=== PATIENT | male | born 1955 | race Caucasian/White ===

== ENCOUNTER 2021-07-11 05:43 | Emergency (ER) | payer MEDICARE, SELFPAY ==
--- NOTE | ~2021-07-11 | CT_ITS ---
EXAMINATION: CT ABDOMEN AND PELVIS WITHOUT CONTRAST CLINICAL INFORMATION: Pain with new onset renal failure. COMPARISON: CT abdomen/pelvis dated from 07/14/2007. TECHNIQUE: Multidetector volumetric imaging was performed from the superior aspect of the liver through the pubic symphysis. Sagittal and coronal reformatted images were obtained on the technologist's workstation. This CT examination was performed using dose optimization techniques as appropriate, variously including the following: *Automated exposure control *Adjustment of mA and/or kV according to patient size (this includes techniques or standardized protocols for targeted exams where dose is matched to indication/reason for exam; i.e. extremities or head) *Use of iterative reconstruction technique DLP: 440 mGy-cm FINDINGS: LUNG BASES: There is a sub solid pulmonary nodule in the left lung base with a solid component measuring 4 mm (90:4). This is new since 2006. There are 2 tiny partially calcified 2 mm nodules in the right base (130:4). LIVER, GALLBLADDER, AND BILIARY TREE: The unenhanced liver is normal in size, shape, and attenuation. There is an indeterminate exophytic nodularity off the inferior surface of the right hepatic lobe measuring 8 mm (112:6) which is new since 2006. There is no biliary ductal dilatation is present. There is hyperdense material in the lumen of the gallbladder, likely representing sludge. No evidence of stones, gallbladder wall thickening, pericholecystic fat stranding or fluid. PANCREAS: Interdigitating intraparenchymal fat without focal lesions. The main pancreatic duct is nondilated. There is no surrounding free fluid and fat stranding. SPLEEN: Unremarkable. ADRENAL GLANDS: Asymmetric enlargement of the left adrenal gland without change. Normal appearance of the right adrenal gland. KIDNEYS AND URETERS: There is bilateral cortical thinning without evidence of hydronephrosis or calculi. In the anterior surface of the upper pole of the left kidney (33:3) there is unchanged prominent/outpouching of the cortex since 2006. In the lateral surface of the upper pole of the right kidney (27, 3) there is a too small to characterize hypodensity which is statistically likely to represent a cyst and requires no further workup. There is mild bilateral perinephric fat stranding. BLADDER: There is borderline diffuse urinary bladder wall thickening without focal abnormalities. There is no significant perivesical fat stranding. GASTROINTESTINAL TRACT: The stomach and the small bowel are nondilated. The appendix is unremarkable. There is no colonic wall thickening or inflammatory bowel changes. There is no bowel obstruction. ABDOMINAL WALL: There are a few soft tissue nodules in the anterior abdominal wall (48:3), possibly representing injection sites. There is no significant abdominal hernia. LYMPH NODES: A few prominent mesenteric lymph nodes measuring up to 4 mm in maximum short axis (33:3) are not significantly changed since 2006. There is no abdominal or pelvic lymphadenopathy by size criteria. A few prominent bilateral inguinal lymph nodes measuring up to 6 mm short axis (left side 79:3) are indeterminate and likely reactive. VASCULAR: There is scattered atherosclerotic disease throughout the abdominal aorta and its branches. There is no aneurysm. PELVIC VISCERA: The prostate gland is enlarged measuring 5.2 x 6.1 cm (AP and TV dimensions). OSSEOUS STRUCTURES: No acute or aggressive osseous abnormalities. Multilevel thoracolumbar spondylosis. CT/CT abdomen pelvis wo con IMPRESSION: 1. No evidence of nephrolithiasis nor hydroureteronephrosis. 2. There is diffuse wall thickening of the urinary bladder which could be related with chronic outlet obstruction in the presence of an enlarged prostate. Correlate clinically for superimposed infectious cystitis. 3. Indeterminate soft tissue nodules in the fat of the lower abdominal wall likely represent injection sites. Correlate with physical examination. 4. Indeterminate nodularity adjacent to the posterior inferior surface of the right hepatic lobe of uncertain significance. If indicated, consider further evaluation with a targeted ultrasound. 5. Incidental noted sub solid left lower lobe pulmonary nodule with a solid component measuring up to 4 mm. Recommend follow-up examination in 3-6 months with a diagnostic chest CT.
[2021-07-11 06:07] VITALS: BP 130/81; BP 170/94; PULSE 106; PULSE 95; RESP 24; TEMP 36; O2SAT 100; O2SAT 99; BMI 31.4
--- NOTE | 2021-07-11 06:46 | ED_ITS ---
HPI - Abdominal Pain General Chief Complaint: Abdominal Pain Time Seen by Provider: 07/11/21 06:36 Source: patient and EMS Mode of arrival: EMS Limitations: no limitations History of Present Illness MD elicited complaint: other (rolling sensation across body) Pertinent past history: other (neurologic undx condition) Onset (ago): year(s) (3) Pain Consistency: constant Location: LUQ and RUQ Severity: moderate Quality: aching Radiation: other (arms) Exacerbating factors: nothing Relieving factors: nothing Context: history of similar episodes (chronic x 3 years, ativan stopped working) Associated symptoms: denies other symptoms Related Data Home Medications Medication Instructions Recorded Confirmed amlodipine 2.5 mg tablet 1 tab PO DAILY 07/11/21 07/11/21 atenolol 100 mg tablet 1 tab PO DAILY 07/11/21 07/11/21 blood sugar diagnostic (FreeStyle 07/11/21 07/11/21 Lite Strips) dextroamphetamine-amphetamine 10 1 tab PO DAILY 07/11/21 07/11/21 mg tablet dextroamphetamine-amphetamine 20 1 tab PO TID 07/11/21 07/11/21 mg tablet duloxetine 60 mg capsule,delayed 1 cap PO QAM 07/11/21 07/11/21 release insulin glargine 100 unit/mL (3 70 unit SUBCUT DAILY 07/11/21 07/11/21 mL) subcutaneous pen (Lantus Solostar U-100 Insulin) levothyroxine 137 mcg tablet 1 tab PO DAILY 07/11/21 07/11/21 lisinopril 20 mg tablet 1 tab PO DAILY 07/11/21 07/11/21 lorazepam 1 mg tablet 1 tab PO TID PRN 07/11/21 07/11/21 pen needle, diabetic 31 gauge x 07/11/21 07/11/21 5/16 (BD Ultra-Fine Short Pen Needle) quetiapine 25 mg tablet 1 tab PO BEDTIME 07/11/21 07/11/21 Allergies Allergy/AdvReac Type Severity Reaction Status Date / Time Penicillins [PENICILLINS] Allergy Unknown RASH Verified 07/11/21 06:26 tramadol [From ULTRAM] Allergy Unknown RASH Verified 07/11/21 06:26 trazodone [TRAZODONE] Allergy Unknown PRIAPISM Verified 07/11/21 06:26 risperidone [RISPERIDONE] AdvReac Severe dizzy, EPS Verified 07/11/21 06:26 Review of Systems Review of Systems Constitutional : No Weight loss, No Fever, No Chills ENT/Mouth : No sore throat, No Rhinorrhea Eyes: No Swelling, No Redness Cardiovascular : No Chest Pain, No SOB, NoEdema Respiratory : No Cough, No Sputum, No Wheezing Gastrointestinal : no Nausea, no Vomiting, no Diarrhea, positive abdominal Pain, No Hematochezia, No Melena Genitourinary : No Dysuria, No Urinary Frequency, No Hematuria, No Urgency Musculoskeletal : No joint pain, No Myalgias, No Joint Swelling Skin : No Skin Lesions, No rash Neuro : No Weakness, No Numbness, No Dizziness, No Headache, pos rolling sensation Psych : No Anxiety/Panic, No Depression Heme/Lymph: No Bruising, No Lymphadenopathy Endocrine : No Polyuria, No Polydipsia All other systems reviewed and are negative. Physical Exam Vital Signs: Vital Signs: Last Vital Signs Temp 96.9 F 07/11/21 10:52 Pulse 100 07/11/21 10:52 Resp 19 07/11/21 10:52 BP 163/88 H 07/11/21 10:52 Pulse Ox 99 07/11/21 10:52 Body Mass Index 31.4 Appearance: Alert. Oriented X3. No acute distress. Anxious Eyes: Pupils equal, round and reactive to light. ENT: Pharynx normal. Neck: Normal inspection. Neck supple. CVS: Normal heart rate and rhythm. Pulses normal. Respiratory: No respiratory distress. Breath sounds normal. Abdomen: Soft and nontender. Skin: Skin warm and dry. Normal skin color. Normal skin turgor. Extremities: No lower extremity edema. No calf ttp Neuro: Oriented X 3. No motor deficit. No sensory deficit. Course Course Course Narrative: I initially thought that the patient was here looking for help and trying new medications for his neurological issue - he is now screaming at the staff because he was ordered benadryl and zyprexa instead of ativan. I spoke very firmly with the patient and told him we will try the bendaryl and zyprexa and that he stated ativan doesn't help him the patient is now intermittently crying, then seems okay, he is rapidly fluct uating in his emotions - consult to CARE team ordered. labs returned - increase in CKD - call to she is unsure of baseline CKD - notes labs done at [facility] will call for records, given labs I have added on fluids, additional labs, CT scan for obstruction Cr 2.9 on 07/11/21 at [facility] will admit for DONIS on CKD possible cystitis - t this time possible infection suspected 1150am - IV rocephin ordered patient aware of DONIS on CKD and possible UTI, he is going to be admitted and agrees patient had to wait a little bit for ativan for another episode he became very upset and demanded to leave he is alert and oriented x 3, walked out with a steady gait, would not wait for instructions MDM - Abdominal Pain MDM Narrative Medical decision making narrative: 66 yo male with DM, anxiety, here with neur ologic condition being worked up at [facility] x 3 years - relates something about 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 At this time he has no new symptoms or changes just looking for anxiolytic medications to help him sleep. Will try benadryl and zyprexa - obtain basic labs. Lab Data Result diagrams: 07/11/21 08:10 07/11/21 08:10 Labs: Lab Results 07/11/21 07/11/21 07/11/21 Range/Units 08:10 08:10 09:19 WBC 15.8 H (4.8-10.8) X10*3/uL RBC 4.87 (4.60-5.80) X10*6/uL Hgb 14.1 (14.0-18.0) g/dl Hct 41.2 L (42-52) % MCV 84.6 (80-98) fL MCH 29.0 (27.0-33.0) pg MCHC 34.2 (31.0-36.0) g/dl RDW 14.6 (11.0-16.0) % Plt Count 418 H (160-400) X10*3/uL MPV 10.0 (9.4-12.4) fL Immature Gran % (Auto) 0.4 (0.0-0.4) % Neut % (Auto) 75.9 H (45-73) % Lymph % (Auto) 15.1 L (20-40) % [place] % (Auto) 6.6 (2-11) % Eos % (Auto) 1.2 (0-4) % Baso % (Auto) 0.8 (0-2) % Lymph # (Auto) 2.4 (1.2-4.9) X10*3/uL [place] # (Auto) 1.1 (0.1-1.2) X10*3/uL Eos # (Auto) 0.2 (0.0-0.4) X10*3/uL Baso # (Auto) 0.1 (0.0-0.2) X10*3/uL Abs Immat Gran (auto) 0.07 H (0.00-0.03) X10*3/uL Absolute Neuts (auto) 12.0 H (2.0-8.3) X10*3/uL Absolute Nucleated RBC 0.000 (0.0-0.012) X10*3/uL Nucleated RBC % (auto) 0.0 (0.0-0.2) /100WBC VBG pH (7.32-7.43) VBG pCO2 mmHg VBG pO2 mmHg VBG HCO3 (22-26) mmol/L VBG O2 Saturation % VBG Base Excess mmol/L Sodium 138 (135-145) mmol/L Potassium 6.4 H* (3.3-5.1) mmol/L Chloride 107 (96-108) mmol/L Carbon Dioxide 15 L (22-29) mmol/L Anion Gap 22 H (12-20) BUN 39 H (9-16) mg/dL Creatinine 3.79 H (0.5-1.4) mg/dL Estim Creat Clear Calc 20.3 Estimated GFR 16 Random Glucose 118 H (60-115) mg/dL Lactic Acid (0.5-2.0) mmol/L Calcium 9.5 (8.4-10.2) mg/dL Magnesium 2.1 (1.6-2.6) mg/dL Total Bilirubin 0.7 (0.0-1.0) mg/dL Direct Bilirubin 0.2 (0.0-0.5) mg/dL AST 13 (5-37) U/L ALT 6 (0-40) U/L Alkaline Phosphatase 113 (39-117) U/L Total Creatine Kinase 42 (38-174) U/L Total Protein 7.4 (6.5-8.0) g/dL Albumin 4.5 (3.5-5.0) g/dL Lipase 31 (8-78) U/L Urine Color Urine Appearance Urine pH (5.0-8.0) Ur Specific [place] (1.005-1.025) Urine Protein (NEG-TRACE) MG/DL Urine Glucose (UA) (NEG) MG/DL Urine Ketones (NEG) MG/DL Urine Blood (NEG) Urine Nitrite (NEG) Ur Leukocyte Esterase (NEG) Urine RBC (0) /HPF Urine WBC (0-4) /HPF Ur Squamous Epith Cells /LPF Urine Bacteria /LPF Granular Casts /LPF Salicylates < 5.0 L (15-30) mg/dL Ethyl Alcohol mg/dL Acetone, Qual (Negative) COVID-19 (SUNITHA) (Negative) COVID-19 Clin Com 07/11/21 07/11/21 07/11/21 Range/Units 09:19 09:19 09:19 WBC (4.8-10.8) X10*3/uL RBC (4.60-5.80) X10*6/uL Hgb (14.0-18.0) g/dl Hct (42-52) % MCV (80-98) fL MCH (27.0-33.0) pg MCHC (31.0-36.0) g/dl RDW (11.0-16.0) % Plt Count (160-400) X10*3/uL MPV (9.4-12.4) fL Immature Gran % (Auto) (0.0-0.4) % Neut % (Auto) (45-73) % Lymph % (Auto) (20-40) % [place] % (Auto) (2-11) % Eos % (Auto) (0-4) % Baso % (Auto) (0-2) % Lymph # (Auto) (1.2-4.9) X10*3/uL [place] # (Auto) (0.1-1.2) X10*3/uL Eos # (Auto) (0.0-0.4) X10*3/uL Baso # (Auto) (0.0-0.2) X10*3/uL Abs Immat Gran (auto) (0.00-0.03) X10*3/uL Absolute Neuts (auto) (2.0-8.3) X10*3/uL Absolute Nucleated RBC (0.0-0.012) X10*3/uL Nucleated RBC % (auto) (0.0-0.2) /100WBC VBG pH (7.32-7.43) VBG pCO2 mmHg VBG pO2 mmHg VBG HCO3 (22-26) mmol/L VBG O2 Saturation % VBG Base Excess mmol/L Sodium (135-145) mmol/L Potassium (3.3-5.1) mmol/L Chloride (96-108) mmol/L Carbon Dioxide (22-29) mmol/L Anion Gap (12-20) BUN (9-16) mg/dL Creatinine (0.5-1.4) mg/dL Estim Creat Clear Calc Estimated GFR Random Glucose (60-115) mg/dL Lactic Acid 2.0 (0.5-2.0) mmol/L Calcium (8.4-10.2) mg/dL Magnesium (1.6-2.6) mg/dL Total Bilirubin (0.0-1.0) mg/dL Direct Bilirubin (0.0-0.5) mg/dL AST (5-37) U/L ALT (0-40) U/L Alkaline Phosphatase (39-117) U/L Total Creatine Kinase (38-174) U/L Total Protein (6.5-8.0) g/dL Albumin (3.5-5.0) g/dL Lipase (8-78) U/L Urine Color Urine Appearance Urine pH (5.0-8.0) Ur Specific [place] (1.005-1.025) Urine Protein (NEG-TRACE) MG/DL Urine Glucose (UA) (NEG) MG/DL Urine Ketones (NEG) MG/DL Urine Blood (NEG) Urine Nitrite (NEG) Ur Leukocyte Esterase (NEG) Urine RBC (0) /HPF Urine WBC (0-4) /HPF Ur Squamous Epith Cells /LPF Urine Bacteria /LPF Granular Casts /LPF Salicylates (15-30) mg/dL Ethyl Alcohol < 10 mg/dL Acetone, Qual Negative (Negative) COVID-19 (SUNITHA) (Negative) COVID-19 Clin Com 09/23/21 09/23/21 09/23/21 Range/Units 09:30 09:57 11:05 WBC (4.8-10.8) X10*3/uL RBC (4.60-5.80) X10*6/uL Hgb (14.0-18.0) g/dl Hct (42-52) % MCV (80-98) fL MCH (27.0-33.0) pg MCHC (31.0-36.0) g/dl RDW (11.0-16.0) % Plt Count (160-400) X10*3/uL MPV (9.4-12.4) fL Immature Gran % (Auto) (0.0-0.4) % Neut % (Auto) (45-73) % Lymph % (Auto) (20-40) % [place] % (Auto) (2-11) % Eos % (Auto) (0-4) % Baso % (Auto) (0-2) % Lymph # (Auto) (1.2-4.9) X10*3/uL [place] # (Auto) (0.1-1.2) X10*3/uL Eos # (Auto) (0.0-0.4) X10*3/uL Baso # (Auto) (0.0-0.2) X10*3/uL Abs Immat Gran (auto) (0.00-0.03) X10*3/uL Absolute Neuts (auto) (2.0-8.3) X10*3/uL Absolute Nucleated RBC (0.0-0.012) X10*3/uL Nucleated RBC % (auto) (0.0-0.2) /100WBC VBG pH 7.35 (7.32-7.43) VBG pCO2 27 mmHg VBG pO2 46 mmHg VBG HCO3 15 L (22-26) mmol/L VBG O2 Saturation 74.0 % VBG Base Excess -8.6 mmol/L Sodium (135-145) mmol/L Potassium (3.3-5.1) mmol/L Chloride (96-108) mmol/L Carbon Dioxide (22-29) mmol/L Anion Gap (12-20) BUN (9-16) mg/dL Creatinine (0.5-1.4) mg/dL Estim Creat Clear Calc Estimated GFR Random Glucose (60-115) mg/dL Lactic Acid (0.5-2.0) mmol/L Calcium (8.4-10.2) mg/dL Magnesium (1.6-2.6) mg/dL Total Bilirubin (0.0-1.0) mg/dL Direct Bilirubin (0.0-0.5) mg/dL AST (5-37) U/L ALT (0-40) U/L Alkaline Phosphatase (39-117) U/L Total Creatine Kinase (38-174) U/L Total Protein (6.5-8.0) g/dL Albumin (3.5-5.0) g/dL Lipase (8-78) U/L Urine Color YELLOW Urine Appearance CLEAR Urine pH 6.0 (5.0-8.0) Ur Specific [place] 1.025 (1.005-1.025) Urine Protein 3+ H (NEG-TRACE) MG/DL Urine Glucose (UA) NEG (NEG) MG/DL Urine Ketones 15 (NEG) MG/DL Urine Blood TRACE (NEG) Urine Nitrite NEG (NEG) Ur Leukocyte Esterase NEG (NEG) Urine RBC 0-2 (0) /HPF Urine WBC 1-4 (0-4) /HPF Ur Squamous Epith Cells 1+ /LPF Urine Bacteria NONE /LPF Granular Casts 0-2 /LPF Salicylates (15-30) mg/dL Ethyl Alcohol mg/dL Acetone, Qual (Negative) COVID-19 (SUNITHA) Negative (Negative) COVID-19 Clin Com See Note ECG Data Attestation: I personally reviewed and interpreted this ECG as follows: ECG interpretation date: 07/11/21 ECG interpretation time: 09:35 Interpretation: Rate: 94 Rhythm: NSR Reyno: left Normal P waves. Normal FILEMON. Normal QRS complex. ST T wave : normal no LUANN qTC: normal prior studies: no acute ischemia The study has been interpreted contemporaneously by me. . Discharge Plan Discharge Clinical Impression: Hallucinations of tactile sensation, Acute kidney injury superimposed on chronic kidney disease, Acute hyperkalemia, Cystitis Patient Disposition: Left Against Medical Advice Instructions: Nonpsychiatric Hallucinations (ED) Additional Instructions: return to ED for any worsening symptoms or concerns follow up with your provider tomorrow Prescriptions: No Action quetiapine 25 mg tablet 1 tab PO BEDTIME RF: 0 levothyroxine 137 mcg tablet 1 tab PO DAILY RF: 0 atenolol 100 mg tablet 1 tab PO DAILY RF: 0 lisinopril 20 mg tablet 1 tab PO DAILY RF: 0 dextroamphetamine-amphetamine 10 mg tablet 1 tab PO DAILY RF: 0 amlodipine 2.5 mg tablet 1 tab PO DAILY RF: 0 (DME) FreeStyle Lite Strips Strip MISCELLANEOUS TID RF: 0 dextroamphetamine-amphetamine 20 mg tablet 1 tab PO TID RF: 0 lorazepam 1 mg tablet 1 tab PO TID PRN (Reason: Anxiety) RF: 0 (DME) pen needle, diabetic [BD Ultra-Fine Short Pen Needle] 31 gauge x 5/16 needle subcut DAILY RF: 0 duloxetine 60 mg capsule,delayed release(DR/EC) 1 cap PO QAM RF: 0 Lantus Solostar U-100 Insulin 100 unit/mL (3 mL) insulin pen 70 unit subcut DAILY RF: 0 Stand Alone Forms: Against Medical Advice [facility] Past Medical History Attestation statement: The following information was validated with the patient. Medical History Diabetes HTN (hypertension) Kidney failure Social History Social History Alcohol intake: never Patient Tobacco Use Status: Never used Tobacco Use of substances other than those prescribed or required for medical reasons: Yes Advance Directives: No Advance Directives Information Provided: No
[2021-07-11] MEDS: diphenhydrAMINE HCL 25 MG TABLET PO (07:24)
[2021-07-11] MEDS: OLANZapine 5 MG TABLET PO (07:24)
[2021-07-11 08:30] LABS: MANUAL DIFF FLAG NO
[2021-07-11 08:33] LABS: Basophils Absolute Auto 0.1 X10*3/uL (0.0-0.2); Basophils Percent Auto 0.8 % (0-2); Eosinophils Absolute Auto 0.2 X10*3/uL (0.0-0.4); Eosinophils Percent Auto 1.2 % (0-4); Hematocrit 41.2 % (42-52); Hemoglobin 14.1 g/dl (14.0-18.0); Imm Gran Abs Auto 0.07 X10*3/uL (0.00-0.03); Imm Gran Pct Auto 0.4 % (0.0-0.4); Lymphocytes Absolute Auto 2.4 X10*3/uL (1.2-4.9); Lymphocytes Percent Auto 15.1 % (20-40); Mean Corpuscular HGB Conc 34.2 g/dl (31.0-36.0); Mean Corpuscular Volume 84.6 fL (80-98); Monocytes Absolute Auto 1.1 X10*3/uL (0.1-1.2); Monocytes Percent Auto 6.6 % (2-11); Neutrophils Percent Auto 75.9 % (45-73); Platelet Count 418 X10*3/uL (160-400); Red Blood Count 4.87 X10*6/uL (4.60-5.80); Red Cell Distribution Width 14.6 % (11.0-16.0); White Blood Count 15.8 X10*3/uL (4.8-10.8)
[2021-07-11 09:02] LABS: Alanine Aminotransferase 6 U/L (0-40); Albumin Level 4.5 g/dL (3.5-5.0); Alkaline Phosphatase 113 U/L (39-117); Anion Gap 22 (12-20); Aspartate Amino Transferase 13 U/L (5-37); Bilirubin Direct 0.2 mg/dL (0.0-0.5); Bilirubin Total 0.7 mg/dL (0.0-1.0); Blood Urea Nitrogen 39 mg/dL (9-16); Calcium 9.5 mg/dL (8.4-10.2); Carbon Dioxide 15 mmol/L (22-29); Chloride 107 mmol/L (96-108); Creatinine Clr Calc Pharmacy 20.3; Estimated Glomerular Filt Rate 16; Glucose Random 118 mg/dL (60-115); Lipase 31 U/L (8-78); Magnesium 2.1 mg/dL (1.6-2.6); Potassium 6.4 mmol/L (3.3-5.1); Sodium 138 mmol/L (135-145); Total Protein 7.4 g/dL (6.5-8.0)
--- NOTE | 2021-07-11 09:10 | ECG_ITS ---
Test Reason : GENERAL MEDICINE Blood Pressure : / mmHG Vent. Rate : 094 BPM Atrial Rate : 094 BPM P-R Int : 140 ms QRS Dur : 078 ms QT Int : 364 ms P-R-T Axes : 027 -08 021 degrees QTc Int : 455 ms Normal sinus rhythm Normal ECG When compared with ECG of 06-JUN-2015 17:56, No significant change was found Referred By: Theresa Solorio Electronically Signed By:MAO KATHLEEN
[2021-07-11 09:34] LABS: VBG Base Excess -8.6 mmol/L; VBG HCO3 15 mmol/L (22-26); VBG pCO2 27 mmHg; VBG pH 7.35 (7.32-7.43); VBG pO2 46 mmHg
[2021-07-11 09:36] LABS: Venous Blood Gas Refer to POC result
[2021-07-11 09:41] LABS: Acetone, serum QL Negative (Negative)
[2021-07-11 09:45] LABS: Ethanol < 10 mg/dL
[2021-07-11 09:53] LABS: Salicylate < 5.0 mg/dL (15-30)
[2021-07-11 10:26] LABS: COVID-19 Test Negative (Negative)
[2021-07-11] MEDS: Calcium Gluconate/NaCl,Iso-Osm 2 GM/100 ML PLAST..BAG IV (10:35)
[2021-07-11] MEDS: 0.9 % Sodium Chloride 1,000 ML 999 ML IV ×2 (10:35→10:36)
[2021-07-11 10:52] VITALS: BP 163/88; PULSE 100; RESP 19; TEMP 36.1; O2SAT 99
[2021-07-11 11:15] LABS: Appearance Urine CLEAR; Color Urine YELLOW; Glucose Urine UA NEG (NEG); Leukocyte Esterase Urine NEG (NEG); Nitrite Urine NEG (NEG); Specific Gravity - Urine 1.025 (1.005-1.025); UACC Culture Trigger NO; Urine Blood TRACE (NEG); Urine Ketones 15 MG/DL (NEG); Urine Protein 3+ MG/DL (NEG-TRACE)
[2021-07-11 12:16] LABS: RBC Urine 0-2 /HPF (0); Squamous Epithelial Cell Urine 1+ /LPF
[2021-07-11 12:17] LABS: Granular Casts Urine 0-2 /LPF
[2021-07-11] MEDS: Sodium Zirconium Cyclosilicate 5 GM POWD.PACK PO (12:23)
== END 2021-07-11 12:56 | disposition left against medical advice (07) ==
PROVIDERS: Emergency Provider Emergency Medicine; PCP Family Medicine
DX: R44.2 Other hallucinations (principal); N18.9 Chronic kidney disease, unspecified; E87.5 Hyperkalemia; R10.12 Left upper quadrant pain; R10.11 Right upper quadrant pain; Z20.822 Contact with and (suspected) exposure to COVID-19; Z79.899 Other long term (current) drug therapy
CPT/HCPCS: 36415; 74176; 80048; 80076; 80179; 81001; 82009; 82077; 82550; 82803; 83605; 83690; 83735; 85025; 87040; 87635; 93005; 96361; 96365; 96366; 99284; J0610; Q0163

== ENCOUNTER 2023-09-03 02:17 | Inpatient (IN) | payer MEDICARE, SELFPAY ==
[2023-09-03] VITALS (15 sets, daily range): BP systolic 133–185; BP diastolic 62–106; PULSE 68–97; RESP 14–32; TEMP 36.3–37.5; O2SAT 95–100; BMI 31.1; BMI 31.9
--- NOTE | ~2023-09-03 | XR_ITS ---
EXAMINATION: XR CHEST CLINICAL INFORMATION: Shortness of breath. COMPARISON: None available. TECHNIQUE: Frontal view of the chest was obtained. FINDINGS: The cardiomediastinal silhouette is normal. There is mild perihilar increased markings. There is a questionable opacity overlying the right upper lung field and anterior right first rib. The lungs are otherwise clear. The bony structures and soft tissues are unremarkable. XR/XR chest 1V IMPRESSION: Mild perihilar increased markings may be chronic versus related to bronchitis. Questionable right upper lobe opacity along the anterior right rib. Recommend a dedicated PA and lateral chest with apical lordotic views.
--- NOTE | ~2023-09-03 | XR_ITS ---
EXAMINATION: XR CHEST CLINICAL INFORMATION: Questionable upper lobe opacity COMPARISON: CXR from 09/03/2023 TECHNIQUE: 2 views of the chest were obtained. FINDINGS: Lungs are clear. No pulmonary mass or pleural effusion. The right diaphragm is mildly elevated. Cardiac silhouette has normal size and contour. Pulmonary vascular pattern is normal. There is symmetric appearance of mild osseous hypertrophy at anterior first ribs. No suspicious osseous lesions. XR/XR chest 2V IMPRESSION: No evidence of a right upper lobe pulmonary abnormality.
--- NOTE | 2023-09-03 02:26 | ECG_ITS ---
Test Reason : SHORTNESS OF BREATH Blood Pressure : / mmHG Vent. Rate : 091 BPM Atrial Rate : 091 BPM P-R Int : 152 ms QRS Dur : 090 ms QT Int : 378 ms P-R-T Axes : 034 -34 045 degrees QTc Int : 464 ms Normal sinus rhythm Left anterior fascicular block Intra-ventricular conduction delay Nonspecific ST abnormality Abnormal ECG When compared with ECG of 11-JUL-2021 09:29, Left anterior fascicular block is new Nonspecific ST abnormality is new Referred By: Karime Greenfield Electronically Signed By:SANTOS JETT MD
--- NOTE | 2023-09-03 02:47 | PC.NURSE ---
Assumed care of pt. Pt endorsing dyspnea x 5 days, worse this pm. Titrated EMS O2 down from 4L to 2L with good efffect. Labs, IV, CXR all without complication at this time.
[2023-09-03 02:54] LABS: MANUAL DIFF FLAG NO
[2023-09-03 02:56] LABS: Basophils Absolute Auto 0.1 X10*3/uL (0.0-0.2); Basophils Percent Auto 0.4 % (0-2); Eosinophils Percent Auto 0.3 % (0-4); Hematocrit 30.9 % (42.0-52.0); Hemoglobin 10.6 g/dl (14.0-18.0); Imm Gran Abs Auto 0.06 X10*3/uL (0.00-0.03); Imm Gran Pct Auto 0.4 % (0.0-0.4); Lymphocytes Absolute Auto 0.7 X10*3/uL (1.2-4.9); Lymphocytes Percent Auto 4.8 % (20-40); Mean Corpuscular HGB Conc 34.3 g/dl (31.0-36.0); Mean Corpuscular Volume 93.4 fL (80.0-98.0); Mean Platelet Volume 10.1 fL (9.4-12.4); Monocytes Percent Auto 7.3 % (2-11); Neutrophils Absolute Auto 12.2 x10*3/uL (2.0-8.3); Neutrophils Percent Auto 86.8 % (45-73); Platelet Count 169 X10*3/uL (160-400); Red Blood Count 3.31 X10*6/uL (4.60-5.80); Red Cell Distribution Width 13.5 % (11.0-16.0)
--- NOTE | 2023-09-03 03:00 | ED.SOB ---
HPI - SOB/Dyspnea General Chief Complaint: Dyspnea Stated Complaint: sob Time Seen by Provider: 09/03/23 02:26 Source: patient Mode of arrival: EMS History of Present Illness HPI Narrative: 68-year-old male who is brought in by EMS for worsening shortness of breath since Thursday. Patient is end-stage renal disease and currently is supposed to be receiving dialysis Thursday/Thursday / Thursday but states he is missed the last 3 appointments due to chronic pain. He denies any nausea, vomiting, fever or chills. Related Data Home Medications Medication Instructions Recorded Confirmed amlodipine 2.5 mg tablet 1 tab PO DAILY 07/11/21 07/11/21 atenolol 100 mg tablet 1 tab PO DAILY 07/11/21 07/11/21 blood sugar diagnostic (FreeStyle 07/11/21 07/11/21 Lite Strips) dextroamphetamine-amphetamine 10 1 tab PO DAILY 07/11/21 07/11/21 mg tablet dextroamphetamine-amphetamine 20 1 tab PO TID 07/11/21 07/11/21 mg tablet duloxetine 60 mg capsule,delayed 1 cap PO QAM 07/11/21 07/11/21 release insulin glargine 100 unit/mL (3 70 unit subcut DAILY 07/11/21 07/11/21 mL) subcutaneous pen (Lantus Solostar U-100 Insulin) levothyroxine 137 mcg tablet 1 tab PO DAILY 07/11/21 07/11/21 lisinopril 20 mg tablet 1 tab PO DAILY 07/11/21 07/11/21 lorazepam 1 mg tablet 1 tab PO TID PRN Anxiety 07/11/21 07/11/21 pen needle, diabetic 31 gauge x 07/11/21 07/11/21 5/16 (BD Ultra-Fine Short Pen Needle) quetiapine 25 mg tablet 1 tab PO BEDTIME 07/11/21 07/11/21 Allergies Allergy/AdvReac Type Severity Reaction Status Date / Time Penicillins [PENICILLINS] Allergy Unknown RASH Verified 07/11/21 06:26 tramadol [From ULTRAM] Allergy Unknown RASH Verified 07/11/21 06:26 trazodone [TRAZODONE] Allergy Unknown PRIAPISM Verified 07/11/21 06:26 risperidone [RISPERIDONE] AdvReac Severe dizzy, EPS Verified 07/11/21 06:26 Review of Systems Review of Systems: Pertinent positives and negatives as stated in HPI [facility] Past Medical History Source: nursing notes reviewed Medical History Diabetes Kidney failure HTN (hypertension) Social History Social History Alcohol intake: never Patient Tobacco Use Status: Never used Tobacco Smoked in Last 30 Days: No Use of substances other than those prescribed or required for medical reasons: No Advance Directives: No Advance Directives Information Provided: Yes Physical Exam Vital Signs: Vital Signs: Last Vital Signs Temp 99.5 F 09/03/23 02:31 Pulse 94 09/03/23 02:31 Resp 18 09/03/23 02:31 Pulse Ox 99 09/03/23 02:31 O2 Del Method Nasal Cannula 09/03/23 02:31 Oxygen Flow Rate 2 09/03/23 02:31 BMI result Body Mass Index 31.1 VITAL SIGNS: Reviewed. GENERAL: Well developed, well nourished, in no acute distress. HEAD: Normocephalic/atraumatic EYES: PERRLA, EOMI EARS: Ext canals without abnormality NOSE: Nares patent bilateral OROPHARYNX: no oral lesions noted, posterior pharynx clear NECK: Supple, no adenopathy LUNGS: Normal breath sounds. No adventitious sounds or accessory muscle use. SpO2<99> CARDIOVASCULAR: Regular rate and rhythm without noted murmurs, no JVD or lower extremity edema. ABDOMEN: Soft, non-tender, non-distended with bowel sounds. MUSCULOSKELETAL: No tenderness, deformities, or effusions noted on gross inspection. EXTREMITIES: No cyanosis, clubbing or edema. SKIN: Inspection of the skin reveals no rashes NEUROLOGIC: Alert and oriented x 4. Strength and sensation to light touch were grossly intact x 4. Medications Administered Discontinued Medications Generic Name Dose Route Start Last Admin Trade Name Freq PRN Reason Stop Dose Admin Calcium Gluconate 2 gm in 100 mls @ 400 mls/hr 09/03/23 03:51 09/03/23 04:03 Calcium Gluconate IV 09/03/23 04:05 400 mls/hr ONCE ONE Administration Medical Decision Making Medical Decision Making MDM Narrative: 68-year-old male with history and clinical presentation, DDX: pulmonary edema secondary to poor compliance with dialysis schedule, pneumonia, but doubt ACS I reviewed all investigations and hematologic indices are consistent with a baseline leukocytosis, patient is afebrile and I do not appreciate any acute findings on chest x-ray to suggest pneumonia. Patient does have a normocytic anemia that is attributable to anemia of chronic disease (ESRD ) as there is no history and no clinical findings to otherwise suggest a current bleeding source. coagulation studies demonstrated PT-13.5 but in INR within normal limits. Chemistry and sees consistent with evidence to suggest mild dehydration, patient's potassium is significantly elevated at 7 with a creatinine of 16.73 and a BUN of 118 clearly demonstrating the degree of derangement secondary to missing 3 sessions of dialysis. high sensitivity troponin although detectable in elevated at 58.4, patient does not describe chest pain and I do not find any acute changes on the EKG and suspect that this is a reflection of patient's worsening kidney function. There is no sepsis, there is no infection. Do not appreciate an infiltrate on chest x-ray and patient is afebrile. 0352: Contacting Nephrology, patient's nursing consultant is Dr. Ulloa, for urgent dialysis, in the meantime will provide calcium gluconate. 0400: I discussed with comprehensive ophthalmologist who accepts admission. Differential Diagnosis Differential Diagnoses: The differential diagnosis associated with the presentation includes please see the discussion above Admission/Observation Consideration of admission/observation: Escalation of care including admission/observation considered please see the discussion above Consult Healthcare Provider Management of the patient was discussed with: Psychiatric Technician Assistant Please see the discussion above Lab Data MDM Lab Attestation statement: I reviewed the patient's lab results. please see the discussion above 09/03/23 02:46 09/03/23 02:45 Labs: Lab Results 09/03/23 09/03/23 09/03/23 Range/Units 02:45 02:46 02:47 WBC 14.0 H (4.8-10.8) X10*3/uL RBC 3.31 L (4.60-5.80) X10*6/uL Hgb 10.6 L (14.0-18.0) g/dl Hct 30.9 L (42.0-52.0) % MCV 93.4 (80.0-98.0) fL MCH 32.0 (27.0-33.0) pg MCHC 34.3 (31.0-36.0) g/dl RDW 13.5 (11.0-16.0) % Plt Count 169 (160-400) X10*3/uL MPV 10.1 (9.4-12.4) fL Immature Gran % (Auto) 0.4 (0.0-0.4) % Neut % (Auto) 86.8 H (45-73) % Lymph % (Auto) 4.8 L (20-40) % [place] % (Auto) 7.3 (2-11) % Eos % (Auto) 0.3 (0-4) % Baso % (Auto) 0.4 (0-2) % Lymph # (Auto) 0.7 L (1.2-4.9) X10*3/uL [place] # (Auto) 1.0 (0.1-1.2) X10*3/uL Eos # (Auto) 0.0 (0.0-0.4) X10*3/uL Baso # (Auto) 0.1 (0.0-0.2) X10*3/uL Abs Immat Gran (auto) 0.06 H (0.00-0.03) X10*3/uL Absolute Neuts (auto) 12.2 H (2.0-8.3) x10*3/uL Absolute Nucleated RBC 0.000 (0.0-0.012) X10*3/uL Nucleated RBC % (auto) 0.0 (0.0-0.2) /100WBC PT 13.5 H (11.1-13.3) SEC INR 1.1 (0.9-1.1) Sodium 134 L (135-145) mmol/L Potassium 7.0 H* (3.3-5.1) mmol/L Chloride 95 L (96-108) mmol/L Carbon Dioxide 17 L (22-29) mmol/L Anion Gap 29 H (12-20) BUN 118 H (9-16) mg/dL Creatinine 16.73 H* (0.5-1.4) mg/dL Estim Creat Clear Calc 4.4 Estimated GFR 3 Random Glucose 106 (60-115) mg/dL Lactic Acid 1.3 (0.5-2.0) mmol/L Calcium 9.1 (8.4-10.2) mg/dL Total Bilirubin 1.1 H (0.0-1.0) mg/dL AST 18 (5-37) U/L ALT 8 (0-40) U/L Alkaline Phosphatase 61 (39-117) U/L Troponin I High Sens 58.4 H (<3.5-35.0) ng/L Total Protein 7.7 (6.5-8.0) g/dL Albumin 4.3 (3.5-5.0) g/dL Influenza Type A (PCR) (Negative) Influenza Type B (PCR) (Negative) RSV RNA Qual (PCR) (Negative) SARS-CoV-2 RNA (RT-PCR) (Negative) 09/03/23 Range/Units 02:49 WBC (4.8-10.8) X10*3/uL RBC (4.60-5.80) X10*6/uL Hgb (14.0-18.0) g/dl Hct (42.0-52.0) % MCV (80.0-98.0) fL MCH (27.0-33.0) pg MCHC (31.0-36.0) g/dl RDW (11.0-16.0) % Plt Count (160-400) X10*3/uL MPV (9.4-12.4) fL Immature Gran % (Auto) (0.0-0.4) % Neut % (Auto) (45-73) % Lymph % (Auto) (20-40) % [place] % (Auto) (2-11) % Eos % (Auto) (0-4) % Baso % (Auto) (0-2) % Lymph # (Auto) (1.2-4.9) X10*3/uL [place] # (Auto) (0.1-1.2) X10*3/uL Eos # (Auto) (0.0-0.4) X10*3/uL Baso # (Auto) (0.0-0.2) X10*3/uL Abs Immat Gran (auto) (0.00-0.03) X10*3/uL Absolute Neuts (auto) (2.0-8.3) x10*3/uL Absolute Nucleated RBC (0.0-0.012) X10*3/uL Nucleated RBC % (auto) (0.0-0.2) /100WBC PT (11.1-13.3) SEC INR (0.9-1.1) Sodium (135-145) mmol/L Potassium (3.3-5.1) mmol/L Chloride (96-108) mmol/L Carbon Dioxide (22-29) mmol/L Anion Gap (12-20) BUN (9-16) mg/dL Creatinine (0.5-1.4) mg/dL Estim Creat Clear Calc Estimated GFR Random Glucose (60-115) mg/dL Lactic Acid (0.5-2.0) mmol/L Calcium (8.4-10.2) mg/dL Total Bilirubin (0.0-1.0) mg/dL AST (5-37) U/L ALT (0-40) U/L Alkaline Phosphatase (39-117) U/L Troponin I High Sens (<3.5-35.0) ng/L Total Protein (6.5-8.0) g/dL Albumin (3.5-5.0) g/dL Influenza Type A (PCR) NEGATIVE (Negative) Influenza Type B (PCR) NEGATIVE (Negative) RSV RNA Qual (PCR) NEGATIVE (Negative) SARS-CoV-2 RNA (RT-PCR) NEGATIVE (Negative) Independent Interpretation I performed an independent interpretation of an: EKG Interpretation: normal sinus rhythm, HR - 91, no STEMI, RI/QRS /QTC is within normal limits. Radiology Impression Discussion of test interpretation with radiology: I have reviewed the radiologist's reading. Radiologist Impression: please see the discussion above External Record Review External record reviewed: Outpatient record, Prior outpatient labs and Prior outpatient radiology Chronic Conditions Patient?s care impacted by: Diabetes, Hypertension and Other ESRD on dialysis Critical Care Time Critical Care Time Critical Care Time: Yes Total Critical Care Time: 60 Attestation: I personally attest to this time spent taking care of the patient. Discharge Plan Discharge Clinical Impression: DONIS (acute kidney injury), Hyperkalemia, Dyspnea, ESRD needing dialysis Patient Disposition: Admitted As Inpatient
[2023-09-03 03:01] LABS: INTERNATIONAL NORM RATIO 1.1 (0.9-1.1); Prothrombin Time 13.5 SEC (11.1-13.3)
[2023-09-03 03:10] LABS: Lactic Acid 1.3 mmol/L (0.5-2.0)
[2023-09-03 03:17] LABS: Troponin-I High Sensitivity 58.4 ng/L (<3.5-35.0)
[2023-09-03 03:24] LABS: Alanine Aminotransferase 8 U/L (0-40); Albumin Level 4.3 g/dL (3.5-5.0); Alkaline Phosphatase 61 U/L (39-117); Anion Gap 29 (12-20); Aspartate Amino Transferase 18 U/L (5-37); Bilirubin Total 1.1 mg/dL (0.0-1.0); Blood Urea Nitrogen 118 mg/dL (9-16); Calcium 9.1 mg/dL (8.4-10.2); Carbon Dioxide 17 mmol/L (22-29); Chloride 95 mmol/L (96-108); Creatinine Clr Calc Pharmacy 4.4; Estimated Glomerular Filt Rate 3; Glucose Random 106 mg/dL (60-115); Sodium 134 mmol/L (135-145); Total Protein 7.7 g/dL (6.5-8.0)
[2023-09-03 03:36] LABS: Influenza A PCR NEGATIVE (Negative); Influenza B PCR NEGATIVE (Negative); Resp Syncy Virus RNA Qual PCR NEGATIVE (Negative); SARS COV2 PCR INHOUSE NEGATIVE (Negative)
[2023-09-03] MEDS: Calcium Gluconate/NaCl,Iso-Osm 2 GM/100 ML PLAST..BAG IV (04:03)
--- NOTE | 2023-09-03 04:13 | PC.NURSE ---
Pt sts dry weight to be 184lbs.
--- NOTE | 2023-09-03 04:32 | PM.CCHP ---
History of Present Illness Date of Service: 09/03/23 Attending physician on admission: Alessandro Boss Chief Complaint: Dyspnea The patient is a 68-year-old male with a past medical history of end-stage renal disease on dialysis Thursday/Thursday/Thursday, diabetes mellitus,? hypertension, and? anxiety who presented to the emergency room with dyspnea.? Patient reports missing 3 dialysis? due to chronic pain abdominal and back pain.? He reports he misses couple dialysis sessions but never missed 3 in a row.? ? Vital signs stable at emergency room.? Laboratory data was significant for? WBC 14,? potassium 7, chloride 95, serum bicarb 17, anion gap 29, BUN 118, creatinine 16.73, troponin 58.4 I MAGING:? CHEST X-RAY:? consistent with pulmonary congestion EKG? normal sinus rhythm with peaked T-waves ? ED course:? ?The patient received 2 g of calcium gluconate Review of Systems Constitutional: Constitutional: Denies chills, Denies fatigue, Denies fever(s) and Denies weakness Eyes: Eyes: Denies change in vision Cardiovascular: Cardiovascular: Denies chest pain and Reports dyspnea on exertion Respiratory: Respiratory: Reports cough, Denies hemoptysis, Reports dyspnea on exertion and Denies wheezing Gastrointestinal: Gastrointestinal: Denies diarrhea, Denies nausea and Denies vomiting Musculoskeletal: Musculoskeletal: Denies muscle cramps Neurologic: Denies confusion and Denies weakness Psychiatric: Psychiatric: Denies confusion Endocrine: Endocrine: Denies fatigue Allergic/Immunologic: Allergic/Immunologic: Denies wheezing PMF Past Medical History Medical History End stage renal disease on dialysis Diabetes Kidney failure HTN (hypertension) Social History Social History Household Members: Spouse Housing: House Alcohol intake: never Patient Tobacco Use Status: Never used Tobacco Smoked in Last 30 Days: No Use of substances other than those prescribed or required for medical reasons: No Currently Displaying Signs/Symptoms of Drug Intoxication Withdrawal: No Have you been hit, kicked, punched, or otherwise hurt by someone within the past year? If so, by whom?: No Do you feel safe in your current relationship?: No Is there a partner from a previous relationship who is making you feel unsafe now?: No Are you made to feel afraid or neglected: No Spiritual Healthcare Practices: NONE [place] Healthcare Practices: NONE Cultural Healthcare Practices: NONE Advance Directives: No Advance Directives Information Provided: Yes Do you have thoughts of harming others: None Do you have a plan to hurt others: No Plan Recently lost weight without trying: No Eating poorly because of decreased appetite: No Nutrition Risks: No Nutritional Risk Poor oral hygiene: No Meds Allergies Allergy/AdvReac Type Severity Reaction Status Date / Time Penicillins [PENICILLINS] Allergy Unknown RASH Verified 07/11/21 06:26 tramadol [From ULTRAM] Allergy Unknown RASH Verified 07/11/21 06:26 trazodone [TRAZODONE] Allergy Unknown PRIAPISM Verified 07/11/21 06:26 risperidone [RISPERIDONE] AdvReac Severe dizzy, EPS Verified 07/11/21 06:26 Active Medications: Current Medications Heparin Sodium (Porcine) (Heparin Sodium,Porcine 5,000 Unit/Ml Vial) 5,000 unit SUBCUT TID FOR[facility], [facility]–1983 Home Medications Medication Instructions Recorded Confirmed Last Taken Type atenolol 100 mg tablet 1 tab PO DAILY 07/11/21 09/03/23 Unknown History blood sugar diagnostic (FreeStyle 07/11/21 07/11/21 Unknown History Lite Strips) dextroamphetamine-amphetamine 20 1 tab PO TID 07/11/21 09/03/23 Unknown History mg tablet insulin glargine 100 unit/mL (3 12 unit subcut DAILY 07/11/21 09/03/23 Unknown History mL) subcutaneous pen (Lantus Solostar U-100 Insulin) levothyroxine 137 mcg tablet 1 tab PO DAILY@0600 07/11/21 09/03/23 Unknown History pen needle, diabetic 31 gauge x 07/11/21 07/11/21 Unknown History 03/03 (BD Ultra-Fine Short Pen Needle) amlodipine 5 mg tablet 10 mg PO DAILY 09/03/23 09/03/23 Unknown History clonazepam 0.5 mg tablet 0.5 mg PO TID PRN Anxiety 09/03/23 09/03/23 Unknown History Physical Exam Vital Signs: Vital Signs: Last Vital Signs Temp 99.5 F 09/03/23 02:31 Pulse 81 09/03/23 04:14 Resp 21 H 09/03/23 04:14 BP 133/75 09/03/23 04:14 Pulse Ox 95 09/03/23 04:14 O2 Del Method Nasal Cannula 09/03/23 04:14 Oxygen Flow Rate 2 09/03/23 02:31 BMI result Body Mass Index 31.1 ?General:? Alert oriented x3 no acute distress.? Speaking full sentences.? Following all commands. ?HEENT:? Head is normocephalic, atraumatic, pupils equal round reactive to light accommodation bilaterally.? Extraocular movements appear intact.? Buccal mucosa is dry, Neck is supple ?Cardiac:? Clear S1-S2, no murmurs rubs or gallops. +JVD. ?Pulmonary:? Clear to auscultation, no wheezes, rales or rhonchi. ?Abdomen:? ?Abdomen soft, non-tender, mild distention Normal bowel sounds. No pulsatile mass. No hepatosplenomegaly. ?Musculoskeletal:? Moving all 4 extremities upon request a major joints, there is no crepitus or tenderness.? The strength is 5/5 bilaterally and throughout all 4 extremities.? Gait not assessed at this point. ?Neurologic:? cranial nerves 2-12 are grossly intact.? No focal deficits noted. Motor strength as above.?? ?Skin:? Intact, no lesions, edema, erythema, clubbing or cyanosis.? No ulcers. Vascular:? 2+ pulses upper and lower extremities distally.? Const: General: No confusion Orientation/consciousness: No confusion Neuro: General: No confusion Results Labs 09/03/23 02:46 09/03/23 02:45 Labs: Laboratory Results - last 24 hr 09/03/23 09/03/23 09/03/23 02:45 02:46 02:47 MCV 93.4 MCH 32.0 MCHC 34.3 RDW 13.5 Plt Count 169 MPV 10.1 Immature Gran % (Auto) 0.4 Neut % (Auto) 86.8 H Lymph % (Auto) 4.8 L [place] % (Auto) 7.3 Eos % (Auto) 0.3 Baso % (Auto) 0.4 Lymph # (Auto) 0.7 L [place] # (Auto) 1.0 Eos # (Auto) 0.0 Baso # (Auto) 0.1 Abs Immat Gran (auto) 0.06 H Absolute Neuts (auto) 12.2 H Absolute Nucleated RBC 0.000 Nucleated RBC % (auto) 0.0 PT 13.5 H INR 1.1 Anion Gap 29 H Estim Creat Clear Calc 4.4 Estimated GFR 3 Random Glucose 106 Lactic Acid 1.3 Calcium 9.1 Total Bilirubin 1.1 H AST 18 ALT 8 Alkaline Phosphatase 61 Total Protein 7.7 Albumin 4.3 Influenza Type A (PCR) Influenza Type B (PCR) RSV RNA Qual (PCR) SARS-CoV-2 RNA (RT-PCR) 09/03/23 02:49 MCV MCH MCHC RDW Plt Count MPV Immature Gran % (Auto) Neut % (Auto) Lymph % (Auto) [place] % (Auto) Eos % (Auto) Baso % (Auto) Lymph # (Auto) [place] # (Auto) Eos # (Auto) Baso # (Auto) Abs Immat Gran (auto) Absolute Neuts (auto) Absolute Nucleated RBC Nucleated RBC % (auto) PT INR Anion Gap Estim Creat Clear Calc Estimated GFR Random Glucose Lactic Acid Calcium Total Bilirubin AST ALT Alkaline Phosphatase Total Protein Albumin Influenza Type A (PCR) NEGATIVE Influenza Type B (PCR) NEGATIVE RSV RNA Qual (PCR) NEGATIVE SARS-CoV-2 RNA (RT-PCR) NEGATIVE Assessment and Plan (1) End stage renal disease on dialysis: Status: Acute (2) DONIS (acute kidney injury): Status: Acute (3) Pulmonary edema: Status: Acute Plan 68-year-old male with a past medical history of end-stage renal disease on dialysis Thursday/Thursday/Thursday, diabetes mellitus,? hypertension, and? anxiety and history of noncompliance who presents in acute renal failure requiring emergent dialysis Neuro:? no acute issues?? Cardiac:? ?Pulmonary edema:? patient with significant elevation in blood pressure due to pulmonary edema.? Pulmonary edema likely caused by acute renal failure due to missing dialysis. pulmonary edema should? improve after dialysis.?? Pulmonary:?? ?No acute issues Renal:? ESRD? on HD-? ? patient missed? x3 days of dialysis,? his potassium potassium elevated to 7, creatinine 16.73,? Peaked T waves in EKG, and elevated blood pressure. ? Receive calcium gluconate in the emergency room.? Nephrology consult,? agree to have dialysis tonight.? Appreciate? renal? services.? Will repeat chemistries after dialysis Endo:?? ?History of diabetes:? continue check frequent POCs ID: ? leukocytosis-? no evidence of severe infection/? sepsis, no elevation in lactic,? elevated blood pressures due to pulmonary edema /renal failure.? Will continue to trend leukocytosis GI:? No acute issues.?? Heme/Onc:? No acute issues. Psych:? No acute issues. Miscellaneous:? No acute issues. Prophylaxis: ? subcu Heparin,? no GI prophylaxis required at this time CODE: FULL Critical care time x 60 min of critical care time? case discussed with attending Dr Boss
[2023-09-03 05:11] LABS: Glucose, Whole Blood 106 mg/dL (60-115)
[2023-09-03] MEDS: Sodium Zirconium Cyclosilicate 10 GM POWD.PACK PO (05:27)
--- NOTE | 2023-09-03 06:20 | PC.NURSE ---
PT TO ICU AT 0440 ALERT AND ORIENTED X4. PT STOOD AND PIVOTED FROM STRETCHER TO BED WITHOUT DIFFICULTY. SLIGHT SOB WITH EXERTION. O2 ON AT 2L VIA NC. BP ELEVATED 177/77, 185/73. TO HAVE DIALYSIS LEAH. DIALYSIS NURSE IS ON HER WAY. PT MISSED 3 DIALYSIS SESSIONS HE STATES BECAUSE HE DIDN'T FEEL WELL. HE HAS HAD A COUGH FOR 1 WEEK AND SORE THROAT. RESP SCREEN NEGATIVE FOR FLU, COVID OR RSV. LUNGS CLEAR BUT DIM IN BASES. PT STATES HE HAS PAIN EVERYWHERE ESPECIALLY IN HIS SIDES/RIB AREA BILAT FROM COUGHING. RECEIVED CALCIUM GLUCONATE IN ER AND LOKELMA IN ICU. MONITOR SHOWS NSR, 70'S-80'S, NO ECTOPY. PEAKED T WAVES NOTED. PT STATES HE VOIDS VERY LITTLE, < 100 ML/DAY.
[2023-09-03 07:33] LABS: Glucose, Whole Blood 99 mg/dL (60-115)
--- NOTE | 2023-09-03 09:15 | P.CONNP_ITS ---
History of Present Illness Reason for Consult Consult date: 09/03/23 Chief Complaint Chief complaint: Acute Renal Failure History of Present Illness Narrative: 68-year-old male ESRD ( PVD MWF) presents with severe HyperK ( 7.0) with EKG changes--missed last 2 HD Rx c/o RLQ pain and feeling unwell PMH: end-stage renal disease on dialysis Thursday/Thursday/Thursday, diabetes mellitus,? hypertension, and? anxiety and history of noncompliance Review of Systems Review of Systems Pertinent positives and negatives as stated in HPI Constitutional: Denies chills, Denies fatigue, Denies fever(s) and Denies weakness Eyes: Denies change in vision Cardiovascular: Denies chest pain and Reports dyspnea on exertion Respiratory: Reports cough, Denies hemoptysis, Reports dyspnea on exertion and Denies wheezing Gastrointestinal: Denies diarrhea, Denies nausea and Denies vomiting Musculoskeletal: Denies muscle cramps Denies confusion and Denies weakness Psychiatric: Denies confusion Endocrine: Denies fatigue Allergic/Immunologic: Denies wheezing PMFSH Past Medical History Medical History End stage renal disease on dialysis Diabetes Kidney failure HTN (hypertension) Social History Social History Household Members: Spouse Housing: House Alcohol intake: never Patient Tobacco Use Status: Never used Tobacco Smoked in Last 30 Days: No Use of substances other than those prescribed or required for medical reasons: No Have you been hit, kicked, punched, or otherwise hurt by someone within the past year? If so, by whom?: No Do you feel safe in your current relationship?: No Is there a partner from a previous relationship who is making you feel unsafe now?: No Are you made to feel afraid or neglected: No Spiritual Healthcare Practices: NONE Roman Catholic Healthcare Practices: NONE Cultural Healthcare Practices: NONE Advance Directives: No Advance Directives Information Provided: Yes Do you have thoughts of harming others: None Do you have a plan to hurt others: No Plan Recently lost weight without trying: No Eating poorly because of decreased appetite: No Nutrition Risks: No Nutritional Risk Poor oral hygiene: No Meds Allergies Allergy/AdvReac Type Severity Reaction Status Date / Time Penicillins [PENICILLINS] Allergy Unknown RASH Verified 07/11/21 06:26 tramadol [From ULTRAM] Allergy Unknown RASH Verified 07/11/21 06:26 trazodone [TRAZODONE] Allergy Unknown PRIAPISM Verified 07/11/21 06:26 risperidone [RISPERIDONE] AdvReac Severe dizzy, EPS Verified 07/11/21 06:26 Active Medications: Current Medications Heparin Sodium (Porcine) (Heparin Sodium,Porcine 5,000 Unit/Ml Vial) 5,000 unit SUBCUT TID [facility] Home Medications Medication Instructions Recorded Confirmed Last Taken Type atenolol 100 mg tablet 1 tab PO DAILY 07/11/21 07/11/21 Unknown History blood sugar diagnostic (FreeStyle 07/11/21 07/11/21 Unknown History Lite Strips) dextroamphetamine-amphetamine 20 1 tab PO TID 07/11/21 07/11/21 Unknown History mg tablet insulin glargine 100 unit/mL (3 70 unit subcut DAILY 07/11/21 07/11/21 Unknown History mL) subcutaneous pen (Lantus Solostar U-100 Insulin) levothyroxine 137 mcg tablet 1 tab PO DAILY 07/11/21 07/11/21 Unknown History pen needle, diabetic 31 gauge x 07/11/21 07/11/21 Unknown History 03/03 (BD Ultra-Fine Short Pen Needle) amlodipine 5 mg tablet 20 mg PO DAILY 09/03/23 Unknown History clonazepam 0.5 mg tablet 0.5 mg PO TID PRN Anxiety 09/03/23 09/03/23 Unknown History Physical Exam Vital Signs: Last Vital Signs Temp 97.6 F 09/03/23 08:00 Pulse 82 09/03/23 08:00 Resp 22 H 09/03/23 08:00 BP 177/79 H 09/03/23 08:00 Pulse Ox 96 09/03/23 08:00 O2 Del Method Nasal Cannula 09/03/23 08:00 O2 Flow Rate 2 09/03/23 08:00 Oxygen Flow Rate 2 09/03/23 02:31 BMI result Body Mass Index 31.9 Const General: No confusion Orientation/consciousness: No confusion Neuro General: No confusion Results Lab Results 09/03/23 02:46 09/03/23 02:45 Lab results: Chemistry 09/03/23 02:45 Sodium 134 L Potassium 7.0 H* Carbon Dioxide 17 L BUN 118 H Creatinine 16.73 H* Calcium 9.1 Hematology 09/03/23 02:46 WBC 14.0 H Hgb 10.6 L Plt Count 169 Assessment and Plan (1) End stage renal disease on dialysis: Status: Acute (2) DONIS (acute kidney injury): Status: Acute (3) Pulmonary edema: Status: Acute Plan 1. Hypwerk: d/t missed HD Rx 2. ESRD 3. DM 4. RLQ and testicle pain: may need furhter eval PLAN emergent HD on 1 k bath today and again HD tomorrow to keep on mwf schedule Procedures Date of Service Date of Service: 09/03/23
--- NOTE | 2023-09-03 09:22 | PHA.MEDREC ---
Pharmacy Consult ? Medication Reconciliation Pharmacy has completed the medication reconciliation.SPOKE WITH PATIENT WHILE HE WAS HAVING DIALYSIS AND CONFIRMED HIS MEDICATIONS. HE RECENTLY HAD BUPROPION FILLED BUT STATES HE IS NOT TAKING IT. ALSO OF NOTE, CLAIM HISTORY SHOWS 4 PER DAY OF AMLODIPINE 5 MG BUT HE STATES HE ONLY TAKES 2 PER DAY FOR TOTAL DOSE 10 MG DAILY. CONFIRMED LANTUS DOSE IS 12 UNITS DAILY IN MORNING.
[2023-09-03 11:52] LABS: Glucose, Whole Blood 89 mg/dL (60-115)
[2023-09-03] MEDS: amLODIPine Besylate 10 MG TABLET PO (12:21)
[2023-09-03] MEDS: Heparin Sodium,Porcine 5,000 UNIT/ML VIAL 5000 UNIT SUBCUT ×2 (12:21→21:46)
--- NOTE | 2023-09-03 13:10 | P.CDIM_ITS ---
PROVIDER RESPONSE TEXT: To clarify, the appropriate diagnosis supported by the clinical indicators: Hyperkalemia QUERY TEXT: PHYSICIAN'S DOCUMENTATION REQUEST Date of Query: 09/03/2023 01:04 PM EST Patient Name: PRIYA BO Admit Date: 09/03/2023 Dear Alessandro Boss, A review of the medical record indicates additional documentation may be needed. Please review below and update the documentation accordingly. Clinical Indicators: LAB FINDINGS: potassium 7.0 H Based on the above, is there a diagnosis that correlates with these lab findings: Hyperkalemia Other Other (explain) Clinically unable to determine (explain) Thank you, Tesha Velasquez, CCS, CDIS Use of terms such as suspected, likely, concern for, or probable (associated with a specific diagnosi s that is being evaluated, monitored, or treated as if it exists) are acceptable and can be coded in the inpatient se tting, when documented at the time of discharge. Please use your independent medical judgment in providing your response. THIS QUERY IS PART OF THE PERMANENT MEDICAL RECORD
[2023-09-03 13:33] LABS: Anion Gap 24 (12-20); Blood Urea Nitrogen 46 mg/dL (9-16); Carbon Dioxide 20 mmol/L (22-29); Chloride 98 mmol/L (96-108); Creatinine Clr Calc Pharmacy 9.2; Estimated Glomerular Filt Rate 7; Glucose Random 84 mg/dL (60-115); Potassium 4.6 mmol/L (3.3-5.1); Sodium 137 mmol/L (135-145)
--- NOTE | 2023-09-03 14:13 | MHC.CM.PN ---
IMM DELIVERED. PT CURRENTLY IN ICU CARE, AT BEDSIDE. FROM HOME WITH , RACHEL. CLAIM TECHNICIAN, NO SERVICES. DIALYSIS M/W/F CHAIR TIME 10:30 @ [facility] [phone]. DIABETIC SUPPLIES FROM [facility]. NO OTHER EQUIPMENT IN THE HOME. CM ASSISTED PT TO COMPLETE HCP, PT NAMED [employer], PHONE # [phone] PCP: RACHELLE ALLEN DP: GOAL IS HOME WITH FAMILY SUPPORT, RESUME OUTPT DIALYSIS, FAMILY TO TRANSPORT.
[2023-09-03 16:16] LABS: Glucose, Whole Blood 119 mg/dL (60-115)
[2023-09-03 20:26] LABS: Glucose, Whole Blood 81 mg/dL (60-115)
[2023-09-03 21:07] LABS: Glucose, Whole Blood 115 mg/dL (60-115)
[2023-09-03] MEDS: clonazePAM 0.5 MG TABLET PO (21:46)
[2023-09-03] MEDS: Acetaminophen 325 MG TABLET 650 MG PO (23:38)
[2023-09-03] MEDS: Amphetamine Mixed Salts 20 MG TABLET PO (23:40)
--- NOTE | 2023-09-03 23:41 | PC.NURSE ---
pt had previously declined adderal but requested evening dose now so it was given as an unscheduled adminstration now
[2023-09-04] VITALS (7 sets, daily range): BP systolic 112–159; BP diastolic 61–89; PULSE 68–98; RESP 16–20; TEMP 36.1–37.1; O2SAT 95–99; BMI 30.2
[2023-09-04] MEDS: Heparin Sodium,Porcine 5,000 UNIT/ML VIAL 5000 UNIT SUBCUT ×3 (04:15→20:47)
[2023-09-04] MEDS: clonazePAM 0.5 MG TABLET PO ×3 (06:38→20:50)
[2023-09-04] MEDS: Levothyroxine Sodium 112 MCG, Levothyroxine Sodium 25 MCG 137 MCG PO (06:38)
[2023-09-04] MEDS: Acetaminophen 325 MG TABLET 650 MG PO ×3 (06:38→20:46)
[2023-09-04] MEDS: Amphetamine Mixed Salts 20 MG TABLET PO ×3 (06:38→20:46)
[2023-09-04 06:47] LABS: MANUAL DIFF FLAG NO
[2023-09-04 06:50] LABS: Basophils Absolute Auto 0.1 X10*3/uL (0.0-0.2); Basophils Percent Auto 0.8 % (0-2); Eosinophils Absolute Auto 0.5 X10*3/uL (0.0-0.4); Eosinophils Percent Auto 5.9 % (0-4); Hematocrit 30.4 % (42.0-52.0); Hemoglobin 10.8 g/dl (14.0-18.0); Imm Gran Abs Auto 0.05 X10*3/uL (0.00-0.03); Imm Gran Pct Auto 0.6 % (0.0-0.4); Lymphocytes Absolute Auto 1.3 X10*3/uL (1.2-4.9); Lymphocytes Percent Auto 14.6 % (20-40); Mean Corpuscular HGB Conc 35.5 g/dl (31.0-36.0); Mean Corpuscular Hemoglobin 32.5 pg (27.0-33.0); Mean Corpuscular Volume 91.6 fL (80.0-98.0); Mean Platelet Volume 10.2 fL (9.4-12.4); Monocytes Absolute Auto 0.8 X10*3/uL (0.1-1.2); Monocytes Percent Auto 9.3 % (2-11); Neutrophils Absolute Auto 5.9 x10*3/uL (2.0-8.3); Neutrophils Percent Auto 68.8 % (45-73); Platelet Count 202 X10*3/uL (160-400); Red Blood Count 3.32 X10*6/uL (4.60-5.80); Red Cell Distribution Width 13.4 % (11.0-16.0); White Blood Count 8.6 X10*3/uL (4.8-10.8)
[2023-09-04 06:54] LABS: Venous Blood Gas Refer to POC result
[2023-09-04 07:05] LABS: VBG HCO3 23 mmol/L (22-26); VBG pCO2 35 mmHg; VBG pH 7.43 (7.32-7.43); VBG pO2 73 mmHg
[2023-09-04 07:25] LABS: Albumin Level 4.1 g/dL (3.5-5.0); Anion Gap 22 (12-20); Blood Urea Nitrogen 63 mg/dL (9-16); Calcium 9.4 mg/dL (8.4-10.2); Carbon Dioxide 23 mmol/L (22-29); Chloride 96 mmol/L (96-108); Creatinine Clr Calc Pharmacy 6.6; Estimated Glomerular Filt Rate 5; Glucose Random 88 mg/dL (60-115); Magnesium 2.4 mg/dL (1.6-2.6); Phosphorus 9.1 mg/dL (2.7-4.5); Potassium 5.3 mmol/L (3.3-5.1); Sodium 136 mmol/L (135-145)
[2023-09-04 07:47] LABS: Glucose, Whole Blood 90 mg/dL (60-115)
[2023-09-04 11:38] LABS: Glucose, Whole Blood 126 mg/dL (60-115)
[2023-09-04] MEDS: amLODIPine Besylate 10 MG TABLET PO (12:32)
[2023-09-04] MEDS: atenoloL 100 MG TABLET PO (12:32)
[2023-09-04] MEDS: Insulin Glargine,Hum.rec.anlog 100 UNIT/ML 10 ML VIAL 12 UNIT SUBCUT (12:33)
[2023-09-04] MEDS: oxyCODONE HCl Immed Release 5 MG TABLET 10 MG PO (15:33)
--- NOTE | 2023-09-04 16:14 | P.PNIM_ITS ---
Subjective Subjective Date of Service: 09/04/23 Interval History: dyspnea , ESRD Review of Systems Shortness of breath seems to be improving Denies any chest pain or nausea vomiting Physical Exam 2 Vital Signs: Vital Signs: Last Vital Signs Temp 98.1 F 09/04/23 15:14 Pulse 73 09/04/23 15:14 Resp 18 09/04/23 15:14 BP 137/75 09/04/23 15:14 Pulse Ox 98 09/04/23 15:14 O2 Del Method Room Air 09/04/23 15:14 O2 Flow Rate 4 09/04/23 00:00 Oxygen Flow Rate 2 09/03/23 02:31 BMI result Body Mass Index 30.2 Appearance: Alert.? Oriented X3.? not in distress.? Eyes: Pupils equal, round and reactive to light.? Sclera nonicteric.? ENT: Pharynx normal.? Moist mucous membranes. cvs: rrr, [id number] . res: Air entry fair, slightly diminished at bases. No rales or wheezing. abd: no rebound or guarding ,nt, bs present. ext pulses present , no cyanosis . neuro: axo3 , nonfocal. Objective Data Active Medications Acetaminophen (Acetaminophen 325 Mg Tablet) 650 mg PO Q4H PRN PRN Reason: Pain, Mild (Pain Scale 1-3) Last Admin: 09/04/23 12:36 Dose: 650 mg Documented By: MARCE Amlodipine Besylate (Amlodipine Besylate 10 Mg Tablet) 10 mg PO DAILY [facility]; Protocol Last Admin: 09/04/23 12:32 Dose: 10 mg Documented By: MARCE Amphetamine/Dextroamphetamine (Amphetamine Mixed Salts 20 Mg Tablet) 20 mg PO TID@0700,1300,1900 [facility] Last Admin: 09/04/23 12:32 Dose: 20 mg Documented By: MARCE Atenolol (Atenolol 100 Mg Tablet) 100 mg PO DAILY [facility]; Protocol Last Admin: 09/04/23 12:32 Dose: 100 mg Documented By: MARCE Clonazepam (Clonazepam 0.5 Mg Tablet) 0.5 mg PO TID PRN PRN Reason: Anxiety Last Admin: 09/04/23 12:37 Dose: 0.5 mg Documented By: MARCE Heparin Sodium (Porcine) (Heparin Sodium,Porcine 5,000 Unit/Ml Vial) 5,000 unit SUBCUT Q8H [facility] Last Admin: 09/04/23 12:33 Dose: 5,000 unit Documented By: MARCE Insulin Glargine (Insulin Glargine,Hum.Rec.Anlog 100 Unit/Ml 10 Ml Vial) 12 unit SUBCUT DAILY [facility] Last Admin: 09/04/23 12:33 Dose: 12 unit Documented By: MARCE Insulin Human Lispro (Insulin Lispro 100 Unit/Ml 3 Ml Vial) 0 unit SUBCUT QIDACHS [facility]; Protocol Last Admin: 09/04/23 12:18 Dose: Not Given Documented By: MARCE Non-Admin Reason: No Insulin Coverage Levothyroxine Sodium 112 mcg/ (Levothyroxine Sodium 25 mcg) 137 mcg PO DAILY@0600 [facility] Last Admin: 09/04/23 06:38 Dose: 137 mcg Documented By: JEAN CLAUDE Labs 09/04/23 06:38 09/04/23 06:38 Labs: Laboratory Results - last 24 hr 09/03/23 09/03/23 09/03/23 16:02 20:19 21:04 MCV MCH MCHC RDW Plt Count MPV Immature Gran % (Auto) Neut % (Auto) Lymph % (Auto) [place] % (Auto) Eos % (Auto) Baso % (Auto) Lymph # (Auto) [place] # (Auto) Eos # (Auto) Baso # (Auto) Abs Immat Gran (auto) Absolute Neuts (auto) Absolute Nucleated RBC Nucleated RBC % (auto) VBG pH VBG pCO2 VBG pO2 VBG HCO3 VBG O2 Saturation VBG Base Excess Anion Gap Estim Creat Clear Calc Estimated GFR POC Glucose 119 H 81 115 Random Glucose Calcium Phosphorus Magnesium Albumin 09/04/23 09/04/23 09/04/23 06:38 06:46 07:34 MCV 91.6 MCH 32.5 MCHC 35.5 RDW 13.4 Plt Count 202 MPV 10.2 Immature Gran % (Auto) 0.6 H Neut % (Auto) 68.8 Lymph % (Auto) 14.6 L [place] % (Auto) 9.3 Eos % (Auto) 5.9 H Baso % (Auto) 0.8 Lymph # (Auto) 1.3 [place] # (Auto) 0.8 Eos # (Auto) 0.5 H Baso # (Auto) 0.1 Abs Immat Gran (auto) 0.05 H Absolute Neuts (auto) 5.9 Absolute Nucleated RBC 0.000 Nucleated RBC % (auto) 0.0 VBG pH 7.43 VBG pCO2 35 VBG pO2 73 VBG HCO3 23 VBG O2 Saturation 95.0 VBG Base Excess 0.0 Anion Gap 22 H Estim Creat Clear Calc 6.6 Estimated GFR 5 POC Glucose 90 Random Glucose 88 Calcium 9.4 Phosphorus 9.1 H Magnesium 2.4 Albumin 4.1 09/04/23 11:35 MCV MCH MCHC RDW Plt Count MPV Immature Gran % (Auto) Neut % (Auto) Lymph % (Auto) [place] % (Auto) Eos % (Auto) Baso % (Auto) Lymph # (Auto) [place] # (Auto) Eos # (Auto) Baso # (Auto) Abs Immat Gran (auto) Absolute Neuts (auto) Absolute Nucleated RBC Nucleated RBC % (auto) VBG pH VBG pCO2 VBG pO2 VBG HCO3 VBG O2 Saturation VBG Base Excess Anion Gap Estim Creat Clear Calc Estimated GFR POC Glucose 126 H Random Glucose Calcium Phosphorus Magnesium Albumin Microbiology Microbiology Results: Microbiology 09/03/23 03:20 Blood Culture - Preliminary Blood - Venous No growth after 24 hours. 09/03/23 02:47 Blood Culture - Preliminary Blood - Venous No growth after 24 hours. Assessment and Plan (1) End stage renal disease on dialysis: Status: Acute (2) Pulmonary edema: Status: Acute Plan 68-year-old male with a past medical history of end-stage renal disease on dialysis Thursday/Thursday/Thursday, diabetes mellitus,? hypertension, and? anxiety-patient was admitted to ICU for fluid overload/pulmonary edema due to missed hemodialysis. He missed dialysis for 3 days. Patient was given dialysis in the ICU and shortness of breath seems to be improving-sent to floor on 09/03/23. 1. Fluid overload secondary to missed hemodialysis: Advance ESRD Continue hemodialysis Creatinine is still still 11 range, mild hyperkalemia 5.3 Shortness of breath improving, patient will be getting dialysis today,given low dose lokelma . Nephrology following. 2 diabetes: Borderline fingersticks fluctuating from 80-120. Diabetic diet Fingersticks with coverage, avoid coverage below 200. 3. Hypertension: Blood pressure stable, Continue atenolol and amlodipine. 4. Anxiety: Continue home medications DVT prophylaxis: SubQ heparin Ongoing need for stay: Patient has fluid overload, hyperkalemia in the setting of missing hemodialysis at least 3 sessions- patient need hemodialysis at monitor for respiratory status as well as hyperkalemia-need close electrolyte monitoring. Patient we will need 24-48 hours stay Quality Stroke Does the patient have a stroke diagnosis?: No VTE Prior VTE?: No VTE Risk Level:: Medical - moderate - high VTE Device Contraindication: N/A - Device Ordered VTE Drug Contraindication: N/A - Med Ordered
[2023-09-04 16:24] LABS: Glucose, Whole Blood 92 mg/dL (60-115)
[2023-09-04] MEDS: Sodium Zirconium Cyclosilicate 5 GM POWD.PACK PO (17:12)
[2023-09-04 20:18] LABS: Glucose, Whole Blood 137 mg/dL (60-115)
[2023-09-04] MEDS: ondansetron HCL 4 MG/2 ML VIAL IVPUSH (23:44)
[2023-09-04] MEDS: Magnesium Hydrox/Alum Hydrox 30 ML ORAL.SUSP PO (23:44)
[2023-09-04] MEDS: Albumin Human 25 % 100 ML IV (23:46)
[2023-09-05] VITALS: BP 133/59; PULSE 67; RESP 18; TEMP 36.2
[2023-09-05 04:00] VITALS: BP 166/78; PULSE 84; RESP 18; TEMP 36.6; O2SAT 98
[2023-09-05 06:00] VITALS: BMI 29.9
[2023-09-05] MEDS: Levothyroxine Sodium 112 MCG, Levothyroxine Sodium 25 MCG 137 MCG PO (06:16)
[2023-09-05] MEDS: Amphetamine Mixed Salts 20 MG TABLET PO ×2 (06:16→12:16)
[2023-09-05] MEDS: Heparin Sodium,Porcine 5,000 UNIT/ML VIAL 5000 UNIT SUBCUT ×2 (06:17→12:16)
[2023-09-05] MEDS: clonazePAM 0.5 MG TABLET PO (06:34)
[2023-09-05 07:14] LABS: Anion Gap 21 (12-20); Blood Urea Nitrogen 57 mg/dL (9-16); Calcium 8.7 mg/dL (8.4-10.2); Carbon Dioxide 21 mmol/L (22-29); Chloride 95 mmol/L (96-108); Creatinine Clr Calc Pharmacy 8.2; Estimated Glomerular Filt Rate 6; Glucose Random 98 mg/dL (60-115); Potassium 5.1 mmol/L (3.3-5.1); Sodium 132 mmol/L (135-145)
[2023-09-05 07:23] LABS: Estimated Average Glucose 105 mg/dL; Hemoglobin A1c % 5.3 % (<6.0)
[2023-09-05 07:44] VITALS: BP 159/79; PULSE 73; RESP 20; TEMP 36.4; O2SAT 100
[2023-09-05 08:01] LABS: Glucose, Whole Blood 102 mg/dL (60-115)
[2023-09-05] MEDS: Acetaminophen 325 MG TABLET 650 MG PO (09:07)
[2023-09-05] MEDS: amLODIPine Besylate 10 MG TABLET PO (09:07)
[2023-09-05] MEDS: atenoloL 100 MG TABLET PO (09:08)
[2023-09-05 11:04] VITALS: BP 148/72; PULSE 67; RESP 20; TEMP 36.7; O2SAT 97
[2023-09-05 11:42] LABS: Glucose, Whole Blood 140 mg/dL (60-115)
[2023-09-05 12:28] VITALS: TEMP 37.1
--- NOTE | 2023-09-05 12:30 | P.PNIM_ITS ---
Subjective Subjective Date of Service: 09/07/23 Interval History: dyspnea ,ESRD Review of Systems sob seems improved no new overnight events Physical Exam 2 Vital Signs: Vital Signs: Last Vital Signs Temp 98.7 F 09/05/23 12:28 Pulse 67 09/05/23 11:04 Resp 20 09/05/23 11:04 BP 148/72 H 09/05/23 11:04 Pulse Ox 97 09/05/23 11:04 O2 Del Method Room Air 09/05/23 11:04 O2 Flow Rate 4 09/04/23 00:00 Oxygen Flow Rate 2 09/03/23 02:31 BMI result Body Mass Index 29.9 Appearance: Alert.? Oriented X3.? not in distress.? cvs: rrr, [id number] . res: Air entry fair, No rales or wheezing. abd: no rebound or guarding ,nt, bs present. ext pulses present , no cyanosis . neuro: axo3 , nonfocal. Objective Data Active Medications Acetaminophen (Acetaminophen 325 Mg Tablet) 650 mg PO Q4H PRN PRN Reason: Pain, Mild (Pain Scale 1-3) Last Admin: 09/05/23 09:07 Dose: 650 mg Documented By: CHEVY Al Hydroxide/Mg Hydroxide (Magnesium Hydrox/Alum Hydrox 30 Ml Oral.Susp) 30 ml PO Q6H PRN PRN Reason: Heartburn Last Admin: 09/04/23 23:44 Dose: 30 ml Documented By: HUNTER Amlodipine Besylate (Amlodipine Besylate 10 Mg Tablet) 10 mg PO DAILY [facility]; Protocol Last Admin: 09/05/23 09:07 Dose: 10 mg Documented By: CHEVY Amphetamine/Dextroamphetamine (Amphetamine Mixed Salts 20 Mg Tablet) 20 mg PO TID@0700,1300,1900 [facility] Last Admin: 09/05/23 12:16 Dose: 20 mg Documented By: COTEMA Atenolol (Atenolol 100 Mg Tablet) 100 mg PO DAILY [facility]; Protocol Last Admin: 09/05/23 09:08 Dose: 100 mg Documented By: CHEVY Clonazepam (Clonazepam 0.5 Mg Tablet) 0.5 mg PO TID PRN PRN Reason: Anxiety Last Admin: 09/05/23 06:34 Dose: 0.5 mg Documented By: HUNTER Heparin Sodium (Porcine) (Heparin Sodium,Porcine 5,000 Unit/Ml Vial) 5,000 unit SUBCUT Q8H [facility] Last Admin: 09/05/23 12:16 Dose: 5,000 unit Documented By: CHEVY Insulin Human Lispro (Insulin Lispro 100 Unit/Ml 3 Ml Vial) 0 unit SUBCUT QIDACHS [facility]; Protocol Last Admin: 09/05/23 11:39 Dose: Not Given Documented By: CHEVY Non-Admin Reason: No Insulin Coverage Comments: poc 140 Levothyroxine Sodium 112 mcg/ (Levothyroxine Sodium 25 mcg) 137 mcg PO DAILY@0600 [facility] Last Admin: 09/05/23 06:16 Dose: 137 mcg Documented By: HUNTER Ondansetron HCl (Ondansetron Hcl 4 Mg/2 Ml Vial) 4 mg IVPUSH Q6H PRN PRN Reason: Nausea and Vomiting Last Admin: 09/04/23 23:44 Dose: 4 mg Documented By: HUNTER Labs 09/04/23 06:38 09/05/23 06:18 Labs: Laboratory Results - last 24 hr 09/04/23 09/04/23 09/05/23 16:13 20:12 06:18 Anion Gap 21 H Estim Creat Clear Calc 8.2 Estimated GFR 6 POC Glucose 92 137 H Random Glucose 98 Estimat Average Glucose 105 Hemoglobin A1c % 5.3 Calcium 8.7 D 09/05/23 09/05/23 07:49 11:05 Anion Gap Estim Creat Clear Calc Estimated GFR POC Glucose 102 140 H Random Glucose Estimat Average Glucose Hemoglobin A1c % Calcium Microbiology Microbiology Results: Microbiology 09/03/23 03:20 Blood Culture - Preliminary Blood - Venous Prelim: GPR Gram Stain only 09/03/23 02:47 Blood Culture - Preliminary Blood - Venous No growth after 48 hours. Assessment and Plan (1) End stage renal disease on dialysis: Status: Acute (2) Pulmonary edema: Status: Acute Plan 68-year-old male with a past medical history of end-stage renal disease on dialysis Thursday/Thursday/Thursday, diabetes mellitus,? hypertension, and? anxiety-patient was admitted to ICU for fluid overload/pulmonary edema due to missed hemodialysis. He missed dialysis for 3 days. Patient was given dialysis in the ICU and shortness of breath seems to be improving-sent to floor on 09/03/23. 1. Fluid overload secondary to missed hemodialysis: Advance ESRD Continue hemodialysis Creatinine is still still 8.93 ,bicarb 21 ,ag 21 ( possible still agma due to esrd) Shortness of breath improving, patient will be getting dialysis today,given low dose lokelma . Nephrology following. 2 diabetes: Borderline fingersticks fluctuating from 80-120. Diabetic diet Fingersticks with coverage, avoid coverage below 200. 3. Hypertension: Blood pressure stable, Continue atenolol and amlodipine. 4. Anxiety: Continue home medications DVT prophylaxis: SubQ heparin Ongoing need for stay: Patient has fluid overload, hyperkalemia in the setting of missing hemodialysis at least 3 sessions- patient need hemodialysis at monitor for respiratory status as well as hyperkalemia-need close electrolyte monitoring. Quality Stroke Does the patient have a stroke diagnosis?: No VTE Prior VTE?: No VTE Risk Level:: Medical - moderate - high VTE Device Contraindication: N/A - Device Ordered VTE Drug Contraindication: N/A - Med Ordered
--- NOTE | 2023-09-05 13:49 | MHC.CM.PN ---
IMM 09/03/23 discharged today to home. HD will resume Thursday. Confirmed with HD center. HD [id number] this week r/t Thanksgiving. Patients will transport to home as well as to HD as usual.
--- NOTE | 2023-09-05 13:54 | P.DS_ITS ---
DS: Providers Provider Date of Service: 09/05/23 Date of admission: 09/03/23 04:10 Date of discharge: 09/05/23 Primary care physician: Matias Tan MD Consults: 09/03/23 09:44 Consult to Nephrology Routine Consulting Provider: [facility] Reason for consultation: hemodialysis Has provider been notified: Yes Attending physician on discharge: Chandler Garcia Discharging clinician: Chandler Garcia DS: Diagnosis Discharge Diagnosis (1) End stage renal disease on dialysis: Status: Acute (2) Pulmonary edema: Status: Acute DS: Summary Hospital Course Hospital Course: 68-year-old male with a past medical history of end-stage renal disease on dialysis Thursday/Thursday/Thursday, diabetes mellitus,? hypertension, and? anxiety who presented to the emergency room with dyspnea.? Patient reports missing 3 dialysis? due to chronic pain abdominal and back pain.? He reports he misses couple dialysis sessions but never missed 3 in a row.? ? Vital signs stable at emergency room.? Laboratory data was significant for? WBC 14,? potassium 7, chloride 95, serum bicarb 17, anion gap 29, BUN 118, creatinine 16.73, troponin 58.4 CHEST X-RAY:? consistent with pulmonary congestion EKG? normal sinus rhythm with peaked T-waves ? ED course:? ?The patient received 2 g of calcium gluconate Hospital course: 68-year-old male with a past medical history of end-stage renal disease on dialysis Thursday/Thursday/Thursday, diabetes mellitus,? hypertension, and? anxiety-patient was admitted to ICU for fluid overload/pulmonary edema due to missed hemodialysis. He missed dialysis for 3 days.Patient was given dialysis in the ICU and shortness of breath seems to be improving-sent to floor on 09/03/23. Patient came to the hospital because of fluid overload and hyperkalemia secondary to advanced ESRD and missing hemodialysis: Subsequently patient was admitted to ICU for dyspnea: Patient received hemodialysis and seems to be improved significantly, hyperkalemia resolved. Seen by Nephrology: Recommended to follow-up out patiently with hemodialysis , patient is already scheduled for outpatient dialysis on Thursday.Monitor BMP outpatient in 1 week with Nephrology. Diabetes: Hemoglobin A1c is 5.3, patient on diabetic diet, patient fingersticks are running from 90 to 130s. Will stop Lantus since hemoglobin A1c is 5.3. Monitor fingersticks at home with sliding scale and avoid coverage before below 200 mg/dl. Diabetic education given. Follow-up with PCP and Nephrology outpatient plan: Patient was strongly advise for compliance with dialysis Monitor BMP outpatient with Nephrology Diabetes with hemoglobin A1c of 5.3 and borderline blood sugars we will hold Lantus, and given home sliding scale coverage supply-avoid coverage before below 200 mg/dl. Diabetic education given. Above plan discussed with the patient and his in detail length-both unde rstand and in agreement with above plan, time spent 50 minute. Time Attestation Discharge coordination time: Greater than 30 minutes Quality: Safe Use of Opioids Does Pt have an Active Cancer Diagnosis on the Problem List?: No Quality: Stroke Does the patient have a stroke diagnosis?: No Physical Exam Vital Signs: Vital Signs: Last Vital Signs Temp 98.7 F 09/05/23 12:28 Pulse 67 09/05/23 11:04 Resp 20 09/05/23 11:04 BP 148/72 H 09/05/23 11:04 Pulse Ox 99 09/05/23 11:04 O2 Del Method Room Air 09/05/23 11:04 O2 Flow Rate 09/04/23 00:00 Oxygen Flow Rate 2 09/03/23 02:31 BMI result Body Mass Index 29.9 Appearance: Alert.? Oriented X3.? not in distress.? cvs: rrr, [id number] . res: Air entry fair, No rales or wheezing. abd: no rebound or guarding ,nt, bs present. ext pulses present , no cyanosis . neuro: axo3 , nonfocal. DS: Data Data Completed and Pending Labs on day of discharge: Laboratory Results - last 24 hr 09/04/23 09/04/23 09/05/23 16:13 20:12 06:18 Sodium 132 L Potassium 5.1 Chloride 95 L Carbon Dioxide 21 L Anion Gap 21 H BUN 57 H Creatinine 8.93 H* Estim Creat Clear Calc 8.2 Estimated GFR 6 POC Glucose 92 137 H Random Glucose 98 Estimat Average Glucose 105 Hemoglobin A1c % 5.3 Calcium 8.7 D 09/05/23 09/05/23 07:49 11:05 Sodium Potassium Chloride Carbon Dioxide Anion Gap BUN Creatinine Estim Creat Clear Calc Estimated GFR POC Glucose 102 140 H Random Glucose Estimat Average Glucose Hemoglobin A1c % Calcium Preliminary micro results at discharge 09/03/23 03:20 Blood Culture - Preliminary Blood - Venous Prelim: GPR Gram Stain only 09/03/23 02:47 Blood Culture - Preliminary Blood - Venous No growth after 48 hours. Imaging Chest x-ray: Radiologist's impression: ITS Impressions Chest X-Ray 09/03/23 02:51 IMPRESSION: Mild perihilar increased markings may be chronic versus related to bronchitis. Questionable right upper lobe opacity along the anterior right rib. Recommend a dedicated PA and lateral chest with apical lordotic views. Chest X-Ray 09/04/23 16:10 IMPRESSION: No evidence of a right upper lobe pulmonary abnormality. Discharge Plan Discharge Anticipated Discharge Date/Time: 09/05/23 16:19 Patient Disposition: Home, Self-Care Discharge Diagnosis: Fluid overload/pulmonary edema and hyperkalemia secondary toESRD Referrals: Matias Tan MD [Primary Care Provider] - 1 Week Discharge Medications: New insulin lispro [Humalog KwikPen Insulin] 100 unit/mL insulin pen 1 sliding scale dose subcut USEASDIRECTD Qty: 15 0RF Continued levothyroxine 137 mcg tablet 1 tab PO DAILY@0600 atenolol 100 mg tablet 1 tab PO DAILY (DME) FreeStyle Lite Strips Strip MISCELLANEOUS TID dextroamphetamine-amphetamine 20 mg tablet 1 tab PO TID (DME) pen needle, diabetic [BD Ultra-Fine Short Pen Needle] 31 gauge x 5/16 needle subcut DAILY clonazepam 0.5 mg tablet 0.5 mg PO TID PRN (Reason: Anxiety) amlodipine 5 mg tablet 10 mg PO DAILY Discontinued insulin glargine [Lantus Solostar U-100 Insulin] 100 unit/mL (3 mL) insulin pen 12 unit subcut DAILY Discharge Orders: Discharge Order (Routine); Ordered 09/05/23 Ordered By: Chandler Garcia Diet: Advance to usual diet Activity on Discharge: As tolerated Stand Alone Forms: Patient Portal Discharge page Care Plan Goals: Patient came to the hospital because of fluid overload and hyperkalemia secondary to advanced ESRD and missing hemodialysis: Subsequently patient was admitted to ICU for dyspnea: Patient received hemodialysis and seems to be improved significantly, hyperkalemia resolved. Seen by Nephrology: Recommended to follow-up out patiently with hemodialysis , patient is already scheduled for outpatient dialysis on Thursday.Monitor BMP outpatient in 1 week with Nephrology. Diabetes: Hemoglobin A1c is 5.3, patient on diabetic diet, patient fingersticks are running from 90 to 130s. Will stop Lantus since hemoglobin A1c is 5.3. Monitor fingersticks at home with sliding scale and avoid coverage before below 200 mg/dl. Diabetic education given. Follow-up with PCP and Nephrology outpatient Health Concerns: As above. Plan of Treatment: As above. Assessment: as above.
[2023-09-05 15:46] VITALS: BP 159/79; PULSE 72; RESP 16; TEMP 36.9; O2SAT 99
[2023-09-05] MEDS: Magnesium Hydrox/Alum Hydrox 30 ML ORAL.SUSP PO (15:51)
[2023-09-05 16:30] LABS: Glucose, Whole Blood 111 mg/dL (60-115)
== END 2023-09-05 17:00 | disposition home or self-care (01) | DRG 640 ==
LOC: HO.ED 04:04 → HO.EDOVER 04:17 → HO.ICU 04:35 → HO.IMC 14:13
PROVIDERS: Internal Medicine Pulmonary Disease; Admitting Provider Registered Nurse Community Health; Emergency Provider Student in an Organized Health Care Education/Training Program; PCP Family Medicine; Visit Provider Internal Medicine
DX: E87.70 Fluid overload, unspecified (principal); N18.6 End stage renal disease; I12.0 Hypertensive chronic kidney disease with stage 5 chronic kidney disease or end stage renal disease; N17.9 Acute kidney failure, unspecified; Z99.2 Dependence on renal dialysis; E87.5 Hyperkalemia; F41.9 Anxiety disorder, unspecified; E11.22 Type 2 diabetes mellitus with diabetic chronic kidney disease; E03.9 Hypothyroidism, unspecified; Z20.822 Contact with and (suspected) exposure to COVID-19; Z91.158 Patient's noncompliance with renal dialysis for other reason; Z79.4 Long term (current) use of insulin; Z79.890 Hormone replacement therapy; Z79.899 Other long term (current) drug therapy
CPT/HCPCS: 0241U; 36415; 71045; 71046; 80048; 80053; 82040; 82803; 82947; 83036; 83605; 83735; 84100; 84484; 85025; 85610; 87040; 87205; 90999; 93005; 99285; J0613; J1644; J2405; P9047

== ENCOUNTER → 2023-09-03 04:10 | Outpatient (BNV) | payer MEDICARE, SELFPAY | PROVIDERS: Admitting Provider Registered Nurse Community Health; Emergency Provider Student in an Organized Health Care Education/Training Program; PCP Family Medicine; Visit Provider Internal Medicine | DX: N18.6 End stage renal disease (principal); Z99.2 Dependence on renal dialysis; J81.1 Chronic pulmonary edema | CPT/HCPCS: 99232; 99239 ==

== ENCOUNTER → 2023-09-03 04:10 | Outpatient (BNV) | payer MEDICARE, SELFPAY | PROVIDERS: Admitting Provider Registered Nurse Community Health; Emergency Provider Student in an Organized Health Care Education/Training Program; PCP Family Medicine; Visit Provider Registered Nurse Community Health | DX: N18.6 End stage renal disease (principal); N17.9 Acute kidney failure, unspecified; Z99.2 Dependence on renal dialysis; J81.1 Chronic pulmonary edema | CPT/HCPCS: 99291 ==

== ENCOUNTER 2023-10-29 09:09 | Inpatient (IN) | payer MEDICARE, SELFPAY ==
[2023-10-29] VITALS (19 sets, daily range): BP systolic 130–204; BP diastolic 67–108; PULSE 76–97; RESP 12–37; TEMP 36.8–37.3; O2SAT 85–100; BMI 26.4; BMI 30.1
--- NOTE | ~2023-10-29 | XR_ITS ---
EXAMINATION: XR CHEST CLINICAL INFORMATION: Shortness of breath COMPARISON: Chest radiograph from 09/04/2023 TECHNIQUE: Frontal view of the chest was obtained. FINDINGS: Bilateral low lung volumes. Prominence of pulmonary vasculature. Interstitial prominence. Bibasilar atelectasis. No pneumothorax. Trachea is midline. Cardiac mediastinal silhouette is enlarged. No large pleural effusion. Osseous structures are intact. Soft tissues are unremarkable. XR/XR chest 1V IMPRESSION: 1. Bilateral low lung volumes. 2. Prominence of pulmonary vasculature. 3. Interstitial prominence. 4. Bibasilar atelectasis.
--- NOTE | ~2023-10-29 | CT_ITS ---
EXAMINATION: CT HEAD WITHOUT CONTRAST (STROKE PROTOCOL) CLINICAL INFORMATION: Stroke protocol. Acute confusion after hypertensive crisis. Rule out hemorrhage. COMPARISON: 06/13/2015 TECHNIQUE: Contiguous axial imaging was performed from the skull base to vertex without intravenous administration of contrast. This CT examination was performed using dose optimization techniques as appropriate, variously including the following: *Automated exposure control *Adjustment of mA and/or kV according to patient size (this includes techniques or standardized protocols for targeted exams where dose is matched to indication/reason for exam; i.e. extremities or head) *Use of iterative reconstruction technique DLP: 834 mGy-cm FINDINGS: There is no evidence of acute intracranial hemorrhage or territorial infarction. No abnormal mass-effect or midline shift is seen. Finch to white matter differentiation is well preserved. No extra axial fluid collections. There is commensurate enlargement of the ventricles and extraaxial CSF spaces consistent with moderate volume loss. Calcific atherosclerosis is present within the cavernous segments of the internal carotid arteries. A few foci of hypoattenuation in the subcortical and periventricular white matter are most consistent with chronic microangiopathic changes. The soft tissues and osseous structures are normal. The sinuses and mastoid air cells are clear. CT/CT head for stroke IMPRESSION: No acute intracranial pathology. This critical result was discussed with Stoney TRONCOSO on 10/30/2023 at 2:30 AM. It was ascertained that the content and urgency of the report was understood at the time of direct communication.
[2023-10-29] MEDS: Albuterol Sulfate 2.5 MG, Albuterol/Iprat 2.5/0.5MG 3 ML 3 ML INHALE (09:27)
--- NOTE | 2023-10-29 09:31 | ECG_ITS ---
Test Reason : SOB Blood Pressure : / mmHG Vent. Rate : 090 BPM Atrial Rate : 090 BPM P-R Int : 148 ms QRS Dur : 090 ms QT Int : 414 ms P-R-T Axes : 063 012 028 degrees QTc Int : 506 ms Normal sinus rhythm Prolonged QT Abnormal ECG When compared with ECG of 03-SEP-2023 02:37, No significant change was found Referred By: Rekha Rutledge Electronically Signed By:LEVI EVANS MD
--- NOTE | 2023-10-29 09:33 | ED.GENADULT ---
HPI - General Adult General Chief complaint: Dyspnea Stated complaint: SOB, 88% RA PER EMS Time Seen by Provider: 10/29/23 09:18 Source: patient and EMS Mode of arrival: EMS Limitations: no limitations History of Present Illness HPI narrative: A 68-year-old male brought in by EMS for worsening of shortness of breath since yesterday, patient is ESRD on HD -- last dialysis was yesterday patient had 4 hours session on the machine came in for worsening of shortness of breath and becoming hypoxic at 85% on room air, patient in the process of getting prescribed supplemental oxygen by PCP. Patient also stated that he had a fever last night of 100.6. having coughing, generalized body ache. Related Data Home Medications Medication Instructions Recorded Confirmed atenolol 100 mg tablet 1 tab PO DAILY 07/11/21 09/03/23 blood sugar diagnostic (FreeStyle 07/11/21 07/11/21 Lite Strips) dextroamphetamine-amphetamine 20 1 tab PO TID 07/11/21 09/03/23 mg tablet levothyroxine 137 mcg tablet 1 tab PO DAILY@0600 07/11/21 09/03/23 pen needle, diabetic 31 gauge x 07/11/21 07/11/2103/03 (BD Ultra-Fine Short Pen Needle) amlodipine 5 mg tablet 10 mg PO DAILY 09/03/23 09/03/23 clonazepam 0.5 mg tablet 0.5 mg PO TID PRN Anxiety 09/03/23 09/03/23 Previous Rx's Medication Instructions Recorded insulin lispro 100 unit/mL 1 sliding scale dose subcut 09/05/23 subcutaneous pen (Humalog KwikPen USEASDIRECTD #15 mL (U-100) Insulin) insulin lispro 100 unit/mL See Rx Instructions .Route 09/05/23 subcutaneous pen (Humalog KwikPen .COMPLEX #15 mL (U-100) Insulin) Allergies Allergy/AdvReac Type Severity Reaction Status Date / Time Penicillins [PENICILLINS] Allergy Unknown RASH Verified 07/11/21 06:26 tramadol [From ULTRAM] Allergy Unknown RASH Verified 07/11/21 06:26 trazodone [TRAZODONE] Allergy Unknown PRIAPISM Verified 07/11/21 06:26 risperidone [RISPERIDONE] AdvReac Severe dizzy, EPS Verified 07/11/21 06:26 Review of Systems Review of Systems: All other systems are reviewed and are negative Constitutional: Reports as per HPI and Reports no additional constitutional complaints Eyes: Reports as per HPI and Reports no additional eye complaints Reports system reviewed and no additional complaints, except as documented Cardiovascular: Reports as per HPI and Reports no additional cardiovascular complaints Respiratory: Reports as per HPI and Reports no additional respiratory complaints Gastrointestinal: Reports as per HPI and Reports no additional gastrointestinal complaints Genitourinary: Reports no additional female genitourinary complaints Musculoskeletal: Reports no additional musculoskeletal complaints Skin/Breast: Reports system reviewed and no additional complaints, except as docu Psychiatric: Reports no additional psychiatric complaints Endocrine: Reports no additional endocrine complaints Hematologic/Lymphatic: Reports no additional hematologic/lymphatic complaints Allergic/Immunologic: Reports no additional allergic/immunologic complaints Reports system reviewed and no additional complaints, except as documented and Reports Abnormal speech present PMFSH Past Medical History Onset Date is defined in the Problem List Problems that require an onset date and time if occurred within 24 hrs of arrival to the ED Aortic Dissection and Rupture; Neurologic impairment; Cardiopulmonary Arrest; Endotracheal Intubation; Insertion or Replacement of Mechanical Circulatory Assist Device Medical History ESRD needing dialysis DONIS (acute kidney injury) End stage renal disease on dialysis Diabetes Kidney failure HTN (hypertension) Social History Social History Household Members: Spouse Housing: House Alcohol intake: never Patient Tobacco Use Status: Never used Tobacco Advance Directives: Yes Advance Directives on File: Yes Advance Directives Date on File: 09/07/23 service: No Physical Exam ED Vital Signs: Vital Signs - 24 hr 10/29/23 09:19 10/29/23 10:40 10/29/23 11:09 Temperature 99.1 F 98.8 F Pulse Rate 93 86 84 Respiratory Rate 18 16 14 Blood Pressure 180/75 H 155/82 H 163/78 H Pulse Oximetry 86 L 95 94 Oxygen Delivery Method Room Air Nasal Cannula Nasal Cannula Oxygen Flow Rate 5 5 10/29/23 12:07 10/29/23 14:13 Temperature Pulse Rate 81 85 Respiratory Rate 20 16 Blood Pressure 168/87 H 160/83 H Pulse Oximetry 92 100 Oxygen Delivery Method Oxymask Oxymask Oxygen Flow Rate 6 10 BMI result Body Mass Index 30.1 Vital signs have been reviewed and appear to be correct. Blood pressure elevated. Heart rate normal. Respiratory rate normal. Temperature normal. Oxygen saturation normal. Appearance: Alert. Oriented X3. No acute distress. Head: Normal external exam. Normocephalic. Atraumatic. No Castellano signs noted. No raccoon eyes noted Eyes: PERRLA. EOMI. Conjunctiva and sclera normal. Eyelids normal. ENT: TM's Normal. Pharynx normal. Uvula midline. Moist mucous membranes. No trismus noted. No drooling noted. No muffled voice noted. Neck: Normal inspection. Neck supple. FROM. No adenopathy. Thyroid Normal. No meningeal signs. No neck mass noted. CVS: Normal heart rate and rhythm. Heart sound normal. No murmurs noted. Pulses normal throughout. Respiratory: No respiratory distress. Painless inspiration. Breath sounds normal. Bilateral rales up to 1/3 of both lung rider, mild diffuse expiratory wheezing with prolonged expiration.Chest nontender. No accessory muscle usage noted or decreased air movement noted. Abdomen: Soft and nontender. Bowel sounds normal in all 4 quadrants. No distention noted. No organomegaly noted. No visible injury noted. Back: No CVA tenderness. Full range of motion noted. Skin: Skin warm and dry. Normal skin color. Normal skin turgor. No rashes/lesions/lacerations noted. Extremities: No lower extremity edema. Extremities exhibit normal range of motion. Extremities nontender. Neuro: Oriented X 3. Cranial nerve exam: II-XII are grossly intact No motor deficit. No sensory deficit. Reflexes normal. Course Reevaluation(s) Reevaluation #1: ESRD came in with pulmonary congestion and O2 sat of 85% on room air, improved with supplemental oxygen, x-ray and physical exam is consistent with fluid overload and pulmonary congestion case discussed with Dr. Allen from renal patient will get dialyzed today. Time: 14:43 Medications Administered Discontinued Medications Generic Name Dose Route Start Last Admin Trade Name Freq PRN Reason Stop Dose Admin Albuterol Sulfate 2.5 mg/ 0 mg 10/29/23 09:23 10/29/23 09:27 Albuterol/Ipratropium 3 ml INHALE 10/29/23 09:24 5 dose ONCE ONE Administration Furosemide 20 mg 10/29/23 09:31 10/29/23 09:44 Furosemide 20 Mg/2 Ml Vial IVPUSH 10/29/23 09:32 20 mg ONCE ONE Administration Protocol Nitroglycerin 1 inch 10/29/23 09:31 10/29/23 09:44 Nitroglycerin 2 % Oint 1 Gm Packet TRANSDERMA 10/29/23 09:32 1 inch ONCE ONE Administration Ondansetron HCl 4 mg 10/29/23 09:38 10/29/23 09:44 Ondansetron Hcl 4 Mg/2 Ml Vial IVPUSH 10/29/23 09:39 4 mg ONCE ONE Administration Medical Decision Making Differential Diagnosis Differential Diagnoses: The differential diagnosis associated with the presentation includes ( CHF, pulmonary congestion, electrolyte abnormality, severe anemia, pneumonia, pneumothorax, viral upper respiratory infection.) Admission/Observation Consideration of admission/observation: Escalation of care including admission/observation considered Consult Healthcare Provider Management of the patient was discussed with: Hospitalist ( Dr. Correa) and Staff Cytotechnologist ( Dr. Allen from Nephrology.) Lab Data MDM Lab Attestation statement: I reviewed the patient's lab results. 10/29/23 09:36 10/29/23 10:26 Labs: Lab Results 10/29/23 10/29/23 Range/Units 09:36 10:26 WBC 11.9 H (4.8-10.8) X10*3/uL RBC 3.44 L (4.60-5.80) X10*6/uL Hgb 10.6 L (14.0-18.0) g/dl Hct 31.4 L (42.0-52.0) % MCV 91.3 (80.0-98.0) fL MCH 30.8 (27.0-33.0) pg MCHC 33.8 (31.0-36.0) g/dl RDW 13.8 (11.0-16.0) % Plt Count 319 D (160-400) X10*3/uL MPV 10.3 (9.4-12.4) fL Immature Gran % (Auto) 0.3 (0.0-0.4) % Neut % (Auto) 71.4 (45-73) % Lymph % (Auto) 12.0 L (20-40) % [place] % (Auto) 10.3 (2-11) % Eos % (Auto) 5.2 H (0-4) % Baso % (Auto) 0.8 (0-2) % Lymph # (Auto) 1.4 (1.2-4.9) X10*3/uL [place] # (Auto) 1.2 (0.1-1.2) X10*3/uL Eos # (Auto) 0.6 H (0.0-0.4) X10*3/uL Baso # (Auto) 0.1 (0.0-0.2) X10*3/uL Abs Immat Gran (auto) 0.04 H (0.00-0.03) X10*3/uL Absolute Neuts (auto) 8.5 H (2.0-8.3) x10*3/uL Absolute Nucleated RBC 0.000 (0.0-0.012) X10*3/uL Nucleated RBC % (auto) 0.0 (0.0-0.2) /100WBC Sodium 142 (135-145) mmol/L Potassium 4.1 (3.3-5.1) mmol/L Chloride 100 (96-108) mmol/L Carbon Dioxide 27 (22-29) mmol/L Anion Gap 19 (12-20) BUN 31 H (9-16) mg/dL Creatinine 6.55 H* (0.5-1.4) mg/dL Estim Creat Clear Calc 11.2 Estimated GFR 8 Random Glucose 160 H (60-115) mg/dL Lactic Acid 1.7 (0.5-2.0) mmol/L Calcium 9.4 D (8.4-10.2) mg/dL Total Bilirubin 0.5 (0.0-1.0) mg/dL Direct Bilirubin 0.2 (0.0-0.5) mg/dL AST 16 (5-37) U/L ALT 8 (0-40) U/L Alkaline Phosphatase 51 (39-117) U/L Troponin I High Sens 7.2 D (<3.5-35.0) ng/L B-Natriuretic Peptide 2289 H (<100) pg/mL Total Protein 7.2 (6.5-8.0) g/dL Albumin 4.0 (3.5-5.0) g/dL Lipase 25 (8-78) U/L Influenza Type A (PCR) NEGATIVE (Negative) Influenza Type B (PCR) NEGATIVE (Negative) RSV RNA Qual (PCR) NEGATIVE (Negative) SARS-CoV-2 RNA (RT-PCR) NEGATIVE (Negative) Independent Interpretation I performed an independent interpretation of an: EKG ( Normal sinus rhythm at 90 beats per minutes, normal axis deviation, prolonged QT interval, no ST-T changes, no change from previous EKG.) and Plain X-Ray ( Chest:1. Bilateral low lung volumes. 2. Prominence of pulmonary vasculature. 3. Interstitial prominence. 4. Bibasilar atelectasis. ) Radiology Impression Discussion of test interpretation with radiology: I have reviewed the radiologist's reading. Chronic Conditions Patient?s care impacted by: Other ( Chronic renal insufficiency and hemodialysis.) Discharge Plan Discharge Clinical Impression: End stage renal disease on dialysis, Pulmonary congestion, Hypoxia Patient Disposition: Admitted As Inpatient
[2023-10-29 09:41] LABS: MANUAL DIFF FLAG NO
[2023-10-29] MEDS: Furosemide 20 MG/2 ML VIAL IVPUSH (09:44)
[2023-10-29] MEDS: Nitroglycerin 2 % Oint 1 GM Packet 1 INCH TRANSDERMA (09:44)
[2023-10-29] MEDS: ondansetron HCL 4 MG/2 ML VIAL IVPUSH ×2 (09:44→17:49)
[2023-10-29 09:45] LABS: Basophils Absolute Auto 0.1 X10*3/uL (0.0-0.2); Basophils Percent Auto 0.8 % (0-2); Eosinophils Absolute Auto 0.6 X10*3/uL (0.0-0.4); Eosinophils Percent Auto 5.2 % (0-4); Hematocrit 31.4 % (42.0-52.0); Hemoglobin 10.6 g/dl (14.0-18.0); Imm Gran Abs Auto 0.04 X10*3/uL (0.00-0.03); Imm Gran Pct Auto 0.3 % (0.0-0.4); Lymphocytes Absolute Auto 1.4 X10*3/uL (1.2-4.9); Mean Corpuscular HGB Conc 33.8 g/dl (31.0-36.0); Mean Corpuscular Hemoglobin 30.8 pg (27.0-33.0); Mean Corpuscular Volume 91.3 fL (80.0-98.0); Mean Platelet Volume 10.3 fL (9.4-12.4); Monocytes Absolute Auto 1.2 X10*3/uL (0.1-1.2); Monocytes Percent Auto 10.3 % (2-11); Neutrophils Absolute Auto 8.5 x10*3/uL (2.0-8.3); Neutrophils Percent Auto 71.4 % (45-73); Platelet Count 319 X10*3/uL (160-400); Red Blood Count 3.44 X10*6/uL (4.60-5.80); Red Cell Distribution Width 13.8 % (11.0-16.0); White Blood Count 11.9 X10*3/uL (4.8-10.8)
[2023-10-29 10:06] LABS: B Type Natriuretic Peptide 2289 pg/mL (<100)
[2023-10-29 10:42] LABS: Influenza A PCR NEGATIVE (Negative); Influenza B PCR NEGATIVE (Negative); Resp Syncy Virus RNA Qual PCR NEGATIVE (Negative); SARS COV2 PCR INHOUSE NEGATIVE (Negative)
[2023-10-29 10:54] LABS: Lactic Acid 1.7 mmol/L (0.5-2.0)
[2023-10-29 11:05] LABS: Alanine Aminotransferase 8 U/L (0-40); Alkaline Phosphatase 51 U/L (39-117); Anion Gap 19 (12-20); Aspartate Amino Transferase 16 U/L (5-37); Bilirubin Direct 0.2 mg/dL (0.0-0.5); Bilirubin Total 0.5 mg/dL (0.0-1.0); Blood Urea Nitrogen 31 mg/dL (9-16); Calcium 9.4 mg/dL (8.4-10.2); Carbon Dioxide 27 mmol/L (22-29); Chloride 100 mmol/L (96-108); Creatinine Clr Calc Pharmacy 11.2; Estimated Glomerular Filt Rate 8; Glucose Random 160 mg/dL (60-115); Lipase 25 U/L (8-78); Potassium 4.1 mmol/L (3.3-5.1); Sodium 142 mmol/L (135-145); Total Protein 7.2 g/dL (6.5-8.0)
[2023-10-29 11:06] LABS: Troponin-I High Sensitivity 7.2 ng/L (<3.5-35.0)
--- NOTE | 2023-10-29 12:18 | PC.NURSE ---
coming from home for increased difficulty breathing. patient receives dialysis mon, wed, thu. reports completing dialysis yesterday and upon arrival home began to experience diff breathing. 80's on room air upon arrival. IV established, labs drawn and sent. respiratory at bedside upon arrival. patient now reporting improvement in breathing. placed on oxymask d/t oxygen dropping into 80's while sleeping.
--- NOTE | 2023-10-29 15:42 | PM.IMHP ---
History of Present Illness Date of Service: 10/29/23 Chief Complaint: Shortness of breath 68 years old male with PMH of DMII, ESRD on HD, HTN, anxiety among others who presents to the hospital complaining of difficuties breathing started last night. The patient reports doing well earlier. He had dialysis session yesterday and ended up in dry weight. by the end of the day he started feeling weak and having difficulties breathing with associated generalized pain. cough, fever and chills. No chest pain, palpitations, nausea, vomiting, diarrhea or urinary symptoms. In ED he required up to 10L to keep his sats in 90s%. CXR showed increase vasculature and basilar atelactasis. Admitted for urgent dialysis and further management. Review of Systems Review of Systems: reporting fever, chills and generalized weakness No chest pain, palpitation having shortness of breath or coughing No abdominal pain, nausea or vomiting No urinary symptoms No any rash or wounds PMFSH Medical History ESRD needing dialysis DONIS (acute kidney injury) End stage renal disease on dialysis Diabetes Kidney failure HTN (hypertension) Social History Household Members: Spouse Housing: House Alcohol intake: never Patient Tobacco Use Status: Never used Tobacco Advance Directives: Yes Advance Directives on File: Yes Advance Directives Date on File: 09/07/23 service: No Meds Allergies Allergy/AdvReac Type Severity Reaction Status Date / Time Penicillins [PENICILLINS] Allergy Unknown RASH Verified 07/11/21 06:26 tramadol [From ULTRAM] Allergy Unknown RASH Verified 07/11/21 06:26 trazodone [TRAZODONE] Allergy Unknown PRIAPISM Verified 07/11/21 06:26 risperidone [RISPERIDONE] AdvReac Severe dizzy, EPS Verified 07/11/21 06:26 Active Medications: Current Medications Acetaminophen (Acetaminophen 325 Mg Tablet) 650 mg PO Q6H PRN PRN Reason: Pain, Mild (Pain Scale 1-3) Albuterol/Ipratropium (Albuterol/Iprat 2.5/0.5mg 3 Ml Ampul.Neb) 3 ml INHALE ONCE ONE Stop: 10/29/23 15:40 Guaifenesin (Guaifenesin La 600 Mg Tab.Er.12h) 600 mg PO BID FRANCINE Heparin Sodium (Porcine) (Heparin Sodium,Porcine 5,000 Unit/Ml Vial) 5,000 unit SUBCUT Q12H FRANCINE Insulin Human Lispro (Insulin Lispro 100 Unit/Ml 3 Ml Vial) 0 unit SUBCUT QIDACHS [facility]; Protocol Methylprednisolone Sodium Succinate (Methylprednisolone Sod Succ 125 Mg/2 Ml Vial) 125 mg IVPUSH ONCE ONE Stop: 10/29/23 15:40 Ondansetron HCl (Ondansetron Hcl 4 Mg/2 Ml Vial) 4 mg IVPUSH Q8H PRN PRN Reason: Nausea and Vomiting Home Medications Medication Instructions Recorded Confirmed Last Taken Type atenolol 100 mg tablet 1 tab PO DAILY 07/11/21 09/03/23 Unknown History blood sugar diagnostic (FreeStyle 07/11/21 07/11/21 Unknown History Lite Strips) dextroamphetamine-amphetamine 20 1 tab PO TID 07/11/21 09/03/23 Unknown History mg tablet levothyroxine 137 mcg tablet 1 tab PO DAILY@0600 07/11/21 09/03/23 Unknown History pen needle, diabetic 31 gauge x 07/11/21 07/11/21 Unknown History 03/03 (BD Ultra-Fine Short Pen Needle) amlodipine 5 mg tablet 10 mg PO DAILY 09/03/23 09/03/23 Unknown History clonazepam 0.5 mg tablet 0.5 mg PO TID PRN Anxiety 09/03/23 09/03/23 Unknown History albuterol sulfate 90 mcg/actuation 2 puff inhalation Q4-6H PRN 10/29/23 Unknown History aerosol inhaler (Ventolin HFA) Shortness Of Breath losartan 25 mg tablet 25 mg PO DAILY 10/29/23 Unknown History oxycodone 5 mg tablet 10 mg PO BID PRN severe pain 10/29/23 Unknown History prochlorperazine maleate 10 mg 10 mg PO DAILY PRN nausea 10/29/23 Unknown History tablet Physical Exam Vital Signs and Narrative: Vital Signs: Last Vital Signs Temp 98.8 F 10/29/23 11:09 Pulse 85 10/29/23 14:13 Resp 16 10/29/23 14:13 BP 160/83 H 10/29/23 14:13 Pulse Ox 100 10/29/23 14:13 O2 Del Method Oxymask 10/29/23 14:13 O2 Flow Rate 10 10/29/23 14:13 BMI result Body Mass Index 30.1 Const: Other: Constitutional : Awake, interactive, not in distress Neck : Normal inspection, Supple Cardiovascular : RRR, no JVP, no lower extremity edema Respiratory : decreased bilateral air entry, bilateral basal crackles, expiratory ronchi Gastrointestinal: soft, lax, Normal bowel sounds, Non tender Skin : Warm, Dry Neurological : Alert & oriented x3, No focal deficit Results Labs 10/29/23 09:36 10/29/23 10:26 Labs: Laboratory Results - last 24 hr 10/29/23 10/29/23 09:36 10:26 MCV 91.3 MCH 30.8 MCHC 33.8 RDW 13.8 Plt Count 319 D MPV 10.3 Immature Gran % (Auto) 0.3 Neut % (Auto) 71.4 Lymph % (Auto) 12.0 L [place] % (Auto) 10.3 Eos % (Auto) 5.2 H Baso % (Auto) 0.8 Lymph # (Auto) 1.4 [place] # (Auto) 1.2 Eos # (Auto) 0.6 H Baso # (Auto) 0.1 Abs Immat Gran (auto) 0.04 H Absolute Neuts (auto) 8.5 H Absolute Nucleated RBC 0.000 Nucleated RBC % (auto) 0.0 Anion Gap 19 Estim Creat Clear Calc 11.2 Estimated GFR 8 Random Glucose 160 H Lactic Acid 1.7 Calcium 9.4 D Total Bilirubin 0.5 Direct Bilirubin 0.2 AST 16 ALT 8 Alkaline Phosphatase 51 B-Natriuretic Peptide 2289 H Total Protein 7.2 Albumin 4.0 Lipase 25 Influenza Type A (PCR) NEGATIVE Influenza Type B (PCR) NEGATIVE RSV RNA Qual (PCR) NEGATIVE SARS-CoV-2 RNA (RT-PCR) NEGATIVE Imaging Radiologist's Impressions: Impressions Chest X-Ray 10/29/23 09:44 IMPRESSION: 1. Bilateral low lung volumes. 2. Prominence of pulmonary vasculature. 3. Interstitial prominence. 4. Bibasilar atelectasis. Assessment and Plan (1) Hypoxia: Status: Acute (2) Pulmonary congestion: Status: Acute (3) End stage renal disease on dialysis: Status: Acute (4) Pulmonary edema: Status: Acute Plan 68 years old male with PMH of DMII, ESRD on HD, HTN, anxiety among others who presents to the hospital complaining of difficulties breathing started last night. Acute hypoxic respiratory failure 2/2 FLuid overload, possible infection requiring up to 10L to maintain O2 sat in 90s CXR showing increase markings and bibasal atelactasis Cover with Ceftriaxone empirically Incentive spirometry and Mucinex Check viral panel Duonebs and Steroids Plan for urgent dialysis Type 2 DM POC, Insulin Diabetic diet HTN Cotninue Amlodipine and Atenolol Anxiety Home meds DVT PPx Heparin SC The patient will likely need 2 overnight hospital stay for treatment of hypoxemia pending clinical improvement. Quality Stroke Does the patient have a stroke diagnosis?: No VTE Prior VTE?: No VTE Risk Level:: Medical - moderate - high VTE Device Contraindication: Treatment Not Indicated VTE Drug Contraindication: N/A - Med Ordered
[2023-10-29] MEDS: Albuterol/Iprat 2.5/0.5MG 3 ML AMPUL.NEB INHALE ×2 (15:53→21:01)
--- NOTE | 2023-10-29 16:24 | PC.NURSE ---
late entry: patient became increasingly short of breath and tachypneic. respiratory at bedside and placed patient onto cpap - hospitalist aware. plan for dialysis.
--- NOTE | 2023-10-29 16:53 | PM.EVENT ---
Event Note Date of Service: 10/29/23 Event Note: Patient is a 68 Y M with ESRD on HD M//, last dialysis session W, reportedly full session, brought to dry weight; patient reports since consuming copious fluids; patient presents to emergency department earlier today with dyspnea, found to have chest x-ray demonstrating vascular congestion; initially admitted to medicine with plans for urgent dialysis; ICU consulted given worsening dyspnea and hypoxia, necessitating BiPAP; upon evaluation, patient on BiPAP, not in overt distress, able to speak in short sentences; appreciable rales L greater than R; no appreciable rhonchi, wheezing; S1, S2; abdomen soft, non-distended, no appreciable tenderness; decision made to transfer to ICU and expedite dialysis Time Spent With Patient Time: Total time managing care of this patient today ____ minutes.
--- NOTE | 2023-10-29 16:54 | PHA.MEDREC ---
Pharmacy Consult ? Medication Reconciliation Pharmacy has completed the medication reconciliation. Patient confirmed medications based on previous medical history and pharmacy claim history. Patient takes adderall QD instead of prescriptions TID sig. Patient reports using prn lantus about 2 times per week. He wasn't able to confirm units but script was for 50 units. Patient is taking oxycodone once per day instead of BID prn Noris Callahan [employer]
--- NOTE | 2023-10-29 17:48 | PC.NURSE ---
patient difficult stick, phlebotomy unsuccessful in attempt to obtain blood work. patient appears to be resting quietly at this time, remains on cpap - tachypneic
[2023-10-29] MEDS: Heparin Sodium,Porcine 5,000 UNIT/ML VIAL 5000 UNIT SUBCUT (17:49)
[2023-10-29] MEDS: methylPREDNISolone Sod Succ 125 MG/2 ML VIAL IVPUSH (17:49)
[2023-10-29] MEDS: Morphine Sulfate 2 MG/ML CARTRIDGE 1 MG IVPUSH (17:49)
[2023-10-29] MEDS: cefTRIAXone sodium 1 GM in 0.9 % Sodium Chloride 50 ML IV (18:21)
[2023-10-29] MEDS: Labetalol HCL 100 MG/20 ML VIAL 20 MG IVPUSH (19:23)
[2023-10-29 19:26] LABS: TSH reflex Free T4 8.84 uIU/mL (0.32-4.0)
[2023-10-29 19:38] LABS: Procalcitonin 0.82 ng/mL
[2023-10-29 19:59] LABS: Free T4 (Free Thyroxine) 1.26 ng/dL (0.71-1.85)
[2023-10-29 21:14] LABS: Glucose, Whole Blood 177 mg/dL (60-115)
[2023-10-29] MEDS: guaiFENesin LA 600 MG TAB.ER.12H PO (21:15)
[2023-10-29] MEDS: Acetaminophen 325 MG TABLET 650 MG PO (21:15)
[2023-10-29] MEDS: Insulin Lispro 100 UNIT/ML 3 ML VIAL SUBCUT (21:18)
[2023-10-30] VITALS (18 sets, daily range): BP systolic 139–166; BP diastolic 68–90; PULSE 74–88; RESP 16–30; TEMP 36–36.9; O2SAT 90–100; BMI 25.6
--- NOTE | 2023-10-30 02:13 | PM.CCN ---
Critical Care Event Note Summary Date of Service: 10/30/23 Code activated: No Narrative: This case had a high probability of a clinically significant, sudden, or life threatening deterioration of this patient's condition which required my full and direct attention, intervention and personal management. Critical Care Time (minutes): 45 Comment: Patient was admitted to these ICU earlier on due to acute pulmonary edema, hypertensive urgency, fluid overload in need of hemodialysis. ?Patient did receive a 2 hour hemodialysis treatment, his blood pressure was treated with labetalol and he was placed on BiPAP.? The patient had been stable and was doing well, sleeping until he woke up around 02:00 o'clock in the morning today, confused, agitated, verbally aggressive, wanting to leave the room. On exam 154/85, 85, 18, 89% on 2 L nasal cannula. Alert and oriented to person but not to place or time, verbally aggressive, swearing. Otherwise speaking in full sentences, no dysarthria, there is no receptive or expressive aphasia. Musculoskeletal: ?Moving all 4 extremities upon request at the major joints of flexion-extension with 5/5 strength, no calf edema or asymmetry. Neuro otherwise as above, cranial nerves 2-12 appear grossly intact.? There is no pronator drift, no facial droop, tongue protrudes midline without any deviation.? Strength is 5/5 bilaterally of the upper and lower extremities. Patient was very upset and wanted to talk to his which we took advantage for clarifying what his underlying mental status is on a normal basis.? I did speak to Kyara patient's over the phone and she states that he is never confused and his usually very cooperative and calm, in addition she states that he was fully aware when he came into the hospital. Assessment Acute mental status changes /ro hemorrhage; ischemic stroke, metabolic or hypertensive encephalopathy Plan of care Given the above-mentioned, and the fact that his blood pressure has been elevated, I am concerned that the patient could have some type of intracranial pathology included but not limited to intracranial hemorrhage; acute ischemia (stroke) Will order stat head CT to rule out the above.? We will monitor closely, neuro checks every 1 hour will decide if further workup is warranted or needed after the head CT is done. 0230 received a phone call from [facility] stating that there is no acute findings including no intracranial hemorrhage and no evidence of ischemic stroke, this does not rule out TIA. Patient seems more cooperative, wanting water, he did have a couple sips of without any problem swallowing.? Will monitor him closely. I do not think the patient needs a CT angiogram of the head and neck for I do not suspect a large vessel emboli given his lack of neurological deficits. His confusion, agitation is getting better as time goes by and he is more cooperative. Again there is no motor neurological deficits noted otherwise therefore I will not order further images. Total critical care time spent with this patient 45 minutes ?Case discussed with Dr. Baird
[2023-10-30] MEDS: oxyCODONE HCl Immed Release 5 MG TABLET PO ×2 (03:34→07:33)
[2023-10-30] MEDS: Heparin Sodium,Porcine 5,000 UNIT/ML VIAL 5000 UNIT SUBCUT ×2 (03:37→14:21)
--- NOTE | 2023-10-30 03:51 | PC.NURSE ---
At approximately 2:00 am patient had removed his CPAP mask and oxygen saturation probe. This RN attempted to place patient back on CPAP and was met with resistance from patient. Patient presented as agitated and disoriented to place and situation. Patient re-oriented, and became aggressive with his speech. Provider was at bedside and security called. Patient was transported for a CT of the head. Upon return patient more cooperative and interactions amicable.
[2023-10-30 05:33] LABS: Basophils Percent Auto 0.2 % (0-2); Hematocrit 29.2 % (42.0-52.0); Hemoglobin 9.9 g/dl (14.0-18.0); Imm Gran Abs Auto 0.06 X10*3/uL (0.00-0.03); Imm Gran Pct Auto 0.7 % (0.0-0.4); Lymphocytes Absolute Auto 0.6 X10*3/uL (1.2-4.9); Lymphocytes Percent Auto 6.5 % (20-40); MANUAL DIFF FLAG SCAN; Mean Corpuscular HGB Conc 33.9 g/dl (31.0-36.0); Mean Corpuscular Hemoglobin 30.3 pg (27.0-33.0); Mean Corpuscular Volume 89.3 fL (80.0-98.0); Mean Platelet Volume 10.4 fL (9.4-12.4); Monocytes Absolute Auto 0.1 X10*3/uL (0.1-1.2); Monocytes Percent Auto 0.8 % (2-11); Neutrophils Absolute Auto 7.8 x10*3/uL (2.0-8.3); Neutrophils Percent Auto 91.8 % (45-73); Platelet Count 269 X10*3/uL (160-400); Red Blood Count 3.27 X10*6/uL (4.60-5.80); Red Cell Distribution Width 13.9 % (11.0-16.0); SCAN SMEAR FLAG 1; White Blood Count 8.5 X10*3/uL (4.8-10.8)
[2023-10-30 05:56] LABS: SLIDE REVIEW VERIFIED
[2023-10-30] MEDS: Levothyroxine Sodium 112 MCG, Levothyroxine Sodium 25 MCG 137 MCG PO (06:08)
[2023-10-30 06:14] LABS: Anion Gap 23 (12-20); Blood Urea Nitrogen 45 mg/dL (9-16); Calcium 9.4 mg/dL (8.4-10.2); Carbon Dioxide 21 mmol/L (22-29); Chloride 98 mmol/L (96-108); Creatinine Clr Calc Pharmacy 7.9; Estimated Glomerular Filt Rate 7; Glucose Random 235 mg/dL (60-115); Potassium 4.6 mmol/L (3.3-5.1); Sodium 137 mmol/L (135-145)
[2023-10-30 07:18] LABS: Glucose, Whole Blood 208 mg/dL (60-115)
[2023-10-30] MEDS: guaiFENesin LA 600 MG TAB.ER.12H PO ×2 (07:34→20:52)
--- NOTE | 2023-10-30 07:34 | P.PNCC_ITS ---
Subjective Subjective Date of Service: 10/30/23 Interval History: received hemodialysis 10/29 PM, removed 3L; improvement of hypoxia, CPAP discontinued Critical Care Time (minutes): 60 Physical Exam 2 Vital Signs: Vital Signs: Last Vital Signs Temp 97.5 F 10/30/23 03:59 Pulse 82 10/30/23 07:00 Resp 23 H 10/30/23 07:00 BP 165/90 H 10/30/23 07:00 Pulse Ox 90 L 10/30/23 07:00 O2 Del Method Nasal Cannula 10/30/23 07:00 O2 Flow Rate 4 10/30/23 07:00 FiO2 40 10/30/23 00:51 BMI result Body Mass Index 25.6 Const: General: cooperative, healthy appearing, comfortable, no acute distress, well developed, alert, awake and Physically active O rientation/consciousness: patient oriented x3 HEENT: Head: Yes normal to inspection, Yes normocephalic and Yes atraumatic Eyes: General: appearance normal, both eyes and all related structures Neck: Neck: Yes normal visual inspection and Yes supple Chest: Chest palpation & inspection: normal inspection of the chest Resp: Other: markedly improved rales; no appreciable rhonchi, wheezing throughout Effort & Inspection: normal respiratory effort Cardio: Rate: regular rate Rhythm: regular rhythm GI: Inspection: Yes normal to inspection, No Abdominal wall edema and No distended Palpation (GI): Soft to palpation, not firm, nontender, no guarding and not rigid Skin: General skin exam: no rashes or lesions noted Neuro: General: patient oriented x3, tone normal, moves all extremities and no focal motor deficits Extrem: General: Yes normal to inspection, Yes capillary refill normal and Yes no clubbing, cyanosis or edema Psych: Appearance: grossly normal Objective Data Labs 10/30/23 05:15 10/30/23 05:15 Labs: Laboratory Results - last 24 hr 10/29/23 10/29/23 10/29/23 09:36 10:26 18:42 WBC 11.9 H RBC 3.44 L Hgb 10.6 L Hct 31.4 L MCV 91.3 MCH 30.8 MCHC 33.8 RDW 13.8 Plt Count 319 D MPV 10.3 Immature Gran % (Auto) 0.3 Neut % (Auto) 71.4 Lymph % (Auto) 12.0 L [place] % (Auto) 10.3 Eos % (Auto) 5.2 H Baso % (Auto) 0.8 Lymph # (Auto) 1.4 [place] # (Auto) 1.2 Eos # (Auto) 0.6 H Baso # (Auto) 0.1 Abs Immat Gran (auto) 0.04 H Absolute Neuts (auto) 8.5 H Absolute Nucleated RBC 0.000 Nucleated RBC % (auto) 0.0 Smear Tech's Comments Hold Purple Top SEE NOTE Sodium 142 Potassium 4.1 Chloride 100 Carbon Dioxide 27 Anion Gap 19 BUN 31 H Creatinine 6.55 H* Estim Creat Clear Calc 11.2 Estimated GFR 8 POC Glucose Random Glucose 160 H Lactic Acid 1.7 Calcium 9.4 D Total Bilirubin 0.5 Direct Bilirubin 0.2 AST 16 ALT 8 Alkaline Phosphatase 51 Troponin I High Sens 7.2 D B-Natriuretic Peptide 2289 H Total Protein 7.2 Albumin 4.0 Lipase 25 Procalcitonin 0.82 TSH 8.84 H Free T4 1.26 Influenza Type A (PCR) NEGATIVE Influenza Type B (PCR) NEGATIVE RSV RNA Qual (PCR) NEGATIVE SARS-CoV-2 RNA (RT-PCR) NEGATIVE Blood Type A Positive Antibody Screen NEGATIVE 10/29/23 10/30/23 10/30/23 21:10 05:15 07:14 WBC 8.5 RBC 3.27 L Hgb 9.9 L Hct 29.2 L MCV 89.3 MCH 30.3 MCHC 33.9 RDW 13.9 Plt Count 269 MPV 10.4 Immature Gran % (Auto) 0.7 H Neut % (Auto) 91.8 H Lymph % (Auto) 6.5 L [place] % (Auto) 0.8 L Eos % (Auto) 0.0 Baso % (Auto) 0.2 Lymph # (Auto) 0.6 L [place] # (Auto) 0.1 Eos # (Auto) 0.0 Baso # (Auto) 0.0 Abs Immat Gran (auto) 0.06 H Absolute Neuts (auto) 7.8 Absolute Nucleated RBC 0.000 Nucleated RBC % (auto) 0.0 Smear Tech's Comments VERIFIED Hold Purple Top Sodium 137 Potassium 4.6 Chloride 98 Carbon Dioxide 21 L Anion Gap 23 H BUN 45 H Creatinine 8.21 H* Estim Creat Clear Calc 7.9 Estimated GFR 7 POC Glucose 177 H 208 H Random Glucose 235 H Lactic Acid Calcium 9.4 Total Bilirubin Direct Bilirubin AST ALT Alkaline Phosphatase Troponin I High Sens B-Natriuretic Peptide Total Protein Albumin Lipase Procalcitonin TSH Free T4 Influenza Type A (PCR) Influenza Type B (PCR) RSV RNA Qual (PCR) SARS-CoV-2 RNA (RT-PCR) Blood Type Antibody Screen Progress Note: A&P Assessment and plan (1) End stage renal disease on dialysis: Status: Acute (2) Pulmonary edema: Status: Acute (3) Acute hypoxic respiratory failure: Status: Acute Plan Patient is a 68 Y M with ESRD on hemodialysis //, last full session W, presenting on 10/29 with dyspnea in setting of polydipsia, found to have pulmonary edema, c/b acute hypoxic respiratory failure necessitating NIV, admitted to ICU, received dialysis on 10/29 PM and 10/30 AM with improvement of hypoxia N: chronic pain, to verify home opioid regimen CV: hypertension in setting of volume overload; on amlodipine, atenolol R: acute hypoxic respiratory failure d/t volume overload d/t polydipsia, improved GI: diabetic diet w/ fluid restriction, 1 L per day : ESRD on HD //; last session 10/30 H: no acute issues; DVT prophlyaxis w/ heparin SQ ID: no acute issues E: diabetes mellitus, c/b hyperglycemia; insulin sliding scale P: no acute issues Quality Stroke Does the patient have a stroke diagnosis?: No VTE Prior VTE?: No VTE Risk Level:: Medical - moderate - high VTE Device Contraindication: Treatment Not Indicated VTE Drug Contraindication: N/A - Med Ordered
[2023-10-30] MEDS: Insulin Lispro 100 UNIT/ML 3 ML VIAL SUBCUT ×4 (07:56→20:52)
[2023-10-30 08:29] LABS: Appearance Urine Clear; Color Urine Yellow; Glucose Urine UA 250 mg/dL (Negative); Leukocyte Esterase Urine Negative (Negative); Nitrite Urine Negative (Negative); PH >= 9.0 (5.0-9.0); Specific Gravity - Urine 1.015 (1.005-1.025); UMIC TRIGGER UACC YES; Urine Blood Trace (Negative); Urine Ketones Trace mg/dL (Negative); Urine Protein 300 (3+) mg/dL (Neg-Trace)
[2023-10-30] MEDS: Albuterol/Iprat 2.5/0.5MG 3 ML AMPUL.NEB INHALE (08:35)
[2023-10-30 08:38] LABS: Bacteria Urine None Seen (None Seen); RBC Urine 0-2 /HPF (0-2); Squamous Epithelial Cell Urine 0-2 /HPF (0-2); WBC Urine 0-5 /HPF (0-5)
[2023-10-30 09:14] LABS: Adenovirus PCR Not Detected (Not Detect.); Bordetella parapertussis PCR Not Detected (Not Detect.); Bordetella pertussis PCR Not Detected (Not Detect.); Chlamydia pneumoniae PCR Not Detected (Not Detect.); Coronavirus 229E PCR Not Detected (Not Detect.); Coronavirus HKU1 PCR Not Detected (Not Detect.); Coronavirus NL63 PCR Not Detected (Not Detect.); Coronavirus OC43 PCR Not Detected (Not Detect.); Human metapneumovirus PCR Not Detected (Not Detect.); Influenza A PCR Not Detected (Not Detect.); Influenza B PCR Not Detected (Not Detect.); Mycoplasma pneumoniae PCR Not Detected (Not Detect.); Parainfluenza 1 PCR Not Detected (Not Detect.); Parainfluenza 2 PCR Not Detected (Not Detect.); Parainfluenza 3 PCR Not Detected (Not Detect.); Parainfluenza 4 PCR Not Detected (Not Detect.); RSV PCR Not Detected (Not Detect.); Rhino/Enterovirus PCR Not Detected (Not Detect.)
[2023-10-30 09:33] LABS: Estimated Average Glucose 91 mg/dL; Hemoglobin A1c % 4.8 % (<6.0)
[2023-10-30 09:41] LABS: SARS-CoV-2 PCR Not Detected (Not Detect.)
[2023-10-30] MEDS: Dextroamphetamine/Amphetamine XR 10 MG CAP.ER.24H 20 MG PO (10:50)
[2023-10-30 11:24] LABS: Glucose, Whole Blood 219 mg/dL (60-115)
[2023-10-30] MEDS: Acetaminophen 325 MG TABLET 650 MG PO (12:34)
[2023-10-30] MEDS: atenoloL 100 MG TABLET PO (12:35)
[2023-10-30] MEDS: amLODIPine Besylate 10 MG TABLET PO (12:35)
--- NOTE | 2023-10-30 13:32 | PM.CNNEP ---
History of Present Illness Reason for Consult Consult date: 10/30/23 Reason for consult: Hyperrvolemia Chief Complaint Chief complaint: Hypoxia History of Present Illness Narrative: 68-year-old male with ESRD on MWF in [facility] HD Unit brought in by EMS for progressive worsening of shortness of breath. He typically has 4 hours HD treatments. He had not been compliant with fluid restriction. His blood pressure has not been at goal. He claims to be compliant with dialysis treatments. He feels increasingly thirsty and consumes a lot of liquid by mouth. He does not have any chest pain, palpitation, syncope but has been having fluid retention. He has been becoming hypoxic at 85% on room air & patient in the process of getting prescribed supplemental oxygen by PCP( as per him). Patient also stated that he had a fever last night of 100.6 prior to presentation. Further workup done showed him to be hypervolemic. Nephrology has been consulted to assist in his clinical care during his current hospital stay Review of Systems Review of Systems Yes all other systems are reviewed and are negative PMFSH Past Medical History Medical History (Updated 10/30/23 @ 13:39 by Ramo Allen MD) ESRD needing dialysis DONIS (acute kidney injury) End stage renal disease on dialysis Diabetes Kidney failure HTN (hypertension) Social History Social History Household Members: Spouse Housing: House Do you presently have visiting nurse or other home services: No Alcohol intake: never Patient Tobacco Use Status: Never used Tobacco Advance Directives Date on File: 09/07/23 service: No Meds Allergies Allergy/AdvReac Type Severity Reaction Status Date / Time Penicillins [PENICILLINS] Allergy Unknown RASH Verified 07/11/21 06:26 tramadol [From ULTRAM] Allergy Unknown RASH Verified 07/11/21 06:26 trazodone [TRAZODONE] Allergy Unknown PRIAPISM Verified 07/11/21 06:26 risperidone [RISPERIDONE] AdvReac Severe dizzy, EPS Verified 07/11/21 06:26 Active Medications: Current Medications Acetaminophen (Acetaminophen 325 Mg Tablet) 650 mg PO Q6H PRN PRN Reason: Pain, Mild (Pain Scale 1-3) Last Admin: 10/30/23 12:34 Dose: 650 mg Albuterol/Ipratropium (Albuterol/Iprat 2.5/0.5mg 3 Ml Ampul.Neb) 3 ml INHALE RQ4H WHILE AWAKE PRN PRN Reason: Wheezing Amlodipine Besylate (Amlodipine Besylate 10 Mg Tablet) 10 mg PO DAILY [facility]; Protocol Last Admin: 10/30/23 12:35 Dose: 10 mg Amphetamine/Dextroamphetamine (Dextroamphetamine/Amphetamine Xr 10 Mg Cap.Er.24h) 20 mg PO DAILY [facility] Last Admin: 10/30/23 10:50 Dose: 20 mg Atenolol (Atenolol 100 Mg Tablet) 100 mg PO DAILY [facility]; Protocol Last Admin: 10/30/23 12:35 Dose: 100 mg Clonazepam (Clonazepam 0.5 Mg Tablet) 0.5 mg PO TID PRN PRN Reason: anxiety/restlessness Guaifenesin (Guaifenesin La 600 Mg Tab.Er.12h) 600 mg PO BID [facility] Last Admin: 10/30/23 07:34 Dose: 600 mg Heparin Sodium (Porcine) (Heparin Sodium,Porcine 5,000 Unit/Ml Vial) 5,000 unit SUBCUT Q12H [facility] Last Admin: 10/30/23 03:37 Dose: 5,000 unit Ceftriaxone Sodium 1 gm/ (Sodium Chloride) 50 mls @ 100 mls/hr IV Q24H [facility] Last Infusion: 10/29/23 19:30 Dose: Infused Insulin Human Lispro (Insulin Lispro 100 Unit/Ml 3 Ml Vial) 0 unit SUBCUT QIDACHS [facility]; Protocol Last Admin: 10/30/23 12:35 Dose: 4 unit Levothyroxine Sodium 112 mcg/ (Levothyroxine Sodium 25 mcg) 137 mcg PO DAILY@0600 [facility] Last Admin: 10/30/23 06:08 Dose: 137 mcg Losartan Potassium (Losartan Potassium 25 Mg Tablet) 25 mg PO DAILY [facility]; Protocol Omeprazole (Omeprazole 20 Mg Capsule.Dr) 20 mg PO BID@0630,1630 [facility] Ondansetron HCl (Ondansetron Hcl 4 Mg/2 Ml Vial) 4 mg IVPUSH Q8H PRN PRN Reason: Nausea and Vomiting Oxycodone HCl (Oxycodone Hcl Er 10 Mg Tab.Er.12h) 10 mg PO BID PRN PRN Reason: Pain, Moderate(Pain Scale 4-6) Home Medications Medication Instructions Recorded Confirmed Last Taken Type atenolol 100 mg tablet 1 tab PO DAILY 07/11/21 10/29/23 Unknown History blood sugar diagnostic (FreeStyle 07/11/21 07/11/21 Unknown History Lite Strips) dextroamphetamine-amphetamine 20 1 tab PO DAILY 07/11/21 10/29/23 Unknown History mg tablet levothyroxine 137 mcg tablet 1 tab PO DAILY@0600 07/11/21 10/29/23 Unknown History pen needle, diabetic 31 gauge x 07/11/21 07/11/21 Unknown History 03/03 (BD Ultra-Fine Short Pen Needle) amlodipine 5 mg tablet 10 mg PO DAILY 09/03/23 10/29/23 Unknown History clonazepam 0.5 mg tablet 0.5 mg PO TID PRN Anxiety 09/03/23 10/29/23 Unknown History albuterol sulfate 90 mcg/actuation 2 puff inhalation Q4-6H PRN 10/29/23 10/29/23 Unknown History aerosol inhaler (Ventolin HFA) Shortness Of Breath insulin glargine 100 unit/mL (3 50 unit subcut DAILY PRN 10/29/23 10/29/23 Unknown History mL) subcutaneous pen (Lantus Hyperglycemia Solostar U-100 Insulin) losartan 25 mg tablet 25 mg PO DAILY 10/29/23 10/29/23 Unknown History oxycodone 5 mg tablet 10 mg PO BID PRN severe pain 10/29/23 10/29/23 Unknown History prochlorperazine maleate 10 mg 10 mg PO DAILY PRN nausea 10/29/23 10/29/23 Unknown History tablet Physical Exam Vital Signs: Last Vital Signs Temp 97.5 F 10/30/23 12:00 Pulse 83 10/30/23 12:00 Resp 20 10/30/23 12:00 BP 166/89 H 10/30/23 12:00 Pulse Ox 100 10/30/23 12:00 O2 Del Method Nasal Cannula 10/30/23 12:00 O2 Flow Rate 1 10/30/23 12:00 FiO2 40 10/30/23 00:51 BMI result Body Mass Index 25.6 Const General: no acute distress Orientation/consciousness: patient oriented x3 HEENT Head: Yes normocephalic Mouth: Normal oral and palatal mucosa present Eyes EOM: EOMs intact bilaterally Neck Neck: Yes supple Resp Auscultation: diminished lung sounds Cardio Jugular venous distension: no JVD Rate: regular rate Heart sounds: Murmur heart sound present GI Palpation (GI): Soft to palpation Auscultation: normal bowel sounds General: Yes no CVA tenderness Back/Spine/Pelvis Back: no CVA tenderness Skin General skin exam: no rashes or lesions noted Neuro General: patient oriented x3 and moves all extremities Extrem Other: Has L UE AVF +; UE and LE edema Results Lab Results 10/30/23 05:15 10/30/23 05:15 Lab results: Chemistry 10/29/23 10/30/23 10:26 05:15 Sodium 142 137 Potassium 4.1 4.6 Carbon Dioxide 27 21 L BUN 31 H 45 H Creatinine 6.55 H* 8.21 H* Calcium 9.4 D 9.4 Hematology 10/29/23 10/30/23 09:36 05:15 WBC 11.9 H 8.5 Hgb 10.6 L 9.9 L Plt Count 319 D 269 Urinalysis 10/30/23 08:03 Urine Color Yellow Urine Appearance Clear Urine pH >= 9.0 Ur Specific Lund 1.015 Urine Protein 300 (3+) H Urine Glucose (UA) 250 H Urine Ketones Trace Urine Blood Trace H Urine Nitrite Negative Ur Leukocyte Esterase Negative Urine RBC 0-2 Urine WBC 0-5 Ur Squamous Epith Cells 0-2 Hyaline Casts 3-5 Assessment and Plan (1) End stage renal disease on dialysis: Status: Acute (2) HTN (hypertension): Qualifiers: Hypertension type: primary hypertension Qualified Code(s): I10 - Essential (primary) hypertension Status: Acute (3) Anemia in chronic kidney disease: Qualifiers: Chronic kidney disease stage: on chronic dialysis Qualified Code(s): N18.6 - End stage renal disease; D63.1 - Anemia in chronic kidney disease; Z99.2 - Dependence on renal dialysis Status: Acute (4) Secondary hyperparathyroidism (of renal origin): Status: Acute Plan He was urgently ultra filtrated on presentation with improvement in clinical status. He was put back on his dialysis schedule today. I saw him on dialysis as well. His dry weight needs to be brought down. His amlodipine can be discontinued and losartan can be maximized after bringing the dry weight down. He should be on a low-sodium, low potassium, low phosphorus diet with a fluid restriction. He should take phosphorus binders 3 times a day with meals. He had an echocardiogram 3 months ago as per the patient which is going to be repeated during this hospital stay. He has no obvious valvular or rhythm abnormalities precipitating his hyper volemia. We shall closely follow-up him up during his current hospital stay for continued care. Procedures Date of Service Date of Service: 10/30/23
[2023-10-30] MEDS: clonazePAM 0.5 MG TABLET PO (14:19)
--- NOTE | 2023-10-30 14:27 | MHC.CM.PN ---
Met with pt to review d/c planning needs: pt resides w/spouse and is independent w/all care needs. No DME or services used. Spouse to transport pt to home. Pt is requesting an O2 eval while here stating his home POX reads in the 80's. Will request from MD. If pt requires home O2 he will need a VNA - will await MD determination. IMM in chart, HCP verified and on file. CM to follow for changes in d/c needs.
--- NOTE | 2023-10-30 14:51 | PC.NURSE ---
Pt arrived to unit via be. A/O x4. C/O pain to legs and restless, requested Klonopin- given. will monitor
[2023-10-30] MEDS: Omeprazole 20 MG CAPSULE.DR PO (17:00)
[2023-10-30] MEDS: cefTRIAXone sodium 1 GM in 0.9 % Sodium Chloride 50 ML IV (17:02)
[2023-10-30 17:18] LABS: Glucose, Whole Blood 241 mg/dL (60-115)
[2023-10-30] MEDS: oxyCODONE HCl ER 10 MG TAB.ER.12H PO (17:57)
[2023-10-30 20:12] LABS: Glucose, Whole Blood 169 mg/dL (60-115)
[2023-10-30] MEDS: ondansetron HCL 4 MG/2 ML VIAL IVPUSH (21:03)
[2023-10-31] VITALS: BP 169/86; PULSE 74; RESP 16; TEMP 36.4; O2SAT 93
[2023-10-31] MEDS: Heparin Sodium,Porcine 5,000 UNIT/ML VIAL 5000 UNIT SUBCUT (03:15)
[2023-10-31 04:26] VITALS: BP 171/81; PULSE 71; RESP 18; TEMP 36.6; O2SAT 94
[2023-10-31 06:00] VITALS: BMI 24.2
[2023-10-31] MEDS: Levothyroxine Sodium 112 MCG, Levothyroxine Sodium 25 MCG 137 MCG PO (06:34)
[2023-10-31] MEDS: Omeprazole 20 MG CAPSULE.DR PO (06:34)
[2023-10-31 06:57] VITALS: BP 152/82; PULSE 76; RESP 17; TEMP 36.6; O2SAT 93
[2023-10-31 07:06] LABS: MANUAL DIFF FLAG NO
[2023-10-31 07:10] LABS: Glucose, Whole Blood 185 mg/dL (60-115)
[2023-10-31 07:22] LABS: Basophils Percent Auto 0.1 % (0-2); Eosinophils Percent Auto 0.1 % (0-4); Hemoglobin 10.8 g/dl (14.0-18.0); Imm Gran Abs Auto 0.12 X10*3/uL (0.00-0.03); Imm Gran Pct Auto 0.9 % (0.0-0.4); Lymphocytes Percent Auto 7.5 % (20-40); Mean Corpuscular HGB Conc 32.7 g/dl (31.0-36.0); Mean Corpuscular Hemoglobin 29.8 pg (27.0-33.0); Mean Corpuscular Volume 91.2 fL (80.0-98.0); Mean Platelet Volume 10.4 fL (9.4-12.4); Monocytes Absolute Auto 0.9 X10*3/uL (0.1-1.2); Monocytes Percent Auto 6.9 % (2-11); NRBC Pct Auto 0.2 /100WBC (0.0-0.2); Neutrophils Percent Auto 84.5 % (45-73); Platelet Count 345 X10*3/uL (160-400); Red Blood Count 3.62 X10*6/uL (4.60-5.80)
[2023-10-31] MEDS: Insulin Lispro 100 UNIT/ML 3 ML VIAL SUBCUT (08:05)
[2023-10-31] MEDS: ondansetron HCL 4 MG/2 ML VIAL IVPUSH (08:06)
[2023-10-31 08:09] LABS: Anion Gap 21 (12-20); Blood Urea Nitrogen 46 mg/dL (9-16); Calcium 9.6 mg/dL (8.4-10.2); Carbon Dioxide 23 mmol/L (22-29); Chloride 95 mmol/L (96-108); Glucose Random 174 mg/dL (60-115); Potassium 4.3 mmol/L (3.3-5.1); Sodium 135 mmol/L (135-145)
[2023-10-31 08:13] LABS: Creatinine Clr Calc Pharmacy 9.2; Estimated Glomerular Filt Rate 8
[2023-10-31] MEDS: atenoloL 100 MG TABLET PO (08:22)
[2023-10-31] MEDS: oxyCODONE HCl ER 10 MG TAB.ER.12H PO (08:22)
[2023-10-31] MEDS: clonazePAM 0.5 MG TABLET PO (08:22)
[2023-10-31] MEDS: guaiFENesin LA 600 MG TAB.ER.12H PO (08:22)
[2023-10-31] MEDS: amLODIPine Besylate 10 MG TABLET PO (08:22)
[2023-10-31] MEDS: Dextroamphetamine/Amphetamine XR 10 MG CAP.ER.24H 20 MG PO (08:22)
[2023-10-31 09:55] VITALS: PULSE 80; PULSE 89; O2SAT 100; O2SAT 99
--- NOTE | 2023-10-31 10:33 | P.DS_ITS ---
DS: Providers Provider Date of Service: 10/31/23 Date of admission: 10/29/23 15:00 Primary care physician: Matias Tan MD DS: Diagnosis Discharge Diagnosis (1) End stage renal disease on dialysis: Status: Acute (2) HTN (hypertension): Status: Acute (3) Anemia in chronic kidney disease: Status: Acute (4) Secondary hyperparathyroidism (of renal origin): Status: Acute (5) Acute hypoxic respiratory failure: Status: Acute (6) Pulmonary edema: Status: Acute DS: Summary Hospital Course Hospital Course: Admission note HPI 68 years old male with PMH of DMII, ESRD on HD, HTN, anxiety among others who presents to the hospital complaining of difficuties breathing started last night. The patient reports doing well earlier. He had dialysis session yesterday and ended up in dry weight. by the end of the day he started feeling weak and having difficulties breathing with associated generalized pain. cough, fever and chills. No chest pain, palpitations, nausea, vomiting, diarrhea or urinary symptoms. In ED he required up to 10L to keep his sats in 90s%. CXR showed increase vasculature and basilar atelactasis. Admitted for urgent dialysis and further management. Hospital course The patient was admitted for evaluation of Acute hypoxic respiratory failure secondary to pulmonary edema as seen on CXR showing increase markings and bibasal atelactasis. worsens shortly after admission requiring CPAP support and ICU stay for urgeny dialysis. A CT scan of head was done for altered mentation that came back negative. Pulmonary edema resolved after dialysis and the patient was evaluated for home O2 prior to discharge but was able to maintain his O2 in normal range with ambulation. Followed by nephrology team who advised to take his Phosphorus binder 3 times daily and low-sodium, low potassium, low phosphorus diet with a fluid restriction. Increase Losartan to 50 mg daily Monitor fluids intake Follow with dialysis as scheduled low-sodium, low potassium, low phosphorus diet with a fluid restriction Start Sevelamer as prescribed 3 times daily with meals Time Attestation Discharge coordination time: Greater than 30 minutes Quality: Safe Use of Opioids Does Pt have an Active Cancer Diagnosis on the Problem List?: No Quality: Stroke Does the patient have a stroke diagnosis?: No Physical Exam Vital Signs: Vital Signs: Last Vital Signs Temp 98 F 10/31/23 06:57 Pulse 76 10/31/23 06:57 Resp 17 10/31/23 06:57 BP 152/82 H 10/31/23 06:57 Pulse Ox 93 10/31/23 06:57 O2 Del Method Nasal Cannula 10/31/23 06:57 O2 Flow Rate 2 10/31/23 06:57 FiO2 40 10/30/23 00:51 BMI result Body Mass Index 24.2 Const: Other: Constitutional : Awake, interactive, not in distress Neck : Normal inspection, Supple Cardiovascular : RRR, no JVP, no lower extremity edema Respiratory : good bilateral air entry, no crackles, wheezes or rhonchi Gastrointestinal: soft, lax, Normal bowel sounds, Non tender Skin : Warm, Dry Neurological : Alert & oriented x3, No focal deficit , CN 2-12 within normal DS: Data Data Completed and Pending Completed studies during hospitalization [Text1]: Procedures Performance of Urinary Filtration, Intermittent, Less than 6 Hours Per Day (09/03/23) Labs on day of discharge: Laboratory Results - last 24 hr 10/30/23 10/30/23 10/30/23 11:21 16:08 20:06 WBC RBC Hgb Hct MCV MCH MCHC RDW Plt Count MPV Immature Gran % (Auto) Neut % (Auto) Lymph % (Auto) [place] % (Auto) Eos % (Auto) Baso % (Auto) Lymph # (Auto) [place] # (Auto) Eos # (Auto) Baso # (Auto) Abs Immat Gran (auto) Absolute Neuts (auto) Absolute Nucleated RBC Nucleated RBC % (auto) Sodium Potassium Chloride Carbon Dioxide Anion Gap BUN Creatinine Estim Creat Clear Calc Estimated GFR POC Glucose 219 H 241 H 169 H Random Glucose Calcium 10/31/23 10/31/23 06:45 07:06 WBC 13.0 H RBC 3.62 L Hgb 10.8 L Hct 33.0 L MCV 91.2 MCH 29.8 MCHC 32.7 RDW 14.0 Plt Count 345 D MPV 10.4 Immature Gran % (Auto) 0.9 H Neut % (Auto) 84.5 H Lymph % (Auto) 7.[address] [place] % (Auto) 6.9 Eos % (Auto) 0.1 Baso % (Auto) 0.1 Lymph # (Auto) 1.[address] [place] # (Auto) 0.9 Eos # (Auto) 0.0 Baso # (Auto) 0.0 Abs Immat Gran (auto) 0.12 H Absolute Neuts (auto) 11.0 H Absolute Nucleated RBC 0.030 H Nucleated RBC % (auto) 0.2 Sodium 135 Potassium 4.3 Chloride 95 L Carbon Dioxide 23 Anion Gap 21 H BUN 46 H Creatinine 7.04 H* Estim Creat Clear Calc 9.2 Estimated GFR 8 POC Glucose 185 H Random Glucose 174 H Calcium 9.6 Preliminary micro results at discharge 10/29/23 10:26 Blood Culture - Preliminary Blood - Venous No growth after 24 hours. 10/29/23 09:36 Blood Culture - Preliminary Blood - Venous No growth after [address] scan - head: Radiologist's impression: ITS Impressions Chest X-Ray 10/29/23 09:44 IMPRESSION: 1. Bilateral low lung volumes. 2. Prominence of pulmonary vasculature. 3. Interstitial prominence. 4. Bibasilar atelectasis. Head CT 10/30/23 02:22 IMPRESSION: No acute intracranial pathology. This critical result was discussed with Stoney TRONCOSO on 10/30/2023 at 2:30 AM. It was ascertained that the content and urgency of the report was understood at the time of direct communication. Discharge Plan Discharge Anticipated Discharge Date/Time: 10/31/23 10:28 Patient Disposition: Home, Self-Care Discharge Diagnosis: Pulmonary edema Referrals: Matias Tan MD [Primary Care Provider] - 1 Week Discharge Medications: New losartan 50 mg Tablet 50 mg PO DAILY Qty: 90 0RF Protocol: Hold for SBP< HOLD for SBP < : 90 omeprazole 20 mg Capsule,Delayed Release(Dr/Ec) 20 mg PO DAILY Qty: 90 0RF sevelamer carbonate 800 mg tablet 800 mg PO TID Qty: 90 2RF Rx Instructions: must administer with a meal/food Continued levothyroxine 137 mcg tablet 1 tab PO DAILY@0600 atenolol 100 mg tablet 1 tab PO DAILY (DME) FreeStyle Lite Strips Strip MISCELLANEOUS TID dextroamphetamine-amphetamine 20 mg tablet 1 tab PO DAILY (DME) pen needle, diabetic [BD Ultra-Fine Short Pen Needle] 31 gauge x 5/16 needle subcut DAILY clonazepam 0.5 mg tablet 0.5 mg PO TID PRN (Reason: Anxiety) amlodipine 5 mg tablet 10 mg PO DAILY insulin lispro [Humalog KwikPen Insulin] 100 unit/mL insulin pen 1 sliding scale dose subcut USEASDIRECTD Qty: 15 0RF prochlorperazine maleate 10 mg tablet 10 mg PO DAILY PRN (Reason: nausea) albuterol sulfate [Ventolin HFA] 90 mcg/actuation HFA aerosol inhaler 2 puff INHALATION Q4-6H PRN (Reason: Shortness Of Breath) oxycodone 5 mg tablet 10 mg PO BID PRN (Reason: severe pain) insulin glargine [Lantus Solostar U-100 Insulin] 100 unit/mL (3 mL) insulin pen 50 unit subcut DAILY PRN (Reason: Hyperglycemia) Discontinued losartan 25 mg tablet 25 mg PO DAILY Discharge Orders: Discharge Order (Routine); Ordered 10/31/23 Ordered By: Real Tai Diet: Advance to usual diet Activity on Discharge: As tolerated Stand Alone Forms: Patient Portal Discharge page Care Plan Goals: Read below Health Concerns: Read below Plan of Treatment: Read below Assessment: You were admitted for treatment of difficulties breathing requiring urgent dialysis for removal of extra fluids in your lungs with good response. Noticed to have elevated blood pressure readings. Increase Losartan to 50 mg daily Monitor fluids intake Follow with dialysis as scheduled low-sodium, low potassium, low phosphorus diet with a fluid restriction Start Sevelamer as prescribed 3 times daily wit
--- NOTE | 2023-10-31 11:58 | MHC.CM.PN ---
PT WILL DC HOME TODAY WITH NO SERVICES VIA PRIVATE TRANSPORT
[2023-11-02 07:42] LABS: Glucose, Whole Blood 192 mg/dL (60-115)
== END 2023-10-31 11:51 | disposition home or self-care (01) | DRG 640 ==
LOC: HO.ED 14:49 → HO.EDOVER 15:48 → HO.ICU 17:36 → HO.S3 10-30 12:47
PROVIDERS: Internal Medicine Critical Care Medicine; Admitting Provider Student in an Organized Health Care Education/Training Program; Emergency Provider Emergency Medicine; PCP Family Medicine; Visit Provider Student in an Organized Health Care Education/Training Program
DX: E87.70 Fluid overload, unspecified (principal); J96.01 Acute respiratory failure with hypoxia; N18.6 End stage renal disease; I12.0 Hypertensive chronic kidney disease with stage 5 chronic kidney disease or end stage renal disease; N25.81 Secondary hyperparathyroidism of renal origin; J98.11 Atelectasis; G89.29 Other chronic pain; D63.1 Anemia in chronic kidney disease; F41.9 Anxiety disorder, unspecified; E11.22 Type 2 diabetes mellitus with diabetic chronic kidney disease; Z20.822 Contact with and (suspected) exposure to COVID-19; Z91.119 Patient's noncompliance with dietary regimen due to unspecified reason; Z99.2 Dependence on renal dialysis; Z79.4 Long term (current) use of insulin; Z79.890 Hormone replacement therapy; Z79.899 Other long term (current) drug therapy
CPT/HCPCS: 0241U; 36415; 70450; 71045; 80048; 80076; 81001; 82947; 83036; 83605; 83690; 83880; 84145; 84439; 84443; 84484; 85025; 86850; 86900; 86901; 87040; 87633; 90999; 93005; 94660; 94799; 99285; J0696; J1644; J1920; J1940; J2270; J2405; J2930

== ENCOUNTER → 2023-10-29 09:31 | Outpatient (BNV) | payer MEDICARE, SELFPAY | PROVIDERS: Admitting Provider Student in an Organized Health Care Education/Training Program; Emergency Provider Emergency Medicine; PCP Family Medicine; Visit Provider Internal Medicine Cardiovascular Disease | DX: I45.81 Long QT syndrome (principal) | CPT/HCPCS: 93010 ==

== ENCOUNTER → 2023-10-29 15:00 | Outpatient (BNV) | payer MEDICARE, SELFPAY | PROVIDERS: Admitting Provider Student in an Organized Health Care Education/Training Program; Emergency Provider Emergency Medicine; PCP Family Medicine; Visit Provider Internal Medicine Nephrology | DX: I12.0 Hypertensive chronic kidney disease with stage 5 chronic kidney disease or end stage renal disease (principal); N18.6 End stage renal disease; Z99.2 Dependence on renal dialysis; N25.81 Secondary hyperparathyroidism of renal origin; D63.1 Anemia in chronic kidney disease | CPT/HCPCS: 99223 ==

== ENCOUNTER → 2023-10-29 15:00 | Outpatient (BNV) | payer MEDICARE, SELFPAY | PROVIDERS: Admitting Provider Student in an Organized Health Care Education/Training Program; Emergency Provider Emergency Medicine; PCP Family Medicine; Visit Provider Internal Medicine Critical Care Medicine | DX: N18.6 End stage renal disease (principal); Z99.2 Dependence on renal dialysis; J81.1 Chronic pulmonary edema; J96.01 Acute respiratory failure with hypoxia | CPT/HCPCS: 99291; 99499 ==

== ENCOUNTER → 2023-10-29 15:00 | Outpatient (BNV) | payer MEDICARE, SELFPAY | PROVIDERS: Admitting Provider Student in an Organized Health Care Education/Training Program; Emergency Provider Emergency Medicine; PCP Family Medicine; Visit Provider Student in an Organized Health Care Education/Training Program | DX: I12.0 Hypertensive chronic kidney disease with stage 5 chronic kidney disease or end stage renal disease (principal); N18.6 End stage renal disease; Z99.2 Dependence on renal dialysis; N25.81 Secondary hyperparathyroidism of renal origin; J96.01 Acute respiratory failure with hypoxia; D63.1 Anemia in chronic kidney disease; J81.1 Chronic pulmonary edema | CPT/HCPCS: 99223; 99239 ==

== ENCOUNTER 2023-11-04 15:31 | Inpatient (IN) | payer MEDICARE, SELFPAY ==
--- NOTE | ~2023-11-04 | XR_ITS ---
EXAMINATION: XR CHEST CLINICAL INFORMATION: SOB. COMPARISON: None available. TECHNIQUE: Frontal view of the chest was obtained. FINDINGS: Lungs are stable somewhat expanded with prominent vascular markings in both lungs. There is no pleural effusion or consolidation. The heart size is mildly enlarged. No gross bony abnormality. Lungs XR/XR chest 1V IMPRESSION: Mild cardiomegaly with prominent pulmonary vascularity likely mild congestion. No pleural effusion or consolidation seen. Similar findings were seen on previous study 10/29/2023.
--- NOTE | ~2023-11-04 | US_ITS ---
EXAMINATION: US SCROTUM CLINICAL INFORMATION: Scrotal pain and fever. COMPARISON: None available. TECHNIQUE: A sonogram of the scrotum was performed assessing hawkins-scale appearance and color Doppler flow. Spectral Doppler analysis of the arterial and venous flow were performed in the testes bilaterally. FINDINGS: RIGHT: Right testicle measures 3.7 x 1.6 x 2.8 cm, volume 8.7 mL. No focal testicular parenchymal lesions are visualized. Spectral Doppler analysis of the arterial and venous flow is mildly increased in the right testis. Right epididymal head is asymmetrically larger than the left. No right hydrocele or varicocele is seen. Right epididymal Doppler flow is mildly increased. There is a right epididymal head cyst measuring 0.2 x 0.2 x 0.2 cm. There are coarse calcifications noted within the body and tail of the right epididymis. LEFT: Left testicle measures 3.5 x 1.2 x 2.0 cm, volume 4.5 mL. No focal testicular parenchymal lesions are visualized. Spectral Doppler analysis of the arterial and venous flow is normal in the left testis. Left epididymal head is normal in size. No left hydrocele or varicocele is seen. Left epididymal Doppler flow is normal. There is a cystic structure measuring 0.4 x 0.5 x 0.3 cm within the left scrotum adjacent to the left epididymal head. US/US scrotum IMPRESSION: There is asymmetric enlargement of the right testicle and right epididymal head compared with the left side. Additionally, both the right testicle and right epididymal head demonstrate mildly increased vascularity. Findings are highly suggestive of epididymo-orchitis. Calcifications within the body and tail of the right epididymis may reflect changes related to chronic epididymitis.
--- NOTE | ~2023-11-04 | XR_ITS ---
EXAMINATION: XR CHEST CLINICAL INFORMATION: Hypoxemia. COMPARISON: 11/04/2023. TECHNIQUE: Frontal view of the chest was obtained. FINDINGS: The cardiomediastinal silhouette is stable. There are diffuse patchy left-sided infiltrates and patchy right upper lung field infiltrate. There are no significant pleural effusions. The bony structures and soft tissues are unremarkable XR/XR chest 1V IMPRESSION: Diffuse patchy left-sided infiltrates and patchy right upper lung field infiltrate. Pneumonia is suspected. Asymmetric edema considered less likely.
[2023-11-04 15:43] VITALS: BP 165/73; BP 167/69; PULSE 85; PULSE 86; RESP 12; TEMP 38.6; O2SAT 100; BMI 29.4
--- NOTE | 2023-11-04 16:30 | ED_ITS ---
HPI - SOB/Dyspnea General Chief Complaint: Dyspnea Stated Complaint: Missed dialysis, SOB x 2 days Time Seen by Provider: 11/04/23 16:16 Source: patient Mode of arrival: EMS Limitations: no limitations History of Present Illness HPI Narrative: 68 years old male with PMH of DMII, ESRD on HD, HTN, anxiety admitted on 10/29 discharged on 10/31 for pulmonary edema and shortness of breath requiring CPAP at 6 hours of dialysis discharged on 10/31 comes back as since yesterday patient has been dry cough with shortness of breath and vomiting, vomited copious amount last night about 5 times no abdominal pain was saturating high 80s on room air when EMS on arrival patient is saturating 100% on 4 L patient missed his dialysis today as he was feeling very weak. No chest pain patient noted to have temperature of 101.4 degrees on arrival Related Data Home Medications Medication Instructions Recorded Confirmed atenolol 100 mg tablet 1 tab PO DAILY 07/11/21 11/04/23 blood sugar diagnostic (FreeStyle 07/11/21 07/11/21 Lite Strips) dextroamphetamine-amphetamine 20 1 tab PO DAILY 07/11/21 11/04/23 mg tablet levothyroxine 137 mcg tablet 1 tab PO DAILY@0600 07/11/21 11/04/23 pen needle, diabetic 31 gauge x 07/11/21 07/11/2103/03 (BD Ultra-Fine Short Pen Needle) amlodipine 5 mg tablet 10 mg PO DAILY 09/03/23 11/04/23 clonazepam 0.5 mg tablet 0.5 mg PO TID PRN Anxiety 09/03/23 11/04/23 albuterol sulfate 90 mcg/actuation 2 puff inhalation Q4-6H PRN 10/29/23 11/04/23 aerosol inhaler (Ventolin HFA) Shortness Of Breath insulin glargine 100 unit/mL (3 50 unit subcut DAILY PRN 10/29/23 11/04/23 mL) subcutaneous pen (Lantus Hyperglycemia Solostar U-100 Insulin) oxycodone 5 mg tablet 10 mg PO BID PRN severe pain 10/29/23 11/04/23 prochlorperazine maleate 10 mg 10 mg PO DAILY PRN nausea 10/29/23 11/04/23 tablet Previous Rx's Medication Instructions Recorded insulin lispro 100 unit/mL 1 sliding scale dose subcut 09/05/23 subcutaneous pen (Humalog KwikPen USEASDIRECTD #15 mL (U-100) Insulin) losartan 50 mg tablet 50 mg PO DAILY #90 tabs 10/31/23 omeprazole 20 mg capsule,delayed 20 mg PO DAILY #90 caps 10/31/23 release sevelamer carbonate 800 mg tablet 800 mg PO TID #90 tabs 10/31/23 Allergies Allergy/AdvReac Type Severity Reaction Status Date / Time Penicillins [PENICILLINS] Allergy Unknown RASH Verified 07/11/21 06:26 tramadol [From ULTRAM] Allergy Unknown RASH Verified 07/11/21 06:26 trazodone [TRAZODONE] Allergy Unknown PRIAPISM Verified 07/11/21 06:26 risperidone [RISPERIDONE] AdvReac Severe dizzy, EPS Verified 07/11/21 06:26 Review of Systems 2 Review of Systems: Yes all other systems are reviewed and are negative PMFSH Past Medical History Onset Date is defined in the Problem List Problems that require an onset date and time if occurred within 24 hrs of arrival to the ED Aortic Dissection and Rupture; Neurologic impairment; Cardiopulmonary Arrest; Endotracheal Intubation; Insertion or Replacement of Mechanical Circulatory Assist Device Medical History ESRD needing dialysis DONIS (acute kidney injury) End stage renal disease on dialysis Diabetes Kidney failure HTN (hypertension) Social History Social History Household Members: Spouse Housing: House Do you presently have visiting nurse or other home services: No Alcohol intake: never Patient Tobacco Use Status: Never used Tobacco Smoked in Last 30 Days: No Use of substances other than those prescribed or required for medical reasons: No Advance Directives: Yes Advance Directives on File: Yes Advance Directives Date on File: 09/07/23 service: No Physical Exam 2 Vital Signs: Vital Signs: Last Vital Signs Temp 99.4 F 11/04/23 23:12 Pulse 81 11/04/23 23:12 Resp 24 H 11/04/23 23:12 BP 158/78 H 11/04/23 23:12 Pulse Ox 90 L 11/04/23 23:12 O2 Del Method Nasal Cannula 11/04/23 23:12 O2 Flow Rate 5 11/04/23 23:12 Oxygen Flow Rate 4 11/04/23 15:43 BMI result Body Mass Index 29.4 Appearance: Alert. Oriented X3. No acute distress. Eyes: Pallor++ ENT: Pharynx normal. Oral Mucosa moist Neck: Normal inspection. Neck supple. CVS: Normal heart rate and rhythm. Pulses normal. Respiratory: No respiratory distress. Equal air entry bilateral, no wheezing/rales/rhonchi Abdomen: Soft and nontender. Bowel sounds are present, no mass palpable, no CVA tenderness scrotum normal skin slight tenderness right testicle no swelling no hernia no hydrocele Skin: Skin warm and dry. Normal skin color. Normal skin turgor. Extremities: No lower extremity edema. No calf tenderness AV fistula left arm Neuro: Oriented X 3. No motor deficit. No sensory deficit.No cerebellar signs , cranial nerves II-XII intact Medications Administered Generic Name Dose Route Start Last Admin Trade Name Freq PRN Reason Stop Dose Admin Heparin Sodium (Porcine) 5,000 unit 11/04/23 22:00 11/04/23 22:21 Heparin Sodium,Porcine 5,000 Unit/Ml Vial SUBCUT 5,000 unit Q12H FRANCINE Administration Insulin Human Lispro 0 unit 11/04/23 21:00 11/04/23 20:56 Insulin Lispro 100 Unit/Ml 3 Ml Vial SUBCUT Not Given QIDACHS [facility] Protocol Oxycodone HCl 10 mg 11/04/23 20:39 11/04/23 20:59 Oxycodone Hcl Immed Release 5 Mg Tablet PO 10 mg BID PRN Administration severe pain Sevelamer Carbonate 800 mg 11/04/23 21:00 11/04/23 20:59 Sevelamer Carbonate Tablet 800 Mg Tablet PO 800 mg TID FRANCINE Administration Sodium Chloride 3 ml 11/05/23 00:00 11/04/23 23:05 0.9 % Sodium Chloride Flush 3 Ml Syringe IVFLUSH 3 ml QSHIFT FRANCINE Administration Discontinued Medications Generic Name Dose Route Start Last Admin Trade Name Freq PRN Reason Stop Dose Admin Acetaminophen 650 mg 11/04/23 18:10 11/04/23 18:34 Acetaminophen 325 Mg Tablet PO 11/04/23 18:11 650 mg ONCE ONE Administration Clonazepam 0.5 mg 11/04/23 19:55 11/04/23 20:38 Clonazepam 0.5 Mg Tablet PO 11/04/23 19:56 0.5 mg ONCE ONE Administration Furosemide 40 mg 11/04/23 20:58 11/04/23 21:07 Furosemide 40 Mg/4 Ml Vial IVPUSH 11/04/23 20:59 40 mg ONCE ONE Administration Protocol Ceftriaxone Sodium 1 gm/ 50 mls @ 100 mls/hr 11/04/23 18:08 11/04/23 19:45 Sodium Chloride IV 11/04/23 18:37 Infused ONCE ONE Infusion Vancomycin HCl 1,500 mg/ 500 mls @ 333.333 mls/hr 11/04/23 18:48 11/04/23 22:00 Sodium Chloride IV 11/04/23 20:17 Infused ONCE ONE Infusion Ondansetron HCl 4 mg 11/04/23 16:49 11/04/23 18:34 Ondansetron Hcl 4 Mg/2 Ml Vial IVPUSH 11/04/23 16:50 4 mg ONCE ONE Administration Medical Decision Making Medical Decision Making [facility] Narrative: Patient with multiple comorbid condition including diabetes hypertension end- stage renal disease on dialysis recent pulmonary edema comes here for increased shortness of breath noticed to have fever in the ER temperature of 101.4 degrees and increased shortness of breath chest x-ray with mild congestion will admit patient for fever of unknown etiology patient has been on dialysis likely the cause shows Gram-positive bacteria/viral, started on antibiotics. Patient has normal lactic acid level Fluids were restricted as patient does have recent pulmonary edema and is end- stage renal disease with slight congestion in the lungs Differential Diagnosis Differential Diagnoses: The differential diagnosis associated with the presentation includes Pulmonary edema/pneumonia/renal failure/metabolic etiology Admission/Observation Consideration of admission/observation: Escalation of care including admission/observation considered Consult Healthcare Provider Management of the patient was discussed with: Hospitalist Lab Data [facility] Lab Attestation statement: I reviewed the patient's lab results. 11/04/23 18:07 11/04/23 18:07 Labs: Lab Results 11/04/23 11/04/23 Range/Units 18:07 18:30 WBC 18.6 H (4.8-10.8) X10*3/uL RBC 3.18 L (4.60-5.80) X10*6/uL Hgb 9.8 L (14.0-18.0) g/dl Hct 28.9 L (42.0-52.0) % MCV 90.9 (80.0-98.0) fL MCH 30.8 (27.0-33.0) pg MCHC 33.9 (31.0-36.0) g/dl RDW 15.3 (11.0-16.0) % Plt Count 258 D (160-400) X10*3/uL MPV 10.3 (9.4-12.4) fL Immature Gran % (Auto) 0.6 H (0.0-0.4) % Neut % (Auto) 87.2 H (45-73) % Lymph % (Auto) 3.9 L (20-40) % [place] % (Auto) 7.5 (2-11) % Eos % (Auto) 0.6 (0-4) % Baso % (Auto) 0.2 (0-2) % Lymph # (Auto) 0.7 L (1.2-4.9) X10*3/uL [place] # (Auto) 1.4 H (0.1-1.2) X10*3/uL Eos # (Auto) 0.1 (0.0-0.4) X10*3/uL Baso # (Auto) 0.0 (0.0-0.2) X10*3/uL Abs Immat Gran (auto) 0.12 H (0.00-0.03) X10*3/uL Absolute Neuts (auto) 16.2 H (2.0-8.3) x10*3/uL Absolute Nucleated RBC 0.000 (0.0-0.012) X10*3/uL Nucleated RBC % (auto) 0.0 (0.0-0.2) /100WBC Sodium 130 L (135-145) mmol/L Potassium 4.2 (3.3-5.1) mmol/L Chloride 90 L (96-108) mmol/L Carbon Dioxide 23 (22-29) mmol/L Anion Gap 21 H (12-20) BUN 61 H (9-16) mg/dL Creatinine 11.02 H* (0.5-1.4) mg/dL Estim Creat Clear Calc 6.3 Estimated GFR 5 Random Glucose 123 H (60-115) mg/dL Lactic Acid 0.9 (0.5-2.0) mmol/L Calcium 8.0 L D (8.4-10.2) mg/dL Total Bilirubin 0.6 (0.0-1.0) mg/dL AST 17 (5-37) U/L ALT 7 (0-40) U/L Alkaline Phosphatase 45 (39-117) U/L B-Natriuretic Peptide 3132 H (<100) pg/mL Total Protein 6.5 (6.5-8.0) g/dL Albumin 3.7 (3.5-5.0) g/dL Lipase 23 (8-78) U/L COVID-19 (SUNITHA) Negative (Negative) COVID-19 Clin Com See Note Independent Interpretation I performed an independent interpretation of an: EKG, Plain X-Ray and Ultrasound Interpretation: Normal sinus rhythm heart rate 84 beats per minute normal interval normal axis no acute ST changes no acute ischemia Radiology Impression Discussion of test interpretation with radiology: I have reviewed the radiologist's reading. External Record Review External record reviewed: Inpatient record Critical Care Time Critical Care Time Critical Care Time: Yes Total Critical Care Time: 45 Attestation: The patient was critically ill with a high probability of imminent or life threatening deterioration. I spent greater than ?50??minutes of discontinuous time evaluating the patient,delivering critical care at the bedside, discussing and evaluating pertinent data with consultants. Critical care time does not include time spent performing separately billable procedures or teaching. Total time spent performing critical care was ?45??minutes. Discharge Plan Discharge Clinical Impression: Fever, End stage renal disease on dialysis, Pulmonary congestion, Hypoxia, Acute hypoxic respiratory failure, Anemia in chronic kidney disease Patient Disposition: Admitted As Inpatient
[2023-11-04 16:38] VITALS: BP 165/82; PULSE 82; RESP 25; O2SAT 94
--- NOTE | 2023-11-04 16:49 | PC.NURSE ---
late entry: pt care started at approxinately 1543. pt appears lethargic and sob on arrival. pt reporting N/V and weakness x2 days. pt came in with difficulty breathing, on non-rebreather. once in ED, pt placed on 4L O2 via NC sating 96%. pt receives HD M/W/F. last dialysis on Thursday, missed today's appointment due to N/V. fistula to L arm, no BPs/venipuncture. pt sts he makes very little urine. pt difficult stick, t/w, VERONICA Bishop and Alba Ortiz RN all attempted IV to pt's right arm with no success. Anwer placed 20G IV to pt Right IJ. labs obtained. pt febrile, Anwer aware. pt medicated per dec. pt a&ox4, pleasant, calm, and cooperative. call latham within reach. plan of care ongoing.
--- NOTE | 2023-11-04 16:57 | ECG_ITS ---
Test Reason : CHEST PAIN Blood Pressure : / mmHG Vent. Rate : 084 BPM Atrial Rate : 084 BPM P-R Int : 152 ms QRS Dur : 084 ms QT Int : 406 ms P-R-T Axes : 040 007 041 degrees QTc Int : 479 ms Normal sinus rhythm Nonspecific ST and T wave abnormality Prolonged QT Abnormal ECG When compared with ECG of 29-OCT-2023 10:15, No significant change was found Referred By: Nathan Cuenca Electronically Signed By:HOA KLEIN
[2023-11-04 18:17] LABS: MANUAL DIFF FLAG NO
[2023-11-04 18:19] LABS: Basophils Percent Auto 0.2 % (0-2); Eosinophils Absolute Auto 0.1 X10*3/uL (0.0-0.4); Eosinophils Percent Auto 0.6 % (0-4); Hematocrit 28.9 % (42.0-52.0); Hemoglobin 9.8 g/dl (14.0-18.0); Imm Gran Abs Auto 0.12 X10*3/uL (0.00-0.03); Imm Gran Pct Auto 0.6 % (0.0-0.4); Lymphocytes Absolute Auto 0.7 X10*3/uL (1.2-4.9); Lymphocytes Percent Auto 3.9 % (20-40); Mean Corpuscular HGB Conc 33.9 g/dl (31.0-36.0); Mean Corpuscular Hemoglobin 30.8 pg (27.0-33.0); Mean Corpuscular Volume 90.9 fL (80.0-98.0); Mean Platelet Volume 10.3 fL (9.4-12.4); Monocytes Absolute Auto 1.4 X10*3/uL (0.1-1.2); Monocytes Percent Auto 7.5 % (2-11); Neutrophils Absolute Auto 16.2 x10*3/uL (2.0-8.3); Neutrophils Percent Auto 87.2 % (45-73); Platelet Count 258 X10*3/uL (160-400); Red Blood Count 3.18 X10*6/uL (4.60-5.80); Red Cell Distribution Width 15.3 % (11.0-16.0); White Blood Count 18.6 X10*3/uL (4.8-10.8)
[2023-11-04 18:29] LABS: COVID-19 Test Negative (Negative); IDNOW Serial# 6674DD1D
[2023-11-04 18:34] VITALS: BP 158/80; PULSE 84; RESP 17; O2SAT 96
[2023-11-04] MEDS: cefTRIAXone sodium 1 GM in 0.9 % Sodium Chloride 50 ML IV (18:34)
[2023-11-04] MEDS: Acetaminophen 325 MG TABLET 650 MG PO (18:34)
[2023-11-04] MEDS: ondansetron HCL 4 MG/2 ML VIAL IVPUSH (18:34)
[2023-11-04 18:41] LABS: B Type Natriuretic Peptide 3132 pg/mL (<100)
[2023-11-04 18:42] LABS: Alanine Aminotransferase 7 U/L (0-40); Albumin Level 3.7 g/dL (3.5-5.0); Alkaline Phosphatase 45 U/L (39-117); Anion Gap 21 (12-20); Aspartate Amino Transferase 17 U/L (5-37); Bilirubin Total 0.6 mg/dL (0.0-1.0); Blood Urea Nitrogen 61 mg/dL (9-16); Carbon Dioxide 23 mmol/L (22-29); Chloride 90 mmol/L (96-108); Creatinine Clr Calc Pharmacy 6.3; Estimated Glomerular Filt Rate 5; Glucose Random 123 mg/dL (60-115); Lipase 23 U/L (8-78); Potassium 4.2 mmol/L (3.3-5.1); Sodium 130 mmol/L (135-145); Total Protein 6.5 g/dL (6.5-8.0)
[2023-11-04 18:59] LABS: Lactic Acid 0.9 mmol/L (0.5-2.0)
--- NOTE | 2023-11-04 19:23 | PHA.MEDREC ---
Pharmacy Consult ? Medication Reconciliation Pharmacy has completed the medication reconciliation. Patient recently dicharged 10/31. 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
--- NOTE | 2023-11-04 19:38 | PC.NURSE ---
pt called for update on pt with pt's permission. left phone number with t/w, different than what is in pt's chart. Kyara Wick: [phone]
[2023-11-04 19:48] VITALS: BP 131/59; PULSE 80; RESP 16; TEMP 37.9; O2SAT 95
[2023-11-04] MEDS: vancomycin HCL 1,500 MG in 0.9 % Sodium Chloride 500 ML 333.33 MG IV (20:27)
[2023-11-04] MEDS: clonazePAM 0.5 MG TABLET PO (20:38)
--- NOTE | 2023-11-04 20:41 | PM.IMHP ---
History of Present Illness Date of Service: 11/04/23 Attending physician on admission: James Bobby Chief Complaint: sob, cough, vomiting 68 years old male with PMH of DMII, ESRD on HD, HTN, anxiety presented to the ED earlier today for evaluation of cough, sob, and vomiting ongoing for 2 days. He was recently admitted 10/29-10/31 due to pulmonary edema and sob requiring cpap at 6 hours of dialysis. he reports since discharge he has has multiple bouts of vomiting with PO intolerance as well as subjective fevers. Denies eating any bad foods, no one at home with similar symptoms. No recent travel. No st, congestion, abd pain, hematemesis, diarrhea, melena, hematochezia, wheezing, palpitations, lightheadedness, or chest pain. he is reporting chronic pain in the neck and right testicle which he states has been going on for months. He does make some urine and denies any other urinary complaints. He did miss dialysis due to his symptoms this morning. Per EMS, pt was satting in the 80s on arrival and placed on 4L. Pt was oxygen dependent during last admission but apparentlyl was maintaining O2 and did not require home O2 on discharge. On arrival to the ED, he was febrile to 101.4 and intermittently tachypneic. He has a leukocytosis of 18.6. Creat 11.02, bun 61. Na 130, K 4.2, Cl 90. Lactic acid 0.9. BNP 3132. Negative for COVID-19. CXR shows midl cardiomegaly with prominent vascularity likely mild congestion. No effusions or consolidations. Similar to prior exams. Review of Systems Review of Systems: General: No malaise, unintentional weight loss. +fevers, +general weakness HEENT: No sore throat, nasal congestion, rhinorrhea, sinus pain, ear pain Cardiovascular: No chest pain, palpitations, or leg edema Respiratory: No wheezing. +sob, +cough GI: +vomiting/nausea. No abdominal pain, diarrhea, constipation, melena, hematochezia : No dysuria, hematuria, increased urinary frequency. +testicular pain MSK: No myalgia, back pain. +neck pain Neuro: No headaches, weakness, paresthesias Skin: No rashes or lesions [facility], [facility] Medical History ESRD needing dialysis DONIS (acute kidney injury) End stage renal disease on dialysis Diabetes Kidney failure HTN (hypertension) Social History Household Members: Spouse Housing: House Do you presently have visiting nurse or other home services: No Alcohol intake: never Patient Tobacco Use Status: Never used Tobacco Smoked in Last 30 Days: No Use of substances other than those prescribed or required for medical reasons: No Advance Directives: Yes Advance Directives on File: Yes Advance Directives Date on File: 09/07/23 service: No Meds Allergies Allergy/AdvReac Type Severity Reaction Status Date / Time Penicillins [PENICILLINS] Allergy Unknown RASH Verified 07/11/21 06:26 tramadol [From ULTRAM] Allergy Unknown RASH Verified 07/11/21 06:26 trazodone [TRAZODONE] Allergy Unknown PRIAPISM Verified 07/11/21 06:26 risperidone [RISPERIDONE] AdvReac Severe dizzy, EPS Verified 07/11/21 06:26 Active Medications: Current Medications Dextrose (Dextrose 50 % 25 Gm/50 Ml Syringe) 25 gm IVPUSH Q15M PRN; Protocol PRN Reason: per Hypoglycemia Standing Ord. Glucose (Glucose Gel 15 Gm Gel..Gram.) 15 gm PO Q15M PRN; Protocol PRN Reason: per Hypoglycemia Standing Ord. Ceftriaxone Sodium 1 gm/ (Sodium Chloride) 50 mls @ 100 mls/hr IV Q24H [facility] Insulin Human Lispro (Insulin Lispro 100 Unit/Ml 3 Ml Vial) 0 unit SUBCUT QIDACHS [facility]; Protocol Home Medications Medication Instructions Recorded Confirmed Last Taken Type atenolol 100 mg tablet 1 tab PO DAILY 07/11/21 11/04/23 11/04/23 History blood sugar diagnostic (FreeStyle 07/11/21 07/11/21 Unknown History Lite Strips) dextroamphetamine-amphetamine 20 1 tab PO DAILY 07/11/21 11/04/23 11/04/23 History mg tablet levothyroxine 137 mcg tablet 1 tab PO DAILY@0600 07/11/21 11/04/23 Unknown History pen needle, diabetic 31 gauge x 07/11/21 07/11/21 Unknown History 03/03 (BD Ultra-Fine Short Pen Needle) amlodipine 5 mg tablet 10 mg PO DAILY 09/03/23 11/04/23 11/04/23 History clonazepam 0.5 mg tablet 0.5 mg PO TID PRN Anxiety 09/03/23 11/04/23 11/04/23 History albuterol sulfate 90 mcg/actuation 2 puff inhalation Q4-6H PRN 10/29/23 11/04/23 Unknown History aerosol inhaler (Ventolin HFA) Shortness Of Breath insulin glargine 100 unit/mL (3 50 unit subcut DAILY PRN 10/29/23 11/04/23 11/04/23 History mL) subcutaneous pen (Lantus Hyperglycemia Solostar U-100 Insulin) oxycodone 5 mg tablet 10 mg PO BID PRN severe pain 10/29/23 11/04/23 Unknown History prochlorperazine maleate 10 mg 10 mg PO DAILY PRN nausea 10/29/23 11/04/23 Unknown History tablet Physical Exam Vital Signs and Narrative: Vital Signs: Last Vital Signs Temp 100.2 F 11/04/23 19:48 Pulse 80 11/04/23 19:48 Resp 16 11/04/23 19:48 BP 131/59 L 11/04/23 19:48 Pulse Ox 95 11/04/23 19:48 O2 Del Method Nasal Cannula 11/04/23 19:48 O2 Flow Rate 4 11/04/23 19:48 Oxygen Flow Rate 4 11/04/23 15:43 BMI result Body Mass Index 29.4 Constitutional - Awake and Alert, No apparent distress Eyes - PERRLA, EOMI Cardiovascular - S1S2, RRR, No edema Respiratory - Normal lung expansion, Normal respiratory effort, No respiratory distress, CTA bilaterally Gastrointestinal - NT / ND; +BS; No rebound or guarding - No CVA tenderness. R-sided testicular pain without associated swelling or erythema Extremities - no calf tenderness bilaterally, no swelling Skin - Warm/Dry Neurological - Alert & oriented x3 Psychological - Appropriate affect Results Labs 11/04/23 18:07 11/04/23 18:07 Labs: Laboratory Results - last 24 hr 11/04/23 11/04/23 18:07 18:30 MCV 90.9 MCH 30.8 MCHC 33.9 RDW 15.3 Plt Count 258 D MPV 10.3 Immature Gran % (Auto) 0.6 H Neut % (Auto) 87.2 H Lymph % (Auto) 3.9 L [place] % (Auto) 7.5 Eos % (Auto) 0.6 Baso % (Auto) 0.2 Lymph # (Auto) 0.7 L [place] # (Auto) 1.4 H Eos # (Auto) 0.1 Baso # (Auto) 0.0 Abs Immat Gran (auto) 0.12 H Absolute Neuts (auto) 16.2 H Absolute Nucleated RBC 0.000 Nucleated RBC % (auto) 0.0 Anion Gap 21 H Estim Creat Clear Calc 6.3 Estimated GFR 5 Random Glucose 123 H Lactic Acid 0.9 Calcium 8.0 L D Total Bilirubin 0.6 AST 17 ALT 7 Alkaline Phosphatase 45 B-Natriuretic Peptide 3132 H Total Protein 6.5 Albumin 3.7 Lipase 23 COVID-19 (SUNITHA) Negative COVID-19 Clin Com See Note Imaging Radiologist's Impressions: Impressions Chest X-Ray 11/04/23 18:05 IMPRESSION: Mild cardiomegaly with prominent pulmonary vascularity likely mild congestion. No pleural effusion or consolidation seen. Similar findings were seen on previous study 10/29/2023. Assessment and Plan (1) Acute hypoxic respiratory failure: Status: Acute (2) Pulmonary congestion: Status: Acute (3) Sepsis: Status: Acute Plan 68 years old male with PMH of DMII, ESRD on HD, HTN, anxiety admitted for further management of sepsis #Sepsis, infectious source unclear at this time -febrile to 101.4, tachypneic, wbc 18 -CXR without evidence of pneumonia -UA/UC pending. Scrotal U/S pending given testicular pain to r/o epididymitis -Neg COVID-19. Full viral respiratory panel pending -IV ceftriaxone for empiric coverage -Clear liquids given vomiting, ondansetron prn. Advance diet as tolerated #Dyspnea -suspect r/t URI as above -CXR negative for infectious etiology #Elevated BNP -elevation likely in setting of ESRD, however cannot r/o underlying chf -Will give 1 dose lasix given missed HD and mild congestion noted on cxr -check echo -stirict I&O -advance to cardiac diet #Acute hypoxemic respiratory failure -2/2 suspected URI vs volume overload -continue supplemental O2 to maintain oximetry >92% #Insulin dependent type 2 diabetes- without hyperglycemia -dose adjusted basal insulin -poc glucose, humalog on sliding scale -advance to diabetic diet #ESRD on HD -MWF schedule, missed HD today -nephro consult -fluid restrictions, low K/phosph/Na diet per nephro PN -continue phosphorus binders AC #HTN -continue antihypertensives #Chronic pain -continue oxycodone #Mood disorder -continue home meds DVT prophyalxis- heparin Full code Pt requires inpt stay at least 2 midnights due eto sepsis of unclear etiology requiring iv abx and monitoring as well as expert consultation and HD Quality Stroke Does the patient have a stroke diagnosis?: No VTE Prior VTE?: No VTE Risk Level:: Medical - moderate - high VTE Device Contraindication: Treatment Not Indicated VTE Drug Contraindication: N/A - Med Ordered
[2023-11-04] MEDS: oxyCODONE HCl Immed Release 5 MG TABLET 10 MG PO (20:59)
[2023-11-04] MEDS: Sevelamer Carbonate Tablet 800 MG TABLET PO (20:59)
[2023-11-04 21:00] LABS: Glucose, Whole Blood 105 mg/dL (60-115)
--- NOTE | 2023-11-04 21:00 | PC.NURSE ---
This securities underwriter assumed care of this Pt at 1900. Pt A&Ox4, speaking in full sentences reports increase SOB x few days. SpO2 95% on 4L via NC, lung sounds clear. Pt is a dialysis Pt with fistula to Left upper arm, + thrill and bruit. Pt report he makes little urine at days at a time. Afebrile at this time.
--- NOTE | 2023-11-04 21:01 | PC.NURSE ---
Pt reports 8/10 chronic neck, right shoulder, right hip pain. Pt medicated per DEC.
[2023-11-04] MEDS: Furosemide 40 MG/4 ML VIAL IVPUSH (21:07)
[2023-11-04] MEDS: Heparin Sodium,Porcine 5,000 UNIT/ML VIAL 5000 UNIT SUBCUT (22:21)
[2023-11-04] MEDS: 0.9 % Sodium Chloride Flush 3 ML SYRINGE IVFLUSH (23:05)
[2023-11-04 23:12] VITALS: BP 158/78; PULSE 81; RESP 24; TEMP 37.4; O2SAT 90
[2023-11-04 23:15] VITALS: O2SAT 96
--- NOTE | 2023-11-04 23:15 | PC.NURSE ---
Pt SpO2 88% on 4L via NC, Pt appears to be sleeping awakens with verbal stimuli and SpO2 improves. Pt is a mouth breather, NC switched to oxymask at 3L, Pt maintaining at 96%.
--- NOTE | 2023-11-04 23:15 | MHC.EDTECH ---
This tech took over care of patient at 2215 ,hourly rounds and vitals completed,Resp. panel obtained and sent to lab,patient is unable to give a urine at this time,patient is on dialysis and dosent make urine.
[2023-11-05] VITALS (14 sets, daily range): BP systolic 123–190; BP diastolic 61–85; PULSE 70–89; RESP 16–27; TEMP 36.2–38.6; O2SAT 82–98; BMI 29.4
--- NOTE | 2023-11-05 | ECG_ITS ---
Test Reason : chest pain Blood Pressure : / mmHG Vent. Rate : 080 BPM Atrial Rate : 080 BPM P-R Int : 138 ms QRS Dur : 084 ms QT Int : 418 ms P-R-T Axes : 034 013 036 degrees QTc Int : 482 ms Normal sinus rhythm Prolonged QT Abnormal ECG When compared with ECG of 04-NOV-2023 17:26, No significant change was found Referred By: Madai Trinh Electronically Signed By:HOA KLEIN
--- NOTE | 2023-11-05 01:08 | PC.NURSE ---
Pt output 200mL of urine. Sample collected and sent to lab.
[2023-11-05 01:09] LABS: Appearance Urine Clear; Color Urine Yellow; Glucose Urine UA 250 mg/dL (Negative); Leukocyte Esterase Urine Negative (Negative); Nitrite Urine Negative (Negative); PH >= 9.0 (5.0-9.0); UMIC TRIGGER UACC YES; Urine Blood Negative (Negative); Urine Ketones Trace mg/dL (Negative); Urine Protein 300 (3+) mg/dL (Neg-Trace)
[2023-11-05 01:13] LABS: Bacteria Urine None Seen (None Seen); Hyaline Casts Urine 0-2 /LPF (0-2); RBC Urine 0-2 /HPF (0-2); Squamous Epithelial Cell Urine 0-2 /HPF (0-2); WBC Urine 0-5 /HPF (0-5)
--- NOTE | 2023-11-05 01:59 | PC.NURSE ---
Report complete, Pt will be transported to room 376, Pt aware of plan.
[2023-11-05] MEDS: Acetaminophen 325 MG TABLET 650 MG PO ×2 (02:51→17:26)
--- NOTE | 2023-11-05 04:59 | PM.EVENT ---
Event Note Date of Service: 11/05/23 Event Note: Nurse reported that patient was getting hypoxemic on his 5 L OxyMask. On examination, patient with tachypnea and bilateral crackles. He was requiring non-rebreather to maintain sats. Switched to CPAP, 10/40% with improvement in respiratory status. Blood pressure and heart rate within normal limits. VBG and chest x-ray obtained. Time Spent With Patient Time: Total time managing care of this patient today ____ minutes.
[2023-11-05 05:23] LABS: Venous Blood Gas Refer to POC result
[2023-11-05 05:27] LABS: VBG Base Excess 3.1 mmol/L; VBG HCO3 23 mmol/L (22-26); VBG pCO2 24 mmHg; VBG pH 7.59 (7.32-7.43); VBG pO2 158 mmHg
[2023-11-05] MEDS: Doxycycline Hyclate 100 MG in 0.9 % Sodium Chloride 250 ML 166.67 MG IV (05:55)
--- NOTE | 2023-11-05 06:32 | PC.NURSE ---
Around 0450 patient began complaining of difficulty breathing. Patient on 5L via Oxymask sating between 80-82%, tachypneic with crackles at bilateral bases. Oxygen increased to 10L and saturation between 87-88%. PAtient alert and oriented and answering all questions appropriately. Dr Bobby called to bedside along with RT. Patient placed on 15L via NRB in the meantime still with saturations in the high 80s. Md Bobby ordered CXR and VBG's along for the patient to be placed on CPAP. Patient placed on CPAP by RT. Initially placed on 10/40%. Patient endorses mild improvement in breathing. Patient also complained of chest pain. MD Bobby notified and EKG completed and placed in chart. Patient CPAP increased to 10/45% by RT for oxygen saturations between 88-90%. Patient in bed. Respirations between 18-22. Saturation at 93%. Call latham in reach. Bed alarm on. Will endorse to next shift RN.
--- NOTE | 2023-11-05 07:00 | CA_ITS ---
Transthoracic Echocardiogram Patient (Last, First, Middle): Emma Wick, Gender: Male Date of : 1955 Age: 68 Procedure Date: 11/05/2023 Procedure Type: Transthoracic Echocardiogram Location: S3E Height: 167.64 cm Weight: 82.56 kg BSA: 1.92 m2 Heart Rate: 83 bpm BP: 171 / 82 mmHg Casting And Curing Operator: MOLLY Referring MD: Madai TRONCOSO Symptoms: elevated bnp, volume overload Study Quality: Adequate/w Contrast ECG Rhythm: Sinus Conclusions: - The left ventricular systolic function is normal. The calculated ejection fraction is 56% by biplane method. - Evidence suggests grade II (moderate) diastolic dysfunction. - The left atrium is moderately dilated. - No obvious valvular pathology seen on this study. - Mild pulmonary hypertension is present. Findings Procedure Information Contrast agent, definity, is being given per protocol without apparent complications. Left Ventricle Normal left ventricular cavity size. The left ventricular systolic function is normal. The calculated ejection fraction is 56% by biplane method. There is no evidence of regional wall motion abnormalities. Evidence suggests grade II (moderate) diastolic dysfunction. There is mild septal asymmetric hypertrophy. Right Ventricle Normal right ventricular cavity size and systolic function. Atria The left atrium is moderately dilated. The right atrium is normal in size. Aortic Valve There is a normal trileaflet aortic valve. There is no aortic valve stenosis. There is no aortic valve regurgitation. Mitral Valve There is mild anterior mitral leaflet thickening. There is mild mitral valve regurgitation. There is no mitral valve stenosis. Pulmonic Valve The pulmonic valve is likely normal. Tricuspid Valve There is trace tricuspid valve regurgitation. Mild pulmonary hypertension is present. Great Vessels The asc aorta is normal in size. Venous The inferior vena cava is normal in size and collapses greater than 50% with inspiration. Pericardium/Pleural There is no evidence of pericardial effusion. Prior Study Comparison Changes noted compared to prior study dated: 08/01/2009. Progression of diastolic dysfunction. Recommendations, Care & Conclusions No obvious valvular pathology seen on this study. Measurements 2D Linear Measurements IVSd: 1.16 0.6-0.9/0.6-1.0 cm LVIDd: 4.91 3.9-5.3/4.2-5.9 cm LVIDd Index: 2.56 2.4-3.2/2.2-3.1 cm/m2 LVIDs: 3.42 2.0-3.6 cm LVPWd: 1.02 0.7-1.1 cm LA Diam: 4.00 2.7-3.8/3.0-4.0 cm LAIDs Index: 2.08 1.5-2.3 cm/m2 LV Mass: 247.55 67-162/88-224 g LV Mass Index: 128.93 43-95/49-115 g/m2 LVOT Diam: 2.10 3.0+(-)1.3 cm 2D Systolic Function EF 4C: 55.50 >55% EF 2C: 59.10 >55% EF BiP: 56.40 >55% Mitral Valve MV Pk E: 1.16 MV PK A: 0.93 MV Decel Time: 185.00 E/A: 1.20 E'Lateral: 8.16 E'Medial: 4.46 E/E' Med: 26.00 E/E' Lat: 14.20 PHT: 54.00 MVA PHT: 4.07 Decel [place]: 6.27 Aortic Valve AoV Pk Jhon: 1.63 AoV Mn Jhon: 1.14 AoV VTI: 0.35 AoV Pk Grad: 11.00 Aov Mn Grad: 6.00 MAURILIO Cont.VTI: 2.84 LVOT LVOT Pk Jhon: 1.34 LVOT Mn Jhon: 0.93 LVOT VTI: 0.28 LVOT Pk Grad: 7.00 LVOT Mn Grad: 4.00 LVOT Diam: 2.10 LVOT Area: 3.46 Diastolic Function MV Pk E: 1.16 MV Pk A: 0.93 E/A: 1.20 E'Medial: 4.46 E/E' Med: 26.00 E' Laterial: 8.16 E/E' Lat: 14.20 Right Ventricle TAPSE (mm): 26.20 TVS' Jhon: 16.30 Tricuspid Valve TR Pk Jhon: 3.12 TR Pk Grad: 39.00 RA Press: 3.00 RVSP: 42.00 Great Vessels Aorta Sinus of Valsalva: 3.35 2.0-3.[address] Ridge: 2.85 1.7-3.4 cm Ao Asc: 3.70 2.1-3.4 cm Updated in Other Vendor System with Status of Final Chris Carreon MD electronically signed on 11/06/2023 12:30:16 PM with status of Final
[2023-11-05 07:58] LABS: Glucose, Whole Blood 130 mg/dL (60-115)
[2023-11-05] MEDS: clonazePAM 0.5 MG TABLET PO (08:56)
[2023-11-05] MEDS: oxyCODONE HCl Immed Release 5 MG TABLET 10 MG PO ×2 (08:56→17:26)
[2023-11-05] MEDS: Levothyroxine Sodium 112 MCG, Levothyroxine Sodium 25 MCG 137 MCG PO (08:57)
[2023-11-05] MEDS: Sevelamer Carbonate Tablet 800 MG TABLET PO ×3 (08:57→19:55)
[2023-11-05] MEDS: Omeprazole 20 MG CAPSULE.DR PO (08:57)
[2023-11-05] MEDS: Amphetamine Mixed Salts 20 MG TABLET PO (08:57)
[2023-11-05] MEDS: Heparin Sodium,Porcine 5,000 UNIT/ML VIAL 5000 UNIT SUBCUT ×2 (09:01→21:52)
[2023-11-05 09:02] LABS: Adenovirus PCR Not Detected (Not Detect.); Bordetella parapertussis PCR Not Detected (Not Detect.); Bordetella pertussis PCR Not Detected (Not Detect.); Chlamydia pneumoniae PCR Not Detected (Not Detect.); Coronavirus 229E PCR Not Detected (Not Detect.); Coronavirus HKU1 PCR Not Detected (Not Detect.); Coronavirus NL63 PCR Not Detected (Not Detect.); Coronavirus OC43 PCR Not Detected (Not Detect.); Human metapneumovirus PCR Not Detected (Not Detect.); Influenza A PCR Not Detected (Not Detect.); Influenza B PCR Not Detected (Not Detect.); Mycoplasma pneumoniae PCR Not Detected (Not Detect.); Parainfluenza 1 PCR Not Detected (Not Detect.); Parainfluenza 2 PCR Not Detected (Not Detect.); Parainfluenza 3 PCR Not Detected (Not Detect.); Parainfluenza 4 PCR Not Detected (Not Detect.); RSV PCR Not Detected (Not Detect.); Rhino/Enterovirus PCR Not Detected (Not Detect.)
[2023-11-05] MEDS: 0.9 % Sodium Chloride Flush 3 ML SYRINGE IVFLUSH ×2 (09:02→16:02)
[2023-11-05] MEDS: ondansetron HCL 4 MG/2 ML VIAL IVPUSH (09:11)
--- NOTE | 2023-11-05 09:24 | P.PNIM_ITS ---
Subjective Subjective Date of Service: 11/05/23 Interval History: Seen in follow up for sepsis, pneumonia, hypoxia Interval history: Required rescue bipap early this morning, weaned from this with improvement in respiratory status. Still reporting sob, cough Review of Systems Review of Systems: Yes all other systems are reviewed and are negative Physical Exam 2 Vital Signs: Vital Signs: Last Vital Signs Temp 97.6 F 11/05/23 07:12 Pulse 75 11/05/23 07:12 Resp 27 H 11/05/23 07:40 BP 171/82 H 11/05/23 07:12 Pulse Ox 91 L 11/05/23 07:12 O2 Del Method BiPAP 11/05/23 07:12 O2 Flow Rate 10 11/05/23 07:12 FiO2 45 11/05/23 07:12 Oxygen Flow Rate 4 11/04/23 15:43 BMI result Body Mass Index 29.4 Constitutional - Awake and Alert, No apparent distress Eyes - PERRLA, EOMI Cardiovascular - S1S2, RRR, No edema Respiratory - Normal lung expansion, Normal respiratory effort, No respiratory distress, b/l rhonchi lower lobes Gastrointestinal - NT / ND; +BS; No rebound or guarding Extremities - no calf tenderness bilaterally, no swelling Skin - Warm/Dry Neurological - Alert & oriented x3 Psychological - Appropriate affect Objective Data Active Medications Acetaminophen (Acetaminophen 325 Mg Tablet) 650 mg PO Q6H PRN PRN Reason: Fever >100.4 Last Admin: 11/05/23 02:51 Dose: 650 mg Documented By: RAHUL Albuterol Sulfate (Albuterol Sulfate 90 Mcg 8 Gm Inhaler) 2 puff INHALE Q4H PRN PRN Reason: Shortness Of Breath Amlodipine Besylate (Amlodipine Besylate 10 Mg Tablet) 10 mg PO DAILY [facility]; Protocol Amphetamine/Dextroamphetamine (Amphetamine Mixed Salts 20 Mg Tablet) 20 mg PO DAILY FRANCINE Last Admin: 11/05/23 08:57 Dose: 20 mg Documented By: JUANCARLOS Atenolol (Atenolol 100 Mg Tablet) 100 mg PO DAILY [facility]; Protocol Clonazepam (Clonazepam 0.5 Mg Tablet) 0.5 mg PO TID PRN PRN Reason: Anxiety Last Admin: 11/05/23 08:56 Dose: 0.5 mg Documented By: JUANCARLOS Dextrose (Dextrose 50 % 25 Gm/50 Ml Syringe) 25 gm IVPUSH Q15M PRN; Protocol PRN Reason: per Hypoglycemia Standing Ord. Glucose (Glucose Gel 15 Gm Gel..Gram.) 15 gm PO Q15M PRN; Protocol PRN Reason: per Hypoglycemia Standing Ord. Guaifenesin (Guaifenesin 200 Mg/10 Ml 10 Ml Liquid) 10 ml PO Q4H PRN PRN Reason: Cough Heparin Sodium (Porcine) (Heparin Sodium,Porcine 5,000 Unit/Ml Vial) 5,000 unit SUBCUT Q12H [facility] Last Admin: 11/05/23 09:01 Dose: 5,000 unit Documented By: JUANCARLOS Ceftriaxone Sodium 1 gm/ (Sodium Chloride) 50 mls @ 100 mls/hr IV Q24H [facility] Doxycycline Hyclate 100 mg/ (Sodium Chloride) 250 mls @ 166.67 mls/hr IV Q12H [facility] Last Infusion: 11/05/23 08:14 Dose: Infused Documented By: JUANCARLOS Insulin Glargine (Insulin Glargine,Hum.Rec.Anlog 100 Unit/Ml 10 Ml Vial) 38 unit SUBCUT DAILY [facility] Insulin Human Lispro (Insulin Lispro 100 Unit/Ml 3 Ml Vial) 0 unit SUBCUT QIDACHS [facility]; Protocol Last Admin: 11/05/23 09:02 Dose: Not Given Documented By: JUANCARLOS Non-Admin Reason: No Insulin Coverage Levothyroxine Sodium 112 mcg/ (Levothyroxine Sodium 25 mcg) 137 mcg PO DAILY@0600 [facility] Last Admin: 11/05/23 08:57 Dose: 137 mcg Documented By: JUANCARLOS Losartan Potassium (Losartan Potassium 50 Mg Tablet) 50 mg PO DAILY [facility]; Protocol Omeprazole (Omeprazole 20 Mg Capsule.Dr) 20 mg PO DAILY@0630 [facility] Last Admin: 11/05/23 08:57 Dose: 20 mg Documented By: JUANCARLOS Ondansetron HCl (Ondansetron Hcl 4 Mg/2 Ml Vial) 4 mg IVPUSH Q8H PRN PRN Reason: Nausea and Vomiting Last Admin: 11/05/23 09:11 Dose: 4 mg Documented By: JUANCARLOS Oxycodone HCl (Oxycodone Hcl Immed Release 5 Mg Tablet) 10 mg PO BID PRN PRN Reason: severe pain Last Admin: 11/05/23 08:56 Dose: 10 mg Documented By: JUANCARLOS Sevelamer Carbonate (Sevelamer Carbonate Tablet 800 Mg Tablet) 800 mg PO TID [facility] Last Admin: 11/05/23 08:57 Dose: 800 mg Documented By: JUANCARLOS Sodium Chloride (0.9 % Sodium Chloride Flush 3 Ml Syringe) 3 ml IVFLUSH QSHIFT [facility] Last Admin: 11/05/23 09:02 Dose: 3 ml Documented By: JUANCARLOS Labs 11/05/23 11:31 11/05/23 11:31 Labs: Laboratory Results - last 24 hr 11/04/23 11/04/23 11/04/23 18:07 18:30 20:54 MCV 90.9 MCH 30.8 MCHC 33.9 RDW 15.3 Plt Count 258 D MPV 10.3 Immature Gran % (Auto) 0.6 H Neut % (Auto) 87.2 H Lymph % (Auto) 3.9 L Potter % (Auto) 7.5 Eos % (Auto) 0.6 Baso % (Auto) 0.2 Lymph # (Auto) 0.7 L Potter # (Auto) 1.4 H Eos # (Auto) 0.1 Baso # (Auto) 0.0 Abs Immat Gran (auto) 0.12 H Absolute Neuts (auto) 16.2 H Absolute Nucleated RBC 0.000 Nucleated RBC % (auto) 0.0 VBG pH VBG pCO2 VBG pO2 VBG HCO3 VBG O2 Saturation VBG Base Excess Anion Gap 21 H Estim Creat Clear Calc 6.3 Estimated GFR 5 POC Glucose 105 Random Glucose 123 H Lactic Acid 0.9 Calcium 8.0 L D Total Bilirubin 0.6 AST 17 ALT 7 Alkaline Phosphatase 45 B-Natriuretic Peptide 3132 H Total Protein 6.5 Albumin 3.7 Lipase 23 Urine Color Urine Appearance Urine pH Ur Specific [place] Urine Protein Urine Glucose (UA) Urine Ketones Urine Blood Urine Nitrite Ur Leukocyte Esterase Urine RBC Urine WBC Ur Squamous Epith Cells Urine Bacteria Hyaline Casts COVID-19 (SUNITHA) Negative COVID-19 Clin Com See Note 11/05/23 11/05/23 11/05/23 01:00 05:20 07:42 MCV MCH MCHC RDW Plt Count MPV Immature Gran % (Auto) Neut % (Auto) Lymph % (Auto) Potter % (Auto) Eos % (Auto) Baso % (Auto) Lymph # (Auto) Potter # (Auto) Eos # (Auto) Baso # (Auto) Abs Immat Gran (auto) Absolute Neuts (auto) Absolute Nucleated RBC Nucleated RBC % (auto) VBG pH 7.59 H VBG pCO2 24 VBG pO2 158 VBG HCO3 23 VBG O2 Saturation 99.0 VBG Base Excess 3.1 Anion Gap Estim Creat Clear Calc Estimated GFR POC Glucose 130 H Random Glucose Lactic Acid Calcium Total Bilirubin AST ALT Alkaline Phosphatase B-Natriuretic Peptide Total Protein Albumin Lipase Urine Color Yellow Urine Appearance Clear Urine pH >= 9.0 Ur Specific [place] 1.010 Urine Protein 300 (3+) H Urine Glucose (UA) 250 H Urine Ketones Trace Urine Blood Negative Urine Nitrite Negative Ur Leukocyte Esterase Negative Urine RBC 0-2 Urine WBC 0-5 Ur Squamous Epith Cells 0-2 Urine Bacteria None Seen Hyaline Casts 0-2 COVID-19 (SUNITHA) COVID-19 Clin Com Assessment and Plan (1) Sepsis: Status: Acute (2) Multifocal pneumonia: Status: Acute Plan 68 years old male with PMH of DMII, ESRD on HD, HTN, anxiety admitted for further management of sepsis #Sepsis due to multifocal pneumonia with acute hypoxemic respiratory failure -febrile to 101.4, tachypneic, wbc 18 -Repeat cxr showed bilateral patchy opacities L>R -Required rescue bipap early this morning (11/05) -IV ceftriaxone and doxycycline (initiated 11/05) -Viral resp panel negative -sputum cx, legionella ag, strep pneumo ag pending -Clear liquids given vomiting, ondansetron prn. Advance diet to full liquids -continue supplemental O2 to maintain oximetry >92% #Elevated BNP -elevation likely in setting of ESRD, however cannot r/o underlying chf -Will give 1 dose lasix given missed HD and mild congestion noted on cxr. Continue hd -check echo -stirict I&O -advance to cardiac diet #Insulin dependent type 2 diabetes- without hyperglycemia -dose adjusted basal insulin -poc glucose, humalog on sliding scale -advance to diabetic diet #ESRD on HD -MWF schedule, missed HD today -nephro consult -fluid restrictions, low K/phosph/Na diet per nephro PN -continue phosphorus binders AC #HTN -continue antihypertensives #Chronic pain -continue oxycodone #Mood disorder -continue home meds DVT prophyalxis- heparin Full code Pt requires ongoing inpt stayfor ongoing management sepsis due to pneumonia with acute hypoxemic respiratory failure requiring iv abx and monitoring as well as expert consultation and HD Quality Stroke Does the patient have a stroke diagnosis?: No VTE Prior VTE?: No VTE Risk Level:: Medical - moderate - high VTE Device Contraindication: Treatment Not Indicated VTE Drug Contraindication: N/A - Med Ordered
[2023-11-05 10:10] LABS: SARS-CoV-2 PCR Not Detected (Not Detect.)
--- NOTE | 2023-11-05 11:15 | MHC.CM.PN ---
IMM DELIVERED. PT LIVES WITH SPOUSE. ATTENDS HD AT [facility] AT 10:30 AM. TRANSPORTS. DM SUPPLIES VIA [facility]. INDEPENDENT WITH MOBILITY. + HCP ON FILE. PCP DR. ALLEN. DP: HOME, PT/SPOUSE OPEN TO SERVICES , FIRST CHO[facility]. WILL TRANSPORT. CM WILL CONTINUE TO FOLLOW FR ANY CHANGE IN DC NEEDS/PLAN
[2023-11-05 12:22] LABS: Basophils Absolute Auto 0.1 X10*3/uL (0.0-0.2); Basophils Percent Auto 0.3 % (0-2); Eosinophils Absolute Auto 0.3 X10*3/uL (0.0-0.4); Eosinophils Percent Auto 1.1 % (0-4); Hematocrit 29.8 % (42.0-52.0); Hemoglobin 10.3 g/dl (14.0-18.0); Imm Gran Abs Auto 0.21 X10*3/uL (0.00-0.03); Imm Gran Pct Auto 0.9 % (0.0-0.4); Lymphocytes Absolute Auto 0.7 X10*3/uL (1.2-4.9); MANUAL DIFF FLAG SCAN; Mean Corpuscular HGB Conc 34.6 g/dl (31.0-36.0); Mean Corpuscular Hemoglobin 31.3 pg (27.0-33.0); Mean Corpuscular Volume 90.6 fL (80.0-98.0); Mean Platelet Volume 10.8 fL (9.4-12.4); Monocytes Absolute Auto 1.6 X10*3/uL (0.1-1.2); Monocytes Percent Auto 6.8 % (2-11); Neutrophils Absolute Auto 20.3 x10*3/uL (2.0-8.3); Neutrophils Percent Auto 87.9 % (45-73); Platelet Count 267 X10*3/uL (160-400); Red Blood Count 3.29 X10*6/uL (4.60-5.80); Red Cell Distribution Width 15.6 % (11.0-16.0); SCAN SMEAR FLAG 1; White Blood Count 23.1 X10*3/uL (4.8-10.8)
[2023-11-05 12:46] LABS: Anion Gap 18 (12-20); Blood Urea Nitrogen 25 mg/dL (9-16); Calcium 8.9 mg/dL (8.4-10.2); Carbon Dioxide 28 mmol/L (22-29); Chloride 96 mmol/L (96-108); Creatinine Clr Calc Pharmacy 13.7; Estimated Glomerular Filt Rate 11; Glucose Random 117 mg/dL (60-115); Potassium 3.1 mmol/L (3.3-5.1); Sodium 139 mmol/L (135-145)
[2023-11-05 12:49] LABS: SLIDE REVIEW VERIFIED
--- NOTE | 2023-11-05 13:16 | P.CONNP_ITS ---
History of Present Illness Reason for Consult Consult date: 11/05/23 Chief Complaint Chief complaint: cough, sob, vomiting History of Present Illness Narrative: 68 years old male with ESRD on HD who recently had a hospitalization presented to the ED for evaluation of cough, sob, and vomiting ongoing for 2 days. He was recently admitted 10/29-10/31 due to pulmonary edema and sob requiring CPAP. He reports since discharge he has has multiple bouts of vomiting with PO intolerance as well as subjective fevers. No recent travel, abd pain, hematemesis, diarrhea, melena, hematochezia, wheezing, palpitations, lightheadedness, or chest pain. He also reported chronic pain in the neck and right testicle which he states has been going on for months. He does make some urine and denies any other urinary complaints. He did miss dialysis yesterday. Per EMS, pt was satting in the 80s on arrival and placed on 4L. Pt was oxygen dependent during last admission but apparentlyl was maintaining O2 and did not require home O2 on discharge. On arrival to the ED, he was febrile to 101.4 and intermittently tachypneic with a leukocytosis of 18.6. Creat 11.02, bun 61. Na 130, K 4.2, Cl 90. Lactic acid 0.9. BNP 3132. Negative for COVID-19. CXR shows mild cardiomegaly with prominent vascularity likely mild congestion. No effusions or consolidations. He was admitted for further management. Nephrology was consulted to assist in his clinical care during his current hospital stay Review of Systems Review of Systems Yes all other systems are reviewed and are negative PMFSH Past Medical History Medical History ESRD needing dialysis DONIS (acute kidney injury) End stage renal disease on dialysis Diabetes Kidney failure HTN (hypertension) Social History Social History Household Members: Spouse Housing: House Do you presently have visiting nurse or other home services: No Alcohol intake: never Patient Tobacco Use Status: Never used Tobacco Advance Directives Date on File: 09/07/23 service: No Meds Allergies Allergy/AdvReac Type Severity Reaction Status Date / Time Penicillins [PENICILLINS] Allergy Unknown RASH Verified 07/11/21 06:26 tramadol [From ULTRAM] Allergy Unknown RASH Verified 07/11/21 06:26 trazodone [TRAZODONE] Allergy Unknown PRIAPISM Verified 07/11/21 06:26 risperidone [RISPERIDONE] AdvReac Severe dizzy, EPS Verified 07/11/21 06:26 Active Medications: Current Medications Acetaminophen (Acetaminophen 325 Mg Tablet) 650 mg PO Q6H PRN PRN Reason: Fever >100.4 Last Admin: 11/05/23 02:51 Dose: 650 mg Albuterol Sulfate (Albuterol Sulfate 90 Mcg 8 Gm Inhaler) 2 puff INHALE Q4H PRN PRN Reason: Shortness Of Breath Amlodipine Besylate (Amlodipine Besylate 10 Mg Tablet) 10 mg PO DAILY [facility]; Protocol Amphetamine/Dextroamphetamine (Amphetamine Mixed Salts 20 Mg Tablet) 20 mg PO DAILY [facility] Last Admin: 11/05/23 08:57 Dose: 20 mg Atenolol (Atenolol 100 Mg Tablet) 100 mg PO DAILY [facility]; Protocol Clonazepam (Clonazepam 0.5 Mg Tablet) 0.5 mg PO TID PRN PRN Reason: Anxiety Last Admin: 11/05/23 08:56 Dose: 0.5 mg Dextrose (Dextrose 50 % 25 Gm/50 Ml Syringe) 25 gm IVPUSH Q15M PRN; Protocol PRN Reason: per Hypoglycemia Standing Ord. Glucose (Glucose Gel 15 Gm Gel..Gram.) 15 gm PO Q15M PRN; Protocol PRN Reason: per Hypoglycemia Standing Ord. Guaifenesin (Guaifenesin 200 Mg/10 Ml 10 Ml Liquid) 10 ml PO Q4H PRN PRN Reason: Cough Heparin Sodium (Porcine) (Heparin Sodium,Porcine 5,000 Unit/Ml Vial) 5,000 unit SUBCUT Q12H [facility] Last Admin: 11/05/23 09:01 Dose: 5,000 unit Ceftriaxone Sodium 1 gm/ (Sodium Chloride) 50 mls @ 100 mls/hr IV Q24H [facility] Doxycycline Hyclate 100 mg/ (Sodium Chloride) 250 mls @ 166.67 mls/hr IV Q12H [facility] Last Infusion: 11/05/23 08:14 Dose: Infused Insulin Glargine (Insulin Glargine,Hum.Rec.Anlog 100 Unit/Ml 10 Ml Vial) 38 unit SUBCUT DAILY [facility] Insulin Human Lispro (Insulin Lispro 100 Unit/Ml 3 Ml Vial) 0 unit SUBCUT QIDACHS [facility]; Protocol Last Admin: 11/05/23 09:02 Dose: Not Given Levothyroxine Sodium 112 mcg/ (Levothyroxine Sodium 25 mcg) 137 mcg PO DAILY@0600 [facility] Last Admin: 11/05/23 08:57 Dose: 137 mcg Losartan Potassium (Losartan Potassium 50 Mg Tablet) 50 mg PO DAILY [facility]; Protocol Omeprazole (Omeprazole 20 Mg Capsule.Dr) 20 mg PO DAILY@0630 [facility] Last Admin: 11/05/23 08:57 Dose: 20 mg Ondansetron HCl (Ondansetron Hcl 4 Mg/2 Ml Vial) 4 mg IVPUSH Q8H PRN PRN Reason: Nausea and Vomiting Last Admin: 11/05/23 09:11 Dose: 4 mg Oxycodone HCl (Oxycodone Hcl Immed Release 5 Mg Tablet) 10 mg PO BID PRN PRN Reason: severe pain Last Admin: 11/05/23 08:56 Dose: 10 mg Sevelamer Carbonate (Sevelamer Carbonate Tablet 800 Mg Tablet) 800 mg PO TID [facility] Last Admin: 11/05/23 08:57 Dose: 800 mg Sodium Chloride (0.9 % Sodium Chloride Flush 3 Ml Syringe) [facility] Last Admin: 11/05/23 09:02 Dose: 3 ml Home Medications Medication Instructions Recorded Confirmed Last Taken Type atenolol 100 mg tablet 1 tab PO DAILY 07/11/21 11/04/23 11/04/23 History blood sugar diagnostic (FreeStyle 07/11/21 07/11/21 Unknown History Lite Strips) dextroamphetamine-amphetamine 20 1 tab PO DAILY 07/11/21 11/04/23 11/04/23 History mg tablet levothyroxine 137 mcg tablet 1 tab PO DAILY@0600 07/11/21 11/04/23 Unknown History pen needle, diabetic 31 gauge x 07/11/21 07/11/21 Unknown History 03/03 (BD Ultra-Fine Short Pen Needle) amlodipine 5 mg tablet 10 mg PO DAILY 09/03/23 11/04/23 11/04/23 History clonazepam 0.5 mg tablet 0.5 mg PO TID PRN Anxiety 09/03/23 11/04/23 11/04/23 History albuterol sulfate 90 mcg/actuation 2 puff inhalation Q4-6H PRN 10/29/23 11/04/23 Unknown History aerosol inhaler (Ventolin HFA) Shortness Of Breath insulin glargine 100 unit/mL (3 50 unit subcut DAILY PRN 10/29/23 11/04/23 11/04/23 History mL) subcutaneous pen (Lantus Hyperglycemia Solostar U-100 Insulin) oxycodone 5 mg tablet 10 mg PO BID PRN severe pain 10/29/23 11/04/23 Unknown History prochlorperazine maleate 10 mg 10 mg PO DAILY PRN nausea 10/29/23 11/04/23 Unknown History tablet Physical Exam Vital Signs: Last Vital Signs Temp 97.6 F 11/05/23 07:12 Pulse 75 11/05/23 07:12 Resp 27 H 11/05/23 07:40 BP 171/82 H 11/05/23 07:12 Pulse Ox 91 L 11/05/23 07:12 O2 Del Method BiPAP 11/05/23 07:12 O2 Flow Rate 10 11/05/23 07:12 FiO2 45 11/05/23 07:12 Oxygen Flow Rate 4 11/04/23 15:43 BMI result Body Mass Index 29.4 Const General: awake Eyes EOM: EOMs intact bilaterally Neck Neck: Yes supple Resp Auscultation: diminished lung sounds Cardio Rate: regular rate GI Palpation (GI): Soft to palpation Skin General skin exam: no rashes or lesions noted Neuro General: moves all extremities Results Lab Results 11/05/23 11:31 11/05/23 11:31 Lab results: Chemistry 11/04/23 11/05/23 18:07 11:31 Sodium 130 L 139 Potassium 4.2 3.1 L D Carbon Dioxide 23 28 BUN 61 H 25 H Creatinine 11.02 H* 5.11 H* Calcium 8.0 L D 8.9 D Hematology 11/04/23 11/05/23 18:07 11:31 WBC 18.6 H 23.1 H Hgb 9.8 L 10.3 L Plt Count 258 D 267 Urinalysis 11/05/23 01:00 Urine Color Yellow Urine Appearance Clear Urine pH >= 9.0 Ur Specific [place] 1.010 Urine Protein 300 (3+) H Urine Glucose (UA) 250 H Urine Ketones Trace Urine Blood Negative Urine Nitrite Negative Ur Leukocyte Esterase Negative Urine RBC 0-2 Urine WBC 0-5 Ur Squamous Epith Cells 0-2 Hyaline Casts 0-2 Assessment and Plan (1) Secondary hyperparathyroidism (of renal origin): Status: Acute (2) End stage renal disease on dialysis: Status: Acute (3) Acute hypoxic respiratory failure: Status: Acute Plan He will be put back on his dialysis today & back on his regular schedule tomorrow. His dry weight needs to be brought down. His amlodipine can be discontinued and losartan can be maximized after bringing the dry weight down. He should be on a low-sodium, low potassium, low phosphorus diet with a fluid restriction. He should take phosphorus binders 3 times a day with meals. We shall closely follow-up him up during his current hospital stay for continued care. Procedures Date of Service Date of Service: 11/05/23
[2023-11-05] MEDS: amLODIPine Besylate 10 MG TABLET PO (15:59)
[2023-11-05] MEDS: Losartan Potassium 50 MG TABLET PO (15:59)
[2023-11-05] MEDS: Potassium Chloride Packet 20 MEQ PACKET 40 MEQ PO (16:00)
[2023-11-05] MEDS: atenoloL 100 MG TABLET PO (16:00)
[2023-11-05 16:09] LABS: Glucose, Whole Blood 146 mg/dL (60-115)
[2023-11-05] MEDS: cefTRIAXone sodium 1 GM in 0.9 % Sodium Chloride 50 ML IV (17:14)
[2023-11-05] MEDS: Doxycycline Hyclate 100 MG in 0.9 % Sodium Chloride 250 ML 166.7 MG IV (18:27)
[2023-11-05 19:50] LABS: Glucose, Whole Blood 143 mg/dL (60-115)
[2023-11-06] VITALS (9 sets, daily range): BP systolic 133–171; BP diastolic 61–83; PULSE 62–79; RESP 16–18; TEMP 36.1–37.1; O2SAT 94–100
[2023-11-06] MEDS: Doxycycline Hyclate 100 MG in 0.9 % Sodium Chloride 250 ML 166.67 MG IV ×2 (05:14→18:02)
[2023-11-06] MEDS: Levothyroxine Sodium 112 MCG, Levothyroxine Sodium 25 MCG 137 MCG PO (05:14)
[2023-11-06] MEDS: oxyCODONE HCl Immed Release 5 MG TABLET 10 MG PO ×2 (05:15→17:22)
[2023-11-06] MEDS: clonazePAM 0.5 MG TABLET PO ×3 (05:15→20:29)
[2023-11-06] MEDS: Omeprazole 20 MG CAPSULE.DR PO (05:15)
[2023-11-06 06:33] LABS: MANUAL DIFF FLAG NO
[2023-11-06 06:39] LABS: Basophils Percent Auto 0.3 % (0-2); Eosinophils Absolute Auto 0.6 X10*3/uL (0.0-0.4); Hematocrit 31.4 % (42.0-52.0); Hemoglobin 10.5 g/dl (14.0-18.0); Imm Gran Abs Auto 0.08 X10*3/uL (0.00-0.03); Imm Gran Pct Auto 0.6 % (0.0-0.4); Lymphocytes Absolute Auto 0.9 X10*3/uL (1.2-4.9); Lymphocytes Percent Auto 6.6 % (20-40); Mean Corpuscular HGB Conc 33.4 g/dl (31.0-36.0); Mean Corpuscular Hemoglobin 30.6 pg (27.0-33.0); Mean Corpuscular Volume 91.5 fL (80.0-98.0); Mean Platelet Volume 10.6 fL (9.4-12.4); Monocytes Absolute Auto 1.3 X10*3/uL (0.1-1.2); Monocytes Percent Auto 9.9 % (2-11); Neutrophils Absolute Auto 10.7 x10*3/uL (2.0-8.3); Neutrophils Percent Auto 78.6 % (45-73); Platelet Count 228 X10*3/uL (160-400); Red Blood Count 3.43 X10*6/uL (4.60-5.80); Red Cell Distribution Width 15.7 % (11.0-16.0); White Blood Count 13.6 X10*3/uL (4.8-10.8)
[2023-11-06 06:52] LABS: Anion Gap 21 (12-20); Blood Urea Nitrogen 35 mg/dL (9-16); Calcium 8.8 mg/dL (8.4-10.2); Carbon Dioxide 24 mmol/L (22-29); Chloride 93 mmol/L (96-108); Creatinine Clr Calc Pharmacy 8.8; Estimated Glomerular Filt Rate 7; Glucose Random 110 mg/dL (60-115); Potassium 4.2 mmol/L (3.3-5.1); Sodium 134 mmol/L (135-145)
[2023-11-06 07:32] LABS: Glucose, Whole Blood 130 mg/dL (60-115)
[2023-11-06 11:22] LABS: Glucose, Whole Blood 107 mg/dL (60-115)
--- NOTE | 2023-11-06 12:46 | MHC.CM.PN ---
DP Home with [facility] and resumption of HD at D. Patients will provide transport to HD as well as home.
[2023-11-06] MEDS: Losartan Potassium 50 MG TABLET PO (13:45)
[2023-11-06] MEDS: amLODIPine Besylate 10 MG TABLET PO (13:46)
[2023-11-06] MEDS: atenoloL 100 MG TABLET PO (13:46)
[2023-11-06] MEDS: Acetaminophen 325 MG TABLET 650 MG PO (13:53)
--- NOTE | 2023-11-06 15:07 | P.PNIM_ITS ---
Subjective Subjective Date of Service: 11/07/23 Interval History: No acute issues overnight. O2 sats stable on 4 L Review of Systems Denies chest pain Admits to shortness of breath that has improved Denies nausea vomiting diarrhea Denies fever chills Physical Exam 2 Vital Signs: Vital Signs: Last Vital Signs Temp 98.7 F 11/06/23 07:33 Pulse 77 11/06/23 13:33 Resp 16 11/06/23 13:33 BP 161/73 H 11/06/23 13:33 Pulse Ox 100 11/06/23 13:56 O2 Del Method Nasal Cannula 11/06/23 13:56 O2 Flow Rate 4 11/06/23 13:56 FiO2 45 11/05/23 07:12 Oxygen Flow Rate 4 11/04/23 15:43 BMI result Body Mass Index 29.4 Const: Other: Awake alert no acute distress Resp: Other: Clear but diminished. Coarse rhonchi at the bases Cardio: Other: No S4; positive S1-S2; no S3 murmurs rubs or gallops GI: Other: Soft nontender nondistended normoactive bowel sounds Extrem: Other: No edema bilaterally Objective Data Active Medications Acetaminophen (Acetaminophen 325 Mg Tablet) 650 mg PO Q6H PRN PRN Reason: Fever >100.4 Last Admin: 11/06/23 13:53 Dose: 650 mg Documented By: KELLEN Albuterol Sulfate (Albuterol Sulfate 90 Mcg 8 Gm Inhaler) 2 puff INHALE Q4H PRN PRN Reason: Shortness Of Breath Amlodipine Besylate (Amlodipine Besylate 10 Mg Tablet) 10 mg PO DAILY [facility]; Protocol Last Admin: 11/06/23 13:46 Dose: 10 mg Documented By: KELLEN Amphetamine/Dextroamphetamine (Amphetamine Mixed Salts 20 Mg Tablet) 20 mg PO DAILY [facility] Last Admin: 11/06/23 13:46 Dose: Not Given Documented By: KELLEN Non-Admin Reason: pt refused Atenolol (Atenolol 100 Mg Tablet) 100 mg PO DAILY [facility]; Protocol Last Admin: 11/06/23 13:46 Dose: 100 mg Documented By: KELLEN Clonazepam (Clonazepam 0.5 Mg Tablet) 0.5 mg PO TID PRN PRN Reason: Anxiety Last Admin: 11/06/23 13:53 Dose: 0.5 mg Documented By: KELLEN Dextrose (Dextrose 50 % 25 Gm/50 Ml Syringe) 25 gm IVPUSH Q15M PRN; Protocol PRN Reason: per Hypoglycemia Standing Ord. Glucose (Glucose Gel 15 Gm Gel..Gram.) 15 gm PO Q15M PRN; Protocol PRN Reason: per Hypoglycemia Standing Ord. Guaifenesin (Guaifenesin 200 Mg/10 Ml 10 Ml Liquid) 10 ml PO Q4H PRN PRN Reason: Cough Heparin Sodium (Porcine) (Heparin Sodium,Porcine 5,000 Unit/Ml Vial) 5,000 unit SUBCUT Q12H [facility] Last Admin: 11/06/23 10:00 Dose: Not Given Documented By: KELLEN Non-Admin Reason: Off unit: Dialysis Ceftriaxone Sodium 1 gm/ (Sodium Chloride) 50 mls @ 100 mls/hr IV Q24H [facility] Last Infusion: 11/05/23 17:49 Dose: Infused Documented By: ELIZABETH Doxycycline Hyclate 100 mg/ (Sodium Chloride) 250 mls @ 166.67 mls/hr IV Q12H [facility] Last Infusion: 11/06/23 07:06 Dose: Infused Documented By: CASTILCharu Insulin Glargine (Insulin Glargine,Hum.Rec.Anlog 100 Unit/Ml 10 Ml Vial) 38 unit SUBCUT DAILY [facility] Last Admin: 11/06/23 10:35 Dose: Not Given Documented By: KELLEN Non-Admin Reason: Pain Insulin Human Lispro (Insulin Lispro 100 Unit/Ml 3 Ml Vial) 0 unit SUBCUT QIDACHS [facility]; Protocol Last Admin: 11/06/23 12:48 Dose: Not Given Documented By: KELLEN Non-Admin Reason: No Insulin Coverage Levothyroxine Sodium 112 mcg/ (Levothyroxine Sodium 25 mcg) 137 mcg PO DAILY@0600 [facility] Last Admin: 11/06/23 05:14 Dose: 137 mcg Documented By: JEAN CLAUDE Lidocaine HCl (Lidocaine Hcl 1 % Mpf 2 Ml Vial) 0.5 ml SUBCUT MOWEFR@1645 [facility] Losartan Potassium (Losartan Potassium 50 Mg Tablet) 50 mg PO DAILY [facility]; Protocol Last Admin: 11/06/23 13:45 Dose: 50 mg Documented By: KELLEN Omeprazole (Omeprazole 20 Mg Capsule.Dr) 20 mg PO DAILY@0630 [facility] Last Admin: 11/06/23 05:15 Dose: 20 mg Documented By: JEAN CLAUDE Ondansetron HCl (Ondansetron Hcl 4 Mg/2 Ml Vial) 4 mg IVPUSH Q8H PRN PRN Reason: Nausea and Vomiting Last Admin: 11/05/23 09:11 Dose: 4 mg Documented By: JUANCARLOS Oxycodone HCl (Oxycodone Hcl Immed Release 5 Mg Tablet) 10 mg PO BID PRN PRN Reason: severe pain Last Admin: 11/06/23 05:15 Dose: 10 mg Documented By: JEAN CLAUDE Sevelamer Carbonate (Sevelamer Carbonate Tablet 800 Mg Tablet) 800 mg PO TID [facility] Last Admin: 11/06/23 10:34 Dose: Not Given Documented By: KELLEN Non-Admin Reason: Off unit: Dialysis Sodium Chloride (0.9 % Sodium Chloride Flush 3 Ml Syringe) 3 ml IVFLUSH QSHIFT [facility] Last Admin: 11/06/23 10:34 Dose: Not Given Documented By: KELLEN Non-Carley Reason: Off unit: Dialysis Labs 11/07/23 10:51 11/06/23 06:03 Labs: Laboratory Results - last 24 hr 11/05/23 11/05/23 11/06/23 16:05 19:43 06:03 MCV 91.5 MCH 30.6 MCHC 33.4 RDW 15.7 Plt Count 228 MPV 10.6 Immature Gran % (Auto) 0.6 H Neut % (Auto) 78.6 H Lymph % (Auto) 6.6 L Cal[place] % (Auto) 9.9 Eos % (Auto) 4.0 Baso % (Auto) 0.3 Lymph # (Auto) 0.9 L [place] # (Auto) 1.3 H Eos # (Auto) 0.6 H Baso # (Auto) 0.0 Abs Immat Gran (auto) 0.08 H Absolute Neuts (auto) 10.7 H Absolute Nucleated RBC 0.000 Nucleated RBC % (auto) 0.0 Anion Gap 21 H Estim Creat Clear Calc 8.8 Estimated GFR 7 POC Glucose 146 H 143 H Random Glucose 110 Calcium 8.8 11/06/23 11/06/23 07:24 11:17 MCV MCH MCHC RDW Plt Count MPV Immature Gran % (Auto) Neut % (Auto) Lymph % (Auto) [place] % (Auto) Eos % (Auto) Baso % (Auto) Lymph # (Auto) [place]vert # (Auto) Eos # (Auto) Baso # (Auto) Abs Immat Gran (auto) Absolute Neuts (auto) Absolute Nucleated RBC Nucleated RBC % (auto) Anion Gap Estim Creat Clear Calc Estimated GFR POC Glucose 130 H 107 Random Glucose Calcium Microbiology Microbiology Results: Microbiology 11/04/23 18:30 Blood Culture - Preliminary Blood - Venous No growth after 24 hours. 11/04/23 18:30 Blood Culture - Preliminary Blood - Venous No growth after 24 hours. Assessment and Plan (1) Multifocal pneumonia: Status: Acute (2) Sepsis: Status: Acute (3) Anemia in chronic kidney disease: Status: Acute (4) HTN (hypertension): Status: Acute Plan 68 years old male with PMH of DMII, ESRD on HD, HTN, anxiety admitted for further management of sepsis 1.Sepsis due to multifocal pneumonia with acute hypoxemic respiratory failure; sepsis resolved -IV ceftriaxone/doxycycline (2) -Viral resp panel negative -sputum cx, legionella ag, strep pneumo ag pending -continue supplemental O2 to maintain oximetry >92% 2.Elevated BNP -good response to dialysis -follow clinically 3.Insulin dependent type 2 diabetes -acceptable control on current therapies -lispro correctional scale #ESRD on HD -MWF schedule, missed HD today -nephro consult -fluid restrictions, low K/phosph/Na diet per nephro PN -continue phosphorus binders AC #HTN -continue antihypertensives #Chronic pain -continue oxycodone #Mood disorder -continue home meds DVT prophyalxis- heparin Full code Pt requires ongoing inpt stayfor ongoing management sepsis due to pneumonia with acute hypoxemic respiratory failure requiring iv abx and monitoring as well as expert consultation and HD Quality Stroke Does the patient have a stroke diagnosis?: No VTE Prior VTE?: No VTE Risk Level:: Medical - moderate - high VTE Device Contraindication: Treatment Not Indicated VTE Drug Contraindication: N/A - Med Ordered
[2023-11-06] MEDS: 0.9 % Sodium Chloride Flush 3 ML SYRINGE IVFLUSH ×2 (15:57→19:57)
[2023-11-06] MEDS: Sevelamer Carbonate Tablet 800 MG TABLET PO ×2 (15:57→20:29)
[2023-11-06 16:36] LABS: Glucose, Whole Blood 152 mg/dL (60-115)
[2023-11-06] MEDS: Insulin Lispro 100 UNIT/ML 3 ML VIAL SUBCUT (17:14)
[2023-11-06] MEDS: cefTRIAXone sodium 1 GM in 0.9 % Sodium Chloride 50 ML IV (17:15)
--- NOTE | 2023-11-06 20:17 | P.PNNP_ITS ---
Subjective Subjective Date of Service: 11/06/23 Interval history: No acute issues overnight. O2 sats stable on 4 L; Tolerating HD well Physical Exam 2 Vital Signs: Vital Signs: Last Vital Signs Temp 97.9 F 11/06/23 19:46 Pulse 68 11/06/23 19:46 Resp 18 11/06/23 19:46 BP 158/75 H 11/06/23 19:46 Pulse Ox 96 11/06/23 19:46 O2 Del Method Nasal Cannula 11/06/23 19:46 O2 Flow Rate 2 11/06/23 19:46 FiO2 45 11/05/23 07:12 Oxygen Flow Rate 4 11/04/23 15:43 BMI result Body Mass Index 29.4 Const: General: comfortable and no acute distress O rientation/consciousness: patient oriented x3 HEENT: Head: Yes normocephalic Mouth: Normal oral and palatal mucosa present Eyes: EOM: EOMs intact bilaterally Neck: Neck: Yes supple Resp: Auscultation: clear to auscultation bilaterally Cardio: Jugular venous distension: no JVD Rate: regular rate GI: Palpation (GI): Soft to palpation Auscultation: normal bowel sounds : General: Yes no CVA tenderness Back/Spine/Pelvis: Back: no CVA tenderness Skin: General skin exam: no rashes or lesions noted Neuro: General: patient oriented x3 and moves all extremities Extrem: General: Yes no pedal edema Objective Data Labs 11/06/23 06:03 11/06/23 06:03 Labs: Laboratory Results - last 24 hr 11/06/23 11/06/23 11/06/23 06:03 07:24 11:17 WBC 13.6 H RBC 3.43 L Hgb 10.5 L Hct 31.4 L MCV 91.5 MCH 30.6 MCHC 33.4 RDW 15.7 Plt Count 228 MPV 10.6 Immature Gran % (Auto) 0.6 H Neut % (Auto) 78.6 H Lymph % (Auto) 6.6 L Clayton % (Auto) 9.9 Eos % (Auto) 4.0 Baso % (Auto) 0.3 Lymph # (Auto) 0.9 L [place] # (Auto) 1.3 H Eos # (Auto) 0.6 H Baso # (Auto) 0.0 Abs Immat Gran (auto) 0.08 H Absolute Neuts (auto) 10.7 H Absolute Nucleated RBC 0.000 Nucleated RBC % (auto) 0.0 Sodium 134 L Potassium 4.2 D Chloride 93 L Carbon Dioxide 24 Anion Gap 21 H BUN 35 H Creatinine 7.96 H* Estim Creat Clear Calc 8.8 Estimated GFR 7 POC Glucose 130 H 107 Random Glucose 110 Calcium 8.8 11/06/23 16:32 WBC RBC Hgb Hct MCV MCH MCHC RDW Plt Count MPV Immature Gran % (Auto) Neut % (Auto) Lymph % (Auto) [place] % (Auto) Eos % (Auto) Baso % (Auto) Lymph # (Auto) [place] # (Auto) Eos # (Auto) Baso # (Auto) Abs Immat Gran (auto) Absolute Neuts (auto) Absolute Nucleated RBC Nucleated RBC % (auto) Sodium Potassium Chloride Carbon Dioxide Anion Gap BUN Creatinine Estim Creat Clear Calc Estimated GFR POC Glucose 152 H Random Glucose Calcium Microbiology Microbiology Results: Microbiology 11/04/23 18:30 Blood - Venous Blood Culture - Preliminary No growth after 24 hours. 11/04/23 18:30 Blood - Venous Blood Culture - Preliminary No growth after 24 hours. Procedures Date of Service Date of Service: 11/06/23 Assessment & Plan Assessment and plan (1) End stage renal disease on dialysis: Status: Acute Plan Had regular hd as per schedule today. His dry weight needs to be brought down. His amlodipine can be discontinued and losartan can be maximized after bringing the dry weight down. He should be on a low-sodium, low potassium, low phosphorus diet with a fluid restriction. He should take phosphorus binders 3 times a day with meals. We shall closely follow-up him up during his current hospital stay for continued care Progress Note: Quality Stroke Does the patient have a stroke diagnosis?: No
[2023-11-06 20:20] LABS: Glucose, Whole Blood 110 mg/dL (60-115)
[2023-11-06] MEDS: Heparin Sodium,Porcine 5,000 UNIT/ML VIAL 5000 UNIT SUBCUT (20:29)
[2023-11-07 03:27] VITALS: BP 147/70; PULSE 65; RESP 18; TEMP 36.2; O2SAT 97
[2023-11-07] MEDS: Omeprazole 20 MG CAPSULE.DR PO (05:56)
[2023-11-07] MEDS: Levothyroxine Sodium 112 MCG, Levothyroxine Sodium 25 MCG 137 MCG PO (05:56)
[2023-11-07] MEDS: Doxycycline Hyclate 100 MG in 0.9 % Sodium Chloride 250 ML 166.67 MG IV (05:57)
[2023-11-07] MEDS: 0.9 % Sodium Chloride Flush 3 ML SYRINGE IVFLUSH ×3 (07:22→19:48)
[2023-11-07 07:23] VITALS: BP 169/81; PULSE 70; RESP 20; TEMP 36.8; O2SAT 98
[2023-11-07] MEDS: Sevelamer Carbonate Tablet 800 MG TABLET PO ×3 (07:36→19:48)
[2023-11-07] MEDS: Losartan Potassium 50 MG TABLET PO (07:37)
[2023-11-07] MEDS: amLODIPine Besylate 10 MG TABLET PO (07:37)
[2023-11-07] MEDS: Amphetamine Mixed Salts 20 MG TABLET PO (07:37)
[2023-11-07] MEDS: oxyCODONE HCl Immed Release 5 MG TABLET 10 MG PO ×2 (07:37→19:48)
[2023-11-07] MEDS: atenoloL 100 MG TABLET PO (07:37)
[2023-11-07] MEDS: clonazePAM 0.5 MG TABLET PO (07:41)
--- NOTE | 2023-11-07 07:42 | PC.NURSE ---
Assumed care 19:00 (11/06). See shift assessment and EMAR for full details. Handoff report given 06:45.
[2023-11-07 07:43] LABS: Glucose, Whole Blood 112 mg/dL (60-115)
[2023-11-07] MEDS: Heparin Sodium,Porcine 5,000 UNIT/ML VIAL 5000 UNIT SUBCUT ×2 (10:55→20:59)
[2023-11-07 11:02] LABS: White Blood Count 8.3 X10*3/uL (4.8-10.8)
[2023-11-07 11:09] LABS: Glucose, Whole Blood 166 mg/dL (60-115)
[2023-11-07] MEDS: Insulin Lispro 100 UNIT/ML 3 ML VIAL SUBCUT ×2 (11:37→20:59)
--- NOTE | 2023-11-07 14:04 | P.PNIM_ITS ---
Subjective Subjective Date of Service: 11/07/23 Interval History: Continues to improve. No acute events overnight Review of Systems Denies chest pain Admits to shortness of breath that has improved Denies nausea vomiting diarrhea Denies fever chills Physical Exam 2 Vital Signs: Vital Signs: Last Vital Signs Temp 98.3 F 11/07/23 07:23 Pulse 70 11/07/23 07:23 Resp 20 11/07/23 07:23 BP 169/81 H 11/07/23 07:23 Pulse Ox 98 11/07/23 07:23 O2 Del Method Nasal Cannula 11/07/23 07:23 O2 Flow Rate 2 11/07/23 07:23 FiO2 45 11/05/23 07:12 Oxygen Flow Rate 4 11/04/23 15:43 BMI result Body Mass Index 29.4 Const: Other: Awake alert no acute distress Resp: Other: Clear but diminished. Coarse rhonchi at the bases Cardio: Other: No S4; positive S1-S2; no S3 murmurs rubs or gallops GI: Other: Soft nontender nondistended normoactive bowel sounds Extrem: Other: No edema bilaterally Objective Data Active Medications Acetaminophen (Acetaminophen 325 Mg Tablet) 650 mg PO Q6H PRN PRN Reason: Fever >100.4 Last Admin: 11/06/23 13:53 Dose: 650 mg Documented By: KELLEN Albuterol Sulfate (Albuterol Sulfate 90 Mcg 8 Gm Inhaler) 2 puff INHALE Q4H PRN PRN Reason: Shortness Of Breath Amlodipine Besylate (Amlodipine Besylate 10 Mg Tablet) 10 mg PO DAILY [facility]; Protocol Last Admin: 11/07/23 07:37 Dose: 10 mg Documented By: JUAN Amphetamine/Dextroamphetamine (Amphetamine Mixed Salts 20 Mg Tablet) 20 mg PO DAILY [facility] Last Admin: 11/07/23 07:37 Dose: 20 mg Documented By: JUAN Atenolol (Atenolol 100 Mg Tablet) 100 mg PO DAILY [facility]; Protocol Last Admin: 11/07/23 07:37 Dose: 100 mg Documented By: JUAN Clonazepam (Clonazepam 0.5 Mg Tablet) 0.5 mg PO TID PRN PRN Reason: Anxiety Last Admin: 11/07/23 07:41 Dose: 0.5 mg Documented By: JUAN Dextrose (Dextrose 50 % 25 Gm/50 Ml Syringe) 25 gm IVPUSH Q15M PRN; Protocol PRN Reason: per Hypoglycemia Standing Ord. Doxycycline Monohydrate (Doxycycline Monohydrate 100 Mg Capsule) 100 mg PO BID [facility] Glucose (Glucose Gel 15 Gm Gel..Gram.) 15 gm PO Q15M PRN; Protocol PRN Reason: per Hypoglycemia Standing Ord. Guaifenesin (Guaifenesin 200 Mg/10 Ml 10 Ml Liquid) 10 ml PO Q4H PRN PRN Reason: Cough Heparin Sodium (Porcine) (Heparin Sodium,Porcine 5,000 Unit/Ml Vial) 5,000 unit SUBCUT Q12H [facility] Last Admin: 11/07/23 10:55 Dose: 5,000 unit Documented By: JUAN Ceftriaxone Sodium 1 gm/ (Sodium Chloride) 50 mls @ 100 mls/hr IV Q24H [facility] Last Infusion: 11/06/23 17:55 Dose: Infused Documented By: KELLEN Insulin Glargine (Insulin Glargine,Hum.Rec.Anlog 100 Unit/Ml 10 Ml Vial) 38 unit SUBCUT DAILY [facility] Last Admin: 11/07/23 07:36 Dose: Not Given Documented By: JUAN Non-Admin Reason: Patient Refused Insulin Human Lispro (Insulin Lispro 100 Unit/Ml 3 Ml Vial) 0 unit SUBCUT QIDACHS [facility]; Protocol Last Admin: 11/07/23 11:37 Dose: 2 unit Documented By: JUAN Levothyroxine Sodium 112 mcg/ (Levothyroxine Sodium 25 mcg) 137 mcg PO DAILY@0600 [facility] Last Admin: 11/07/23 05:56 Dose: 137 mcg Documented By: TIFFANY Lidocaine HCl (Lidocaine Hcl 1 % Mpf 2 Ml Vial) 0.5 ml SUBCUT MOWEFR@1645 [facility] Last Admin: 11/06/23 17:14 Dose: Not Given Documented By: KELLEN Non-Admin Reason: given in HD Losartan Potassium (Losartan Potassium 50 Mg Tablet) 50 mg PO DAILY [facility]; Protocol Last Admin: 11/07/23 07:37 Dose: 50 mg Documented By: JUAN Omeprazole (Omeprazole 20 Mg Ta.) 20 mg PO DAILY@0630 [facility] Last Admin: 11/07/23 05:56 Dose: 20 mg Documented By: TIFFANY Ondansetron HCl (Ondansetron Hcl 4 Mg/2 Ml Vial) 4 mg IVPUSH Q8H PRN PRN Reason: Nausea and Vomiting Last Admin: 11/05/23 09:11 Dose: 4 mg Documented By: JUANCARLOS Oxycodone HCl (Oxycodone Hcl Immed Release 5 Mg Tablet) 10 mg PO BID PRN PRN Reason: severe pain Last Admin: 11/07/23 07:37 Dose: 10 mg Documented By: JUAN Sevelamer Carbonate (Sevelamer Carbonate Tablet 800 Mg Tablet) 800 mg PO TID [facility] Last Admin: 11/07/23 07:36 Dose: 800 mg Documented By: JUAN Sodium Chloride (0.9 % Sodium Chloride Flush 3 Ml Syringe) 3 ml IVFLUSH QSHIFT [facility] Last Admin: 11/07/23 07:22 Dose: 3 ml Documented By: JUAN Labs 11/07/23 10:51 11/06/23 06:03 Labs: Laboratory Results - last 24 hr 11/06/23 11/06/23 11/07/23 16:32 20:17 07:27 POC Glucose 152 H 110 112 11/07/23 11:05 POC Glucose 166 H Microbiology Microbiology Results: Microbiology 11/04/23 18:30 Blood Culture - Preliminary Blood - Venous No growth after 48 hours. 11/04/23 18:30 Blood Culture - Preliminary Blood - Venous No growth after 48 hours. Assessment and Plan (1) Sepsis: Status: Acute (2) Multifocal pneumonia: Status: Acute Plan 68 years old male with PMH of DMII, ESRD on HD, HTN, anxiety admitted for further management of sepsis 1.Sepsis due to multifocal pneumonia with acute hypoxemic respiratory failure; sepsis resolved -IV ceftriaxone/doxycycline (3) -Viral resp panel negative -continue supplemental O2 to maintain oximetry >92% 2.Elevated BNP -good response to dialysis -follow clinically 3.Insulin dependent type 2 diabetes -acceptable control on current therapies -lispro correctional scale #ESRD on HD -MWF schedule, missed HD today -nephro consult -fluid restrictions, low K/phosph/Na diet per nephro PN -continue phosphorus binders AC #HTN -continue antihypertensives #Chronic pain -continue oxycodone #Mood disorder -continue home meds DVT prophyalxis- heparin Full code Pt requires ongoing inpt stayfor ongoing management sepsis due to pneumonia with acute hypoxemic respiratory failure requiring iv abx and monitoring as well as expert consultation and HD Quality Stroke Does the patient have a stroke diagnosis?: No VTE Prior VTE?: No VTE Risk Level:: Medical - moderate - high VTE Device Contraindication: Treatment Not Indicated VTE Drug Contraindication: N/A - Med Ordered
[2023-11-07 15:19] VITALS: BP 140/63; PULSE 64; RESP 20; TEMP 36.7; O2SAT 97
[2023-11-07 16:15] LABS: Glucose, Whole Blood 149 mg/dL (60-115)
[2023-11-07] MEDS: ondansetron HCL 4 MG/2 ML VIAL IVPUSH (16:38)
[2023-11-07] MEDS: cefTRIAXone sodium 1 GM in 0.9 % Sodium Chloride 50 ML IV (17:45)
[2023-11-07 19:16] VITALS: BP 142/73; PULSE 65; RESP 18; TEMP 36.3; O2SAT 100
[2023-11-07] MEDS: Acetaminophen 325 MG TABLET 650 MG PO (19:47)
[2023-11-07] MEDS: Doxycycline Monohydrate 100 MG CAPSULE PO (19:48)
[2023-11-07] MEDS: Docusate Sodium 100 MG CAPSULE 200 MG PO (19:48)
[2023-11-07 20:36] LABS: Glucose, Whole Blood 151 mg/dL (60-115)
[2023-11-07 20:43] VITALS: TEMP 36.9
[2023-11-08] VITALS: BP 156/77; PULSE 71; RESP 16; TEMP 36.2; O2SAT 95
[2023-11-08 03:25] VITALS: BP 128/75; PULSE 66; RESP 16; TEMP 36.6; O2SAT 95
[2023-11-08] MEDS: Levothyroxine Sodium 112 MCG, Levothyroxine Sodium 25 MCG 137 MCG PO (05:25)
[2023-11-08] MEDS: Omeprazole 20 MG CAPSULE.DR PO (05:26)
[2023-11-08] MEDS: Acetaminophen 325 MG TABLET 650 MG PO (05:29)
[2023-11-08] MEDS: oxyCODONE HCl Immed Release 5 MG TABLET 10 MG PO (05:31)
[2023-11-08 06:30] VITALS: RESP 16
--- NOTE | 2023-11-08 06:55 | PC.NURSE ---
Assumed care of patient at 19:15 (11/07). Pt is A&Ox4. Continues on 2L nc to maintain spo2. Denies sob. Breathing is even and unlabored without distress. Pt c/o nausea in evening though pt not yet due for prn zofran; Dr. Bobby notified, orders for 1x phenergan given with +effect, pt denies n/v. Generalized chronic pain, pt reports well managed with current ordered regimen. Handoff report given 06:45.
[2023-11-08 07:18] VITALS: BP 131/69; PULSE 66; RESP 20; TEMP 36.6; O2SAT 96
[2023-11-08] MEDS: Sevelamer Carbonate Tablet 800 MG TABLET PO (07:46)
[2023-11-08] MEDS: 0.9 % Sodium Chloride Flush 3 ML SYRINGE IVFLUSH (07:46)
[2023-11-08] MEDS: polyethylene glycoL 3350 17 GM POWD.PACK PO (07:46)
[2023-11-08] MEDS: Amphetamine Mixed Salts 20 MG TABLET PO (07:47)
[2023-11-08] MEDS: atenoloL 100 MG TABLET PO (07:47)
[2023-11-08] MEDS: Losartan Potassium 50 MG TABLET PO (07:47)
[2023-11-08] MEDS: amLODIPine Besylate 10 MG TABLET PO (07:47)
[2023-11-08] MEDS: Doxycycline Monohydrate 100 MG CAPSULE PO (07:47)
[2023-11-08 07:57] LABS: Glucose, Whole Blood 97 mg/dL (60-115)
[2023-11-08] MEDS: Heparin Sodium,Porcine 5,000 UNIT/ML VIAL 5000 UNIT SUBCUT (10:50)
[2023-11-08 11:08] LABS: Glucose, Whole Blood 142 mg/dL (60-115)
[2023-11-08] MEDS: ondansetron HCL 4 MG/2 ML VIAL IVPUSH (11:11)
[2023-11-08 12:09] VITALS: PULSE 67; PULSE 68; PULSE 71; PULSE 72; O2SAT 92; O2SAT 94; O2SAT 95; O2SAT 97
--- NOTE | 2023-11-08 12:41 | P.DS_ITS ---
DS: Providers Provider Date of Service: 11/08/23 Date of admission: 11/04/23 20:34 Date of discharge: 11/08/23 Primary care physician: Matias Tan MD Consults: 11/04/23 19:53 Consult to Nephrology Routine Consulting Provider: Ramo Allen Reason for consultation: ESRD on HD DS: Diagnosis Discharge Diagnosis (1) Sepsis: Status: Acute (2) Multifocal pneumonia: Status: Acute DS: Summary Hospital Course Hospital Course: 68 years old male with PMH of DMII, ESRD on HD, HTN, anxiety presented to the ED earlier today for evaluation of cough, sob, and vomiting ongoing for 2 days. He was recently admitted 10/29-10/31 due to pulmonary edema and sob requiring cpap at 6 hours of dialysis. he reports since discharge he has has multiple bouts of vomiting with PO intolerance as well as subjective fevers. Denies eating any bad foods, no one at home with similar symptoms. No recent travel. No st, congestion, abd pain, hematemesis, diarrhea, melena, hematochezia, wheezing, palpitations, lightheadedness, or chest pain. he is reporting chronic pain in the neck and right testicle which he states has been going on for months. He d oes make some urine and denies any other urinary complaints. He did miss dialysis due to his symptoms this morning. Per EMS, pt was satting in the 80s on arrival and placed on 4L. Pt was oxygen dependent during last admission but apparentlyl was maintaining O2 and did not require home O2 on discharge. On arrival to the ED, he was febrile to 101.4 and intermittently tachypneic. He has a leukocytosis of 18.6. Creat 11.02, bun 61. Na 130, K 4.2, Cl 90. Lactic acid 0.9. BNP 3132. Negative for COVID-19. CXR shows midl cardiomegaly with prominent vascularity likely mild congestion. No effusions or consolidations. Similar to prior exams. Hospital Course Patient admitted to general medical floor and started on ceftriaxone and doxycycline for pneumonia. He continued to do well in over the next 48 hours was able to be weaned off O2. He did have a brief period of desaturation for which an ambulatory O2 trial was ordered. During ambulation sats never went less than 90%. At this point in time he is medically acceptable for discharge to be DC to home and follow-up with PCP. Given his testicular pain a scrotal ultrasound was obtained which demonstrated findings suggestive of epididymo-orch itis. His pain has improved with doxycycline and he will complete this course at home Time Attestation Discharge coordination time: Greater than 30 minutes Quality: Safe Use of Opioids Does Pt have an Active Cancer Diagnosis on the Problem List?: No Quality: Stroke Does the patient have a stroke diagnosis?: No Physical Exam Vital Signs: Vital Signs: Last Vital Signs Temp 98 F 11/08/23 07:18 Pulse 66 11/08/23 07:18 Resp 20 11/08/23 07:18 BP 131/69 11/08/23 07:18 Pulse Ox 96 11/08/23 07:18 O2 Del Method Nasal Cannula 11/08/23 07:18 O2 Flow Rate 2 11/08/23 07:18 FiO2 45 11/05/23 07:12 Oxygen Flow Rate 4 11/04/23 15:43 BMI result Body Mass Index 29.4 Const: Other: Awake alert no acute distress Resp: Other: Clear but diminished. Coarse rhonchi at the bases Cardio: Other: No S4; positive S1-S2; no S3 murmurs rubs or gallops GI: Other: Soft nontender nondistended normoactive bowel sounds Extrem: Other: No edema bilaterally DS: Data Data Completed and Pending Completed studies during hospitalization [Text1]: Procedures Performance of Urinary Filtration, Intermittent, Less than 6 Hours Per Day (10/29/23) Labs on day of discharge: Laboratory Results - last 24 hr 11/07/23 11/07/23 11/08/23 16:09 20:23 07:20 POC Glucose 149 H 151 H 97 11/08/23 11:01 POC Glucose 142 H Preliminary micro results at discharge 11/04/23 18:30 Blood Culture - Preliminary Blood - Venous No growth after 48 hours. 11/04/23 18:30 Blood Culture - Preliminary Blood - Venous No growth after 48 hours. Discharge Plan Discharge Anticipated Discharge Date/Time: 11/08/23 12:38 Patient Disposition: Home, Self-Care Discharge Diagnosis: Multifocal pneumonia Referrals: Matias Tan MD [Primary Care Provider] - 1 Week Discharge Medications: New doxycycline monohydrate 100 mg Capsule 100 mg PO BID Qty: 20 0RF cefuroxime axetil 500 mg tablet 500 mg PO BID 10 Days Qty: 20 0RF Continued levothyroxine 137 mcg tablet 1 tab PO DAILY@0600 atenolol 100 mg tablet 1 tab PO DAILY (DME) FreeStyle Lite Strips Strip MISCELLANEOUS TID dextroamphetamine-amphetamine 20 mg tablet 1 tab PO DAILY (DME) pen needle, diabetic [BD Ultra-Fine Short Pen Needle] 31 gauge x 5/16 needle subcut DAILY clonazepam 0.5 mg tablet 0.5 mg PO TID PRN (Reason: Anxiety) amlodipine 5 mg tablet 10 mg PO DAILY insulin lispro [Humalog KwikPen Insulin] 100 unit/mL insulin pen 1 sliding scale dose subcut USEASDIRECTD Qty: 15 0RF prochlorperazine maleate 10 mg tablet 10 mg PO DAILY PRN (Reason: nausea) albuterol sulfate [Ventolin HFA] 90 mcg/actuation HFA aerosol inhaler 2 puff INHALATION Q4-6H PRN (Reason: Shortness Of Breath) oxycodone 5 mg tablet 10 mg PO BID PRN (Reason: severe pain) insulin glargine [Lantus Solostar U-100 Insulin] 100 unit/mL (3 mL) insulin pen 50 unit subcut DAILY PRN (Reason: Hyperglycemia) losartan 50 mg Tablet 50 mg PO DAILY Qty: 90 0RF Protocol: Hold for SBP< HOLD for SBP < : 90 omeprazole 20 mg Capsule,Delayed Release(Dr/Ec) 20 mg PO DAILY Qty: 90 0RF sevelamer carbonate 800 mg tablet 800 mg PO TID Qty: 90 2RF Rx Instructions: must administer with a meal/food Discharge Orders: Discharge Order (Routine); Ordered 11/08/23 Ordered By: Miah Perez Diet: Advance to usual diet Activity on Discharge: As tolerated Stand Alone Forms: Patient Portal Discharge page Care Plan Goals: Complete course of doxycycline and Ceftin both twice daily for 10 days Health Concerns: Follow-up with your PCP 1-2 weeks Plan of Treatment: Resume all other pre-hospital medications Assessment: See discharge summary
--- NOTE | 2023-11-08 12:57 | MHC.CM.PN ---
Addendum entered by Monica Bacon RN 11/08/23 13:02: This CM requested face to face from MD for home services. Addendum entered by Monica Bacon RN 11/08/23 12:59: IMM delivered Original Note: EMR reviewed. Patient is medically cleared for dc home w/ new [facility]. [facility] was made aware of dc. Patient will resume HD tomorrow at [facility] in [place]. Center is closed today, CM left message to inform of dc. DC summary faxed. Patient has own ride home. RN at bedside and aware of dc plan.
[2023-11-09 00:09] LABS: Strep Pneumo Ag urine Not Detected (Not Detected)
--- NOTE | 2023-11-09 10:50 | MHC.CM.PN ---
Corona message sent to Dr. Perez for request of F2F and amendment to d/c summary for home w/ services in order for pt to receive [facility]NA services from [facility]
--- NOTE | 2023-11-09 10:51 | W.MHC.F2F ---
Service Date Service Date: 11/09/23 Encounter Date of encounter: 11/08/23 Reasons for Services Signs and symptoms assessed: Hypoxic during admission Reason for penitentiary: teach disease management and other (Monitor respiratory status including saturation) Homebound: Leaving the home is medically contraindicated at this time without the asist of a device and/or another person due th the listed conditions above and below. Reason homebound: unsteady gait / fall risk Certification: Based on the above findings, I certify that this patient is confined to the home and needs intermittent penitentiary care, physical therapy and/or speech therapy, or continues to need occupational therapy. The patient is under my care, and I have initiated the establishment of the plan of care. The patient will be followed by a physician who will periodically review the plan of care. Time Spent With Patient Time: Total time managing care of this patient today ____ minutes.
[2023-11-11 02:44] LABS: Legionella Ag Urine Not Detected (Not Detected)
== END 2023-11-08 13:40 | disposition home or self-care (01) | DRG 871 ==
LOC: HO.ED 16:16 → HO.EDOVER 21:27 → HO.S3 11-05 00:34
PROVIDERS: Student in an Organized Health Care Education/Training Program; Admitting Provider Physician Assistant; Emergency Provider Internal Medicine; PCP Family Medicine; Visit Provider Hospitalist
DX: A41.9 Sepsis, unspecified organism (principal); J18.9 Pneumonia, unspecified organism; J96.01 Acute respiratory failure with hypoxia; N18.6 End stage renal disease; I12.0 Hypertensive chronic kidney disease with stage 5 chronic kidney disease or end stage renal disease; N25.81 Secondary hyperparathyroidism of renal origin; G89.29 Other chronic pain; Z99.2 Dependence on renal dialysis; E11.22 Type 2 diabetes mellitus with diabetic chronic kidney disease; D63.1 Anemia in chronic kidney disease; E11.65 Type 2 diabetes mellitus with hyperglycemia; Z20.822 Contact with and (suspected) exposure to COVID-19; Z91.158 Patient's noncompliance with renal dialysis for other reason; Z79.4 Long term (current) use of insulin; Z79.890 Hormone replacement therapy; Z79.899 Other long term (current) drug therapy
CPT/HCPCS: 36415; 71045; 76870; 80048; 80053; 81001; 82803; 82947; 83605; 83690; 83880; 85025; 87040; 87449; 87633; 87635; 87899; 90999; 92950; 93005; 93306; 94660; 99285; J0696; J1644; J1940; J2405; J2550; J3371; Q9957

== ENCOUNTER → 2023-11-04 16:57 | Outpatient (BNV) | payer MEDICARE, SELFPAY | PROVIDERS: Admitting Provider Physician Assistant; Emergency Provider Internal Medicine; PCP Family Medicine; Visit Provider Internal Medicine | DX: I45.81 Long QT syndrome (principal) | CPT/HCPCS: 93010 ==

== ENCOUNTER 2023-11-04 20:34 | Outpatient (BNV) | payer MEDICARE, SELFPAY | END 2023-11-05 05:21 | PROVIDERS: Admitting Provider Physician Assistant; Emergency Provider Internal Medicine; PCP Family Medicine; Visit Provider Internal Medicine | DX: I34.0 Nonrheumatic mitral (valve) insufficiency (principal) | CPT/HCPCS: 93010; 93306 ==

== ENCOUNTER → 2023-11-04 20:34 | Outpatient (BNV) | payer MEDICARE, SELFPAY | PROVIDERS: Admitting Provider Physician Assistant; Emergency Provider Internal Medicine; PCP Family Medicine; Visit Provider Physician Assistant | DX: A41.9 Sepsis, unspecified organism (principal); N18.6 End stage renal disease; Z99.2 Dependence on renal dialysis; J18.9 Pneumonia, unspecified organism | CPT/HCPCS: 99223; 99232; 99233; 99239; G0180 ==

== ENCOUNTER → 2023-11-04 20:34 | Outpatient (BNV) | payer MEDICARE, SELFPAY | PROVIDERS: Admitting Provider Physician Assistant; Emergency Provider Internal Medicine; PCP Family Medicine; Visit Provider Internal Medicine Nephrology | DX: N18.6 End stage renal disease (principal); Z99.2 Dependence on renal dialysis | CPT/HCPCS: 99223; 99232 ==

== ENCOUNTER 2024-02-21 17:46 | Inpatient (IN) | payer MEDICARE, SELFPAY ==
--- NOTE | ~2024-02-21 | XR_ITS ---
EXAMINATION: XR CHEST CLINICAL INFORMATION: Shortness of breath COMPARISON: 11/05/2023 TECHNIQUE: 2 views of the chest were obtained. FINDINGS: Heart size is normal. Compared to the prior study, there has been clearing of the bilateral consolidations seen. Mild peribronchial thickening and some mild perihilar streaky density. No focal consolidations or pleural effusions. XR/XR chest 2V IMPRESSION: Mild peribronchial thickening and perihilar streaky density. No focal consolidations. Clearing of previously seen pneumonia.
--- NOTE | ~2024-02-21 | XR_ITS ---
EXAMINATION: XR CHEST CLINICAL INFORMATION: History of shortness of breath. Evaluate for pneumonia. COMPARISON: CXR from 11/05/2023 and 02/21/2024. TECHNIQUE: Frontal view of the chest was obtained. FINDINGS: There are EKG wires overlying the chest. Lungs are well expanded. There appears to be a small airspace opacity in the right upper lobe projecting over the posterior right fifth rib. No pleural effusion or pneumothorax. Cardiac silhouette is in the normal size range. The visualized bones are intact. XR/XR chest 1V IMPRESSION: There appears to be a small airspace opacity in the right upper lobe. If the patient has cough, fever and/or leukocytosis, then a mild pneumonia may be considered.
[2024-02-21 17:49] VITALS: BP 167/89; PULSE 81; RESP 20; TEMP 36.2; O2SAT 96; BMI 25.9
--- NOTE | 2024-02-21 18:03 | ECG_ITS ---
Test Reason : DYSPNEA Blood Pressure : / mmHG Vent. Rate : 081 BPM Atrial Rate : 081 BPM P-R Int : 154 ms QRS Dur : 082 ms QT Int : 406 ms P-R-T Axes : 022 -02 046 degrees QTc Int : 471 ms Normal sinus rhythm Normal ECG When compared with ECG of 05-NOV-2023 05:21, No significant change was found Referred By: Adriana Coombs Electronically Signed By:Satinder Lyn
--- NOTE | 2024-02-21 18:20 | PC.NURSE ---
pt placed on 2lpm NC in triage due to spo2 91% RA. Jim mickey aware and charge entry specialist aware. orders placed and pt back to waiting room.
[2024-02-21 18:37] LABS: MANUAL DIFF FLAG NO
[2024-02-21 18:52] LABS: Basophils Absolute Auto 0.1 X10*3/uL (0.0-0.2); Basophils Percent Auto 0.6 % (0-2); Eosinophils Absolute Auto 0.9 X10*3/uL (0.0-0.4); Eosinophils Percent Auto 4.8 % (0-4); Hemoglobin 11.6 g/dl (14.0-18.0); Imm Gran Abs Auto 0.14 X10*3/uL (0.00-0.03); Imm Gran Pct Auto 0.8 % (0.0-0.4); Lymphocytes Absolute Auto 1.4 X10*3/uL (1.2-4.9); Lymphocytes Percent Auto 7.8 % (20-40); Mean Corpuscular HGB Conc 34.1 g/dl (31.0-36.0); Mean Corpuscular Hemoglobin 31.2 pg (27.0-33.0); Mean Corpuscular Volume 91.4 fL (80.0-98.0); Mean Platelet Volume 10.1 fL (9.4-12.4); Monocytes Absolute Auto 0.8 X10*3/uL (0.1-1.2); Monocytes Percent Auto 4.3 % (2-11); Neutrophils Absolute Auto 14.4 x10*3/uL (2.0-8.3); Neutrophils Percent Auto 81.7 % (45-73); Platelet Count 221 X10*3/uL (160-400); Red Blood Count 3.72 X10*6/uL (4.60-5.80); Red Cell Distribution Width 14.8 % (11.0-16.0); White Blood Count 17.6 X10*3/uL (4.8-10.8)
[2024-02-21 18:59] LABS: Troponin-I High Sensitivity 7.9 ng/L (<3.5-35.0)
[2024-02-21 19:04] LABS: Alanine Aminotransferase 9 U/L (0-40); Albumin Level 4.4 g/dL (3.5-5.0); Alkaline Phosphatase 67 U/L (39-117); Anion Gap 25 (12-20); Aspartate Amino Transferase 16 U/L (5-37); Bilirubin Total 1.1 mg/dL (0.0-1.0); Blood Urea Nitrogen 46 mg/dL (9-16); Calcium 9.5 mg/dL (8.4-10.2); Carbon Dioxide 23 mmol/L (22-29); Chloride 96 mmol/L (96-108); Creatinine Clr Calc Pharmacy 7.4; Estimated Glomerular Filt Rate 6; Glucose Random 108 mg/dL (60-115); Magnesium 1.8 mg/dL (1.6-2.6); Potassium 5.2 mmol/L (3.3-5.1); Sodium 139 mmol/L (135-145); Total Protein 7.7 g/dL (6.5-8.0)
[2024-02-21 19:14] LABS: B Type Natriuretic Peptide 2377 pg/mL (<100)
[2024-02-21 19:19] LABS: Influenza A PCR NEGATIVE (Negative); Influenza B PCR NEGATIVE (Negative); Resp Syncy Virus RNA Qual PCR NEGATIVE (Negative); SARS COV2 PCR INHOUSE NEGATIVE (Negative)
--- NOTE | 2024-02-21 19:37 | PC.NURSE ---
Assumed care of the pt at 1900. Pt is resting in bed at this time with O2. Pt complaining of pain in his upper abdomen that causes nausea on palpation. Pt states he feels fluids sloshing around in his stomach and he is having some trouble breathing. Pt desats when he starts speaking but O2 increases when he is at rest with no exertion. Labs, EKG, Chest x-ray completed. Pt is waiting ED provider at this time.
[2024-02-21 20:00] VITALS: PULSE 82; RESP 24; O2SAT 84
--- NOTE | 2024-02-21 20:04 | ED.SOB ---
HPI - SOB/Dyspnea General Chief Complaint: Dyspnea Stated Complaint: sob/panting Time Seen by Provider: 02/21/24 19:59 Source: patient and family () Mode of arrival: ambulatory Limitations: no limitations History of Present Illness HPI Narrative: 69-year-old male with a history of end-stage renal disease dialyzed on Thursday, Thursday and Thursday, diabetes, hypertension who presents emergency department for evaluation of shortness of breath and bilateral chest pain. Patient believes that he may be fluid overloaded in his and this is the cause of his shortness of breath. He states that he has severe heartburn and no medications have helped him. He states that he mixes sodium bicarb with water any drinks this multiple times a week in order to relieve his heartburn pain. He also states that he has not paid attention to his diet or fluid intake. Patient also states that he has bilateral rib cage pain which she describes as a sharp pain which is worse with breathing and worse with coughing. This started on 1 day prior to arrival. He states that he has had similar pain in the past and he believes that he gets this when he is fluid overloaded and having difficulty breathing. The patient is feeling short of breath and has dyspnea on exertion. He denied fever but states he has had chills. He has had a cough which is nonproductive. He has nausea with no vomiting. Related Data Home Medications ?Medication ?Instructions ?Recorded ?Confirmed atenolol 100 mg tablet 1 tab PO DAILY 07/11/21 11/04/23 blood sugar diagnostic (FreeStyle 07/11/21 07/11/21 Lite Strips) dextroamphetamine-amphetamine 20 1 tab PO DAILY 07/11/21 11/04/23 mg tablet levothyroxine 137 mcg tablet 1 tab PO DAILY@0600 07/11/21 11/04/23 pen needle, diabetic 31 gauge x 07/11/21 07/11/21/16 (BD Ultra-Fine Short Pen Needle) amlodipine 5 mg tablet 10 mg PO DAILY 09/03/23 11/04/23 clonazepam 0.5 mg tablet 0.5 mg PO TID PRN Anxiety 09/03/23 11/04/23 albuterol sulfate 90 mcg/actuation 2 puff inhalation Q4-6H PRN 10/29/23 11/04/23 aerosol inhaler (Ventolin HFA) Shortness Of Breath insulin glargine 100 unit/mL (3 50 unit subcut DAILY PRN 10/29/23 11/04/23 mL) subcutaneous pen (Lantus Hyperglycemia Solostar U-100 Insulin) oxycodone 5 mg tablet 10 mg PO BID PRN severe pain 10/29/23 11/04/23 prochlorperazine maleate 10 mg 10 mg PO DAILY PRN nausea 10/29/23 11/04/23 tablet Previous Rx's ?Medication ?Instructions ?Recorded insulin lispro 100 unit/mL 1 sliding scale dose subcut 09/05/23 subcutaneous pen (Humalog KwikPen USEASDIRECTD #15 mL (U-100) Insulin) losartan 50 mg tablet 50 mg PO DAILY #90 tabs 10/31/23 omeprazole 20 mg capsule,delayed 20 mg PO DAILY #90 caps 10/31/23 release sevelamer carbonate 800 mg tablet 800 mg PO TID #90 tabs 10/31/23 cefuroxime axetil 500 mg tablet 500 mg PO BID 10 days #20 tabs 11/08/23 doxycycline monohydrate 100 mg 100 mg PO BID #20 caps 11/08/23 capsule Allergies Allergy/AdvReac Type Severity Reaction Status Date / Time Penicillins [PENICILLINS] Allergy Unknown RASH Verified 02/21/24 17:57 tramadol [From ULTRAM] Allergy Unknown RASH Verified 02/21/24 17:57 trazodone [TRAZODONE] Allergy Unknown PRIAPISM Verified 02/21/24 17:57 risperidone [RISPERIDONE] AdvReac Severe dizzy, EPS Verified 02/21/24 17:57 Review of Systems Review of Systems: Yes all other systems are reviewed and are negative [facility] Past Medical History [facility] Narrative: Social history: He denies tobacco, alcohol and drug use. He is and his , Kyara is here in the emergency department with him. Medical History ESRD needing dialysis DONIS (acute kidney injury) End stage renal disease on dialysis Diabetes Kidney failure HTN (hypertension) Social History Social History Household Members: Spouse Housing: House Do you presently have visiting nurse or other home services: No Alcohol intake: never Comment: HIGH FALL[place] RISK IN PLACE FOR O2 AND WEAKNESS REPORTED S/P HD TODAY Patient Tobacco Use Status: Never used Tobacco Smoked in Last 30 Days: No Use of substances other than those prescribed or required for medical reasons: No Advance Directives: Yes Advance Directives on File: Yes Advance Directives Date on File: 09/07/23 Do you have a plan to hurt others: No Plan service: No Physical Exam Vital Signs: Vital Signs: Last Vital Signs Temp 97.1 F 02/21/24 17:49 Pulse 82 02/21/24 20:00 Resp 24 H 02/21/24 20:00 BP 167/89 H 02/21/24 17:49 Pulse Ox 84 L 02/21/24 20:00 O2 Del Method Nasal Cannula 02/21/24 20:00 O2 Flow Rate 4 02/21/24 20:00 Oxygen Flow Rate 2 02/21/24 17:49 BMI result Body Mass Index 25.9 Vital signs revealed an elevated blood pressure of 167/89 and an O2 saturation of 84% on 4 L via nasal cannula-consistent with hypoxia Exam: General: Awake, in [id number] distress secondary to his bilateral chest pain Head: Normocephalic, atraumatic EENT: PERRL, Lids normal, sclera normal, conjunctiva normal, nose normal , ears normal, throat without erythema or exudates Neck: Supple, no adenopathy Lung: Breath sounds symmetric bilaterally, rales at the bases, no wheezing or rhonchi i Chest: symmetric movement, nontender Heart: regular rate and rhythm, normal S1, S2 no murmurs or rubs Abdomen: soft, non-tender, nondistended, normal bowel sounds Back: no vertebral tenderness, no CVAT Extremities: no deformities, moves all extremities symmetrically Neuro: Awake, alert, oriented, normal speech, cranial nerves intact, moves all extremities symmetrically Psych: Pleasant, cooperative Medications Administered Discontinued Medications Generic Name Dose Route Start Last Admin Trade Name Freq PRN Reason Stop Dose Admin Furosemide 80 mg 02/21/24 20:21 02/21/24 20:45 Furosemide 100 Mg/10 Ml Vial IVPUSH 02/21/24 20:22 80 mg ONCE ONE Administration Protocol Morphine Sulfate 4 mg 02/21/24 20:21 02/21/24 20:45 Morphine Sulfate 4 Mg/Ml Cartridge IVPUSH 02/21/24 20:22 4 mg ONCE STA Administration Protocol Ondansetron HCl 4 mg 02/21/24 20:21 02/21/24 20:45 Ondansetron Hcl 4 Mg/2 Ml Vial IVPUSH 02/21/24 20:22 4 mg ONCE ONE Administration Medical Decision Making Medical Decision Making [facility] Narrative: 69-year-old male with a history of end-stage renal disease dialyzed on Thursday, Thursday and Thursday, diabetes, hypertension who presents emergency department for evaluation of shortness of breath and bilateral chest pain x2 days. Patient has had similar presentations in the past secondary to being fluid overloaded in the past over the weekends before his Thursday dialysis. Patient has been taking baking soda (sodium bicarb) mixed with 1 frequently for his heartburn. He states he has had similar chest pain in the past when he has been fluid overloaded. Vital signs revealed that the patient was hypoxic with an O2 saturation of 84% on 4 L via nasal cannula. Lung exam did reveal rales at the bases. Differential diagnosis: ?Includes but is not limited to pulmonary edema, fluid overload, anemia, electrolyte abnormalities Following evaluation was ordered: CBC, CMP, BNP, magnesium, troponin, EKG, chest x-ray Patient was initially treated with the following: Lasix 80 mg IV, morphine 4 mg IV, Zofran 4 mg IV Course: 21:04 My interpretation patient's laboratory evaluation as follows: Elevated WBC 03106. Anemia with an H&H of 11 and 34-this is chronic. Elevated BUN and creatinine of 46 and 8.67-this is chronic. BNP is elevated 2377-she has had similar elevations in the past. Twelve EKG revealed no evidence of myocardial ischemia or infarction. My interpretation patient's chest x-ray is consistent with pulmonary edema. I did discuss the patient's presentation with the covering auto damage appraiser, Dr. Allen. He recommended admission to the hospitalist service and he will get the patient dialyzed this evening. I did discuss the patient's presentation over tiger text with the covering hospitalist, Dr. Medina the patient will be admitted for further management. Admission/Observation Consideration of admission/observation: Escalation of care including admission/observation considered Consult Healthcare Provider Management of the patient was discussed with: Hospitalist (Dr. Medina) and Digital Marketing Project Manager (Hair Rooting Machine Operator, Dr. Allen) Lab Data [facility] Lab Attestation statement: I reviewed the patient's lab results. 02/21/24 18:32 02/21/24 18:32 Labs: Lab Results 02/21/24 Range/Units 18:32 WBC 17.6 H (4.8-10.8) X10*3/uL RBC 3.72 L (4.60-5.80) X10*6/uL Hgb 11.6 L (14.0-18.0) g/dl Hct 34.0 L (42.0-52.0) % MCV 91.4 (80.0-98.0) fL MCH 31.2 (27.0-33.0) pg MCHC 34.1 (31.0-36.0) g/dl RDW 14.8 (11.0-16.0) % Plt Count 221 (160-400) X10*3/uL MPV 10.1 (9.4-12.4) fL Immature Gran % (Auto) 0.8 H (0.0-0.4) % Neut % (Auto) 81.7 H (45-73) % Lymph % (Auto) 7.8 L (20-40) % [place] % (Auto) 4.3 (2-11) % Eos % (Auto) 4.8 H (0-4) % Baso % (Auto) 0.6 (0-2) % Lymph # (Auto) 1.4 (1.2-4.9) X10*3/uL [place] # (Auto) 0.8 (0.1-1.2) X10*3/uL Eos # (Auto) 0.9 H (0.0-0.4) X10*3/uL Baso # (Auto) 0.1 (0.0-0.2) X10*3/uL Abs Immat Gran (auto) 0.14 H (0.00-0.03) X10*3/uL Absolute Neuts (auto) 14.4 H (2.0-8.3) x10*3/uL Absolute Nucleated RBC 0.000 (0.0-0.012) X10*3/uL Nucleated RBC % (auto) 0.0 (0.0-0.2) /100WBC Sodium 139 (135-145) mmol/L Potassium 5.2 H D (3.3-5.1) mmol/L Chloride 96 (96-108) mmol/L Carbon Dioxide 23 (22-29) mmol/L Anion Gap 25 H (12-20) BUN 46 H (9-16) mg/dL Creatinine 8.67 H* (0.5-1.4) mg/dL Estim Creat Clear Calc 7.4 Estimated GFR 6 Random Glucose 108 (60-115) mg/dL Calcium 9.5 D (8.4-10.2) mg/dL Magnesium 1.8 (1.6-2.6) mg/dL Total Bilirubin 1.1 H (0.0-1.0) mg/dL AST 16 (5-37) U/L ALT 9 (0-40) U/L Alkaline Phosphatase 67 (39-117) U/L Troponin I High Sens 7.9 (<3.5-35.0) ng/L B-Natriuretic Peptide 2377 H (<100) pg/mL Total Protein 7.7 (6.5-8.0) g/dL Albumin 4.4 (3.5-5.0) g/dL Influenza Type A (PCR) NEGATIVE (Negative) Influenza Type B (PCR) NEGATIVE (Negative) RSV RNA Qual (PCR) NEGATIVE (Negative) SARS-CoV-2 RNA (RT-PCR) NEGATIVE (Negative) Independent Interpretation I performed an independent interpretation of an: EKG Interpretation: My interpretation patient's 12 EKG done at 18:09 hours is as follows: Normal sinus rhythm rate of 81, normal MO interval, QRS duration and QTC interval, no ST segment elevation, no ST segment depression, no PACs, no PVCs My independent interpretation of the patient's two view chest x-ray: Increased interstitial markings consistent with pulmonary edema. No focal infiltrates. Radiology Impression Discussion of test interpretation with radiology: I have reviewed the radiologist's reading. Radiologist Impression: XR chest 2V IMPRESSION: Mild peribronchial thickening and perihilar streaky density. No focal consolidations. Clearing of previously seen pneumonia. Dictated By: Aravind Tobin MD Independent Historian Clinical information obtained from an independent historian. History obtained from or confirmed by: Spouse External Record Review External record reviewed: Inpatient record Chronic Conditions Patient?s care impacted by: Other (End-stage renal disease) Critical Care Time Critical Care Time Critical Care Time: Yes Total Critical Care Time: 50 Attestation: Critical Care: The patient was critically ill with a high probability of imminent or life threatening deterioration. I spent greater than 30 minutes of discontinuous time evaluating the patient,delivering critical care at the bedside, discussing and evaluating pertinent data with consultants. Critical care time does not include time spent performing separately billable procedures or teaching. Total time spent performing critical care was 50 minutes. Discharge Plan Discharge Clinical Impression: Pulmonary edema, Fluid overload Patient Disposition: Admitted As Inpatient Print Language: Bulgarian
[2024-02-21] MEDS: Morphine Sulfate 4 MG/ML CARTRIDGE IVPUSH (20:45)
[2024-02-21] MEDS: Furosemide 100 MG/10 ML VIAL 80 MG IVPUSH (20:45)
[2024-02-21] MEDS: ondansetron HCL 4 MG/2 ML VIAL IVPUSH (20:45)
--- NOTE | 2024-02-21 20:47 | PM.EVENT ---
Event Note Date of Service: 02/21/24 Event Note: ER Attending consulted re this ESRD patient who is presenting with hypervolemia. Usually gets HD on MWF. Discussed with ER MD. Ordered UF mignon( HD RN Rain logan). Orders in system. Regular HD ordered for tomorrow. Ramo Allen MD
[2024-02-21 21:06] VITALS: BP 154/77; PULSE 82; RESP 22; O2SAT 86
[2024-02-21] MEDS: Nitroglycerin 2 % Oint 1 GM Packet 1 INCH TRANSDERMA (21:30)
--- NOTE | 2024-02-21 21:50 | PC.NURSE ---
Pt is off unit for dialysis
--- NOTE | 2024-02-21 22:11 | P.HPHOSP_ITS ---
History of Present Illness Date of Service: 02/21/24 Attending physician on admission: Nohemy Koo Chief Complaint: Shortness on breath mEma Wick is a 69 years old man with past medical history significant for ESRD on HD, chronic anemia, essential hypertension, hypothyroidism and type 2 diabetes mellitus on insulin presents to the emergency department complaining of worsening shortness of breath since Thursday. He did not report chest pain or cough. He does complain of thoracic pain and nausea. Does report she was brought no fever. He has been experiencing heartburn and has been taking sodium bicarbonate with water. Denied abdominal pain or vomiting. In the ED, he was found to have tachypnea and hypoxia, 84% on room air. He is currently on OxyMask 15 L/min. Blood workup was remarkable for leukocytosis of 17.6. Hemoglobin is 11.6 (around baseline). There is mild hyperkalemia of 5.2. Creatinine is 8.67 and BUN 46. Troponin is 7.9. LFTs essentially normal. In my opinion CXR is consistent with pulmonary edema. ECG showed normal sinus rhythm with a heart rate 81 beats per minutes. No acute ischemic changes. ED tx: Zofran 4 mg IV, morphine 4 mg IV, Lasix 80 mg IV, lidocaine 0.5 mL and Nitro-Bid 1 in transdermal. Review of Systems 2 Review of Systems: All 12 systems were reviewed and normal except as noted in HPI. [facility] Medical History ESRD needing dialysis DONIS (acute kidney injury) End stage renal disease on dialysis Diabetes Kidney failure HTN (hypertension) Social History Household Members: Spouse Housing: House Do you presently have visiting nurse or other home services: No Alcohol intake: never Comment: HIGH F[place] RISK IN PLACE FOR O2 AND WEAKNESS REPORTED S/P HD TODAY Patient Tobacco Use Status: Never used Tobacco Smoked in Last 30 Days: No Use of substances other than those prescribed or required for medical reasons: No Advance Directives: Yes Advance Directives on File: Yes Advance Directives Date on File: 09/07/23 Do you have a plan to hurt others: No Plan service: No Meds Allergies Allergy/AdvReac Type Severity Reaction Status Date / Time Penicillins [PENICILLINS] Allergy Unknown RASH Verified 02/21/24 17:57 tramadol [From ULTRAM] Allergy Unknown RASH Verified 02/21/24 17:57 trazodone [TRAZODONE] Allergy Unknown PRIAPISM Verified 02/21/24 17:57 risperidone [RISPERIDONE] AdvReac Severe dizzy, EPS Verified 02/21/24 17:57 Active Medications: Current Medications Heparin Sodium (Porcine) (Heparin Sodium,Porcine 5,000 Unit/Ml Vial) 5,000 unit SUBCUT Q8H [facility] Lidocaine HCl (Lidocaine Hcl 1 % Mpf 2 Ml Vial) 0.5 ml SUBCUT MOWEFR@1645 [facility] Sodium Chloride (0.9 % Sodium Chloride Flush 3 Ml Syringe) 3 ml IVFLUSH QSHIFT [facility] Home Medications ?Medication ?Instructions ?Recorded ?Confirmed ?Last Taken ?Type atenolol 100 mg tablet 1 tab PO DAILY 07/11/21 11/04/23 11/04/23 History blood sugar diagnostic (FreeStyle 07/11/21 07/11/21 Unknown History Lite Strips) dextroamphetamine-amphetamine 20 1 tab PO DAILY 07/11/21 11/04/23 11/04/23 History mg tablet levothyroxine 137 mcg tablet 1 tab PO DAILY@0600 07/11/21 11/04/23 Unknown History pen needle, diabetic 31 gauge x 07/11/21 07/11/21 Unknown History 03/03 (BD Ultra-Fine Short Pen Needle) amlodipine 5 mg tablet 10 mg PO DAILY 09/03/23 11/04/23 11/04/23 History clonazepam 0.5 mg tablet 0.5 mg PO TID PRN Anxiety 09/03/23 11/04/23 11/04/23 History albuterol sulfate 90 mcg/actuation 2 puff inhalation Q4-6H PRN 10/29/23 11/04/23 Unknown History aerosol inhaler (Ventolin HFA) Shortness Of Breath insulin glargine 100 unit/mL (3 50 unit subcut DAILY PRN 10/29/23 11/04/23 11/04/23 History mL) subcutaneous pen (Lantus Hyperglycemia Solostar U-100 Insulin) oxycodone 5 mg tablet 10 mg PO BID PRN severe pain 10/29/23 11/04/23 Unknown History prochlorperazine maleate 10 mg 10 mg PO DAILY PRN nausea 10/29/23 11/04/23 Unknown History tablet Physical Exam 2 Vital Signs and Narrative: Vital Signs: Last Vital Signs Temp 97.1 F 02/21/24 17:49 Pulse 82 02/21/24 21:06 Resp 22 H 02/21/24 21:06 BP 154/77 H 02/21/24 21:06 Pulse Ox 86 L 02/21/24 21:06 O2 Del Method Nasal Cannula 02/21/24 21:06 O2 Flow Rate 4 02/21/24 21:06 Oxygen Flow Rate 2 02/21/24 17:49 BMI result Body Mass Index 25.9 Constitutional - Awake and Alert, looks uncomfortable due to shortness of breath. Speaking in short sentences. OxyMask in place. Obese. HEENT - Normocephalic. Atraumatic. Pupils equally round. Normal sclerae. Heart - RRR, no murmurs. Lungs - Normal lung expansion, Normal respiratory effort, No respiratory distress. Bilateral crackles. No wheezing. No rhonchi. Abdomen - NT / ND; +BS; No rebound or guarding Extremities - no calf tenderness bilaterally, no swelling Musculoskeletal - Normal inspection, normal ROM Skin - Warm/Dry Neurological - Alert & oriented x3. No focal weakness grossly noted. Normal speech. Psychological - Appropriate affect Results Labs 02/21/24 18:32 02/21/24 18:32 Labs: Laboratory Results - last 24 hr 02/21/24 18:32 MCV 91.4 MCH 31.2 MCHC 34.1 RDW 14.8 Plt Count 221 MPV 10.1 Immature Gran % (Auto) 0.8 H Neut % (Auto) 81.7 H Lymph % (Auto) 7.8 L [place] % (Auto) 4.3 Eos % (Auto) 4.8 H Baso % (Auto) 0.6 Lymph # (Auto) 1.4 [place] # (Auto) 0.8 Eos # (Auto) 0.9 H Baso # (Auto) 0.1 Abs Immat Gran (auto) 0.14 H Absolute Neuts (auto) 14.4 H Absolute Nucleated RBC 0.000 Nucleated RBC % (auto) 0.0 Anion Gap 25 H Estim Creat Clear Calc 7.4 Estimated GFR 6 Random Glucose 108 Calcium 9.5 D Magnesium 1.8 Total Bilirubin 1.1 H AST 16 ALT 9 Alkaline Phosphatase 67 Troponin I High Sens 7.9 B-Natriuretic Peptide 2377 H Total Protein 7.7 Albumin 4.4 Influenza Type A (PCR) NEGATIVE Influenza Type B (PCR) NEGATIVE RSV RNA Qual (PCR) NEGATIVE SARS-CoV-2 RNA (RT-PCR) NEGATIVE Imaging Radiologist's Impressions: Impressions Chest X-Ray 02/21/24 18:39 IMPRESSION: Mild peribronchial thickening and perihilar streaky density. No focal consolidations. Clearing of previously seen pneumonia. Assessment and Plan (1) Fluid overload: Qualifiers: Hypervolemia type: other Qualified Code(s): E87.79 - Other fluid overload Status: Acute (2) Hypoxic respiratory failure: Qualifiers: Chronicity: acute Qualified Code(s): J96.01 - Acute respiratory failure with hypoxia Status: Acute Plan Emma Wick is a 69 years old man with PMHx admitted with: * Hypoxic respiratory failure secondary to fluid overload; acute. Admit to hospitalist service. Avoid use of bicarb due to high Na+ content. Emergent hemodialysis (Dr. Allen contacted by ED). Low-salt diet. Continue supplemental oxygen to keep O2 sats > 90%. * ESRD on HD. Continue inpatient HD. Nephrology consult. Continuous phosphate binders. Low phosphate and a low-potassium diet * Type 2 diabetes mellitus. Blood glucose checks before meals at bedtime. Diabetic diet. Continue Lantus and insulin sliding scale. * Essential hypertension. Continue home meds. * Hypothyroidism. Continue levothyroxine. * Chronic pain. Continue oxycodone. * Mood disorder. Continue home meds. * Chronic anemia. Continue to monitor. * GERD. PPI. DVT prophylaxis: Heparin Code status: Full Patient will need hospitalization for at least 2 midnights for hypoxic respiratory failure due to fluid overload treatment with dialysis, continuous cardiac monitoring and vital signs. Quality Stroke Does the patient have a stroke diagnosis?: No VTE Prior VTE?: No VTE Risk Level:: Medical - moderate - high VTE Device Contraindication: Treatment Not Indicated VTE Drug Contraindication: N/A - Med Ordered
[2024-02-22] VITALS (9 sets, daily range): BP systolic 137–196; BP diastolic 69–93; PULSE 70–81; RESP 20; TEMP 36.4–37.6; O2SAT 90–98; BMI 27.4
[2024-02-22] MEDS: 0.9 % Sodium Chloride Flush 3 ML SYRINGE IVFLUSH ×4 (01:25→20:51)
[2024-02-22 07:09] LABS: MANUAL DIFF FLAG NO
[2024-02-22 07:26] LABS: Basophils Absolute Auto 0.1 X10*3/uL (0.0-0.2); Basophils Percent Auto 0.7 % (0-2); Eosinophils Absolute Auto 0.5 X10*3/uL (0.0-0.4); Eosinophils Percent Auto 3.4 % (0-4); Hematocrit 31.1 % (42.0-52.0); Hemoglobin 10.5 g/dl (14.0-18.0); Imm Gran Abs Auto 0.07 X10*3/uL (0.00-0.03); Imm Gran Pct Auto 0.5 % (0.0-0.4); Lymphocytes Absolute Auto 1.5 X10*3/uL (1.2-4.9); Lymphocytes Percent Auto 10.2 % (20-40); Mean Corpuscular HGB Conc 33.8 g/dl (31.0-36.0); Mean Corpuscular Volume 91.7 fL (80.0-98.0); Mean Platelet Volume 10.6 fL (9.4-12.4); Monocytes Absolute Auto 0.7 X10*3/uL (0.1-1.2); Neutrophils Absolute Auto 11.5 x10*3/uL (2.0-8.3); Neutrophils Percent Auto 80.2 % (45-73); Platelet Count 204 X10*3/uL (160-400); Red Blood Count 3.39 X10*6/uL (4.60-5.80); Red Cell Distribution Width 14.7 % (11.0-16.0); White Blood Count 14.3 X10*3/uL (4.8-10.8)
[2024-02-22] MEDS: oxyCODONE HCl Immed Release 5 MG TABLET PO ×2 (07:41→12:10)
[2024-02-22 07:48] LABS: Carbon Dioxide 27 mmol/L (22-29); Chloride 96 mmol/L (96-108); Potassium 5.2 mmol/L (3.3-5.1); Sodium 139 mmol/L (135-145)
[2024-02-22 07:49] LABS: Alanine Aminotransferase 7 U/L (0-40); Albumin Level 3.8 g/dL (3.5-5.0); Alkaline Phosphatase 60 U/L (39-117); Anion Gap 21 (12-20); Aspartate Amino Transferase 11 U/L (5-37); Bilirubin Total 1.1 mg/dL (0.0-1.0); Blood Urea Nitrogen 57 mg/dL (9-16); Glucose Random 102 mg/dL (60-115); Total Protein 6.7 g/dL (6.5-8.0)
[2024-02-22 08:01] LABS: Glucose, Whole Blood 106 mg/dL (60-115)
[2024-02-22 08:28] LABS: Creatinine Clr Calc Pharmacy 6.6; Estimated Glomerular Filt Rate 5
--- NOTE | 2024-02-22 08:34 | MHC.CM.PN ---
CM met with Patient at bedside and addressed IMM with him, providing Patient with the original and a copy has been placed on the chart. Patient lives in a house with his /HCP/Kyara and he uses a cane at times to assist with mobility. Home/? of new O2 is the tentative plan and CM has initiated and will follow for dc planning. PCP is Dr. Matias Tan. Patient attends HD Q M/W/F @ [facility] in [place].
[2024-02-22 09:01] LABS: Procalcitonin 0.33 ng/mL
--- NOTE | 2024-02-22 12:40 | P.CONNP_ITS ---
History of Present Illness Reason for Consult Consult date: 02/23/24 Chief Complaint Chief complaint: Hypoxic respiratory failure History of Present Illness Narrative: 69 years old man with a history significant for ESRD on HD, chronic anemia, essential hypertension, hypothyroidism and type 2 diabetes mellitus on insulin presents to the emergency department complaining of worsening shortness of breath since Thursday. He did not report chest pain or cough. He does complain of thoracic pain and nausea. Does report she was brought no fever. He has been experiencing heartburn and has been taking sodium bicarbonate with water. Denied abdominal pain or vomiting He underwent emergency dialysis yesterday for fluid removal. Usually undergoes dialysis at [facility] on Thursday under the care of Dr. Davis Today he has been scheduled for his routine dialysis. Review of Systems Constitutional: Denies fever(s) and Denies weight loss Cardiovascular: Denies chest pain Respiratory: Denies cough and Denies hemoptysis Gastrointestinal: Denies abdominal pain, Denies diarrhea and Denies nausea Musculoskeletal: Denies back pain Denies focal weakness [facility] Past Medical History Medical History (Updated 02/22/24 @ 12:42 by Teja Quinn MD) ESRD needing dialysis Secondary hyperparathyroidism (of renal origin) Anemia in chronic kidney disease DONIS (acute kidney injury) End stage renal disease on dialysis Diabetes Kidney failure HTN (hypertension) Social History Social History Household Members: Spouse Housing: House Are you a primary morning caregiver to a significant other at home: No Do you presently have visiting nurse or other home services: No Alcohol intake: never Comment: [place] RISK IN PLACE FOR O2 AND WEAKNESS REPORTED S/P HD TODAY Patient Tobacco Use Status: Never used Tobacco Cigarette Packs Per Day: 0 Cigarettes Per Day: 0.0 Years Smoked: NA e-Cigarette/Vaping Use: Never Used Second Hand Smoke Exposure: No Advance Directives Date on File: 09/07/23 service: No Meds Allergies Allergy/AdvReac Type Severity Reaction Status Date / Time Penicillins [PENICILLINS] Allergy Unknown RASH Verified 02/21/24 17:57 tramadol [From ULTRAM] Allergy Unknown RASH Verified 02/21/24 17:57 trazodone [TRAZODONE] Allergy Unknown PRIAPISM Verified 02/21/24 17:57 risperidone [RISPERIDONE] AdvReac Severe dizzy, EPS Verified 02/21/24 17:57 Active Medications: Current Medications Acetaminophen (Acetaminophen 325 Mg Tablet) 975 mg PO Q6H PRN PRN Reason: mild pain, headache or fever Glucose (Glucose Gel 15 Gm Gel..Gram.) 15 gm PO Q15M PRN; Protocol PRN Reason: per Hypoglycemia Standing Ord. Heparin Sodium (Porcine) (Heparin Sodium,Porcine 5,000 Unit/Ml Vial) 5,000 unit SUBCUT Q8H [facility] Dextrose (D10) 250 mls @ 750 mls/hr IV Q15M PRN; Protocol PRN Reason: per Hypoglycemia Standing Ord. Azithromycin 500 mg/ Sodium (Chloride) 250 mls @ 125 mls/hr IV Q24H [facility] Insulin Human Lispro (Insulin Lispro 100 Unit/Ml 3 Ml Vial) 0 unit SUBCUT QIDACHS [facility]; Protocol Last Admin: 02/22/24 08:15 Dose: Not Given Lidocaine HCl (Lidocaine Hcl 1 % Mpf 2 Ml Vial) 0.5 ml SUBCUT MOWEFR@1645 [facility] Ondansetron HCl (Ondansetron Hcl 4 Mg/2 Ml Vial) 4 mg IVPUSH Q8H PRN PRN Reason: Nausea and Vomiting Oxycodone HCl (Oxycodone Hcl Immed Release 5 Mg Tablet) 5 mg PO Q4H PRN PRN Reason: moderate or severe pain Last Admin: 02/22/24 12:10 Dose: 5 mg Pantoprazole Sodium (Pantoprazole Sodium 40 Mg/10 Ml Vial) 40 mg IVPUSH BID@0630,1630 [facility] Last Admin: 02/22/24 07:08 Dose: Not Given Sodium Chloride (0.9 % Sodium Chloride Flush 3 Ml Syringe) 3 ml IVFLUSH QSHIFT [facility] Last Admin: 02/22/24 01:25 Dose: 3 ml Home Medications ?Medication ?Instructions ?Recorded ?Confirmed ?Last Taken ?Type atenolol 100 mg tablet 1 tab PO DAILY 07/11/21 02/22/24 02/21/24 History blood sugar diagnostic (FreeStyle 07/11/21 07/11/21 Unknown History Lite Strips) dextroamphetamine-amphetamine 20 1 tab PO DAILY 07/11/21 02/22/24 02/21/24 History mg tablet levothyroxine 137 mcg tablet 1 tab PO DAILY@0600 07/11/21 02/22/24 02/21/24 History pen needle, diabetic 31 gauge x 07/11/21 07/11/21 Unknown History 03/03 (BD Ultra-Fine Short Pen Needle) amlodipine 5 mg tablet 10 mg PO DAILY 09/03/23 11/04/23 11/04/23 History clonazepam 0.5 mg tablet 0.5 mg PO QID PRN Anxiety 09/03/23 02/22/24 02/21/24 History albuterol sulfate 90 mcg/actuation 2 puff inhalation Q4-6H PRN 10/29/23 02/22/24 Unknown History aerosol inhaler (Ventolin HFA) Shortness Of Breath oxycodone 5 mg tablet 10 mg PO TID PRN severe pain 10/29/23 02/22/24 02/21/24 History prochlorperazine maleate 10 mg 10 mg PO DAILY PRN nausea 10/29/23 02/22/24 Unknown History tablet atorvastatin 40 mg tablet 40 mg PO DAILY 02/22/24 02/22/24 02/21/24 History bupropion HCl 100 mg tablet,12 hr 100 mg PO QAM 02/22/24 02/22/24 02/21/24 History sustained-release losartan 25 mg tablet 25 mg PO DAILY 02/22/24 02/22/24 02/21/24 History pantoprazole 40 mg tablet,delayed 40 mg PO BID 02/22/24 02/22/24 02/21/24 History release Physical Exam Vital Signs: Last Vital Signs Temp 97.8 F 02/22/24 07:48 Pulse 77 02/22/24 07:48 Resp 20 02/22/24 07:48 BP 148/70 H 02/22/24 07:48 Pulse Ox 90 L 02/22/24 07:48 O2 Del Method Nasal Cannula 02/22/24 07:48 O2 Flow Rate 4 02/22/24 07:48 Oxygen Flow Rate 2 02/21/24 17:49 BMI result Body Mass Index 27.4 Awake. Comfortable. Neck is supple. Mucosa moist. Lungs bilateral scattered rhonchi. Heart S1-S2 heard no gallop. Abdomen soft. Extremities no edema. No involuntary movements. No myoclonus. Results Lab Results 02/22/24 06:30 02/22/24 06:30 Lab results: Chemistry 02/21/24 02/22/24 18:32 06:30 Sodium 139 139 Potassium 5.2 H D 5.2 H Carbon Dioxide 23 27 BUN 46 H 57 H Creatinine 8.67 H* 10.38 H* Calcium 9.5 D 9.0 Hematology 02/21/24 02/22/24 18:32 06:30 WBC 17.6 H 14.3 H Hgb 11.6 L 10.5 L Plt Count 221 204 Assessment and Plan (1) ESRD needing dialysis: Status: Acute Plan 69-year-old man with end stage renal disease admitted with fluid overload and mild hyperkalemia. Clinically still appears fluid overloaded. We will continue dialysis today and remove fluid as tolerated. Use low-potassium bath to correct hyperkalemia. Keep him on a low-potassium diet. Reassess fluid status after dialysis. He is mild anemia due to CKD and we will monitor hemoglobin and administer Epogen as needed. She will follow along with the team. Procedures Date of Service Date of Service: 02/23/24
[2024-02-22 13:38] LABS: Glucose, Whole Blood 130 mg/dL (60-115)
[2024-02-22] MEDS: Azithromycin 500 MG in 0.9 % Sodium Chloride 250 ML 125 MG IV (13:41)
[2024-02-22] MEDS: Heparin Sodium,Porcine 5,000 UNIT/ML VIAL 5000 UNIT SUBCUT ×2 (13:42→17:11)
--- NOTE | 2024-02-22 13:51 | HO.PM.IMPN ---
Subjective Subjective Date of Service: 02/22/24 Interval History: AHRF sec to fluid overload Review of Systems sob improving denies any chest pain has dry cough Physical Exam Vital Signs: Vital Signs: Last Vital Signs Temp 97.5 F 02/22/24 13:31 Pulse 70 02/22/24 13:31 Resp 20 02/22/24 13:31 BP 161/76 H 02/22/24 13:31 Pulse Ox 98 02/22/24 13:31 O2 Del Method Nasal Cannula 02/22/24 13:31 O2 Flow Rate 4 02/22/24 13:31 Oxygen Flow Rate 2 02/21/24 17:49 BMI result Body Mass Index 27.4 Appearance: Alert.? Oriented X3.? sob improving cvs: rrr, [id number]. res: air enrty is fair ,few faint rales at bases ,no wheezing abd: no rebound or guarding ,nt, bs present. ext pulses present , no cyanosis. neuro: axo3 , nonfocal. Objective Data Active Medications Acetaminophen (Acetaminophen 325 Mg Tablet) 975 mg PO Q6H PRN PRN Reason: mild pain, headache or fever Glucose (Glucose Gel 15 Gm Gel..Gram.) 15 gm PO Q15M PRN; Protocol PRN Reason: per Hypoglycemia Standing Ord. Heparin Sodium (Porcine) (Heparin Sodium,Porcine 5,000 Unit/Ml Vial) 5,000 unit SUBCUT Q8H [facility] Last Admin: 02/22/24 13:42 Dose: 5,000 unit Documented By: FREDY Dextrose (D10) 250 mls @ 750 mls/hr IV Q15M PRN; Protocol PRN Reason: per Hypoglycemia Standing Ord. Azithromycin 500 mg/ Sodium (Chloride) 250 mls @ 125 mls/hr IV Q24H [facility] Last Admin: 02/22/24 13:41 Dose: 125 mls/hr Documented By: FREDY Insulin Human Lispro (Insulin Lispro 100 Unit/Ml 3 Ml Vial) 0 unit SUBCUT QIDACHS [facility]; Protocol Last Admin: 02/22/24 13:42 Dose: Not Given Documented By: FREDY Non-Admin Reason: No Insulin Coverage Lidocaine HCl (Lidocaine Hcl 1 % Mpf 2 Ml Vial) 0.5 ml SUBCUT MOWEFR@1645 [facility] Ondansetron HCl (Ondansetron Hcl 4 Mg/2 Ml Vial) 4 mg IVPUSH Q8H PRN PRN Reason: Nausea and Vomiting Oxycodone HCl (Oxycodone Hcl Immed Release 5 Mg Tablet) 5 mg PO Q4H PRN PRN Reason: moderate or severe pain Last Admin: 02/22/24 12:10 Dose: 5 mg Documented By: FREDY Pantoprazole Sodium (Pantoprazole Sodium 40 Mg/10 Ml Vial) 40 mg IVPUSH BID@0630,1630 [facility] Last Admin: 02/22/24 07:08 Dose: Not Given Documented By: CIERA Non-Admin Reason: Patient Refused Sodium Chloride (0.9 % Sodium Chloride Flush 3 Ml Syringe) 3 ml IVFLUSH QSHIFT [facility] Last Admin: 02/22/24 13:41 Dose: 3 ml Documented By: FREDY Labs 02/22/24 06:30 02/22/24 06:30 Labs: Laboratory Results - last 24 hr 02/21/24 02/22/24 02/22/24 18:32 06:30 07:52 MCV 91.4 91.7 MCH 31.2 31.0 MCHC 34.1 33.8 RDW 14.8 14.7 Plt Count 221 204 MPV 10.1 10.6 Immature Gran % (Auto) 0.8 H 0.5 H Neut % (Auto) 81.7 H 80.2 H Lymph % (Auto) 7.8 L 10.2 L Walker % (Auto) 4.3 5.0 Eos % (Auto) 4.8 H 3.4 Baso % (Auto) 0.6 0.7 Lymph # (Auto) 1.4 1.5 Walker # (Auto) 0.8 0.7 Eos # (Auto) 0.9 H 0.5 H Baso # (Auto) 0.1 0.1 Abs Immat Gran (auto) 0.14 H 0.07 H Absolute Neuts (auto) 14.4 H 11.5 H Absolute Nucleated RBC 0.000 0.000 Nucleated RBC % (auto) 0.0 0.0 Anion Gap 25 H 21 H Estim Creat Clear Calc 7.4 6.6 Estimated GFR 6 5 POC Glucose 106 Random Glucose 108 102 Calcium 9.5 D 9.0 Magnesium 1.8 Total Bilirubin 1.1 H 1.1 H AST 16 11 ALT 9 7 Alkaline Phosphatase 67 60 Troponin I High Sens 7.9 B-Natriuretic Peptide 2377 H Total Protein 7.7 6.7 Albumin 4.4 3.8 Procalcitonin 0.33 Influenza Type A (PCR) NEGATIVE Influenza Type B (PCR) NEGATIVE RSV RNA Qual (PCR) NEGATIVE SARS-CoV-2 RNA (RT-PCR) NEGATIVE 02/22/24 13:33 MCV MCH MCHC RDW Plt Count MPV Immature Gran % (Auto) Neut % (Auto) Lymph % (Auto) Walker % (Auto) Eos % (Auto) Baso % (Auto) Lymph # (Auto) Walker # (Auto) Eos # (Auto) Baso # (Auto) Abs Immat Gran (auto) Absolute Neuts (auto) Absolute Nucleated RBC Nucleated RBC % (auto) Anion Gap Estim Creat Clear Calc Estimated GFR POC Glucose 130 H Random Glucose Calcium Magnesium Total Bilirubin AST ALT Alkaline Phosphatase Troponin I High Sens B-Natriuretic Peptide Total Protein Albumin Procalcitonin Influenza Type A (PCR) Influenza Type B (PCR) RSV RNA Qual (PCR) SARS-CoV-2 RNA (RT-PCR) Assessment and Plan (1) ESRD needing dialysis: Status: Acute (2) Hypoxic respiratory failure: Status: Acute (3) Fluid overload: Status: Acute (4) Pulmonary edema: Status: Acute Plan d-2 69 years old man with PMHx admitted with: AHRF secondary to fluid overload/esrd. Continue supplemental oxygen , need HD (nephro aware). Mild leucocytosis /cough/cxr(Mild peribronchial thickening and perihilar streaky density,No focal consolidations. possible mild acute bronchitis component even though leucocytosis seems ch elevated. added procalcitonin added azithormycin ,cough syrup. ESRD on HD. mild hyperkalemia Continuous phosphate binders. Low phosphate and a low-potassium diet need Hd Type 2 diabetes mellitus. Blood glucose checks before meals at bedtime. Diabetic diet. Continue Lantus and insulin sliding scale. Essential hypertension. Continue home meds. Hypothyroidism. Continue levothyroxine. Chronic pain. Continue oxycodone. Mood disorder. Continue home meds. Chronic anemia. Continue to monitor cbc . Gerd: PPI. Ongoing hospitlisation need for AHRF secondary to fluid overload/esrd- need urgent HD ,renal fucntion and electrolytes monitering ,oxygen need ,monitering respiratory status closely . Quality Stroke Does the patient have a stroke diagnosis?: No VTE Prior VTE?: No VTE Risk Level:: Medical - moderate - high VTE Device Contraindication: Treatment Not Indicated VTE Drug Contraindication: N/A - Med Ordered
[2024-02-22] MEDS: oxyCODONE HCl Immed Release 5 MG TABLET 10 MG PO ×2 (14:50→22:19)
[2024-02-22 16:19] LABS: Glucose, Whole Blood 180 mg/dL (60-115)
--- NOTE | 2024-02-22 17:00 | PHA.MEDREC ---
Pharmacy Consult ? Medication Reconciliation Pharmacy has completed the medication reconciliation. Spoke to patient and confirmed medication list. Patient said he no longer takes Lantus, only Humalog per sliding scale. He takes amlodipine but not sure what the dose is, adderall 20 mg daily, no longer takes gabapentin and omeprazole (only pantoprazole works).
[2024-02-22] MEDS: Insulin Lispro 100 UNIT/ML 3 ML VIAL SUBCUT (17:11)
[2024-02-22] MEDS: hydrALAZINE HCl 20 MG/ML VIAL 5 MG IVPUSH (20:51)
[2024-02-22 21:18] LABS: Glucose, Whole Blood 88 mg/dL (60-115)
[2024-02-23] VITALS: BP 171/76; PULSE 75; RESP 20; TEMP 36.8; O2SAT 98
[2024-02-23] MEDS: Heparin Sodium,Porcine 5,000 UNIT/ML VIAL 5000 UNIT SUBCUT ×2 (01:03→10:13)
[2024-02-23 01:44] LABS: Glucose, Whole Blood 95 mg/dL (60-115)
[2024-02-23] MEDS: clonazePAM 0.5 MG TABLET PO ×3 (01:47→15:19)
[2024-02-23 04:00] VITALS: BP 173/81; PULSE 79; RESP 18; TEMP 38.2; O2SAT 99
[2024-02-23] MEDS: Levothyroxine Sodium 25 MCG TABLET PO (04:18)
[2024-02-23] MEDS: Acetaminophen 325 MG TABLET 975 MG PO (04:18)
[2024-02-23] MEDS: Levothyroxine Sodium 112 MCG TABLET PO (04:18)
--- NOTE | 2024-02-23 05:34 | PC.NURSE ---
Addendum entered by Christel Asher RN 02/23/24 06:40: RN went to hang ceftriaxone and albumin, around 06:15, upon going to flush IV, RN noticed that it was no longer in the right AC, but in the bed. RN attempted [address] a new IV, unable to keep access. Will relay to day shift RN as it is shift change and there is no one available at this time to place the IV. Patient also frustrated, states that he needs his potassium binder ordered, adderall. Rash noted to bilateral arms/dry skin this AM as well. Will relay all this to day shift RN as MD is likely in sign out at this time. Call latham in reach, safety and comfort maintained. Addendum entered by Christel Asher RN 02/23/24 05:53: Per Dr. Bobby, would need urine specimen from patient. Patient notified - patient is oliguric, no urine voided at this time, will pass along to day shift RN. Original Note: pt a&ox3, hypertensive at start of shift (see vital signs), MD Kanu notified. 5mg of IV hydralazine ordered, given. repeat BP was lower but still hypertensive. 04:00 vital signs BP 170s systolic with a temperature of 100.8 F. MD Kanu notified, acknowledged tigerconnect message and no new orders placed for patient. aware that Tylenol PRN had just been given for back pain, mild. PT requested clonazepam (home medication) in the night as patient states he was feeling too anxious to sleep. MD ordered, RN administered per order. All needs met, safety and comfort maintained, call latham within reach.
--- NOTE | 2024-02-23 05:36 | PM.EVENT ---
Event Note Date of Service: 02/23/24 Event Note: [place] febrile 100.8. Will repeat chest xray, obtain lactic acid and blood culture. Pt on IV azithromycin, will add ceftriaxone x1. Also obtain UA Time Spent With Patient Time: Total time managing care of this patient today ____ minutes.
[2024-02-23 06:00] VITALS: BMI 27.6
[2024-02-23] MEDS: Omeprazole 20 MG CAPSULE.DR PO (06:08)
[2024-02-23] MEDS: cefTRIAXone sodium 1 GM in 0.9 % Sodium Chloride 50 ML IV (07:00)
[2024-02-23 07:09] VITALS: BMI 27.0
[2024-02-23] MEDS: Albumin Human 25 % 100 ML 133.33 ML IV (07:27)
[2024-02-23 07:29] LABS: Glucose, Whole Blood 96 mg/dL (60-115)
[2024-02-23 07:37] LABS: Lactic Acid 0.8 mmol/L (0.5-2.0)
[2024-02-23 07:46] VITALS: BP 138/73; PULSE 68; RESP 17; TEMP 36.4; O2SAT 100
[2024-02-23] MEDS: Sevelamer Carbonate Tablet 800 MG TABLET PO ×3 (08:23→17:00)
[2024-02-23] MEDS: buPROPion HCL 100 MG TABLET PO (08:23)
[2024-02-23] MEDS: Amphetamine Mixed Salts 20 MG TABLET PO (08:23)
[2024-02-23] MEDS: Atorvastatin Calcium 40 MG TABLET PO (08:23)
[2024-02-23] MEDS: Losartan Potassium 25 MG TABLET PO (08:23)
[2024-02-23] MEDS: atenoloL 100 MG TABLET PO (08:23)
[2024-02-23] MEDS: oxyCODONE HCl Immed Release 5 MG TABLET 10 MG PO ×2 (08:24→15:19)
--- NOTE | 2024-02-23 08:31 | P.PNNP_ITS ---
Subjective Subjective Date of Service: 02/24/24 Interval history: Events noted Developed fever Work up in progress Physical Exam 2 Vital Signs: Vital Signs: Last Vital Signs Temp 97.5 F 02/23/24 07:46 Pulse 68 02/23/24 07:46 Resp 17 02/23/24 07:46 BP 138/73 02/23/24 07:46 Pulse Ox 100 02/23/24 07:46 O2 Del Method Nasal Cannula 02/23/24 07:46 O2 Flow Rate 2 02/23/24 07:46 Oxygen Flow Rate 2 02/21/24 17:49 BMI result Body Mass Index 27.0 Objective Data Labs 02/22/24 06:30 02/22/24 06:30 Labs: Laboratory Results - last 24 hr 02/22/24 02/22/24 02/22/24 06:30 13:33 16:10 Hold Purple Top POC Glucose 130 H 180 H Lactic Acid Procalcitonin 0.33 Hold Yellow Top 02/22/24 02/23/24 02/23/24 21:03 01:35 07:15 Hold Purple Top SEE NOTE POC Glucose 88 95 Lactic Acid 0.8 Procalcitonin Hold Yellow Top See Note 02/23/24 07:24 Hold Purple Top POC Glucose 96 Lactic Acid Procalcitonin Hold Yellow Top Procedures Date of Service Date of Service: 02/24/24 Assessment & Plan Assessment and plan (1) ESRD needing dialysis: Status: Acute Plan HD 3 x week per protocol No s/s of uremia Work up for fever in progress Time Spent With Patient Time: Total time managing care of this patient today ____ minutes. Progress Note: Quality Stroke Does the patient have a stroke diagnosis?: No
[2024-02-23] MEDS: Azithromycin 500 MG in 0.9 % Sodium Chloride 250 ML 125 MG IV (08:34)
[2024-02-23] MEDS: 0.9 % Sodium Chloride Flush 3 ML SYRINGE IVFLUSH ×2 (08:34→17:00)
[2024-02-23 09:05] LABS: Appearance Urine Clear; Color Urine Yellow; Glucose Urine UA 100 mg/dL (Negative); Leukocyte Esterase Urine Negative (Negative); Nitrite Urine Negative (Negative); PH >= 9.0 (5.0-9.0); UMIC TRIGGER UACC YES; Urine Blood Trace (Negative); Urine Ketones Negative (Negative); Urine Protein 300 (3+) mg/dL (Neg-Trace)
[2024-02-23 09:10] LABS: Bacteria Urine None Seen (None Seen); Hyaline Casts Urine 0-2 /LPF (0-2); RBC Urine 0-2 /HPF (0-2); Squamous Epithelial Cell Urine 0-2 /HPF (0-2); WBC Urine 0-5 /HPF (0-5)
[2024-02-23 11:32] LABS: Glucose, Whole Blood 165 mg/dL (60-115)
[2024-02-23 11:44] VITALS: PULSE 74; O2SAT 97
[2024-02-23 11:52] VITALS: BP 156/79; PULSE 72; RESP 18; TEMP 36.3; O2SAT 98
--- NOTE | 2024-02-23 12:22 | MHC.CM.PN ---
PT is recommending home with services and CM will follow.
[2024-02-23] MEDS: Insulin Lispro 100 UNIT/ML 3 ML VIAL SUBCUT (12:23)
--- NOTE | 2024-02-23 14:10 | P.PNIM_ITS ---
Subjective Subjective Date of Service: 02/23/24 Interval History: f/u on Acute hypoxic resp failure d/t fluid overload and PNA had fever overnight. No hypoxia Physical Exam 2 Vital Signs: Vital Signs: Last Vital Signs Temp 97.3 F 02/23/24 11:52 Pulse 72 02/23/24 11:52 Resp 18 02/23/24 11:52 BP 156/79 H 02/23/24 11:52 Pulse Ox 98 02/23/24 11:52 O2 Del Method Room Air 02/23/24 11:52 O2 Flow Rate 2 02/23/24 07:46 Oxygen Flow Rate 2 02/21/24 17:49 BMI result Body Mass Index 27.0 General: AO X 2, no acute distress Resp: CTA bilateral CVS: S1,S2,RRR GI: +BS, NT, no distention Skin: No rash Neuro: motor grossly intact Psych: appropriate affect Objective Data Active Medications Acetaminophen (Acetaminophen 325 Mg Tablet) 975 mg PO Q6H PRN PRN Reason: mild pain, headache or fever Last Admin: 02/23/24 04:18 Dose: 975 mg Documented By: KRISTY Albuterol Sulfate (Albuterol Sulfate 90 Mcg 8 Gm Inhaler) 2 puff INHALE Q4H PRN PRN Reason: Shortness Of Breath Amphetamine/Dextroamphetamine (Amphetamine Mixed Salts 20 Mg Tablet) 20 mg PO DAILY [facility] Last Admin: 02/23/24 08:23 Dose: 20 mg Documented By: FREDY Atenolol (Atenolol 100 Mg Tablet) 100 mg PO DAILY [facility]; Protocol Last Admin: 02/23/24 08:23 Dose: 100 mg Documented By: FREDY Atorvastatin Calcium (Atorvastatin Calcium 40 Mg Tablet) 40 mg PO DAILY [facility] Last Admin: 02/23/24 08:23 Dose: 40 mg Documented By: FREDY Bupropion HCl (Bupropion Hcl 100 Mg Tablet) 100 mg PO DAILY [facility] Last Admin: 02/23/24 08:23 Dose: 100 mg Documented By: FREDY Clonazepam (Clonazepam 0.5 Mg Tablet) 0.5 mg PO QID PRN PRN Reason: Anxiety Last Admin: 02/23/24 10:11 Dose: 0.5 mg Documented By: FREDY Glucose (Glucose Gel 15 Gm Gel..Gram.) 15 gm PO Q15M PRN; Protocol PRN Reason: per Hypoglycemia Standing Ord. Heparin Sodium (Porcine) (Heparin Sodium,Porcine 5,000 Unit/Ml Vial) 5,000 unit SUBCUT Q8H [facility] Last Admin: 02/23/24 10:13 Dose: 5,000 unit Documented By: FREDY Dextrose (D10) 250 mls @ 750 mls/hr IV Q15M PRN; Protocol PRN Reason: per Hypoglycemia Standing Ord. Azithromycin 500 mg/ Sodium (Chloride) 250 mls @ 125 mls/hr IV Q24H [facility] Last Infusion: 02/23/24 10:34 Dose: Infused Documented By: FREDY Insulin Human Lispro (Insulin Lispro 100 Unit/Ml 3 Ml Vial) 0 unit SUBCUT QIDACHS [facility]; Protocol Last Admin: 02/23/24 12:23 Dose: 2 unit Documented By: FREDY Levothyroxine Sodium (Levothyroxine Sodium 112 Mcg Tablet) 112 mcg PO DAILY@0600 [facility] Last Admin: 02/23/24 04:18 Dose: 112 mcg Documented By: KRISTY Comments: patient request to be administered now Levothyroxine Sodium (Levothyroxine Sodium 25 Mcg Tablet) 25 mcg PO DAILY@0600 [facility] Last Admin: 02/23/24 04:18 Dose: 25 mcg Documented By: KRISTY Comments: patient request to be administered now Lidocaine HCl (Lidocaine Hcl 1 % Mpf 2 Ml Vial) 0.5 ml SUBCUT MOWEFR@1645 [facility] Last Admin: 02/22/24 17:22 Dose: Not Given Documented By: FREDY Non-Admin Reason: Patient Refused Losartan Potassium (Losartan Potassium 25 Mg Tablet) 25 mg PO DAILY [facility]; Protocol Last Admin: 02/23/24 08:23 Dose: 25 mg Documented By: FREDY Omeprazole (Omeprazole 20 Mg Ta.) 20 mg PO BID@0630,1630 [facility] Last Admin: 02/23/24 06:08 Dose: 20 mg Documented By: KRISTY Ondansetron HCl (Ondansetron Hcl 4 Mg/2 Ml Vial) 4 mg IVPUSH Q8H PRN PRN Reason: Nausea and Vomiting Oxycodone HCl (Oxycodone Hcl Immed Release 5 Mg Tablet) 10 mg PO TID PRN PRN Reason: severe pain Last Admin: 02/23/24 08:24 Dose: 10 mg Documented By: FREDY Pantoprazole Sodium (Pantoprazole Sodium 40 Mg/10 Ml Vial) 40 mg IVPUSH BID@0630,1630 [facility] Last Admin: 02/23/24 05:34 Dose: Not Given Documented By: KRISTY Non-Admin Reason: Patient Refused Sevelamer Carbonate (Sevelamer Carbonate Tablet 800 Mg Tablet) 800 mg PO TIDWM [facility] Last Admin: 02/23/24 12:23 Dose: 800 mg Documented By: FREDY Sodium Chloride (0.9 % Sodium Chloride Flush 3 Ml Syringe) 3 ml IVFLUSH QSHIFT [facility] Last Admin: 02/23/24 08:34 Dose: 3 ml Documented By: FREDY Labs 02/22/24 06:30 02/22/24 06:30 Labs: Laboratory Results - last 24 hr 02/22/24 02/22/24 02/23/24 16:10 21:03 01:35 Hold Purple Top POC Glucose 180 H 88 95 Lactic Acid Hold Yellow Top Urine Color Urine Appearance Urine pH Ur Specific [place] Urine Protein Urine Glucose (UA) Urine Ketones Urine Blood Urine Nitrite Ur Leukocyte Esterase Urine RBC Urine WBC Ur Squamous Epith Cells Urine Bacteria Hyaline Casts 02/23/24 02/23/24 02/23/24 07:15 07:24 08:35 Hold Purple Top SEE NOTE POC Glucose 96 Lactic Acid 0.8 Hold Yellow Top See Note Urine Color Yellow Urine Appearance Clear Urine pH >= 9.0 Ur Specific [place] 1.010 Urine Protein 300 (3+) H Urine Glucose (UA) 100 H Urine Ketones Negative Urine Blood Trace H Urine Nitrite Negative Ur Leukocyte Esterase Negative Urine RBC 0-2 Urine WBC 0-5 Ur Squamous Epith Cells 0-2 Urine Bacteria None Seen Hyaline Casts 0-2 02/23/24 11:26 Hold Purple Top POC Glucose 165 H Lactic Acid Hold Yellow Top Urine Color Urine Appearance Urine pH Ur Specific [place] Urine Protein Urine Glucose (UA) Urine Ketones Urine Blood Urine Nitrite Ur Leukocyte Esterase Urine RBC Urine WBC Ur Squamous Epith Cells Urine Bacteria Hyaline Casts Assessment and Plan (1) ESRD needing dialysis: Status: Acute (2) Hypoxic respiratory failure: Status: Acute (3) Fluid overload: Status: Acute (4) Pulmonary edema: Status: Acute Plan 69 years old man with PMHx admitted with: Acute hypoxic respiratory failure secondary to fluid overload and possible PNA -improve with HD with fluid removal Fever, cough, Leukocytosis and and infiltrate on CXR--being treated for PNA with Ceftriaxone and Azithro ESRD, HD per dialysis. Type 2 diabetes mellitus. Continue SSI Hypothyroidism. Continue levothyroxine. Chronic pain. Continue oxycodone. Mood disorder. Continue home meds. Chronic anemia. Continue to monitor cbc . Gerd: PPI. need for inpatient: management of acute hypoxic resp failure d/t PNA, fluid overload Quality Stroke Does the patient have a stroke diagnosis?: No VTE Prior VTE?: No VTE Risk Level:: Medical - moderate - high VTE Device Contraindication: Treatment Not Indicated VTE Drug Contraindication: N/A - Med Ordered
--- NOTE | 2024-02-23 16:11 | P.DS_ITS ---
DS: Providers Provider Date of Service: 02/23/24 Date of admission: 02/21/24 21:42 Primary care physician: Matias Tan MD Consults: 02/22/24 08:29 Consult to Nephrology Routine Consulting Provider: [facility] [place] [facility] Reason for consultation: esrd,fluid overload Has provider been notified: No DS: Diagnosis Discharge Diagnosis (1) ESRD needing dialysis: Status: Acute (2) Hypoxic respiratory failure: Status: Acute (3) Fluid overload: Status: Acute (4) Pulmonary edema: Status: Acute DS: Summary Hospital Course Hospital Course: Admission hpi Chief Complaint: Shortness on breath Emma Wick is a 69 years old man with past medical history significant for ESRD on HD, chronic anemia, essential hypertension, hypothyroidism and type 2 diabetes mellitus on insulin presents to the emergency department complaining of worsening shortness of breath since Thursday. He did not report chest pain or cough. He does complain of thoracic pain and nausea. Does report she was brought no fever. He has been experiencing heartburn and has been taking sodium bicarbonate with water. Denied abdominal pain or vomiting. In the ED, he was found to have tachypnea and hypoxia, 84% on room air. He is currently on OxyMask 15 L/min. Blood workup was remarkable for leukocytosis of 17.6. Hemoglobin is 11.6 (around baseline). There is mild hyperkalemia of 5.2. Creatinine is 8.67 and BUN 46. Troponin is 7.9. LFTs essentially normal. In my opinion CXR is consistent with pulmonary edema. ECG showed normal sinus rhythm with a heart rate 81 beats per minutes. No acute ischemic changes. ED tx: Zofran 4 mg IV, morphine 4 mg IV, Lasix 80 mg IV, lidocaine 0.5 mL and Nitro-Bid 1 in transdermal. hospital course: Acute hypoxic respiratory failure secondary to fluid overload and possible PNA -improve with HD with fluid removal Fever, cough, Leukocytosis and and mild infiltrate on CXR, with possible PNA, treated with Azithromycin and Ceftriaxone, he is feeling better, fever was 100.8 and no further fever, no hypoxia. He would like to go home and complete treatment and therefore will discharge with oral Ceftin ESRD, HD per dialysis. Type 2 diabetes mellitus. Continue SSI Hypothyroidism. Continue levothyroxine. Chronic pain. Continue oxycodone. Mood disorder. Continue home meds. Chronic anemia. Continue to monitor cbc . Time Attestation Discharge Coordination Time (in mins): 35 Quality: Safe Use of Opioids Does Pt have an Active Cancer Diagnosis on the Problem List?: No Quality: Stroke Does the patient have a stroke diagnosis?: No Physical Exam Vital Signs: Vital Signs: Last Vital Signs Temp 97.3 F 02/23/24 11:52 Pulse 72 02/23/24 11:52 Resp 18 02/23/24 11:52 BP 156/79 H 02/23/24 11:52 Pulse Ox 98 02/23/24 11:52 O2 Del Method Room Air 02/23/24 11:52 O2 Flow Rate 2 02/23/24 07:46 Oxygen Flow Rate 2 02/21/24 17:49 BMI result Body Mass Index 27.0 DS: Data Data Completed and Pending Completed studies during hospitalization [Text1]: Procedures Assistance with Respiratory Ventilation, Less than 24 Consecutive Hours, Continuous Positive Airway Pressure (11/04/23) Performance of Urinary Filtration, Intermittent, Less than 6 Hours Per Day (11/04/23) Labs on day of discharge: Laboratory Results - last 24 hr 02/22/24 02/22/24 02/23/24 16:10 21:03 01:35 Hold Purple Top POC Glucose 180 H 88 95 Lactic Acid Hold Yellow Top Urine Color Urine Appearance Urine pH Ur Specific [place] Urine Protein Urine Glucose (UA) Urine Ketones Urine Blood Urine Nitrite Ur Leukocyte Esterase Urine RBC Urine WBC Ur Squamous Epith Cells Urine Bacteria Hyaline Casts 02/23/24 02/23/24 02/23/24 07:15 07:24 08:35 Hold Purple Top SEE NOTE POC Glucose 96 Lactic Acid 0.8 Hold Yellow Top See Note Urine Color Yellow Urine Appearance Clear Urine pH >= 9.0 Ur Specific [place] 1.010 Urine Protein 300 (3+) H Urine Glucose (UA) 100 H Urine Ketones Negative Urine Blood Trace H Urine Nitrite Negative Ur Leukocyte Esterase Negative Urine RBC 0-2 Urine WBC 0-5 Ur Squamous Epith Cells 0-2 Urine Bacteria None Seen Hyaline Casts 0-2 02/23/24 11:26 Hold Purple Top POC Glucose 165 H Lactic Acid Hold Yellow Top Urine Color Urine Appearance Urine pH Ur Specific [place] Urine Protein Urine Glucose (UA) Urine Ketones Urine Blood Urine Nitrite Ur Leukocyte Esterase Urine RBC Urine WBC Ur Squamous Epith Cells Urine Bacteria Hyaline Casts Discharge Plan Discharge Anticipated Discharge Date/Time: 02/23/24 15:56 Patient Disposition: Home, Self-Care Discharge Diagnosis: Acute hypoxic respiratory failure, pulmonary edema, Referrals: Matias Tan MD [Primary Care Provider] - 1 Week Discharge Medications: New azithromycin 250 mg tablet 250 mg PO DAILY 4 Days Qty: 4 0RF Continued levothyroxine 137 mcg tablet 1 tab PO DAILY@0600 atenolol 100 mg tablet 1 tab PO DAILY (DME) FreeStyle Lite Strips Strip MISCELLANEOUS TID dextroamphetamine-amphetamine 20 mg tablet 1 tab PO DAILY (DME) pen needle, diabetic [BD Ultra-Fine Short Pen Needle] 31 gauge x 5/16 needle subcut DAILY clonazepam 0.5 mg tablet 0.5 mg PO QID PRN (Reason: Anxiety) amlodipine 5 mg tablet 10 mg PO DAILY insulin lispro [Humalog KwikPen Insulin] 100 unit/mL insulin pen 1 sliding scale dose subcut USEASDIRECTD Qty: 15 0RF prochlorperazine maleate 10 mg tablet 10 mg PO DAILY PRN (Reason: nausea) albuterol sulfate [Ventolin HFA] 90 mcg/actuation HFA aerosol inhaler 2 puff INHALATION Q4-6H PRN (Reason: Shortness Of Breath) oxycodone 5 mg tablet 10 mg PO TID PRN (Reason: severe pain) sevelamer carbonate 800 mg tablet 800 mg PO TID Qty: 90 2RF Rx Instructions: must administer with a meal/food atorvastatin 40 mg tablet 40 mg PO DAILY bupropion HCl 100 mg tablet sustained-release 12 hr 100 mg PO QAM pantoprazole 40 mg tablet,delayed release (DR/EC) 40 mg PO BID losartan 25 mg tablet 25 mg PO DAILY Discharge Orders: Discharge Order (Routine); Ordered 02/23/24 Ordered By: Reyes Reyes Diet: Advance to usual diet Activity on Discharge: As tolerated Stand Alone Forms: Patient Portal Discharge page Print Language: Frisian Care Plan Goals: recovery from pulmonary edema and pneumonia Health Concerns: kidney failure on dialysis pulmonary edema pneumonia Plan of Treatment: Take Azithromycin as recommended and follow up with your primary care provider and follow up with dialysis as before Assessment: see above
== END 2024-02-23 17:38 | disposition home or self-care (01) | DRG 640 ==
LOC: HO.ED 20:40 → HO.EDOVER 21:55 → HO.IMC 22:30
PROVIDERS: Internal Medicine; Nurse Practitioner Family; Student in an Organized Health Care Education/Training Program; Admitting Provider Internal Medicine; Emergency Provider Emergency Medicine Emergency Medical Services; PCP Family Medicine; Visit Provider Internal Medicine
DX: E87.70 Fluid overload, unspecified (principal); J18.9 Pneumonia, unspecified organism; J96.01 Acute respiratory failure with hypoxia; N18.6 End stage renal disease; I12.0 Hypertensive chronic kidney disease with stage 5 chronic kidney disease or end stage renal disease; E11.22 Type 2 diabetes mellitus with diabetic chronic kidney disease; D63.1 Anemia in chronic kidney disease; E03.9 Hypothyroidism, unspecified; F39 Unspecified mood [affective] disorder; K21.9 Gastro-esophageal reflux disease without esophagitis; Z20.822 Contact with and (suspected) exposure to COVID-19; Z99.2 Dependence on renal dialysis; Z91.158 Patient's noncompliance with renal dialysis for other reason; Z79.4 Long term (current) use of insulin; Z87.01 Personal history of pneumonia (recurrent); Z79.890 Hormone replacement therapy; Z79.899 Other long term (current) drug therapy
CPT/HCPCS: 0241U; 36415; 71045; 71046; 80053; 81001; 82947; 83605; 83735; 83880; 84145; 84484; 85025; 87040; 90999; 92950; 93005; 97162; 99285; J0360; J0456; J0696; J1644; J1940; J2270; J2405; P9047

== ENCOUNTER → 2024-02-21 18:03 | Outpatient (BNV) | payer MEDICARE, SELFPAY | PROVIDERS: Admitting Provider Internal Medicine; Emergency Provider Emergency Medicine Emergency Medical Services; PCP Family Medicine; Visit Provider Internal Medicine Cardiovascular Disease | DX: R06.00 Dyspnea, unspecified (principal) | CPT/HCPCS: 93010 ==

== ENCOUNTER → 2024-02-21 18:35 | Outpatient (BNV) | payer MEDICARE, SELFPAY | PROVIDERS: Emergency Provider Emergency Medicine Emergency Medical Services; PCP Family Medicine; Visit Provider Internal Medicine Nephrology | DX: N18.6 End stage renal disease (principal); Z99.2 Dependence on renal dialysis | CPT/HCPCS: 90935; 99232; 99499 ==

== ENCOUNTER → 2024-02-21 21:42 | Outpatient (BNV) | payer MEDICARE, SELFPAY | PROVIDERS: Admitting Provider Internal Medicine; Emergency Provider Emergency Medicine Emergency Medical Services; PCP Family Medicine; Visit Provider Internal Medicine | DX: N18.6 End stage renal disease (principal); Z99.2 Dependence on renal dialysis; J96.01 Acute respiratory failure with hypoxia; E87.79 Other fluid overload; J81.1 Chronic pulmonary edema | CPT/HCPCS: 99223; 99232; 99239 ==

== ENCOUNTER 2024-04-23 11:37 | Emergency (ER) | payer MEDICARE, SELFPAY ==
--- NOTE | ~2024-04-23 | XR_ITS ---
EXAMINATION: XR CHEST CLINICAL INFORMATION: Reason for Exam SOB, ?fluid overload COMPARISON: Chest radiograph 02/23/2024 TECHNIQUE: 2 views of the chest FINDINGS: Lines and tubes: EKG leads overlie the patient. Indistinctness of the central pulmonary vasculature may reflect pulmonary venous congestion. Mild elevation of the right hemidiaphragm similar to prior. Trace bilateral pleural effusions. No pneumothorax. Normal cardiomediastinal silhouette. XR/XR chest 2V IMPRESSION: 1. Indistinctness of the central pulmonary vasculature may reflect pulmonary venous congestion. 2. Trace bilateral pleural effusions. 3. Mild elevation of the right hemidiaphragm similar to prior.
[2024-04-23 11:39] VITALS: BP 179/74; PULSE 67; RESP 22; TEMP 35.9; O2SAT 100; BMI 24.2
--- NOTE | 2024-04-23 11:42 | ED.GENADULT ---
HPI - General Adult General Chief complaint: Dyspnea Stated complaint: end renal stage diff breating Time Seen by Provider: 04/23/24 11:55 Source: patient Mode of arrival: ambulatory Limitations: no limitations History of Present Illness ED Provider: DR. Rutledge HPI narrative: 69-year-old man with past medical history significant for ESRD on HD his last dialysis was yesterday was 4 hours session patient still makes urine few cc a day, essential hypertension, chronic anemia, hypothyroidism, DM type 2 came in today for difficulty breathing thinking that he is still need more dialysis. Patient had a prior hospitalization for similar symptoms in the past. stated that patient lost about 60 lb over past 2 years thinks that he is losing weight faster over the past3 months. Related Data Home Medications ?Medication ?Instructions ?Recorded ?Confirmed atenolol 100 mg tablet 1 tab PO DAILY 07/11/21 02/22/24 blood sugar diagnostic (FreeStyle 07/11/21 07/11/21 Lite Strips) dextroamphetamine-amphetamine 20 1 tab PO DAILY 07/11/21 02/22/24 mg tablet levothyroxine 137 mcg tablet 1 tab PO DAILY@0600 07/11/21 02/22/24 pen needle, diabetic 31 gauge x 07/11/21 07/11/21/16 (BD Ultra-Fine Short Pen Needle) amlodipine 5 mg tablet 10 mg PO DAILY 09/03/23 11/04/23 clonazepam 0.5 mg tablet 0.5 mg PO QID PRN Anxiety 09/03/23 02/22/24 albuterol sulfate 90 mcg/actuation 2 puff inhalation Q4-6H PRN 10/29/23 02/22/24 aerosol inhaler (Ventolin HFA) Shortness Of Breath oxycodone 5 mg tablet 10 mg PO TID PRN severe pain 10/29/23 02/22/24 prochlorperazine maleate 10 mg 10 mg PO DAILY PRN nausea 10/29/23 02/22/24 tablet atorvastatin 40 mg tablet 40 mg PO DAILY 02/22/24 02/22/24 bupropion HCl 100 mg tablet,12 hr 100 mg PO QAM 02/22/24 02/22/24 sustained-release losartan 25 mg tablet 25 mg PO DAILY 02/22/24 02/22/24 pantoprazole 40 mg tablet,delayed 40 mg PO BID 02/22/24 02/22/24 release Previous Rx's ?Medication ?Instructions ?Recorded insulin lispro 100 unit/mL 1 sliding scale dose subcut 09/05/23 subcutaneous pen (Humalog KwsaloniPen USEASDIRECTD #15 mL (U-100) Insulin) sevelamer carbonate 800 mg tablet 800 mg PO TID #90 tabs 10/31/23 azithromycin 250 mg tablet 250 mg PO DAILY 4 days #4 tabs 02/23/24 Allergies Allergy/AdvReac Type Severity Reaction Status Date / Time Penicillins [PENICILLINS] Allergy Unknown RASH Verified 04/23/24 11:43 tramadol [From ULTRAM] Allergy Unknown RASH Verified 04/23/24 11:43 trazodone [TRAZODONE] Allergy Unknown PRIAPISM Verified 04/23/24 11:43 risperidone [RISPERIDONE] AdvReac Severe dizzy, EPS Verified 04/23/24 11:43 Review of Systems Review of Systems: All other systems are reviewed and are negative Constitutional: Reports as per HPI and Reports no additional constitutional complaints Eyes: Reports as per HPI and Reports no additional eye complaints Reports system reviewed and no additional complaints, except as documented Cardiovascular: Reports as per HPI and Reports no additional cardiovascular complaints Respiratory: Reports as per HPI and Reports no additional respiratory complaints Gastrointestinal: Reports as per HPI and Reports no additional gastrointestinal complaints Genitourinary: Reports no additional female genitourinary complaints Musculoskeletal: Reports no additional musculoskeletal complaints Skin/Breast: Reports system reviewed and no additional complaints, except as docu Psychiatric: Reports no additional psychiatric complaints Endocrine: Reports no additional endocrine complaints Hematologic/Lymphatic: Reports no additional hematologic/lymphatic complaints Allergic/Immunologic: Reports no additional allergic/immunologic complaints Reports system reviewed and no additional complaints, except as documented and Reports Abnormal speech present [facility] Past Medical History Medical History ESRD needing dialysis Secondary hyperparathyroidism (of renal origin) Anemia in chronic kidney disease DONIS (acute kidney injury) End stage renal disease on dialysis Diabetes Kidney failure HTN (hypertension) Social History Social History Household Members: Spouse Housing: House Are you a primary acute care nurse practitioner to a significant other at home: No Do you presently have visiting nurse or other home services: No Alcohol intake: never Comment: [place] RISK IN PLACE FOR O2 AND WEAKNESS REPORTED S/P HD TODAY Patient Tobacco Use Status: Never used Tobacco Cigarette Packs Per Day: 0 Cigarettes Per Day: 0.0 Years Smoked: NA e-Cigarette/Vaping Use: Never Used Second Hand Smoke Exposure: No Advance Directives: Yes Advance Directives on File: Yes Advance Directives Date on File: 09/07/23 Do you have a plan to hurt others: No Plan service: No Physical Exam ED Vital Signs: Vital Signs - 24 hr 04/23/24 11:39 Temperature 96.7 F L Pulse Rate 67 Respiratory Rate 22 H Blood Pressure 179/74 H Pulse Oximetry 100 Oxygen Delivery Method Room Air BMI result Body Mass Index 24.2 Vital signs have been reviewed and appear to be correct. Blood pressure elevated. Heart rate normal. Respiratory rate normal. Temperature normal. Oxygen saturation normal. Appearance: Alert. Oriented X3. No acute distress. Head: Normal external exam. Normocephalic. Atraumatic. No Castellano signs noted. No raccoon eyes noted Eyes: PERRLA. EOMI. Conjunctiva and sclera normal. Eyelids normal. ENT: TM's Normal. Pharynx normal. Uvula midline. Moist mucous membranes. No trismus noted. No drooling noted. No muffled voice noted. Neck: Normal inspection. Neck supple. FROM. No adenopathy. Thyroid Normal. No meningeal signs. No neck mass noted. CVS: Normal heart rate and rhythm. Heart sound normal. No murmurs noted. Pulses normal throughout. Respiratory: No respiratory distress. Painless inspiration. Breath sounds normal. No wheezes/rales/rhonchi noted. Chest nontender. No accessory muscle usage noted or decreased air movement noted. Abdomen: Soft and nontender. Bowel sounds normal in all 4 quadrants. No distention noted. No organomegaly noted. No visible injury noted. Back: No CVA tenderness. Full range of motion noted. Skin: Skin warm and dry. Normal skin color. Normal skin turgor. No rashes/lesions/lacerations noted. Extremities: No lower extremity edema. Extremities exhibit normal range of motion. Extremities nontender. Neuro: Oriented X 3. Cranial nerve exam: II-XII are grossly intact No motor deficit. No sensory deficit. Reflexes normal. Course Course Course Narrative: This is a Rapid Medical Examination (RME) performed by Zara Mayfield PA-C in triage. Full HPI, ROS, assessment and treatment plan per primary provider in the Main ED. 69-year-old male with a history of end-stage renal disease dialyzed on Thursday, Thursday and Thursday (dialyzed yesterday), diabetes, hypertension presents to the ED for eval of shortness of breath x1 week. he believes he is fluid overloaded. [place] [facility] [place] ago. rales at bases, equal bilaterally. speaking in full sentences. Plan: labs, ekg, cxr ordered Reevaluation(s) Reevaluation #1: ESRD on hemodialysis last dialysis was full session yesterday came in with shortness of breath similar scenario happen in the past and patient require inpatient dialysis, the case was discussed with Dr. Qiunn. Will admit the patient for further dialysis. Time: 13:57 Medical Decision Making Differential Diagnosis Differential Diagnoses: The differential diagnosis associated with the presentation includes (Volume overdose, congestive heart failure, pneumonia, pneumothorax, pleural effusion, electrolyte derangement, severe anemia.) Admission/Observation Consideration of admission/observation: Escalation of care including admission/observation considered Consult Healthcare Provider Management of the patient was discussed with: Hospitalist (Dr. Villanueva) and Archival Records Clerk (Dr. Quinn) Lab Data MDM Lab Attestation statement: I reviewed the patient's lab results. 04/23/24 12:51 04/23/24 12:51 Labs: Lab Results 04/23/24 Range/Units 12:51 WBC 7.7 (4.8-10.8) X10*3/uL RBC 3.48 L (4.60-5.80) X10*6/uL Hgb 10.8 L (14.0-18.0) g/dl Hct 30.9 L (42.0-52.0) % MCV 88.8 (80.0-98.0) fL MCH 31.0 (27.0-33.0) pg MCHC 35.0 (31.0-36.0) g/dl RDW 14.5 (11.0-16.0) % Plt Count 230 (160-400) X10*3/uL MPV 10.2 (9.4-12.4) fL Immature Gran % (Auto) 0.3 (0.0-0.4) % Neut % (Auto) 59.4 (45-73) % Lymph % (Auto) 16.7 L (20-40) % [place] % (Auto) 11.2 H (2-11) % Eos % (Auto) 11.2 H (0-4) % Baso % (Auto) 1.2 (0-2) % Lymph # (Auto) 1.3 (1.2-4.9) X10*3/uL [place] # (Auto) 0.9 (0.1-1.2) X10*3/uL Eos # (Auto) 0.9 H (0.0-0.4) X10*3/uL Baso # (Auto) 0.1 (0.0-0.2) X10*3/uL Abs Immat Gran (auto) 0.02 (0.00-0.03) X10*3/uL Absolute Neuts (auto) 4.6 (2.0-8.3) x10*3/uL Absolute Nucleated RBC 0.000 (0.0-0.012) X10*3/uL Nucleated RBC % (auto) 0.0 (0.0-0.2) /100WBC PT 12.3 (11.1-13.3) SEC INR 1.0 (0.9-1.1) Sodium 139 (135-145) mmol/L Potassium 3.8 D (3.3-5.1) mmol/L Chloride 98 (96-108) mmol/L Carbon Dioxide 28 (22-29) mmol/L Anion Gap 17 (12-20) BUN 15 (9-16) mg/dL Creatinine 5.45 H* (0.5-1.4) mg/dL Estim Creat Clear Calc 11.3 Estimated GFR 10 Random Glucose 125 H (60-115) mg/dL Calcium 9.5 (8.4-10.2) mg/dL Magnesium 2.2 (1.6-2.6) mg/dL Total Bilirubin 0.8 (0.0-1.0) mg/dL AST 16 (5-37) U/L ALT 9 (0-40) U/L Alkaline Phosphatase 54 (39-117) U/L Troponin I High Sens 8.3 (<3.5-35.0) ng/L B-Natriuretic Peptide 3170 H (<100) pg/mL Total Protein 7.1 (6.5-8.0) g/dL Albumin 4.4 (3.5-5.0) g/dL Lipase 21 (8-78) U/L Independent Interpretation I performed an independent interpretation of an: Plain X-Ray (Chest x-ray:1. Indistinctness of the central pulmonary vasculature may reflect pulmonary venous congestion. 2. Trace bilateral pleural effusions. 3. Mild elevation of the right hemidiaphragm similar to prior. ) Radiology Impression Discussion of test interpretation with radiology: I have reviewed the radiologist's reading. Chronic Conditions Patient?s care impacted by: Other (ESRD) Discharge Plan Discharge Clinical Impression: Dyspnea, End stage kidney disease Patient Disposition: Home, Self-Care Prescriptions: No Action levothyroxine 137 mcg tablet 1 tab PO DAILY@0600 atenolol 100 mg tablet 1 tab PO DAILY (DME) FreeStyle Lite Strips Strip MISCELLANEOUS TID dextroamphetamine-amphetamine 20 mg tablet 1 tab PO DAILY (DME) pen needle, diabetic [BD Ultra-Fine Short Pen Needle] 31 gauge x 5/16 needle subcut DAILY clonazepam 0.5 mg tablet 0.5 mg PO QID PRN (Reason: Anxiety) amlodipine 5 mg tablet 10 mg PO DAILY insulin lispro [Humalog KwikPen Insulin] 100 unit/mL insulin pen 1 sliding scale dose subcut USEASDIRECTD Qty: 15 0RF prochlorperazine maleate 10 mg tablet 10 mg PO DAILY PRN (Reason: nausea) albuterol sulfate [Ventolin HFA] 90 mcg/actuation HFA aerosol inhaler 2 puff INHALATION Q4-6H PRN (Reason: Shortness Of Breath) oxycodone 5 mg tablet 10 mg PO TID PRN (Reason: severe pain) sevelamer carbonate 800 mg tablet 800 mg PO TID Qty: 90 2RF Rx Instructions: must administer with a meal/food atorvastatin 40 mg tablet 40 mg PO DAILY bupropion HCl 100 mg tablet sustained-release 12 hr 100 mg PO QAM pantoprazole 40 mg tablet,delayed release (DR/EC) 40 mg PO BID losartan 25 mg tablet 25 mg PO DAILY azithromycin 250 mg tablet 250 mg PO DAILY 4 Days Qty: 4 0RF Print Language: Turkish
--- NOTE | 2024-04-23 11:45 | ECG_ITS ---
Test Reason : DYSPNEA Blood Pressure : / mmHG Vent. Rate : 069 BPM Atrial Rate : 069 BPM P-R Int : 152 ms QRS Dur : 088 ms QT Int : 460 ms P-R-T Axes : 070 008 054 degrees QTc Int : 492 ms Normal sinus rhythm Minimal voltage criteria for LVH, may be normal variant ( Sokolow-Ribera ) Borderline ECG When compared with ECG of 21-FEB-2024 18:09, Nonspecific T wave abnormality now evident in Anterior leads Referred By: Raven Mayfield Electronically Signed By:HOA KLEIN
[2024-04-23 12:56] LABS: MANUAL DIFF FLAG NO
[2024-04-23 13:01] LABS: Basophils Absolute Auto 0.1 X10*3/uL (0.0-0.2); Basophils Percent Auto 1.2 % (0-2); Eosinophils Absolute Auto 0.9 X10*3/uL (0.0-0.4); Eosinophils Percent Auto 11.2 % (0-4); Hematocrit 30.9 % (42.0-52.0); Hemoglobin 10.8 g/dl (14.0-18.0); Imm Gran Abs Auto 0.02 X10*3/uL (0.00-0.03); Imm Gran Pct Auto 0.3 % (0.0-0.4); Lymphocytes Absolute Auto 1.3 X10*3/uL (1.2-4.9); Lymphocytes Percent Auto 16.7 % (20-40); Mean Corpuscular Volume 88.8 fL (80.0-98.0); Mean Platelet Volume 10.2 fL (9.4-12.4); Monocytes Absolute Auto 0.9 X10*3/uL (0.1-1.2); Monocytes Percent Auto 11.2 % (2-11); Neutrophils Absolute Auto 4.6 x10*3/uL (2.0-8.3); Neutrophils Percent Auto 59.4 % (45-73); Platelet Count 230 X10*3/uL (160-400); Red Blood Count 3.48 X10*6/uL (4.60-5.80); Red Cell Distribution Width 14.5 % (11.0-16.0); White Blood Count 7.7 X10*3/uL (4.8-10.8)
[2024-04-23 13:08] LABS: Prothrombin Time 12.3 SEC (11.1-13.3)
[2024-04-23 13:25] LABS: Alanine Aminotransferase 9 U/L (0-40); Albumin Level 4.4 g/dL (3.5-5.0); Alkaline Phosphatase 54 U/L (39-117); Anion Gap 17 (12-20); Aspartate Amino Transferase 16 U/L (5-37); Bilirubin Total 0.8 mg/dL (0.0-1.0); Blood Urea Nitrogen 15 mg/dL (9-16); Calcium 9.5 mg/dL (8.4-10.2); Carbon Dioxide 28 mmol/L (22-29); Chloride 98 mmol/L (96-108); Creatinine Clr Calc Pharmacy 11.3; Estimated Glomerular Filt Rate 10; Glucose Random 125 mg/dL (60-115); Lipase 21 U/L (8-78); Magnesium 2.2 mg/dL (1.6-2.6); Potassium 3.8 mmol/L (3.3-5.1); Sodium 139 mmol/L (135-145); Total Protein 7.1 g/dL (6.5-8.0)
[2024-04-23 13:27] LABS: B Type Natriuretic Peptide 3170 pg/mL (<100)
[2024-04-23 13:29] LABS: Troponin-I High Sensitivity 8.3 ng/L (<3.5-35.0)
--- NOTE | 2024-04-23 14:25 | P.HPHOSP_ITS ---
History of Present Illness Date of Service: 04/23/24 Chief Complaint: scrotal and right inguinal pain, nausea, sob 69M PMH ESRD, htn, dm, hypothryoid, mood disorder, bph, presented with 1 day severe scrotal and RLQ abd pain associated with nausea and vomiting, also reporting sob, worse on exertion, feels like he is drowning . no chest pain, no fevers, chills. last HD was day ptp. in ED cxr with some congestion. Review of Systems 2 Review of Systems: Yes all other systems are reviewed and are negative [facility] Medical History ESRD needing dialysis Secondary hyperparathyroidism (of renal origin) Anemia in chronic kidney disease DONIS (acute kidney injury) End stage renal disease on dialysis Diabetes Kidney failure HTN (hypertension) Social History Household Members: Spouse Housing: House Are you a primary nurse behavioral health care to a significant other at home: No Do you presently have visiting nurse or other home services: No Alcohol intake: never Comment: [place] RISK IN PLACE FOR O2 AND WEAKNESS REPORTED S/P HD TODAY Patient Tobacco Use Status: Never used Tobacco Cigarette Packs Per Day: 0 Cigarettes Per Day: 0.0 Years Smoked: NA e-Cigarette/Vaping Use: Never Used Second Hand Smoke Exposure: No Advance Directives: Yes Advance Directives on File: Yes Advance Directives Date on File: 09/07/23 Do you have a plan to hurt others: No Plan service: No Meds Allergies Allergy/AdvReac Type Severity Reaction Status Date / Time Penicillins [PENICILLINS] Allergy Unknown RASH Verified 04/23/24 11:43 tramadol [From ULTRAM] Allergy Unknown RASH Verified 04/23/24 11:43 trazodone [TRAZODONE] Allergy Unknown PRIAPISM Verified 04/23/24 11:43 risperidone [RISPERIDONE] AdvReac Severe dizzy, EPS Verified 04/23/24 11:43 Active Medications: Current Medications Acetaminophen (Acetaminophen 325 Mg Tablet) 650 mg PO Q6H PRN PRN Reason: Pain, Mild (Pain Scale 1-3), fever or headache Calcium Carbonate (Calcium Carbonate 750 Mg Tab.Chew) 750 mg PO Q4H PRN PRN Reason: Heartburn Glucose (Glucose Gel 15 Gm Gel..Gram.) 15 gm PO Q15M PRN; Protocol PRN Reason: per Hypoglycemia Standing Ord. Heparin Sodium (Porcine) (Heparin Sodium,Porcine 5,000 Unit/Ml Vial) 5,000 unit SUBCUT Q8H [facility] Dextrose (D10) 250 mls @ 750 mls/hr IV Q15M PRN; Protocol PRN Reason: per Hypoglycemia Standing Ord. Insulin Human Lispro (Insulin Lispro 100 Unit/Ml 3 Ml Vial) 0 unit SUBCUT QIDACHS [facility]; Protocol Magnesium Hydroxide (Milk Of Magnesia 30 Ml Oral.Susp) 30 ml PO DAILY PRN PRN Reason: Constipation Melatonin (Melatonin 3 Mg Tablet) 6 mg PO BEDTIME PRN PRN Reason: Insomnia Sodium Chloride (0.9 % Sodium Chloride Flush 3 Ml Syringe) 3 ml IVFLUSH [facility] Home Medications ?Medication ?Instructions ?Recorded ?Confirmed ?Last Taken ?Type atenolol 100 mg tablet 1 tab PO DAILY 07/11/21 02/22/24 02/21/24 History blood sugar diagnostic (FreeStyle 07/11/21 07/11/21 Unknown History Lite Strips) dextroamphetamine-amphetamine 20 1 tab PO DAILY 07/11/21 02/22/24 02/21/24 History mg tablet levothyroxine 137 mcg tablet 1 tab PO DAILY@0600 07/11/21 02/22/24 02/21/24 History pen needle, diabetic 31 gauge x 07/11/21 07/11/21 Unknown History 03/03 (BD Ultra-Fine Short Pen Needle) amlodipine 5 mg tablet 10 mg PO DAILY 09/03/23 11/04/23 11/04/23 History clonazepam 0.5 mg tablet 0.5 mg PO QID PRN Anxiety 09/03/23 02/22/24 02/21/24 History albuterol sulfate 90 mcg/actuation 2 puff inhalation Q4-6H PRN 10/29/23 02/22/24 Unknown History aerosol inhaler (Ventolin HFA) Shortness Of Breath oxycodone 5 mg tablet 10 mg PO TID PRN severe pain 10/29/23 02/22/24 02/21/24 History prochlorperazine maleate 10 mg 10 mg PO DAILY PRN nausea 10/29/23 02/22/24 Unknown History tablet atorvastatin 40 mg tablet 40 mg PO DAILY 02/22/24 02/22/24 02/21/24 History bupropion HCl 100 mg tablet,12 hr 100 mg PO QAM 02/22/24 02/22/24 02/21/24 History sustained-release losartan 25 mg tablet 25 mg PO DAILY 02/22/24 02/22/24 02/21/24 History pantoprazole 40 mg tablet,delayed 40 mg PO BID 02/22/24 02/22/24 02/21/24 History release Physical Exam 2 Vital Signs and Narrative: Vital Signs: Last Vital Signs Temp 96.7 F L 04/23/24 11:39 Pulse 67 04/23/24 11:39 Resp 22 H 04/23/24 11:39 BP 179/74 H 04/23/24 11:39 Pulse Ox 100 04/23/24 11:39 O2 Del Method Room Air 04/23/24 11:39 BMI result Body Mass Index 24.2 General: AO X 3, in pain Resp: CTA bilateral, no accessory muscles used CVS: S1,S2,RRR GI: soft, RLQ tender, non distended Neuro: motor grossly intact, alert Psych: appropriate affect, appropriate insight Results Labs 04/23/24 12:51 04/23/24 12:51 Labs: Laboratory Results - last 24 hr 04/23/24 12:51 MCV 88.8 MCH 31.0 MCHC 35.0 RDW 14.5 Plt Count 230 MPV 10.2 Immature Gran % (Auto) 0.3 Neut % (Auto) 59.4 Lymph % (Auto) 16.7 L [place] % (Auto) 11.2 H Eos % (Auto) 11.2 H Baso % (Auto) 1.2 Lymph # (Auto) 1.3 [place] # (Auto) 0.9 Eos # (Auto) 0.9 H Baso # (Auto) 0.1 Abs Immat Gran (auto) 0.02 Absolute Neuts (auto) 4.6 Absolute Nucleated RBC 0.000 Nucleated RBC % (auto) 0.0 PT 12.3 INR 1.0 Anion Gap 17 Estim Creat Clear Calc 11.3 Estimated GFR 10 Random Glucose 125 H Calcium 9.5 Magnesium 2.2 Total Bilirubin 0.8 AST 16 ALT 9 Alkaline Phosphatase 54 Troponin I High Sens 8.3 B-Natriuretic Peptide 3170 H Total Protein 7.1 Albumin 4.4 Lipase 21 Imaging Radiologist's Impressions: Impressions Chest X-Ray 04/23/24 12:31 IMPRESSION: 1. Indistinctness of the central pulmonary vasculature may reflect pulmonary venous congestion. 2. Trace bilateral pleural effusions. 3. Mild elevation of the right hemidiaphragm similar to prior. Assessment and Plan (1) End stage kidney disease: Status: Inactive Plan 69M PMH ESRD, htn, dm, hypothryoid, mood disorder, bph, presented with 1 day severe scrotal and RLQ abd pain associated with nausea and vomiting, also reporting sob n/v abd pain check ct abd, npo acute on chronic diastolic chf in patient with ESRD HD nephro hypothryoid synthroid dm insulin sliding scale htn amlodipine losartan atenolol mood disorder buproprion dvt prophylaxis - hep sq full code patient likely requires multiple session of HD to improve volume status, therefore expected to require atleast 2 midnights inpatient Quality Stroke Does the patient have a stroke diagnosis?: No VTE Prior VTE?: No VTE Risk Level:: Medical - moderate - high VTE Device Contraindication: Treatment Not Indicated VTE Drug Contraindication: N/A - Med Ordered
[2024-04-23] MEDS: Diatrizoate Meglumine, Sodium 30 ML SOLUTION PO (14:32)
--- NOTE | 2024-04-23 15:10 | PC.NURSE ---
pt to dialysis at this time.
--- NOTE | 2024-04-23 18:50 | PC.NURSE ---
pt returned from dialysis/requesting to leave immediately. provider requesting for access to be discontinued/for him to be wheeled out by wheelchair w/ his . admitting provider notified/aware.
--- NOTE | 2024-04-23 18:56 | PC.NURSE ---
pt refused to stay for admission. states he is feeling much better after dialysis. pt had another staff member retrieve wheelchair/take out IV. pt signed AMA form. pt left facility w/ .
[2024-04-23 18:59] VITALS: BP 0/0; PULSE 0; RESP 0; TEMP -17.7; TEMP 0; O2SAT 0
--- NOTE | 2024-04-24 06:47 | P.DS_ITS ---
DS: Providers Provider Date of Service: 04/23/24 Primary care physician: Matias Tan MD Consults: 04/23/24 14:00 Consult to Nephrology Routine Consulting Provider: [facility] Reason for consultation: esrd DS: Diagnosis Discharge Diagnosis (1) End stage kidney disease: Status: Inactive DS: Summary Hospital Course Hospital Course: from initial hpi: 69M PMH ESRD, htn, dm, hypothryoid, mood disorder, bph, presented with 1 day severe scrotal and RLQ abd pain associated with nausea and vomiting, also reporting sob, worse on exertion, feels like he is drowning . no chest pain, no fevers, chills. last HD was day ptp. in ED cxr with some congestion. hospital course: Patient was admitted for acute on chronic diastolic CHF in a patient with end- stage renal disease he underwent hemodialysis. He also had nausea vomiting and abdominal pain. There was concern for obstruction with history of inguinal hernia. CT abdomen was ordered to rule this out, however, patient eloped without being seen after hemodialysis. Other treated medical conditions include hypothyroid, diabetes, hypertension, mood disorder. Time Attestation Discharge Coordination Time (in mins): 10 Quality: Safe Use of Opioids Does Pt have an Active Cancer Diagnosis on the Problem List?: No Quality: Stroke Does the patient have a stroke diagnosis?: No Physical Exam Vital Signs: Vital Signs: Last Vital Signs Temp 0 F L 04/23/24 18:59 Pulse 0 L 04/23/24 18:59 Resp 0 L 04/23/24 18:59 BP 0/0 L 04/23/24 18:59 Pulse Ox 0 L 04/23/24 18:59 O2 Del Method Room Air 04/23/24 11:39 O2 Flow Rate 0 04/23/24 18:59 BMI result Body Mass Index 24.2 DS: Data Data Completed and Pending Completed studies during hospitalization [Text1]: Procedures Assistance with Respiratory Ventilation, Less than 24 Consecutive Hours, Continuous Positive Airway Pressure (11/04/23) Performance of Urinary Filtration, Intermittent, Less than 6 Hours Per Day (02/21/24) Labs on day of discharge: Laboratory Results - last 24 hr 04/23/24 12:51 WBC 7.7 RBC 3.48 L Hgb 10.8 L Hct 30.9 L MCV 88.8 MCH 31.0 MCHC 35.0 RDW 14.5 Plt Count 230 MPV 10.2 Immature Gran % (Auto) 0.3 Neut % (Auto) 59.4 Lymph % (Auto) 16.7 L [place] % (Auto) 11.2 H Eos % (Auto) 11.2 H Baso % (Auto) 1.2 Lymph # (Auto) 1.3 [place] # (Auto) 0.9 Eos # (Auto) 0.9 H Baso # (Auto) 0.1 Abs Immat Gran (auto) 0.02 Absolute Neuts (auto) 4.6 Absolute Nucleated RBC 0.000 Nucleated RBC % (auto) 0.0 PT 12.3 INR 1.0 Sodium 139 Potassium 3.8 D Chloride 98 Carbon Dioxide 28 Anion Gap 17 BUN 15 Creatinine 5.45 H* Estim Creat Clear Calc 11.3 Estimated GFR 10 Random Glucose 125 H Calcium 9.5 Magnesium 2.2 Total Bilirubin 0.8 AST 16 ALT 9 Alkaline Phosphatase 54 Troponin I High Sens 8.3 B-Natriuretic Peptide 3170 H Total Protein 7.1 Albumin 4.4 Lipase 21 Discharge Plan Discharge Clinical Impression: Dyspnea, End stage kidney disease Patient Disposition: Home, Self-Care Prescriptions: No Action levothyroxine 137 mcg tablet 1 tab PO DAILY@0600 atenolol 100 mg tablet 1 tab PO DAILY (DME) FreeStyle Lite Strips Strip MISCELLANEOUS TID dextroamphetamine-amphetamine 20 mg tablet 1 tab PO DAILY (DME) pen needle, diabetic [BD Ultra-Fine Short Pen Needle] 31 gauge x 5/16 needle subcut DAILY clonazepam 0.5 mg tablet 0.5 mg PO QID PRN (Reason: Anxiety) amlodipine 5 mg tablet 10 mg PO DAILY insulin lispro [Humalog KwikPen Insulin] 100 unit/mL insulin pen 1 sliding scale dose subcut USEASDIRECTD Qty: 15 0RF prochlorperazine maleate 10 mg tablet 10 mg PO DAILY PRN (Reason: nausea) albuterol sulfate [Ventolin HFA] 90 mcg/actuation HFA aerosol inhaler 2 puff INHALATION Q4-6H PRN (Reason: Shortness Of Breath) oxycodone 5 mg tablet 10 mg PO TID PRN (Reason: severe pain) sevelamer carbonate 800 mg tablet 800 mg PO TID Qty: 90 2RF Rx Instructions: must administer with a meal/food atorvastatin 40 mg tablet 40 mg PO DAILY bupropion HCl 100 mg tablet sustained-release 12 hr 100 mg PO QAM pantoprazole 40 mg tablet,delayed release (DR/EC) 40 mg PO BID losartan 25 mg tablet 25 mg PO DAILY azithromycin 250 mg tablet 250 mg PO DAILY 4 Days Qty: 4 0RF Stand Alone Forms: Against Medical Advice Interventions: ED Discharge Assessment Last Done: 04/23/24 18:59 Discharge Date/Time: 04/23/24 19:00 Print Language: Indonesian
== END 2024-04-23 19:00 | disposition home or self-care (01) ==
PROVIDERS: Physician Assistant Medical; Emergency Provider Emergency Medicine; PCP Family Medicine
DX: R06.00 Dyspnea, unspecified (principal); E11.22 Type 2 diabetes mellitus with diabetic chronic kidney disease; I12.0 Hypertensive chronic kidney disease with stage 5 chronic kidney disease or end stage renal disease; N18.6 End stage renal disease; Z99.2 Dependence on renal dialysis; D63.1 Anemia in chronic kidney disease; R06.02 Shortness of breath; Z53.29 Procedure and treatment not carried out because of patient's decision for other reasons
CPT/HCPCS: 36415; 71046; 80053; 83690; 83735; 83880; 84484; 85025; 85610; 90999; 93005; 99283; 99285

== ENCOUNTER → 2024-04-23 11:45 | Outpatient (BNV) | payer MEDICARE, SELFPAY | PROVIDERS: Emergency Provider Emergency Medicine; PCP Family Medicine; Visit Provider Internal Medicine | DX: R06.00 Dyspnea, unspecified (principal) | CPT/HCPCS: 93010 ==

== ENCOUNTER → 2024-04-23 12:45 | Outpatient (BNV) | payer MEDICARE, SELFPAY | PROVIDERS: Emergency Provider Emergency Medicine; PCP Family Medicine; Visit Provider Internal Medicine | DX: N18.6 End stage renal disease (principal); R06.00 Dyspnea, unspecified | CPT/HCPCS: 99283 ==

== ENCOUNTER 2024-06-19 03:07 | Inpatient (IN) | payer MEDICARE, SELFPAY ==
[2024-06-19] VITALS (9 sets, daily range): BP systolic 141–175; BP diastolic 58–81; PULSE 58–71; RESP 15–20; TEMP 36–36.8; O2SAT 88–100; BMI 22.7
--- NOTE | ~2024-06-19 | XR_ITS ---
EXAMINATION: XR CHEST CLINICAL INFORMATION: Dyspnea. COMPARISON: April 23, 2024. TECHNIQUE: 2 views of the chest were obtained. FINDINGS: The cardiomediastinal silhouette is stable. There is blunting of the costophrenic angles. There is no focal parenchymal consolidation. The bony structures and soft tissues are unremarkable. XR/XR chest 2V IMPRESSION: Blunting of the costophrenic angles possibly small pleural effusion. No focal parenchymal consolidation. Electronically signed by: Fredrick Rios MD 06/19/2024 04:17 AM EDT
--- NOTE | 2024-06-19 03:21 | ECG_ITS ---
Test Reason : DYSPNEA Blood Pressure : / mmHG Vent. Rate : 073 BPM Atrial Rate : 073 BPM P-R Int : 144 ms QRS Dur : 084 ms QT Int : 432 ms P-R-T Axes : 057 010 028 degrees QTc Int : 475 ms Normal sinus rhythm Normal ECG When compared with ECG of 23-APR-2024 12:35, Nonspecific T wave abnormality no longer evident in Anterior leads Referred By: Generic ED Physician Electronically Signed By:MAO KATHLEEN
--- NOTE | 2024-06-19 03:46 | MHC.EDTECH ---
ekg delayed due to pt being with x-ray
[2024-06-19 04:27] LABS: Basophils Absolute Auto 0.1 X10*3/uL (0.0-0.2); Basophils Percent Auto 0.8 % (0-2); Eosinophils Absolute Auto 0.9 X10*3/uL (0.0-0.4); Eosinophils Percent Auto 7.7 % (0-4); Hemoglobin 9.6 g/dl (14.0-18.0); Imm Gran Abs Auto 0.04 X10*3/uL (0.00-0.03); Imm Gran Pct Auto 0.3 % (0.0-0.4); Lymphocytes Absolute Auto 1.3 X10*3/uL (1.2-4.9); Lymphocytes Percent Auto 10.8 % (20-40); MANUAL DIFF FLAG NO; Mean Corpuscular HGB Conc 34.3 g/dl (31.0-36.0); Mean Corpuscular Hemoglobin 31.6 pg (27.0-33.0); Mean Corpuscular Volume 92.1 fL (80.0-98.0); Mean Platelet Volume 9.3 fL (9.4-12.4); Monocytes Absolute Auto 1.1 X10*3/uL (0.1-1.2); Monocytes Percent Auto 9.6 % (2-11); Neutrophils Absolute Auto 8.3 x10*3/uL (2.0-8.3); Neutrophils Percent Auto 70.8 % (45-73); Platelet Count 251 X10*3/uL (160-400); Red Blood Count 3.04 X10*6/uL (4.60-5.80); Red Cell Distribution Width 15.9 % (11.0-16.0); White Blood Count 11.7 X10*3/uL (4.8-10.8)
[2024-06-19 04:46] LABS: Alanine Aminotransferase 13 U/L (0-40); Albumin Level 4.2 g/dL (3.5-5.0); Alkaline Phosphatase 72 U/L (39-117); Anion Gap 19 (12-20); Aspartate Amino Transferase 17 U/L (5-37); B Type Natriuretic Peptide 2829 pg/mL (<100); Bilirubin Total 0.7 mg/dL (0.0-1.0); Blood Urea Nitrogen 29 mg/dL (9-16); Calcium 9.2 mg/dL (8.4-10.2); Carbon Dioxide 27 mmol/L (22-29); Chloride 96 mmol/L (96-108); Creatinine Clr Calc Pharmacy 8.6; Estimated Glomerular Filt Rate 7; Glucose Random 150 mg/dL (60-115); Potassium 5.2 mmol/L (3.3-5.1); Sodium 137 mmol/L (135-145)
[2024-06-19 04:49] LABS: Troponin-I High Sensitivity 6.7 ng/L (<3.5-35.0)
--- NOTE | 2024-06-19 04:49 | ED.SOB ---
HPI - SOB/Dyspnea General Chief Complaint: Dyspnea Stated Complaint: end stage renal disease , difficulty breathing Time Seen by Provider: 06/19/24 04:47 Source: patient and family Mode of arrival: EMS Limitations: no limitations History of Present Illness ED Provider: joseluis ARAGON Narrative: Patient's history of end-stage renal disease on dialysis for last 2 years last dialysis was on 06/17 started having increased shortness of breath since last night was saturating 89% prior to arrival patient feels no air in the lung no chest pain no leg pain or swelling patient does make very small amount of urine in the ER patient has desaturated to 85% at room air patient is admitted [facility] from 05/26 till 06/03 with pneumonia and hypoxia Related Data Home Medications ?Medication ?Instructions ?Recorded ?Confirmed atenolol 100 mg tablet 1 tab PO DAILY 07/11/21 02/22/24 blood sugar diagnostic (FreeStyle 07/11/21 07/11/21 Lite Strips) dextroamphetamine-amphetamine 20 1 tab PO DAILY 07/11/21 02/22/24 mg tablet levothyroxine 137 mcg tablet 1 tab PO DAILY@0600 07/11/21 02/22/24 pen needle, diabetic 31 gauge x 07/11/21 07/11/2103/03 (BD Ultra-Fine Short Pen Needle) amlodipine 5 mg tablet 10 mg PO DAILY 09/03/23 11/04/23 clonazepam 0.5 mg tablet 0.5 mg PO QID PRN Anxiety 09/03/23 02/22/24 albuterol sulfate 90 mcg/actuation 2 puff inhalation Q4-6H PRN 10/29/23 02/22/24 aerosol inhaler (Ventolin HFA) Shortness Of Breath oxycodone 5 mg tablet 10 mg PO TID PRN severe pain 10/29/23 02/22/24 prochlorperazine maleate 10 mg 10 mg PO DAILY PRN nausea 10/29/23 02/22/24 tablet atorvastatin 40 mg tablet 40 mg PO DAILY 02/22/24 02/22/24 bupropion HCl 100 mg tablet,12 hr 100 mg PO QAM 02/22/24 02/22/24 sustained-release losartan 25 mg tablet 25 mg PO DAILY 02/22/24 02/22/24 pantoprazole 40 mg tablet,delayed 40 mg PO BID 02/22/24 02/22/24 release hydromorphone 4 mg tablet 4 mg PO Q4H PRN pain 06/19/24 06/19/24 Previous Rx's ?Medication ?Instructions ?Recorded insulin lispro 100 unit/mL 1 sliding scale dose subcut 09/05/23 subcutaneous pen (Humalog KwsaloniPen USEASDIRECTD #15 mL (U-100) Insulin) sevelamer carbonate 800 mg tablet 800 mg PO TID #90 tabs 10/31/23 azithromycin 250 mg tablet 250 mg PO DAILY 4 days #4 tabs 02/23/24 Allergies Allergy/AdvReac Type Severity Reaction Status Date / Time Penicillins [PENICILLINS] Allergy Unknown RASH Verified 06/19/24 03:19 tramadol [From ULTRAM] Allergy Unknown RASH Verified 06/19/24 03:19 trazodone [TRAZODONE] Allergy Unknown PRIAPISM Verified 06/19/24 03:19 risperidone [RISPERIDONE] AdvReac Severe dizzy, EPS Verified 06/19/24 03:19 Review of Systems Review of Systems: Yes all other systems are reviewed and are negative [facility] Past Medical History Medical History (Updated 06/19/24 @ 06:51 by Nathan Cuenca MD) End stage kidney disease ESRD needing dialysis Secondary hyperparathyroidism (of renal origin) Anemia in chronic kidney disease DONIS (acute kidney injury) End stage renal disease on dialysis Diabetes Kidney failure HTN (hypertension) Social History Social History Household Members: Spouse Housing: House Are you a primary progressive care nurse to a significant other at home: No Do you presently have visiting nurse or other home services: No Alcohol intake: never Comment: [place] RISK IN PLACE FOR O2 AND WEAKNESS REPORTED S/P HD TODAY Patient Tobacco Use Status: Never used Tobacco Cigarette Packs Per Day: 0 Cigarettes Per Day: 0.0 Years Smoked: NA Smoked in Last 30 Days: No e-Cigarette/Vaping Use: Never Used Second Hand Smoke Exposure: No Use of substances other than those prescribed or required for medical reasons: No Advance Directives: Yes Advance Directives on File: Yes Advance Directives Date on File: 09/07/23 Do you have a plan to hurt others: No Plan service: No Physical Exam Vital Signs: Vital Signs: Last Vital Signs Temp 98.3 F 09/01/24 06:24 Pulse 64 06/19/24 06:24 Resp 15 06/19/24 06:24 BP 141/58 H 06/19/24 06:24 Pulse Ox 97 06/19/24 06:24 O2 Del Method Oxymask 06/19/24 06:24 O2 Flow Rate 12 06/19/24 06:24 BMI result Body Mass Index 22.7 Appearance: Alert. Oriented X3. No acute distress. Eyes: PERRLA, No Nystagmus ENT: Pharynx normal. Oral Mucosa moist Neck: Normal inspection. Neck supple. CVS: Normal heart rate and rhythm. Pulses normal. Respiratory: No respiratory distress. Equal air entry bilateral, bilateral fine crackles posteriorly Abdomen: Soft and nontender. Bowel sounds are present, no mass palpable, Skin: Skin warm and dry. Normal skin color. Normal skin turgor. Extremities: No lower extremity edema. No calf tenderness Neuro: Oriented X 3. No motor deficit. Medications Administered Discontinued Medications Generic Name Dose Route Start Last Admin Trade Name Jamq PRN Reason Stop Dose Admin Furosemide 100 mg 06/19/24 05:01 06/19/24 05:09 Furosemide 100 Mg/10 Ml Vial IVPUSH 06/19/24 05:02 100 mg ONCE ONE Administration Protocol Hydromorphone HCl 2 mg 06/19/24 05:34 06/19/24 05:37 Hydromorphone Hcl 2 Mg/Ml Vial IVPUSH 06/19/24 05:35 2 mg ONCE ONE Administration Protocol Ondansetron HCl 4 mg 06/19/24 05:34 06/19/24 05:37 Ondansetron Hcl 4 Mg/2 Ml Vial IVPUSH 06/19/24 05:35 4 mg ONCE ONE Administration Medical Decision Making Medical Decision Making [facility] Narrative: Patient clinically with fluid overload with end-stage renal disease desaturated to 85% at room air when laid flat give a dose of 100 mg Lasix cause Nephro for dialysis in a.m. Differential Diagnosis Differential Diagnoses: The differential diagnosis associated with the presentation includes Admission/Observation Consideration of admission/observation: Escalation of care including admission/observation considered Consult Healthcare Provider Management of the patient was discussed with: Hospitalist Lab Data [facility] Lab Attestation statement: I reviewed the patient's lab results. 06/19/24 04:22 06/19/24 04:22 Labs: Lab Results 06/19/24 06/19/24 Range/Units 04:22 05:31 WBC 11.7 H (4.8-10.8) X10*3/uL RBC 3.04 L (4.60-5.80) X10*6/uL Hgb 9.6 L (14.0-18.0) g/dl Hct 28.0 L (42.0-52.0) % MCV 92.1 (80.0-98.0) fL MCH 31.6 (27.0-33.0) pg MCHC 34.3 (31.0-36.0) g/dl RDW 15.9 (11.0-16.0) % Plt Count 251 (160-400) X10*3/uL MPV 9.3 L (9.4-12.4) fL Immature Gran % (Auto) 0.3 (0.0-0.4) % Neut % (Auto) 70.8 (45-73) % Lymph % (Auto) 10.8 L (20-40) % [place] % (Auto) 9.6 (2-11) % Eos % (Auto) 7.7 H (0-4) % Baso % (Auto) 0.8 (0-2) % Lymph # (Auto) 1.3 (1.2-4.9) X10*3/uL [place] # (Auto) 1.1 (0.1-1.2) X10*3/uL Eos # (Auto) 0.9 H (0.0-0.4) X10*3/uL Baso # (Auto) 0.1 (0.0-0.2) X10*3/uL Abs Immat Gran (auto) 0.04 H (0.00-0.03) X10*3/uL Absolute Neuts (auto) 8.3 (2.0-8.3) x10*3/uL Absolute Nucleated RBC 0.000 (0.0-0.012) X10*3/uL Nucleated RBC % (auto) 0.0 (0.0-0.2) /100WBC Sodium 137 (135-145) mmol/L Potassium 5.2 H D (3.3-5.1) mmol/L Chloride 96 (96-108) mmol/L Carbon Dioxide 27 (22-29) mmol/L Anion Gap 19 (12-20) BUN 29 H (9-16) mg/dL Creatinine 7.41 H* (0.5-1.4) mg/dL Estim Creat Clear Calc 8.6 Estimated GFR 7 Random Glucose 150 H (60-115) mg/dL Calcium 9.2 (8.4-10.2) mg/dL Total Bilirubin 0.7 (0.0-1.0) mg/dL AST 17 (5-37) U/L ALT 13 (0-40) U/L Alkaline Phosphatase 72 (39-117) U/L Troponin I High Sens 6.7 (<3.5-35.0) ng/L B-Natriuretic Peptide 2829 H (<100) pg/mL Total Protein 7.0 (6.5-8.0) g/dL Albumin 4.2 (3.5-5.0) g/dL Influenza Type A (PCR) NEGATIVE (Negative) Influenza Type B (PCR) NEGATIVE (Negative) RSV RNA Qual (PCR) NEGATIVE (Negative) SARS-CoV-2 RNA (RT-PCR) NEGATIVE (Negative) Independent Interpretation I performed an independent interpretation of an: EKG and Plain X-Ray Interpretation: Normal sinus rhythm heart rate 73 beats per minute normal interval normal axis no acute ST-T changes no acute ischemia Radiology Impression Discussion of test interpretation with radiology: I have reviewed the radiologist's reading. Discharge Plan Discharge Clinical Impression: End stage chronic kidney disease, CHF (congestive heart failure), Hypoxia Patient Disposition: Admitted As Inpatient
[2024-06-19] MEDS: Furosemide 100 MG/10 ML VIAL IVPUSH (05:09)
[2024-06-19] MEDS: HYDROmorphone HCl 2 MG/ML VIAL IVPUSH (05:37)
[2024-06-19] MEDS: ondansetron HCL 4 MG/2 ML VIAL IVPUSH (05:37)
[2024-06-19 06:11] LABS: Influenza A PCR NEGATIVE (Negative); Influenza B PCR NEGATIVE (Negative); Resp Syncy Virus RNA Qual PCR NEGATIVE (Negative); SARS COV2 PCR INHOUSE NEGATIVE (Negative)
--- NOTE | 2024-06-19 06:38 | W.PM.DNNEP ---
Subjective Subjective Date of Service: 06/19/24 This patient was seen during dialysis. Physical Exam Vital Signs: Vital Signs: Last Vital Signs Temp 98.3 F 06/19/24 06:24 Pulse 64 06/19/24 06:24 Resp 15 06/19/24 06:24 BP 141/58 H 06/19/24 06:24 Pulse Ox 97 06/19/24 06:24 O2 Del Method Oxymask 06/19/24 06:24 O2 Flow Rate 12 06/19/24 06:24 BMI result Body Mass Index 22.7 Assessment & Plan Assessment and plan (1) ESRD needing dialysis: Status: Inactive Plan Patient presented with fluid overload For dialysis 2 hours today K per protocol UF 2.5-3 liters Heparin free Calcium 2.5 Blood flow 400 Dialysate flow 600 Use 25% albumin for blood pressure<90 Time Spent With Patient Time: Total time managing care of this patient today ____ minutes. Procedures Date of Service Date of Service: 06/19/24
--- NOTE | 2024-06-19 07:09 | PC.NURSE ---
report received from previous RN, patient resting comfortably on stretcher, remains on oxymask at this time, remains on monitor, complaining of some itching but states that's chronic for him, oxygenating well at this time, awaiting admit orders.
--- NOTE | 2024-06-19 07:50 | PM.IMHP ---
History of Present Illness Date of Service: 06/19/24 Chief Complaint: sob 69M PMH ESRD, htn, dm, hypothryoid, mood disorder, bph, chronic diastolic chf, presented with sob. Patient recently discharged from [facility] [place] [place] after hospitalization for pneumonia and CHF, was dialyzed and given antibiotics and was feeling better. Has been home for about 2 weeks, last dialyzed 2 days prior to presentation. Since then has been having worsening shortness of breath, positive orthopnea, worse on exertion, denies chest pain, fever, chills, cough. Has not noticed any weight gain or swelling. In ED became hypoxic when laid down for EJ, chest x-ray unremarkable except for small bilateral pleural effusions. Review of Systems Review of Systems: Yes all other systems are reviewed and are negative [facility] Medical History End stage kidney disease ESRD needing dialysis Secondary hyperparathyroidism (of renal origin) Anemia in chronic kidney disease DONIS (acute kidney injury) End stage renal disease on dialysis Diabetes Kidney failure HTN (hypertension) Social History Household Members: Spouse Housing: House Are you a primary nurse care manager to a significant other at home: No Do you presently have visiting nurse or other home services: No Alcohol intake: never Comment: [place] RISK IN PLACE FOR O2 AND WEAKNESS REPORTED S/P HD TODAY Patient Tobacco Use Status: Never used Tobacco Cigarette Packs Per Day: 0 Cigarettes Per Day: 0.0 Years Smoked: NA Smoked in Last 30 Days: No e-Cigarette/Vaping Use: Never Used Second Hand Smoke Exposure: No Use of substances other than those prescribed or required for medical reasons: No Advance Directives: Yes Advance Directives on File: Yes Advance Directives Date on File: 09/07/23 Do you have a plan to hurt others: No Plan service: No Meds Allergies Allergy/AdvReac Type Severity Reaction Status Date / Time Penicillins [PENICILLINS] Allergy Unknown RASH Verified 06/19/24 03:19 tramadol [From ULTRAM] Allergy Unknown RASH Verified 06/19/24 03:19 trazodone [TRAZODONE] Allergy Unknown PRIAPISM Verified 06/19/24 03:19 risperidone [RISPERIDONE] AdvReac Severe dizzy, EPS Verified 06/19/24 03:19 Active Medications: Current Medications Acetaminophen (Acetaminophen 325 Mg Tablet) 650 mg PO Q6H PRN PRN Reason: Pain, Mild (Pain Scale 1-3), fever or headache Calcium Carbonate (Calcium Carbonate 750 Mg Tab.Chew) 750 mg PO Q4H PRN PRN Reason: Heartburn Heparin Sodium (Porcine) (Heparin Sodium,Porcine 5,000 Unit/Ml Vial) 5,000 unit SUBCUT Q8H [facility] Magnesium Hydroxide (Milk Of Magnesia 30 Ml Oral.Susp) 30 ml PO DAILY PRN PRN Reason: Constipation Melatonin (Melatonin 3 Mg Tablet) 6 mg PO BEDTIME PRN PRN Reason: Insomnia Sodium Chloride (0.9 % Sodium Chloride Flush 3 Ml Syringe) 3 ml IVFLUSH QSHIFT [facility] Home Medications ?Medication ?Instructions ?Recorded ?Confirmed ?Last Taken ?Type atenolol 100 mg tablet 1 tab PO DAILY 07/11/21 02/22/24 02/21/24 History blood sugar diagnostic (FreeStyle 07/11/21 07/11/21 Unknown History Lite Strips) dextroamphetamine-amphetamine 20 1 tab PO DAILY 07/11/21 02/22/24 02/21/24 History mg tablet levothyroxine 137 mcg tablet 1 tab PO DAILY@0600 07/11/21 02/22/24 02/21/24 History pen needle, diabetic 31 gauge x 07/11/21 07/11/21 Unknown History 03/03 (BD Ultra-Fine Short Pen Needle) amlodipine 5 mg tablet 10 mg PO DAILY 09/03/23 11/04/23 11/04/23 History clonazepam 0.5 mg tablet 0.5 mg PO QID PRN Anxiety 09/03/23 02/22/24 02/21/24 History albuterol sulfate 90 mcg/actuation 2 puff inhalation Q4-6H PRN 10/29/23 02/22/24 Unknown History aerosol inhaler (Ventolin HFA) Shortness Of Breath oxycodone 5 mg tablet 10 mg PO TID PRN severe pain 10/29/23 02/22/24 02/21/24 History prochlorperazine maleate 10 mg 10 mg PO DAILY PRN nausea 10/29/23 02/22/24 Unknown History tablet atorvastatin 40 mg tablet 40 mg PO DAILY 02/22/24 02/22/24 02/21/24 History bupropion HCl 100 mg tablet,12 hr 100 mg PO QAM 02/22/24 02/22/24 02/21/24 History sustained-release losartan 25 mg tablet 25 mg PO DAILY 02/22/24 02/22/24 02/21/24 History pantoprazole 40 mg tablet,delayed 40 mg PO BID 02/22/24 02/22/24 02/21/24 History release hydromorphone 4 mg tablet 4 mg PO Q4H PRN pain 06/19/24 06/19/24 Unknown History Physical Exam Vital Signs and Narrative: Vital Signs: Last Vital Signs Temp 98.3 F 06/19/24 06:24 Pulse 64 06/19/24 06:24 Resp 15 06/19/24 06:24 BP 141/58 H 06/19/24 06:24 Pulse Ox 97 06/19/24 06:24 O2 Del Method Oxymask 06/19/24 06:24 O2 Flow Rate 12 06/19/24 06:24 BMI result Body Mass Index 22.7 General: AO X 3, no acute distress Resp: CTA bilateral, no accessory muscles used CVS: S1,S2,RRR GI: soft, non tender, non distended Neuro: motor grossly intact, alert Psych: appropriate affect, appropriate insight Results Labs 06/19/24 04:22 06/19/24 04:22 Labs: Laboratory Results - last 24 hr 06/19/24 06/19/24 04:22 05:31 MCV 92.1 MCH 31.6 MCHC 34.3 RDW 15.9 Plt Count 251 MPV 9.3 L Immature Gran % (Auto) 0.3 Neut % (Auto) 70.8 Lymph % (Auto) 10.8 L Tompkins % (Auto) 9.6 Eos % (Auto) 7.7 H Baso % (Auto) 0.8 Lymph # (Auto) 1.3 Tompkins # (Auto) 1.1 Eos # (Auto) 0.9 H Baso # (Auto) 0.1 Abs Immat Gran (auto) 0.04 H Absolute Neuts (auto) 8.3 Absolute Nucleated RBC 0.000 Nucleated RBC % (auto) 0.0 Anion Gap 19 Estim Creat Clear Calc 8.6 Estimated GFR 7 Random Glucose 150 H Calcium 9.2 Total Bilirubin 0.7 AST 17 ALT 13 Alkaline Phosphatase 72 Troponin I High Sens 6.7 B-Natriuretic Peptide 2829 H Total Protein 7.0 Albumin 4.2 Influenza Type A (PCR) NEGATIVE Influenza Type B (PCR) NEGATIVE RSV RNA Qual (PCR) NEGATIVE SARS-CoV-2 RNA (RT-PCR) NEGATIVE Imaging Radiologist's Impressions: Impressions Chest X-Ray 06/19/24 03:25 IMPRESSION: Blunting of the costophrenic angles possibly small pleural effusion. No focal parenchymal consolidation. Electronically signed by: Fredrick Rios MD 06/19/2024 04:17 AM EDT RP Assessment and Plan (1) Hypoxia: Status: Acute Plan 69M PMH ESRD, htn, dm, hypothryoid, mood disorder, bph, chronic diastolic chf, presented with sob Acute hypoxic respiratory failure secondary to acute on chronic diastolic CHF in a patient with end-stage renal disease Wean O2 as tolerated, hemodialysis, patient anuric Nephrology eval Hypertension Continue atenolol, losartan, amlodipine Hypothyroid Continue levothyroxine Diabetes Continue insulin sliding scale Mood disorder Continue bupropion, lorazepam as needed End-stage renal disease Continue hemodialysis, phosphate binders DVT prophylaxis with heparin subQ Full code Patient with significant hypoxia needing high levels of O2 and hemodialysis therefore expected require at least 2 midnights inpatient Quality Stroke Does the patient have a stroke diagnosis?: No VTE Prior VTE?: No VTE Risk Level:: Medical - moderate - high VTE Device Contraindication: Treatment Not Indicated VTE Drug Contraindication: N/A - Med Ordered
--- NOTE | 2024-06-19 08:30 | PC.NURSE ---
patient to dialysis on monitor at this time
--- NOTE | 2024-06-19 09:14 | PHA.MEDREC ---
Addendum entered by Bora White [facility] 06/19/24 16:28: MED REC CHECKED BY [facility] Addendum entered by Liban Childress 06/19/24 15:56: Patient reports using lokelma 1 packet daily on non dialysis days Addendum entered by Liban Childress 06/19/24 15:51: call center dispatcher [facility] said patient has not filled with their pharmacy in over a year and a half. The [facility] said he was able to see a written list on his profile that had loklema 10 gm (but no claims). is aware and wants to keep sevelamer and lokelma on med list. Will keep vitamin D since its OTC. Addendum entered by Imani Walker [facility] 06/19/24 09:30: Med rec was reviewed by [facility]. Dr. Villanueva is aware that we're trying to contact the patient's dialysis center pharmacy to confirm rx that he fills there. Original Note: Pharmacy Consult ? Medication Reconciliation Pharmacy has completed the medication reconciliation. Spoke with patient to confirm medications. He confirms adderall 20 mg TID, he is no longer taking the 10 mg. His hydromorphone and lorazepam are scheduled (switched from clonazepam), oxycodone is as needed for breakthrough pain. He takes pantoprazole once daily. He takes 2 of his 5 mg amlodipine tabs daily. He stopped taking bupropion a few months ago. He has not needed to use his humalog lately, he uses it maybe twice a month but has it at home as needed. He does get prescriptions in the mail from his dialysis center ([facility]) that are not showing on claims. He gets sevelamer, lokelma packets, a vitamin D, and a specific multivitamin for kidney care. I am trying to get in contact with an section leader screen printing pharmacist to confirm doses and frequency. Will update med rec if I can get a hold of someone. He also uses a benzocaine cream before dialysis and a steroid cream as needed for his rash but unable to find name and strength in claims. He took his maintenance medications yesterday including the oxycodone.
[2024-06-19 11:48] LABS: Glucose, Whole Blood 124 mg/dL (60-115)
[2024-06-19] MEDS: LORazepam 1 MG TABLET PO ×2 (15:12→20:06)
[2024-06-19] MEDS: oxyCODONE HCl Immed Release 5 MG TABLET 10 MG PO (15:12)
[2024-06-19] MEDS: Heparin Sodium,Porcine 5,000 UNIT/ML VIAL 5000 UNIT SUBCUT (15:13)
[2024-06-19 16:00] LABS: Glucose, Whole Blood 140 mg/dL (60-115)
[2024-06-19] MEDS: amLODIPine Besylate 10 MG TABLET PO (16:42)
[2024-06-19] MEDS: Losartan Potassium 25 MG TABLET PO (16:42)
[2024-06-19] MEDS: Sevelamer Carbonate Tablet 800 MG TABLET PO (16:59)
[2024-06-19 20:38] LABS: Glucose, Whole Blood 132 mg/dL (60-115)
[2024-06-19] MEDS: 0.9 % Sodium Chloride Flush 3 ML SYRINGE IVFLUSH (20:57)
[2024-06-19] MEDS: Sodium Zirconium Cyclosilicate 10 GM POWD.PACK PO (21:03)
[2024-06-20] MEDS: Heparin Sodium,Porcine 5,000 UNIT/ML VIAL 5000 UNIT SUBCUT ×2 (01:19→10:15)
[2024-06-20 04:00] VITALS: BP 152/72; PULSE 63; RESP 18; TEMP 36.8; O2SAT 97
[2024-06-20] MEDS: Levothyroxine Sodium 112 MCG TABLET PO (05:51)
[2024-06-20] MEDS: Levothyroxine Sodium 25 MCG TABLET PO (05:51)
[2024-06-20] MEDS: Omeprazole 20 MG CAPSULE.DR PO (05:52)
[2024-06-20 07:43] LABS: Glucose, Whole Blood 84 mg/dL (60-115)
--- NOTE | 2024-06-20 08:49 | PC.NURSE ---
Addendum entered by Anil Lewis RN 06/20/24 10:27: pt refused adderall stating it makes his pain worse Original Note: pt at dialysis this AM
--- NOTE | 2024-06-20 10:12 | HO.PM.IMPN ---
Subjective Subjective Date of Service: 06/20/24 Interval History: improved Physical Exam Vital Signs: Vital Signs: Last Vital Signs Temp 98.3 F 06/20/24 04:00 Pulse 63 06/20/24 04:00 Resp 18 06/20/24 04:00 BP 152/72 H 06/20/24 04:00 Pulse Ox 97 06/20/24 04:00 O2 Del Method Room Air 06/20/24 04:00 O2 Flow Rate 2 06/19/24 16:00 BMI result Body Mass Index 22.7 General: AO X 3, no acute distress Resp: CTA bilateral, no accessory muscles used CVS: S1,S2,RRR GI: soft, non tender, non distended Neuro: motor grossly intact, alert Psych: appropriate affect, appropriate insight Objective Data Active Medications Acetaminophen (Acetaminophen 325 Mg Tablet) 650 mg PO Q6H PRN PRN Reason: Pain, Mild (Pain Scale 1-3), fever or headache Albuterol Sulfate (Albuterol Sulfate 90 Mcg 8 Gm Inhaler) 2 puff INHALE Q4H PRN PRN Reason: Shortness Of Breath Amlodipine Besylate (Amlodipine Besylate 10 Mg Tablet) 10 mg PO DAILY [facility]; Protocol Amphetamine/Dextroamphetamine (Amphetamine Mixed Salts 20 Mg Tablet) 20 mg PO TID [facility] Last Admin: 06/19/24 20:07 Dose: Not Given Documented By: HUNTER Non-Admin Reason: Patient Refused Atenolol (Atenolol 100 Mg Tablet) 100 mg PO DAILY [facility]; Protocol Atorvastatin Calcium (Atorvastatin Calcium 40 Mg Tablet) 40 mg PO DAILY [facility] Calcium Carbonate (Calcium Carbonate 750 Mg Tab.Chew) 750 mg PO Q4H PRN PRN Reason: Heartburn Glucose (Glucose Gel 15 Gm Gel..Gram.) 15 gm PO Q15M PRN; Protocol PRN Reason: per Hypoglycemia Standing Ord. Heparin Sodium (Porcine) (Heparin Sodium,Porcine 5,000 Unit/Ml Vial) 5,000 unit SUBCUT Q8H [facility] Last Admin: 06/20/24 01:19 Dose: 5,000 unit Documented By: HUNTER Hydromorphone HCl (Hydromorphone Hcl 4 Mg Tablet) 4 mg PO Q4H [facility] Last Admin: 06/20/24 05:51 Dose: 4 mg Documented By: HUNTER Dextrose (D10) 250 mls @ 750 mls/hr IV Q15M PRN; Protocol PRN Reason: per Hypoglycemia Standing Ord. Insulin Human Lispro (Insulin Lispro 100 Unit/Ml 3 Ml Vial) 0 unit SUBCUT QIDACHS [facility]; Protocol Last Admin: 06/20/24 08:47 Dose: Not Given Documented By: ENRIQUE Non-Admin Reason: poc oor Levothyroxine Sodium (Levothyroxine Sodium 112 Mcg Tablet) 112 mcg PO DAILY@0600 [facility] Last Admin: 06/20/24 05:51 Dose: 112 mcg Documented By: HUNTER Levothyroxine Sodium (Levothyroxine Sodium 25 Mcg Tablet) 25 mcg PO DAILY@0600 [facility] Last Admin: 06/20/24 05:51 Dose: 25 mcg Documented By: HUNTER Lorazepam (Lorazepam 1 Mg Tablet) 1 mg PO TID [facility] Last Admin: 06/19/24 20:06 Dose: 1 mg Documented By: HUNTER Losartan Potassium (Losartan Potassium 25 Mg Tablet) 25 mg PO DAILY [facility]; Protocol Magnesium Hydroxide (Milk Of Magnesia 30 Ml Oral.Susp) 30 ml PO DAILY PRN PRN Reason: Constipation Melatonin (Melatonin 3 Mg Tablet) 6 mg PO BEDTIME PRN PRN Reason: Insomnia Omeprazole (Omeprazole 20 Mg Capsule.Dr) 20 mg PO DAILY@0630 [facility] Last Admin: 06/20/24 05:52 Dose: 20 mg Documented By: HUNTER Oxycodone HCl (Oxycodone Hcl Immed Release 5 Mg Tablet) 10 mg PO Q4H PRN PRN Reason: severe breakthrough pain Last Admin: 06/19/24 15:12 Dose: 10 mg Documented By: LULU Prochlorperazine Maleate (Prochlorperazine Maleate 5 Mg Tablet) 10 mg PO DAILY PRN PRN Reason: nausea Sevelamer Carbonate (Sevelamer Carbonate Tablet 800 Mg Tablet) 800 mg PO TIDWM [facility] Last Admin: 06/19/24 16:59 Dose: 800 mg Documented By: LULU Sodium Chloride (0.9 % Sodium Chloride Flush 3 Ml Syringe) [facility] Last Admin: 06/20/24 07:18 Dose: Not Given Documented By: HO.SOFFAA Non-Admin Reason: Previously Administered Sodium Zirconium Cyclosilicate (Sodium Zirconium Cyclosilicate 10 Gm Powd.Pack) 10 gm PO Carla@0900 FRANCINE Last Admin: 06/19/24 21:03 Dose: 10 gm Documented By: HUNTER Labs 06/19/24 04:22 06/19/24 04:22 Labs: Laboratory Results - last 24 hr 06/19/24 06/19/24 06/19/24 11:06 15:55 20:31 POC Glucose 124 H 140 H 132 H 06/20/24 07:38 POC Glucose 84 Assessment and Plan (1) CHF (congestive heart failure): Status: Acute Plan 69M PMH ESRD, htn, dm, hypothryoid, mood disorder, bph, chronic diastolic chf, presented with sob Acute hypoxic respiratory failure secondary to acute on chronic diastolic CHF in a patient with end-stage renal disease hemodialysis, now on room air Hypertension Continue atenolol, losartan, amlodipine Hypothyroid Continue levothyroxine Diabetes Continue insulin sliding scale Mood disorder Continue bupropion, lorazepam as needed End-stage renal disease Continue hemodialysis, phosphate binders DVT prophylaxis with heparin subQ Full code reason for continued hospitalization:likely dc today provided stays on room air Quality Stroke Does the patient have a stroke diagnosis?: No VTE Prior VTE?: No VTE Risk Level:: Medical - moderate - high VTE Device Contraindication: Treatment Not Indicated VTE Drug Contraindication: N/A - Med Ordered
[2024-06-20] MEDS: Flu Vacc TS2024-25(6mos up)/PF 0.5 ML SYRINGE IM (10:15)
[2024-06-20] MEDS: LORazepam 1 MG TABLET PO (10:15)
[2024-06-20] MEDS: atenoloL 100 MG TABLET PO (10:15)
[2024-06-20] MEDS: Atorvastatin Calcium 40 MG TABLET PO (10:15)
[2024-06-20] MEDS: amLODIPine Besylate 10 MG TABLET PO (10:15)
[2024-06-20] MEDS: Sevelamer Carbonate Tablet 800 MG TABLET PO (10:15)
[2024-06-20] MEDS: Losartan Potassium 25 MG TABLET PO (10:15)
[2024-06-20 10:59] LABS: Glucose, Whole Blood 114 mg/dL (60-115)
[2024-06-20 11:22] VITALS: BP 153/58; PULSE 56; RESP 16; TEMP 36.1; O2SAT 99
[2024-06-20] MEDS: oxyCODONE HCl Immed Release 5 MG TABLET 10 MG PO (11:25)
--- NOTE | 2024-06-20 12:12 | P.DS_ITS ---
DS: Providers Provider Date of Service: 06/20/24 Date of admission: 06/19/24 07:33 Date of discharge: 06/20/24 Primary care physician: Matias Tan MD Consults: 06/19/24 06:46 Consult to Nephrology Stat Consulting Provider: Ramo Allen Reason for consultation: fluid overload Has provider been notified: Yes DS: Diagnosis Discharge Diagnosis (1) CHF (congestive heart failure): Status: Acute DS: Summary Hospital Course Hospital Course: from initial hpi: 69M PMH ESRD, htn, dm, hypothryoid, mood disorder, bph, chronic diastolic chf, presented with sob. Patient recently discharged from [facility] after hospitalization for pneumonia and CHF, was dialyzed and given antibiotics and was feeling better. Has been home for about 2 weeks, last dialyzed 2 days prior to prese ntation. Since then has been having worsening shortness of breath, positive orthopnea, worse on exertion, denies chest pain, fever, chills, cough. Has not noticed any weight gain or swelling. In ED became hypoxic when laid down for EJ, chest x-ray unremarkable except for small bilateral pleural effusions. hospital course: Patient was admitted for acute hypoxic respiratory failure secondary to acute on chronic diastolic CHF in a patient with end-stage renal disease. He underwent hemodialysis and symptoms completely resolved and he is now on room air. For hypertension was continued on atenolol, losartan, amlodipine. For hypothyroidism was continue levothyroxine. For diabetes was continued on insulin sliding scale. For mood disorder was continued on bupropion and Ativan. For end-stage renal disease was continued on hemodialysis and phosphate binders. Patient is feeling back to baseline will be discharged home. Time Attestation Discharge Coordination Time (in mins): 37 Quality: Safe Use of Opioids Does Pt have an Active Cancer Diagnosis on the Problem List?: No Quality: Stroke Does the patient have a stroke diagnosis?: No Physical Exam Vital Signs: Vital Signs: Last Vital Signs Temp 97 F 06/20/24 11:22 Pulse 56 06/20/24 11:22 Resp 16 06/20/24 11:22 BP 153/58 H 06/20/24 11:22 Pulse Ox 99 06/20/24 11:22 O2 Del Method Room Air 06/20/24 11:22 O2 Flow Rate 2 06/19/24 16:00 BMI result Body Mass Index 22.7 General: AO X 3, no acute distress Resp: CTA bilateral, no accessory muscles used CVS: S1,S2,RRR GI: soft, non tender, non distended Neuro: motor grossly intact, alert Psych: appropriate affect, appropriate insight DS: Data Data Completed and Pending Completed studies during hospitalization [Text1]: Procedures Assistance with Respiratory Ventilation, Less than 24 Consecutive Hours, Continuous Positive Airway Pressure (11/04/23) Performance of Urinary Filtration, Intermittent, Less than 6 Hours Per Day ( 03/11) Labs on day of discharge: Laboratory Results - last 24 hr 06/19/24 06/19/24 06/20/24 15:55 20:31 07:38 POC Glucose 140 H 132 H 84 06/20/24 10:54 POC Glucose 114 Discharge Plan Discharge Anticipated Discharge Date/Time: 06/20/24 12:11 Patient Disposition: Home, Self-Care Discharge Diagnosis: chf Referrals: Matias Tan MD [Primary Care Provider] - 1 Week Discharge Medications: Continued levothyroxine 137 mcg tablet 1 tab PO DAILY@0600 atenolol 100 mg tablet 1 tab PO DAILY (DME) FreeStyle Lite Strips Strip MISCELLANEOUS TID dextroamphetamine-amphetamine 20 mg tablet 1 tab PO TID (DME) pen needle, diabetic [BD Ultra-Fine Short Pen Needle] 31 gauge x 5/16 needle subcut DAILY hydromorphone 4 mg tablet 4 mg PO Q4H lorazepam 1 mg tablet 1 mg PO TID cholecalciferol (vitamin D3) [Vitamin D3] 25 mcg (1,000 unit) Tablet 25 mcg PO MOWEFR Rx Instructions: on dialysis days Lokelma 10 gram Powder In Packet 10 g PO SUTUTHSA amlodipine 5 mg tablet 10 mg PO DAILY insulin lispro [Humalog KwikPen Insulin] 100 unit/mL insulin pen 1 sliding scale dose subcut USEASDIRECTD Qty: 15 0RF prochlorperazine maleate 10 mg tablet 10 mg PO DAILY PRN (Reason: nausea) albuterol sulfate [Ventolin HFA] 90 mcg/actuation HFA aerosol inhaler 2 puff INHALATION Q4-6H PRN (Reason: Shortness Of Breath) oxycodone 5 mg tablet 10 mg PO Q4H PRN (Reason: severe breakthrough pain) sevelamer carbonate 800 mg tablet 800 mg PO TID Qty: 90 2RF Rx Instructions: must administer with a meal/food atorvastatin 40 mg tablet 40 mg PO DAILY pantoprazole 40 mg tablet,delayed release (DR/EC) 40 mg PO DAILY losartan 25 mg tablet 25 mg PO DAILY Discharge Orders: Discharge Order (Routine); Ordered 06/20/24 Ordered By: Denzel Villanueva Diet: Advance to usual diet Activity on Discharge: As tolerated Stand Alone Forms: Patient Portal Discharge page Print Language: Mexican Care Plan Goals: recovery Health Concerns: chf Plan of Treatment: conitnue hd, monitor fluid status Assessment: see above
--- NOTE | 2024-06-20 12:18 | MHC.CLN ---
NUTRITION CONSULT FOR WEIGHT LOSS. REVIEW OF WEIGHT HX SHOWS WEIGHT STABLE X 2 MONTHS. WEIGHT LOSS X 4 MONTHS, -16%. PATIENT WAS HOSPITALIZED AT THAT TIME DUE TO FLUID OVERLOAD. RECEIVED HD. WEIGHT LOSS DEEMED PLANNED AND FAVORABLE.
--- NOTE | 2024-06-20 13:09 | MHC.CM.PN ---
IMM 06/20. Pt lives at home with his /HCP/caregiver, he is active with [facility], and goes to HD in [place] on //. Pts will to transport him home. HCP on file and verified. PCP: Dr. Matias Tan
--- NOTE | 2024-06-20 13:20 | MHC.CM.PN ---
Pt is medically cleared for discharge home with resumption of [facility] and out pt HD in [place]. Pts to transport him home.
== END 2024-06-20 12:20 | disposition home or self-care (01) | DRG 291 ==
LOC: HO.ED 06:51 → HO.EDOVER 07:38 → HO.IMC 11:00
PROVIDERS: Admitting Provider Internal Medicine; Emergency Provider Internal Medicine; PCP Family Medicine; Visit Provider Internal Medicine
DX: I13.2 Hypertensive heart and chronic kidney disease with heart failure and with stage 5 chronic kidney disease, or end stage renal disease (principal); I50.33 Acute on chronic diastolic (congestive) heart failure; J96.01 Acute respiratory failure with hypoxia; N18.6 End stage renal disease; N25.81 Secondary hyperparathyroidism of renal origin; F39 Unspecified mood [affective] disorder; E03.9 Hypothyroidism, unspecified; E11.22 Type 2 diabetes mellitus with diabetic chronic kidney disease; Z20.822 Contact with and (suspected) exposure to COVID-19; Z99.2 Dependence on renal dialysis; Z79.4 Long term (current) use of insulin; Z79.890 Hormone replacement therapy; Z79.899 Other long term (current) drug therapy
CPT/HCPCS: 0241U; 36415; 71046; 80053; 82947; 83880; 84484; 85025; 90656; 90999; 93005; 99284; J1170; J1644; J1940; J2405

== ENCOUNTER → 2024-06-19 07:33 | Outpatient (BNV) | payer MEDICARE, SELFPAY | PROVIDERS: Admitting Provider Internal Medicine; Emergency Provider Internal Medicine; PCP Family Medicine; Visit Provider Internal Medicine | DX: I50.9 Heart failure, unspecified (principal) | CPT/HCPCS: 99223; 99232; 99239 ==

== ENCOUNTER 2024-10-30 09:05 | Inpatient (IN) | payer MEDICARE, SELFPAY ==
[2024-10-30] VITALS (11 sets, daily range): BP systolic 124–171; BP diastolic 59–77; PULSE 76–83; RESP 16–28; TEMP 36.7–37.6; O2SAT 86–98; BMI 27.9
--- NOTE | ~2024-10-30 | XR_ITS ---
CLINICAL HISTORY: sob 1 view chest x-ray Comparison: 02/23/2024 Findings: The lungs are clear. Normal size heart. No acute fracture. IMPRESSION: 1. No acute findings. This document has been electronically signed by: Ildefonso Alonzo MD on 10/30/2024 10:43:26
--- NOTE | 2024-10-30 10:18 | ECG_ITS ---
Test Reason : SOB Blood Pressure : */* mmHG Vent. Rate : 81 BPM Atrial Rate : 81 BPM P-R Int : 152 ms QRS Dur : 84 ms QT Int : 424 ms P-R-T Axes : 52 6 40 degrees QTcB Int : 492 ms Normal sinus rhythm Prolonged QT Abnormal ECG When compared with ECG of 19-Jun-2024 03:33, No significant change was found Referred By: Mai Waldrop Electronically Signed By: Satinder Lyn
--- NOTE | 2024-10-30 11:12 | PC.NURSE ---
Pt came via triage from home for SOB. Pt had dialysis on Thursday and reports only took 4k off and needed to take more off. at bedside reports when they do not take enough fluids off he becomes SOB. Pt alert and oriented, upon arrival was on 2L NC O2 sating 88%, increased O2 to 4L, O2 improved briefly, placed on oxymask at 15L, currently sating 89-90%, switched to non-rebreather at 15L O2 at 94%, Panchal, aware. 20g IV started right hand, no BP or IVs left arm, graft present.
[2024-10-30 11:42] LABS: Influenza A PCR NEGATIVE (Negative); Influenza B PCR NEGATIVE (Negative); Resp Syncy Virus RNA Qual PCR NEGATIVE (Negative); SARS COV2 PCR INHOUSE NEGATIVE (Negative)
[2024-10-30 11:43] LABS: Basophils Absolute Auto 0.1 X10*3/uL (0.0-0.2); Basophils Percent Auto 0.7 % (0-2); Eosinophils Absolute Auto 0.5 X10*3/uL (0.0-0.4); Eosinophils Percent Auto 3.6 % (0-4); Hematocrit 29.3 % (42.0-52.0); Hemoglobin 10.1 g/dl (14.0-18.0); Imm Gran Abs Auto 0.04 X10*3/uL (0.00-0.03); Imm Gran Pct Auto 0.3 % (0.0-0.4); Lymphocytes Absolute Auto 1.1 X10*3/uL (1.2-4.9); Lymphocytes Percent Auto 8.3 % (20-40); MANUAL DIFF FLAG SCAN; Mean Corpuscular HGB Conc 34.5 g/dl (31.0-36.0); Mean Corpuscular Hemoglobin 32.4 pg (27.0-33.0); Mean Corpuscular Volume 93.9 fL (80.0-98.0); Mean Platelet Volume 10.1 fL (9.4-12.4); Monocytes Absolute Auto 1.6 X10*3/uL (0.1-1.2); Monocytes Percent Auto 12.1 % (2-11); Platelet Count 206 X10*3/uL (160-400); Red Blood Count 3.12 X10*6/uL (4.60-5.80); Red Cell Distribution Width 15.8 % (11.0-16.0); SCAN SMEAR FLAG 1; White Blood Count 13.4 X10*3/uL (4.8-10.8)
--- NOTE | 2024-10-30 11:45 | ED.SOB ---
HPI - SOB/Dyspnea General Chief Complaint: Dyspnea Stated Complaint: Diff breathing end stage renal failure Time Seen by Provider: 10/30/24 11:04 History of Present Illness HPI Narrative: Patient is a 69-year-old male with a history of end-stage renal disease. Normally gets dialysis on Thursday. Patient received his dialysis on Thursday. Patient did not get down to his dry weight his normal dry weight is 71.5 kg. He got down to 78 kg. Did drank a little more liquid than normal. And had a diamond grinder that he is not supposed to. Subsequently patient felt short of breath. This is very similar to previous history of fluid overload. Patient denies any chest pain or diaphoresis. No coughing or congestion or upper respiratory symptoms. Patient is from home. Related Data Home Medications ?Medication ?Instructions ?Recorded ?Confirmed atenolol 100 mg tablet 1 tab PO DAILY 07/11/21 06/19/24 blood sugar diagnostic (FreeStyle 07/11/21 07/11/21 Lite Strips) dextroamphetamine-amphetamine 20 1 tab PO TID 07/11/21 06/19/24 mg tablet levothyroxine 137 mcg tablet 1 tab PO DAILY@0600 07/11/21 06/19/24 pen needle, diabetic 31 gauge x 07/11/21 07/11/2103/03 (BD Ultra-Fine Short Pen Needle) amlodipine 5 mg tablet 10 mg PO DAILY 09/03/23 06/19/24 albuterol sulfate 90 mcg/actuation 2 puff inhalation Q4-6H PRN 10/29/23 06/19/24 aerosol inhaler (Ventolin HFA) Shortness Of Breath oxycodone 5 mg tablet 10 mg PO Q4H PRN severe 10/29/23 06/19/24 breakthrough pain prochlorperazine maleate 10 mg 10 mg PO DAILY PRN nausea 10/29/23 06/19/24 tablet atorvastatin 40 mg tablet 40 mg PO DAILY 02/22/24 06/19/24 losartan 25 mg tablet 25 mg PO DAILY 02/22/24 06/19/24 pantoprazole 40 mg tablet,delayed 40 mg PO DAILY 02/22/24 06/19/24 release cholecalciferol (vitamin D3) 25 25 mcg PO MOWEFR 06/19/24 06/19/24 mcg (1,000 unit) tablet (Vitamin D3) hydromorphone 4 mg tablet 4 mg PO Q4H pain 06/19/24 06/19/24 lorazepam 1 mg tablet 1 mg PO TID 06/19/24 06/19/24 sodium zirconium cyclosilicate 10 10 g PO SUTUTHSA 06/19/24 06/19/24 gram oral powder packet (Lokelma) Previous Rx's ?Medication ?Instructions ?Recorded insulin lispro 100 unit/mL 1 sliding scale dose subcut 09/05/23 subcutaneous pen (Humalog KwikPen USEASDIRECTD #15 mL (U-100) Insulin) sevelamer carbonate 800 mg tablet 800 mg PO TID #90 tabs 10/31/23 Allergies Allergy/AdvReac Type Severity Reaction Status Date / Time Penicillins [PENICILLINS] Allergy Unknown RASH Verified 10/30/24 09:15 tramadol [From ULTRAM] Allergy Unknown RASH Verified 10/30/24 09:15 trazodone [TRAZODONE] Allergy Unknown PRIAPISM Verified 10/30/24 09:15 risperidone [RISPERIDONE] AdvReac Severe dizzy, EPS Verified 10/30/24 09:15 Review of Systems Review of Systems: Positive shortness of breath Yes all other systems are reviewed and are negative PMFSH Past Medical History Attestation statement: The following information was validated with the patient. Medical History End stage kidney disease ESRD needing dialysis Secondary hyperparathyroidism (of renal origin) Anemia in chronic kidney disease DONIS (acute kidney injury) End stage renal disease on dialysis Diabetes Kidney failure HTN (hypertension) Social History Social History Household Members: Spouse Housing: House Are you a primary director of home care hospice to a significant other at home: No Do you presently have visiting nurse or other home services: Yes Alcohol intake: never Comment: [place] RISK IN PLACE FOR O2 AND WEAKNESS REPORTED S/P HD TODAY Patient Tobacco Use Status: Never used Tobacco Cigarette Packs Per Day: 0 Cigarettes Per Day: 0.0 Years Smoked: NA Smoked in Last 30 Days: No e-Cigarette/Vaping Use: Never Used Second Hand Smoke Exposure: No Use of substances other than those prescribed or required for medical reasons: No Advance Directives: Yes Advance Directives on File: Yes Advance Directives Date on File: 09/07/23 Do you have a plan to hurt others: No Plan service: No Physical Exam Vital Signs: Vital Signs: Last Vital Signs Temp 99.1 F 10/30/24 10:49 Pulse 79 10/30/24 13:52 Resp 28 H 10/30/24 13:52 BP 161/73 H 10/30/24 13:52 Pulse Ox 90 L 10/30/24 13:52 O2 Del Method Oxymask 10/30/24 13:52 O2 Flow Rate 15 10/30/24 13:52 BMI result Body Mass Index 27.9 Appearance: Alert. Oriented X3. No acute distress. Eyes: Pupils equal, round and reactive to light. ENT: Pharynx normal. Neck: Normal inspection. Neck supple. No lymph nodes noted. No crepitus CVS: Normal heart rate and rhythm. Pulses normal. Normal S1 and S2 Respiratory: No respiratory distress. Breath sounds normal.min Wheezing. No rales Abdomen: Soft and nontender. No rigidity. No distention. good BS x4 Skin: Skin warm and dry. Normal skin color. Normal skin turgor. Extremities: No lower extremity edema. Neurovascular intact to all extremities. No Lacerations. No Rash Neuro: Oriented X 3. No motor deficit. No sensory deficit. Moving all extermities. No slurred speech Medications Administered Discontinued Medications Generic Name Dose Route Start Last Admin Trade Name Freq PRN Reason Stop Dose Admin Dextrose 25 gm 10/30/24 13:45 10/30/24 13:45 Dextrose 50 % 25 Gm/50 Ml Syringe IVPUSH 10/30/24 13:46 25 gm ONCE ONE Administration Furosemide 100 mg 10/30/24 11:44 10/30/24 12:04 Furosemide 100 Mg/10 Ml Vial IVPUSH 10/30/24 11:45 100 mg ONCE ONE Administration Protocol Calcium Gluconate 1 gm in 50 mls @ 50 mls/hr 10/30/24 13:13 10/30/24 13:46 Calcium Gluconate IV 10/30/24 14:12 50 mls/hr ONCE ONE Administration Insulin Human Regular 5 unit 10/30/24 13:13 10/30/24 13:45 Insulin Regular, Human 100 Unit/Ml 10 Ml Vial IVPUSH 10/30/24 13:14 5 unit ONCE ONE Administration Nitroglycerin 1 inch 10/30/24 11:44 10/30/24 12:05 Nitroglycerin 2 % Oint 1 Gm Packet TRANSDERMA 10/30/24 11:45 1 inch ONCE ONE Administration Sodium Bicarbonate 50 meq 10/30/24 13:14 10/30/24 13:46 Sodium Bicarbonate 8.4% 50 Meq/50 Ml Syringe IVPUSH 10/30/24 13:15 50 meq ONCE ONE Administration Medical Decision Making Medical Decision Making [facility] Narrative: My interpretation patient's EKG showed a sinus rhythm heart rate is 80 HI QRS QTC normal no acute ST segment elevation. Patient had increasing shortness of breath. Did not get down to dry weight. Likely fluid overload. X-ray actually showed minimal fullness by my interpretation. I reviewed radiology's reading was actually negative. Patient did have hypoxia. Satting down to the 80s on a couple L of oxygen. Started patient on a dose of Lasix. Electrolytes were ordered. Nitro was ordered. COVID flu RSV were all negative. Will monitor carefully. Check patient's electrolytes. Patient potassium was elevated. Has fluid overload. Was given Lasix 100 mg and also nitroglycerin to shift fluids. In addition patient was given hyperkalemia treatment including insulin, glucose, bicarb, calcium. Patient case discussed with nephrology. Discussed with hospitalist. Will take patient to the telemetry unit for emergent dialysis. Currently in stable condition. Differential Diagnosis Differential Diagnoses: The differential diagnosis associated with the presentation includes Congestive heart failure, flu, RSV, COPD Admission/Observation Consideration of admission/observation: Escalation of care including admission/observation considered Consult Healthcare Provider Management of the patient was discussed with: Hospitalist and Nursing Director (Nephrology) Lab Data [facility] Lab Attestation statement: I reviewed the patient's lab results. 10/30/24 11:34 10/30/24 12:32 Labs: Lab Results 10/30/24 10/30/24 10/30/24 Range/Units 10:46 11:34 11:35 WBC 13.4 H (4.8-10.8) X10*3/uL RBC 3.12 L (4.60-5.80) X10*6/uL Hgb 10.1 L (14.0-18.0) g/dl Hct 29.3 L (42.0-52.0) % MCV 93.9 (80.0-98.0) fL MCH 32.4 (27.0-33.0) pg MCHC 34.5 (31.0-36.0) g/dl RDW 15.8 (11.0-16.0) % Plt Count 206 (160-400) X10*3/uL MPV 10.1 (9.4-12.4) fL Immature Gran % (Auto) 0.3 (0.0-0.4) % Neut % (Auto) 75.0 H (45-73) % Lymph % (Auto) 8.3 L (20-40) % [place] % (Auto) 12.1 H (2-11) % Eos % (Auto) 3.6 (0-4) % Baso % (Auto) 0.7 (0-2) % Lymph # (Auto) 1.1 L (1.2-4.9) X10*3/uL [place] # (Auto) 1.6 H (0.1-1.2) X10*3/uL Eos # (Auto) 0.5 H (0.0-0.4) X10*3/uL Baso # (Auto) 0.1 (0.0-0.2) X10*3/uL Abs Immat Gran (auto) 0.04 H (0.00-0.03) X10*3/uL Absolute Neuts (auto) 10.0 H (2.0-8.3) x10*3/uL Absolute Nucleated RBC 0.000 (0.0-0.012) X10*3/uL Nucleated RBC % (auto) 0.0 (0.0-0.2) /100WBC Smear Tech's Comments VERIFIED Sodium (135-145) mmol/L Potassium (3.3-5.1) mmol/L Chloride (96-108) mmol/L Carbon Dioxide (22-29) mmol/L Anion Gap (12-20) BUN (9-16) mg/dL Creatinine (0.5-1.4) mg/dL Estim Creat Clear Calc Estimated GFR Random Glucose (60-115) mg/dL Estimat Average Glucose Cancelled Hemoglobin A1c % Cancelled Calcium (8.4-10.2) mg/dL Magnesium (1.6-2.6) mg/dL Total Bilirubin (0.0-1.0) mg/dL Direct Bilirubin (0.0-0.5) mg/dL AST (5-37) U/L ALT (0-40) U/L Alkaline Phosphatase (39-117) U/L Troponin I High Sens 30.9 D (<3.5-35.0) ng/L Total Protein (6.5-8.0) g/dL Albumin (3.5-5.0) g/dL Influenza Type A (PCR) NEGATIVE (Negative) Influenza Type B (PCR) NEGATIVE (Negative) RSV RNA Qual (PCR) NEGATIVE (Negative) SARS-CoV-2 RNA (RT-PCR) NEGATIVE (Negative) 10/30/24 Range/Units 12:32 WBC (4.8-10.8) X10*3/uL RBC (4.60-5.80) X10*6/uL Hgb (14.0-18.0) g/dl Hct (42.0-52.0) % MCV (80.0-98.0) fL MCH (27.0-33.0) pg MCHC (31.0-36.0) g/dl RDW (11.0-16.0) % Plt Count (160-400) X10*3/uL MPV (9.4-12.4) fL Immature Gran % (Auto) (0.0-0.4) % Neut % (Auto) (45-73) % Lymph % (Auto) (20-40) % [place] % (Auto) (2-11) % Eos % (Auto) (0-4) % Baso % (Auto) (0-2) % Lymph # (Auto) (1.2-4.9) X10*3/uL [place] # (Auto) (0.1-1.2) X10*3/uL Eos # (Auto) (0.0-0.4) X10*3/uL Baso # (Auto) (0.0-0.2) X10*3/uL Abs Immat Gran (auto) (0.00-0.03) X10*3/uL Absolute Neuts (auto) (2.0-8.3) x10*3/uL Absolute Nucleated RBC (0.0-0.012) X10*3/uL Nucleated RBC % (auto) (0.0-0.2) /100WBC Smear Tech's Comments Sodium 139 (135-145) mmol/L Potassium 6.1 H* (3.3-5.1) mmol/L Chloride 101 (96-108) mmol/L Carbon Dioxide 23 (22-29) mmol/L Anion Gap 21 H (12-20) BUN 46 H (9-16) mg/dL Creatinine 9.67 H* (0.5-1.4) mg/dL Estim Creat Clear Calc 6.9 Estimated GFR 5 Random Glucose 118 H (60-115) mg/dL Estimat Average Glucose Hemoglobin A1c % Calcium 8.9 (8.4-10.2) mg/dL Magnesium 2.0 (1.6-2.6) mg/dL Total Bilirubin 0.8 (0.0-1.0) mg/dL Direct Bilirubin 0.2 (0.0-0.5) mg/dL AST 25 (5-37) U/L ALT 14 (0-40) U/L Alkaline Phosphatase 70 (39-117) U/L Troponin I High Sens (<3.5-35.0) ng/L Total Protein 7.0 (6.5-8.0) g/dL Albumin 4.1 (3.5-5.0) g/dL Influenza Type A (PCR) (Negative) Influenza Type B (PCR) (Negative) RSV RNA Qual (PCR) (Negative) SARS-CoV-2 RNA (RT-PCR) (Negative) Independent Interpretation I performed an independent interpretation of an: EKG (My interpretation patient's EKG showed a sinus rhythm heart rate is 80 HI QRS QTC normal no acute ST segment elevation. T-waves appear normal to me) and Plain X-Ray (My interpretation patient's chest x-ray showed some mild fullness to bilateral lungs) Radiology Impression Discussion of test interpretation with radiology: I have reviewed the radiologist's reading. Independent Historian Clinical information obtained from an independent historian. History obtained from or confirmed by: Spouse External Record Review External record reviewed: Inpatient record Chronic Conditions History of end-stage renal disease on dialysis Critical Care Time Critical Care Time Critical Care Time: Yes Total Critical Care Time: 40 Attestation: I have personally provided 40 minutes of critical care time exclusive of time spent on separately billable procedures. ?Time includes review of lab data, radiology results, discussion with consultants, and monitoring for potential decompensation. ?Interventions were performed as documented above Discharge Plan Discharge Clinical Impression: Acute hyperkalemia, Fluid overload Patient Disposition: Admitted As Inpatient Prescriptions: No Action levothyroxine 137 mcg tablet 1 tab PO DAILY@0600 atenolol 100 mg tablet 1 tab PO DAILY (DME) FreeStyle Lite Strips Strip MISCELLANEOUS TID dextroamphetamine-amphetamine 20 mg tablet 1 tab PO TID (DME) pen needle, diabetic [BD Ultra-Fine Short Pen Needle] 31 gauge x 5/16 needle subcut DAILY hydromorphone 4 mg tablet 4 mg PO Q4H lorazepam 1 mg tablet 1 mg PO TID cholecalciferol (vitamin D3) [Vitamin D3] 25 mcg (1,000 unit) Tablet 25 mcg PO MOWEFR Rx Instructions: on dialysis days Lokelma 10 gram Powder In Packet 10 g PO SUTUTHSA amlodipine 5 mg tablet 10 mg PO DAILY insulin lispro [Humalog KwikPen Insulin] 100 unit/mL insulin pen 1 sliding scale dose subcut USEASDIRECTD Qty: 15 0RF prochlorperazine maleate 10 mg tablet 10 mg PO DAILY PRN (Reason: nausea) albuterol sulfate [Ventolin HFA] 90 mcg/actuation HFA aerosol inhaler 2 puff INHALATION Q4-6H PRN (Reason: Shortness Of Breath) oxycodone 5 mg tablet 10 mg PO Q4H PRN (Reason: severe breakthrough pain) sevelamer carbonate 800 mg tablet 800 mg PO TID Qty: 90 2RF Rx Instructions: must administer with a meal/food atorvastatin 40 mg tablet 40 mg PO DAILY pantoprazole 40 mg tablet,delayed release (DR/EC) 40 mg PO DAILY losartan 25 mg tablet 25 mg PO DAILY Referrals: Sawyer Davis MD [Physician] - Matias Tan MD [Primary Care Provider] - Print Language: Senegalese
--- NOTE | 2024-10-30 11:51 | PC.NURSE ---
MD Abdulkadir aware unable to send PT/INR lab, no further action at this time.
[2024-10-30] MEDS: Furosemide 100 MG/10 ML VIAL IVPUSH (12:04)
[2024-10-30] MEDS: Nitroglycerin 2 % Oint 1 GM Packet 1 INCH TRANSDERMA (12:05)
[2024-10-30 12:10] LABS: Troponin-I High Sensitivity 30.9 ng/L (<3.5-35.0)
[2024-10-30 12:17] LABS: SLIDE REVIEW VERIFIED
[2024-10-30 13:13] LABS: Alanine Aminotransferase 14 U/L (0-40); Albumin Level 4.1 g/dL (3.5-5.0); Alkaline Phosphatase 70 U/L (39-117); Anion Gap 21 (12-20); Aspartate Amino Transferase 25 U/L (5-37); Bilirubin Direct 0.2 mg/dL (0.0-0.5); Bilirubin Total 0.8 mg/dL (0.0-1.0); Blood Urea Nitrogen 46 mg/dL (9-16); Calcium 8.9 mg/dL (8.4-10.2); Carbon Dioxide 23 mmol/L (22-29); Chloride 101 mmol/L (96-108); Creatinine Clr Calc Pharmacy 6.9; Estimated Glomerular Filt Rate 5; Glucose Random 118 mg/dL (60-115); Potassium 6.1 mmol/L (3.3-5.1); Sodium 139 mmol/L (135-145)
[2024-10-30] MEDS: Dextrose 50 % 25 GM/50 ML SYRINGE IVPUSH (13:45)
[2024-10-30] MEDS: Insulin Regular, Human 100 UNIT/ML 10 ML VIAL IVPUSH (13:45)
[2024-10-30] MEDS: Sodium Bicarbonate 8.4% 50 MEQ/50 ML SYRINGE IVPUSH (13:46)
[2024-10-30] MEDS: Calcium Gluconate/NaCl,Iso-Osm 1 GM/50 ML PLAST..BAG IV (13:46)
--- NOTE | 2024-10-30 14:14 | PM.IMHP ---
History of Present Illness Date of Service: 10/30/24 Attending physician on admission: [facility] Chief Complaint: sob This is a 69M with PMH ESRD on HD, htn, dm, hypothryoid, mood disorder, bph, chronic diastolic chf, presented with sob. He last had HD on Thursday. Today he developed worsening shortness of breath. He denies associated cough, fever, chills. Has no associated chest pain or palpitations. Denies any recent sick contacts. Chest x-ray in the emergency department was negative, negative for flu, RSV, COVID. Lab work significant for elevated creatinine with potassium of 6.1. In the emergency department he was noted to be hypoxic requiring non-rebreather. His case was discussed with nephrology who recommended admitting the patient for emergent dialysis. Review of Systems Review of Systems: Yes all other systems are reviewed and are negative Constitutional: Constitutional: Denies chills and Denies fever(s) Cardiovascular: Cardiovascular: Denies chest pain and Denies palpitations Endocrine: Endocrine: Denies palpitations [facility] Medical History End stage kidney disease ESRD needing dialysis Secondary hyperparathyroidism (of renal origin) Anemia in chronic kidney disease DONIS (acute kidney injury) End stage renal disease on dialysis Diabetes Kidney failure HTN (hypertension) Social History Household Members: Spouse Housing: House Are you a primary resident care aid to a significant other at home: No Do you presently have visiting nurse or other home services: Yes Alcohol intake: never Comment: [place] RISK IN PLACE FOR O2 AND WEAKNESS REPORTED S/P HD TODAY Patient Tobacco Use Status: Never used Tobacco Cigarette Packs Per Day: 0 Cigarettes Per Day: 0.0 Years Smoked: NA Smoked in Last 30 Days: No e-Cigarette/Vaping Use: Never Used Second Hand Smoke Exposure: No Use of substances other than those prescribed or required for medical reasons: No Advance Directives: Yes Advance Directives on File: Yes Advance Directives Date on File: 09/07/23 Do you have a plan to hurt others: No Plan service: No Meds Allergies Allergy/AdvReac Type Severity Reaction Status Date / Time Penicillins [PENICILLINS] Allergy Unknown RASH Verified 10/30/24 09:15 tramadol [From ULTRAM] Allergy Unknown RASH Verified 10/30/24 09:15 trazodone [TRAZODONE] Allergy Unknown PRIAPISM Verified 10/30/24 09:15 risperidone [RISPERIDONE] AdvReac Severe dizzy, EPS Verified 10/30/24 09:15 Active Medications: Current Medications Acetaminophen (Acetaminophen 325 Mg Tablet) 650 mg PO Q6H PRN PRN Reason: Pain, Mild 1-3,fever,headache Calcium Carbonate (Calcium Carbonate 750 Mg Tab.Chew) 750 mg PO Q4H PRN PRN Reason: Heartburn Dextrose (D10) 250 mls @ 750 mls/hr IV Q15M PRN PRN Reason: per Hypoglycemia Standing Ord. Magnesium Hydroxide (Milk Of Magnesia 30 Ml Oral.Susp) 30 ml PO DAILY PRN PRN Reason: Constipation Melatonin (Melatonin 3 Mg Tablet) 6 mg PO BEDTIME PRN PRN Reason: Insomnia Sodium Chloride (0.9 % Sodium Chloride Flush 3 Ml Syringe) [facility] Medications ?Medication ?Instructions ?Recorded ?Confirmed ?Last Taken ?Type atenolol 100 mg tablet 1 tab PO DAILY 07/11/21 10/30/24 10/30/24 09:00 History blood sugar diagnostic (FreeStyle 07/11/21 10/30/24 10/30/24 09:00 History Lite Strips) dextroamphetamine-amphetamine 20 1 tab PO TID@0800,1400,1800 07/11/21 10/30/24 10/30/24 09:00 History mg tablet levothyroxine 137 mcg tablet 1 tab PO DAILY@0600 07/11/21 10/30/24 10/30/24 09:00 History pen needle, diabetic 31 gauge x 07/11/21 10/30/24 10/30/24 09:00 History 5/16 (BD Ultra-Fine Short Pen Needle) amlodipine 5 mg tablet 5 mg PO BID 09/03/23 10/30/24 10/30/24 09:00 History albuterol sulfate 90 mcg/actuation 2 puff inhalation Q6H PRN 10/29/23 10/30/24 Unknown History aerosol inhaler (Ventolin HFA) Shortness Of Breath atorvastatin 40 mg tablet 40 mg PO DAILY 02/22/24 10/30/24 10/30/24 09:00 History pantoprazole 40 mg tablet,delayed 40 mg PO DAILY@0630 PRN Heartburn 02/22/24 10/30/24 06/18/24 History release cholecalciferol (vitamin D3) 25 25 mcg PO MOWEFR@0900 06/19/24 10/30/24 10/28/24 History mcg (1,000 unit) tablet (Vitamin D3) hydromorphone 4 mg tablet 4 mg PO Q3H PRN Severe Pain (Scale 06/19/24 10/30/24 06/18/24 History Score 7-10) sodium zirconium cyclosilicate 10 10 g PO SUTUTHSA@0900 06/19/24 10/30/24 10/30/24 09:00 History gram oral powder packet (Lokelma) alprazolam 0.5 mg tablet 0.5 mg PO DAILY anxiety attack 10/30/24 10/30/24 10/30/24 09:00 History alprazolam 2 mg tablet 2 mg PO BID 10/30/24 10/30/24 10/30/24 09:00 History insulin lispro 100 unit/mL 1 sliding scale dose subcut TIDAC 10/30/24 10/30/24 10/30/24 09:00 History subcutaneous pen (Humalog KwikPen (U-100) Insulin) losartan 100 mg tablet 100 mg PO DAILY 10/30/24 10/30/24 10/30/24 09:00 History sevelamer carbonate 800 mg tablet 800 mg PO DAILY PRN snack 10/30/24 10/30/24 Unknown History sevelamer carbonate 800 mg tablet 800 mg PO TIDWM 10/30/24 10/30/24 10/30/24 09:00 History Physical Exam Vital Signs and Narrative: Vital Signs: Last Vital Signs Temp 99.1 F 10/30/24 10:49 Pulse 79 10/30/24 13:52 Resp 28 H 10/30/24 13:52 BP 161/73 H 10/30/24 13:52 Pulse Ox 90 L 10/30/24 13:52 O2 Del Method Oxymask 10/30/24 13:52 O2 Flow Rate 15 10/30/24 13:52 BMI result Body Mass Index 27.9 Const: General: alert and awake Nutritional Appearance: average body habitus Orientation/consciousness: patient oriented x3 Resp: Effort & Inspection: normal respiratory effort, able to speak in complete sentences, no respiratory distress and no use of accessory muscles Auscultation: crackles Cardio: Rate: regular rate GI: Inspection: No distended Palpation (GI): Soft to palpation and nontender Neuro: General: patient oriented x3, moves all extremities and CN's II-XI intact bilaterally Extrem: Other: LUE fistula with palpable thrill Results Labs 10/30/24 11:34 10/30/24 12:32 Labs: Laboratory Results - last 24 hr 10/30/24 10/30/24 10/30/24 10:46 11:34 11:35 MCV 93.9 MCH 32.4 MCHC 34.5 RDW 15.8 Plt Count 206 MPV 10.1 Immature Gran % (Auto) 0.3 Neut % (Auto) 75.0 H Lymph % (Auto) 8.3 L [place] % (Auto) 12.1 H Eos % (Auto) 3.6 Baso % (Auto) 0.7 Lymph # (Auto) 1.1 L [place] # (Auto) 1.6 H Eos # (Auto) 0.5 H Baso # (Auto) 0.1 Abs Immat Gran (auto) 0.04 H Absolute Neuts (auto) 10.0 H Absolute Nucleated RBC 0.000 Nucleated RBC % (auto) 0.0 Smear Tech's Comments VERIFIED Anion Gap Estim Creat Clear Calc Estimated GFR Random Glucose Estimat Average Glucose Cancelled Hemoglobin A1c % Cancelled Calcium Magnesium Total Bilirubin Direct Bilirubin AST ALT Alkaline Phosphatase Troponin I High Sens 30.9 D Total Protein Albumin Influenza Type A (PCR) NEGATIVE Influenza Type B (PCR) NEGATIVE RSV RNA Qual (PCR) NEGATIVE SARS-CoV-2 RNA (RT-PCR) NEGATIVE 10/30/24 12:32 MCV MCH MCHC RDW Plt Count MPV Immature Gran % (Auto) Neut % (Auto) Lymph % (Auto) [place] % (Auto) Eos % (Auto) Baso % (Auto) Lymph # (Auto) [place] # (Auto) Eos # (Auto) Baso # (Auto) Abs Immat Gran (auto) Absolute Neuts (auto) Absolute Nucleated RBC Nucleated RBC % (auto) Smear Tech's Comments Anion Gap 21 H Estim Creat Clear Calc 6.9 Estimated GFR 5 Random Glucose 118 H Estimat Average Glucose Hemoglobin A1c % Calcium 8.9 Magnesium 2.0 Total Bilirubin 0.8 Direct Bilirubin 0.2 AST 25 ALT 14 Alkaline Phosphatase 70 Troponin I High Sens Total Protein 7.0 Albumin 4.1 Influenza Type A (PCR) Influenza Type B (PCR) RSV RNA Qual (PCR) SARS-CoV-2 RNA (RT-PCR) Assessment and Plan (1) Fluid overload: Status: Acute (2) Acute hyperkalemia: Status: Acute Plan 69M PMH ESRD, htn, dm, hypothryoid, mood disorder, bph, chronic diastolic chf, presented with sob found to be hypoxic with hyperkalemia Acute hypoxic respiratory failure secondary to acute on chronic diastolic CHF in a patient with end-stage renal disease plan for emergent HD upon admission. pt anuric Wean O2 as tolerated Nephrology consult Acute hyperkalemia due to above should improve with HD continue baseline lokelma hold losartan for now low k diet ESRD on HD MWF shedule, last HD 10/28 phosphate binders Hypertension Continue atenolol, amlodipine hold losartan for now due to hyperkalemia Hypothyroid Continue levothyroxine Diabetes diet controlled Continue insulin sliding scale Mood disorder Continue lorazepam ?chronic pain continue baseline hydromorphone DVT prophylaxis with heparin subQ Full code Patient with significant hypoxia needing high levels of O2 and hemodialysis therefore expected require at least 2 midnights inpatient Quality Stroke Does the patient have a stroke diagnosis?: No VTE Prior VTE?: No VTE Risk Level:: Medical - moderate - high VTE Device Contraindication: N/A - Device Ordered VTE Drug Contraindication: Treatment Not Indicated
--- NOTE | 2024-10-30 15:20 | PHA.MEDREC ---
Addendum entered by Linsey Hood RPh 10/30/24 15:28: reviewed by [facility]. Original Note: Pharmacy Consult ? Medication Reconciliation Pharmacy has completed the medication reconciliation. Spoke to pt to confirm meds. Pt no longer taking lorazepam, oxycodone, or prochlorperazine.
--- NOTE | 2024-10-30 17:18 | PC.NURSE ---
Pt at dialysis at 1545.
[2024-10-30 17:37] LABS: Glucose, Whole Blood 118 mg/dL (60-115)
[2024-10-30 17:37] LABS: Glucose, Whole Blood 130 mg/dL (60-115)
[2024-10-30 17:37] LABS: Glucose, Whole Blood 95 mg/dL (60-115)
--- NOTE | 2024-10-30 19:50 | PC.NURSE ---
assumed care of pt at 1900. pt still in dialysis at this time.
[2024-10-30] MEDS: Heparin Sodium,Porcine 5,000 UNIT/ML VIAL 5000 UNIT SUBCUT (20:57)
[2024-10-30] MEDS: amLODIPine Besylate 5 MG TABLET PO (20:57)
[2024-10-30] MEDS: HYDROmorphone HCl 2 MG TABLET 4 MG PO (20:57)
[2024-10-30 20:59] LABS: Glucose, Whole Blood 105 mg/dL (60-115)
[2024-10-30] MEDS: ALPRAZolam 0.5 MG TABLET 2 MG PO (21:34)
[2024-10-30 22:47] LABS: INTERNATIONAL NORM RATIO 1.1 (0.9-1.1); Prothrombin Time 13.1 SEC (10.9-12.4)
[2024-10-31] VITALS (10 sets, daily range): BP systolic 118–160; BP diastolic 44–66; PULSE 60–68; RESP 11–19; TEMP 36.4–37.3; O2SAT 94–98; BMI 26.3
--- NOTE | 2024-10-31 03:26 | PC.NURSE ---
pt asleep comfortably, respirations even and unlabored. call latham within reach, plan of care ongoing.
[2024-10-31 04:21] LABS: B Type Natriuretic Peptide 2642 pg/mL (<100)
[2024-10-31] MEDS: Levothyroxine Sodium 112 MCG, Levothyroxine Sodium 25 MCG 137 MCG PO (06:06)
[2024-10-31] MEDS: HYDROmorphone HCl 2 MG TABLET 4 MG PO ×3 (06:45→18:51)
[2024-10-31 06:49] LABS: Anion Gap 17 (12-20); Blood Urea Nitrogen 39 mg/dL (9-16); Calcium 9.1 mg/dL (8.4-10.2); Carbon Dioxide 25 mmol/L (22-29); Chloride 99 mmol/L (96-108); Glucose Random 98 mg/dL (60-115); Potassium 4.7 mmol/L (3.3-5.1); Sodium 136 mmol/L (135-145)
[2024-10-31 06:50] LABS: Creatinine Clr Calc Pharmacy 7.5; Estimated Glomerular Filt Rate 6
[2024-10-31 07:25] LABS: Glucose, Whole Blood 90 mg/dL (60-115)
--- NOTE | 2024-10-31 08:39 | P.PNIM_ITS ---
Subjective Subjective Date of Service: 10/31/24 Review of Systems Follow up ARF with hypoxia feeling better dialysis over the weekend Physical Exam 2 Vital Signs: Vital Signs: Last Vital Signs Temp 98.4 F 10/31/24 08:07 Pulse 66 10/31/24 08:07 Resp 17 10/31/24 08:07 BP 151/62 H 10/31/24 08:07 Pulse Ox 98 10/31/24 08:07 O2 Del Method Nasal Cannula 10/31/24 08:07 O2 Flow Rate 2 10/31/24 08:07 BMI result Body Mass Index 27.9 Appearing in no acute distress lung sounds are clear to auscultation heart regular rate rhythm, clear S1, S2 positive bowel sounds, abdomen is soft, nontender neuro patient is alert x3, no focal deficits Objective Data Active Medications Acetaminophen (Acetaminophen 325 Mg Tablet) 650 mg PO Q6H PRN PRN Reason: Pain, Mild 1-3,fever,headache Albuterol Sulfate (Albuterol Sulfate 90 Mcg 8 Gm Inhaler) 2 puff INHALE Q6H PRN PRN Reason: Shortness Of Breath Alprazolam (Alprazolam 0.5 Mg Tablet) 2 mg PO BID [facility] Last Admin: 10/30/24 21:34 Dose: 2 mg Documented By: ESVIN Alprazolam (Alprazolam 0.5 Mg Tablet) 0.5 mg PO DAILY PRN PRN Reason: Anxiety Amlodipine Besylate (Amlodipine Besylate 5 Mg Tablet) 5 mg PO BID [facility]; Protocol Last Admin: 10/30/24 20:57 Dose: 5 mg Documented By: ESVIN Atenolol (Atenolol 100 Mg Tablet) 100 mg PO DAILY [facility]; Protocol Atorvastatin Calcium (Atorvastatin Calcium 40 Mg Tablet) 40 mg PO DAILY [facility] Calcium Carbonate (Calcium Carbonate 750 Mg Tab.Chew) 750 mg PO Q4H PRN PRN Reason: Heartburn Glucose (Glucose Gel 15 Gm Gel..Gram.) 15 gm PO Q15M PRN; Protocol PRN Reason: per Hypoglycemia Standing Ord. Heparin Sodium (Porcine) (Heparin Sodium,Porcine 5,000 Unit/Ml Vial) 5,000 unit SUBCUT Q12H [facility] Last Admin: 10/30/24 20:57 Dose: 5,000 unit Documented By: ESVIN Hydromorphone HCl (Hydromorphone Hcl 2 Mg Tablet) 4 mg PO Q3H PRN PRN Reason: Severe Pain (Scale Score 7-10) Last Admin: 10/31/24 06:45 Dose: 4 mg Documented By: ESVIN Dextrose (D10) 250 mls @ 750 mls/hr IV Q15M PRN; Protocol PRN Reason: per Hypoglycemia Standing Ord. Insulin Human Lispro (Insulin Lispro 100 Unit/Ml 3 Ml Vial) 0 unit SUBCUT QIDACHS [facility]; Protocol Last Admin: 10/31/24 07:39 Dose: Not Given Documented By: JOE Non-Admin Reason: No Insulin Coverage Levothyroxine Sodium 112 mcg/ (Levothyroxine Sodium 25 mcg) 137 mcg PO DAILY@0600 [facility] Last Admin: 10/31/24 06:06 Dose: 137 mcg Documented By: ESVIN Magnesium Hydroxide (Milk Of Magnesia 30 Ml Oral.Susp) 30 ml PO DAILY PRN PRN Reason: Constipation Melatonin (Melatonin 3 Mg Tablet) 6 mg PO BEDTIME PRN PRN Reason: Insomnia Omeprazole (Omeprazole 20 Mg Capsule.Dr) 20 mg PO DAILY@0630 PRN PRN Reason: Heartburn Sevelamer Carbonate (Sevelamer Carbonate Tablet 800 Mg Tablet) 800 mg PO DAILY PRN PRN Reason: snack Sevelamer Carbonate (Sevelamer Carbonate Tablet 800 Mg Tablet) 800 mg PO TIDWM [facility] Last Admin: 10/30/24 18:14 Dose: Not Given Documented By: ARIANNE Non-Admin Reason: at Dialysis, needs to be taken with food Sodium Chloride (0.9 % Sodium Chloride Flush 3 Ml Syringe) [facility] Last Admin: 10/31/24 00:53 Dose: Not Given Documented By: ESVIN Non-Admin Reason: Previously Administered Sodium Zirconium Cyclosilicate (Sodium Zirconium Cyclosilicate 10 Gm Powd.Pack) 10 gm PO SUTUTHSA@0900 [facility] Vitamin D (Cholecalciferol (Vitamin D3) 25 Mcg Tablet) 25 mcg PO MOWEFR@0900 [facility] Labs 10/30/24 11:34 10/31/24 06:16 Labs: Laboratory Results - last 24 hr 10/30/24 10/30/24 10/30/24 10:46 11:34 11:35 MCV 93.9 MCH 32.4 MCHC 34.5 RDW 15.8 Plt Count 206 MPV 10.1 Immature Gran % (Auto) 0.3 Neut % (Auto) 75.0 H Lymph % (Auto) 8.3 L [place] % (Auto) 12.1 H Eos % (Auto) 3.6 Baso % (Auto) 0.7 Lymph # (Auto) 1.1 L [place] # (Auto) 1.6 H Eos # (Auto) 0.5 H Baso # (Auto) 0.1 Abs Immat Gran (auto) 0.04 H Absolute Neuts (auto) 10.0 H Absolute Nucleated RBC 0.000 Nucleated RBC % (auto) 0.0 Smear Tech's Comments VERIFIED PT INR Anion Gap Estim Creat Clear Calc Estimated GFR POC Glucose Random Glucose Estimat Average Glucose Cancelled Hemoglobin A1c % Cancelled Calcium Magnesium Total Bilirubin Direct Bilirubin AST ALT Alkaline Phosphatase Troponin I High Sens 30.9 D B-Natriuretic Peptide 2642 H Total Protein Albumin Influenza Type A (PCR) NEGATIVE Influenza Type B (PCR) NEGATIVE RSV RNA Qual (PCR) NEGATIVE SARS-CoV-2 RNA (RT-PCR) NEGATIVE 10/30/24 10/30/24 10/30/24 12:32 13:34 14:53 MCV MCH MCHC RDW Plt Count MPV Immature Gran % (Auto) Neut % (Auto) Lymph % (Auto) [place] % (Auto) Eos % (Auto) Baso % (Auto) Lymph # (Auto) [place] # (Auto) Eos # (Auto) Baso # (Auto) Abs Immat Gran (auto) Absolute Neuts (auto) Absolute Nucleated RBC Nucleated RBC % (auto) Smear Tech's Comments PT INR Anion Gap 21 H Estim Creat Clear Calc 6.9 Estimated GFR 5 POC Glucose 118 H 130 H Random Glucose 118 H Estimat Average Glucose Hemoglobin A1c % Calcium 8.9 Magnesium 2.0 Total Bilirubin 0.8 Direct Bilirubin 0.2 AST 25 ALT 14 Alkaline Phosphatase 70 Troponin I High Sens B-Natriuretic Peptide Total Protein 7.0 Albumin 4.1 Influenza Type A (PCR) Influenza Type B (PCR) RSV RNA Qual (PCR) SARS-CoV-2 RNA (RT-PCR) 10/30/24 10/30/24 10/30/24 17:31 20:56 22:32 MCV MCH MCHC RDW Plt Count MPV Immature Gran % (Auto) Neut % (Auto) Lymph % (Auto) [place] % (Auto) Eos % (Auto) Baso % (Auto) Lymph # (Auto) [place] # (Auto) Eos # (Auto) Baso # (Auto) Abs Immat Gran (auto) Absolute Neuts (auto) Absolute Nucleated RBC Nucleated RBC % (auto) Smear Tech's Comments PT 13.1 H INR 1.1 Anion Gap Estim Creat Clear Calc Estimated GFR POC Glucose 95 105 Random Glucose Estimat Average Glucose Hemoglobin A1c % Calcium Magnesium Total Bilirubin Direct Bilirubin AST ALT Alkaline Phosphatase Troponin I High Sens B-Natriuretic Peptide Total Protein Albumin Influenza Type A (PCR) Influenza Type B (PCR) RSV RNA Qual (PCR) SARS-CoV-2 RNA (RT-PCR) 10/31/24 10/31/24 06:16 07:16 MCV MCH MCHC RDW Plt Count MPV Immature Gran % (Auto) Neut % (Auto) Lymph % (Auto) [place] % (Auto) Eos % (Auto) Baso % (Auto) Lymph # (Auto) [place] # (Auto) Eos # (Auto) Baso # (Auto) Abs Immat Gran (auto) Absolute Neuts (auto) Absolute Nucleated RBC Nucleated RBC % (auto) Smear Tech's Comments PT INR Anion Gap 17 Estim Creat Clear Calc 7.5 Estimated GFR 6 POC Glucose 90 Random Glucose 98 Estimat Average Glucose Hemoglobin A1c % Calcium 9.1 Magnesium Total Bilirubin Direct Bilirubin AST ALT Alkaline Phosphatase Troponin I High Sens B-Natriuretic Peptide Total Protein Albumin Influenza Type A (PCR) Influenza Type B (PCR) RSV RNA Qual (PCR) SARS-CoV-2 RNA (RT-PCR) Assessment and Plan (1) Fluid overload: Status: Acute (2) Acute hyperkalemia: Status: Acute Plan 69M PMH ESRD, htn, dm, hypothryoid, mood disorder, bph, chronic diastolic chf, presented with sob found to be hypoxic with hyperkalemia Acute hypoxic respiratory failure secondary to acute on chronic diastolic CHF in a patient with end-stage renal disease s/p emergent HD upon admission. pt anuric Wean O2 as tolerated vision saturation greater than 91% Nephrology consult Acute hyperkalemia. Resolved due to above Improved with hemodialysis continue baseline lokelma hold losartan for now low k diet ESRD on HD MWF shedule, last HD 10/30 phosphate binders Hypertension Continue atenolol, amlodipine hold losartan for now due to hyperkalemia Hypothyroid Continue levothyroxine Diabetes diet controlled Continue insulin sliding scale Mood disorder Continue lorazepam ?chronic pain continue baseline hydromorphone DVT prophylaxis with heparin subQ Full code Patient with significant hypoxia needing high levels of O2 and hemodialysis therefore expected require at least 2 midnights inpatient Quality Stroke Does the patient have a stroke diagnosis?: No VTE Prior VTE?: No VTE Risk Level:: Medical - moderate - high VTE Device Contraindication: N/A - Device Ordered VTE Drug Contraindication: Treatment Not Indicated
[2024-10-31] MEDS: Heparin Sodium,Porcine 5,000 UNIT/ML VIAL 5000 UNIT SUBCUT ×2 (09:34→21:03)
[2024-10-31] MEDS: Atorvastatin Calcium 40 MG TABLET PO (09:35)
[2024-10-31] MEDS: atenoloL 100 MG TABLET PO (09:35)
[2024-10-31] MEDS: ALPRAZolam 0.5 MG TABLET 2 MG PO ×2 (09:35→14:15)
[2024-10-31] MEDS: Sevelamer Carbonate Tablet 800 MG TABLET PO ×3 (09:35→18:25)
[2024-10-31] MEDS: 0.9 % Sodium Chloride Flush 3 ML SYRINGE IVFLUSH ×3 (09:36→21:05)
[2024-10-31] MEDS: amLODIPine Besylate 5 MG TABLET PO ×2 (09:36→21:02)
[2024-10-31 12:06] LABS: Glucose, Whole Blood 159 mg/dL (60-115)
[2024-10-31] MEDS: Cholecalciferol (Vitamin D3) 25 MCG TABLET PO (12:29)
[2024-10-31] MEDS: Insulin Lispro 100 UNIT/ML 3 ML VIAL SUBCUT (14:14)
--- NOTE | 2024-10-31 14:21 | MHC.CM.PN ---
CM met with Patient at bedside in the ED and addressed IMM with him (original was given to Patient and a copy will be placed on the chart). Patient lives in a hose with his /Caregiver/HCP/Kyara, has HD @ [facility] in [place], and he does no wish to have [facility] again. CM has initiated and will follow for dc planning. PCP is Dr. Matias Tan and will transport to home.
[2024-10-31 17:20] LABS: Glucose, Whole Blood 87 mg/dL (60-115)
--- NOTE | 2024-10-31 18:59 | PC.NURSE ---
Pt reported at 1400 that he takes 2 mg PO Xanax with pain meds and requested his PM dose; admitting provider made aware and pt medicated per request; pharmacy made aware of schedule change and MAR adjusted
[2024-10-31] MEDS: ALPRAZolam 0.5 MG TABLET PO (21:02)
[2024-10-31 21:21] LABS: Glucose, Whole Blood 141 mg/dL (60-115)
[2024-11-01] MEDS: Calcium Carbonate 750 MG TAB.CHEW PO (00:37)
[2024-11-01 03:22] VITALS: BP 126/65; PULSE 64; RESP 17; TEMP 36.6; O2SAT 96
[2024-11-01] MEDS: Levothyroxine Sodium 112 MCG, Levothyroxine Sodium 25 MCG 137 MCG PO (06:05)
[2024-11-01] MEDS: HYDROmorphone HCl 2 MG TABLET 4 MG PO (06:05)
[2024-11-01] MEDS: Omeprazole 20 MG CAPSULE.DR PO (06:16)
[2024-11-01 07:13] LABS: Glucose, Whole Blood 99 mg/dL (60-115)
[2024-11-01 07:16] VITALS: BP 124/58; PULSE 63; RESP 20; TEMP 36.6; O2SAT 96
[2024-11-01] MEDS: ALPRAZolam 0.5 MG TABLET 2 MG PO (08:19)
[2024-11-01] MEDS: Heparin Sodium,Porcine 5,000 UNIT/ML VIAL 5000 UNIT SUBCUT (08:20)
[2024-11-01] MEDS: amLODIPine Besylate 5 MG TABLET PO (08:20)
[2024-11-01] MEDS: Atorvastatin Calcium 40 MG TABLET PO (08:20)
[2024-11-01] MEDS: Sevelamer Carbonate Tablet 800 MG TABLET PO (08:20)
[2024-11-01] MEDS: atenoloL 100 MG TABLET PO (08:20)
[2024-11-01] MEDS: 0.9 % Sodium Chloride Flush 3 ML SYRINGE IVFLUSH (08:27)
--- NOTE | 2024-11-01 09:50 | P.DS_ITS ---
DS: Providers Provider Date of Service: 11/01/24 Date of admission: 10/30/24 14:44 Date of discharge: 11/01/24 Primary care physician: Matias Tan MD Consults: 10/30/24 14:02 Consult to Nephrology Routine Consulting Provider: [facility] Reason for consultation: esrd; respiratory failure, hyperkalemia; needs urgent HD Has provider been notified: No DS: Diagnosis Discharge Diagnosis (1) Fluid overload: Status: Acute (2) Acute hyperkalemia: Status: Acute DS: Summary Hospital Course Hospital Course: History and physical as per admitting provider. This is a 69M with PMH ESRD on HD, htn, dm, hypothryoid, mood disorder, bph, chronic diastolic chf, presented with sob. He last had HD on Thursday. Today he developed worsening shortness of breath. He denies associated cough, fever, chills. Has no associated chest pain or palpitations. Denies any recent sick contacts. Chest x-ray in the emergency department was negative, negative for flu, RSV, COVID. Lab work significant for elevated creatinine with potassium of 6.1. In the emergency department he was noted to be hypoxic requiring non-rebreather. His case was discussed with nephrology who recommended admitting the patient for emergent dialysis. 69-year-old man treated for acute hypoxic respiratory failure secondary to acute on chronic diastolic congestive heart failure in patient with end-stage renal disease requiring emergent hemodialysis upon admission. Patient has a history of an urea. Was noted to also have acute hyperkalemia secondary to fluid overload and ESRD. Treated with baseline Lokelma, losartan held and on low potassium diet. Patient has been weaned off oxygen and is tolerating room air. Seen and evaluated by Nephrology. Agree to discharge home to continue regular dialysis schedule Thursday, Thursday and Thursday. Patient is hemodynamically stable without any shortness of breath or notable fluid overload. End-stage renal disease on dialysis. Continue usual schedule. Continue phosphate binders Hypertension. Continue atenolol, amlodipine, losartan Hypothyroidism. Continue levothyroxine Diabetes mellitus type 2. Diet controlled Mental health. Continue lorazepam Chronic pain. Continue baseline hydromorphone. Time Attestation Discharge Coordination Time (in mins): 42 Quality: Safe Use of Opioids Does Pt have an Active Cancer Diagnosis on the Problem List?: No Quality: Stroke Does the patient have a stroke diagnosis?: No Physical Exam Vital Signs: Vital Signs: Last Vital Signs Temp 97.8 F 11/01/24 07:16 Pulse 63 11/01/24 07:16 Resp 20 11/01/24 07:16 BP 124/58 L 11/01/24 07:16 Pulse Ox 96 11/01/24 07:16 O2 Del Method Nasal Cannula 11/01/24 07:16 O2 Flow Rate 1 11/01/24 07:16 BMI result Body Mass Index 26.3 Appearing in no acute distress head is normocephalic atraumatic eyes pupils are PERRLA sclera is anicteric mouth throat mucous membranes are intact and moist neck is supple no lymphadenopathy, no JVD noted lung sounds are clear to auscultation heart regular rate rhythm, clear S1, S2 positive bowel sounds, abdomen is soft, nontender neuro patient is alert x3, no focal deficits DS: Data Data Completed and Pending Completed studies during hospitalization [Text1]: Procedures Assistance with Respiratory Ventilation, Less than 24 Consecutive Hours, Continuous Positive Airway Pressure (11/04/23) Performance of Urinary Filtration, Intermittent, Less than 6 Hours Per Day (06/19/24) Labs on day of discharge: Laboratory Results - last 24 hr 10/31/24 10/31/24 10/31/24 11:59 17:12 21:12 POC Glucose 159 H 87 141 H 11/01/24 07:09 POC Glucose 99 Discharge Plan Discharge Anticipated Discharge Date/Time: 11/01/24 09:46 Patient Disposition: Home, Self-Care Discharge Diagnosis: Acute hypoxic respiratory failure Acute hyperkalemia Referrals: Sawyer Davis MD [Physician] - Matias Tan MD [Primary Care Provider] - Discharge Medications: Continued levothyroxine 137 mcg tablet 1 tab PO DAILY@0600 atenolol 100 mg tablet 1 tab PO DAILY (DME) FreeStyle Lite Strips Strip MISCELLANEOUS TID dextroamphetamine-amphetamine 20 mg tablet 1 tab PO TID@0800,1400,1800 (DME) pen needle, diabetic [BD Ultra-Fine Short Pen Needle] 31 gauge x 5/16 needle subcut DAILY hydromorphone 4 mg tablet 4 mg PO Q3H PRN (Reason: Severe Pain (Scale Score 7-10)) cholecalciferol (vitamin D3) [Vitamin D3] 25 mcg (1,000 unit) Tablet 25 mcg PO MOWEFR@0900 Rx Instructions: on dialysis days Lokelma 10 gram Powder In Packet 10 g PO SUTUTHSA@0900 amlodipine 5 mg tablet 5 mg PO BID albuterol sulfate [Ventolin HFA] 90 mcg/actuation HFA aerosol inhaler 2 puff INHALATION Q6H PRN (Reason: Shortness Of Breath) atorvastatin 40 mg tablet 40 mg PO DAILY pantoprazole 40 mg tablet,delayed release (DR/EC) 40 mg PO DAILY@0630 PRN (Reason: Heartburn) alprazolam 0.5 mg tablet 0.5 mg PO DAILY PRN (Reason: anxiety attack) alprazolam 2 mg tablet 2 mg PO BID losartan 100 mg tablet 100 mg PO DAILY sevelamer carbonate 800 mg tablet 800 mg PO DAILY PRN (Reason: snack) sevelamer carbonate 800 mg tablet 800 mg PO TIDWM Rx Instructions: must administer with a meal/food insulin lispro [Humalog KwikPen Insulin] 100 unit/mL insulin pen 1 sliding scale dose subcut TIDAC Discharge Orders: Discharge Order (Routine); Ordered 11/01/24 Ordered By: Sara Pizarro Diet: Advance to usual diet Activity on Discharge: As tolerated Stand Alone Forms: Patient Portal Discharge page Print Language: Divehi Care Plan Goals: Continue your normal dialysis schedule Health Concerns: Acute hypoxic respiratory failure Acute hyperkalemia Plan of Treatment: Follow-up with primary care provider as needed Take all medications as prescribed Assessment: See discharge summary
[2024-11-01] MEDS: Sodium Zirconium Cyclosilicate 10 GM POWD.PACK PO (10:39)
--- NOTE | 2024-11-01 11:36 | PM.CNNEP ---
History of Present Illness Reason for Consult Consult date: 11/01/24 Chief Complaint Chief complaint: Fluid overload, hypoxia, hyperkalemia History of Present Illness Narrative: 69M with PMH ESRD on HD, htn, dm, hypothryoid, mood disorder, bph, chronic diastolic chf, presented with sob. He last had HD on Thursday. Today he developed worsening shortness of breath. He denies associated cough, fever, chills. Has no associated chest pain or palpitations. Denies any recent sick contacts. Chest x-ray in the emergency department was negative, negative for flu, RSV, COVID. Lab work significant for elevated creatinine with potassium of 6.1. In the emergency department he was noted to be hypoxic requiring non-rebreather. His case was discussed with nephrology who recommended admitting the patient for emergent dialysis. Underwent emergent dialysis on 10/30/2024 Review of Systems Constitutional: Denies fever(s) and Denies weight loss Cardiovascular: Denies chest pain Respiratory: Denies cough and Denies hemoptysis Gastrointestinal: Denies abdominal pain, Denies diarrhea and Denies nausea Musculoskeletal: Denies back pain Denies focal weakness [facility] Past Medical History Medical History (Updated 11/01/24 @ 11:37 by Teja Quinn MD) End stage kidney disease ESRD needing dialysis Secondary hyperparathyroidism (of renal origin) Anemia in chronic kidney disease DONIS (acute kidney injury) End stage renal disease on dialysis Diabetes Kidney failure HTN (hypertension) Social History Social History Household Members: Spouse Housing: House Are you a primary reproductive healthcare assistant to a significant other at home: No Do you presently have visiting nurse or other home services: No Alcohol intake: never Comment: [place] RISK IN PL[place] FOR O2 AND WEAKNESS REPORTED S/P HD TODAY Patient Tobacco Use Status: Never used Tobacco Cigarette Packs Per Day: 0 Cigarettes Per Day: 0.0 Years Smoked: NA e-Cigarette/Vaping Use: Never Used Second Hand Smoke Exposure: No Advance Directives Date on File: 09/07/23 service: No Meds Allergies Allergy/AdvReac Type Severity Reaction Status Date / Time Penicillins [PENICILLINS] Allergy Unknown RASH Verified 10/30/24 09:15 tramadol [From ULTRAM] Allergy Unknown RASH Verified 10/30/24 09:15 trazodone [TRAZODONE] Allergy Unknown PRIAPISM Verified 10/30/24 09:15 risperidone [RISPERIDONE] AdvReac Severe dizzy, EPS Verified 10/30/24 09:15 Active Medications: Current Medications Acetaminophen (Acetaminophen 325 Mg Tablet) 650 mg PO Q6H PRN PRN Reason: Pain, Mild 1-3,fever,headache Albuterol Sulfate (Albuterol Sulfate 90 Mcg 8 Gm Inhaler) 2 puff INHALE Q6H PRN PRN Reason: Shortness Of Breath Alprazolam (Alprazolam 0.5 Mg Tablet) 2 mg PO BID@0900,1400 [facility] Last Admin: 11/01/24 08:19 Dose: 2 mg Alprazolam (Alprazolam 0.5 Mg Tablet) 0.5 mg PO BEDTIME PRN PRN Reason: Anxiety Last Admin: 10/31/24 21:02 Dose: 0.5 mg Amlodipine Besylate (Amlodipine Besylate 5 Mg Tablet) 5 mg PO BID [facility]; Protocol Last Admin: 11/01/24 08:20 Dose: 5 mg Atenolol (Atenolol 100 Mg Tablet) 100 mg PO DAILY [facility]; Protocol Last Admin: 11/01/24 08:20 Dose: 100 mg Atorvastatin Calcium (Atorvastatin Calcium 40 Mg Tablet) 40 mg PO DAILY [facility] Last Admin: 11/01/24 08:20 Dose: 40 mg Calcium Carbonate (Calcium Carbonate 750 Mg Tab.Chew) 750 mg PO Q4H PRN PRN Reason: Heartburn Last Admin: 11/01/24 00:37 Dose: 750 mg Glucose (Glucose Gel 15 Gm Gel..Gram.) 15 gm PO Q15M PRN; Protocol PRN Reason: per Hypoglycemia Standing Ord. Heparin Sodium (Porcine) (Heparin Sodium,Porcine 5,000 Unit/Ml Vial) 5,000 unit SUBCUT Q12H [facility] Last Admin: 11/01/24 08:20 Dose: 5,000 unit Hydromorphone HCl (Hydromorphone Hcl 2 Mg Tablet) 4 mg PO Q3H PRN PRN Reason: Severe Pain (Scale Score 7-10) Last Admin: 11/01/24 06:05 Dose: 4 mg Dextrose (D10) 250 mls @ 750 mls/hr IV Q15M PRN; Protocol PRN Reason: per Hypoglycemia Standing Ord. Insulin Human Lispro (Insulin Lispro 100 Unit/Ml 3 Ml Vial) 0 unit SUBCUT NADER [facility]; Protocol Last Admin: 11/01/24 07:43 Dose: Not Given Levothyroxine Sodium 112 mcg/ (Levothyroxine Sodium 25 mcg) 137 mcg PO DAILY@0600 [facility] Last Admin: 11/01/24 06:05 Dose: 137 mcg Magnesium Hydroxide (Milk Of Magnesia 30 Ml Oral.Susp) 30 ml PO DAILY PRN PRN Reason: Constipation Melatonin (Melatonin 3 Mg Tablet) 6 mg PO BEDTIME PRN PRN Reason: Insomnia Omeprazole (Omeprazole 20 Mg Capsule.Dr) 20 mg PO DAILY@0630 PRN PRN Reason: Heartburn Last Admin: 11/01/24 06:16 Dose: 20 mg Sevelamer Carbonate (Sevelamer Carbonate Tablet 800 Mg Tablet) 800 mg PO DAILY PRN PRN Reason: snack Sevelamer Carbonate (Sevelamer Carbonate Tablet 800 Mg Tablet) 800 mg PO TIDWM [facility] Last Admin: 11/01/24 08:20 Dose: 800 mg Sodium Chloride (0.9 % Sodium Chloride Flush 3 Ml Syringe) [facility] Last Admin: 11/01/24 08:27 Dose: 3 ml Sodium Zirconium Cyclosilicate (Sodium Zirconium Cyclosilicate 10 Gm Powd.Pack) 10 gm PO SUTUTHSA@0900 [facility] Last Admin: 11/01/24 10:39 Dose: 10 gm Vitamin D (Cholecalciferol (Vitamin D3) 25 Mcg Tablet) 25 mcg PO MOWEFR@0900 [facility] Last Admin: 10/31/24 12:29 Dose: 25 mcg Home Medications ?Medication ?Instructions ?Recorded ?Confirmed ?Last Taken ?Type atenolol 100 mg tablet 1 tab PO DAILY 07/11/21 10/30/24 10/30/24 09:00 History blood sugar diagnostic (FreeStyle 07/11/21 10/30/24 10/30/24 09:00 History Lite Strips) dextroamphetamine-amphetamine 20 1 tab PO TID@0800,1400,1800 07/11/21 10/30/24 10/30/24 09:00 History mg tablet levothyroxine 137 mcg tablet 1 tab PO DAILY@0600 07/11/21 10/30/24 10/30/24 09:00 History pen needle, diabetic 31 gauge x 07/11/21 10/30/24 10/30/24 09:00 History 5/16 (BD Ultra-Fine Short Pen Needle) amlodipine 5 mg tablet 5 mg PO BID 09/03/23 10/30/24 10/30/24 09:00 History albuterol sulfate 90 mcg/actuation 2 puff inhalation Q6H PRN 10/29/23 10/30/24 Unknown History aerosol inhaler (Ventolin HFA) Shortness Of Breath atorvastatin 40 mg tablet 40 mg PO DAILY 02/22/24 10/30/24 10/30/24 09:00 History pantoprazole 40 mg tablet,delayed 40 mg PO DAILY@0630 PRN Heartburn 02/22/24 10/30/24 06/18/24 History release cholecalciferol (vitamin D3) 25 25 mcg PO MOWEFR@0900 06/19/24 10/30/24 10/28/24 History mcg (1,000 unit) tablet (Vitamin D3) hydromorphone 4 mg tablet 4 mg PO Q3H PRN Severe Pain (Scale 06/19/24 10/30/24 06/18/24 History Score 7-10) sodium zirconium cyclosilicate 10 10 g PO SUTUTHSA@0900 06/19/24 10/30/24 10/30/24 09:00 History gram oral powder packet (Lokelma) alprazolam 0.5 mg tablet 0.5 mg PO DAILY PRN anxiety attack 10/30/24 10/30/24 10/30/24 09:00 History alprazolam 2 mg tablet 2 mg PO BID 10/30/24 10/30/24 10/30/24 09:00 History insulin lispro 100 unit/mL 1 sliding scale dose subcut TIDAC 10/30/24 10/30/24 10/30/24 09:00 History subcutaneous pen (Humalog KwikPen (U-100) Insulin) losartan 100 mg tablet 100 mg PO DAILY 10/30/24 10/30/24 10/30/24 09:00 History sevelamer carbonate 800 mg tablet 800 mg PO DAILY PRN snack 10/30/24 10/30/24 Unknown History sevelamer carbonate 800 mg tablet 800 mg PO TIDWM 10/30/24 10/30/24 10/30/24 09:00 History Physical Exam Vital Signs: Last Vital Signs Temp 97.8 F 11/01/24 07:16 Pulse 63 11/01/24 07:16 Resp 20 11/01/24 07:16 BP 124/58 L 11/01/24 07:16 Pulse Ox 96 11/01/24 07:16 O2 Del Method Nasal Cannula 11/01/24 07:16 O2 Flow Rate 1 11/01/24 07:16 BMI result Body Mass Index 26.3 Const General: comfortable; No acute distress Orientation/consciousness: patient oriented x3 Eyes General: appearance normal, both eyes and all related structures Visual Saavedra: normal visual saavedra by confrontation Neck Neck: Yes supple and Yes no JVD Resp Effort & Inspection: normal respiratory effort and respiratory effort not decreased Auscultation: rhonchi Cardio Palpation: no palpable S3 and no palpable S4 Heart sounds: no rubs GI Inspection: Yes normal to inspection Palpation (GI): Soft to palpation Percussion: Yes normal to percussion Auscultation: normal bowel sounds General: Yes no CVA tenderness Back/Spine/Pelvis Back: no CVA tenderness Skin General skin exam: no petechiae and no purpura Neuro General: patient oriented x3 and no focal motor deficits Extrem General: No clubbing and No edema Results Lab Results 10/30/24 11:34 10/31/24 06:16 Lab results: Chemistry 10/30/24 10/31/24 12:32 06:16 Sodium 139 136 Potassium 6.1 H* 4.7 D Carbon Dioxide 23 25 BUN 46 H 39 H Creatinine 9.67 H* 8.91 H* Calcium 8.9 9.1 Hematology 10/30/24 11:34 WBC 13.4 H Hgb 10.1 L Plt Count 206 Assessment and Plan (1) Acute hyperkalemia: Status: Acute (2) End stage kidney disease: Status: Acute Plan 69-year-old man with end stage renal disease admitted with hyperkalemia and fluid overload. He underwent emergency dialysis for above abnormalities. At present hyperkalemia stance corrected. Fluid status seems optimal. He has no overt signs or symptoms of uremia. Next dialysis will be on Thursday11/02/2024. Procedures Date of Service Date of Service: 11/01/24
--- NOTE | 2024-11-01 11:42 | MHC.CM.PN ---
Pt is medically cleared for discharge home with resumption of outpt HD services. Pts will transport him home.
== END 2024-11-01 10:45 | disposition home or self-care (01) | DRG 291 ==
LOC: HO.ED 14:22 → HO.EDOVER 14:44 → HO.IMC 10-31 19:10 → HO.EDOVER 10-31 19:31 → HO.IMC 10-31 19:35
PROVIDERS: Physician Assistant; Admitting Provider Physician Assistant Medical; Emergency Provider Emergency Medicine Emergency Medical Services; PCP Family Medicine; Visit Provider Nurse Practitioner Acute Care
DX: I13.2 Hypertensive heart and chronic kidney disease with heart failure and with stage 5 chronic kidney disease, or end stage renal disease (principal); I50.33 Acute on chronic diastolic (congestive) heart failure; N18.6 End stage renal disease; J96.01 Acute respiratory failure with hypoxia; G89.29 Other chronic pain; F39 Unspecified mood [affective] disorder; E11.22 Type 2 diabetes mellitus with diabetic chronic kidney disease; E87.5 Hyperkalemia; E03.9 Hypothyroidism, unspecified; N40.0 Benign prostatic hyperplasia without lower urinary tract symptoms; Z99.2 Dependence on renal dialysis; Z20.822 Contact with and (suspected) exposure to COVID-19; Z91.119 Patient's noncompliance with dietary regimen due to unspecified reason; Z79.4 Long term (current) use of insulin; Z79.890 Hormone replacement therapy; Z79.899 Other long term (current) drug therapy
CPT/HCPCS: 0241U; 36415; 71045; 80048; 80076; 82947; 83735; 83880; 84484; 85025; 85610; 90999; 93005; 99285; J0613; J1644; J1940

== ENCOUNTER → 2024-10-30 10:18 | Outpatient (BNV) | payer MEDICARE, SELFPAY | PROVIDERS: Admitting Provider Physician Assistant Medical; Emergency Provider Emergency Medicine Emergency Medical Services; PCP Family Medicine; Visit Provider Internal Medicine Cardiovascular Disease | DX: R94.31 Abnormal electrocardiogram [ECG] [EKG] (principal) | CPT/HCPCS: 93010 ==

== ENCOUNTER → 2024-10-30 10:19 | Outpatient (BNV) | payer MEDICARE, SELFPAY | PROVIDERS: PCP Family Medicine; Visit Provider Specialist | DX: R06.02 Shortness of breath (principal) | CPT/HCPCS: 71045 ==

== ENCOUNTER → 2024-10-30 14:44 | Outpatient (BNV) | payer MEDICARE, SELFPAY | PROVIDERS: Admitting Provider Physician Assistant Medical; Emergency Provider Emergency Medicine Emergency Medical Services; PCP Family Medicine; Visit Provider Nurse Practitioner Acute Care | DX: E87.70 Fluid overload, unspecified (principal); E87.5 Hyperkalemia | CPT/HCPCS: 99232; 99239 ==

== ENCOUNTER → 2024-10-30 14:44 | Outpatient (BNV) | payer MEDICARE, SELFPAY | PROVIDERS: Admitting Provider Physician Assistant Medical; Emergency Provider Emergency Medicine Emergency Medical Services; PCP Family Medicine; Visit Provider Internal Medicine Hypertension Specialist | DX: E87.5 Hyperkalemia (principal); N18.6 End stage renal disease | CPT/HCPCS: 99223 ==

== ENCOUNTER 2024-11-02 10:08 | Inpatient (IN) | payer MEDICARE, SELFPAY ==
--- NOTE | ~2024-11-02 | XR_ITS ---
EXAMINATION: XR CHEST CLINICAL INFORMATION: weakness COMPARISON: 10/30/2024. 06/19/2024. TECHNIQUE: Frontal view of the chest was obtained. FINDINGS: Low lung volumes. Mild bronchovascular crowding. Lungs otherwise clear. No effusions or pneumothorax. Prominent pulmonary arteries again noted in the hilar regions. Heart size is normal. There is no soft tissue or bone abnormality. XR/XR chest 1V IMPRESSION: 1. Low lung volumes with bronchovascular crowding. Prominent pulmonary arteries. No active pulmonary disease. Electronically signed by: Kiran Prescott MD 11/02/2024 11:46 AM EST
--- NOTE | ~2024-11-02 | CT_ITS ---
CLINICAL HISTORY: abdominal pain CT abdomen and pelvis without contrast Comparison: CT/[place] - CT ABDOMEN PELVIS WO CON - 07/11/21 09:40 EDT Findings: The lung bases are clear. Normal gallbladder and bile ducts. Unremarkable liver, pancreas, spleen, and adrenal glands. No significant abnormality of the kidneys, ureters, or urinary bladder. Moderately enlarged prostate. No free fluid or free air in the abdomen or pelvis. No significant abnormality of the stomach, small bowel, appendix, or colon. No acute fracture or suspicious bone abnormality. IMPRESSION: No acute findings. This document has been electronically signed by: Anthony Winters MD on 11/04/2024 22:56:54
[2024-11-02 11:03] VITALS: BP 144/58; PULSE 71; RESP 18; TEMP 36.7; O2SAT 99; BMI 23.4
--- NOTE | 2024-11-02 11:03 | ED_ITS ---
HPI - General Adult General Chief complaint: Altered Mental Status Stated complaint: Vomiting Diarrhea ? Hallucinations Time Seen by Provider: 11/02/24 11:22 Source: patient Mode of arrival: ambulatory Limitations: no limitations History of Present Illness ED Provider: SOPHIE MILLS PA-C HPI narrative: 69 year old male with pmhx significant for ESRD on HD, HTN, DM, hypothyroid, mood disorder, BPH, chronic diastolic HF here with his for evaluation of acute vomiting and diarrhea which began at 0300 this morning. Patient was recently admitted to [facility] on 10/30 for fluid overload and hyperkalemia. He was last dialyzed 2 days ago. He was feeling better and was ultimately discharged yesterday. He reports waking up around 0300 this morning with vomiting and diarrhea. Reports multiple episodes over the last few hours. He missed his HD today d/t feeling unwell. Reports associated lower abdominal discomfort. Denies fever, chills, flank pain, cough, shortness of breath, chest pain. Related Data Home Medications ?Medication ?Instructions ?Recorded ?Confirmed atenolol 100 mg tablet 1 tab PO DAILY 07/11/21 11/02/24 blood sugar diagnostic (FreeStyle 07/11/21 10/30/24 Lite Strips) dextroamphetamine-amphetamine 20 1 tab PO TID@0800,1400,1800 07/11/21 11/02/24 mg tablet levothyroxine 137 mcg tablet 1 tab PO DAILY@0600 07/11/21 11/02/24 pen needle, diabetic 31 gauge x 07/11/21 10/30/24 5/16 (BD Ultra-Fine Short Pen Needle) amlodipine 5 mg tablet 5 mg PO BID 09/03/23 11/02/24 albuterol sulfate 90 mcg/actuation 2 puff inhalation Q6H PRN 10/29/23 11/02/24 aerosol inhaler (Ventolin HFA) Shortness Of Breath atorvastatin 40 mg tablet 40 mg PO DAILY 02/22/24 11/02/24 cholecalciferol (vitamin D3) 25 25 mcg PO SUTUTHSA@0900 06/19/24 11/02/24 mcg (1,000 unit) tablet (Vitamin D3) hydromorphone 4 mg tablet 4 mg PO Q3H PRN Severe Pain (Scale 06/19/24 11/02/24 Score 7-10) sodium zirconium cyclosilicate 10 10 g PO RIKY@0900 06/19/24 11/02/24 gram oral powder packet (Lokelma) alprazolam 0.5 mg tablet 0.5 mg PO DAILY PRN anxiety attack 10/30/24 11/02/24 alprazolam 2 mg tablet 2 mg PO BID 10/30/24 11/02/24 insulin lispro 100 unit/mL 1 sliding scale dose subcut TIDAC 10/30/24 11/02/24 subcutaneous pen (Humalog KwikPen (U-100) Insulin) losartan 100 mg tablet 100 mg PO DAILY 10/30/24 11/02/24 sevelamer carbonate 800 mg tablet 800 mg PO DAILY PRN snack 10/30/24 11/02/24 sevelamer carbonate 800 mg tablet 800 mg PO TIDWM 10/30/24 11/02/24 Allergies Allergy/AdvReac Type Severity Reaction Status Date / Time Penicillins [PENICILLINS] Allergy Unknown RASH Verified 11/02/24 11:04 tramadol [From ULTRAM] Allergy Unknown RASH Verified 11/02/24 11:04 trazodone [TRAZODONE] Allergy Unknown PRIAPISM Verified 11/02/24 11:04 risperidone [RISPERIDONE] AdvReac Severe dizzy, EPS Verified 11/02/24 11:04 Review of Systems 2 Review of Systems: Constitutional: No fever, chills, fatigue, night sweats, weight changes ENT/Mouth: No ear pain, hearing loss, nasal congestion, sinus pain, rhinorrhea, sore throat Eyes: No eye pain, swelling, redness, vision changes, discharge Cardio: No chest pain, palpitations, BENAVIDES, orthopnea, peripheral edema Pulm: No SOB, cough, sputum, wheezing, dyspnea, hemoptysis GI: No hematemesis, diarrhea, constipation, hematochezia, melena, +N/V/D, +abd pain : No irregular bleeding, dysuria, frequency, urgency, hesitancy, hematuria, flank pain, urinary flow changes, urinary incontinence or retention MSK: No back pain, neck pain, joint pain, myalgias Skin: No lesions, rashes Neuro: No weakness, numbness, paresthesias, LOC, dizziness, headache Psych: No anxiety/panic, depression, SI/HI, AH/VH All other systems reviewed and are negative. PMFSH Past Medical History Attestation statement: The following information was validated with the patient. Source: old records reviewed and nursing notes reviewed Medical History End stage kidney disease ESRD needing dialysis Secondary hyperparathyroidism (of renal origin) Anemia in chronic kidney disease DONIS (acute kidney injury) End stage renal disease on dialysis Diabetes Kidney failure HTN (hypertension) Social History Social History Household Members: Spouse Housing: House Are you a primary healthcare marketer to a significant other at home: No Do you presently have visiting nurse or other home services: No Alcohol intake: never Comment: HIGH [place]ALL[place] RISK IN PLACE FOR O2 AND WEAKNESS REPORTED S/P HD TODAY Patient Tobacco Use Status: Never used Tobacco Cigarette Packs Per Day: 0 Cigarettes Per Day: 0.0 Years Smoked: NA Smoked in Last 30 Days: No e-Cigarette/Vaping Use: Never Used Second Hand Smoke Exposure: No Use of substances other than those prescribed or required for medical reasons: No Advance Directives: Yes Advance Directives on File: Yes Advance Directives Date on File: 09/07/23 Do you have a plan to hurt others: No Plan service: No Physical Exam ED Vital Signs: Vital Signs - 24 hr 11/02/24 11:03 Temperature 98.1 F Pulse Rate 71 Respiratory Rate 18 Blood Pressure 144/58 H Pulse Oximetry 99 Oxygen Delivery Method Room Air BMI result Body Mass Index 23.4 hypertensive, vitals otherwise wnl General: tired appearing, in NAD. Skin: Warm, dry, intact. No rashes or lesions. Head: Normocephalic, atraumatic. EENT: Hearing is intact b/l. Conjunctiva clear. PERRLA. EOM intact. mucous membranes dry. Neck: Supple without LAD Cardiac: Chest wall symmetric. RRR Lungs: Normal respiratory effort without accessory muscle use. CTA bilaterally. No rales, rhonchi, or wheezes.? Abdomen: Soft, nondistended, mildly tender to palpation of the lower abdomen without rebound or guarding. No cvat bilaterally. Normoactive bowel sounds. Ext: Upper and lower extremities atraumatic, without tenderness, deformity, swelling or erythema. Full ROM throughout. Neuro: AOx3. Normal speech. Ambulating with steady gait. Psych: Appropriate mood and affect. Responds appropriately to questions. Course Course Course Narrative: RME, this is a rapid medical exam performed by Uli Shearer please refer to primary provider for complete H&P- 69-year-old male with history of end-stage renal disease on dialysis, hypertension,, hypothyroidism, mood disorder, CHF presents for evaluation of vomiting. He was admitted here on 10/30/2024 and discharged yesterday. He was apparently doing well last night after being discharged but started having vomiting and diarrhea today and his seems somewhat confused. Plan for repeat labs. Reevaluation(s) Reevaluation #1: [id number] -- delay in obtaining labs d/t multiple failed attempts at drawing blood. ultimately IV line established. CBC shows leukocytosis to 11.4 with left shift. Normocytic anemia, chronic when compared to priors. H&H stable and above transfusion threshold. Chemistry showing hyponatremia to 133. Hyperkalemia to 6.9 - discussed w/ lab, confirmed this is not hemolyzed. Gap of 27. BUN 97, creatinine 13.57. This is quite elevated from his baseline ESRD. His labs 2 days ago showed BUN of 39 and creatinine of 8.91. Likely secondary to multiple episodes of vomiting and diarrhea. Random glucose 138. Lipase elevated at 265. EKG showing normal sinus rhythm with a rate of 71 beats per minute, no acute ischemic changes or ST elevations. Negative COVID, flu, RSV. stool culture ordered. > discussed case with my attending dr. rubio. 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 Calcium gluconate, dextrose, insulin, sodium bicarb ordered. I reached out to on-call garage supervisor, Dr. Quinn, who will be arranging emergent dialysis. will speak w/ dr. thornton for planned admission [id number] -- Dr. Thornton has accepted patient admission. Patient to be taken to dialysis shortly. stable. Medications Administered Generic Name Dose Route Start Last Admin Trade Name Freq PRN Reason Stop Dose Admin Dextrose 1,000 mls @ 250 mls/hr 11/02/24 14:30 11/02/24 15:03 D10 IVCONT 250 mls/hr .Q4H FRANCINE Administration Discontinued Medications Generic Name Dose Route Start Last Admin Trade Name Freq PRN Reason Stop Dose Admin Calcium Gluconate 1 gm in 50 mls @ 50 mls/hr 11/02/24 14:29 11/02/24 14:52 Calcium Gluconate IV 11/02/24 15:28 50 mls/hr ONCE ONE Administration Insulin Human Regular 10 unit 11/02/24 14:24 11/02/24 14:51 Insulin Regular, Human 100 Unit/Ml 10 Ml Vial IVPUSH 11/02/24 14:25 10 unit ONCE ONE Administration Ondansetron HCl 4 mg 11/02/24 12:05 11/02/24 13:36 Ondansetron Hcl 4 Mg/2 Ml Vial IVPUSH 11/02/24 12:06 4 mg ONCE ONE Administration Sodium Bicarbonate 50 meq 11/02/24 14:36 11/02/24 14:53 Sodium Bicarbonate 8.4% 50 Meq/50 Ml Syringe IVPUSH 11/02/24 14:37 50 meq ONCE ONE Administration Medical Decision Making Medical Decision Making [facility] Narrative: 69 year old male with pmhx significant for ESRD on HD, HTN, DM, hypothyroid, mood disorder, BPH, chronic diastolic HF here with his for evaluation of acute vomiting and diarrhea which began at 0300 this morning. Patient was hypertensive to 144/58, vitals otherwise WNL. Afebrile. Not hypoxic. Not tachycardic. abdomen is soft, ND, mildly ttp along lower abdomen without rebound tenderness or guarding. normoactive bs. no cvat b/l. Differential diagnosis includes gastroenteritis, anemia, electrolyte abnormality, dehydration, viral serology, DONIS Plan for labs, EKG, chest x-ray, viral swabs, stool culture, zofran, re- evaluation Differential Diagnosis Differential Diagnoses: The differential diagnosis associated with the presentation includes as above. Admission/Observation Consideration of admission/observation: Escalation of care including admission/observation considered Patient to be admitted to medicine for acute hyperkalemia, acute on chronic CKD requiring emergent dialysis Consult Healthcare Provider Management of the patient was discussed with: Hospitalist and Manager Shop Dr. Thornton - hospitalist Dr. Quinn - nephrology Lab Data [facility] Lab Attestation statement: I reviewed the patient's lab results. as above. 11/02/24 13:09 11/02/24 13:09 Labs: Lab Results 11/02/24 11/02/24 Range/Units 11:37 13:09 WBC 11.4 H (4.8-10.8) X10*3/uL RBC 3.19 L (4.60-5.80) X10*6/uL Hgb 10.5 L (14.0-18.0) g/dl Hct 29.5 L (42.0-52.0) % MCV 92.5 (80.0-98.0) fL MCH 32.9 (27.0-33.0) pg MCHC 35.6 (31.0-36.0) g/dl RDW 15.6 (11.0-16.0) % Plt Count 223 (160-400) X10*3/uL MPV 9.5 (9.4-12.4) fL Immature Gran % (Auto) 0.3 (0.0-0.4) % Neut % (Auto) 88.9 H (45-73) % Lymph % (Auto) 3.9 L (20-40) % [place] % (Auto) 4.8 (2-11) % Eos % (Auto) 1.7 (0-4) % Baso % (Auto) 0.4 (0-2) % Lymph # (Auto) 0.5 L (1.2-4.9) X10*3/uL [place] # (Auto) 0.6 (0.1-1.2) X10*3/uL Eos # (Auto) 0.2 (0.0-0.4) X10*3/uL Baso # (Auto) 0.0 (0.0-0.2) X10*3/uL Abs Immat Gran (auto) 0.03 (0.00-0.03) X10*3/uL Absolute Neuts (auto) 10.1 H (2.0-8.3) x10*3/uL Absolute Nucleated RBC 0.000 (0.0-0.012) X10*3/uL Nucleated RBC % (auto) 0.0 (0.0-0.2) /100WBC Sodium 133 L (135-145) mmol/L Potassium 6.9 H* D (3.3-5.1) mmol/L Chloride 93 L (96-108) mmol/L Carbon Dioxide 20 L (22-29) mmol/L Anion Gap 27 H (12-20) BUN 97 H (9-16) mg/dL Creatinine 13.57 H* (0.5-1.4) mg/dL Estim Creat Clear Calc 4.5 Estimated GFR 4 Random Glucose 130 H (60-115) mg/dL Calcium 7.9 L D (8.4-10.2) mg/dL Total Bilirubin 0.8 (0.0-1.0) mg/dL AST 21 (5-37) U/L ALT 10 (0-40) U/L Alkaline Phosphatase 70 (39-117) U/L Total Protein 6.9 (6.5-8.0) g/dL Albumin 4.0 (3.5-5.0) g/dL Lipase 265 H (8-78) U/L Influenza Type A (PCR) NEGATIVE (Negative) Influenza Type B (PCR) NEGATIVE (Negative) RSV RNA Qual (PCR) NEGATIVE (Negative) SARS-CoV-2 RNA (RT-PCR) NEGATIVE (Negative) Independent Interpretation I performed an independent interpretation of an: EKG and Plain X-Ray Interpretation: EKG showing NSR w/ rate of 71 bpm, no acute ischemic changes or st elevations. CXR without infiltrate or consolidation Radiology Impression Discussion of test interpretation with radiology: I have reviewed the radiologist's reading. Radiologist Impression: EXAMINATION: XR CHEST CLINICAL INFORMATION: weakness COMPARISON: 10/30/2024. 06/19/2024. TECHNIQUE: Frontal view of the chest was obtained. FINDINGS: Low lung volumes. Mild bronchovascular crowding. Lungs otherwise clear. No effusions or pneumothorax. Prominent pulmonary arteries again noted in the hilar regions. Heart size is normal. There is no soft tissue or bone abnormality. XR/XR chest 1V IMPRESSION: 1. Low lung volumes with bronchovascular crowding. Prominent pulmonary arteries. No active pulmonary disease. Electronically signed by: Kiran Prescott MD 11/02/2024 11:46 AM [facility] External Record Review External record reviewed: Inpatient record, Office record, Outpatient record, Prior outpatient labs, Prior outpatient radiology, Primary care record and Outside ED record Prescription Management I considered prescription management with: Other (zofran) Chronic Conditions Patient?s care impacted by: Other (ESRD, CHF) Social Determinants Patient?s care significantly limited by Social Determinants of Health including: Other Social Determinant of Health Critical Care Time Critical Care Time Critical Care Time: Yes Total Critical Care Time: 35 Attestation: Critical care time in the amount of 35minutes has been provided to the patient in terms of direct patient care, frequent reevaluation, consultation with nephrology and hospitalist, review and interpretation of medical data and results, and management of potentially life-threatening conditions. This is all outside of any medical procedures. Discharge Plan Discharge Clinical Impression: Acute kidney injury superimposed on chronic kidney disease, Acute hyperkalemia, Nausea, vomiting and diarrhea Patient Disposition: Admitted As Inpatient Print Language: Greek
--- NOTE | 2024-11-02 11:06 | ECG_ITS ---
Test Reason : weakness Blood Pressure : */* mmHG Vent. Rate : 71 BPM Atrial Rate : 71 BPM P-R Int : 168 ms QRS Dur : 88 ms QT Int : 432 ms P-R-T Axes : 47 -23 42 degrees QTcB Int : 469 ms Normal sinus rhythm Normal ECG When compared with ECG of 30-Oct-2024 10:37, No significant change was found Referred By: Alejandro Shearer Electronically Signed By: Satinder Lyn
[2024-11-02 13:04] LABS: Influenza A PCR NEGATIVE (Negative); Influenza B PCR NEGATIVE (Negative); Resp Syncy Virus RNA Qual PCR NEGATIVE (Negative); SARS COV2 PCR INHOUSE NEGATIVE (Negative)
[2024-11-02 13:13] LABS: MANUAL DIFF FLAG NO
[2024-11-02 13:25] LABS: Basophils Percent Auto 0.4 % (0-2); Eosinophils Absolute Auto 0.2 X10*3/uL (0.0-0.4); Eosinophils Percent Auto 1.7 % (0-4); Hematocrit 29.5 % (42.0-52.0); Hemoglobin 10.5 g/dl (14.0-18.0); Imm Gran Abs Auto 0.03 X10*3/uL (0.00-0.03); Imm Gran Pct Auto 0.3 % (0.0-0.4); Lymphocytes Absolute Auto 0.5 X10*3/uL (1.2-4.9); Lymphocytes Percent Auto 3.9 % (20-40); Mean Corpuscular HGB Conc 35.6 g/dl (31.0-36.0); Mean Corpuscular Hemoglobin 32.9 pg (27.0-33.0); Mean Corpuscular Volume 92.5 fL (80.0-98.0); Mean Platelet Volume 9.5 fL (9.4-12.4); Monocytes Absolute Auto 0.6 X10*3/uL (0.1-1.2); Monocytes Percent Auto 4.8 % (2-11); Neutrophils Absolute Auto 10.1 x10*3/uL (2.0-8.3); Neutrophils Percent Auto 88.9 % (45-73); Platelet Count 223 X10*3/uL (160-400); Red Blood Count 3.19 X10*6/uL (4.60-5.80); Red Cell Distribution Width 15.6 % (11.0-16.0); White Blood Count 11.4 X10*3/uL (4.8-10.8)
[2024-11-02] MEDS: ondansetron HCL 4 MG/2 ML VIAL IVPUSH (13:36)
[2024-11-02 13:44] LABS: Alanine Aminotransferase 10 U/L (0-40); Alkaline Phosphatase 70 U/L (39-117); Aspartate Amino Transferase 21 U/L (5-37); Bilirubin Total 0.8 mg/dL (0.0-1.0); Calcium 7.9 mg/dL (8.4-10.2); Glucose Random 130 mg/dL (60-115); Lipase 265 U/L (8-78); Total Protein 6.9 g/dL (6.5-8.0)
[2024-11-02 14:17] LABS: Anion Gap 27 (12-20); Blood Urea Nitrogen 97 mg/dL (9-16); Carbon Dioxide 20 mmol/L (22-29); Chloride 93 mmol/L (96-108); Creatinine Clr Calc Pharmacy 4.5; Estimated Glomerular Filt Rate 4; Potassium 6.9 mmol/L (3.3-5.1); Sodium 133 mmol/L (135-145)
[2024-11-02] MEDS: Insulin Regular, Human 100 UNIT/ML 10 ML VIAL 10 UNIT IVPUSH (14:51)
[2024-11-02] MEDS: Calcium Gluconate/NaCl,Iso-Osm 1 GM/50 ML PLAST..BAG IV (14:52)
[2024-11-02] MEDS: Sodium Bicarbonate 8.4% 50 MEQ/50 ML SYRINGE IVPUSH (14:53)
[2024-11-02] MEDS: Dextrose 10 % 1,000 ML 250 ML IVCONT (15:03)
--- NOTE | 2024-11-02 15:19 | PM.IMHP ---
History of Present Illness Date of Service: 11/02/24 Chief Complaint: diarrhea and vomiting 69 year old male with pmhx significant for ESRD on HD, HTN, DM, hypothyroid, mood disorder, BPH, chronic diastolic HF here with his for evaluation of acute vomiting and diarrhea which began at 0300 this morning. Patient's reported that it was not on stopped and patient even had incontinence. Patient was discharged from [facility] on 11/01/2024 and felt good, plan was for him to follow up with dialysis but unfortunately because of his illness he was unable to go to dialysis today. He denied abdominal pain, chest pain, shortness of breath, recent illness, sick contacts although he was recently hospitalized. Patient received a L of IV fluid treatment for hyperkalemia including insulin and calcium gluconate and antiemetics. Plan will be to admit patient for further management and treatment of vomiting and diarrhea, hyperkalemia and end-stage renal disease requiring dialysis. Review of Systems Review of Systems: Denies any recent fever chills or decrease in appetite respiratory denies any shortness of breath or cough cardiovascular denied chest pain gastrointestinal See HPI genitourinary denies any dysuria frequency or hematuria musculoskeletal denies any joint pain or swelling neuropsych denies any weakness or seizures all other systems reviewed are negative [facility] Medical History End stage kidney disease ESRD needing dialysis Secondary hyperparathyroidism (of renal origin) Anemia in chronic kidney disease DONIS (acute kidney injury) End stage renal disease on dialysis Diabetes Kidney failure HTN (hypertension) Social History Household Members: Spouse Housing: House Are you a primary home care giver to a significant other at home: No Do you presently have visiting nurse or other home services: No Alcohol intake: never Comment: [place] RISK IN PLACE FOR O2 AND WEAKNESS REPORTED S/P HD TODAY Patient Tobacco Use Status: Never used Tobacco Cigarette Packs Per Day: 0 Cigarettes Per Day: 0.0 Years Smoked: NA Smoked in Last 30 Days: No e-Cigarette/Vaping Use: Never Used Second Hand Smoke Exposure: No Use of substances other than those prescribed or required for medical reasons: No Advance Directives: Yes Advance Directives on File: Yes Advance Directives Date on File: 09/07/23 Do you have a plan to hurt others: No Plan service: No Meds Allergies Allergy/AdvReac Type Severity Reaction Status Date / Time Penicillins [PENICILLINS] Allergy Unknown RASH Verified 11/02/24 11:04 tramadol [From ULTRAM] Allergy Unknown RASH Verified 11/02/24 11:04 trazodone [TRAZODONE] Allergy Unknown PRIAPISM Verified 11/02/24 11:04 risperidone [RISPERIDONE] AdvReac Severe dizzy, EPS Verified 11/02/24 11:04 Active Medications: Current Medications Calcium Gluconate (Calcium Gluconate) 1 gm in 50 mls @ 50 mls/hr IV ONCE ONE Stop: 11/02/24 15:28 Last Admin: 11/02/24 14:52 Dose: 50 mls/hr Dextrose (D10) 1,000 mls @ 250 mls/hr IVCONT .Q4H FRANCINE Last Admin: 11/02/24 15:03 Dose: 250 mls/hr Home Medications ?Medication ?Instructions ?Recorded ?Confirmed ?Last Taken ?Type atenolol 100 mg tablet 1 tab PO DAILY 07/11/21 11/02/24 10/30/24 09:00 History blood sugar diagnostic (FreeStyle 07/11/21 10/30/24 10/30/24 09:00 History Lite Strips) dextroamphetamine-amphetamine 20 1 tab PO TID@0800,1400,1800 07/11/21 11/02/24 10/30/24 09:00 History mg tablet levothyroxine 137 mcg tablet 1 tab PO DAILY@0600 07/11/21 11/02/24 10/30/24 09:00 History pen needle, diabetic 31 gauge x 07/11/21 10/30/24 10/30/24 09:00 History 5/16 (BD Ultra-Fine Short Pen Needle) amlodipine 5 mg tablet 5 mg PO BID 09/03/23 11/02/24 10/30/24 09:00 History albuterol sulfate 90 mcg/actuation 2 puff inhalation Q6H PRN 10/29/23 11/02/24 4 Days Ago History aerosol inhaler (Ventolin HFA) Shortness Of Breath ~10/29/24 atorvastatin 40 mg tablet 40 mg PO DAILY 02/22/24 11/02/24 10/30/24 09:00 History hydromorphone 4 mg tablet 4 mg PO Q3H PRN Severe Pain (Scale 06/19/24 11/02/24 4 Days Ago History Score 7-10) ~10/29/24 sodium zirconium cyclosilicate 10 10 g PO SUTUTHSA@0900 06/19/24 11/02/24 10/30/24 09:00 History gram oral powder packet (Lokelma) alprazolam 0.5 mg tablet 0.5 mg PO DAILY PRN anxiety attack 10/30/24 11/02/24 10/30/24 09:00 History alprazolam 2 mg tablet 2 mg PO BID 10/30/24 11/02/24 10/30/24 09:00 History insulin lispro 100 unit/mL 1 sliding scale dose subcut TIDAC 10/30/24 11/02/24 10/30/24 09:00 History subcutaneous pen (Humalog KwikPen (U-100) Insulin) losartan 100 mg tablet 100 mg PO DAILY 10/30/24 11/02/24 10/30/24 09:00 History sevelamer carbonate 800 mg tablet 800 mg PO DAILY PRN snack 10/30/24 11/02/24 4 Days Ago History ~10/29/24 sevelamer carbonate 800 mg tablet 800 mg PO TIDWM 10/30/24 11/02/24 10/30/24 09:00 History vitamin D3 25 mcg (1,000 unit)-vit 1 tab PO SUTUTHSA@0900 11/02/24 11/02/24 4 Days Ago History K2 90 mcg disintegrating tablet ~10/29/24 Physical Exam Vital Signs and Narrative: Vital Signs: Last Vital Signs Temp 98.1 F 11/02/24 11:03 Pulse 71 11/02/24 11:03 Resp 18 11/02/24 11:03 BP 144/58 H 11/02/24 11:03 Pulse Ox 99 11/02/24 11:03 O2 Del Method Room Air 11/02/24 11:03 BMI result Body Mass Index 23.4 Appearing in no acute distress head is normocephalic atraumatic eyes pupils are PERRLA sclera is anicteric mouth throat mucous membranes are intact and moist neck is supple no lymphadenopathy, no JVD noted lung sounds are clear to auscultation heart regular rate rhythm, clear S1, S2 positive bowel sounds, abdomen is soft, nontender neuro patient is alert x3, no focal deficits Results Labs 11/02/24 13:09 11/02/24 13:09 Labs: Laboratory Results - last 24 hr 11/02/24 11/02/24 11:37 13:09 MCV 92.5 MCH 32.9 MCHC 35.6 RDW 15.6 Plt Count 223 MPV 9.5 Immature Gran % (Auto) 0.3 Neut % (Auto) 88.9 H Lymph % (Auto) 3.9 L [place] % (Auto) 4.8 Eos % (Auto) 1.7 Baso % (Auto) 0.4 Lymph # (Auto) 0.5 L [place] # (Auto) 0.6 Eos # (Auto) 0.2 Baso # (Auto) 0.0 Abs Immat Gran (auto) 0.03 Absolute Neuts (auto) 10.1 H Absolute Nucleated RBC 0.000 Nucleated RBC % (auto) 0.0 Anion Gap 27 H Estim Creat Clear Calc 4.5 Estimated GFR 4 Random Glucose 130 H Calcium 7.9 L D Total Bilirubin 0.8 AST 21 ALT 10 Alkaline Phosphatase 70 Total Protein 6.9 Albumin 4.0 Lipase 265 H Influenza Type A (PCR) NEGATIVE Influenza Type B (PCR) NEGATIVE RSV RNA Qual (PCR) NEGATIVE SARS-CoV-2 RNA (RT-PCR) NEGATIVE Imaging Radiologist's Impressions: Impressions Chest X-Ray 11/02/24 11:05 IMPRESSION: 1. Low lung volumes with bronchovascular crowding. Prominent pulmonary arteries. No active pulmonary disease. Electronically signed by: Kiran Prescott MD 11/02/2024 11:46 AM [facility] Assessment and Plan (1) Nausea, vomiting and diarrhea: Status: Acute (2) Fluid overload: Status: Acute Plan 69M PMH ESRD, htn, dm, hypothyroid, mood disorder, BPH, chronic diastolic CHF, presented with N<V<D Vomiting and diarrhea check stool studies and cdiff supportive care monitor lytes Acute hyperkalemia due to missed dialysis should improve with HD continue baseline lokelma hold losartan for now low k diet ESRD on HD MWF schedule, missed dialysis today phosphate binders Hypertension Continue atenolol, amlodipine hold losartan for now due to hyperkalemia Hypothyroid Continue levothyroxine Diabetes mellitus 2 diet controlled Continue insulin sliding scale Mood disorder Continue lorazepam Chronic pain continue baseline hydromorphone DVT prophylaxis with heparin subQ Full code Quality Stroke Does the patient have a stroke diagnosis?: No VTE Prior VTE?: No VTE Risk Level:: Medical - moderate - high VTE Device Contraindication: N/A - Device Ordered VTE Drug Contraindication: Treatment Not Indicated
--- NOTE | 2024-11-02 15:32 | PC.NURSE ---
This RN received call from dialysis. Plan for pt to go to dialysis when pt admitted.
--- NOTE | 2024-11-02 15:33 | PHA.MEDREC ---
Addendum entered by Rogelio Barrera, [facility] 11/02/24 16:20: Med rec reviewed Original Note: Pharmacy Consult ? Medication Reconciliation Pharmacy has completed the medication reconciliation. Went to speak with patient and he was asleep. I spoke with patients over the phone and she was able to confirm her husbands medications, she confirmed he was just here from Thursday till yesterday (Wednesday 11/01) and his medications from that were still up to date. I asked about the Humalog since there is no claims for that and she confirmed he is taking it three times a day before meals and states its being filled at [facility] on [address], I called [facility] to inquire on the Humalog and they state they have no claims on Humalog being filled for the last 2 years at least. She confirmed her is taking 2 medications on his non dialysis days and confirmed he is taking a Vitamin K2 90mcg-Vitamin D3 25mcg tab and a Lokelma 10g packet on Sundays, Tuesdays, and Saturdays @0900 and states he either gets those from the dialysis center or they will mail them to the patients home. She confirmed he is not taking the Pantoprazole tablet anymore for heartburn and states hes been mixing baking soda since nothing has really been helping and she states he hasn't been complaining much since staring that. She is not sure if her took any medications since coming home yesterday 11/01 and if not he has not taken any medications since the Thursday before he came in 10/29.
--- NOTE | 2024-11-02 15:45 | PC.NURSE ---
Pt off unit to dialysis
[2024-11-02 20:00] VITALS: BP 149/71; PULSE 83; RESP 18; TEMP 36.5; O2SAT 97
[2024-11-02] MEDS: 0.9 % Sodium Chloride Flush 3 ML SYRINGE IVFLUSH ×2 (20:06→23:52)
[2024-11-02] MEDS: ALPRAZolam 0.5 MG TABLET 2 MG PO (20:38)
[2024-11-02] MEDS: amLODIPine Besylate 5 MG TABLET PO (20:38)
[2024-11-02 22:00] VITALS: BP 134/65; PULSE 78; RESP 20; TEMP 37.1; O2SAT 95
[2024-11-02 23:31] VITALS: BP 129/60; PULSE 70; RESP 19; TEMP 36.8; O2SAT 96
[2024-11-02 23:57] VITALS: BMI 25.0
[2024-11-03 04:00] VITALS: BP 117/57; PULSE 66; RESP 16; TEMP 37.1; O2SAT 96
[2024-11-03] MEDS: Levothyroxine Sodium 112 MCG, Levothyroxine Sodium 25 MCG 137 MCG PO (06:12)
[2024-11-03 07:03] VITALS: BP 136/65; PULSE 69; RESP 19; TEMP 36.3; O2SAT 98
[2024-11-03 07:16] LABS: Hematocrit 32.2 % (42.0-52.0); Mean Corpuscular HGB Conc 34.2 g/dl (31.0-36.0); Mean Corpuscular Hemoglobin 32.3 pg (27.0-33.0); Mean Corpuscular Volume 94.4 fL (80.0-98.0); Mean Platelet Volume 9.7 fL (9.4-12.4); Platelet Count 212 X10*3/uL (160-400); Red Blood Count 3.41 X10*6/uL (4.60-5.80); Red Cell Distribution Width 15.9 % (11.0-16.0); White Blood Count 6.6 X10*3/uL (4.8-10.8)
[2024-11-03 07:34] LABS: Alanine Aminotransferase 10 U/L (0-40); Albumin Level 3.9 g/dL (3.5-5.0); Alkaline Phosphatase 68 U/L (39-117); Anion Gap 23 (12-20); Aspartate Amino Transferase 25 U/L (5-37); Bilirubin Total 0.8 mg/dL (0.0-1.0); Blood Urea Nitrogen 63 mg/dL (9-16); Calcium 8.4 mg/dL (8.4-10.2); Carbon Dioxide 20 mmol/L (22-29); Chloride 98 mmol/L (96-108); Estimated Glomerular Filt Rate 5; Glucose Random 91 mg/dL (60-115); Potassium 5.6 mmol/L (3.3-5.1); Sodium 135 mmol/L (135-145); Total Protein 6.9 g/dL (6.5-8.0)
[2024-11-03 08:38] LABS: Lipase 32 U/L (8-78)
[2024-11-03] MEDS: atenoloL 100 MG TABLET PO (10:07)
[2024-11-03] MEDS: Atorvastatin Calcium 40 MG TABLET PO (10:07)
[2024-11-03] MEDS: Sevelamer Carbonate Tablet 800 MG TABLET PO ×3 (10:07→16:59)
[2024-11-03] MEDS: amLODIPine Besylate 5 MG TABLET PO ×2 (10:07→20:02)
[2024-11-03] MEDS: Amphetamine Mixed Salts 20 MG TABLET PO ×3 (10:07→17:00)
[2024-11-03] MEDS: Sodium Zirconium Cyclosilicate 10 GM POWD.PACK PO (10:08)
[2024-11-03] MEDS: ALPRAZolam 0.5 MG TABLET 2 MG PO ×2 (10:08→20:03)
[2024-11-03] MEDS: 0.9 % Sodium Chloride Flush 3 ML SYRINGE IVFLUSH ×3 (10:08→20:03)
[2024-11-03] MEDS: HYDROmorphone HCl 2 MG TABLET 4 MG PO ×3 (10:17→20:02)
[2024-11-03 11:00] VITALS: BP 139/65; PULSE 74; RESP 15; TEMP 37; O2SAT 98
--- NOTE | 2024-11-03 12:52 | P.CONNP_ITS ---
History of Present Illness Reason for Consult Consult date: 11/03/24 Reason for consult: End stage renal disease Chief Complaint Chief complaint: Hyperkalemia History of Present Illness Narrative: 69 year old male with pmhx significant for ESRD on HD, HTN, DM, hypothyroid, mood disorder, BPH, chronic diastolic HF here with his for evaluation of acute vomiting and diarrhea which began at 0300 this morning. Patient's reported that it was not on stopped and patient even had incontinence. Patient was discharged from [facility] on 11/01/2024 and felt good, plan was for him to follow up with dialysis but unfortunately because of his illness he was unable to go to dialysis today. He denied abdominal pain, chest pain, shortness of breath, recent illness, sick contacts although he was recently hospitalized. Patient received a L of IV fluid treatment for hyperkalemia including insulin and calcium gluconate and antiemetics. Plan will be to admit patient for further management and treatment of vomiting and diarrhea, hyperkalemia and end-stage renal disease requiring dialysis. Underwent dialysis yesterday. Potassium still remains elevated today [facility] Past Medical History Medical History End stage kidney disease ESRD needing dialysis Secondary hyperparathyroidism (of renal origin) Anemia in chronic kidney disease DONIS (acute kidney injury) End stage renal disease on dialysis Diabetes Kidney failure HTN (hypertension) Social History Social History Household Members: Unknown / Unable to assess Housing: Unknown / Unable to assess Are you a primary career based intervention coordinator to a significant other at home: No Do you presently have visiting nurse or other home services: No Alcohol intake: never Comment: [place] RISK IN PLACE FOR O2 AND WEAKNESS REPORTED S/P HD TODAY Patient Tobacco Use Status: Never used Tobacco Cigarette Packs Per Day: 0 Cigarettes Per Day: 0.0 Years Smoked: NA e-Cigarette/Vaping Use: Never Used Second Hand Smoke Exposure: No Advance Directives Date on File: 09/07/23 service: No Meds Allergies Allergy/AdvReac Type Severity Reaction Status Date / Time Penicillins [PENICILLINS] Allergy Unknown RASH Verified 11/02/24 11:04 tramadol [From ULTRAM] Allergy Unknown RASH Verified 11/02/24 11:04 trazodone [TRAZODONE] Allergy Unknown PRIAPISM Verified 11/02/24 11:04 risperidone [RISPERIDONE] AdvReac Severe dizzy, EPS Verified 11/02/24 11:04 Active Medications: Current Medications Acetaminophen (Acetaminophen 325 Mg Tablet) 650 mg PO Q6H PRN PRN Reason: Pain, Mild 1-3,fever,headache Albuterol Sulfate (Albuterol Sulfate 90 Mcg 8 Gm Inhaler) 2 puff INHALE Q6H PRN PRN Reason: Shortness Of Breath Alprazolam (Alprazolam 0.5 Mg Tablet) 0.5 mg PO DAILY PRN PRN Reason: anxiety attack Alprazolam (Alprazolam 0.5 Mg Tablet) 2 mg PO BID [facility] Last Admin: 11/03/24 10:08 Dose: 2 mg Amlodipine Besylate (Amlodipine Besylate 5 Mg Tablet) 5 mg PO BID [facility]; Protocol Last Admin: 11/03/24 10:07 Dose: 5 mg Amphetamine/Dextroamphetamine (Amphetamine Mixed Salts 20 Mg Tablet) 20 mg PO TID@0800,1400,1800 [facility] Last Admin: 11/03/24 10:07 Dose: 20 mg Atenolol (Atenolol 100 Mg Tablet) 100 mg PO DAILY [facility]; Protocol Last Admin: 11/03/24 10:07 Dose: 100 mg Atorvastatin Calcium (Atorvastatin Calcium 40 Mg Tablet) 40 mg PO DAILY [facility] Last Admin: 11/03/24 10:07 Dose: 40 mg Calcium Carbonate (Calcium Carbonate 750 Mg Tab.Chew) 750 mg PO Q4H PRN PRN Reason: Heartburn Hydromorphone HCl (Hydromorphone Hcl 2 Mg Tablet) 4 mg PO Q3H PRN PRN Reason: Severe Pain (Scale Score 7-10) Last Admin: 11/03/24 10:17 Dose: 4 mg Dextrose (D10) 1,000 mls @ 250 mls/hr IVCONT .Q4H [facility] Last Admin: 11/03/24 12:36 Dose: Not Given Levothyroxine Sodium 112 mcg/ (Levothyroxine Sodium 25 mcg) 137 mcg PO DAILY@0600 [facility] Last Admin: 11/03/24 06:12 Dose: 137 mcg Magnesium Hydroxide (Milk Of Magnesia 30 Ml Oral.Susp) 30 ml PO DAILY PRN PRN Reason: Constipation Melatonin (Melatonin 3 Mg Tablet) 6 mg PO BEDTIME PRN PRN Reason: Insomnia Ondansetron HCl (Ondansetron Hcl 4 Mg/2 Ml Vial) 4 mg IVPUSH Q8H PRN PRN Reason: Nausea and Vomiting Sevelamer Carbonate (Sevelamer Carbonate Tablet 800 Mg Tablet) 800 mg PO DAILY PRN PRN Reason: snack Sevelamer Carbonate (Sevelamer Carbonate Tablet 800 Mg Tablet) 800 mg PO TIDWM [facility] Last Admin: 11/03/24 12:39 Dose: 800 mg Sodium Chloride (0.9 % Sodium Chloride Flush 3 Ml Syringe) 3 ml IVFLUSH QSHIFT [facility] Last Admin: 11/03/24 10:08 Dose: 3 ml Sodium Zirconium Cyclosilicate (Sodium Zirconium Cyclosilicate 10 Gm Powd.Pack) 10 gm PO SUTUTHSA@0900 [facility] Last Admin: 11/03/24 10:08 Dose: 10 gm Home Medications ?Medication ?Instructions ?Recorded ?Confirmed ?Last Taken ?Type atenolol 100 mg tablet 1 tab PO DAILY 07/11/21 11/02/24 10/30/24 09:00 History blood sugar diagnostic (FreeStyle 07/11/21 10/30/24 10/30/24 09:00 History Lite Strips) dextroamphetamine-amphetamine 20 1 tab PO TID@0800,1400,1800 07/11/21 11/02/24 10/30/24 09:00 History mg tablet levothyroxine 137 mcg tablet 1 tab PO DAILY@0600 07/11/21 11/02/24 10/30/24 09:00 History pen needle, diabetic 31 gauge x 07/11/21 10/30/24 10/30/24 09:00 History 5/16 (BD Ultra-Fine Short Pen Needle) amlodipine 5 mg tablet 5 mg PO BID 09/03/23 11/02/24 10/30/24 09:00 History albuterol sulfate 90 mcg/actuation 2 puff inhalation Q6H PRN 10/29/23 11/02/24 4 Days Ago History aerosol inhaler (Ventolin HFA) Shortness Of Breath ~10/29/24 atorvastatin 40 mg tablet 40 mg PO DAILY 02/22/24 11/02/24 10/30/24 09:00 History hydromorphone 4 mg tablet 4 mg PO Q3H PRN Severe Pain (Scale 06/19/24 11/02/24 4 Days Ago History Score 7-10) ~10/29/24 sodium zirconium cyclosilicate 10 10 g PO SUTUTHSA@0900 06/19/24 11/02/24 10/30/24 09:00 History gram oral powder packet (Lokelma) alprazolam 0.5 mg tablet 0.5 mg PO DAILY PRN anxiety attack 10/30/24 11/02/24 10/30/24 09:00 History alprazolam 2 mg tablet 2 mg PO BID 10/30/24 11/02/24 10/30/24 09:00 History insulin lispro 100 unit/mL 1 sliding scale dose subcut TIDAC 10/30/24 11/02/24 10/30/24 09:00 History subcutaneous pen (Humalog KwikPen (U-100) Insulin) losartan 100 mg tablet 100 mg PO DAILY 10/30/24 11/02/24 10/30/24 09:00 History sevelamer carbonate 800 mg tablet 800 mg PO DAILY PRN snack 10/30/24 11/02/24 4 Days Ago History ~10/29/24 sevelamer carbonate 800 mg tablet 800 mg PO TIDWM 10/30/24 11/02/24 10/30/24 09:00 History vitamin D3 25 mcg (1,000 unit)-vit 1 tab PO SUTUTHSA@0900 11/02/24 11/02/24 4 Days Ago History K2 90 mcg disintegrating tablet ~10/29/24 Physical Exam Vital Signs: Last Vital Signs Temp 98.6 F 11/03/24 11:00 Pulse 74 11/03/24 11:00 Resp 15 11/03/24 11:00 BP 139/65 11/03/24 11:00 Pulse Ox 98 11/03/24 11:00 O2 Del Method Room Air 11/03/24 11:00 BMI result Body Mass Index 25.0 Const General: ill appearing Neck Neck: Yes supple Resp Auscultation: clear to auscultation bilaterally Cardio Palpation: no palpable S3 Heart sounds: no rubs GI Palpation (GI): Soft to palpation Auscultation: normal bowel sounds Neuro Motor exam (neuro): no asterixis Results Lab Results 11/03/24 06:11 11/03/24 06:11 Lab results: Chemistry 11/02/24 11/03/24 13:09 06:11 Sodium 133 L 135 Potassium 6.9 H* D 5.6 H Carbon Dioxide 20 L 20 L BUN 97 H 63 H Creatinine 13.57 H* 10.27 H* Calcium 7.9 L D 8.4 D Hematology 11/02/24 11/03/24 13:09 06:11 WBC 11.4 H 6.6 Hgb 10.5 L 11.0 L Plt Count 223 212 Assessment and Plan (1) Acute hyperkalemia: Status: Acute (2) End stage kidney disease: Status: Acute Plan End stage renal disease. No signs or symptoms of uremia. Fluid status acceptable. Persistent hyperkalemia. We will proceed with dialysis again today to correct hyperkalemia Procedures Date of Service Date of Service: 11/03/24
--- NOTE | 2024-11-03 13:00 | MHC.CM.PN ---
IMM 11/03/24, Pt lives with his , Kyara, and confirmed that she is HCP. He does not have any home care services, has tried to have them and the scheduling did not work out. PCP confirmed: Matias Tan. He goes to HD MWF at [facility] in [place]. For DME, he has a walker and w/c. His will transport home at DC. DCP: home, self care. CM to follow for DC needs.
[2024-11-03] MEDS: ALPRAZolam 0.5 MG TABLET PO (15:21)
--- NOTE | 2024-11-03 15:55 | HO.PM.IMPN ---
Subjective Subjective Date of Service: 11/03/24 Interval History: seen and examined this morning follow up for N/V/D - no further diarrhea since admission not feeling well, but no specific complaints Review of Systems Review of Systems: Yes all other systems are reviewed and are negative Constitutional Constitutional: Denies chills and Denies fever(s) Cardiovascular Cardiovascular: Denies chest pain and Denies dyspnea Respiratory Respiratory: Denies dyspnea Gastrointestinal Gastrointestinal: Denies abdominal pain, Denies nausea and Denies vomiting Physical Exam Vital Signs: Vital Signs: Last Vital Signs Temp 98.6 F 11/03/24 11:00 Pulse 74 11/03/24 11:00 Resp 15 11/03/24 11:00 BP 139/65 11/03/24 11:00 Pulse Ox 98 11/03/24 11:00 O2 Del Method Room Air 11/03/24 11:00 BMI result Body Mass Index 25.0 Const: General: no acute distress, alert and Physically active Nutritional Appearance: average body habitus Orientation/consciousness: patient oriented x3 Resp: Effort & Inspection: normal respiratory effort, able to speak in complete sentences, no respiratory distress and no use of accessory muscles Cardio: Rate: regular rate GI: Inspection: No distended Palpation (GI): Soft to palpation Neuro: General: patient oriented x3, moves all extremities and CN's II-XI intact bilaterally Objective Data Active Medications Acetaminophen (Acetaminophen 325 Mg Tablet) 650 mg PO Q6H PRN PRN Reason: Pain, Mild 1-3,fever,headache Albuterol Sulfate (Albuterol Sulfate 90 Mcg 8 Gm Inhaler) 2 puff INHALE Q6H PRN PRN Reason: Shortness Of Breath Alprazolam (Alprazolam 0.5 Mg Tablet) 0.5 mg PO DAILY PRN PRN Reason: anxiety attack Last Admin: 11/03/24 15:21 Dose: 0.5 mg Documented By: SOBIA Alprazolam (Alprazolam 0.5 Mg Tablet) 2 mg PO BID [facility] Last Admin: 11/03/24 10:08 Dose: 2 mg Documented By: SOBIA Amlodipine Besylate (Amlodipine Besylate 5 Mg Tablet) 5 mg PO BID [facility]; Protocol Last Admin: 11/03/24 10:07 Dose: 5 mg Documented By: SOBIA Amphetamine/Dextroamphetamine (Amphetamine Mixed Salts 20 Mg Tablet) 20 mg PO TID@0800,1400,1800 [facility] Last Admin: 11/03/24 15:21 Dose: 20 mg Documented By: SOBIA Atenolol (Atenolol 100 Mg Tablet) 100 mg PO DAILY [facility]; Protocol Last Admin: 11/03/24 10:07 Dose: 100 mg Documented By: SOBIA Atorvastatin Calcium (Atorvastatin Calcium 40 Mg Tablet) 40 mg PO DAILY [facility] Last Admin: 11/03/24 10:07 Dose: 40 mg Documented By: SOBIA Calcium Carbonate (Calcium Carbonate 750 Mg Tab.Chew) 750 mg PO Q4H PRN PRN Reason: Heartburn Hydromorphone HCl (Hydromorphone Hcl 2 Mg Tablet) 4 mg PO Q3H PRN PRN Reason: Severe Pain (Scale Score 7-10) Last Admin: 11/03/24 15:20 Dose: 4 mg Documented By: SOBIA Dextrose (D10) 1,000 mls @ 250 mls/hr IVCONT .Q4H [facility] Last Admin: 11/03/24 15:20 Dose: Not Given Documented By: SOBIA Non-Admin Reason: Physician Held Med Levothyroxine Sodium 112 mcg/ (Levothyroxine Sodium 25 mcg) 137 mcg PO DAILY@0600 [facility] Last Admin: 11/03/24 06:12 Dose: 137 mcg Documented By: BELKIS Magnesium Hydroxide (Milk Of Magnesia 30 Ml Oral.Susp) 30 ml PO DAILY PRN PRN Reason: Constipation Melatonin (Melatonin 3 Mg Tablet) 6 mg PO BEDTIME PRN PRN Reason: Insomnia Ondansetron HCl (Ondansetron Hcl 4 Mg/2 Ml Vial) 4 mg IVPUSH Q8H PRN PRN Reason: Nausea and Vomiting Sevelamer Carbonate (Sevelamer Carbonate Tablet 800 Mg Tablet) 800 mg PO DAILY PRN PRN Reason: snack Sevelamer Carbonate (Sevelamer Carbonate Tablet 800 Mg Tablet) 800 mg PO TIDWM [facility] Last Admin: 11/03/24 12:39 Dose: 800 mg Documented By: SOBIA Sodium Chloride (0.9 % Sodium Chloride Flush 3 Ml Syringe) 3 ml IVFLUSH QSHIFT [facility] Last Admin: 11/03/24 10:08 Dose: 3 ml Documented By: SOBIA Sodium Zirconium Cyclosilicate (Sodium Zirconium Cyclosilicate 10 Gm Powd.Pack) 10 gm PO RIKY@0900 [facility] Last Admin: 11/03/24 10:08 Dose: 10 gm Documented By: SOBIA Labs 11/03/24 06:11 11/03/24 06:11 Labs: Laboratory Results - last 24 hr 11/03/24 06:11 MCV 94.4 MCH 32.3 MCHC 34.2 RDW 15.9 Plt Count 212 MPV 9.7 Absolute Nucleated RBC 0.000 Nucleated RBC % (auto) 0.0 Anion Gap 23 H Estim Creat Clear Calc 6.0 Estimated GFR 5 Random Glucose 91 Calcium 8.4 D Total Bilirubin 0.8 AST 25 ALT 10 Alkaline Phosphatase 68 Total Protein 6.9 Albumin 3.9 Lipase 32 Assessment and Plan (1) Acute hyperkalemia: Status: Acute Plan This is a 69M PMH ESRD, htn, dm, hypothyroid, mood disorder, BPH, chronic diastolic CHF, presented with N<V<D N/V/D resolved no further diarrhea since admission supportive care Acute hyperkalemia due to missed dialysis improved with HD 11/02, but still elevated; plan for further HD today 11/03 continue baseline up health system ESRD on HD MWF schedule, extra session planned today phosphate binders Hypertension Continue atenolol, amlodipine hold losartan for now due to hyperkalemia Hypothyroid Continue levothyroxine Diabetes mellitus 2 diet controlled Continue insulin sliding scale Mood disorder Continue lorazepam Chronic pain continue baseline hydromorphone DVT prophylaxis with mechanical devices Full code Quality Stroke Does the patient have a stroke diagnosis?: No VTE Prior VTE?: No VTE Risk Level:: Medical - moderate - high VTE Device Contraindication: N/A - Device Ordered VTE Drug Contraindication: Treatment Not Indicated
[2024-11-03 16:00] VITALS: BP 116/59; PULSE 75; RESP 22; TEMP 36.4; O2SAT 99
[2024-11-03 16:43] LABS: Glucose, Whole Blood 127 mg/dL (60-115)
[2024-11-03 19:15] VITALS: BP 103/56; PULSE 70; RESP 22; TEMP 36.7; O2SAT 98
[2024-11-03 20:01] LABS: Glucose, Whole Blood 157 mg/dL (60-115)
[2024-11-03] MEDS: Insulin Lispro 100 UNIT/ML 3 ML VIAL SUBCUT (20:02)
[2024-11-04] VITALS (7 sets, daily range): BP systolic 109–128; BP diastolic 54–67; PULSE 58–69; RESP 18–20; TEMP 36.1–36.8; O2SAT 95–100
[2024-11-04] MEDS: HYDROmorphone HCl 2 MG TABLET 4 MG PO ×6 (00:29→23:37)
[2024-11-04] MEDS: Levothyroxine Sodium 112 MCG, Levothyroxine Sodium 25 MCG 137 MCG PO (05:39)
[2024-11-04 07:23] LABS: Glucose, Whole Blood 101 mg/dL (60-115)
[2024-11-04 07:27] LABS: Anion Gap 19 (12-20); Blood Urea Nitrogen 48 mg/dL (9-16); Calcium 8.6 mg/dL (8.4-10.2); Carbon Dioxide 22 mmol/L (22-29); Chloride 97 mmol/L (96-108); Creatinine Clr Calc Pharmacy 7.5; Estimated Glomerular Filt Rate 7; Glucose Random 94 mg/dL (60-115); Potassium 4.7 mmol/L (3.3-5.1); Sodium 133 mmol/L (135-145)
[2024-11-04] MEDS: Atorvastatin Calcium 40 MG TABLET PO (08:18)
[2024-11-04] MEDS: Sevelamer Carbonate Tablet 800 MG TABLET PO ×2 (08:18→13:11)
[2024-11-04] MEDS: ALPRAZolam 0.5 MG TABLET 2 MG PO ×2 (08:18→19:50)
[2024-11-04] MEDS: 0.9 % Sodium Chloride Flush 3 ML SYRINGE IVFLUSH ×2 (08:21→19:55)
[2024-11-04 11:46] LABS: Glucose, Whole Blood 108 mg/dL (60-115)
--- NOTE | 2024-11-04 13:21 | PM.DS ---
DS: Providers Provider Date of Service: 11/04/24 <ABA Toledo - Last Filed: 11/04/24 17:38> 11/06/24 <Sara Pizarro NP - Last Filed: 11/07/24 07:18> Date of admission: 11/02/24 15:30 <ABA Toledo - Last Filed: 11/04/24 17:38> Date of discharge: 11/04/24 <ABA Toledo - Last Filed: 11/04/24 17:38> 11/06/24 <Saar Pizarro NP - Last Filed: 11/07/24 07:18> Primary care physician: Matias Tan MD <ABA Toledo - Last Filed: 11/04/24 17:38> Consults: 11/02/24 16:09 Consult to Nephrology Routine Consulting Provider: [facility] Reason for consultation: ESRD <ABA Toledo - Last Filed: 11/04/24 17:38> Attending physician on discharge: Bello Carpenter <ABA Toledo - Last Filed: 11/04/24 17:38> Discharging clinician: Ginger La <ABA Toledo - Last Filed: 11/04/24 17:38> DS: Diagnosis Discharge Diagnosis (1) Acute hyperkalemia: Status: Acute <ABA Toledo - Last Filed: 11/04/24 17:38> DS: Summary Hospital Course Hospital Course: PATIENT ELOPED AROUND 0530 AM 11/06/24 From H&P on the day of admission 69 year old male with pmhx significant for ESRD on HD, HTN, DM, hypothyroid, mood disorder, BPH, chronic diastolic HF here with his for evaluation of acute vomiting and diarrhea which began at 0300 this morning. Patient's reported that it was not on stopped and patient even had incontinence. Patient was discharged from [facility] on 11/01/2024 and felt good, plan was for him to follow up with dialysis but unfortunately because of his illness he was unable to go to dialysis today. He denied abdominal pain, chest pain, shortness of breath, recent illness, sick contacts although he was recently hospitalized. Patient received a L of IV fluid treatment for hyperkalemia including insulin and calcium gluconate and antiemetics. Plan will be to admit patient for further management and treatment of vomiting and diarrhea, hyperkalemia and end-stage renal disease requiring dialysis. N/V/D resolved no further diarrhea since admission therefore no GI panel or cdif was obtained. Acute hyperkalemia due to missed dialysis improved with HD 11/02, but still elevated; had extra session of HD 11/03 and regularly scheduled dialysis session 11/04 prior to discharge. Losartan will be discontinued, he should continue baseline dose of Lokelma ESRD on HD MWF schedule. Outpatient follow-up with Nephrology Hypertension Continue atenolol, amlodipine. losartan discontinued due to hyperkalemia <ABA Toledo - Last Filed: 11/04/24 17:38> Time Attestation Discharge Coordination Time (in mins): 36 <ABA Toledo - Last Filed: 11/04/24 17:38> Quality: Safe Use of Opioids Does Pt have an Active Cancer Diagnosis on the Problem List?: No <ABA Toledo - Last Filed: 11/04/24 17:38> Quality: Stroke Does the patient have a stroke diagnosis?: No <ABA Toledo - Last Filed: 11/04/24 17:38> Physical Exam Vital Signs: Vital Signs: Last Vital Signs Temp 97.7 F 11/04/24 11:13 Pulse 58 11/04/24 11:13 Resp 18 11/04/24 11:13 BP 120/61 11/04/24 11:13 Pulse Ox 96 11/04/24 11:13 O2 Del Method Room Air 11/04/24 11:13 BMI result Body Mass Index 25.0 <ABA Toledo - Last Filed: 11/04/24 17:38> Const: General: cooperative, comfortable, no acute distress, alert and Physically active <ABA Toledo - Last Filed: 11/04/24 17:38> Nutritional Appearance: average body habitus <ABA Toledo - Last Filed: 11/04/24 17:38> Orientation/consciousness: patient oriented x3 <ABA Toledo - Last Filed: 11/04/24 17:38> Resp: Effort & Inspection: normal respiratory effort, able to speak in complete sentences, no respiratory distress and no use of accessory muscles <ABA Toledo - Last Filed: 11/04/24 17:38> Cardio: Rate: regular rate <ABA Toledo - Last Filed: 11/04/24 17:38> GI: Inspection: No distended <ABA Toledo - Last Filed: 11/04/24 17:38> Palpation (GI): Soft to palpation <ABA Toledo - Last Filed: 11/04/24 17:38> Neuro: General: patient oriented x3, moves all extremities and CN's II-XI intact bilaterally <ABA Toledo Last Filed: 11/04/24 17:38> Extrem: General: Yes no pedal edema <ABA Toledo - Last Filed: 11/04/24 17:38> DS: Data Data Completed and Pending Completed studies during hospitalization [Text1]: Procedures Assistance with Respiratory Ventilation, Less than 24 Consecutive Hours, Continuous Positive Airway Pressure (11/04/23) Performance of Urinary Filtration, Intermittent, Less than 6 Hours Per Day (06/19/24) <ABA Toledo Last Filed: 11/04/24 17:38> Labs on day of discharge: Laboratory Results - last 24 hr 11/03/24 11/03/24 11/04/24 16:38 19:53 06:51 Sodium 133 L Potassium 4.7 Chloride 97 Carbon Dioxide 22 Anion Gap 19 BUN 48 H Creatinine 8.17 H* Estim Creat Clear Calc 7.5 Estimated GFR 7 POC Glucose 127 H 157 H Random Glucose 94 Calcium 8.6 11/04/24 11/04/24 07:20 11:33 Sodium Potassium Chloride Carbon Dioxide Anion Gap BUN Creatinine Estim Creat Clear Calc Estimated GFR POC Glucose 101 108 Random Glucose Calcium <ABA Toledo - Last Filed: 11/04/24 17:38> Discharge Plan Discharge Anticipated Discharge Date/Time: 11/05/24 07:53 <ABA Toledo - Last Filed: 11/04/24 17:38> Patient Disposition: Home, Self-Care <ABA Toledo - Last Filed: 11/04/24 17:38> Discharge Diagnosis: hyperkalemia/fluid overload nausea/vomiting <ABA Toledo - Last Filed: 11/04/24 17:38> hyperkalemia/fluid overload nausea/vomiting <Sara Pizarro NP - Last Filed: 11/07/24 07:18> Referrals: Teja Quinn MD [Physician] - 1 Week Matias Tan MD [Primary Care Provider] - 1 Week <ABA Toledo - Last Filed: 11/04/24 17:38> Discharge Medications: Continued levothyroxine 137 mcg tablet 1 tab PO DAILY@0600 atenolol 100 mg tablet 1 tab PO DAILY dextroamphetamine-amphetamine 20 mg tablet 1 tab PO TID@0800,1400,1800 hydromorphone 4 mg tablet 4 mg PO Q3H PRN (Reason: Severe Pain (Scale Score 7-10)) Lokelma 10 gram Powder In Packet 10 g PO SUTUTHSA@0900 Rx Instructions: on non dialysis days vitamin D3-vitamin K2 25 mcg (1,000 unit)-90 mcg Tablet,Disintegrating 1 tab PO SUTUTHSA@0900 amlodipine 5 mg tablet 5 mg PO BID albuterol sulfate [Ventolin HFA] 90 mcg/actuation HFA aerosol inhaler 2 puff INHALATION Q6H PRN (Reason: Shortness Of Breath) atorvastatin 40 mg tablet 40 mg PO DAILY alprazolam 0.5 mg tablet 0.5 mg PO DAILY PRN (Reason: anxiety attack) alprazolam 2 mg tablet 2 mg PO BID sevelamer carbonate 800 mg tablet 800 mg PO DAILY PRN (Reason: snack) sevelamer carbonate 800 mg tablet 800 mg PO TIDWM Rx Instructions: must administer with a meal/food insulin lispro [Humalog KwikPen Insulin] 100 unit/mL insulin pen 1 sliding scale dose subcut TIDAC Discontinued losartan 100 mg tablet 100 mg PO DAILY No Action (DME) FreeStyle Lite Strips Strip MISCELLANEOUS TID (DME) pen needle, diabetic [BD Ultra-Fine Short Pen Needle] 31 gauge x 5/16 needle subcut DAILY <ABA Toledo - Last Filed: 11/04/24 17:38> Discharge Orders: Discharge Order (Routine); Ordered 11/05/24 Ordered By: Sara Pizarro <ABA Toledo - Last Filed: 11/04/24 17:38> Activity on Discharge: As tolerated <ABA Toledo - Last Filed: 11/04/24 17:38> As tolerated <Sara Pizarro NP - Last Filed: 11/07/24 07:18> Stand Alone Forms: Patient Portal Discharge page <ABA Toledo - Last Filed: 11/04/24 17:38> Print Language: Paraguayan <ABA Toledo - Last Filed: 11/04/24 17:38> Care Plan Goals: see below <ABA Toledo - Last Filed: 11/04/24 17:38> Health Concerns: hyperkalemia - resolved vomiting/diarrhea -resolved <ABA Toledo - Last Filed: 11/04/24 17:38> Plan of Treatment: N/v/D likely due to viral illness, symptoms resolved Hyperkalemia, due to missed dialysis and losartan-resolved Stop taking losartan Continue hemodialysis as scheduled call to schedule outpatient follow up with nephrology <ABA Toledo - Last Filed: 11/04/24 17:38> Assessment: see discharge summary <ABA Toledo - Last Filed: 11/04/24 17:38> Discharge Date/Time: 11/06/24 06:00 <ABA Toledo - Last Filed: 11/04/24 17:38>
[2024-11-04] MEDS: Amphetamine Mixed Salts 20 MG TABLET PO (16:02)
--- NOTE | 2024-11-04 17:55 | HO.PM.IMPN ---
Subjective Subjective Date of Service: 11/04/24 Interval History: seen and examined this morning follow up for N/V/D which have resolved; hyperkalemia resolved feeling well no abdominal pain or further nausea or diarrhea planned discharge home after HD; but prior to d/c pt not feeling well with abdominal pain Physical Exam Vital Signs: Vital Signs: Last Vital Signs Temp 97.7 F 11/04/24 11:13 Pulse 58 11/04/24 11:13 Resp 18 11/04/24 11:13 BP 109/54 L 11/04/24 17:18 Pulse Ox 96 11/04/24 11:13 O2 Del Method Room Air 11/04/24 11:13 BMI result Body Mass Index 25.0 Const: General: cooperative, comfortable, no acute distress, alert and Physically active Nutritional Appearance: average body habitus Orientation/consciousness: patient oriented x3 Resp: Effort & Inspection: normal respiratory effort, able to speak in complete sentences, no respiratory distress and no use of accessory muscles Cardio: Rate: regular rate GI: Inspection: No distended Palpation (GI): Soft to palpation Neuro: General: patient oriented x3, moves all extremities and CN's II-XI intact bilaterally Extrem: General: Yes no pedal edema Objective Data Active Medications Acetaminophen (Acetaminophen 325 Mg Tablet) 650 mg PO Q6H PRN PRN Reason: Pain, Mild 1-3,fever,headache Albuterol Sulfate (Albuterol Sulfate 90 Mcg 8 Gm Inhaler) 2 puff INHALE Q6H PRN PRN Reason: Shortness Of Breath Alprazolam (Alprazolam 0.5 Mg Tablet) 0.5 mg PO DAILY PRN PRN Reason: anxiety attack Last Admin: 11/03/24 15:21 Dose: 0.5 mg Documented By: SOBIA Alprazolam (Alprazolam 0.5 Mg Tablet) 2 mg PO BID COUNT INCLUDES THE [facility] Last Admin: 11/04/24 08:18 Dose: 2 mg Documented By: LULU Amlodipine Besylate (Amlodipine Besylate 5 Mg Tablet) 5 mg PO BID COUNT INCLUDES THE [facility]; Protocol Last Admin: 11/04/24 11:53 Dose: Not Given Documented By: LULU Non-Admin Reason: hel for dialysis Amphetamine/Dextroamphetamine (Amphetamine Mixed Salts 20 Mg Tablet) 20 mg PO TID@0800,1400,1800 COUNT INCLUDES THE [facility] Last Admin: 11/04/24 16:02 Dose: 20 mg Documented By: LULU Atenolol (Atenolol 100 Mg Tablet) 100 mg PO DAILY COUNT INCLUDES THE [facility]; Protocol Last Admin: 11/04/24 09:00 Dose: Not Given Documented By: LULU Non-Admin Reason: held for dialysis Atorvastatin Calcium (Atorvastatin Calcium 40 Mg Tablet) 40 mg PO DAILY COUNT INCLUDES THE [facility] Last Admin: 11/04/24 08:18 Dose: 40 mg Documented By: LULU Calcium Carbonate (Calcium Carbonate 750 Mg Tab.Chew) 750 mg PO Q4H PRN PRN Reason: Heartburn Glucose (Glucose Gel 15 Gm Gel..Gram.) 15 gm PO Q15M PRN; Protocol PRN Reason: per Hypoglycemia Standing Ord. Hydromorphone HCl (Hydromorphone Hcl 2 Mg Tablet) 4 mg PO Q3H PRN PRN Reason: Severe Pain (Scale Score 7-10) Last Admin: 11/04/24 13:13 Dose: 4 mg Documented By: LULU Dextrose (D10) 250 mls @ 750 mls/hr IV Q15M PRN; Protocol PRN Reason: per Hypoglycemia Standing Ord. Insulin Human Lispro (Insulin Lispro 100 Unit/Ml 3 Ml Vial) 0 unit SUBCUT QIDACHS COUNT INCLUDES THE [facility]; Protocol Last Admin: 11/04/24 11:54 Dose: Not Given Documented By: LULU Non-Admin Reason: No Insulin Coverage Levothyroxine Sodium 112 mcg/ (Levothyroxine Sodium 25 mcg) 137 mcg PO DAILY@0600 COUNT INCLUDES THE [facility] Last Admin: 11/04/24 05:39 Dose: 137 mcg Documented By: JOVANNI Magnesium Hydroxide (Milk Of Magnesia 30 Ml Oral.Susp) 30 ml PO DAILY PRN PRN Reason: Constipation Melatonin (Melatonin 3 Mg Tablet) 6 mg PO BEDTIME PRN PRN Reason: Insomnia Ondansetron HCl (Ondansetron Hcl 4 Mg/2 Ml Vial) 4 mg IVPUSH Q8H PRN PRN Reason: Nausea and Vomiting Sevelamer Carbonate (Sevelamer Carbonate Tablet 800 Mg Tablet) 800 mg PO DAILY PRN PRN Reason: snack Sevelamer Carbonate (Sevelamer Carbonate Tablet 800 Mg Tablet) 800 mg PO TIDWM COUNT INCLUDES THE [facility] Last Admin: 11/04/24 13:11 Dose: 800 mg Documented By: LULU Sodium Chloride (0.9 % Sodium Chloride Flush 3 Ml Syringe) 3 ml IVFLUSH QSHIFT COUNT INCLUDES THE [facility] Last Admin: 11/04/24 08:21 Dose: 3 ml Documented By: LULU Sodium Zirconium Cyclosilicate (Sodium Zirconium Cyclosilicate 10 Gm Powd.Pack) 10 gm PO SUTUTHSA@0900 COUNT INCLUDES THE [facility] Last Admin: 11/03/24 10:08 Dose: 10 gm Documented By: RIOSCEL Labs 11/03/24 06:11 11/04/24 06:51 Labs: Laboratory Results - last 24 hr 11/03/24 11/04/24 11/04/24 19:53 06:51 07:20 Anion Gap 19 Estim Creat Clear Calc 7.5 Estimated GFR 7 POC Glucose 157 H 101 Random Glucose 94 Calcium 8.6 11/04/24 11:33 Anion Gap Estim Creat Clear Calc Estimated GFR POC Glucose 108 Random Glucose Calcium Assessment and Plan (1) Acute hyperkalemia: Status: Acute Plan This is a 69M PMH ESRD, htn, dm, hypothyroid, mood disorder, BPH, chronic diastolic CHF, presented with N<V<D acute abdominal pain will order ct scan GI panel N/V/D resolved no further diarrhea since admission supportive care Acute hyperkalemia due to missed dialysis resolved with HD 11/02, 11/03 continue baseline lokelma stop losartan on discharge ESRD on HD MWF schedule, had HD 11/05 as regularly scheduled HD continue phosphate binders Hypertension Continue atenolol, amlodipine d/c losartan due to recurrent hyperkalemia Hypothyroid Continue levothyroxine Diabetes mellitus 2 diet controlled Continue insulin sliding scale Mood disorder Continue lorazepam Chronic pain continue baseline hydromorphone DVT prophylaxis with mechanical devices Full code Quality Stroke Does the patient have a stroke diagnosis?: No VTE Prior VTE?: No VTE Risk Level:: Medical - moderate - high VTE Device Contraindication: N/A - Device Ordered VTE Drug Contraindication: Treatment Not Indicated
--- NOTE | 2024-11-04 19:05 | PC.NURSE ---
Pt planned to dc after dialysis returned to room after 1700 vitals stable POC 113 pt ate supper. While OOB to bathroom ready for dc pt c/o severe stomach cramps feeling dizzy sweating. Pt returned to bed vital stable placed back on tele Diana TRONCOSO notified dc canceled. Pt states is feeling better shortly after episode. CT scan abdomen pending. Pt resting in bed aware of plan updated
[2024-11-04] MEDS: amLODIPine Besylate 5 MG TABLET PO (19:51)
[2024-11-04 20:43] LABS: Glucose, Whole Blood 113 mg/dL (60-115)
[2024-11-04 20:43] LABS: Glucose, Whole Blood 123 mg/dL (60-115)
[2024-11-04] MEDS: ondansetron HCL 4 MG/2 ML VIAL IVPUSH (22:57)
[2024-11-04] MEDS: Famotidine/PF 20 MG/2 ML VIAL IVPUSH (23:34)
[2024-11-05] VITALS (7 sets, daily range): BP systolic 116–162; BP diastolic 57–76; PULSE 66–85; RESP 16–20; TEMP 36.2–37; O2SAT 98–100
[2024-11-05] MEDS: Levothyroxine Sodium 112 MCG, Levothyroxine Sodium 25 MCG 137 MCG PO (06:08)
[2024-11-05] MEDS: HYDROmorphone HCl 2 MG TABLET 4 MG PO ×4 (06:09→22:48)
[2024-11-05] MEDS: ondansetron HCL 4 MG/2 ML VIAL IVPUSH (06:09)
[2024-11-05 07:26] LABS: Glucose, Whole Blood 107 mg/dL (60-115)
[2024-11-05 08:11] LABS: Anion Gap 17 (12-20); Blood Urea Nitrogen 45 mg/dL (9-16); Calcium 8.1 mg/dL (8.4-10.2); Carbon Dioxide 20 mmol/L (22-29); Chloride 99 mmol/L (96-108); Creatinine Clr Calc Pharmacy 9.1; Estimated Glomerular Filt Rate 8; Glucose Random 103 mg/dL (60-115); Potassium 4.6 mmol/L (3.3-5.1); Sodium 131 mmol/L (135-145)
[2024-11-05] MEDS: Atorvastatin Calcium 40 MG TABLET PO (08:33)
[2024-11-05] MEDS: Amphetamine Mixed Salts 20 MG TABLET PO ×3 (08:33→17:44)
[2024-11-05] MEDS: atenoloL 100 MG TABLET PO (08:33)
[2024-11-05] MEDS: amLODIPine Besylate 5 MG TABLET PO ×2 (08:33→22:47)
[2024-11-05] MEDS: Sevelamer Carbonate Tablet 800 MG TABLET PO ×3 (08:34→17:44)
[2024-11-05] MEDS: ALPRAZolam 0.5 MG TABLET 2 MG PO ×2 (08:34→22:48)
--- NOTE | 2024-11-05 09:11 | MHC.CM.PN ---
Patient has been medically cleared for dc to home today, self care. Last IMM addressed on 11/03/2024.
[2024-11-05 11:25] LABS: Glucose, Whole Blood 91 mg/dL (60-115)
[2024-11-05] MEDS: Sodium Zirconium Cyclosilicate 10 GM POWD.PACK PO (12:23)
[2024-11-05 16:25] LABS: Glucose, Whole Blood 121 mg/dL (60-115)
[2024-11-05 20:50] LABS: Glucose, Whole Blood 120 mg/dL (60-115)
[2024-11-06 03:26] VITALS: BP 133/61; PULSE 65; RESP 20; TEMP 36.2; O2SAT 99
[2024-11-06] MEDS: Calcium Carbonate 750 MG TAB.CHEW PO (03:27)
[2024-11-06] MEDS: HYDROmorphone HCl 2 MG TABLET 4 MG PO (05:04)
[2024-11-06] MEDS: Levothyroxine Sodium 112 MCG, Levothyroxine Sodium 25 MCG 137 MCG PO (05:04)
--- NOTE | 2024-11-06 06:13 | PC.NURSE ---
Around 0530, the patient insisted on leaving the hospital and said his is already on her way to the hospital to pick him up. The then called up to the unit to inform that she's already downstairs waiting for the patient. The overnight provider was contacted about the situation as the discharge paperwork was already completed yesterday. The provider was unable to discharge the patient at the moment and said the patient can be discharged properly by the day provider by 0700. The patient was informed that he could have his discharge paperwork and prescriptions ready if he could wait just a bit longer until day team arrives. The patient replied that you can mail that to me and said, I'm getting out of here now. 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 The provider was updated on the situation and confirmed that he may leave AMA, considering he had already been medically cleared for discharge. No tele monitor or IV catheter was present on the patient. The patient signed the AMA form, grabbed his belongings, and was directed to the elevator. Clinical correction officer supervisor was notified.
== END 2024-11-06 06:00 | disposition home or self-care (01) | DRG 640 ==
LOC: HO.ED 14:57 → HO.EDOVER 15:38 → HO.IMC 19:40
PROVIDERS: Physician Assistant; Physician Assistant Medical; Admitting Provider Nurse Practitioner Acute Care; Emergency Provider Student in an Organized Health Care Education/Training Program; PCP Family Medicine; Visit Provider Nurse Practitioner Acute Care
DX: E87.5 Hyperkalemia (principal); N18.6 End stage renal disease; I13.2 Hypertensive heart and chronic kidney disease with heart failure and with stage 5 chronic kidney disease, or end stage renal disease; I50.32 Chronic diastolic (congestive) heart failure; N25.81 Secondary hyperparathyroidism of renal origin; E03.9 Hypothyroidism, unspecified; F39 Unspecified mood [affective] disorder; G89.29 Other chronic pain; E11.22 Type 2 diabetes mellitus with diabetic chronic kidney disease; N40.0 Benign prostatic hyperplasia without lower urinary tract symptoms; Z20.822 Contact with and (suspected) exposure to COVID-19; Z99.2 Dependence on renal dialysis; Z91.158 Patient's noncompliance with renal dialysis for other reason; Z79.4 Long term (current) use of insulin; Z79.891 Long term (current) use of opiate analgesic; Z79.890 Hormone replacement therapy; Z79.899 Other long term (current) drug therapy
CPT/HCPCS: 0241U; 36415; 71045; 74176; 80048; 80053; 82947; 83690; 85025; 85027; 90999; 93005; 99285; J0613; J2405

== ENCOUNTER → 2024-11-02 11:05 | Outpatient (BNV) | payer MEDICARE, SELFPAY | PROVIDERS: Emergency Provider Student in an Organized Health Care Education/Training Program; PCP Family Medicine; Visit Provider Radiology Diagnostic Radiology | DX: R53.1 Weakness (principal) | CPT/HCPCS: 71045 ==

== ENCOUNTER → 2024-11-02 11:06 | Outpatient (BNV) | payer MEDICARE, SELFPAY | PROVIDERS: Admitting Provider Nurse Practitioner Acute Care; Emergency Provider Student in an Organized Health Care Education/Training Program; PCP Family Medicine; Visit Provider Internal Medicine Cardiovascular Disease | DX: R53.1 Weakness (principal) | CPT/HCPCS: 93010 ==

== ENCOUNTER 2024-11-02 15:30 | Outpatient (BNV) | payer MEDICARE, SELFPAY | END 2024-11-04 19:37 | PROVIDERS: Admitting Provider Nurse Practitioner Acute Care; Emergency Provider Student in an Organized Health Care Education/Training Program; PCP Family Medicine; Visit Provider Radiology Diagnostic Radiology | DX: R10.9 Unspecified abdominal pain (principal) | CPT/HCPCS: 74176 ==

== ENCOUNTER → 2024-11-02 15:30 | Outpatient (BNV) | payer MEDICARE, SELFPAY | PROVIDERS: Admitting Provider Nurse Practitioner Acute Care; Emergency Provider Student in an Organized Health Care Education/Training Program; PCP Family Medicine; Visit Provider Nurse Practitioner Acute Care | DX: E87.5 Hyperkalemia (principal) | CPT/HCPCS: 99223; 99232; 99239 ==

== ENCOUNTER → 2024-11-02 15:30 | Outpatient (BNV) | payer MEDICARE, SELFPAY | PROVIDERS: Admitting Provider Nurse Practitioner Acute Care; Emergency Provider Student in an Organized Health Care Education/Training Program; PCP Family Medicine; Visit Provider Internal Medicine Hypertension Specialist | DX: E87.5 Hyperkalemia (principal); N18.6 End stage renal disease | CPT/HCPCS: 99223 ==

== ENCOUNTER 2025-01-07 08:44 | Emergency (ER) | payer MEDICARE, SELFPAY ==
--- NOTE | ~2025-01-07 | XR_ITS ---
CLINICAL HISTORY: SOB, CHF 1 view chest x-ray. Comparison: CR/SR - XR CHEST 1V - 11/02/24 11:25 EST Findings: The lungs are adequately expanded. Minimal interstitial prominence. No focal consolidation. No effusion or pneumothorax. Cardiac and mediastinal contours are within normal limits. No acute osseous abnormality Impression: Minimal interstitial prominence without overt edema or focal consolidation. This document has been electronically signed by: Booker Rodriguez MD on 01/07/2025 09:52:17
[2025-01-07 09:01] VITALS: BP 180/81; PULSE 77; RESP 16; TEMP 37.1; O2SAT 97; O2SAT 99; BMI 27.0
--- NOTE | 2025-01-07 09:31 | ECG_ITS ---
Test Reason : SOB Blood Pressure : */* mmHG Vent. Rate : 78 BPM Atrial Rate : 78 BPM P-R Int : 146 ms QRS Dur : 82 ms QT Int : 406 ms P-R-T Axes : 52 5 49 degrees QTcB Int : 462 ms Normal sinus rhythm Normal ECG No previous ECGs available Referred By: Rekha Rutledge Electronically Signed By: LEVI EVANS MD
--- NOTE | 2025-01-07 09:31 | ED_ITS ---
HPI - General Adult General Chief complaint: General Medical Stated complaint: SOB Time Seen by Provider: 01/07/25 09:06 Source: patient and EMS Mode of arrival: EMS Limitations: no limitations History of Present Illness ED Provider: DR. Rutledge HPI narrative: 70-year-old male PMHx for ESRD on HD M// last dialysis was yesterday, HTN, DM, hypothyroid, mood disorder, BPH, chronic diastolic HF came in for evaluation of difficulty breathing. Patient makes small amount urine, patient think that his difficulty breathing is secondary to volume overload despite patient this week received 1 extra session of dialysis, patient also is coughing with clear sputum production and feels generalized body aches, no chest pain, no abdominal pain, no headache, no fever, no chills. No sick contacts, recent travel no lower extremity swelling Related Data Home Medications ?Medication ?Instructions ?Recorded ?Confirmed atenolol 100 mg tablet 1 tab PO DAILY 07/11/21 11/02/24 blood sugar diagnostic (FreeStyle 07/11/21 10/30/24 Lite Strips) dextroamphetamine-amphetamine 20 1 tab PO TID@0800,1400,1800 07/11/21 11/02/24 mg tablet levothyroxine 137 mcg tablet 1 tab PO DAILY@0600 07/11/21 11/02/24 pen needle, diabetic 31 gauge x 07/11/21 10/30/2403/03 (BD Ultra-Fine Short Pen Needle) amlodipine 5 mg tablet 5 mg PO BID 09/03/23 11/02/24 albuterol sulfate 90 mcg/actuation 2 puff inhalation Q6H PRN 10/29/23 11/02/24 aerosol inhaler (Ventolin HFA) Shortness Of Breath atorvastatin 40 mg tablet 40 mg PO DAILY 02/22/24 11/02/24 hydromorphone 4 mg tablet 4 mg PO Q3H PRN Severe Pain (Scale 06/19/24 11/02/24 Score 7-10) sodium zirconium cyclosilicate 10 10 g PO SUTUTHSA@0900 06/19/24 11/02/24 gram oral powder packet (Lokelma) alprazolam 0.5 mg tablet 0.5 mg PO DAILY PRN anxiety attack 10/30/24 11/02/24 alprazolam 2 mg tablet 2 mg PO BID 10/30/24 11/02/24 insulin lispro 100 unit/mL 1 sliding scale dose subcut TIDAC 10/30/24 11/02/24 subcutaneous pen (Humalog KwikPen (U-100) Insulin) sevelamer carbonate 800 mg tablet 800 mg PO DAILY PRN snack 10/30/24 11/02/24 sevelamer carbonate 800 mg tablet 800 mg PO TIDWM 10/30/24 11/02/24 vitamin D3 25 mcg (1,000 unit)-vit 1 tab PO SUTUTHSA@0900 11/02/24 11/02/24 K2 90 mcg disintegrating tablet Allergies Allergy/AdvReac Type Severity Reaction Status Date / Time Penicillins [PENICILLINS] Allergy Unknown RASH Verified 01/07/25 09:03 tramadol [From ULTRAM] Allergy Unknown RASH Verified 01/07/25 09:03 trazodone [TRAZODONE] Allergy Unknown PRIAPISM Verified 01/07/25 09:03 risperidone [RISPERIDONE] AdvReac Severe dizzy, EPS Verified 01/07/25 09:03 Review of Systems 2 Review of Systems: All other systems are reviewed and are negative Constitutional: Reports as per HPI and Reports no additional constitutional complaints Eyes: Reports as per HPI and Reports no additional eye complaints Reports system reviewed and no additional complaints, except as documented Cardiovascular: Reports as per HPI and Reports no additional cardiovascular complaints Respiratory: Reports as per HPI and Reports no additional respiratory complaints Gastrointestinal: Reports as per HPI and Reports no additional gastrointestinal complaints Genitourinary: Reports no additional female genitourinary complaints Musculoskeletal: Reports no additional musculoskeletal complaints Skin/Breast: Reports system reviewed and no additional complaints, except as docu Psychiatric: Reports no additional psychiatric complaints Endocrine: Reports no additional endocrine complaints Hematologic/Lymphatic: Reports no additional hematologic/lymphatic complaints Allergic/Immunologic: Reports no additional allergic/immunologic complaints Reports system reviewed and no additional complaints, except as documented and Reports Abnormal speech present [facility] Past Medical History Medical History End stage kidney disease ESRD needing dialysis Secondary hyperparathyroidism (of renal origin) Anemia in chronic kidney disease DONIS (acute kidney injury) End stage renal disease on dialysis Diabetes Kidney failure HTN (hypertension) Social History Social History Household Members: Unknown / Unable to assess Housing: Unknown / Unable to assess Are you a primary career law clerk to a significant other at home: No Do you presently have visiting nurse or other home services: No Alcohol intake: never Comment: Pt turning off own bed alarm Kasie Pizarro COFOUNDER aware provide with re- educa Patient Tobacco Use Status: Never used Tobacco Cigarette Packs Per Day: 0 Cigarettes Per Day: 0.0 Years Smoked: NA Smoked in Last 30 Days: No e-Cigarette/Vaping Use: Never Used Second Hand Smoke Exposure: No Use of substances other than those prescribed or required for medical reasons: No Advance Directives: Yes Advance Directives on File: Yes Advance Directives Date on File: 09/07/23 Do you have a plan to hurt others: No Plan service: No Physical Exam ED Vital Signs: Vital Signs - 24 hr 01/07/25 09:01 01/07/25 09:37 Temperature 98.7 F Pulse Rate 77 77 Respiratory Rate 16 Blood Pressure 180/81 H 180/81 H Pulse Oximetry 99 Oxygen Delivery Method Room Air BMI result Body Mass Index 27.0 Vital signs have been reviewed and appear to be correct. Blood pressure elevated. Heart rate normal. Respiratory rate normal. Temperature normal. Oxygen saturation normal. Appearance: Alert. Oriented X3. No acute distress. Head: Normal external exam. Normocephalic. Atraumatic. No Castellano signs noted. No raccoon eyes noted Eyes: PERRLA. EOMI. Conjunctiva and sclera normal. Eyelids normal. ENT: TM's Normal. Pharynx normal. Uvula midline. Moist mucous membranes. No trismus noted. No drooling noted. No muffled voice noted. Neck: Normal inspection. Neck supple. FROM. No adenopathy. Thyroid Normal. No meningeal signs. No neck mass noted. CVS: Normal heart rate and rhythm. Heart sound normal. No murmurs noted. Pulses normal throughout. Respiratory: No respiratory distress. Painless inspiration. Breath sounds normal. No wheezes/rales/rhonchi noted. Chest nontender. No accessory muscle usage noted or decreased air movement noted. Abdomen: Soft and nontender. Bowel sounds normal in all 4 quadrants. No distention noted. No organomegaly noted. No visible injury noted. Back: No CVA tenderness. Full range of motion noted. Skin: Skin warm and dry. Normal skin color. Normal skin turgor. No rashes/lesions/lacerations noted. Extremities: No lower extremity edema. Extremities exhibit normal range of motion. Extremities nontender. Neuro: Oriented X 3. Cranial nerve exam: II-XII are grossly intact No motor deficit. No sensory deficit. Reflexes normal. Course Reevaluation(s) Reevaluation #1: +flu. Exam is not consistent with volume overload, patient received a total 4 dialysis last week, chest x-ray is unremarkable. Patient's symptoms is related to flu. VSS with stable O2 sat Time: 11:32 Medications Administered Discontinued Medications Generic Name Dose Route Start Last Admin Trade Name Freq PRN Reason Stop Dose Admin Nitroglycerin 1 inch 01/07/25 09:29 01/07/25 09:37 Nitroglycerin 2 % Oint 1 Gm Packet TRANSDERMA 01/07/25 09:30 1 inch ONCE ONE Administration Medical Decision Making Differential Diagnosis Differential Diagnoses: The differential diagnosis associated with the presentation includes (Volume overload, CHF, pneumonia, pneumothorax, pleural effusion, influenza, COVID-19 infection, RSV.) Admission/Observation Consideration of admission/observation: Escalation of care including admission/observation considered Lab Data MDM Lab Attestation statement: I reviewed the patient's lab results. 01/07/25 10:23 01/07/25 10:23 Labs: Lab Results 01/07/25 01/07/25 Range/Units 09:45 10:23 WBC 8.4 (4.8-10.8) X10*3/uL RBC 3.93 L (4.60-5.80) X10*6/uL Hgb 12.3 L (14.0-18.0) g/dl Hct 35.7 L (42.0-52.0) % MCV 90.8 (80.0-98.0) fL MCH 31.3 (27.0-33.0) pg MCHC 34.5 (31.0-36.0) g/dl RDW 14.8 (11.0-16.0) % Plt Count 166 (160-400) X10*3/uL MPV 8.8 L (9.4-12.4) fL Immature Gran % (Auto) 0.4 (0.0-0.4) % Neut % (Auto) 74.4 H (45-73) % Lymph % (Auto) 6.6 L (20-40) % [place] % (Auto) 15.9 H (2-11) % Eos % (Auto) 1.9 (0-4) % Baso % (Auto) 0.8 (0-2) % Lymph # (Auto) 0.6 L (1.2-4.9) X10*3/uL [place] # (Auto) 1.3 H (0.1-1.2) X10*3/uL Eos # (Auto) 0.2 (0.0-0.4) X10*3/uL Baso # (Auto) 0.1 (0.0-0.2) X10*3/uL Abs Immat Gran (auto) 0.03 (0.00-0.03) X10*3/uL Absolute Neuts (auto) 6.2 (2.0-8.3) x10*3/uL Absolute Nucleated RBC 0.000 (0.0-0.012) X10*3/uL Nucleated RBC % (auto) 0.0 (0.0-0.2) /100WBC Sodium 134 L (135-145) mmol/L Potassium 5.3 H (3.3-5.1) mmol/L Chloride 94 L (96-108) mmol/L Carbon Dioxide 23 (22-29) mmol/L Anion Gap 22 H (12-20) BUN 27 H (9-16) mg/dL Creatinine 5.96 H* (0.5-1.4) mg/dL Estim Creat Clear Calc 10.2 Estimated GFR 9 Random Glucose 109 (60-115) mg/dL Calcium 9.5 D (8.4-10.2) mg/dL Total Bilirubin 0.8 (0.0-1.0) mg/dL Direct Bilirubin 0.2 (0.0-0.5) mg/dL AST 52 H (5-37) U/L ALT 32 (0-40) U/L Alkaline Phosphatase 90 (39-117) U/L Troponin I High Sens 10.0 D (<3.5-35.0) ng/L B-Natriuretic Peptide 754 H (<100) pg/mL Total Protein 9.0 H (6.5-8.0) g/dL Albumin 4.6 (3.5-5.0) g/dL Lipase 15 (8-78) U/L Influenza Type A (PCR) POSITIVE A (Negative) Influenza Type B (PCR) NEGATIVE (Negative) RSV RNA Qual (PCR) NEGATIVE (Negative) SARS-CoV-2 RNA (RT-PCR) NEGATIVE (Negative) Independent Interpretation I performed an independent interpretation of an: Plain X-Ray (Chest:Minimal interstitial prominence without overt edema or focal consolidation.) Radiology Impression Discussion of test interpretation with radiology: I have reviewed the radiologist's reading. Discharge Plan Discharge Clinical Impression: Influenza A Patient Disposition: Home, Self-Care Instructions: Influenza (ED) Prescriptions: No Action levothyroxine 137 mcg tablet 1 tab PO DAILY@0600 atenolol 100 mg tablet 1 tab PO DAILY (DME) FreeStyle Lite Strips Strip MISCELLANEOUS TID dextroamphetamine-amphetamine 20 mg tablet 1 tab PO TID@0800,1400,1800 (DME) pen needle, diabetic [BD Ultra-Fine Short Pen Needle] 31 gauge x 5/16 needle subcut DAILY hydromorphone 4 mg tablet 4 mg PO Q3H PRN (Reason: Severe Pain (Scale Score 7-10)) Lokelma 10 gram Powder In Packet 10 g PO SUTUTHSA@0900 Rx Instructions: on non dialysis days vitamin D3-vitamin K2 25 mcg (1,000 unit)-90 mcg Tablet,Disintegrating 1 tab PO SUTUTHSA@0900 amlodipine 5 mg tablet 5 mg PO BID albuterol sulfate [Ventolin HFA] 90 mcg/actuation HFA aerosol inhaler 2 puff INHALATION Q6H PRN (Reason: Shortness Of Breath) atorvastatin 40 mg tablet 40 mg PO DAILY alprazolam 0.5 mg tablet 0.5 mg PO DAILY PRN (Reason: anxiety attack) alprazolam 2 mg tablet 2 mg PO BID sevelamer carbonate 800 mg tablet 800 mg PO DAILY PRN (Reason: snack) sevelamer carbonate 800 mg tablet 800 mg PO TIDWM Rx Instructions: must administer with a meal/food insulin lispro [Humalog KwikPen Insulin] 100 unit/mL insulin pen 1 sliding scale dose subcut TIDAC Referrals: Matias Tan MD [Primary Care Provider] - Print Language: [place]
[2025-01-07 09:37] VITALS: BP 180/81; PULSE 77
[2025-01-07] MEDS: Nitroglycerin 2 % Oint 1 GM Packet 1 INCH TRANSDERMA (09:37)
--- NOTE | 2025-01-07 10:27 | PC.NURSE ---
patient a&ox3, iv inserted, labs drawn, swab obtained, pt medicated per order, cxr performed, wellness program coordinator applied-nsr on monitor. Pt c/o generalized body aches/pain 05/28. lt av fistula + bruit/thrill, rr equal/non labored- lungs fine crackles upper lobes, call [place] within reach, plan of care ongoing
[2025-01-07 10:28] LABS: MANUAL DIFF FLAG NO
[2025-01-07 10:29] LABS: Basophils Absolute Auto 0.1 X10*3/uL (0.0-0.2); Basophils Percent Auto 0.8 % (0-2); Eosinophils Absolute Auto 0.2 X10*3/uL (0.0-0.4); Eosinophils Percent Auto 1.9 % (0-4); Hematocrit 35.7 % (42.0-52.0); Hemoglobin 12.3 g/dl (14.0-18.0); Imm Gran Abs Auto 0.03 X10*3/uL (0.00-0.03); Imm Gran Pct Auto 0.4 % (0.0-0.4); Lymphocytes Absolute Auto 0.6 X10*3/uL (1.2-4.9); Lymphocytes Percent Auto 6.6 % (20-40); Mean Corpuscular HGB Conc 34.5 g/dl (31.0-36.0); Mean Corpuscular Hemoglobin 31.3 pg (27.0-33.0); Mean Corpuscular Volume 90.8 fL (80.0-98.0); Mean Platelet Volume 8.8 fL (9.4-12.4); Monocytes Absolute Auto 1.3 X10*3/uL (0.1-1.2); Monocytes Percent Auto 15.9 % (2-11); Neutrophils Absolute Auto 6.2 x10*3/uL (2.0-8.3); Neutrophils Percent Auto 74.4 % (45-73); Platelet Count 166 X10*3/uL (160-400); Red Blood Count 3.93 X10*6/uL (4.60-5.80); Red Cell Distribution Width 14.8 % (11.0-16.0); White Blood Count 8.4 X10*3/uL (4.8-10.8)
[2025-01-07 10:37] LABS: Influenza A PCR POSITIVE (Negative); Influenza B PCR NEGATIVE (Negative); Resp Syncy Virus RNA Qual PCR NEGATIVE (Negative); SARS COV2 PCR INHOUSE NEGATIVE (Negative)
--- NOTE | 2025-01-07 10:49 | PC.NURSE ---
[place] number [phone]
--- NOTE | 2025-01-07 10:50 | PC.NURSE ---
pts called, she stated that he went to dialysis an extra day this week m, thu, , thursday. she states that she is currently in [place] today but if pt needs to be brought home that we can call her and she will make arrangements with her daughter to get him home.
[2025-01-07 10:53] LABS: B Type Natriuretic Peptide 754 pg/mL (<100)
[2025-01-07 10:55] LABS: Alanine Aminotransferase 32 U/L (0-40); Albumin Level 4.6 g/dL (3.5-5.0); Alkaline Phosphatase 90 U/L (39-117); Anion Gap 22 (12-20); Aspartate Amino Transferase 52 U/L (5-37); Bilirubin Direct 0.2 mg/dL (0.0-0.5); Bilirubin Total 0.8 mg/dL (0.0-1.0); Blood Urea Nitrogen 27 mg/dL (9-16); Calcium 9.5 mg/dL (8.4-10.2); Carbon Dioxide 23 mmol/L (22-29); Chloride 94 mmol/L (96-108); Creatinine Clr Calc Pharmacy 10.2; Estimated Glomerular Filt Rate 9; Glucose Random 109 mg/dL (60-115); Lipase 15 U/L (8-78); Potassium 5.3 mmol/L (3.3-5.1); Sodium 134 mmol/L (135-145)
--- NOTE | 2025-01-07 11:36 | PC.NURSE ---
was called pt to discharge home with daughter, to call daughter to come pick up driver the patient
[2025-01-07 11:44] VITALS: BP 160/83; PULSE 79; RESP 18; TEMP 37.6; O2SAT 96
[2025-01-07 11:46] VITALS: BP 160/83; PULSE 79; RESP 18; TEMP 37.6; O2SAT 96
[2025-01-07] MEDS: HYDROmorphone HCl 2 MG TABLET PO (11:54)
[2025-01-07] MEDS: Acetaminophen 325 MG TABLET 650 MG PO (12:09)
== END 2025-01-07 12:16 | disposition home or self-care (01) ==
PROVIDERS: Emergency Provider Emergency Medicine; PCP Family Medicine
DX: J10.1 Influenza due to other identified influenza virus with other respiratory manifestations (principal); R06.02 Shortness of breath; R05.9 Cough, unspecified; Z03.818 Encounter for observation for suspected exposure to other biological agents ruled out; E11.22 Type 2 diabetes mellitus with diabetic chronic kidney disease; I13.2 Hypertensive heart and chronic kidney disease with heart failure and with stage 5 chronic kidney disease, or end stage renal disease; I50.9 Heart failure, unspecified; N18.6 End stage renal disease; Z99.2 Dependence on renal dialysis; E03.9 Hypothyroidism, unspecified; Z79.02 Long term (current) use of antithrombotics/antiplatelets; Z79.899 Other long term (current) drug therapy; Z79.4 Long term (current) use of insulin
CPT/HCPCS: 0241U; 71045; 80048; 80076; 83690; 83880; 84484; 85025; 93005; 99285

== ENCOUNTER → 2025-01-07 09:31 | Outpatient (BNV) | payer MEDICARE, SELFPAY | PROVIDERS: Emergency Provider Emergency Medicine; PCP Family Medicine; Visit Provider Radiology Vascular & Interventional Radiology | DX: J84.9 Interstitial pulmonary disease, unspecified (principal) | CPT/HCPCS: 71045 ==

== ENCOUNTER → 2025-01-07 09:31 | Outpatient (BNV) | payer MEDICARE, SELFPAY | PROVIDERS: Emergency Provider Emergency Medicine; PCP Family Medicine; Visit Provider Internal Medicine Cardiovascular Disease | DX: R06.02 Shortness of breath (principal) | CPT/HCPCS: 93010 ==

== ENCOUNTER 2025-01-09 08:33 | Inpatient (IN) | payer MEDICARE, SELFPAY ==
[2025-01-09] VITALS (14 sets, daily range): BP systolic 107–171; BP diastolic 56–78; PULSE 61–83; RESP 16–26; TEMP 36.5–39.2; O2SAT 87–100; BMI 24.6
--- NOTE | ~2025-01-09 | XR_ITS ---
EXAMINATION: XR CHEST 1 VIEW HISTORY: cp COMPARISON: Comparison is made with the prior examination dated 01/07/2025. FINDINGS: A single AP portable view of the chest performed at 9:19 AM is submitted. There are multifocal patchy airspace opacities in the right upper and lower lung zones and in the left midlung zone which may represent pneumonia or pulmonary edema. There is no pneumothorax or definite pleural effusion. The heart is mildly enlarged. The bones are intact. XR/XR chest 1V IMPRESSION: Cardiomegaly. Multifocal patchy airspace opacities which may represent pneumonia or pulmonary edema. Electronically signed by: Ferdinand Love MD 01/09/2025 09:28 AM EDT
--- NOTE | ~2025-01-09 | CT_ITS ---
EXAMINATION: CT HEAD WITHOUT CONTRAST CLINICAL INFORMATION: [facility] COMPARISON: October 30, 2023. TECHNIQUE: Contiguous axial imaging was performed from the skull base to vertex without intravenous administration of contrast. This CT examination was performed using dose optimization techniques as appropriate, variously including the following: *Automated exposure control *Adjustment of mA and/or kV according to patient size (this includes techniques or standardized protocols for targeted exams where dose is matched to indication/reason for exam; i.e. extremities or head) *Use of iterative reconstruction technique DLP: 708.45 mGy-cm FINDINGS: Limited by patient's motion artifact. No acute intracranial hemorrhage, mass effect, midline shift, hydrocephalus or herniation. Prominence of the extra-axial CSF spaces cerebral sulci involving the bifrontal bitemporal regions. Finch-white matter differentiation is normal. Posterior cranial fossa contents demonstrated no acute intracranial hemorrhage or mass effect. Sellar/suprasellar region demonstrated no gross masses. Craniocervical junction is intact. Calcified plaques in the V4 segments of the vertebral arteries and cavernous supracavernous segments both ICAs. Bilateral multifocal patchy deep periventricular white matter hypodensities. The bony calvarium is intact. No air-fluid levels in the paranasal sinuses. Tympanic cavities and mastoid air cells are aerated. No gross masses or fluid collections in the intraconal or extraconal compartments of the orbits. CT/CT head/brain wo IV con IMPRESSION: Stable appearance of the brain demonstrated no acute intracranial hemorrhage. Small vessel occlusive disease. Bifrontal/bitemporal lobe atrophy. Electronically signed by: Dg Rob MD 01/09/2025 01:50 PM EDT
--- NOTE | ~2025-01-09 | CT_ITS ---
EXAMINATION: CT CHEST WITHOUT IV CONTRAST INDICATION: ? Pneumonia COMPARISON: Correlation is made with an AP portable view of the chest performed earlier in the day. TECHNIQUE: Helical CT scan of the chest was performed without intravenous contrast. Coronal and sagittal reformatted images were generated and reviewed. This CT exam was performed with one or more of the following dose reduction techniques: automated exposure control, adjustment of the mA and/or kV according to patient size, use of iterative reconstruction technique. DLP: 398 mGy-cm CHEST: THYROID: The thyroid is unremarkable. LUNGS: There are multifocal groundglass, tree-in-bud, and airspace opacities in all lobes of both lungs, likely inflammatory in nature. The most prominent opacities are in the right middle lobe and the superior segment of the left lower lobe. No significant thickened interlobular septae are identified to suggest interstitial edema. MEDIASTINUM: There is a 1.4 cm right paratracheal lymph node. DONITA: Evaluation of the hilar regions is limited by lack of intravenous contrast material. CARDIOVASCULATURE: The heart is normal in size. There is no pericardial effusion. The thoracic aorta is normal in caliber. DEGREE OF CORONARY CALCIFICATION: severe PLEURA: There is no pleural effusion. No pneumothorax. MAIN AIRWAYS: The mainstem bronchi and proximal branches are patent. AXILLA: There is no axillary lymphadenopathy. BONES AND SOFT TISSUES: Unremarkable UPPER ABDOMEN: The visualized portions of the liver, spleen, and adrenals have an unremarkable unenhanced appearance. The gallbladder is distended. CT/CT chest wo IV con IMPRESSION: Multifocal groundglass, tree-in-bud, and airspace opacities most compatible with pneumonia. Follow-up is recommended to document resolution. Electronically signed by: Ferdinand Love MD 01/09/2025 02:01 PM EDT
--- NOTE | 2025-01-09 08:58 | ED.WEAKNESS ---
HPI - Weakness General Chief complaint: Weakness Stated complaint: FLU-LIKE, AMS Time Seen by Provider: 01/09/25 08:54 History of Present Illness HPI Narrative: 70-year-old male PMHx for ESRD on HD M// last dialysis was yesterday, HTN, DM, hypothyroid, mood disorder, BPH, chronic diastolic HF came in for evaluation of difficulty breathing. Patient makes small amount urine. Was seen on the . Presented today with having increasing generalized malaise weakness unable to make dialysis. Sent in for further evaluation. Patient unable to give detailed feels very weak tired. Related Data Home Medications ?Medication ?Instructions ?Recorded ?Confirmed atenolol 100 mg tablet 1 tab PO DAILY 07/11/21 11/02/24 blood sugar diagnostic (FreeStyle 07/11/21 10/30/24 Lite Strips) dextroamphetamine-amphetamine 20 1 tab PO TID@0800,1400,1800 07/11/21 11/02/24 mg tablet levothyroxine 137 mcg tablet 1 tab PO DAILY@0600 07/11/21 11/02/24 pen needle, diabetic 31 gauge x 07/11/21 10/30/24 5/16 (BD Ultra-Fine Short Pen Needle) amlodipine 5 mg tablet 5 mg PO BID 09/03/23 11/02/24 albuterol sulfate 90 mcg/actuation 2 puff inhalation Q6H PRN 10/29/23 11/02/24 aerosol inhaler (Ventolin HFA) Shortness Of Breath atorvastatin 40 mg tablet 40 mg PO DAILY 02/22/24 11/02/24 hydromorphone 4 mg tablet 4 mg PO Q3H PRN Severe Pain (Scale 06/19/24 11/02/24 Score 7-10) sodium zirconium cyclosilicate 10 10 g PO SUTUTHSA@0900 06/19/24 11/02/24 gram oral powder packet (Lokelma) alprazolam 0.5 mg tablet 0.5 mg PO DAILY PRN anxiety attack 10/30/24 11/02/24 alprazolam 2 mg tablet 2 mg PO BID 10/30/24 11/02/24 insulin lispro 100 unit/mL 1 sliding scale dose subcut TIDAC 10/30/24 11/02/24 subcutaneous pen (Humalog KwikPen (U-100) Insulin) sevelamer carbonate 800 mg tablet 800 mg PO DAILY PRN snack 10/30/24 11/02/24 sevelamer carbonate 800 mg tablet 800 mg PO TIDWM 10/30/24 11/02/24 vitamin D3 25 mcg (1,000 unit)-vit 1 tab PO SUTUTHSA@0900 11/02/24 11/02/24 K2 90 mcg disintegrating tablet losartan 100 mg tablet 100 mg PO DAILY 01/09/25 Allergies Allergy/AdvReac Type Severity Reaction Status Date / Time Penicillins [PENICILLINS] Allergy Unknown RASH Verified 01/09/25 08:53 tramadol [From ULTRAM] Allergy Unknown RASH Verified 01/09/25 08:53 trazodone [TRAZODONE] Allergy Unknown PRIAPISM Verified 01/09/25 08:53 risperidone [RISPERIDONE] AdvReac Severe dizzy, EPS Verified 01/09/25 08:53 Review of Systems Review of Systems: Patient unable to provide detailed review of system secondary to weakness PMFSH Past Medical History Attestation statement: The following information was validated with the patient. Medical History End stage kidney disease ESRD needing dialysis Secondary hyperparathyroidism (of renal origin) Anemia in chronic kidney disease DONIS (acute kidney injury) End stage renal disease on dialysis Diabetes Kidney failure HTN (hypertension) Social History Social History Household Members: Unknown / Unable to assess Housing: Unknown / Unable to assess Are you a primary healthcare insurance sales agent to a significant other at home: No Do you presently have visiting nurse or other home services: No Alcohol intake: never Comment: Pt turning off own bed alarm Kasie Pizarro [employer] aware provide with re-educa Patient Tobacco Use Status: Never used Tobacco Cigarette Packs Per Day: 0 Cigarettes Per Day: 0.0 Years Smoked: NA Smoked in Last 30 Days: No e-Cigarette/Vaping Use: Never Used Second Hand Smoke Exposure: No Use of substances other than those prescribed or required for medical reasons: No Advance Directives: Yes Advance Directives on File: Yes Advance Directives Date on File: 09/07/23 Do you have a plan to hurt others: No Plan service: No Physical Exam Vital Signs: Vital Signs: Last Vital Signs Temp 99.6 F 01/09/25 13:12 Pulse 66 01/09/25 13:12 Resp 18 01/09/25 13:12 BP 107/68 01/09/25 13:12 Pulse Ox 96 01/09/25 13:12 O2 Del Method Room Air 01/09/25 13:12 O2 Flow Rate 2 01/09/25 11:24 BMI result Body Mass Index 24.6 Appearance: Very lethargic very slow to answer questions Eyes: Pupils equal, round and reactive to light. ENT: Pharynx normal. Neck: Normal inspection. Neck supple. No lymph nodes noted. No crepitus CVS: Normal heart rate and rhythm. Pulses normal. Normal S1 and S2 Respiratory: No respiratory distress. Breath sounds normal. No Wheezing. No rales Abdomen: Soft and nontender. No rigidity. No distention. good BS x4 Skin: Skin warm and dry. Normal skin color. Normal skin turgor. Extremities: No lower extremity edema. Neurovascular intact to all extremities. No Lacerations. No Rash Neuro: Oriented X self. No motor deficit. No sensory deficit. Moving all extermities. Medications Administered Generic Name Dose Route Start Last Admin Trade Name Freq PRN Reason Stop Dose Admin Heparin Sodium (Porcine) 5,000 unit 01/09/25 12:15 01/09/25 12:33 Heparin Sodium,Porcine 5,000 Unit/Ml Vial SUBCUT 5,000 unit Q12H FRANCINE Administration Doxycycline Hyclate 100 mg/ 250 mls @ 166.67 mls/hr 01/09/25 13:00 01/09/25 13:47 Sodium Chloride IV 166.67 mls/hr Q12H FRANCINE Administration Oseltamivir Phosphate 30 mg 01/09/25 12:30 01/09/25 12:33 Oseltamivir Phosphate 30 Mg Capsule PO 01/17/25 12:31 30 mg Q48H FRANCINE Administration Discontinued Medications Generic Name Dose Route Start Last Admin Trade Name Freq PRN Reason Stop Dose Admin Acetaminophen 650 mg 01/09/25 09:17 01/09/25 10:01 Acetaminophen Supp 650 Mg Supp.Rect MD 01/09/25 09:18 650 mg ONCE ONE Administration Dextrose 25 gm 01/09/25 11:31 01/09/25 11:48 Dextrose 50 % 25 Gm/50 Ml Syringe IVPUSH 01/09/25 11:32 25 gm ONCE ONE Administration Hydromorphone HCl 0.5 mg 01/09/25 12:24 01/09/25 12:33 Hydromorphone Hcl 0.5 Mg/0.5 Ml Syringe IVPUSH 01/09/25 12:25 0.5 mg ONCE ONE Administration Protocol Cefepime HCl 1 gm/ Sodium 50 mls @ 100 mls/hr 01/09/25 09:19 01/09/25 10:23 Chloride IV 01/09/25 09:48 Infused ONCE ONE Infusion Vancomycin HCl 1,000 mg/ 535 mls @ 267.5 mls/hr 01/09/25 09:45 01/09/25 12:03 Vancomycin HCl 750 mg/ Sodium IV 01/09/25 11:44 Infused Chloride ONCE ONE Infusion Calcium Gluconate 1 gm in 50 mls @ 50 mls/hr 01/09/25 11:30 01/09/25 12:48 Calcium Gluconate IV 01/09/25 12:29 Infused ONCE ONE Infusion Insulin Human Regular 5 unit 01/09/25 11:31 01/09/25 11:47 Insulin Regular, Human 100 Unit/Ml 10 Ml Vial IVPUSH 01/09/25 11:32 5 unit ONCE ONE Administration Sodium Bicarbonate 50 meq 01/09/25 11:30 01/09/25 11:48 Sodium Bicarbonate 8.4% 50 Meq/50 Ml Syringe IVPUSH 01/09/25 11:31 50 meq ONCE ONE Administration Sodium Zirconium Cyclosilicate 10 gm 01/09/25 11:54 01/09/25 12:33 Sodium Zirconium Cyclosilicate 10 Gm Powd.Pack PO 01/09/25 11:55 10 gm ONCE ONE Administration Medical Decision Making Medical Decision Making MDM Narrative: Patient presented with change in mental status confusion was seen on the at that time patient was diagnosed with influenza. Since then patient became more lethargic. Baseline is on dialysis Thursday got an extra session on Thursday. Weaker than normal. Very tired. My interpretation of patient's chest x-ray showed bilateral infiltrate. Patient was noted to have a fever 102 here. The influenza has been ongoing for greater than 3 days. Cultures obtained antibiotic was started patient was given cefepime for healthcare acquired pneumonia. Patient's potassium showed 5.9. My interpretation of patient's EKG showed a sinus rhythm heart rate was 90 MD QRS QTC normal there is specific T-wave spiking noted. We did treat the patient aggressively for the hyperkalemia including sodium bicarb, glucose, insulin, calcium gluconate. Nephrology team consulted hospitalist team consulted will get patient admitted for further evaluation temperature came down. CT scan of the chest pending. CT scan of the head pending. Currently awaiting admission. Patient was not given the 30 cc/kilos IV fluids because he is a dialysis patient. CT scan of the chest per Radiology showed multilobar pneumonia. CT scan of the head was grossly negative by my interpretation I reviewed radiology's reading which was the same. Antibiotic was given. Patient to be admitted. Repeat focal exam for sepsis was done patient's symptoms improving. Patient did not get 30 cc/kilos because he has end-stage renal disease. Patient case also consulted by the nephrology team will get dialysis upstairs. Differential Diagnosis Differential Diagnoses: The differential diagnosis associated with the presentation includes Hyperkalemia, renal insufficiency, end-stage renal disease, pneumonia, influenza Admission/Observation Consideration of admission/observation: Escalation of care including admission/observation considered Consult Healthcare Provider Management of the patient was discussed with: Hospitalist and Shipping Weigher (Nephrology) Lab Data MDM Lab Attestation statement: I reviewed the patient's lab results. 01/09/25 09:49 01/09/25 09:49 Labs: Lab Results 01/09/25 01/09/25 01/09/25 Range/Units 09:49 10:02 10:50 WBC 9.6 (4.8-10.8) X10*3/uL RBC 3.73 L (4.60-5.80) X10*6/uL Hgb 11.4 L (14.0-18.0) g/dl Hct 33.1 L (42.0-52.0) % MCV 88.7 (80.0-98.0) fL MCH 30.6 (27.0-33.0) pg MCHC 34.4 (31.0-36.0) g/dl RDW 15.0 (11.0-16.0) % Plt Count 144 L (160-400) X10*3/uL MPV 10.3 (9.4-12.4) fL Immature Gran % (Auto) 0.4 (0.0-0.4) % Neut % (Auto) 78.0 H (45-73) % Lymph % (Auto) 8.4 L (20-40) % Ponce % (Auto) 12.8 H (2-11) % Eos % (Auto) 0.0 (0-4) % Baso % (Auto) 0.4 (0-2) % Lymph # (Auto) 0.8 L (1.2-4.9) X10*3/uL Ponce # (Auto) 1.2 (0.1-1.2) X10*3/uL Eos # (Auto) 0.0 (0.0-0.4) X10*3/uL Baso # (Auto) 0.0 (0.0-0.2) X10*3/uL Abs Immat Gran (auto) 0.04 H (0.00-0.03) X10*3/uL Absolute Neuts (auto) 7.5 (2.0-8.3) x10*3/uL Absolute Nucleated RBC 0.000 (0.0-0.012) X10*3/uL Nucleated RBC % (auto) 0.0 (0.0-0.2) /100WBC VBG pH 7.40 (7.32-7.43) VBG pCO2 27 mmHg VBG pO2 59 mmHg VBG HCO3 17 L (22-26) mmol/L VBG O2 Saturation 87.0 % VBG Base Excess -5.8 mmol/L Sodium 127 L (135-145) mmol/L Potassium 5.9 H (3.3-5.1) mmol/L Chloride 89 L (96-108) mmol/L Carbon Dioxide 17 L (22-29) mmol/L Anion Gap 27 H (12-20) BUN 84 H (9-16) mg/dL Creatinine 11.85 H* (0.5-1.4) mg/dL Estim Creat Clear Calc 5.3 Estimated GFR 4 POC Glucose (60-115) mg/dL Random Glucose 100 (60-115) mg/dL Lactic Acid 0.7 (0.5-2.0) mmol/L Calcium 6.7 L D (8.4-10.2) mg/dL Phosphorus 11.8 H (2.7-4.5) mg/dL Magnesium 1.8 (1.6-2.6) mg/dL Urine Color Yellow Urine Appearance Clear Urine pH 8.5 (5.0-9.0) Ur Specific Boley 1.010 (1.005-1.025) Urine Protein 300 (3+) H (Neg-Trace) mg/dL Urine Glucose (UA) 250 H (Negative) mg/dL Urine Ketones Negative (Negative) mg/dL Urine Blood Moderate (2+) H (Negative) Urine Nitrite Negative (Negative) Ur Leukocyte Esterase Negative (Negative) Urine RBC >20 H (0-2) /HPF Urine WBC 0-5 (0-5) /HPF Ur Squamous Epith Cells 0-2 (0-2) /HPF Urine Bacteria None Seen (None Seen) Hyaline Casts 0-2 (0-2) /LPF 01/09/25 Range/Units 11:39 WBC (4.8-10.8) X10*3/uL RBC (4.60-5.80) X10*6/uL Hgb (14.0-18.0) g/dl Hct (42.0-52.0) % MCV (80.0-98.0) fL MCH (27.0-33.0) pg MCHC (31.0-36.0) g/dl RDW (11.0-16.0) % Plt Count (160-400) X10*3/uL MPV (9.4-12.4) fL Immature Gran % (Auto) (0.0-0.4) % Neut % (Auto) (45-73) % Lymph % (Auto) (20-40) % Ponce % (Auto) (2-11) % Eos % (Auto) (0-4) % Baso % (Auto) (0-2) % Lymph # (Auto) (1.2-4.9) X10*3/uL Ponce # (Auto) (0.1-1.2) X10*3/uL Eos # (Auto) (0.0-0.4) X10*3/uL Baso # (Auto) (0.0-0.2) X10*3/uL Abs Immat Gran (auto) (0.00-0.03) X10*3/uL Absolute Neuts (auto) (2.0-8.3) x10*3/uL Absolute Nucleated RBC (0.0-0.012) X10*3/uL Nucleated RBC % (auto) (0.0-0.2) /100WBC VBG pH (7.32-7.43) VBG pCO2 mmHg VBG pO2 mmHg VBG HCO3 (22-26) mmol/L VBG O2 Saturation % VBG Base Excess mmol/L Sodium (135-145) mmol/L Potassium (3.3-5.1) mmol/L Chloride (96-108) mmol/L Carbon Dioxide (22-29) mmol/L Anion Gap (12-20) BUN (9-16) mg/dL Creatinine (0.5-1.4) mg/dL Estim Creat Clear Calc Estimated GFR POC Glucose 92 (60-115) mg/dL Random Glucose (60-115) mg/dL Lactic Acid (0.5-2.0) mmol/L Calcium (8.4-10.2) mg/dL Phosphorus (2.7-4.5) mg/dL Magnesium (1.6-2.6) mg/dL Urine Color Urine Appearance Urine pH (5.0-9.0) Ur Specific Boley (1.005-1.025) Urine Protein (Neg-Trace) mg/dL Urine Glucose (UA) (Negative) mg/dL Urine Ketones (Negative) mg/dL Urine Blood (Negative) Urine Nitrite (Negative) Ur Leukocyte Esterase (Negative) Urine RBC (0-2) /HPF Urine WBC (0-5) /HPF Ur Squamous Epith Cells (0-2) /HPF Urine Bacteria (None Seen) Hyaline Casts (0-2) /LPF Independent Interpretation I performed an independent interpretation of an: EKG (My interpretation patient's EKG as above) and Plain X-Ray (My interpretation patient's chest x-ray showed bilateral infiltrate) Radiology Impression Discussion of test interpretation with radiology: I have reviewed the radiologist's reading. Independent Historian Clinical information obtained from an independent historian. History obtained from or confirmed by: Other (Additional history obtained through family) External Record Review External record reviewed: Inpatient record Chronic Conditions End-stage renal disease, hypertension, hypercholesterolemia, diabetes Social Determinants Patient?s care significantly limited by Social Determinants of Health including: Problems related to primary support group Critical Care Time Critical Care Time Critical Care Time: Yes Total Critical Care Time: 40 Attestation: I have personally provided 40 minutes of critical care time exclusive of time spent on separately billable procedures. ?Time includes review of lab data, radiology results, discussion with consultants, and monitoring for potential decompensation. ?Interventions were performed as documented above Discharge Plan Discharge Clinical Impression: Pneumonia, Influenza, Acute hyperkalemia Patient Disposition: Admitted As Inpatient
--- NOTE | 2025-01-09 09:00 | ECG_ITS ---
Test Reason : flu Blood Pressure : */* mmHG Vent. Rate : 71 BPM Atrial Rate : 71 BPM P-R Int : 162 ms QRS Dur : 84 ms QT Int : 432 ms P-R-T Axes : 57 -32 55 degrees QTcB Int : 469 ms Normal sinus rhythm Possible Left atrial enlargement Left axis deviation Abnormal ECG When compared with ECG of 07-Jan-2025 09:41, QRS axis Shifted left Referred By: Yun Panchal Electronically Signed By: LEVI EVANS MD
--- NOTE | 2025-01-09 09:50 | PC.NURSE ---
biba from home c/o increased AMS/increased weakness/flu like sx x 2 days. OUTBOARD SYSTEM OPERATOR reports slow speech/confused/warm to the touch. flu + 01/07. CKD - dialysis on /thursday/thursday per OUTBOARD SYSTEM OPERATOR. upon ED arrival - pt responsive to verbal stimuli. alert and oriented to self and location but unable to state the year or why he presents to the ED. pt unable to follow commands d/t increased weakness. pt moved from 13H to ED12/placed on the gambling monitor displaying nsr. per OUTBOARD SYSTEM OPERATOR, pt was unable to attend dialysis today d/t increased sx. per previous MD notes/previous visits, pt goes to dialysis M/W/F. +bruit/thrill noted to [facility]. limited access noted to [facility] when attempting to place IV/draw labs. 18g EJ placed to left side of neck by MD - labs/both sets of cultures obtained from IV access by MD. both sets of cultures drawn from same site per MD order. pt noted to desat to 88% on RA. pt repositioned upright without change. no sob/wob noted. respirations even/unlabored. pt placed on 2L via NC w/ good effect - SPO2 @ 98%. plan of care ongoing. call latham placed within reach.
[2025-01-09] MEDS: cefEPime HCl 1 GM in 0.9 % Sodium Chloride 50 ML IV (09:53)
[2025-01-09 10:01] LABS: MANUAL DIFF FLAG NO
[2025-01-09] MEDS: Acetaminophen Supp 650 MG SUPP.RECT PR (10:01)
[2025-01-09] MEDS: vancomycin HCL 1,000 MG, vancomycin HCL 750 MG in 0.9 % Sodium Chloride 500 ML 267.5 MG IV (10:03)
[2025-01-09 10:04] LABS: Basophils Percent Auto 0.4 % (0-2); Hematocrit 33.1 % (42.0-52.0); Hemoglobin 11.4 g/dl (14.0-18.0); Imm Gran Abs Auto 0.04 X10*3/uL (0.00-0.03); Imm Gran Pct Auto 0.4 % (0.0-0.4); Lymphocytes Absolute Auto 0.8 X10*3/uL (1.2-4.9); Lymphocytes Percent Auto 8.4 % (20-40); Mean Corpuscular HGB Conc 34.4 g/dl (31.0-36.0); Mean Corpuscular Hemoglobin 30.6 pg (27.0-33.0); Mean Corpuscular Volume 88.7 fL (80.0-98.0); Mean Platelet Volume 10.3 fL (9.4-12.4); Monocytes Absolute Auto 1.2 X10*3/uL (0.1-1.2); Monocytes Percent Auto 12.8 % (2-11); Neutrophils Absolute Auto 7.5 x10*3/uL (2.0-8.3); Platelet Count 144 X10*3/uL (160-400); Red Blood Count 3.73 X10*6/uL (4.60-5.80); White Blood Count 9.6 X10*3/uL (4.8-10.8)
[2025-01-09 10:06] LABS: Venous Blood Gas Refer to POC result
[2025-01-09 10:07] LABS: VBG Base Excess -5.8 mmol/L; VBG HCO3 17 mmol/L (22-26); VBG pCO2 27 mmHg; VBG pO2 59 mmHg
[2025-01-09 10:20] LABS: Lactic Acid 0.7 mmol/L (0.5-2.0)
[2025-01-09 10:29] LABS: Anion Gap 27 (12-20); Blood Urea Nitrogen 84 mg/dL (9-16); Calcium 6.7 mg/dL (8.4-10.2); Carbon Dioxide 17 mmol/L (22-29); Chloride 89 mmol/L (96-108); Creatinine Clr Calc Pharmacy 5.3; Estimated Glomerular Filt Rate 4; Glucose Random 100 mg/dL (60-115); Magnesium 1.8 mg/dL (1.6-2.6); Phosphorus 11.8 mg/dL (2.7-4.5); Potassium 5.9 mmol/L (3.3-5.1); Sodium 127 mmol/L (135-145)
--- NOTE | 2025-01-09 10:45 | PC.NURSE ---
straight catheterization performed. 150ml of clear/pale yellow urine noted immediately post output. specimen obtained/sent to lab. pt tolerated insertion well. pt remains responsive to verbal stimuli but seemingly weak/disoriented. answers questions appropriately aside from stating what year it is. pt follows commands but delay d/t increased weakness. vital signs otherwise stable/up to date. nsr on the vp analysis. pt remains on 2L via NC - no sob/wob noted. respirations even/unlabored. plan of care ongoing. call latham placed within reach.
[2025-01-09 11:03] LABS: Appearance Urine Clear; Color Urine Yellow; Glucose Urine UA 250 mg/dL (Negative); Leukocyte Esterase Urine Negative (Negative); Nitrite Urine Negative (Negative); PH 8.5 (5.0-9.0); UMIC TRIGGER UACC YES; Urine Blood Moderate (2+) (Negative); Urine Ketones Negative (Negative); Urine Protein 300 (3+) mg/dL (Neg-Trace)
[2025-01-09 11:43] LABS: Glucose, Whole Blood 92 mg/dL (60-115)
[2025-01-09] MEDS: Insulin Regular, Human 100 UNIT/ML 10 ML VIAL IVPUSH (11:47)
[2025-01-09] MEDS: Dextrose 50 % 25 GM/50 ML SYRINGE IVPUSH (11:48)
[2025-01-09] MEDS: Sodium Bicarbonate 8.4% 50 MEQ/50 ML SYRINGE IVPUSH (11:48)
[2025-01-09] MEDS: Calcium Gluconate/NaCl,Iso-Osm 1 GM/50 ML PLAST..BAG IV (11:48)
--- NOTE | 2025-01-09 11:48 | PM.IMHP ---
History of Present Illness Date of Service: 01/09/25 Attending physician on admission: Chandler Garcia Chief Complaint: weak/tired, missed HD 70 year old male with history of insulin-dependent type 2 diabetes, ESRD on HD M/W/F, anemia of chronic disease, secondary hyperparathyroidism, hypertension presented to the ED by ambulance due to altered mental status, weakness following diagnosis of influenza 2 days ago. He states he always feels weak and tired ongoing for several years. Per his PCI, he has had slow speech, confusion, and has been warned to the touch. The patient is a limited historian and is very weak on exam. He is oriented to self and place. He states that he has had a cough that is occasionally productive ongoing for the last few days. He denies any fevers or chills. No known sick contacts. Denies shortness of breath, congestion, abdominal pain, nausea, vomiting, diarrhea, palpitations, or chest pain. In the ED, has been febrile to 102.5 and hypoxic to 88% placed on 2 L supplemental O2. He has been weaned back to room air now satting 94%. There is no leukocytosis. Creatinine 11.85, BUN 84. Sodium 127, potassium 5.9, chloride 89, phosphorus 11.8, CO2 17 with anion gap 27. VBG with pH 7.40, pCO2 27, bicarb 17. Urinalysis not indicative of infection. Chest x-ray shows cardiomegaly with multifocal patchy airspace opacities which may represent pneumonia versus pulmonary edema. In the ED, has received cefepime, vancomycin, bicarb, insulin, calcium gluconate. Review of Systems Review of Systems: Yes all other systems are reviewed and are negative [facility] Medical History End stage kidney disease ESRD needing dialysis Secondary hyperparathyroidism (of renal origin) Anemia in chronic kidney disease DONIS (acute kidney injury) End stage renal disease on dialysis Diabetes Kidney failure HTN (hypertension) Social History Household Members: Unknown / Unable to assess Housing: Unknown / Unable to assess Are you a primary post acute care nurse practitioner to a significant other at home: No Do you presently have visiting nurse or other home services: No Alcohol intake: never Comment: Pt turning off own bed alarm J. Juarez [employer] UT[employer] WORKER aware provide with re-educa Patient Tobacco Use Status: Never used Tobacco Cigarette Packs Per Day: 0 Cigarettes Per Day: 0.0 Years Smoked: NA Smoked in Last 30 Days: No e-Cigarette/Vaping Use: Never Used Second Hand Smoke Exposure: No Use of substances other than those prescribed or required for medical reasons: No Advance Directives: Yes Advance Directives on File: Yes Advance Directives Date on File: 09/07/23 Do you have a plan to hurt others: No Plan service: No Meds Allergies Allergy/AdvReac Type Severity Reaction Status Date / Time Penicillins [PENICILLINS] Allergy Unknown RASH Verified 01/09/25 08:53 tramadol [From ULTRAM] Allergy Unknown RASH Verified 01/09/25 08:53 trazodone [TRAZODONE] Allergy Unknown PRIAPISM Verified 01/09/25 08:53 risperidone [RISPERIDONE] AdvReac Severe dizzy, EPS Verified 01/09/25 08:53 Active Medications: Current Medications Calcium Gluconate (Calcium Gluconate) 1 gm in 50 mls @ 50 mls/hr IV ONCE ONE Stop: 01/09/25 12:29 Home Medications ?Medication ?Instructions ?Recorded ?Confirmed ?Last Taken ?Type atenolol 100 mg tablet 1 tab PO DAILY 07/11/21 11/02/24 10/30/24 09:00 History blood sugar diagnostic (FreeStyle 07/11/21 10/30/24 10/30/24 09:00 History Lite Strips) dextroamphetamine-amphetamine 20 1 tab PO TID@0800,1400,1800 07/11/21 11/02/24 10/30/24 09:00 History mg tablet levothyroxine 137 mcg tablet 1 tab PO DAILY@0600 07/11/21 11/02/24 10/30/24 09:00 History pen needle, diabetic 31 gauge x 07/11/21 10/30/24 10/30/24 09:00 History 5/16 (BD Ultra-Fine Short Pen Needle) amlodipine 5 mg tablet 5 mg PO BID 09/03/23 11/02/24 10/30/24 09:00 History albuterol sulfate 90 mcg/actuation 2 puff inhalation Q6H PRN 10/29/23 11/02/24 4 Days Ago History aerosol inhaler (Ventolin HFA) Shortness Of Breath ~10/29/24 atorvastatin 40 mg tablet 40 mg PO DAILY 02/22/24 11/02/24 10/30/24 09:00 History hydromorphone 4 mg tablet 4 mg PO Q3H PRN Severe Pain (Scale 06/19/24 11/02/24 4 Days Ago History Score 7-10) ~10/29/24 sodium zirconium cyclosilicate 10 10 g PO SUTUTHSA@0900 06/19/24 11/02/24 10/30/24 09:00 History gram oral powder packet (Lokelma) alprazolam 0.5 mg tablet 0.5 mg PO DAILY PRN anxiety attack 10/30/24 11/02/24 10/30/24 09:00 History alprazolam 2 mg tablet 2 mg PO BID 10/30/24 11/02/24 10/30/24 09:00 History insulin lispro 100 unit/mL 1 sliding scale dose subcut TIDAC 10/30/24 11/02/24 10/30/24 09:00 History subcutaneous pen (Humalog KwikPen (U-100) Insulin) sevelamer carbonate 800 mg tablet 800 mg PO DAILY PRN snack 10/30/24 11/02/24 4 Days Ago History ~10/29/24 sevelamer carbonate 800 mg tablet 800 mg PO TIDWM 10/30/24 11/02/24 10/30/24 09:00 History vitamin D3 25 mcg (1,000 unit)-vit 1 tab PO SUTUTHSA@0900 11/02/24 11/02/24 4 Days Ago History K2 90 mcg disintegrating tablet ~10/29/24 losartan 100 mg tablet 100 mg PO DAILY 01/09/25 Unknown History Physical Exam Vital Signs and Narrative: Vital Signs: Last Vital Signs Temp 102.5 F H 01/09/25 09:17 Pulse 63 01/09/25 11:24 Resp 18 01/09/25 10:44 BP 135/67 01/09/25 11:24 Pulse Ox 98 01/09/25 11:24 O2 Del Method Nasal Cannula 01/09/25 11:24 O2 Flow Rate 2 01/09/25 11:24 BMI result Body Mass Index 24.6 Constitutional - Awake, weak appearing, No apparent distress Eyes - PERRLA, EOMI Cardiovascular - S1S2, RRR, No edema Respiratory - Normal lung expansion, Normal respiratory effort, No respiratory distress, CTA bilaterally Gastrointestinal - NT / ND; +BS; No rebound or guarding Extremities - no calf tenderness bilaterally, no swelling Skin - Warm/clammy Neurological - Alert & oriented x2 disoriented to time, CN II-XII in tact, 4/5 strength BUE and BLE Results Labs 01/09/25 09:49 01/09/25 09:49 Labs: Laboratory Results - last 24 hr 01/09/25 01/09/25 01/09/25 09:49 10:02 10:50 MCV 88.7 MCH 30.6 MCHC 34.4 RDW 15.0 Plt Count 144 L MPV 10.3 Immature Gran % (Auto) 0.4 Neut % (Auto) 78.0 H Lymph % (Auto) 8.4 L [place] % (Auto) 12.8 H Eos % (Auto) 0.0 Baso % (Auto) 0.4 Lymph # (Auto) 0.8 L [place] # (Auto) 1.2 Eos # (Auto) 0.0 Baso # (Auto) 0.0 Abs Immat Gran (auto) 0.04 H Absolute Neuts (auto) 7.5 Absolute Nucleated RBC 0.000 Nucleated RBC % (auto) 0.0 VBG pH 7.40 VBG pCO2 27 VBG pO2 59 VBG HCO3 17 L VBG O2 Saturation 87.0 VBG Base Excess -5.8 Anion Gap 27 H Estim Creat Clear Calc 5.3 Estimated GFR 4 POC Glucose Random Glucose 100 Lactic Acid 0.7 Calcium 6.7 L D Phosphorus 11.8 H Magnesium 1.8 Urine Color Yellow Urine Appearance Clear Urine pH 8.5 Ur Specific [place] 1.010 Urine Protein 300 (3+) H Urine Glucose (UA) 250 H Urine Ketones Negative Urine Blood Moderate (2+) H Urine Nitrite Negative Ur Leukocyte Esterase Negative 01/09/25 11:39 MCV MCH MCHC RDW Plt Count MPV Immature Gran % (Auto) Neut % (Auto) Lymph % (Auto) [place] % (Auto) Eos % (Auto) Baso % (Auto) Lymph # (Auto) [place] # (Auto) Eos # (Auto) Baso # (Auto) Abs Immat Gran (auto) Absolute Neuts (auto) Absolute Nucleated RBC Nucleated RBC % (auto) VBG pH VBG pCO2 VBG pO2 VBG HCO3 VBG O2 Saturation VBG Base Excess Anion Gap Estim Creat Clear Calc Estimated GFR POC Glucose 92 Random Glucose Lactic Acid Calcium Phosphorus Magnesium Urine Color Urine Appearance Urine pH Ur Specific [place] Urine Protein Urine Glucose (UA) Urine Ketones Urine Blood Urine Nitrite Ur Leukocyte Esterase Imaging Radiologist's Impressions: Impressions Chest X-Ray 01/09/25 09:20 IMPRESSION: Cardiomegaly. Multifocal patchy airspace opacities which may represent pneumonia or pulmonary edema. Electronically signed by: Ferdinand Love MD 01/09/2025 09:28 AM EDT RP Assessment and Plan (1) Acute hyperkalemia: Status: Acute (2) Influenza: Status: Acute (3) Pneumonia: Status: Acute (4) Acute metabolic encephalopathy: Status: Acute Plan 70 year old male with history of insulin-dependent type 2 diabetes, ESRD on HD M/W/F, anemia of chronic disease, secondary hyperparathyroidism, hypertension admitted for further management of acute hypoxemic respiratory failure 2/2 influenze and pneumonia Acute hypoxemic repiratory failure 2/2 influenza (dx 01/07) and multifocal pneumonia CXR shows cardiomegaly as well as multifocal patchy airspace opacities possibly representing a pneumonia or pulmonary edema IV ceftriaxone and doxycycline (01/09) renally dosed tamiflu (01/09) Continue supplemental O2, wean per protocol duonebs q4h for wheezing sputum culture and MRSA nasal swab pending Acute metabolic encephalopathy Related to above Monitor mentation ESRD missed HD MWF creat 11.85, BUN 84 Nephrology consult follow renal function/lytes Continue phosphorus binders Hyperkalemia due to missed HD Given insulin, d50, bicarb, and calcium gluc in ed Nephrology consult follow lytes Acute hyponatremia hypoosmolar due to volume overload from missed hd nephrology consult fluid restrictions Insulin-dependent type 2 diabetes Diabetic diet, POC glucose Sliding scale insulin Hypothyroidism Levothyroxine Hypertension Amlodipine, atenolol, losartan Mood disorder Continue home medications Chronic pain Continue home hydromorphone Anemia of chronic disease H/H baseline DVT prophylaxis-heparin Full code Patient requires inpatient stay at least 2 midnights for missed hemodialysis in the setting of weakness from influenza and encephalopathy Quality Stroke Does the patient have a stroke diagnosis?: No VTE Prior VTE?: No VTE Risk Level:: Medical - moderate - high VTE Device Contraindication: Treatment Not Indicated VTE Drug Contraindication: N/A - Med Ordered
[2025-01-09 11:55] LABS: Bacteria Urine None Seen (None Seen); Hyaline Casts Urine 0-2 /LPF (0-2); RBC Urine >20 /HPF (0-2); Squamous Epithelial Cell Urine 0-2 /HPF (0-2); WBC Urine 0-5 /HPF (0-5)
--- NOTE | 2025-01-09 12:00 | PC.NURSE ---
pt passed nursing swallow evaluation w/o difficulty.
--- NOTE | 2025-01-09 12:02 | PC.NURSE ---
pt notified/aware of plan of care in regards to being admitting. hospitalist bedside. pt placed back on RA (baseline) d/t pt maintaining SPO2 @ 93%. vitals otherwise stable/up to date. nsr on the cardiac nurse practitioner. pt noted to be hyperkalemic s/p blood draw. POC prior to medication administration displaying 92 mg/dL. medication then administered per provider order. witnessed w/ 2nd RN. will reassess POC shortly. pt otherwise remains in no apparent distress. no sob/wob noted. respirations even/unlabored. plan of care ongoing. call [facility] placed within reach.
[2025-01-09] MEDS: HYDROmorphone HCl 0.5 MG/0.5 ML SYRINGE IVPUSH (12:33)
[2025-01-09] MEDS: Oseltamivir Phosphate 30 MG CAPSULE PO (12:33)
[2025-01-09] MEDS: Heparin Sodium,Porcine 5,000 UNIT/ML VIAL 5000 UNIT SUBCUT (12:33)
[2025-01-09] MEDS: Sodium Zirconium Cyclosilicate 10 GM POWD.PACK PO (12:33)
--- NOTE | 2025-01-09 13:43 | PC.NURSE ---
bed coe utilized - 1 soft large brown BM noted to bed coe. pericare performed. pt turned/repositioned to comfort.
[2025-01-09 13:45] LABS: Glucose, Whole Blood 124 mg/dL (60-115)
[2025-01-09] MEDS: Doxycycline Hyclate 100 MG in 0.9 % Sodium Chloride 250 ML 166.67 MG IV (13:47)
--- NOTE | 2025-01-09 14:33 | PHA.MEDREC ---
Addendum entered by Deisi Gloria RPh 01/09/25 15:06: Reviewed by [facility]. Pt takes sevelamer 1600mg TID with meals. Original Note: Pharmacy Consult ? Medication Reconciliation Pharmacy has completed the medication reconciliation. Spoke with patient and his baseline was a bit scatter brained and was not able to confirm his medications right now. I called and spoke with patients and she confirmed her husbands medications. The confirmed the patient is not taking the Albuterol inhalers and stated she has 3-4 unopened boxes at home. She confirmed also the patient has Humalog at home and uses it only as needed when his blood sugars spikes but does not use that much, I asked the where they fill the Humalog and she stated [facility]. I called [facility] and they state they have no claims on filling [facility]og at any [facility] facilities in at least[facility]. I called [facility] too since that was listed and they stated they last filled Humalog for the patient back 09/06/2023. The confirmed her takes Lokelma and Vitamin D3-K2 on non dialysis days (Sundays, Thursday, and Saturdays). She confirmed her last took all his medications Saturday 01/06.
[2025-01-09] MEDS: Albuterol/Iprat 2.5/0.5MG 3 ML AMPUL.NEB INHALE (14:50)
--- NOTE | 2025-01-09 16:32 | MHC.EDTECH ---
This pct assumed care of Patient at 1500 ,vitals taken ,MRSA swab collected and sent to lab ,Patient belongings list done .blood sugar check .
[2025-01-09 17:02] LABS: Glucose, Whole Blood 80 mg/dL (60-115)
[2025-01-09 21:30] LABS: Glucose, Whole Blood 120 mg/dL (60-115)
[2025-01-09] MEDS: amLODIPine Besylate 5 MG TABLET PO (22:16)
[2025-01-09] MEDS: ALPRAZolam 0.5 MG TABLET 2 MG PO (22:16)
--- NOTE | 2025-01-09 23:10 | PC.NURSE ---
Dialysis nurse called and gave me vitals, did not give me report except notifying of his hypertension, Rn reported report was given to prior nurse, pt arrive covered in stool from head to toe, Ground Crewman notified to see pt condition. Completed bed change, chepe care, DR. Bobby notified if he wanted repeat labs due to potassium being elevated, no repeat lab until am, pt poc was 102, no coverage, medicated per dec.
[2025-01-10] VITALS (10 sets, daily range): BP systolic 112–134; BP diastolic 56–65; PULSE 61–105; RESP 16–18; TEMP 36.8–37.8; O2SAT 90–98
[2025-01-10] MEDS: Doxycycline Hyclate 100 MG in 0.9 % Sodium Chloride 250 ML 166.67 MG IV ×2 (01:02→13:02)
[2025-01-10] MEDS: Heparin Sodium,Porcine 5,000 UNIT/ML VIAL 5000 UNIT SUBCUT ×2 (01:03→11:45)
[2025-01-10] MEDS: 0.9 % Sodium Chloride Flush 3 ML SYRINGE IVFLUSH ×4 (01:03→19:54)
--- NOTE | 2025-01-10 01:15 | PC.NURSE ---
medicated per mar, provided ice water for pt.
[2025-01-10] MEDS: HYDROmorphone HCl 2 MG TABLET 4 MG PO ×4 (01:34→19:53)
--- NOTE | 2025-01-10 01:43 | PC.NURSE ---
medicated for pain management.
[2025-01-10] MEDS: Albuterol/Iprat 2.5/0.5MG 3 ML AMPUL.NEB INHALE ×4 (06:36→19:46)
--- NOTE | 2025-01-10 07:10 | HO.PM.IMPN ---
Subjective Subjective Date of Service: 01/10/25 Interval History: f/u on acute chypoxic resp failure d/t influenza feels better, still on O2 and having diarrhea Physical Exam Vital Signs: Vital Signs: Last Vital Signs Temp 98.3 F 01/10/25 06:12 Pulse 74 01/10/25 06:37 Resp 16 01/10/25 06:37 BP 121/64 01/10/25 06:12 Pulse Ox 95 01/10/25 06:12 O2 Del Method Room Air 01/10/25 06:12 O2 Flow Rate 2 01/10/25 00:46 BMI result Body Mass Index 24.6 Const: Other: General: AO X 3, no acute distress Resp: CTA bilateral CVS: S1,S2,RRR GI: +BS, NT, no distention Skin: No rash Neuro: motor grossly intact Psych: appropriate affect Objective Data Active Medications Acetaminophen (Acetaminophen 325 Mg Tablet) 650 mg PO Q6H PRN PRN Reason: Pain, Mild 1-3,fever,headache Albuterol/Ipratropium (Albuterol/Iprat 2.5/0.5mg 3 Ml Ampul.Neb) 3 ml INHALE RQ4H WHILE AWAKE [facility] Last Admin: 01/10/25 06:36 Dose: 3 ml Documented By: RHONDA Alprazolam (Alprazolam 0.5 Mg Tablet) 0.5 mg PO DAILY PRN PRN Reason: anxiety attack Alprazolam (Alprazolam 0.5 Mg Tablet) 2 mg PO BID [facility] Last Admin: 01/09/25 22:16 Dose: 2 mg Documented By: MAYA Amlodipine Besylate (Amlodipine Besylate 5 Mg Tablet) 5 mg PO BID [facility]; Protocol Last Admin: 01/09/25 22:16 Dose: 5 mg Documented By: MAYA Amphetamine/Dextroamphetamine (Amphetamine Mixed Salts 20 Mg Tablet) 20 mg PO TID@0800,1400,1800 [facility] Atenolol (Atenolol 100 Mg Tablet) 100 mg PO DAILY [facility]; Protocol Atorvastatin Calcium (Atorvastatin Calcium 40 Mg Tablet) 40 mg PO DAILY [facility] Calcium Carbonate (Calcium Carbonate 750 Mg Tab.Chew) 750 mg PO Q4H PRN PRN Reason: Heartburn Ceftriaxone Sodium (Ceftriaxone Sodium 1 Gm Vial) 1 gm IVPUSH Q24H [facility] Dextrose (Dextrose 50 % 25 Gm/50 Ml Syringe) 25 gm IVPUSH Q15M PRN; Protocol PRN Reason: per Hypoglycemia Standing Ord. Glucose (Glucose Gel 15 Gm Gel..Gram.) 15 gm PO Q15M PRN; Protocol PRN Reason: per Hypoglycemia Standing Ord. Heparin Sodium (Porcine) (Heparin Sodium,Porcine 5,000 Unit/Ml Vial) 5,000 unit SUBCUT Q12H [facility] Last Admin: 01/10/25 01:03 Dose: 5,000 unit Documented By: MAYA Hydromorphone HCl (Hydromorphone Hcl 2 Mg Tablet) 4 mg PO Q3H PRN PRN Reason: Severe Pain (Scale Score 7-10) Last Admin: 01/10/25 01:34 Dose: 4 mg Documented By: MAYA Doxycycline Hyclate 100 mg/ (Sodium Chloride) 250 mls @ 166.67 mls/hr IV Q12H [facility] Last Infusion: 01/10/25 02:41 Dose: Infused Documented By: MAYA Insulin Human Lispro (Insulin Lispro 100 Unit/Ml 3 Ml Vial) 0 unit SUBCUT QIDACHS [facility]; Protocol Last Admin: 01/09/25 22:22 Dose: Not Given Documented By: MAYA Non-Admin Reason: See Note Levothyroxine Sodium 112 mcg/ (Levothyroxine Sodium 25 mcg) 137 mcg PO DAILY@0600 [facility] Losartan Potassium (Losartan Potassium 50 Mg Tablet) 100 mg PO DAILY [facility]; Protocol Magnesium Hydroxide (Milk Of Magnesia 30 Ml Oral.Susp) 30 ml PO DAILY PRN PRN Reason: Constipation Melatonin (Melatonin 3 Mg Tablet) 6 mg PO BEDTIME PRN PRN Reason: Insomnia Oseltamivir Phosphate (Oseltamivir Phosphate 30 Mg Capsule) 30 mg PO Q48H [facility] Stop: 01/17/25 12:31 Last Admin: 01/09/25 12:33 Dose: 30 mg Documented By: KORIN Sevelamer Carbonate (Sevelamer Carbonate Tablet 800 Mg Tablet) 800 mg PO DAILY PRN PRN Reason: snack Sevelamer Carbonate (Sevelamer Carbonate Tablet 800 Mg Tablet) 1,600 mg PO TIDWM [facility] Sodium Chloride (0.9 % Sodium Chloride Flush 3 Ml Syringe) 3 ml IVFLUSH QSHIFT [facility] Last Admin: 01/10/25 01:03 Dose: 3 ml Documented By: MAYA Sodium Zirconium Cyclosilicate (Sodium Zirconium Cyclosilicate 10 Gm Powd.Pack) 10 gm PO RIKY@0900 [facility] Labs 01/10/25 08:31 01/10/25 08:31 Labs: Laboratory Results - last 24 hr 01/09/25 01/09/25 01/09/25 09:49 10:02 10:50 MCV 88.7 MCH 30.6 MCHC 34.4 RDW 15.0 Plt Count 144 L MPV 10.3 Immature Gran % (Auto) 0.4 Neut % (Auto) 78.0 H Lymph % (Auto) 8.4 L [place] % (Auto) 12.8 H Eos % (Auto) 0.0 Baso % (Auto) 0.4 Lymph # (Auto) 0.8 L [place] # (Auto) 1.2 Eos # (Auto) 0.0 Baso # (Auto) 0.0 Abs Immat Gran (auto) 0.04 H Absolute Neuts (auto) 7.5 Absolute Nucleated RBC 0.000 Nucleated RBC % (auto) 0.0 VBG pH 7.40 VBG pCO2 27 VBG pO2 59 VBG HCO3 17 L VBG O2 Saturation 87.0 VBG Base Excess -5.8 Anion Gap 27 H Estim Creat Clear Calc 5.3 Estimated GFR 4 POC Glucose Random Glucose 100 Lactic Acid 0.7 Calcium 6.7 L D Phosphorus 11.8 H Magnesium 1.8 Urine Color Yellow Urine Appearance Clear Urine pH 8.5 Ur Specific [place] 1.010 Urine Protein 300 (3+) H Urine Glucose (UA) 250 H Urine Ketones Negative Urine Blood Moderate (2+) H Urine Nitrite Negative Ur Leukocyte Esterase Negative Urine RBC >20 H Urine WBC 0-5 Ur Squamous Epith Cells 0-2 Urine Bacteria None Seen Hyaline Casts 0-2 01/09/25 01/09/25 01/09/25 11:39 13:40 16:27 MCV MCH MCHC RDW Plt Count MPV Immature Gran % (Auto) Neut % (Auto) Lymph % (Auto) [place] % (Auto) Eos % (Auto) Baso % (Auto) Lymph # (Auto) [place] # (Auto) Eos # (Auto) Baso # (Auto) Abs Immat Gran (auto) Absolute Neuts (auto) Absolute Nucleated RBC Nucleated RBC % (auto) VBG pH VBG pCO2 VBG pO2 VBG HCO3 VBG O2 Saturation VBG Base Excess Anion Gap Estim Creat Clear Calc Estimated GFR POC Glucose 92 124 H 80 Random Glucose Lactic Acid Calcium Phosphorus Magnesium Urine Color Urine Appearance Urine pH Ur Specific [place] Urine Protein Urine Glucose (UA) Urine Ketones Urine Blood Urine Nitrite Ur Leukocyte Esterase Urine RBC Urine WBC Ur Squamous Epith Cells Urine Bacteria Hyaline Casts 01/09/25 21:26 MCV MCH MCHC RDW Plt Count MPV Immature Gran % (Auto) Neut % (Auto) Lymph % (Auto) [place] % (Auto) Eos % (Auto) Baso % (Auto) Lymph # (Auto) [place] # (Auto) Eos # (Auto) Baso # (Auto) Abs Immat Gran (auto) Absolute Neuts (auto) Absolute Nucleated RBC Nucleated RBC % (auto) VBG pH VBG pCO2 VBG pO2 VBG HCO3 VBG O2 Saturation VBG Base Excess Anion Gap Estim Creat Clear Calc Estimated GFR POC Glucose 120 H Random Glucose Lactic Acid Calcium Phosphorus Magnesium Urine Color Urine Appearance Urine pH Ur Specific [place] Urine Protein Urine Glucose (UA) Urine Ketones Urine Blood Urine Nitrite Ur Leukocyte Esterase Urine RBC Urine WBC Ur Squamous Epith Cells Urine Bacteria Hyaline Casts Assessment and Plan (1) Acute hyperkalemia: Status: Acute (2) Influenza: Status: Acute (3) Acute metabolic encephalopathy: Status: Acute (4) Pneumonia: Status: Acute Plan 70 year old male with history of insulin-dependent type 2 diabetes, ESRD on HD M//, anemia of chronic disease, secondary hyperparathyroidism, hypertension admitted for further management of acute hypoxemic respiratory failure 2/2 influenze and pneumonia Acute hypoxemic repiratory failure 2/2 influenza (dx 01/07) and multifocal pneumonia CXR shows cardiomegaly as well as multifocal patchy airspace opacities possibly representing a pneumonia or pulmonary edema IV ceftriaxone and doxycycline (01/09) renally dosed tamiflu (01/09) Continue supplemental O2, wean per protocol duonebs q4h for wheezing sputum culture and MRSA nasal swab pending Acute metabolic encephalopathy Related to above Monitor mentation Mild metabolic acidosis, related to ESRD, monitor Diarrhea, likely related to viral illness if persists, check gi panel and or cdif ESRD missed HD MWF creat 11.85, BUN 84 Nephrology consult follow renal function/lytes Continue phosphorus binders Hyperkalemia due to missed HD Given insulin, d50, bicarb, and calcium gluc in ed Nephrology consult follow lytes Acute hyponatremia hypoosmolar due to volume overload from missed hd nephrology consult fluid restrictions Insulin-dependent type 2 diabetes Diabetic diet, POC glucose Sliding scale insulin Hypothyroidism Levothyroxine Hypertension Amlodipine, atenolol, losartan Mood disorder Continue home medications Chronic pain Continue home hydromorphone Anemia of chronic disease H/H baseline DVT prophylaxis-heparin Full code Patient requires inpatient stay at least 2 midnights for missed hemodialysis in the setting of weakness from influenza and encephalopathy Quality Stroke Does the patient have a stroke diagnosis?: No VTE Prior VTE?: No VTE Risk Level:: Medical - moderate - high VTE Device Contraindication: Treatment Not Indicated VTE Drug Contraindication: N/A - Med Ordered
[2025-01-10 07:35] LABS: Glucose, Whole Blood 112 mg/dL (60-115)
[2025-01-10] MEDS: Sodium Zirconium Cyclosilicate 10 GM POWD.PACK PO (08:15)
[2025-01-10] MEDS: atenoloL 100 MG TABLET PO (08:16)
[2025-01-10] MEDS: Levothyroxine Sodium 112 MCG, Levothyroxine Sodium 25 MCG 137 MCG PO (08:16)
[2025-01-10] MEDS: amLODIPine Besylate 5 MG TABLET PO ×2 (08:16→19:53)
[2025-01-10] MEDS: Losartan Potassium 50 MG TABLET 100 MG PO (08:16)
[2025-01-10] MEDS: Sevelamer Carbonate Tablet 800 MG TABLET 1600 MG PO ×3 (08:16→15:56)
[2025-01-10] MEDS: Atorvastatin Calcium 40 MG TABLET PO (08:16)
[2025-01-10] MEDS: ALPRAZolam 0.5 MG TABLET 2 MG PO ×2 (08:17→19:53)
[2025-01-10] MEDS: cefTRIAXone sodium 1 GM VIAL IVPUSH (08:23)
[2025-01-10 09:10] LABS: MANUAL DIFF FLAG NO
[2025-01-10 09:14] LABS: Basophils Percent Auto 0.2 % (0-2); Hematocrit 35.8 % (42.0-52.0); Hemoglobin 12.5 g/dl (14.0-18.0); Imm Gran Abs Auto 0.03 X10*3/uL (0.00-0.03); Imm Gran Pct Auto 0.3 % (0.0-0.4); Lymphocytes Absolute Auto 1.3 X10*3/uL (1.2-4.9); Lymphocytes Percent Auto 13.1 % (20-40); Mean Corpuscular HGB Conc 34.9 g/dl (31.0-36.0); Mean Corpuscular Hemoglobin 30.6 pg (27.0-33.0); Mean Corpuscular Volume 87.7 fL (80.0-98.0); Mean Platelet Volume 10.8 fL (9.4-12.4); Monocytes Absolute Auto 0.9 X10*3/uL (0.1-1.2); Neutrophils Absolute Auto 7.7 x10*3/uL (2.0-8.3); Neutrophils Percent Auto 77.4 % (45-73); Platelet Count 141 X10*3/uL (160-400); Red Blood Count 4.08 X10*6/uL (4.60-5.80); Red Cell Distribution Width 15.2 % (11.0-16.0); White Blood Count 9.9 X10*3/uL (4.8-10.8)
[2025-01-10 09:41] LABS: Anion Gap 28 (12-20); Blood Urea Nitrogen 70 mg/dL (9-16); Calcium 7.2 mg/dL (8.4-10.2); Carbon Dioxide 20 mmol/L (22-29); Chloride 88 mmol/L (96-108); Creatinine Clr Calc Pharmacy 6.6; Estimated Glomerular Filt Rate 5; Glucose Random 113 mg/dL (60-115); Potassium 4.9 mmol/L (3.3-5.1); Sodium 131 mmol/L (135-145)
--- NOTE | 2025-01-10 09:47 | PM.CNNEP ---
History of Present Illness Reason for Consult Consult date: 01/10/25 Reason for consult: End stage renal disease Chief Complaint Chief complaint: FLU-LIKE, AMS History of Present Illness Narrative: 70 year old male with history of insulin-dependent type 2 diabetes, ESRD on HD M/W/F, anemia of chronic disease, secondary hyperparathyroidism, hypertension presented to the ED by ambulance due to altered mental status, weakness following diagnosis of influenza 2 days ago. He states he always feels weak and tired ongoing for several years. Per his PCI, he has had slow speech, confusion, and has been warned to the touch. The patient is a limited historian and is very weak on exam. He is oriented to self and place. He states that he has had a cough that is occasionally productive ongoing for the last few days. He denies any fevers or chills. No known sick contacts. Denies shortness of breath, congestion, abdominal pain, nausea, vomiting, diarrhea, palpitations, or chest pain. In the ED, has been febrile to 102.5 and hypoxic to 88% placed on 2 L supplemental O2. He has been weaned back to room air now satting 94%. There is no leukocytosis. Creatinine 11.85, BUN 84. Sodium 127, potassium 5.9, chloride 89, phosphorus 11.8, CO2 17 with anion gap 27. VBG with pH 7.40, pCO2 27, bicarb 17. Urinalysis not indicative of infection. Chest x-ray shows cardiomegaly with multifocal patchy airspace opacities which may represent pneumonia versus pulmonary edema Review of Systems Review of Systems Patient unable to provide detailed review of system secondary to weakness Yes all other systems are reviewed and are negative [facility] Past Medical History Medical History (Updated 01/10/25 @ 09:47 by Teja Quinn MD) ESRD needing dialysis End stage kidney disease Secondary hyperparathyroidism (of renal origin) Anemia in chronic kidney disease DONIS (acute kidney injury) End stage renal disease on dialysis Diabetes Kidney failure HTN (hypertension) Social History Social History Household Members: Spouse Housing: House Are you a primary care program resident to a significant other at home: No Do you presently have visiting nurse or other home services: No Alcohol intake: never Comment: Pt turning off own bed alarm Kasie Pizarro [employer]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 provide with re-educa Patient Tobacco Use Status: Never used Tobacco Cigarette Packs Per Day: 0 Cigarettes Per Day: 0.0 Years Smoked: NA e-Cigarette/Vaping Use: Never Used Second Hand Smoke Exposure: No Advance Directives Date on File: 09/07/23 service: No Meds Allergies Allergy/AdvReac Type Severity Reaction Status Date / Time Penicillins [PENICILLINS] Allergy Unknown RASH Verified 01/09/25 08:53 tramadol [From ULTRAM] Allergy Unknown RASH Verified 01/09/25 08:53 trazodone [TRAZODONE] Allergy Unknown PRIAPISM Verified 01/09/25 08:53 risperidone [RISPERIDONE] AdvReac Severe dizzy, EPS Verified 01/09/25 08:53 Active Medications: Current Medications Acetaminophen (Acetaminophen 325 Mg Tablet) 650 mg PO Q6H PRN PRN Reason: Pain, Mild 1-3,fever,headache Albuterol/Ipratropium (Albuterol/Iprat 2.5/0.5mg 3 Ml Ampul.Neb) 3 ml INHALE RQ4H WHILE AWAKE [facility] Last Admin: 01/10/25 06:36 Dose: 3 ml Alprazolam (Alprazolam 0.5 Mg Tablet) 0.5 mg PO DAILY PRN PRN Reason: anxiety attack Alprazolam (Alprazolam 0.5 Mg Tablet) 2 mg PO BID [facility] Last Admin: 01/10/25 08:17 Dose: 2 mg Amlodipine Besylate (Amlodipine Besylate 5 Mg Tablet) 5 mg PO BID [facility]; Protocol Last Admin: 01/10/25 08:16 Dose: 5 mg Amphetamine/Dextroamphetamine (Amphetamine Mixed Salts 20 Mg Tablet) 20 mg PO TID@0800,1400,1800 [facility] Atenolol (Atenolol 100 Mg Tablet) 100 mg PO DAILY [facility]; Protocol Last Admin: 01/10/25 08:16 Dose: 100 mg Atorvastatin Calcium (Atorvastatin Calcium 40 Mg Tablet) 40 mg PO DAILY [facility] Last Admin: 01/10/25 08:16 Dose: 40 mg Calcium Carbonate (Calcium Carbonate 750 Mg Tab.Chew) 750 mg PO Q4H PRN PRN Reason: Heartburn Ceftriaxone Sodium (Ceftriaxone Sodium 1 Gm Vial) 1 gm IVPUSH Q24H [facility] Last Admin: 01/10/25 08:23 Dose: 1 gm Dextrose (Dextrose 50 % 25 Gm/50 Ml Syringe) 25 gm IVPUSH Q15M PRN; Protocol PRN Reason: per Hypoglycemia Standing Ord. Glucose (Glucose Gel 15 Gm Gel..Gram.) 15 gm PO Q15M PRN; Protocol PRN Reason: per Hypoglycemia Standing Ord. Heparin Sodium (Porcine) (Heparin Sodium,Porcine 5,000 Unit/Ml Vial) 5,000 unit SUBCUT Q12H [facility] Last Admin: 01/10/25 01:03 Dose: 5,000 unit Hydromorphone HCl (Hydromorphone Hcl 2 Mg Tablet) 4 mg PO Q3H PRN PRN Reason: Severe Pain (Scale Score 7-10) Last Admin: 01/10/25 08:16 Dose: 4 mg Doxycycline Hyclate 100 mg/ (Sodium Chloride) 250 mls @ 166.67 mls/hr IV Q12H [facility] Last Infusion: 01/10/25 02:41 Dose: Infused Insulin Human Lispro (Insulin Lispro 100 Unit/Ml 3 Ml Vial) 0 unit SUBCUT QIDACHS [facility]; Protocol Last Admin: 01/10/25 07:34 Dose: Not Given Levothyroxine Sodium 112 mcg/ (Levothyroxine Sodium 25 mcg) 137 mcg PO DAILY@0600 [facility] Last Admin: 01/10/25 08:16 Dose: 137 mcg Losartan Potassium (Losartan Potassium 50 Mg Tablet) 100 mg PO DAILY [facility]; Protocol Last Admin: 01/10/25 08:16 Dose: 100 mg Magnesium Hydroxide (Milk Of Magnesia 30 Ml Oral.Susp) 30 ml PO DAILY PRN PRN Reason: Constipation Melatonin (Melatonin 3 Mg Tablet) 6 mg PO BEDTIME PRN PRN Reason: Insomnia Oseltamivir Phosphate (Oseltamivir Phosphate 30 Mg Capsule) 30 mg PO Q48H [facility] Stop: 01/17/25 12:31 Last Admin: 01/09/25 12:33 Dose: 30 mg Sevelamer Carbonate (Sevelamer Carbonate Tablet 800 Mg Tablet) 800 mg PO DAILY PRN PRN Reason: snack Sevelamer Carbonate (Sevelamer Carbonate Tablet 800 Mg Tablet) 1,600 mg PO TIDWM [facility] Last Admin: 01/10/25 08:16 Dose: 1,600 mg Sodium Chloride (0.9 % Sodium Chloride Flush 3 Ml Syringe) 3 ml IVFLUSH QSHIFT [facility] Last Admin: 01/10/25 08:26 Dose: 3 ml Sodium Zirconium Cyclosilicate (Sodium Zirconium Cyclosilicate 10 Gm Powd.Pack) 10 gm PO SUTUTHSA@0900 [facility] Last Admin: 01/10/25 08:15 Dose: 10 gm Home Medications ?Medication ?Instructions ?Recorded ?Confirmed ?Last Taken ?Type atenolol 100 mg tablet 1 tab PO DAILY 07/11/21 01/09/25 01/06/25 History blood sugar diagnostic (FreeStyle 07/11/21 10/30/24 10/30/24 09:00 History Lite Strips) dextroamphetamine-amphetamine 20 1 tab PO TID@0800,1400,1800 07/11/21 01/09/25 01/06/25 History mg tablet levothyroxine 137 mcg tablet 1 tab PO DAILY@0600 07/11/21 01/09/25 01/06/25 History pen needle, diabetic 31 gauge x 07/11/21 10/30/24 10/30/24 09:00 History 5/16 (BD Ultra-Fine Short Pen Needle) amlodipine 5 mg tablet 5 mg PO BID 09/03/23 01/09/25 01/06/25 History atorvastatin 40 mg tablet 40 mg PO DAILY 02/22/24 01/09/25 01/06/25 History hydromorphone 4 mg tablet 4 mg PO Q3H PRN Severe Pain (Scale 06/19/24 01/09/25 4 Days Ago History Score 7-10) ~10/29/24 sodium zirconium cyclosilicate 10 10 g PO SUTUTHSA@0900 06/19/24 01/09/25 01/05/25 History gram oral powder packet (Lokelmd) alprazolam 0.5 mg tablet 0.5 mg PO DAILY PRN anxiety attack 10/30/24 01/09/25 10/30/24 09:00 History alprazolam 2 mg tablet 2 mg PO BID 10/30/24 01/09/25 01/06/25 History insulin lispro 100 unit/mL 1 sliding scale dose subcut TIDAC 10/30/24 01/09/25 10/30/24 09:00 History subcutaneous pen (Humalog KwikPen PRN Blood Glucose (U-100) Insulin) sevelamer carbonate 800 mg tablet 800 mg PO DAILY PRN snack 10/30/24 01/09/25 4 Days Ago History ~10/29/24 vitamin D3 25 mcg (1,000 unit)-vit 1 tab PO RIKY@0900 11/02/24 01/09/25 01/05/25 History K2 90 mcg disintegrating tablet losartan 100 mg tablet 100 mg PO DAILY 01/09/25 01/09/25 01/06/25 History sevelamer carbonate 800 mg tablet 1,600 mg PO TIDWM 01/09/25 01/09/25 01/06/25 History Physical Exam Vital Signs: Last Vital Signs Temp 98.9 F 01/10/25 08:00 Pulse 66 01/10/25 08:00 Resp 18 01/10/25 08:00 BP 133/65 01/10/25 08:00 Pulse Ox 96 01/10/25 08:00 O2 Del Method Nasal Cannula 01/10/25 08:00 O2 Flow Rate 2 01/10/25 08:00 BMI result Body Mass Index 24.6 Const Other: General: AO X 3, no acute distress Resp: CTA bilateral CVS: S1,S2,RRR GI: +BS, NT, no distention Skin: No rash Neuro: motor grossly intact Psych: appropriate affect Results Lab Results 01/10/25 08:31 01/10/25 08:31 Lab results: Chemistry 01/09/25 01/10/25 09:49 08:31 Sodium 127 L 131 L Potassium 5.9 H 4.9 Carbon Dioxide 17 L 20 L BUN 84 H 70 H Creatinine 11.85 H* 9.59 H* Calcium 6.7 L D 7.2 L D Phosphorus 11.8 H Hematology 01/09/25 01/10/25 09:49 08:31 WBC 9.6 9.9 Hgb 11.4 L 12.5 L Plt Count 144 L 141 L Urinalysis 01/09/25 10:50 Urine Color Yellow Urine Appearance Clear Urine pH 8.5 Ur Specific [place] 1.010 Urine Protein 300 (3+) H Urine Glucose (UA) 250 H Urine Ketones Negative Urine Blood Moderate (2+) H Urine Nitrite Negative Ur Leukocyte Esterase Negative Urine RBC >20 H Urine WBC 0-5 Ur Squamous Epith Cells 0-2 Hyaline Casts 0-2 Assessment and Plan (1) ESRD needing dialysis: Status: Acute (2) Acute hyperkalemia: Status: Acute Plan 70-year-old man with end stage renal disease admitted with a hypoxemia. Has mild hyperkalemia. No overt signs or symptoms of uremia. Underwent hemodialysis on 01/09/2025 as per protocol. Low-potassium bath during dialysis to correct hyperkalemia. We will continue to dialyze him 3 x week :Thursday Keep him on low-potassium diet. Watch hemoglobin. No need for Epogen at this time. Check calcium phosphorus PTH Shall follow along with the team Procedures Date of Service Date of Service: 01/10/25
[2025-01-10 11:18] LABS: Glucose, Whole Blood 145 mg/dL (60-115)
--- NOTE | 2025-01-10 12:25 | MHC.CM.PN ---
IMM DELIVERED PT LIVES WITH [facility]. PT IS FUNCTIONALLY INDEPENDENT BUT STATES THAT HE FALLS A LOT. PT ATTENDS HD AT [facility] AT 10AM. [facility] TRANSP[facility]TS. NO SERVICES OR DME. + HCP ON FILE AND VERIFIED. PCP DR. ALLEN AT [facility]: PT MAY BENEFIT FROM P.T. EVAL TO DETERMINE DC NEEDS. [facility] WILL TRANSPORT IF DC HOME. CM WILL CONTINUE TO FOLLOW FOR ANY CHANGE TO DC PLAN/NEEDS.
[2025-01-10 13:00] LABS: MRSA Nasal PCR NEGATIVE (Negative); SA Nasal PCR NEGATIVE (Negative)
[2025-01-10] MEDS: ALPRAZolam 0.5 MG TABLET PO (15:56)
[2025-01-10 16:27] LABS: Glucose, Whole Blood 94 mg/dL (60-115)
--- NOTE | 2025-01-10 23:54 | PC.NURSE ---
blood sugar at HS was 110. number never came through to [facility] but was verified by this RN in the POC handheld.
[2025-01-11] VITALS (7 sets, daily range): BP systolic 126–139; BP diastolic 60–79; PULSE 69–81; RESP 16–18; TEMP 36.3–37.1; O2SAT 92–96
[2025-01-11] MEDS: Doxycycline Hyclate 100 MG in 0.9 % Sodium Chloride 250 ML 166.67 MG IV (00:02)
[2025-01-11] MEDS: Heparin Sodium,Porcine 5,000 UNIT/ML VIAL 5000 UNIT SUBCUT ×2 (00:03→23:23)
[2025-01-11] MEDS: HYDROmorphone HCl 2 MG TABLET 4 MG PO ×4 (04:39→23:22)
[2025-01-11] MEDS: ALPRAZolam 0.5 MG TABLET PO (04:39)
[2025-01-11] MEDS: Levothyroxine Sodium 112 MCG, Levothyroxine Sodium 25 MCG 137 MCG PO (04:40)
[2025-01-11 04:49] LABS: Glucose, Whole Blood 110 mg/dL (60-115)
[2025-01-11 07:56] LABS: Glucose, Whole Blood 88 mg/dL (60-115)
[2025-01-11] MEDS: Losartan Potassium 50 MG TABLET 100 MG PO (08:01)
[2025-01-11] MEDS: Albuterol/Iprat 2.5/0.5MG 3 ML AMPUL.NEB INHALE ×2 (08:01→15:19)
[2025-01-11] MEDS: Atorvastatin Calcium 40 MG TABLET PO (08:01)
[2025-01-11] MEDS: Sevelamer Carbonate Tablet 800 MG TABLET 1600 MG PO ×2 (08:01→16:52)
[2025-01-11] MEDS: amLODIPine Besylate 5 MG TABLET PO ×2 (08:01→19:38)
[2025-01-11] MEDS: ALPRAZolam 0.5 MG TABLET 2 MG PO ×2 (08:02→19:40)
[2025-01-11] MEDS: Amphetamine Mixed Salts 20 MG TABLET PO ×3 (08:02→20:04)
[2025-01-11] MEDS: 0.9 % Sodium Chloride Flush 3 ML SYRINGE IVFLUSH ×3 (08:04→19:42)
--- NOTE | 2025-01-11 08:47 | P.PNIM_ITS ---
Subjective Subjective Date of Service: 01/11/25 Interval History: f/u on acute chypoxic resp failure d/t influenza Overall better, off O2 Physical Exam 2 Vital Signs: Vital Signs: Last Vital Signs Temp 98.1 F 01/11/25 07:17 Pulse 69 01/11/25 08:04 Resp 16 01/11/25 08:04 BP 129/65 01/11/25 07:17 Pulse Ox 92 01/11/25 07:17 O2 Del Method Room Air 01/11/25 07:17 O2 Flow Rate 2 01/10/25 08:00 BMI result Body Mass Index 24.6 Const: Other: General: AO X 3, no acute distress Resp: rales bibasila, no wheezing and normal effort CVS: S1,S2,RRR GI: +BS, NT, no distention Skin: No rash Neuro: motor grossly intact, unsteady gait Psych: appropriate affect Objective Data Active Medications Acetaminophen (Acetaminophen 325 Mg Tablet) 650 mg PO Q6H PRN PRN Reason: Pain, Mild 1-3,fever,headache Albuterol/Ipratropium (Albuterol/Iprat 2.5/0.5mg 3 Ml Ampul.Neb) 3 ml INHALE RQ4H WHILE AWAKE [facility] Last Admin: 01/11/25 08:01 Dose: 3 ml Documented By: KEVON Alprazolam (Alprazolam 0.5 Mg Tablet) 0.5 mg PO DAILY PRN PRN Reason: anxiety attack Last Admin: 01/11/25 04:39 Dose: 0.5 mg Documented By: ELIZABETH Comments: Dr. Bobby OK'd to give now. Alprazolam (Alprazolam 0.5 Mg Tablet) 2 mg PO BID [facility] Last Admin: 01/11/25 08:02 Dose: 2 mg Documented By: KEESHA Amlodipine Besylate (Amlodipine Besylate 5 Mg Tablet) 5 mg PO BID [facility]; Protocol Last Admin: 01/11/25 08:01 Dose: 5 mg Documented By: KEESHA Amphetamine/Dextroamphetamine (Amphetamine Mixed Salts 20 Mg Tablet) 20 mg PO TID@0800,1400,1800 [facility] Last Admin: 01/11/25 08:02 Dose: 20 mg Documented By: KEESHA Atenolol (Atenolol 100 Mg Tablet) 100 mg PO DAILY [facility]; Protocol Last Admin: 01/10/25 08:16 Dose: 100 mg Documented By: KEESHA Atorvastatin Calcium (Atorvastatin Calcium 40 Mg Tablet) 40 mg PO DAILY [facility] Last Admin: 01/11/25 08:01 Dose: 40 mg Documented By: KEESHA Calcium Carbonate (Calcium Carbonate 750 Mg Tab.Chew) 750 mg PO Q4H PRN PRN Reason: Heartburn Ceftriaxone Sodium (Ceftriaxone Sodium 1 Gm Vial) 1 gm IVPUSH Q24H [facility] Last Admin: 01/10/25 08:23 Dose: 1 gm Documented By: KEESHA Dextrose (Dextrose 50 % 25 Gm/50 Ml Syringe) 25 gm IVPUSH Q15M PRN; Protocol PRN Reason: per Hypoglycemia Standing Ord. Doxycycline Monohydrate (Doxycycline Monohydrate 100 Mg Capsule) 100 mg PO Q12H [facility] Glucose (Glucose Gel 15 Gm Gel..Gram.) 15 gm PO Q15M PRN; Protocol PRN Reason: per Hypoglycemia Standing Ord. Heparin Sodium (Porcine) (Heparin Sodium,Porcine 5,000 Unit/Ml Vial) 5,000 unit SUBCUT Q12H [facility] Last Admin: 01/11/25 00:03 Dose: 5,000 unit Documented By: ELIZABETH Hydromorphone HCl (Hydromorphone Hcl 2 Mg Tablet) 4 mg PO Q3H PRN PRN Reason: Severe Pain (Scale Score 7-10) Last Admin: 01/11/25 04:39 Dose: 4 mg Documented By: ELIZABETH Insulin Human Lispro (Insulin Lispro 100 Unit/Ml 3 Ml Vial) 0 unit SUBCUT QIDACHS [facility]; Protocol Last Admin: 01/11/25 07:48 Dose: Not Given Documented By: KEESHA Non-Admin Reason: No Insulin Coverage Levothyroxine Sodium 112 mcg/ (Levothyroxine Sodium 25 mcg) 137 mcg PO DAILY@0600 [facility] Last Admin: 01/11/25 04:40 Dose: 137 mcg Documented By: ELIZABETH Losartan Potassium (Losartan Potassium 50 Mg Tablet) 100 mg PO DAILY [facility]; Protocol Last Admin: 01/11/25 08:01 Dose: 100 mg Documented By: KEESHA Magnesium Hydroxide (Milk Of Magnesia 30 Ml Oral.Susp) 30 ml PO DAILY PRN PRN Reason: Constipation Melatonin (Melatonin 3 Mg Tablet) 6 mg PO BEDTIME PRN PRN Reason: Insomnia Oseltamivir Phosphate (Oseltamivir Phosphate 30 Mg Capsule) 30 mg PO Q48H [facility] Stop: 01/17/25 12:31 Last Admin: 01/09/25 12:33 Dose: 30 mg Documented By: KORIN Sevelamer Carbonate (Sevelamer Carbonate Tablet 800 Mg Tablet) 800 mg PO DAILY PRN PRN Reason: snack Sevelamer Carbonate (Sevelamer Carbonate Tablet 800 Mg Tablet) 1,600 mg PO TIDWM [facility] Last Admin: 01/11/25 08:01 Dose: 1,600 mg Documented By: KEESHA Sodium Chloride (0.9 % Sodium Chloride Flush 3 Ml Syringe) 3 ml IVFLUSH QSHIFT [facility] Last Admin: 01/11/25 08:04 Dose: 3 ml Documented By: KEESHA Sodium Zirconium Cyclosilicate (Sodium Zirconium Cyclosilicate 10 Gm Powd.Pack) 10 gm PO SUTUTHSA@0900 [facility] Last Admin: 01/10/25 08:15 Dose: 10 gm Documented By: KEESHA Labs 01/10/25 08:31 01/11/25 08:05 Labs: Laboratory Results - last 24 hr 01/09/25 01/10/25 01/10/25 16:31 08:31 11:12 MCV 87.7 MCH 30.6 MCHC 34.9 RDW 15.2 Plt Count 141 L MPV 10.8 Immature Gran % (Auto) 0.3 Neut % (Auto) 77.4 H Lymph % (Auto) 13.1 L [place] % (Auto) 9.0 Eos % (Auto) 0.0 Baso % (Auto) 0.2 Lymph # (Auto) 1.3 [place] # (Auto) 0.9 Eos # (Auto) 0.0 Baso # (Auto) 0.0 Abs Immat Gran (auto) 0.03 Absolute Neuts (auto) 7.7 Absolute Nucleated RBC 0.000 Nucleated RBC % (auto) 0.0 Anion Gap 28 H Estim Creat Clear Calc 6.6 Estimated GFR 5 POC Glucose 145 H Random Glucose 113 Calcium 7.2 L D Nasal Screen MRSA (PCR) NEGATIVE Nasal S. aureus Screen NEGATIVE Nasal MRSA/S.aureus Interp SEE NOTE 01/10/25 01/10/25 01/11/25 16:03 20:01 07:11 MCV MCH MCHC RDW Plt Count MPV Immature Gran % (Auto) Neut % (Auto) Lymph % (Auto) [place] % (Auto) Eos % (Auto) Baso % (Auto) Lymph # (Auto) [place] # (Auto) Eos # (Auto) Baso # (Auto) Abs Immat Gran (auto) Absolute Neuts (auto) Absolute Nucleated RBC Nucleated RBC % (auto) Anion Gap Estim Creat Clear Calc Estimated GFR POC Glucose 94 110 88 Random Glucose Calcium Nasal Screen MRSA (PCR) Nasal S. aureus Screen Nasal MRSA/S.aureus Interp Microbiology Microbiology Results: Microbiology 01/09/25 09:49 Blood Culture - Preliminary Blood - Venous No growth after 24 hours. 01/09/25 09:49 Blood Culture - Preliminary Blood - Venous No growth after 24 hours. Assessment and Plan (1) Acute hyperkalemia: Status: Acute (2) Influenza: Status: Acute (3) Acute metabolic encephalopathy: Status: Acute (4) Pneumonia: Status: Acute Plan 70 year old male with history of insulin-dependent type 2 diabetes, ESRD on HD M/W/F, anemia of chronic disease, secondary hyperparathyroidism, hypertension admitted for further management of acute hypoxemic respiratory failure 2/2 influenze and pneumonia Acute hypoxemic repiratory failure 2/2 influenza (dx 01/07) and multifocal pneumonia, hypoxia resolved IV ceftriaxone and doxycycline (01/09) renally dosed tamiflu (01/09) Monitor O2 duonebs q4h for wheezing sputum culture and MRSA nasal swab pending Acute metabolic encephalopathy related to above, resolved Mild metabolic acidosis, related to ESRD, resolved Diarrhea, likely related to viral illness if persists, check gi panel and or cdif ESRD missed HD, MWF Continue phosphorus binders Hyperkalemia, resolved with lokelma Acute hyponatremia hypoosmolar due to volume overload from missed hd nephrology consult fluid restrictions Insulin-dependent type 2 diabetes Diabetic diet, POC glucose Sliding scale insulin Hypothyroidism Levothyroxine Hypertension Amlodipine, atenolol, losartan Mood disorder Continue home medications Chronic pain Continue home hydromorphone Anemia of chronic disease H/H baseline Frequent falls, unsteady gait Neuro recommends outpatient EMG, rehab DVT prophylaxis-heparin Full code Patient requires inpatient stay at least 2 midnights for missed hemodialysis in the setting of weakness from influenza and encephalopathy Quality Stroke Does the patient have a stroke diagnosis?: No VTE Prior VTE?: No VTE Risk Level:: Medical - moderate - high VTE Device Contraindication: Treatment Not Indicated VTE Drug Contraindication: N/A - Med Ordered
[2025-01-11 08:52] LABS: Anion Gap 27 (12-20); Blood Urea Nitrogen 97 mg/dL (9-16); Calcium 6.2 mg/dL (8.4-10.2); Carbon Dioxide 22 mmol/L (22-29); Chloride 86 mmol/L (96-108); Creatinine Clr Calc Pharmacy 5.6; Estimated Glomerular Filt Rate 5; Glucose Fasting 91 mg/dL (60-99); Potassium 4.9 mmol/L (3.3-5.1); Sodium 130 mmol/L (135-145)
[2025-01-11] MEDS: cefTRIAXone sodium 1 GM VIAL IVPUSH (08:56)
[2025-01-11] MEDS: atenoloL 100 MG TABLET PO (08:56)
--- NOTE | 2025-01-11 09:33 | P.CNNE_ITS ---
History of Present Illness Data of Consult Service Date: 01/11/25 Primary Care Provider: Matias Tan MD [facility] Reason for consult: Weakness 70 year old male with history of insulin-dependent type 2 diabetes, ESRD on HD M/W/F, anemia of chronic disease, secondary hyperparathyroidism, hypertension presented to the ED by ambulance due to altered mental status, weakness following diagnosis of influenza 2 days ago. He said that he started having difficulty walking about 6 months ago and before he came to hospital he has been using a walker at home. Now he was unable to stand up. There was no complaint of paresthesias any speech or swallowing difficulty or any double vision. Review of Systems 2 Review of Systems: He was being treated for flu. [facility] Past Medical History Medical History (Updated 01/11/25 @ 09:35 by Pam Goddard MD) ESRD needing dialysis End stage kidney disease Secondary hyperparathyroidism (of renal origin) Anemia in chronic kidney disease DONIS (acute kidney injury) End stage renal disease on dialysis Diabetes Kidney failure HTN (hypertension) Social History Social History Household Members: Spouse Housing: House Are you a primary specialist wound care to a significant other at home: No Do you presently have visiting nurse or other home services: No Alcohol intake: never Comment: Pt turning off own bed alarm Kasie Pizarro [employer] aware provide with re- educa Patient Tobacco Use Status: Never used Tobacco Cigarette Packs Per Day: 0 Cigarettes Per Day: 0.0 Years Smoked: NA e-Cigarette/Vaping Use: Never Used Second Hand Smoke Exposure: No Advance Directives Date on File: 09/07/23 service: No Meds Allergies Allergy/AdvReac Type Severity Reaction Status Date / Time Penicillins [PENICILLINS] Allergy Unknown RASH Verified 01/09/25 08:53 tramadol [From ULTRAM] Allergy Unknown RASH Verified 01/09/25 08:53 trazodone [TRAZODONE] Allergy Unknown PRIAPISM Verified 01/09/25 08:53 risperidone [RISPERIDONE] AdvReac Severe dizzy, EPS Verified 01/09/25 08:53 Active Medications: Current Medications Acetaminophen (Acetaminophen 325 Mg Tablet) 650 mg PO Q6H PRN PRN Reason: Pain, Mild 1-3,fever,headache Albuterol/Ipratropium (Albuterol/Iprat 2.5/0.5mg 3 Ml Ampul.Neb) 3 ml INHALE RQ4H WHILE AWAKE [facility] Last Admin: 01/11/25 08:01 Dose: 3 ml Alprazolam (Alprazolam 0.5 Mg Tablet) 0.5 mg PO DAILY PRN PRN Reason: anxiety attack Last Admin: 01/11/25 04:39 Dose: 0.5 mg Alprazolam (Alprazolam 0.5 Mg Tablet) 2 mg PO BID [facility] Last Admin: 01/11/25 08:02 Dose: 2 mg Amlodipine Besylate (Amlodipine Besylate 5 Mg Tablet) 5 mg PO BID [facility]; Protocol Last Admin: 01/11/25 08:01 Dose: 5 mg Amphetamine/Dextroamphetamine (Amphetamine Mixed Salts 20 Mg Tablet) 20 mg PO TID@0800,1400,1800 [facility] Last Admin: 01/11/25 08:02 Dose: 20 mg Atenolol (Atenolol 100 Mg Tablet) 100 mg PO DAILY [facility]; Protocol Last Admin: 01/11/25 08:56 Dose: 100 mg Atorvastatin Calcium (Atorvastatin Calcium 40 Mg Tablet) 40 mg PO DAILY [facility] Last Admin: 01/11/25 08:01 Dose: 40 mg Calcium Carbonate (Calcium Carbonate 750 Mg Tab.Chew) 750 mg PO Q4H PRN PRN Reason: Heartburn Ceftriaxone Sodium (Ceftriaxone Sodium 1 Gm Vial) 1 gm IVPUSH Q24H [facility] Last Admin: 01/11/25 08:56 Dose: 1 gm Dextrose (Dextrose 50 % 25 Gm/50 Ml Syringe) 25 gm IVPUSH Q15M PRN; Protocol PRN Reason: per Hypoglycemia Standing Ord. Doxycycline Monohydrate (Doxycycline Monohydrate 100 Mg Capsule) 100 mg PO Q12H [facility] Glucose (Glucose Gel 15 Gm Gel..Gram.) 15 gm PO Q15M PRN; Protocol PRN Reason: per Hypoglycemia Standing Ord. Heparin Sodium (Porcine) (Heparin Sodium,Porcine 5,000 Unit/Ml Vial) 5,000 unit SUBCUT Q12H [facility] Last Admin: 01/11/25 00:03 Dose: 5,000 unit Hydromorphone HCl (Hydromorphone Hcl 2 Mg Tablet) 4 mg PO Q3H PRN PRN Reason: Severe Pain (Scale Score 7-10) Last Admin: 01/11/25 04:39 Dose: 4 mg Insulin Human Lispro (Insulin Lispro 100 Unit/Ml 3 Ml Vial) 0 unit SUBCUT QIDACHS [facility]; Protocol Last Admin: 01/11/25 07:48 Dose: Not Given Levothyroxine Sodium 112 mcg/ (Levothyroxine Sodium 25 mcg) 137 mcg PO DAILY@0600 [facility] Last Admin: 01/11/25 04:40 Dose: 137 mcg Losartan Potassium (Losartan Potassium 50 Mg Tablet) 100 mg PO DAILY [facility]; Protocol Last Admin: 01/11/25 08:01 Dose: 100 mg Magnesium Hydroxide (Milk Of Magnesia 30 Ml Oral.Susp) 30 ml PO DAILY PRN PRN Reason: Constipation Melatonin (Melatonin 3 Mg Tablet) 6 mg PO BEDTIME PRN PRN Reason: Insomnia Oseltamivir Phosphate (Oseltamivir Phosphate 30 Mg Capsule) 30 mg PO Q48H [facility] Stop: 01/17/25 12:31 Last Admin: 01/09/25 12:33 Dose: 30 mg Sevelamer Carbonate (Sevelamer Carbonate Tablet 800 Mg Tablet) 800 mg PO DAILY PRN PRN Reason: snack Sevelamer Carbonate (Sevelamer Carbonate Tablet 800 Mg Tablet) 1,600 mg PO TIDWM [facility] Last Admin: 01/11/25 08:01 Dose: 1,600 mg Sodium Chloride (0.9 % Sodium Chloride Flush 3 Ml Syringe) [facility] Last Admin: 01/11/25 08:04 Dose: 3 ml Sodium Zirconium Cyclosilicate (Sodium Zirconium Cyclosilicate 10 Gm Powd.Pack) 10 gm PO SUTUTHSA@0900 [facility] Last Admin: 01/10/25 08:15 Dose: 10 gm Home Medications ?Medication ?Instructions ?Recorded ?Confirmed ?Last Taken ?Type atenolol 100 mg tablet 1 tab PO DAILY 07/11/21 01/09/25 01/06/25 History blood sugar diagnostic (FreeStyle 07/11/21 10/30/24 10/30/24 09:00 History Lite Strips) dextroamphetamine-amphetamine 20 1 tab PO TID@0800,1400,1800 07/11/21 01/09/25 01/06/25 History mg tablet levothyroxine 137 mcg tablet 1 tab PO DAILY@0600 07/11/21 01/09/25 01/06/25 History pen needle, diabetic 31 gauge x 07/11/21 10/30/24 10/30/24 09:00 History 16 (BD Ultra-Fine Short Pen Needle) amlodipine 5 mg tablet 5 mg PO BID 09/03/23 01/09/25 01/06/25 History atorvastatin 40 mg tablet 40 mg PO DAILY 02/22/24 01/09/25 01/06/25 History hydromorphone 4 mg tablet 4 mg PO Q3H PRN Severe Pain (Scale 06/19/24 01/09/25 4 Days Ago History Score 7-10) ~10/29/24 sodium zirconium cyclosilicate 10 10 g PO SUTUTHSA@0900 06/19/24 01/09/25 01/05/25 History gram oral powder packet (Lokelok) alprazolam 0.5 mg tablet 0.5 mg PO DAILY PRN anxiety attack 10/30/24 01/09/25 10/30/24 09:00 History alprazolam 2 mg tablet 2 mg PO BID 10/30/24 01/09/25 01/06/25 History insulin lispro 100 unit/mL 1 sliding scale dose subcut TIDAC 10/30/24 01/09/25 10/30/24 09:00 History subcutaneous pen (Humalog KwikPen PRN Blood Glucose (U-100) Insulin) sevelamer carbonate 800 mg tablet 800 mg PO DAILY PRN snack 10/30/24 01/09/25 4 Days Ago History ~10/29/24 vitamin D3 25 mcg (1,000 unit)-vit 1 tab PO SUTUTHSA@0900 11/02/24 01/09/25 01/05/25 History K2 90 mcg disintegrating tablet losartan 100 mg tablet 100 mg PO DAILY 01/09/25 01/09/25 01/06/25 History sevelamer carbonate 800 mg tablet 1,600 mg PO TIDWM 01/09/25 01/09/25 01/06/25 History Physical Exam 2 Vital Signs: Vital Signs: Last Vital Signs Temp 98.1 F 01/11/25 07:17 Pulse 69 01/11/25 08:04 Resp 16 01/11/25 08:04 BP 129/65 01/11/25 07:17 Pulse Ox 92 01/11/25 07:17 O2 Del Method Room Air 01/11/25 07:17 O2 Flow Rate 2 01/10/25 08:00 BMI result Body Mass Index 24.6 Neuro: Other: Slightly drowsy but able to make a conversation and answer questions. Spontaneity and fluency of speech were normal. Affect was flat. Face was symmetrical. Visual rider are full. There was no focal arm or leg weakness but there was generalize weakness of 4 or 5 intensity. Deep tendon reflexes were absent with flexor plantars. Speech was normal. Results Labs 01/10/25 08:31 01/11/25 08:05 Labs: BMP 01/10/25 01/11/25 08:31 08:05 Sodium 131 L 130 L Potassium 4.9 4.9 Chloride 88 L 86 L Carbon Dioxide 20 L 22 BUN 70 H 97 H Creatinine 9.59 H* 11.27 H* Calcium 7.2 L D 6.[address] revealed [id number] diffuse atrophy. Microbiology Microbiology Results: Microbiology 01/09/25 09:49 Blood - Venous Blood Culture - Preliminary No growth after 24 hours. 01/09/25 09:49 Blood - Venous Blood Culture - Preliminary No growth after 24 hours. Assessment and Plan (1) Multifactorial gait disorder: Status: Acute 70 years old man with multifactorial gait disorder including signs of chronic peripheral neuropathy, multiple metabolic abnormalities, and cerebral atrophy in addition to infection. Difficulty with walking according to him started 6 months ago. At this time, my recommendation is to take care of his metabolic abnormalities and infection and consider outpatient EMG nerve conduction study for evaluation. Overall picture was not suggestive of a central pathology or Guillain-[place] syndrome Procedures Date of Service Date of Service: 01/11/25
--- NOTE | 2025-01-11 09:48 | P.CDIM_ITS ---
PROVIDER RESPONSE TEXT: To clarify, the appropriate diagnosis supported by the clinical indicators: Influenza A QUERY TEXT: PHYSICIAN'S DOCUMENTATION REQUEST Date of Query: 01/10/2025 09:54 AM EDT Patient Name: PRIYA BO Admit Date: 01/09/2025 Dear Reyes Reyes MD, A review of the medical record indicates additional documentation may be needed. Please review below and update the documentation accordingly. Clinical Indicators: H&P 01/09/25 - Acute hypoxemic respiratory failure 2/2 Influenza (dx 01/07) and pneumonia. Tamiflu, Tylenol Positive for Influenza Virus Type A on 01/07/25. Based on the above, could you clarify any further specifics to the noted Influenza diagnosis: Influenza Influenza A Other (explain) Clinically unable to determine (explain) Thank you, Tesha Velasquez, CCS, CDIS Use of terms such as suspected, likely, concern for, or probable (associated with a specific diagnosi s that is being evaluated, monitored, or treated as if it exists) are acceptable and can be coded in the inpatient se tting, when documented at the time of discharge. Please use your independent medical judgment in providing your response. THIS QUERY IS PART OF THE PERMANENT MEDICAL RECORD
--- NOTE | 2025-01-11 09:49 | P.CDIM_ITS ---
PROVIDER RESPONSE TEXT: To clarify, the appropriate diagnosis supported by the clinical indicators: Hypocalcemia: suspected QUERY TEXT: PHYSICIAN'S DOCUMENTATION REQUEST Date of Query: 01/10/2025 12:05 PM EDT Patient Name: PRIYA BO Admit Date: 01/09/2025 Dear Reyes Reyes MD, A review of the medical record indicates additional documentation may be needed. Please review below and update the documentation accordingly. Clinical Indicators: LABS: calcium 6.7 L 7.2 L IV calcium gluconate Based on the above, could you clarify if there is a diagnosis that correlates with these lab findings : Hypocalcemia possible, resolved, suspected etc. Labs indicate a diagnosis of (please specify) Other (explain) Clinically unable to determine (explain) Thank you, Tesha Velasquez, CCS, CDIS Use of terms such as suspected, likely, concern for, or probable (associated with a specific diagnosi s that is being evaluated, monitored, or treated as if it exists) are acceptable and can be coded in the inpatient se tting, when documented at the time of discharge. Please use your independent medical judgment in providing your response. THIS QUERY IS PART OF THE PERMANENT MEDICAL RECORD
[2025-01-11 11:21] LABS: Glucose, Whole Blood 129 mg/dL (60-115)
[2025-01-11] MEDS: Doxycycline Monohydrate 100 MG CAPSULE PO ×2 (12:57→23:22)
[2025-01-11] MEDS: Oseltamivir Phosphate 30 MG CAPSULE PO (12:57)
--- NOTE | 2025-01-11 13:24 | MHC.CM.PN ---
EMR REVIEWD AND PER MD ROUNDS, PT HAS BEEN RECOMMENDED FOR REHAB ON DC. P.T. HAS REC. ACUTE REHAB AND [facility] HAS OFFERED A BED FOR 01/12 AT 11 AM. HD WILL BE PROVIDED THERE. RUN SHEETS FROM [facility] [place] PROVIDED TO [facility] AND HEP B SURFACE ANTIGEN TO BE DONE. PT IS IN AGREEMENT WITH PLAN AND PER PT REQUEST, KENDRA WE[facility]BROOK UPDATED. BLS TRANSPORT BOOKED FOR 11 AM 01/12/25 VIA [facility]
--- NOTE | 2025-01-11 14:00 | P.PNNP_ITS ---
Subjective Subjective Date of Service: 01/11/25 Interval history: Events noted. All recent data reviewed Physical Exam 2 Vital Signs: Vital Signs: Last Vital Signs Temp 98.1 F 01/11/25 07:17 Pulse 69 01/11/25 08:04 Resp 16 01/11/25 08:04 BP 129/65 01/11/25 07:17 Pulse Ox 92 01/11/25 07:17 O2 Del Method Room Air 01/11/25 07:17 O2 Flow Rate 2 01/10/25 08:00 BMI result Body Mass Index 24.6 Const: General: comfortable and no acute distress O rientation/consciousness: patient oriented x3 HEENT: Head: Yes normocephalic Mouth: Normal oral and palatal mucosa present Eyes: EOM: EOMs intact bilaterally Neck: Neck: Yes supple Resp: Auscultation: clear to auscultation bilaterally Cardio: Jugular venous distension: no JVD Rate: regular rate GI: Palpation (GI): Soft to palpation Auscultation: normal bowel sounds Skin: General skin exam: no rashes or lesions noted Neuro: General: patient oriented x3 and moves all extremities Extrem: General: Yes no pedal edema Objective Data Labs 01/10/25 08:31 01/11/25 08:05 Labs: Laboratory Results - last 24 hr 01/10/25 01/10/25 01/11/25 16:03 20:01 07:11 Sodium Potassium Chloride Carbon Dioxide Anion Gap BUN Creatinine Estim Creat Clear Calc Estimated GFR POC Glucose 94 110 88 Fasting Glucose Calcium 01/11/25 01/11/25 08:05 11:08 Sodium 130 L Potassium 4.9 Chloride 86 L Carbon Dioxide 22 Anion Gap 27 H BUN 97 H Creatinine 11.27 H* Estim Creat Clear Calc 5.6 Estimated GFR 5 POC Glucose 129 H Fasting Glucose 91 Calcium 6.2 L D Microbiology Microbiology Results: Microbiology 01/09/25 09:49 Blood - Venous Blood Culture - Preliminary No growth after 48 hours. 01/09/25 09:49 Blood - Venous Blood Culture - Preliminary No growth after 48 hours. Procedures Date of Service Date of Service: 01/11/25 Assessment & Plan Assessment and plan (1) ESRD needing dialysis: Status: Acute Plan Had regular hd as per schedule today. His dry weight needs to be brought down. He should be on a low-sodium, low potassium, low phosphorus diet with a fluid restriction. He should take phosphorus binders 3 times a day with meals. C/W rest of current medications. We shall closely follow-up him up during his current hospital stay for continued care Progress Note: Quality Stroke Does the patient have a stroke diagnosis?: No
--- NOTE | 2025-01-11 15:22 | PM.DS ---
DS: Providers Provider Date of Service: 01/12/25 Date of admission: 01/09/25 12:12 Date of discharge: 01/12/25 Primary care physician: Matias Tan MD Consults: 01/09/25 12:44 Consult to Nephrology Routine Consulting Provider: [facility] Reason for consultation: esrd missed hd, hyperkalemia, hyponatremia 01/11/25 08:45 Consult to Neurology Routine Consulting Provider: [facility] Reason for consultation: recurrent fall DS: Diagnosis Discharge Diagnosis (1) ESRD needing dialysis: Status: Acute DS: Summary Hospital Course Hospital Course: admission hpi Chief Complaint: weak/tired, missed HD 70 year old male with history of insulin-dependent type 2 diabetes, ESRD on HD M/W/F, anemia of chronic disease, secondary hyperparathyroidism, hypertension presented to the ED by ambulance due to altered mental status, weakness following diagnosis of influenza 2 days ago. He states he always feels weak and tired ongoing for several years. Per his PCI, he has had slow speech, confusion, and has been warned to the touch. The patient is a limited historian and is very weak on exam. He is oriented to self and place. He states that he has had a cough that is occasionally productive ongoing for the last few days. He denies any fevers or chills. No known sick contacts. Denies shortness of breath, congestion, abdominal pain, nausea, vomiting, diarrhea, palpitations, or chest pain. In the ED, has been febrile to 102.5 and hypoxic to 88% placed on 2 L supplemental O2. He has been weaned back to room air now satting 94%. There is no leukocytosis. Creatinine 11.85, BUN 84. Sodium 127, potassium 5.9, chloride 89, phosphorus 11.8, CO2 17 with anion gap 27. VBG with pH 7.40, pCO2 27, bicarb 17. Urinalysis not indicative of infection. Chest x-ray shows cardiomegaly with multifocal patchy airspace opacities which may represent pneumonia versus pulmonary edema. In the ED, has received cefepime, vancomycin, bicarb, insulin, calcium gluconate. hospital course: This 70-year-old male with a significant medical history including insulin-dependent type 2 diabetes, end-stage renal disease requiring hemodialysis on Mondays, Wednesdays, and Fridays, anemia of chronic disease, secondary hyperparathyroidism, and hypertension presented after experiencing weakness and a fall. His evaluation revealed acute hypoxemic respiratory failure attributed to influenza and pneumonia. His hypoxia has since resolved with treatment, which included intravenous ceftriaxone and doxycycline for the pneumonia (with a plan to transition to oral cefuroxime axetil [Ceftin] to complete a 7-day course) and a 5-day course of oseltamivir (Tamiflu) for the influenza. Given his ongoing significant weakness and deconditioning, a Neurology consultation resulted in recommendations for short-term rehabilitation (STR) and an outpatient electromyography (EMG) study. Acute metabolic encephalopathy related to above, resolved Mild metabolic acidosis, related to ESRD, resolved Diarrhea, likely related to viral illness if persists, check gi panel and or cdif ESRD missed HD, MWF Continue phosphorus binders Hep B surface antigen is negatv Hyperkalemia, resolved with lokelma Acute hyponatremia hypoosmolar due to volume overload from missed hd nephrology consult fluid restrictions Insulin-dependent type 2 diabetes Diabetic diet, POC glucose Sliding scale insulin Hypothyroidism Levothyroxine Hypertension Amlodipine, atenolol, losartan Mood disorder Continue home medications Chronic pain Continue home hydromorphone Anemia of chronic disease H/H baseline Time Attestation Discharge Coordination Time (in mins): 40 Quality: Safe Use of Opioids Does Pt have an Active Cancer Diagnosis on the Problem List?: No Quality: Stroke Does the patient have a stroke diagnosis?: No Physical Exam Vital Signs: Vital Signs: Last Vital Signs Temp 97.3 F 01/11/25 15:00 Pulse 75 01/11/25 15:00 Resp 18 01/11/25 15:00 BP 139/70 01/11/25 15:00 Pulse Ox 92 01/11/25 15:00 O2 Del Method Room Air 01/11/25 15:00 O2 Flow Rate 2 01/10/25 08:00 BMI result Body Mass Index 24.6 Const: Other: Selected Entries 01/12/25 07:12 Temperature 98.4 F Pulse Rate 66 Blood Pressure 137/62 Pulse Oximetry 92 Oxygen Delivery Me thod Room Air DS: Data Data Completed and Pending Completed studies during hospitalization [Text1]: Procedures Assistance with Respiratory Ventilation, Less than 24 Consecutive Hours, Continuous Positive Airway Pressure (11/04/23) Performance of Urinary Filtration, Intermittent, Less than 6 Hours Per Day (11/02/24) Labs on day of discharge: Laboratory Results - last 24 hr 01/10/25 01/10/25 01/11/25 16:03 20:01 07:11 Sodium Potassium Chloride Carbon Dioxide Anion Gap BUN Creatinine Estim Creat Clear Calc Estimated GFR POC Glucose 94 110 88 Fasting Glucose Calcium 01/11/25 01/11/25 08:05 11:08 Sodium 130 L Potassium 4.9 Chloride 86 L Carbon Dioxide 22 Anion Gap 27 H BUN 97 H Creatinine 11.27 H* Estim Creat Clear Calc 5.6 Estimated GFR 5 POC Glucose 129 H Fasting Glucose 91 Calcium 6.2 L D Preliminary micro results at discharge 01/09/25 09:49 Blood Culture - Preliminary Blood - Venous No growth after 48 hours. 01/09/25 09:49 Blood Culture - Preliminary Blood - Venous No growth after 48 hours. Discharge Plan Discharge Anticipated Discharge Date/Time: 01/12/25 09:19 Patient Disposition: Xfer SNF Discharge Diagnosis: pneumonia, influenza A, metabolic encephalopathy Referrals: Matias Tan MD [Primary Care Provider] - 1 Week Pam Goddard MD [Physician] - 2 Weeks (for EMG) Discharge Medications: New oseltamivir 30 mg Capsule 30 mg PO Q48H Qty: 3 0RF cefuroxime axetil 500 mg tablet 500 mg PO DAILY 3 Days Qty: 3 0RF Continued levothyroxine 137 mcg tablet 1 tab PO DAILY@0600 atenolol 100 mg tablet 1 tab PO DAILY (DME) FreeStyle Lite Strips Strip MISCELLANEOUS TID dextroamphetamine-amphetamine 20 mg tablet 1 tab PO TID@0800,1400,1800 (DME) pen needle, diabetic [BD Ultra-Fine Short Pen Needle] 31 gauge x 5/16 needle subcut DAILY hydromorphone 4 mg tablet 4 mg PO Q3H PRN (Reason: Severe Pain (Scale Score 7-10)) Lokelma 10 gram Powder In Packet 10 g PO SUTUTHSA@0900 Rx Instructions: on non dialysis days vitamin D3-vitamin K2 25 mcg (1,000 unit)-90 mcg Tablet,Disintegrating 1 tab PO SUTUTHSA@0900 losartan 100 mg tablet 100 mg PO DAILY sevelamer carbonate 800 mg tablet 1,600 mg PO TIDWM amlodipine 5 mg tablet 5 mg PO BID atorvastatin 40 mg tablet 40 mg PO DAILY alprazolam 0.5 mg tablet 0.5 mg PO DAILY PRN (Reason: anxiety attack) alprazolam 2 mg tablet 2 mg PO BID sevelamer carbonate 800 mg tablet 800 mg PO DAILY PRN (Reason: snack) insulin lispro [Humalog KwikPen Insulin] 100 unit/mL insulin pen 1 sliding scale dose subcut TIDAC PRN (Reason: Blood Glucose) Discharge Orders: Discharge Order (Routine); Ordered 01/12/25 Ordered By: Reyes Reyes Diet: Advance to usual diet Activity on Discharge: As tolerated Stand Alone Forms: Patient Portal Discharge page Print Language: Tongan Care Plan Goals: recovery from pneumonia and influenza Health Concerns: pneumonia] influenza Plan of Treatment: take ceftin for pneumonia take tamiflu for flu Assessment: see above
[2025-01-11] MEDS: Acetaminophen 325 MG TABLET 650 MG PO (19:39)
--- NOTE | 2025-01-11 21:59 | PC.NURSE ---
pt's blood sugar at HS was 134, number not coming through to [facility] but was verified on POC device by this RN. pt not given any insulin per slididn scale order.
[2025-01-11] MEDS: Melatonin 3 MG TABLET 6 MG PO (23:22)
[2025-01-12 03:44] VITALS: BP 137/77; PULSE 67; RESP 18; TEMP 37; O2SAT 96
[2025-01-12] MEDS: HYDROmorphone HCl 2 MG TABLET 4 MG PO ×2 (03:55→08:54)
[2025-01-12] MEDS: ALPRAZolam 0.5 MG TABLET PO (04:11)
[2025-01-12 04:23] LABS: Glucose, Whole Blood 93 mg/dL (60-115)
[2025-01-12 04:23] LABS: Glucose, Whole Blood 134 mg/dL (60-115)
[2025-01-12 04:29] LABS: Hepatitis B Surface Antigen Negative (Negative)
[2025-01-12] MEDS: Levothyroxine Sodium 112 MCG, Levothyroxine Sodium 25 MCG 137 MCG PO (05:50)
[2025-01-12 07:12] VITALS: BP 137/62; PULSE 66; RESP 16; TEMP 36.9; O2SAT 92
[2025-01-12] MEDS: Losartan Potassium 50 MG TABLET 100 MG PO (07:48)
[2025-01-12] MEDS: 0.9 % Sodium Chloride Flush 3 ML SYRINGE IVFLUSH (07:48)
[2025-01-12] MEDS: ALPRAZolam 0.5 MG TABLET 2 MG PO (07:49)
[2025-01-12] MEDS: atenoloL 100 MG TABLET PO (07:49)
[2025-01-12] MEDS: Sodium Zirconium Cyclosilicate 10 GM POWD.PACK PO (07:49)
[2025-01-12] MEDS: amLODIPine Besylate 5 MG TABLET PO (07:49)
[2025-01-12] MEDS: Amphetamine Mixed Salts 20 MG TABLET PO (07:49)
[2025-01-12] MEDS: Sevelamer Carbonate Tablet 800 MG TABLET 1600 MG PO (07:49)
[2025-01-12] MEDS: Atorvastatin Calcium 40 MG TABLET PO (07:50)
[2025-01-12 08:10] LABS: Glucose, Whole Blood 104 mg/dL (60-115)
[2025-01-12] MEDS: Albuterol/Iprat 2.5/0.5MG 3 ML AMPUL.NEB INHALE (08:22)
[2025-01-12 08:35] VITALS: PULSE 68; RESP 18; O2SAT 95
[2025-01-12] MEDS: cefTRIAXone sodium 1 GM VIAL IVPUSH (08:55)
[2025-01-12 10:58] VITALS: BP 131/66; PULSE 68; RESP 16; TEMP 36.8; O2SAT 94
--- NOTE | 2025-01-12 11:19 | MHC.CM.PN ---
DP: PT HAS BEEN MEDICALLY CLEARED FOR DC TO [facility]. RN NOTIFIED. HCP/ [facility]RO UPDATED. BLS TRANSPORT FOR 11 AM WITH ANDREW.
--- NOTE | 2025-01-16 21:26 | PC.NURSE ---
on 01/11/25 at 1939 pt was given tylenol for 7/10 pain, he requested the tylenol for pain.
== END 2025-01-12 11:29 | disposition skilled nursing facility (03) | DRG 193 ==
LOC: HO.ED 12:31 → HO.EDOVER 12:39 → HO.S3 01-10 06:35
PROVIDERS: Internal Medicine; Admitting Provider Physician Assistant; Emergency Provider Emergency Medicine Emergency Medical Services; PCP Family Medicine; Visit Provider Internal Medicine
DX: J10.00 Influenza due to other identified influenza virus with unspecified type of pneumonia (principal); J96.21 Acute and chronic respiratory failure with hypoxia; N18.6 End stage renal disease; I13.2 Hypertensive heart and chronic kidney disease with heart failure and with stage 5 chronic kidney disease, or end stage renal disease; I50.32 Chronic diastolic (congestive) heart failure; N25.81 Secondary hyperparathyroidism of renal origin; E87.1 Hypo-osmolality and hyponatremia; E87.5 Hyperkalemia; J10.81 Influenza due to other identified influenza virus with encephalopathy; E03.9 Hypothyroidism, unspecified; E11.22 Type 2 diabetes mellitus with diabetic chronic kidney disease; D63.1 Anemia in chronic kidney disease; F39 Unspecified mood [affective] disorder; E11.42 Type 2 diabetes mellitus with diabetic polyneuropathy; G31.9 Degenerative disease of nervous system, unspecified; E83.51 Hypocalcemia; G89.29 Other chronic pain; Z99.2 Dependence on renal dialysis; Z91.158 Patient's noncompliance with renal dialysis for other reason; Z79.4 Long term (current) use of insulin; Z79.891 Long term (current) use of opiate analgesic; Z79.890 Hormone replacement therapy; Z79.899 Other long term (current) drug therapy
CPT/HCPCS: 0241U; 36415; 70450; 71045; 71250; 80048; 80076; 81001; 82803; 82947; 83605; 83690; 83735; 83880; 84100; 84484; 85025; 87040; 87340; 87640; 87641; 90999; 93005; 94640; 97162; 99285; J0613; J0692; J0696; J1171; J1644; J3370

== ENCOUNTER → 2025-01-09 09:00 | Outpatient (BNV) | payer MEDICARE, SELFPAY | PROVIDERS: Emergency Provider Emergency Medicine Emergency Medical Services; PCP Family Medicine; Visit Provider Internal Medicine Cardiovascular Disease | DX: R94.31 Abnormal electrocardiogram [ECG] [EKG] (principal); J11.1 Influenza due to unidentified influenza virus with other respiratory manifestations | CPT/HCPCS: 93010 ==

== ENCOUNTER → 2025-01-09 09:00 | Outpatient (BNV) | payer MEDICARE, SELFPAY | PROVIDERS: Emergency Provider Emergency Medicine Emergency Medical Services; PCP Family Medicine; Visit Provider Radiology Diagnostic Radiology | DX: J18.9 Pneumonia, unspecified organism (principal); R41.82 Altered mental status, unspecified | CPT/HCPCS: 71045; 71250 ==

== ENCOUNTER → 2025-01-09 12:12 | Outpatient (BNV) | payer MEDICARE, SELFPAY | PROVIDERS: Admitting Provider Physician Assistant; Emergency Provider Emergency Medicine Emergency Medical Services; PCP Family Medicine; Visit Provider Internal Medicine Hypertension Specialist | DX: N18.6 End stage renal disease (principal); Z99.2 Dependence on renal dialysis | CPT/HCPCS: 99223; 99232 ==

== ENCOUNTER → 2025-01-09 12:12 | Outpatient (BNV) | payer MEDICARE, SELFPAY | PROVIDERS: Admitting Provider Physician Assistant; Emergency Provider Emergency Medicine Emergency Medical Services; PCP Family Medicine; Visit Provider Physician Assistant | DX: E87.5 Hyperkalemia (principal); J11.1 Influenza due to unidentified influenza virus with other respiratory manifestations; G93.41 Metabolic encephalopathy; J18.9 Pneumonia, unspecified organism | CPT/HCPCS: 99223; 99232; 99239 ==

== ENCOUNTER → 2025-01-09 12:12 | Outpatient (BNV) | payer MEDICARE, SELFPAY | PROVIDERS: Admitting Provider Physician Assistant; Emergency Provider Emergency Medicine Emergency Medical Services; PCP Family Medicine; Visit Provider Psychiatry & Neurology Neurology | DX: R26.89 Other abnormalities of gait and mobility (principal) | CPT/HCPCS: 99222 ==

== ENCOUNTER 2025-01-18 11:26 | Inpatient (IN) | payer MEDICARE, SELFPAY ==
[2025-01-18] VITALS (10 sets, daily range): BP systolic 143–157; BP diastolic 63–89; PULSE 50–58; RESP 12–20; TEMP 36.3–36.6; O2SAT 95–100; BMI 31.0
--- NOTE | ~2025-01-18 | MR_ITS ---
EXAMINATION: MR VENOGRAM HEAD WITH AND WITHOUT IV CONTRAST CLINICAL INFORMATION: Questionable thrombus left internal jugular bulb. TECHNIQUE: Contrast-enhanced MR venogram brain. Maximum intensity projections. COMPARISON: Correlated to MRI brain brain dated January 19, 2025. FINDINGS: There are superior sagittal sinus, internal cerebral veins, straight sinus, transverse sinuses sigmoid sinuses and jugular bulbs demonstrated normal patency without intraluminal filling defects. There is a dominant right internal jugular bulb and right transverse sinus. MR/MR venography head wo/w con IMPRESSION: No main cerebral venous sinus thrombosis. Normal MRV brain. Electronically signed by: Dg Rob MD 01/20/2025 02:11 PM EDT
--- NOTE | ~2025-01-18 | CT_ITS ---
EXAMINATION: CT HEAD WITHOUT IV CONTRAST HISTORY: confusion. TECHNIQUE: Unenhanced helical CT of the head was performed per standard departmental protocol. Coronal and sagittal reformats of the head were also evaluated. One or more of the following techniques was used for dose reduction: Automated exposure control, adjustment of the mA and/or kV according to patient size, use of iterative reconstruction technique. DLP: 712 mGy-cm COMPARISON: Comparison is made with the prior examination dated 01/09/2025. FINDINGS: BRAIN: There is diffuse prominence of the ventricular system and cortical sulci, consistent with atrophy. Periventricular and subcortical white matter hypodensities are noted which are nonspecific, but often seen in the setting of small vessel ischemic disease. There is no mass effect or midline shift. No intra- or extra-axial fluid collections are identified. SINUSES: The visualized paranasal sinuses are clear. The mastoid air cells and middle ear cavities are well pneumatized. ORBITS: The visualized orbits are unremarkable. BONES/SOFT TISSUES: The extracranial soft tissues are unremarkable. The calvarium is intact. No suspicious lytic or sclerotic lesions. CT/CT head/brain wo IV con IMPRESSION: No acute intracranial abnormality. Electronically signed by: Ferdinand Love MD 01/18/2025 01:58 PM EDT
--- NOTE | ~2025-01-18 | MR_ITS ---
EXAMINATION: MR BRAIN WITHOUT CONTRAST CLINICAL INFORMATION: Newly worsening gait abnormality. Confusion. Confused COMPARISON: Correlated to CT brain dated January 18, 2025 and January 09, 2025. TECHNIQUE: MRI of the brain was obtained using routine sequences without contrast. FINDINGS: No restricted diffusion. There is prominence of the extra-axial CSF spaces cerebral sulci and ventricles likely central volume loss. No acute intracranial hemorrhage, mass effect, midline shift, hydrocephalus or herniation. There are few scattered punctate hyperintense T2 FLAIR signal in the left frontal cage radiata white matter. Mild deep periventricular white matter hyperintense T2 FLAIR signal. There is hyperintense FLAIR signal with intermediate T1 and T2 signal involving the left jugular bulb left sigmoid transverse sinus. Sellar/suprasellar region demonstrated no gross masses or signal abnormality. Craniocervical junction is intact.. MR/MR head/brain wo con IMPRESSION: No acute stroke or acute intracranial hemorrhage. There is global cerebral atrophy with the questionable normal pressure hydrocephalus in the correct clinical settings. Concerning occlusive thrombus, left internal jugular bulb, left sigmoid and transverse sinuses. Electronically signed by: Dg Rob MD 01/19/2025 03:25 PM EDT
--- NOTE | ~2025-01-18 | XR_ITS ---
EXAMINATION: XR CHEST CLINICAL INFORMATION: weakness COMPARISON: January 09, 2025. TECHNIQUE: Frontal view of the chest was obtained. FINDINGS: No consolidation, pleural effusion or pneumothorax. No hyperinflation. Cardiomediastinal silhouette size is normal. Osseous structures are intact. Probable old traumatic deformity right clavicle. There is stent in the medial left brachial region. XR/XR chest 1V IMPRESSION: No acute airspace disease. Resolved pulmonary edema Electronically signed by: Dg Rob MD 01/18/2025 01:45 PM EDT
--- NOTE | 2025-01-18 11:42 | ED_ITS ---
HPI - General Adult General Chief complaint: General Medical Stated complaint: AMS,NO DIALYSIS OR MEDS TODAY FROM SNF PER EMS Time Seen by Provider: 01/18/25 11:41 Source: patient, family (patient's step daughter) and EMS Mode of arrival: EMS Limitations: physical limitation (confused) History of Present Illness ED Provider: Marifer Johnson PA-C HPI narrative: 70 year old male with PMHx of ESRD on dialysis (MWF schedule - with BRAULIO matson, follows with Dr. Allen), T2DM, secondary hyperparathyroidism, and HTN, presents to the ED from [facility] due to continuing / worsening confusion and lower extremity weakness / gait abnormality. He states he is very tired and explains he has been having difficulty with keeping his balance. Patient's step daughter was present and explained the patient had a fall 3 days ago (on 01/16/2025) and was seen at [facility] yesterday (01/17/2025) where he had a CT scan done but results were not communicated to family prior to discharge (records reviewed and CT head without contrast was negative). Patient's step daughter also explains he has not been able to ambulate correctly - leaning forward while walking excessively which is new for the patient. She states that he was normal to his baseline and not confused on 01/10/2025 and he has had continued to get worsening delirium / confusion. Patient is alert and oriented to self only, states he thought the year was 2009. He is unable to answer any other questions at this time or further characterize his symptoms. Associated symptoms: confusion (AO to self and place only) and weakness Related Data Home Medications ?Medication ?Instructions ?Recorded ?Confirmed atenolol 100 mg tablet 1 tab PO DAILY 07/11/21 01/09/25 blood sugar diagnostic (FreeStyle 07/11/21 10/30/24 Lite Strips) dextroamphetamine-amphetamine 20 1 tab PO TID@0800,1400,1800 07/11/21 01/09/25 mg tablet levothyroxine 137 mcg tablet 1 tab PO DAILY@0600 07/11/21 01/09/25 pen needle, diabetic 31 gauge x 07/11/21 10/30/24 5/16 (BD Ultra-Fine Short Pen Needle) amlodipine 5 mg tablet 5 mg PO BID 09/03/23 01/09/25 atorvastatin 40 mg tablet 40 mg PO DAILY 02/22/24 01/09/25 sodium zirconium cyclosilicate 10 10 g PO SUTUTHSA@0900 06/19/24 01/09/25 gram oral powder packet (Lokelma) alprazolam 0.5 mg tablet 0.5 mg PO DAILY PRN anxiety attack 10/30/24 01/09/25 alprazolam 2 mg tablet 2 mg PO BID 10/30/24 01/09/25 insulin lispro 100 unit/mL 1 sliding scale dose subcut TIDAC 10/30/24 01/09/25 subcutaneous pen (Humalog KwikPen PRN Blood Glucose (U-100) Insulin) sevelamer carbonate 800 mg tablet 800 mg PO DAILY PRN snack 10/30/24 01/09/25 vitamin D3 25 mcg (1,000 unit)-vit 1 tab PO SUTUTHSA@0900 11/02/24 01/09/25 K2 90 mcg disintegrating tablet losartan 100 mg tablet 100 mg PO DAILY 01/09/25 01/09/25 sevelamer carbonate 800 mg tablet 1,600 mg PO TIDWM 01/09/25 01/09/25 Previous Rx's ?Medication ?Instructions ?Recorded cefuroxime axetil 500 mg tablet 500 mg PO DAILY 3 days #3 tabs 01/11/25 oseltamivir 30 mg capsule 30 mg PO Q48H #3 caps 01/11/25 hydromorphone 4 mg tablet 4 mg PO Q3H PRN Severe Pain (Scale 01/12/25 Score 7-10) #20 tabs Allergies Allergy/AdvReac Type Severity Reaction Status Date / Time Penicillins [PENICILLINS] Allergy Unknown RASH Verified 01/18/25 11:47 tramadol [From ULTRAM] Allergy Unknown RASH Verified 01/18/25 11:47 trazodone [TRAZODONE] Allergy Unknown PRIAPISM Verified 01/18/25 11:47 risperidone [RISPERIDONE] AdvReac Severe dizzy, EPS Verified 01/18/25 11:47 Review of Systems 2 Constitutional: Constitutional: Denies chills, Reports fatigue, Denies fever(s), Denies night sweats and Reports weakness Eyes: Eyes: Reports no additional eye complaints, Denies blurry vision, Denies change in vision, Denies diplopia, Denies eye discharge, Denies loss of vision and Denies eye pain ENT: Denies dizziness Cardiovascular: Cardiovascular: Reports no additional cardiovascular complaints, Denies chest pain, Denies lightheadedness, Denies Loss of Consciousness and Denies dyspnea Respiratory: Respiratory: Reports no additional respiratory complaints and Denies dyspnea Gastrointestinal: Gastrointestinal: Reports no additional gastrointestinal complaints, Denies abdominal pain, Denies melena, Denies hematochezia, Denies change in bowel habits and Denies change in stool character Genitourinary: Genitourinary: Reports no additional male genitourinary complaints, Denies hematuria, Denies oliguria, Denies difficulty urinating, Denies dysuria, Denies urinary frequency, Denies urinary hesitancy, Denies urinary incontinence and Denies urinary urgency Musculoskeletal: Musculoskeletal: Reports no additional musculoskeletal complaints, Reports abnormal gait (leaning forward increasingly), Denies numbness and Denies tingling Neurologic: Reports abnormal gait (leaning forward increasingly), Reports confusion (alert and oriented to self and place only), Denies dizziness, Denies loss of vision, Denies numbness, Denies tingling and Reports weakness Psychiatric: Psychiatric: Reports no additional psychiatric complaints and Reports confusion (alert and oriented to self and place only) Endocrine: Endocrine: Reports no additional endocrine complaints and Reports fatigue Hematologic/Lymphatic: Hematologic/Lymphatic: Reports no additional hematologic/lymphatic complaints Allergic/Immunologic: Allergic/Immunologic: Reports no additional allergic/immunologic complaints PMFSH Past Medical History Attestation statement: The following information was validated with the patient. (Patients step-daughter validated all information) Source: old records reviewed, obtained from family (patient's step daughter provided additional history and confirmed the history provided by the patient. ) and nursing notes reviewed Medical History ESRD needing dialysis End stage kidney disease Secondary hyperparathyroidism (of renal origin) Anemia in chronic kidney disease DONIS (acute kidney injury) End stage renal disease on dialysis Diabetes Kidney failure HTN (hypertension) Social History Social History Household Members: Spouse Housing: House Are you a primary vision care associate to a significant other at home: No Do you presently have visiting nurse or other home services: No Alcohol intake: never Comment: Pt turning off own bed alarm Kasie Pizarro NP aware provide with re- educa Patient Tobacco Use Status: Never used Tobacco Cigarette Packs Per Day: 0 Cigarettes Per Day: 0.0 Years Smoked: NA Smoked in Last 30 Days: No e-Cigarette/Vaping Use: Never Used Second Hand Smoke Exposure: No Use of substances other than those prescribed or required for medical reasons: No Advance Directives: Yes Advance Directives on File: Yes Advance Directives Date on File: 09/07/23 Do you have a plan to hurt others: No Plan service: No Physical Exam ED Vital Signs: Vital Signs - 24 hr 01/18/25 11:44 01/18/25 12:00 01/18/25 14:00 Temperature 97.5 F 97.5 F Pulse Rate 51 51 53 Respiratory Rate 20 16 18 Blood Pressure 150/63 H 150/63 H 150/63 H Pulse Oximetry 100 100 96 Oxygen Delivery Method Room Air Room Air Room Air 01/18/25 15:58 01/18/25 16:00 Temperature 97.4 F 97.4 F Pulse Rate 53 53 Respiratory Rate 17 17 Blood Pressure 143/64 H 143/64 H Pulse Oximetry 99 99 Oxygen Delivery Method Room Air Room Air BMI result Body Mass Index 31.0 Const General: no acute distress, confusion (alert and oriented to self and place only) and tired appearing Nutritional Appearance: average body habitus Orientation/consciousness: oriented to person, oriented to place and confusion (alert and oriented to self and place only) Limitations: no limitations and physical limitations (lower extremity weakness, loss of balance ) [facility] Head: Yes normal to inspection and Yes atraumatic Ears: hearing grossly normal bilaterally and external ears normal General nose exam: Normal external nose present, no nasal discharge noted and no epistaxis Face and sinus: Yes normal facial exam, No abrasion and No laceration Mouth: Normal oral and palatal mucosa present, no drooling and no muffled voice Eyes General: appearance normal, both eyes and all related structures Periorbital: periorbital findings normal Eyelids: Yes eyelids normal Conjunctivae: conjunctivae normal Pupils: Equal, round and reactive pupils present EOM: EOMs intact bilaterally Neck Neck: Yes normal visual inspection, Yes full ROM and Yes no lymphadenopathy Chest Chest palpation & inspection: normal inspection of the chest Resp Effort & Inspection: normal respiratory effort and able to speak in complete sentences GI Inspection: Yes normal to inspection Neuro General: oriented to person, oriented to place and confusion (alert and oriented to self and place only) Cranial nerves: Yes Equal, round and reactive pupils present Cognition (Neuro): normal cognition Extrem Other: LUE graft present General: Yes normal to inspection, Yes full ROM and Yes capillary refill normal Psych Appearance: grossly normal Mental Status: mental status grossly normal Affect: normal affect Attitude: cooperative Thought process: Normal thought process present Thought content: Normal thought content present Medications Administered Discontinued Medications Generic Name Dose Route Start Last Admin Trade Name Flakito PRN Reason Stop Dose Admin Sodium Zirconium Cyclosilicate 10 gm 01/18/25 14:26 01/18/25 15:22 Sodium Zirconium Cyclosilicate 10 Gm Powd.Pack PO 01/18/25 14:27 10 gm ONCE ONE Administration Medical Decision Making Medical Decision Making MDM Narrative: 70 year old male with PMHx of ESRD on dialysis (MWF schedule - with LUE graft, follows with Dr. Allen), T2DM, secondary hyperparathyroidism, and HTN, presents to the ED from [facility] due to continuing / worsening confusion and lower extremity weakness / gait abnormality. Blood work shows elevated white count of 11.2, serum ammonia slightly elevated at 59 umol/L, magnesium of 2.7 mg/dL, potassium elevated at 5.4 mmol/L, sodium of 127 mmol/L, creatinine elevated at 9.34, BUN of 96, calcium of 7.8, and an albumin of 3.2. Flu swab positive for Flu A however - the patient was positive for this on 01/07/2025 and it is likely that he has not cleared the initial infection. EKG revealed bradycardia at 57 BMP with no other abnormalities. CT head shows no acute abnormality. Chest XR showed no acute process and resolved pulmonary edema. 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 Allen was consulted and suggested giving 10 grams of Lokelma now with a repeat dose this evening and having the patient be dialyzed tomorrow. Patient's clinical presentation is most consistent with new / worsening gait abnormality, continued / worsening confusion vs. delirium, and ESRD requiring dialysis. Given the patient's new / worsening gait abnormality - I'm concerned for a neurological process. MRI and neurological consult ordered. I spoke with the hospitalist team who agreed to admission. Differential Diagnosis Differential Diagnoses: The differential diagnosis associated with the presentation includes Hyperkalemia Parkinson's Abnormal gait Delirium Encephalopathy Rhabdomyolysis Hyponatremia Hyperuricemia Neurosyphilis Hypothyroidism Admission/Observation Consideration of admission/observation: Escalation of care including admission/observation considered Patient admitted as noted in the MDM rationale portion of this note. Consult Healthcare Provider Management of the patient was discussed with: Hospitalist (Agreed to admission as noted in the MDM Rationale portion of this note. ) and Thread Drawer (Spoke to the programmer business as noted in the MDM Rationale portion of this note. ) Lab Data [facility] Lab Attestation statement: I reviewed the patient's lab results. My interpretation of these results are in the MDM Rationale portion of this note. 01/18/25 12:50 01/18/25 12:49 Labs: Lab Results 01/18/25 01/18/25 01/18/25 Range/Units 11:50 12:49 12:50 WBC 11.2 H (4.8-10.8) X10*3/uL RBC 3.58 L (4.60-5.80) X10*6/uL Hgb 11.0 L (14.0-18.0) g/dl Hct 30.8 L (42.0-52.0) % MCV 86.0 (80.0-98.0) fL MCH 30.7 (27.0-33.0) pg MCHC 35.7 (31.0-36.0) g/dl RDW 14.3 (11.0-16.0) % Plt Count 265 D (160-400) X10*3/uL MPV 10.4 (9.4-12.4) fL Immature Gran % (Auto) 1.2 H (0.0-0.4) % Neut % (Auto) 70.1 (45-73) % Lymph % (Auto) 12.1 L (20-40) % Nolan % (Auto) 16.3 H (2-11) % Eos % (Auto) 0.1 (0-4) % Baso % (Auto) 0.2 (0-2) % Lymph # (Auto) 1.4 (1.2-4.9) X10*3/uL Nolan # (Auto) 1.8 H (0.1-1.2) X10*3/uL Eos # (Auto) 0.0 (0.0-0.4) X10*3/uL Baso # (Auto) 0.0 (0.0-0.2) X10*3/uL Abs Immat Gran (auto) 0.13 H (0.00-0.03) X10*3/uL Absolute Neuts (auto) 7.8 (2.0-8.3) x10*3/uL Absolute Nucleated RBC 0.000 (0.0-0.012) X10*3/uL Nucleated RBC % (auto) 0.0 (0.0-0.2) /100WBC Smear Tech's Comments VERIFIED Sodium 127 L (135-145) mmol/L Potassium 5.4 H (3.3-5.1) mmol/L Chloride 92 L (96-108) mmol/L Carbon Dioxide 21 L (22-29) mmol/L Anion Gap 19 (12-20) BUN 96 H (9-16) mg/dL Creatinine 9.34 H* (0.5-1.4) mg/dL Estim Creat Clear Calc 7.5 Estimated GFR 6 POC Glucose 133 H (60-115) mg/dL Random Glucose 148 H (60-115) mg/dL Calcium 7.8 L D (8.4-10.2) mg/dL Magnesium 2.7 H (1.6-2.6) mg/dL Total Bilirubin 0.5 (0.0-1.0) mg/dL AST 18 (5-37) U/L ALT 17 (0-40) U/L Alkaline Phosphatase 51 (39-117) U/L Ammonia 59 H (13-55) umol/L Total Protein 5.6 L (6.5-8.0) g/dL Albumin 3.2 L (3.5-5.0) g/dL TSH 3.61 (0.32-4.0) uIU/mL T.pallidum Ab (EIA) Nonreactive (Nonreactive) Influenza Type A (PCR) POSITIVE A (Negative) Influenza Type B (PCR) NEGATIVE (Negative) RSV RNA Qual (PCR) NEGATIVE (Negative) SARS-CoV-2 RNA (RT-PCR) NEGATIVE (Negative) Independent Interpretation I performed an independent interpretation of an: EKG, Plain X-Ray (chest) and CT Scan (brain/head) Interpretation: My interpretation is in agreement with the radiologist's impression of these imaging studies. L Report Number: [id number]: Total DLP = 712.00 mGy-cm EXAMINATION: CT HEAD WITHOUT IV CONTRAST HISTORY: confusion. TECHNIQUE: Unenhanced helical CT of the head was performed per standard departmental protocol. Coronal and sagittal reformats of the head were also evaluated. One or more of the following techniques was used for dose reduction: Automated exposure control, adjustment of the mA and/or kV according to patient size, use of iterative reconstruction technique. DLP: 712 mGy-cm COMPARISON: Comparison is made with the prior examination dated 01/09/2025. FINDINGS: BRAIN: There is diffuse prominence of the ventricular system and cortical sulci, consistent with atrophy. Periventricular and subcortical white matter hypodensities are noted which are nonspecific, but often seen in the setting of small vessel ischemic disease. There is no mass effect or midline shift. No intra- or extra-axial fluid collections are identified. SINUSES: The visualized paranasal sinuses are clear. The mastoid air cells and middle ear cavities are well pneumatized. ORBITS: The visualized orbits are unremarkable. BONES/SOFT TISSUES: The extracranial soft tissues are unremarkable. The calvarium is intact. No suspicious lytic or sclerotic lesions. CT/CT head/brain wo IV con IMPRESSION: No acute intracranial abnormality. Electronically signed by: Ferdinand Love MD 01/18/2025 01:58 PM EDT Dictated By: Ferdinand Love MD Signed By: Electronically signed by Ferdinand Love MD 01/18/25 1358 I independently interpreted this EKG and am in agreement with the below findings: Vent. Rate: 57 BPM Atrial Rate: 57 BPM P-R Int: 152 ms QRS Dur: 86 ms QT Int: 492 ms P-R-T Axes: 70 24 41 degrees QTcB Int: 478 ms Sinus bradycardia Otherwise normal ECG When compared with ECG of 09-Jan-2025 09:03, QRS axis Shifted right DD/ 1155 Radiology Impression Discussion of test interpretation with radiology: I have reviewed the radiologist's reading. Independent Historian Clinical information obtained from an independent historian. History obtained from or confirmed by: EMS (EMS provided additional history and confirmed the history provided by the patient) and Other (Step-daughter provided patient information and was confirmed with patient.) External Record Review External record reviewed: Inpatient record Chronic Conditions Patient?s care impacted by: Diabetes, Hypertension and Other (ESRD) Critical Care Time Critical Care Time Total Critical Care Time: 34 Discharge Plan Discharge Clinical Impression: ESRD needing dialysis, Abnormality of gait, Intermittent confusion Patient Disposition: Admitted As Inpatient Prescriptions: No Action levothyroxine 137 mcg tablet 1 tab PO DAILY@0600 atenolol 100 mg tablet 1 tab PO DAILY (DME) FreeStyle Lite Strips Strip MISCELLANEOUS TID dextroamphetamine-amphetamine 20 mg tablet 1 tab PO TID@0800,1400,1800 (DME) pen needle, diabetic [BD Ultra-Fine Short Pen Needle] 31 gauge x 5/16 needle subcut DAILY Lokelma 10 gram Powder In Packet 10 g PO SUTUTHSA@0900 Rx Instructions: on non dialysis days vitamin D3-vitamin K2 25 mcg (1,000 unit)-90 mcg Tablet,Disintegrating 1 tab PO SUTUTHSA@0900 losartan 100 mg tablet 100 mg PO DAILY sevelamer carbonate 800 mg tablet 1,600 mg PO TIDWM oseltamivir 30 mg Capsule 30 mg PO Q48H Qty: 3 0RF cefuroxime axetil 500 mg tablet 500 mg PO DAILY 3 Days Qty: 3 0RF hydromorphone 4 mg tablet 4 mg PO Q3H PRN (Reason: Severe Pain (Scale Score 7-10)) Qty: 20 0RF amlodipine 5 mg tablet 5 mg PO BID atorvastatin 40 mg tablet 40 mg PO DAILY alprazolam 0.5 mg tablet 0.5 mg PO DAILY PRN (Reason: anxiety attack) alprazolam 2 mg tablet 2 mg PO BID sevelamer carbonate 800 mg tablet 800 mg PO DAILY PRN (Reason: snack) insulin lispro [Humalog KwikPen Insulin] 100 unit/mL insulin pen 1 sliding scale dose subcut TIDAC PRN (Reason: Blood Glucose) Print Language: Danish
[2025-01-18 11:53] LABS: Glucose, Whole Blood 133 mg/dL (60-115)
--- NOTE | 2025-01-18 11:55 | ECG_ITS ---
Test Reason : AMS Blood Pressure : */* mmHG Vent. Rate : 57 BPM Atrial Rate : 57 BPM P-R Int : 152 ms QRS Dur : 86 ms QT Int : 492 ms P-R-T Axes : 70 24 41 degrees QTcB Int : 478 ms Sinus bradycardia Otherwise normal ECG When compared with ECG of 09-Jan-2025 09:03, QRS axis Shifted right Referred By: Marifer Johnson Electronically Signed By: HOA KLEIN
[2025-01-18 12:59] LABS: Basophils Percent Auto 0.2 % (0-2); Eosinophils Percent Auto 0.1 % (0-4); Hematocrit 30.8 % (42.0-52.0); Imm Gran Abs Auto 0.13 X10*3/uL (0.00-0.03); Imm Gran Pct Auto 1.2 % (0.0-0.4); Lymphocytes Absolute Auto 1.4 X10*3/uL (1.2-4.9); Lymphocytes Percent Auto 12.1 % (20-40); MANUAL DIFF FLAG SCAN; Mean Corpuscular HGB Conc 35.7 g/dl (31.0-36.0); Mean Corpuscular Hemoglobin 30.7 pg (27.0-33.0); Mean Platelet Volume 10.4 fL (9.4-12.4); Monocytes Absolute Auto 1.8 X10*3/uL (0.1-1.2); Monocytes Percent Auto 16.3 % (2-11); Neutrophils Absolute Auto 7.8 x10*3/uL (2.0-8.3); Neutrophils Percent Auto 70.1 % (45-73); Platelet Count 265 X10*3/uL (160-400); Red Blood Count 3.58 X10*6/uL (4.60-5.80); Red Cell Distribution Width 14.3 % (11.0-16.0); SCAN SMEAR FLAG 1; White Blood Count 11.2 X10*3/uL (4.8-10.8)
[2025-01-18 13:03] LABS: Ammonia 59 umol/L (13-55)
[2025-01-18 13:22] LABS: Alanine Aminotransferase 17 U/L (0-40); Albumin Level 3.2 g/dL (3.5-5.0); Alkaline Phosphatase 51 U/L (39-117); Anion Gap 19 (12-20); Aspartate Amino Transferase 18 U/L (5-37); Bilirubin Total 0.5 mg/dL (0.0-1.0); Blood Urea Nitrogen 96 mg/dL (9-16); Calcium 7.8 mg/dL (8.4-10.2); Carbon Dioxide 21 mmol/L (22-29); Chloride 92 mmol/L (96-108); Creatinine Clr Calc Pharmacy 7.5; Estimated Glomerular Filt Rate 6; Glucose Random 148 mg/dL (60-115); Magnesium 2.7 mg/dL (1.6-2.6); Potassium 5.4 mmol/L (3.3-5.1); Sodium 127 mmol/L (135-145); Total Protein 5.6 g/dL (6.5-8.0)
[2025-01-18 13:32] LABS: Influenza A PCR POSITIVE (Negative); Influenza B PCR NEGATIVE (Negative); Resp Syncy Virus RNA Qual PCR NEGATIVE (Negative); SARS COV2 PCR INHOUSE NEGATIVE (Negative)
[2025-01-18 13:43] LABS: Syphilis Screen Nonreactive (Nonreactive)
[2025-01-18 13:57] LABS: TSH reflex Free T4 3.61 uIU/mL (0.32-4.0)
[2025-01-18 13:59] LABS: SLIDE REVIEW VERIFIED
--- OUTSIDE RECORDS SUMMARY | 2025-01-18 14:37 | XMS_ITS | Clinical Summary ---
Author Organization 299 [facility] Address [address] [place] [address] Phone Care Team Providers Care Insights Manager Name Role Phone Yulia Smart MD Primary Care Provider [phone] Encounters Date Type Department Care Team Description 01/18/2025 Lab Requisition [facility] [address] [place] [phone] Yulia Smart MD Encounter for other general examination 01/14/2025 Lab Requisition [facility] [address] [place] [phone] Yulia Smart MD Encounter for other general examination 01/13/2025 Lab Requisition [facility] [address] [place] [phone] Yulia Smart MD Encounter for other general examination from Last 3 Months Social History Tobacco Use Types Packs/Day Years Used Date Smoking Tobacco: Never Assessed Sex and Gender Information Value Date Recorded Sex Assigned at Not on file Legal Sex Male 12:18 AM EST Gender Identity Not on file Sexual Orientation Not on file Plan of Treatment Health Maintenance Due Date Last Done Comments Diabetes: Annual Foot Exam 01/04/1964 Diabetes: Annual Retina Eye Exam 01/04/1964 Zoster Vaccines (1 of 2) 01/04/2004 RSV Immunization Adult Patients (1 - Risk 60-74 years 1-dose series) 2014 DTaP,Tdap,and Td Vaccines (2 - Td or Tdap) 04/13/2020 04/13/2010 Cholesterol Screening (Lipid Panel) 09/21/2022 Colorectal Cancer Screening: Colonoscopy 09/21/2022 Depression Screening 09/21/2022 Falls Risk Assessment 09/21/2022 Hepatitis C Screening 09/21/2022 Medicare Annual Wellness Visit 09/21/2022 Social Influencers of Health Screening 09/21/2022 COVID-19 Vaccine ( season) 2024 08/01/2022, 09/16/2021, 02/13/2021 Diabetes: Annual Urine Albumin-Creatinine Ratio (uACR) 01/13/2025 Diabetes: Blood Sugar Control Test (HGBA1C) 07/16/2025 01/13/2025 Diabetes: Annual GFR (Glomerular Filtration Rate) 01/18/2026 01/18/2025, 01/13/2025 Hypertension/CHF/CAD Annual BMP Blood Test 01/18/2026 01/18/2025, 01/13/2025 Pneumococcal Vaccine: 50+ Years Completed 09/09/2021, 09/21/2020, 08/21/2010 Influenza Vaccine Completed 06/20/2024, , 09/09/2021, Additional history exists HIB Vaccines Aged Out No longer eligi ble based on patient's age to complete this topic HPV Vaccines Aged Out No longer eligi ble based on patient's age to complete this topic Hepatitis A Vaccines Aged Out No long er eligible based on patient's age to complete this topic Hepatitis B Vaccines Aged Out No long er eligible based on patient's age to complete this topic IPV Vaccines Aged Out No longer eligi ble based on patient's age to complete this topic MMR Vaccines Aged Out No longer eligi ble based on patient's age to complete this topic Meningococcal ACWY Vaccine Aged Out N o longer eligible based on patient's age to complete this topic Meningococcal B Vacine Aged Out No lo nger eligible based on patient's age to complete this topic RSV Immunization Patients Under 20 months Aged Out No longer eligible based on patient's age to complete this topic Varicella Vaccines Aged Out No longer eligible based on patient's age to complete this topic Procedures Procedure Name Priority Date/Time Associated Diagnosis Comments CBC WITH AUTO DIFFERENTIAL Routine 01/18/2025 5:06 AM EDT Encounter for other general examination AMMONIA Routine 01/18/2025 5:06 AM EDT Encounter for other general examination THYROID STIMULATING HORMONE Routine 01/18/2025 5:06 AM EDT Encounter for other general examination CBC AND DIFFERENTIAL Routine 01/18/2025 5:06 AM EDT Encounter for other general examination VITAMIN B12 Routine 01/18/2025 5:06 AM EDT Encounter for other general examination COMPREHENSIVE METABOLIC PANEL Routine 01/18/2025 5:06 AM EDT Encounter for other general examination PHOSPHORUS Routine 01/14/2025 5:58 AM EDT Encounter for other general examination CBC WITH AUTO DIFFERENTIAL Routine 01/13/2025 5:26 AM EDT Encounter for other general examination MAGNESIUM Routine 01/13/2025 5:26 AM EDT Encounter for other general examination HEMOGLOBIN A1C Routine 01/13/2025 5:26 AM EDT Encounter for other general examination CBC AND DIFFERENTIAL Routine 01/13/2025 5:26 AM EDT Encounter for other general examination COMPREHENSIVE METABOLIC PANEL Routine 01/13/2025 5:26 AM EDT Encounter for other general examination from Last 3 Months Results * (ABNORMAL) CBC auto differential (01/18/2025 5:06 AM EDT) Only the most recent of2 resultswithin the time period is included. WBC 9.9 4.8 - 10.8 K/mcL LAB HEMETOLOGY METHOD 01/18/2025 7:10 AM EDT [facility] RBC 3.10(L) 4.50 - 5.50 [facility] LAB HEMETOLOGY METHOD 01/18/2025 7:10 AM EDT [facility] LAB Hemoglobin 9.5(L) 13.5 - 17.5 g/dL LAB HEMETOLOGY METHOD 01/18/2025 7:10 AM EDT [facility] LAB Hematocrit 27.0(L) 42.0 - 54.0 % LAB HEMETOLOGY METHOD 01/18/2025 7:10 AM [facility] LAB MCV 87.1 79.0 - 98.0 FL LAB HEMETOLOGY METHOD 01/18/2025 7:10 AM [facility] LAB MCH 30.6 27.0 - 32.0 pcg LAB HEMETOLOGY METHOD 01/18/2025 7:10 AM [facility] LAB MCHC 35.2 32.0 - 37.0 g/dL LAB HEMETOLOGY METHOD 01/18/2025 7:10 AM [facility] RDW 14.3 11.0 - 15.0 % LAB HEMETOLOGY METHOD 01/18/2025 7:10 AM [facility] Platelets 251 130 - 400 K/mcL LAB HEMETOLOGY METHOD 01/18/2025 7:10 AM [facility] LAB MPV 11.1(H) 7.0 - 11.0 FL LAB HEMETOLOGY METHOD 01/18/2025 7:10 AM [facility] LAB NRBC 0.0 <1.0 % LAB HEMETOLOGY METHOD 01/18/2025 7:10 AM [facility] LAB NRBC Absolute 0.00 <0.10 K/mcL LAB HEMETOLOGY METHOD 01/18/2025 7:10 AM [facility] LAB Neutrophils Relative 77.1 % LAB HEMETOLOGY METHOD 01/18/2025 7:10 AM [facility] LAB Lymphocytes Relative 8.3 % LAB HEMETOLOGY METHOD 01/18/2025 7:10 AM [facility] Monocytes Relative 13.5 % LAB HEMETOLOGY METHOD 01/18/2025 7:10 AM [facility] LAB Eosinophils Relative 0.0 % LAB HEMETOLOGY METHOD 01/18/2025 7:10 AM EDT [facility] LAB Basophils Relative 0.0 % LAB HEMETOLOGY METHOD 01/18/2025 7:10 AM EDT [facility] LAB Immature Granulocytes Relative 1.1 % LAB HEMETOLOGY METHOD 01/18/2025 7:10 AM EDT [facility] LAB Neutrophils Absolute 7.61(H) 1.50 - 7.00 K/mcL LAB HEMETOLOGY METHOD 01/18/2025 7:10 AM EDT [facility] LAB Lymphocytes Absolute 0.82(L) 1.00 - 5.00 K/mcL LAB HEMETOLOGY METHOD 01/18/2025 7:10 AM EDT [facility] LAB Monocytes Absolute 1.33(H) 0.20 - 1.00 K/mcL LAB HEMETOLOGY METHOD 01/18/2025 7:10 AM EDT [facility] LAB Eosinophils Absolute 0.00 0.00 - 0.50 K/mcL LAB HEMETOLOGY METHOD 01/18/2025 7:10 AM EDT [facility] Basophils Absolute 0.00 0.00 - 0.20 K/mcL LAB HEMETOLOGY METHOD 01/18/2025 7:10 AM EDT [facility] LAB Immature Granulocytes Absolute 0.11(H) 0.00 - 0.03 K/mcL LAB HEMETOLOGY METHOD 01/18/2025 7:10 AM EDT [facility] LAB Blood Venous blood specimen / Unknown Venipuncture / Unknown 01/18/2025 5:06 AM EDT 01/18/2025 6:20 AM EDT us Yulia Smart MD LAB BLOOD ORDERABLES Final Resu lt [facility] [address] [place] [address], * Thyroid stimulating hormone (01/18/2025 5:06 AM EDT) TSH 1.94 0.40 - 4.00 mcIU/mL LAB CHEMISTRY METHOD 01/18/2025 9:08 AM EDT [facility] Blood Venous blood specimen / Unknown Venipuncture / Unknown 01/18/2025 5:06 AM EDT 01/18/2025 6:20 AM EDT us Yulia Smart MD LAB BLOOD ORDERABLES Final Resu lt Performing Organization Address [facility] de Phone Number [facility] [address] [place] [address], [place] [phone] * (ABNORMAL) Vitamin B12 (01/18/2025 5:06 AM EDT) [facility] Vitamin B-12 1,241(H) 250 - 900 pcg/mL LAB CHEMISTRY METHOD 01/18/2025 7:36 AM EDT [facility] Blood Venous blood specimen / Unknown Venipuncture / Unknown 01/18/2025 5:06 AM EDT 01/18/2025 6:20 AM EDT us Yulia Smart MD LAB BLOOD ORDERABLES Final Resu lt Performing Organization Address [facility] de Phone Number [facility] [address] [place] [address], [place] [phone] * Ammonia (01/18/2025 5:06 AM EDT) [facility] Ammonia 28 11 - 35 mcmol/L LAB CHEMISTRY METHOD 01/18/2025 6:53 AM EDT [facility] LAB Blood Venous blood specimen / Unknown Venipuncture / Unknown 01/18/2025 5:06 AM EDT 01/18/2025 6:20 AM EDT us Yulia Smart MD LAB BLOOD ORDERABLES Final Resu lt [facility] [address] [place] [address], * (ABNORMAL) Comprehensive metabolic panel (01/18/2025 5:06 AM EDT) Only the most recent of2 resultswithin the time period is included. Sodium 123(L) 133 - 145 mmol/L LAB CHEMISTRY METHOD 01/18/2025 7:56 AM [facility] Potassium 5.2 3.5 - 5.5 mmol/L LAB CHEMISTRY METHOD [facility] Chloride 89(L) 96 - 110 mmol/L LAB CHEMISTRY METHOD 01/18/2025 7:56 AM [facility] CO2 21 21 - 32 mmol/L LAB CHEMISTRY METHOD 01/18/2025 7:56 AM [facility] Anion Gap 13(H) 3 - 11 LAB CHEMISTRY METHOD 01/18/2025 7:56 AM [facility] Glucose 174(H) 70 - 100 mg/dL LAB CHEMISTRY METHOD 01/18/2025 7:56 AM [facility] BUN 96(H) 5 - 25 mg/dL LAB CHEMISTRY METHOD 01/18/2025 7:56 AM [facility] Creatinine 9.44(H) 0.70 - 1.30 mg/dL LAB CHEMISTRY METHOD 01/18/2025 7:56 AM [facility] eGFR 5(L) >=60 mL/min/1. 73m2 LAB CHEMISTRY METHOD 01/18/2025 7:56 AM [facility] LAB Comment:Calculation based on the??Chronic Kidney Disease Epidemiology Collaboration (CKD-EPI) equation refit??without adjustment for race. BUN/Creatinine Ratio 10.2 LAB CHEMISTRY METHOD 01/18/2025 7:56 AM [facility] Calcium 7.8(L) 8.5 - 10.5 mg/dL LAB CHEMISTRY METHOD 01/18/2025 7:56 AM EDT [facility] AST (SGOT) 13 10 - 42 unit/L LAB CHEMISTRY METHOD 01/18/2025 7:56 AM [facility] Comment:Results verified by repeat testing ALT (SGPT) 21 10 - 60 unit/L LAB CHEMISTRY METHOD 01/18/2025 7:56 AM EDT [facility] Alkaline Phosphatase 52 42 - 121 unit/L LAB CHE[facility]STRY METHOD [facility] Total Protein 5.3(L) 6.0 - 8.0 g/dL LAB CHEMISTRY METHOD 01/18/2025 7:56 AM [facility] Albumin 2.6(L) 3.2 - 5.0 g/dL LAB CHEMISTRY METHOD 01/18/2025 7:56 AM [facility] Total Bilirubin 1.0 0.0 - 1.4 mg/dL LAB CHEMISTRY METHOD 01/18/2025 7:56 AM [facility] Comment:Results verified by repeat testing Blood Venous blood specimen / Unknown Venipuncture / Unknown 01/18/2025 5:06 AM EDT 01/18/2025 6:20 AM EDT us Yulia Smart MD LAB BLOOD ORDERABLES Final Resu lt [facility] [address] [place] [address], * (ABNORMAL) Phosphorus (01/14/2025 5:58 AM EDT) [facility] Signature Phosphorus 5.6(H) 2.5 - 4.5 mg/dL LAB CHEMISTRY METHOD 01/14/2025 12:17 PM EDT [facility] LAB Blood Venous blood specimen / Unknown Venipuncture / Unknown 01/14/2025 5:58 AM EDT 01/14/2025 9:53 AM EDT us Yulia Smart MD LAB BLOOD ORDERABLES Final Resu lt Performing Organization Address City/[facility]/ZIP Co de Phone Number [facility] [address] [place] [address], [place] [phone] * (ABNORMAL) Magnesium (01/13/2025 5:26 AM EDT) [facility] Magnesium 1.8(L) 1.9 - 2.6 mg/dL LAB CHEMISTRY METHOD 01/13/2025 12:11 PM EDT [facility] LAB Blood Venous blood specimen / Unknown Venipuncture / Unknown 01/13/2025 5:26 AM EDT 01/13/2025 10:00 AM EDT us Yulia Smart MD LAB BLOOD ORDERABLES Final Resu lt Performing Organization Address [facility] Co de Phone Number [facility] [address] [place] [address], [place] [phone] * Hemoglobin A1c (01/13/2025 5:26 AM EDT) [facility] Hemoglobin A1C 5.6 <6.5 % LAB CHEMISTRY METHOD 01/13/2025 12:43 PM EDT [facility] Mean Bld Glu Estim. 114 mg/dL LAB CHEMISTRY METHOD 01/13/2025 12:43 PM EDT [facility] Blood Venous blood specimen / Unknown Venipuncture / Unknown 01/13/2025 5:26 AM EDT 01/13/2025 10:00 AM EDT us Yulia Smart MD LAB BLOOD ORDERABLES Final Resu lt Performing Organization Address City/[facility]/ZIP Co de Phone Number [facility] [address] [place] [address], [place] [phone] from Last [address] [facility] [place] [address] MEDICARE Care Teams Insights Manager Relationship Specialty Start Date End Date Yulia Smart MD [address] [place] [id number] PCP - General Hospitalist Medicine 01/13/25
--- OUTSIDE RECORDS SUMMARY | 2025-01-18 14:37 | XMS_ITS | Encounter Summary ---
Author Organization [facility] Address [address] [place] [address] Phone Care Team Providers Care Double Spindle Shaper Operator Name Role Phone Matias Tan MD Primary Care Provider [phone]- [phone] Reason for Visit * Reason Comments Med Refill Encounter Details Date Type Department Care Team (Late st Contact Info) Description 06/24/2022 Refill [facility] [place], [address] [place] [phone] Guanako Mercer MD [address] [place] [phone] Social History Tobacco Use Types Packs/Day Years Used Date Smoking Tobacco: Never Alcohol Use Standard Drinks/Week Comments Yes 1 (1 standard drink = 0.6 oz pur e alcohol) AUDIT-C Answer Date Recorded Frequency of Alcohol Consumption Not on file 11/30/2019 Q2: How many drinks containi ng alcohol do you have on a typical day when you are drinking? 1 or 2 11/30/2019 Frequency of Binge Drinking Not on file 11/19 Sex and Gender Information Value Date Recorded Sex Assigned at Male 03/20/2022 11:18 AM EDT Legal Sex Male 3:56 PM EST Gender Identity Male 03/20/2022 11:18 AM EDT Sexual Orientation Straight 03/20/2022 11 :18 AM EDT documented as of this encounter Plan of Treatment Upcoming Encounters Date Type Department Care Team (Late st Contact Info) Description 03/07/2025 9:00 AM EDT Procedure visit [facility] [address] [place] [phone] documented as of this encounter Visit Diagnoses Not on filedocumented in this encounter Care Teams Double Spindle Shaper Operator Relationship Specialty Start Date End Date Matias Tan MD [address] [place] [address] PCP - General Family Medicine 10/24/19 documented as of this encounter
--- OUTSIDE RECORDS SUMMARY | 2025-01-18 14:37 | XMS_ITS | Encounter Summary ---
Author Organization [facility] [place], Address [address] [place] [address] Phone Care Team Providers Care Bead Filler Name Role Phone Matias Tan MD Primary Care Provider [phone]- [phone] Reason for Visit * Reason Comments Med Refill Encounter Details Date Type Department Care Team (Late st Contact Info) Description 09/25/2023 Refill [facility] [address] [place] [phone] Denys Mueller MD [address] [place] [address] Social History Tobacco Use Types Packs/Day Years Used Date Smoking Tobacco: Never Alcohol Use Standard Drinks/Week Comments Not Currently 1 (1 standard drink = 0.6 oz [...] visit [facility] [address] [place] [phone] documented as of this encounter Visit Diagnoses Not on filedocumented in this encounter Care Teams Bead Filler Relationship Specialty Start Date End Date Matias Tan MD [address] [place] [address] PCP - General Family Medicine 10/24/19 documented as of this encounter
--- OUTSIDE RECORDS SUMMARY | 2025-01-18 14:37 | XMS_ITS | Encounter Summary ---
Author Organization [facility], Address [address] [place] [address] Phone Care Team Providers Care Forestry Fire Aide Name Role Phone Matias Tan MD Primary Care Provider [phone]- [phone] Reason for Visit * Reason Onset Date Comments Med Refill 06/24/2022 Encounter Details Date Type Department Care Team (Late st Contact Info) Description 06/24/2022 Refill [facility], [address] [place] [phone] Guanako Mercer MD [address] [place] [phone] Social History Tobacco Use Types Packs/Day Years [...] visit [facility] [place] [address] [place] [phone] documented as of this encounter Visit Diagnoses Not on filedocumented in this encounter Care Teams Forestry Fire Aide Relationship Specialty Start Date End Date Matias Tan MD [address] [place] [address] PCP - General Family Medicine 10/24/19 documented as of this encounter
--- OUTSIDE RECORDS SUMMARY | 2025-01-18 14:37 | XMS_ITS | Encounter Summary ---
Author Organization [facility] [place], Address [address] [place] [address] Phone Care Team Providers Care Community Health Coordinator Name Role Phone Matias Tan MD Primary Care Provider +1- [phone] Reason for Visit * Reason Onset Date Comments Med Refill 06/20/2022 Encounter Details Date Type Department Care Team (Late st Contact Info) Description 06/20/2022 Refill [facility], [address] [place] [phone] Guanako Mercer MD [address] [place] [phone] Social History Tobacco Use Types Packs/Day Years [...] Orientation Straight 03/20/2022 11 :18 AM EDT COVID-19 Exposure Response Date Recorded In the last 10 days, have yo u been in contact with someone who was confirmed or suspected to have Coronavirus/COVID-19? No / Unsure 05/21/2022 11:00 AM EDT documented as of this encounter Plan of Treatment Upcoming Encounters Date Type Department Care Team (Late st Contact Info) Description 03/07/2025 9:00 AM EDT Procedure visit [facility] [place] [address] [place] [address] documented as of this encounter Visit Diagnoses Not on filedocumented in this encounter Care Teams Community Health Coordinator Relationship Specialty Start Date End Date Matias Tan MD [address] [facility] [place] [address] PCP - General Family Medicine 10/24/19 documented as of this encounter
--- OUTSIDE RECORDS SUMMARY | 2025-01-18 14:37 | XMS_ITS | Encounter Summary ---
Author Organization [facility] [place], Address [address] [place] [address] Phone Care Team Providers Care Fire Patroller Name Role Phone Matias Tan MD Primary Care Provider +1- [phone] Encounter Details Date Type Department Care Team (Late st Contact Info) Description 01/10/2022 Documentation Only [facility] [place], [address] [place] [phone] [address] [place] [address] Social History Tobacco Use Types Packs/Day Years [...] visit [facility] [place] [address] [place] [phone] documented as of this encounter Visit Diagnoses Not on filedocumented in this encounter Care Teams Fire Patroller Relationship Specialty Start Date End Date Matias Tan MD [address] [place] [address] PCP - General Family Medicine 10/24/19 documented as of this encounter
--- OUTSIDE RECORDS SUMMARY | 2025-01-18 14:37 | XMS_ITS | Encounter Summary ---
Author Organization [facility] [place], Address [address] [place] [address] Phone Care Team Providers Care Lead Person Name Role Phone Matias Tan MD Primary Care Provider +1- [phone] Reason for Visit * Reason Comments Med Refill Encounter Details Date Type Department Care Team (Late st Contact Info) Description 09/24/2023 Refill [facility] [address] [place] [phone] Denys Mueller MD [address] [place] [address] Social History Tobacco Use Types [...] visit [facility] [place] [address] [place] [phone] documented as of this encounter Visit Diagnoses Not on filedocumented in this encounter Care Teams Lead Person Relationship Specialty Start Date End Date Matias Tan MD [address] [place] [address] PCP - General Family Medicine 10/24/19 documented as of this encounter
--- OUTSIDE RECORDS SUMMARY | 2025-01-18 14:37 | XMS_ITS | Encounter Summary ---
Author Organization [facility], Address [address] [place] [address] Phone Care Team Providers Care Peoplesoft Crm Developer Name Role Phone Matias Tan MD Primary Care Provider +1- [phone] Reason for Visit * Reason Comments Med Refill Encounter Details Date Type Department Care Team (Late st Contact Info) Description 09/24/2023 Refill [facility] [address] [place] [address] Gabriela Hernandez PA Social History Tobacco Use Types Packs/Day Years [...] visit [facility] [place], - [facility] [address] [place] [address] documented as of this encounter Visit Diagnoses Not on filedocumented in this encounter Care Teams Peoplesoft Crm Developer Relationship Specialty Start Date End Date Matias Tan MD [facility] [address] [place] [address] PCP - General Family Medicine 10/24/19 documented as of this encounter
--- OUTSIDE RECORDS SUMMARY | 2025-01-18 14:38 | XMS_ITS | Encounter Summary ---
Author Organization [facility] [place], Address [address] [place] [address] Phone Care Team Providers Care Basic Sciences Dean Name Role Phone Matias Tan MD Primary Care Provider +1- [phone] Encounter Details Date Type Department Care Team (Late st Contact Info) Description 03/11/2023 Documentation Only [facility] [address] [place] [phone] Jose Luis Amezcua MD Social History Tobacco Use Types Packs/Day Years [...] visit [facility] [address] [place] [phone] documented as of this encounter Visit Diagnoses Not on filedocumented in this encounter Care Teams Basic Sciences Dean Relationship Specialty Start Date End Date Matias Tan MD [address] [place] [address] PCP - General Family Medicine 10/24/19 documented as of this encounter
--- OUTSIDE RECORDS SUMMARY | 2025-01-18 14:38 | XMS_ITS | Encounter Summary ---
Author Organization [facility], Address [address] [place] [address] Phone Care Team Providers Care Individual Pension Consultant Name Role Phone Matias Tan MD Primary Care Provider +1- [phone] Reason for Visit * Reason Onset Date Comments Med Refill 12/20/2022 Encounter Details Date Type Department Care Team (Late st Contact Info) Description 12/20/2022 Refill [facility] - [facility] Center [address] [place] [address] bK Sung MD Social History Tobacco Use Types Packs/Day [...] suspected to have Coronavirus/COVID-19? No / Unsure 12/22/2022 9:11 AM EST documented as of this encounter Plan of Treatment Upcoming Encounters Date Type Department Care Team (Late st Contact Info) Description 03/07/2025 9:00 AM EDT Procedure visit [facility] [address] [place] [address] documented as of this encounter Visit Diagnoses Not on filedocumented in this encounter Care Teams Individual Pension Consultant Relationship Specialty Start Date End Date Matias Tan MD [facility] [address] [facility] [place] [address] PCP - General Family Medicine 10/24/19 documented as of this encounter
--- OUTSIDE RECORDS SUMMARY | 2025-01-18 14:38 | XMS_ITS | Encounter Summary ---
Author Organization [facility], Address [address] [place] [address] Phone Care Team Providers Care Account Receivable Associate Name Role Phone Matias Tan MD Primary Care Provider +1- [phone] Encounter Details Date Type Department Care Team (Late st Contact Info) Description 02/02/2024 Documentation Only [facility], [address] [place] [phone] [address] [place] [address] Social History Tobacco Use Types [...] visit [facility] [address] [place] [phone] documented as of this encounter Visit Diagnoses Not on filedocumented in this encounter Care Teams Account Receivable Associate Relationship Specialty Start Date End Date Matias Tan MD [address] [place] [address] PCP - General Family Medicine 10/24/19 documented as of this encounter
--- OUTSIDE RECORDS SUMMARY | 2025-01-18 14:38 | XMS_ITS | Encounter Summary ---
Author Organization [facility] Address [address] [place] [address] Care Team Providers Care Delivery Consultant Name Role Phone Yulia Smart MD Primary Care Provider Encounter Details Date Type Department Care Team (Late st Contact Info) Description 01/13/2025 Lab Requisition [facility] - Main Lab [address] [facility] [place] [address] Yulia Smart MD [address] [place] [id number] Encounter for other general examination Social History Tobacco Use Types Packs/Day Years Used Date Smoking Tobacco: Never Assessed Sex and Gender Information Value Date Recorded Sex Assigned at Not on file Legal Sex Male 12:18 AM EST Gender Identity Not on file Sexual Orientation Not on file documented as of this encounter Plan of Treatment Not on file documented as of this encounter Procedures Procedure Name Priority Date/Time Associated Diagnosis Comments CBC WITH AUTO DIFFERENTIAL Routine 01/13/2025 5:26 AM EDT Encounter for other general examination CBC AND DIFFERENTIAL Routine 01/13/2025 5:26 AM EDT Encounter for other general examination MAGNESIUM Routine 01/13/2025 5:26 AM EDT Encounter for other general examination HEMOGLOBIN A1C Routine 01/13/2025 5:26 AM EDT Encounter for other general examination COMPREHENSIVE METABOLIC PANEL Routine 01/13/2025 5:26 AM EDT Encounter for other general examination documented in this encounter Results * (ABNORMAL) CBC auto differential (01/13/2025 5:26 AM EDT) WBC 4.9 4.8 - 10.8 K/mcL LAB HEMETOLOGY METHOD 01/13/2025 11:17 AM [facility] RBC 3.40(L) 4.50 - 5.50 M/mcL LAB HEMETOLOGY METHOD 01/13/2025 11:17 AM [facility] Hemoglobin 10.6(L) 13.5 - 17.5 g/dL LAB HEMETOLOGY METHOD 01/13/2025 11:17 AM [facility] Hematocrit 30.8(L) 42.0 - 54.0 % LAB HEMETOLOGY METHOD 01/13/2025 11:17 AM [facility] MCV 89.8 79.0 - 98.0 FL LAB HEMETOLOGY METHOD 01/13/2025 11:17 AM [facility] MCH 30.9 27.0 - 32.0 pcg LAB HEMETOLOGY METHOD 01/13/2025 11:17 AM [facility] MCHC 34.4 32.0 - 37.0 g/dL LAB HEMETOLOGY METHOD 01/13/2025 11:17 AM [facility] RDW 14.5 11.0 - 15.0 % LAB HEMETOLOGY METHOD 01/13/2025 11:17 AM [facility] Platelets 105(L) 130 - 400 K/mcL LAB HEMETOLOGY METHOD 01/13/2025 11:17 AM [facility] MPV 11.5(H) 7.0 - 11.0 FL LAB HEMETOLOGY METHOD 01/13/2025 11:17 AM [facility] NRBC 0.0 <1.0 % LAB HEMETOLOGY METHOD 01/13/2025 11:17 AM [facility] NRBC Absolute 0.00 <0.10 K/mcL LAB HEMETOLOGY METHOD 01/13/2025 11:17 AM [facility] Neutrophils Relative 49.1 % LAB HEMETOLOGY METHOD 01/13/2025 11:17 AM [facility] Lymphocytes Relative 31.3 % LAB HEMETOLOGY METHOD 01/13/2025 11:17 AM [facility] Monocytes Relative 13.0 % LAB HEMETOLOGY METHOD 01/13/2025 11:17 AM [facility] Eosinophils Relative 6.0 % LAB HEMETOLOGY METHOD 01/13/2025 11:17 AM [facility] Basophils Relative 0.4 % LAB HEMETOLOGY METHOD 01/13/2025 11:17 AM [facility] Immature Granulocytes Relative 0.2 % LAB HEMETOLOGY METHOD 01/13/2025 11:17 AM [facility] Neutrophils Absolute 2.38 1.50 - 7.00 K/mcL LAB HEMETOLOGY METHOD 01/13/2025 11:17 AM [facility] Lymphocytes Absolute 1.52 1.00 - 5.00 K/mcL LAB HEMETOLOGY METHOD 01/13/2025 11:17 AM [facility] Monocytes Absolute 0.63 0.20 - 1.00 K/mcL LAB HEMETOLOGY METHOD 01/13/2025 11:17 AM [facility] Eosinophils Absolute 0.29 0.00 - 0.50 K/mcL LAB HEMETOLOGY METHOD 01/13/2025 11:17 AM [facility] Basophils Absolute 0.02 0.00 - 0.20 K/mcL LAB HEMETOLOGY METHOD 01/13/2025 11:17 AM [facility] Immature Granulocytes Absolute 0.01 0.00 - 0.03 K/mcL LAB HEMETOLOGY METHOD 01/13/2025 11:17 AM [facility] Blood Venous blood specimen / Unknown Venipuncture / Unknown 01/13/2025 5:26 AM EDT 01/13/2025 10:00 AM EDT us Yulia Smart MD LAB BLOOD ORDERABLES Final Resu lt Performing Organization Address City/[facility]/ZIP Co de Phone Number [facility] [address] [place] [address], [place] [phone] * (ABNORMAL) Magnesium (01/13/2025 5:26 AM EDT) Magnesium 1.8(L) 1.9 - 2.6 mg/dL LAB CHEMISTRY METHOD 01/13/2025 12:11 PM EDT [facility] Blood Venous blood specimen / Unknown Venipuncture / Unknown 01/13/2025 5:26 AM EDT 01/13/2025 10:00 AM EDT us Yulia Smart MD LAB BLOOD ORDERABLES Final Resu lt Performing Organization Address [facility]/ZIP Ok de Phone Number [facility] [address] [place] [address], [place] [phone] * Hemoglobin A1c (01/13/2025 5:26 AM EDT) Hemoglobin A1C 5.6 <6.5 % LAB CHEMISTRY METHOD 01/13/2025 12:43 PM EDT [facility] Mean Bld Glu Estim. 114 mg/dL LAB CHEMISTRY METHOD 01/13/2025 12:43 PM EDT [facility] Blood Venous blood specimen / Unknown Venipuncture / Unknown 01/13/2025 5:26 AM EDT 01/13/2025 10:00 AM EDT us Yulia Smart MD LAB BLOOD ORDERABLES Final Resu lt Performing Organization Address City/[facility]/ZIP Co de Phone Number [facility] [address] [place] [address], [place] [phone] * (ABNORMAL) Comprehensive metabolic panel (01/13/2025 5:26 AM EDT) Sodium 129(L) 133 - 145 mmol/L LAB CHEMISTRY METHOD 01/13/2025 12:12 PM [facility] Potassium 3.6 3.5 - 5.5 mmol/L LAB CHEMISTRY METHOD 01/13/2025 12:12 PM [facility] Chloride 85(L) 96 - 110 mmol/L LAB CHEMISTRY METHOD 01/13/2025 12:12 PM [facility] CO2 28 21 - 32 mmol/L LAB CHEMISTRY METHOD 01/13/2025 12:12 PM [facility] Anion Gap 16(H) 3 - 11 LAB CHEMISTRY METHOD 01/13/2025 12:12 PM [facility] Glucose 90 70 - 100 mg/dL LAB CHEMISTRY METHOD 01/13/2025 12:12 PM [facility] BUN 77(H) 5 - 25 mg/dL LAB CHEMISTRY METHOD 01/13/2025 12:12 PM [facility] Creatinine 10.50(H) 0.70 - 1.30 mg/dL LAB CHEMISTRY METHOD 01/13/2025 12:12 PM [facility] eGFR 5(L) >=60 mL/min/1 .73m2 LAB CHEMISTRY METHOD 01/13/2025 12:12 PM [facility] Comment:Calculation based on the??Chronic Kidney Disease Epidemiology Collaboration (CKD-EPI) equation refit??without adjustment for race. BUN/Creatinine Ratio 7.3 LAB CHEMISTRY METHOD 01/13/2025 12:12 PM [facility] Calcium 7.2(L) 8.5 - 10.5 mg/dL LAB CHEMISTRY METHOD 01/13/2025 12:12 PM [facility] AST (SGOT) 76(H) 10 - 42 unit/L LAB CHEMISTRY METHOD 01/13/2025 12:12 PM EDT [facility] ALT (SGPT) 36 10 - 60 unit/L LAB CHEMISTRY METHOD 01/13/2025 12:12 PM EDT [facility] Alkaline Phosphatase 65 42 - 121 unit/L LAB CHEMISTRY METHOD 01/13/2025 12:12 PM EDT [facility] Total Protein 5.9(L) 6.0 - 8.0 g/dL LAB CHEMISTRY METHOD 01/13/2025 12:12 PM EDT [facility] Albumin 2.9(L) 3.2 - 5.0 g/dL LAB CHEMISTRY METHOD 01/13/2025 12:12 PM [facility] Total Bilirubin 0.4 0.0 - 1.4 mg/dL LAB CHEMISTRY METHOD 01/13/2025 12:12 PM EDT [facility] Blood Venous blood specimen / Unknown Venipuncture / Unknown 01/13/2025 5:26 AM EDT 01/13/2025 10:00 AM EDT us Yulia Smart MD LAB BLOOD ORDERABLES Final Resu lt [facility] [address] [place] [address], [place] [phone] documented in this encounter Visit Diagnoses Diagnosis Encounter for other general examination documented in this encounter Care Teams Delivery Consultant Relationship Specialty Start Date End Date Yulia Smart MD [address] [place] [id number] PCP - General Hospitalist Medicine 01/13/25 documented as of this encounter
--- OUTSIDE RECORDS SUMMARY | 2025-01-18 14:38 | XMS_ITS | Encounter Summary ---
Author Organization [facility], Address [address] [place] [address] Phone Care Team Providers Care Pigskin Trimmer Name Role Phone Matias Tan MD Primary Care Provider +1- [phone] Reason for Visit * Reason Comments Med Refill Encounter Details Date Type Department Care Team (Late st Contact Info) Description 05/08/2024 Refill [facility] [address] [place] [address] Gabriela Hernandez PA Social History Tobacco [...] visit [facility], - Vascular Access Center [address] [place] [address] documented as of this encounter Visit Diagnoses Not on filedocumented in this encounter Care Teams Pigskin Trimmer Relationship Specialty Start Date End Date Matias Tan MD [facility] [address] [place] [address] PCP - General Family Medicine 10/24/19 documented as of this encounter
--- OUTSIDE RECORDS SUMMARY | 2025-01-18 14:38 | XMS_ITS | Encounter Summary ---
Author Organization [facility], Address [address] [place] [address] Phone Care Team Providers Care Workforce Manager Name Role Phone Matias Tan MD Primary Care Provider +1- [phone] Reason for Visit * Reason Onset Date Comments Med Refill 12/20/2022 Encounter Details Date Type Department Care Team (Late st Contact Info) Description 12/20/2022 Refill [facility] - Vascular Access Center [address] [place] [address] Kb Sung MD Social History Tobacco Use Types [...] visit [facility] - [facility] [address] [place] [address] documented as of this encounter Visit Diagnoses Not on filedocumented in this encounter Care Teams Workforce Manager Relationship Specialty Start Date End Date Matias Tan MD [facility] [address] [facility] [place] [address] PCP - General Family Medicine 10/24/19 documented as of this encounter
--- OUTSIDE RECORDS SUMMARY | 2025-01-18 14:38 | XMS_ITS | Encounter Summary ---
Author Organization [facility], Address [address] [place] [address] Phone Care Team Providers Care Manager Subway Name Role Phone Matias Tan MD Primary Care Provider +1- [phone] Reason for Visit * Reason Onset Date Comments Med Refill 06/08/2022 Encounter Details Date Type Department Care Team (Late st Contact Info) Description 06/08/2022 Refill [facility], [address] [place] [phone] Guanako Mercer MD [address] [facility] [place] [phone] Social History Tobacco Use Types Packs/Day Years [...] visit [facility] - [facility] [address] [place] [address] documented as of this encounter Visit Diagnoses Not on filedocumented in this encounter Care Teams Manager Subway Relationship Specialty Start Date End Date Matias Tan MD [address] [facility] [place] [address] PCP - General Family Medicine 10/24/19 documented as of this encounter
--- OUTSIDE RECORDS SUMMARY | 2025-01-18 14:38 | XMS_ITS | Encounter Summary ---
Author Organization [facility] Address [address] [place] [address] Care Team Providers Care Gripper Attacher Name Role Phone Yulia Smart MD Primary Care Provider Encounter Details Date Type Department Care Team (Late st Contact Info) Description 01/14/2025 Lab Requisition [facility] - Main Lab [address] [place] [address] Yulia Smart MD [address] [place] [address] Encounter for other general examination Social History [...] Procedure Name Priority Date/Time Associated Diagnosis Comments PHOSPHORUS Routine 01/14/2025 5:58 AM EDT Encounter for other general examination documented in this encounter Results * (ABNORMAL) Phosphorus (01/14/2025 5:58 AM EDT) Phosphorus 5.6(H) 2.5 - 4.5 mg/dL LAB CHEMISTRY METHOD 01/14/2025 12:17 PM EDT [facility] Blood Venous blood specimen / Unknown Venipuncture / Unknown 01/14/2025 5:58 AM EDT 01/14/2025 9:53 AM EDT us Yulia Smart MD LAB BLOOD ORDERABLES Final Resu lt [facility] [place] [facility] [address] [place] [address], documented in this encounter Visit Diagnoses Diagnosis Encounter for other general examination documented in this encounter Care Teams Gripper Attacher Relationship Specialty Start Date End Date Yulia Smart MD [address] [place] [address] PCP - General Hospitalist Medicine 01/13/25 documented as of this encounter
--- OUTSIDE RECORDS SUMMARY | 2025-01-18 14:38 | XMS_ITS | Encounter Summary ---
Author Organization [facility], Address [address] [place] [address] Phone Care Team Providers Care Staff Toxicologist Name Role Phone Matias Tan MD Primary Care Provider +1- [phone] Reason for Visit * Reason Comments Med Refill Encounter Details Date Type Department Care Team (Late st Contact Info) Description 01/26/2023 Refill [facility] [address] [place] [address] Gabriela Hernandez PA Social History Tobacco [...] visit [facility], - Vascular Access Center [address] [address] documented as of this encounter Visit Diagnoses Not on filedocumented in this encounter Care Teams Staff Toxicologist Relationship Specialty Start Date End Date Matias Tan MD [facility] [address] [place] [address] PCP - General Family Medicine 10/24/19 documented as of this encounter
--- OUTSIDE RECORDS SUMMARY | 2025-01-18 14:38 | XMS_ITS | Encounter Summary ---
Author Organization [facility] Address [address] [place] [address] Care Team Providers Care Boston Cutter Name Role Phone Yulia Smart MD Primary Care Provider Encounter Details Date Type Department Care Team (Late st Contact Info) Description 01/18/2025 Lab Requisition [facility] - Main Lab [address] [facility] [place] [address] Yulia Smart MD [address] [place] [id number] Encounter for other general examination Social History [...] encounter Results * (ABNORMAL) CBC auto differential (01/18/2025 5:06 AM EDT) WBC 9.9 4.8 - 10.8 K/mcL LAB HEMETOLOGY METHOD 01/18/2025 7:10 AM [facility] RBC 3.10(L) 4.50 - 5.50 M/mcL LAB HEMETOLOGY METHOD 01/18/2025 7:10 AM [facility] Hemoglobin 9.5(L) 13.5 - 17.5 g/dL LAB HEMETOLOGY METHOD 01/18/2025 7:10 AM [facility] Hematocrit 27.0(L) 42.0 - 54.0 % LAB HEMETOLOGY METHOD 01/18/2025 7:10 AM [facility] MCV 87.1 79.0 - 98.0 FL LAB HEMETOLOGY METHOD 01/18/2025 7:10 AM [facility] MCH 30.6 27.0 - 32.0 pcg LAB HEMETOLOGY METHOD 01/18/2025 7:10 AM [facility] MCHC 35.2 32.0 - 37.0 g/dL LAB HEMETOLOGY METHOD 01/18/2025 7:10 AM [facility] RDW 14.3 11.0 - 15.0 % LAB HEMETOLOGY METHOD 01/18/2025 7:10 AM [facility] Platelets 251 130 - 400 K/mcL LAB HEMETOLOGY METHOD 01/18/2025 7:10 AM [facility] MPV 11.1(H) 7.0 - 11.0 FL LAB HEMETOLOGY METHOD 01/18/2025 7:10 AM [facility] NRBC 0.0 <1.0 % LAB HEMETOLOGY METHOD 01/18/2025 7:10 AM [facility] NRBC Absolute 0.00 <0.10 K/mcL LAB HEMETOLOGY METHOD 01/18/2025 7:10 AM EDT [facility] Neutrophils Relative 77.1 % LAB HEMETOLOGY METHOD 01/18/2025 7:10 AM [facility] Lymphocytes Relative 8.3 % LAB HEMETOLOGY METHOD 01/18/2025 7:10 AM [facility] Monocytes Relative 13.5 % LAB HEMETOLOGY METHOD 01/18/2025 7:10 AM [facility] Eosinophils Relative 0.0 % LAB HEMETOLOGY METHOD 01/18/2025 7:10 AM [facility] Basophils Relative 0.0 % LAB HEMETOLOGY METHOD 01/18/2025 7:10 AM [facility] Immature Granulocytes Relative 1.1 % LAB HEMETOLOGY METHOD 01/18/2025 7:10 AM [facility] Neutrophils Absolute 7.61(H) 1.50 - 7.00 K/mcL LAB HEMETOLOGY METHOD 01/18/2025 7:10 AM [facility] Lymphocytes Absolute 0.82(L) 1.00 - 5.00 K/mcL LAB HEMETOLOGY METHOD 01/18/2025 7:10 AM [facility] Monocytes Absolute 1.33(H) 0.20 - 1.00 K/mcL LAB HEMETOLOGY METHOD 01/18/2025 7:10 AM [facility] Eosinophils Absolute 0.00 0.00 - 0.50 K/mcL LAB HEMETOLOGY METHOD 01/18/2025 7:10 AM [facility] Basophils Absolute 0.00 0.00 - 0.20 K/mcL LAB HEMETOLOGY METHOD 01/18/2025 7:10 AM [facility] Immature Granulocytes Absolute 0.11(H) 0.00 - 0.03 K/mcL LAB HEMETOLOGY METHOD 01/18/2025 7:10 AM EDT [facility] Blood Venous blood specimen / Unknown Venipuncture / Unknown 01/18/2025 5:06 AM EDT 01/18/2025 6:20 AM EDT us Yulia Smart MD LAB BLOOD ORDERABLES Final Resu lt Performing Organization Address City/[facility]/ZIP Co de Phone Number [facility] [address] [place] [address], [place] [phone] * Ammonia (01/18/2025 5:06 AM EDT) Ammonia 28 11 - 35 mcmol/L LAB CHEMISTRY METHOD 01/18/2025 6:53 AM EDT [facility] Blood Venous blood specimen / Unknown Venipuncture / Unknown 01/18/2025 5:06 AM EDT 01/18/2025 6:20 AM EDT us Yulia Smart MD LAB BLOOD ORDERABLES Final Resu lt Performing Organization Address [facility] Co de Phone Number [facility] [address] [place] [address], [place] [phone] * Thyroid stimulating hormone (01/18/2025 5:06 AM EDT) TSH 1.94 0.40 - 4.00 mcIU/mL LAB CHEMISTRY METHOD 01/18/2025 9:08 AM EDT [facility] Blood Venous blood specimen / Unknown Venipuncture / Unknown 01/18/2025 5:06 AM EDT 01/18/2025 6:20 AM EDT us Yulia Smart MD LAB BLOOD ORDERABLES Final Resu lt Performing Organization Address City/[facility]/ZIP Co de Phone Number [facility] [address] [place] [address], [place] [phone] * (ABNORMAL) Vitamin B12 (01/18/2025 5:06 AM EDT) [facility] Vitamin B-12 1,241(H) 250 - 900 pcg/mL LAB CHEMISTRY METHOD 01/18/2025 7:36 AM EDT [facility] Blood Venous blood specimen / Unknown Venipuncture / Unknown 01/18/2025 5:06 AM EDT 01/18/2025 6:20 AM EDT us Yulia Smart MD LAB BLOOD ORDERABLES Final Resu lt [facility] [address] [place] [address], [place] [phone] * (ABNORMAL) Comprehensive metabolic panel (01/18/2025 5:06 AM EDT) [facility] Sodium 123(L) 133 - 145 mmol/L LAB CHEMISTRY METHOD 01/18/2025 7:56 AM [facility] Potassium 5.2 3.5 - 5.5 mmol/L LAB CHEMISTRY METHOD 01/18/2025 7:56 AM [facility] Chloride 89(L) 96 - 110 mmol/L LAB CHEMISTRY METHOD 01/18/2025 7:56 AM [facility] CO2 21 21 - 32 mmol/L LAB CHEMISTRY METHOD 01/18/2025 7:56 AM [facility] Anion Gap 13(H) 3 - 11 LAB CHEMISTRY METHOD 01/18/2025 7:56 AM [facility] Glucose 174(H) 70 - 100 mg/dL LAB CHEMISTRY METHOD 01/18/2025 7:56 AM [facility] BUN 96(H) 5 - 25 mg/dL LAB CHEMISTRY METHOD 01/18/2025 7:56 AM [facility] Creatinine 9.44(H) 0.70 - 1.30 mg/dL LAB CHEMISTRY METHOD 01/18/2025 7:56 AM [facility] eGFR 5(L) >=60 mL/min/1. 73m2 LAB CHEMISTRY METHOD 01/18/2025 7:56 AM [facility] Comment:Calculation based on the??Chronic Kidney Disease Epidemiology Collaboration (CKD-EPI) equation refit??without adjustment for race. BUN/Creatinine Ratio 10.2 LAB CHEMISTRY METHOD 01/18/2025 7:56 AM [facility] Calcium 7.8(L) 8.5 - 10.5 mg/dL LAB CHEMISTRY METHOD 01/18/2025 7:56 AM [facility] AST (SGOT) 13 10 - 42 unit/L LAB CHEMISTRY METHOD 01/18/2025 7:56 AM [facility] Comment:Results verified by repeat testing ALT (SGPT) 21 10 - 60 unit/L LAB CHEMISTRY METHOD 01/18/2025 7:56 AM [facility] Alkaline Phosphatase 52 42 - 121 unit/L LAB CHEMISTRY METHOD 01/18/2025 7:56 AM [facility] Total Protein 5.3(L) 6.0 - 8.0 g/dL LAB CHEMISTRY METHOD 01/18/2025 7:56 AM [facility] Albumin 2.6(L) 3.2 - 5.0 g/dL LAB CHEMISTRY METHOD 01/18/2025 7:56 AM [facility] Total Bilirubin 1.0 0.0 - 1.4 mg/dL LAB CHEMISTRY METHOD 01/18/2025 7:56 AM [facility] Comment:Results verified by repeat testing Blood Venous blood specimen / Unknown Venipuncture / Unknown 01/18/2025 5:06 AM EDT 01/18/2025 6:20 AM EDT us Rami A Ashkar MD LAB BLOOD ORDERABLES Final Resu lt [facility] LAB [address] [place] [address], documented in this encounter Visit Diagnoses Diagnosis Encounter for other general examination documented in this encounter Care Teams Boston Cutter Relationship Specialty Start Date End Date Yulia Smart MD [address] [place] [address] PCP - General Hospitalist Medicine 01/13/25 documented as of this encounter
--- OUTSIDE RECORDS SUMMARY | 2025-01-18 14:38 | XMS_ITS | Encounter Summary ---
Author Organization [facility], Address [address] [place] [address] Phone Care Team Providers Care Advanced Seal Delivery System Name Role Phone Matias Tan MD Primary Care Provider +1- [phone] Reason for Visit * Reason Onset Date Comments Med Refill 09/24/2022 Encounter Details Date Type Department Care Team (Late st Contact Info) Description 09/24/2022 Refill [facility] - Vascular Access Center [address] [place] [address] Ferdinand Monroe MD [address] [place] [phone] Social History Tobacco Use Types Packs/Day Years [...] suspected to have Coronavirus/COVID-19? No / Unsure 09/04/2022 8:18 AM EST documented as of this encounter Plan of Treatment Upcoming Encounters Date Type Department Care Team (Late st Contact Info) Description 03/07/2025 9:00 AM EDT Procedure visit [facility] - [facility] [address] [place] [address] [place] [phone] documented as of this encounter Visit Diagnoses Not on filedocumented in this encounter Care Teams Advanced Seal Delivery System Relationship Specialty Start Date End Date Matias Tan MD [address] [facility] [place] [address] PCP - General Family Medicine 10/24/19 documented as of this encounter
--- OUTSIDE RECORDS SUMMARY | 2025-01-18 14:38 | XMS_ITS | Encounter Summary ---
Author Organization [facility], Address [address] [place] [address] Phone Care Team Providers Care Sample Examiner Name Role Phone Matias Tan MD Primary Care Provider +1- [phone] Reason for Visit * Reason Onset Date Comments Med Refill 07/01/2024 Encounter Details Date Type Department Care Team (Late Contact Info) Description 07/01/2024 Refill [facility], - Vascular Access Center [address] [place] [phone] Dale Lema MD [address] [place] [phone] Social History Tobacco Use Types Packs/Day Years [...] visit [facility] - [facility] [address] [place] [phone] documented as of this encounter Visit Diagnoses Not on filedocumented in this encounter Care Teams Sample Examiner Relationship Specialty Start Date End Date Matias Tan MD [address] [facility] [place] [phone] PCP - General Family Medicine 10/24/19 documented as of this encounter
--- OUTSIDE RECORDS SUMMARY | 2025-01-18 14:38 | XMS_ITS | Encounter Summary ---
Author Organization [facility], Address [address] [place] [address] Phone Care Team Providers Care Geophysicist Name Role Phone Matias Tan MD Primary Care Provider +1- [phone] Reason for Visit * Reason Comments Med Refill Encounter Details Date Type Department Care Team (Late st Contact Info) Description 11/28/2022 Refill [facility] [place] [address] [place] [address] Guanako Mercer MD [address] [place] [address] Social History Tobacco Use Types [...] suspected to have Coronavirus/COVID-19? No / Unsure 11/26/2022 3:23 PM EST documented as of this encounter Plan of Treatment Upcoming Encounters Date Type Department Care Team (Late st Contact Info) Description 03/07/2025 9:00 AM EDT Procedure visit [facility] - [facility] [address] [place] [address] documented as of this encounter Visit Diagnoses Not on filedocumented in this encounter Care Teams Geophysicist Relationship Specialty Start Date End Date Matias Tan MD [address] [facility] [place] [address] PCP - General Family Medicine 10/24/19 documented as of this encounter
--- OUTSIDE RECORDS SUMMARY | 2025-01-18 14:38 | XMS_ITS | Encounter Summary ---
Author Organization [facility], Address [address] [place] [address] Phone Care Team Providers Care Assistant Field Hockey Coach Name Role Phone Matias Tan MD Primary Care Provider +1- [phone] Reason for Visit * Reason Comments Med Refill Encounter Details Date Type Department Care Team (Late st Contact Info) Description 07/17/2022 Refill [facility] - Vascular Access Center [address] [phone] Guanako Mercer MD [address] [place] [phone] Social History Tobacco Use Types Packs/Day Years [...] visit [facility] - [facility] Center [address] [place] [phone] documented as of this encounter Visit Diagnoses Not on filedocumented in this encounter Care Teams Assistant Field Hockey Coach Relationship Specialty Start Date End Date Matias Tan MD [address] [place] [address] PCP - General Family Medicine 10/24/19 documented as of this encounter
--- OUTSIDE RECORDS SUMMARY | 2025-01-18 14:38 | XMS_ITS | Encounter Summary ---
Author Organization [facility], Address [address] [place] [address] Phone Care Team Providers Care Cruise Agent Name Role Phone Matias Tan MD Primary Care Provider +1- [phone] Reason for Visit * Reason Onset Date Comments Med Refill 07/19/2022 Encounter Details Date Type Department Care Team (Late st Contact Info) Description 07/19/2022 Refill [facility] - Vascular Access Center [address] [phone] Guanako Mercer MD [address] [place] [phone] Social History Tobacco Use Types Packs/Day Years [...] visit [facility] - [facility] Center [address] [place] [phone] documented as of this encounter Visit Diagnoses Not on filedocumented in this encounter Care Teams Cruise Agent Relationship Specialty Start Date End Date Matias Tan MD [facility] [address] [email or web address]1 [place] [address] PCP - General Family Medicine 10/24/19 documented as of this encounter
--- OUTSIDE RECORDS SUMMARY | 2025-01-18 14:38 | XMS_ITS | Encounter Summary ---
Author Organization [facility], Address [address] [place] [address] Phone Care Team Providers Care Cold Work Operator Name Role Phone Matias Tan MD Primary Care Provider +1- [phone] Reason for Visit * Reason Comments Med Refill Encounter Details Date Type Department Care Team (Late st Contact Info) Description 01/26/2023 Refill [facility] [address] [place] [phone] Denys Mueller MD [address] [facility] [place] [address] Social History Tobacco Use Types [...] visit [facility] - [facility] Center [address] [place] [phone] documented as of this encounter Visit Diagnoses Not on filedocumented in this encounter Care Teams Cold Work Operator Relationship Specialty Start Date End Date Matias Tan MD [address] [place] [address] PCP - General Family Medicine 10/24/19 documented as of this encounter
--- OUTSIDE RECORDS SUMMARY | 2025-01-18 14:38 | XMS_ITS | Clinical Summary ---
Author Organization [facility], Address [address] [place] [address] Phone Care Team Providers Care Walking Dragline Oiler Name Role Phone Matias Tan MD Primary Care Provider +1- [phone] Allergies Active Allergy Reactions Criticality Noted Date Comments Penicillin G Other (see comments),Nausea Medium 2019 Nausea, dizzy Trazodone Other (see comments) High 11/30/2019 Priapism Tramadol Rash Medium 11/30/2019 Medications atenolol (TENORMIN) 100 MG tablet Take 1 tablet by mouth daily 1 Active Lantus SoloStar 100 UNIT/ML injection Inject 70 Units under the skin in the morning. 1 Active Lokelma 10 g pack Take 1 Package by mouth every other day On non HD days 2 Active betamethasone, augmented, (DIPROLENE) 0.05 % cream APPLY TOPICALLY TO THE AFFECTED AREA TWICE DAILY NEEDED FOR RASH 2 Active amLODIPine (NORVASC) 10 MG tablet Take 1 tablet by mouth in the morning. 2 Active acetaminophen (TYLENOL) 325 MG tablet TAKE 2 TABLETS BY MOUTH EVERY 4 HOURS NEEDED FOR PAIN 2 Active B Xxxrnmg-X-Ieeau Acid (Dialyvite 800) 0.8 MG tablet Take 1 tablet by mouth daily 2 Active lanthanum (FOSRENOL) 750 MG chewable tablet Chew 1 tablet in the morning and 1 tablet at noon and 1 tablet in the evening. Chew with meals. 2 Active Cholecalciferol 125 MCG (5000 UT) tablet Take 1 tablet by mouth daily 2 Active albuterol HFA (PROVENTIL HFA;VENTOLIN HFA) 108 (90 Base) MCG/ACT inhaler Inhale 2 puffs 3 Active amphetamine-dext roamphetamine (ADDERALL) 10 MG tablet 3 Active calcitriol (ROCALTROL) 0.5 MCG capsule Take 0.5 mcg by mouth 2 Active clonazePAM (KlonoPIN) 0.5 MG tablet TAKE 1 TABLET BY MOUTH 3 TIMES DAILY AND 1 TABLET DAILY NEEDED 3 Active LORazepam (Ativan) 1 MG tablet Take 1 tablet by mouth every 6 (six) hours if needed 2 Active methylphenidate (RITALIN) 20 MG tablet 3 Active oxyCODONE (ROXICODONE) 5 MG immediate release tablet TAKE 1 TABLET BY MOUTH EVERY 6 HOURS NEEDED FOR SEVERE PAIN 3 Active levothyroxine (SYNTHROID, LEVOTHROID) 137 MCG tablet Take 137 mcg by mouth every morning 30 tablet 11 3 Active losartan (COZAAR) 25 MG tablet Take 100 mg by mouth 1 (one) time each day 3 Active atorvastatin (LIPITOR) 40 MG tablet Take 40 mg by mouth 1 (one) time each day 4 Active HYDROmorphone (DILAUDID) 4 MG tablet TAKE 1 TABLET BY MOUTH EVERY 3 HOURS NEEDED FOR PAIN - DUE 06/24 4 Active pantoprazole (PROTONIX) 40 MG EC tablet 4 Active gabapentin (NEURONTIN) 100 MG capsule Take 100 mg by mouth in the morning and 100 mg in the evening and 100 mg before bedtime. Active insulin lispro protamine-insuli n lispro (HumaLOG 50-50) (50-50) 100 UNIT/ML inj pen Inject under the skin 2 (two) times a day before meals Active hydrOXYzine (ATARAX) 50 MG tablet Take 50 mg by mouth at night if needed for itching Active predniSONE (DELTASONE) 20 MG tablet Take 20 mg by mouth 1 (one) time each day Active prochlorperazine (COMPAZINE) 10 MG tablet Take 10 mg by mouth every 6 (six) hours if needed for nausea or vomiting Active sevelamer carbonate (RENVELA) 800 MG tablet Take 800 mg by mouth in the morning and 800 mg at noon and 800 mg in the evening. Take with meals. Swallow tablet whole; do not crush, break, or chew.. Active sodium bicarbonate 650 MG tablet Take 650 mg by mouth in the morning and 650 mg at noon and 650 mg in the evening and 650 mg before bedtime. Active Active Problems Problem Noted Date Diagnosed Date Other viral pneumonia 02/24/2024 Gout 12/15/2023 Gastroesophageal reflux disease 12/15/2023 Chronic depression 12/15/2023 Hypothyroidism 12/15/2023 Hyperparathyroidism 12/15/2023 Altered mental status 12/09/2023 Atelectasis 11/02/2023 Chronic pulmonary edema 01/26/2023 Major depressive disorder 01/01/2023 Fluid overload 12/12/2022 Other malaise 10/20/2022 Dyspnea 10/20/2022 Hypoglycemia 10/01/2022 Personal history of urinary tract infection 08/19 Diverticulitis 09/04/2022 Dependence on renal dialysis 08/04/2022 Hypokalemia 07/09/2022 Angina pectoris 07/01/2022 Coagulation defect 07/01/2022 End stage renal disease 07/01/2022 Iron deficiency anemia 07/01/2022 Other irritable bowel syndrome 07/01/2022 Secondary hyperparathyroidism of renal origin Type 2 diabetes mellitus wit h diabetic chronic kidney disease 07/01/2022 Activity of daily living (ADL) alteration 2021 Cognitive safety issue 05/22/2022 Nephropathy 04/24/2022 Stage 5 chronic kidney disease 01/02/2022 Anemia in chronic kidney disease 01/02/2022 Proteinuria 08/27/2021 Type 2 diabetes mellitus wit h diabetic chronic kidney disease 12/01/2019 Essential (primary) hypertension 12/01/2019 Resolved Problems Problem Noted Date Diagnosed Date Resolved Date Acute nontraumatic kidney injury 12/24/2021 01/28/2022 Prostatism 03/12/2021 08/27/2021 Vitamin D deficiency 01/31/2020 021 Encounters Date Type Department Care Team Description 01/04/2025 Orders Only [facility] [address] [address] Denys Mueller MD 01/02/2025 Orders Only [facility] [address] [address] Denys Mueller MD 01/02/2025 Treatment [facility] [address] [place] [address] Tiffani Olson, BPM SOLUTION ARCHITECT-C End stage renal disease; Dependence on renal dialysis 12/28/2024 Treatment [facility], [address] [place] [address] Tiffani Olson, BPM SOLUTION ARCHITECT-C End stage renal disease; Dependence on renal dialysis 12/28/2024 Refill [facility] [address] [address] Sawyer Davis MD 12/26/2024 Orders Only [facility] [address] [address] Denys Mueller MD 12/23/2024 Treatment [facility], [address] [place] [address] Tiffani Olson, BPM SOLUTION ARCHITECT-C End stage renal disease; Dependence on renal dialysis 12/21/2024 Orders Only [facility] [address] [address] Denys Mueller MD 12/19/2024 Orders Only [facility] [address] [address] Denys Mueller MD 12/16/2024 Treatment [facility] [address] [place] [address] Sawyer Davis MD End stage renal disease; Dependence on renal dialysis 12/14/2024 Orders Only [facility] [address] [address] Denys Mueller MD 12/14/2024 Treatment [facility] [address] [facility] [place] [address] Tiffani Olson, BPM SOLUTION ARCHITECT-C 12/13/2024 Treatment [facility] [address] [facility] [place] [address] Missy Izquierdo, ROD MILL TENDER 12/12/2024 Orders Only [facility] [address] [address] Denys Mueller MD 12/07/2024 Orders Only [facility] [address] [address] Denys Mueller MD 12/07/2024 Treatment [facility], [address] [facility] [place] [address] Tiffani Olson BPM SOLUTION ARCHITECT-C 11/30/2024 Orders Only [facility] [address] [address] Denys Mueller MD 11/23/2024 Orders Only [facility] [address] [address] Denys Mueller MD 11/23/2024 Treatment [facility] [address] [facility] [place] [address] Tiffani Olson BPM SOLUTION ARCHITECT-C 11/16/2024 Treatment [facility] [address] [place] [address] Tiffani Olson BPM SOLUTION ARCHITECT-C 11/16/2024 Telephone [facility] [address] [place] [address] Tanya Chi post op call 11/15/2024 9:00 AM EST Procedure visit [facility], - [facility] [address] [place] [address] [place] [phone] Ferdinand Monroe MD End stage renal disease (HCC) (Primary Dx); Stenosis of other vascular prosthetic devices, implants and grafts, initial encounter (HCC) 11/14/2024 Telephone [facility], - [facility] [address] [place] [address] [place] [address] Koo Kristen 11/09/2024 Orders Only [facility] [address] [address] Denys Mueller MD 11/09/2024 Treatment [facility], [address] [place] [address] Tiffani Olson FNP-C 11/07/2024 Orders Only [facility] [address] [address] Denys Mueller MD 11/02/2024 Treatment [facility], [address] [place] [address] Sawyer Davis MD 10/31/2024 Treatment [facility], [address] [place] [address] Gabriela Hernandez PA 10/26/2024 Orders Only [facility] [address] [address] Denys Mueller MD 10/21/2024 Orders Only [facility] [address] [address] Denys Mueller MD 10/21/2024 Treatment [facility], [address] [place] [address] Gabriela Hernandez PA from Last 3 Months Immunizations Name Administration Dates Next Due Influenza Whole 08/21/2010 Influenza, Unspecified 09/09/2021,2019,10/18/2019,07/02/2017 ,07/01/2017,10/18/2014,11/21/2013, 1 Pneumococcal Conjugate 13-Valent 09/21/2020 Pneumococcal Polysaccharide 09/09/2021, 0 Tdap 04/13/2010 Family History Medical History Relation Comments Cancer Father Diabetes Father Diabetes Mother Heart disease Mother CHF Hypertension Mother Diabetes Sibling 1 Hypertension Sibling 2 Lupus Sister multiple scleros is Relation Status Comments Father Mother Sibling 1 Sibling 2 Sister Social History Tobacco Use Types Packs/Day Years Used Date Smoking Tobacco: Never Tobacco Cessation:Counseling Given: Not Answered Alcohol Use Standard Drinks/Week Comments Not Currently [...] Orientation Straight 03/20/2022 11 :18 AM EDT Last Filed Vital Signs Vital Sign Reading Time Taken Comments Blood Pressure 176/79 11/15/2024 8:10 AM EST Pulse 69 11/15/2024 8:10 AM EST Temperature 36.3 ??C (97.4 ??F) 11/15/2024 8:10 AM ES T Respiratory Rate 16 11/15/2024 8:10 AM EST Oxygen Saturation 100% 11/15/2024 8:10 AM EST Inhaled Oxygen Concentration - - Weight 71.2 kg (156 lb 15.5 oz) 11/15/2024 8:10 AM EST Height 167.6 cm (5' 6 ) 11/15/2024 8:10 AM EST Body Mass Index 25.34 11/15/2024 8:10 AM EST Plan of Treatment Upcoming Encounters Date Type Department Care Team (Late st Contact Info) Description 03/07/2025 9:00 AM EDT Procedure visit [facility] [address] [place] [address] Health Maintenance Due Date Last Done Comments Hepatitis B Vaccine (1 of 5 - Risk Dialysis 4-dose series) 1974 Colorectal Cancer Screening: Annual FOBT 2003 Colorectal Cancer Screening: Colonoscopy 2003 Colorectal Cancer Screening: Sigmoidoscopy 2003 Diabetes: Ophthalmology Exam 12/01/2019 Diabetes: Pedal Pulse Checked 12/01/2019 Diabetes: Sensory Foot Exam 12/01/2019 Diabetes: Visual Foot Exam 12/01/2019 Diabetes: Hemoglobin A1C 08/04/2024 024, 02/03/2024, 11/09/2023, Additional history exists Influenza Vaccine (Season Ended) 2025 08/05/2023, 09/09/2021, 08/22/2020, Additional history exists Pneumococcal Vaccine: 65+ Years Completed 09/09/2021, 09/21/2020, 08/21/2010 Procedures Procedure Name Priority Date/Time Associated Diagnosis Comments IMMUNO CHEMISTRY Routine 01/04/2025 CHEMISTRY Routine 01/04/2025 CHEMISTRY Routine 01/04/2025 HEMATOLOGY Routine 01/04/2025 CHEMISTRY Routine 01/02/2025 HEMATOLOGY Routine 12/28/2024 CHEMISTRY Routine 12/26/2024 [facility] RES[facility] Routine 12/21/2024 HD KINETICS Routine 12/21/2024 POST CHEMISTRY Routine 12/21/2024 HEMATOLOGY Routine 12/21/2024 CHEMISTRY Routine 12/21/2024 CHEMISTRY Routine 12/19/2024 HEMATOLOGY Routine 12/14/2024 CHEMISTRY Routine 12/12/2024 CHEMISTRY Routine 12/07/2024 IMMUNO CHEMISTRY Routine 12/07/2024 CHEMISTRY Routine 12/07/2024 HEMATOLOGY Routine 12/07/2024 HEMATOLOGY Routine 11/30/2024 [facility] RESULTS Routine 11/23/2024 HD KINETICS Routine 11/23/2024 POST CHEMISTRY Routine 11/23/2024 CHEMISTRY Routine 11/23/2024 HEMATOLOGY Routine 11/23/2024 SPECIAL CHEMISTRY Routine 11/16/2024 CHEMISTRY Routine 11/16/2024 HEMATOLOGY Routine 11/16/2024 HEMATOLOGY Routine 11/09/2024 IMMUNO CHEMISTRY Routine 11/07/2024 CHEMISTRY Routine 11/07/2024 HEMATOLOGY Routine 11/07/2024 CHEMISTRY Routine 11/07/2024 HEMATOLOGY Routine 10/26/2024 [facility] RESULTS Routine 10/21/2024 HD KINETICS Routine 10/21/2024 CHEMISTRY Routine 10/21/2024 POST CHEMISTRY Routine 10/21/2024 SPECIAL CHEMISTRY Routine 05/04/2024 from Last 3 Months or Most Recently Relevant to Health Maintenance Results * IMMUNO CHEMISTRY (01/04/2025) Only the most recent of3 resultswithin the time period is included. Hep B Surface Ag Negative Negative [facility] 01/04/2025 01/05/2025 9:1 3 AM EDT Narrative Resulting Agency Comment Specimen source: Serum Denys Mueller MD LAB BLOOD ORDERABLES Final Re sult Performing Organization Address [facility] Co de Phone Number [employer] See order comments or contact performing lab Unknown, [place] * (ABNORMAL) HEMATOLOGY (01/04/2025) Only the most recent of11 resultswithin the time period is included. Hemoglobin 11.2(L) 14.0 - 18.0 g/dL [facility] Hemoglobin x 3 33.6(L) 42.0 - 54.0 % [facility] 01/04/2025 01/05/2025 8:5 0 AM EDT Narrative [facility] - 01/05/2025 Unless otherwise specified, test(s) performed at: [facility], [address] [place] [address] HEAD OF BIOLOGY: Blane Ramsay M.D. For any questions, please call customer service at FREQUENCY:MONTHLY Resulting Agency Comment Specimen source: Blood Denys Mueller MD LAB BLOOD ORDERABLES Final Re sult [employer] See order comments or contact performing lab Unknown, [place] * (ABNORMAL) [facility] (01/04/2025) Only the most recent of14 resultswithin the time period is included. Creatinine 9.17(H) 0.60 - 1.30 mg/dL [facility] Sodium 136 136 - 145 mEq/L [facility] Potassium 5.2(H) 3.5 - 5.1 mEq/L [facility] Chloride 94(L) 96 - 108 mEq/L [facility] Bicarbonate (CO2) 25 22 - 29 mEq/L [facility] Calcium 8.4 8.4 - 10.2 mg/dL [facility] Corrected Calcium 8.6 8.4 - 10.2 mg/dL [facility] Comment: Corrected Calcium is not equivalent to measured Ionized Calcium. Phosphorus 9.5(H) 2.6 - 4.5 mg/dL [facility] Calcium Phosphorus Product 80(H) 0 - 54 [facility] Calcium Phosporus Product, Cor 82(H) 0 - 54 [facility] Alkaline Phosphatase 65 40 - 129 U/L [facility] ALT (SGPT) 9 7 - 52 U/L [facility] Albumin 3.7 3.5 - 5.2 g/dL [facility] Magnesium 2.0 1.6 - 2.6 mg/dL [facility] Ferritin 892(H) 22 - 322 ng/mL [facility] Iron 104 45 - 160 mcg/dL [facility] UIBC 83(L) 155 - 355 mcg/dL [facility] TIBC 187 185 - 515 mcg/dL [facility] Iron Saturation (TSat) 56(H) 20 - 55 % [facility] 01/04/2025 01/05/2025 9:1 3 AM EDT Narrative [facility] - 01/05/2025 Unless otherwise specified, test(s) performed at: [facility], [address] [place] [id number] HEAD OF BIOLOGY: Blane Ramsay M.D. For any questions, please call customer service at FREQUENCY:MONTHLY Resulting Agency Comment Specimen source: Serum us Denys Mueller MD LAB BLOOD ORDERABLES Final Re sult [employer] [facility] See order comments or contact performing lab Unknown, [place] * HD KINETICS (12/21/2024) Only the most recent of3 resultswithin the time period is included. % Urea Reduction 79 65 - 80 % [facility] 12/21/2024 12/23/2024 2:2 1 PM EST Narrative Resulting Agency Comment Specimen source: Plasma Denys Mueller MD LAB BLOOD ORDERABLES Final Re sult Performing Organization Address City/[facility]/ZIP Co de Phone Number [employer] See order comments or contact performing lab Unknown, [place] * POST CHEMISTRY (12/21/2024) Only the most recent of3 resultswithin the time period is included. BUN Post Dialysis 13 6 - 19 mg/dL [facility] 12/21/2024 12/23/2024 2:2 1 PM EST Narrative [facility] - 12/23/2024 Unless otherwise specified, test(s) performed at: [facility], [address] [place] [address] HEAD OF BIOLOGY: Blane Ramsay M.D. For any questions, please call customer service at FREQUENCY:OTHER Resulting Agency Comment Specimen source: Plasma Denys Mueller MD LAB BLOOD ORDERABLES Final Re sult Performing Organization Address [facility] de Phone Number [employer] See order comments or contact performing lab Unknown, [place] * [facility] Results (12/21/2024) Only the most recent of3 resultswithin the time period is included. WSTDKT/V 2.7 [facility] spKt/V Gotch 2.05 [facility] nPCR_HD 1.28 [facility] eKt/V ([place]) 1.70 [facility] eNPCR 1.20 [facility] spKt/V (Daugirdas II) 1.94 [facility] PCR 73.57 [facility] eKdrt/V 1.77 [facility] eKt/V Gotch 1.77 [facility] 12/21/2024 12/21/2024 [facility] Ordering Provider LAB BLOOD ORDERABLES Final Result Performing Organization Address City/[facility]/ZIP Co de Phone Number [facility] Contact Performing lab Unknown, [place] * SPECIAL CHEMISTRY (11/16/2024) Only the most recent of2 resultswithin the time period is included. Vitamin D, 25-OH, Total 66.0 30.0 - 100.0 ng/mL [facility] Comment: Please Note:? Effective August 17, 2023, the methodology for this test has changed to the [facility]. 11/16/2024 11/18/2024 7:5 9 AM EST Deena KELVIN - 11/18/2024 Unless otherwise specified, test(s) performed at: [facility], [address] [place] [address] HEAD OF BIOLOGY: Blane Ramsay M.D. For any questions, please call customer service at FREQUENCY:OTHER Resulting Agency Comment Specimen source: Serum us Denys Mueller MD LAB BLOOD BANK TEST ORDERABLE S Final Result [employer] See order comments or contact performing lab [facility], [place] from Last 3 Months or Most Recently Relevant to Health Maintenance Insurance MEDICARE [facility] MEDICARE [facility] Care Teams Walking Dragline Oiler Relationship Specialty Start Date End Date Matias Tan MD [facility] [address] [place] [address] PCP - General Family Medicine 10/24/19
--- OUTSIDE RECORDS SUMMARY | 2025-01-18 14:38 | XMS_ITS | Encounter Summary ---
Author Organization [facility], Address [address] [place] [address] Phone Care Team Providers Care Material Control Manager Name Role Phone Matias Tan MD Primary Care Provider +1- [phone] Reason for Visit * Reason Comments Med Refill Encounter Details Date Type Department Care Team (Late st Contact Info) Description 12/28/2024 Refill [facility] [address] [place] [phone] Sawyer Davis MD [address] [facility] [place] [address] Social History Tobacco Use Types [...] visit [facility] - [facility] [address] [place] [address] documented as of this encounter Procedures Procedure Name Priority Date/Time Associated Diagnosis Comments HEMATOLOGY Routine 12/28/2024 documented in this encounter Results * (ABNORMAL) HEMATOLOGY (12/28/2024) Hemoglobin 11.5(L) 14.0 - 18.0 g/dL [facility] Hemoglobin x 3 34.5(L) 42.0 - 54.0 % [facility] 12/28/2024 12/29/2024 9:1 7 AM EDT Narrative [facility] - 12/29/2024 Unless otherwise specified, test(s) performed at: [facility], [address] [place] [address] SENIOR ORACLE SOA DEVELOPER: Blane Ramsay M.D. For any questions, please call customer service at FREQUENCY:OTHER Resulting Agency Comment Specimen source: Blood us Denys Mueller MD LAB BLOOD ORDERABLES Final Re sult [id number] See order comments or contact performing lab [facility], [place] documented in this encounter Visit Diagnoses Not on filedocumented in this encounter Care Teams Material Control Manager Relationship Specialty Start Date End Date Matias Tan MD [facility] [address] [place] [phone] PCP - General Family Medicine 10/24/19 documented as of this encounter
--- OUTSIDE RECORDS SUMMARY | 2025-01-18 14:38 | XMS_ITS | Encounter Summary ---
Author Organization [facility], Address [address] [place] [address] Phone Care Team Providers Care Watcher Lookout Tower Name Role Phone Matias Tan MD Primary Care Provider +1- [phone] Reason for Visit * Reason Onset Date Comments Med Refill 12/23/2022 Encounter Details Date Type Department Care Team (Late st Contact Info) Description 12/23/2022 Refill [facility] - V[facility] Access Center [address] [place] [phone] Ferdinand Monroe MD [address] [phone] Social History Tobacco Use Types Packs/Day Years [...] visit [facility] - [facility] [address] [place] [address] [place] [phone] documented as of this encounter Visit Diagnoses Not on filedocumented in this encounter Care Teams Watcher Lookout Tower Relationship Specialty Start Date End Date Matias Tan MD [address] [facility] [place] [address] PCP - General Family Medicine 10/24/19 documented as of this encounter
[2025-01-18] MEDS: Sodium Zirconium Cyclosilicate 10 GM POWD.PACK PO (15:22)
--- NOTE | 2025-01-18 15:43 | PC.NURSE ---
Spoke to Kyara , of pt. update. Per family and pt. pt. unable to provide ua at this time. Pt. a dialysis pt.
--- NOTE | 2025-01-18 16:09 | P.HPHOSP_ITS ---
History of Present Illness Date of Service: 01/18/25 Chief Complaint: Confusion 70-year-old man with a history of 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 Apparently patient has been having difficulty keeping his balance. Patient had a fall approximately 3 days ago on 01/16/2025 and was seen at [facility] on 01/17/[address] scan. He has been leaning forward while walking which according to the stepdaughter is new for the patient. According to the stepdaughter before 01/10/2025 he had no confusion, he was alert and oriented x3 and had no gait abnormalities. Patient was vague but he knew the year, month and the place. He reported that this abnormal gait has been ongoing for a few months but this is unknown and at this time unable to verify. in the ER, and he was given a dose of Lokelma for elevated ammonia. Plan will be to admit patient for further management and treatment of acute encephalopathy and gait abnormality. Review of Systems 2 Review of Systems: Yes Unobtainable due to mental status [facility] Medical History ESRD needing dialysis End stage kidney disease Secondary hyperparathyroidism (of renal origin) Anemia in chronic kidney disease DONIS (acute kidney injury) End stage renal disease on dialysis Diabetes Kidney failure HTN (hypertension) Social History Household Members: Spouse Housing: House Are you a primary health care attorney to a significant other at home: No Do you presently have visiting nurse or other home services: No Alcohol intake: never Comment: Pt turning off own bed alarm Kasie Pizarro [employer] aware provide with re- educa Patient Tobacco Use Status: Never used Tobacco Cigarette Packs Per Day: 0 Cigarettes Per Day: 0.0 Years Smoked: NA Smoked in Last 30 Days: No e-Cigarette/Vaping Use: Never Used Second Hand Smoke Exposure: No Use of substances other than those prescribed or required for medical reasons: No Advance Directives: Yes Advance Directives on File: Yes Advance Directives Date on File: 09/07/23 Do you have a plan to hurt others: No Plan service: No Meds Allergies Allergy/AdvReac Type Severity Reaction Status Date / Time Penicillins [PENICILLINS] Allergy Unknown RASH Verified 01/18/25 11:47 tramadol [From ULTRAM] Allergy Unknown RASH Verified 01/18/25 11:47 trazodone [TRAZODONE] Allergy Unknown PRIAPISM Verified 01/18/25 11:47 risperidone [RISPERIDONE] AdvReac Severe dizzy, EPS Verified 01/18/25 11:47 Home Medications ?Medication ?Instructions ?Recorded ?Confirmed ?Last Taken ?Type atenolol 100 mg tablet 1 tab PO DAILY 07/11/21 01/09/25 01/06/25 History blood sugar diagnostic (FreeStyle 07/11/21 10/30/24 10/30/24 09:00 History Lite Strips) dextroamphetamine-amphetamine 20 1 tab PO TID@0800,1400,1800 07/11/21 01/09/25 01/06/25 History mg tablet levothyroxine 137 mcg tablet 1 tab PO DAILY@0600 07/11/21 01/09/25 01/06/25 History pen needle, diabetic 31 gauge x 07/11/21 10/30/24 10/30/24 09:00 History 5/16 (BD Ultra-Fine Short Pen Needle) amlodipine 5 mg tablet 5 mg PO BID 09/03/23 01/09/25 01/06/25 History atorvastatin 40 mg tablet 40 mg PO DAILY 02/22/24 01/09/25 01/06/25 History sodium zirconium cyclosilicate 10 10 g PO SUTUTHSA@0900 06/19/24 01/09/25 01/05/25 History gram oral powder packet (kelid) alprazolam 0.5 mg tablet 0.5 mg PO DAILY PRN anxiety attack 10/30/24 01/09/25 10/30/24 09:00 History alprazolam 2 mg tablet 2 mg PO BID 10/30/24 01/09/25 01/06/25 History insulin lispro 100 unit/mL 1 sliding scale dose subcut TIDAC 10/30/24 01/09/25 10/30/24 09:00 History subcutaneous pen (Humalog KwikPen PRN Blood Glucose (U-100) Insulin) sevelamer carbonate 800 mg tablet 800 mg PO DAILY PRN snack 10/30/24 01/09/25 4 Days Ago History ~10/29/24 vitamin D3 25 mcg (1,000 unit)-vit 1 tab PO RIKY@0900 11/02/24 01/09/25 01/05/25 History K2 90 mcg disintegrating tablet losartan 100 mg tablet 100 mg PO DAILY 01/09/25 01/09/25 01/06/25 History sevelamer carbonate 800 mg tablet 1,600 mg PO TIDWM 01/09/25 01/09/25 01/06/25 History Physical Exam 2 Vital Signs and Narrative: Vital Signs: Last Vital Signs Temp 97.4 F 01/18/25 15:58 Pulse 53 01/18/25 15:58 Resp 17 01/18/25 15:58 BP 143/64 H 01/18/25 15:58 Pulse Ox 99 01/18/25 15:58 O2 Del Method Room Air 01/18/25 15:58 BMI result Body Mass Index 31.0 Appearing in no acute distress head is normocephalic atraumatic eyes pupils are PERRLA sclera is anicteric mouth throat mucous membranes are intact and moist neck is supple no lymphadenopathy, no JVD noted lung sounds are clear to auscultation heart regular rate rhythm, clear S1, S2 positive bowel sounds, abdomen is soft, nontender neuro patient is alert x3, no focal deficits Results Labs 01/18/25 12:50 01/18/25 12:49 Labs: Laboratory Results - last 24 hr 01/18/25 01/18/25 01/18/25 11:50 12:49 12:50 MCV 86.0 MCH 30.7 MCHC 35.7 RDW 14.3 Plt Count 265 D MPV 10.4 Immature Gran % (Auto) 1.2 H Neut % (Auto) 70.1 Lymph % (Auto) 12.1 L [place] % (Auto) 16.3 H Eos % (Auto) 0.1 Baso % (Auto) 0.2 Lymph # (Auto) 1.4 [place] # (Auto) 1.8 H Eos # (Auto) 0.0 Baso # (Auto) 0.0 Abs Immat Gran (auto) 0.13 H Absolute Neuts (auto) 7.8 Absolute Nucleated RBC 0.000 Nucleated RBC % (auto) 0.0 Smear Tech's Comments VERIFIED Anion Gap 19 Estim Creat Clear Calc 7.5 Estimated GFR 6 POC Glucose 133 H Random Glucose 148 H Calcium 7.8 L D Magnesium 2.7 H Total Bilirubin 0.5 AST 18 ALT 17 Alkaline Phosphatase 51 Ammonia 59 H Total Protein 5.6 L Albumin 3.2 L TSH 3.61 T.pallidum Ab (EIA) Nonreactive Influenza Type A (PCR) POSITIVE A Influenza Type B (PCR) NEGATIVE RSV RNA Qual (PCR) NEGATIVE SARS-CoV-2 RNA (RT-PCR) NEGATIVE Imaging Radiologist's Impressions: Impressions Head CT 01/18/25 13:18 IMPRESSION: No acute intracranial abnormality. Electronically signed by: Ferdinand Love MD 01/18/2025 01:58 PM EDT RP Chest X-Ray 01/18/25 13:30 IMPRESSION: No acute airspace disease. Resolved pulmonary edema Electronically signed by: Dg Rob MD 01/18/2025 01:45 PM EDT RP Assessment and Plan (1) ESRD needing dialysis: Status: Acute Plan 70-year-old man with a history of end-stage renal disease on dialysis presenting with acute encephalopathy and gait abnormality Acute encephalopathy Unknown etiology, no obvious infectious source Head CT without acute abnormality MRI ordered Neurology consultation Influenza a Supportive care, had been on Tamiflu Had a positive reading on 01/07/2025 Gait abnormality Unknown etiology although patient reports this has been ongoing for few months Physical therapy consultation OT for [place] Hyponatremia Possibly secondary to poor p.o. intake Repeat this evening Nephrology consultation Hyperkalemia Given Lokelma in the ED Follow BMP Hypertension Stable blood pressure Continue home medications when med rec is complete Mental health Continue home medications when med rec is complete Hypothyroidism Continue levothyroxine when med rec is complete End-stage renal disease on dialysis Dialysis Thursday, Thursday, Thursday Normocytic anemia No acute bleeding Likely secondary to renal disease Follow CBC Medication reconciliation pending DVT prophylaxis with heparin Full code Quality Stroke Does the patient have a stroke diagnosis?: No VTE Prior VTE?: No VTE Risk Level:: Medical - moderate - high VTE Device Contraindication: Treatment Not Indicated VTE Drug Contraindication: N/A - Med Ordered
--- NOTE | 2025-01-18 18:31 | PC.NURSE ---
Called [facility] for consent and answer questionnaire for pt. MRI. Verified with VERONICA Bishop.
[2025-01-18] MEDS: Heparin Sodium,Porcine 5,000 UNIT/ML VIAL 5000 UNIT SUBCUT (18:53)
--- NOTE | 2025-01-18 21:36 | PC.NURSE ---
Report given to VERONICA Cabral.
--- NOTE | 2025-01-18 21:44 | PHA.MEDREC ---
Pharmacy Consult ? Medication Reconciliation Pharmacy has completed the medication reconciliation. Med list obtained from [facility]
--- NOTE | 2025-01-18 21:47 | PC.NURSE ---
this rn assumed care of pt, pt brought over from [facility]. a&ox2 at this time, respirations even and unlabored. pt placed into private room d.t flu pos. bed alarm in place. pt states he does not make a lot of urine dt dialysis. pt given call [facility].
[2025-01-19] MEDS: HYDROmorphone HCl 2 MG TABLET 4 MG PO ×4 (02:12→20:02)
--- NOTE | 2025-01-19 02:21 | PC.NURSE ---
pt medicated per mar for 8/10 generalized body pain. pt also assisted in incontinence care.
[2025-01-19 06:37] VITALS: BP 146/64; PULSE 57; RESP 16; TEMP 36.8; O2SAT 97
[2025-01-19 06:38] LABS: Glucose, Whole Blood 86 mg/dL (60-115)
--- NOTE | 2025-01-19 07:04 | PC.NURSE ---
pt to dialysis at this time.
[2025-01-19 09:28] LABS: Hematocrit 28.8 % (42.0-52.0); Hemoglobin 10.5 g/dl (14.0-18.0); Mean Corpuscular HGB Conc 36.5 g/dl (31.0-36.0); Mean Corpuscular Hemoglobin 30.9 pg (27.0-33.0); Mean Corpuscular Volume 84.7 fL (80.0-98.0); Mean Platelet Volume 10.1 fL (9.4-12.4); Platelet Count 296 X10*3/uL (160-400); Red Cell Distribution Width 14.6 % (11.0-16.0); White Blood Count 10.4 X10*3/uL (4.8-10.8)
[2025-01-19 09:53] LABS: Magnesium 2.2 mg/dL (1.6-2.6)
[2025-01-19 10:45] LABS: Alanine Aminotransferase 15 U/L (0-40); Alkaline Phosphatase 53 U/L (39-117); Aspartate Amino Transferase 20 U/L (5-37); Bilirubin Total 0.5 mg/dL (0.0-1.0); Blood Urea Nitrogen 46 mg/dL (9-16); Calcium 7.7 mg/dL (8.4-10.2); Creatinine Clr Calc Pharmacy 15.2; Estimated Glomerular Filt Rate 13; Glucose Random 87 mg/dL (60-115); Total Protein 5.2 g/dL (6.5-8.0)
[2025-01-19 10:53] VITALS: BP 146/67; PULSE 61; RESP 16; TEMP 36.6; O2SAT 99
[2025-01-19 10:54] LABS: Anion Gap 14 (12-20); Carbon Dioxide 25 mmol/L (22-29); Chloride 99 mmol/L (96-108); Potassium 3.2 mmol/L (3.3-5.1); Sodium 135 mmol/L (135-145)
[2025-01-19 11:01] LABS: Glucose, Whole Blood 67 mg/dL (60-115)
[2025-01-19] MEDS: ALPRAZolam 0.5 MG TABLET 2 MG PO ×2 (11:20→20:02)
[2025-01-19] MEDS: 0.9 % Sodium Chloride Flush 3 ML SYRINGE IVFLUSH ×3 (11:20→20:02)
[2025-01-19] MEDS: Multivitamin TABLET 1 TAB PO (11:21)
[2025-01-19] MEDS: predniSONE 10 MG TABLET 30 MG PO (11:21)
[2025-01-19] MEDS: Cholecalciferol (Vitamin D3) 25 MCG TABLET 125 MCG PO (11:21)
[2025-01-19] MEDS: Sevelamer Carbonate Tablet 800 MG TABLET 1600 MG PO ×2 (11:22→16:39)
[2025-01-19] MEDS: Atorvastatin Calcium 40 MG TABLET PO (11:22)
[2025-01-19] MEDS: atenoloL 100 MG TABLET PO (11:22)
[2025-01-19] MEDS: Heparin Sodium,Porcine 5,000 UNIT/ML VIAL 5000 UNIT SUBCUT ×3 (11:23→23:46)
[2025-01-19] MEDS: Amphetamine Mixed Salts 20 MG TABLET PO ×2 (11:23→16:39)
[2025-01-19] MEDS: amLODIPine Besylate 5 MG TABLET PO ×2 (11:23→20:02)
[2025-01-19] MEDS: Sodium Zirconium Cyclosilicate 10 GM POWD.PACK PO (11:23)
[2025-01-19] MEDS: Oseltamivir Phosphate 30 MG CAPSULE PO (11:26)
--- NOTE | 2025-01-19 11:35 | PC.NURSE ---
Patient's AM meds given late since pt. went straight to dialysis from ED. Alert and oriented x3, not complains of anything so far.
[2025-01-19 11:38] LABS: Appearance Urine Clear; Color Urine Yellow; Glucose Urine UA 250 mg/dL (Negative); Leukocyte Esterase Urine Negative (Negative); Nitrite Urine Negative (Negative); PH 8.5 (5.0-9.0); Specific Gravity - Urine <= 1.005 (1.005-1.025); UMIC TRIGGER UACC YES; Urine Blood Trace (Negative); Urine Ketones Negative (Negative); Urine Protein 30 (1+) mg/dL (Neg-Trace)
[2025-01-19 11:46] LABS: Bacteria Urine None Seen (None Seen); Hyaline Casts Urine 0-2 /LPF (0-2); Squamous Epithelial Cell Urine 0-2 /HPF (0-2); WBC Urine 0-5 /HPF (0-5)
--- NOTE | 2025-01-19 11:49 | P.PNIM_ITS ---
Subjective Subjective Date of Service: 01/19/25 Interval History: seen and examined this am - seen during dilaysis Follow-up for unsteady gait Reporting chronic abdominal pain Review of Systems Review of Systems: Yes all other systems are reviewed and are negative Constitutional Constitutional: Denies chills and Denies fever(s) Physical Exam 2 Vital Signs: Vital Signs: Last Vital Signs Temp 98 F 01/19/25 10:53 Pulse 61 01/19/25 10:53 Resp 16 01/19/25 10:53 BP 146/67 H 01/19/25 10:53 Pulse Ox 99 01/19/25 10:53 O2 Del Method Room Air 01/19/25 10:53 BMI result Body Mass Index 31.0 Const: General: alert and awake Nutritional Appearance: average body habitus Orientation/consciousness: patient oriented x3 Resp: Effort & Inspection: normal respiratory effort, able to speak in complete sentences, no respiratory distress and no use of accessory muscles Cardio: Rate: regular rate GI: Inspection: No distended Palpation (GI): Soft to palpation Neuro: Other: grossly nonfocal General: patient oriented x3 Objective Data Active Medications Acetaminophen (Acetaminophen 325 Mg Tablet) 650 mg PO Q6H PRN PRN Reason: Pain, Mild 1-3,fever,headache Albuterol Sulfate (Albuterol Sulfate (0.083%) 2.5 Mg/3 Ml Vial.Neb) 2.5 mg INHALE Q6H PRN PRN Reason: Wheezing Alprazolam (Alprazolam 0.5 Mg Tablet) 0.5 mg PO DAILY PRN PRN Reason: anxiety attack Alprazolam (Alprazolam 0.5 Mg Tablet) 2 mg PO BID [facility] Last Admin: 01/19/25 11:20 Dose: 2 mg Documented By: SYDNI Amlodipine Besylate (Amlodipine Besylate 5 Mg Tablet) 5 mg PO BID [facility]; Protocol Last Admin: 01/19/25 11:23 Dose: 5 mg Documented By: SYDNI Amphetamine/Dextroamphetamine (Amphetamine Mixed Salts 20 Mg Tablet) 20 mg PO TID@0800,1400,1800 [facility] Last Admin: 01/19/25 11:23 Dose: 20 mg Documented By: SYDNI Atenolol (Atenolol 100 Mg Tablet) 100 mg PO DAILY [facility]; Protocol Last Admin: 01/19/25 11:22 Dose: 100 mg Documented By: SYDNI Atorvastatin Calcium (Atorvastatin Calcium 40 Mg Tablet) 40 mg PO DAILY [facility] Last Admin: 01/19/25 11:22 Dose: 40 mg Documented By: SYDNI Calcium Carbonate (Calcium Carbonate 750 Mg Tab.Chew) 750 mg PO Q4H PRN PRN Reason: Heartburn Dextrose (Dextrose 50 % 25 Gm/50 Ml Syringe) 25 gm IVPUSH Q15M PRN; Protocol PRN Reason: per Hypoglycemia Standing Ord. Glucose (Glucose Gel 15 Gm Gel..Gram.) 15 gm PO Q15M PRN; Protocol PRN Reason: per Hypoglycemia Standing Ord. Heparin Sodium (Porcine) (Heparin Sodium,Porcine 5,000 Unit/Ml Vial) 5,000 unit SUBCUT Q8H [facility] Last Admin: 01/19/25 11:23 Dose: 5,000 unit Documented By: SYDNI Hydromorphone HCl (Hydromorphone Hcl 2 Mg Tablet) 4 mg PO Q3H PRN PRN Reason: Severe Pain (Scale Score 7-10) Last Admin: 01/19/25 08:35 Dose: 4 mg Documented By: ASYA Insulin Human Lispro (Insulin Lispro 100 Unit/Ml 3 Ml Vial) 0 unit SUBCUT QIDACHS [facility]; Protocol Last Admin: 01/19/25 11:37 Dose: Not Given Documented By: SYDNI Non-Admin Reason: No Insulin Coverage Comments: juice and aimee cracker given Levothyroxine Sodium 112 mcg/ (Levothyroxine Sodium 25 mcg) 137 mcg PO DAILY@0600 [facility] Lidocaine HCl (Lidocaine Hcl 1 % Mpf 2 Ml Vial) 0.5 ml SUBCUT MOWEFR@1645 [facility] Magnesium Hydroxide (Milk Of Magnesia 30 Ml Oral.Susp) 30 ml PO DAILY PRN PRN Reason: Constipation Melatonin (Melatonin 3 Mg Tablet) 6 mg PO BEDTIME PRN PRN Reason: Insomnia Multivitamins/Vitamin C (Multivitamin Tablet) 1 tab PO DAILY [facility] Last Admin: 01/19/25 11:21 Dose: 1 tab Documented By: SYDNI Ondansetron HCl (Ondansetron Hcl 4 Mg/2 Ml Vial) 4 mg IVPUSH Q8H PRN PRN Reason: Nausea and Vomiting Oseltamivir Phosphate (Oseltamivir Phosphate 30 Mg Capsule) 30 mg PO Q2D [facility] Last Admin: 01/19/25 11:26 Dose: 30 mg Documented By: SYDNI Prednisone (Prednisone 10 Mg Tablet) 30 mg PO DAILY [facility] Last Admin: 01/19/25 11:21 Dose: 30 mg Documented By: SYDNI Quetiapine Fumarate (Quetiapine Fumarate 25 Mg Tablet) 25 mg PO BID PRN PRN Reason: Agitation Sevelamer Carbonate (Sevelamer Carbonate Tablet 800 Mg Tablet) 800 mg PO DAILY PRN PRN Reason: SNACKS Sevelamer Carbonate (Sevelamer Carbonate Tablet 800 Mg Tablet) 1,600 mg PO TIDWM [facility] Last Admin: 01/19/25 11:22 Dose: 1,600 mg Documented By: SYDNI Sodium Chloride (0.9 % Sodium Chloride Flush 3 Ml Syringe) 3 ml IVFLUSH QSHIFT [facility] Last Admin: 01/19/25 11:20 Dose: 3 ml Documented By: SYDNI Sodium Zirconium Cyclosilicate (Sodium Zirconium Cyclosilicate 10 Gm Powd.Pack) 10 gm PO SUTUTHSA@0900 [facility] Last Admin: 01/19/25 11:23 Dose: 10 gm Documented By: SYDNI Vitamin D (Cholecalciferol (Vitamin D3) 25 Mcg Tablet) 125 mcg PO DAILY [facility] Last Admin: 01/19/25 11:21 Dose: 125 mcg Documented By: SYDNI Labs 01/19/25 08:47 01/19/25 08:47 Labs: Laboratory Results - last 24 hr 01/18/25 01/18/25 01/18/25 11:50 12:49 12:50 MCV 86.0 MCH 30.7 MCHC 35.7 RDW 14.3 Plt Count 265 D MPV 10.4 Immature Gran % (Auto) 1.2 H Neut % (Auto) 70.1 Lymph % (Auto) 12.1 L [place] % (Auto) 16.3 H Eos % (Auto) 0.1 Baso % (Auto) 0.2 Lymph # (Auto) 1.4 [place] # (Auto) 1.8 H Eos # (Auto) 0.0 Baso # (Auto) 0.0 Abs Immat Gran (auto) 0.13 H Absolute Neuts (auto) 7.8 Absolute Nucleated RBC 0.000 Nucleated RBC % (auto) 0.0 Smear Tech's Comments VERIFIED Anion Gap 19 Estim Creat Clear Calc 7.5 Estimated GFR 6 POC Glucose 133 H Random Glucose 148 H Calcium 7.8 L D Magnesium 2.7 H Total Bilirubin 0.5 AST 18 ALT 17 Alkaline Phosphatase 51 Ammonia 59 H Total Protein 5.6 L Albumin 3.2 L TSH 3.61 Urine Color Urine Appearance Urine pH Ur Specific [place] Urine Protein Urine Glucose (UA) Urine Ketones Urine Blood Urine Nitrite Ur Leukocyte Esterase Urine RBC Urine WBC Ur Squamous Epith Cells Urine Bacteria Hyaline Casts T.pallidum Ab (EIA) Nonreactive Influenza Type A (PCR) POSITIVE A Influenza Type B (PCR) NEGATIVE RSV RNA Qual (PCR) NEGATIVE SARS-CoV-2 RNA (RT-PCR) NEGATIVE 01/19/25 01/19/25 01/19/25 06:12 08:47 08:47 MCV 84.7 MCH 30.9 MCHC 36.5 H RDW 14.6 Plt Count 296 MPV 10.1 Immature Gran % (Auto) Neut % (Auto) Lymph % (Auto) [place] % (Auto) Eos % (Auto) Baso % (Auto) Lymph # (Auto) [place] # (Auto) Eos # (Auto) Baso # (Auto) Abs Immat Gran (auto) Absolute Neuts (auto) Absolute Nucleated RBC 0.000 Nucleated RBC % (auto) 0.0 Smear Tech's Comments Anion Gap Cancelled 14 Estim Creat Clear Calc Cancelled Estimated GFR POC Glucose 86 Random Glucose Calcium Magnesium Total Bilirubin AST ALT Alkaline Phosphatase Ammonia Total Protein Albumin TSH Urine Color Urine Appearance Urine pH Ur Specific [place] Urine Protein Urine Glucose (UA) Urine Ketones Urine Blood Urine Nitrite Ur Leukocyte Esterase Urine RBC Urine WBC Ur Squamous Epith Cells Urine Bacteria Hyaline Casts T.pallidum Ab (EIA) Influenza Type A (PCR) Influenza Type B (PCR) RSV RNA Qual (PCR) SARS-CoV-2 RNA (RT-PCR) 01/19/25 01/19/25 01/19/25 08:47 08:47 08:47 MCV MCH MCHC RDW Plt Count MPV Immature Gran % (Auto) Neut % (Auto) Lymph % (Auto) [place] % (Auto) Eos % (Auto) Baso % (Auto) Lymph # (Auto) [place] # (Auto) Eos # (Auto) Baso # (Auto) Abs Immat Gran (auto) Absolute Neuts (auto) Absolute Nucleated RBC Nucleated RBC % (auto) Smear Tech's Comments Anion Gap Estim Creat Clear Calc 15.2 Estimated GFR Cancelled 13 POC Glucose Random Glucose Cancelled 87 Calcium Cancelled Magnesium Total Bilirubin AST ALT Alkaline Phosphatase Ammonia Total Protein Albumin TSH Urine Color Urine Appearance Urine pH Ur Specific [place] Urine Protein Urine Glucose (UA) Urine Ketones Urine Blood Urine Nitrite Ur Leukocyte Esterase Urine RBC Urine WBC Ur Squamous Epith Cells Urine Bacteria Hyaline Casts T.pallidum Ab (EIA) Influenza Type A (PCR) Influenza Type B (PCR) RSV RNA Qual (PCR) SARS-CoV-2 RNA (RT-PCR) 01/19/25 01/19/25 01/19/25 08:47 10:57 11:26 MCV MCH MCHC RDW Plt Count MPV Immature Gran % (Auto) Neut % (Auto) Lymph % (Auto) [place] % (Auto) Eos % (Auto) Baso % (Auto) Lymph # (Auto) [place] # (Auto) Eos # (Auto) Baso # (Auto) Abs Immat Gran (auto) Absolute Neuts (auto) Absolute Nucleated RBC Nucleated RBC % (auto) Smear Tech's Comments Anion Gap Estim Creat Clear Calc Estimated GFR POC Glucose 67 Random Glucose Calcium 7.7 L Magnesium 2.2 Total Bilirubin 0.5 AST 20 ALT 15 Alkaline Phosphatase 53 Ammonia Total Protein 5.2 L Albumin 3.0 L TSH 4.70 H Urine Color Yellow Urine Appearance Clear Urine pH 8.5 Ur Specific [place] <= 1.005 Urine Protein 30 (1+) H Urine Glucose (UA) 250 H Urine Ketones Negative Urine Blood Trace H Urine Nitrite Negative Ur Leukocyte Esterase Negative Urine RBC 3-5 H Urine WBC 0-5 Ur Squamous Epith Cells 0-2 Urine Bacteria None Seen Hyaline Casts 0-2 T.pallidum Ab (EIA) Influenza Type A (PCR) Influenza Type B (PCR) RSV RNA Qual (PCR) SARS-CoV-2 RNA (RT-PCR) Assessment and Plan (1) Abnormality of gait: Status: Acute Plan 70-year-old man with a history of end-stage renal disease on dialysis presenting with acute encephalopathy and gait abnormality Acute encephalopathy. oriented this morning no obvious infectious source. no fever Head CT without acute abnormality MRI ordered Influenza a diagnosed on previous admission completed tamiflu. no hypoxia Gait abnormality reports this has been ongoing for few months. was seen by Neurology on previous admission who recommended outpatient EMG studies. Physical therapy pending has MRI brain pending, if abnormal will re-consult neurology OT for [place] Hyponatremia resolved Hyperkalemia resolved k 3.2 today on chronic lokelma Hypertension Stable blood pressure Continue atenolol, norvasc , losartan Mental health continue baseline medications Hypothyroidism Continue levothyroxine End-stage renal disease on dialysis Dialysis Thursday, Thursday, Thursday, had HD today / nephrology following Normocytic anemia No acute bleeding Likely secondary to renal disease DVT prophylaxis with heparin Full code Quality Stroke Does the patient have a stroke diagnosis?: No VTE Prior VTE?: No VTE Risk Level:: Medical - moderate - high VTE Device Contraindication: Treatment Not Indicated VTE Drug Contraindication: N/A - Med Ordered
[2025-01-19 11:54] LABS: Glucose, Whole Blood 122 mg/dL (60-115)
--- NOTE | 2025-01-19 11:55 | P.CNNE_ITS ---
History of Present Illness Data of Consult Service Date: 01/19/25 Primary Care Provider: Matias Tan MD [facility] Reason for consult: Imbalance 70 years old man with end-stage renal disease came to hospital with worsening balance and unsteadiness that apparently started few days ago. On admission is serum sodium was 127 and renal functions were significantly impaired. He had dialysis today. There was no history of any recent cold or flu-like illness or paresthesias. No recent history of seizure disorder or stroke-like symptom other than unsteadiness. Review of Systems 2 Review of Systems: As per HPI [facility], [facility] Past Medical History Medical History ESRD needing dialysis End stage kidney disease Secondary hyperparathyroidism (of renal origin) Anemia in chronic kidney disease DONIS (acute kidney injury) End stage renal disease on dialysis Diabetes Kidney failure HTN (hypertension) Social History Social History Household Members: Spouse Housing: House Are you a primary managed care coordinator to a significant other at home: No Do you presently have visiting nurse or other home services: No Alcohol intake: never Comment: Pt turning off own bed alarm Kasie Pizarro [employer] aware provide with re- educa Patient Tobacco Use Status: Never used Tobacco Cigarette Packs Per Day: 0 Cigarettes Per Day: 0.0 Years Smoked: NA Smoked in Last 30 Days: No e-Cigarette/Vaping Use: Never Used Second Hand Smoke Exposure: No Use of substances other than those prescribed or required for medical reasons: No Have you been hit, kicked, punched, or otherwise hurt by someone within the past year? If so, by whom?: No Do you feel safe in your current relationship?: Yes Is there a partner from a previous relationship who is making you feel unsafe now?: No Are you made to feel afraid or neglected: No Advance Directives: Yes Advance Directives Information Provided: No Advance Directives on File: Yes Advance Directives Date on File: 09/07/23 Do you have a plan to hurt others: No Plan Recently lost weight without trying: No Nutrition Risks: No Nutritional Risk Poor oral hygiene: No service: No Meds Allergies Allergy/AdvReac Type Severity Reaction Status Date / Time Penicillins [PENICILLINS] Allergy Unknown RASH Verified 01/18/25 11:47 tramadol [From ULTRAM] Allergy Unknown RASH Verified 01/18/25 11:47 trazodone [TRAZODONE] Allergy Unknown PRIAPISM Verified 01/18/25 11:47 risperidone [RISPERIDONE] AdvReac Severe dizzy, EPS Verified 01/18/25 11:47 Active Medications: Current Medications Acetaminophen (Acetaminophen 325 Mg Tablet) 650 mg PO Q6H PRN PRN Reason: Pain, Mild 1-3,fever,headache Albuterol Sulfate (Albuterol Sulfate (0.083%) 2.5 Mg/3 Ml Vial.Neb) 2.5 mg INHALE Q6H PRN PRN Reason: Wheezing Alprazolam (Alprazolam 0.5 Mg Tablet) 0.5 mg PO DAILY PRN PRN Reason: anxiety attack Alprazolam (Alprazolam 0.5 Mg Tablet) 2 mg PO BID [facility] Last Admin: 01/19/25 11:20 Dose: 2 mg Amlodipine Besylate (Amlodipine Besylate 5 Mg Tablet) 5 mg PO BID [facility]; Protocol Last Admin: 01/19/25 11:23 Dose: 5 mg Amphetamine/Dextroamphetamine (Amphetamine Mixed Salts 20 Mg Tablet) 20 mg PO TID@0800,1400,1800 [facility] Last Admin: 01/19/25 11:23 Dose: 20 mg Atenolol (Atenolol 100 Mg Tablet) 100 mg PO DAILY [facility]; Protocol Last Admin: 01/19/25 11:22 Dose: 100 mg Atorvastatin Calcium (Atorvastatin Calcium 40 Mg Tablet) 40 mg PO DAILY [facility] Last Admin: 01/19/25 11:22 Dose: 40 mg Calcium Carbonate (Calcium Carbonate 750 Mg Tab.Chew) 750 mg PO Q4H PRN PRN Reason: Heartburn Dextrose (Dextrose 50 % 25 Gm/50 Ml Syringe) 25 gm IVPUSH Q15M PRN; Protocol PRN Reason: per Hypoglycemia Standing Ord. Glucose (Glucose Gel 15 Gm Gel..Gram.) 15 gm PO Q15M PRN; Protocol PRN Reason: per Hypoglycemia Standing Ord. Heparin Sodium (Porcine) (Heparin Sodium,Porcine 5,000 Unit/Ml Vial) 5,000 unit SUBCUT Q8H [facility] Last Admin: 01/19/25 11:23 Dose: 5,000 unit Hydromorphone HCl (Hydromorphone Hcl 2 Mg Tablet) 4 mg PO Q3H PRN PRN Reason: Severe Pain (Scale Score 7-10) Last Admin: 01/19/25 08:35 Dose: 4 mg Insulin Human Lispro (Insulin Lispro 100 Unit/Ml 3 Ml Vial) 0 unit SUBCUT QIDACHS [facility]; Protocol Last Admin: 01/19/25 11:37 Dose: Not Given Levothyroxine Sodium 112 mcg/ (Levothyroxine Sodium 25 mcg) 137 mcg PO DAILY@0600 [facility] Lidocaine HCl (Lidocaine Hcl 1 % Mpf 2 Ml Vial) 0.5 ml SUBCUT MOWEFR@1645 [facility] Magnesium Hydroxide (Milk Of Magnesia 30 Ml Oral.Susp) 30 ml PO DAILY PRN PRN Reason: Constipation Melatonin (Melatonin 3 Mg Tablet) 6 mg PO BEDTIME PRN PRN Reason: Insomnia Multivitamins/Vitamin C (Multivitamin Tablet) 1 tab PO DAILY [facility] Last Admin: 01/19/25 11:21 Dose: 1 tab Ondansetron HCl (Ondansetron Hcl 4 Mg/2 Ml Vial) 4 mg IVPUSH Q8H PRN PRN Reason: Nausea and Vomiting Oseltamivir Phosphate (Oseltamivir Phosphate 30 Mg Capsule) 30 mg PO Q2D [facility] Last Admin: 01/19/25 11:26 Dose: 30 mg Prednisone (Prednisone 10 Mg Tablet) 30 mg PO DAILY [facility] Last Admin: 01/19/25 11:21 Dose: 30 mg Quetiapine Fumarate (Quetiapine Fumarate 25 Mg Tablet) 25 mg PO BID PRN PRN Reason: Agitation Sevelamer Carbonate (Sevelamer Carbonate Tablet 800 Mg Tablet) 800 mg PO DAILY PRN PRN Reason: SNACKS Sevelamer Carbonate (Sevelamer Carbonate Tablet 800 Mg Tablet) 1,600 mg PO TIDWM [facility] Last Admin: 01/19/25 11:22 Dose: 1,600 mg Sodium Chloride (0.9 % Sodium Chloride Flush 3 Ml Syringe) 3 ml IVFLUSH QSHIFT [facility] Last Admin: 01/19/25 11:20 Dose: 3 ml Sodium Zirconium Cyclosilicate (Sodium Zirconium Cyclosilicate 10 Gm Powd.Pack) 10 gm PO SUTUTHSA@0900 [facility] Last Admin: 01/19/25 11:23 Dose: 10 gm Vitamin D (Cholecalciferol (Vitamin D3) 25 Mcg Tablet) 125 mcg PO DAILY [facility] Last Admin: 01/19/25 11:21 Dose: 125 mcg Home Medications ?Medication ?Instructions ?Recorded ?Confirmed ?Last Taken ?Type atenolol 100 mg tablet 1 tab PO DAILY 07/11/21 01/18/25 01/06/25 History blood sugar diagnostic (FreeStyle 07/11/21 10/30/24 10/30/24 09:00 History Lite Strips) dextroamphetamine-amphetamine 20 1 tab PO TID@0800,1400,1800 07/11/21 01/18/25 01/06/25 History mg tablet levothyroxine 137 mcg tablet 1 tab PO DAILY@0600 07/11/21 01/18/25 01/06/25 History pen needle, diabetic 31 gauge x 07/11/21 10/30/24 10/30/24 09:00 History 03/03 (BD Ultra-Fine Short Pen Needle) amlodipine 5 mg tablet 5 mg PO BID 09/03/23 01/18/25 01/06/25 History atorvastatin 40 mg tablet 40 mg PO DAILY 02/22/24 01/18/25 01/06/25 History sodium zirconium cyclosilicate 10 10 g PO SUTUTHSA@0900 06/19/24 01/18/25 01/05/25 History gram oral powder packet (Lokelma) alprazolam 0.5 mg tablet 0.5 mg PO DAILY PRN anxiety attack 10/30/24 01/18/25 10/30/24 09:00 History alprazolam 2 mg tablet 2 mg PO BID 10/30/24 01/18/25 01/06/25 History insulin lispro 100 unit/mL See Protocol subcut TIDAC PRN 10/30/24 01/18/25 10/30/24 09:00 History subcutaneous pen (Humalog KwikPen Blood Glucose (U-100) Insulin) vitamin D3 25 mcg (1,000 unit)-vit 1 tab PO SUTUTHSA@0900 11/02/24 01/18/25 01/05/25 History K2 90 mcg disintegrating tablet losartan 100 mg tablet 100 mg PO DAILY 01/09/25 01/18/25 01/06/25 History sevelamer carbonate 800 mg tablet 1,600 mg PO TIDWM 01/09/25 01/18/25 01/06/25 History albuterol sulfate 2.5 mg/3 mL 2.5 mg inhalation Q6H PRN Wheezing 01/18/25 01/18/25 Unknown History (0.083 %) solution for nebulization albuterol sulfate 90 mcg/actuation 2 puff inhalation Q6H PRN 01/18/25 01/18/25 Unknown History aerosol inhaler (Ventolin HFA) Shortness Of Breath Or Wheezing calcium carbonate (Tums) 200 mg PO TID PRN UPSET STOMACH 01/18/25 01/18/25 Unknown History cefuroxime axetil 500 mg tablet 500 mg PO DAILY 01/18/25 01/18/25 Unknown History cholecalciferol (vitamin D3) 125 125 mcg PO DAILY 01/18/25 01/18/25 Unknown History mcg (5,000 unit) tablet (Vitamin D3) guaifenesin 600 mg tablet, 600 mg PO BID 01/18/25 01/18/25 Unknown History extended release 12 hr (Mucinex) heparin (porcine) 5,000 unit/mL 5,000 unit subcut Q8H 01/18/25 01/18/25 Unknown History injection syringe insulin glargine 100 unit/mL 10 unit subcut BEDTIME 01/18/25 01/18/25 Unknown History subcutaneous solution (Lantus U-100 Insulin) melatonin 5 mg tablet 5 mg PO BEDTIME PRN Insomnia 01/18/25 01/18/25 Unknown History oseltamivir 30 mg capsule (Tamiflu) 30 mg PO Q2D 01/18/25 01/18/25 Unknown History prednisone 10 mg tablet 30 mg PO DAILY 01/18/25 01/18/25 Unknown History quetiapine 25 mg tablet (Seroquel) 25 mg PO BID PRN Agitation 01/18/25 01/18/25 Unknown History sevelamer carbonate 800 mg tablet 800 mg PO DAILY PRN SNACKS 01/18/25 01/18/25 Unknown History vitamin B complex and vitamin C 1 cap PO DAILY 01/18/25 01/18/25 Unknown History no.20-folic acid 1 mg capsule Physical Exam 2 Vital Signs: Vital Signs: Last Vital Signs Temp 98 F 01/19/25 10:53 Pulse 61 01/19/25 10:53 Resp 16 01/19/25 10:53 BP 146/67 H 01/19/25 10:53 Pulse Ox 99 01/19/25 10:53 O2 Del Method Room Air 01/19/25 10:53 BMI result Body Mass Index 31.0 Neuro: Other: He was alert and awake with normal spontaneity of speech fluency comprehension and flat affect. Face was symmetrical. Visual rider are full. He was able to move all 4 extremities without significant difficulty. He was able to lift legs against gravity. Deep tendon reflexes were absent with flexor plantars. Speech was normal. Results Labs 01/19/25 08:47 01/19/25 08:47 Labs: Short CBC 01/18/25 01/19/25 Range/Units 12:50 08:47 WBC 11.2 H 10.4 (4.8-10.8) X10*3/uL Hgb 11.0 L 10.5 L (14.0-18.0) g/dl Hct 30.8 L 28.8 L (42.0-52.0) % Plt Count 265 D 296 (160-400) X10*3/uL BMP 01/18/25 01/19/25 01/19/25 12:49 08:47 08:47 Sodium 127 L Cancelled 135 Potassium 5.4 H Cancelled Chloride 92 L Carbon Dioxide 21 L BUN 96 H Creatinine 9.34 H* Calcium 7.8 L D 01/19/25 01/19/25 01/19/25 08:47 08:47 08:47 Sodium Potassium 3.2 L D Chloride Cancelled 99 Carbon Dioxide Cancelled 25 BUN Cancelled Creatinine Calcium 01/19/25 01/19/25 01/19/25 08:47 08:47 08:47 Sodium Potassium Chloride Carbon Dioxide BUN 46 H Creatinine Cancelled 4.58 H* Calcium Cancelled 7.7 L Liver Function 01/18/25 01/19/25 Range/Units 12:49 08:47 Total Bilirubin 0.5 0.5 (0.0-1.0) mg/dL AST 18 20 (5-37) U/L ALT 17 15 (0-40) U/L Alkaline Phosphatase 51 53 (39-117) U/L Albumin 3.2 L 3.0 L (3.5-5.0) g/dL Urine 01/19/25 Range/Units 11:26 Urine Color Yellow Urine Appearance Clear Urine pH 8.5 (5.0-9.0) Ur Specific [place] <= 1.005 (1.005-1.025) Urine Protein 30 (1+) H (Neg-Trace) mg/dL Urine Glucose (UA) 250 H (Negative) mg/dL Head CT revealed moderate cerebral atrophy with moderate ventriculomegaly. Assessment and Plan (1) Multifactorial gait disorder: Status: Acute 70 years old man with multiple reasons for unsteadiness and gait abnormality including chronic peripheral neuropathy, cerebral atrophy, relatively large ventricles, and hyponatremia with abnormal renal functions. Recent worsening is likely due to metabolic abnormalities. As far as other issues are concerned, that could be looked at and investigated as an outpatient once he was treated for acute issues. Procedures Date of Service Date of Service: 01/19/25
--- NOTE | 2025-01-19 13:05 | MHC.CM.PN ---
PT FROM [facility] DOES NOT PT TO RETURN TO SAME SHE WANTS PT TO GO HOME W/[facility] FOR PT AND OT PT GOES [facility] WITH [facility]
[2025-01-19 15:26] VITALS: BP 163/78; PULSE 60; RESP 18; TEMP 36.8; O2SAT 100
[2025-01-19 16:25] LABS: Glucose, Whole Blood 233 mg/dL (60-115)
[2025-01-19] MEDS: Insulin Lispro 100 UNIT/ML 3 ML VIAL SUBCUT ×2 (16:38→20:43)
--- NOTE | 2025-01-19 18:06 | PM.CNNEP ---
History of Present Illness Reason for Consult Consult date: 01/19/25 Chief Complaint Chief complaint: Electrolyte abnormalities,encephalopathy History of Present Illness Narrative: 70-year-old man with ESRD on dialysis presenting [facility] the ER [facility] secondary to increased confusion, lower extremity weakness and gait abnormality. Apparently patient has been having difficulty keeping his balance. Patient had a fall approximately 3 days ago on 01/16/2025 and was seen at [facility] on 01/17/[address] scan. He has been leaning forward while walking . According to the stepdaughter before 01/10/2025 he had no confusion, he was alert and oriented x3 and had no gait abnormalities. Patient was vague but he knew the year, month and the place. He reported that this abnormal gait has been ongoing for a few months but this is unknown and at this time unable to verify. He was admitted for further management. Nephrology was consulted to assist in his clinical care during his current hospital stay Review of Systems Review of Systems Yes all other systems are reviewed and are negative PMFSH Past Medical History Medical History ESRD needing dialysis End stage kidney disease Secondary hyperparathyroidism (of renal origin) Anemia in chronic kidney disease DONIS (acute kidney injury) End stage renal disease on dialysis Diabetes Kidney failure HTN (hypertension) Social History Social History Household Members: Spouse Housing: House Are you a primary behavioral health care manager to a significant other at home: No Do you presently have visiting nurse or other home services: No Alcohol intake: never Comment: Pt turning off own bed alarm Kasie Pizarro NP aware provide with re-educa Patient Tobacco Use Status: Never used Tobacco Cigarette Packs Per Day: 0 Cigarettes Per Day: 0.0 Years Smoked: NA Smoked in Last 30 Days: No e-Cigarette/Vaping Use: Never Used Second Hand Smoke Exposure: No Use of substances other than those prescribed or required for medical reasons: No Currently Displaying Signs/Symptoms of Drug Intoxication Withdrawal: No Have you been hit, kicked, punched, or otherwise hurt by someone within the past year? If so, by whom?: No Do you feel safe in your current relationship?: Yes Is there a partner from a previous relationship who is making you feel unsafe now?: No Are you made to feel afraid or neglected: No Advance Directives: Yes Advance Directives Information Provided: No Advance Directives on File: Yes Advance Directives Date on File: 09/07/23 Do you have a plan to hurt others: No Plan Recently lost weight without trying: No Nutrition Risks: No Nutritional Risk Poor oral hygiene: No service: No Meds Allergies Allergy/AdvReac Type Severity Reaction Status Date / Time Penicillins [PENICILLINS] Allergy Unknown RASH Verified 01/18/25 11:47 tramadol [From ULTRAM] Allergy Unknown RASH Verified 01/18/25 11:47 trazodone [TRAZODONE] Allergy Unknown PRIAPISM Verified 01/18/25 11:47 risperidone [RISPERIDONE] AdvReac Severe dizzy, EPS Verified 01/18/25 11:47 Active Medications: Current Medications Acetaminophen (Acetaminophen 325 Mg Tablet) 650 mg PO Q6H PRN PRN Reason: Pain, Mild 1-3,fever,headache Albuterol Sulfate (Albuterol Sulfate (0.083%) 2.5 Mg/3 Ml Vial.Neb) 2.5 mg INHALE Q6H PRN PRN Reason: Wheezing Alprazolam (Alprazolam 0.5 Mg Tablet) 0.5 mg PO DAILY PRN PRN Reason: anxiety attack Alprazolam (Alprazolam 0.5 Mg Tablet) 2 mg PO BID [facility] Last Admin: 01/19/25 11:20 Dose: 2 mg Amlodipine Besylate (Amlodipine Besylate 5 Mg Tablet) 5 mg PO BID [facility]; Protocol Last Admin: 01/19/25 11:23 Dose: 5 mg Amphetamine/Dextroamphetamine (Amphetamine Mixed Salts 20 Mg Tablet) 20 mg PO TID@0800,1400,1800 [facility] Last Admin: 01/19/25 16:39 Dose: 20 mg Atenolol (Atenolol 100 Mg Tablet) 100 mg PO DAILY [facility]; Protocol Last Admin: 01/19/25 11:22 Dose: 100 mg Atorvastatin Calcium (Atorvastatin Calcium 40 Mg Tablet) 40 mg PO DAILY [facility] Last Admin: 01/19/25 11:22 Dose: 40 mg Calcium Carbonate (Calcium Carbonate 750 Mg Tab.Chew) 750 mg PO Q4H PRN PRN Reason: Heartburn Dextrose (Dextrose 50 % 25 Gm/50 Ml Syringe) 25 gm IVPUSH Q15M PRN; Protocol PRN Reason: per Hypoglycemia Standing Ord. Glucose (Glucose Gel 15 Gm Gel..Gram.) 15 gm PO Q15M PRN; Protocol PRN Reason: per Hypoglycemia Standing Ord. Heparin Sodium (Porcine) (Heparin Sodium,Porcine 5,000 Unit/Ml Vial) 5,000 unit SUBCUT Q8H [facility] Last Admin: 01/19/25 16:38 Dose: 5,000 unit Hydromorphone HCl (Hydromorphone Hcl 2 Mg Tablet) 4 mg PO Q3H PRN PRN Reason: Severe Pain (Scale Score 7-10) Last Admin: 01/19/25 14:11 Dose: 4 mg Insulin Human Lispro (Insulin Lispro 100 Unit/Ml 3 Ml Vial) 0 unit SUBCUT QIDACHS [facility]; Protocol Last Admin: 01/19/25 16:38 Dose: 4 unit Levothyroxine Sodium 112 mcg/ (Levothyroxine Sodium 25 mcg) 137 mcg PO DAILY@0600 [facility] Lidocaine HCl (Lidocaine Hcl 1 % Mpf 2 Ml Vial) 0.5 ml SUBCUT MOWEFR@1645 [facility] Losartan Potassium (Losartan Potassium 50 Mg Tablet) 100 mg PO DAILY [facility]; Protocol Magnesium Hydroxide (Milk Of Magnesia 30 Ml Oral.Susp) 30 ml PO DAILY PRN PRN Reason: Constipation Melatonin (Melatonin 3 Mg Tablet) 6 mg PO BEDTIME PRN PRN Reason: Insomnia Multivitamins/Vitamin C (Multivitamin Tablet) 1 tab PO DAILY [facility] Last Admin: 01/19/25 11:21 Dose: 1 tab Ondansetron HCl (Ondansetron Hcl 4 Mg/2 Ml Vial) 4 mg IVPUSH Q8H PRN PRN Reason: Nausea and Vomiting Prednisone (Prednisone 10 Mg Tablet) 30 mg PO DAILY [facility] Last Admin: 01/19/25 11:21 Dose: 30 mg Quetiapine Fumarate (Quetiapine Fumarate 25 Mg Tablet) 25 mg PO BID PRN PRN Reason: Agitation Sevelamer Carbonate (Sevelamer Carbonate Tablet 800 Mg Tablet) 800 mg PO DAILY PRN PRN Reason: SNACKS Sevelamer Carbonate (Sevelamer Carbonate Tablet 800 Mg Tablet) 1,600 mg PO TIDWM [facility] Last Admin: 01/19/25 16:39 Dose: 1,600 mg Sodium Chloride (0.9 % Sodium Chloride Flush 3 Ml Syringe) 3 ml IVFLUSH QSHIFT [facility] Last Admin: 01/19/25 16:39 Dose: 3 ml Sodium Zirconium Cyclosilicate (Sodium Zirconium Cyclosilicate 10 Gm Powd.Pack) 10 gm PO SUTUTHSA@0900 [facility] Last Admin: 01/19/25 11:23 Dose: 10 gm Vitamin D (Cholecalciferol (Vitamin D3) 25 Mcg Tablet) 125 mcg PO DAILY [facility] Last Admin: 01/19/25 11:21 Dose: 125 mcg Home Medications ?Medication ?Instructions ?Recorded ?Confirmed ?Last Taken ?Type atenolol 100 mg tablet 1 tab PO DAILY 07/11/21 01/18/25 01/06/25 History blood sugar diagnostic (FreeStyle 07/11/21 10/30/24 10/30/24 09:00 History Lite Strips) dextroamphetamine-amphetamine 20 1 tab PO TID@0800,1400,1800 07/11/21 01/18/25 01/06/25 History mg tablet levothyroxine 137 mcg tablet 1 tab PO DAILY@0600 07/11/21 01/18/25 01/06/25 History pen needle, diabetic 31 gauge x 07/11/21 10/30/24 10/30/24 09:00 History 5/16 (BD Ultra-Fine Short Pen Needle) amlodipine 5 mg tablet 5 mg PO BID 09/03/23 01/18/25 01/06/25 History atorvastatin 40 mg tablet 40 mg PO DAILY 02/22/24 01/18/25 01/06/25 History sodium zirconium cyclosilicate 10 10 g PO SUTUTHSA@0900 06/19/24 01/18/25 01/05/25 History gram oral powder packet (Lokelma) alprazolam 0.5 mg tablet 0.5 mg PO DAILY PRN anxiety attack 10/30/24 01/18/25 10/30/24 09:00 History alprazolam 2 mg tablet 2 mg PO BID 10/30/24 01/18/25 01/06/25 History insulin lispro 100 unit/mL See Protocol subcut TIDAC PRN 10/30/24 01/18/25 10/30/24 09:00 History subcutaneous pen (Humalog KwikPen Blood Glucose (U-100) Insulin) vitamin D3 25 mcg (1,000 unit)-vit 1 tab PO SUTUTHSA@0900 11/02/24 01/18/25 01/05/25 History K2 90 mcg disintegrating tablet losartan 100 mg tablet 100 mg PO DAILY 01/09/25 01/18/25 01/06/25 History sevelamer carbonate 800 mg tablet 1,600 mg PO TIDWM 01/09/25 01/18/25 01/06/25 History albuterol sulfate 2.5 mg/3 mL 2.5 mg inhalation Q6H PRN Wheezing 01/18/25 01/18/25 Unknown History (0.083 %) solution for nebulization albuterol sulfate 90 mcg/actuation 2 puff inhalation Q6H PRN 01/18/25 01/18/25 Unknown History aerosol inhaler (Ventolin HFA) Shortness Of Breath Or Wheezing calcium carbonate (Tums) 200 mg PO TID PRN UPSET STOMACH 01/18/25 01/18/25 Unknown History cefuroxime axetil 500 mg tablet 500 mg PO DAILY 01/18/25 01/18/25 Unknown History cholecalciferol (vitamin D3) 125 125 mcg PO DAILY 01/18/25 01/18/25 Unknown History mcg (5,000 unit) tablet (Vitamin D3) guaifenesin 600 mg tablet, 600 mg PO BID 01/18/25 01/18/25 Unknown History extended release 12 hr (Mucinex) heparin (porcine) 5,000 unit/mL 5,000 unit subcut Q8H 01/18/25 01/18/25 Unknown History injection syringe insulin glargine 100 unit/mL 10 unit subcut BEDTIME 01/18/25 01/18/25 Unknown History subcutaneous solution (Lantus U-100 Insulin) melatonin 5 mg tablet 5 mg PO BEDTIME PRN Insomnia 01/18/25 01/18/25 Unknown History oseltamivir 30 mg capsule (Tamiflu) 30 mg PO Q2D 01/18/25 01/18/25 Unknown History prednisone 10 mg tablet 30 mg PO DAILY 01/18/25 01/18/25 Unknown History quetiapine 25 mg tablet (Seroquel) 25 mg PO BID PRN Agitation 01/18/25 01/18/25 Unknown History sevelamer carbonate 800 mg tablet 800 mg PO DAILY PRN SNACKS 01/18/25 01/18/25 Unknown History vitamin B complex and vitamin C 1 cap PO DAILY 01/18/25 01/18/25 Unknown History no.20-folic acid 1 mg capsule Physical Exam Vital Signs: Last Vital Signs Temp 98.2 F 01/19/25 15:26 Pulse 60 01/19/25 15:26 Resp 18 01/19/25 15:26 BP 163/78 H 01/19/25 15:26 Pulse Ox 100 01/19/25 15:26 O2 Del Method Room Air 01/19/25 15:26 BMI result Body Mass Index 31.0 Const General: no acute distress Eyes EOM: EOMs intact bilaterally Resp Auscultation: diminished lung sounds Cardio Rate: regular rate GI Palpation (GI): Soft to palpation Neuro General: moves all extremities Results Lab Results 01/19/25 08:47 01/19/25 08:47 Lab results: Chemistry 01/18/25 01/19/25 01/19/25 12:49 08:47 08:47 Sodium 127 L Cancelled 135 Potassium 5.4 H Cancelled Carbon Dioxide 21 L BUN 96 H Creatinine 9.34 H* Calcium 7.8 L D 01/19/25 01/19/25 01/19/25 08:47 08:47 08:47 Sodium Potassium 3.2 L D Carbon Dioxide Cancelled 25 BUN Cancelled 46 H Creatinine Cancelled Calcium 01/19/25 01/19/25 08:47 08:47 Sodium Potassium Carbon Dioxide BUN Creatinine 4.58 H* Calcium Cancelled 7.7 L Hematology 01/18/25 01/19/25 12:50 08:47 WBC 11.2 H 10.4 Hgb 11.0 L 10.5 L Plt Count 265 D 296 Urinalysis 01/19/25 11:26 Urine Color Yellow Urine Appearance Clear Urine pH 8.5 Ur Specific [place] <= 1.005 Urine Protein 30 (1+) H Urine Glucose (UA) 250 H Urine Ketones Negative Urine Blood Trace H Urine Nitrite Negative Ur Leukocyte Esterase Negative Urine RBC 3-5 H Urine WBC 0-5 Ur Squamous Epith Cells 0-2 Hyaline Casts 0-2 Assessment and Plan (1) ESRD needing dialysis: Status: Acute Plan He was put back on his dialysis today & would be on MWF schedule. I saw him on dialysis as well. His dry weight needs to be brought down. He should be on a low-sodium, low phosphorus diet with a fluid restriction. He should take phosphorus binders 3 times a day with meals. Procrit [id number] U once a week. C/W rest of current management. We shall closely follow-up him up during his current hospital stay for continued care. Procedures Date of Service Date of Service: 01/19/25
[2025-01-19 19:40] VITALS: BP 146/67; PULSE 57; RESP 18; TEMP 36.3; O2SAT 100
[2025-01-19 20:43] LABS: Glucose, Whole Blood 181 mg/dL (60-115)
[2025-01-20] MEDS: HYDROmorphone HCl 2 MG TABLET 4 MG PO ×6 (01:49→21:40)
[2025-01-20 03:08] VITALS: BP 164/81; PULSE 63; RESP 18; TEMP 36.3; O2SAT 99
[2025-01-20] MEDS: Levothyroxine Sodium 112 MCG, Levothyroxine Sodium 25 MCG 137 MCG PO (05:42)
[2025-01-20 07:41] VITALS: BP 151/67; PULSE 63; RESP 18; TEMP 36.6; O2SAT 99
[2025-01-20 07:41] LABS: Glucose, Whole Blood 220 mg/dL (60-115)
[2025-01-20] MEDS: Insulin Lispro 100 UNIT/ML 3 ML VIAL SUBCUT ×4 (08:29→21:40)
[2025-01-20] MEDS: Heparin Sodium,Porcine 5,000 UNIT/ML VIAL 5000 UNIT SUBCUT ×2 (08:31→17:58)
[2025-01-20] MEDS: Cholecalciferol (Vitamin D3) 25 MCG TABLET 125 MCG PO (08:31)
[2025-01-20] MEDS: Sevelamer Carbonate Tablet 800 MG TABLET 1600 MG PO ×3 (08:32→17:57)
[2025-01-20] MEDS: predniSONE 10 MG TABLET 30 MG PO (08:33)
[2025-01-20] MEDS: Amphetamine Mixed Salts 20 MG TABLET PO ×2 (08:33→17:58)
[2025-01-20] MEDS: Losartan Potassium 50 MG TABLET 100 MG PO (08:33)
[2025-01-20] MEDS: Multivitamin TABLET 1 TAB PO (08:33)
[2025-01-20] MEDS: ALPRAZolam 0.5 MG TABLET 2 MG PO ×2 (08:33→21:37)
[2025-01-20] MEDS: atenoloL 100 MG TABLET PO (08:33)
[2025-01-20] MEDS: 0.9 % Sodium Chloride Flush 3 ML SYRINGE IVFLUSH ×2 (08:34→21:41)
[2025-01-20] MEDS: amLODIPine Besylate 5 MG TABLET PO ×2 (08:34→21:38)
[2025-01-20] MEDS: Atorvastatin Calcium 40 MG TABLET PO (08:34)
[2025-01-20 08:47] LABS: Hematocrit 31.6 % (42.0-52.0); Hemoglobin 10.9 g/dl (14.0-18.0); Mean Corpuscular HGB Conc 34.5 g/dl (31.0-36.0); Mean Corpuscular Hemoglobin 30.4 pg (27.0-33.0); Mean Corpuscular Volume 88.3 fL (80.0-98.0); Mean Platelet Volume 10.5 fL (9.4-12.4); Platelet Count 270 X10*3/uL (160-400); Red Blood Count 3.58 X10*6/uL (4.60-5.80); Red Cell Distribution Width 14.5 % (11.0-16.0); White Blood Count 10.2 X10*3/uL (4.8-10.8)
[2025-01-20 08:53] VITALS: BP 151/67; PULSE 63; O2SAT 99
--- NOTE | 2025-01-20 09:00 | P.CONGS_ITS ---
<Statement entered by Pj Rodrigez MD - 01/20/25 10:37> I have seen and evaluated the patient and agree with history, findings, assessment and plan documented by Onelia Martinez PA-c. If true thrombus may benefit from tertiary care center History of Present Illness Consult details Consult date: 01/20/25 <Onelia Martinez PA-C - Last Filed: 01/20/25 09:26> Narrative: We were consulted for Emma, for concerns of findings on brain MRI of an occlusive thrombus in the left internal jugular and left sigmoid transverse sinus. Juan presented to the ER yesterday from [facility] for concerns of worsening confusion, lower extremity weakness, and gait abnormalities. There were concerns of him leaning forward when he walks as well. He has a medical history pertinent for ESRD on HD M/W/F, DM II, HTN, and secondary hyperparathyroidism. He was recently seen here and diagnosed with Flu A. He also recently had a fall on 01/16 and was seen at [place] on 01/17. His last HD was on 01/19. His head CT and CXR were negative. He was found to have an occlusive thrombus in the left internal jugular bulb and left sigmoid transverse sinus. The pt has no complaints this morning other than bilateral lower extremity pain (going on years) and that he wants to go home. He denies any generalized weakness, aphasia, dysphagia, vision changes, headaches, or hearing concerns. He is eating, drinking, and sleeping well. He is oriented x3, just confused to time only. <Onelia Martinez PA-C - Last Filed: 01/20/25 09:26> Review of Systems 2 Constitutional: Constitutional: Reports as per HPI and Denies weakness < Onelia Martinez PA-C - Last Filed: 01/20/25 09:26> ENT: Reports Normal hearing present and Denies dizziness <Onelia Martinez PA-C - Last Filed: 01/20/25 09:26> Cardiovascular: Cardiovascular: Reports as per HPI, Denies chest pain, Denies chest pain at rest, Denies chest pain with activity, Denies dyspnea and Denies dyspnea on exertion <Onelia Martinez PA-C - Last Filed: 01/20/25 09:26> Respiratory: Respiratory: Reports as per HPI, Denies cough, Denies dyspnea and Denies dyspnea on exertion <Onelia Martinez PA-C - Last Filed: 01/20/25 09:26> Gastrointestinal: Gastrointestinal: Reports as per HPI, Denies abdominal pain, Denies nausea and Denies vomiting <Onelia Martinez PA-C - Last Filed: 01/20/25 09:26> Musculoskeletal: Musculoskeletal: Denies numbness <Onelia Martinez PA-C - Last Filed: 01/20/25 09:26> Integumentary/Breasts: Skin/Breast: Reports as per HPI, Denies erythema and Denies wounds <Onelia Martinez PA-C Last Filed: 01/20/25 09:26> Neurologic: Reports Normal hearing present, Denies dizziness, Denies numbness, Denies Sensory deficit (Neuro) and Denies weakness <Onelia Martinez PA-C Last Filed: 01/20/25 09:26> Psychiatric: Psychiatric: Reports no additional psychiatric complaints < Onelia Martinez PA-C Last Filed: 01/20/25 09:26> Endocrine: Endocrine: Reports no additional endocrine complaints <Onelia Martinez PA-C Last Filed: 01/20/25 09:26> [facility] Past Medical History Medical History: Medical History ESRD needing dialysis End stage kidney disease Secondary hyperparathyroidism (of renal origin) Anemia in chronic kidney disease DONIS (acute kidney injury) End stage renal disease on dialysis Diabetes Kidney failure HTN (hypertension) <Onelia Martinez PA-C Last Filed: 01/20/25 09:26> Social History Social History: Social History Household Members: Spouse Housing: House Are you a primary personal care aide to a significant other at home: No Do you presently have visiting nurse or other home services: No Alcohol intake: never Comment: Pt turning off own bed alarm Kasie Pizarro [employer] aware provide with re- educa Patient Tobacco Use Status: Never used Tobacco Cigarette Packs Per Day: 0 Cigarettes Per Day: 0.0 Years Smoked: NA Smoked in Last 30 Days: No e-Cigarette/Vaping Use: Never Used Second Hand Smoke Exposure: No Use of substances other than those prescribed or required for medical reasons: No Currently Displaying Signs/Symptoms of Drug Intoxication Withdrawal: No Have you been hit, kicked, punched, or otherwise hurt by someone within the past year? If so, by whom?: No Do you feel safe in your current relationship?: Yes Is there a partner from a previous relationship who is making you feel unsafe now?: No Are you made to feel afraid or neglected: No Advance Directives: Yes Advance Directives Information Provided: No Advance Directives on File: Yes Advance Directives Date on File: 09/07/23 Do you have a plan to hurt others: No Plan Recently lost weight without trying: No Nutrition Risks: No Nutritional Risk Poor oral hygiene: No service: No <Onelia Martinez PA-C - Last Filed: 01/20/25 09:26> Meds Allergies/Adverse reactions: Allergies Allergy/AdvReac Type Severity Reaction Status Date / Time Penicillins [PENICILLINS] Allergy Unknown RASH Verified 01/18/25 11:47 tramadol [From ULTRAM] Allergy Unknown RASH Verified 01/18/25 11:47 trazodone [TRAZODONE] Allergy Unknown PRIAPISM Verified 01/18/25 11:47 risperidone [RISPERIDONE] AdvReac Severe dizzy, EPS Verified 01/18/25 11:47 <Onelia Martinez PA-C - Last Filed: 01/20/25 09:26> Active Medications: Current Medications Acetaminophen (Acetaminophen 325 Mg Tablet) 650 mg PO Q6H PRN PRN Reason: Pain, Mild 1-3,fever,headache Albuterol Sulfate (Albuterol Sulfate (0.083%) 2.5 Mg/3 Ml Vial.Neb) 2.5 mg INHALE Q6H PRN PRN Reason: Wheezing Alprazolam (Alprazolam 0.5 Mg Tablet) 0.5 mg PO DAILY PRN PRN Reason: anxiety attack Alprazolam (Alprazolam 0.5 Mg Tablet) 2 mg PO BID [facility] Last Admin: 01/20/25 08:33 Dose: 2 mg Amlodipine Besylate (Amlodipine Besylate 5 Mg Tablet) 5 mg PO BID [facility]; Protocol Last Admin: 01/20/25 08:34 Dose: 5 mg Amphetamine/Dextroamphetamine (Amphetamine Mixed Salts 20 Mg Tablet) 20 mg PO TID@0800,1400,1800 [facility] Last Admin: 01/20/25 08:33 Dose: 20 mg Atenolol (Atenolol 100 Mg Tablet) 100 mg PO DAILY [facility]; Protocol Last Admin: 01/20/25 08:33 Dose: 100 mg Atorvastatin Calcium (Atorvastatin Calcium 40 Mg Tablet) 40 mg PO DAILY [facility] Last Admin: 01/20/25 08:34 Dose: 40 mg Calcium Carbonate (Calcium Carbonate 750 Mg Tab.Chew) 750 mg PO Q4H PRN PRN Reason: Heartburn Dextrose (Dextrose 50 % 25 Gm/50 Ml Syringe) 25 gm IVPUSH Q15M PRN; Protocol PRN Reason: per Hypoglycemia Standing Ord. Glucose (Glucose Gel 15 Gm Gel..Gram.) 15 gm PO Q15M PRN; Protocol PRN Reason: per Hypoglycemia Standing Ord. Heparin Sodium (Porcine) (Heparin Sodium,Porcine 5,000 Unit/Ml Vial) 5,000 unit SUBCUT Q8H [facility] Last Admin: 01/20/25 08:31 Dose: 5,000 unit Hydromorphone HCl (Hydromorphone Hcl 2 Mg Tablet) 4 mg PO Q3H PRN PRN Reason: Severe Pain (Scale Score 7-10) Last Admin: 01/20/25 08:51 Dose: 4 mg Insulin Human Lispro (Insulin Lispro 100 Unit/Ml 3 Ml Vial) 0 unit SUBCUT QIDACHS [facility]; Protocol Last Admin: 01/20/25 08:29 Dose: 1 unit Levothyroxine Sodium 112 mcg/ (Levothyroxine Sodium 25 mcg) 137 mcg PO DAILY@0600 [facility] Last Admin: 01/20/25 05:42 Dose: 137 mcg Lidocaine HCl (Lidocaine Hcl 1 % Mpf 2 Ml Vial) 0.5 ml SUBCUT MOWEFR@1645 [facility] Losartan Potassium (Losartan Potassium 50 Mg Tablet) 100 mg PO DAILY [facility]; Protocol Last Admin: 01/20/25 08:33 Dose: 100 mg Magnesium Hydroxide (Milk Of Magnesia 30 Ml Oral.Susp) 30 ml PO DAILY PRN PRN Reason: Constipation Melatonin (Melatonin 3 Mg Tablet) 6 mg PO BEDTIME PRN PRN Reason: Insomnia Multivitamins/Vitamin C (Multivitamin Tablet) 1 tab PO DAILY [facility] Last Admin: 01/20/25 08:33 Dose: 1 tab Ondansetron HCl (Ondansetron Hcl 4 Mg/2 Ml Vial) 4 mg IVPUSH Q8H PRN PRN Reason: Nausea and Vomiting Prednisone (Prednisone 10 Mg Tablet) 30 mg PO DAILY [facility] Last Admin: 01/20/25 08:33 Dose: 30 mg Quetiapine Fumarate (Quetiapine Fumarate 25 Mg Tablet) 25 mg PO BID PRN PRN Reason: Agitation Sevelamer Carbonate (Sevelamer Carbonate Tablet 800 Mg Tablet) 800 mg PO DAILY PRN PRN Reason: SNACKS Sevelamer Carbonate (Sevelamer Carbonate Tablet 800 Mg Tablet) 1,600 mg PO TIDWM [facility] Last Admin: 01/20/25 08:32 Dose: 1,600 mg Sodium Chloride (0.9 % Sodium Chloride Flush 3 Ml Syringe) 3 ml IVFLUSH QSHIFT [facility] Last Admin: 01/20/25 08:34 Dose: 3 ml Sodium Zirconium Cyclosilicate (Sodium Zirconium Cyclosilicate 10 Gm Powd.Pack) 10 gm PO SUTUTHSA@0900 [facility] Last Admin: 01/19/25 11:23 Dose: 10 gm Vitamin D (Cholecalciferol (Vitamin D3) 25 Mcg Tablet) 125 mcg PO DAILY [facility] Last Admin: 01/20/25 08:31 Dose: 125 mcg <Onelia Martinez PA-C - Last Filed: 01/20/25 09:26> Home medications: Home Medications ?Medication ?Instructions ?Recorded ?Confirmed ?Last Taken ?Type atenolol 100 mg tablet 1 tab PO DAILY 07/11/21 01/18/25 01/06/25 History blood sugar diagnostic (FreeStyle 07/11/21 10/30/24 10/30/24 09:00 History Lite Strips) dextroamphetamine-amphetamine 20 1 tab PO TID@0800,1400,1800 07/11/21 01/18/25 01/06/25 History mg tablet levothyroxine 137 mcg tablet 1 tab PO DAILY@0600 07/11/21 01/18/25 01/06/25 History pen needle, diabetic 31 gauge x 07/11/21 10/30/24 10/30/24 09:00 History 03/03 (BD Ultra-Fine Short Pen Needle) amlodipine 5 mg tablet 5 mg PO BID 09/03/23 01/18/25 01/06/25 History atorvastatin 40 mg tablet 40 mg PO DAILY 02/22/24 01/18/25 01/06/25 History sodium zirconium cyclosilicate 10 10 g PO SUTUTHSA@0900 06/19/24 01/18/25 01/05/25 History gram oral powder packet (Lokelma) alprazolam 0.5 mg tablet 0.5 mg PO DAILY PRN anxiety attack 10/30/24 01/18/25 10/30/24 09:00 History alprazolam 2 mg tablet 2 mg PO BID 10/30/24 01/18/25 01/06/25 History insulin lispro 100 unit/mL See Protocol subcut TIDAC PRN 10/30/24 01/18/25 10/30/24 09:00 History subcutaneous pen (Humalog KwikPen Blood Glucose (U-100) Insulin) vitamin D3 25 mcg (1,000 unit)-vit 1 tab PO SUTUTHSA@0900 11/02/24 01/18/25 01/05/25 History K2 90 mcg disintegrating tablet losartan 100 mg tablet 100 mg PO DAILY 01/09/25 01/18/25 01/06/25 History sevelamer carbonate 800 mg tablet 1,600 mg PO TIDWM 01/09/25 01/18/25 01/06/25 History albuterol sulfate 2.5 mg/3 mL 2.5 mg inhalation Q6H PRN Wheezing 01/18/25 01/18/25 Unknown History (0.083 %) solution for nebulization albuterol sulfate 90 mcg/actuation 2 puff inhalation Q6H PRN 01/18/25 01/18/25 Unknown History aerosol inhaler (Ventolin HFA) Shortness Of Breath Or Wheezing calcium carbonate (Tums) 200 mg PO TID PRN UPSET STOMACH 01/18/25 01/18/25 Unknown History cefuroxime axetil 500 mg tablet 500 mg PO DAILY 01/18/25 01/18/25 Unknown History cholecalciferol (vitamin D3) 125 125 mcg PO DAILY 01/18/25 01/18/25 Unknown History mcg (5,000 unit) tablet (Vitamin D3) guaifenesin 600 mg tablet, 600 mg PO BID 01/18/25 01/18/25 Unknown History extended release 12 hr (Mucinex) heparin (porcine) 5,000 unit/mL 5,000 unit subcut Q8H 01/18/25 01/18/25 Unknown History injection syringe insulin glargine 100 unit/mL 10 unit subcut BEDTIME 01/18/25 01/18/25 Unknown History subcutaneous solution (Lantus U-100 Insulin) melatonin 5 mg tablet 5 mg PO BEDTIME PRN Insomnia 01/18/25 01/18/25 Unknown History oseltamivir 30 mg capsule (Tamiflu) 30 mg PO Q2D 01/18/25 01/18/25 Unknown History prednisone 10 mg tablet 30 mg PO DAILY 01/18/25 01/18/25 Unknown History quetiapine 25 mg tablet (Seroquel) 25 mg PO BID PRN Agitation 01/18/25 01/18/25 Unknown History sevelamer carbonate 800 mg tablet 800 mg PO DAILY PRN SNACKS 01/18/25 01/18/25 Unknown History vitamin B complex and vitamin C 1 cap PO DAILY 01/18/25 01/18/25 Unknown History no.20-folic acid 1 mg capsule <ISIDRO Aguirre Last Filed: 01/20/25 09:26> Physical Exam 2 Vital Signs: Vital Signs: Last Vital Signs Temp 97.8 F 01/20/25 07:41 Pulse 63 01/20/25 07:41 Resp 18 01/20/25 07:41 BP 151/67 H 01/20/25 07:41 Pulse Ox 99 01/20/25 07:41 O2 Del Method Room Air 01/20/25 07:41 BMI result Body Mass Index 31.0 <ISIDRO Aguirre Last Filed: 01/20/25 09:26> Const: General: comfortable and no acute distress <ISIDRO Aguirre Last Filed: 01/20/25 09:26> Orientation/consciousness: patient oriented x3 <ISIDRO Aguirre Last Filed: 01/20/25 09:26> HEENT: Ears: hearing grossly normal bilaterally <ISIDRO Aguirre Last Filed: 01/20/25 09:26> Resp: Effort & Inspection: normal respiratory effort and able to speak in complete sentences <ISIDRO Aguirre Last Filed: 01/20/25 09:26> Auscultation: clear to auscultation bilaterally <Onelia Stevenson ISIDRO Martinez - Last Filed: 01/20/25 09:26> Cardio: Rate: regular rate <Onelia Stevenson ISIDRO Martinez Rony Last Filed: 01/20/25 09:26> Rhythm: regular rhythm <Onelia Stevenson ISIDRO Martinez Last Filed: 01/20/25 09:26> Heart sounds: S1 normal heart sound present and S2 normal heart sound present <Onelia Stevenson ISIDRO Martinez Rony Last Filed: 01/20/25 09:26> Bruits: no abdominal aortic bruits, no carotid bruits, no femoral bruits and no renal bruits <Onelia Elva ISIDRO Martinez Rony Last Filed: 01/20/25 09:26> GI: Palpation (GI): No Abdominal aortic bruit present <Onelia Elva ISIDRO Martinez Rony Last Filed: 01/20/25 09:26> Neuro: Other: Just confused to time. <Onelia Elva ISIDRO Martinez Rony Last Filed: 01/20/25 09:26> General: patient oriented x3 <Onelia Elva ISIDRO Martinez Rony Last Filed: 01/20/25 09:26> Cranial nerves: Yes Normal hearing present <Onelia Elva ISIDRO Martinez Rony Last Filed: 01/20/25 09:26> Sensory Exam: No Sensory deficit (Neuro) <Onelia Elva ISIDRO Martinez Last Filed: 01/20/25 09:26> Results Labs Result diagrams: 01/20/25 08:28 01/20/25 08:28 <ISIDRO Aguirre Last Filed: 01/20/25 09:26> Labs: Abnormal lab results 01/19/25 01/19/25 01/19/25 Range/Units 08:47 11:26 11:51 RBC 3.40 L (4.60-5.80) X10*6/uL Hgb 10.5 L (14.0-18.0) g/dl Hct 28.8 L (42.0-52.0) % MCHC 36.5 H (31.0-36.0) g/dl Potassium 3.2 L D (3.3-5.1) mmol/L BUN 46 H (9-16) mg/dL Creatinine 4.58 H* (0.5-1.4) mg/dL POC Glucose 122 H (60-115) mg/dL Calcium 7.7 L (8.4-10.2) mg/dL Total Protein 5.2 L (6.5-8.0) g/dL Albumin 3.0 L (3.5-5.0) g/dL TSH 4.70 H (0.32-4.0) uIU/mL Urine Protein 30 (1+) H (Neg-Trace) mg/dL Urine Glucose (UA) 250 H (Negative) mg/dL Urine Blood Trace H (Negative) Urine RBC 3-5 H (0-2) /HPF 01/19/25 01/19/25 01/20/25 Range/Units 16:21 20:39 07:37 RBC (4.60-5.80) X10*6/uL Hgb (14.0-18.0) g/dl Hct (42.0-52.0) % MCHC (31.0-36.0) g/dl Potassium (3.3-5.1) mmol/L BUN (9-16) mg/dL Creatinine (0.5-1.4) mg/dL POC Glucose 233 H 181 H 220 H (60-115) mg/dL Calcium (8.4-10.2) mg/dL Total Protein (6.5-8.0) g/dL Albumin (3.5-5.0) g/dL TSH (0.32-4.0) uIU/mL Urine Protein (Neg-Trace) mg/dL Urine Glucose (UA) (Negative) mg/dL Urine Blood (Negative) Urine RBC (0-2) /HPF 01/20/25 Range/Units 08:28 RBC 3.58 L (4.60-5.80) X10*6/uL Hgb 10.9 L (14.0-18.0) g/dl Hct 31.6 L (42.0-52.0) % MCHC (31.0-36.0) g/dl Potassium (3.3-5.1) mmol/L BUN (9-16) mg/dL Creatinine (0.5-1.4) mg/dL POC Glucose (60-115) mg/dL Calcium (8.4-10.2) mg/dL Total Protein (6.5-8.0) g/dL Albumin (3.5-5.0) g/dL TSH (0.32-4.0) uIU/mL Urine Protein (Neg-Trace) mg/dL Urine Glucose (UA) (Negative) mg/dL Urine Blood (Negative) Urine RBC (0-2) /HPF Short CBC 01/19/25 01/20/25 Range/Units 08:47 08:28 WBC 10.4 10.2 (4.8-10.8) X10*3/uL Hgb 10.5 L 10.9 L (14.0-18.0) g/dl Hct 28.8 L 31.6 L (42.0-52.0) % Plt Count 296 270 (160-400) X10*3/uL BMP 01/19/25 01/19/25 01/19/25 08:47 08:47 08:47 Sodium Cancelled 135 Potassium Cancelled 3.2 L D Chloride Cancelled Carbon Dioxide BUN Creatinine Calcium 01/19/25 01/19/25 01/19/25 08:47 08:47 08:47 Sodium Potassium Chloride 99 Carbon Dioxide Cancelled 25 BUN Cancelled 46 H Creatinine Cancelled Calcium 01/19/25 01/19/25 08:47 08:47 Sodium Potassium Chloride Carbon Dioxide BUN Creatinine 4.58 H* Calcium Cancelled 7.7 L Liver Function 01/19/25 Range/Units 08:47 Total Bilirubin 0.5 (0.0-1.0) mg/dL AST 20 (5-37) U/L ALT 15 (0-40) U/L Alkaline Phosphatase 53 (39-117) U/L Albumin 3.0 L (3.5-5.0) g/dL Urine 01/19/25 Range/Units 11:26 Urine Color Yellow Urine Appearance Clear Urine pH 8.5 (5.0-9.0) Ur Specific [place] <= 1.005 (1.005-1.025) Urine Protein 30 (1+) H (Neg-Trace) mg/dL Urine Glucose (UA) 250 H (Negative) mg/dL All other labs normal. <Onelia Martinez PA-C - Last Filed: 01/20/25 09:26> Assessment and Plan (1) Internal jugular vein thrombosis: Qualifiers: Laterality: left Qualified Code(s): I82.C12 - Acute embolism and thrombosis of left internal jugular vein <Onelia Martinez PA-C - Last Filed: 01/20/25 09:26> Status: Acute <Onelia Martinez PA-C - Last Filed: 01/20/25 09:26> We were consulted on [place], for findings on brain MRI of an occlusive thrombus of the left internal jugular bulb and left sigmoid transverse sinus. The pt's confusion has resolved and he is only confused to time. He has no concerns of weakness, headaches, or any neuro changes this morning. An MR Venogram has been ordered. The pt is also due for HD today. We will await the results of the MRV. There are no acute vascular surgical interventions at this point. We would continue him on Heparin. We will continue to monitor. If there are any questions or concerns, please do not hesitate to reach out to us. < Onelia Martinez PA-C - Last Filed: 01/20/25 09:26> Procedures Date of Service Date of Service: 01/20/25 <Onelia Martinez PA-C - Last Filed: 01/20/25 09:26> 01/20/25 <Pj Rodrigez MD - Last Filed: 01/20/25 10:36>
[2025-01-20 09:02] LABS: Anion Gap 18 (12-20); Blood Urea Nitrogen 82 mg/dL (9-16); Calcium 7.6 mg/dL (8.4-10.2); Carbon Dioxide 23 mmol/L (22-29); Chloride 95 mmol/L (96-108); Creatinine Clr Calc Pharmacy 7.7; Estimated Glomerular Filt Rate 6; Glucose Random 210 mg/dL (60-115); Potassium 4.4 mmol/L (3.3-5.1); Sodium 132 mmol/L (135-145)
[2025-01-20 11:25] LABS: Glucose, Whole Blood 217 mg/dL (60-115)
[2025-01-20] MEDS: gadobutroL 10 ML VIAL IVPUSH (13:43)
--- NOTE | 2025-01-20 17:10 | P.PNIM_ITS ---
Subjective Subjective Date of Service: 01/20/25 Interval History: seen and examined this morning follow up for unsteady gait/confusion patient awake, alert and oriented to person/place concerned he doesn't need to be in the hospital denies any specific complaints Review of Systems Review of Systems: Yes all other systems are reviewed and are negative Constitutional Constitutional: Denies chills and Denies fever(s) Cardiovascular Cardiovascular: Denies chest pain, Denies palpitations and Denies dyspnea Respiratory Respiratory: Denies cough and Denies dyspnea Gastrointestinal Gastrointestinal: Denies abdominal pain, Denies nausea and Denies vomiting Endocrine Endocrine: Denies palpitations Physical Exam 2 Vital Signs: Vital Signs: Last Vital Signs Temp 97.8 F 01/20/25 07:41 Pulse 63 01/20/25 08:53 Resp 18 01/20/25 07:41 BP 151/67 H 01/20/25 08:53 Pulse Ox 99 01/20/25 08:53 O2 Del Method Room Air 01/20/25 07:41 BMI result Body Mass Index 31.0 Const: General: alert and awake Nutritional Appearance: average body habitus Resp: Effort & Inspection: normal respiratory effort, able to speak in complete sentences, no respiratory distress and no use of accessory muscles Cardio: Rate: regular rate GI: Inspection: No distended Palpation (GI): Soft to palpation Neuro: Other: grossly nonfocal Objective Data Active Medications Acetaminophen (Acetaminophen 325 Mg Tablet) 650 mg PO Q6H PRN PRN Reason: Pain, Mild 1-3,fever,headache Albuterol Sulfate (Albuterol Sulfate (0.083%) 2.5 Mg/3 Ml Vial.Neb) 2.5 mg INHALE Q6H PRN PRN Reason: Wheezing Alprazolam (Alprazolam 0.5 Mg Tablet) 0.5 mg PO DAILY PRN PRN Reason: anxiety attack Alprazolam (Alprazolam 0.5 Mg Tablet) 2 mg PO BID [facility] Last Admin: 01/20/25 08:33 Dose: 2 mg Documented By: AMBERLY Amlodipine Besylate (Amlodipine Besylate 5 Mg Tablet) 5 mg PO BID [facility]; Protocol Last Admin: 01/20/25 08:34 Dose: 5 mg Documented By: AMBERLY Amphetamine/Dextroamphetamine (Amphetamine Mixed Salts 20 Mg Tablet) 20 mg PO TID@0800,1400,1800 [facility] Last Admin: 01/20/25 14:11 Dose: Not Given Documented By: NADINE Non-Admin Reason: Off unit: Dialysis Atenolol (Atenolol 100 Mg Tablet) 100 mg PO DAILY [facility]; Protocol Last Admin: 01/20/25 08:33 Dose: 100 mg Documented By: AMBERLY Atorvastatin Calcium (Atorvastatin Calcium 40 Mg Tablet) 40 mg PO DAILY [facility] Last Admin: 01/20/25 08:34 Dose: 40 mg Documented By: AMBERLY Calcium Carbonate (Calcium Carbonate 750 Mg Tab.Chew) 750 mg PO Q4H PRN PRN Reason: Heartburn Dextrose (Dextrose 50 % 25 Gm/50 Ml Syringe) 25 gm IVPUSH Q15M PRN; Protocol PRN Reason: per Hypoglycemia Standing Ord. Glucose (Glucose Gel 15 Gm Gel..Gram.) 15 gm PO Q15M PRN; Protocol PRN Reason: per Hypoglycemia Standing Ord. Heparin Sodium (Porcine) (Heparin Sodium,Porcine 5,000 Unit/Ml Vial) 5,000 unit SUBCUT Q8H [facility] Last Admin: 01/20/25 08:31 Dose: 5,000 unit Documented By: AMBERLY Hydromorphone HCl (Hydromorphone Hcl 2 Mg Tablet) 4 mg PO Q3H PRN PRN Reason: Severe Pain (Scale Score 7-10) Last Admin: 01/20/25 14:05 Dose: 4 mg Documented By: NADINE Insulin Human Lispro (Insulin Lispro 100 Unit/Ml 3 Ml Vial) 0 unit SUBCUT QIDACHS [facility]; Protocol Last Admin: 01/20/25 11:56 Dose: 4 unit Documented By: NADINE Levothyroxine Sodium 112 mcg/ (Levothyroxine Sodium 25 mcg) 137 mcg PO DAILY@0600 [facility] Last Admin: 01/20/25 05:42 Dose: 137 mcg Documented By: MEGGAN Lidocaine HCl (Lidocaine Hcl 1 % Mpf 2 Ml Vial) 0.5 ml SUBCUT MOWEFR@1645 [facility] Losartan Potassium (Losartan Potassium 50 Mg Tablet) 100 mg PO DAILY [facility]; Protocol Last Admin: 01/20/25 08:33 Dose: 100 mg Documented By: AMBERLY Magnesium Hydroxide (Milk Of Magnesia 30 Ml Oral.Susp) 30 ml PO DAILY PRN PRN Reason: Constipation Melatonin (Melatonin 3 Mg Tablet) 6 mg PO BEDTIME PRN PRN Reason: Insomnia Multivitamins/Vitamin C (Multivitamin Tablet) 1 tab PO DAILY [facility] Last Admin: 01/20/25 08:33 Dose: 1 tab Documented By: AMBERLY Ondansetron HCl (Ondansetron Hcl 4 Mg/2 Ml Vial) 4 mg IVPUSH Q8H PRN PRN Reason: Nausea and Vomiting Prednisone (Prednisone 10 Mg Tablet) 30 mg PO DAILY [facility] Last Admin: 01/20/25 08:33 Dose: 30 mg Documented By: AMBERLY Quetiapine Fumarate (Quetiapine Fumarate 25 Mg Tablet) 25 mg PO BID PRN PRN Reason: Agitation Sevelamer Carbonate (Sevelamer Carbonate Tablet 800 Mg Tablet) 800 mg PO DAILY PRN PRN Reason: SNACKS Sevelamer Carbonate (Sevelamer Carbonate Tablet 800 Mg Tablet) 1,600 mg PO TIDWM [facility] Last Admin: 01/20/25 11:49 Dose: 1,600 mg Documented By: NADINE Sodium Chloride (0.9 % Sodium Chloride Flush 3 Ml Syringe) 3 ml IVFLUSH QSHIFT [facility] Last Admin: 01/20/25 08:34 Dose: 3 ml Documented By: AMBERLY Sodium Zirconium Cyclosilicate (Sodium Zirconium Cyclosilicate 10 Gm Powd.Pack) 10 gm PO SUTUTHSA@0900 [facility] Last Admin: 01/19/25 11:23 Dose: 10 gm Documented By: SYDNI Vitamin D (Cholecalciferol (Vitamin D3) 25 Mcg Tablet) 125 mcg PO DAILY [facility] Last Admin: 01/20/25 08:31 Dose: 125 mcg Documented By: AMBERLY Labs 01/20/25 08:28 01/20/25 08:28 Labs: Laboratory Results - last 24 hr 01/19/25 01/20/25 01/20/25 20:39 07:37 08:28 MCV 88.3 MCH 30.4 MCHC 34.5 RDW 14.5 Plt Count 270 MPV 10.5 Absolute Nucleated RBC 0.000 Nucleated RBC % (auto) 0.0 Anion Gap 18 Estim Creat Clear Calc 7.7 Estimated GFR 6 POC Glucose 181 H 220 H Random Glucose 210 H Calcium 7.6 L 01/20/25 11:22 MCV MCH MCHC RDW Plt Count MPV Absolute Nucleated RBC Nucleated RBC % (auto) Anion Gap Estim Creat Clear Calc Estimated GFR POC Glucose 217 H Random Glucose Calcium Assessment and Plan (1) Multifactorial gait disorder: Status: Acute (2) ESRD needing dialysis: Status: Acute Plan 70-year-old man with a history of end-stage renal disease on dialysis presenting with acute encephalopathy and gait abnormality Acute encephalopathy. oriented this morning no obvious infectious source. no fever Head CT without acute abnormality MRI ordered Gait abnormality reports this has been ongoing for few months. was seen by Neurology on previous admission who recommended outpatient EMG studies. MRI brain with concern for occlusive thrombus of the left internal jugular bulbs, left sigmoid and transverse sinuses-venogram obtained showing no main cerebral venous sinus thrombosis; normal MRV brain MRI also showing global cerebral atrophy with questionable normal pressure hydrocephalus imaging with possibility of NPH - d/w neurology - recommend outpatient neuro follow up seen by OT NEFTALI - moderate cognitive impairment, rec 11/05 care PT rec home with services Hyponatremia resolved Hyperkalemia resolved on chronic lokelma Hypertension Stable blood pressure Continue atenolol, norvasc , losartan Mental health continue baseline medications Hypothyroidism Continue levothyroxine End-stage renal disease on dialysis Dialysis Thursday, Thursday, Thursday, had HD 01/19, 01/20 nephrology following Normocytic anemia No acute bleeding Likely secondary to renal disease DVT prophylaxis with heparin Full code Quality Stroke Does the patient have a stroke diagnosis?: No VTE Prior VTE?: No VTE Risk Level:: Medical - moderate - high VTE Device Contraindication: Treatment Not Indicated VTE Drug Contraindication: N/A - Med Ordered
[2025-01-20 17:56] LABS: Glucose, Whole Blood 224 mg/dL (60-115)
--- NOTE | 2025-01-20 18:03 | P.PNNP_ITS ---
Subjective Subjective Date of Service: 01/20/25 Interval history: seen and examined this morning; patient awake, alert and oriented to person/place; denies any specific complaints Physical Exam 2 Vital Signs: Vital Signs: Last Vital Signs Temp 97.8 F 01/20/25 07:41 Pulse 63 01/20/25 08:53 Resp 18 01/20/25 07:41 BP 151/67 H 01/20/25 08:53 Pulse Ox 99 01/20/25 08:53 O2 Del Method Room Air 01/20/25 07:41 BMI result Body Mass Index 31.0 Const: General: no acute distress Eyes: EOM: EOMs intact bilaterally Neck: Neck: Yes supple Resp: Auscultation: diminished lung sounds Cardio: Rate: regular rate GI: Palpation (GI): Soft to palpation Neuro: General: moves all extremities Objective Data Labs 01/20/25 08:28 01/20/25 08:28 Labs: Laboratory Results - last 24 hr 01/19/25 01/20/25 01/20/25 20:39 07:37 08:28 WBC 10.2 RBC 3.58 L Hgb 10.9 L Hct 31.6 L MCV 88.3 MCH 30.4 MCHC 34.5 RDW 14.5 Plt Count 270 MPV 10.5 Absolute Nucleated RBC 0.000 Nucleated RBC % (auto) 0.0 Sodium 132 L Potassium 4.4 D Chloride 95 L Carbon Dioxide 23 Anion Gap 18 BUN 82 H Creatinine 9.05 H* Estim Creat Clear Calc 7.7 Estimated GFR 6 POC Glucose 181 H 220 H Random Glucose 210 H Calcium 7.6 L 01/20/25 01/20/25 11:22 17:53 WBC RBC Hgb Hct MCV MCH MCHC RDW Plt Count MPV Absolute Nucleated RBC Nucleated RBC % (auto) Sodium Potassium Chloride Carbon Dioxide Anion Gap BUN Creatinine Estim Creat Clear Calc Estimated GFR POC Glucose 217 H 224 H Random Glucose Calcium Procedures Date of Service Date of Service: 01/20/25 Assessment & Plan Assessment and plan (1) ESRD needing dialysis: Status: Acute Plan Shall keep him on MWF schedule. Shall dialyze him after MRV. He should be on a low-sodium, low phosphorus diet with a fluid restriction. He should take phosphorus binders 3 times a day with meals. Procrit [id number] U once a week. C/W rest of current management. We shall closely follow-up him up during his current hospital stay for continued care. Progress Note: Quality Stroke Does the patient have a stroke diagnosis?: No
[2025-01-20 19:13] VITALS: BP 149/67; PULSE 66; RESP 18; TEMP 36.8; O2SAT 96
[2025-01-20 19:20] LABS: Glucose, Whole Blood 294 mg/dL (60-115)
[2025-01-20 21:38] VITALS: BP 149/67
[2025-01-21] MEDS: HYDROmorphone HCl 2 MG TABLET 4 MG PO ×3 (00:46→08:36)
[2025-01-21] MEDS: Heparin Sodium,Porcine 5,000 UNIT/ML VIAL 5000 UNIT SUBCUT ×2 (00:46→08:35)
[2025-01-21 03:15] VITALS: BP 143/67; PULSE 65; RESP 16; TEMP 36.4; O2SAT 99
[2025-01-21] MEDS: Levothyroxine Sodium 112 MCG, Levothyroxine Sodium 25 MCG 137 MCG PO (05:35)
[2025-01-21 07:11] VITALS: BP 161/70; PULSE 62; RESP 18; TEMP 36; O2SAT 99
[2025-01-21 07:21] LABS: Glucose, Whole Blood 96 mg/dL (60-115)
[2025-01-21 08:37] VITALS: BP 167/79
[2025-01-21] MEDS: amLODIPine Besylate 5 MG TABLET PO (08:37)
[2025-01-21] MEDS: Multivitamin TABLET 1 TAB PO (08:37)
[2025-01-21 08:38] VITALS: PULSE 62
[2025-01-21] MEDS: Cholecalciferol (Vitamin D3) 25 MCG TABLET 125 MCG PO (08:38)
[2025-01-21] MEDS: atenoloL 100 MG TABLET PO (08:38)
[2025-01-21] MEDS: Losartan Potassium 50 MG TABLET 100 MG PO (08:39)
[2025-01-21] MEDS: Amphetamine Mixed Salts 20 MG TABLET PO (08:39)
[2025-01-21] MEDS: predniSONE 10 MG TABLET 30 MG PO (08:39)
[2025-01-21] MEDS: Atorvastatin Calcium 40 MG TABLET PO (08:39)
[2025-01-21] MEDS: Sevelamer Carbonate Tablet 800 MG TABLET 1600 MG PO ×2 (08:39→11:44)
[2025-01-21] MEDS: ALPRAZolam 0.5 MG TABLET 2 MG PO (08:40)
[2025-01-21] MEDS: 0.9 % Sodium Chloride Flush 3 ML SYRINGE IVFLUSH (08:40)
[2025-01-21 11:06] LABS: Glucose, Whole Blood 184 mg/dL (60-115)
--- NOTE | 2025-01-21 11:30 | P.DS_ITS ---
DS: Providers Provider Date of Service: 01/21/25 Date of admission: 01/18/25 17:32 Date of discharge: 01/21/25 Primary care physician: Matias Tan MD Consults: 01/18/25 15:27 Consult to Neurology Stat Consulting Provider: [facility] Reason for consultation: worsening confusion, new gait abnormality - forward leaning with rapid gait Has provider been notified: No 01/18/25 17:39 Consult to Nephrology Routine Consulting Provider: [facility] Reason for consultation: esrd, hyponatremia 01/20/25 07:13 Consult to Vascular Surgery Routine Consulting Provider: [facility] Reason for consultation: thrombus left internal jugular Has provider been notified: No Attending physician on discharge: Reyes Reyes Discharging clinician: Ginger La DS: Diagnosis Discharge Diagnosis (1) ESRD needing dialysis: Status: Acute (2) Multifactorial gait disorder: Status: Acute DS: Summary Hospital Course Hospital Course: From H&P on the day of admission 70-year-old man with a history of 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 Apparently patient has been having difficulty keeping his balance. Patient had a fall approximately 3 days ago on 01/16/2025 and was seen at [facility] on 01/17/[address] scan. He has been leaning forward while walking which according to the stepdaughter is new for the patient. According to the stepdaughter before 01/10/2025 he had no confusion, he was alert and oriented x3 and had no gait abnormalities. Patient was vague but he knew the year, month and the place. He reported that this abnormal gait has been ongoing for a few months but this is unknown and at this time unable to verify. in the ER, and he was given a dose of Lokelma for elevated ammonia. Plan will be to admit patient for further management and treatment of acute encephalopathy and gait abnormality. Acute encephalopathy. oriented this morning. no obvious infectious source. no f ever. Head CT without acute abnormality. Per , patient has had extensive workup with Neurology at [facility]. Per her report he has no history of dementia. She feels he is at his baseline and would like to take him home. Gait abnormality reports this has been ongoing for few months. was seen by Neurology on previous admission who recommended outpatient EMG studies. MRI brain with concern for occlusive thrombus of the left internal jugular bulbs, left sigmoid and transverse sinuses. Discussed with neurology and venogram was obtained showing no main cerebral venous sinus thrombosis; normal MRV brain. MRI also showing global cerebral atrophy with questionable normal pressure hydrocephalus. Discussed with Neurology, recommend outpatient neurology follow-up. As above patient's feels that he his at his baseline mental status. Imaging findings discussed with , she will make a follow-up appointment Neurology The patient was seen by OT MOCA indicating moderate cognitive impairment, rec 11/05 care. Patient's aware, she is home with him nearly all the time. He will be discharged home with PT and OT services. Hyponatremia resolved Hyperkalemia resolved on chronic lokelma Time Attestation Discharge Coordination Time (in mins): 36 Quality: Safe Use of Opioids Does Pt have an Active Cancer Diagnosis on the Problem List?: No Quality: Stroke Does the patient have a stroke diagnosis?: No Physical Exam Vital Signs: Vital Signs: Last Vital Signs Temp 96.8 F 01/21/25 07:11 Pulse 62 01/21/25 08:38 Resp 18 01/21/25 07:11 BP 167/79 H 01/21/25 08:37 Pulse Ox 99 01/21/25 07:11 O2 Del Method Room Air 01/21/25 07:11 BMI result Body Mass Index 31.0 Const: General: alert and awake Nutritional Appearance: average body habitus Resp: Effort & Inspection: normal respiratory effort, able to speak in complete sentences, no respiratory distress and no use of accessory muscles Cardio: Rate: regular rate GI: Inspection: No distended Palpation (GI): Soft to palpation Neuro: Other: grossly nonfocal DS: Data Data Completed and Pending Completed studies during hospitalization [Text1]: Procedures Assistance with Respiratory Ventilation, Less than 24 Consecutive Hours, Continuous Positive Airway Pressure (11/04/23) Performance of Urinary Filtration, Intermittent, Less than 6 Hours Per Day (01/09/25) Labs on day of discharge: Laboratory Results - last 24 hr 01/20/25 01/20/25 01/21/25 17:53 19:15 07:16 POC Glucose 224 H 294 H 96 01/21/25 11:03 POC Glucose 184 H Imaging MRI - head: Radiologist's impression: ITS Impressions Head CT 01/18/25 13:18 IMPRESSION: No acute intracranial abnormality. Electronically signed by: Ferdinand Love MD 01/18/2025 01:58 PM EDT RP Chest X-Ray 01/18/25 13:30 IMPRESSION: No acute airspace disease. Resolved pulmonary edema Electronically signed by: Dg Rob MD 01/18/2025 01:45 PM EDT RP Brain MRI 01/19/25 14:20 IMPRESSION: No acute stroke or acute intracranial hemorrhage. There is global cerebral atrophy with the questionable normal pressure hydrocephalus in the correct clinical settings. Concerning occlusive thrombus, left internal jugular bulb, left sigmoid and transverse sinuses. Electronically signed by: Dg Rob MD 01/19/2025 03:25 PM EDT RP Head/Brain Mag Res Venography 01/20/25 13:07 IMPRESSION: No main cerebral venous sinus thrombosis. Normal MRV brain. Electronically signed by: Dg Rob MD 01/20/2025 02:11 PM EDT RP MOCA: - indicating moderate cognitive impairment Patient was able to ID 3/3 animals Abstract thinking 2/2 Immediate memory 5/5 yet delayed recall 0/5 without cuing. Able to recall 4/5 with multiple choice options provided Visual spatial/executive function 0/5 Language 0/3 Discharge Plan Discharge Anticipated Discharge Date/Time: 01/21/25 11:41 Patient Disposition: Home Health Service Discharge Diagnosis: multifactorial gait disorder ESRD on HD Referrals: [facility]ILL [Outside] - 1 Week Pam Goddard MD [Physician] - 1 Week (gait disorder; imaging with ?NPH) Matias Tan MD [Primary Care Provider] - 1 Week Discharge Medications: Continued levothyroxine 137 mcg tablet 1 tab PO DAILY@0600 atenolol 100 mg tablet 1 tab PO DAILY dextroamphetamine-amphetamine 20 mg tablet 1 tab PO TID@0800,1400,1800 Lokelma 10 gram Powder In Packet 10 g PO SUTUTHSA@0900 Rx Instructions: on non dialysis days vitamin D3-vitamin K2 25 mcg (1,000 unit)-90 mcg Tablet,Disintegrating 1 tab PO SUTUTHSA@0900 losartan 100 mg tablet 100 mg PO DAILY sevelamer carbonate 800 mg tablet 1,600 mg PO TIDWM hydromorphone 4 mg tablet 4 mg PO Q3H PRN (Reason: Severe Pain (Scale Score 7-10)) Qty: 20 0RF quetiapine [Seroquel] 25 mg Tablet 25 mg PO BID PRN (Reason: Agitation) insulin glargine [Lantus U-100 Insulin] 100 unit/mL Solution 10 unit SUBCUT BEDTIME albuterol sulfate 2.5 mg /3 mL (0.083 %) Solution For Nebulization 2.5 mg INHALATION Q6H PRN (Reason: Wheezing) calcium carbonate [Tums] 200 mg calcium (500 mg) Tablet,Chewable 200 mg PO TID PRN (Reason: UPSET STOMACH) B complex with C 20-folic acid 1 mg Capsule 1 cap PO DAILY albuterol sulfate [Ventolin HFA] 90 mcg/actuation Hfa Aerosol Inhaler 2 puff INHALATION Q6H PRN (Reason: Shortness Of Breath Or Wheezing) sevelamer carbonate 800 mg Tablet 800 mg PO DAILY PRN (Reason: SNACKS) Rx Instructions: must administer with a meal/food melatonin 5 mg Tablet 5 mg PO BEDTIME PRN (Reason: Insomnia) cholecalciferol (vitamin D3) [Vitamin D3] 125 mcg (5,000 unit) Tablet 125 mcg PO DAILY amlodipine 5 mg tablet 5 mg PO BID atorvastatin 40 mg tablet 40 mg PO DAILY alprazolam 0.5 mg tablet 0.5 mg PO DAILY PRN (Reason: anxiety attack) alprazolam 2 mg tablet 2 mg PO BID insulin lispro [Humalog KwikPen Insulin] 100 unit/mL insulin pen See Protocol subcut TIDAC PRN (Reason: Blood Glucose) Protocol: Insulin Correction Scale Less than or equal to 110 ---- Give (units): 0 111 to 150 Give (units): 0 151 to 200 Give (units): 2 201 to 250 Give (units): 4 251 to 300 Give (units): 6 301 to 350 Give (units): 8 Greater than 350 Give (units): 10 Call MD if Blood Glucose > : 350 Discontinued prednisone 10 mg Tablet 30 mg PO DAILY heparin (porcine) 5,000 unit/mL Syringe 5,000 unit SUBCUT Q8H cefuroxime axetil 500 mg Tablet 500 mg PO DAILY oseltamivir [Tamiflu] 30 mg Capsule 30 mg PO Q2D guaifenesin [Mucinex] 600 mg Tablet Extended Release 12hr 600 mg PO BID No Action (DME) FreeStyle Lite Strips Strip MISCELLANEOUS TID (DME) pen needle, diabetic [BD Ultra-Fine Short Pen Needle] 31 gauge x 5/16 needle subcut DAILY Discharge Orders: Discharge Order (Routine); Ordered 01/21/25 Ordered By: Ginger La Activity on Discharge: As tolerated Stand Alone Forms: Patient Portal Discharge page Print Language: Bahraini Care Plan Goals: see below Health Concerns: encephalopathy gait disorder ESRD on HD Plan of Treatment: home with PT/OT services outpatient follow up with neurology recommended due to ?NPH on imaging and MOCA Assessment: see discharge summary Discharge Date/Time: 01/21/25 13:01
[2025-01-21] MEDS: Insulin Lispro 100 UNIT/ML 3 ML VIAL SUBCUT (11:44)
--- NOTE | 2025-01-21 12:13 | W.MHC.F2F ---
Service Date Service Date: 01/21/25 Encounter Date of encounter: 01/21/25 Reasons for Services Signs and symptoms assessed: needs senior care for blood sugar checks Reason for physical therapy: home safety and mobility, therapeutic exercises, gait/transfer training and energy conservation Reason for occupational therapy: ADL training Overseeing Care: Matias Tan Homebound: Leaving the home is medically contraindicated at this time without the asist of a device and/or another person due th the listed conditions above and below. Reason homebound: unsteady gait / fall risk Certification: Based on the above findings, I certify that this patient is confined to the home and needs intermittent senior care care, physical therapy and/or speech therapy, or continues to need occupational therapy. The patient is under my care, and I have initiated the establishment of the plan of care. The patient will be followed by a physician who will periodically review the plan of care. Time Spent With Patient Time: Total time managing care of this patient today ____ minutes.
--- NOTE | 2025-01-21 14:18 | MHC.CM.PN ---
IMM01/19/25 Patient is discharged to home with ERNST. He will resume HD @ [facility] Thursday. The center was called. t/w spoke with nurse. Patient is all set to resume -- 11:00 chair time. Patient's provides transport to HD. She was notified that HD schedule has been confirmed. She provided transportation home today at discharge.
== END 2025-01-21 13:01 | disposition home health service (06) | DRG 56 ==
LOC: HO.ED 17:27 → HO.EDOVER 17:40 → HO.S3 01-19 07:26
PROVIDERS: Physician Assistant Medical; Admitting Provider Nurse Practitioner Acute Care; Emergency Provider Emergency Medicine; PCP Family Medicine; Visit Provider Physician Assistant Medical
DX: G91.2 (Idiopathic) normal pressure hydrocephalus (principal); N18.6 End stage renal disease; I12.0 Hypertensive chronic kidney disease with stage 5 chronic kidney disease or end stage renal disease; E87.1 Hypo-osmolality and hyponatremia; J10.81 Influenza due to other identified influenza virus with encephalopathy; E03.9 Hypothyroidism, unspecified; E11.22 Type 2 diabetes mellitus with diabetic chronic kidney disease; D63.1 Anemia in chronic kidney disease; E11.42 Type 2 diabetes mellitus with diabetic polyneuropathy; G31.9 Degenerative disease of nervous system, unspecified; Z99.2 Dependence on renal dialysis; R26.9 Unspecified abnormalities of gait and mobility; E87.5 Hyperkalemia; Z20.822 Contact with and (suspected) exposure to COVID-19; Z79.4 Long term (current) use of insulin; Z79.890 Hormone replacement therapy; Z79.899 Other long term (current) drug therapy
CPT/HCPCS: 0241U; 36415; 70450; 70546; 70551; 71045; 80048; 80053; 81001; 82140; 82947; 83735; 84443; 85025; 85027; 86780; 90999; 93005; 97161; 97166; 99285; A9585; J1644

== ENCOUNTER → 2025-01-18 11:55 | Outpatient (BNV) | payer MEDICARE, SELFPAY | PROVIDERS: Admitting Provider Nurse Practitioner Acute Care; Emergency Provider Emergency Medicine; PCP Family Medicine; Visit Provider Internal Medicine | DX: R00.1 Bradycardia, unspecified (principal) | CPT/HCPCS: 93010 ==

== ENCOUNTER → 2025-01-18 12:13 | Outpatient (BNV) | payer MEDICARE, SELFPAY | PROVIDERS: Emergency Provider Emergency Medicine; PCP Family Medicine; Visit Provider Radiology Diagnostic Radiology | DX: J81.0 Acute pulmonary edema (principal); R41.82 Altered mental status, unspecified | CPT/HCPCS: 70450 ==

== ENCOUNTER 2025-01-18 17:32 | Outpatient (BNV) | payer MEDICARE, SELFPAY | END 2025-01-20 07:42 | PROVIDERS: Admitting Provider Nurse Practitioner Acute Care; Emergency Provider Emergency Medicine; PCP Family Medicine; Visit Provider Radiology Diagnostic Radiology | DX: I74.8 Embolism and thrombosis of other arteries (principal) | CPT/HCPCS: 70546 ==

== ENCOUNTER 2025-01-18 17:32 | Outpatient (BNV) | payer MEDICARE, SELFPAY | END 2025-01-19 15:27 | PROVIDERS: Admitting Provider Nurse Practitioner Acute Care; Emergency Provider Emergency Medicine; PCP Family Medicine; Visit Provider Radiology Diagnostic Radiology | DX: I82.C12 Acute embolism and thrombosis of left internal jugular vein (principal) | CPT/HCPCS: 70551 ==

== ENCOUNTER → 2025-01-18 17:32 | Outpatient (BNV) | payer MEDICARE, SELFPAY | PROVIDERS: Admitting Provider Nurse Practitioner Acute Care; Emergency Provider Emergency Medicine; PCP Family Medicine; Visit Provider Internal Medicine Nephrology | DX: N18.6 End stage renal disease (principal); Z99.2 Dependence on renal dialysis | CPT/HCPCS: 90935 ==

== ENCOUNTER → 2025-01-18 17:32 | Outpatient (BNV) | payer MEDICARE, SELFPAY | PROVIDERS: Admitting Provider Nurse Practitioner Acute Care; Emergency Provider Emergency Medicine; PCP Family Medicine; Visit Provider Psychiatry & Neurology Neurology | DX: R26.89 Other abnormalities of gait and mobility (principal) | CPT/HCPCS: 99222 ==

== ENCOUNTER → 2025-01-18 17:32 | Outpatient (BNV) | payer MEDICARE, SELFPAY | PROVIDERS: Admitting Provider Nurse Practitioner Acute Care; Emergency Provider Emergency Medicine; PCP Family Medicine; Visit Provider Nurse Practitioner Acute Care | DX: N18.6 End stage renal disease (principal); Z99.2 Dependence on renal dialysis; R26.9 Unspecified abnormalities of gait and mobility | CPT/HCPCS: 99223; 99232; 99239; G0180 ==

== ENCOUNTER → 2025-01-18 17:32 | Outpatient (BNV) | payer MEDICARE, SELFPAY | PROVIDERS: Admitting Provider Nurse Practitioner Acute Care; Emergency Provider Emergency Medicine; PCP Family Medicine; Visit Provider Physician Assistant Surgical | DX: I82.C12 Acute embolism and thrombosis of left internal jugular vein (principal) | CPT/HCPCS: 99222 ==

== ENCOUNTER 2025-01-22 12:13 | Inpatient (IN) | payer MEDICARE, SELFPAY ==
[2025-01-22] VITALS (8 sets, daily range): BP systolic 110–143; BP diastolic 50–68; PULSE 60–76; RESP 11–18; TEMP 36.2–36.7; O2SAT 92–100; BMI 27.6
--- NOTE | ~2025-01-22 | XR_ITS ---
CLINICAL HISTORY: weakness 2 view chest x-ray Comparison: CR/SR - XR CHEST 1V - 01/18/25 13:30 EDT CR - XR CHEST 1V - 01/07/25 09:35 EDT Findings: No consolidation or effusion. Normal size heart. No acute fracture. IMPRESSION: 1. No acute findings. This document has been electronically signed by: Kevon Oliver MD on 01/22/2025 14:00:49
--- NOTE | 2025-01-22 12:31 | ECG_ITS ---
Test Reason : weakness Blood Pressure : */* mmHG Vent. Rate : 70 BPM Atrial Rate : 70 BPM P-R Int : 148 ms QRS Dur : 86 ms QT Int : 434 ms P-R-T Axes : 61 6 60 degrees QTcB Int : 468 ms Normal sinus rhythm Normal ECG When compared with ECG of 18-Jan-2025 11:55, No significant change was found Referred By: Radha Sheikh Electronically Signed By: Satinder Lyn
--- OUTSIDE RECORDS SUMMARY | 2025-01-22 12:36 | XMS_ITS | Encounter Summary ---
Author Organization [facility], Address [address] [place] [address] Phone Care Team Providers Care Employee Relation Manager Name Role Phone Matias Tan MD Primary Care Provider [phone] Reason for Visit * Reason Onset Date Comments Med Refill 07/19/2022 Encounter Details Date Type Department Care Team (Late st Contact Info) Description 07/19/2022 Refill [facility] - V[facility] Center [address] [place] [phone] Guanako Mercer MD [address] [place] [phone] Social History Tobacco Use Types Packs/Day Years [...] Team (Late st Contact Info) Description 03/07/2025 11:00 AM EDT Procedure visit [facility] - [facility] [address] [place] [phone] documented as of this encounter Visit Diagnoses Not on filedocumented in this encounter Care Teams Employee Relation Manager Relationship Specialty Start Date End Date Matias Tan MD [facility] [place] [address] PCP - General Family Medicine 10/24/19 documented as of this encounter
--- OUTSIDE RECORDS SUMMARY | 2025-01-22 12:36 | XMS_ITS | Encounter Summary ---
Author Organization [facility] Address [address] [place] [address] Care Team Providers Care Medical Appliance Maker Name Role Phone Yulia Smart MD Primary Care Provider Encounter Details Date Type Department Care Team (Late st Contact Info) Description 01/14/2025 Lab Requisition [facility] - Main Lab [address] [place] [address] Yulia Smart MD [address] [place] [id number] Encounter for other general examination Social History [...] LAB CHEMISTRY METHOD 01/14/2025 12:17 PM EDT [facility] Blood Venous blood specimen / Unknown Venipuncture / Unknown 01/14/2025 5:58 AM EDT 01/14/2025 9:53 AM EDT us Yulia Smart MD LAB BLOOD ORDERABLES Final Resu lt [facility] [place] [facility] [address] [place] [address], documented in this encounter Visit Diagnoses Diagnosis Encounter for other general examination documented in this encounter Care Teams Medical Appliance Maker Relationship Specialty Start Date End Date Yulia Smart MD [address] [place] [phone] PCP - General Hospitalist Medicine 01/13/25 documented as of this encounter
--- OUTSIDE RECORDS SUMMARY | 2025-01-22 12:36 | XMS_ITS | Encounter Summary ---
Author Organization [facility], Address [address] [place] [address] Phone Care Team Providers Care Putty And Patch Worker Name Role Phone Matias Tan MD Primary Care Provider +1- [phone] Reason for Visit * Reason Comments Med Refill Encounter Details Date Type Department Care Team (Late st Contact Info) Description 05/08/2024 Refill [facility] [address] [place] [address] Gabriela Hernandez PA Social History Tobacco [...] visit [facility] [place], - V[facility] Access Center [address] [place] [address] documented as of this encounter Visit Diagnoses Not on filedocumented in this encounter Care Teams Putty And Patch Worker Relationship Specialty Start Date End Date Matias Tan MD [facility] [address] [place] [address] PCP - General Family Medicine 10/24/19 documented as of this encounter
--- OUTSIDE RECORDS SUMMARY | 2025-01-22 12:36 | XMS_ITS | Encounter Summary ---
Author Organization [facility] Address [address] [place] [address] Care Team Providers Care Ticker Wirer Name Role Phone Yulia Smart MD Primary Care Provider Encounter Details Date Type Department Care Team (Late st Contact Info) Description 01/13/2025 Lab Requisition [facility] - Main Lab [address] [facility] [place] [address] Yulia Smart MD [address] [place] [address] Encounter for other general examination Social History [...] K/mcL LAB HEMETOLOGY METHOD 01/13/2025 11:17 AM [facility] RBC 3.40(L) 4.50 - 5.50 M/mcL LAB HEMETOLOGY METHOD 01/13/2025 11:17 AM [facility] Hemoglobin 10.6(L) 13.5 - 17.5 g/dL LAB HEMETOLOGY METHOD 01/13/2025 11:17 AM [facility] Hematocrit 30.8(L) 42.0 - 54.0 % LAB HEMETOLOGY METHOD 01/13/2025 11:17 AM [facility] MCV 89.8 79.0 - 98.0 FL LAB HEMETOLOGY METHOD 01/13/2025 11:17 AM [facility] MCH 30.9 27.0 - 32.0 pcg LAB HEMETOLOGY METHOD 01/13/2025 11:17 AM [facility] MCHC 34.4 32.0 - 37.0 g/dL LAB HEMETOLOGY METHOD 01/13/2025 11:17 AM [facility] RDW 14.5 11.0 - 15.0 % LAB HEMETOLOGY METHOD 01/13/2025 11:17 AM [facility] Platelets 105(L) 130 - 400 K/mcL LAB HEMETOLOGY METHOD 01/13/2025 11:17 AM [facility] MPV 11.5(H) 7.0 - 11.0 FL LAB HEMETOLOGY METHOD 01/13/2025 11:17 AM [facility] NRBC 0.0 <1.0 % LAB HEMETOLOGY METHOD 01/13/2025 11:17 AM [facility] NRBC Absolute 0.00 <0.10 K/mcL LAB HEMETOLOGY METHOD 01/13/2025 11:17 AM [facility] Neutrophils Relative 49.1 % LAB HEMETOLOGY METHOD 01/13/2025 11:17 AM [facility] Lymphocytes Relative 31.3 % LAB HEMETOLOGY METHOD 01/13/2025 11:17 AM [facility] Monocytes Relative 13.0 % LAB HEMETOLOGY METHOD 01/13/2025 11:17 AM [facility] Eosinophils Relative 6.0 % LAB HEMETOLOGY METHOD 01/13/2025 11:17 AM [facility] Basophils Relative 0.4 % LAB HEMETOLOGY METHOD 01/13/2025 11:17 AM [facility] Immature Granulocytes Relative 0.2 % LAB HEMETOLOGY METHOD 01/13/2025 11:17 AM [facility] Neutrophils Absolute 2.38 1.50 - 7.00 K/mcL LAB HEMETOLOGY METHOD 01/13/2025 11:17 AM [facility] Lymphocytes Absolute 1.52 1.00 - 5.00 K/mcL LAB HEMETOLOGY METHOD 01/13/2025 11:17 AM [facility] Monocytes Absolute 0.63 0.20 - 1.00 K/mcL LAB HEMETOLOGY METHOD 01/13/2025 11:17 AM [facility] Eosinophils Absolute 0.29 0.00 - 0.50 K/mcL LAB HEMETOLOGY METHOD 01/13/2025 11:17 AM [facility] Basophils Absolute 0.02 0.00 - 0.20 K/mcL LAB HEMETOLOGY METHOD 01/13/2025 11:17 AM [facility] Immature Granulocytes Absolute 0.01 0.00 - 0.03 K/mcL LAB HEMETOLOGY METHOD 01/13/2025 11:17 AM [facility] Blood Venous blood specimen / Unknown Venipuncture / Unknown 01/13/2025 5:26 AM EDT 01/13/2025 10:00 AM EDT us Yulia Smart MD LAB BLOOD ORDERABLES Final Resu lt Performing Organization Address City/[facility]/ZIP Co de Phone Number [facility] [address] [place] [address], [place] [phone] * (ABNORMAL) Magnesium (01/13/2025 5:26 AM EDT) Magnesium 1.8(L) 1.9 - 2.6 mg/dL LAB CHEMISTRY METHOD 01/13/2025 12:11 PM EDT [facility] Blood Venous blood specimen / Unknown Venipuncture / Unknown 01/13/2025 5:26 AM EDT 01/13/2025 10:00 AM EDT us Yulia Smart MD LAB BLOOD ORDERABLES Final Resu lt Performing Organization Address [facility]/ZIP Nh de Phone Number [facility] [address] [place] [address], [place] [phone] * Hemoglobin A1c (01/13/2025 5:26 AM EDT) Hemoglobin A1C 5.6 <6.5 % LAB CHEMISTRY METHOD 01/13/2025 12:43 PM EDT [facility] Mean Bld Glu Estim. 114 mg/dL LAB CHEMISTRY METHOD 01/13/2025 12:43 PM EDT [facility] Blood Venous blood specimen / Unknown Venipuncture / Unknown 01/13/2025 5:26 AM EDT 01/13/2025 10:00 AM EDT us Yulia Smart MD LAB BLOOD ORDERABLES Final Resu lt Performing Organization Address City/[facility]/ZIP Co de Phone Number [facility] [address] [place] [address], [place] [phone] * (ABNORMAL) Comprehensive metabolic panel (01/13/2025 5:26 AM EDT) Sodium 129(L) 133 - 145 mmol/L LAB CHEMISTRY METHOD 01/13/2025 12:12 PM [facility] Potassium 3.6 3.5 - 5.5 mmol/L LAB CHEMISTRY METHOD 01/13/2025 12:12 PM [facility] Chloride 85(L) 96 - 110 mmol/L LAB CHEMISTRY METHOD 01/13/2025 12:12 PM [facility] CO2 28 21 - 32 mmol/L LAB CHEMISTRY METHOD 01/13/2025 12:12 PM [facility] Anion Gap 16(H) 3 - 11 LAB CHEMISTRY METHOD 01/13/2025 12:12 PM [facility] Glucose 90 70 - 100 mg/dL LAB CHEMISTRY METHOD 01/13/2025 12:12 PM [facility] BUN 77(H) 5 - 25 mg/dL LAB CHEMISTRY METHOD 01/13/2025 12:12 PM [facility] Creatinine 10.50(H) 0.70 - 1.30 mg/dL LAB CHEMISTRY METHOD 01/13/2025 12:12 PM [facility] eGFR 5(L) >=60 mL/min/1 .73m2 LAB CHEMISTRY METHOD 01/13/2025 12:12 PM [facility] Comment:Calculation based on the??Chronic Kidney Disease Epidemiology Collaboration (CKD-EPI) equation refit??without adjustment for race. BUN/Creatinine Ratio 7.3 LAB CHEMISTRY METHOD 01/13/2025 12:12 PM [facility] Calcium 7.2(L) 8.5 - 10.5 mg/dL LAB CHEMISTRY METHOD 01/13/2025 12:12 PM [facility] AST (SGOT) 76(H) 10 - 42 unit/L LAB CHEMISTRY METHOD 01/13/2025 12:12 PM EDT [facility] ALT (SGPT) 36 10 - 60 unit/L LAB CHEMISTRY METHOD 01/13/2025 12:12 PM EDT [facility] Alkaline Phosphatase 65 42 - 121 unit/L LAB CHEMISTRY METHOD 01/13/2025 12:12 PM EDT [facility] Total Protein 5.9(L) 6.0 - 8.0 g/dL LAB CHEMISTRY METHOD 01/13/2025 12:12 PM EDT [facility] Albumin 2.9(L) 3.2 - 5.0 g/dL LAB CHEMISTRY METHOD 01/13/2025 12:12 PM [facility] Total Bilirubin 0.4 0.0 - 1.4 mg/dL LAB CHEMISTRY METHOD 01/13/2025 12:12 PM EDT [facility] Blood Venous blood specimen / Unknown Venipuncture / Unknown 01/13/2025 5:26 AM EDT 01/13/2025 10:00 AM EDT us Yulia Smart MD LAB BLOOD ORDERABLES Final Resu lt [facility] [address] [place] [address], [place] [phone] documented in this encounter Visit Diagnoses Diagnosis Encounter for other general examination documented in this encounter Care Teams Ticker Wirer Relationship Specialty Start Date End Date Yulia Smart MD [address] [place] [address] PCP - General Hospitalist Medicine 01/13/25 documented as of this encounter
--- OUTSIDE RECORDS SUMMARY | 2025-01-22 12:36 | XMS_ITS | Encounter Summary ---
Author Organization [facility] [place], Address [address] [place] [address] Phone Care Team Providers Care White Sidewall Tire Buffer Name Role Phone Matias Tan MD Primary Care Provider +1- [phone] Reason for Visit * Reason Comments Med Refill Encounter Details Date Type Department Care Team (Late st Contact Info) Description 07/17/2022 Refill [facility] - Vascular Access Center [address] [place] [address] Guanako Mercer MD [address] [place] [place] [phone] Social History Tobacco Use Types Packs/Day Years [...] visit [facility] [place] - V[facility] Access Center [address] [place] [address] documented as of this encounter Visit Diagnoses Not on filedocumented in this encounter Care Teams White Sidewall Tire Buffer Relationship Specialty Start Date End Date Matias Tan MD [address] [place] [address] PCP - General Family Medicine 10/24/19 documented as of this encounter
--- OUTSIDE RECORDS SUMMARY | 2025-01-22 12:36 | XMS_ITS | Encounter Summary ---
Author Organization [facility] [place], Address [address] [place] [address] Phone Care Team Providers Care Rn Mds Coordinator Name Role Phone Matias Tan MD Primary Care Provider +1- [phone] Reason for Visit * Reason Comments Med Refill Encounter Details Date Type Department Care Team (Late st Contact Info) Description 01/26/2023 Refill [facility] [address] [place] [address] Denys Mueller MD [address] [facility] [place] [address] Social History Tobacco Use Types [...] visit [facility] [place] - Vascular Access Center [address] [place] [phone] documented as of this encounter Visit Diagnoses Not on filedocumented in this encounter Care Teams Rn Mds Coordinator Relationship Specialty Start Date End Date Matias Tan MD [address] [place] [address] PCP - General Family Medicine 10/24/19 documented as of this encounter
--- OUTSIDE RECORDS SUMMARY | 2025-01-22 12:36 | XMS_ITS | Encounter Summary ---
Author Organization [facility], Address [address] [place] [address] Phone Care Team Providers Care Bilingual Teacher Name Role Phone Matias Tan MD Primary Care Provider +1- [phone] Reason for Visit * Reason Comments Med Refill Encounter Details Date Type Department Care Team (Late st Contact Info) Description 09/24/2023 Refill [facility] [address] [place] [address] Gabriela Hernandez PA Social History Tobacco [...] visit [facility] [place], - Vascular Access Center [address] [place] [address] documented as of this encounter Visit Diagnoses Not on filedocumented in this encounter Care Teams Bilingual Teacher Relationship Specialty Start Date End Date Matias Tan MD [facility] [address] [place] [address] PCP - General Family Medicine 10/24/19 documented as of this encounter
--- OUTSIDE RECORDS SUMMARY | 2025-01-22 12:36 | XMS_ITS | Encounter Summary ---
Author Organization [facility] [place], Address [address] [place] [address] Phone Care Team Providers Care Cycle Director Name Role Phone Matias Tan MD Primary Care Provider +1- [phone] Encounter Details Date Type Department Care Team (Late st Contact Info) Description 02/02/2024 Documentation Only [facility] [place], [address] [place] [phone] Alexandria Yusuf [address] [place] [address] Social History Tobacco Use Types [...] visit [facility] [place] - V[facility] Access Center [address] [place] [address] documented as of this encounter Visit Diagnoses Not on filedocumented in this encounter Care Teams Cycle Director Relationship Specialty Start Date End Date Matias Tan MD [address] [place] [address] PCP - General Family Medicine 10/24/19 documented as of this encounter
--- OUTSIDE RECORDS SUMMARY | 2025-01-22 12:36 | XMS_ITS | Encounter Summary ---
Author Organization [facility] [place], Address [address] [place] [address] Phone Care Team Providers Care Evp Head Of [employer] Experience Strategy Name Role Phone Matias Tan MD Primary Care Provider +1- [phone] Reason for Visit * Reason Onset Date Comments Med Refill 06/20/2022 Encounter Details Date Type Department Care Team (Late st Contact Info) Description 06/20/2022 Refill [facility], [address] [place] [address] Guanako Mercer MD [address] [place] [phone] Social History Tobacco Use Types Packs/Day Years [...] visit [facility] [place] - [facility] Access Center [address] [place] [address] documented as of this encounter Visit Diagnoses Not on filedocumented in this encounter Care Teams Evp Head Of [employer] Experience Strategy Relationship Specialty Start Date End Date Matias Tan MD [address] [facility] [place] [address] PCP - General Family Medicine 10/24/19 documented as of this encounter
--- OUTSIDE RECORDS SUMMARY | 2025-01-22 12:36 | XMS_ITS | Encounter Summary ---
Author Organization [facility] [place], Address [address] [place] [address] Phone Care Team Providers Care Watch Dial Stoner Name Role Phone Matias Tan MD Primary Care Provider +1- [phone] Encounter Details Date Type Department Care Team (Late st Contact Info) Description 03/11/2023 Documentation Only [facility] [address] [place] [address] Jose Luis Amezcua MD Social History Tobacco [...] visit [facility] Vascular Access Center [address] [place] [address] documented as of this encounter Visit Diagnoses Not on filedocumented in this encounter Care Teams Watch Dial Stoner Relationship Specialty Start Date End Date Matias Tan MD [address] [place] [address] PCP - General Family Medicine 10/24/19 documented as of this encounter
--- OUTSIDE RECORDS SUMMARY | 2025-01-22 12:36 | XMS_ITS | Encounter Summary ---
Author Organization [facility] [place], Address [address] [place] [address] Phone Care Team Providers Care Hvac/R Service Technician Name Role Phone Matias Tan MD Primary Care Provider +1- [phone] Reason for Visit * Reason Comments Med Refill Encounter Details Date Type Department Care Team (Late st Contact Info) Description 12/28/2024 Refill [facility] [address] [place] [address] Sawyer Davis MD [address] [facility] [place] [address] Social History Tobacco Use Types [...] visit [facility] [place] - Vascular Access Center [address] [place] [address] documented as of this encounter Procedures Procedure Name Priority Date/Time Associated Diagnosis Comments HEMATOLOGY Routine 12/28/2024 documented in this encounter Results * (ABNORMAL) HEMATOLOGY (12/28/2024) Hemoglobin 11.5(L) 14.0 - 18.0 g/dL [facility] Hemoglobin x 3 34.5(L) 42.0 - 54.0 % [facility] 12/28/2024 12/29/2024 9:1 7 AM EDT Narrative [facility] - 12/29/2024 Unless otherwise specified, test(s) performed at: [facility], [address] [place] [address] HAT FINISHING MATERIALS PREPARER: Blane Ramsay M.D. For any questions, please call customer service at FREQUENCY:OTHER Resulting Agency Comment Specimen source: Blood us Denys Mueller MD LAB BLOOD ORDERABLES Final Re sult [facility] See order comments or contact performing lab [facility], [place] documented in this encounter Visit Diagnoses Not on filedocumented in this encounter Care Teams Hvac/R Service Technician Relationship Specialty Start Date End Date Matias Tan MD [facility] [address] [facility] [place] [phone] PCP - General Family Medicine 10/24/19 documented as of this encounter
--- OUTSIDE RECORDS SUMMARY | 2025-01-22 12:36 | XMS_ITS | Encounter Summary ---
Author Organization [facility] [place], Address [address] [place] [address] Phone Care Team Providers Care Golf Range Attendant Name Role Phone Matias Tan MD Primary Care Provider +1- [phone] Reason for Visit * Reason Comments Med Refill Encounter Details Date Type Department Care Team (Late st Contact Info) Description 09/25/2023 Refill [facility] [address] [place] [phone] Denys Mueller MD [address] [facility] [address] [place] [address] Social History Tobacco Use Types [...] visit [facility] [place] - V[facility] Access Center [address] [place] [address] documented as of this encounter Visit Diagnoses Not on filedocumented in this encounter Care Teams Golf Range Attendant Relationship Specialty Start Date End Date Matias Tan MD [address] [place] [address] PCP - General Family Medicine 10/24/19 documented as of this encounter
--- OUTSIDE RECORDS SUMMARY | 2025-01-22 12:36 | XMS_ITS | Encounter Summary ---
Author Organization [facility], Address [address] [place] [address] Phone Care Team Providers Care Feather Drying Machine Operator Name Role Phone Matias Tan MD Primary Care Provider +1- [phone] Reason for Visit * Reason Comments Med Refill Encounter Details Date Type Department Care Team (Late st Contact Info) Description 01/26/2023 Refill [facility] [address] [place] [address] Gabriela Hernandez PA Social History Tobacco [...] visit [facility] [place], - Vascular Access Center [address] [place] [address] documented as of this encounter Visit Diagnoses Not on filedocumented in this encounter Care Teams Feather Drying Machine Operator Relationship Specialty Start Date End Date Matias Tan MD [facility] [address] [place] [address] PCP - General Family Medicine 10/24/19 documented as of this encounter
--- OUTSIDE RECORDS SUMMARY | 2025-01-22 12:36 | XMS_ITS | Clinical Summary ---
Author Organization [facility] Address [address] [place] [address] Phone Care Team Providers Care Door Machine Operator Name Role Phone Yulia Smart MD Primary Care Provider [phone] Encounters Date Type Department Care Team Description 01/18/2025 Lab Requisition [facility] Lab [address] [place] [phone] Yulia Smart MD Encounter for other general examination 01/14/2025 Lab Requisition [facility] Lab [address] [place] [phone] Yulia Smart MD Encounter for other general examination 01/13/2025 Lab Requisition [facility] Lab [address] [place] [phone] Yulia Smart MD Encounter for other general [...] LAB HEMETOLOGY METHOD 01/18/2025 7:10 AM EDT [facility] LAB RBC 3.10(L) 4.50 - 5.50 M/[facility] LAB HEMETOLOGY METHOD 01/18/2025 7:10 AM EDT [facility] LAB Hemoglobin 9.5(L) 13.5 - 17.5 g/dL LAB HEMETOLOGY METHOD 01/18/2025 7:10 AM EDT [facility] LAB Hematocrit 27.0(L) 42.0 - 54.0 % LAB HEMETOLOGY METHOD 01/18/2025 7:10 AM [facility] LAB MCV 87.1 79.0 - 98.0 FL LAB HEMETOLOGY METHOD 01/18/2025 7:10 AM [facility] LAB MCH 30.6 27.0 - 32.0 pcg LAB HEMETOLOGY METHOD 01/18/2025 7:10 AM [facility] LAB MCHC 35.2 32.0 - 37.0 g/dL LAB HEMETOLOGY METHOD 01/18/2025 7:10 AM [facility] LAB RDW 14.3 11.0 - 15.0 % LAB HEMETOLOGY METHOD 01/18/2025 7:10 AM [facility] LAB Platelets 251 130 - 400 K/mcL LAB HEMETOLOGY METHOD 01/18/2025 7:10 AM [facility] LAB MPV 11.1(H) 7.0 - 11.0 FL LAB HEMETOLOGY METHOD 01/18/2025 7:10 AM [facility] LAB NRBC 0.0 <1.0 % LAB HEMETOLOGY METHOD 01/18/2025 7:10 AM [facility] LAB NRBC Absolute 0.00 <0.10 K/mcL LAB HEMETOLOGY METHOD 01/18/2025 7:10 AM [facility] LAB Neutrophils Relative 77.1 % LAB HEMETOLOGY METHOD 01/18/2025 7:10 AM [facility] LAB Lymphocytes Relative 8.3 % LAB HEMETOLOGY METHOD 01/18/2025 7:10 AM [facility] LAB Monocytes Relative 13.5 % LAB HEMETOLOGY METHOD 01/18/2025 7:10 AM [facility] LAB Eosinophils Relative 0.0 % LAB HEMETOLOGY METHOD 01/18/2025 7:10 AM EDT [facility] LAB Basophils Relative 0.0 % LAB HEMETOLOGY METHOD 01/18/2025 7:10 AM EDT [facility] LAB Immature Granulocytes Relative 1.1 % LAB HEMETOLOGY METHOD 01/18/2025 7:10 AM EDT [facility] LAB Neutrophils Absolute 7.61(H) 1.50 - 7.00 K/mcL LAB HEMETOLOGY METHOD 01/18/2025 7:10 AM EDT [facility] LAB Lymphocytes Absolute 0.82(L) 1.00 - 5.00 K/mcL LAB HEMETOLOGY METHOD 01/18/2025 7:10 AM EDT [facility] LAB Monocytes Absolute 1.33(H) 0.20 - 1.00 K/mcL LAB HEMETOLOGY METHOD 01/18/2025 7:10 AM EDT [facility] LAB Eosinophils Absolute 0.00 0.00 - 0.50 K/mcL LAB HEMETOLOGY METHOD 01/18/2025 7:10 AM EDT [facility] LAB Basophils Absolute 0.00 0.00 - 0.20 K/mcL LAB HEMETOLOGY METHOD 01/18/2025 7:10 AM EDT [facility] LAB Immature Granulocytes Absolute 0.11(H) 0.00 - 0.03 K/mcL LAB HEMETOLOGY METHOD 01/18/2025 7:10 AM EDT [facility] LAB Blood Venous blood specimen / Unknown Venipuncture / Unknown 01/18/2025 5:06 AM EDT 01/18/2025 6:20 AM EDT us Yulia Smart MD LAB BLOOD ORDERABLES Final Resu lt [facility] LAB [address] [place] [address], * Thyroid stimulating hormone (01/18/2025 5:06 AM EDT) TSH 1.94 0.40 - 4.00 mcIU/mL LAB CHEMISTRY METHOD 01/18/2025 9:08 AM EDT [facility] LAB Blood Venous blood specimen / Unknown Venipuncture / Unknown 01/18/2025 5:06 AM EDT 01/18/2025 6:20 AM EDT us Yulia Smart MD LAB BLOOD ORDERABLES Final Resu lt Performing Organization Address [facility] de Phone Number [facility] LAB [address] [place] [address], [place] [phone] * (ABNORMAL) Vitamin B12 (01/18/2025 5:06 AM EDT) [facility] Vitamin B-12 1,241(H) 250 - 900 pcg/mL LAB CHEMISTRY METHOD 01/18/2025 7:36 AM EDT [facility] LAB Blood Venous blood specimen / Unknown Venipuncture / Unknown 01/18/2025 5:06 AM EDT 01/18/2025 6:20 AM EDT us Yulia Smart MD LAB BLOOD ORDERABLES Final Resu lt Performing Organization Address [facility] de Phone Number [facility] LAB [address] [place] [address], [place] [phone] * Ammonia (01/18/2025 5:06 AM EDT) [facility] Ammonia 28 11 - 35 mcmol/L LAB CHEMISTRY METHOD 01/18/2025 6:53 AM EDT [facility] LAB Blood Venous blood specimen / Unknown Venipuncture / Unknown 01/18/2025 5:06 AM EDT 01/18/2025 6:20 AM EDT us Yulia Smart MD LAB BLOOD ORDERABLES Final Resu lt [facility] LAB [address] [place] [address], * (ABNORMAL) Comprehensive metabolic panel (01/18/2025 5:06 AM EDT) Only the most recent of2 resultswithin the time period is included. Sodium 123(L) 133 - 145 mmol/L LAB CHEMISTRY METHOD 01/18/2025 7:56 AM [facility] LAB Potassium 5.2 3.5 - 5.5 mmol/L LAB CHE[facility]STRY METHOD [facility] Chloride 89(L) 96 - 110 mmol/L LAB CHEMISTRY METHOD 01/18/2025 7:56 AM [facility] LAB CO2 21 21 - 32 mmol/L LAB CHEMISTRY METHOD 01/18/2025 7:56 AM [facility] LAB Anion Gap 13(H) 3 - 11 LAB CHEMISTRY METHOD 01/18/2025 7:56 AM [facility] LAB Glucose 174(H) 70 - 100 mg/dL LAB CHEMISTRY METHOD 01/18/2025 7:56 AM [facility] LAB BUN 96(H) 5 - 25 mg/dL LAB CHEMISTRY METHOD 01/18/2025 7:56 AM [facility] LAB Creatinine 9.44(H) 0.70 - 1.30 mg/dL LAB CHEMISTRY METHOD 01/18/2025 7:56 AM [facility] LAB eGFR 5(L) >=60 mL/min/1. 73m2 LAB CHEMISTRY METHOD 01/18/2025 7:56 AM [facility] LAB Comment:Calculation based on the??Chronic Kidney Disease Epidemiology Collaboration (CKD-EPI) equation refit??without adjustment for race. BUN/Creatinine Ratio 10.2 LAB CHEMISTRY METHOD 01/18/2025 7:56 AM [facility] LAB Calcium 7.8(L) 8.5 - 10.5 mg/dL LAB CHEMISTRY METHOD 01/18/2025 7:56 AM EDT [facility] LAB AST (SGOT) 13 10 - 42 unit/L LAB CHEMISTRY METHOD 01/18/2025 7:56 AM [facility] LAB Comment:Results verified by repeat testing ALT (SGPT) 21 10 - 60 unit/L LAB CHEMISTRY METHOD 01/18/2025 7:56 AM EDT [facility] LAB Alkaline Phosphatase 52 42 - 121 unit/L LAB CHEMISTRY METHOD [facility]/18[facility]25 [facility] Total Protein 5.3(L) 6.0 - 8.0 g/dL LAB CHEMISTRY METHOD 01/18/2025 7:56 AM [facility] LAB Albumin 2.6(L) 3.2 - 5.0 g/dL LAB CHEMISTRY METHOD 01/18/2025 7:56 AM [facility] LAB Total Bilirubin 1.0 0.0 - 1.4 mg/dL LAB CHEMISTRY METHOD 01/18/2025 7:56 AM [facility] LAB Comment:Results verified by repeat testing Blood Venous blood specimen / Unknown Venipuncture / Unknown 01/18/2025 5:06 AM EDT 01/18/2025 6:20 AM EDT us Yulia Smart MD LAB BLOOD ORDERABLES Final Resu lt [facility] LAB [address] [place] [address], * (ABNORMAL) Phosphorus (01/14/2025 5:58 AM EDT) [facility] Signature Phosphorus 5.6(H) 2.5 - 4.5 mg/dL LAB CHEMISTRY METHOD 01/14/2025 12:17 PM EDT [facility] LAB Blood Venous blood specimen / Unknown Venipuncture / Unknown 01/14/2025 5:58 AM EDT 01/14/2025 9:53 AM EDT us Yulia Smart MD LAB BLOOD ORDERABLES Final Resu lt Performing Organization Address City/[facility]/ZIP Co de Phone Number [facility] LAB [address] [place] [address], [place] [phone] * (ABNORMAL) Magnesium (01/13/2025 5:26 AM EDT) [facility] Magnesium 1.8(L) 1.9 - 2.6 mg/dL LAB CHEMISTRY METHOD 01/13/2025 12:11 PM EDT [facility] LAB Blood Venous blood specimen / Unknown Venipuncture / Unknown 01/13/2025 5:26 AM EDT 01/13/2025 10:00 AM EDT us Yulia Smart MD LAB BLOOD ORDERABLES Final Resu lt Performing Organization Address [facility] [[email or web address]] Co de Phone Number [facility] LAB [address] [place] [address], [place] [phone] * Hemoglobin A1c (01/13/2025 5:26 AM EDT) [facility] Hemoglobin A1C 5.6 <6.5 % LAB CHEMISTRY METHOD 01/13/2025 12:43 PM EDT [facility] LAB Mean Bld Glu Estim. 114 mg/dL LAB CHEMISTRY METHOD 01/13/2025 12:43 PM EDT [facility] LAB Blood Venous blood specimen / Unknown Venipuncture / Unknown 01/13/2025 5:26 AM EDT 01/13/2025 10:00 AM EDT us Yulia Smart MD LAB BLOOD ORDERABLES Final Resu lt Performing Organization Address City/[facility]/ZIP Co de Phone Number [facility] LAB [address] [place] [address], [place] [phone] from Last 3 Months Insurance [facility] [place] [address] MEDICARE Care Teams Door Machine Operator Relationship Specialty Start Date End Date Yulia Smart MD [address] [place] [id number] PCP - General Hospitalist Medicine 01/13/25
--- OUTSIDE RECORDS SUMMARY | 2025-01-22 12:36 | XMS_ITS | Encounter Summary ---
Author Organization [facility], Address [address] [place] [address] Phone Care Team Providers Care Event Sales Manager Name Role Phone Matias Tan MD Primary Care Provider [phone]- [phone] Reason for Visit * Reason Onset Date Comments Med Refill 12/23/2022 Encounter Details Date Type Department Care Team (Late st Contact Info) Description 12/23/2022 Refill [facility] - Vascular Access Center [address] [place] [phone] Ferdinand Monroe MD [address] [phone] Social History Tobacco Use Types Packs/Day Years [...] visit [facility] - [facility] [address] [place] [address] [place] [phone] documented as of this encounter Visit Diagnoses Not on filedocumented in this encounter Care Teams Event Sales Manager Relationship Specialty Start Date End Date Matias Tan MD [address] [facility] [place] [address] PCP - General Family Medicine 10/24/19 documented as of this encounter
--- OUTSIDE RECORDS SUMMARY | 2025-01-22 12:36 | XMS_ITS | Encounter Summary ---
Author Organization [facility], Address [address] [place] [address] Phone Care Team Providers Care Material Handler 2Nd Shift Name Role Phone Matias Tan MD Primary Care Provider +1- [phone] Reason for Visit * Reason Onset Date Comments Med Refill 06/24/2022 Encounter Details Date Type Department Care Team (Late st Contact Info) Description 06/24/2022 Refill [facility], [address] [place] [phone] Guanako Mercer MD [address] [place] [phone] Social History Tobacco Use Types Packs/Day Years [...] visit [facility] - [facility] [address] [place] [phone] documented as of this encounter Visit Diagnoses Not on filedocumented in this encounter Care Teams Material Handler 2Nd Shift Relationship Specialty Start Date End Date Matias Tan MD [address] [place] [address] PCP - General Family Medicine 10/24/19 documented as of this encounter
--- OUTSIDE RECORDS SUMMARY | 2025-01-22 12:36 | XMS_ITS | Encounter Summary ---
Author Organization [facility], Address [address] [place] [address] Phone Care Team Providers Care Data Visualization Developer Name Role Phone Matias Tan MD Primary Care Provider [phone]- [phone] Reason for Visit * Reason Onset Date Comments Med Refill 06/08/2022 Encounter Details Date Type Department Care Team (Late st Contact Info) Description 06/08/2022 Refill [facility], [address] [place] [phone] Guanako Mercer MD [address] [facility] [place] [phone] Social History Tobacco Use Types Packs/Day Years [...] visit [facility] - [facility] [address] [place] [address] documented as of this encounter Visit Diagnoses Not on filedocumented in this encounter Care Teams Data Visualization Developer Relationship Specialty Start Date End Date Matias Tan MD [address] [facility] [place] [address] PCP - General Family Medicine 10/24/19 documented as of this encounter
--- OUTSIDE RECORDS SUMMARY | 2025-01-22 12:36 | XMS_ITS | Encounter Summary ---
Author Organization [facility] Address [address] [place] [address] Phone Care Team Providers Care Die Casting Machine Setter Name Role Phone Matias Tan MD Primary Care Provider [phone]- [phone] Reason for Visit * Reason Comments Med Refill Encounter Details Date Type Department Care Team (Late st Contact Info) Description 06/24/2022 Refill [facility] [place], [address] [place] [phone] Guanako Mercer MD [address] [place] [phone] Social History Tobacco Use Types Packs/Day Years [...] visit [facility] - [facility] [address] [place] [phone] documented as of this encounter Visit Diagnoses Not on filedocumented in this encounter Care Teams Die Casting Machine Setter Relationship Specialty Start Date End Date Matias Tan MD [address] [place] [phone] PCP - General Family Medicine 10/24/19 documented as of this encounter
--- OUTSIDE RECORDS SUMMARY | 2025-01-22 12:36 | XMS_ITS | Encounter Summary ---
Author Organization [facility] Address [address] [place] [address] Care Team Providers Care Meals On Wheels Driver Name Role Phone Yulia Smart MD Primary Care Provider Encounter Details Date Type Department Care Team (Late st Contact Info) Description 01/18/[address] [facility] - Main Lab [address] [facility] [place] [address] Yulia Smart MD [address] [place] [id number] Encounter for other general examination Social History [...] K/mcL LAB HEMETOLOGY METHOD 01/18/2025 7:10 AM [facility] LAB RBC 3.10(L) 4.50 - 5.50 M/mcL LAB HEMETOLOGY METHOD 01/18/2025 7:10 AM [facility] LAB Hemoglobin 9.5(L) 13.5 - 17.5 g/dL LAB HEMETOLOGY METHOD 01/18/2025 7:10 AM [facility] LAB Hematocrit 27.0(L) 42.0 - 54.0 % LAB HEMETOLOGY METHOD 01/18/2025 7:10 AM [facility] LAB MCV 87.1 79.0 - 98.0 FL LAB HEMETOLOGY METHOD 01/18/2025 7:10 AM [facility] LAB MCH 30.6 27.0 - 32.0 pcg LAB HEMETOLOGY METHOD 01/18/2025 7:10 AM [facility] LAB MCHC 35.2 32.0 - 37.0 g/dL LAB HEMETOLOGY METHOD 01/18/2025 7:10 AM [facility] LAB RDW 14.3 11.0 - 15.0 % LAB HEMETOLOGY METHOD 01/18/2025 7:10 AM [facility] LAB Platelets 251 130 - 400 K/mcL LAB HEMETOLOGY METHOD 01/18/2025 7:10 AM [facility] LAB MPV 11.1(H) 7.0 - 11.0 FL LAB HEMETOLOGY METHOD 01/18/2025 7:10 AM [facility] LAB NRBC 0.0 <1.0 % LAB HEMETOLOGY METHOD 01/18/2025 7:10 AM [facility] LAB NRBC Absolute 0.00 <0.10 K/mcL LAB HEMETOLOGY METHOD 01/18/2025 7:10 AM EDT [facility] LAB Neutrophils Relative 77.1 % LAB HEMETOLOGY METHOD 01/18/2025 7:10 AM [facility] LAB Lymphocytes Relative 8.3 % LAB HEMETOLOGY METHOD 01/18/2025 7:10 AM [facility] LAB Monocytes Relative 13.5 % LAB HEMETOLOGY METHOD 01/18/2025 7:10 AM [facility] LAB Eosinophils Relative 0.0 % LAB HEMETOLOGY METHOD 01/18/2025 7:10 AM [facility] LAB Basophils Relative 0.0 % LAB HEMETOLOGY METHOD 01/18/2025 7:10 AM [facility] LAB Immature Granulocytes Relative 1.1 % LAB HEMETOLOGY METHOD 01/18/2025 7:10 AM [facility] LAB Neutrophils Absolute 7.61(H) 1.50 - 7.00 K/mcL LAB HEMETOLOGY METHOD 01/18/2025 7:10 AM [facility] Lymphocytes Absolute 0.82(L) 1.00 - 5.00 K/mcL LAB HEMETOLOGY METHOD 01/18/2025 7:10 AM [facility] Monocytes Absolute 1.33(H) 0.20 - 1.00 K/mcL LAB HEMETOLOGY METHOD 01/18/2025 7:10 AM [facility] LAB Eosinophils Absolute 0.00 0.00 - 0.50 K/mcL LAB HEMETOLOGY METHOD 01/18/2025 7:10 AM [facility] Basophils Absolute 0.00 0.00 - 0.20 K/mcL LAB HEMETOLOGY METHOD 01/18/2025 7:10 AM [facility] LAB Immature Granulocytes Absolute 0.11(H) 0.00 - 0.03 K/mcL LAB HEMETOLOGY METHOD 01/18/2025 7:10 AM EDT [facility] Blood Venous blood specimen / Unknown Venipuncture / Unknown 01/18/2025 5:06 AM EDT 01/18/2025 6:20 AM EDT us Yulia Smart MD LAB BLOOD ORDERABLES Final Resu lt Performing Organization Address City/[facility]/ZIP Co de Phone Number [facility] LAB [address] [place] [address], [place] [phone] * Ammonia (01/18/2025 5:06 AM EDT) Ammonia 28 11 - 35 mcmol/L LAB CHEMISTRY METHOD 01/18/2025 6:53 AM EDT [facility] Blood Venous blood specimen / Unknown Venipuncture / Unknown 01/18/2025 5:06 AM EDT 01/18/2025 6:20 AM EDT us Yulia Smart MD LAB BLOOD ORDERABLES Final Resu lt Performing Organization Address [facility] Co de Phone Number [facility] [address] [place] [address], [place] [phone] * Thyroid stimulating hormone (01/18/2025 5:06 AM EDT) TSH 1.94 0.40 - 4.00 mcIU/mL LAB CHEMISTRY METHOD 01/18/2025 9:08 AM EDT [facility] Blood Venous blood specimen / Unknown Venipuncture / Unknown 01/18/2025 5:06 AM EDT 01/18/2025 6:20 AM EDT us Yulia Smart MD LAB BLOOD ORDERABLES Final Resu lt Performing Organization Address City/[facility]/ZIP Co de Phone Number [facility] [address] [place] [address], [place] [phone] * (ABNORMAL) Vitamin B12 (01/18/2025 5:06 AM EDT) [facility] Vitamin B-12 1,241(H) 250 - 900 pcg/mL LAB CHEMISTRY METHOD 01/18/2025 7:36 AM EDT [facility] Blood Venous blood specimen / Unknown Venipuncture / Unknown 01/18/2025 5:06 AM EDT 01/18/2025 6:20 AM EDT us Yulia Smart MD LAB BLOOD ORDERABLES Final Resu lt [facility] [address] [place] [address], [place] [phone] * (ABNORMAL) Comprehensive metabolic panel (01/18/2025 5:06 AM EDT) [facility] Sodium 123(L) 133 - 145 mmol/L LAB CHEMISTRY METHOD 01/18/2025 7:56 AM [facility] Potassium 5.2 3.5 - 5.5 mmol/L LAB CHEMISTRY METHOD 01/18/2025 7:56 AM [facility] Chloride 89(L) 96 - 110 mmol/L LAB CHEMISTRY METHOD 01/18/2025 7:56 AM [facility] CO2 21 21 - 32 mmol/L LAB CHEMISTRY METHOD 01/18/2025 7:56 AM [facility] Anion Gap 13(H) 3 - 11 LAB CHEMISTRY METHOD 01/18/2025 7:56 AM [facility] Glucose 174(H) 70 - 100 mg/dL LAB CHEMISTRY METHOD 01/18/2025 7:56 AM [facility] BUN 96(H) 5 - 25 mg/dL LAB CHEMISTRY METHOD 01/18/2025 7:56 AM [facility] Creatinine 9.44(H) 0.70 - 1.30 mg/dL LAB CHEMISTRY METHOD 01/18/2025 7:56 AM [facility] eGFR 5(L) >=60 mL/min/1. 73m2 LAB CHEMISTRY METHOD 01/18/2025 7:56 AM [facility] Comment:Calculation based on the??Chronic Kidney Disease Epidemiology Collaboration (CKD-EPI) equation refit??without adjustment for race. BUN/Creatinine Ratio 10.2 LAB CHEMISTRY METHOD 01/18/2025 7:56 AM [facility] Calcium 7.8(L) 8.5 - 10.5 mg/dL LAB CHEMISTRY METHOD 01/18/2025 7:56 AM [facility] AST (SGOT) 13 10 - 42 unit/L LAB CHEMISTRY METHOD 01/18/2025 7:56 AM [facility] Comment:Results verified by repeat testing ALT (SGPT) 21 10 - 60 unit/L LAB CHEMISTRY METHOD 01/18/2025 7:56 AM [facility] Alkaline Phosphatase 52 42 - 121 unit/L LAB CHEMISTRY METHOD 01/18/2025 7:56 AM [facility] Total Protein 5.3(L) 6.0 - 8.0 g/dL LAB CHEMISTRY METHOD 01/18/2025 7:56 AM [facility] Albumin 2.6(L) 3.2 - 5.0 g/dL LAB CHEMISTRY METHOD 01/18/2025 7:56 AM [facility] Total Bilirubin 1.0 0.0 - 1.4 mg/dL LAB CHEMISTRY METHOD 01/18/2025 7:56 AM [facility] Comment:Results verified by repeat testing Blood Venous blood specimen / Unknown Venipuncture / Unknown 01/18/2025 5:06 AM EDT 01/18/2025 6:20 AM EDT us Rami A Ashkar MD LAB BLOOD ORDERABLES Final Resu lt [facility] ([facility] LAB [address] [place] [address], documented in this encounter Visit Diagnoses Diagnosis Encounter for other general examination documented in this encounter Care Teams Meals On Wheels Driver Relationship Specialty Start Date End Date Yulia Smart MD [address] [place] [id number] PCP - General Hospitalist Medicine 01/13/25 documented as of this encounter
--- OUTSIDE RECORDS SUMMARY | 2025-01-22 12:36 | XMS_ITS | Encounter Summary ---
Author Organization [facility] [place], Address [address] [place] [address] Phone Care Team Providers Care Trashman Name Role Phone Matias Tan MD Primary Care Provider +1- [phone] Reason for Visit * Reason Comments Med Refill Encounter Details Date Type Department Care Team (Late st Contact Info) Description 11/28/2022 Refill [facility] [place] [address] [place] [address] Guanako Mercer MD [address] [place] [address] Social History Tobacco Use Types [...] visit [facility] - [facility] [address] [place] [address] documented as of this encounter Visit Diagnoses Not on filedocumented in this encounter Care Teams Trashman Relationship Specialty Start Date End Date Matias Tan MD [address] [facility] [place] [address] PCP - General Family Medicine 10/24/19 documented as of this encounter
--- OUTSIDE RECORDS SUMMARY | 2025-01-22 12:36 | XMS_ITS | Encounter Summary ---
Author Organization [facility], Address [address] [place] [address] Phone Care Team Providers Care Aircraft Captain Name Role Phone Matias Tan MD Primary Care Provider +1- [phone] Reason for Visit * Reason Comments Med Refill Encounter Details Date Type Department Care Team (Late st Contact Info) Description 09/24/2023 Refill [facility] [address] [place] [phone] Denys Mueller MD [address] [place] [address] Social History Tobacco Use Types [...] visit [facility] - [facility] [address] [place] [phone] documented as of this encounter Visit Diagnoses Not on filedocumented in this encounter Care Teams Aircraft Captain Relationship Specialty Start Date End Date Matias Tan MD [address] [place] [address] PCP - General Family Medicine 10/24/19 documented as of this encounter
--- OUTSIDE RECORDS SUMMARY | 2025-01-22 12:36 | XMS_ITS | Encounter Summary ---
Author Organization [facility] [place], Address [address] [place] [address] Phone Care Team Providers Care Damper Maker Name Role Phone Matias Tan MD Primary Care Provider +1- [phone] Encounter Details Date Type Department Care Team (Late st Contact Info) Description 01/10/2022 Documentation Only [facility] [place], [address] [place] [phone] [address] [place] [address] Social History Tobacco Use Types [...] visit [facility] [place] - [facility] [address] [place] [phone] documented as of this encounter Visit Diagnoses Not on filedocumented in this encounter Care Teams Damper Maker Relationship Specialty Start Date End Date Matias Tan MD [address] [place] [address] PCP - General Family Medicine 10/24/19 documented as of this encounter
--- OUTSIDE RECORDS SUMMARY | 2025-01-22 12:36 | XMS_ITS | Encounter Summary ---
Author Organization [facility] [place], Address [address] [place] [address] Phone Care Team Providers Care Case Resource Manager Name Role Phone Matias Tan MD Primary Care Provider +1- [phone] Reason for Visit * Reason Onset Date Comments Med Refill 12/20/2022 Encounter Details Date Type Department Care Team (Late st Contact Info) Description 12/20/2022 Refill [facility] - Vascular Access Center [address] [place] [address] Kb Sung MD Social History Tobacco Use [...] visit [facility] [place] - [facility] [address] [place] [address] documented as of this encounter Visit Diagnoses Not on filedocumented in this encounter Care Teams Case Resource Manager Relationship Specialty Start Date End Date Matias Tan MD [facility] [address] [facility] [place] [address] PCP - General Family Medicine 10/24/19 documented as of this encounter
--- OUTSIDE RECORDS SUMMARY | 2025-01-22 12:36 | XMS_ITS | Encounter Summary ---
Author Organization [facility] [place], Address [address] [place] [address] Phone Care Team Providers Care Carrot Grader Inspector Name Role Phone Matias Tan MD Primary Care Provider +1- [phone] Reason for Visit * Reason Onset Date Comments Med Refill 12/20/2022 Encounter Details Date Type Department Care Team (Late st Contact Info) Description 12/20/2022 Refill [facility] - Vascular Access Center [address] [place] [address] Kb Sung MD Social History Tobacco Use [...] visit [facility] [place] - [facility] [address] [place] [address] documented as of this encounter Visit Diagnoses Not on filedocumented in this encounter Care Teams Carrot Grader Inspector Relationship Specialty Start Date End Date Matias Tan MD [facility] [address] [facility] [place] [address] PCP - General Family Medicine 10/24/19 documented as of this encounter
--- OUTSIDE RECORDS SUMMARY | 2025-01-22 12:37 | XMS_ITS | Encounter Summary ---
Author Organization [facility] [place], Address [address] [place] [address] Phone Care Team Providers Care Railroad Track Inspector Name Role Phone Matias Tan MD Primary Care Provider +1- [phone] Reason for Visit * Reason Onset Date Comments Med Refill 09/24/2022 Encounter Details Date Type Department Care Team (Late st Contact Info) Description 09/24/2022 Refill [facility] - Vascular Access Center [address] [place] [address] Ferdinand Monroe MD [address] [phone] Social History Tobacco Use Types Packs/Day Years [...] visit [facility] [place] - [facility] Center [address] [place] [address] [place] [phone] documented as of this encounter Visit Diagnoses Not on filedocumented in this encounter Care Teams Railroad Track Inspector Relationship Specialty Start Date End Date Matias Tan MD [address] [facility] [place] [address] PCP - General Family Medicine 10/24/19 documented as of this encounter
--- OUTSIDE RECORDS SUMMARY | 2025-01-22 12:37 | XMS_ITS | Clinical Summary ---
Author Organization [facility], Address [address] [place] [address] Phone Care Team Providers Care Medicare Sales Executive Name Role Phone Matias Tan MD Primary Care Provider +1- [phone] Allergies Active Allergy Reactions Criticality Noted Date [...] HOURS NEEDED FOR PAIN 2 Active B Guxejjd-X-Uzctk Acid (Dialyvite 800) 0.8 MG tablet Take [...] Only [facility] [address] [address] Denys Mueller MD 01/02/2025 Orders Only [facility] [address] [address] Denys Mueller MD 01/02/2025 Treatment [facility] [place] [address] [place] [address] Tiffani Olson, PATIENT RELATIONS SPECIALIST-C End stage renal disease; Dependence on renal dialysis 12/28/2024 Treatment [facility] [place], [address] [place] [address] Tiffani Olson, PATIENT RELATIONS SPECIALIST-C End stage renal disease; Dependence on renal dialysis 12/28/2024 Refill [facility] [address] [address] Sawyer Davis MD 12/26/2024 Orders Only [facility] [address] [address] Denys Mueller MD 12/23/2024 Treatment [facility] [place], [address] [place] [address] Tiffani Olson, PATIENT RELATIONS SPECIALIST-C End stage renal disease; Dependence on renal dialysis 12/21/2024 Orders Only [facility] [address] [address] Denys Mueller MD 12/19/2024 Orders Only [facility] [address] [address] Denys Mueller MD 12/16/2024 Treatment [facility] [place] [address] [place] [address] Sawyer Davis MD End stage renal disease; Dependence on renal dialysis 12/14/2024 Orders Only [facility] [address] [address] Denys Mueller MD 12/14/2024 Treatment [facility] [place] [address] [facility] [place] [address] Tiffani Olson, PATIENT RELATIONS SPECIALIST-C 12/13/2024 Treatment [facility] [place] [address] [facility] [place] [address] Missy Izquierdo, CUSTOMER SUPPLY CHAIN ANALYST 12/12/2024 Orders Only [facility] [address] [address] Denys Mueller MD 12/07/2024 Orders Only [facility] [address] [address] Denys Mueller MD 12/07/2024 Treatment [facility] [place], [address] [facility] [place] [address] Tiffani Olson PATIENT RELATIONS SPECIALIST-C 11/30/2024 Orders Only [facility] [address] [address] Denys Mueller MD 11/23/2024 Orders Only [facility] [address] [address] Denys Mueller MD 11/23/2024 Treatment [facility] [place] [address] [facility] [place] [address] Tiffani Olson PATIENT RELATIONS SPECIALIST-C 11/16/2024 Treatment [facility] [place] [address] [place] [address] Tiffani Olson PATIENT RELATIONS SPECIALIST-C 11/16/2024 Telephone [facility] [place] - [facility] Center [address] [place] [address] Tanya Chi post op call 11/15/2024 9:00 AM EST Procedure visit [facility] [place], - Vascular Access Center [address] [place] [address] [place] [address] Ferdinand Monroe MD End stage renal disease (HCC) (Primary Dx); Stenosis of other vascular prosthetic devices, implants and grafts, initial encounter (HCC) 11/14/2024 Telephone [facility] [place], [facility] Vascular Access Center [address] [place] [address] [place] [address] Koo Kristen 11/09/2024 Orders Only [facility] [address] [address] Denys Mueller MD 11/09/2024 Treatment [facility] [place], [address] [place] [address] Tiffani Olson FNP-C 11/07/2024 Orders Only [facility] [address] [address] Denys Mueller MD 11/02/2024 Treatment [facility] [place], [address] [place] [address] Sawyer Davis MD 10/31/2024 Treatment [facility] [place], [address] [place] [address] Gabriela Hernandez PA 10/26/2024 Orders Only [facility] [address] [address] Denys Mueller MD from Last 3 Months Immunizations Name Administration [...] visit [facility] [place] - [facility] Center [address] [place] [address] [place] [address] Health Maintenance Due Date Last Done [...] 11/07/2024 CHEMISTRY Routine 11/07/2024 HEMATOLOGY Routine 10/26/2024 SPECIAL CHEMISTRY Routine 05/04/2024 from Last 3 Months or Most Recently Relevant to Health Maintenance Results * IMMUNO CHEMISTRY (01/04/2025) Only the most recent of3 resultswithin the time period is included. Hep B Surface Ag Negative Negative [facility] 01/04/2025 01/05/2025 9:1 3 AM EDT Narrative Resulting Agency Comment Specimen source: Serum us Denys Mueller MD LAB BLOOD ORDERABLES Final Re sult [facility] See order comments or contact performing lab Unknown, [place] * (ABNORMAL) HEMATOLOGY (01/04/2025) Only the most recent of11 resultswithin the time period is included. Pathologist [facility] Hemoglobin 11.2(L) 14.0 - 18.0 g/dL [facility] Hemoglobin x 3 33.6(L) 42.0 - 54.0 % [facility] 01/04/2025 01/05/2025 8:5 0 AM EDT Narrative [facility] - 01/05/2025 Unless otherwise specified, test(s) performed at: [facility], [address] [place] [address] LABORER WRECKING AND SALVAGING: Blane Ramsay M.D. For any questions, please call customer service at FREQUENCY:MONTHLY Resulting Agency Comment Specimen source: Blood Denys Mueller MD LAB BLOOD ORDERABLES Final Re sult [facility] See order comments or contact performing lab Unknown, [place] * (ABNORMAL) [facility] (01/04/2025) Only the most recent of13 resultswithin the time period is included. Pathologist [facility] Creatinine 9.17(H) 0.60 - 1.30 mg/dL [facility] [...] 01/05/2025 Unless otherwise specified, test(s) performed at: [facility], [address] [place] [address] LABORER WRECKING AND SALVAGING: Blane Ramsay M.D. For any questions, please call customer service at FREQUENCY:MONTHLY Resulting Agency Comment Specimen source: Serum Denys Mueller MD LAB BLOOD ORDERABLES Final Re sult Performing Organization Address [facility] de Phone Number [facility] See order comments or contact performing lab Unknown, [place] * HD KINETICS (12/21/2024) Only the most recent of2 resultswithin the time period is included. % Urea Reduction 79 65 - 80 % [facility] 12/21/2024 12/23/2024 2:2 1 PM EST Narrative Resulting Agency Comment Specimen source: Plasma Denys Mueller MD LAB BLOOD ORDERABLES Final Re sult Performing Organization Address [facility] de Phone Number [facility] See order comments or contact performing lab Unknown, [place] * POST CHEMISTRY (12/21/2024) Only the most recent of2 resultswithin the time period is included. BUN Post Dialysis 13 6 - 19 mg/dL [facility] 12/21/2024 12/23/2024 2:2 1 PM EST Narrative [facility] - 12/23/2024 Unless otherwise specified, test(s) performed at: [facility], [address] [place], [place] [id number] LABORER WRECKING AND SALVAGING: Blane Ramsay M.D. For any questions, please call customer service at FREQUENCY:OTHER Resulting Agency Comment Specimen source: Plasma Denys Mueller MD LAB BLOOD ORDERABLES Final Re sult [facility] See order comments or contact performing lab Unknown, [place] * [facility] Results (12/21/2024) Only the most recent of2 resultswithin the time period is included. Pathologist [facility] WSTDKT/V 2.7 Knowledge Center spKt/V Gotch 2.05 [facility] nPCR_HD 1.28 [facility] eKt/V ([place]) 1.70 [facility] eNPCR 1.20 [facility] spKt/V (Daugirdas II) 1.94 [facility] PCR 73.57 [facility] eKdrt/V 1.77 [facility] eKt/V Gotch 1.77 [facility] e Center 12/21/2024 12/21/2024 [facility] Ordering Provider LAB BLOOD ORDERABLES Final Result Performing Organization Address City/[facility]/ZIP Co de Phone Number [facility] Contact Performing lab Unknown, [place] * SPECIAL CHEMISTRY (11/16/2024) Only the most recent of2 resultswithin the time period is included. Pathologist [facility] Vitamin D, 25-OH, Total 66.0 30.0 - 100.0 ng/mL [facility] Comment: Please Note:? Effective August 17, 2023, the methodology for this test has changed to the [facility]. 11/16/2024 11/18/2024 7:5 9 AM EST Narrative [facility] - 11/18/2024 Unless otherwise specified, test(s) performed at: [facility], [address] [place] [id number] LABORER WRECKING AND SALVAGING: Blane Ramsay M.D. For any questions, please call customer service at FREQUENCY:OTHER Resulting Agency Comment Specimen source: Serum us Denys Mueller MD LAB BLOOD BANK TEST ORDERABLE S Final Result [facility] See order comments or contact performing lab Unknown, [place] from Last 3 Months or Most Recently Relevant to Health Maintenance Insurance MEDICARE [facility] MEDICARE [facility] Care Teams Medicare Sales Executive Relationship Specialty Start Date End Date Matias Tan MD [address] [place] [address] PCP - General Family Medicine 10/24/19
--- OUTSIDE RECORDS SUMMARY | 2025-01-22 12:37 | XMS_ITS | Encounter Summary ---
Author Organization [facility] [place], Address [address] [place] [address] Phone Care Team Providers Care Taximeter Repairer Name Role Phone Matias Tan MD Primary Care Provider +1- [phone] Reason for Visit * Reason Onset Date Comments Med Refill 07/01/2024 Encounter Details Date Type Department Care Team (Late Contact Info) Description 07/01/2024 Refill [facility], - Vascular Access Center [address] [place] [phone] Dale Lema MD [address] [place] [address] Social History Tobacco Use Types Packs/Day Years [...] visit [facility] [place] - V[facility] Access Center [address] [place] [phone] documented as of this encounter Visit Diagnoses Not on filedocumented in this encounter Care Teams Taximeter Repairer Relationship Specialty Start Date End Date Matias Tan MD [address] [facility] [place] [phone] PCP - General Family Medicine 10/24/19 documented as of this encounter
--- NOTE | 2025-01-22 12:39 | ED_ITS ---
HPI - Weakness General Chief complaint: Failure to Thrive Stated complaint: WEAK,UNABLE TO AMB,D/C T-1 PER EMS Time Seen by Provider: 01/22/25 12:18 Source: patient and EMS Mode of arrival: EMS Limitations: no limitations History of Present Illness ED Provider: Radha Sheikh APRN HPI Narrative: 70 year old male with PMHx of ESRD on dialysis (MWF schedule - with BRAULIO graft, follows with Dr. Allen), T2DM, secondary hyperparathyroidism, and HTN, recent admission 01/18-01/21 (worsening confusion, gait abnormality) here with complaints of generalized weakness since being released from hospital yesterday. Patient reports generalized weakness, only able to walk a few steps independently. Also reports upper abdominal pain, nausea/discomfort. No chest pain, shortness of breath, vomiting, diarrhea, fevers, chills, headache, dizziness. At discharge it was recommended he have 24/7 care d/t moderate cognitive impairment and patient was discharged in the care of his . Related Data Home Medications ?Medication ?Instructions ?Recorded ?Confirmed atenolol 100 mg tablet 1 tab PO DAILY 07/11/21 01/22/25 blood sugar diagnostic (FreeStyle 07/11/21 10/30/24 Lite Strips) dextroamphetamine-amphetamine 20 1 tab PO TID@0800,1400,1800 07/11/21 01/22/25 mg tablet levothyroxine 137 mcg tablet 1 tab PO DAILY@0600 07/11/21 01/22/25 pen needle, diabetic 31 gauge x 07/11/21 10/30/24 5/16 (BD Ultra-Fine Short Pen Needle) amlodipine 5 mg tablet 5 mg PO BID 09/03/23 01/22/25 atorvastatin 40 mg tablet 40 mg PO DAILY 02/22/24 01/22/25 sodium zirconium cyclosilicate 10 10 g PO SUTUTHSA@0900 06/19/24 01/22/25 gram oral powder packet (Lokelma) alprazolam 0.5 mg tablet 0.5 mg PO DAILY PRN anxiety attack 10/30/24 01/22/25 alprazolam 2 mg tablet 2 mg PO BID 10/30/24 01/22/25 insulin lispro 100 unit/mL See Protocol subcut TIDAC PRN 10/30/24 01/22/25 subcutaneous pen (Humalog KwikPen Blood Glucose (U-100) Insulin) vitamin D3 25 mcg (1,000 unit)-vit 1 tab PO SUTUTHSA@0900 11/02/24 01/22/25 K2 90 mcg disintegrating tablet losartan 100 mg tablet 100 mg PO DAILY 01/09/25 01/22/25 sevelamer carbonate 800 mg tablet 1,600 mg PO TIDWM 01/09/25 01/22/25 albuterol sulfate 2.5 mg/3 mL 2.5 mg inhalation Q6H PRN Wheezing 01/18/25 01/22/25 (0.083 %) solution for nebulization albuterol sulfate 90 mcg/actuation 2 puff inhalation Q6H PRN 01/18/25 01/22/25 aerosol inhaler (Ventolin HFA) Shortness Of Breath Or Wheezing calcium carbonate (Tums) 200 mg PO TID PRN UPSET STOMACH 01/18/25 01/22/25 cholecalciferol (vitamin D3) 125 125 mcg PO DAILY 01/18/25 01/22/25 mcg (5,000 unit) tablet (Vitamin D3) insulin glargine 100 unit/mL 10 unit subcut BEDTIME 01/18/25 01/22/25 subcutaneous solution (Lantus U-100 Insulin) melatonin 5 mg tablet 5 mg PO BEDTIME PRN Insomnia 01/18/25 01/22/25 quetiapine 25 mg tablet (Seroquel) 25 mg PO BID PRN Agitation 01/18/25 01/22/25 sevelamer carbonate 800 mg tablet 800 mg PO DAILY PRN SNACKS 01/18/25 01/22/25 vitamin B complex and vitamin C 1 cap PO DAILY 01/18/25 01/22/25 no.20-folic acid 1 mg capsule Previous Rx's ?Medication ?Instructions ?Recorded hydromorphone 4 mg tablet 4 mg PO Q3H PRN Severe Pain (Scale 01/12/25 Score 7-10) #20 tabs Allergies Allergy/AdvReac Type Severity Reaction Status Date / Time Penicillins [PENICILLINS] Allergy Unknown RASH Verified 01/22/25 12:27 tramadol [From ULTRAM] Allergy Unknown RASH Verified 01/22/25 12:27 trazodone [TRAZODONE] Allergy Unknown PRIAPISM Verified 01/22/25 12:27 risperidone [RISPERIDONE] AdvReac Severe dizzy, EPS Verified 01/22/25 12:27 Review of Systems 2 Review of Systems: Yes all other systems are reviewed and are negative Constitutional: Constitutional: Reports no additional constitutional complaints, Denies body ache(s), Denies chills, Denies fever(s), Denies headache(s) and Reports weakness Eyes: Eyes: Reports no additional eye complaints and Denies change in vision ENT: Reports system reviewed and no additional complaints, except as documented, Denies dizziness, Denies headache(s), Denies nasal congestion, Denies nasal discharge and Denies neck pain Cardiovascular: Cardiovascular: Reports no additional cardiovascular complaints, Denies chest pain, Denies leg edema and Denies dyspnea Respiratory: Respiratory: Reports no additional respiratory complaints, Denies cough and Denies dyspnea Gastrointestinal: Gastrointestinal: Reports no additional gastrointestinal complaints, Reports abdominal pain, Denies diarrhea, Denies nausea and Denies vomiting Genitourinary: Genitourinary: Denies urinary incontinence Musculoskeletal: Musculoskeletal: Reports no additional musculoskeletal complaints, Denies back pain, Denies arthralgias, Denies joint swelling, Denies neck pain, Denies numbness and Denies tingling Integumentary/Breasts: Skin/Breast: Reports system reviewed and no additional complaints, except as docu and Denies rash Neurologic: Reports system reviewed and no additional complaints, except as documented, Denies Abnormal speech present, Denies dizziness, Denies headache(s), Denies numbness, Denies tingling and Reports weakness PMFSH Past Medical History Attestation statement: The following information was validated with the patient. 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 with re- educa Patient Tobacco Use Status: Never used Tobacco Cigarette Packs Per Day: 0 Cigarettes Per Day: 0.0 Years Smoked: NA e-Cigarette/Vaping Use: Never Used Second Hand Smoke Exposure: No Advance Directives: Yes Advance Directives on File: Yes Advance Directives Date on File: 09/07/23 Do you have a plan to hurt others: No Plan service: No Physical Exam 2 Vital Signs: Vital Signs: Last Vital Signs Temp 98.0 F 01/22/25 12:24 Pulse 74 01/22/25 16:18 Resp 14 01/22/25 16:18 BP 142/64 H 01/22/25 16:18 Pulse Ox 100 01/22/25 16:18 O2 Del Method Room Air 01/22/25 16:18 BMI result Body Mass Index 27.6 Const: General: cooperative, healthy appearing, comfortable and no acute distress Orientation/consciousness: patient oriented x3 Limitations: no limitations HEENT: Head: Yes normal to inspection Ears: hearing grossly normal bilaterally and TM's normal bilaterally General nose exam: Normal external nose present Face and sinus: Yes normal facial exam Mouth: Normal oral and palatal mucosa present Throat: Yes posterior oropharynx normal, Yes tonsils normal and Yes uvula midline Eyes: General: appearance normal, both eyes and all related structures P upils: Equal, round and reactive pupils present Neck: Neck: Yes normal visual inspection, Yes full ROM, Yes no lymphadenopathy and Yes no meningeal signs Chest: Chest palpation & inspection: normal inspection of the chest Resp: Effort & Inspection: normal respiratory effort Auscultation: clear to auscultation bilaterally Cardio: Rate: regular rate Rhythm: regular rhythm Peripheral pulses: P eripheral pulses 2+ throughout GI: Inspection: Yes normal to inspection Palpation (GI): Soft to palpation and nontender Auscultation: normal bowel sounds Back/Spine/Pelvis: Thoracic/Lumbar Spine: thoracic and lumbar spine normal to inspection Skin: General skin exam: no rashes or lesions noted Neuro: General: patient oriented x3, moves all extremities, no meningeal signs, no focal motor deficits and normal sensation to monofilament Cranial nerves: Yes CN's II-XII intact bilaterally, Yes Equal, round and reactive pupils present, Yes Bilaterally intact EOM present, Yes Nystagmus not present, Yes Normal facial strength present and Yes Midline tongue present Cognition (Neuro): normal cognition Speech: No Abnormal speech present Motor exam (neuro): 5/5 motor strength present throughout Sensory Exam: Normal double simultaneous stimulation for sensation Extrem: General: Yes normal to inspection Course Course Course Narrative: patient's hemoglobin/hematocrit have decreased since he was discharged yesterday. His rectal exam shows black stool. It is occult positive. I spoke to GI. Recommended IV PPI and admission. Will discuss with hospitalist. I did reach out to the patient's and updated her on the plan of care. She has additional concerns the patient is quite weak and will need short-term rehab. Additionally he is due for dialysis tomorrow. Medications Administered Discontinued Medications Generic Name Dose Route Start Last Admin Trade Name Freq PRN Reason Stop Dose Admin Sodium Biphosphate/Sodium Phosphate 133 ml 01/22/25 15:08 01/22/25 16:20 Sodium Phosphate,[place]-Dibasic 133 Ml Enema UT 01/22/25 15:09 133 ml ONCE ONE Administration Medical Decision Making Medical Decision Making MDM Narrative: 70 year old male with PMHx of ESRD on dialysis (MWF schedule - with LUE graft, follows with Dr. Allen), T2DM, secondary hyperparathyroidism, and HTN, recent admission 01/18-01/21 (worsening confusion, gait abnormality) here with complaints of generalized weakness since being released from hospital yesterday. Also reports upper abdominal pain, nausea/discomfort. Patient reports generalized weakness, only able to walk a few steps independently. No chest pain, shortness of breath, vomiting, diarrhea, fevers, chills, headache, dizziness. At discharge it was recommended he have 24/7 care d/t moderate cognitive impairment and patient was discharged in the care of his . No focal neurological finding. VSS Will obtain labs, EKG, CXR, UA Will obtain collateral information from family. Anticipate patient will need placement if medically cleared. 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 01/22/25 14:23 04/06/25 14:23 Labs: Lab Results 01/22/25 01/22/25 01/22/25 Range/Units 14:23 15:13 15:22 WBC 14.7 H (4.8-10.8) X10*3/uL RBC 2.71 L D (4.60-5.80) X10*6/uL Hgb 8.3 L D (14.0-18.0) g/dl Hct 23.1 L D (42.0-52.0) % MCV 85.2 (80.0-98.0) fL MCH 30.6 (27.0-33.0) pg MCHC 35.9 (31.0-36.0) g/dl RDW 14.6 (11.0-16.0) % Plt Count 239 (160-400) X10*3/uL MPV 9.7 (9.4-12.4) fL Immature Gran % (Auto) 0.8 H (0.0-0.4) % Neut % (Auto) 77.5 H (45-73) % Lymph % (Auto) 11.6 L (20-40) % [place] % (Auto) 9.0 (2-11) % Eos % (Auto) 1.0 (0-4) % Baso % (Auto) 0.1 (0-2) % Lymph # (Auto) 1.7 (1.2-4.9) X10*3/uL [place] # (Auto) 1.3 H (0.1-1.2) X10*3/uL Eos # (Auto) 0.1 (0.0-0.4) X10*3/uL Baso # (Auto) 0.0 (0.0-0.2) X10*3/uL Abs Immat Gran (auto) 0.12 H (0.00-0.03) X10*3/uL Absolute Neuts (auto) 11.4 H (2.0-8.3) x10*3/uL Absolute Nucleated RBC 0.000 (0.0-0.012) X10*3/uL Nucleated RBC % (auto) 0.0 (0.0-0.2) /100WBC Sodium 132 L (135-145) mmol/L Potassium 4.3 (3.3-5.1) mmol/L Chloride 92 L (96-108) mmol/L Carbon Dioxide 26 (22-29) mmol/L Anion Gap 18 (12-20) BUN 81 H (9-16) mg/dL Creatinine 10.20 H* (0.5-1.4) mg/dL Estim Creat Clear Calc 6.5 Estimated GFR 5 Random Glucose 169 H (60-115) mg/dL Calcium 7.6 L (8.4-10.2) mg/dL Magnesium 2.3 (1.6-2.6) mg/dL Total Bilirubin 0.4 (0.0-1.0) mg/dL Direct Bilirubin 0.1 (0.0-0.5) mg/dL AST 20 (5-37) U/L ALT 14 (0-40) U/L Alkaline Phosphatase 52 (39-117) U/L Troponin I High Sens 12.4 (<3.5-35.0) ng/L Total Protein 5.2 L (6.5-8.0) g/dL Albumin 3.1 L (3.5-5.0) g/dL Stool Occult Blood POSITIVE (NEGATIVE) Influenza Type A (PCR) POSITIVE A (Negative) Influenza Type B (PCR) NEGATIVE (Negative) RSV RNA Qual (PCR) NEGATIVE (Negative) SARS-CoV-2 RNA (RT-PCR) NEGATIVE (Negative) Independent Interpretation I performed an independent interpretation of an: EKG and Plain X-Ray Interpretation: I independently reviewed the chest x-ray and agree with the radiology report I independently viewed the EKG which shows normal sinus rhythm with a rate of 70, normal UT, normal QRS, normal QT Radiology Impression Discussion of test interpretation with radiology: I have reviewed the radiologist's reading. 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 Normal size heart. No acute fracture. IMPRESSION: 1. No acute findings. This document has be Independent Historian Clinical information obtained from an independent historian. History obtained from or confirmed by: EMS External Record Review External record reviewed: Inpatient record Discharge Plan Discharge Clinical Impression: Anemia, Weakness, Occult blood positive stool Patient Disposition: Admitted As Inpatient Print Language: Bhutanese
[2025-01-22 14:29] LABS: MANUAL DIFF FLAG NO
[2025-01-22 14:30] LABS: Basophils Percent Auto 0.1 % (0-2); Eosinophils Absolute Auto 0.1 X10*3/uL (0.0-0.4); Hematocrit 23.1 % (42.0-52.0); Hemoglobin 8.3 g/dl (14.0-18.0); Imm Gran Abs Auto 0.12 X10*3/uL (0.00-0.03); Imm Gran Pct Auto 0.8 % (0.0-0.4); Lymphocytes Absolute Auto 1.7 X10*3/uL (1.2-4.9); Lymphocytes Percent Auto 11.6 % (20-40); Mean Corpuscular HGB Conc 35.9 g/dl (31.0-36.0); Mean Corpuscular Hemoglobin 30.6 pg (27.0-33.0); Mean Corpuscular Volume 85.2 fL (80.0-98.0); Mean Platelet Volume 9.7 fL (9.4-12.4); Monocytes Absolute Auto 1.3 X10*3/uL (0.1-1.2); Neutrophils Absolute Auto 11.4 x10*3/uL (2.0-8.3); Neutrophils Percent Auto 77.5 % (45-73); Platelet Count 239 X10*3/uL (160-400); Red Blood Count 2.71 X10*6/uL (4.60-5.80); Red Cell Distribution Width 14.6 % (11.0-16.0); White Blood Count 14.7 X10*3/uL (4.8-10.8)
--- NOTE | 2025-01-22 14:30 | PC.NURSE ---
Spoke with patients and she states that the previous rehab facility was to aggressive with their physical therapy. She would like to collaborate with case management to identify a more appropriate rehab facility.
[2025-01-22 14:50] LABS: Troponin-I High Sensitivity 12.4 ng/L (<3.5-35.0)
[2025-01-22 14:52] LABS: Alanine Aminotransferase 14 U/L (0-40); Albumin Level 3.1 g/dL (3.5-5.0); Alkaline Phosphatase 52 U/L (39-117); Anion Gap 18 (12-20); Aspartate Amino Transferase 20 U/L (5-37); Bilirubin Direct 0.1 mg/dL (0.0-0.5); Bilirubin Total 0.4 mg/dL (0.0-1.0); Blood Urea Nitrogen 81 mg/dL (9-16); Calcium 7.6 mg/dL (8.4-10.2); Carbon Dioxide 26 mmol/L (22-29); Chloride 92 mmol/L (96-108); Creatinine Clr Calc Pharmacy 6.5; Estimated Glomerular Filt Rate 5; Glucose Random 169 mg/dL (60-115); Magnesium 2.3 mg/dL (1.6-2.6); Potassium 4.3 mmol/L (3.3-5.1); Sodium 132 mmol/L (135-145); Total Protein 5.2 g/dL (6.5-8.0)
[2025-01-22 15:21] LABS: OBS Int Ctl Valid YES; OBS1 POSITIVE (NEGATIVE)
[2025-01-22 16:06] LABS: Influenza A PCR POSITIVE (Negative); Influenza B PCR NEGATIVE (Negative); Resp Syncy Virus RNA Qual PCR NEGATIVE (Negative); SARS COV2 PCR INHOUSE NEGATIVE (Negative)
[2025-01-22] MEDS: Sodium Phosphate,Mono-Dibasic 133 ML ENEMA PR (16:20)
--- NOTE | 2025-01-22 16:41 | PC.NURSE ---
Fleets given as ordered. Small amount of formed dark stool noted. No BRB.
--- NOTE | 2025-01-22 17:06 | PHA.MEDREC ---
Pharmacy Consult ? Medication Reconciliation Pharmacy has completed the medication reconciliation. Pt recently discharged 01/21/25. Utilized discharge packet to confirm meds.
--- NOTE | 2025-01-22 17:37 | PM.IMHP ---
History of Present Illness Date of Service: 01/22/25 Attending physician on admission: Chandler Garcia Chief Complaint: Generalized weakness Pt is a 70-year-old male with a PMH significant for?ESRD on HD M/W/F, HTN, insulin-dependent type 2 diabetes, hypothyroidism, HLD, normocytic anemia, and mood disorder who presents to the ED with?generalized weakness and unable to ambulate at home. Pt was just discharged from the hospital yesterday after presenting on 01/19 with acute encephalopathy and gait abnormality. Pt had no obvious infectious source and pt's mentation seen back to baseline during hospital stay. Patient's gait abnormality has been ongoing for months. Has had extensive workup with Neurology at [facility] as well as seen by Neurology here on previous admission. MRI on 01/19 initially concerning for occlusive thrombus, but subsequent venogram was normal and showed no main cerebral venous sinus thrombosis. MRI also showed global cerebral atrophy questionable normal pressure hydrocephalus, which Neurology recommended for outpatient follow-up. Of note, pt was seen by OT and [place] score was 14/30 which indicated moderate cognitive impairment and recommended 24/7 care, which patient's declined. Pt was discharged yesterday with PT/OT services. Pt reports initially felt fine once he got home, but then developed central abdominal pain a few hours later. Denies any nausea or vomiting. No diarrhea. Denies hematochezia or melena. No lightheadedness or dizziness. Pt reports he has a walker and cane at home, but tries not to use them so as to get around on his own and strength in his legs. However, pt found that his legs were too weak to support him and has only been able to take a few steps while at home. Denies fall. No chest pain/pressure, palpitations. Denies shortness or breath or difficulty breathing. No fever, chills. Denies cough. In the ED pt with slightly soft BP of 133/56, vitals otherwise stable and WNL. Labs were significant for leukocytosis 14.4, H&H 8.3/23.1 (decreased from 10.9/31.6 two days prior on 01/20/2025), sodium 132, BUN 81, and creatinine 10.20. Stool tested positive for occult blood. Pt continues to test positive for influenza type A. CXR showed no acute findings. EKG demonstrated normal sinus rhythm without evidence of significant ischemic changes, similar to prior. Pt was treated with Protonix and Fleet enema. Pt will be admitted to the hospital for treatment and further evaluation of acute anemia and generalized weakness concerning for possible GI bleed. Review of Systems Review of Systems: Negative except for that which is stated in the HPI. [facility] Medical History ESRD needing dialysis End stage kidney disease Secondary hyperparathyroidism (of renal origin) Anemia in chronic kidney disease DONIS (acute kidney injury) End stage renal disease on dialysis Diabetes Kidney failure HTN (hypertension) Social History Household Members: Spouse Housing: House Are you a primary day care supervisor to a significant other at home: No Do you presently have visiting nurse or other home services: No Alcohol intake: never Comment: Pt turning off own bed alarm Kasie Pizarro NP aware provide with re-educa Patient Tobacco Use Status: Never used Tobacco Cigarette Packs Per Day: 0 Cigarettes Per Day: 0.0 Years Smoked: NA e-Cigarette/Vaping Use: Never Used Second Hand Smoke Exposure: No Advance Directives: Yes Advance Directives on File: Yes Advance Directives Date on File: 09/07/23 Do you have a plan to hurt others: No Plan service: No Meds Allergies Allergy/AdvReac Type Severity Reaction Status Date / Time Penicillins [PENICILLINS] Allergy Unknown RASH Verified 01/22/25 12:27 tramadol [From ULTRAM] Allergy Unknown RASH Verified 01/22/25 12:27 trazodone [TRAZODONE] Allergy Unknown PRIAPISM Verified 01/22/25 12:27 risperidone [RISPERIDONE] AdvReac Severe dizzy, EPS Verified 01/22/25 12:27 Home Medications ?Medication ?Instructions ?Recorded ?Confirmed ?Last Taken ?Type atenolol 100 mg tablet 1 tab PO DAILY 07/11/21 01/22/25 01/06/25 History blood sugar diagnostic (Belindayle 07/11/21 10/30/24 10/30/24 09:00 History Lite Strips) dextroamphetamine-amphetamine 20 1 tab PO TID@0800,1400,1800 07/11/21 01/22/25 01/06/25 History mg tablet levothyroxine 137 mcg tablet 1 tab PO DAILY@0600 07/11/21 01/22/25 01/06/25 History pen needle, diabetic 31 gauge x 07/11/21 10/30/24 10/30/24 09:00 History 5/16 (BD Ultra-Fine Short Pen Needle) amlodipine 5 mg tablet 5 mg PO BID 09/03/23 01/22/25 01/06/25 History atorvastatin 40 mg tablet 40 mg PO DAILY 02/22/24 01/22/25 01/06/25 History sodium zirconium cyclosilicate 10 10 g PO SUTUTHSA@0900 06/19/24 01/22/25 01/05/25 History gram oral powder packet (Lokelma) alprazolam 0.5 mg tablet 0.5 mg PO DAILY PRN anxiety attack 10/30/24 01/22/25 10/30/24 09:00 History alprazolam 2 mg tablet 2 mg PO BID 10/30/24 01/22/25 01/06/25 History insulin lispro 100 unit/mL See Protocol subcut TIDAC PRN 10/30/24 01/22/25 10/30/24 09:00 History subcutaneous pen (Humalog KwikPen Blood Glucose (U-100) Insulin) vitamin D3 25 mcg (1,000 unit)-vit 1 tab PO SUTUTHSA@0911/02/24 01/22/25 01/05/25 History K2 90 mcg disintegrating tablet losartan 100 mg tablet 100 mg PO DAILY 01/09/25 01/22/25 01/06/25 History sevelamer carbonate 800 mg tablet 1,600 mg PO TIDWM 01/09/25 01/22/25 01/06/25 History albuterol sulfate 2.5 mg/3 mL 2.5 mg inhalation Q6H PRN Wheezing 01/18/25 01/22/25 Unknown History (0.083 %) solution for nebulization albuterol sulfate 90 mcg/actuation 2 puff inhalation Q6H PRN 01/18/25 01/22/25 Unknown History aerosol inhaler (Ventolin HFA) Shortness Of Breath Or Wheezing calcium carbonate (Tums) 200 mg PO TID PRN UPSET STOMACH 01/18/25 01/22/25 Unknown History cholecalciferol (vitamin D3) 125 125 mcg PO DAILY 01/18/25 01/22/25 Unknown History mcg (5,000 unit) tablet (Vitamin D3) insulin glargine 100 unit/mL 10 unit subcut BEDTIME 01/18/25 01/22/25 Unknown History subcutaneous solution (Lantus U-100 Insulin) melatonin 5 mg tablet 5 mg PO BEDTIME PRN Insomnia 01/18/25 01/22/25 Unknown History quetiapine 25 mg tablet (Seroquel) 25 mg PO BID PRN Agitation 01/18/25 01/22/25 Unknown History sevelamer carbonate 800 mg tablet 800 mg PO DAILY PRN SNACKS 01/18/25 01/22/25 Unknown History vitamin B complex and vitamin C 1 cap PO DAILY 01/18/25 01/22/25 Unknown History no.20-folic acid 1 mg capsule Physical Exam Vital Signs and Narrative: Vital Signs: Last Vital Signs Temp 98.0 F 01/22/25 12:24 Pulse 74 01/22/25 16:18 Resp 14 01/22/25 16:18 BP 142/64 H 01/22/25 16:18 Pulse Ox 100 01/22/25 16:18 O2 Del Method Room Air 01/22/25 16:18 BMI result Body Mass Index 27.6 General: AOx3, no acute distress Resp: CTA bilaterally. No wheezing, rales, or rhonchi CVS: S1, S2, RRR GI: +BS, NT, no distention Skin: Warm, dry Neuro: Cranial nerves II-XII grossly intact bilaterally. Motor grossly intact bilaterally. Lower extremities 3/5 symmetric strength. Extremities: No edema Psych: Appropriate affect Results Labs 01/22/25 14:23 01/22/25 14:23 Labs: Laboratory Results - last 24 hr 01/22/25 01/22/25 01/22/25 14:23 15:13 15:22 MCV 85.2 MCH 30.6 MCHC 35.9 RDW 14.6 Plt Count 239 MPV 9.7 Immature Gran % (Auto) 0.8 H Neut % (Auto) 77.5 H Lymph % (Auto) 11.6 L [place] % (Auto) 9.0 Eos % (Auto) 1.0 Baso % (Auto) 0.1 Lymph # (Auto) 1.7 [place] # (Auto) 1.3 H Eos # (Auto) 0.1 Baso # (Auto) 0.0 Abs Immat Gran (auto) 0.12 H Absolute Neuts (auto) 11.4 H Absolute Nucleated RBC 0.000 Nucleated RBC % (auto) 0.0 Anion Gap 18 Estim Creat Clear Calc 6.5 Estimated GFR 5 Random Glucose 169 H Calcium 7.6 L Magnesium 2.3 Total Bilirubin 0.4 Direct Bilirubin 0.1 AST 20 ALT 14 Alkaline Phosphatase 52 Total Protein 5.2 L Albumin 3.1 L Stool Occult Blood POSITIVE Influenza Type A (PCR) POSITIVE A Influenza Type B (PCR) NEGATIVE RSV RNA Qual (PCR) NEGATIVE SARS-CoV-2 RNA (RT-PCR) NEGATIVE Assessment and Plan (1) Generalized weakness: Status: Acute (2) Acute on chronic anemia: Status: Acute Plan Pt is a 70-year-old male with a PMH significant for?ESRD on HD M/W/F, HTN, insulin-dependent type 2 diabetes, hypothyroidism, HLD, normocytic anemia, and mood disorder who presents to the ED with?generalized weakness and unable to ambulate at home. Pt will be admitted to the hospital for treatment and further evaluation of acute anemia and generalized weakness concerning for possible GI bleed. Acute on chronic anemia Pt with generalized weakness, substernal/epigastric abdominal pain x2 days H&H H 8.3/23.1, decreased from 10.9/31.6 2 days prior, stool positive for occult blood Concerning for GIB Pt denies hematochezia or melena Will treat with Protonix IV b.i.d. Clear liquid diet for now, NPO after midnight for possible EGD GI consult Follow CBC Leukocytosis WBCs 14.7 at time presentation Pt without symptoms concerning for acute infection Likely reactionary No indication for antibiotics at this time Follow CBC ESRD on HD M/W/F Nephrology consult, follows with [facility] Continue Lokelma, Renvela Follow lytes Monitor on telemetry Insulin-dependent type [address] sliding scale insulin Continue Lantus Diabetic diet HTN Continue amlodipine, atenolol, and losartan HLD Continue statin Full Code Attending:?Dr. Garcia DVT Prophylaxis: Pneumatic compression due to concern for GIB Pt will require a hospitalization of at least two nights for treatment of?acute anemia and generalized weakness in the setting of possible GI bleed. Pt will require close monitoring of labs as well as specialist consultation with GI for possible EGD in the morning. Quality Stroke Does the patient have a stroke diagnosis?: No VTE Prior VTE?: No VTE Risk Level:: Medical - moderate - high VTE Device Contraindication: Treatment Not Indicated VTE Drug Contraindication: N/A - Med Ordered
[2025-01-22] MEDS: ALPRAZolam 0.5 MG TABLET 2 MG PO ×2 (18:05→21:30)
[2025-01-22] MEDS: Pantoprazole Sodium 40 MG/10 ML VIAL IVPUSH (18:05)
[2025-01-22] MEDS: HYDROmorphone HCl 2 MG TABLET 4 MG PO ×2 (18:06→21:36)
--- NOTE | 2025-01-22 20:51 | MHC.EDTECH ---
pt confused, RN notified
[2025-01-22] MEDS: amLODIPine Besylate 5 MG TABLET PO (21:30)
[2025-01-23 01:54] VITALS: BP 151/60; PULSE 65; RESP 13; TEMP 36.5; O2SAT 97
--- NOTE | 2025-01-23 01:55 | PC.NURSE ---
assist pt at bedside with urinal for UA, unable to urinate at this time =. assist back into bed
[2025-01-23] MEDS: 0.9 % Sodium Chloride Flush 3 ML SYRINGE IVFLUSH ×3 (01:56→17:37)
[2025-01-23] MEDS: HYDROmorphone HCl 2 MG TABLET 4 MG PO ×3 (03:08→17:36)
[2025-01-23 04:00] VITALS: BP 139/53; PULSE 57; RESP 12; TEMP 36.8; O2SAT 96
[2025-01-23 05:11] LABS: Hematocrit 24.3 % (42.0-52.0); Hemoglobin 8.5 g/dl (14.0-18.0); Mean Corpuscular Hemoglobin 30.4 pg (27.0-33.0); Mean Corpuscular Volume 86.8 fL (80.0-98.0); Mean Platelet Volume 9.9 fL (9.4-12.4); Platelet Count 246 X10*3/uL (160-400); Red Cell Distribution Width 14.7 % (11.0-16.0); White Blood Count 9.9 X10*3/uL (4.8-10.8)
[2025-01-23 05:33] LABS: Anion Gap 17 (12-20); Blood Urea Nitrogen 82 mg/dL (9-16); Calcium 7.3 mg/dL (8.4-10.2); Carbon Dioxide 23 mmol/L (22-29); Chloride 93 mmol/L (96-108); Estimated Glomerular Filt Rate 5; Glucose Random 85 mg/dL (60-115); Potassium 4.5 mmol/L (3.3-5.1); Sodium 128 mmol/L (135-145)
--- NOTE | 2025-01-23 05:38 | PC.NURSE ---
critical lab: creatinine 10.95
[2025-01-23] MEDS: Pantoprazole Sodium 40 MG/10 ML VIAL IVPUSH ×2 (06:14→17:37)
[2025-01-23] MEDS: Levothyroxine Sodium 112 MCG, Levothyroxine Sodium 25 MCG 137 MCG PO (06:14)
--- NOTE | 2025-01-23 06:56 | P.CNGI_ITS ---
History of Present Illness Data of Consult Service Date: 01/23/25 Primary Care Provider: Unknown Physician HPI Reason for consult: anemia 70-year-old male with a hx of?ESRD on HD M/W/F, HTN, insulin-dependent type 2 diabetes, hypothyroidism, HLD, normocytic anemia, and mood disorder who I am seeing for anemia He presents to the ED with?generalized weakness and poor mobility. he had labs with HGB 8.3, decreased from 10.9/31.6 two days prior on 01/20/2025. He denies melena, rectal bleeding, nausea or bleeding. He had vague low level mid abdominal discomfort but now gone. denies constipation or diarrhea. No chest pain/pressure, palpitations. Denies shortness or breath or difficulty breathing. No fever, chills. Denies cough. Review of Systems 2 Review of Systems: Constitutional : No Weight loss, No Fever, No Chills ENT/Mouth : No sore throat, No Rhinorrhea Eyes: No Swelling, No Redness Cardiovascular : No Chest Pain, No SOB, No Edema Respiratory : No Cough, No Sputum, No Wheezing Gastrointestinal : see HPI Genitourinary : NO Dysuria, No Urinary Frequency, No Hematuria, No Urgency Musculoskeletal : no joint pain, No Myalgias, No Joint Swelling Skin : No Skin Lesions, No rash Neuro : No Weakness, No Numbness, No Dizziness, No Headache Psych : No Anxiety/Panic, No Depression Heme/Lymph: No Bruising, No Lymphadenopathy Endocrine : No Polyuria, No Polydipsia All other systems reviewed and are negative. [facility] Past Medical History Medical History ESRD needing dialysis End stage kidney disease Secondary hyperparathyroidism (of renal origin) Anemia in chronic kidney disease DONIS (acute kidney injury) End stage renal disease on dialysis Diabetes Kidney failure HTN (hypertension) Family History Pertinent family history: no fh of CRC or stomach ulcers Social History Social History Household Members: Spouse Housing: House Are you a primary healthcare account manager to a significant other at home: No Do you presently have visiting nurse or other home services: No Alcohol intake: never Comment: Pt turning off own bed alarm Kasie Pizarro NP aware provide with re- educa Patient Tobacco Use Status: Never used Tobacco Cigarette Packs Per Day: 0 Cigarettes Per Day: 0.0 Years Smoked: NA e-Cigarette/Vaping Use: Never Used Second Hand Smoke Exposure: No Advance Directives Date on File: 09/07/23 service: No Meds Allergies Allergy/AdvReac Type Severity Reaction Status Date / Time Penicillins [PENICILLINS] Allergy Unknown RASH Verified 01/22/25 12:27 tramadol [From ULTRAM] Allergy Unknown RASH Verified 01/22/25 12:27 trazodone [TRAZODONE] Allergy Unknown PRIAPISM Verified 01/22/25 12:27 risperidone [RISPERIDONE] AdvReac Severe dizzy, EPS Verified 01/22/25 12:27 Active Medications: Current Medications Acetaminophen (Acetaminophen 325 Mg Tablet) 650 mg PO Q6H PRN PRN Reason: Pain, Mild 1-3,fever,headache Albuterol Sulfate (Albuterol Sulfate 90 Mcg 8 Gm Inhaler) 2 puff INHALE Q6H PRN PRN Reason: Shortness Of Breath Or Wheezing Albuterol Sulfate (Albuterol Sulfate (0.083%) 2.5 Mg/3 Ml Vial.Neb) 2.5 mg INHALE Q6H PRN PRN Reason: Wheezing Alprazolam (Alprazolam 0.5 Mg Tablet) 0.5 mg PO DAILY PRN PRN Reason: anxiety attack Alprazolam (Alprazolam 0.5 Mg Tablet) 2 mg PO BID [facility] Last Admin: 01/22/25 21:30 Dose: 2 mg Amlodipine Besylate (Amlodipine Besylate 5 Mg Tablet) 5 mg PO BID [facility]; Protocol Last Admin: 01/22/25 21:30 Dose: 5 mg Amphetamine/Dextroamphetamine (Amphetamine Mixed Salts 20 Mg Tablet) 20 mg PO TID@0800,1400,1800 [facility] Atenolol (Atenolol 100 Mg Tablet) 100 mg PO DAILY [facility]; Protocol Atorvastatin Calcium (Atorvastatin Calcium 40 Mg Tablet) 40 mg PO DAILY [facility] Calcium Carbonate (Calcium Carbonate 750 Mg Tab.Chew) 750 mg PO Q4H PRN PRN Reason: Heartburn Hydromorphone HCl (Hydromorphone Hcl 2 Mg Tablet) 4 mg PO Q3H PRN PRN Reason: Severe Pain (Scale Score 7-10) Last Admin: 01/23/25 03:08 Dose: 4 mg Levothyroxine Sodium 112 mcg/ (Levothyroxine Sodium 25 mcg) 137 mcg PO DAILY@0600 [facility] Last Admin: 01/23/25 06:14 Dose: 137 mcg Losartan Potassium (Losartan Potassium 50 Mg Tablet) 100 mg PO DAILY [facility]; Protocol Magnesium Hydroxide (Milk Of Magnesia 30 Ml Oral.Susp) 30 ml PO DAILY PRN PRN Reason: Constipation Melatonin (Melatonin 3 Mg Tablet) 6 mg PO BEDTIME PRN PRN Reason: Insomnia Multivitamins/Vitamin C (Multivitamin Tablet) 1 tab PO DAILY [facility] Ondansetron HCl (Ondansetron Hcl 4 Mg/2 Ml Vial) 4 mg IVPUSH Q8H PRN PRN Reason: Nausea and Vomiting Pantoprazole Sodium (Pantoprazole Sodium 40 Mg/10 Ml Vial) 40 mg IVPUSH BID@0630,1630 [facility] Last Admin: 01/23/25 06:14 Dose: 40 mg Quetiapine Fumarate (Quetiapine Fumarate 25 Mg Tablet) 25 mg PO BID PRN PRN Reason: Agitation Sevelamer Carbonate (Sevelamer Carbonate Tablet 800 Mg Tablet) 1,600 mg PO TIDWM [facility] Sevelamer Carbonate (Sevelamer Carbonate Tablet 800 Mg Tablet) 800 mg PO DAILY PRN PRN Reason: SNACKS Sodium Chloride (0.9 % Sodium Chloride Flush 3 Ml Syringe) 3 ml IVFLUSH QSHIFT [facility] Last Admin: 01/23/25 01:56 Dose: 3 ml Sodium Zirconium Cyclosilicate (Sodium Zirconium Cyclosilicate 10 Gm Powd.Pack) 10 gm PO SUTUTHSA@0900 [facility] Vitamin D (Cholecalciferol (Vitamin D3) 25 Mcg Tablet) 125 mcg PO DAILY [facility] Home Medications ?Medication ?Instructions ?Recorded ?Confirmed ?Last Taken ?Type atenolol 100 mg tablet 1 tab PO DAILY 07/11/21 01/22/25 01/06/25 History blood sugar diagnostic (FreeStyle 07/11/21 10/30/24 10/30/24 09:00 History Lite Strips) dextroamphetamine-amphetamine 20 1 tab PO TID@0800,1400,1800 07/11/21 01/22/25 01/06/25 History mg tablet levothyroxine 137 mcg tablet 1 tab PO DAILY@0600 07/11/21 01/22/25 01/06/25 History pen needle, diabetic 31 gauge x 07/11/21 10/30/24 10/30/24 09:00 History 5/16 (BD Ultra-Fine Short Pen Needle) amlodipine 5 mg tablet 5 mg PO BID 09/03/23 01/22/25 01/06/25 History atorvastatin 40 mg tablet 40 mg PO DAILY 02/22/24 01/22/25 01/06/25 History sodium zirconium cyclosilicate 10 10 g PO SUTUTHSA@0900 06/19/24 01/22/25 01/05/25 History gram oral powder packet (Lokelma) alprazolam 0.5 mg tablet 0.5 mg PO DAILY PRN anxiety attack 10/30/24 01/22/25 10/30/24 09:00 History alprazolam 2 mg tablet 2 mg PO BID 10/30/24 01/22/25 01/06/25 History insulin lispro 100 unit/mL See Protocol subcut TIDAC PRN 10/30/24 01/22/25 10/30/24 09:00 History subcutaneous pen (Humalog KwikPen Blood Glucose (U-100) Insulin) vitamin D3 25 mcg (1,000 unit)-vit 1 tab PO SUTUTHSA@0900 11/02/24 01/22/25 01/05/25 History K2 90 mcg disintegrating tablet losartan 100 mg tablet 100 mg PO DAILY 01/09/25 01/22/25 01/06/25 History sevelamer carbonate 800 mg tablet 1,600 mg PO TIDWM 01/09/25 01/22/25 01/06/25 History albuterol sulfate 2.5 mg/3 mL 2.5 mg inhalation Q6H PRN Wheezing 01/18/25 01/22/25 Unknown History (0.083 %) solution for nebulization albuterol sulfate 90 mcg/actuation 2 puff inhalation Q6H PRN 01/18/25 01/22/25 Unknown History aerosol inhaler (Ventolin HFA) Shortness Of Breath Or Wheezing calcium carbonate (Tums) 200 mg PO TID PRN UPSET STOMACH 01/18/25 01/22/25 Unknown History cholecalciferol (vitamin D3) 125 125 mcg PO DAILY 01/18/25 01/22/25 Unknown History mcg (5,000 unit) tablet (Vitamin D3) insulin glargine 100 unit/mL 10 unit subcut BEDTIME 01/18/25 01/22/25 Unknown History subcutaneous solution (Lantus U-100 Insulin) melatonin 5 mg tablet 5 mg PO BEDTIME PRN Insomnia 01/18/25 01/22/25 Unknown History quetiapine 25 mg tablet (Seroquel) 25 mg PO BID PRN Agitation 01/18/25 01/22/25 Unknown History sevelamer carbonate 800 mg tablet 800 mg PO DAILY PRN SNACKS 01/18/25 01/22/25 Unknown History vitamin B complex and vitamin C 1 cap PO DAILY 01/18/25 01/22/25 Unknown History no.20-folic acid 1 mg capsule Physical Exam 2 Vital Signs: Vital Signs: Last Vital Signs Temp 98.2 F 01/23/25 04:00 Pulse 57 01/23/25 04:00 Resp 12 01/23/25 04:00 BP 139/53 L 01/23/25 04:00 Pulse Ox 96 01/23/25 04:00 O2 Del Method Room Air 01/23/25 04:00 BMI result Body Mass Index 27.6 EXAM: GENERAL: The patient is well developed and nontoxic. VITAL SIGNS:see workflow HEENT: Nonicteric sclerae, PERRLA, EOMI. Oropharynx clear. Moist mucous membranes. Conjunctivae appear well perfused. No thyroid mass. CHEST: Chest wall is nontender. HEART: Regular rate and rhythm without murmurs. LUNGS: Clear to auscultation bilaterally. ABDOMEN: Soft, positive bowel sounds, nontender, no organomegaly.no flank tenderness SKIN: No rash, no excessive bruising, petechiae, or purpura. NEUROLOGIC: Cranial nerves II-XII intact without motor/sensory deficit. Psych: normal affect Results Labs 01/23/25 04:54 01/23/25 04:54 Labs: Short CBC 01/22/25 01/23/25 Range/Units 14:23 04:54 WBC 14.7 H 9.9 (4.8-10.8) X10*3/uL Hgb 8.3 L D 8.5 L (14.0-18.0) g/dl Hct 23.1 L D 24.3 L (42.0-52.0) % Plt Count 239 246 (160-400) X10*3/uL BMP 01/22/25 01/23/25 14:23 04:54 Sodium 132 L 128 L Potassium 4.3 4.5 Chloride 92 L 93 L Carbon Dioxide 26 23 BUN 81 H 82 H Creatinine 10.20 H* 10.95 H* Calcium 7.6 L 7.3 L Liver Function 01/22/25 Range/Units 14:23 Total Bilirubin 0.4 (0.0-1.0) mg/dL Direct Bilirubin 0.1 (0.0-0.5) mg/dL AST 20 (5-37) U/L ALT 14 (0-40) U/L Alkaline Phosphatase 52 (39-117) U/L Albumin 3.1 L (3.5-5.0) g/dL Assessment and Plan (1) Acute on chronic anemia: Status: Acute Plan 1/ Acute on chronic anemia, possibly multifactorial from CKD, recent admission, blood draws, no overt GIB with melena or rectal bleeding PLAN: 1/ cont with PPI 2/ egd and colo tomorrow for further assessment Procedures Date of Service Date of Service: 01/23/25
[2025-01-23 07:09] VITALS: BP 148/69; PULSE 62; RESP 16; TEMP 36.8; O2SAT 98
[2025-01-23] MEDS: Sevelamer Carbonate Tablet 800 MG TABLET 1600 MG PO ×3 (07:10→17:36)
[2025-01-23] MEDS: Amphetamine Mixed Salts 20 MG TABLET PO ×3 (07:10→17:36)
[2025-01-23 07:12] LABS: Glucose, Whole Blood 77 mg/dL (60-115)
--- NOTE | 2025-01-23 07:48 | PC.NURSE ---
this RN resumed care of pt at this time. a&ox4. answering questions/following commands appropriately. vss and up to date. nsr on the monitor and storage bin tender. repeat POC obtained displaying 77mg/dL. admitted provider notified/aware that POC seems to be decreasing and pt does not have continuous IVF at this time. no new orders noted. pt otherwise has no complaints. denies any abd pain/nausea/episodes of vomiting/diarrhea. pt aware urine specimen is still needed at this time - pt reports minimal urine output baseline d/t hx kidney disease. pt remains NPO d/t possible EGD. lights dimmed to promote comfort. pending bed assignment. plan of care ongoing. call latham placed within reach.
[2025-01-23 08:27] LABS: Glucose, Whole Blood 75 mg/dL (60-115)
--- NOTE | 2025-01-23 08:30 | PC.NURSE ---
repeat POC obtained displaying 75mg/dL. will reassess x 1 hr.
--- NOTE | 2025-01-23 08:59 | PC.NURSE ---
gastroenterology consult being completed at this time.
[2025-01-23] MEDS: atenoloL 100 MG TABLET PO (09:02)
[2025-01-23] MEDS: Losartan Potassium 50 MG TABLET 100 MG PO (09:02)
[2025-01-23] MEDS: ALPRAZolam 0.5 MG TABLET 2 MG PO ×2 (09:02→21:24)
[2025-01-23] MEDS: Atorvastatin Calcium 40 MG TABLET PO (09:03)
[2025-01-23] MEDS: Multivitamin TABLET 1 TAB PO (09:03)
[2025-01-23] MEDS: amLODIPine Besylate 5 MG TABLET PO ×2 (09:03→21:24)
[2025-01-23] MEDS: Cholecalciferol (Vitamin D3) 25 MCG TABLET 125 MCG PO (09:03)
--- NOTE | 2025-01-23 09:13 | PC.NURSE ---
pt medicated per provider order. pt still has no complaints at this time. pending bed assignment. plan of care ongoing.
--- NOTE | 2025-01-23 10:23 | PC.NURSE ---
pt noted to have been found sitting on the edge of the bed w/ his IV access ripped out. pt verbalizing he was told that he was being discharged. per admitting provider, this is not the case. pt educated on importance of admission d/t current status. pt still requesting to leave AMA at this time. pt and now speaking w/ admitting provider in regards to plan of care. plan of care ongoing.
--- NOTE | 2025-01-23 10:50 | P.CONNP_ITS ---
History of Present Illness Reason for Consult Consult date: 01/23/25 Chief Complaint Chief complaint: Acute anemia, genearlized weakness History of Present Illness Narrative: 70-year-old male with ESRD on HD M// who presented to the ER with?generalized weakness and unable to ambulate at home. Pt was just discharged from the hospital 2 days ago after presenting on 01/19 with acute encephalopathy and gait abnormality. Pt had no obvious infectious source and pt's mentation seen back to baseline during hospital stay. Patient's gait abnormality has been ongoing for months. Has had extensive workup with Neurology at [facility] as well as seen by Neurology here on previous admission. MRI on 01/19 initially concerning for occlusive thrombus, but subsequent MR venogram was normal and showed no main cerebral venous sinus thrombosis. MRI also showed global cerebral atrophy questionable normal pressure hydrocephalus, which Neurology recommended for outpatient follow-up. Pt reports initially felt fine once he got home, but then developed central abdominal pain a few hours later. Denies any nausea or vomiting without any diarrhea, hematochezia or melena. He has a walker and cane at home, but tries not to use them so as to get around on his own and strength in his legs. However, pt found that his legs were too weak to support him and has only been able to take a few steps while at home. Denies fall, chest pain/pressure, palpitations, shortness or breath or difficulty breathing, fever, chills or cough. In the ED pt had BP of 133/56, vitals otherwise stable and WNL. Labs were significant for leukocytosis 14.4, H&H 8.3/23.1 (decreased from 10.9/31.6 two days prior on 01/20/2025), sodium 132, BUN 81, and creatinine 10.20. Stool tested positive for occult blood. Pt continues to test positive for influenza type A. CXR showed no acute findings. EKG demonstrated normal sinus rhythm without evidence of significant ischemic changes, similar to prior. Pt was treated with Protonix and Fleet enema. Pt was admitted to the hospital for treatment and further evaluation of acute anemia and generalized weakness concerning for possible GI bleed. Nephrology has been consulted to assist in his clinical care during his current hospital stay Review of Systems Review of Systems Yes all other systems are reviewed and are negative PMFSH Past Medical History Medical History ESRD needing dialysis End stage kidney disease Secondary hyperparathyroidism (of renal origin) Anemia in chronic kidney disease DONIS (acute kidney injury) End stage renal disease on dialysis Diabetes Kidney failure HTN (hypertension) Social History Social History Household Members: Spouse Housing: House Are you a primary respiratory care program director to a significant other at home: No Do you presently have visiting nurse or other home services: No Alcohol intake: never Comment: Pt turning off own bed alarm 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 provide with re- educa Patient Tobacco Use Status: Never used Tobacco Cigarette Packs Per Day: 0 Cigarettes Per Day: 0.0 Years Smoked: NA e-Cigarette/Vaping Use: Never Used Second Hand Smoke Exposure: No Advance Directives: Yes Advance Directives on File: Yes Advance Directives Date on File: 09/07/23 Do you have a plan to hurt others: No Plan Nutrition Risks: No Nutritional Risk service: No Meds Allergies Allergy/AdvReac Type Severity Reaction Status Date / Time Penicillins [PENICILLINS] Allergy Unknown RASH Verified 01/22/25 12:27 tramadol [From ULTRAM] Allergy Unknown RASH Verified 01/22/25 12:27 trazodone [TRAZODONE] Allergy Unknown PRIAPISM Verified 01/22/25 12:27 risperidone [RISPERIDONE] AdvReac Severe dizzy, EPS Verified 01/22/25 12:27 Active Medications: Current Medications Acetaminophen (Acetaminophen 325 Mg Tablet) 650 mg PO Q6H PRN PRN Reason: Pain, Mild 1-3,fever,headache Albuterol Sulfate (Albuterol Sulfate 90 Mcg 8 Gm Inhaler) 2 puff INHALE Q6H PRN PRN Reason: Shortness Of Breath Or Wheezing Albuterol Sulfate (Albuterol Sulfate (0.083%) 2.5 Mg/3 Ml Vial.Neb) 2.5 mg INHALE Q6H PRN PRN Reason: Wheezing Alprazolam (Alprazolam 0.5 Mg Tablet) 0.5 mg PO DAILY PRN PRN Reason: anxiety attack Alprazolam (Alprazolam 0.5 Mg Tablet) 2 mg PO BID FRANCINE Last Admin: 01/23/25 09:02 Dose: 2 mg Amlodipine Besylate (Amlodipine Besylate 5 Mg Tablet) 5 mg PO BID [facility]; Protocol Last Admin: 01/23/25 09:03 Dose: 5 mg Amphetamine/Dextroamphetamine (Amphetamine Mixed Salts 20 Mg Tablet) 20 mg PO TID@0800,1400,1800 [facility] Last Admin: 01/23/25 07:10 Dose: 20 mg Atenolol (Atenolol 100 Mg Tablet) 100 mg PO DAILY [facility]; Protocol Last Admin: 01/23/25 09:02 Dose: 100 mg Atorvastatin Calcium (Atorvastatin Calcium 40 Mg Tablet) 40 mg PO DAILY [facility] Last Admin: 01/23/25 09:03 Dose: 40 mg Calcium Carbonate (Calcium Carbonate 750 Mg Tab.Chew) 750 mg PO Q4H PRN PRN Reason: Heartburn Dextrose (Dextrose 50 % 25 Gm/50 Ml Syringe) 25 gm IVPUSH Q15M PRN PRN Reason: per Hypoglycemia Standing Ord. Hydromorphone HCl (Hydromorphone Hcl 2 Mg Tablet) 4 mg PO Q3H PRN PRN Reason: Severe Pain (Scale Score 7-10) Last Admin: 01/23/25 03:08 Dose: 4 mg Levothyroxine Sodium 112 mcg/ (Levothyroxine Sodium 25 mcg) 137 mcg PO DAILY@0600 [facility] Last Admin: 01/23/25 06:14 Dose: 137 mcg Lidocaine HCl (Lidocaine Hcl 1 % Mpf 2 Ml Vial) 0.5 ml SUBCUT MOWEFR@1645 [facility] Losartan Potassium (Losartan Potassium 50 Mg Tablet) 100 mg PO DAILY [facility]; Protocol Last Admin: 01/23/25 09:02 Dose: 100 mg Magnesium Hydroxide (Milk Of Magnesia 30 Ml Oral.Susp) 30 ml PO DAILY PRN PRN Reason: Constipation Melatonin (Melatonin 3 Mg Tablet) 6 mg PO BEDTIME PRN PRN Reason: Insomnia Multivitamins/Vitamin C (Multivitamin Tablet) 1 tab PO DAILY [facility] Last Admin: 01/23/25 09:03 Dose: 1 tab Ondansetron HCl (Ondansetron Hcl 4 Mg/2 Ml Vial) 4 mg IVPUSH Q8H PRN PRN Reason: Nausea and Vomiting Pantoprazole Sodium (Pantoprazole Sodium 40 Mg/10 Ml Vial) 40 mg IVPUSH BID@0630,1630 [facility] Last Admin: 01/23/25 06:14 Dose: 40 mg Quetiapine Fumarate (Quetiapine Fumarate 25 Mg Tablet) 25 mg PO BID PRN PRN Reason: Agitation Sevelamer Carbonate (Sevelamer Carbonate Tablet 800 Mg Tablet) 1,600 mg PO TIDWM [facility] Last Admin: 01/23/25 07:10 Dose: 1,600 mg Sevelamer Carbonate (Sevelamer Carbonate Tablet 800 Mg Tablet) 800 mg PO DAILY PRN PRN Reason: SNACKS Sodium Chloride (0.9 % Sodium Chloride Flush 3 Ml Syringe) 3 ml IVFLUSH QSHIFT [facility] Last Admin: 01/23/25 07:09 Dose: 3 ml Sodium Zirconium Cyclosilicate (Sodium Zirconium Cyclosilicate 10 Gm Powd.Pack) 10 gm PO SUTUTHSA@0900 [facility] Vitamin D (Cholecalciferol (Vitamin D3) 25 Mcg Tablet) 125 mcg PO DAILY [facility] Last Admin: 01/23/25 09:03 Dose: 125 mcg Home Medications ?Medication ?Instructions ?Recorded ?Confirmed ?Last Taken ?Type atenolol 100 mg tablet 1 tab PO DAILY 07/11/21 01/22/25 01/06/25 History blood sugar diagnostic (FreeStyle 07/11/21 10/30/24 10/30/24 09:00 History Lite Strips) dextroamphetamine-amphetamine 20 1 tab PO TID@0800,1400,1800 07/11/21 01/22/25 01/06/25 History mg tablet levothyroxine 137 mcg tablet 1 tab PO DAILY@0600 07/11/21 01/22/25 01/06/25 History pen needle, diabetic 31 gauge x 07/11/21 10/30/24 10/30/24 09:00 History 5/16 (BD Ultra-Fine Short Pen Needle) amlodipine 5 mg tablet 5 mg PO BID 09/03/23 01/22/25 01/06/25 History atorvastatin 40 mg tablet 40 mg PO DAILY 02/22/24 01/22/25 01/06/25 History sodium zirconium cyclosilicate 10 10 g PO SUTUTHSA@0900 06/19/24 01/22/25 01/05/25 History gram oral powder packet (Lokelma) alprazolam 0.5 mg tablet 0.5 mg PO DAILY PRN anxiety attack 10/30/24 01/22/25 10/30/24 09:00 History alprazolam 2 mg tablet 2 mg PO BID 10/30/24 01/22/25 01/06/25 History insulin lispro 100 unit/mL See Protocol subcut TIDAC PRN 10/30/24 01/22/25 10/30/24 09:00 History subcutaneous pen (Humalog KwikPen Blood Glucose (U-100) Insulin) vitamin D3 25 mcg (1,000 unit)-vit 1 tab PO SUTUTHSA@0900 11/02/24 01/22/25 01/05/25 History K2 90 mcg disintegrating tablet losartan 100 mg tablet 100 mg PO DAILY 01/09/25 01/22/25 01/06/25 History sevelamer carbonate 800 mg tablet 1,600 mg PO TIDWM 01/09/25 01/22/25 01/06/25 History albuterol sulfate 2.5 mg/3 mL 2.5 mg inhalation Q6H PRN Wheezing 01/18/25 01/22/25 Unknown History (0.083 %) solution for nebulization albuterol sulfate 90 mcg/actuation 2 puff inhalation Q6H PRN 01/18/25 01/22/25 Unknown History aerosol inhaler (Ventolin HFA) Shortness Of Breath Or Wheezing calcium carbonate (Tums) 200 mg PO TID PRN UPSET STOMACH 01/18/25 01/22/25 Unknown History cholecalciferol (vitamin D3) 125 125 mcg PO DAILY 01/18/25 01/22/25 Unknown History mcg (5,000 unit) tablet (Vitamin D3) insulin glargine 100 unit/mL 10 unit subcut BEDTIME 01/18/25 01/22/25 Unknown History subcutaneous solution (Lantus U-100 Insulin) melatonin 5 mg tablet 5 mg PO BEDTIME PRN Insomnia 01/18/25 01/22/25 Unknown History quetiapine 25 mg tablet (Seroquel) 25 mg PO BID PRN Agitation 01/18/25 01/22/25 Unknown History sevelamer carbonate 800 mg tablet 800 mg PO DAILY PRN SNACKS 01/18/25 01/22/25 Unknown History vitamin B complex and vitamin C 1 cap PO DAILY 01/18/25 01/22/25 Unknown History no.20-folic acid 1 mg capsule Physical Exam Vital Signs: Last Vital Signs Temp 98.2 F 01/23/25 07:09 Pulse 62 01/23/25 07:09 Resp 16 01/23/25 07:09 BP 148/69 H 01/23/25 07:09 Pulse Ox 98 01/23/25 07:09 O2 Del Method Room Air 01/23/25 07:09 BMI result Body Mass Index 27.6 Const General: no acute distress Eyes EOM: EOMs intact bilaterally Neck Neck: Yes supple Resp Auscultation: diminished lung sounds Cardio Rate: regular rate GI Palpation (GI): Soft to palpation Neuro General: moves all extremities Results Lab Results 01/23/25 04:54 01/23/25 04:54 Lab results: Chemistry 01/22/25 01/23/25 14:23 04:54 Sodium 132 L 128 L Potassium 4.3 4.5 Carbon Dioxide 26 23 BUN 81 H 82 H Creatinine 10.20 H* 10.95 H* Calcium 7.6 L 7.3 L Hematology 01/22/25 01/23/25 14:23 04:54 WBC 14.7 H 9.9 Hgb 8.3 L D 8.5 L Plt Count 239 246 Assessment and Plan (1) ESRD needing dialysis: Status: Acute Plan Shall put back him back on dialysis today & would be on MWF schedule. He should be on a low-sodium, low phosphorus diet with a fluid restriction. He should take phosphorus binders 3 times a day with meals. Procrit [id number] U thrice a week. GI consult and F/U. C/W rest of current management. We shall closely follow-up him up during his current hospital stay for continued care. Procedures Date of Service Date of Service: 01/23/25
[2025-01-23 11:21] LABS: Glucose, Whole Blood 78 mg/dL (60-115)
--- NOTE | 2025-01-23 11:35 | PC.NURSE ---
new 22gIV placed in right hand - patent/intact. pt waiting to go to dialysis at this time.
[2025-01-23 12:02] VITALS: BP 130/63; PULSE 57; RESP 16; TEMP 36.6; O2SAT 98
--- NOTE | 2025-01-23 12:12 | P.PNIM_ITS ---
Subjective Subjective Date of Service: 01/23/25 Review of Systems Follow up GI bleed no pain or discomfort Physical Exam 2 Vital Signs: Vital Signs: Last Vital Signs Temp 98 F 01/23/25 12:02 Pulse 57 01/23/25 12:02 Resp 16 01/23/25 12:02 BP 130/63 01/23/25 12:02 Pulse Ox 98 01/23/25 12:02 O2 Del Method Room Air 01/23/25 12:02 BMI result Body Mass Index 27.6 Appearing in no acute distress lung sounds are clear to auscultation heart regular rate rhythm, clear S1, S2 positive bowel sounds, abdomen is soft, nontender neuro patient is alert x3, no focal deficits Objective Data Active Medications Acetaminophen (Acetaminophen 325 Mg Tablet) 650 mg PO Q6H PRN PRN Reason: Pain, Mild 1-3,fever,headache Albuterol Sulfate (Albuterol Sulfate 90 Mcg 8 Gm Inhaler) 2 puff INHALE Q6H PRN PRN Reason: Shortness Of Breath Or Wheezing Albuterol Sulfate (Albuterol Sulfate (0.083%) 2.5 Mg/3 Ml Vial.Neb) 2.5 mg INHALE Q6H PRN PRN Reason: Wheezing Alprazolam (Alprazolam 0.5 Mg Tablet) 0.5 mg PO DAILY PRN PRN Reason: anxiety attack Alprazolam (Alprazolam 0.5 Mg Tablet) 2 mg PO BID [facility] Last Admin: 01/23/25 09:02 Dose: 2 mg Documented By: KORIN Amlodipine Besylate (Amlodipine Besylate 5 Mg Tablet) 5 mg PO BID [facility]; Protocol Last Admin: 01/23/25 09:03 Dose: 5 mg Documented By: KORIN Amphetamine/Dextroamphetamine (Amphetamine Mixed Salts 20 Mg Tablet) 20 mg PO TID@0800,1400,1800 [facility] Last Admin: 01/23/25 07:10 Dose: 20 mg Documented By: KORIN Atenolol (Atenolol 100 Mg Tablet) 100 mg PO DAILY [facility]; Protocol Last Admin: 01/23/25 09:02 Dose: 100 mg Documented By: KORIN Atorvastatin Calcium (Atorvastatin Calcium 40 Mg Tablet) 40 mg PO DAILY [facility] Last Admin: 01/23/25 09:03 Dose: 40 mg Documented By: KORIN Calcium Carbonate (Calcium Carbonate 750 Mg Tab.Chew) 750 mg PO Q4H PRN PRN Reason: Heartburn Dextrose (Dextrose 50 % 25 Gm/50 Ml Syringe) 25 gm IVPUSH Q15M PRN PRN Reason: per Hypoglycemia Standing Ord. Hydromorphone HCl (Hydromorphone Hcl 2 Mg Tablet) 4 mg PO Q3H PRN PRN Reason: Severe Pain (Scale Score 7-10) Last Admin: 01/23/25 03:08 Dose: 4 mg Documented By: REBECCA Levothyroxine Sodium 112 mcg/ (Levothyroxine Sodium 25 mcg) 137 mcg PO DAILY@0600 [facility] Last Admin: 01/23/25 06:14 Dose: 137 mcg Documented By: REBECCA Lidocaine HCl (Lidocaine Hcl 1 % Mpf 2 Ml Vial) 0.5 ml SUBCUT MOWEFR@1645 [facility] Losartan Potassium (Losartan Potassium 50 Mg Tablet) 100 mg PO DAILY [facility]; Protocol Last Admin: 01/23/25 09:02 Dose: 100 mg Documented By: KORIN Magnesium Hydroxide (Milk Of Magnesia 30 Ml Oral.Susp) 30 ml PO DAILY PRN PRN Reason: Constipation Melatonin (Melatonin 3 Mg Tablet) 6 mg PO BEDTIME PRN PRN Reason: Insomnia Multivitamins/Vitamin C (Multivitamin Tablet) 1 tab PO DAILY [facility] Last Admin: 01/23/25 09:03 Dose: 1 tab Documented By: KORIN Ondansetron HCl (Ondansetron Hcl 4 Mg/2 Ml Vial) 4 mg IVPUSH Q8H PRN PRN Reason: Nausea and Vomiting Pantoprazole Sodium (Pantoprazole Sodium 40 Mg/10 Ml Vial) 40 mg IVPUSH BID@0630,1630 [facility] Last Admin: 01/23/25 06:14 Dose: 40 mg Documented By: REBECCA Polyethylene Glycol/Electrolytes (Peg 3350/Na Sulf,Bicarb,Cl/Kcl 4,000 Ml Soln.Recon) 240 ml PO Q10M [facility] Stop: 01/23/25 16:41 Quetiapine Fumarate (Quetiapine Fumarate 25 Mg Tablet) 25 mg PO BID PRN PRN Reason: Agitation Sevelamer Carbonate (Sevelamer Carbonate Tablet 800 Mg Tablet) 1,600 mg PO TIDWM [facility] Last Admin: 04/07/25 07:10 Dose: 1,600 mg Documented By: KORIN Sevelamer Carbonate (Sevelamer Carbonate Tablet 800 Mg Tablet) 800 mg PO DAILY PRN PRN Reason: SNACKS Sodium Chloride (0.9 % Sodium Chloride Flush 3 Ml Syringe) 3 ml IVFLUSH QSHIFT [facility] Last Admin: 01/23/25 07:09 Dose: 3 ml Documented By: KORIN Sodium Zirconium Cyclosilicate (Sodium Zirconium Cyclosilicate 10 Gm Powd.Pack) 10 gm PO SUTUTHSA@0900 [facility] Vitamin D (Cholecalciferol (Vitamin D3) 25 Mcg Tablet) 125 mcg PO DAILY [facility] Last Admin: 01/23/25 09:03 Dose: 125 mcg Documented By: KORIN Labs 01/23/25 04:54 01/23/25 04:54 Labs: Laboratory Results - last 24 hr 01/22/25 01/22/25 01/22/25 14:23 15:13 15:22 MCV 85.2 MCH 30.6 MCHC 35.9 RDW 14.6 Plt Count 239 MPV 9.7 Immature Gran % (Auto) 0.8 H Neut % (Auto) 77.5 H Lymph % (Auto) 11.6 L [place] % (Auto) 9.0 Eos % (Auto) 1.0 Baso % (Auto) 0.1 Lymph # (Auto) 1.7 [place] # (Auto) 1.3 H Eos # (Auto) 0.1 Baso # (Auto) 0.0 Abs Immat Gran (auto) 0.12 H Absolute Neuts (auto) 11.4 H Absolute Nucleated RBC 0.000 Nucleated RBC % (auto) 0.0 Anion Gap 18 Estim Creat Clear Calc 6.5 Estimated GFR 5 POC Glucose Random Glucose 169 H Calcium 7.6 L Magnesium 2.3 Total Bilirubin 0.4 Direct Bilirubin 0.1 AST 20 ALT 14 Alkaline Phosphatase 52 Total Protein 5.2 L Albumin 3.1 L Stool Occult Blood POSITIVE Influenza Type A (PCR) POSITIVE A Influenza Type B (PCR) NEGATIVE RSV RNA Qual (PCR) NEGATIVE SARS-CoV-2 RNA (RT-PCR) NEGATIVE 01/23/25 01/23/25 01/23/25 04:54 07:09 08:24 MCV 86.8 MCH 30.4 MCHC 35.0 RDW 14.7 Plt Count 246 MPV 9.9 Immature Gran % (Auto) Neut % (Auto) Lymph % (Auto) [place] % (Auto) Eos % (Auto) Baso % (Auto) Lymph # (Auto) [place] # (Auto) Eos # (Auto) Baso # (Auto) Abs Immat Gran (auto) Absolute Neuts (auto) Absolute Nucleated RBC 0.000 Nucleated RBC % (auto) 0.0 Anion Gap 17 Estim Creat Clear Calc 6.0 Estimated GFR 5 POC Glucose 77 75 Random Glucose 85 Calcium 7.3 L Magnesium Total Bilirubin Direct Bilirubin AST ALT Alkaline Phosphatase Total Protein Albumin Stool Occult Blood Influenza Type A (PCR) Influenza Type B (PCR) RSV RNA Qual (PCR) SARS-CoV-2 RNA (RT-PCR) 01/23/25 11:17 MCV MCH MCHC RDW Plt Count MPV Immature Gran % (Auto) Neut % (Auto) Lymph % (Auto) [place] % (Auto) Eos % (Auto) Baso % (Auto) Lymph # (Auto) [place] # (Auto) Eos # (Auto) Baso # (Auto) Abs Immat Gran (auto) Absolute Neuts (auto) Absolute Nucleated RBC Nucleated RBC % (auto) Anion Gap Estim Creat Clear Calc Estimated GFR POC Glucose 78 Random Glucose Calcium Magnesium Total Bilirubin Direct Bilirubin AST ALT Alkaline Phosphatase Total Protein Albumin Stool Occult Blood Influenza Type A (PCR) Influenza Type B (PCR) RSV RNA Qual (PCR) SARS-CoV-2 RNA (RT-PCR) Assessment and Plan (1) ESRD needing dialysis: Status: Acute Plan 70-year-old male with a PMH significant for?ESRD on HD M/W/F, HTN, insulin- dependent type 2 diabetes, hypothyroidism, HLD, normocytic anemia, and mood disorder who presents to the ED with?generalized weakness and unable to ambulate at home. Pt will be admitted to the hospital for treatment and further evaluation of acute anemia and generalized weakness concerning for possible GI bleed. Acute on chronic anemia Pt with generalized weakness, substernal/epigastric abdominal pain x2 days H&H H 8.3/23.1, decreased from 10.9/31.6 2 days prior, stool positive for occult blood Concerning for GIB Pt denies hematochezia or melena Will treat with Protonix IV b.i.d. Clear liquid diet for now, NPO after midnight for possible EGD GI consult> plan for EGD and colo tomorrow, clears today and golytely prep Follow CBC Leukocytosis WBCs 14.7 at time of presentation Pt without symptoms concerning for acute infection Likely reactionary No indication for antibiotics at this time Follow CBC ESRD on HD M/W/F Nephrology consult>dialysis MWF Continue George Waltersvela Follow lytes Monitor on telemetry Insulin-dependent type 2 diabetes sliding scale insulin Continue Lantus Diabetic diet HTN Continue amlodipine, atenolol, and losartan HLD Continue statin Full Code Attending:?Dr. Carpenter DVT Prophylaxis: Pneumatic compression due to concern for GIB Quality Stroke Does the patient have a stroke diagnosis?: No VTE Prior VTE?: No VTE Risk Level:: Medical - moderate - high VTE Device Contraindication: N/A - Device Ordered VTE Drug Contraindication: Treatment Not Indicated
--- NOTE | 2025-01-23 13:56 | PC.NURSE ---
pt verbalizing increase in abd pain - requesting prn medication. pt medicated per provider order. effectiveness pending. pt being transported to dialysis at this time - will resume care of pt when he returns.
--- NOTE | 2025-01-23 16:21 | MHC.CM.PN ---
CM ATTEMPTED TO MEET WITH PT, WHO WAS NOT IN HIS ROOM CM ATTEMPTED TO CONTACT PTS /HCP, [facility] [phone], NO ANSWER CM WILL REVISIT
--- NOTE | 2025-01-23 16:29 | MHC.CM.PN ---
PT REPORTS HE LIVES AT HOME WITH HIS WHO ASSISTS WITH CARE PRN HE HAS NO HOME SERVICES HE HAS A CANE, WALKER AND W/C, HE USES EACH PRN HCP ON FILE PCP: RACHELLE ALLEN IMM DELIVERED DCP: HOME VIA TRANSPORT
[2025-01-23] MEDS: PEG 3350/Na Sulf,Bicarb,Cl/KCL 4,000 ML SOLN.RECON 4000 ML PO (18:32)
[2025-01-23 18:52] VITALS: BP 157/69; PULSE 65; RESP 18; TEMP 36.5; O2SAT 96
--- NOTE | 2025-01-23 21:42 | PC.NURSE ---
Addendum entered by Jeannie Britt RN 01/23/25 22:56: Pt did start drinking more of prep after discussion, increased liquid stools. Cont to encourage pt to finish prep Original Note: Pt didnt start colonoscopy prep until 1829 as was previously in dialysis. at 2129 pt approx 1/3 done of prep - still having formed brown BMs. Educated pt on drinking one cup every 10 min. Pt stating Im trying, I know Educated pt on plan for colonoscopy tomorrow and can only do if bowels running clear or may need sto be cancelled. Pt appears unmotivated at this time. Cont to educate and encourage pt to finish prep.
[2025-01-23 23:24] VITALS: BP 143/65; PULSE 61; RESP 16; TEMP 36.2; O2SAT 99
[2025-01-24] VITALS (8 sets, daily range): BP systolic 134–174; BP diastolic 36–81; PULSE 61–73; RESP 16–19; TEMP 36.3–37.3; O2SAT 96–100
[2025-01-24] MEDS: 0.9 % Sodium Chloride Flush 3 ML SYRINGE IVFLUSH ×2 (00:32→23:37)
[2025-01-24 06:20] LABS: Hematocrit 25.5 % (42.0-52.0); Hemoglobin 8.7 g/dl (14.0-18.0); Mean Corpuscular HGB Conc 34.1 g/dl (31.0-36.0); Mean Corpuscular Hemoglobin 30.1 pg (27.0-33.0); Mean Corpuscular Volume 88.2 fL (80.0-98.0); Mean Platelet Volume 10.1 fL (9.4-12.4); Platelet Count 238 X10*3/uL (160-400); Red Blood Count 2.89 X10*6/uL (4.60-5.80); Red Cell Distribution Width 14.6 % (11.0-16.0); White Blood Count 8.6 X10*3/uL (4.8-10.8)
[2025-01-24 06:39] LABS: Anion Gap 18 (12-20); Blood Urea Nitrogen 41 mg/dL (9-16); Calcium 7.5 mg/dL (8.4-10.2); Carbon Dioxide 25 mmol/L (22-29); Chloride 95 mmol/L (96-108); Creatinine Clr Calc Pharmacy 8.8; Estimated Glomerular Filt Rate 7; Glucose Random 68 mg/dL (60-115); Potassium 4.4 mmol/L (3.3-5.1); Sodium 134 mmol/L (135-145)
[2025-01-24] MEDS: Levothyroxine Sodium 112 MCG, Levothyroxine Sodium 25 MCG 137 MCG PO (06:49)
[2025-01-24] MEDS: Pantoprazole Sodium 40 MG/10 ML VIAL IVPUSH ×2 (06:49→17:17)
--- NOTE | 2025-01-24 10:57 | P.PNIM_ITS ---
Subjective Subjective Date of Service: 01/24/25 Review of Systems Follow up GI bleed no pain or discomfort Physical Exam 2 Vital Signs: Vital Signs: Last Vital Signs Temp 98.1 F 01/24/25 04:00 Pulse 61 01/24/25 04:00 Resp 16 01/24/25 04:00 BP 174/81 H 01/24/25 04:00 Pulse Ox 96 01/24/25 04:00 O2 Del Method Room Air 01/24/25 04:00 BMI result Body Mass Index 27.6 Appearing in no acute distress lung sounds are clear to auscultation heart regular rate rhythm, clear S1, S2 positive bowel sounds, abdomen is soft, nontender neuro patient is alert, some confusion Objective Data Active Medications Acetaminophen (Acetaminophen 325 Mg Tablet) 650 mg PO Q6H PRN PRN Reason: Pain, Mild 1-3,fever,headache Albuterol Sulfate (Albuterol Sulfate 90 Mcg 8 Gm Inhaler) 2 puff INHALE Q6H PRN PRN Reason: Shortness Of Breath Or Wheezing Albuterol Sulfate (Albuterol Sulfate (0.083%) 2.5 Mg/3 Ml Vial.Neb) 2.5 mg INHALE Q6H PRN PRN Reason: Wheezing Alprazolam (Alprazolam 0.5 Mg Tablet) 0.5 mg PO DAILY PRN PRN Reason: anxiety attack Alprazolam (Alprazolam 0.5 Mg Tablet) 2 mg PO BID [facility] Last Admin: 01/24/25 08:19 Dose: Not Given Documented By: RADHA Non-Admin Reason: Patient Refused Amlodipine Besylate (Amlodipine Besylate 5 Mg Tablet) 5 mg PO BID [facility]; Protocol Last Admin: 01/24/25 08:19 Dose: Not Given Documented By: RADHA Non-Admin Reason: Patient Refused Amphetamine/Dextroamphetamine (Amphetamine Mixed Salts 20 Mg Tablet) 20 mg PO TID@0800,1400,1800 [facility] Last Admin: 01/24/25 08:19 Dose: Not Given Documented By: RADHA Non-Admin Reason: Patient Refused Atenolol (Atenolol 100 Mg Tablet) 100 mg PO DAILY [facility]; Protocol Last Admin: 01/24/25 08:19 Dose: Not Given Documented By: RADHA Non-Admin Reason: Patient Refused Atorvastatin Calcium (Atorvastatin Calcium 40 Mg Tablet) 40 mg PO DAILY [facility] Last Admin: 01/24/25 08:20 Dose: Not Given Documented By: RADHA Non-Admin Reason: Patient Refused Calcium Carbonate (Calcium Carbonate 750 Mg Tab.Chew) 750 mg PO Q4H PRN PRN Reason: Heartburn Dextrose (Dextrose 50 % 25 Gm/50 Ml Syringe) 25 gm IVPUSH Q15M PRN PRN Reason: per Hypoglycemia Standing Ord. Hydromorphone HCl (Hydromorphone Hcl 2 Mg Tablet) 4 mg PO Q3H PRN PRN Reason: Severe Pain (Scale Score 7-10) Last Admin: 01/23/25 17:36 Dose: 4 mg Documented By: TISHA Levothyroxine Sodium 112 mcg/ (Levothyroxine Sodium 25 mcg) 137 mcg PO DAILY@0600 [facility] Last Admin: 01/24/25 06:49 Dose: 137 mcg Documented By: CIERA Lidocaine HCl (Lidocaine Hcl 1 % Mpf 2 Ml Vial) 0.5 ml SUBCUT MOWEFR@1645 [facility] Last Admin: 01/23/25 17:37 Dose: Not Given Documented By: TISHA Non-Admin Reason: not used per low heel builder Losartan Potassium (Losartan Potassium 50 Mg Tablet) 100 mg PO DAILY [facility]; Protocol Last Admin: 01/24/25 08:20 Dose: Not Given Documented By: RADHA Non-Admin Reason: Patient Refused Magnesium Hydroxide (Milk Of Magnesia 30 Ml Oral.Susp) 30 ml PO DAILY PRN PRN Reason: Constipation Melatonin (Melatonin 3 Mg Tablet) 6 mg PO BEDTIME PRN PRN Reason: Insomnia Multivitamins/Vitamin C (Multivitamin Tablet) 1 tab PO DAILY [facility] Last Admin: 01/24/25 08:20 Dose: Not Given Documented By: RADHA Non-Admin Reason: Patient Refused Ondansetron HCl (Ondansetron Hcl 4 Mg/2 Ml Vial) 4 mg IVPUSH Q8H PRN PRN Reason: Nausea and Vomiting Pantoprazole Sodium (Pantoprazole Sodium 40 Mg/10 Ml Vial) 40 mg IVPUSH BID@0630,1630 [facility] Last Admin: 01/24/25 06:49 Dose: 40 mg Documented By: CIERA Quetiapine Fumarate (Quetiapine Fumarate 25 Mg Tablet) 25 mg PO BID PRN PRN Reason: Agitation Sevelamer Carbonate (Sevelamer Carbonate Tablet 800 Mg Tablet) 1,600 mg PO TIDWM [facility] Last Admin: 01/24/25 08:19 Dose: Not Given Documented By: RADHA Non-Admin Reason: Patient Refused Sevelamer Carbonate (Sevelamer Carbonate Tablet 800 Mg Tablet) 800 mg PO DAILY PRN PRN Reason: SNACKS Sodium Chloride (0.9 % Sodium Chloride Flush 3 Ml Syringe) 3 ml IVFLUSH QSHIFT [facility] Last Admin: 01/24/25 08:20 Dose: Not Given Documented By: RADHA Non-Admin Reason: Patient Refused Sodium Zirconium Cyclosilicate (Sodium Zirconium Cyclosilicate 10 Gm Powd.Pack) 10 gm PO SUTUTHSA@0900 [facility] Last Admin: 01/24/25 08:20 Dose: Not Given Documented By: RADHA Non-Admin Reason: Patient Refused Vitamin D (Cholecalciferol (Vitamin D3) 25 Mcg Tablet) 125 mcg PO DAILY [facility] Last Admin: 01/24/25 08:20 Dose: Not Given Documented By: RADHA Non-Admin Reason: Patient Refused Labs 01/24/25 05:26 01/24/25 05:26 Labs: Laboratory Results - last 24 hr 01/23/25 01/24/25 11:17 05:26 MCV 88.2 MCH 30.1 MCHC 34.1 RDW 14.6 Plt Count 238 MPV 10.1 Absolute Nucleated RBC 0.000 Nucleated RBC % (auto) 0.0 Anion Gap 18 Estim Creat Clear Calc 8.8 Estimated GFR 7 POC Glucose 78 Random Glucose 68 Calcium 7.5 L Assessment and Plan (1) ESRD needing dialysis: Status: Acute Plan 70-year-old male with a PMH significant for?ESRD on HD M/W/F, HTN, insulin- dependent type 2 diabetes, hypothyroidism, HLD, normocytic anemia, and mood disorder who presents to the ED with?generalized weakness and unable to ambulate at home. Pt will be admitted to the hospital for treatment and further evaluation of acute anemia and generalized weakness concerning for possible GI bleed. Acute encephalopathy likely has early dementia Haldol for agitation monitor mental status Acute on chronic anemia Pt with generalized weakness, substernal/epigastric abdominal pain x2 days H&H H 8.3/23.1, decreased from 10.9/31.6 2 days prior, stool positive for occult blood Concerning for GIB Pt denies hematochezia or melena Protonix IV b.i.d. GI consult> plan for EGD and colo today Follow CBC Leukocytosis WBCs 14.7 at time of presentation Pt without symptoms concerning for acute infection Likely reactionary No indication for antibiotics at this time Follow CBC ESRD on HD M/W/F Nephrology consult>dialysis MWF Continue Jewels Walters Follow lytes Monitor on telemetry Insulin-dependent type 2 diabetes sliding scale insulin Continue Lantus Diabetic diet HTN Continue amlodipine, atenolol, and losartan HLD Continue statin Full Code Attending:?Dr. Carpenter DVT Prophylaxis: Pneumatic compression due to concern for GIB Quality Stroke Does the patient have a stroke diagnosis?: No VTE Prior VTE?: No VTE Risk Level:: Medical - moderate - high VTE Device Contraindication: N/A - Device Ordered VTE Drug Contraindication: Treatment Not Indicated
[2025-01-24] MEDS: HYDROmorphone HCl 2 MG TABLET 4 MG PO ×3 (12:17→21:31)
[2025-01-24] MEDS: HaloperidoL 1 MG TABLET PO (12:18)
--- NOTE | 2025-01-24 12:47 | P.CONAN_ITS ---
[facility] Active Problems Active Problems: All Active Problems Acute on chronic anemia (Acute) Acute anemia (Acute) Generalized weakness (Acute) Occult blood positive stool (Acute) Weakness (Acute) Anemia (Acute) Internal jugular vein thrombosis (Acute) Intermittent confusion (Acute) Abnormality of gait (Acute) Multifactorial gait disorder (Acute) ESRD needing dialysis (Acute) Influenza (Acute) Pneumonia (Acute) Past Medical History Medical History ESRD needing dialysis End stage kidney disease Secondary hyperparathyroidism (of renal origin) Anemia in chronic kidney disease DONIS (acute kidney injury) End stage renal disease on dialysis Diabetes Kidney failure HTN (hypertension) Family History Family history of problems with anesthesia: No Surgical History History of Problems with Anesthesia: No Social History Social History Household Members: Spouse Housing: House Are you a primary managed care analyst to a significant other at home: No Do you presently have visiting nurse or other home services: No Alcohol intake: never Comment: Pt turning off own bed alarm Kasie Pizarro NP aware provide with re- educa Patient Tobacco Use Status: Never used Tobacco Cigarette Packs Per Day: 0 Cigarettes Per Day: 0.0 Years Smoked: NA e-Cigarette/Vaping Use: Never Used Second Hand Smoke Exposure: No Advance Directives Date on File: 09/07/23 service: No Meds Allergies Allergy/AdvReac Type Severity Reaction Status Date / Time Penicillins [PENICILLINS] Allergy Unknown RASH Verified 01/22/25 12:27 tramadol [From ULTRAM] Allergy Unknown RASH Verified 01/22/25 12:27 trazodone [TRAZODONE] Allergy Unknown PRIAPISM Verified 01/22/25 12:27 risperidone [RISPERIDONE] AdvReac Severe dizzy, EPS Verified 01/22/25 12:27 Active Medications: Current Medications Acetaminophen (Acetaminophen 325 Mg Tablet) 650 mg PO Q6H PRN PRN Reason: Pain, Mild 1-3,fever,headache Albuterol Sulfate (Albuterol Sulfate 90 Mcg 8 Gm Inhaler) 2 puff INHALE Q6H PRN PRN Reason: Shortness Of Breath Or Wheezing Albuterol Sulfate (Albuterol Sulfate (0.083%) 2.5 Mg/3 Ml Vial.Neb) 2.5 mg INHALE Q6H PRN PRN Reason: Wheezing Alprazolam (Alprazolam 0.5 Mg Tablet) 0.5 mg PO DAILY PRN PRN Reason: anxiety attack Alprazolam (Alprazolam 0.5 Mg Tablet) 2 mg PO BID [facility] Last Admin: 01/24/25 08:19 Dose: Not Given Amlodipine Besylate (Amlodipine Besylate 5 Mg Tablet) 5 mg PO BID [facility]; Protocol Last Admin: 01/24/25 08:19 Dose: Not Given Amphetamine/Dextroamphetamine (Amphetamine Mixed Salts 20 Mg Tablet) 20 mg PO TID@0800,1400,1800 [facility] Last Admin: 01/24/25 08:19 Dose: Not Given Atenolol (Atenolol 100 Mg Tablet) 100 mg PO DAILY [facility]; Protocol Last Admin: 01/24/25 08:19 Dose: Not Given Atorvastatin Calcium (Atorvastatin Calcium 40 Mg Tablet) 40 mg PO DAILY [facility] Last Admin: 01/24/25 08:20 Dose: Not Given Calcium Carbonate (Calcium Carbonate 750 Mg Tab.Chew) 750 mg PO Q4H PRN PRN Reason: Heartburn Dextrose (Dextrose 50 % 25 Gm/50 Ml Syringe) 25 gm IVPUSH Q15M PRN PRN Reason: per Hypoglycemia Standing Ord. Hydromorphone HCl (Hydromorphone Hcl 2 Mg Tablet) 4 mg PO Q3H PRN PRN Reason: Severe Pain (Scale Score 7-10) Last Admin: 01/24/25 12:17 Dose: 4 mg Lactated Ringer's (Lr) 1,000 mls @ 80 mls/hr IVCONT .[id number] [facility] Levothyroxine Sodium 112 mcg/ (Levothyroxine Sodium 25 mcg) 137 mcg PO DAILY@0600 [facility] Last Admin: 01/24/25 06:49 Dose: 137 mcg Lidocaine HCl (Lidocaine Hcl 1 % Mpf 2 Ml Vial) 0.5 ml SUBCUT MOWEFR@1645 [facility] Last Admin: 01/23/25 17:37 Dose: Not Given Losartan Potassium (Losartan Potassium 50 Mg Tablet) 100 mg PO DAILY [facility]; Prot ocol Last Admin: 01/24/25 08:20 Dose: Not Given Magnesium Hydroxide (Milk Of Magnesia 30 Ml Oral.Susp) 30 ml PO DAILY PRN PRN Reason: Constipation Melatonin (Melatonin 3 Mg Tablet) 6 mg PO BEDTIME PRN PRN Reason: Insomnia Multivitamins/Vitamin C (Multivitamin Tablet) 1 tab PO DAILY [facility] Last Admin: 01/24/25 08:20 Dose: Not Given Ondansetron HCl (Ondansetron Hcl 4 Mg/2 Ml Vial) 4 mg IVPUSH Q8H PRN PRN Reason: Nausea and Vomiting Pantoprazole Sodium (Pantoprazole Sodium 40 Mg/10 Ml Vial) 40 mg IVPUSH BID@0630,1630 [facility] Last Admin: 01/24/25 06:49 Dose: 40 mg Quetiapine Fumarate (Quetiapine Fumarate 25 Mg Tablet) 25 mg PO BID PRN PRN Reason: Agitation Sevelamer Carbonate (Sevelamer Carbonate Tablet 800 Mg Tablet) 1,600 mg PO TIDWM [facility] Last Admin: 01/24/25 12:20 Dose: Not Given Sevelamer Carbonate (Sevelamer Carbonate Tablet 800 Mg Tablet) 800 mg PO DAILY PRN PRN Reason: SNACKS Sodium Chloride (0.9 % Sodium Chloride Flush 3 Ml Syringe) 3 ml IVFLUSH QSHIFT [facility] Last Admin: 01/24/25 08:20 Dose: Not Given Sodium Zirconium Cyclosilicate (Sodium Zirconium Cyclosilicate 10 Gm Powd.Pack) 10 gm PO SUTUTHSA@0900 [facility] Last Admin: 01/24/25 08:20 Dose: Not Given Vitamin D (Cholecalciferol (Vitamin D3) 25 Mcg Tablet) 125 mcg PO DAILY [facility] Last Admin: 01/24/25 08:20 Dose: Not Given Home Medications ?Medication ?Instructions ?Recorded ?Confirmed ?Last Taken ?Type atenolol 100 mg tablet 1 tab PO DAILY 07/11/21 01/22/25 01/06/25 History blood sugar diagnostic (FreeStyle 07/11/21 10/30/24 10/30/24 09:00 History Lite Strips) dextroamphetamine-amphetamine 20 1 tab PO TID@0800,1400,1800 07/11/21 01/22/25 01/06/25 History mg tablet levothyroxine 137 mcg tablet 1 tab PO DAILY@0600 07/11/21 01/22/25 01/06/25 History pen needle, diabetic 31 gauge x 07/11/21 10/30/24 10/30/24 09:00 History 16 (BD Ultra-Fine Short Pen Needle) amlodipine 5 mg tablet 5 mg PO BID 11/16/23 04/06/25 03/21/25 History atorvastatin 40 mg tablet 40 mg PO DAILY 02/22/24 01/22/25 01/06/25 History sodium zirconium cyclosilicate 10 10 g PO SUTUTHSA@0900 06/19/24 01/22/25 01/05/25 History gram oral powder packet (Lokelma) alprazolam 0.5 mg tablet 0.5 mg PO DAILY PRN anxiety attack 10/30/24 01/22/25 10/30/24 09:00 History alprazolam 2 mg tablet 2 mg PO BID 10/30/24 01/22/25 01/06/25 History insulin lispro 100 unit/mL See Protocol subcut TIDAC PRN 10/30/24 01/22/25 10/30/24 09:00 History subcutaneous pen (Humalog KwikPen Blood Glucose (U-100) Insulin) vitamin D3 25 mcg (1,000 unit)-vit 1 tab PO SUTUTHSA@0900 11/02/24 01/22/25 01/05/25 History K2 90 mcg disintegrating tablet losartan 100 mg tablet 100 mg PO DAILY 01/09/25 01/22/25 01/06/25 History sevelamer carbonate 800 mg tablet 1,600 mg PO TIDWM 01/09/25 01/22/25 01/06/25 History albuterol sulfate 2.5 mg/3 mL 2.5 mg inhalation Q6H PRN Wheezing 01/18/25 01/22/25 Unknown History (0.083 %) solution for nebulization albuterol sulfate 90 mcg/actuation 2 puff inhalation Q6H PRN 01/18/25 01/22/25 Unknown History aerosol inhaler (Ventolin HFA) Shortness Of Breath Or Wheezing calcium carbonate (Tums) 200 mg PO TID PRN UPSET STOMACH 01/18/25 01/22/25 Unknown History cholecalciferol (vitamin D3) 125 125 mcg PO DAILY 01/18/25 01/22/25 Unknown History mcg (5,000 unit) tablet (Vitamin D3) insulin glargine 100 unit/mL 10 unit subcut BEDTIME 01/18/25 01/22/25 Unknown History subcutaneous solution (Lantus U-100 Insulin) melatonin 5 mg tablet 5 mg PO BEDTIME PRN Insomnia 01/18/25 01/22/25 Unknown History quetiapine 25 mg tablet (Seroquel) 25 mg PO BID PRN Agitation 01/18/25 01/22/25 Unknown History sevelamer carbonate 800 mg tablet 800 mg PO DAILY PRN SNACKS 01/18/25 01/22/25 Unknown History vitamin B complex and vitamin C 1 cap PO DAILY 01/18/25 01/22/25 Unknown History no.20-folic acid 1 mg capsule Exam Height,Weight and Vital Signs: Height 5 ft 6 in Weight 77.7 kg Last Vital Signs Temp 99.1 F 01/24/25 12:33 Pulse 71 01/24/25 12:33 Resp 18 01/24/25 12:33 BP 151/66 H 01/24/25 12:33 Pulse Ox 97 01/24/25 11:07 O2 Del Method Room Air 01/24/25 12:33 Pertinent Lab Results Pertinent Lab Results: Laboratory Tests 01/22/25 01/22/25 01/22/25 14:23 15:13 15:22 WBC 14.7 H RBC 2.71 L D Hgb 8.3 L D Hct 23.1 L D MCV 85.2 MCH 30.6 MCHC 35.9 RDW 14.6 Plt Count 239 MPV 9.7 Immature Gran % (Auto) 0.8 H Neut % (Auto) 77.5 H Lymph % (Auto) 11.[address] [place] % (Auto) 9.0 Eos % (Auto) 1.0 Baso % (Auto) 0.1 Lymph # (Auto) 1.7 [place] # (Auto) 1.3 H Eos # (Auto) 0.1 Baso # (Auto) 0.0 Abs Immat Gran (auto) 0.12 H Absolute Neuts (auto) 11.4 H Absolute Nucleated RBC 0.000 Nucleated RBC % (auto) 0.0 Sodium 132 L Potassium 4.3 Chloride 92 L Carbon Dioxide 26 Anion Gap 18 BUN 81 H Creatinine 10.20 H* Estim Creat Clear Calc 6.5 Estimated GFR 5 POC Glucose Random Glucose 169 H Calcium 7.6 L Magnesium 2.3 Total Bilirubin 0.4 Direct Bilirubin 0.1 AST 20 ALT 14 Alkaline Phosphatase 52 Troponin I High Sens 12.4 Total Protein 5.2 L Albumin 3.1 L Stool Occult Blood POSITIVE Influenza Type A (PCR) POSITIVE A Influenza Type B (PCR) NEGATIVE RSV RNA Qual (PCR) NEGATIVE SARS-CoV-2 RNA (RT-PCR) NEGATIVE 01/23/25 01/23/25 01/23/25 04:54 07:09 08:24 WBC 9.9 RBC 2.80 L Hgb 8.5 L Hct 24.3 L MCV 86.8 MCH 30.4 MCHC 35.0 RDW 14.7 Plt Count 246 MPV 9.9 Immature Gran % (Auto) Neut % (Auto) Lymph % (Auto) [place] % (Auto) Eos % (Auto) Baso % (Auto) Lymph # (Auto) [place] # (Auto) Eos # (Auto) Baso # (Auto) Abs Immat Gran (auto) Absolute Neuts (auto) Absolute Nucleated RBC 0.000 Nucleated RBC % (auto) 0.0 Sodium 128 L Potassium 4.5 Chloride 93 L Carbon Dioxide 23 Anion Gap 17 BUN 82 H Creatinine 10.95 H* Estim Creat Clear Calc 6.0 Estimated GFR 5 POC Glucose 77 75 Random Glucose 85 Calcium 7.3 L Magnesium Total Bilirubin Direct Bilirubin AST ALT Alkaline Phosphatase Troponin I High Sens Total Protein Albumin Stool Occult Blood Influenza Type A (PCR) Influenza Type B (PCR) RSV RNA Qual (PCR) SARS-CoV-2 RNA (RT-PCR) 01/23/25 01/24/25 11:17 05:26 WBC 8.6 RBC 2.89 L Hgb 8.7 L Hct 25.5 L MCV 88.2 MCH 30.1 MCHC 34.1 RDW 14.6 Plt Count 238 MPV 10.1 Immature Gran % (Auto) Neut % (Auto) Lymph % (Auto) [place] % (Auto) Eos % (Auto) Baso % (Auto) Lymph # (Auto) [place] # (Auto) Eos # (Auto) Baso # (Auto) Abs Immat Gran (auto) Absolute Neuts (auto) Absolute Nucleated RBC 0.000 Nucleated RBC % (auto) 0.0 Sodium 134 L Potassium 4.4 Chloride 95 L Carbon Dioxide 25 Anion Gap 18 BUN 41 H Creatinine 7.48 H* Estim Creat Clear Calc 8.8 Estimated GFR 7 POC Glucose 78 Random Glucose 68 Calcium 7.5 L Magnesium Total Bilirubin Direct Bilirubin AST ALT Alkaline Phosphatase Troponin I High Sens Total Protein Albumin Stool Occult Blood Influenza Type A (PCR) Influenza Type B (PCR) RSV RNA Qual (PCR) SARS-CoV-2 RNA (RT-PCR) Airway Mallampati Class: II TM Dist: >3cm Neck ROM: Full Assessment and Plan Assessment Anesthesia Assessment: Anesthesia Plan Discussed and Chart Reviewed Final Anesthetic Review Family History of Problems with Anesthesia: No History of Problems with Anesthesia: No NPO: Yes ASA Class: IV Final Preanesthetic Review: No Changes in Pt Med Stat, Meds/Allgs Chart Reviewed, Consent Obtained/Reviewed, Anes Risks/Benef Reviewed and DNR Form (If Appl.) Patient Risk: High Procedure Risk: Low Anesthetic Plan Anesthetic Plan: TIVA Disposition: Standard PACU
[2025-01-24] MEDS: Lactated Ringers 1,000 ML 80 ML IVCONT (12:48)
[2025-01-24 12:49] LABS: Glucose, Whole Blood 75 mg/dL (60-115)
--- NOTE | 2025-01-24 13:00 | MHC.SHP ---
Pre-Procedural Eval Section A - 24 Hr Update-Section A only Date of Service: 01/24/25 The patient is an INPATIENT: Yes The patient has been examined within 24 hours of the surgical procedure. The History & Physical has been completed within 30 days and I have reviewed it.: Yes Section B - Complete if H&P > 30 days Chief Complaint: Acute anemia, genearlized weakness Allergies: Allergies Allergy/AdvReac Type Severity Reaction Status Date / Time Penicillins [PENICILLINS] Allergy Unknown RASH Verified 01/22/25 12:27 tramadol [From ULTRAM] Allergy Unknown RASH Verified 01/22/25 12:27 trazodone [TRAZODONE] Allergy Unknown PRIAPISM Verified 01/22/25 12:27 risperidone [RISPERIDONE] AdvReac Severe dizzy, EPS Verified 01/22/25 12:27 Plan Diagnosis/Plan: Unchanged I have reviewed the history and physical and performed a pertinent physical examination on my patient. No changes have occurred unless specified. Time Spent With Patient Time: Total time managing care of this patient today ____ minutes.
--- NOTE | 2025-01-24 13:42 | P.PNGI_ITS ---
Subjective Subjective Date of Service: 01/24/25 Interval History: hgb been stable no melena no rectal bleeding no abdominal pain Critical Care Time (minutes): 0 Physical Exam 2 Vital Signs: Vital Signs: Last Vital Signs Temp 99.1 F 01/24/25 12:33 Pulse 71 01/24/25 12:33 Resp 18 01/24/25 12:33 BP 151/66 H 01/24/25 12:33 Pulse Ox 97 01/24/25 11:07 O2 Del Method Room Air 01/24/25 12:33 BMI result Body Mass Index 27.6 EXAM: GENERAL: The patient is well developed and nontoxic. VITAL SIGNS:see workflow HEENT: Nonicteric sclerae, PERRLA, EOMI. Oropharynx clear. Moist mucous membranes. Conjunctivae appear well perfused. No thyroid mass. CHEST: Chest wall is nontender. HEART: Regular rate and rhythm without murmurs. LUNGS: Clear to auscultation bilaterally. ABDOMEN: Soft, positive bowel sounds, nontender, no organomegaly.no flank tenderness SKIN: No rash, no excessive bruising, petechiae, or purpura. NEUROLOGIC: Cranial nerves II-XII intact without motor/sensory deficit. Psych: normal affect Objective Data Labs 01/24/25 05:26 01/24/25 05:26 Labs: Laboratory Results - last 24 hr 01/24/25 01/24/25 05:26 12:43 WBC 8.6 RBC 2.89 L Hgb 8.7 L Hct 25.5 L MCV 88.2 MCH 30.1 MCHC 34.1 RDW 14.6 Plt Count 238 MPV 10.1 Absolute Nucleated RBC 0.000 Nucleated RBC % (auto) 0.0 Sodium 134 L Potassium 4.4 Chloride 95 L Carbon Dioxide 25 Anion Gap 18 BUN 41 H Creatinine 7.48 H* Estim Creat Clear Calc 8.8 Estimated GFR 7 POC Glucose 75 Random Glucose 68 Calcium 7.5 L Procedures Date of Service Date of Service: 01/24/25 Progress Note: A&P Assessment and plan (1) Acute on chronic anemia: Status: Acute Plan 1/ Acute on chronic anemia, possible low level GI bleed PLAN: 1/ EGD and colo today for further assessment, keep on PPI for the moment Time Spent With Patient Time: Total time managing care of this patient today ____ minutes. Quality Stroke Does the patient have a stroke diagnosis?: No VTE Prior VTE?: No VTE Risk Level:: Medical - moderate - high VTE Device Contraindication: N/A - Device Ordered VTE Drug Contraindication: Treatment Not Indicated
--- NOTE | 2025-01-24 13:43 | HO.OPN-COLON ---
Colonoscopy Operative Note Operative Note Date of Service: 01/24/25 Narrative: Operative Information Procedure Description: EGD, Colonoscopy Indication: anemia Anesthesia: MAC FLEXIBLE TRANSORAL UPPER GASTROINTESTINAL ENDOSCOPY AND COLONOSCOPY PROCEDURE NOTE UPPER ENDOSCOPY Consent: Indications for the procedure and potential complications of bleeding, perforation, reaction to medications and missed diagnosis were discussed with the patient and informed consent was obtained. Instrument: Olympus GIF H 190 J mid size upper endoscope Monitoring: Vital signs and clinical assessment, continuous EKG monitoring, Pulse oximetry, Carbon Dioxide monitoring and blood pressure monitoring were done throughout the procedure. Procedure: The patient was placed in the left lateral decubitis position and pre-procedure medications were administered and a bite block was placed. The endoscope was inserted into the mouth and advanced under direct vision to the third part of duodenum. A careful inspection was made as the upper endoscope was withdrawn including a retroflexed examination of the proximal stomach; Findings and interventions are described below. Findings: Larynx:normal Esophagus: GE junction at 40 cm, diaphragm hiatus at 40 cm, LA grade D esophagitis, with linear erosive streaks in distal esophagus and friable, swollen and boggy GEJ with slough noted, bx taken, one area was oozing continuously and x 2 clips applied for hemostasis. Stomach: Patchy erythema. Biopsies were obtained. Grade 2 flap valve on retroflexed examination of the cardia. Duodenum: bulbar duodenitis Intervention: Biopsies as noted above, clips x 2 COLONOSCOPY Instrument: Olympus variable stiffness pediatric scope 190L Colonoscopy Monitoring: Vital signs and clinical assessment, continuous EKG monitoring, Pulse oximetry, Carbon Dioxide monitoring and blood pressure monitoring were done throughout the procedure. Colon withdrawal time was 9 minutes. Procedure: The patient was placed in the left lateral decubitis position and pre-procedure medications were administered. After a digital rectal examination of the ano-rectum, the video colonoscope was inserted into the rectum and advanced through the colon to the cecum/TI. The colonoscope was slowly withdrawn in a retrograde panoramic fashion and the colon mucosa was carefully examined including a retroflexed view of the rectum. Findings and interventions are described below. Procedure Difficulty:moderate Findings: Terminal Ileum-normal Cecum:normal Ascending Colon: normal Transverse Colon -normal Descending Colon:normal Sigmoid Colon: mild diverticulosis Rectum: Retroflexion with small internal hemorrhoids, grade I mild melanosis coli noted Anorectum - normal Colon preparation: [place] Bowel Preparation Scale Right colon; 1-2 Transverse colon: 2 Left colon; 1-2 (0 = Unprepared colon segment with mucosa not seen due to solid stool that cannot be cleared. 1 = Portion of mucosa of the colon segment seen, but other areas of the colon segment not well seen due to staining, residual stool and/or opaque liquid. 2 = Minor amount of residual staining, small fragments of stool and/or opaque liquid, but mucosa of colon segment seen well. 3 = Entire mucosa of colon segment seen well with no residual staining, small fragments of stool or opaque liquid) Impression and Post Procedure Diagnosis: Endoscopy Findings: La grade D esophagitis gastritis duodenitis Colonoscopy Findings: diverticulosis internal hemorrhoids Plan: Await Pathology results Repeat Colonoscopy in 5 years if health allows or earlier if clinically indicated High fiber diet leaflet avoid straining at stool, epsom salts and sitz bath, anusol supps or cream high dose PPI BID for 3 months e.g pantoprazole 40 mg BID then can taper down carafate 1 g for 2 weeks if H pylori pos then can treat consider repeat EGD in 3-6 months to see if healed Above findings were reviewed with the patient and relevant handouts were provided if indicated.
--- NOTE | 2025-01-24 15:49 | MHC.CM.PN ---
EMR REVIEWED, PT CONTACTED PT'S PER REQUEST OF HOSPITALIST, CM CONTACTED PIETRO AT 1542PM AT NUMBER ON FILE, PIETRO REPORTS THAT SHE WOULD LIKE PT TO GO TO [facility], [facility] SECOND CHOICE PT WILL NEED HD MWF, PT'S OUTPT CHAIR IS AT [facility] MWF, REFERRAL PLACED, P.T. EVAL PENDING, CM WILL CONT TO FOLLOW DC NEEDS.
[2025-01-24] MEDS: Amphetamine Mixed Salts 20 MG TABLET PO (17:17)
[2025-01-24] MEDS: Sevelamer Carbonate Tablet 800 MG TABLET 1600 MG PO (17:18)
--- NOTE | 2025-01-24 18:18 | P.PNNP_ITS ---
Subjective Subjective Date of Service: 01/24/25 Interval history: Events noted. All recent data reviewed Physical Exam 2 Vital Signs: Vital Signs: Last Vital Signs Temp 98.2 F 01/24/25 15:20 Pulse 63 01/24/25 15:20 Resp 18 01/24/25 15:20 BP 159/69 H 01/24/25 15:20 Pulse Ox 98 01/24/25 15:20 O2 Del Method Room Air 01/24/25 15:20 O2 Flow Rate 6 01/24/25 13:45 BMI result Body Mass Index 27.6 Const: General: no acute distress Eyes: EOM: EOMs intact bilaterally Resp: Auscultation: diminished lung sounds Cardio: Rate: regular rate GI: Palpation (GI): Soft to palpation Neuro: General: moves all extremities Objective Data Labs 01/24/25 05:26 01/24/25 05:26 Labs: Laboratory Results - last 24 hr 01/24/25 01/24/25 05:26 12:43 WBC 8.6 RBC 2.89 L Hgb 8.7 L Hct 25.5 L MCV 88.2 MCH 30.1 MCHC 34.1 RDW 14.6 Plt Count 238 MPV 10.1 Absolute Nucleated RBC 0.000 Nucleated RBC % (auto) 0.0 Sodium 134 L Potassium 4.4 Chloride 95 L Carbon Dioxide 25 Anion Gap 18 BUN 41 H Creatinine 7.48 H* Estim Creat Clear Calc 8.8 Estimated GFR 7 POC Glucose 75 Random Glucose 68 Calcium 7.5 L Procedures Date of Service Date of Service: 01/24/25 Assessment & Plan Assessment and plan (1) ESRD needing dialysis: Status: Acute Plan Shall keep him on MWF schedule. He should be on a low-sodium, low phosphorus diet with a fluid restriction. He should take phosphorus binders 3 times a day with meals. Procrit [id number] U thrice a week. GI F/U. C/W rest of current management. We shall closely follow-up him up during his current hospital stay for continued care. Progress Note: Quality Stroke Does the patient have a stroke diagnosis?: No
[2025-01-24] MEDS: ALPRAZolam 0.5 MG TABLET 2 MG PO (20:12)
[2025-01-24] MEDS: amLODIPine Besylate 5 MG TABLET PO (20:12)
[2025-01-24] MEDS: Melatonin 3 MG TABLET 6 MG PO (21:31)
[2025-01-25 03:49] VITALS: BP 133/63; PULSE 67; RESP 16; TEMP 36.7; O2SAT 93
[2025-01-25] MEDS: HYDROmorphone HCl 2 MG TABLET 4 MG PO ×3 (04:52→15:27)
[2025-01-25] MEDS: Levothyroxine Sodium 112 MCG, Levothyroxine Sodium 25 MCG 137 MCG PO (05:34)
[2025-01-25] MEDS: Pantoprazole Sodium 40 MG/10 ML VIAL IVPUSH (05:34)
[2025-01-25 07:03] LABS: Hemoglobin 8.2 g/dl (14.0-18.0); Mean Corpuscular HGB Conc 35.7 g/dl (31.0-36.0); Mean Corpuscular Hemoglobin 31.1 pg (27.0-33.0); Mean Corpuscular Volume 87.1 fL (80.0-98.0); Mean Platelet Volume 10.2 fL (9.4-12.4); Platelet Count 200 X10*3/uL (160-400); Red Blood Count 2.64 X10*6/uL (4.60-5.80); Red Cell Distribution Width 14.8 % (11.0-16.0); White Blood Count 7.4 X10*3/uL (4.8-10.8)
[2025-01-25 07:29] LABS: Anion Gap 16 (12-20); Blood Urea Nitrogen 46 mg/dL (9-16); Calcium 7.4 mg/dL (8.4-10.2); Carbon Dioxide 24 mmol/L (22-29); Chloride 95 mmol/L (96-108); Creatinine Clr Calc Pharmacy 6.7; Estimated Glomerular Filt Rate 5; Glucose Random 96 mg/dL (60-115); Potassium 4.3 mmol/L (3.3-5.1); Sodium 131 mmol/L (135-145)
[2025-01-25 07:41] VITALS: BP 127/63; PULSE 65; RESP 18; TEMP 36.9; O2SAT 97
--- NOTE | 2025-01-25 08:15 | HO.POSTANES ---
Post Anesthesia Evaluation Post Anesthesia Evaluation Date of Service: 01/25/25 Vital Signs: Vital Signs Temp Pulse Resp BP Pulse Ox O2 Del Method 01/25/25 07:41 98.4 F 65 18 127/63 97 Room Air 01/25/25 03:49 98.1 F 67 16 133/63 93 Room Air 01/24/25 23:51 97.4 F 62 16 138/65 97 Room Air Anesthesia: Monitored Mental Status: Awake Pain Control: Satisfactory Nausea/Vomiting: None Hydration: Adequate Anesthesia-Related Issues: No Anes. Related Issues
--- NOTE | 2025-01-25 08:23 | MHC.CM.PN ---
CM RECEIVED MESSAGE FROM [facility] THAT THEY CAN ACCEPT BED AND THAT [facility] HAS SPOTS, PT CAN DC SOON TODAY, CM WILL CONT TO FOLLOW.
[2025-01-25] MEDS: ALPRAZolam 0.5 MG TABLET 2 MG PO (09:08)
[2025-01-25] MEDS: Amphetamine Mixed Salts 20 MG TABLET PO ×3 (09:08→17:28)
[2025-01-25] MEDS: Losartan Potassium 50 MG TABLET 100 MG PO (09:08)
[2025-01-25] MEDS: atenoloL 100 MG TABLET PO (09:09)
[2025-01-25] MEDS: Cholecalciferol (Vitamin D3) 25 MCG TABLET 125 MCG PO (09:09)
[2025-01-25] MEDS: Multivitamin TABLET 1 TAB PO (09:09)
[2025-01-25] MEDS: Sevelamer Carbonate Tablet 800 MG TABLET 1600 MG PO ×2 (09:10→15:28)
[2025-01-25] MEDS: 0.9 % Sodium Chloride Flush 3 ML SYRINGE IVFLUSH ×2 (09:12→17:28)
[2025-01-25] MEDS: amLODIPine Besylate 5 MG TABLET PO (09:12)
[2025-01-25] MEDS: Atorvastatin Calcium 40 MG TABLET PO (09:12)
--- NOTE | 2025-01-25 09:30 | P.PNNP_ITS ---
Subjective Subjective Date of Service: 01/25/25 Interval history: Events noted. All recent data reviewed Physical Exam 2 Vital Signs: Vital Signs: Last Vital Signs Temp 98.4 F 01/25/25 07:41 Pulse 65 01/25/25 07:41 Resp 18 01/25/25 07:41 BP 127/63 01/25/25 07:41 Pulse Ox 97 01/25/25 07:41 O2 Del Method Room Air 01/25/25 07:41 O2 Flow Rate 6 01/24/25 13:45 BMI result Body Mass Index 27.6 Const: General: no acute distress Eyes: EOM: EOMs intact bilaterally Resp: Auscultation: diminished lung sounds Cardio: Rate: regular rate GI: Palpation (GI): Soft to palpation Neuro: General: moves all extremities Objective Data Labs 01/25/25 06:36 01/25/25 06:36 Labs: Laboratory Results - last 24 hr 01/24/25 01/25/25 12:43 06:36 WBC 7.4 RBC 2.64 L Hgb 8.2 L Hct 23.0 L MCV 87.1 MCH 31.1 MCHC 35.7 RDW 14.8 Plt Count 200 MPV 10.2 Absolute Nucleated RBC 0.000 Nucleated RBC % (auto) 0.0 Sodium 131 L Potassium 4.3 Chloride 95 L Carbon Dioxide 24 Anion Gap 16 BUN 46 H Creatinine 9.79 H* Estim Creat Clear Calc 6.7 Estimated GFR 5 POC Glucose 75 Random Glucose 96 Calcium 7.4 L Procedures Date of Service Date of Service: 01/25/25 Assessment & Plan Assessment and plan (1) ESRD needing dialysis: Status: Acute Plan Shall keep him on MWF schedule. He should be on a low-sodium, low phosphorus diet with a fluid restriction. He should take phosphorus binders 3 times a day with meals. Procrit [id number] U thrice a week. GI F/U. C/W rest of current management. We shall closely follow-up him up during his current hospital stay for continued care. Progress Note: Quality Stroke Does the patient have a stroke diagnosis?: No
[2025-01-25 12:59] LABS: Hepatitis B Surface Antigen Negative (Negative)
--- NOTE | 2025-01-25 13:18 | MHC.CM.PN ---
PT TO BE MEDICALLY CLEARED FOR DC TO STR AT [facility], ART ATTEMPTED TO CONTACT PT'S AT NUMBER ON FILE, NO ANSWER AND DETAILED MESSAGE LEFT, PIETRO WAS AWARE YESTERDAY THAT PT COULD TXFR EARLY TODAY, [facility] FOR TRANSPORT AT 5:30PM PENDING HEP B RESULTS. ART RECEIVED A CALL FROM [facility] WHO IS ARRANGING PT'S GUEST HD, REQUESTED DOCUMENTS FAXED TO [facility] [phone].
--- NOTE | 2025-01-25 14:54 | PM.DS ---
DS: Providers Provider Date of Service: 01/25/25 Date of admission: 01/22/25 18:02 Date of discharge: 01/25/25 Primary care physician: Matias Tan MD Consults: 01/22/25 18:01 Consult to Gastroenterology Routine Consulting Provider: Alice Espinoza Reason for consultation: Acute anemia, stool heme +, ?GIB 01/22/25 18:05 Consult to Nephrology Routine Consulting Provider: [facility] Reason for consultation: ESRD on HD MWF DS: Diagnosis Discharge Diagnosis (1) ESRD needing dialysis: Status: Acute DS: Summary Hospital Course Hospital Course: History and physical as per admitting provider. Pt is a 70-year-old male with a PMH significant for?ESRD on HD M/W/F, HTN, insulin-dependent type 2 diabetes, hypothyroidism, HLD, normocytic anemia, and mood disorder who presents to the ED with?generalized weakness and unable to ambulate at home. Pt was just discharged from the hospital yesterday after presenting on 01/19 with acute encephalopathy and gait abnormality. Pt had no obvious infectious source and pt's mentation seen back to baseline during hospital stay. Patient's gait abnormality has been ongoing for months. Has had extensive workup with Neurology at [facility] as well as seen by Neurology here on previous admission. MRI on 01/19 initially concerning for occlusive thrombus, but subsequent venogram was normal and showed no main cerebral venous sinus thrombosis. MRI also showed global cerebral atrophy questionable normal pressure hydrocephalus, which Neurology recommended for outpatient follow-up. Of note, pt was seen by OT and Marshall score was 14/30 which indicated moderate cognitive impairment and recommended 24/7 care, which patient's declined. Pt was discharged yesterday with PT/OT services. Pt reports initially felt fine once he got home, but then developed central abdominal pain a few hours later. Denies any nausea or vomiting. No diarrhea. Denies hematochezia or melena. No lightheadedness or dizziness. Pt reports he has a walker and cane at home, but tries not to use them so as to get around on his own and strength in his legs. However, pt found that his legs were too weak to support him and has only been able to take a few steps while at home. Denies fall. No chest pain/pressure, palpitations. Denies shortness or breath or difficulty breathing. No fever, chills. Denies cough. In the ED pt with slightly soft BP of 133/56, vitals otherwise stable and WNL. Labs were significant for leukocytosis 14.4, H&H 8.3/23.1 (decreased from 10.9/31.6 two days prior on 01/20/2025), sodium 132, BUN 81, and creatinine 10.20. Stool tested positive for occult blood. Pt continues to test positive for influenza type A. CXR showed no acute findings. EKG demonstrated normal sinus rhythm without evidence of significant ischemic changes, similar to prior. Pt was treated with Protonix and Fleet enema. Pt will be admitted to the hospital for treatment and further evaluation of acute anemia and generalized weakness concerning for possible GI bleed. 70-year-old man treated for acute on chronic anemia with generalized weakness, substernal and epigastric abdominal pain for 2 days prior to admission. His H&H was 8.3/23.1 with a drop from 2 days prior. Stool occult was positive. There was concern for GI bleed. He denied having any hematochezia or melena. He was treated with IV Protonix b.i.d.. Status post EGD and colonoscopy on 01/24/2025 showing esophagitis, gastritis, duodenitis, diverticulosis, internal hemorrhoids. Plan is for high-dose PPI b.i.d. for 3 months then taper down, Carafate 1 g for 2 weeks, avoid straining, Epson salt, Sitz bath, Anusol suppositories or cream. Consider repeat EGD in 3-6 months, repeat colonoscopy in 5 years. He was noted to have some acute encephalopathy which is likely secondary to early dementia. He was given Haldol for agitation with good effect. He was noted to have some leukocytosis as well without any symptoms concerning for acute infection likely reactionary in an he was not treated with any antibiotics during hospitalization. He is on dialysis Thursday, Thursday and Thursday. Plan is for patient to be discharged to short-term rehab for physical therapy. Diabetes mellitus type 2. Continue home medications Hypertension. Continue amlodipine, atenolol and losartan Hyperlipidemia. Continue statin Mental health. Continue Adderall, Xanax Hypothyroidism. Continue levothyroxine Chronic pain from dialysis. Continue hydromorphone Time Attestation Discharge Coordination Time (in mins): 45 Quality: Safe Use of Opioids Does Pt have an Active Cancer Diagnosis on the Problem List?: No Quality: Stroke Does the patient have a stroke diagnosis?: No Physical Exam Vital Signs: Vital Signs: Last Vital Signs Temp 98.4 F 01/25/25 07:41 Pulse 65 01/25/25 07:41 Resp 18 01/25/25 07:41 BP 127/63 01/25/25 07:41 Pulse Ox 97 01/25/25 07:41 O2 Del Method Room Air 01/25/25 07:41 O2 Flow Rate 6 01/24/25 13:45 BMI result Body Mass Index 27.6 Appearing in no acute distress head is normocephalic atraumatic eyes pupils are PERRLA sclera is anicteric mouth throat mucous membranes are intact and moist neck is supple no lymphadenopathy, no JVD noted lung sounds are clear to auscultation heart regular rate rhythm, clear S1, S2 positive bowel sounds, abdomen is soft, nontender neuro patient is alert, Intermittent confusion DS: Data Data Completed and Pending Completed studies during hospitalization [Text1]: Procedures Assistance with Respiratory Ventilation, Less than 24 Consecutive Hours, Continuous Positive Airway Pressure (11/04/23) Performance of Urinary Filtration, Intermittent, Less than 6 Hours Per Day (01/09/25) Pending studies at discharge: Pending at discharge 01/24/25 13:20 Surgical [PTH] Routine Labs on day of discharge: Laboratory Results - last 24 hr 01/25/25 01/25/25 06:36 11:51 WBC 7.4 RBC 2.64 L Hgb 8.2 L Hct 23.0 L MCV 87.1 MCH 31.1 MCHC 35.7 RDW 14.8 Plt Count 200 MPV 10.2 Absolute Nucleated RBC 0.000 Nucleated RBC % (auto) 0.0 Sodium 131 L Potassium 4.3 Chloride 95 L Carbon Dioxide 24 Anion Gap 16 BUN 46 H Creatinine 9.79 H* Estim Creat Clear Calc 6.7 Estimated GFR 5 Random Glucose 96 Calcium 7.4 L Hep Bs Antigen Negative Discharge Plan Discharge Anticipated Discharge Date/Time: 01/25/25 14:35 Patient Disposition: Xfer [facility] Discharge Diagnosis: Acute encephalopathy Acute on chronic anemia Leukocytosis End-stage renal disease on dialysis Esophagitis Gastritis Duodenitis Diverticulosis Internal hemorrhoids Referrals: [facility] [Outside] - 1 Day (short term rehab) Matias Tan MD [Primary Care Provider] - 1 Week Discharge Medications: New sucralfate [Carafate] 1 gram tablet 1 g PO BID 14 Days Qty: 28 0RF omeprazole 40 mg capsule,delayed release(DR/EC) 40 mg PO BID 90 Days Qty: 180 0RF Continued levothyroxine 137 mcg tablet 1 tab PO DAILY@0600 atenolol 100 mg tablet 1 tab PO DAILY (DME) FreeStyle Lite Strips Strip MISCELLANEOUS TID dextroamphetamine-amphetamine 20 mg tablet 1 tab PO TID@0800,1400,1800 (DME) pen needle, diabetic [BD Ultra-Fine Short Pen Needle] 31 gauge x 5/16 needle subcut DAILY Lokelma 10 gram Powder In Packet 10 g PO SUTUTHSA@0900 Rx Instructions: on non dialysis days vitamin D3-vitamin K2 25 mcg (1,000 unit)-90 mcg Tablet,Disintegrating 1 tab PO SUTUTHSA@0900 losartan 100 mg tablet 100 mg PO DAILY sevelamer carbonate 800 mg tablet 1,600 mg PO TIDWM hydromorphone 4 mg tablet 4 mg PO Q3H PRN (Reason: Severe Pain (Scale Score 7-10)) Qty: 20 0RF quetiapine [Seroquel] 25 mg Tablet 25 mg PO BID PRN (Reason: Agitation) insulin glargine [Lantus U-100 Insulin] 100 unit/mL Solution 10 unit SUBCUT BEDTIME albuterol sulfate 2.5 mg /3 mL (0.083 %) Solution For Nebulization 2.5 mg INHALATION Q6H PRN (Reason: Wheezing) calcium carbonate [Tums] 200 mg calcium (500 mg) Tablet,Chewable 200 mg PO TID PRN (Reason: UPSET STOMACH) B complex with C 20-folic acid 1 mg Capsule 1 cap PO DAILY albuterol sulfate [Ventolin HFA] 90 mcg/actuation Hfa Aerosol Inhaler 2 puff INHALATION Q6H PRN (Reason: Shortness Of Breath Or Wheezing) sevelamer carbonate 800 mg Tablet 800 mg PO DAILY PRN (Reason: SNACKS) Rx Instructions: must administer with a meal/food melatonin 5 mg Tablet 5 mg PO BEDTIME PRN (Reason: Insomnia) cholecalciferol (vitamin D3) [Vitamin D3] 125 mcg (5,000 unit) Tablet 125 mcg PO DAILY amlodipine 5 mg tablet 5 mg PO BID atorvastatin 40 mg tablet 40 mg PO DAILY alprazolam 0.5 mg tablet 0.5 mg PO DAILY PRN (Reason: anxiety attack) alprazolam 2 mg tablet 2 mg PO BID insulin lispro [Humalog KwikPen Insulin] 100 unit/mL insulin pen See Protocol subcut TIDAC PRN (Reason: Blood Glucose) Protocol: Insulin Correction Scale Less than or equal to 110 ---- Give (units): 0 111 to 150 Give (units): 0 151 to 200 Give (units): 2 201 to 250 Give (units): 4 251 to 300 Give (units): 6 301 to 350 Give (units): 8 Greater than 350 Give (units): 10 Call MD if Blood Glucose > : 350 Discharge Orders: Discharge Order (Routine); Ordered 01/25/25 Ordered By: Sara Pizarro Diet: Advance to usual diet Activity on Discharge: As tolerated Stand Alone Forms: Patient Portal Discharge page Print Language: Sri Lankan Care Plan Goals: Repeat colonoscopy in 5 years, avoid straining while stooling, Epson salts and Sitz bath for hemorrhoids. May also use Anusol suppositories or cream. Continue high dose PPI twice daily for 3 months. Carafate 1 g for 2 weeks. Consider repeat EGD in 3-6 months, follow up with mechanical systems engineer Health Concerns: Acute encephalopathy Acute on chronic anemia Leukocytosis End-stage renal disease on dialysis Esophagitis Gastritis Duodenitis Diverticulosis Internal hemorrhoids Plan of Treatment: Follow-up with primary care provider as needed Take all medications as prescribed Assessment: See discharge summary
[2025-01-25 15:37] VITALS: BP 172/73; PULSE 64; RESP 19; TEMP 36.5; O2SAT 100
[2025-01-25] MEDS: ALPRAZolam 0.5 MG TABLET PO (17:30)
--- NOTE | 2025-01-29 10:05 | P.CDIM_ITS ---
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 Please review below and update the documentation accordingly. Clinical Indicators: NA 128 eGFR 5.0 acute encephalopathy, likely has early dementia Based on the above, please further specify the known or suspected type of the documented encephalopat hy: Metabolic Septic Toxic Toxic metabolic Hypertensive Anoxic Alcoholic Hepatic (reported as hepatic failure and needs further specificity as to acute, subacute, or chronic) Due to a specified condition (such as UTI, hyponatremia, CVA, etc.) Other (explain) Clinically unable to determine (explain) Thank you, Loli Gottlieb RN Use of terms such as suspected, likely, concern for, or probable (associated with a specific diagnosi s that is being evaluated, monitored, or treated as if it exists) are acceptable and can be coded in the inpatient se tting, when documented at the time of discharge. Please use your independent medical judgment in providing your response. THIS QUERY IS PART OF THE PERMANENT MEDICAL RECORD
== END 2025-01-25 18:33 | disposition skilled nursing facility (03) | DRG 380 ==
LOC: HO.ED 17:56 → HO.EDOVER 18:22 → HO.IMC 01-23 14:04
PROVIDERS: Internal Medicine Gastroenterology; Nurse Practitioner Family; Admitting Provider Student in an Organized Health Care Education/Training Program; Emergency Provider Emergency Medicine; PCP Family Medicine; Visit Provider Nurse Practitioner Acute Care
PROC: 0DB48ZX Excision of Esophagogastric Junction, Via Natural or Artificial Opening Endoscopic, Diagnostic (ICD-10-PCS; principal; 2025-01-24 14:40)
DX: K22.11 Ulcer of esophagus with bleeding (principal); G93.41 Metabolic encephalopathy; N18.6 End stage renal disease; I12.0 Hypertensive chronic kidney disease with stage 5 chronic kidney disease or end stage renal disease; N25.81 Secondary hyperparathyroidism of renal origin; F03.911 Unspecified dementia, unspecified severity, with agitation; E11.22 Type 2 diabetes mellitus with diabetic chronic kidney disease; K29.70 Gastritis, unspecified, without bleeding; K29.80 Duodenitis without bleeding; K57.30 Diverticulosis of large intestine without perforation or abscess without bleeding; K64.8 Other hemorrhoids; Z99.2 Dependence on renal dialysis; E78.5 Hyperlipidemia, unspecified; D63.1 Anemia in chronic kidney disease; E03.9 Hypothyroidism, unspecified; Z20.822 Contact with and (suspected) exposure to COVID-19; Z79.4 Long term (current) use of insulin; Z79.890 Hormone replacement therapy; Z79.899 Other long term (current) drug therapy
CPT/HCPCS: 0241U; 36415; 71046; 80048; 80076; 82272; 82947; 83735; 84484; 85025; 85027; 87340; 88305; 88313; 88342; 90999; 93005; 97162; 99285; J2003; J2470; J2704; J7120

== ENCOUNTER → 2025-01-22 12:31 | Outpatient (BNV) | payer MEDICARE, SELFPAY | PROVIDERS: Admitting Provider Student in an Organized Health Care Education/Training Program; Emergency Provider Emergency Medicine; PCP Family Medicine; Visit Provider Internal Medicine Cardiovascular Disease | DX: R53.1 Weakness (principal) | CPT/HCPCS: 93010 ==

== ENCOUNTER → 2025-01-22 12:31 | Outpatient (BNV) | payer MEDICARE, SELFPAY | PROVIDERS: Emergency Provider Emergency Medicine; Visit Provider Radiology Diagnostic Radiology | DX: R53.1 Weakness (principal); R07.9 Chest pain, unspecified | CPT/HCPCS: 71046 ==

== ENCOUNTER → 2025-01-22 18:02 | Outpatient (BNV) | payer MEDICARE, SELFPAY | PROVIDERS: Admitting Provider Student in an Organized Health Care Education/Training Program; Emergency Provider Emergency Medicine; PCP Family Medicine; Visit Provider Internal Medicine Nephrology | DX: N18.6 End stage renal disease (principal); Z99.2 Dependence on renal dialysis | CPT/HCPCS: 90935; 99232 ==

== ENCOUNTER → 2025-01-22 18:02 | Outpatient (BNV) | payer MEDICARE, SELFPAY | PROVIDERS: Admitting Provider Student in an Organized Health Care Education/Training Program; Emergency Provider Emergency Medicine; PCP Family Medicine; Visit Provider Internal Medicine Gastroenterology | DX: D64.9 Anemia, unspecified (principal) | CPT/HCPCS: 99223 ==

== ENCOUNTER → 2025-01-22 18:02 | Outpatient (BNV) | payer MEDICARE, SELFPAY | PROVIDERS: Admitting Provider Student in an Organized Health Care Education/Training Program; Emergency Provider Emergency Medicine; Visit Provider Student in an Organized Health Care Education/Training Program | DX: N18.6 End stage renal disease (principal); Z99.2 Dependence on renal dialysis | CPT/HCPCS: 99223; 99232; 99239 ==

== ENCOUNTER 2025-02-04 03:28 | Inpatient (IN) | payer MEDICARE, SELFPAY ==
[2025-02-04] VITALS (39 sets, daily range): BP systolic 129–175; BP diastolic 57–84; PULSE 81–93; RESP 16–33; TEMP 37.5–38.6; O2SAT 82–99; BMI 26.6
--- NOTE | ~2025-02-04 | CT_ITS ---
CLINICAL HISTORY: fall, pain CT cervical spine without contrast Comparison: None Findings: Normal vertebral body alignment. No significant degenerative change. No acute fractures or dislocations. No acute findings on limited view of the intracranial contents. Enlarged right-sided cervical adenopathy. A supraclavicular lymph node on the right measures 20 x 12 mm. Bilateral pleural effusions. IMPRESSION: No evidence of acute fracture or malalignment. Right lower cervical/supraclavicular adenopathy. This document has been electronically signed by: Miesha Sol MD on 02/04/2025 06:49:56
--- NOTE | ~2025-02-04 | CT_ITS ---
CLINICAL HISTORY: fall, thinners CT head without contrast Comparison: CT/DC/SR - CT HEAD/BRAIN WO IV CON - 01/18/25 13:18 EDT Findings: No intra-axial mass, midline shift, hydrocephalus, or acute hemorrhage. Mild global volume loss. Prominence of the ventricles likely related to cortical volume loss and similar to the prior exams. No significant subcortical or periventricular white matter hypodensity. There is no sinus or mastoid fluid. The orbits are unremarkable. There is no acute fracture. IMPRESSION: 1. No acute intracranial hemorrhage or skull fracture. Mild global atrophy. This document has been electronically signed by: Miesha Sol MD on 02/04/2025 06:53:42
--- NOTE | ~2025-02-04 | XR_ITS ---
CLINICAL HISTORY: sob, missed dialysis --- Additional Notes or Special Instructions: lab [id number] 1 view chest x-ray Comparison: 01/22/2025 01:16 PM EDT: CR: XR CHEST 2V (12:16 PM CDT), 01/18/2025 Findings: Portions of the exam are obscured by overlying material. There is bilateral consolidation, possible pneumonia or pulmonary edema. Heart size is normal. No acute fracture. IMPRESSION: 1. Bilateral consolidation, differential considerations noted. This document has been electronically signed by: Ildefonso Alonzo MD on 02/04/2025 05:41:13
--- NOTE | ~2025-02-04 | CT_ITS ---
CLINICAL HISTORY: to look for source of infection Exam: CT Abdomen and Pelvis With IV Contrast Comparison: 07/11/2021. 11/04/2024 Findings: Above the diaphragm there are small posterior pleural effusions and posterior left lung base consolidations/pneumonia The liver density is homogeneous The gallbladder is enlarged. A small amount of sludge or small calculi are present in the gallbladder neck. The spleen is normal in size No pancreatic ductal dilatation No hydronephrosis. No urinary tract calculi or obstruction. A 2.2 cm left kidney upper pole cortical cyst is present. Normal bowel caliber No secondary signs of acute appendicitis No free fluid/free air No vascular abnormalities Partially filled urinary bladder with thickened bladder wall, 7 mm diameter and adjacent bladder increased fat density may be related to cystitis. The prostate is symmetrically enlarged, measuring 6.1 x 5.0 x 6 cm. No suspicious skeletal lesions. There is abdominal wall and mesenteric edema and small right colonic gutter fluid collection Impression : 1. Left lower lobe consolidation/pneumonia 2. Bilateral pleural effusions, mesenteric and abdominal wall edema may be due to multiple causes of fluid and electrolyte imbalance or abnormal hydrostatic pressure. 3. Prostatomegaly with increased thickness of urinary bladder wall compatible with cystitis. Correlate with urine analysis. 4. A radiopaque 5 mm diameter 2 point 6 cm in length foreign body is located in the distal esophagus, esophagogastric junction, retrospectively also present on chest CT from 02/04/2025, but not present on 11/04/2024 This document has been electronically signed by: Kash Parker MD on 02/05/2025 14:07:36
--- NOTE | ~2025-02-04 | CT_ITS ---
CLINICAL HISTORY: hypoxic, pna vs edema CT chest without contrast Comparison: CT/VT/SR - CT CHEST WO IV CON - 01/09/25 12:51 EDT Findings: Stable heart size. Heavy coronary calcium. No pericardial effusion. Mildly enlarged mediastinal lymph nodes. A subcarinal lymph node has a short axis dimension of 13 mm. The visualized thyroid and mediastinum are unremarkable. Patchy ground-glass consolidation bilaterally slightly greater on the right than the left. Small bilateral pleural effusions. Mild diffuse septal thickening in the background. No findings of fibrosis. Diffuse bronchial wall thickening. Gynecomastia. No significant axillary adenopathy. Gallstones seen within the upper abdomen. The bones are intact. IMPRESSION: 1. Patchy bilateral ground-glass opacity concerning for multifocal infection. There is mild diffuse septal thickening with small bilateral effusions which may indicate a component of underlying edema. 2. Heavy coronary calcium. 3. Cholelithiasis. 4. Mediastinal and supraclavicular adenopathy which may be reactive. Follow-up recommended. This document has been electronically signed by: Miesha Sol MD on 02/04/2025 07:00:30
--- NOTE | 2025-02-04 03:39 | ECG_ITS ---
Test Reason : SOB Blood Pressure : */* mmHG Vent. Rate : 87 BPM Atrial Rate : 87 BPM P-R Int : 146 ms QRS Dur : 84 ms QT Int : 400 ms P-R-T Axes : 51 14 60 degrees QTcB Int : 481 ms Normal sinus rhythm ST & T wave abnormality, consider lateral ischemia Abnormal ECG When compared with ECG of 22-Jan-2025 12:34, Non-specific change in ST segment in Inferior leads ST now depressed in Lateral leads Nonspecific T wave abnormality now evident in Inferior leads Referred By: Gardenia Flores Electronically Signed By: LEVI EVANS MD
--- NOTE | 2025-02-04 04:00 | PC.NURSE ---
RT to bedside upon initial arrival along with MD Flores, brought in by EMS with a Non-rebreather in place. pt is able to answer questions appropriately, Oriented x4. RT transitioned the patient from Non-rebreather mask to an oxymask at 15LPM and his O2 sat maintains low/mid 90s. pt endorses generalized pain to his body which he states is not outside of or more than his typical daily pains. RT currently at bedside to place the pt on CPap for additional support with the following settings 10 and 50%
--- NOTE | 2025-02-04 04:00 | ED.SOB ---
HPI - SOB/Dyspnea General Chief Complaint: Dyspnea Stated Complaint: SOB , missed dialysis, pneumonia x3 wks ago Time Seen by Provider: 02/04/25 03:32 Source: EMS Mode of arrival: EMS Limitations: other History of Present Illness ED Provider: Dr. Gardenia Flores HPI Narrative: Patient comes to the emergency room from home. According to EMS, patient had a mechanical fall getting out of bed with positive head strike and no loss of consciousness. Patient is not on blood thinners. Seems that patient was recently diagnosed with bilateral pneumonia 3 weeks ago. Patient just came back home a few days ago from a rehab. According to EMS, patient's oxygen saturation was in the low 80s. Patient's dialysis days were recently changed, no patient is supposed to go Tuesdays, and Saturdays. Patient has had dialysis only twice this week. Due today. Patient denies chest pain Related Data Home Medications ?Medication ?Instructions ?Recorded ?Confirmed atenolol 100 mg tablet 1 tab PO DAILY 07/11/21 01/22/25 blood sugar diagnostic (Belindayle 07/11/21 10/30/24 Lite Strips) dextroamphetamine-amphetamine 20 1 tab PO TID@0800,1400,1800 07/11/21 01/22/25 mg tablet levothyroxine 137 mcg tablet 1 tab PO DAILY@0600 07/11/21 01/22/25 pen needle, diabetic 31 gauge x 07/11/21 10/30/24/16 (BD Ultra-Fine Short Pen Needle) amlodipine 5 mg tablet 5 mg PO BID 09/03/23 01/22/25 atorvastatin 40 mg tablet 40 mg PO DAILY 02/22/24 01/22/25 sodium zirconium cyclosilicate 10 10 g PO SUTUTHSA@0900 06/19/24 01/22/25 gram oral powder packet (Lokelma) alprazolam 0.5 mg tablet 0.5 mg PO DAILY PRN anxiety attack 10/30/24 01/22/25 alprazolam 2 mg tablet 2 mg PO BID 10/30/24 01/22/25 insulin lispro 100 unit/mL See Protocol subcut TIDAC PRN 10/30/24 01/22/25 subcutaneous pen (Humalog KwikPen Blood Glucose (U-100) Insulin) vitamin D3 25 mcg (1,000 unit)-vit 1 tab PO SUTUTHSA@0900 11/02/24 01/22/25 K2 90 mcg disintegrating tablet losartan 100 mg tablet 100 mg PO DAILY 01/09/25 01/22/25 sevelamer carbonate 800 mg tablet 1,600 mg PO TIDWM 01/09/25 01/22/25 albuterol sulfate 2.5 mg/3 mL 2.5 mg inhalation Q6H PRN Wheezing 01/18/25 01/22/25 (0.083 %) solution for nebulization albuterol sulfate 90 mcg/actuation 2 puff inhalation Q6H PRN 01/18/25 01/22/25 aerosol inhaler (Ventolin HFA) Shortness Of Breath Or Wheezing calcium carbonate (Tums) 200 mg PO TID PRN UPSET STOMACH 01/18/25 01/22/25 cholecalciferol (vitamin D3) 125 125 mcg PO DAILY 01/18/25 01/22/25 mcg (5,000 unit) tablet (Vitamin D3) insulin glargine 100 unit/mL 10 unit subcut BEDTIME 01/18/25 01/22/25 subcutaneous solution (Lantus U-100 Insulin) melatonin 5 mg tablet 5 mg PO BEDTIME PRN Insomnia 01/18/25 01/22/25 quetiapine 25 mg tablet (Seroquel) 25 mg PO BID PRN Agitation 01/18/25 01/22/25 sevelamer carbonate 800 mg tablet 800 mg PO DAILY PRN SNACKS 01/18/25 01/22/25 vitamin B complex and vitamin C 1 cap PO DAILY 01/18/25 01/22/25 no.20-folic acid 1 mg capsule Previous Rx's ?Medication ?Instructions ?Recorded hydromorphone 4 mg tablet 4 mg PO Q3H PRN Severe Pain (Scale 01/12/25 Score 7-10) #20 tabs omeprazole 40 mg capsule,delayed 40 mg PO BID 3 months #180 caps 01/25/25 release sucralfate 1 gram tablet (Carafate) 1 g PO BID 2 weeks #28 tabs 01/25/25 Allergies Allergy/AdvReac Type Severity Reaction Status Date / Time Penicillins [PENICILLINS] Allergy Unknown RASH Verified 02/04/25 03:51 tramadol [From ULTRAM] Allergy Unknown RASH Verified 02/04/25 03:51 trazodone [TRAZODONE] Allergy Unknown PRIAPISM Verified 02/04/25 03:51 risperidone [RISPERIDONE] AdvReac Severe dizzy, EPS Verified 02/04/25 03:51 Review of Systems Review of Systems: Yes Other [facility] Past Medical History Medical History Occult blood positive stool Anemia Internal jugular vein thrombosis Abnormality of gait ESRD needing dialysis End stage kidney disease Secondary hyperparathyroidism (of renal origin) Anemia in chronic kidney disease DONIS (acute kidney injury) End stage renal disease on dialysis Diabetes Kidney failure HTN (hypertension) Social History Social History Household Members: Spouse Housing: House Are you a primary customer care coordinator to a significant other at home: No Do you presently have visiting nurse or other home services: No Alcohol intake: never Comment: sitter in place Patient Tobacco Use Status: Never used Tobacco Cigarette Packs Per Day: 0 Cigarettes Per Day: 0.0 Years Smoked: NA Smoked in Last 30 Days: No e-Cigarette/Vaping Use: Never Used Second Hand Smoke Exposure: No Use of substances other than those prescribed or required for medical reasons: No Advance Directives Date on File: 09/07/23 service: No Physical Exam Vital Signs: Vital Signs: Last Vital Signs Temp 100.9 F H 02/04/25 05:43 Pulse 87 02/04/25 05:54 Resp 27 H 02/04/25 05:54 BP 155/74 H 02/04/25 05:54 Pulse Ox 95 02/04/25 05:54 O2 Del Method Oxymask 02/04/25 05:54 O2 Flow Rate 12 02/04/25 05:54 FiO2 50 02/04/25 05:43 Oxygen Flow Rate 15 02/04/25 03:44 BMI result Body Mass Index 26.6 Const: Other: Appearance: Alert. Somnolent, wakes up easily Eyes: Pupils equal, round and reactive to light. ENT: Pharynx normal. Neck: Normal inspection. Neck supple. No lymph nodes noted. No crepitus CVS: Normal heart rate and rhythm. Pulses normal. Normal S1 and S2 Respiratory: Decreased bilateral breath sounds, no wheezing Abdomen: Soft and nontender. No rigidity. No distention. Skin: Skin warm and dry. Normal skin color. Normal skin turgor. Extremities: No lower extremity edema. No Lacerations. No Rash Neuro: Somnolent, unable to participating cranial nerve assessment Psych: Somnolent Course Course Course Narrative: According to EMS, patient had pneumonia 3 weeks ago. Patient states that he went yesterday to dialysis and the new change of his schedule is supposed to happen next week Patient is on BiPAP at this time All of patient's labs pending Medications Administered Generic Name Dose Route Start Last Admin Trade Name Freq PRN Reason Stop Dose Admin Sodium Chloride 500 mls @ 150 mls/hr 02/04/25 04:21 02/04/25 05:16 Ns IVCONT 02/04/25 07:40 150 mls/hr .[id number] ONE Administration Discontinued Medications Generic Name Dose Route Start Last Admin Trade Name Freq PRN Reason Stop Dose Admin Ceftriaxone Sodium 1 gm 02/04/25 04:15 02/04/25 04:44 Ceftriaxone Sodium 1 Gm Vial IVPUSH 02/04/25 04:16 1 gm ONCE ONE Administration Azithromycin 500 mg/ Sodium 250 mls @ 125 mls/hr 02/04/25 04:17 02/04/25 04:44 Chloride IV 02/04/25 06:16 125 mls/hr ONCE ONE Administration Medical Decision Making Medical Decision Making [facility] Narrative: My interpretation of labs: Patient's white blood cell count 11.8, hemoglobin 8.2, hematocrit 23.8, platelets 187. Last time that the patient was here in the hospital, patient needed blood transfusions for GI bleed/anemia. Chemistry at baseline, creatinine 5.35 which is better than last time that patient has been here, lactic acid 1.5. Urinalysis pending. Serology test positive for influenza A. At this time, patient is not able to tolerate p.o. medications, Tamiflu not given Patient had an endoscopy on 01/24/2025 showing esophagitis, gastritis, duodenitis, diverticulitis and internal hemorrhoids. 04:15: Patient is empirically being treated with azithromycin and ceftriaxone. Patient is being giving IV fluids. However, patient is a dialysis patient and is at high risk of fluid overload. It is also possible that patient may need a blood transfusion. Rectal temperature at 05:45 is 100.9. Patient's blood pressure remained stable at 159/74, lactic 1.5, no LFTs abnormalities At this time, 550: Chest x-ray shows bilateral pneumonia versus pulmonary edema. However, patient did have bilateral pneumonia couple of weeks ago. This finding may be residual from his previous admission for pneumonia. Will obtain CT scan of the chest CT scan of the head and cervical spine still pending. Patient was weaned off CPAP, patient is now on OxyMask, saturating in the mid 90s. Overall, patient being admitted for influenza, CHF, pneumonia Patient received IV antibiotics, small amount of fluids due to high risk of fluid overload I discussed the patient with Dr. Tai from the Medicine team, patient being admitted Differential Diagnosis Differential Diagnoses: The differential diagnosis associated with the presentation includes (CHF, pneumonia, pulmonary edema) Admission/Observation Consideration of admission/observation: Escalation of care including admission/observation considered Consult Healthcare Provider Management of the patient was discussed with: Hospitalist Lab Data MDM Lab Attestation statement: I reviewed the patient's lab results. 02/04/25 04:04 02/04/25 04:04 Labs: Lab Results 02/04/25 02/04/25 02/04/25 Range/Units 04:04 04:08 04:13 WBC 11.8 H (4.8-10.8) X10*3/uL RBC 2.64 L (4.60-5.80) X10*6/uL Hgb 8.2 L (14.0-18.0) g/dl Hct 23.8 L (42.0-52.0) % MCV 90.2 (80.0-98.0) fL MCH 31.1 (27.0-33.0) pg MCHC 34.5 (31.0-36.0) g/dl RDW 15.1 (11.0-16.0) % Plt Count 187 D (160-400) X10*3/uL MPV 9.7 (9.4-12.4) fL Immature Gran % (Auto) 0.4 (0.0-0.4) % Neut % (Auto) 80.2 H (45-73) % Lymph % (Auto) 8.4 L (20-40) % Meigs % (Auto) 6.6 (2-11) % Eos % (Auto) 4.0 (0-4) % Baso % (Auto) 0.4 (0-2) % Lymph # (Auto) 1.0 L (1.2-4.9) X10*3/uL Meigs # (Auto) 0.8 (0.1-1.2) X10*3/uL Eos # (Auto) 0.5 H (0.0-0.4) X10*3/uL Baso # (Auto) 0.1 (0.0-0.2) X10*3/uL Abs Immat Gran (auto) 0.05 H (0.00-0.03) X10*3/uL Absolute Neuts (auto) 9.5 H (2.0-8.3) x10*3/uL Absolute Nucleated RBC 0.000 (0.0-0.012) X10*3/uL Nucleated RBC % (auto) 0.0 (0.0-0.2) /100WBC VBG pH 7.46 H (7.32-7.43) VBG pCO2 53 mmHg VBG pO2 29 mmHg VBG HCO3 38 H (22-26) mmol/L VBG O2 Saturation 46.0 % VBG Base Excess 12.9 mmol/L Sodium 140 (135-145) mmol/L Potassium 4.4 (3.3-5.1) mmol/L Chloride 100 (96-108) mmol/L Carbon Dioxide 27 (22-29) mmol/L Anion Gap 17 (12-20) BUN 13 (9-16) mg/dL Creatinine 5.35 H* (0.5-1.4) mg/dL Estim Creat Clear Calc 11.4 Estimated GFR 11 Random Glucose 97 (60-115) mg/dL Lactic Acid 1.5 (0.5-2.0) mmol/L Calcium 8.6 D (8.4-10.2) mg/dL Magnesium 2.0 (1.6-2.6) mg/dL Total Bilirubin 0.6 (0.0-1.0) mg/dL Direct Bilirubin 0.2 (0.0-0.5) mg/dL AST 22 (5-37) U/L ALT 11 (0-40) U/L Alkaline Phosphatase 80 (39-117) U/L Troponin I High Sens 31.0 D (<3.5-35.0) ng/L B-Natriuretic Peptide 2775 H (<100) pg/mL Total Protein 6.6 (6.5-8.0) g/dL Albumin 3.7 (3.5-5.0) g/dL Stool Occult Blood (NEGATIVE) Influenza Type A (PCR) POSITIVE A (Negative) Influenza Type B (PCR) NEGATIVE (Negative) RSV RNA Qual (PCR) NEGATIVE (Negative) SARS-CoV-2 RNA (RT-PCR) NEGATIVE (Negative) 02/04/25 Range/Units 05:45 WBC (4.8-10.8) X10*3/uL RBC (4.60-5.80) X10*6/uL Hgb (14.0-18.0) g/dl Hct (42.0-52.0) % MCV (80.0-98.0) fL MCH (27.0-33.0) pg MCHC (31.0-36.0) g/dl RDW (11.0-16.0) % Plt Count (160-400) X10*3/uL MPV (9.4-12.4) fL Immature Gran % (Auto) (0.0-0.4) % Neut % (Auto) (45-73) % Lymph % (Auto) (20-40) % Meigs % (Auto) (2-11) % Eos % (Auto) (0-4) % Baso % (Auto) (0-2) % Lymph # (Auto) (1.2-4.9) X10*3/uL Meigs # (Auto) (0.1-1.2) X10*3/uL Eos # (Auto) (0.0-0.4) X10*3/uL Baso # (Auto) (0.0-0.2) X10*3/uL Abs Immat Gran (auto) (0.00-0.03) X10*3/uL Absolute Neuts (auto) (2.0-8.3) x10*3/uL Absolute Nucleated RBC (0.0-0.012) X10*3/uL Nucleated RBC % (auto) (0.0-0.2) /100WBC VBG pH (7.32-7.43) VBG pCO2 mmHg VBG pO2 mmHg VBG HCO3 (22-26) mmol/L VBG O2 Saturation % VBG Base Excess mmol/L Sodium (135-145) mmol/L Potassium (3.3-5.1) mmol/L Chloride (96-108) mmol/L Carbon Dioxide (22-29) mmol/L Anion Gap (12-20) BUN (9-16) mg/dL Creatinine (0.5-1.4) mg/dL Estim Creat Clear Calc Estimated GFR Random Glucose (60-115) mg/dL Lactic Acid (0.5-2.0) mmol/L Calcium (8.4-10.2) mg/dL Magnesium (1.6-2.6) mg/dL Total Bilirubin (0.0-1.0) mg/dL Direct Bilirubin (0.0-0.5) mg/dL AST (5-37) U/L ALT (0-40) U/L Alkaline Phosphatase (39-117) U/L Troponin I High Sens (<3.5-35.0) ng/L B-Natriuretic Peptide (<100) pg/mL Total Protein (6.5-8.0) g/dL Albumin (3.5-5.0) g/dL Stool Occult Blood NEGATIVE (NEGATIVE) Influenza Type A (PCR) (Negative) Influenza Type B (PCR) (Negative) RSV RNA Qual (PCR) (Negative) SARS-CoV-2 RNA (RT-PCR) (Negative) Independent Interpretation I performed an independent interpretation of an: Plain X-Ray and CT Scan Radiology Impression Discussion of test interpretation with radiology: I have reviewed the radiologist's reading. Radiologist Impression: No acute intracranial hemorrhage or skull fracture. Mild global atrophy. No evidence of acute fracture or malalignment. Right lower cervical/supraclavicular adenopathy. 1. Patchy bilateral ground-glass opacity concerning for multifocal infection. There is mild diffuse septal thickening with small bilateral effusions which may indicate a component of underlying edema. 2. Heavy coronary calcium. 3. Cholelithiasis. 4. Mediastinal and supraclavicular adenopathy which may be reactive. Follow-up recommended. Critical Care Time Critical Care Time Critical Care Time: Yes Total Critical Care Time: 90 Attestation: I have personally provided critical care time. Time includes review of lab data, radiology results, discussion with consultants, and monitoring for potential decompensation. Intervention performed as documented. Discharge Plan Discharge Clinical Impression: Pneumonia, CHF (congestive heart failure), Influenza A Patient Disposition: Admitted As Inpatient Print Language: [place] Sepsis Bolus Exclusion Sepsis Bolus Exclusion CHF/Renal Failure This patient met severe sepsis criteria due to the following condition(s):: Documentation of septic shock (Patient is on CPAP) In my clinical judgement the administration of 30 ml/kg of crystalloid would be detrimental to this patient due to the patient's following conditions:: Concern for fluid overload Replace the 30 mls/kg with (Zero amount not acceptable and all fluids for severe sepsis must be given at GREATER than 125 mls/hr) Crystalloids amount given in mls: (rate must be at least 150cc/hr): 150 Colloids amount given in mls:: 0
[2025-02-04 04:14] LABS: Basophils Absolute Auto 0.1 X10*3/uL (0.0-0.2); Basophils Percent Auto 0.4 % (0-2); Eosinophils Absolute Auto 0.5 X10*3/uL (0.0-0.4); Hematocrit 23.8 % (42.0-52.0); Hemoglobin 8.2 g/dl (14.0-18.0); Imm Gran Abs Auto 0.05 X10*3/uL (0.00-0.03); Imm Gran Pct Auto 0.4 % (0.0-0.4); Lymphocytes Percent Auto 8.4 % (20-40); MANUAL DIFF FLAG NO; Mean Corpuscular HGB Conc 34.5 g/dl (31.0-36.0); Mean Corpuscular Hemoglobin 31.1 pg (27.0-33.0); Mean Corpuscular Volume 90.2 fL (80.0-98.0); Mean Platelet Volume 9.7 fL (9.4-12.4); Monocytes Absolute Auto 0.8 X10*3/uL (0.1-1.2); Monocytes Percent Auto 6.6 % (2-11); Neutrophils Absolute Auto 9.5 x10*3/uL (2.0-8.3); Neutrophils Percent Auto 80.2 % (45-73); Platelet Count 187 X10*3/uL (160-400); Red Blood Count 2.64 X10*6/uL (4.60-5.80); Red Cell Distribution Width 15.1 % (11.0-16.0); White Blood Count 11.8 X10*3/uL (4.8-10.8)
[2025-02-04 04:15] LABS: Venous Blood Gas Refer to POC result
[2025-02-04 04:19] LABS: VBG Base Excess 12.9 mmol/L; VBG HCO3 38 mmol/L (22-26); VBG pCO2 53 mmHg; VBG pH 7.46 (7.32-7.43); VBG pO2 29 mmHg
[2025-02-04 04:27] LABS: Lactic Acid 1.5 mmol/L (0.5-2.0)
[2025-02-04 04:34] LABS: B Type Natriuretic Peptide 2775 pg/mL (<100)
[2025-02-04 04:36] LABS: Alanine Aminotransferase 11 U/L (0-40); Albumin Level 3.7 g/dL (3.5-5.0); Alkaline Phosphatase 80 U/L (39-117); Anion Gap 17 (12-20); Aspartate Amino Transferase 22 U/L (5-37); Bilirubin Direct 0.2 mg/dL (0.0-0.5); Bilirubin Total 0.6 mg/dL (0.0-1.0); Blood Urea Nitrogen 13 mg/dL (9-16); Calcium 8.6 mg/dL (8.4-10.2); Carbon Dioxide 27 mmol/L (22-29); Chloride 100 mmol/L (96-108); Creatinine Clr Calc Pharmacy 11.4; Estimated Glomerular Filt Rate 11; Glucose Random 97 mg/dL (60-115); Potassium 4.4 mmol/L (3.3-5.1); Sodium 140 mmol/L (135-145); Total Protein 6.6 g/dL (6.5-8.0)
[2025-02-04] MEDS: cefTRIAXone sodium 1 GM VIAL IVPUSH (04:44)
[2025-02-04] MEDS: Azithromycin 500 MG in 0.9 % Sodium Chloride 250 ML 125 MG IV (04:44)
[2025-02-04 04:51] LABS: Influenza A PCR POSITIVE (Negative); Influenza B PCR NEGATIVE (Negative); Resp Syncy Virus RNA Qual PCR NEGATIVE (Negative); SARS COV2 PCR INHOUSE NEGATIVE (Negative)
[2025-02-04] MEDS: 0.9 % Sodium Chloride 500 ML 150 ML IVCONT (05:16)
[2025-02-04 05:50] LABS: OBS Int Ctl Valid YES; OBS1 NEGATIVE (NEGATIVE)
--- OUTSIDE RECORDS SUMMARY | 2025-02-04 07:25 | XMS_ITS | Encounter Summary ---
Author Organization [facility], Address [address] [place] [address] Phone Care Team Providers Care Ergonomics Consultant Name Role Phone Matias Tan MD Primary Care Provider [phone]- [phone] Reason for Visit * Reason Comments Med Refill Encounter Details Date Type Department Care Team (Late st Contact Info) Description 09/25/2023 Refill [facility] [address] [place] [phone] Denys Mueller MD [address] [place] [address] Social History Tobacco Use Types [...] visit [facility] [address] [place] [phone] documented as of this encounter Visit Diagnoses Not on filedocumented in this encounter Care Teams Ergonomics Consultant Relationship Specialty Start Date End Date Matias Tan MD [address] [place] [address] PCP - General Family Medicine 10/24/19 documented as of this encounter
--- OUTSIDE RECORDS SUMMARY | 2025-02-04 07:26 | XMS_ITS | Encounter Summary ---
Author Organization [facility], Address [address] [place] [address] Phone Care Team Providers Care Industrial Servicer Name Role Phone Matias Tan MD Primary Care Provider [phone]- [phone] Encounter Details Date Type Department Care Team (Late st Contact Info) Description 03/11/2023 Documentation Only [facility] [address] [place] [phone] Jose Luis Amezcua MD Social History Tobacco [...] visit [facility] [address] [place] [place] [phone] documented as of this encounter Visit Diagnoses Not on filedocumented in this encounter Care Teams Industrial Servicer Relationship Specialty Start Date End Date Matias Tan MD [address] [place] [address] PCP - General Family Medicine 10/24/19 documented as of this encounter
--- OUTSIDE RECORDS SUMMARY | 2025-02-04 07:26 | XMS_ITS | Encounter Summary ---
Author Organization [facility] Address [address] [place] [address] Care Team Providers Care [employer] Buffer Name Role Phone Yulia Smart MD Primary Care Provider Encounter Details Date Type Department Care Team (Late st Contact Info) Description 01/13/2025 Lab Requisition [facility] - Main Lab [address] [facility] [place] [address] Yulia Smart MD [address] [place] [id number] Encounter for other general examination Social History [...] K/mcL LAB HEMETOLOGY METHOD 01/13/2025 11:17 AM [facility] RBC 3.40(L) 4.50 - 5.50 M/mcL LAB HEMETOLOGY METHOD 01/13/2025 11:17 AM [facility] Hemoglobin 10.6(L) 13.5 - 17.5 g/dL LAB HEMETOLOGY METHOD 01/13/2025 11:17 AM [facility] Hematocrit 30.8(L) 42.0 - 54.0 % LAB HEMETOLOGY METHOD 01/13/2025 11:17 AM [facility] MCV 89.8 79.0 - 98.0 FL LAB HEMETOLOGY METHOD 01/13/2025 11:17 AM [facility] MCH 30.9 27.0 - 32.0 pcg LAB HEMETOLOGY METHOD 01/13/2025 11:17 AM [facility] MCHC 34.4 32.0 - 37.0 g/dL LAB HEMETOLOGY METHOD 01/13/2025 11:17 AM [facility] RDW 14.5 11.0 - 15.0 % LAB HEMETOLOGY METHOD 01/13/2025 11:17 AM [facility] Platelets 105(L) 130 - 400 K/mcL LAB HEMETOLOGY METHOD 01/13/2025 11:17 AM [facility] MPV 11.5(H) 7.0 - 11.0 FL LAB HEMETOLOGY METHOD 01/13/2025 11:17 AM [facility] NRBC 0.0 <1.0 % LAB HEMETOLOGY METHOD 01/13/2025 11:17 AM [facility] NRBC Absolute 0.00 <0.10 K/mcL LAB HEMETOLOGY METHOD 01/13/2025 11:17 AM [facility] Neutrophils Relative 49.1 % LAB HEMETOLOGY METHOD 01/13/2025 11:17 AM [facility] Lymphocytes Relative 31.3 % LAB HEMETOLOGY METHOD 01/13/2025 11:17 AM [facility] Monocytes Relative 13.0 % LAB HEMETOLOGY METHOD 01/13/2025 11:17 AM [facility] Eosinophils Relative 6.0 % LAB HEMETOLOGY METHOD 01/13/2025 11:17 AM [facility] Basophils Relative 0.4 % LAB HEMETOLOGY METHOD 01/13/2025 11:17 AM [facility] Immature Granulocytes Relative 0.2 % LAB HEMETOLOGY METHOD 01/13/2025 11:17 AM [facility] Neutrophils Absolute 2.38 1.50 - 7.00 K/mcL LAB HEMETOLOGY METHOD 01/13/2025 11:17 AM [facility] Lymphocytes Absolute 1.52 1.00 - 5.00 K/mcL LAB HEMETOLOGY METHOD 01/13/2025 11:17 AM [facility] Monocytes Absolute 0.63 0.20 - 1.00 K/mcL LAB HEMETOLOGY METHOD 01/13/2025 11:17 AM [facility] Eosinophils Absolute 0.29 0.00 - 0.50 K/mcL LAB HEMETOLOGY METHOD 01/13/2025 11:17 AM [facility] Basophils Absolute 0.02 0.00 - 0.20 K/mcL LAB HEMETOLOGY METHOD 01/13/2025 11:17 AM [facility] Immature Granulocytes Absolute 0.01 0.00 - 0.03 K/mcL LAB HEMETOLOGY METHOD 01/13/2025 11:17 AM [facility] Blood Venous blood specimen / Unknown Venipuncture / Unknown 01/13/2025 5:26 AM EDT 01/13/2025 10:00 AM EDT us Yulia Smart MD LAB BLOOD ORDERABLES Final Resu lt Performing Organization Address City/[facility]/ZIP Co de Phone Number [facility] [address] [place] [address], [place] [phone] * (ABNORMAL) Magnesium (01/13/2025 5:26 AM EDT) Magnesium 1.8(L) 1.9 - 2.6 mg/dL LAB CHEMISTRY METHOD 01/13/2025 12:11 PM EDT [facility] Blood Venous blood specimen / Unknown Venipuncture / Unknown 01/13/2025 5:26 AM EDT 01/13/2025 10:00 AM EDT us Yulia Smart MD LAB BLOOD ORDERABLES Final Resu lt Performing Organization Address [facility]/ZIP Nc de Phone Number [facility] [address] [place] [address], [place] [phone] * Hemoglobin A1c (01/13/2025 5:26 AM EDT) Hemoglobin A1C 5.6 <6.5 % LAB CHEMISTRY METHOD 01/13/2025 12:43 PM EDT [facility] Mean Bld Glu Estim. 114 mg/dL LAB CHEMISTRY METHOD 01/13/2025 12:43 PM EDT [facility] Blood Venous blood specimen / Unknown Venipuncture / Unknown 01/13/2025 5:26 AM EDT 01/13/2025 10:00 AM EDT us Yulia Smart MD LAB BLOOD ORDERABLES Final Resu lt Performing Organization Address City/[facility]/ZIP Co de Phone Number [facility] [address] [place] [address], [place] [phone] * (ABNORMAL) Comprehensive metabolic panel (01/13/2025 5:26 AM EDT) Sodium 129(L) 133 - 145 mmol/L LAB CHEMISTRY METHOD 01/13/2025 12:12 PM [facility] Potassium 3.6 3.5 - 5.5 mmol/L LAB CHEMISTRY METHOD 01/13/2025 12:12 PM [facility] Chloride 85(L) 96 - 110 mmol/L LAB CHEMISTRY METHOD 01/13/2025 12:12 PM [facility] CO2 28 21 - 32 mmol/L LAB CHEMISTRY METHOD 01/13/2025 12:12 PM [facility] Anion Gap 16(H) 3 - 11 LAB CHEMISTRY METHOD 01/13/2025 12:12 PM [facility] Glucose 90 70 - 100 mg/dL LAB CHEMISTRY METHOD 01/13/2025 12:12 PM [facility] BUN 77(H) 5 - 25 mg/dL LAB CHEMISTRY METHOD 01/13/2025 12:12 PM [facility] Creatinine 10.50(H) 0.70 - 1.30 mg/dL LAB CHEMISTRY METHOD 01/13/2025 12:12 PM [facility] eGFR 5(L) >=60 mL/min/1 .73m2 LAB CHEMISTRY METHOD 01/13/2025 12:12 PM [facility] Comment:Calculation based on the??Chronic Kidney Disease Epidemiology Collaboration (CKD-EPI) equation refit??without adjustment for race. BUN/Creatinine Ratio 7.3 LAB CHEMISTRY METHOD 01/13/2025 12:12 PM [facility] Calcium 7.2(L) 8.5 - 10.5 mg/dL LAB CHEMISTRY METHOD 01/13/2025 12:12 PM [facility] AST (SGOT) 76(H) 10 - 42 unit/L LAB CHEMISTRY METHOD 01/13/2025 12:12 PM EDT [facility] ALT (SGPT) 36 10 - 60 unit/L LAB CHEMISTRY METHOD 01/13/2025 12:12 PM EDT [facility] Alkaline Phosphatase 65 42 - 121 unit/L LAB CHEMISTRY METHOD 01/13/2025 12:12 PM EDT [facility] Total Protein 5.9(L) 6.0 - 8.0 g/dL LAB CHEMISTRY METHOD 01/13/2025 12:12 PM EDT [facility] Albumin 2.9(L) 3.2 - 5.0 g/dL LAB CHEMISTRY METHOD 01/13/2025 12:12 PM [facility] Total Bilirubin 0.4 0.0 - 1.4 mg/dL LAB CHEMISTRY METHOD 01/13/2025 12:12 PM EDT [facility] Blood Venous blood specimen / Unknown Venipuncture / Unknown 01/13/2025 5:26 AM EDT 01/13/2025 10:00 AM EDT us Yulia Smart MD LAB BLOOD ORDERABLES Final Resu lt [facility] [address] [place] [address], [place] [phone] documented in this encounter Visit Diagnoses Diagnosis Encounter for other general examination documented in this encounter Care Teams [employer] Relationship Specialty Start Date End Date Yulia Smart MD [address] [place] [id number] PCP - General Hospitalist Medicine 01/13/25 documented as of this encounter
--- OUTSIDE RECORDS SUMMARY | 2025-02-04 07:26 | XMS_ITS | Encounter Summary ---
Author Organization [facility] [place], Address [address] [place] [address] Phone Care Team Providers Care Campus Chaplain Name Role Phone Matias Tan MD Primary Care Provider +1- [phone] Reason for Visit * Reason Onset Date Comments Med Refill 06/08/2022 Encounter Details Date Type Department Care Team (Late st Contact Info) Description 06/08/2022 Refill [facility], [address] [place] [phone] Guanako Mercer MD [address] [facility] [place] [address] Social History Tobacco Use Types Packs/Day Years [...] visit [facility] [place] - [facility] [address] [place] [address] documented as of this encounter Visit Diagnoses Not on filedocumented in this encounter Care Teams Campus Chaplain Relationship Specialty Start Date End Date Matias Tan MD [address] [facility] [place] [address] PCP - General Family Medicine 10/24/19 documented as of this encounter
--- OUTSIDE RECORDS SUMMARY | 2025-02-04 07:26 | XMS_ITS | Clinical Summary ---
Author Organization [facility], Address [address] [place] [address] Phone Care Team Providers Care Manufacturing Recruiter Name Role Phone Matias Tan MD Primary Care Provider +1- [phone] Allergies Active Allergy Reactions Criticality Noted Date [...] HOURS NEEDED FOR PAIN 2 Active B Vstsocw-U-Bvgvj Acid (Dialyvite 800) 0.8 MG tablet Take [...] Encounters Date Type Department Care Team Description 01/31/2025 Treatment [facility] [place] [address] [place] [address] Guanako Mercer MD End stage renal disease; Dependence on renal dialysis 01/04/2025 Orders Only [facility] [address] [address] Denys Mueller MD 01/02/2025 Orders Only [facility] [address] [address] Denys Mueller MD 01/02/2025 Treatment [facility] [place] [address] [place] [address] Tiffani Olson FNP-C End stage renal disease; Dependence on renal dialysis 12/28/2024 Treatment [facility], [address] [place] [address] Tiffani Olson FNP-Taniya End stage renal disease; Dependence on renal dialysis 12/28/2024 Refill [facility] [address] [address] Sawyer Davis MD 12/26/2024 Orders Only [facility] [address] [address] Denys Mueller MD 12/23/2024 Treatment [facility] [place] [address] [place] [address] Tiffani Olson FNP-C End stage renal disease; Dependence on renal dialysis 12/21/2024 Orders Only [facility] [address] [address] Denys Mueller MD 12/19/2024 Orders Only [facility] [address] [address] Denys Mueller MD 12/16/2024 Treatment [facility] [place] [address] [place] [address] Sawyer Davis MD End stage renal disease; Dependence on renal dialysis 12/14/2024 Orders Only [facility] [address] [address] Denys Mueller MD 12/14/2024 Treatment [facility] [place] [address] [place] [address] Tiffani Olson, SLEEVE SETTER-C 12/13/2024 Treatment [facility] [place] [address] [place] [address] Missy Izquierdo APRN 12/12/2024 Orders Only [facility] [address] [address] Denys Mueller MD 12/07/2024 Orders Only [facility] [address] [address] Denys Mueller MD 12/07/2024 Treatment [facility] [place] PO [address]OX [facility] [place] [place] [address] Tiffani Olson SLEEVE SETTER-C 11/30/2024 Orders Only [facility] [address] [address] Denys Mueller MD 11/23/2024 Orders Only [facility] [address] [address] Denys Mueller MD 11/23/2024 Treatment [facility] [place] [address] [place] [address] Tiffani Olson FNP-C 11/16/2024 Treatment [facility] [place] [address] [place] [address] Tiffani Olson SLEEVE SETTER-C 11/16/2024 Telephone [facility] [address] [place] [address] Tanya Chi post op call 11/15/2024 9:00 AM EST Procedure visit [facility] [address] [place] [address] Ferdinand Monroe MD End stage renal disease (HCC) (Primary Dx); Stenosis of other vascular prosthetic devices, implants and grafts, initial encounter (HCC) 11/14/2024 Telephone [facility] [address] [place] [address] [place] [address] Kristen Koo 11/09/2024 Orders Only [facility] [address] [address] Denys Mueller MD 11/09/2024 Treatment [facility] [address] [place] [address] Tiffani Olson FNP-C 11/07/2024 Orders Only [facility] [address] [address] Denys Mueller MD from Last 3 Months Immunizations Immunization Administration Dates Next Due Influenza Whole 08/21/2010 [...] visit [facility] [place], - [facility] Center [address] [place] [address] [place] [address] Health Maintenance Due Date Last [...] 09/09/2021, 08/22/2020, Additional history exists Pneumococcal Vaccine: 50+ Years Completed 09/09/2021, 09/21/2020, 08/21/2010 Pneumococcal Vaccine: Peds ( 0 to 5 Years) and At-Risk Patients (6 to 49 Years) Discontinued 09/09/2021, 09/21/2020, 08/21/2010 Procedures Procedure Name Priority [...] 11/07/2024 HEMATOLOGY Routine 11/07/2024 CHEMISTRY Routine 11/07/2024 SPECIAL CHEMISTRY Routine 05/04/2024 from Last 3 Months or Most Recently Relevant to Health Maintenance Results * IMMUNO CHEMISTRY (01/04/2025) Only the most recent of3 resultswithin the time period is included. Hep B Surface Ag Negative Negative [facility] 01/04/2025 01/05/2025 9:1 3 AM EDT Narrative Resulting Agency Comment Specimen source: Serum us Denys Mueller MD LAB BLOOD ORDERABLES Final Re sult [facility] See order comments or contact performing lab Unknown, [place] * (ABNORMAL) HEMATOLOGY (01/04/2025) Only the most recent of10 resultswithin the time period is included. Pathologist [facility] Hemoglobin 11.2(L) 14.0 - 18.0 g/dL [facility] Hemoglobin x 3 33.6(L) 42.0 - 54.0 % [facility] 01/04/2025 01/05/2025 8:5 0 AM EDT Narrative [facility] - 01/05/2025 Unless otherwise specified, test(s) performed at: [facility], [address] [place] [address] MEMBERSHIP COORDINATOR: Blane Ramsay M.D. For any questions, please call customer service at FREQUENCY:MONTHLY Resulting Agency Comment Specimen source: Blood Denys Mueller MD LAB BLOOD ORDERABLES Final [facility] See order comments or contact performing lab Unknown, [place] * (ABNORMAL) [facility] (01/04/2025) Only the most recent of13 resultswithin the time period is included. Creatinine [...] Saturation (TSat) 56(H) 20 - 55 % [facility] 01/04/2025 01/05/2025 9:1 3 AM EDT Narrative [facility] - 01/05/2025 Unless otherwise specified, test(s) performed at: [facility], [address] [place], [place] [id number] MEMBERSHIP COORDINATOR: Blane Ramsay M.D. For any questions, please call customer service at FREQUENCY:MONTHLY Resulting Agency Comment Specimen source: Serum Denys Mueller MD LAB BLOOD ORDERABLES Final Re sult Performing Organization Address City/[facility]/ZIP Co de Phone Number [facility] See order comments or contact performing lab Unknown, [place] * [facility] (12/21/2024) Only the most recent of2 resultswithin the time period is included. % Urea Reduction 79 65 - 80 % [facility] 12/21/2024 12/23/2024 2:2 1 PM EST Narrative Resulting Agency Comment Specimen source: Plasma Denys Mueller MD LAB BLOOD ORDERABLES Final Re sult Performing Organization Address [facility] de Phone Number [facility] See order comments or contact performing lab Unknown, [place] * POST CHEMISTRY (12/21/2024) Only the most recent of2 resultswithin the time period is included. BUN Post Dialysis 13 6 - 19 mg/dL [facility] 12/21/2024 12/23/2024 2:2 1 PM EST Narrative [facility] - 12/23/2024 Unless otherwise specified, test(s) performed at: [facility], [address] [place] [address] MEMBERSHIP COORDINATOR: Blane Ramsay M.D. For any questions, please call customer service at FREQUENCY:OTHER Resulting Agency Comment Specimen source: Plasma Denys Mueller MD LAB BLOOD ORDERABLES Final Re sult Performing Organization Address City/[facility]/ZIP Co de Phone Number [facility] See order comments or contact performing lab Unknown, [place] * [facility] Lab Results (12/21/2024) Only the most recent of2 resultswithin the time period is included. WSTDKT/V 2.7 [facility] spKt/V Gotch 2.05 [facility] nPCR_HD 1.28 [facility] eKt/V (Tattersall) 1.70 [facility] eNPCR 1.20 Knowledge Center spKt/V (Daugirdas II) 1.94 [facility] PCR 73.57 [facility] eKdrt/V 1.77 [facility] eKt/V Gotch 1.77 [facility] 12/21/2024 12/21/2024 [facility] Ordering Provider LAB BLOOD ORDERABLES Final Result Performing Organization Address [facility] de Phone Number [facility] Contact Performing lab Unknown, [place] * SPECIAL CHEMISTRY (11/16/2024) Only the most recent of2 resultswithin the time period is included. Vitamin D, 25-OH, Total 66.0 30.0 - 100.0 ng/mL [facility] Comment: Please Note:? Effective August 17, 2023, the methodology for this test has changed to the [facility]. 11/16/2024 11/18/2024 7:5 9 AM EST Narrative [facility] - 11/18/2024 Unless otherwise specified, test(s) performed at: [facility], [address] [place] [address] MEMBERSHIP COORDINATOR: Blane Ramsay M.D. For any questions, please call customer service at FREQUENCY:OTHER Resulting Agency Comment Specimen source: Serum Denys Mueller MD LAB BLOOD BANK TEST ORDERABLE S Final Result Performing Organization Address City/[facility]/ZIP Co de Phone Number [facility] See order comments or contact performing lab Unknown, [place] from Last 3 Months or Most Recently Relevant to Health Maintenance Insurance Medicare [facility] Medicare [facility] Care Teams Manufacturing Recruiter Relationship Specialty Start Date End Date Matias Tan MD [address] [place] [address] PCP - General Family Medicine 10/24/19
--- OUTSIDE RECORDS SUMMARY | 2025-02-04 07:26 | XMS_ITS | Encounter Summary ---
Author Organization [facility] [place], Address [address] [place] [address] Phone Care Team Providers Care Handbell Choir Director Name Role Phone Matias Tan MD Primary Care Provider +1- [phone] Reason for Visit * Reason Onset Date Comments Med Refill 12/20/2022 Encounter Details Date Type Department Care Team (Late st Contact Info) Description 12/20/2022 Refill [facility] - Vascular Access Center [address] [place] [address] Kb Sung MD Social History Tobacco Use [...] visit [facility] [place] - [facility] Center [address] [place] [address] documented as of this encounter Visit Diagnoses Not on filedocumented in this encounter Care Teams Handbell Choir Director Relationship Specialty Start Date End Date Matias Tan MD [facility] [address] [facility] [place] [address] PCP - General Family Medicine 10/24/19 documented as of this encounter
--- OUTSIDE RECORDS SUMMARY | 2025-02-04 07:26 | XMS_ITS | Encounter Summary ---
Author Organization [facility] [place], Address [address] [place] [address] Phone Care Team Providers Care Therapist Speech Name Role Phone Matias Tan MD Primary Care Provider +1- [phone] Reason for Visit * Reason Onset Date Comments Med Refill 06/20/2022 Encounter Details Date Type Department Care Team (Late st Contact Info) Description 06/20/2022 Refill [facility], [address] [place] [address] Guanako Mercer MD [address] [facility] [address] [place] [address] Social History Tobacco Use Types Packs/Day Years [...] visit [facility] [place] - [facility] Center [address] [place] [address] documented as of this encounter Visit Diagnoses Not on filedocumented in this encounter Care Teams Therapist Speech Relationship Specialty Start Date End Date Matias Tan MD [address] [facility] [place] [address] PCP - General Family Medicine 10/24/19 documented as of this encounter
--- OUTSIDE RECORDS SUMMARY | 2025-02-04 07:26 | XMS_ITS | Encounter Summary ---
Author Organization [facility] [place], Address [address] [place] [address] Phone Care Team Providers Care Security Tester Name Role Phone Matias Tan MD Primary Care Provider +1- [phone] Reason for Visit * Reason Onset Date Comments Med Refill 09/24/2022 Encounter Details Date Type Department Care Team (Late st Contact Info) Description 09/24/2022 Refill [facility] - Vascular Access Center [address] [place] [address] Ferdinand Monroe MD [address] [place] [phone] Social History Tobacco Use Types Packs/Day Years [...] visit [facility] [place] - [facility] Center [address] [place] [address] [place] [address] documented as of this encounter Visit Diagnoses Not on filedocumented in this encounter Care Teams Security Tester Relationship Specialty Start Date End Date Matias Tan MD [address] [facility] [place] [address] PCP - General Family Medicine 10/24/19 documented as of this encounter
--- OUTSIDE RECORDS SUMMARY | 2025-02-04 07:26 | XMS_ITS | Encounter Summary ---
Author Organization [facility] [place], Address [address] [place] [address] Phone Care Team Providers Care Family Therapist Name Role Phone Matias Tan MD Primary Care Provider +1- [phone] Reason for Visit * Reason Onset Date Comments Med Refill 12/20/2022 Encounter Details Date Type Department Care Team (Late st Contact Info) Description 12/20/2022 Refill [facility] - Vascular Access Center [address] [place] [address] Kb Sung MD Social History Tobacco Use [...] [facility] [place] - [facility] [address] [place] [address] documented as of this encounter Visit Diagnoses Not on filedocumented in this encounter Care Teams Family Therapist Relationship Specialty Start Date End Date Matias Tan MD [facility] [address] [facility] [place] [address] PCP - General Family Medicine 10/24/19 documented as of this encounter
--- OUTSIDE RECORDS SUMMARY | 2025-02-04 07:26 | XMS_ITS | Encounter Summary ---
Author Organization [facility] [place], Address [address] [place] [address] Phone Care Team Providers Care Shop Foreman Name Role Phone Matias Tan MD Primary Care Provider +1- [phone] Reason for Visit * Reason Comments Med Refill Encounter Details Date Type Department Care Team (Late st Contact Info) Description 07/17/2022 Refill [facility] - [facility] Center [address] [place] [address] Guanako Mercer MD [address] [place] [address] Social History Tobacco Use Types Packs/Day Years [...] visit [facility] [place] - [facility] Center [address] [place] [phone] documented as of this encounter Visit Diagnoses Not on filedocumented in this encounter Care Teams Shop Foreman Relationship Specialty Start Date End Date Matias Tan MD [address] [place] [address] PCP - General Family Medicine 10/24/19 documented as of this encounter
--- OUTSIDE RECORDS SUMMARY | 2025-02-04 07:26 | XMS_ITS | Encounter Summary ---
Author Organization [facility], Address [address] [place] [address] Phone Care Team Providers Care Learning Development Specialist Name Role Phone Matias Tan MD Primary Care Provider +1- [phone] Reason for Visit * Reason Comments Med Refill Encounter Details Date Type Department Care Team (Late st Contact Info) Description 01/26/2023 Refill [facility] [address] [place] [address] Gabriela Hernandez PA Social History Tobacco [...] visit [facility] [place], - Vascular Access Center [address] [place] [address] documented as of this encounter Visit Diagnoses Not on filedocumented in this encounter Care Teams Learning Development Specialist Relationship Specialty Start Date End Date Matias Tan MD [facility] [address] [place] [address] PCP - General Family Medicine 10/24/19 documented as of this encounter
--- OUTSIDE RECORDS SUMMARY | 2025-02-04 07:26 | XMS_ITS | Encounter Summary ---
Author Organization [facility] Address [address] [place] [address] Phone Care Team Providers Care Capital Markets Specialist Name Role Phone Matias Tan MD Primary Care Provider +1- [phone] Reason for Visit * Reason Comments Med Refill Encounter Details Date Type Department Care Team (Late st Contact Info) Description 06/24/2022 Refill [facility] [place], [address] [place] [address] Guanako Mercer MD [address] [facility] [place] [address] Social History Tobacco Use Types Packs/Day Years [...] visit [facility] [place] - [facility] Center [address] [place] [address] documented as of this encounter Visit Diagnoses Not on filedocumented in this encounter Care Teams Capital Markets Specialist Relationship Specialty Start Date End Date Matias Tan MD [address] [place] [address] PCP - General Family Medicine 10/24/19 documented as of this encounter
--- OUTSIDE RECORDS SUMMARY | 2025-02-04 07:26 | XMS_ITS | Encounter Summary ---
Author Organization [facility] [place], Address [address] [place] [address] Phone Care Team Providers Care Rn Anesthesiology Name Role Phone Matias Tan MD Primary Care Provider +1- [phone] Reason for Visit * Reason Onset Date Comments Med Refill 07/01/2024 Encounter Details Date Type Department Care Team (Late Contact Info) Description 07/01/2024 Refill [facility], - Vascular Access Center [address] [place] [address] Dale Lema MD [address] [place] [address] Social History Tobacco Use Types Packs/Day Years [...] [facility] [place] - [facility] Center [address] [place] [address] documented as of this encounter Visit Diagnoses Not on filedocumented in this encounter Care Teams Rn Anesthesiology Relationship Specialty Start Date End Date Matias Tan MD [address] [facility] [place] [address] PCP - General Family Medicine 10/24/19 documented as of this encounter
--- OUTSIDE RECORDS SUMMARY | 2025-02-04 07:26 | XMS_ITS | Encounter Summary ---
Author Organization [facility] [place], Address [address] [place] [address] Phone Care Team Providers Care Record Librarian Name Role Phone Matias Tan MD Primary Care Provider +1- [phone] Reason for Visit * Reason Comments Med Refill Encounter Details Date Type Department Care Team (Late st Contact Info) Description 12/28/2024 Refill [facility] [address] [place] [address] Sawyer Davis MD [address] [place] [address] Social History Tobacco Use Types [...] visit [facility] [place] - [facility] Access Center [address] [place] [address] documented as of this encounter Procedures Procedure Name Priority Date/Time Associated Diagnosis Comments HEMATOLOGY Routine 12/28/2024 documented in this encounter Results * (ABNORMAL) HEMATOLOGY (12/28/2024) Hemoglobin 11.5(L) 14.0 - 18.0 g/dL [facility] Hemoglobin x 3 34.5(L) 42.0 - 54.0 % [facility] 12/28/2024 12/29/2024 9:1 7 AM EDT Narrative [facility] - 12/29/2024 Unless otherwise specified, test(s) performed at: [facility], [address] [place] [address] TRUST MANAGER: Blane Ramsay M.D. For any questions, please call customer service at FREQUENCY:OTHER Resulting Agency Comment Specimen source: Blood us Denys Mueller MD LAB BLOOD ORDERABLES Final Re sult [facility] See order comments or contact performing lab [facility], [place] documented in this encounter Visit Diagnoses Not on filedocumented in this encounter Care Teams Record Librarian Relationship Specialty Start Date End Date Matias Tan MD [facility] [address] [facility] [place] [phone] PCP - General Family Medicine 10/24/19 documented as of this encounter
--- OUTSIDE RECORDS SUMMARY | 2025-02-04 07:26 | XMS_ITS | Encounter Summary ---
Author Organization [facility] [place], Address [address] [place] [address] Phone Care Team Providers Care Continuous Weld Pipe Mill Supervisor Name Role Phone Matias Tan MD Primary Care Provider +1- [phone] Reason for Visit * Reason Comments Med Refill Encounter Details Date Type Department Care Team (Late st Contact Info) Description 11/28/2022 Refill [facility] [place] [address] [place] [address] Guanako Mercer MD [address] [place] [address] Social History Tobacco Use Types [...] visit [facility] [place] - [facility] Access Center [address] [place] [address] documented as of this encounter Visit Diagnoses Not on filedocumented in this encounter Care Teams Continuous Weld Pipe Mill Supervisor Relationship Specialty Start Date End Date Matias Tan MD [address] [facility] [place] [address] PCP - General Family Medicine 10/24/19 documented as of this encounter
--- OUTSIDE RECORDS SUMMARY | 2025-02-04 07:26 | XMS_ITS | Encounter Summary ---
Author Organization [facility], Address [address] [place] [address] Phone Care Team Providers Care Anhydrous Ammonia Production Supervisor Name Role Phone Matias Tan MD Primary Care Provider +1- [phone] Encounter Details Date Type Department Care Team (Late st Contact Info) Description 02/02/2024 Documentation Only [facility], [address] [place] [phone] Alexandria Yusuf [address] [place] [address] Social History Tobacco Use Types [...] visit [facility] [address] [place] [phone] documented as of this encounter Visit Diagnoses Not on filedocumented in this encounter Care Teams Anhydrous Ammonia Production Supervisor Relationship Specialty Start Date End Date Matias Tan MD [address] [place] [address] PCP - General Family Medicine 10/24/19 documented as of this encounter
--- OUTSIDE RECORDS SUMMARY | 2025-02-04 07:26 | XMS_ITS | Encounter Summary ---
Author Organization [facility], Address [address] [place] [address] Phone Care Team Providers Care Machine Maintenance Name Role Phone Matias Tan MD Primary Care Provider +1- [phone] Reason for Visit * Reason Comments Med Refill Encounter Details Date Type Department Care Team (Late st Contact Info) Description 09/24/2023 Refill [facility] [address] [place] [address] Gabriela Hernandez PA Social History Tobacco [...] visit [facility] [place], - [facility] Center [address] [place] [address] documented as of this encounter Visit Diagnoses Not on filedocumented in this encounter Care Teams Machine Maintenance Relationship Specialty Start Date End Date Matias Tan MD [facility] [address] [place] [address] PCP - General Family Medicine 10/24/19 documented as of this encounter
--- OUTSIDE RECORDS SUMMARY | 2025-02-04 07:26 | XMS_ITS | Encounter Summary ---
Author Organization [facility], Address [address] [place] [address] Phone Care Team Providers Care Rodeo Clown Name Role Phone Matias Tan MD Primary Care Provider +1- [phone] Encounter Details Date Type Department Care Team (Late st Contact Info) Description 01/31/2025 Treatment [facility], [address] [place] [phone] Guanako Tan MD [address] [place] [phone] End stage renal disease; Dependence on renal dialysis Social History Tobacco Use Types Packs/Day Years [...] AM EDT documented as of this encounter Miscellaneous Notes * Dialysis Note - Guanako Tan MD - 01/31/2025 12:00 AM EDT Patient: Emma Wick : 1955 Note Type: Dialysis Rounds-Comp Service Date: 01/31/2025 This patient was personally seen for a complete visit as part of routine monthly dialysis care for end stage renal disease. Attending [employer]en Fishing Crew Member: JACQUELIN HONG MD Dialysis Location: [facility] D[facility] Schedule: Shift: 2 OVERVIEW Patient is stable. HOME MEDICATIONS Current [facility] Outpatient Medications albuterol sulfate 90 mcg/actuation HFA aerosol inhaler Inhale 2 puff using inhaler every four to six hours as needed. amlodipine 10 mg tablet Take 1 tablet by mouth once a day. atenolol 100 mg tablet Take 1 tablet by mouth once a day. atorvastatin 40 mg tablet Take 1 by mouth once a day. betamethasone dipropionate 0.05% lotion cefuroxime axetil 500 mg tablet Take 1 tablet by mouth twice a day. clonazepam 0.5 mg tablet Take 1 tablet by mouth three times a day. [prn for anxiety] Dialyvite 800 0.8 mg tablet Take 1 tablet by mouth once a day. gabapentin 100 mg capsule Take 1 capsule by mouth three times a day. Humalog KwikPen Insulin 100 unit/mL insulin pen [sliding scale] hydroxyzine pamoate 50 mg capsule Take 1 capsule by mouth at bedtime as needed. [As needed for itching] Klonopin 1 mg tablet Take 1 tablet by mouth three times a day. levothyroxine 137 mcg tablet Take 1 tablet by mouth every morning as directed. lidocaine-prilocaine 2.5-2.5% cream Apply to skin as directed. Lokelma 10 gram powder in packet Take 1 packet dissolved in water three times a week. losartan 50 mg tablet Take 1 tablet by mouth once a day. oxycodone 5 mg tablet Take 2 tablet by mouth twice a day. pantoprazole 20 mg tablet,delayed release (DR/EC) Take 1 tablet by mouth twice a day. prednisone 20 mg tablet Take 1 tablet by mouth once a day. prochlorperazine maleate 10 mg tablet Take 1 tablet by mouth once a day as needed. [for nausea at Dialysis] Protonix 40 mg tablet,delayed release (DR/EC) Take 1 tablet by mouth twice a day. Sevelamer Carbonate Tablet 800 mg tablet Take 2 Tablet By Mouth Three times a day With Meals. Sevelamer Carbonate Tablet 800 mg tablet Take 2 Tablet By Mouth Three times a day With Meals. sodium bicarbonate 650 mg tablet Take 2 tablet by mouth once a day. Vitamin D3 125 mcg (5,000 unit) tablet Take 1 tablet by mouth once a day. Current [facility] Allergies Allergen: PENICILLINS Reaction: Unknown Severity: Moderate Allergen: tramadol Reaction: Skin Rash Allergen: trazodone Reaction: Unknown Severity: Moderate Allergen: Ultram Reaction: Skin Rash DIALYSIS PRESCRIPTION Treatment Data Treatment Date: 01/06/2025 started at: 10:10 AM Dialysate / Machine Temp (prescribed): 36.0*C Dialysate / Machine Temp (actual): 36.0*C BFR (prescribed): 450 BFR (average delivered): 460 DFR (prescribed): Manual 800 DFR (average delivered): 800 Prescribed Time: 04:00 Actual Time: 02:42 EDW (kg): 70.5 Dialyzer: 160NRe Optiflux Dialysate: 2.0 K, 2.50 Ca, 1.0 Mg, 100 Dextrose (TI4803) Sodium: 138 Bicarb: 36 Pre Dialysis Vitals Pre BP Sit: 146/86 Pre Wt (kg): 75.2 EDW Deviation (kg): 4.7 Temp: 97.2*F Post Dialysis Vitals Post BP Sit: 169/79 Post Wt (kg): 73.1 TREATMENT MEDICATIONS ORDERS Heparin Sodium (Porcine) 1,000 Units/mL Systemic 1000 units IVP Every Treatment 09/23/2024 - 09/22/2025 Korsuva (difelikefalin) IVP Dose 0.9 mL IVP 3X Week Post Dialysis 11/09/2024 - 01/31/2025 Vitamin D (Calcitriol) Oral 0.5 mcg ORAL Every Treatment During Dialysis 07/11/2024 - 07/10/2025 BP AND FLUID ASSESSMENT Post BP Sit 169/79 - 01/06/2025 123/71 - 01/05/2025 161/82 - 01/04/2025 Post Wt (kg) 73.1 - 01/06/2025 73.9 - 01/05/2025 76.3 - 01/04/2025 EDW (kg) 70.5 - 01/06/2025 70.5 - 01/05/2025 70.5 - 01/04/2025 Deviation (kg) 2.6 - 01/06/2025 3.4 - 01/05/2025 5.8 - 01/04/2025 ADEQUACY ASSESSMENT spKt/V (Daugirdas II) 1.94 (12/21/24) 1.70 (11/23/24) 1.88 (10/21/24) eKdrt/V 1.77 (12/21/24) 1.54 (11/23/24) 1.68 (10/21/24) % Urea Reduction 79 (12/21/24) 75 (11/23/24) 79 (10/21/24) BUN 61 (12/21/24) 32 (11/23/24) 56 (10/21/24) BUN Post Dialysis 13 (12/21/24) 8 (11/23/24) 12 (10/21/24) Creatinine 9.17 (01/04/25) 9.44 (12/07/24) 12.44 (11/07/24) Bicarbonate (CO2) 25 (01/04/25) 25 (12/07/24) 29 (11/16/24) Sodium 136 (01/04/25) 137 (12/07/24) 127 (11/07/24) Missed Treatments 10 - Last 30 days 10 - Last 60 days Most recently missed on 01/30/2025 ACCESS ASSESSMENT AVGraft Synthetic - Standard (PTFE) Left Upper Arm Active (In Use) - 05/22/2022 Placed - 05/07/2022 Access Flow 1328 (12/19/24) 1129 (11/21/24) 1152 (10/24/24) ANEMIA ASSESSMENT Hemoglobin 11.2 (01/04/25) 11.5 (12/28/24) 11.2 (12/21/24) Iron Saturation (TSat) 56 (01/04/25) 19 (12/07/24) 9 (11/07/24) Ferritin 892 (01/04/25) 691 (12/07/24) 941 (11/07/24) Iron 104 (01/04/25) 44 (12/07/24) 19 (11/07/24) TIBC 187 (01/04/25) 228 (12/07/24) 223 (11/07/24) Reticulocyte Hemoglobin 35.3 (05/04/24) 35.0 (02/03/24) MCV 95 (05/04/24) 91 (02/03/24) BMM ASSESSMENT Calcium 8.4 01/04/25 8.5 12/07/24 8.3 11/07/24 Corrected Calcium 8.6 01/04/25 8.4 12/07/24 8.3 11/07/24 Phosphorus 9.5 01/04/25 5.9 12/07/24 7.3 11/07/24 Calcium Phosphorus Product 80 01/04/25 50 12/07/24 61 11/07/24 PTH 358 01/04/25 351 12/07/24 291 11/07/24 Vitamin D, 25-OH, Total 66.0 11/16/24 48.2 05/04/24 43.6 02/03/24 Magnesium 2.0 01/04/25 1.8 12/07/24 1.8 11/07/24 Alkaline Phosphatase 65 01/04/25 63 12/07/24 61 11/07/24 NUTRITION ASSESSMENT Albumin 3.7 01/04/25 4.1 12/07/24 4.0 11/07/24 Potassium 5.2 01/04/25 6.2 01/02/25 5.8 12/26/24 eNPCR 1.20 12/21/24 0.66 11/23/24 1.10 10/21/24 Hemoglobin A1C 5.1 05/04/24 5.8 02/03/24 ADDITIONAL LABS WBC 11.52 (05/04/24) 11.94 (02/03/24) Hepatitis B Surface Ab >1,000 (11/07/24) >1,000 (05/04/24) ADDITIONAL COMMENT COMMENTS: 01/31/2015 Patient is stable at rehab facility currently at [facility] despite neuropathy doing OK recovery from muscle reconditioning. Medications reviewed Physical Exam Vital signs: reviewed Edema: none Impression 1.Adequacy: KT/V was assessed and the dialysis prescription was adjusted as needed. 2.Access: Dialysis access function is acceptable. 3.Hypertension: Blood pressure control and volume status are at goal. 4.Anemia: Labs reviewed and adjustments to regimen made according to anemia management protocol. 5.Mineral Bone Disease: Labs reviewed. Diet and medication adjustment as per protocol. 6.Nutrition: Labs reviewed. Dietary adjustments made in conjunction with salesperson pets and pet supplies. 7.Transplant: The patient is being evaluated for a kidney transplant. Patient is stable Medications reviewed Physical Exam Vital signs: reviewed Lungs: clear Edema: none Impression 1.Adequacy: KT/V was assessed and the dialysis prescription was adjusted as needed. 2.Access: Dialysis access function is acceptable. 3.Hypertension: Blood pressure control and volume status are at goal. 4.Anemia: Labs reviewed and adjustments to regimen made according to anemia management protocol. 5.Mineral Bone Disease: Labs reviewed. Diet and medication adjustment as per protocol. 6.Nutrition: Labs reviewed. Dietary adjustments made in conjunction with salesperson pets and pet supplies. 7.Transplant: The patient is being evaluated for a kidney transplant. Signed by: GUANAKO TAN MD on 01/31/2025 at 05:47:24 PM documented in this encounter Plan of Treatment Upcoming Encounters Date Type Department Care Team (Late st Contact Info) Description 03/07/2025 11:00 AM EDT Procedure visit [facility] [address] [place] [address] documented as of this encounter Visit Diagnoses Diagnosis End stage renal disease Dependence on renal dialysis documented in this encounter Care Teams Rodeo Clown Relationship Specialty Start Date End Date Matias Tan MD [address] [place] [address] PCP - General Family Medicine 10/24/19 documented as of this encounter
--- OUTSIDE RECORDS SUMMARY | 2025-02-04 07:26 | XMS_ITS | Encounter Summary ---
Author Organization [facility] [place], Address [address] [place] [address] Phone Care Team Providers Care Machinery Mechanic Name Role Phone Matias Tan MD Primary Care Provider +1- [phone] Reason for Visit * Reason Comments Med Refill Encounter Details Date Type Department Care Team (Late st Contact Info) Description 09/24/2023 Refill [facility] [address] [place] [phone] Denys Mueller MD [address] [place] [address] Social History Tobacco Use Types [...] visit [facility] - [facility] Center [address] [place] [phone] documented as of this encounter Visit Diagnoses Not on filedocumented in this encounter Care Teams Machinery Mechanic Relationship Specialty Start Date End Date Matias Tan MD [address] [place] [address] PCP - General Family Medicine 10/24/19 documented as of this encounter
--- OUTSIDE RECORDS SUMMARY | 2025-02-04 07:26 | XMS_ITS | Encounter Summary ---
Author Organization [facility], Address [address] [place] [address] Phone Care Team Providers Care Interior Design Assistant Name Role Phone Matias Tan MD Primary Care Provider +1- [phone] Reason for Visit * Reason Comments Med Refill Encounter Details Date Type Department Care Team (Late st Contact Info) Description 05/08/2024 Refill [facility] [address] [place] [address] Gabriela Hernandez PA Social History Tobacco [...] visit [facility] [place], - Vascular Access Center [address] [place] [address] documented as of this encounter Visit Diagnoses Not on filedocumented in this encounter Care Teams Interior Design Assistant Relationship Specialty Start Date End Date Matias Tan MD [facility] [address] [place] [address] PCP - General Family Medicine 10/24/19 documented as of this encounter
--- OUTSIDE RECORDS SUMMARY | 2025-02-04 07:26 | XMS_ITS | Encounter Summary ---
Author Organization [facility] [place], Address [address] [place] [address] Phone Care Team Providers Care Shale Processing Technician Name Role Phone Matias Tan MD Primary Care Provider +1- [phone] Reason for Visit * Reason Onset Date Comments Med Refill 06/24/2022 Encounter Details Date Type Department Care Team (Late st Contact Info) Description 06/24/2022 Refill [facility], [address] [place] [phone] Guanako Mercer MD [address] [place] [phone] Social History Tobacco Use Types Packs/Day Years [...] visit [facility] - [facility] [address] [place] [phone] documented as of this encounter Visit Diagnoses Not on filedocumented in this encounter Care Teams Shale Processing Technician Relationship Specialty Start Date End Date Matias Tan MD [address] [place] [address] PCP - General Family Medicine 10/24/19 documented as of this encounter
--- OUTSIDE RECORDS SUMMARY | 2025-02-04 07:26 | XMS_ITS | Encounter Summary ---
Author Organization [facility] [place], Address [address] [place] [address] Phone Care Team Providers Care Internal Medicine Doctor Name Role Phone Matias Tan MD Primary Care Provider +1- [phone] Reason for Visit * Reason Comments Med Refill Encounter Details Date Type Department Care Team (Late st Contact Info) Description 01/26/2023 Refill [facility] [address] [place] [phone] Denys Mueller MD [address] [place] [address] Social History Tobacco Use Types [...] visit [facility] [place] - [facility] Center [address] [place] [phone] documented as of this encounter Visit Diagnoses Not on filedocumented in this encounter Care Teams Internal Medicine Doctor Relationship Specialty Start Date End Date Matias Tan MD [address] [place] [address] PCP - General Family Medicine 10/24/19 documented as of this encounter
--- OUTSIDE RECORDS SUMMARY | 2025-02-04 07:26 | XMS_ITS | Encounter Summary ---
Author Organization [facility] Address [address] [place] [address] Care Team Providers Care Lumber Planer Name Role Phone Yulia Smart MD Primary Care Provider Encounter Details Date Type Department Care Team (Late st Contact Info) Description 01/14/2025 Lab Requisition [facility] - Main Lab [address] [place] [address] Yulia Smart MD [address] [place] [address] Encounter for other general examination Social History [...] LAB CHEMISTRY METHOD 01/14/2025 12:17 PM EDT [facility] Blood Venous blood specimen / Unknown Venipuncture / Unknown 01/14/2025 5:58 AM EDT 01/14/2025 9:53 AM EDT us Yulia Smart MD LAB BLOOD ORDERABLES Final Resu lt KARLA V[place] ([facility] LAB [address] [place] [address], documented in this encounter Visit Diagnoses Diagnosis Encounter for other general examination documented in this encounter Care Teams Lumber Planer Relationship Specialty Start Date End Date Yulia Smart MD [address] [place] [address] PCP - General Hospitalist Medicine 01/13/25 documented as of this encounter
--- OUTSIDE RECORDS SUMMARY | 2025-02-04 07:26 | XMS_ITS | Encounter Summary ---
Author Organization [facility] Address [address] [place] [address] Care Team Providers Care Broaching Machine Set Up Operator Name Role Phone Yulia Smart MD Primary Care Provider Encounter Details Date Type Department Care Team (Late st Contact Info) Description 01/18/2025 Lab Requisition [facility] - Main Lab [address] [facility] [place] [address] Yulia Smart MD [address] [place] [id number] Encounter for other general examination Social History [...] K/mcL LAB HEMETOLOGY METHOD 01/18/2025 7:10 AM [facility] RBC 3.10(L) 4.50 - 5.50 M/mcL LAB HEMETOLOGY METHOD 01/18/2025 7:10 AM [facility] Hemoglobin 9.5(L) 13.5 - 17.5 g/dL LAB HEMETOLOGY METHOD 01/18/2025 7:10 AM [facility] Hematocrit 27.0(L) 42.0 - 54.0 % LAB HEMETOLOGY METHOD 01/18/2025 7:10 AM [facility] MCV 87.1 79.0 - 98.0 FL LAB HEMETOLOGY METHOD 01/18/2025 7:10 AM [facility] MCH 30.6 27.0 - 32.0 pcg LAB HEMETOLOGY METHOD 01/18/2025 7:10 AM [facility] MCHC 35.2 32.0 - 37.0 g/dL LAB HEMETOLOGY METHOD 01/18/2025 7:10 AM [facility] RDW 14.3 11.0 - 15.0 % LAB HEMETOLOGY METHOD 01/18/2025 7:10 AM [facility] Platelets 251 130 - 400 K/mcL LAB HEMETOLOGY METHOD 01/18/2025 7:10 AM [facility] MPV 11.1(H) 7.0 - 11.0 FL LAB HEMETOLOGY METHOD 01/18/2025 7:10 AM [facility] NRBC 0.0 <1.0 % LAB HEMETOLOGY METHOD 01/18/2025 7:10 AM [facility] NRBC Absolute 0.00 <0.10 K/mcL LAB HEMETOLOGY METHOD 01/18/2025 7:10 AM EDT [facility] Neutrophils Relative 77.1 % LAB HEMETOLOGY METHOD 01/18/2025 7:10 AM [facility] Lymphocytes Relative 8.3 % LAB HEMETOLOGY METHOD 01/18/2025 7:10 AM [facility] Monocytes Relative 13.5 % LAB HEMETOLOGY METHOD 01/18/2025 7:10 AM [facility] Eosinophils Relative 0.0 % LAB HEMETOLOGY METHOD 01/18/2025 7:10 AM [facility] Basophils Relative 0.0 % LAB HEMETOLOGY METHOD 01/18/2025 7:10 AM [facility] Immature Granulocytes Relative 1.1 % LAB HEMETOLOGY METHOD 01/18/2025 7:10 AM [facility] Neutrophils Absolute 7.61(H) 1.50 - 7.00 K/mcL LAB HEMETOLOGY METHOD 01/18/2025 7:10 AM [facility] Lymphocytes Absolute 0.82(L) 1.00 - 5.00 K/mcL LAB HEMETOLOGY METHOD 01/18/2025 7:10 AM [facility] Monocytes Absolute 1.33(H) 0.20 - 1.00 K/mcL LAB HEMETOLOGY METHOD 01/18/2025 7:10 AM [facility] Eosinophils Absolute 0.00 0.00 - 0.50 K/mcL LAB HEMETOLOGY METHOD 01/18/2025 7:10 AM [facility] Basophils Absolute 0.00 0.00 - 0.20 K/mcL LAB HEMETOLOGY METHOD 01/18/2025 7:10 AM [facility] Immature Granulocytes Absolute 0.11(H) 0.00 - 0.03 K/mcL LAB HEMETOLOGY METHOD 01/18/2025 7:10 AM EDT [facility] Blood Venous blood specimen / Unknown Venipuncture / Unknown 01/18/2025 5:06 AM EDT 01/18/2025 6:20 AM EDT us Yulia Smart MD LAB BLOOD ORDERABLES Final Resu lt Performing Organization Address City/[facility]/ZIP Co de Phone Number [facility] [address] [place] [address], [place] [phone] * Ammonia (01/18/2025 5:06 AM EDT) Ammonia 28 11 - 35 mcmol/L LAB CHEMISTRY METHOD 01/18/2025 6:53 AM EDT [facility] Blood Venous blood specimen / Unknown Venipuncture / Unknown 01/18/2025 5:06 AM EDT 01/18/2025 6:20 AM EDT us Yulia Smart MD LAB BLOOD ORDERABLES Final Resu lt Performing Organization Address [facility] Co de Phone Number [facility] [address] [place] [address], [place] [phone] * Thyroid stimulating hormone (01/18/2025 5:06 AM EDT) TSH 1.94 0.40 - 4.00 mcIU/mL LAB CHEMISTRY METHOD 01/18/2025 9:08 AM EDT [facility] Blood Venous blood specimen / Unknown Venipuncture / Unknown 01/18/2025 5:06 AM EDT 01/18/2025 6:20 AM EDT us Yulia Smart MD LAB BLOOD ORDERABLES Final Resu lt Performing Organization Address City/[facility]/ZIP Co de Phone Number [facility] [address] [place] [address], [place] [phone] * (ABNORMAL) Vitamin B12 (01/18/2025 5:06 AM EDT) [facility] Vitamin B-12 1,241(H) 250 - 900 pcg/mL LAB CHEMISTRY METHOD 01/18/2025 7:36 AM EDT [facility] Blood Venous blood specimen / Unknown Venipuncture / Unknown 01/18/2025 5:06 AM EDT 01/18/2025 6:20 AM EDT us Yulia Smart MD LAB BLOOD ORDERABLES Final Resu lt [facility] [address] [place] [address], [place] [phone] * (ABNORMAL) Comprehensive metabolic panel (01/18/2025 5:06 AM EDT) [facility] Sodium 123(L) 133 - 145 mmol/L LAB CHEMISTRY METHOD 01/18/2025 7:56 AM [facility] Potassium 5.2 3.5 - 5.5 mmol/L LAB CHEMISTRY METHOD 01/18/2025 7:56 AM [facility] Chloride 89(L) 96 - 110 mmol/L LAB CHEMISTRY METHOD 01/18/2025 7:56 AM [facility] CO2 21 21 - 32 mmol/L LAB CHEMISTRY METHOD 01/18/2025 7:56 AM [facility] Anion Gap 13(H) 3 - 11 LAB CHEMISTRY METHOD 01/18/2025 7:56 AM [facility] Glucose 174(H) 70 - 100 mg/dL LAB CHEMISTRY METHOD 01/18/2025 7:56 AM [facility] BUN 96(H) 5 - 25 mg/dL LAB CHEMISTRY METHOD 01/18/2025 7:56 AM [facility] Creatinine 9.44(H) 0.70 - 1.30 mg/dL LAB CHEMISTRY METHOD 01/18/2025 7:56 AM [facility] eGFR 5(L) >=60 mL/min/1. 73m2 LAB CHEMISTRY METHOD 01/18/2025 7:56 AM [facility] Comment:Calculation based on the??Chronic Kidney Disease Epidemiology Collaboration (CKD-EPI) equation refit??without adjustment for race. BUN/Creatinine Ratio 10.2 LAB CHEMISTRY METHOD 01/18/2025 7:56 AM [facility] Calcium 7.8(L) 8.5 - 10.5 mg/dL LAB CHEMISTRY METHOD 01/18/2025 7:56 AM [facility] AST (SGOT) 13 10 - 42 unit/L LAB CHEMISTRY METHOD 01/18/2025 7:56 AM [facility] Comment:Results verified by repeat testing ALT (SGPT) 21 10 - 60 unit/L LAB CHEMISTRY METHOD 01/18/2025 7:56 AM [facility] Alkaline Phosphatase 52 42 - 121 unit/L LAB CHEMISTRY METHOD 01/18/2025 7:56 AM [facility] Total Protein 5.3(L) 6.0 - 8.0 g/dL LAB CHEMISTRY METHOD 01/18/2025 7:56 AM [facility] Albumin 2.6(L) 3.2 - 5.0 g/dL LAB CHEMISTRY METHOD 01/18/2025 7:56 AM [facility] Total Bilirubin 1.0 0.0 - 1.4 mg/dL LAB CHEMISTRY METHOD 01/18/2025 7:56 AM [facility] Comment:Results verified by repeat testing Blood Venous blood specimen / Unknown Venipuncture / Unknown 01/18/2025 5:06 AM EDT 01/18/2025 6:20 AM EDT us Rami A Ashkar MD LAB BLOOD ORDERABLES Final Resu lt [facility] [address] [place] [address], documented in this encounter Visit Diagnoses Diagnosis Encounter for other general examination documented in this encounter Care Teams Broaching Machine Set Up Operator Relationship Specialty Start Date End Date Yulia Smart MD [address] [place] [id number] PCP - General Hospitalist Medicine 01/13/25 documented as of this encounter
--- OUTSIDE RECORDS SUMMARY | 2025-02-04 07:26 | XMS_ITS | Encounter Summary ---
Author Organization [facility], Address [address] [place] [address] Phone Care Team Providers Care Tallow Refiner Name Role Phone Matias Tan MD Primary Care Provider +1- [phone] Encounter Details Date Type Department Care Team (Late st Contact Info) Description 01/10/2022 Documentation Only [facility], [address] [place] [phone] [address] [place] [address] Social History Tobacco Use Types [...] visit [facility] - [facility] [address] [place] [phone] documented as of this encounter Visit Diagnoses Not on filedocumented in this encounter Care Teams Tallow Refiner Relationship Specialty Start Date End Date Matias Tan MD [address] [place] [address] PCP - General Family Medicine 10/24/19 documented as of this encounter
--- OUTSIDE RECORDS SUMMARY | 2025-02-04 07:26 | XMS_ITS | Encounter Summary ---
Author Organization [facility], Address [address] [place] [address] Phone Care Team Providers Care Manager Business Operations Name Role Phone Matias Tan MD Primary Care Provider +1- [phone] Reason for Visit * Reason Onset Date Comments Med Refill 12/23/2022 Encounter Details Date Type Department Care Team (Late st Contact Info) Description 12/23/2022 Refill [facility] - Vascular Access Center [address] [place] [phone] Ferdinand Monroe MD [address] [place] [phone] Social History Tobacco Use Types Packs/Day Years [...] visit [facility] - [facility] [address] [place] [address] [place] [phone] documented as of this encounter Visit Diagnoses Not on filedocumented in this encounter Care Teams Manager Business Operations Relationship Specialty Start Date End Date Matias Tan MD [address] [facility] [place] [address] PCP - General Family Medicine 10/24/19 documented as of this encounter
--- OUTSIDE RECORDS SUMMARY | 2025-02-04 07:26 | XMS_ITS | Encounter Summary ---
Author Organization [facility], Address [address] [place] [address] Phone Care Team Providers Care Safety Equipment Tester Name Role Phone Matias Tan MD Primary Care Provider +1- [phone] Reason for Visit * Reason Onset Date Comments Med Refill 07/19/2022 Encounter Details Date Type Department Care Team (Late st Contact Info) Description 07/19/2022 Refill [facility] - Vascular Access Center [address] [place] [phone] Guanako Mercer MD [address] [place] [phone] Social History Tobacco Use Types Packs/Day Years [...] visit [facility] [address] [place] [phone] documented as of this encounter Visit Diagnoses Not on filedocumented in this encounter Care Teams Safety Equipment Tester Relationship Specialty Start Date End Date Matias Tan MD [facility] [address] [facility] [place] [address] PCP - General Family Medicine 10/24/19 documented as of this encounter
--- NOTE | 2025-02-04 07:36 | PC.NURSE ---
This RN resumed care of pt at 0700, called and had a very extensive conversation with this RN about pt. This RN went through and did his med rec with the , aware to be able to order home medications. Pt has been back and worth from [facility] to [facility]. Pt was on //Thu while at the intermediate, his home HD schedule is M/W/F, he did get dialyzed on Thursday and Thursday this week. Pt has been very weak at home, only going from bed to recliner, she feels that he is very quickly declining in his health. He is no longer on the transplant list. He has been having conversations about stopping HD and doing hospice. Pt is still currently a FULL CODE, discussion started with his about changing code status and what that would look like when the time was right, emotional support provided. Pt has been increasing his Dilaudid and alprazolam usage. He has been taking his Dilaudid every 3 hours, and has been doing his 2mg Alprazolam BID, and his PRN 0.5MG BID, he will take the 2mg with a dilaudid pill and separate out his 0.5mg dosage as needed inbetween. There are some medications on his med lists that she feels were started in the hospital and rehab but have not been taking at home yet, he has not been taking any insulin at home, and is not regularly checking his sugars at home, but when he does he has been low not high. Pt reporting Virgilio BILL was suppose to be coming into the home to help set up PT/OT but because he has been in the hospital or rehab they have not been able to set services up and she feels he is getting to sick to be able to stay at home and get to there he needs to be for his apts and HD. Kyara Cell number is [phone]. At this time all questions and POC discussed, this RN notified to call her when we have more of a plan in place.
[2025-02-04] MEDS: Morphine Sulfate 2 MG/ML CARTRIDGE 1 MG IVPUSH (07:49)
[2025-02-04] MEDS: Acetaminophen 1,000 MG/100 ML PIGGYBACK 400 MG IV (07:49)
--- NOTE | 2025-02-04 08:04 | PHA.MEDREC ---
Pharmacy Consult ? Medication Reconciliation Pharmacy has completed the medication reconciliation. Pt recently discharged 01/25/25. Utilized discharge packet to confirm meds. No new med changes per claim history.
--- NOTE | 2025-02-04 08:28 | P.HPHOSP_ITS ---
History of Present Illness Date of Service: 02/04/25 <ABA Pfeiffer - Last Filed: 02/04/25 11:36> Attending physician on admission: Chandler Garcia <ABA Pfeiffer - Last Filed: 02/04/25 11:36> Chief Complaint: Fall at home <ABA Pfeiffer - Last Filed: 02/04/25 11:36> Pt is a 70-year-old male with a PMH significant for?ESRD on HD M/W/F, insulin-dependent type 2 diabetes, hypothyroidism, HLD, normocytic anemia of chronic disease, hypothyroidism, GERD, and mood disorder who presents to the ED after mechanical fall earlier this morning while attempting to get out of bed. Pt has had multiple recent admissions to the hospital, including from 01/09- 01/11 where he was treated for hypoxia in the setting of influenza and bilateral pneumonia. Was then admitted again on 01/18-01/21 for acute encephalopathy and chronic gait abnormality. Pt was then readmitted the following day due to generalized weakness, abdominal pain, and acute on chronic anemia. Underwent EGD and colonoscopy on 01/24/2025 which showed esophagitis, gastritis, duodenitis, as well as diverticulosis and internal hemorrhoids. Was discharged to [facility] with high-dose PPI and Carafate. Rehab could not accommodate patient's M/W/F dialysis schedule, so was changed to /Thu. Pt was discharged on without receiving dialysis; instead under went a 5-hour dialysis session yesterday on Thursday (normally gets 3-hour sessions). Rehab otherwise uneventful. This morning pt awoke at 2:00 with SOB and stating he could not breath . Attempted to get out of bed to use the bathroom but legs gave out and he fell, hitting the back of his head on a metal bar on the bed. No LOC. Currently denies headache. No acute vision changes. Reports significant cough a few days ago, but nothing earlier today. Denies nausea, vomiting, abdominal pain. Chronic leg pain at baseline. Denies chest pain/pressure, palpitations. Of note, spoke at length with patient's /HCP who note pt has been declining steadily for the past 4 years, much more precipitously the past year with multiple hospitalizations and stints in rehab. Apparently dialysis in particular has becoming more and more difficult to tolerate. Has been considering stopping dialysis and going on Hospice. In the ED pt was febrile up to 101.1, tachypneic up to 27, and mildly hypertensive up to 159/74. Pt was hypoxic at time of presentation in the mid 80s on RA. Initially placed on CPAP then weaned to OxyMask 10L, satting at 92%. During initial encounter with pt for admission, pt was noted to be desatting to 86% on OxyMask 12 L. pt was then placed back on rescue CPAP until he became stabilized and was weaned to OxyMask 6 L, currently satting at 95%. Labs were significant for leukocytosis of 11.8, and VBG pH 7.46 with pCO2 53 and bicarb 38. Otherwise around baseline for pt. Normocytic anemia of 8.2/23.8 stable from prior on 01/30/2025. Creatinine baseline at 5.35. BNP 2775, elevated from prior reading on 01/09/2025 of 754, but in line with all other previous readings for the past 18 months. No significant electrolyte abnormalities. Lactic acid WNL at 1.5. Hepatic function WNL. Initial troponin 31.0, in line with previous. Stool negative for occult blood. Pt again tested positive for influenza type a, but has tested positive for the 4th time since 01/07/2025. CXR showed bilateral consolidations concerning for pneumonia vs pulmonary edema. CT of chest showed patchy bilateral ground-glass opacities concerning for multifocal infection. ?CT of head negative for intracranial hemorrhage or fracture, but showing mild global atrophy. CT of cervical spine negative for acute fracture or malalignment, potential right lower cervical/supraclavicular adenopathy. EKG demonstrated normal sinus rhythm with mild ST-depression in V4 and V5, which has been seen on previous EKGs. Pt was treated in the ED with IVF, morphine, Tylenol, Dilaudid p.o., azithromycin, and ceftriaxone. Pt is admitted to the hospital for treatment and further evaluation of acute hypoxic respiratory failure in setting of recurrent bilateral pneumonia. <ABA Pfeiffer - Last Filed: 02/04/25 11:36> Review of Systems 2 Review of Systems: Negative except for that which is stated in the HPI. <ABA Pfeiffer - Last Filed: 02/04/25 11:36> [facility] Medical History: Medical History (Updated 02/04/25 @ 13:58 by Devendra Peraza MD) End stage kidney disease Occult blood positive stool Anemia Internal jugular vein thrombosis Abnormality of gait ESRD needing dialysis Secondary hyperparathyroidism (of renal origin) Anemia in chronic kidney disease DONIS (acute kidney injury) End stage renal disease on dialysis Diabetes Kidney failure HTN (hypertension) <ABA Pfeiffer - Last Filed: 02/04/25 11:36> Social History: Social History Household Members: Family Housing: House Are you a primary home health aide caregiver to a significant other at home: No Do you presently have visiting nurse or other home services: No Alcohol intake: never Comment: sitter in place Patient Tobacco Use Status: Never used Tobacco Cigarette Packs Per Day: 0 Cigarettes Per Day: 0.0 Years Smoked: NA Smoked in Last 30 Days: No e-Cigarette/Vaping Use: Never Used Second Hand Smoke Exposure: No Use of substances other than those prescribed or required for medical reasons: No Advance Directives: Yes Advance Directives on File: Yes Advance Directives Date on File: 09/07/23 Do you have a plan to hurt others: No Plan Recently lost weight without trying: Unsure Nutrition Risks: No Nutritional Risk service: No <ABA Pfeiffer - Last Filed: 02/04/25 11:36> Meds Allergies/Adverse reactions: Allergies Allergy/AdvReac Type Severity Reaction Status Date / Time Penicillins [PENICILLINS] Allergy Unknown RASH Verified 02/04/25 03:51 tramadol [From ULTRAM] Allergy Unknown RASH Verified 02/04/25 03:51 trazodone [TRAZODONE] Allergy Unknown PRIAPISM Verified 02/04/25 03:51 risperidone [RISPERIDONE] AdvReac Severe dizzy, EPS Verified 02/04/25 03:51 <ABA Pfeiffer - Last Filed: 02/04/25 11:36> Home medications: Home Medications ?Medication ?Instructions ?Recorded ?Confirmed ?Last Taken ?Type atenolol 100 mg tablet 1 tab PO DAILY 07/11/21 02/04/25 02/02/25 History blood sugar diagnostic (Coby 07/11/21 10/30/24 10/30/24 09:00 History Lite Strips) dextroamphetamine-amphetamine 20 1 tab PO TID@0800,1400,1800 07/11/21 02/04/25 02/02/25 History mg tablet levothyroxine 137 mcg tablet 1 tab PO DAILY@0600 07/11/21 02/04/25 02/02/25 History pen needle, diabetic 31 gauge x 07/11/21 10/30/24 10/30/24 09:00 History 5/16 (BD Ultra-Fine Short Pen Needle) amlodipine 5 mg tablet 5 mg PO BID 09/03/23 02/04/25 02/02/25 History atorvastatin 40 mg tablet 40 mg PO DAILY 02/22/24 02/04/25 02/02/25 History sodium zirconium cyclosilicate 10 10 g PO SUTUTHSA@0900 06/19/24 02/04/25 02/02/25 History gram oral powder packet (kelmt) alprazolam 0.5 mg tablet 0.5 mg PO DAILY PRN anxiety attack 10/30/24 02/04/25 02/02/25 History alprazolam 2 mg tablet 2 mg PO BID 10/30/24 02/04/25 02/02/25 History insulin lispro 100 unit/mL See Protocol subcut TIDAC PRN 10/30/24 02/04/25 10/30/24 09:00 History subcutaneous pen (Humalog KwikPen Blood Glucose (U-100) Insulin) vitamin D3 25 mcg (1,000 unit)-vit 1 tab PO SUTUTHSA@0900 11/02/24 02/04/25 02/02/25 History K2 90 mcg disintegrating tablet losartan 100 mg tablet 100 mg PO DAILY 01/09/25 02/04/25 02/02/25 History sevelamer carbonate 800 mg tablet 1,600 mg PO TIDWM 01/09/25 02/04/25 02/02/25 History albuterol sulfate 2.5 mg/3 mL 2.5 mg inhalation Q6H PRN Wheezing 01/18/25 02/04/25 Unknown History (0.083 %) solution for nebulization albuterol sulfate 90 mcg/actuation 2 puff inhalation Q6H PRN 01/18/25 02/04/25 Unknown History aerosol inhaler (Ventolin HFA) Shortness Of Breath Or Wheezing calcium carbonate (Tums) 200 mg PO TID PRN UPSET STOMACH 01/18/25 02/04/25 Unknown History cholecalciferol (vitamin D3) 125 125 mcg PO SUTUTHSA@0900 01/18/25 02/04/25 02/02/25 History mcg (5,000 unit) tablet (Vitamin D3) insulin glargine 100 unit/mL 10 unit subcut BEDTIME 01/18/25 02/04/25 Unknown History subcutaneous solution (Lantus U-100 Insulin) melatonin 5 mg tablet 5 mg PO BEDTIME PRN Insomnia 01/18/25 02/04/25 Unknown History quetiapine 25 mg tablet (Seroquel) 25 mg PO BID PRN Agitation 01/18/25 02/04/25 Unknown History sevelamer carbonate 800 mg tablet 800 mg PO DAILY PRN SNACKS 01/18/25 02/04/25 02/02/25 History vitamin B complex and vitamin C 1 cap PO SUTUTHSA@0900 01/18/25 02/04/25 Unknown History no.20-folic acid 1 mg capsule omeprazole 40 mg capsule,delayed 40 mg PO BID@0630,1630 02/04/25 02/04/25 Unknown History release <ABA Pfeiffer - Last Filed: 02/04/25 11:36> Physical Exam 2 Vital Signs and Narrative: Vital Signs: Last Vital Signs Temp 100.9 F H 02/04/25 05:43 Pulse 89 02/04/25 07:53 Resp 20 02/04/25 07:53 BP 146/74 H 02/04/25 07:53 Pulse Ox 95 02/04/25 08:01 O2 Del Method Oxymask 02/04/25 08:01 O2 Flow Rate 10 02/04/25 08:01 FiO2 50 02/04/25 05:43 Oxygen Flow Rate 15 02/04/25 03:44 BMI result Body Mass Index 26.6 <ABA Pfeiffer - Last Filed: 02/04/25 11:36> Constitutional: Alert, in no acute distress. Mental Status: Oriented to person, place and time. Eyes: Pupils are equal, round, and reactive to light. Ear, Nose, and Throat: Oropharynx clear, mucous membranes moist. Ears and nose without deformities. Trachea midline. Respiratory: Clear to auscultation bilaterally. No wheezing, rales, or rhonchi. Pt with Oxymask on, speaking in full sentences. No accessory muscle use. Cardiovascular: S1, S2 regular. No murmurs, rubs, or gallops. Gastrointestinal: Abdomen soft, non-tender, non-distended. Normal bowel sounds. Neurologic: Cranial nerves II-XII are grossly intact bilaterally. No focal neurological deficits. Moves all extremities spontaneously. Global weakness. Upper extremity resting tremors. Skin: Warm, dry. Extremities: No edema. Psychiatric: Normal mood and affect. <ABA Pfeiffer - Last Filed: 02/04/25 11:36> Results Labs CBC and Chem 7: 02/04/25 04:04 02/04/25 04:04 <ABA Pfeiffer - Last Filed: 02/04/25 11:36> Labs: Laboratory Results - last 24 hr 02/04/25 02/04/25 02/04/25 04:04 04:08 04:13 MCV 90.2 MCH 31.1 MCHC 34.5 RDW 15.1 Plt Count 187 D MPV 9.7 Immature Gran % (Auto) 0.4 Neut % (Auto) 80.2 H Lymph % (Auto) 8.4 L [place] % (Auto) 6.6 Eos % (Auto) 4.0 Baso % (Auto) 0.4 Lymph # (Auto) 1.0 L [place] # (Auto) 0.8 Eos # (Auto) 0.5 H Baso # (Auto) 0.1 Abs Immat Gran (auto) 0.05 H Absolute Neuts (auto) 9.5 H Absolute Nucleated RBC 0.000 Nucleated RBC % (auto) 0.0 VBG pH 7.46 H VBG pCO2 53 VBG pO2 29 VBG HCO3 38 H VBG O2 Saturation 46.0 VBG Base Excess 12.9 Anion Gap 17 Estim Creat Clear Calc 11.4 Estimated GFR 11 Random Glucose 97 Lactic Acid 1.5 Calcium 8.6 D Magnesium 2.0 Total Bilirubin 0.6 Direct Bilirubin 0.2 AST 22 ALT 11 Alkaline Phosphatase 80 B-Natriuretic Peptide 2775 H Total Protein 6.6 Albumin 3.7 Stool Occult Blood Influenza Type A (PCR) POSITIVE A Influenza Type B (PCR) NEGATIVE RSV RNA Qual (PCR) NEGATIVE SARS-CoV-2 RNA (RT-PCR) NEGATIVE Blood Type Antibody Screen 02/04/25 02/04/25 05:45 06:59 MCV MCH MCHC RDW Plt Count MPV Immature Gran % (Auto) Neut % (Auto) Lymph % (Auto) [place] % (Auto) Eos % (Auto) Baso % (Auto) Lymph # (Auto) [place] # (Auto) Eos # (Auto) Baso # (Auto) Abs Immat Gran (auto) Absolute Neuts (auto) Absolute Nucleated RBC Nucleated RBC % (auto) VBG pH VBG pCO2 VBG pO2 VBG HCO3 VBG O2 Saturation VBG Base Excess Anion Gap Estim Creat Clear Calc Estimated GFR Random Glucose Lactic Acid Calcium Magnesium Total Bilirubin Direct Bilirubin AST ALT Alkaline Phosphatase B-Natriuretic Peptide Total Protein Albumin Stool Occult Blood NEGATIVE Influenza Type A (PCR) Influenza Type B (PCR) RSV RNA Qual (PCR) SARS-CoV-2 RNA (RT-PCR) Blood Type A Positive Antibody Screen NEGATIVE <ABA Pfeiffer - Last Filed: 02/04/25 11:36> Assessment and Plan (1) Acute hypoxic respiratory failure: Status: Resolved <ABA Pfeiffer - Last Filed: 02/04/25 11:36> (2) Multifocal pneumonia: Status: Resolved <ABA Pfeiffer - Last Filed: 02/04/25 11:36> Pt is a 70-year-old male with a PMH significant for?ESRD on HD M/W/F, insulin-dependent type 2 diabetes, hypothyroidism, HLD, normocytic anemia of chronic disease, hypothyroidism, GERD, and mood disorder who presents to the ED after mechanical fall earlier this morning while attempting to get out of bed. Pt is admitted to the hospital for treatment and further evaluation of acute hypoxic respiratory failure in the setting of recurrent bilateral pneumonia. Acute hypoxic respiratory failure in the setting of recurrent bilateral pneumonia with sepsis Pt with SOB, BENAVIDES, cough, desatting to 80s and needing rescue CPAP in the ED CT of chest showing patchy bilateral ground-glass opacities concerning for multifocal pneumonia The pt previously hospitalized and treated for bilateral pneumonia 1 month prior on 01/09/2025 with ceftriaxone and azithromycin Has had multiple hospitalizations and stays at [facility] in the past month Meets sepsis criteria with fever and tachycardia; lactic acid WNL Pt given IVF and started on broad-spectrum antibiotics in the ED Will treat with vancomycin and cefepime, started 02/04/2025 Check MRSA swab, Legionella, strep pneumo Pulmonology consult for recurrent pneumonia Titrate supplemental O2 >92, wean as tolerated Monitor respiratory status Influenza type a infection Does not appear to be acute Has tested positive for the 4th time since 01/07/2025 No indication for treatment at this time Elevated BNP BNP 2775 Critically elevated, in line with previous In the setting of ESRD Chronic normocytic anemia Stable from previous Likely secondary to ESRD Stool negative for occult blood, no signs of bleeding ESRD on HD M/W/F Nephrology consult, [place] [facility] [place]ceived a modified dialysis schedule last week, Thursday and a 5-hour session on Thursday Continue Lokelma, Renvela Follow lytes Monitor on telemetry Insulin-dependent type [address] sliding scale insulin Continue Lantus Diabetic diet Chronic leg pain Continue home p.o. Dilaudid HTN Continue amlodipine, atenolol, and losartan HLD Continue statin Code status Pt currently a full code, though is considering DNR/DNI Pt has been steadily declining for the past 4 years, precipitously so in the past year with multiple hospitalizations Pt has been contemplating stopping dialysis and going on hospice Consider Hospice consult if appropriate Full Code Attending:?Dr. Garcia DVT Prophylaxis: Heparin Pt will require a hospitalization of at least two nights for treatment of?acute hypoxic respiratory failure in the setting of recurrent multifocal pneumonia with sepsis. Pt has significant comorbidities including ESRD on HD and multiple recent hospitalizations, and will thus require hospital level care due to administration of supplemental oxygen, IV antibiotics, and specialist consultation with pulmonology. <ABA Pfeiffer - Last Filed: 02/04/25 11:36> Pt is a 70-year-old male with a PMH significant for?ESRD on HD M//, insulin-dependent type 2 diabetes, hypothyroidism, HLD, normocytic anemia of chronic disease, hypothyroidism, GERD, and mood disorder who presents to the ED after mechanical fall earlier this morning while attempting to get out of bed. Pt is admitted to the hospital for treatment and further evaluation of acute hypoxic respiratory failure in the setting of recurrent bilateral pneumonia. Acute hypoxic respiratory failure in the setting of recurrent bilateral pneumonia with sepsis Pt with SOB, BENAVIDES, cough, desatting to 80s and needing rescue CPAP in the ED CT of chest showing patchy bilateral ground-glass opacities concerning for multifocal pneumonia The pt previously hospitalized and treated for bilateral pneumonia 1 month prior on 01/09/2025 with ceftriaxone and azithromycin Has had multiple hospitalizations and stays at [facility] in the past month Meets sepsis criteria with fever and tachycardia; lactic acid WNL Pt given IVF and started on broad-spectrum antibiotics in the ED Will treat with vancomycin and cefepime, started 02/04/2025 Check MRSA swab, Legionella, strep pneumo Pulmonology consult for recurrent pneumonia Titrate supplemental O2 >92, wean as tolerated Monitor respiratory status Influenza type a infection Does not appear to be acute Has tested positive for the 4th time since 01/07/2025 No indication for treatment at this time Elevated BNP BNP 2775 Critically elevated, in line with previous In the setting of ESRD Chronic normocytic anemia Stable from previous Likely secondary to ESRD Stool negative for occult blood, no signs of bleeding ESRD on HD M/W/F Nephrology consult, [place] [facility] Received a modified dialysis schedule last week, Thursday and a 5-hour session on Thursday Continue [place] Follow lytes Monitor on telemetry Insulin-dependent type [address] sliding scale insulin Continue Lantus Diabetic diet Chronic leg pain Continue home p.o. Dilaudid HTN Continue amlodipine, atenolol, and losartan HLD Continue statin Code status Pt currently a full code, though is considering DNR/DNI Pt has been steadily declining for the past 4 years, precipitously so in the past year with multiple hospitalizations Pt has been contemplating stopping dialysis and going on hospice Consider Hospice consult if appropriate Full Code Attending:?Dr. Garcia DVT Prophylaxis: Heparin Pt will require a hospitalization of at least two nights for treatment of?acute hypoxic respiratory failure in the setting of recurrent multifocal pneumonia with sepsis. Pt has significant comorbidities including ESRD on HD and multiple recent hospitalizations, and will thus require hospital level care due to administration of supplemental oxygen, IV antibiotics, and specialist consultation with pulmonology. addm: Patient was admitted for acute hypoxemic respiratory failure secondary to multifocal pneumonia/sepsis: Initially was on CPAP, then taper to nasal cannula by ED but quickly required higher oxygen demand is going to high-flow, started on IV antibiotics-consulted ICU: Patient will require higher level of care considering multiple medical comorbidities in the setting of acute hypoxemic respiratory failure. <Chandler Garcia MD - Last Filed: 02/04/25 15:00> Quality Stroke Does the patient have a stroke diagnosis?: No <ABA Pfeiffer - Last Filed: 02/04/25 11:36> VTE Prior VTE?: No <ABA Pfeiffer - Last Filed: 02/04/25 11:36> VTE Risk Level:: Medical - moderate - high <ABA Pfeiffer - Last Filed: 02/04/25 11:36> VTE Device Contraindication: Treatment Not Indicated <ABA Pfeiffer - Last Filed: 02/04/25 11:36> VTE Drug Contraindication: N/A - Med Ordered <ABA Pfeiffer - Last Filed: 02/04/25 11:36>
[2025-02-04] MEDS: HYDROmorphone HCl 2 MG TABLET 4 MG PO ×4 (08:51→20:24)
--- NOTE | 2025-02-04 08:58 | PC.NURSE ---
This RN called and discussed placing pt back on CPAP as he was satting 86-90 on 12L of the oxy mask. MD Grullon aware, this RN placed back on CPAP setting 10:50, pt tolerating well at this time, PO dilaudid also given at this time,
--- NOTE | 2025-02-04 09:36 | PC.NURSE ---
Admitting provider and ED MD in discussion about admitting patient, pt was placed on 2L NC at this time per MD request. Pt does visually look more comfortable at this time post pain medication administration. Pt removed from CPAP. NC in place, at this time pt is tolerating, this RN advocated for O2 requirement this AM, and Oxy mask/ High flow but MD wanted NC at this time. see flow sheet for documentation
--- NOTE | 2025-02-04 10:05 | PC.NURSE ---
Pt not tolerating MD PEDRO at bedside, placed back on Oxy mask, pt has been titrated up to 12L again at this time, is still sating in mid-upper 80s, this RN calling resp to place pt on high flow to assess tolerance. If pt does well leave on high flow to floor admit, will continue to assess need for placement back on CPAP.
--- NOTE | 2025-02-04 10:51 | PHA.PROG ---
Admission Date/Time: February 04, 2025 09:51 Indication:Respiratory Weight in k.7 kg Serum Creatinine - Last 168 Hours 02/04/25 04:04 Creatinine 5.35 H* Estimated CrCl and GFR - Last 168 Hours 02/04/25 04:04 Estim Creat Clear Calc 11.4 Estimated GFR 11 Vancomycin Loading Dose: 1,500mg Current Vancomycin Dosing Regimen: Dosing post HD Date and Time for next Vancomycin Level to be drawn: 02/06 @ 1800 post diaylsis Pharmacist Comments on Vancomycin Plan: MD Report states pt's new HD schedule is no TuThSa, but after checking with RN, she states It was only TuTh[facility] when he was at the residential he just got dc from them like 2 days ago, and went back to his normal schedule of MWF yesterday (02/03). I talked with his and got the clear story, EMS and him were confused. But he is now admitted , krishna may be able to answer about dialysis. Vancomycin dosing will take advantage of [employer] as a clinical decision support tool that uses Bayesian modeling to calculate individual patient's pharmacokinetic parameters and forecast the patient's drug concentration time course with the target goal AUC 24 range of 400 - 600 mg/L/hr.
[2025-02-04 11:27] LABS: Glucose, Whole Blood 98 mg/dL (60-115)
[2025-02-04] MEDS: Sodium Zirconium Cyclosilicate 10 GM POWD.PACK PO (11:32)
[2025-02-04] MEDS: cefEPime HCl 1 GM in 0.9 % Sodium Chloride 50 ML IV (11:32)
[2025-02-04 11:35] LABS: MRSA Nasal PCR NEGATIVE (Negative); SA Nasal PCR NEGATIVE (Negative)
--- NOTE | 2025-02-04 11:36 | PC.NURSE ---
This RN reached out to clarify Vanco one time dose d.t it being above renal dosing, and pt is not getting HD until Thursday. Provider okay'd one time dose today, and then to continue renal dosing on MWF next week, pharmacy aware of plan, pt updated of plan. Currently maintaining on High flow only one increase to FiO2 of 38% made, per MD to stay on this setting unless an episode happens. Continued conversation of code status and wishes had with patient and provider if things continue to not go in the right direction. MD called to ask questions about pain medications, this RN alerted that he has been taking his home Dilaudid every 3, but this RN feels there should be a back up pain medication d/t his resp status once he is in pain. Report given to on coming nurse at this time of POC, and current orders/ situations.
--- NOTE | 2025-02-04 11:49 | PC.NURSE ---
Assumed care of this patient at this time. Patient currently on HF, sats 96 - 98%, does look winded/WOB. US [employer] DES[employer] ENGINEER called to bedside to place US line as patient is to get Vanco and currently has 22 in R wrist area. Endorses mild diffuse pain. Plan to admit to med/tele, waiting bed assignment at this time.
[2025-02-04] MEDS: Sevelamer Carbonate Tablet 800 MG TABLET 1600 MG PO ×2 (12:16→16:11)
[2025-02-04] MEDS: Heparin Sodium,Porcine 5,000 UNIT/ML VIAL 5000 UNIT SUBCUT ×2 (12:24→18:31)
[2025-02-04] MEDS: ALPRAZolam 0.5 MG TABLET PO (12:25)
[2025-02-04] MEDS: vancomycin HCL 1,500 MG in 0.9 % Sodium Chloride 500 ML 333.33 MG IV (12:25)
[2025-02-04] MEDS: Cholecalciferol (Vitamin D3) 25 MCG TABLET 125 MCG PO (12:25)
--- NOTE | 2025-02-04 12:40 | PC.NURSE ---
Patient repositioned in bed, very stiff, rectal probe placed to monitor patient's ongoing elevated temp. Temp currently 99.9 via rectal probe. Ordered medication given, patient able to tolerate PO pills 1 @ a time w/ assistance d/t WOB/lethargy. ICU consulted d/t patient's condition, continues WOB even on HF. ICU accepting patient.
[2025-02-04 12:42] LABS: ABG Base Excess 9.5 mmol/L; ABG HCO3 31 mmol/L (22-26); ABG pCO2 34 mmHg (32-45); ABG pH 7.57 (7.35-7.45); ABG pO2 58 mmHg (83-108)
[2025-02-04 12:43] LABS: ABG Refer to POC result
--- NOTE | 2025-02-04 12:59 | W.PM.CCCN ---
History of Present Illness Data of Consult Service Date: 02/04/25 Primary Care Provider: Unknown Physician HPI Reason for consult: hypoxia 70-year-old male with past medical history of ESRD on maintenance hemodialysis Thursday with last hemodialysis yesterday lasting for about 5 hours at outside facility presented to the ED following a fall.His PMH is also significant for diabetes mellitus, HLP, hypothyroidism, mood disorder. This is his fourth admission in the past month for different problems. He tested positive for influenza since 01/07/2025, CT chest today suggestive of some ground glass opacities possibly suggesting pulmonary edema. He is on high aleksey oxygen 35%, 40L/min, ICU consulted for transfer. Review of Systems Review of Systems: Yes all other systems are reviewed and are negative PMFSH Past Medical History Medical History (Updated 02/04/25 @ 13:58 by Devendra Peraza MD) End stage kidney disease Occult blood positive stool Anemia Internal jugular vein thrombosis Abnormality of gait ESRD needing dialysis Secondary hyperparathyroidism (of renal origin) Anemia in chronic kidney disease DONIS (acute kidney injury) End stage renal disease on dialysis Diabetes Kidney failure HTN (hypertension) Social History Social History Household Members: Spouse Housing: House Are you a primary rn intensive care unit to a significant other at home: No Do you presently have visiting nurse or other home services: No Alcohol intake: never Comment: sitter in place Patient Tobacco Use Status: Never used Tobacco Cigarette Packs Per Day: 0 Cigarettes Per Day: 0.0 Years Smoked: NA Smoked in Last 30 Days: No e-Cigarette/Vaping Use: Never Used Second Hand Smoke Exposure: No Use of substances other than those prescribed or required for medical reasons: No Advance Directives: Yes Advance Directives on File: Yes Advance Directives Date on File: 09/07/23 Nutrition Risks: No Nutritional Risk service: No Meds Allergies Allergy/AdvReac Type Severity Reaction Status Date / Time Penicillins [PENICILLINS] Allergy Unknown RASH Verified 02/04/25 03:51 tramadol [From ULTRAM] Allergy Unknown RASH Verified 02/04/25 03:51 trazodone [TRAZODONE] Allergy Unknown PRIAPISM Verified 02/04/25 03:51 risperidone [RISPERIDONE] AdvReac Severe dizzy, EPS Verified 02/04/25 03:51 Active Medications: Current Medications Acetaminophen (Acetaminophen 325 Mg Tablet) 650 mg PO Q6H PRN PRN Reason: Pain, Mild 1-3,fever,headache Albuterol Sulfate (Albuterol Sulfate (0.083%) 2.5 Mg/3 Ml Vial.Neb) 2.5 mg INHALE Q6H PRN PRN Reason: Wheezing Albuterol Sulfate (Albuterol Sulfate 90 Mcg 8 Gm Inhaler) 2 puff INHALE Q6H PRN PRN Reason: Shortness Of Breath Or Wheezing Alprazolam (Alprazolam 0.5 Mg Tablet) 0.5 mg PO DAILY PRN PRN Reason: anxiety attack Last Admin: 02/04/25 12:25 Dose: 0.5 mg Alprazolam (Alprazolam 0.5 Mg Tablet) 2 mg PO BID [facility] Amlodipine Besylate (Amlodipine Besylate 5 Mg Tablet) 5 mg PO BID [facility]; Protocol Amphetamine/Dextroamphetamine (Amphetamine Mixed Salts 20 Mg Tablet) 20 mg PO TID@0800,1400,1800 [facility] Atenolol (Atenolol 100 Mg Tablet) 100 mg PO DAILY [facility]; Protocol Atorvastatin Calcium (Atorvastatin Calcium 40 Mg Tablet) 40 mg PO DAILY [facility] Calcium Carbonate (Calcium Carbonate 750 Mg Tab.Chew) 750 mg PO Q4H PRN PRN Reason: Heartburn Dextrose (Dextrose 50 % 25 Gm/50 Ml Syringe) 25 gm IVPUSH Q15M PRN; Protocol PRN Reason: per Hypoglycemia Standing Ord. Glucose (Glucose Gel 15 Gm Gel..Gram.) 15 gm PO Q15M PRN; Protocol PRN Reason: per Hypoglycemia Standing Ord. Heparin Sodium (Porcine) (Heparin Sodium,Porcine 5,000 Unit/Ml Vial) 5,000 unit SUBCUT Q8H [facility] Last Admin: 02/04/25 12:24 Dose: 5,000 unit Hydromorphone HCl (Hydromorphone Hcl 2 Mg Tablet) 4 mg PO Q3H PRN PRN Reason: Severe Pain (Scale Score 7-10) Last Admin: 02/04/25 12:16 Dose: 4 mg Vancomycin HCl 500 mg/ Sodium (Chloride) 110 mls @ 110 mls/hr IV ONCE ONE Stop: 02/04/25 11:59 Cefepime HCl 1 gm/ Sodium (Chloride) 50 mls @ 100 mls/hr IV Q24H [facility] Last Infusion: 02/04/25 12:25 Dose: Infused Insulin Glargine (Insulin Glargine,Hum.Rec.Anlog 100 Unit/Ml 10 Ml Vial) 7 unit SUBCUT BEDTIME [facility] Insulin Human Lispro (Insulin Lispro 100 Unit/Ml 3 Ml Vial) 0 unit SUBCUT QIDACHS [facility]; Protocol Last Admin: 02/04/25 11:39 Dose: Not Given Levothyroxine Sodium 112 mcg/ (Levothyroxine Sodium 25 mcg) 137 mcg PO DAILY@0600 [facility] Losartan Potassium (Losartan Potassium 50 Mg Tablet) 100 mg PO DAILY [facility]; Protocol Magnesium Hydroxide (Milk Of Magnesia 30 Ml Oral.Susp) 30 ml PO DAILY PRN PRN Reason: Constipation Melatonin (Melatonin 3 Mg Tablet) 6 mg PO BEDTIME PRN PRN Reason: Insomnia Omeprazole (Omeprazole 40 Mg Capsule.Dr) 40 mg PO BID@0630,1630 [facility] Pharmacy Consult (Consult Rx Vancomycin Dosing) 1 each MISCELLANE DAILY PRN PRN Reason: Consult order Quetiapine Fumarate (Quetiapine Fumarate 25 Mg Tablet) 25 mg PO BID PRN PRN Reason: Agitation Sevelamer Carbonate (Sevelamer Carbonate Tablet 800 Mg Tablet) 800 mg PO DAILY PRN PRN Reason: SNACKS Sevelamer Carbonate (Sevelamer Carbonate Tablet 800 Mg Tablet) 1,600 mg PO TIDWM [facility] Last Admin: 02/04/25 12:16 Dose: 1,600 mg Sodium Chloride (0.9 % Sodium Chloride Flush 3 Ml Syringe) 3 ml IVFLUSH [facility] Sodium Zirconium Cyclosilicate (Sodium Zirconium Cyclosilicate 10 Gm Powd.Pack) 10 gm PO SUTUTHSA@0900 [facility] Last Admin: 02/04/25 11:32 Dose: 10 gm Sucralfate (Sucralfate 1 Gm Tablet) 1 gm PO BID [facility] Vitamin D (Cholecalciferol (Vitamin D3) 25 Mcg Tablet) 125 mcg PO SuTuThSa@0900 [facility] Last Admin: 02/04/25 12:25 Dose: 125 mcg Home Medications ?Medication ?Instructions ?Recorded ?Confirmed ?Last Taken ?Type atenolol 100 mg tablet 1 tab PO DAILY 07/11/21 02/04/25 02/02/25 History blood sugar diagnostic (FreeStyle 07/11/21 10/30/24 10/30/24 09:00 History Lite Strips) dextroamphetamine-amphetamine 20 1 tab PO TID@0800,1400,1800 07/11/21 02/04/25 02/02/25 History mg tablet levothyroxine 137 mcg tablet 1 tab PO DAILY@0600 07/11/21 02/04/25 02/02/25 History pen needle, diabetic 31 gauge x 07/11/21 10/30/24 10/30/24 09:00 History 5/16 (BD Ultra-Fine Short Pen Needle) amlodipine 5 mg tablet 5 mg PO BID 09/03/23 02/04/25 02/02/25 History atorvastatin 40 mg tablet 40 mg PO DAILY 02/22/24 02/04/25 02/02/25 History sodium zirconium cyclosilicate 10 10 g PO SUTUTHSA@0900 06/19/24 02/04/25 02/02/25 History gram oral powder packet (Lokelnd) alprazolam 0.5 mg tablet 0.5 mg PO DAILY PRN anxiety attack 10/30/24 02/04/25 02/02/25 History alprazolam 2 mg tablet 2 mg PO BID 10/30/24 02/04/25 02/02/25 History insulin lispro 100 unit/mL See Protocol subcut TIDAC PRN 10/30/24 02/04/25 10/30/24 09:00 History subcutaneous pen (Humalog KwikPen Blood Glucose (U-100) Insulin) vitamin D3 25 mcg (1,000 unit)-vit 1 tab PO SUTUTHSA@0900 11/02/24 02/04/25 02/02/25 History K2 90 mcg disintegrating tablet losartan 100 mg tablet 100 mg PO DAILY 01/09/25 02/04/25 02/02/25 History sevelamer carbonate 800 mg tablet 1,600 mg PO TIDWM 01/09/25 02/04/25 02/02/25 History albuterol sulfate 2.5 mg/3 mL 2.5 mg inhalation Q6H PRN Wheezing 01/18/25 02/04/25 Unknown History (0.083 %) solution for nebulization albuterol sulfate 90 mcg/actuation 2 puff inhalation Q6H PRN 01/18/25 02/04/25 Unknown History aerosol inhaler (Ventolin HFA) Shortness Of Breath Or Wheezing calcium carbonate (Tums) 200 mg PO TID PRN UPSET STOMACH 01/18/25 02/04/25 Unknown History cholecalciferol (vitamin D3) 125 125 mcg PO SUTUTHSA@0900 01/18/25 02/04/25 02/02/25 History mcg (5,000 unit) tablet (Vitamin D3) insulin glargine 100 unit/mL 10 unit subcut BEDTIME 01/18/25 02/04/25 Unknown History subcutaneous solution (Lantus U-100 Insulin) melatonin 5 mg tablet 5 mg PO BEDTIME PRN Insomnia 01/18/25 02/04/25 Unknown History quetiapine 25 mg tablet (Seroquel) 25 mg PO BID PRN Agitation 01/18/25 02/04/25 Unknown History sevelamer carbonate 800 mg tablet 800 mg PO DAILY PRN SNACKS 01/18/25 02/04/25 02/02/25 History vitamin B complex and vitamin C 1 cap PO SUTUTHSA@0900 01/18/25 02/04/25 Unknown History no.20-folic acid 1 mg capsule omeprazole 40 mg capsule,delayed 40 mg PO BID@0630,1630 02/04/25 02/04/25 Unknown History release Physical Exam Vital Signs: Vital Signs: Last Vital Signs Temp 99.9 F 02/04/25 12:34 Pulse 86 02/04/25 12:34 Resp 20 02/04/25 12:34 BP 157/71 H 02/04/25 12:34 Pulse Ox 96 02/04/25 12:34 O2 Del Method High Flow Nasal C annula 02/04/25 12:34 O2 Flow Rate 50 02/04/25 12:34 FiO2 35 02/04/25 12:34 Oxygen Flow Rate 15 02/04/25 03:44 BMI result Body Mass Index 26.6 Const: Orientation/consciousness: oriented to person, oriented to place and patient oriented x3 HEENT: Head: Yes No palpable skull fracture present and Yes normocephalic Eyes: General: appearance normal, both eyes and all related structures Visual Rider: normal visual rider by confrontation Alignment and Position: alignment normal and position normal Chest: Chest palpation & inspection: normal inspection of the chest and normal palpation of entire chest wall Resp: Effort & Inspection: labored and pursed lip breathing Auscultation: crackles bilateral Cardio: Rate: regular rate Rhythm: regular rhythm Heart sounds: S1 normal heart sound present and S2 normal heart sound present GI: Palpation (GI): Soft to palpation and nontender Percussion: Yes normal to percussion Skin: General skin exam: turgor normal and dry skin Neuro: General: oriented to person, oriented to place, patient oriented x3 and no focal motor deficits Results Labs 02/04/25 04:04 02/04/25 04:04 Labs: Short CBC 02/04/25 Range/Units 04:04 WBC 11.8 H (4.8-10.8) X10*3/uL Hgb 8.2 L (14.0-18.0) g/dl Hct 23.8 L (42.0-52.0) % Plt Count 187 D (160-400) X10*3/uL BMP 02/04/25 04:04 Sodium 140 Potassium 4.4 Chloride 100 Carbon Dioxide 27 BUN 13 Creatinine 5.35 H* Calcium 8.6 D Liver Function 02/04/25 Range/Units 04:04 Total Bilirubin 0.6 (0.0-1.0) mg/dL Direct Bilirubin 0.2 (0.0-0.5) mg/dL AST 22 (5-37) U/L ALT 11 (0-40) U/L Alkaline Phosphatase 80 (39-117) U/L Albumin 3.7 (3.5-5.0) g/dL Assessment and Plan (1) CHF (congestive heart failure): Status: Acute (2) Acute anemia: Status: Acute (3) Pneumonia: Status: Acute (4) Multifactorial gait disorder: Status: Acute Plan Acute hypoxemic respiratory failure: Possibly secondary to pulmonary edema vs viral infection currently on high aleksey oxygen, will see if BIPAP helps his breathing Influenza is positive for over a month now, unlikely to be source of infection cannot rule out superadded bacterial infection continue vancomycin and cefepime will ask Nephrology to do an additional session of HD tomorrow if possible ESRD: on maintenance hemodialysis M// next session as per HD continue lokelma and sevelamer Hypertension: continue losartan and atenolol hypothyroidism: continue levothyroxine Diabetes mellitus: sugars under control continue lantus 7U daily and sliding scale insulin Prophylaxis: heparin
--- NOTE | 2025-02-04 13:25 | PC.NURSE ---
RN to RN report given to Anil, all questions answered, patient to be transferred to ICU when transport available.
[2025-02-04] MEDS: Furosemide 100 MG/10 ML VIAL IVPUSH (14:21)
[2025-02-04] MEDS: Acetaminophen 325 MG TABLET 650 MG PO ×2 (14:22→20:25)
--- NOTE | 2025-02-04 15:07 | PC.NURSE ---
Addendum entered by Anil Lewis RN 02/04/25 17:42: pt stated he no longer wants to take PO dilaudid as it had no effect on his pain and requested that he be placed on fentanyl as it had a positive effect. was informed. Md was also informed that the pt has not voided after receiving IVP lasix Addendum entered by Anil Lewis RN 02/04/25 15:29: md informed of pt's temp Original Note: Pt moaning, yelling help me please, im in pain. pt's bp 164/76. pt was informed oral pain meds were just given. Md informed of pt's status and vitals. pt is not giving more details on pain except stating 10 and its everywhere
[2025-02-04] MEDS: fentaNYL citrate/PF 100 MCG/2 ML VIAL 25 MCG IVPUSH ×3 (15:43→23:08)
[2025-02-04 15:58] LABS: MRSA Nasal PCR NEGATIVE (Negative); SA Nasal PCR NEGATIVE (Negative)
[2025-02-04] MEDS: Labetalol HCL 100 MG/20 ML VIAL 20 MG IVPUSH (16:11)
[2025-02-04] MEDS: Omeprazole 40 MG CAPSULE.DR PO (16:11)
--- NOTE | 2025-02-04 16:34 | MHC.CM.PN ---
CM ATTEMPTED TO MEET W/PT HOWEVER PT WOULD LIKE ART TO CONTACT HIS PIETROART TO FOLLOW-UP W/PIETRO TOMORROW 02/05/25.
[2025-02-04 16:39] LABS: Glucose, Whole Blood 108 mg/dL (60-115)
[2025-02-04] MEDS: Sucralfate 1 GM TABLET PO (20:25)
[2025-02-04] MEDS: amLODIPine Besylate 5 MG TABLET PO (20:25)
[2025-02-04] MEDS: 0.9 % Sodium Chloride Flush 3 ML SYRINGE IVFLUSH (20:29)
[2025-02-04 20:59] LABS: Glucose, Whole Blood 115 mg/dL (60-115)
[2025-02-04 21:00] LABS: MANUAL DIFF FLAG NO
[2025-02-04 21:03] LABS: Basophils Absolute Auto 0.1 X10*3/uL (0.0-0.2); Basophils Percent Auto 0.4 % (0-2); Eosinophils Absolute Auto 0.1 X10*3/uL (0.0-0.4); Eosinophils Percent Auto 0.5 % (0-4); Hematocrit 23.5 % (42.0-52.0); Hemoglobin 8.2 g/dl (14.0-18.0); Imm Gran Abs Auto 0.05 X10*3/uL (0.00-0.03); Imm Gran Pct Auto 0.4 % (0.0-0.4); Lymphocytes Absolute Auto 1.3 X10*3/uL (1.2-4.9); Lymphocytes Percent Auto 9.7 % (20-40); Mean Corpuscular HGB Conc 34.9 g/dl (31.0-36.0); Mean Corpuscular Hemoglobin 31.3 pg (27.0-33.0); Mean Corpuscular Volume 89.7 fL (80.0-98.0); Monocytes Absolute Auto 0.9 X10*3/uL (0.1-1.2); Monocytes Percent Auto 6.6 % (2-11); Neutrophils Absolute Auto 11.2 x10*3/uL (2.0-8.3); Neutrophils Percent Auto 82.4 % (45-73); Platelet Count 175 X10*3/uL (160-400); Red Blood Count 2.62 X10*6/uL (4.60-5.80); Red Cell Distribution Width 15.3 % (11.0-16.0); White Blood Count 13.6 X10*3/uL (4.8-10.8)
[2025-02-04 21:24] LABS: Alanine Aminotransferase 7 U/L (0-40); Albumin Level 3.3 g/dL (3.5-5.0); Alkaline Phosphatase 71 U/L (39-117); Anion Gap 19 (12-20); Aspartate Amino Transferase 22 U/L (5-37); Bilirubin Total 0.6 mg/dL (0.0-1.0); Blood Urea Nitrogen 19 mg/dL (9-16); Calcium 8.1 mg/dL (8.4-10.2); Carbon Dioxide 21 mmol/L (22-29); Chloride 97 mmol/L (96-108); Estimated Glomerular Filt Rate 9; Glucose Random 129 mg/dL (60-115); Potassium 4.6 mmol/L (3.3-5.1); Sodium 132 mmol/L (135-145); Total Protein 6.1 g/dL (6.5-8.0)
[2025-02-05] VITALS (44 sets, daily range): BP systolic 122–159; BP diastolic 56–72; PULSE 74–98; RESP 14–34; TEMP 37.2–39.5; O2SAT 86–100; BMI 26.9
[2025-02-05] MEDS: HYDROmorphone HCl 1 MG/ML SYRINGE IVPUSH (00:24)
[2025-02-05] MEDS: Heparin Sodium,Porcine 5,000 UNIT/ML VIAL 5000 UNIT SUBCUT ×3 (01:32→20:03)
[2025-02-05] MEDS: HYDROmorphone HCl 2 MG/ML VIAL IVPUSH ×7 (01:32→20:05)
[2025-02-05] MEDS: Acetaminophen 325 MG TABLET 650 MG PO ×2 (01:33→17:45)
--- NOTE | 2025-02-05 02:06 | P.ACPN_ITS ---
Advanced Care Planning Note Advanced Care Planning Note Discussed with: family member(s) (Kyara patient's and HCP) Time spent (in minutes): 30 Narrative: 0155 am on 02/05/2025 Currently the patient is alert and follows directions but he is not competent to make decisions as he is not given appropriate answers to complex questioning. I will contact the patient's healthcare proxy. I had a very lengthy conversation with the patient's who is also his he althcare proxy (Kyara); we talked about his current clinical status over the phone in the fact that he is requiring full high-flow oxygenation along with a OxyMask. However the most concerning thing is the fact the patient continues to yell janinean and kateyan regarding his diffuse pain. According to the patient's , this has been the scenario for the past 3 years but he has decompensated significantly over the last couple of months and certainly over the last couple of weeks. She is very aware of his comorbidities and asked many questions regarding his current clinical status, appears to be very involved and knowledgeable regarding the multitude of his diseases. After lengthy discussion, she kindly asked that we will simply do everything that we can to keep him comfortable; we did discuss the fact that there is a fine line between pain control and over-sedation which could lead to respiratory depression. This is something that she has been concerned about because she states he has had no quality of life. They recently had a discussion regarding goals of care when he was at home and mentating well. Given the patient's current clinical state, poor quality of life, chronic health issues and current clinical scenario, she kindly asked that we would make him do not resuscitate and [id number]. She also asked not to let him suffer and to try anything possible medically without escalating care or doing anything invasive. She also kindly asked that we would not push it ; in case he was to need positive pressure but did not tolerated, she would rather him being comfortable any if this caused his demise she would be okay with it. All of the above information was discussed in detail back to the patient's nurse Soco over the phone. Code status was changed to DNR DNI. I will add Dilaudid 2 mg every 2 hours as needed for breakthrough pain. I have obtain a venous gas which reveals pH of 7.5, pCO2 34, PO2 33.4 bicarb 27. At this point I will continue with oxygen supplementation via high-flow and OxyMask. The patient is currently satting 91%. Part of the issues also that he has a high-grade fever of 102.7. If needed a cooling blanket will be placed. Critical care time used for critical evaluation of this patient, diagnosis, treatment and coordination of care, review her records and documentation TOTAL CRITICAL CARE TIME 45 MIN . discussion and coordination with consultants, completely separate from any procedures performed. Patient's care was discussed in detail with Dr. Peraza. He is aware of all the above as well as the plan of care for this patient. Problems Discussed (1) Acute hypoxic respiratory failure: (2) Multifocal pneumonia:
--- NOTE | 2025-02-05 02:08 | HO.HCP ---
Health Care Proxy Invocation Health Care Proxy Declaration: Stoney Mayers PAC, on the date cited below, have determined that, Delano Soliz, lacks the capacity to make or communicate, informed health care decision. This determination is made in accordance with accepted standards of medical judgment and pursuant to [place] 201[place], the [place] Health Care Proxy Law. The cause, nature, extent and probable duration of the patient's inapacity are described below: Cause: Metabolic Encephalopathy Nature: Pneumonia and Hypoxuc Res. Failure, Pulm Edema in the setting of ESRD Extent: Moderate Probable Duration of Patient's Incapacity: Undetermined All the above discussed with Kyara the patient's (HCP) over the phone. Goals of care discussed in detail, please see separate note. Conversation witnessed by patient's RN Soco
[2025-02-05 02:24] LABS: VBG Base Excess 4.9 mmol/L; VBG HCO3 27 mmol/L (22-26); VBG pCO2 34 mmHg; VBG pH 7.51 (7.32-7.43); VBG pO2 33 mmHg
[2025-02-05 02:26] LABS: Venous Blood Gas Refer to POC result
--- NOTE | 2025-02-05 02:28 | PC.RT ---
Pt dropping in saturation, increased high flow with oxymask running at 10L, pt with fever 102.7, tachynpeic RR high 20's to mid 30's, MD made aware of pt's condition by RN with RT at bedside, family called by MD, code status changed to DNR/DNI per family request. V60 (CPAP/Bipap) remains on stand by to trial if further interventions are needed. RN aware of High Flow changes and will call RT if changes need to be made. Pt currently stable on current High Flow settings.
[2025-02-05] MEDS: Levothyroxine Sodium 112 MCG, Levothyroxine Sodium 25 MCG 137 MCG PO (04:48)
[2025-02-05] MEDS: Omeprazole 40 MG CAPSULE.DR PO (04:48)
--- NOTE | 2025-02-05 05:03 | HE.NUR.EV ---
Addendum entered by Soco Burger RN 02/05/25 05:47: Per PA/RT- plan for NIV if pt continues to decompensate and can tolerate PPV. V60 placed at bedside by RT. Original Note: Status Change: At approx 0100- pt moaning/crying with 10/10 refractory/breakthrough pain despite PRN dilaudid 4 mg PO and fentanyl 25 mcg IVP per DEC; increasing oxygen requirements/respiratory effort with RR 20-30s, abdominal breathing, desaturating to low 80s on HFNC 50L/70%; and increasing temperature to 102.7 rectally despite PRN APAP 650 mg PO x1 and ice packs to B/L axilla and neck. Immediate Actions Taken: HOB > 30 degrees, encouraged to TCDB. LS auscultated with bibasilar crackles. HFNC increased to 50L/90%. Pt denies SOB/dyspnea. Medicated as above per DEC. Notifications: ABA Reaves, RT Further Monitoring and Treatment: Additional PRN APAP 650 mg PO given per DEC, currently temp down to 101.7 rectally. New order for PRN dilaudid 2 mg IVP q2hr, administered with good effect per pt. On HFNC 50L/100% with 15L OxyMask applied on top to maintain SpO2 goal > 88% per PA. Pt resting with eyes closed, RR 20, breathing even/unlabored. Goals of care conversation initiated by PA with HCP/ Kyara over phone and updated on pt status/plan of care. Code status changed to DNR/DNI.
[2025-02-05 05:46] LABS: Hematocrit 21.8 % (42.0-52.0); Hemoglobin 7.5 g/dl (14.0-18.0); Mean Corpuscular HGB Conc 34.4 g/dl (31.0-36.0); Mean Corpuscular Hemoglobin 31.3 pg (27.0-33.0); Mean Corpuscular Volume 90.8 fL (80.0-98.0); Mean Platelet Volume 10.2 fL (9.4-12.4); Platelet Count 204 X10*3/uL (160-400); Red Cell Distribution Width 15.4 % (11.0-16.0); White Blood Count 15.7 X10*3/uL (4.8-10.8)
[2025-02-05 06:03] LABS: Anion Gap 18 (12-20); Blood Urea Nitrogen 23 mg/dL (9-16); Carbon Dioxide 24 mmol/L (22-29); Chloride 95 mmol/L (96-108); Creatinine Clr Calc Pharmacy 8.7; Estimated Glomerular Filt Rate 8; Glucose Random 133 mg/dL (60-115); Potassium 4.7 mmol/L (3.3-5.1); Sodium 132 mmol/L (135-145)
[2025-02-05 07:15] LABS: Glucose, Whole Blood 127 mg/dL (60-115)
[2025-02-05] MEDS: 0.9 % Sodium Chloride Flush 3 ML SYRINGE IVFLUSH ×3 (08:40→22:01)
[2025-02-05] MEDS: Acetaminophen 1,000 MG/100 ML PIGGYBACK 400 MG IV (10:13)
--- NOTE | 2025-02-05 10:22 | PM.CCPN ---
Subjective Subjective Date of Service: 02/05/25 Interval History: Increasing oxygen requirement overnight, currently on 70% FiO2 on the CPAP. Patient is very drowsy and unable to make any decisions His code status has been converted to DNI DNR by his healthcare proxy. Critical Care Time (minutes): 35 Physical Exam Vital Signs: Vital Signs: Last Vital Signs Temp 102.4 F H 02/05/25 10:00 Pulse 88 02/05/25 10:00 Resp 20 02/05/25 10:00 BP 147/67 H 02/05/25 10:00 Pulse Ox 90 L 02/05/25 10:00 O2 Del Method CPAP 02/05/25 10:00 O2 Flow Rate 50 02/05/25 06:10 FiO2 70 02/05/25 10:00 Oxygen Flow Rate 15 02/04/25 03:44 BMI result Body Mass Index 26.9 General: Elderly male in acute distress, ill appearing and tired appearing Nutritional Appearance: well nourished and overweight Eyes: appearance normal, both eyes and all related structures; Alignment and Position: alignment normal and position normal Neck: No lymphadenopathy, no thyromegaly Resp: bilateral air entry equal, bibasilar crackles present Cardio: Regular rate, regular rhythm; Heart sounds: S1 normal heart sound present and S2 normal heart sound present GI: soft, nontender, no guarding, no hepatosplenomegaly : bladder normal to inspection, bladder normal to palpation, no renal angle tenderness Skin: no rashes or lesions noted and elasticity normal Neuro: Confused, not following commands, moves all extremities Objective Data Labs 02/05/25 04:53 02/05/25 04:53 Labs: Laboratory Results - last 24 hr 02/04/25 02/04/25 02/04/25 10:17 11:23 12:18 WBC RBC Hgb Hct MCV MCH MCHC RDW Plt Count MPV Immature Gran % (Auto) Neut % (Auto) Lymph % (Auto) [place] % (Auto) Eos % (Auto) Baso % (Auto) Lymph # (Auto) [place] # (Auto) Eos # (Auto) Baso # (Auto) Abs Immat Gran (auto) Absolute Neuts (auto) Absolute Nucleated RBC Nucleated RBC % (auto) Hold Purple Top O2 Saturation TNP ABG pH at Pt Temp 7.57 H ABG pCO2 at Pt Temp 34 ABG pO2 at Pt Temp 58 L ABG HCO3 31 H ABG Base Excess (Actual) 9.5 VBG pH VBG pCO2 VBG pO2 VBG HCO3 VBG O2 Saturation VBG Base Excess Sodium Potassium Chloride Carbon Dioxide Anion Gap BUN Creatinine Estim Creat Clear Calc Estimated GFR POC Glucose 98 Random Glucose Calcium Total Bilirubin AST ALT Alkaline Phosphatase Total Protein Albumin Hold Yellow Top Nasal Screen MRSA (PCR) NEGATIVE Nasal S. aureus Screen NEGATIVE Nasal MRSA/S.aureus Interp SEE NOTE 02/04/25 02/04/25 02/04/25 14:10 14:36 16:36 WBC RBC Hgb Hct MCV MCH MCHC RDW Plt Count MPV Immature Gran % (Auto) Neut % (Auto) Lymph % (Auto) [place] % (Auto) Eos % (Auto) Baso % (Auto) Lymph # (Auto) [place] # (Auto) Eos # (Auto) Baso # (Auto) Abs Immat Gran (auto) Absolute Neuts (auto) Absolute Nucleated RBC Nucleated RBC % (auto) Hold Purple Top SEE NOTE O2 Saturation ABG pH at Pt Temp ABG pCO2 at Pt Temp ABG pO2 at Pt Temp ABG HCO3 ABG Base Excess (Actual) VBG pH VBG pCO2 VBG pO2 VBG HCO3 VBG O2 Saturation VBG Base Excess Sodium Potassium Chloride Carbon Dioxide Anion Gap BUN Creatinine Estim Creat Clear Calc Estimated GFR POC Glucose 108 Random Glucose Calcium Total Bilirubin AST ALT Alkaline Phosphatase Total Protein Albumin Hold Yellow Top See Note Nasal Screen MRSA (PCR) NEGATIVE Nasal S. aureus Screen NEGATIVE Nasal MRSA/S.aureus Interp SEE NOTE 02/04/25 02/04/25 02/05/25 20:52 20:55 02:20 WBC 13.6 H RBC 2.62 L Hgb 8.2 L Hct 23.5 L MCV 89.7 MCH 31.3 MCHC 34.9 RDW 15.3 Plt Count 175 MPV 10.0 Immature Gran % (Auto) 0.4 Neut % (Auto) 82.4 H Lymph % (Auto) 9.7 L [place] % (Auto) 6.6 Eos % (Auto) 0.5 Baso % (Auto) 0.4 Lymph # (Auto) 1.3 [place] # (Auto) 0.9 Eos # (Auto) 0.1 Baso # (Auto) 0.1 Abs Immat Gran (auto) 0.05 H Absolute Neuts (auto) 11.2 H Absolute Nucleated RBC 0.000 Nucleated RBC % (auto) 0.0 Hold Purple Top O2 Saturation ABG pH at Pt Temp ABG pCO2 at Pt Temp ABG pO2 at Pt Temp ABG HCO3 ABG Base Excess (Actual) VBG pH 7.51 H VBG pCO2 34 VBG pO2 33 VBG HCO3 27 H VBG O2 Saturation 62.0 VBG Base Excess 4.9 Sodium 132 L Potassium 4.6 Chloride 97 Carbon Dioxide 21 L Anion Gap 19 BUN 19 H Creatinine 6.11 H* Estim Creat Clear Calc 10.0 Estimated GFR 9 POC Glucose 115 Random Glucose 129 H Calcium 8.1 L Total Bilirubin 0.6 AST 22 ALT 7 Alkaline Phosphatase 71 Total Protein 6.1 L Albumin 3.3 L Hold Yellow Top Nasal Screen MRSA (PCR) Nasal S. aureus Screen Nasal MRSA/S.aureus Interp 02/05/25 02/05/25 04:53 07:12 WBC 15.7 H RBC 2.40 L Hgb 7.5 L Hct 21.8 L MCV 90.8 MCH 31.3 MCHC 34.4 RDW 15.4 Plt Count 204 MPV 10.2 Immature Gran % (Auto) Neut % (Auto) Lymph % (Auto) [place] % (Auto) Eos % (Auto) Baso % (Auto) Lymph # (Auto) [place] # (Auto) Eos # (Auto) Baso # (Auto) Abs Immat Gran (auto) Absolute Neuts (auto) Absolute Nucleated RBC 0.000 Nucleated RBC % (auto) 0.0 Hold Purple Top O2 Saturation ABG pH at Pt Temp ABG pCO2 at Pt Temp ABG pO2 at Pt Temp ABG HCO3 ABG Base Excess (Actual) VBG pH VBG pCO2 VBG pO2 VBG HCO3 VBG O2 Saturation VBG Base Excess Sodium 132 L Potassium 4.7 Chloride 95 L Carbon Dioxide 24 Anion Gap 18 BUN 23 H Creatinine 6.96 H* Estim Creat Clear Calc 8.7 Estimated GFR 8 POC Glucose 127 H Random Glucose 133 H Calcium 8.0 L Total Bilirubin AST ALT Alkaline Phosphatase Total Protein Albumin Hold Yellow Top Nasal Screen MRSA (PCR) Nasal S. aureus Screen Nasal MRSA/S.aureus Interp Microbiology Microbiology Results: Microbiology 02/04/25 04:43 Blood - Venous Blood Culture - Preliminary No growth after 24 hours. 02/04/25 04:08 Blood - Venous Blood Culture - Preliminary No growth after 24 hours. Progress Note: A&P Assessment and plan (1) CHF (congestive heart failure): Status: Acute (2) End stage kidney disease: Status: Acute (3) Acute anemia: Status: Acute (4) Pneumonia: Status: Acute (5) Influenza A: Status: Acute Plan Acute hypoxemic respiratory failure: Possibly secondary to pulmonary edema vs viral infection currently on high aleksey oxygen, overnight increase in oxygen requirement currently on 70% FiO2 on CPAP Influenza is positive for over a month now, unlikely to be source of infection. We will get CT abdomen to look for any other source of infection cannot rule out superadded bacterial infection On vancomycin and cefepime; MRSA nares negative we will discontinue vanc ESRD: on maintenance hemodialysis // We will ask Nephrology to do another session of dialysis today given increase in oxygen requirement continue lokelma and sevelamer Hypertension: continue losartan and atenolol hypothyroidism: continue levothyroxine Diabetes mellitus: sugars under control continue lantus 7U daily and sliding scale insulin Prophylaxis: heparin Quality Stroke Does the patient have a stroke diagnosis?: No VTE Prior VTE?: No VTE Risk Level:: Medical - moderate - high VTE Device Contraindication: Treatment Not Indicated VTE Drug Contraindication: N/A - Med Ordered
--- NOTE | 2025-02-05 10:32 | MHC.CM.PN ---
IMM 02/05/25 DELIEVERED TO PT'S [facility] [phone] AT 10:12AM, COPY TO BE LEFT AT BEDSIDE PER REQUEST, PT LIVES W/ [facility], USES A CANE/WALKER /W/C FOR DME AND WAS DISCHARGED FROM [facility] 02/02 AND PT WAS SENT BACK TO [facility] ON THURSDAY AFTER BEING SOB AND FALL AFTER TRYING TO GET UP. [facility] REPORTS PT CAN BARELY WALK W/WALKER AND THAT SHE RECEIVED A CALL FROM [employer] HELPER AROUND 2AM THEY WERE CONCERNED D/T PT'S SIGNIFICANT PAIN AND AMOUNT OF PAIN MEDICATION PT IS ALREADY ON. [facility] REPORTS THAT SHE MAY WANT TO TAKE PT HOME ON HOSPICE AND WOULD WANT HOSPICE LIFE CARE W/[facility] PT IS ALREADY ACTIVE W/THEM. [facility] REPORTS THAT PT DOES NOT HAVE A GOOD QUALITY OF LIFE, PT GOES TO DIALYSIS AND THEN GOES RIGHT TO BED AND IF HE HAS VISITORS HE CAN ONLY HANDLE 10-20MIN BEFORE NEEDING TO GO BACK TO BED. [facility] WANT'S PT TO BE COMFORTABLE AND PT/[facility] HAVE BEEN CONSIDERING STOPPING HOSPICE. DISPO PENDING HOSPITAL COURSE HOWEVER LIKELY HOME W/HOSPICE.
[2025-02-05 10:40] LABS: Glucose, Whole Blood 119 mg/dL (60-115)
[2025-02-05] MEDS: cefEPime HCl 1 GM in 0.9 % Sodium Chloride 50 ML IV (10:55)
[2025-02-05] MEDS: iohexoL 350 MG/ML 100 ML INFUS..BTL IV (12:10)
[2025-02-05 16:24] LABS: Glucose, Whole Blood 120 mg/dL (60-115)
[2025-02-05] MEDS: fentaNYL citrate/PF 100 MCG/2 ML VIAL 25 MCG IVPUSH ×2 (18:06→22:01)
[2025-02-05] MEDS: Sucralfate 1 GM TABLET PO (20:00)
[2025-02-05] MEDS: amLODIPine Besylate 5 MG TABLET PO (20:01)
[2025-02-05 20:45] LABS: MANUAL DIFF FLAG NO
[2025-02-05 20:48] LABS: Basophils Percent Auto 0.2 % (0-2); Eosinophils Percent Auto 0.1 % (0-4); Imm Gran Abs Auto 0.04 X10*3/uL (0.00-0.03); Imm Gran Pct Auto 0.3 % (0.0-0.4); Lymphocytes Absolute Auto 0.9 X10*3/uL (1.2-4.9); Lymphocytes Percent Auto 7.6 % (20-40); Mean Corpuscular HGB Conc 34.7 g/dl (31.0-36.0); Mean Corpuscular Hemoglobin 31.5 pg (27.0-33.0); Mean Corpuscular Volume 90.6 fL (80.0-98.0); Mean Platelet Volume 9.8 fL (9.4-12.4); Monocytes Absolute Auto 1.1 X10*3/uL (0.1-1.2); Monocytes Percent Auto 8.7 % (2-11); Neutrophils Percent Auto 83.1 % (45-73); Platelet Count 174 X10*3/uL (160-400); Red Blood Count 2.13 X10*6/uL (4.60-5.80); Red Cell Distribution Width 15.6 % (11.0-16.0)
[2025-02-05 21:14] LABS: Hemoglobin 6.7 g/dl (14.0-18.0)
[2025-02-05 21:15] LABS: Hematocrit 19.3 % (42.0-52.0)
[2025-02-05 21:57] LABS: Glucose, Whole Blood 162 mg/dL (60-115)
[2025-02-06] VITALS (32 sets, daily range): BP systolic 126–163; BP diastolic 53–78; PULSE 75–89; RESP 12–25; TEMP 36.5–37.3; O2SAT 88–99; BMI 26.6
[2025-02-06] MEDS: HYDROmorphone HCl 2 MG/ML VIAL IVPUSH ×9 (01:15→23:56)
[2025-02-06] MEDS: fentaNYL citrate/PF 100 MCG/2 ML VIAL 25 MCG IVPUSH ×5 (03:34→22:23)
[2025-02-06 04:43] LABS: VBG Base Excess 8.9 mmol/L; VBG HCO3 31 mmol/L (22-26); VBG pCO2 33 mmHg; VBG pH 7.57 (7.32-7.43); VBG pO2 59 mmHg
[2025-02-06 04:50] LABS: Venous Blood Gas Refer to POC result
[2025-02-06] MEDS: Omeprazole 40 MG CAPSULE.DR PO ×2 (04:57→15:52)
[2025-02-06] MEDS: Levothyroxine Sodium 112 MCG, Levothyroxine Sodium 25 MCG 137 MCG PO (04:57)
--- NOTE | 2025-02-06 05:19 | PC.NURSE ---
Assumed care at 1900. Patient alert and oriented x4, although somewhat forgetful. Pleasant and cooperative, able?to call appropriately and make needs known. SR on tele, HR 70s-80s. Lung sounds diminished with fine crackles. Patient saturating well on 6L NC, O2 goal >88%. Abdomen soft and round, bowel sounds active x4. Patient largely anuric, r/t dialysis, urinal at bedside. Skin warm dry and intact, blanchable?redness to buttocks. Patient occasionally resistive?to turning, repositioned as tolerated. PRN medications used for pain control, see MAR. Critical H&H called from lab, ABA Reaves aware. 1 unit RBC ordered and administered per TAR without issue. Bed locked in lowest position, bed alarm on, call latham within reach.
[2025-02-06 05:31] LABS: Creatinine Clr Calc Pharmacy 10.3; Estimated Glomerular Filt Rate 9
[2025-02-06 05:32] LABS: Alanine Aminotransferase < 6 U/L (0-40); Albumin Level 3.1 g/dL (3.5-5.0); Anion Gap 18 (12-20); Aspartate Amino Transferase 20 U/L (5-37); Bilirubin Total 0.8 mg/dL (0.0-1.0); Blood Urea Nitrogen 28 mg/dL (9-16); Calcium 8.2 mg/dL (8.4-10.2); Carbon Dioxide 23 mmol/L (22-29); Chloride 94 mmol/L (96-108); Glucose Random 143 mg/dL (60-115); Magnesium 1.9 mg/dL (1.6-2.6); Phosphorus 3.5 mg/dL (2.7-4.5); Potassium 4.4 mmol/L (3.3-5.1); Sodium 131 mmol/L (135-145)
[2025-02-06 05:34] LABS: Alkaline Phosphatase 66 U/L (39-117)
[2025-02-06 07:30] LABS: Glucose, Whole Blood 127 mg/dL (60-115)
[2025-02-06] MEDS: 0.9 % Sodium Chloride Flush 3 ML SYRINGE IVFLUSH ×3 (07:41→21:34)
[2025-02-06] MEDS: Atorvastatin Calcium 40 MG TABLET PO (07:45)
[2025-02-06] MEDS: amLODIPine Besylate 5 MG TABLET PO ×2 (07:45→19:40)
[2025-02-06] MEDS: Sucralfate 1 GM TABLET PO ×2 (07:45→19:40)
[2025-02-06] MEDS: Losartan Potassium 50 MG TABLET 100 MG PO (07:45)
[2025-02-06] MEDS: atenoloL 100 MG TABLET PO (07:45)
--- NOTE | 2025-02-06 08:58 | P.PNCC_ITS ---
Subjective Subjective Date of Service: 02/06/25 Interval History: 70-year-old gentleman underlying ESRD on hemodialysis, diabetes mellitus, chronic anemia admitted on 02/04/2025 after a mechanical fall also with significant dyspnea and hypoxia on 02/04/2025. Noticed again to be positive for influenza, also with combined pulmonary edema, and likely bacterial pneumonia superinfection. Initially admitted to telemetry, however secondary to increased supplemental oxygen requirements transferred to the intensive care unit. CT chest with stigmata of likely pneumonia. CT abdomen with no noted infection source. No events overnight. Critical Care Time (minutes): 0 Physical Exam 2 Vital Signs: Vital Signs: Last Vital Signs Temp 98.0 F 02/06/25 07:57 Pulse 89 02/06/25 07:57 Resp 25 H 02/06/25 07:57 BP 145/72 H 02/06/25 07:57 Pulse Ox 88 L 02/06/25 07:57 O2 Del Method Nasal Cannula 02/06/25 07:57 O2 Flow Rate 8 02/06/25 07:57 FiO2 50 02/05/25 17:00 Oxygen Flow Rate 15 02/04/25 03:44 BMI result Body Mass Index 26.6 Const: General: no acute distress, alert and awake Eyes: Sclerae: sclerae normal EOM: EOMs intact bilaterally Neck: Neck: Yes no lymphadenopathy, Yes trachea midline and Yes supple Resp: Effort & Inspection: no respiratory distress and tachypneic A uscultation: crackles (Mild bilateral) Cardio: Rate: regular rate Rhythm: regular rhythm Heart sounds: no gallops, no murmurs and no rubs GI: Palpation (GI): Soft to palpation and Other GI palpation findings present ( Nontender) Auscultation: normal bowel sounds Extrem: General: No clubbing, No cyanosis and Yes edema (Trace bilateral) Objective Data Labs 02/05/25 20:40 02/06/25 04:37 Labs: Laboratory Results - last 24 hr 02/04/25 02/05/25 02/05/25 06:59 10:37 16:21 WBC RBC Hgb Hct MCV MCH MCHC RDW Plt Count MPV Immature Gran % (Auto) Neut % (Auto) Lymph % (Auto) [place] % (Auto) Eos % (Auto) Baso % (Auto) Lymph # (Auto) [place] # (Auto) Eos # (Auto) Baso # (Auto) Abs Immat Gran (auto) Absolute Neuts (auto) Absolute Nucleated RBC Nucleated RBC % (auto) VBG pH VBG pCO2 VBG pO2 VBG HCO3 VBG O2 Saturation VBG Base Excess Sodium Potassium Chloride Carbon Dioxide Anion Gap BUN Creatinine Estim Creat Clear Calc Estimated GFR POC Glucose 119 H 120 H Random Glucose Calcium Phosphorus Magnesium Total Bilirubin AST ALT Alkaline Phosphatase Total Protein Albumin Blood Type A Positive Antibody Screen NEGATIVE Crossmatch See Detail 02/05/25 02/05/25 02/06/25 20:40 21:53 04:37 WBC 12.0 H RBC 2.13 L Hgb 6.7 L* Hct 19.3 L* MCV 90.6 MCH 31.5 MCHC 34.7 RDW 15.6 Plt Count 174 MPV 9.8 Immature Gran % (Auto) 0.3 Neut % (Auto) 83.1 H Lymph % (Auto) 7.6 L [place] % (Auto) 8.7 Eos % (Auto) 0.1 Baso % (Auto) 0.2 Lymph # (Auto) 0.9 L [place] # (Auto) 1.1 Eos # (Auto) 0.0 Baso # (Auto) 0.0 Abs Immat Gran (auto) 0.04 H Absolute Neuts (auto) 10.0 H Absolute Nucleated RBC 0.000 Nucleated RBC % (auto) 0.0 VBG pH 7.57 H VBG pCO2 33 VBG pO2 59 VBG HCO3 31 H VBG O2 Saturation 91.0 VBG Base Excess 8.9 Sodium 131 L Potassium 4.4 Chloride 94 L Carbon Dioxide 23 Anion Gap 18 BUN 28 H Creatinine 5.90 H* Estim Creat Clear Calc 10.3 Estimated GFR 9 POC Glucose 162 H Random Glucose 143 H Calcium 8.2 L Phosphorus 3.5 Magnesium 1.9 Total Bilirubin 0.8 AST 20 ALT < 6 Alkaline Phosphatase 66 Total Protein 6.0 L Albumin 3.1 L Blood Type Antibody Screen Crossmatch 02/06/25 07:26 WBC RBC Hgb Hct MCV MCH MCHC RDW Plt Count MPV Immature Gran % (Auto) Neut % (Auto) Lymph % (Auto) [place] % (Auto) Eos % (Auto) Baso % (Auto) Lymph # (Auto) [place] # (Auto) Eos # (Auto) Baso # (Auto) Abs Immat Gran (auto) Absolute Neuts (auto) Absolute Nucleated RBC Nucleated RBC % (auto) VBG pH VBG pCO2 VBG pO2 VBG HCO3 VBG O2 Saturation VBG Base Excess Sodium Potassium Chloride Carbon Dioxide Anion Gap BUN Creatinine Estim Creat Clear Calc Estimated GFR POC Glucose 127 H Random Glucose Calcium Phosphorus Magnesium Total Bilirubin AST ALT Alkaline Phosphatase Total Protein Albumin Blood Type Antibody Screen Crossmatch Microbiology Microbiology Results: Microbiology 02/04/25 04:43 Blood - Venous Blood Culture - Preliminary No growth after 48 hours. 02/04/25 04:08 Blood - Venous Blood Culture - Preliminary No growth after 48 hours. Progress Note: A&P Assessment and plan (1) Acute hypoxic respiratory failure: Status: Resolved (2) End stage renal disease on dialysis: Status: Acute (3) Pneumonia: Status: Acute (4) Influenza A: Status: Acute (5) Hypothyroidism: Status: Acute Plan Assessment: 70-year-old gentleman with underlying diabetic ESRD on hemodialysis admitted with acute hypoxic respiratory failure likely secondary to influenza with bacterial superinfection Plan: Neuro: No acute issues. Cardiac: No acute issues. Pulmonary: Acute hypoxic respiratory failure likely secondary to influenza with bacterial superinfection. CT chest reviewed. Also, likely component of pulmonary edema. Continue to titrate off supplemental oxygen as tolerated. Renal: ESRD on hemodialysis. Nephrology service care appreciated. Continue to monitor renal indices. Endo: No acute issues. Underlying diabetes mellitus and hypothyroidism. GI: No acute issues. ID: Likely bacterial superinfection of underlying influenza a pneumonia. Continue broad-spectrum antibiotics. Cultures are negative to date. Heme/Onc: No acute issues. Psych: No acute issues. Miscellaneous: No acute issues. Prophylaxis: Heparin Diet: Diabetic Quality Stroke Does the patient have a stroke diagnosis?: No VTE Prior VTE?: No VTE Risk Level:: Medical - moderate - high VTE Device Contraindication: Treatment Not Indicated VTE Drug Contraindication: N/A - Med Ordered
[2025-02-06 09:54] LABS: MANUAL DIFF FLAG NO
[2025-02-06 09:59] LABS: Basophils Percent Auto 0.3 % (0-2); Eosinophils Absolute Auto 0.3 X10*3/uL (0.0-0.4); Eosinophils Percent Auto 2.3 % (0-4); Hemoglobin 8.3 g/dl (14.0-18.0); Imm Gran Abs Auto 0.07 X10*3/uL (0.00-0.03); Imm Gran Pct Auto 0.5 % (0.0-0.4); Lymphocytes Percent Auto 7.1 % (20-40); Mean Corpuscular HGB Conc 34.6 g/dl (31.0-36.0); Mean Corpuscular Hemoglobin 31.3 pg (27.0-33.0); Mean Corpuscular Volume 90.6 fL (80.0-98.0); Mean Platelet Volume 10.5 fL (9.4-12.4); Monocytes Absolute Auto 1.2 X10*3/uL (0.1-1.2); Monocytes Percent Auto 8.9 % (2-11); Neutrophils Absolute Auto 11.1 x10*3/uL (2.0-8.3); Neutrophils Percent Auto 80.9 % (45-73); Platelet Count 248 X10*3/uL (160-400); Red Blood Count 2.65 X10*6/uL (4.60-5.80); Red Cell Distribution Width 15.6 % (11.0-16.0); White Blood Count 13.8 X10*3/uL (4.8-10.8)
[2025-02-06] MEDS: cefEPime HCl 1 GM in 0.9 % Sodium Chloride 50 ML IV (10:47)
[2025-02-06] MEDS: Heparin Sodium,Porcine 5,000 UNIT/ML VIAL 5000 UNIT SUBCUT ×2 (10:48→17:20)
[2025-02-06 11:47] LABS: Glucose, Whole Blood 166 mg/dL (60-115)
[2025-02-06] MEDS: Sevelamer Carbonate Tablet 800 MG TABLET 1600 MG PO ×2 (11:52→17:21)
[2025-02-06] MEDS: HYDROmorphone HCl 2 MG TABLET 4 MG PO ×2 (11:53→15:52)
[2025-02-06] MEDS: Insulin Lispro 100 UNIT/ML 3 ML VIAL SUBCUT (11:55)
[2025-02-06 13:50] LABS: Creatinine Clr Calc Pharmacy 16.3; Estimated Glomerular Filt Rate 16
[2025-02-06 16:29] LABS: Glucose, Whole Blood 107 mg/dL (60-115)
--- NOTE | 2025-02-06 18:27 | PC.NURSE ---
Assumed care at 0700- Pt. remains A&Ox4, calm and cooperate. Medicated for pain per MAR. Pt. SR on tele, HR 70s-80s. O2 weened to 8L NC to maintain O2 >88%- see VS flowsheet. Pt. with decreased appetite. Pt. anuric through shift. Dialysis completed, 4L removed per radiator specialist. Pt. repositioned Q2. Prophylactic heparin SubQ started per MD- administered per DEC. Family at bedside and updated by this RN. Plan of care ongoing.
[2025-02-06 18:29] LABS: Vancomycin Random 14.7 mcg/mL (15-20)
--- NOTE | 2025-02-06 18:36 | HE.PHANOTE ---
Vancomycin addendum: Level 14.7 after dialysis, no dose needed, put in vanco random for next scheduled dialysis day
[2025-02-06 21:10] LABS: Glucose, Whole Blood 155 mg/dL (60-115)
[2025-02-07] VITALS (21 sets, daily range): BP systolic 116–145; BP diastolic 51–67; PULSE 67–79; RESP 11–24; TEMP 36–36.8; O2SAT 90–100; BMI 26.8
[2025-02-07] MEDS: Heparin Sodium,Porcine 5,000 UNIT/ML VIAL 5000 UNIT SUBCUT ×3 (02:20→17:49)
[2025-02-07] MEDS: fentaNYL citrate/PF 100 MCG/2 ML VIAL 25 MCG IVPUSH (02:20)
[2025-02-07] MEDS: HYDROmorphone HCl 2 MG/ML VIAL IVPUSH ×2 (03:26→05:11)
[2025-02-07] MEDS: Levothyroxine Sodium 112 MCG, Levothyroxine Sodium 25 MCG 137 MCG PO (05:08)
[2025-02-07] MEDS: Omeprazole 40 MG CAPSULE.DR PO ×2 (05:08→16:05)
[2025-02-07 05:17] LABS: VBG Base Excess 7.5 mmol/L; VBG HCO3 29 mmol/L (22-26); VBG pCO2 32 mmHg; VBG pH 7.56 (7.32-7.43); VBG pO2 54 mmHg
[2025-02-07 05:54] LABS: MANUAL DIFF FLAG NO
[2025-02-07 05:56] LABS: Basophils Percent Auto 0.5 % (0-2); Eosinophils Absolute Auto 0.7 X10*3/uL (0.0-0.4); Eosinophils Percent Auto 7.5 % (0-4); Hematocrit 23.7 % (42.0-52.0); Imm Gran Abs Auto 0.04 X10*3/uL (0.00-0.03); Imm Gran Pct Auto 0.5 % (0.0-0.4); Lymphocytes Absolute Auto 1.4 X10*3/uL (1.2-4.9); Lymphocytes Percent Auto 15.4 % (20-40); Mean Corpuscular HGB Conc 33.8 g/dl (31.0-36.0); Mean Corpuscular Hemoglobin 31.1 pg (27.0-33.0); Mean Corpuscular Volume 92.2 fL (80.0-98.0); Mean Platelet Volume 10.1 fL (9.4-12.4); Monocytes Absolute Auto 0.8 X10*3/uL (0.1-1.2); Monocytes Percent Auto 9.3 % (2-11); Neutrophils Absolute Auto 5.9 x10*3/uL (2.0-8.3); Neutrophils Percent Auto 66.8 % (45-73); Platelet Count 237 X10*3/uL (160-400); Red Blood Count 2.57 X10*6/uL (4.60-5.80); Red Cell Distribution Width 15.7 % (11.0-16.0); White Blood Count 8.8 X10*3/uL (4.8-10.8)
--- NOTE | 2025-02-07 06:23 | PC.NURSE ---
Assumed care at 1900. Patient remains A&Ox4, pleasant and cooperative. Reports consistently high pain levels, but endorses that PRN medications make it tolerable. SR on tele, HR 70s-80s. Lung sounds?diminished, saturating well on 8L [place]. Abdomen round and soft, no BM this shift. Patient continues to be anuric r/t dialysis. Skin warm dry and intact, with blanchable redness to buttocks. Patient able to make small adjustments to position on his own. Bed locked in lowest position, bed alarm on, call latham within reach.
[2025-02-07 06:46] LABS: Alanine Aminotransferase < 6 U/L (0-40); Albumin Level 3.1 g/dL (3.5-5.0); Anion Gap 18 (12-20); Aspartate Amino Transferase 18 U/L (5-37); Bilirubin Total 0.8 mg/dL (0.0-1.0); Blood Urea Nitrogen 28 mg/dL (9-16); Calcium 8.5 mg/dL (8.4-10.2); Carbon Dioxide 24 mmol/L (22-29); Chloride 95 mmol/L (96-108); Glucose Random 118 mg/dL (60-115); Phosphorus 3.1 mg/dL (2.7-4.5); Potassium 3.7 mmol/L (3.3-5.1); Sodium 133 mmol/L (135-145); Total Protein 6.1 g/dL (6.5-8.0)
[2025-02-07 06:49] LABS: Estimated Glomerular Filt Rate 10
[2025-02-07 07:37] LABS: Glucose, Whole Blood 122 mg/dL (60-115)
[2025-02-07 07:42] LABS: Alkaline Phosphatase 64 U/L (39-117)
[2025-02-07] MEDS: 0.9 % Sodium Chloride Flush 3 ML SYRINGE IVFLUSH ×3 (08:05→20:24)
[2025-02-07 08:08] LABS: Venous Blood Gas Refer to POC result
[2025-02-07] MEDS: ALPRAZolam 0.5 MG TABLET 2 MG PO ×2 (08:11→20:23)
[2025-02-07] MEDS: HYDROmorphone HCl 2 MG TABLET 4 MG PO ×3 (08:11→21:47)
[2025-02-07] MEDS: Sevelamer Carbonate Tablet 800 MG TABLET 1600 MG PO ×3 (08:14→17:49)
[2025-02-07] MEDS: atenoloL 100 MG TABLET PO (08:15)
[2025-02-07] MEDS: amLODIPine Besylate 5 MG TABLET PO ×2 (08:15→20:23)
[2025-02-07] MEDS: Losartan Potassium 50 MG TABLET 100 MG PO (08:15)
[2025-02-07] MEDS: Atorvastatin Calcium 40 MG TABLET PO (08:16)
[2025-02-07] MEDS: Sucralfate 1 GM TABLET PO ×2 (08:16→20:24)
[2025-02-07] MEDS: Cholecalciferol (Vitamin D3) 25 MCG TABLET 125 MCG PO (08:27)
--- NOTE | 2025-02-07 08:51 | PM.CNNEP ---
History of Present Illness Reason for Consult Consult date: 02/07/25 Reason for consult: ESRD Chief Complaint Chief complaint: multifocal pneumonia w/hypoxia History of Present Illness Narrative: 70-year-old male with a medical history of ESRD on maintenance hemodialysis Thursday at outside facility presented to the ED following a fall.His PMH is also significant for diabetes mellitus, HLP, hypothyroidism, mood disorder. This is his fourth admission in the past month for different problems. He tested positive for influenza since 01/07/2025, CT chest today suggestive of some ground glass opacities possibly suggesting pulmonary edema. He underwent HD on 03/07 and 03/08 and fluid was removed. Review of Systems Review of Systems Yes Unobtainable due to mental condition PMFSH Past Medical History Medical History (Updated 02/06/25 @ 09:18 by Alessandro Boss MD) End stage renal disease on dialysis End stage kidney disease Occult blood positive stool Anemia Internal jugular vein thrombosis Abnormality of gait ESRD needing dialysis Secondary hyperparathyroidism (of renal origin) Anemia in chronic kidney disease DONIS (acute kidney injury) Diabetes Kidney failure HTN (hypertension) Social History Social History Household Members: Family Housing: House Are you a primary critical care physician assistant to a significant other at home: No Do you presently have visiting nurse or other home services: No Alcohol intake: never Comment: sitter in place Patient Tobacco Use Status: Never used Tobacco Cigarette Packs Per Day: 0 Cigarettes Per Day: 0.0 Years Smoked: NA Smoked in Last 30 Days: No e-Cigarette/Vaping Use: Never Used Second Hand Smoke Exposure: No Use of substances other than those prescribed or required for medical reasons: No Currently Displaying Signs/Symptoms of Drug Intoxication Withdrawal: No Advance Directives: Yes Advance Directives on File: Yes Advance Directives Date on File: 09/07/23 Do you have a plan to hurt others: No Plan Recently lost weight without trying: Unsure Nutrition Risks: No Nutritional Risk service: No Meds Allergies Allergy/AdvReac Type Severity Reaction Status Date / Time Penicillins [PENICILLINS] Allergy Unknown RASH Verified 02/04/25 03:51 tramadol [From ULTRAM] Allergy Unknown RASH Verified 02/04/25 03:51 trazodone [TRAZODONE] Allergy Unknown PRIAPISM Verified 02/04/25 03:51 risperidone [RISPERIDONE] AdvReac Severe dizzy, EPS Verified 02/04/25 03:51 Active Medications: Current Medications Acetaminophen (Acetaminophen 325 Mg Tablet) 650 mg PO Q6H PRN PRN Reason: Pain, Mild 1-3,fever,headache Last Admin: 02/05/25 17:45 Dose: 650 mg Albuterol Sulfate (Albuterol Sulfate (0.083%) 2.5 Mg/3 Ml Vial.Neb) 2.5 mg INHALE Q6H PRN PRN Reason: Wheezing Albuterol Sulfate (Albuterol Sulfate 90 Mcg 8 Gm Inhaler) 2 puff INHALE Q6H PRN PRN Reason: Shortness Of Breath Or Wheezing Alprazolam (Alprazolam 0.5 Mg Tablet) 0.5 mg PO DAILY PRN PRN Reason: anxiety attack Last Admin: 02/04/25 12:25 Dose: 0.5 mg Alprazolam (Alprazolam 0.5 Mg Tablet) 2 mg PO BID [facility] Last Admin: 02/07/25 08:11 Dose: 2 mg Amlodipine Besylate (Amlodipine Besylate 5 Mg Tablet) 5 mg PO BID [facility]; Protocol Last Admin: 02/07/25 08:15 Dose: 5 mg Amphetamine/Dextroamphetamine (Amphetamine Mixed Salts 20 Mg Tablet) 20 mg PO TID@0800,1400,1800 [facility] Last Admin: 02/07/25 07:35 Dose: Not Given Atenolol (Atenolol 100 Mg Tablet) 100 mg PO DAILY [facility]; Protocol Last Admin: 02/07/25 08:15 Dose: 100 mg Atorvastatin Calcium (Atorvastatin Calcium 40 Mg Tablet) 40 mg PO DAILY [facility] Last Admin: 02/07/25 08:16 Dose: 40 mg Calcium Carbonate (Calcium Carbonate 750 Mg Tab.Chew) 750 mg PO Q4H PRN PRN Reason: Heartburn Dextrose (Dextrose 50 % 25 Gm/50 Ml Syringe) 25 gm IVPUSH Q15M PRN; Protocol PRN Reason: per Hypoglycemia Standing Ord. Glucose (Glucose Gel 15 Gm Gel..Gram.) 15 gm PO Q15M PRN; Protocol PRN Reason: per Hypoglycemia Standing Ord. Heparin Sodium (Porcine) (Heparin Sodium,Porcine 5,000 Unit/Ml Vial) 5,000 unit SUBCUT Q8H [facility] Last Admin: 02/07/25 02:20 Dose: 5,000 unit Hydromorphone HCl (Hydromorphone Hcl 2 Mg Tablet) 4 mg PO Q3H PRN PRN Reason: Severe Pain (Scale Score 7-10) Last Admin: 02/07/25 08:11 Dose: 4 mg Vancomycin HCl 500 mg/ Sodium (Chloride) 110 mls @ 110 mls/hr IV ONCE ONE Stop: 02/04/25 11:59 Cefepime HCl 1 gm/ Sodium (Chloride) 50 mls @ 100 mls/hr IV Q24H [facility] Last Infusion: 02/06/25 11:29 Dose: Infused Insulin Glargine (Insulin Glargine,Hum.Rec.Anlog 100 Unit/Ml 10 Ml Vial) 7 unit SUBCUT BEDTIME [facility] Last Admin: 02/06/25 21:07 Dose: Not Given Insulin Human Lispro (Insulin Lispro 100 Unit/Ml 3 Ml Vial) 0 unit SUBCUT QIDACHS [facility]; Protocol Last Admin: 02/07/25 07:38 Dose: Not Given Levothyroxine Sodium 112 mcg/ (Levothyroxine Sodium 25 mcg) 137 mcg PO DAILY@0600 [facility] Last Admin: 02/07/25 05:08 Dose: 137 mcg Losartan Potassium (Losartan Potassium 50 Mg Tablet) 100 mg PO DAILY [facility]; Protocol Last Admin: 02/07/25 08:15 Dose: 100 mg Magnesium Hydroxide (Milk Of Magnesia 30 Ml Oral.Susp) 30 ml PO DAILY PRN PRN Reason: Constipation Melatonin (Melatonin 3 Mg Tablet) 6 mg PO BEDTIME PRN PRN Reason: Insomnia Omeprazole (Omeprazole 40 Mg Capsule.Dr) 40 mg PO BID@0630,1630 [facility] Last Admin: 02/07/25 05:08 Dose: 40 mg Pharmacy Consult (Consult Rx Vancomycin Dosing) 1 each MISCELLANE DAILY PRN PRN Reason: Consult order Quetiapine Fumarate (Quetiapine Fumarate 25 Mg Tablet) 25 mg PO BID PRN PRN Reason: Agitation Sevelamer Carbonate (Sevelamer Carbonate Tablet 800 Mg Tablet) 800 mg PO DAILY PRN PRN Reason: SNACKS Sevelamer Carbonate (Sevelamer Carbonate Tablet 800 Mg Tablet) 1,600 mg PO TIDWM [facility] Last Admin: 02/07/25 08:14 Dose: 1,600 mg Sodium Chloride (0.9 % Sodium Chloride Flush 3 Ml Syringe) 3 ml IVFLUSH QSHIFT [facility] Last Admin: 02/07/25 08:05 Dose: 3 ml Sodium Zirconium Cyclosilicate (Sodium Zirconium Cyclosilicate 10 Gm Powd.Pack) 10 gm PO SUTUTHSA@0900 [facility] Last Admin: 02/05/25 08:44 Dose: Not Given Sucralfate (Sucralfate 1 Gm Tablet) 1 gm PO BID [facility] Last Admin: 02/07/25 08:16 Dose: 1 gm Vitamin D (Cholecalciferol (Vitamin D3) 25 Mcg Tablet) 125 mcg PO SuTuThSa@0900 [facility] Last Admin: 02/07/25 08:27 Dose: 125 mcg Home Medications ?Medication ?Instructions ?Recorded ?Confirmed ?Last Taken ?Type atenolol 100 mg tablet 1 tab PO DAILY 07/11/21 02/04/25 02/02/25 History blood sugar diagnostic (FreeStyle 07/11/21 10/30/24 10/30/24 09:00 History Lite Strips) dextroamphetamine-amphetamine 20 1 tab PO TID@0800,1400,1800 07/11/21 02/04/25 02/02/25 History mg tablet levothyroxine 137 mcg tablet 1 tab PO DAILY@0600 07/11/21 02/04/25 02/02/25 History pen needle, diabetic 31 gauge x 07/11/21 10/30/24 10/30/24 09:00 History 16 (BD Ultra-Fine Short Pen Needle) amlodipine 5 mg tablet 5 mg PO BID 09/03/23 02/04/25 02/02/25 History atorvastatin 40 mg tablet 40 mg PO DAILY 02/22/24 02/04/25 02/02/25 History sodium zirconium cyclosilicate 10 10 g PO SUTUTHSA@0900 06/19/24 02/04/25 02/02/25 History gram oral powder packet (Lokelma) alprazolam 0.5 mg tablet 0.5 mg PO DAILY PRN anxiety attack 10/30/24 02/04/25 02/02/25 History alprazolam 2 mg tablet 2 mg PO BID 10/30/24 02/04/25 02/02/25 History insulin lispro 100 unit/mL See Protocol subcut TIDAC PRN 10/30/24 02/04/25 10/30/24 09:00 History subcutaneous pen (Humalog KwikPen Blood Glucose (U-100) Insulin) vitamin D3 25 mcg (1,000 unit)-vit 1 tab PO SUTUTHSA@0900 11/02/24 02/04/25 02/02/25 History K2 90 mcg disintegrating tablet losartan 100 mg tablet 100 mg PO DAILY 01/09/25 02/04/25 02/02/25 History sevelamer carbonate 800 mg tablet 1,600 mg PO TIDWM 01/09/25 02/04/25 02/02/25 History albuterol sulfate 2.5 mg/3 mL 2.5 mg inhalation Q6H PRN Wheezing 01/18/25 02/04/25 Unknown History (0.083 %) solution for nebulization albuterol sulfate 90 mcg/actuation 2 puff inhalation Q6H PRN 01/18/25 02/04/25 Unknown History aerosol inhaler (Ventolin HFA) Shortness Of Breath Or Wheezing calcium carbonate (Tums) 200 mg PO TID PRN UPSET STOMACH 01/18/25 02/04/25 Unknown History cholecalciferol (vitamin D3) 125 125 mcg PO SUTUTHSA@0900 01/18/25 02/04/25 02/02/25 History mcg (5,000 unit) tablet (Vitamin D3) insulin glargine 100 unit/mL 10 unit subcut BEDTIME 01/18/25 02/04/25 Unknown History subcutaneous solution (Lantus U-100 Insulin) melatonin 5 mg tablet 5 mg PO BEDTIME PRN Insomnia 01/18/25 02/04/25 Unknown History quetiapine 25 mg tablet (Seroquel) 25 mg PO BID PRN Agitation 01/18/25 02/04/25 Unknown History sevelamer carbonate 800 mg tablet 800 mg PO DAILY PRN SNACKS 01/18/25 02/04/25 02/02/25 History vitamin B complex and vitamin C 1 cap PO SUTUTHSA@0900 01/18/25 02/04/25 Unknown History no.20-folic acid 1 mg capsule omeprazole 40 mg capsule,delayed 40 mg PO BID@0630,1630 02/04/25 02/04/25 Unknown History release Physical Exam Vital Signs: Last Vital Signs Temp 98.3 F 02/07/25 07:57 Pulse 76 02/07/25 07:57 Resp 15 02/07/25 07:57 BP 123/60 02/07/25 07:57 Pulse Ox 98 02/07/25 07:57 O2 Del Method Nasal Cannula 02/07/25 07:57 O2 Flow Rate 8 02/07/25 07:57 FiO2 50 02/05/25 17:00 Oxygen Flow Rate 15 02/04/25 03:44 BMI result Body Mass Index 26.8 Const General: ill appearing Neck Neck: Yes supple Resp Auscultation: clear to auscultation bilaterally Cardio Palpation: no palpable S3 Heart sounds: no rubs GI Palpation (GI): Soft to palpation Auscultation: normal bowel sounds Neuro Motor exam (neuro): no asterixis Results Lab Results 02/07/25 05:12 02/07/25 05:12 Lab results: Chemistry 02/04/25 02/05/25 02/06/25 20:52 04:53 04:37 Sodium 132 L 132 L 131 L Potassium 4.6 4.7 4.4 Carbon Dioxide 21 L 24 23 BUN 19 H 23 H 28 H Creatinine 6.11 H* 6.96 H* 5.90 H* Calcium 8.1 L 8.0 L 8.2 L Phosphorus 3.5 02/06/25 02/07/25 13:31 05:12 Sodium 133 L Potassium 3.7 Carbon Dioxide 24 BUN 28 H Creatinine 3.75 H 5.53 H* Calcium 8.5 Phosphorus 3.1 Hematology 02/04/25 02/05/25 02/05/25 20:52 04:53 20:40 WBC 13.6 H 15.7 H 12.0 H Hgb 8.2 L 7.5 L 6.7 L* Plt Count 175 204 174 02/06/25 02/07/25 08:28 05:12 WBC 13.8 H 8.8 Hgb 8.3 L D 8.0 L Plt Count 248 D 237 Assessment and Plan (1) End stage renal disease on dialysis: Status: Acute Plan ESRD with fluid overload s/p HD HD again tomorrow and on MWF schedule Fluid removal as tolerated Anemia Check Iron/TIBC/Ferriting Resume Epogen Mild hyponatremia Restrict hypotonic fluidsFree water Procedures Date of Service Date of Service: 02/07/25
--- NOTE | 2025-02-07 09:46 | P.PNCC_ITS ---
Subjective Subjective Date of Service: 02/07/25 Interval History: 70-year-old gentleman underlying ESRD on hemodialysis, diabetes mellitus, chronic anemia admitted on 02/04/2025 after a mechanical fall also with significant dyspnea and hypoxia on 02/04/2025. Noticed again to be positive for influenza, also with combined pulmonary edema, and likely bacterial pneumonia superinfection. Initially admitted to telemetry, however secondary to increased supplemental oxygen requirements transferred to the intensive care unit. CT chest with stigmata of likely pneumonia. CT abdomen with no noted infection source. No events overnight. Oxygen requirements are improving. Critical Care Time (minutes): 0 Physical Exam 2 Vital Signs: Vital Signs: Last Vital Signs Temp 98.3 F 02/07/25 07:57 Pulse 73 02/07/25 09:00 Resp 14 02/07/25 09:00 BP 136/63 02/07/25 09:00 Pulse Ox 99 02/07/25 09:00 O2 Del Method Nasal Cannula 02/07/25 09:00 O2 Flow Rate 8 02/07/25 09:00 FiO2 50 02/05/25 17:00 Oxygen Flow Rate 15 02/04/25 03:44 BMI result Body Mass Index 26.8 Const: General: no acute distress, alert and awake Eyes: Sclerae: sclerae normal EOM: EOMs intact bilaterally Neck: Neck: Yes no lymphadenopathy, Yes trachea midline and Yes supple Resp: Effort & Inspection: normal respiratory effort and no respiratory distress Auscultation: clear to auscultation bilaterally Cardio: Rate: regular rate Rhythm: regular rhythm Heart sounds: no gallops, no murmurs and no rubs GI: Palpation (GI): Soft to palpation and Other GI palpation findings present ( Nontender) Auscultation: normal bowel sounds Extrem: General: Yes no pedal edema, No clubbing and No cyanosis Objective Data Labs 02/07/25 05:12 02/07/25 05:12 Labs: Laboratory Results - last 24 hr 02/06/25 02/06/25 02/06/25 08:28 11:44 13:31 WBC 13.8 H RBC 2.65 L D Hgb 8.3 L D Hct 24.0 L D MCV 90.6 MCH 31.3 MCHC 34.6 RDW 15.6 Plt Count 248 D MPV 10.5 Immature Gran % (Auto) 0.5 H Neut % (Auto) 80.9 H Lymph % (Auto) 7.1 L [place] % (Auto) 8.9 Eos % (Auto) 2.3 Baso % (Auto) 0.3 Lymph # (Auto) 1.0 L [place] # (Auto) 1.2 Eos # (Auto) 0.3 Baso # (Auto) 0.0 Abs Immat Gran (auto) 0.07 H Absolute Neuts (auto) 11.1 H Absolute Nucleated RBC 0.000 Nucleated RBC % (auto) 0.0 VBG pH VBG pCO2 VBG pO2 VBG HCO3 VBG O2 Saturation VBG Base Excess Sodium Potassium Chloride Carbon Dioxide Anion Gap BUN Creatinine 3.75 H Estim Creat Clear Calc 16.3 Estimated GFR 16 POC Glucose 166 H Random Glucose Calcium Phosphorus Magnesium Total Bilirubin AST ALT Alkaline Phosphatase Total Protein Albumin Random Vancomycin 02/06/25 02/06/25 02/06/25 15:54 18:00 21:06 WBC RBC Hgb Hct MCV MCH MCHC RDW Plt Count MPV Immature Gran % (Auto) Neut % (Auto) Lymph % (Auto) [place] % (Auto) Eos % (Auto) Baso % (Auto) Lymph # (Auto) [place] # (Auto) Eos # (Auto) Baso # (Auto) Abs Immat Gran (auto) Absolute Neuts (auto) Absolute Nucleated RBC Nucleated RBC % (auto) VBG pH VBG pCO2 VBG pO2 VBG HCO3 VBG O2 Saturation VBG Base Excess Sodium Potassium Chloride Carbon Dioxide Anion Gap BUN Creatinine Estim Creat Clear Calc Estimated GFR POC Glucose 107 155 H Random Glucose Calcium Phosphorus Magnesium Total Bilirubin AST ALT Alkaline Phosphatase Total Protein Albumin Random Vancomycin 14.7 L 02/07/25 02/07/25 02/07/25 05:12 05:13 07:33 WBC 8.8 RBC 2.57 L Hgb 8.0 L Hct 23.7 L MCV 92.2 MCH 31.1 MCHC 33.8 RDW 15.7 Plt Count 237 MPV 10.1 Immature Gran % (Auto) 0.5 H Neut % (Auto) 66.8 Lymph % (Auto) 15.4 L [place] % (Auto) 9.3 Eos % (Auto) 7.5 H Baso % (Auto) 0.5 Lymph # (Auto) 1.4 [place] # (Auto) 0.8 Eos # (Auto) 0.7 H Baso # (Auto) 0.0 Abs Immat Gran (auto) 0.04 H Absolute Neuts (auto) 5.9 Absolute Nucleated RBC 0.000 Nucleated RBC % (auto) 0.0 VBG pH 7.56 H VBG pCO2 32 VBG pO2 54 VBG HCO3 29 H VBG O2 Saturation 90.0 VBG Base Excess 7.5 Sodium 133 L Potassium 3.7 Chloride 95 L Carbon Dioxide 24 Anion Gap 18 BUN 28 H Creatinine 5.53 H* Estim Creat Clear Calc 11.0 Estimated GFR 10 POC Glucose 122 H Random Glucose 118 H Calcium 8.5 Phosphorus 3.1 Magnesium 2.0 Total Bilirubin 0.8 AST 18 ALT < 6 Alkaline Phosphatase 64 Total Protein 6.1 L Albumin 3.1 L Random Vancomycin Microbiology Microbiology Results: Microbiology 02/04/25 04:43 Blood - Venous Blood Culture - Preliminary No growth after 48 hours. 02/04/25 04:08 Blood - Venous Blood Culture - Preliminary No growth after 48 hours. Progress Note: A&P Assessment and plan (1) End stage renal disease on dialysis: Status: Acute (2) Hypothyroidism: Status: Acute (3) Influenza A: Status: Acute (4) Pneumonia: Status: Acute (5) Acute hypoxic respiratory failure: Status: Resolved Plan Assessment: 70-year-old gentleman with underlying diabetic ESRD on hemodialysis admitted with acute hypoxic respiratory failure likely secondary to influenza with bacterial superinfection Plan: Neuro: No acute issues. Cardiac: No acute issues. Pulmonary: Acute hypoxic respiratory failure likely secondary to influenza with bacterial superinfection. CT chest reviewed. Also, likely component of pulmonary edema. Continue to titrate off supplemental oxygen as tolerated. Renal: ESRD on hemodialysis. Nephrology service care appreciated. Continue to monitor renal indices. Endo: No acute issues. Underlying diabetes mellitus and hypothyroidism. GI: No acute issues. ID: Likely bacterial superinfection of underlying influenza a pneumonia. Continue broad-spectrum antibiotics. Cultures are negative to date. Heme/Onc: No acute issues. Psych: No acute issues. Miscellaneous: No acute issues. Prophylaxis: Heparin Diet: Diabetic Quality Stroke Does the patient have a stroke diagnosis?: No VTE Prior VTE?: No VTE Risk Level:: Medical - moderate - high VTE Device Contraindication: Treatment Not Indicated VTE Drug Contraindication: N/A - Med Ordered
[2025-02-07] MEDS: Morphine Sulfate 2 MG/ML CARTRIDGE IVPUSH ×3 (10:59→20:24)
[2025-02-07] MEDS: cefEPime HCl 1 GM in 0.9 % Sodium Chloride 50 ML IV (11:00)
[2025-02-07] MEDS: Sodium Zirconium Cyclosilicate 10 GM POWD.PACK PO (11:00)
[2025-02-07 11:39] LABS: Glucose, Whole Blood 182 mg/dL (60-115)
[2025-02-07] MEDS: Insulin Lispro 100 UNIT/ML 3 ML VIAL SUBCUT ×2 (11:41→20:36)
--- NOTE | 2025-02-07 11:43 | PM.EVENT ---
Event Note Date of Service: 02/07/25 Event Note: ICU transfer. Discussed with ICU attending 70 year old man admitted with hypoxic respiratory failure secondary to bilateral pna and sepsis. 02/04 patient tx to ICU for Hypoxia and placed on High flow Hypoxic respiratory failure secondary to bilateral pna Treated with cefepime and vancomycin pos influenza for a month seems like bacterial superinfection oleksandr on 6 liters mask ESRD on dialysis MWF lokelma, renvela Epo with dialysis HTN amlodipine, losartan and atenolol DM2 SS, lantus hypothyroidism levothyroxine GERD PPI Anxiety continue xanax DVT heparin Time Spent With Patient Time: Total time managing care of this patient today ____ minutes.
[2025-02-07] MEDS: Milk of Magnesia 30 ML ORAL.SUSP PO (16:05)
[2025-02-07 16:55] LABS: Glucose, Whole Blood 129 mg/dL (60-115)
[2025-02-07] MEDS: Insulin Glargine,Hum.rec.anlog 100 UNIT/ML 10 ML VIAL 7 UNIT SUBCUT (20:24)
[2025-02-07 20:38] LABS: Glucose, Whole Blood 168 mg/dL (60-115)
[2025-02-08] VITALS (11 sets, daily range): BP systolic 124–161; BP diastolic 58–74; PULSE 69–83; RESP 14–20; TEMP 36.1–37.4; O2SAT 90–100; BMI 27.9
[2025-02-08] MEDS: Morphine Sulfate 2 MG/ML CARTRIDGE IVPUSH ×3 (00:33→17:29)
[2025-02-08] MEDS: Heparin Sodium,Porcine 5,000 UNIT/ML VIAL 5000 UNIT SUBCUT ×3 (00:33→17:30)
[2025-02-08] MEDS: Levothyroxine Sodium 112 MCG, Levothyroxine Sodium 25 MCG 137 MCG PO (05:47)
[2025-02-08] MEDS: HYDROmorphone HCl 2 MG TABLET 4 MG PO ×5 (05:48→21:27)
[2025-02-08] MEDS: Omeprazole 40 MG CAPSULE.DR PO ×2 (05:48→15:44)
[2025-02-08 07:42] LABS: Glucose, Whole Blood 89 mg/dL (60-115)
--- NOTE | 2025-02-08 08:03 | HO.PM.IMPN ---
Subjective Subjective Date of Service: 02/08/25 Interval History: Seen and examined this morning Interval history: Reports he is feeling well. No shortness a breath, cough, chest pain. Has been weaned from supplemental O2. He is scheduled for HD this morning. He does feel weak Review of Systems Review of Systems: Yes all other systems are reviewed and are negative Physical Exam Vital Signs: Vital Signs: Last Vital Signs Temp 97.7 F 02/08/25 07:36 Pulse 70 02/08/25 07:36 Resp 16 02/08/25 07:36 BP 135/61 02/08/25 07:36 Pulse Ox 100 02/08/25 07:36 O2 Del Method Nasal Cannula 02/08/25 07:36 O2 Flow Rate 3 02/08/25 07:36 FiO2 50 02/05/25 17:00 Oxygen Flow Rate 15 02/04/25 03:44 BMI result Body Mass Index 27.9 Constitutional - Awake and Alert, No apparent distress Eyes - PERRLA, EOMI Cardiovascular - S1S2, RRR, No edema Respiratory - Normal lung expansion, Normal respiratory effort, No respiratory distress, CTA bilaterally Gastrointestinal - NT / ND; +BS; No rebound or guarding Extremities - no calf tenderness bilaterally, no swelling Skin - Warm/Dry Neurological - Alert & oriented x3 Psychological - Appropriate affect Objective Data Active Medications Acetaminophen (Acetaminophen 325 Mg Tablet) 650 mg PO Q6H PRN PRN Reason: Pain, Mild 1-3,fever,headache Last Admin: 02/05/25 17:45 Dose: 650 mg Documented By: CAMPBELL Albuterol Sulfate (Albuterol Sulfate (0.083%) 2.5 Mg/3 Ml Vial.Neb) 2.5 mg INHALE Q6H PRN PRN Reason: Wheezing Albuterol Sulfate (Albuterol Sulfate 90 Mcg 8 Gm Inhaler) 2 puff INHALE Q6H PRN PRN Reason: Shortness Of Breath Or Wheezing Alprazolam (Alprazolam 0.5 Mg Tablet) 0.5 mg PO DAILY PRN PRN Reason: anxiety attack Last Admin: 02/04/25 12:25 Dose: 0.5 mg Documented By: NGOC Alprazolam (Alprazolam 0.5 Mg Tablet) 2 mg PO BID FRANCINE Last Admin: 02/07/25 20:23 Dose: 2 mg Documented By: JULIUS Amlodipine Besylate (Amlodipine Besylate 5 Mg Tablet) 5 mg PO BID [facility]; Protocol Last Admin: 02/07/25 20:23 Dose: 5 mg Documented By: JULIUS Amphetamine/Dextroamphetamine (Amphetamine Mixed Salts 20 Mg Tablet) 20 mg PO TID@0800,1400,1800 [facility] Last Admin: 02/07/25 17:51 Dose: Not Given Documented By: ALEX Non-Admin Reason: Patient Refused Atenolol (Atenolol 100 Mg Tablet) 100 mg PO DAILY [facility]; Protocol Last Admin: 02/07/25 08:15 Dose: 100 mg Documented By: DOROTA Atorvastatin Calcium (Atorvastatin Calcium 40 Mg Tablet) 40 mg PO DAILY [facility] Last Admin: 02/07/25 08:16 Dose: 40 mg Documented By: DOROTA Calcium Carbonate (Calcium Carbonate 750 Mg Tab.Chew) 750 mg PO Q4H PRN PRN Reason: Heartburn Dextrose (Dextrose 50 % 25 Gm/50 Ml Syringe) 25 gm IVPUSH Q15M PRN; Protocol PRN Reason: per Hypoglycemia Standing Ord. Epoetin Lebron-epbx 3,000 unit/ (Epoetin Lebron-epbx 2,000 unit) 5,000 unit SUBCUT MoWeFr@1645 [facility] Glucose (Glucose Gel 15 Gm Gel..Gram.) 15 gm PO Q15M PRN; Protocol PRN Reason: per Hypoglycemia Standing Ord. Heparin Sodium (Porcine) (Heparin Sodium,Porcine 5,000 Unit/Ml Vial) 5,000 unit SUBCUT Q8H [facility] Last Admin: 02/08/25 00:33 Dose: 5,000 unit Documented By: JULIUS Hydromorphone HCl (Hydromorphone Hcl 2 Mg Tablet) 4 mg PO Q3H PRN PRN Reason: Severe Pain (Scale Score 7-10) Last Admin: 02/08/25 05:48 Dose: 4 mg Documented By: JULIUS Vancomycin HCl 500 mg/ Sodium (Chloride) 110 mls @ 110 mls/hr IV ONCE ONE Stop: 02/04/25 11:59 Cefepime HCl 1 gm/ Sodium (Chloride) 50 mls @ 100 mls/hr IV Q24H [facility] Last Infusion: 02/07/25 11:30 Dose: Infused Documented By: DOROTA Insulin Glargine (Insulin Glargine,Hum.Rec.Anlog 100 Unit/Ml 10 Ml Vial) 7 unit SUBCUT BEDTIME [facility] Last Admin: 02/07/25 20:24 Dose: 7 unit Documented By: JULIUS Insulin Human Lispro (Insulin Lispro 100 Unit/Ml 3 Ml Vial) 0 unit SUBCUT QIDACHS [facility]; Protocol Last Admin: 02/07/25 20:36 Dose: 2 unit Documented By: JULIUS Levothyroxine Sodium 112 mcg/ (Levothyroxine Sodium 25 mcg) 137 mcg PO DAILY@0600 [facility] Last Admin: 02/08/25 05:47 Dose: 137 mcg Documented By: JULIUS Losartan Potassium (Losartan Potassium 50 Mg Tablet) 100 mg PO DAILY [facility]; Protocol Last Admin: 02/07/25 08:15 Dose: 100 mg Documented By: DOROTA Magnesium Hydroxide (Milk Of Magnesia 30 Ml Oral.Susp) 30 ml PO DAILY PRN PRN Reason: Constipation Last Admin: 02/07/25 16:05 Dose: 30 ml Documented By: DOROTA Melatonin (Melatonin 3 Mg Tablet) 6 mg PO BEDTIME PRN PRN Reason: Insomnia Morphine Sulfate (Morphine Sulfate 2 Mg/Ml Cartridge) 2 mg IVPUSH Q4H PRN; Protocol PRN Reason: Pain, Severe (Pain Scale 7-10) Last Admin: 02/08/25 00:33 Dose: 2 mg Documented By: JULIUS Omeprazole (Omeprazole 40 Mg Capsule.Dr) 40 mg PO BID@0630,1630 [facility] Last Admin: 02/08/25 05:48 Dose: 40 mg Documented By: JULIUS Pharmacy Consult (Consult Rx Vancomycin Dosing) 1 each MISCELLANE DAILY PRN PRN Reason: Consult order Quetiapine Fumarate (Quetiapine Fumarate 25 Mg Tablet) 25 mg PO BID PRN PRN Reason: Agitation Sevelamer Carbonate (Sevelamer Carbonate Tablet 800 Mg Tablet) 800 mg PO DAILY PRN PRN Reason: SNACKS Sevelamer Carbonate (Sevelamer Carbonate Tablet 800 Mg Tablet) 1,600 mg PO TIDWM [facility] Last Admin: 02/07/25 17:49 Dose: 1,600 mg Documented By: VERITOCIYOHANNES Sodium Chloride (0.9 % Sodium Chloride Flush 3 Ml Syringe) [facility] Last Admin: 02/07/25 20:24 Dose: 3 ml Documented By: JULIUS Sodium Zirconium Cyclosilicate (Sodium Zirconium Cyclosilicate 10 Gm Powd.Pack) 10 gm PO SUTUTHSA@0900 [facility] Last Admin: 02/07/25 11:00 Dose: 10 gm Documented By: DOROTA Sucralfate (Sucralfate 1 Gm Tablet) 1 gm PO BID [facility] Last Admin: 02/07/25 20:24 Dose: 1 gm Documented By: JULIUS Vitamin D (Cholecalciferol (Vitamin D3) 25 Mcg Tablet) 125 mcg PO SuTuThSa@0900 [facility] Last Admin: 02/07/25 08:27 Dose: 125 mcg Documented By: DOROTA Labs 02/08/25 12:48 02/08/25 12:48 Labs: Laboratory Results - last 24 hr 02/07/25 02/07/25 02/07/25 11:35 16:50 20:30 POC Glucose 182 H 129 H 168 H 02/08/25 07:35 POC Glucose 89 Assessment and Plan (1) ESRD needing dialysis: Status: Inactive Plan 70 year old man admitted with hypoxic respiratory failure secondary to bilateral pna and sepsis. 02/04 patient tx to ICU for Hypoxia and placed on High flow Hypoxic respiratory failure secondary to bilateral pna IV vancomycin and cefepime (initiated 02/04). Change to renally dosed cefuroxime as well as doxycycline on 02/09 pos influenza for a month seems like bacterial superinfection Weaned from supplemental O2 ESRD on dialysis MWF tara, renvela Epo with dialysis HTN amlodipine, losartan and atenolol DM2 SS, lantus hypothyroidism levothyroxine GERD PPI Anxiety continue xanax DVT heparin Requires ongoing inpatient stay due to placement Quality Stroke Does the patient have a stroke diagnosis?: No VTE Prior VTE?: No VTE Risk Level:: Medical - moderate - high VTE Device Contraindication: Treatment Not Indicated VTE Drug Contraindication: N/A - Med Ordered
[2025-02-08] MEDS: Atorvastatin Calcium 40 MG TABLET PO (08:23)
[2025-02-08] MEDS: ALPRAZolam 0.5 MG TABLET 2 MG PO ×2 (08:23→19:41)
[2025-02-08] MEDS: atenoloL 100 MG TABLET PO (08:23)
[2025-02-08] MEDS: Sucralfate 1 GM TABLET PO ×2 (08:23→19:41)
[2025-02-08] MEDS: Losartan Potassium 50 MG TABLET 100 MG PO (08:23)
[2025-02-08] MEDS: amLODIPine Besylate 5 MG TABLET PO ×2 (08:23→19:41)
[2025-02-08] MEDS: Sevelamer Carbonate Tablet 800 MG TABLET 1600 MG PO ×3 (08:23→17:29)
[2025-02-08] MEDS: 0.9 % Sodium Chloride Flush 3 ML SYRINGE IVFLUSH ×2 (08:32→17:30)
[2025-02-08 11:32] LABS: Glucose, Whole Blood 109 mg/dL (60-115)
[2025-02-08] MEDS: cefEPime HCl 1 GM in 0.9 % Sodium Chloride 50 ML IV (12:01)
--- NOTE | 2025-02-08 13:06 | P.PNNP_ITS ---
Subjective Subjective Date of Service: 02/08/25 Interval history: Events noted. All recent data reviewed Physical Exam 2 Vital Signs: Vital Signs: Last Vital Signs Temp 97.9 F 02/08/25 10:50 Pulse 73 02/08/25 11:15 Resp 18 02/08/25 10:50 BP 131/69 02/08/25 11:15 Pulse Ox 95 02/08/25 11:15 O2 Del Method Room Air 02/08/25 10:50 O2 Flow Rate 3 02/08/25 07:36 FiO2 50 02/05/25 17:00 Oxygen Flow Rate 15 02/04/25 03:44 BMI result Body Mass Index 27.9 Const: General: no acute distress Eyes: EOM: EOMs intact bilaterally Neck: Neck: Yes supple Resp: Auscultation: diminished lung sounds Cardio: Rate: regular rate GI: Palpation (GI): Soft to palpation Neuro: General: moves all extremities Objective Data Labs 02/07/25 05:12 02/07/25 05:12 Labs: Laboratory Results - last 24 hr 02/07/25 02/07/25 02/08/25 16:50 20:30 07:35 POC Glucose 129 H 168 H 89 02/08/25 11:28 POC Glucose 109 Microbiology Microbiology Results: Microbiology 02/04/25 04:43 Blood - Venous Blood Culture - Preliminary No growth after 48 hours. 02/04/25 04:08 Blood - Venous Blood Culture - Preliminary No growth after 48 hours. Procedures Date of Service Date of Service: 02/08/25 Assessment & Plan Assessment and plan (1) End stage renal disease on dialysis: Status: Acute Plan Shall keep him on MWF HD schedule Shall ultrafiltrate him again tomorrow Needs to bring his dry weight down Low-sodium, low phosphorus diet with a fluid restriction Phosphorus binders 3 times a day with meals Procrit [id number] U thrice a week C/W rest of current management Progress Note: Quality Stroke Does the patient have a stroke diagnosis?: No
[2025-02-08 13:07] LABS: MANUAL DIFF FLAG NO
[2025-02-08 13:10] LABS: Basophils Absolute Auto 0.1 X10*3/uL (0.0-0.2); Basophils Percent Auto 0.6 % (0-2); Eosinophils Absolute Auto 0.9 X10*3/uL (0.0-0.4); Eosinophils Percent Auto 11.4 % (0-4); Hematocrit 24.1 % (42.0-52.0); Hemoglobin 8.3 g/dl (14.0-18.0); Imm Gran Abs Auto 0.05 X10*3/uL (0.00-0.03); Imm Gran Pct Auto 0.6 % (0.0-0.4); Lymphocytes Absolute Auto 1.3 X10*3/uL (1.2-4.9); Lymphocytes Percent Auto 16.2 % (20-40); Mean Corpuscular HGB Conc 34.4 g/dl (31.0-36.0); Mean Corpuscular Hemoglobin 30.9 pg (27.0-33.0); Mean Corpuscular Volume 89.6 fL (80.0-98.0); Monocytes Absolute Auto 0.8 X10*3/uL (0.1-1.2); Monocytes Percent Auto 10.3 % (2-11); Neutrophils Absolute Auto 4.7 x10*3/uL (2.0-8.3); Neutrophils Percent Auto 60.9 % (45-73); Platelet Count 306 X10*3/uL (160-400); Red Blood Count 2.69 X10*6/uL (4.60-5.80); Red Cell Distribution Width 15.3 % (11.0-16.0); White Blood Count 7.7 X10*3/uL (4.8-10.8)
[2025-02-08 13:35] LABS: Anion Gap 17 (12-20); Blood Urea Nitrogen 44 mg/dL (9-16); Calcium 8.3 mg/dL (8.4-10.2); Carbon Dioxide 24 mmol/L (22-29); Chloride 93 mmol/L (96-108); Creatinine Clr Calc Pharmacy 8.3; Estimated Glomerular Filt Rate 7; Glucose Random 136 mg/dL (60-115); Magnesium 2.2 mg/dL (1.6-2.6); Phosphorus 1.7 mg/dL (2.7-4.5); Potassium 3.7 mmol/L (3.3-5.1); Sodium 130 mmol/L (135-145)
--- NOTE | 2025-02-08 13:40 | MHC.CM.PN ---
Addendum entered by Prema Grissom RN 02/08/25 16:09: PER HOSPITALIST PT'S REPORTS SHE CANNOT PROVIDE CONSTANT SURGERY D/T RECENT SURGERY AND WANTS STR, REF PLACED TO [facility] (WHERE HE DC'D EARLIER IN MONTH) AND [facility] D/T INSURANCE. Original Note: EMR REVIEWED, PT W/MULTIFOCAL PNA AND STEP DOWN FROM ICU, P.T. RECOMMENDING HOME W/SERVICES, ANTIC DC IN 1-2 DAYS, CM WILL CONT TO FOLLOW DC NEEDS.
[2025-02-08 17:26] LABS: Glucose, Whole Blood 158 mg/dL (60-115)
[2025-02-08] MEDS: Insulin Lispro 100 UNIT/ML 3 ML VIAL SUBCUT (17:30)
[2025-02-08] MEDS: EPOETIN ALFA EPBX 5000 UNIT SUBCUT (18:18)
[2025-02-08 18:47] LABS: Creatinine Clr Calc Pharmacy 13.6; Estimated Glomerular Filt Rate 12
[2025-02-08 20:27] LABS: Glucose, Whole Blood 137 mg/dL (60-115)
[2025-02-08] MEDS: Insulin Glargine,Hum.rec.anlog 100 UNIT/ML 10 ML VIAL 7 UNIT SUBCUT (20:40)
[2025-02-09] MEDS: HYDROmorphone HCl 2 MG TABLET 4 MG PO ×4 (00:53→16:25)
[2025-02-09] MEDS: Heparin Sodium,Porcine 5,000 UNIT/ML VIAL 5000 UNIT SUBCUT ×2 (00:54→09:28)
[2025-02-09] MEDS: 0.9 % Sodium Chloride Flush 3 ML SYRINGE IVFLUSH ×2 (00:59→07:47)
[2025-02-09 03:40] VITALS: BP 144/65; PULSE 74; RESP 18; TEMP 37.1; O2SAT 90
[2025-02-09] MEDS: Omeprazole 40 MG CAPSULE.DR PO (05:19)
[2025-02-09] MEDS: Levothyroxine Sodium 112 MCG, Levothyroxine Sodium 25 MCG 137 MCG PO (05:19)
[2025-02-09 06:00] VITALS: BMI 27.9
[2025-02-09 07:13] VITALS: BP 133/65; PULSE 73; RESP 16; TEMP 36.7; O2SAT 98
[2025-02-09 07:36] LABS: Glucose, Whole Blood 90 mg/dL (60-115)
[2025-02-09] MEDS: cefuroxime axetiL 250 MG TABLET PO (07:40)
[2025-02-09] MEDS: amLODIPine Besylate 5 MG TABLET PO (07:40)
[2025-02-09] MEDS: Sevelamer Carbonate Tablet 800 MG TABLET 1600 MG PO (07:40)
[2025-02-09] MEDS: Losartan Potassium 50 MG TABLET 100 MG PO (07:40)
[2025-02-09] MEDS: Sucralfate 1 GM TABLET PO (07:41)
[2025-02-09] MEDS: atenoloL 100 MG TABLET PO (07:41)
[2025-02-09] MEDS: Atorvastatin Calcium 40 MG TABLET PO (07:42)
[2025-02-09] MEDS: Doxycycline Monohydrate 100 MG CAPSULE PO (07:42)
[2025-02-09 09:14] VITALS: BP 133/65; PULSE 73; O2SAT 98
--- NOTE | 2025-02-09 09:22 | P.PNNP_ITS ---
Subjective Subjective Date of Service: 02/09/25 Interval history: Events noted. Physical Exam 2 Vital Signs: Vital Signs: Last Vital Signs Temp 98.1 F 02/09/25 07:13 Pulse 73 02/09/25 09:14 Resp 16 02/09/25 07:13 BP 133/65 02/09/25 09:14 Pulse Ox 98 02/09/25 09:14 O2 Del Method Room Air 02/09/25 07:13 O2 Flow Rate 3 02/08/25 07:36 FiO2 50 02/05/25 17:00 Oxygen Flow Rate 15 02/04/25 03:44 BMI result Body Mass Index 27.9 Neck: Neck: Yes supple Resp: Auscultation: clear to auscultation bilaterally Cardio: Palpation: no palpable S3 Heart sounds: no rubs GI: Palpation (GI): Soft to palpation Auscultation: normal bowel sounds Neuro: Motor exam (neuro): no asterixis Objective Data Labs 02/08/25 12:48 02/08/25 18:16 Labs: Laboratory Results - last 24 hr 02/08/25 02/08/25 02/08/25 11:28 12:48 17:21 WBC 7.7 RBC 2.69 L Hgb 8.3 L Hct 24.1 L MCV 89.6 MCH 30.9 MCHC 34.4 RDW 15.3 Plt Count 306 D MPV 10.0 Immature Gran % (Auto) 0.6 H Neut % (Auto) 60.9 Lymph % (Auto) 16.2 L [place] % (Auto) 10.3 Eos % (Auto) 11.4 H Baso % (Auto) 0.6 Lymph # (Auto) 1.3 [place] # (Auto) 0.8 Eos # (Auto) 0.9 H Baso # (Auto) 0.1 Abs Immat Gran (auto) 0.05 H Absolute Neuts (auto) 4.7 Absolute Nucleated RBC 0.000 Nucleated RBC % (auto) 0.0 Sodium 130 L Potassium 3.7 Chloride 93 L Carbon Dioxide 24 Anion Gap 17 BUN 44 H Creatinine 7.98 H* Estim Creat Clear Calc 8.3 Estimated GFR 7 POC Glucose 109 158 H Random Glucose 136 H Calcium 8.3 L Phosphorus 1.7 L Magnesium 2.2 Albumin 3.0 L 02/08/25 02/08/25 02/09/25 18:16 20:21 07:32 WBC RBC Hgb Hct MCV MCH MCHC RDW Plt Count MPV Immature Gran % (Auto) Neut % (Auto) Lymph % (Auto) [place] % (Auto) Eos % (Auto) Baso % (Auto) Lymph # (Auto) [place] # (Auto) Eos # (Auto) Baso # (Auto) Abs Immat Gran (auto) Absolute Neuts (auto) Absolute Nucleated RBC Nucleated RBC % (auto) Sodium Potassium Chloride Carbon Dioxide Anion Gap BUN Creatinine 4.89 H* Estim Creat Clear Calc 13.6 Estimated GFR 12 POC Glucose 137 H 90 Random Glucose Calcium Phosphorus Magnesium Albumin Microbiology Microbiology Results: Microbiology 02/04/25 04:43 Blood - Venous Blood Culture - Final No growth after 5 days. 02/04/25 04:08 Blood - Venous Blood Culture - Final No growth after 5 days. Procedures Date of Service Date of Service: 02/09/25 Assessment & Plan Assessment and plan (1) End stage renal disease on dialysis: Status: Acute Plan End stage renal disease on dialysis Thursday Extra ultrafiltration today Needs to bring his dry weight down Low-sodium, low phosphorus diet with a fluid restriction Phosphorus binders 3 times a day with meals Procrit [id number] U thrice a week C/W rest of current management Time Spent With Patient Time: Total time managing care of this patient today ____ minutes. Progress Note: Quality Stroke Does the patient have a stroke diagnosis?: No
[2025-02-09] MEDS: ALPRAZolam 0.5 MG TABLET 2 MG PO (09:28)
[2025-02-09 11:42] LABS: Glucose, Whole Blood 120 mg/dL (60-115)
--- NOTE | 2025-02-09 12:30 | MHC.CM.PN ---
Addendum entered by Monica Macias 02/09/25 14:33: [facility] had a bed open up and offered pt to go there today for STR, pt and his updated and are in agreement. Pt will transport there via BLS/[facility]. Second IMM given 02/09. Original Note: EMR reviewed and per MD rounds, pt is medically cleared for discharge. Awaiting STR bed offer with HD slot. This CM spoke with pts Kyara, she said [facility] is the only facility she is agreeable to him going to, if no bed opens up at [facility], she will consider taking him home.
[2025-02-09 12:38] VITALS: BP 122/58; PULSE 63; RESP 14; TEMP 37.1; O2SAT 97
--- NOTE | 2025-02-09 12:52 | P.PNIM_ITS ---
Subjective Subjective Date of Service: 02/09/25 Interval History: seen and examined this morning follow up for pneumonia Reporting nasal congestion. Denies shortness of breath or cough Review of Systems Review of Systems: Yes all other systems are reviewed and are negative Constitutional Constitutional: Denies chills and Denies fever(s) Cardiovascular Cardiovascular: Denies dyspnea Respiratory Respiratory: Denies cough and Denies dyspnea Physical Exam 2 Vital Signs: Vital Signs: Last Vital Signs Temp 98.7 F 02/09/25 12:38 Pulse 63 02/09/25 12:38 Resp 14 02/09/25 12:38 BP 122/58 L 02/09/25 12:38 Pulse Ox 97 02/09/25 12:38 O2 Del Method Room Air 02/09/25 12:38 O2 Flow Rate 3 02/08/25 07:36 FiO2 50 02/05/25 17:00 Oxygen Flow Rate 15 02/04/25 03:44 BMI result Body Mass Index 27.9 Const: General: cooperative, comfortable, no acute distress, alert and awake Nutritional Appearance: average body habitus Resp: Effort & Inspection: normal respiratory effort, able to speak in complete sentences, no respiratory distress and no use of accessory muscles Cardio: Rate: regular rate GI: Inspection: No distended Palpation (GI): Soft to palpation Neuro: Other: grossly nonfocal Objective Data Active Medications Acetaminophen (Acetaminophen 325 Mg Tablet) 650 mg PO Q6H PRN PRN Reason: Pain, Mild 1-3,fever,headache Last Admin: 02/05/25 17:45 Dose: 650 mg Documented By: CAMPBELL Albuterol Sulfate (Albuterol Sulfate (0.083%) 2.5 Mg/3 Ml Vial.Neb) 2.5 mg INHALE Q6H PRN PRN Reason: Wheezing Albuterol Sulfate (Albuterol Sulfate 90 Mcg 8 Gm Inhaler) 2 puff INHALE Q6H PRN PRN Reason: Shortness Of Breath Or Wheezing Alprazolam (Alprazolam 0.5 Mg Tablet) 0.5 mg PO DAILY PRN PRN Reason: anxiety attack Last Admin: 02/04/25 12:25 Dose: 0.5 mg Documented By: NGOC Alprazolam (Alprazolam 0.5 Mg Tablet) 2 mg PO BID FRANCINE Last Admin: 02/09/25 09:28 Dose: 2 mg Documented By: GENESIS Amlodipine Besylate (Amlodipine Besylate 5 Mg Tablet) 5 mg PO BID [facility]; Protocol Last Admin: 02/09/25 07:40 Dose: 5 mg Documented By: GENESIS Amphetamine/Dextroamphetamine (Amphetamine Mixed Salts 20 Mg Tablet) 20 mg PO TID@0800,1400,1800 [facility] Last Admin: 02/09/25 07:42 Dose: Not Given Documented By: GENESIS Non-Admin Reason: Patient Refused Atenolol (Atenolol 100 Mg Tablet) 100 mg PO DAILY [facility]; Protocol Last Admin: 02/09/25 07:41 Dose: 100 mg Documented By: GENESIS Atorvastatin Calcium (Atorvastatin Calcium 40 Mg Tablet) 40 mg PO DAILY [facility] Last Admin: 02/09/25 07:42 Dose: 40 mg Documented By: GENESIS Calcium Carbonate (Calcium Carbonate 750 Mg Tab.Chew) 750 mg PO Q4H PRN PRN Reason: Heartburn Cefuroxime Axetil (Cefuroxime Axetil 250 Mg Tablet) 250 mg PO Q24H [facility] Last Admin: 02/09/25 07:40 Dose: 250 mg Documented By: GENESIS Dextrose (Dextrose 50 % 25 Gm/50 Ml Syringe) 25 gm IVPUSH Q15M PRN; Protocol PRN Reason: per Hypoglycemia Standing Ord. Doxycycline Monohydrate (Doxycycline Monohydrate 100 Mg Capsule) 100 mg PO Q12H [facility] Last Admin: 02/09/25 07:42 Dose: 100 mg Documented By: GENESIS Epoetin Lebron-epbx 3,000 unit/ (Epoetin Lebron-epbx 2,000 unit) 5,000 unit SUBCUT MoWeFr@1645 [facility] Last Admin: 02/08/25 18:18 Dose: 5,000 unit Documented By: ALEX Glucose (Glucose Gel 15 Gm Gel..Gram.) 15 gm PO Q15M PRN; Protocol PRN Reason: per Hypoglycemia Standing Ord. Heparin Sodium (Porcine) (Heparin Sodium,Porcine 5,000 Unit/Ml Vial) 5,000 unit SUBCUT Q8H [facility] Last Admin: 02/09/25 09:28 Dose: 5,000 unit Documented By: GENESIS Hydromorphone HCl (Hydromorphone Hcl 2 Mg Tablet) 4 mg PO Q3H PRN PRN Reason: Severe Pain (Scale Score 7-10) Last Admin: 02/09/25 07:41 Dose: 4 mg Documented By: GENESIS Insulin Glargine (Insulin Glargine,Hum.Rec.Anlog 100 Unit/Ml 10 Ml Vial) 7 unit SUBCUT BEDTIME [facility] Last Admin: 02/08/25 20:40 Dose: 7 unit Documented By: AJIT Insulin Human Lispro (Insulin Lispro 100 Unit/Ml 3 Ml Vial) 0 unit SUBCUT QIDACHS [facility]; Protocol Last Admin: 02/09/25 12:13 Dose: Not Given Documented By: GENESIS Non-Admin Reason: No Insulin Coverage Levothyroxine Sodium 112 mcg/ (Levothyroxine Sodium 25 mcg) 137 mcg PO DAILY@0600 [facility] Last Admin: 02/09/25 05:19 Dose: 137 mcg Documented By: AJIT Losartan Potassium (Losartan Potassium 50 Mg Tablet) 100 mg PO DAILY [facility]; Protocol Last Admin: 02/09/25 07:40 Dose: 100 mg Documented By: GENESIS Magnesium Hydroxide (Milk Of Magnesia 30 Ml Oral.Susp) 30 ml PO DAILY PRN PRN Reason: Constipation Last Admin: 02/07/25 16:05 Dose: 30 ml Documented By: DOROTA Melatonin (Melatonin 3 Mg Tablet) 6 mg PO BEDTIME PRN PRN Reason: Insomnia Morphine Sulfate (Morphine Sulfate 2 Mg/Ml Cartridge) 2 mg IVPUSH Q4H PRN; Protocol PRN Reason: Pain, Severe (Pain Scale 7-10) Last Admin: 02/08/25 17:29 Dose: 2 mg Documented By: ALEX Omeprazole (Omeprazole 40 Mg Capsule.Dr) 40 mg PO BID@0630,1630 [facility] Last Admin: 02/09/25 05:19 Dose: 40 mg Documented By: AJIT Quetiapine Fumarate (Quetiapine Fumarate 25 Mg Tablet) 25 mg PO BID PRN PRN Reason: Agitation Sevelamer Carbonate (Sevelamer Carbonate Tablet 800 Mg Tablet) 800 mg PO DAILY PRN PRN Reason: SNACKS Sevelamer Carbonate (Sevelamer Carbonate Tablet 800 Mg Tablet) 1,600 mg PO TIDWM [facility] Last Admin: 02/09/25 07:40 Dose: 1,600 mg Documented By: GENESIS Sodium Chloride (0.9 % Sodium Chloride Flush 3 Ml Syringe) 3 ml IVFLUSH QSHIFT [facility] Last Admin: 02/09/25 07:47 Dose: 3 ml Documented By: GENESIS Sodium Chloride (Sodium Chloride 0.65 % Nasal 44 Ml Sprbtl) 1 spray NOSTRIL-B Q1H PRN PRN Reason: Nasal Congestion Sodium Zirconium Cyclosilicate (Sodium Zirconium Cyclosilicate 10 Gm Powd.Pack) 10 gm PO SUTUTHSA@0900 [facility] Last Admin: 02/09/25 09:26 Dose: Not Given Documented By: GENESIS Non-Admin Reason: getting dialysis today Sucralfate (Sucralfate 1 Gm Tablet) 1 gm PO BID [facility] Last Admin: 02/09/25 07:41 Dose: 1 gm Documented By: GENESIS Vitamin D (Cholecalciferol (Vitamin D3) 25 Mcg Tablet) 125 mcg PO SuTuThSa@0900 [facility] Last Admin: 02/09/25 09:27 Dose: Not Given Documented By: GENESIS Non-Admin Reason: getting dilaysis today Labs 02/08/25 12:48 02/08/25 18:16 Labs: Laboratory Results - last 24 hr 02/08/25 02/08/25 02/08/25 12:48 17:21 18:16 MCV 89.6 MCH 30.9 MCHC 34.4 RDW 15.3 Plt Count 306 D MPV 10.0 Immature Gran % (Auto) 0.6 H Neut % (Auto) 60.9 Lymph % (Auto) 16.2 L [place] % (Auto) 10.3 Eos % (Auto) 11.4 H Baso % (Auto) 0.6 Lymph # (Auto) 1.3 [place] # (Auto) 0.8 Eos # (Auto) 0.9 H Baso # (Auto) 0.1 Abs Immat Gran (auto) 0.05 H Absolute Neuts (auto) 4.7 Absolute Nucleated RBC 0.000 Nucleated RBC % (auto) 0.0 Anion Gap 17 Estim Creat Clear Calc 8.3 13.6 Estimated GFR 7 12 POC Glucose 158 H Random Glucose 136 H Calcium 8.3 L Phosphorus 1.7 L Magnesium 2.2 Albumin 3.0 L 02/08/25 02/09/25 02/09/25 20:21 07:32 11:39 MCV MCH MCHC RDW Plt Count MPV Immature Gran % (Auto) Neut % (Auto) Lymph % (Auto) [place] % (Auto) Eos % (Auto) Baso % (Auto) Lymph # (Auto) [place] # (Auto) Eos # (Auto) Baso # (Auto) Abs Immat Gran (auto) Absolute Neuts (auto) Absolute Nucleated RBC Nucleated RBC % (auto) Anion Gap Estim Creat Clear Calc Estimated GFR POC Glucose 137 H 90 120 H Random Glucose Calcium Phosphorus Magnesium Albumin Microbiology Microbiology Results: Microbiology 02/04/25 04:43 Blood Culture - Final Blood - Venous No growth after 5 days. 02/04/25 04:08 Blood Culture - Final Blood - Venous No growth after 5 days. Assessment and Plan (1) End stage renal disease on dialysis: Status: Acute (2) Pneumonia: Status: Acute Plan This is 70 year old male with PMH significant for?ESRD on HD MWF, insulin- dependent type 2 diabetes, hypothyroidism, HLD, chronic anemia, hypothyroidism, GERD, and mood disorder with recent admissions for unsteady gait and anemia s/p egd/colonoscopy on 01/24 found to have esophagitis, gastritis, duodenitis, diverticulosis, internal hemorrhoids, now admitted with hypoxic respiratory failure secondary to bilateral pna and sepsis. 02/04 patient tx to ICU for Hypoxia and placed on High flow and downgraded to the medical floor on 02/07 Hypoxic respiratory failure secondary to bilateral pna initially treate with IV vancomycin and cefepime. Changed to renally dosed cefuroxime as well as doxycycline on 02/09. 7 days abx end date 02/11 pos influenza for a month, seems like bacterial superinfection Weaned off high flow and stable on room air Blood cultures negative ESRD on dialysis [facility] Epo with dialysis Nephrology following HTN amlodipine, losartan and atenolol DM2 SS, lantus chronic anemia due to chronic disease also recently dx to have esophagitis, gastritis, duodenitis, diverticulosis, internal hemorrhoids continue prilosec, plan was for carafate x2 weeks (end date 02/08) can stop when discharged H/H stable ? Foreign body CT scan from February 05 showing radiopaque foreign body located in the distal esophagus. Patient underwent EGD on January 24 - per report 2 clips applied for hemostasis during that procedure; d/w GI, this accounts for foreign body seen ?cystitis Imaging showing possible cystitis. Patient does not make much urine, no urinalysis collected. No urinary symptoms. White count resolved, no fever, improving on antibiotics for above pneumonia hypothyroidism levothyroxine Anxiety continue xanax DVT heparin Requires ongoing inpatient stay due to placement Quality Stroke Does the patient have a stroke diagnosis?: No VTE Prior VTE?: No VTE Risk Level:: Medical - moderate - high VTE Device Contraindication: Treatment Not Indicated VTE Drug Contraindication: N/A - Med Ordered
--- NOTE | 2025-02-09 14:15 | P.DS_ITS ---
DS: Providers Provider Date of Service: 02/09/25 Date of admission: 02/04/25 09:51 Date of discharge: 02/09/25 Primary care physician: Matias Tan MD Consults: 02/04/25 10:39 Consult to Pulmonology Routine Consulting Provider: [facility] Reason for consultation: Recurrent pneumonia and respiratory failure 02/04/25 11:14 Consult to Nephrology Routine Consulting Provider: [facility] Reason for consultation: ESRD on HD M/W/F 02/04/25 12:21 Consult to Critical Care Routine Consulting Provider: Devendra Peraza Reason for consultation: level of care Has provider been notified: No Attending physician on discharge: Bello Carpenter Discharging clinician: Ginger La DS: Diagnosis Discharge Diagnosis (1) End stage renal disease on dialysis: Status: Acute (2) Pneumonia: Status: Acute DS: Summary Hospital Course Hospital Course: From H&P on the day of admission Pt is a 70-year-old male with a PMH significant for?ESRD on HD //, insulin-dependent type 2 diabetes, hypothyroidism, HLD, normocytic anemia of chronic disease, hypothyroidism, GERD, and mood disorder who presents to the ED after mechanical fall earlier this morning while attempting to get out of bed. Pt has had multiple recent admissions to the hospital, including from 01/09-01/11 where he was treated for hypoxia in the setting of influenza and bilateral pneumonia. Was then admitted again on 01/18-01/21 for acute encephalopathy and chronic gait abnormality. Pt was then readmitted the following day due to generalized weakness, abdominal pain, and acute on chronic anemia. Underwent EGD and colonoscopy on 01/24/2025 which showed esophagitis, gastritis, duodenitis, as well as diverticulosis and internal hemorrhoids. Was discharged to [facility] with high-dose PPI and Carafate. Rehab could not accommodate patient's // dialysis schedule, so was changed to . Pt was discharged on without receiving dialysis; instead under went a 5-hour dialysis session yesterday on Thursday (normally gets 3-hour sessions). Rehab otherwise uneventful. This morning pt awoke at 2:00 with SOB and stating he could not breath . Attempted to get out of bed to use the bathroom but legs gave out and he fell, hitting the back of his head on a metal bar on the bed. No LOC. Currently denies headache. No acute vision changes. Reports significant cough a few days ago, but nothing earlier today. Denies nausea, vomiting, abdominal pain. Chronic leg pain at baseline. Denies chest pain/pressure, palpitations. Of note, spoke at length with patient's /HCP who note pt has been declining steadily for the past 4 years, much more precipitously the past year with multiple hospitalizations and stints in rehab. Apparently dialysis in particular has becoming more and more difficult to tolerate. Has been considering stopping dialysis and going on Hospice. In the ED pt was febrile up to 101.1, tachypneic up to 27, and mildly hypertensive up to 159/74. Pt was hypoxic at time of presentation in the mid 80s on RA. Initially placed on CPAP then weaned to OxyMask 10L, satting at 92%. During initial encounter with pt for admission, pt was noted to be desatting to 86% on OxyMask 12 L. pt was then placed back on rescue CPAP until he became stabilized and was weaned to OxyMask 6 L, currently satting at 95%. Labs were significant for leukocytosis of 11.8, and VBG pH 7.46 with pCO2 53 and bicarb 38. Otherwise around baseline for pt. Normocytic anemia of 8.2/23.8 stable from prior on 01/30/2025. Creatinine baseline at 5.35. BNP 2775, elevated from prior reading on 01/09/2025 of 754, but in line with all other previous readings for the past 18 months. No significant electrolyte abnormalities. Lactic acid WNL at 1.5. Hepatic function WNL. Initial troponin 31.0, in line with previous. Stool negative for occult blood. Pt again tested positive for influenza type a, but has tested positive for the 4th time since 01/07/2025. CXR showed bilateral consolidations concerning for pneumonia vs pulmonary edema. CT of chest showed patchy bilateral ground-glass opacities concerning for multifocal infection. ?CT of head negative for intracranial hemorrhage or fracture, but showing mild global atrophy. CT of cervical spine negative for acute fracture or malalignment, potential right lower cervical/supraclavicular adenopathy. EKG demonstrated normal sinus rhythm with mild ST-depression in V4 and V5, which has been seen on previous EKGs. Pt was treated in the ED with IVF, morphine, Tylenol, Dilaudid p.o., azithromycin, and ceftriaxone. Pt is admitted to the hospital for treatment and further evaluation of acute hypoxic respiratory failure in setting of recurrent bilateral pneumonia Hypoxic respiratory failure secondary to bilateral pna. Patient initially admitted to the medical service but quickly deteriorated and required high-flow oxygen, was transferred to the ICU for further care. Was downgraded to the medical floor on February 07. He was initially treated with IV vancomycin and cefepime, was weaned off of supplemental oxygen, leukocytosis resolved, respiratory status improved. Changed to renally dosed cefuroxime as well as doxycycline on 02/09. 7 days abx end date 02/11. Continued to test positive for influenza for a month, seems like bacterial superinfection. Blood cultures negative to date. Small bilateral pleural effusions seen on initial imaging, likely due to fluid overload due to ESRD rather than parapneumonic effusion. Can consider outpatient repeat imaging to assess for resolution. ESRD on dialysis MWF schedule. Continued on lokelma, renvela HTN amlodipine, losartan and atenolol continued. Blood pressure stable DM2 SS, lantus 7U lower then home dose and covered with sliding scale. Blood sugars have been well controlled chronic anemia due to chronic disease also recently dx to have esophagitis, gastritis, duodenitis, diverticulosis, internal hemorrhoids. continue prilosec, plan was for carafate x2 weeks (end date 02/08) H/H stable ? Foreign body CT scan from February 05 showing radiopaque foreign body located in the distal esophagus. Patient underwent EGD on January 24 - per report 2 clips applied for hemostasis during that procedure; d/w GI, this accounts for foreign body seen on imaging ?cystitis Imaging showing possible cystitis. Patient does not make much urine, no urinalysis collected. No urinary symptoms. White count resolved, no fever, improving on antibiotics for above pneumonia Mediastinal and supraclavicular adenopathy may be reactive. Recommend outpatient follow-up to assess for resolution Patient evaluated by Physical therapy who recommended home with services however is his primary caregiver she recently had surgery in his unable to care for home as she was previously therefore patient will be discharged to short-term rehab for further management. Time Attestation Discharge Coordination Time (in mins): 36 Quality: Safe Use of Opioids Does Pt have an Active Cancer Diagnosis on the Problem List?: No Quality: Stroke Does the patient have a stroke diagnosis?: No Physical Exam Vital Signs: Vital Signs: Last Vital Signs Temp 98.7 F 02/09/25 12:38 Pulse 63 02/09/25 12:38 Resp 14 02/09/25 12:38 BP 122/58 L 02/09/25 12:38 Pulse Ox 97 02/09/25 12:38 O2 Del Method Room Air 02/09/25 12:38 O2 Flow Rate 3 02/08/25 07:36 FiO2 50 02/05/25 17:00 Oxygen Flow Rate 15 02/04/25 03:44 BMI result Body Mass Index 27.9 Const: General: cooperative, comfortable, no acute distress, alert and awake Nutritional Appearance: average body habitus Resp: Effort & Inspection: normal respiratory effort, able to speak in complete sentences, no respiratory distress and no use of accessory muscles Cardio: Rate: regular rate GI: Inspection: No distended Palpation (GI): Soft to palpation Neuro: Other: grossly nonfocal DS: Data Data Completed and Pending Completed studies during hospitalization [Text1]: Procedures Assistance with Respiratory Ventilation, Less than 24 Consecutive Hours, Continuous Positive Airway Pressure (11/04/23) Control Bleeding in Gastrointestinal Tract, Via Natural or Artificial Opening Endoscopic (01/22/25) Excision of Esophagogastric Junction, Via Natural or Artificial Opening Endoscopic, Diagnostic (01/22/25) Excision of Stomach, Pylorus, Via Natural or Artificial Opening Endoscopic, Diagnostic (01/22/25) Inspection of Lower Intestinal Tract, Via Natural or Artificial Opening Endoscopic (01/22/25) Performance of Urinary Filtration, Intermittent, Less than 6 Hours Per Day (01/22/25) Labs on day of discharge: Laboratory Results - last 24 hr 02/08/25 02/08/25 02/08/25 17:21 18:16 20:21 Creatinine 4.89 H* Estim Creat Clear Calc 13.6 Estimated GFR 12 POC Glucose 158 H 137 H 02/09/25 02/09/25 07:32 11:39 Creatinine Estim Creat Clear Calc Estimated GFR POC Glucose 90 120 H Discharge Plan Discharge Anticipated Discharge Date/Time: 02/09/25 15:30 Patient Disposition: [facility] Discharge Diagnosis: acute respiratory failure due to pneumonia Referrals: [facility] BILL [Outside] - 1 Day (RESUMPTION OF CARE) Matias Tan MD [Primary Care Provider] - 1 Week Discharge Medications: New cefuroxime axetil 250 mg Tablet 250 mg PO Q24H Qty: 2 0RF doxycycline monohydrate 100 mg Capsule 100 mg PO Q12H 2 Days Qty: 4 0RF Continued levothyroxine 137 mcg tablet 1 tab PO DAILY@0600 atenolol 100 mg tablet 1 tab PO DAILY dextroamphetamine-amphetamine 20 mg tablet 1 tab PO TID@0800,1400,1800 Lokelma 10 gram Powder In Packet 10 g PO SUTUTHSA@0900 Rx Instructions: on non dialysis days vitamin D3-vitamin K2 25 mcg (1,000 unit)-90 mcg Tablet,Disintegrating 1 tab PO SUTUTHSA@0900 losartan 100 mg tablet 100 mg PO DAILY sevelamer carbonate 800 mg tablet 1,600 mg PO TIDWM hydromorphone 4 mg tablet 4 mg PO Q3H PRN (Reason: Severe Pain (Scale Score 7-10)) Qty: 20 0RF Patient Comments: Does not normally take sometimes can go 4-5 hours but takes every 3 hours quetiapine [Seroquel] 25 mg Tablet 25 mg PO BID PRN (Reason: Agitation) Rx Instructions: Pt does not take at home, something placed on last Admit, new orders not given at home albuterol sulfate 2.5 mg /3 mL (0.083 %) Solution For Nebulization 2.5 mg INHALATION Q6H PRN (Reason: Wheezing) Rx Instructions: hasnt been taking at home calcium carbonate [Tums] 200 mg calcium (500 mg) Tablet,Chewable 200 mg PO TID PRN (Reason: UPSET STOMACH) Rx Instructions: Pt not taking B complex with C 20-folic acid 1 mg Capsule 1 cap PO SUTUTHSA@0900 Rx Instructions: only takes on off HD days albuterol sulfate [Ventolin HFA] 90 mcg/actuation Hfa Aerosol Inhaler 2 puff INHALATION Q6H PRN (Reason: Shortness Of Breath Or Wheezing) Patient Comments: reporting he is not using them sevelamer carbonate 800 mg Tablet 800 mg PO DAILY PRN (Reason: SNACKS) Rx Instructions: must administer with a meal/food melatonin 5 mg Tablet 5 mg PO BEDTIME PRN (Reason: Insomnia) Rx Instructions: Pt does not take at home, something placed on last Admit, new orders not given at home cholecalciferol (vitamin D3) [Vitamin D3] 125 mcg (5,000 unit) Tablet 125 mcg PO SUTUTHSA@0900 Rx Instructions: only takes on nonHD days omeprazole 40 mg capsule,delayed release(DR/EC) 40 mg PO BID@0630,1630 Rx Instructions: Pt does not take at home, something placed on last Admit, new orders not given at home amlodipine 5 mg tablet 5 mg PO BID atorvastatin 40 mg tablet 40 mg PO DAILY alprazolam 0.5 mg tablet 0.5 mg PO DAILY PRN (Reason: anxiety attack) Patient Comments: has been doing twice a day alprazolam 2 mg tablet 2 mg PO BID Changed insulin glargine [Lantus U-100 Insulin] 100 unit/mL Solution 7 unit SUBCUT BEDTIME Qty: 10 0RF Rx Instructions: Pt does not take at home, something placed on last Admit, new orders not giv en at home Held insulin lispro [Humalog KwikPen Insulin] 100 unit/mL insulin pen See Protocol subcut TIDAC PRN (Reason: Blood Glucose) Hold Instructions: received sliding scale coverage during hospital stay Protocol: Insulin Correction Scale Less than or equal to 110 ---- Give (units): 0 111 to 150 Give (units): 0 151 to 200 Give (units): 2 201 to 250 Give (units): 4 251 to 300 Give (units): 6 301 to 350 Give (units): 8 Greater than 350 Give (units): 10 Call MD if Blood Glucose > : 350 Rx Instructions: Pt does not take at home, something placed on last Admit, new orders not given at home Discontinued sucralfate [Carafate] 1 gram tablet 1 g PO BID 14 Days Qty: 28 0RF Rx Instructions: Pt does not take at home, something placed on last Admit, new orders not given at home No Action (DME) FreeStyle Lite Strips Strip MISCELLANEOUS TID (DME) pen needle, diabetic [BD Ultra-Fine Short Pen Needle] 31 gauge x 5/16 needle subcut DAILY Discharge Orders: Discharge Order (Routine); Ordered 02/09/25 Ordered By: Ginger La Activity on Discharge: As tolerated Stand Alone Forms: Patient Portal Discharge page Print Language: Polish Care Plan Goals: See below Health Concerns: Acute respiratory failure due to pneumonia ESRD. Continue dialysis per Thursday schedule as per Nephrology recommendation Chronic anemia/esophagitis, duodentitis, gastritis discharged with 2 weeks of Carafate on previous admission, completed two week course. continue prilosec Plan of Treatment: For pneumonia-complete 2 more days oral antibiotics ceftin and doxycycline Bilateral pleural effusions, likely due to underlying ESRD and less likely due to pneumonia. Consider repeat chest x-ray to assess for resolution of pleural effusions. Mediastinal and supraclavicular adenopathy noted on chest CT from February 04. Consider repeat outpatient imaging to assess for resolution for diabetes-continue Lantus 7 units (reduced from 10u) and cover with sliding scale per unit protocol Assessment: See discharge summary
[2025-02-09 15:00] VITALS: BP 129/80; PULSE 68; RESP 16; TEMP 37.2; O2SAT 98
[2025-02-10 23:18] LABS: Mycoplasma Pneumoniae - IgG <=0.90 (<=0.90); Mycoplasma Pneumoniae - IgM 55 U/mL (<770)
[2025-02-13 05:24] LABS: Legionella Ag Urine Not Detected (Not Detected)
[2025-02-15 03:29] LABS: Strep Pneumo Ag urine Not Detected (Not Detected)
== END 2025-02-09 16:51 | disposition skilled nursing facility (03) | DRG 871 ==
LOC: HO.ED 07:23 → HO.EDOVER 10:03 → HO.ICU 13:11 → HO.IMC 02-07 14:50
PROVIDERS: Internal Medicine; Internal Medicine Critical Care Medicine; Internal Medicine Pulmonary Disease; Nurse Practitioner Acute Care; Physician Assistant; Physician Assistant Medical; Admitting Provider Student in an Organized Health Care Education/Training Program; Emergency Provider Emergency Medicine; PCP Family Medicine; Visit Provider Physician Assistant Medical
DX: A41.9 Sepsis, unspecified organism (principal); G93.41 Metabolic encephalopathy; N18.6 End stage renal disease; J10.08 Influenza due to other identified influenza virus with other specified pneumonia; J15.9 Unspecified bacterial pneumonia; I12.0 Hypertensive chronic kidney disease with stage 5 chronic kidney disease or end stage renal disease; K21.9 Gastro-esophageal reflux disease without esophagitis; E03.9 Hypothyroidism, unspecified; E11.22 Type 2 diabetes mellitus with diabetic chronic kidney disease; F41.9 Anxiety disorder, unspecified; E78.5 Hyperlipidemia, unspecified; D63.1 Anemia in chronic kidney disease; Z20.822 Contact with and (suspected) exposure to COVID-19; Z99.2 Dependence on renal dialysis; Z91.158 Patient's noncompliance with renal dialysis for other reason; Z87.01 Personal history of pneumonia (recurrent); Z79.4 Long term (current) use of insulin; Z79.890 Hormone replacement therapy; Z79.899 Other long term (current) drug therapy
CPT/HCPCS: 0241U; 36415; 36600; 70450; 71045; 71250; 72125; 74177; 80048; 80053; 80076; 80202; 82040; 82272; 82565; 82803; 82947; 83605; 83735; 83880; 84100; 84484; 85025; 85027; 86738; 86850; 86900; 86901; 86923; 87040; 87449; 87640; 87641; 87899; 90999; 93005; 94660; 97116; 97162; 99285; J0131; J0456; J0692; J0696; J1171; J1644; J1920; J1938; J2270; J3010; J3371; P9016; Q5106; Q9967

== ENCOUNTER → 2025-02-04 03:39 | Outpatient (BNV) | payer MEDICARE, SELFPAY | PROVIDERS: Admitting Provider Student in an Organized Health Care Education/Training Program; Emergency Provider Emergency Medicine; Visit Provider Internal Medicine Cardiovascular Disease | DX: R94.31 Abnormal electrocardiogram [ECG] [EKG] (principal); R06.02 Shortness of breath | CPT/HCPCS: 93010 ==

== ENCOUNTER → 2025-02-04 03:41 | Outpatient (BNV) | payer MEDICARE, SELFPAY | PROVIDERS: Emergency Provider Emergency Medicine; Visit Provider Specialist | DX: J90 Pleural effusion, not elsewhere classified (principal); M54.2 Cervicalgia; R06.02 Shortness of breath | CPT/HCPCS: 71045 ==

== ENCOUNTER 2025-02-04 09:51 | Outpatient (BNV) | payer MEDICARE, SELFPAY | END 2025-02-05 12:02 | PROVIDERS: Admitting Provider Student in an Organized Health Care Education/Training Program; Emergency Provider Emergency Medicine; Visit Provider Radiology Diagnostic Radiology | DX: J18.9 Pneumonia, unspecified organism (principal); J90 Pleural effusion, not elsewhere classified; N30.90 Cystitis, unspecified without hematuria | CPT/HCPCS: 74177 ==

== ENCOUNTER → 2025-02-04 09:51 | Outpatient (BNV) | payer MEDICARE, SELFPAY | PROVIDERS: Admitting Provider Student in an Organized Health Care Education/Training Program; Emergency Provider Emergency Medicine; Visit Provider Student in an Organized Health Care Education/Training Program | DX: N18.6 End stage renal disease (principal); Z99.2 Dependence on renal dialysis; J18.9 Pneumonia, unspecified organism | CPT/HCPCS: 99223; 99232; 99239; 99499 ==

== ENCOUNTER → 2025-02-04 09:51 | Outpatient (BNV) | payer MEDICARE, SELFPAY | PROVIDERS: Admitting Provider Student in an Organized Health Care Education/Training Program; Emergency Provider Emergency Medicine; PCP Family Medicine; Visit Provider Internal Medicine Hypertension Specialist | DX: N18.6 End stage renal disease (principal); Z99.2 Dependence on renal dialysis | CPT/HCPCS: 90935 ==

== ENCOUNTER → 2025-02-04 09:51 | Outpatient (BNV) | payer MEDICARE, SELFPAY | PROVIDERS: Admitting Provider Student in an Organized Health Care Education/Training Program; Emergency Provider Emergency Medicine; Visit Provider Internal Medicine Pulmonary Disease | DX: J96.01 Acute respiratory failure with hypoxia (principal); N18.6 End stage renal disease; Z99.2 Dependence on renal dialysis; J18.9 Pneumonia, unspecified organism; E03.9 Hypothyroidism, unspecified; J10.1 Influenza due to other identified influenza virus with other respiratory manifestations | CPT/HCPCS: 99232 ==

== ENCOUNTER → 2025-02-04 09:51 | Outpatient (BNV) | payer MEDICARE, SELFPAY | PROVIDERS: Admitting Provider Student in an Organized Health Care Education/Training Program; Emergency Provider Emergency Medicine; Visit Provider Internal Medicine Critical Care Medicine | DX: I50.9 Heart failure, unspecified (principal); N18.6 End stage renal disease; D64.9 Anemia, unspecified; J18.9 Pneumonia, unspecified organism; J96.01 Acute respiratory failure with hypoxia | CPT/HCPCS: 99223; 99291; 99499 ==

== ENCOUNTER 2025-02-06 06:32 | Outpatient (REF) | payer MEDICARE, SELFPAY | END 2025-02-06 06:33 | disposition home or self-care (01) | LOC: HO.MMNH1L 06:32 | PROVIDERS: Visit Provider Nurse Practitioner | DX: Z13.89 Encounter for screening for other disorder (principal) ==

== ENCOUNTER 2025-02-10 05:30 | Outpatient (REF) | payer MEDICARE, SELFPAY ==
[2025-02-10 05:32] LABS: MANUAL DIFF FLAG NO
--- OUTSIDE RECORDS SUMMARY | 2025-02-10 05:32 | XMS_ITS | Encounter Summary ---
Author Organization [facility] Address [address] [place] [address] Phone Care Team Providers Care Drug Counselor Name Role Phone Matias Tan MD Primary Care Provider +1- [phone] Reason for Visit * Reason Comments Med Refill Encounter Details Date Type Department Care Team (Late st Contact Info) Description 06/24/2022 Refill [facility] [place], [address] [phone] Guanako Mercer MD [address] [place] [phone] Social History Tobacco Use Types Packs/Day Years [...] visit [facility] [address] [place] [phone] documented as of this encounter Visit Diagnoses Not on filedocumented in this encounter Care Teams Drug Counselor Relationship Specialty Start Date End Date Matias Tan MD [address] [place] [phone] PCP - General Family Medicine 10/24/19 documented as of this encounter
--- OUTSIDE RECORDS SUMMARY | 2025-02-10 05:32 | XMS_ITS | Encounter Summary ---
Author Organization [facility] [place], Address [address] [place] [address] Phone Care Team Providers Care Process Engineering Technician Name Role Phone Matias Tan MD Primary Care Provider +1- [phone] Reason for Visit * Reason Onset Date Comments Med Refill 06/08/2022 Encounter Details Date Type Department Care Team (Late st Contact Info) Description 06/08/2022 Refill [facility], [address] [place] [phone] Guanako Mercer MD [address] [place] [phone] Social History Tobacco Use Types Packs/Day Years [...] visit [facility] [address] [place] [address] documented as of this encounter Visit Diagnoses Not on filedocumented in this encounter Care Teams Process Engineering Technician Relationship Specialty Start Date End Date Matias Tan MD [address] [facility] [place] [address] PCP - General Family Medicine 10/24/19 documented as of this encounter
--- OUTSIDE RECORDS SUMMARY | 2025-02-10 05:32 | XMS_ITS | Encounter Summary ---
Author Organization [facility] [place], Address [address] [place] [address] Phone Care Team Providers Care Steel Burner Name Role Phone Matias Tan MD Primary Care Provider +1- [phone] Reason for Visit * Reason Comments Med Refill Encounter Details Date Type Department Care Team (Late st Contact Info) Description 09/24/2023 Refill [facility] [place] [address] [place] [phone] Denys Mueller MD [address] [place] [address] Social History Tobacco Use Types [...] visit [facility] [place] [address] [place] [phone] documented as of this encounter Visit Diagnoses Not on filedocumented in this encounter Care Teams Steel Burner Relationship Specialty Start Date End Date Matias Tan MD [address] [place] [address] PCP - General Family Medicine 10/24/19 documented as of this encounter
--- OUTSIDE RECORDS SUMMARY | 2025-02-10 05:32 | XMS_ITS | Encounter Summary ---
Author Organization [facility], Address [address] [place] [address] Phone Care Team Providers Care Dry Cleaner Name Role Phone Matias Tan MD Primary Care Provider +1- [phone] Reason for Visit * Reason Onset Date Comments Med Refill 06/24/2022 Encounter Details Date Type Department Care Team (Late st Contact Info) Description 06/24/2022 Refill [facility], [address] [place] [phone] Guanako Mercer MD [address] [place] [phone] Social History Tobacco Use Types Packs/Day Years [...] visit [facility] [place] [address] [place] [phone] documented as of this encounter Visit Diagnoses Not on filedocumented in this encounter Care Teams Dry Cleaner Relationship Specialty Start Date End Date Matias Tan MD [address] [place] [address] PCP - General Family Medicine 10/24/19 documented as of this encounter
--- OUTSIDE RECORDS SUMMARY | 2025-02-10 05:32 | XMS_ITS | Encounter Summary ---
Author Organization [facility] [place], Address [address] [place] [address] Phone Care Team Providers Care Candle Molder Hand Name Role Phone Matias Tan MD Primary Care Provider +1- [phone] Encounter Details Date Type Department Care Team (Late st Contact Info) Description 01/10/2022 Documentation Only [facility] [place], [address] [place] [phone] [address] [place] [address] Social History Tobacco Use Types [...] visit [facility] [place] [address] [place] [phone] documented as of this encounter Visit Diagnoses Not on filedocumented in this encounter Care Teams Candle Molder Hand Relationship Specialty Start Date End Date Matias Tan MD [address] [place] [address] PCP - General Family Medicine 10/24/19 documented as of this encounter
--- OUTSIDE RECORDS SUMMARY | 2025-02-10 05:32 | XMS_ITS | Encounter Summary ---
Author Organization [facility], Address [address] [place] [address] Phone Care Team Providers Care Warp Dresser Name Role Phone Matias Tan MD Primary Care Provider +1- [phone] Reason for Visit * Reason Comments Med Refill Encounter Details Date Type Department Care Team (Late st Contact Info) Description 09/24/2023 Refill [facility] [address] [place] [address] Gabriela Hernandez PA Social History Tobacco [...] visit [facility] [place], [facility] [address] [place] [address] documented as of this encounter Visit Diagnoses Not on filedocumented in this encounter Care Teams Warp Dresser Relationship Specialty Start Date End Date Matias Tan MD [facility] [address] [place] [address] PCP - General Family Medicine 10/24/19 documented as of this encounter
--- OUTSIDE RECORDS SUMMARY | 2025-02-10 05:32 | XMS_ITS | Encounter Summary ---
Author Organization [facility] Address [address] [place] [address] Care Team Providers Care Phonograph Mechanic Name Role Phone Yulia Smrat MD Primary Care Provider Encounter Details Date Type Department Care Team (Late st Contact Info) Description 01/14/2025 Lab Requisition [facility] - Main Lab [address] [place] [address] Yulia Smart MD [address] [place] [address] Encounter for other general examination Social History [...] METHOD 01/14/2025 12:17 PM EDT [facility] Blood Venous blood specimen / Unknown Venipuncture / Unknown 01/14/2025 5:58 AM EDT 01/14/2025 9:53 AM EDT us Yulia Smart MD LAB BLOOD ORDERABLES Final Resu lt [facility] [place] [facility] [address] [place] [address], documented in this encounter Visit Diagnoses Diagnosis Encounter for other general examination documented in this encounter Care Teams Phonograph Mechanic Relationship Specialty Start Date End Date Yulia Smart MD [address] [place] [address] PCP - General Hospitalist Medicine 01/13/25 documented as of this encounter
--- OUTSIDE RECORDS SUMMARY | 2025-02-10 05:32 | XMS_ITS | Encounter Summary ---
Author Organization [facility] Address [address] [place] [address] Care Team Providers Care Cna Gna Name Role Phone Yulia Smart MD Primary Care Provider Encounter Details Date Type Department Care Team (Late st Contact Info) Description 01/18/2025 Lab Requisition [facility] - Main Lab [address] [facility] [place] [address] Yulia Smart MD [address] [place] [address] Encounter for other general examination Social History [...] K/mcL LAB HEMETOLOGY METHOD 01/18/2025 7:10 AM [facility] RBC 3.10(L) 4.50 - 5.50 M/mcL LAB HEMETOLOGY METHOD 01/18/2025 7:10 AM [facility] Hemoglobin 9.5(L) 13.5 - 17.5 g/dL LAB HEMETOLOGY METHOD 01/18/2025 7:10 AM [facility] Hematocrit 27.0(L) 42.0 - 54.0 % LAB HEMETOLOGY METHOD 01/18/2025 7:10 AM [facility] MCV 87.1 79.0 - 98.0 FL LAB HEMETOLOGY METHOD 01/18/2025 7:10 AM [facility] MCH 30.6 27.0 - 32.0 pcg LAB HEMETOLOGY METHOD 01/18/2025 7:10 AM [facility] MCHC 35.2 32.0 - 37.0 g/dL LAB HEMETOLOGY METHOD 01/18/2025 7:10 AM [facility] RDW 14.3 11.0 - 15.0 % LAB HEMETOLOGY METHOD 01/18/2025 7:10 AM [facility] Platelets 251 130 - 400 K/mcL LAB HEMETOLOGY METHOD 01/18/2025 7:10 AM [facility] MPV 11.1(H) 7.0 - 11.0 FL LAB HEMETOLOGY METHOD 01/18/2025 7:10 AM [facility] NRBC 0.0 <1.0 % LAB HEMETOLOGY METHOD 01/18/2025 7:10 AM [facility] NRBC Absolute 0.00 <0.10 K/mcL LAB HEMETOLOGY METHOD 01/18/2025 7:10 AM EDT [facility] Neutrophils Relative 77.1 % LAB HEMETOLOGY METHOD 01/18/2025 7:10 AM [facility] Lymphocytes Relative 8.3 % LAB HEMETOLOGY METHOD 01/18/2025 7:10 AM [facility] Monocytes Relative 13.5 % LAB HEMETOLOGY METHOD 01/18/2025 7:10 AM [facility] Eosinophils Relative 0.0 % LAB HEMETOLOGY METHOD 01/18/2025 7:10 AM [facility] Basophils Relative 0.0 % LAB HEMETOLOGY METHOD 01/18/2025 7:10 AM [facility] Immature Granulocytes Relative 1.1 % LAB HEMETOLOGY METHOD 01/18/2025 7:10 AM [facility] Neutrophils Absolute 7.61(H) 1.50 - 7.00 K/mcL LAB HEMETOLOGY METHOD 01/18/2025 7:10 AM [facility] Lymphocytes Absolute 0.82(L) 1.00 - 5.00 K/mcL LAB HEMETOLOGY METHOD 01/18/2025 7:10 AM [facility] Monocytes Absolute 1.33(H) 0.20 - 1.00 K/mcL LAB HEMETOLOGY METHOD 01/18/2025 7:10 AM [facility] Eosinophils Absolute 0.00 0.00 - 0.50 K/mcL LAB HEMETOLOGY METHOD 01/18/2025 7:10 AM [facility] Basophils Absolute 0.00 0.00 - 0.20 K/mcL LAB HEMETOLOGY METHOD 01/18/2025 7:10 AM [facility] Immature Granulocytes Absolute 0.11(H) 0.00 - 0.03 K/mcL LAB HEMETOLOGY METHOD 01/18/2025 7:10 AM EDT [facility] Blood Venous blood specimen / Unknown Venipuncture / Unknown 01/18/2025 5:06 AM EDT 01/18/2025 6:20 AM EDT us Yulia Smart MD LAB BLOOD ORDERABLES Final Resu lt Performing Organization Address City/[facility]/ZIP Co de Phone Number [facility] [address] [place] [address], [place] [phone] * Ammonia (01/18/2025 5:06 AM EDT) Ammonia 28 11 - 35 mcmol/L LAB CHEMISTRY METHOD 01/18/2025 6:53 AM EDT [facility] Blood Venous blood specimen / Unknown Venipuncture / Unknown 01/18/2025 5:06 AM EDT 01/18/2025 6:20 AM EDT us Yulia Smart MD LAB BLOOD ORDERABLES Final Resu lt Performing Organization Address [facility] Co de Phone Number [facility] [address] [place] [address], [place] [phone] * Thyroid stimulating hormone (01/18/2025 5:06 AM EDT) TSH 1.94 0.40 - 4.00 mcIU/mL LAB CHEMISTRY METHOD 01/18/2025 9:08 AM EDT [facility] Blood Venous blood specimen / Unknown Venipuncture / Unknown 01/18/2025 5:06 AM EDT 01/18/2025 6:20 AM EDT us Yulia Smart MD LAB BLOOD ORDERABLES Final Resu lt Performing Organization Address City/[facility]/ZIP Co de Phone Number [facility] [address] [place] [address], [place] [phone] * (ABNORMAL) Vitamin B12 (01/18/2025 5:06 AM EDT) [facility] Vitamin B-12 1,241(H) 250 - 900 pcg/mL LAB CHEMISTRY METHOD 01/18/2025 7:36 AM EDT [facility] Blood Venous blood specimen / Unknown Venipuncture / Unknown 01/18/2025 5:06 AM EDT 01/18/2025 6:20 AM EDT us Yulai Smart MD LAB BLOOD ORDERABLES Final Resu lt [facility] [address] [place] [address], [place] [phone] * (ABNORMAL) Comprehensive metabolic panel (01/18/2025 5:06 AM EDT) [facility] Sodium 123(L) 133 - 145 mmol/L LAB CHEMISTRY METHOD 01/18/2025 7:56 AM [facility] Potassium 5.2 3.5 - 5.5 mmol/L LAB CHEMISTRY METHOD 01/18/2025 7:56 AM [facility] Chloride 89(L) 96 - 110 mmol/L LAB CHEMISTRY METHOD 01/18/2025 7:56 AM [facility] CO2 21 21 - 32 mmol/L LAB CHEMISTRY METHOD 01/18/2025 7:56 AM [facility] Anion Gap 13(H) 3 - 11 LAB CHEMISTRY METHOD 01/18/2025 7:56 AM [facility] Glucose 174(H) 70 - 100 mg/dL LAB CHEMISTRY METHOD 01/18/2025 7:56 AM [facility] BUN 96(H) 5 - 25 mg/dL LAB CHEMISTRY METHOD 01/18/2025 7:56 AM [facility] Creatinine 9.44(H) 0.70 - 1.30 mg/dL LAB CHEMISTRY METHOD 01/18/2025 7:56 AM [facility] eGFR 5(L) >=60 mL/min/1. 73m2 LAB CHEMISTRY METHOD 01/18/2025 7:56 AM [facility] Comment:Calculation based on the??Chronic Kidney Disease Epidemiology Collaboration (CKD-EPI) equation refit??without adjustment for race. BUN/Creatinine Ratio 10.2 LAB CHEMISTRY METHOD 01/18/2025 7:56 AM [facility] Calcium 7.8(L) 8.5 - 10.5 mg/dL LAB CHEMISTRY METHOD 01/18/2025 7:56 AM [facility] AST (SGOT) 13 10 - 42 unit/L LAB CHEMISTRY METHOD 01/18/2025 7:56 AM [facility] Comment:Results verified by repeat testing ALT (SGPT) 21 10 - 60 unit/L LAB CHEMISTRY METHOD 01/18/2025 7:56 AM [facility] Alkaline Phosphatase 52 42 - 121 unit/L LAB CHEMISTRY METHOD 01/18/2025 7:56 AM [facility] Total Protein 5.3(L) 6.0 - 8.0 g/dL LAB CHEMISTRY METHOD 01/18/2025 7:56 AM [facility] Albumin 2.6(L) 3.2 - 5.0 g/dL LAB CHEMISTRY METHOD 01/18/2025 7:56 AM [facility] Total Bilirubin 1.0 0.0 - 1.4 mg/dL LAB CHEMISTRY METHOD 01/18/2025 7:56 AM [facility] Comment:Results verified by repeat testing Blood Venous blood specimen / Unknown Venipuncture / Unknown 01/18/2025 5:06 AM EDT 01/18/2025 6:20 AM EDT us Rami A Ashkar MD LAB BLOOD ORDERABLES Final Resu lt [facility] [address] [place] [address], documented in this encounter Visit Diagnoses Diagnosis Encounter for other general examination documented in this encounter Care Teams Cna Gna Relationship Specialty Start Date End Date Yulia Smart MD [address] [place] [address] PCP - General Hospitalist Medicine 01/13/25 documented as of this encounter
--- OUTSIDE RECORDS SUMMARY | 2025-02-10 05:32 | XMS_ITS | Encounter Summary ---
Author Organization [facility], Address [address] [place] [address] Phone Care Team Providers Care Animal Care Technician Name Role Phone Matias Tan MD Primary Care Provider +1- [phone] Reason for Visit * Reason Comments Med Refill Encounter Details Date Type Department Care Team (Late st Contact Info) Description 09/25/2023 Refill [facility] [place] [address] [place] [address] Denys Mueller MD [address] [place] [address] Social History Tobacco Use Types [...] visit [facility] - [facility] [address] [place] [phone] documented as of this encounter Visit Diagnoses Not on filedocumented in this encounter Care Teams Animal Care Technician Relationship Specialty Start Date End Date Matias Tan MD [address] [place] [address] PCP - General Family Medicine 10/24/19 documented as of this encounter
--- OUTSIDE RECORDS SUMMARY | 2025-02-10 05:32 | XMS_ITS | Encounter Summary ---
Author Organization [facility], Address [address] [place] [address] Phone Care Team Providers Care Bait Maker Name Role Phone Matias Tan MD Primary Care Provider +1- [phone] Reason for Visit * Reason Comments Med Refill Encounter Details Date Type Department Care Team (Late st Contact Info) Description 01/26/2023 Refill [facility] [address] [place] [address] Denys Mueller MD [address] [place] [address] Social History Tobacco Use Types [...] visit [facility] - [facility] [address] [place] [phone] documented as of this encounter Visit Diagnoses Not on filedocumented in this encounter Care Teams Bait Maker Relationship Specialty Start Date End Date Matias Tan MD [address] [place] [address] PCP - General Family Medicine 10/24/19 documented as of this encounter
--- OUTSIDE RECORDS SUMMARY | 2025-02-10 05:32 | XMS_ITS | Encounter Summary ---
Author Organization [facility], Address [address] [place] [address] Phone Care Team Providers Care Shipping Processor Name Role Phone Matias Tan MD Primary Care Provider +1- [phone] Reason for Visit * Reason Comments Med Refill Encounter Details Date Type Department Care Team (Late st Contact Info) Description 01/26/2023 Refill [facility] [address] [place] [address] Gabriela Hernandez PA Social History Tobacco [...] visit [facility] [place] - Vascular Access Center [address] [place] [address] documented as of this encounter Visit Diagnoses Not on filedocumented in this encounter Care Teams Shipping Processor Relationship Specialty Start Date End Date Matias Tan MD [facility] [address] [place] [address] PCP - General Family Medicine 10/24/19 documented as of this encounter
--- OUTSIDE RECORDS SUMMARY | 2025-02-10 05:32 | XMS_ITS | Encounter Summary ---
Author Organization [facility] [place], Address [address] [place] [address] Phone Care Team Providers Care Customer Sales Distributor Name Role Phone Matias Tan MD Primary Care Provider +1- [phone] Reason for Visit * Reason Onset Date Comments Med Refill 06/20/2022 Encounter Details Date Type Department Care Team (Late st Contact Info) Description 06/20/2022 Refill [facility], [address] [place] [phone] Guanako Mercer MD [address] [place] [phone] Social History Tobacco Use Types Packs/Day Years [...] visit [facility] [place] - [facility] [address] [place] [address] documented as of this encounter Visit Diagnoses Not on filedocumented in this encounter Care Teams Customer Sales Distributor Relationship Specialty Start Date End Date Matias Tan MD [address] [facility] [place] [address] PCP - General Family Medicine 10/24/19 documented as of this encounter
--- OUTSIDE RECORDS SUMMARY | 2025-02-10 05:33 | XMS_ITS | Encounter Summary ---
Author Organization [facility], Address [address] [place] [address] Phone Care Team Providers Care Occ Therapist Name Role Phone Matias Tan MD Primary Care Provider +1- [phone] Reason for Visit * Reason Comments Med Refill Encounter Details Date Type Department Care Team (Late st Contact Info) Description 11/28/2022 Refill [facility] [place] [address] [place] [address] Guanako Mercer MD [address] [place] [address] Social History Tobacco Use Types [...] visit [facility] [place] - [facility] [address] [place] [address] documented as of this encounter Visit Diagnoses Not on filedocumented in this encounter Care Teams Occ Therapist Relationship Specialty Start Date End Date Matias Tan MD [address] [facility] [place] [address] PCP - General Family Medicine 10/24/19 documented as of this encounter
--- OUTSIDE RECORDS SUMMARY | 2025-02-10 05:33 | XMS_ITS | Encounter Summary ---
Author Organization [facility], Address [address] [place] [address] Phone Care Team Providers Care Glass Vial Filler Name Role Phone Matias Tan MD Primary Care Provider +1- [phone] Reason for Visit * Reason Comments Med Refill Encounter Details Date Type Department Care Team (Late st Contact Info) Description 05/08/2024 Refill [facility] [address] [place] [address] Gabriela Hernandez PA Social History Tobacco [...] visit [facility] [place], - Vascular Access Center [address] [place] [address] documented as of this encounter Visit Diagnoses Not on filedocumented in this encounter Care Teams Glass Vial Filler Relationship Specialty Start Date End Date Matias Tan MD [facility] [address] [place] [address] PCP - General Family Medicine 10/24/19 documented as of this encounter
--- OUTSIDE RECORDS SUMMARY | 2025-02-10 05:33 | XMS_ITS | Encounter Summary ---
Author Organization [facility] [place], Address [address] [place] [address] Phone Care Team Providers Care Beer Coil Cleaner Name Role Phone Matias Tan MD Primary Care Provider +1- [phone] Reason for Visit * Reason Comments Med Refill Encounter Details Date Type Department Care Team (Late st Contact Info) Description 07/17/2022 Refill [facility] - Vascular Access Center [address] [place] [phone] Guanako Mercer MD [address] [place] [address] Social History Tobacco Use Types Packs/Day Years [...] visit [facility] [place] - [facility] Center [address] [place] [phone] documented as of this encounter Visit Diagnoses Not on filedocumented in this encounter Care Teams Beer Coil Cleaner Relationship Specialty Start Date End Date Matias Tan MD [address] [place] [address] PCP - General Family Medicine 10/24/19 documented as of this encounter
--- OUTSIDE RECORDS SUMMARY | 2025-02-10 05:33 | XMS_ITS | Encounter Summary ---
Author Organization [facility] [place], Address [address] [place] [address] Phone Care Team Providers Care Homicide Detective Name Role Phone Matias Tan MD Primary Care Provider +1- [phone] Encounter Details Date Type Department Care Team (Late st Contact Info) Description 02/02/2024 Documentation Only [facility] [place], [address] [place] [phone] Alexandria Yusuf [address] [place] [address] Social History Tobacco Use Types [...] visit [facility] [place] - [facility] Center [address] [place] [address] documented as of this encounter Visit Diagnoses Not on filedocumented in this encounter Care Teams Homicide Detective Relationship Specialty Start Date End Date Matias Tan MD [address] [place] [address] PCP - General Family Medicine 10/24/19 documented as of this encounter
--- OUTSIDE RECORDS SUMMARY | 2025-02-10 05:33 | XMS_ITS | Encounter Summary ---
Author Organization [facility] [place], Address [address] [place] [address] Phone Care Team Providers Care Tank Charger Name Role Phone Matias Tan MD Primary Care Provider +1- [phone] Encounter Details Date Type Department Care Team (Late st Contact Info) Description 03/11/2023 Documentation Only [facility] [address] [place] [address] Jose Luis Amezcua MD Social History Tobacco [...] visit [facility] Vascular Access Center [address] [place] [address] documented as of this encounter Visit Diagnoses Not on filedocumented in this encounter Care Teams Tank Charger Relationship Specialty Start Date End Date Matias Tan MD [address] [place] [address] PCP - General Family Medicine 10/24/19 documented as of this encounter
--- OUTSIDE RECORDS SUMMARY | 2025-02-10 05:33 | XMS_ITS | Encounter Summary ---
Author Organization [facility] [place], Address [address] [place] [address] Phone Care Team Providers Care Nuclear Technician Name Role Phone Matias Tan MD Primary Care Provider +1- [phone] Reason for Visit * Reason Onset Date Comments Med Refill 12/23/2022 Encounter Details Date Type Department Care Team (Late st Contact Info) Description 12/23/2022 Refill [facility] - Vascular Access Center [address] [place] [address] Ferdinand [place] MD [address] [place] [address] Social History Tobacco Use Types Packs/Day Years [...] visit [facility] [place] - [facility] Access Center [address] [place] [address] [place] [address] documented as of this encounter Visit Diagnoses Not on filedocumented in this encounter Care Teams Nuclear Technician Relationship Specialty Start Date End Date Matias Tan MD [address] [facility] [place] [address] PCP - General Family Medicine 10/24/19 documented as of this encounter
--- OUTSIDE RECORDS SUMMARY | 2025-02-10 05:33 | XMS_ITS | Encounter Summary ---
Author Organization [facility] [place], Address [address] [place] [address] Phone Care Team Providers Care Storeroom Attendant Name Role Phone Matias Tan MD Primary Care Provider +1- [phone] Reason for Visit * Reason Onset Date Comments Med Refill 09/24/2022 Encounter Details Date Type Department Care Team (Late st Contact Info) Description 09/24/2022 Refill [facility] - Vascular Access Center [address] [place] [address] Ferdinand [place] MD [address] [place] [phone] Social History Tobacco Use Types Packs/Day Years [...] visit [facility] [place] - Vascular Access Center [address] [place] [address] [place] [phone] documented as of this encounter Visit Diagnoses Not on filedocumented in this encounter Care Teams Storeroom Attendant Relationship Specialty Start Date End Date Matias Tan MD [address] [facility] [place] [address] PCP - General Family Medicine 10/24/19 documented as of this encounter
--- OUTSIDE RECORDS SUMMARY | 2025-02-10 05:33 | XMS_ITS | Encounter Summary ---
Author Organization [facility] [place], Address [address] [place] [address] Phone Care Team Providers Care Backpackers Manager Name Role Phone Matias Tan MD Primary Care Provider +1- [phone] Reason for Visit * Reason Onset Date Comments Med Refill 12/20/2022 Encounter Details Date Type Department Care Team (Late st Contact Info) Description 12/20/2022 Refill [facility] - Vascular Access Center [address] [place] [address] Kb Sung MD Social History Tobacco Use [...] visit [facility] [place] - [facility] Center [address] [place] [address] documented as of this encounter Visit Diagnoses Not on filedocumented in this encounter Care Teams Backpackers Manager Relationship Specialty Start Date End Date Matias Tan MD [facility] [address] [facility] [place] [address] PCP - General Family Medicine 10/24/19 documented as of this encounter
--- OUTSIDE RECORDS SUMMARY | 2025-02-10 05:33 | XMS_ITS | Encounter Summary ---
Author Organization [facility] [place], Address [address] [place] [address] Phone Care Team Providers Care Sterile Instrument Technician Name Role Phone Matias Tan MD Primary Care Provider +1- [phone] Reason for Visit * Reason Onset Date Comments Med Refill 07/19/2022 Encounter Details Date Type Department Care Team (Late st Contact Info) Description 07/19/2022 Refill [facility] - Vascular Access Center [address] [place] [address] Guanako Mercer MD [address] [place] [address] Social History Tobacco Use Types Packs/Day Years [...] visit [facility] [place] - [facility] Access Center [address] [place] [address] documented as of this encounter Visit Diagnoses Not on filedocumented in this encounter Care Teams Sterile Instrument Technician Relationship Specialty Start Date End Date Matias Tan MD [facility] [address] [facility] [place] [address] PCP - General Family Medicine 10/24/19 documented as of this encounter
--- OUTSIDE RECORDS SUMMARY | 2025-02-10 05:33 | XMS_ITS | Encounter Summary ---
Author Organization [facility], Address [address] [place] [address] Phone Care Team Providers Care Remote Computer Terminal Operator Name Role Phone Matias Tan MD Primary Care Provider +1- [phone] Encounter Details Date Type Department Care Team (Late st Contact Info) Description 02/03/2025 Orders Only [facility] [address] [place] [phone] Denys Mueller MD [address] [place] [address] Social History Tobacco Use Types [...] Procedure visit [facility] [place] - [facility] [address] [place] [address] documented as of this encounter Procedures Procedure Name Priority Date/Time Associated Diagnosis Comments HD KINETICS Routine 02/03/2025 POST CHEMISTRY Routine 02/03/2025 IMMUNO CHEMISTRY Routine 02/03/2025 HEMATOLOGY Routine 02/03/2025 CHEMISTRY Routine 02/03/2025 CHEMISTRY Routine 02/03/2025 [email or web address] LAB RESULTS Routine 02/03/2025 documented in this encounter Results * [facility] Lab Results (02/03/2025) [facility] eKt/V (Tattersall) 1.59 [facility] WSTDKT/V 0.8 [facility] spKt/V (Daugirdas II) 1.82 [facility] 02/03/2025 02/03/2025 [facility] Ordering Provider LAB BLOOD ORDERABLES Final Result [facility] Contact Performing lab Unknown, [place] * (ABNORMAL) HEMATOLOGY (02/03/2025) [facility] Hemoglobin 8.0(L) 14.0 - 18.0 g/dL [facility] Comment: Verified by repeat analysis. Hemoglobin x 3 24(L) 42.0 - 54.0 % [facility] 02/03/2025 02/07/2025 9:4 8 AM EDT Narrative [facility] - 02/07/2025 Unless otherwise specified, test(s) performed at: [facility], [address] [place], [place] [id number] COMPUTER GAME TESTER: Blane Ramsay M.D. For any questions, please call customer service at FREQUENCY:MONTHLY Resulting Agency Comment Specimen source: Blood Denys Mueller MD LAB BLOOD ORDERABLES Final Re sult Performing Organization Address [facility] de Phone Number [facility] See order comments or contact performing lab Unknown, [place] * HD KINETICS (02/03/2025) % Urea Reduction 77 65 - 80 % [facility] 02/03/2025 02/07/2025 8:5 8 AM EDT Narrative Resulting Agency Comment Specimen source: Plasma Denys Mueller MD LAB BLOOD ORDERABLES Final Re sult Performing Organization Address [facility] de Phone Number [facility] See order comments or contact performing lab Unknown, [place] * POST CHEMISTRY (02/03/2025) BUN Post Dialysis 8 6 - 19 mg/dL [facility] 02/03/2025 02/07/2025 8:5 8 AM EDT Narrative [facility] - 02/07/2025 Unless otherwise specified, test(s) performed at: [facility], [address] [place] [address] COMPUTER GAME TESTER: Blane Ramsay M.D. For any questions, please call customer service at FREQUENCY:MONTHLY Resulting Agency Comment Specimen source: Plasma Denys Mueller MD LAB BLOOD ORDERABLES Final Re sult Performing Organization Address [facility] de Phone Number [facility] See order comments or contact performing lab Unknown, [place] * (ABNORMAL) [facility] (02/03/2025) BUN 35(H) 6 - 19 mg/dL [facility] Creatinine 10.93(H) 0.60 - 1.30 mg/dL [facility] BUN/Creatinine Ratio 3.2(L) 10.0 - 20.0 [facility] Sodium 128(L) 136 - 145 mEq/L [facility] Potassium 5.1 3.5 - 5.1 mEq/L [facility] Chloride 90(L) 96 - 108 mEq/L [facility] Bicarbonate (CO2) 23 22 - 29 mEq/L [facility] Calcium 8.2(L) 8.4 - 10.2 mg/dL [facility] Corrected Calcium 8.7 8.4 - 10.2 mg/dL [facility] Comment: Corrected Calcium is not equivalent to measured Ionized Calcium. Phosphorus 3.6 2.6 - 4.5 mg/dL [facility] Calcium Phosphorus Product 30 0 - 54 [facility] Calcium Phosporus Product, Cor 31 0 - 54 [facility] Alkaline Phosphatase 65 40 - 129 U/L [facility] ALT (SGPT) 10 7 - 52 U/L [facility] Albumin 3.4(L) 3.5 - 5.2 g/dL [facility] Magnesium 2.0 1.6 - 2.6 mg/dL [facility] Ferritin 1,453(H) 22 - 322 ng/mL [facility] Comment: Verified by repeat analysis. Iron 100 45 - 160 mcg/dL [facility] UIBC 101(L) 155 - 355 mcg/dL [facility] TIBC 201 185 - 515 mcg/dL [facility] Iron Saturation (TSat) 50 20 - 55 % [facility] 02/03/2025 02/07/2025 8:4 7 AM EDT Narrative [facility] - 02/07/2025 Unless otherwise specified, test(s) performed at: [facility], [address] [place], [place] [id number] COMPUTER GAME TESTER: Blane Ramsay M.D. For any questions, please call customer service at FREQUENCY:MONTHLY Resulting Agency Comment Specimen source: Serum Denys Mueller MD LAB BLOOD ORDERABLES Final Re sult [email or web address] See order comments or contact performing lab Unknown, [place] * (ABNORMAL) [facility] (02/03/2025) PTH 275(H) 16 - 80 pg/mL [facility] 02/03/2025 02/07/2025 8:5 8 AM EDT Narrative [facility] - 02/07/2025 Unless otherwise specified, test(s) performed at: [facility], [address] [place] [id number] COMPUTER GAME TESTER: Blane Ramsay M.D. For any questions, please call customer service at FREQUENCY:MONTHLY Resulting Agency Comment Specimen source: Plasma Denys Mueller MD LAB BLOOD ORDERABLES Final Re sult Performing Organization Address [facility] Co de Phone Number [facility] See order comments or contact performing lab Unknown, [place] * IMMUNO CHEMISTRY (02/03/2025) Hep B Surface Ag Negative Negative [facility] 02/03/2025 02/07/2025 8:4 7 AM EDT Narrative [facility] - 02/07/2025 Unless otherwise specified, test(s) performed at: [facility] [address] COMPUTER GAME TESTER: Blane Ramsay M.D. For any questions, please call customer service at FREQUENCY:MONTHLY Resulting Agency Comment Specimen source: Serum Denys Mueller MD LAB BLOOD ORDERABLES Final Re sult Performing Organization Address [facility] de Phone Number [email or web address] See order comments or contact performing lab Unknown, [place] documented in this encounter Visit Diagnoses Not on filedocumented in this encounter Care Teams Remote Computer Terminal Operator Relationship Specialty Start Date End Date Matias Tan MD [facility] [address] [place] [address] PCP - General Family Medicine 10/24/19 documented as of this encounter
--- OUTSIDE RECORDS SUMMARY | 2025-02-10 05:33 | XMS_ITS | Encounter Summary ---
Author Organization [facility] [place], Address [address] [place] [address] Phone Care Team Providers Care Road Marker Name Role Phone Matias Tan MD Primary Care Provider +1- [phone] Reason for Visit * Reason Onset Date Comments Med Refill 07/01/2024 Encounter Details Date Type Department Care Team (Late Contact Info) Description 07/01/2024 Refill [facility], - Vascular Access Center [address] [place] [phone] Dale Lema MD [address] [place] [phone] Social History Tobacco Use Types Packs/Day Years [...] visit [facility] [place] - [facility] Center [address] [place] [phone] documented as of this encounter Visit Diagnoses Not on filedocumented in this encounter Care Teams Road Marker Relationship Specialty Start Date End Date Matias Tan MD [address] [facility] [place] [phone] PCP - General Family Medicine 10/24/19 documented as of this encounter
--- OUTSIDE RECORDS SUMMARY | 2025-02-10 05:33 | XMS_ITS | Encounter Summary ---
Author Organization [facility] Address [address] [place] [address] Care Team Providers Care Antisqueak Filler Name Role Phone Yulia Smart MD Primary Care Provider Encounter Details Date Type Department Care Team (Late st Contact Info) Description 01/13/2025 Lab Requisition [facility] - Main Lab [address] [facility] [place] [address] Yulia Smart MD [address] [place] [address] Encounter for other general examination Social History [...] K/mcL LAB HEMETOLOGY METHOD 01/13/2025 11:17 AM [facility] RBC 3.40(L) 4.50 - 5.50 M/mcL LAB HEMETOLOGY METHOD 01/13/2025 11:17 AM [facility] Hemoglobin 10.6(L) 13.5 - 17.5 g/dL LAB HEMETOLOGY METHOD 01/13/2025 11:17 AM [facility] Hematocrit 30.8(L) 42.0 - 54.0 % LAB HEMETOLOGY METHOD 01/13/2025 11:17 AM [facility] MCV 89.8 79.0 - 98.0 FL LAB HEMETOLOGY METHOD 01/13/2025 11:17 AM [facility] MCH 30.9 27.0 - 32.0 pcg LAB HEMETOLOGY METHOD 01/13/2025 11:17 AM [facility] MCHC 34.4 32.0 - 37.0 g/dL LAB HEMETOLOGY METHOD 01/13/2025 11:17 AM [facility] RDW 14.5 11.0 - 15.0 % LAB HEMETOLOGY METHOD 01/13/2025 11:17 AM [facility] Platelets 105(L) 130 - 400 K/mcL LAB HEMETOLOGY METHOD 01/13/2025 11:17 AM [facility] MPV 11.5(H) 7.0 - 11.0 FL LAB HEMETOLOGY METHOD 01/13/2025 11:17 AM [facility] NRBC 0.0 <1.0 % LAB HEMETOLOGY METHOD 01/13/2025 11:17 AM [facility] NRBC Absolute 0.00 <0.10 K/mcL LAB HEMETOLOGY METHOD 01/13/2025 11:17 AM [facility] Neutrophils Relative 49.1 % LAB HEMETOLOGY METHOD 01/13/2025 11:17 AM [facility] Lymphocytes Relative 31.3 % LAB HEMETOLOGY METHOD 01/13/2025 11:17 AM [facility] Monocytes Relative 13.0 % LAB HEMETOLOGY METHOD 01/13/2025 11:17 AM [facility] Eosinophils Relative 6.0 % LAB HEMETOLOGY METHOD 01/13/2025 11:17 AM [facility] Basophils Relative 0.4 % LAB HEMETOLOGY METHOD 01/13/2025 11:17 AM [facility] Immature Granulocytes Relative 0.2 % LAB HEMETOLOGY METHOD 01/13/2025 11:17 AM [facility] Neutrophils Absolute 2.38 1.50 - 7.00 K/mcL LAB HEMETOLOGY METHOD 01/13/2025 11:17 AM [facility] Lymphocytes Absolute 1.52 1.00 - 5.00 K/mcL LAB HEMETOLOGY METHOD 01/13/2025 11:17 AM [facility] Monocytes Absolute 0.63 0.20 - 1.00 K/mcL LAB HEMETOLOGY METHOD 01/13/2025 11:17 AM [facility] Eosinophils Absolute 0.29 0.00 - 0.50 K/mcL LAB HEMETOLOGY METHOD 01/13/2025 11:17 AM [facility] Basophils Absolute 0.02 0.00 - 0.20 K/mcL LAB HEMETOLOGY METHOD 01/13/2025 11:17 AM [facility] Immature Granulocytes Absolute 0.01 0.00 - 0.03 K/mcL LAB HEMETOLOGY METHOD 01/13/2025 11:17 AM [facility] Blood Venous blood specimen / Unknown Venipuncture / Unknown 01/13/2025 5:26 AM EDT 01/13/2025 10:00 AM EDT us Yulia Smart MD LAB BLOOD ORDERABLES Final Resu lt Performing Organization Address City/[facility]/ZIP Co de Phone Number [facility] [address] [place] [address], [place] [phone] * (ABNORMAL) Magnesium (01/13/2025 5:26 AM EDT) Magnesium 1.8(L) 1.9 - 2.6 mg/dL LAB CHEMISTRY METHOD 01/13/2025 12:11 PM EDT [facility] Blood Venous blood specimen / Unknown Venipuncture / Unknown 01/13/2025 5:26 AM EDT 01/13/2025 10:00 AM EDT us Yulia Smart MD LAB BLOOD ORDERABLES Final Resu lt Performing Organization Address [facility]/ZIP Vt de Phone Number [facility] [address] [place] [address], [place] [phone] * Hemoglobin A1c (01/13/2025 5:26 AM EDT) Hemoglobin A1C 5.6 <6.5 % LAB CHEMISTRY METHOD 01/13/2025 12:43 PM EDT [facility] Mean Bld Glu Estim. 114 mg/dL LAB CHEMISTRY METHOD 01/13/2025 12:43 PM EDT [facility] Blood Venous blood specimen / Unknown Venipuncture / Unknown 01/13/2025 5:26 AM EDT 01/13/2025 10:00 AM EDT us Yulia Smart MD LAB BLOOD ORDERABLES Final Resu lt Performing Organization Address City/[facility]/ZIP Co de Phone Number [facility] [address] [place] [address], [place] [phone] * (ABNORMAL) Comprehensive metabolic panel (01/13/2025 5:26 AM EDT) Sodium 129(L) 133 - 145 mmol/L LAB CHEMISTRY METHOD 01/13/2025 12:12 PM [facility] Potassium 3.6 3.5 - 5.5 mmol/L LAB CHEMISTRY METHOD 01/13/2025 12:12 PM [facility] Chloride 85(L) 96 - 110 mmol/L LAB CHEMISTRY METHOD 01/13/2025 12:12 PM [facility] CO2 28 21 - 32 mmol/L LAB CHEMISTRY METHOD 01/13/2025 12:12 PM [facility] Anion Gap 16(H) 3 - 11 LAB CHEMISTRY METHOD 01/13/2025 12:12 PM [facility] Glucose 90 70 - 100 mg/dL LAB CHEMISTRY METHOD 01/13/2025 12:12 PM [facility] BUN 77(H) 5 - 25 mg/dL LAB CHEMISTRY METHOD 01/13/2025 12:12 PM [facility] Creatinine 10.50(H) 0.70 - 1.30 mg/dL LAB CHEMISTRY METHOD 01/13/2025 12:12 PM [facility] eGFR 5(L) >=60 mL/min/1 .73m2 LAB CHEMISTRY METHOD 01/13/2025 12:12 PM [facility] Comment:Calculation based on the??Chronic Kidney Disease Epidemiology Collaboration (CKD-EPI) equation refit??without adjustment for race. BUN/Creatinine Ratio 7.3 LAB CHEMISTRY METHOD 01/13/2025 12:12 PM [facility] Calcium 7.2(L) 8.5 - 10.5 mg/dL LAB CHEMISTRY METHOD 01/13/2025 12:12 PM [facility] AST (SGOT) 76(H) 10 - 42 unit/L LAB CHEMISTRY METHOD 01/13/2025 12:12 PM EDT [facility] ALT (SGPT) 36 10 - 60 unit/L LAB CHEMISTRY METHOD 01/13/2025 12:12 PM EDT [facility] Alkaline Phosphatase 65 42 - 121 unit/L LAB CHEMISTRY METHOD 01/13/2025 12:12 PM EDT [facility] Total Protein 5.9(L) 6.0 - 8.0 g/dL LAB CHEMISTRY METHOD 01/13/2025 12:12 PM EDT [facility] Albumin 2.9(L) 3.2 - 5.0 g/dL LAB CHEMISTRY METHOD 01/13/2025 12:12 PM [facility] Total Bilirubin 0.4 0.0 - 1.4 mg/dL LAB CHEMISTRY METHOD 01/13/2025 12:12 PM EDT [facility] Blood Venous blood specimen / Unknown Venipuncture / Unknown 01/13/2025 5:26 AM EDT 01/13/2025 10:00 AM EDT us Yulia Smart MD LAB BLOOD ORDERABLES Final Resu lt [facility] [address] [place] [address], [place] [phone] documented in this encounter Visit Diagnoses Diagnosis Encounter for other general examination documented in this encounter Care Teams Antisqueak Filler Relationship Specialty Start Date End Date Yulia Smart MD [address] [place] [phone] PCP - General Hospitalist Medicine 01/13/25 documented as of this encounter
--- OUTSIDE RECORDS SUMMARY | 2025-02-10 05:33 | XMS_ITS | Encounter Summary ---
Author Organization [facility] [place], Address [address] [place] [address] Phone Care Team Providers Care Inside Horticultural Specialty Grower Name Role Phone Matias Tan MD Primary Care Provider +1- [phone] Reason for Visit * Reason Onset Date Comments Med Refill 12/20/2022 Encounter Details Date Type Department Care Team (Late st Contact Info) Description 12/20/2022 Refill [facility] - Vascular Access Center [address] [place] [address] Kb Sung MD Social History Tobacco Use [...] visit [facility] [place] - [facility] [address] [place] [address] documented as of this encounter Visit Diagnoses Not on filedocumented in this encounter Care Teams Inside Horticultural Specialty Grower Relationship Specialty Start Date End Date Matias Tan MD [facility] [address] [facility] [place] [address] PCP - General Family Medicine 10/24/19 documented as of this encounter
--- OUTSIDE RECORDS SUMMARY | 2025-02-10 05:33 | XMS_ITS | Clinical Summary ---
Author Organization [facility], Address [address] [place] [address] Phone Care Team Providers Care Solution Lead Name Role Phone Matias Tan MD Primary Care Provider +1- [phone] Allergies Active Allergy Reactions Criticality Noted Date [...] HOURS NEEDED FOR PAIN 2 Active B Wxeuqlm-I-Ofyjh Acid (Dialyvite 800) 0.8 MG tablet Take [...] Encounters Date Type Department Care Team Description 02/03/2025 Orders Only [facility] [address] [address] Denys Mueller MD 01/31/2025 Treatment [facility] [place] [address] [place] [address] Guanako Mercer MD End stage renal disease; Dependence on renal dialysis 01/04/2025 Orders Only [facility] [address] [address] Denys Mueller MD 01/02/2025 Orders Only [facility] [address] [address] Denys Mueller MD 01/02/2025 Treatment [facility] [place] [address] [place] [address] Tiffani Olson FNP-C End stage renal disease; Dependence on renal dialysis 12/28/2024 Treatment [facility] [address] [place] [address] Tiffani Olson FNP-C End stage renal disease; Dependence on renal dialysis 12/28/2024 Refill [facility] [address] [address] Sawyer Davis MD 12/26/2024 Orders Only [facility] [address] [address] Denys Mueller MD 12/23/2024 Treatment [facility] [place] [address] [place] [address] Tiffani Olson FNP-C End stage renal disease; Dependence on renal dialysis 12/21/2024 Orders Only [facility] [address] [address] Denys Mueller MD 12/19/2024 Orders Only [facility] [address] [place] [address] Denys Mueller MD 12/16/2024 Treatment [facility] [place] [address] [place] [address] Sawyer Davis MD End stage renal disease; Dependence on renal dialysis 12/14/2024 Orders Only [facility] [address] [address] Denys Mueller MD 12/14/2024 Treatment [facility] [place] [address] [place] [address] Tiffani Olson FNP-C 12/13/2024 Treatment [facility] [place] [address] [place] [address] Missy Izquierdo APRN 12/12/2024 Orders Only [facility] [address] [address] Denys Mueller MD 12/07/2024 Orders Only [facility] [address] [address] Denys Mueller MD 12/07/2024 Treatment [facility] [place] [address] [place] [address] Tiffani Olosn FNP-C 11/30/2024 Orders Only [facility] [address] [address] Denys Mueller MD 11/23/2024 Orders Only [facility] [address] [address] Denys Mueller MD 11/23/2024 Treatment [facility] [place] [address] [place] [address] Tiffani Olson FNP-C 11/16/2024 Treatment [facility] [address] [place] [address] Tiffani Olson FNP-C 11/16/2024 Telephone [facility] [address] [place] [address] [place] [address] Tanya Chi post op call 11/15/2024 9:00 AM EST Procedure visit [facility] Vascular Access [address] [place] [address] Ferdinand Monroe MD End stage renal disease (HCC) (Primary Dx); Stenosis of other vascular prosthetic devices, implants and grafts, initial encounter (HCC) 11/14/2024 Telephone [facility] V[facility] Access [address] [place] [address] Kristen Koo from Last 3 Months Immunizations Immunization Administration [...] visit [facility] [place], - V[facility] Access Center [address] [place] [address] [place] [address] Health Maintenance Due Date Last Done Comments Hepatitis B Vaccine (1 of 5 - Risk Dialysis 4-dose series) 1974 Colorectal Cancer Screening: Annual FOBT 2003 Colorectal Cancer Screening: Colonoscopy 2003 Colorectal Cancer Screening: Sigmoidoscopy 2003 Diabetes: Ophthalmology Exam 12/01/2019 Diabetes: Pedal Pulse Checked 12/01/2019 Diabetes: Sensory Foot Exam 12/01/2019 Diabetes: Visual Foot Exam 12/01/2019 Diabetes: Hemoglobin A1C 08/04/202405/04/ 024, 02/03/2024, 11/09/2023, Additional history exists Influenza Vaccine (Season Ended) 2025 08/05/2023, 09/09/2021, 08/22/2020, Additional history exists Pneumococcal Vaccine: 50+ Years Completed 09/09/2021, 09/21/2020, 08/21/2010 Pneumococcal Vaccine: Peds ( 0 to 5 Years) and At-Risk Patients (6 to 49 Years) Discontinued 09/09/2021, 09/21/2020, 08/21/2010 Procedures Procedure Name Priority Date/Time Associated Diagnosis Comments [facility] RESULTS Routine 02/03/2025 HEMATOLOGY Routine 02/03/2025 HD KINETICS Routine 02/03/2025 POST CHEMISTRY Routine 02/03/2025 CHEMISTRY Routine 02/03/2025 CHEMISTRY Routine 02/03/2025 IMMUNO CHEMISTRY Routine 02/03/2025 IMMUNO CHEMISTRY Routine 01/04/2025 CHEMISTRY Routine 01/04/2025 [...] 11/16/2024 CHEMISTRY Routine 11/16/2024 HEMATOLOGY Routine 11/16/2024 SPECIAL CHEMISTRY Routine 05/04/2024 from Last 3 Months or Most Recently Relevant to Health Maintenance Results * HD KINETICS (02/03/2025) Only the most recent of3 resultswithin the time period is included. % Urea Reduction 77 65 - 80 % [facility] 02/03/2025 02/07/2025 8:5 8 AM EDT Narrative Resulting Agency Comment Specimen source: Plasma us Denys Mueller MD LAB BLOOD ORDERABLES Final Re sult [facility] See order comments or contact performing lab Unknown, [place] * POST CHEMISTRY (02/03/2025) Only the most recent of3 resultswithin the time period is included. BUN Post Dialysis 8 6 - 19 mg/dL [facility] 02/03/2025 02/07/2025 8:5 8 AM EDT Narrative [facility] - 02/07/2025 Unless otherwise specified, test(s) performed at: [facility], [address] [place], [place] [id number] FURNACE MECHANIC HELPER: Blane Ramsay M.D. For any questions, please call customer service at FREQUENCY:MONTHLY Resulting Agency Comment Specimen source: Plasma Denys Mueller MD LAB BLOOD ORDERABLES Final Re sult Performing Organization Address [facility] de Phone Number [facility] See order comments or contact performing lab Unknown, [place] * IMMUNO CHEMISTRY (02/03/2025) Only the most recent of3 resultswithin the time period is included. [facility] Hep B Surface Ag Negative Negative [facility] 02/03/2025 02/07/2025 8:4 7 AM EDT Narrative [facility] - 02/07/2025 Unless otherwise specified, test(s) performed at: [facility] [employer], [address] [place] [address] FURNACE MECHANIC HELPER: Blane Ramsay M.D. For any questions, please call customer service at FREQUENCY:MONTHLY Resulting Agency Comment Specimen source: Serum Denys Mueller MD LAB BLOOD ORDERABLES Final Re sult Performing Organization Address [facility] de Phone Number [facility] See order comments or contact performing lab Unknown, [place] * (ABNORMAL) HEMATOLOGY (02/03/2025) Only the most recent of9 resultswithin the time period is included. [facility] Hemoglobin 8.0(L) 14.0 - 18.0 g/dL [facility] Comment: Verified by repeat analysis. Hemoglobin x 3 24(L) 42.0 - 54.0 % [facility] 02/03/2025 02/07/2025 9:4 8 AM EDT Narrative [facility] - 02/07/2025 Unless otherwise specified, test(s) performed at: [facility] [employer], [address] [place] [id number] FURNACE MECHANIC HELPER: Blane Ramsay M.D. For any questions, please call customer service at FREQUENCY:MONTHLY Resulting Agency Comment Specimen source: Blood us Denys Mueller MD LAB BLOOD ORDERABLES Final Re sult [facility] See order comments or contact performing lab Unknown, [place] * (ABNORMAL) [facility] (02/03/2025) Only the most recent of13 resultswithin the time period is included. BUN 35(H) 6 - 19 mg/dL [facility] [...] 02/07/2025 Unless otherwise specified, test(s) performed at: [facility] [employer], [address] [place] [id number] FURNACE MECHANIC HELPER: Blane Ramsay M.D. For any questions, please call customer service at FREQUENCY:MONTHLY Resulting Agency Comment Specimen source: Serum Denys Mueller MD LAB BLOOD ORDERABLES Final Re sult Performing Organization Address [facility] Co de Phone Number [facility] See order comments or contact performing lab Unknown, [place] * [facility] Lab Results (02/03/2025) Only the most recent of3 resultswithin the time period is included. Pathologist [facility] eKt/V ([place]) 1.59 [facility] WSTDKT/V 0.8 [facility] spKt/V (Daugirdas II) 1.82 [facility] 02/03/2025 02/03/2025 [facility] Ordering Provider LAB BLOOD ORDERABLES Final Result Performing Organization Address [facility] de Phone Number [facility] Contact Performing lab Unknown, [place] * SPECIAL CHEMISTRY (11/16/2024) Only the most recent of2 resultswithin the time period is included. Pathologist [facility] Vitamin D, 25-OH, Total 66.0 30.0 - 100.0 ng/mL [facility] Comment: Please Note:? Effective August 17, 2023, the methodology for this test has changed to the [facility]. 11/16/2024 11/18/2024 7:5 9 AM EST Narrative [facility] - 11/18/2024 Unless otherwise specified, test(s) performed at: [facility], [address] [place], [place] [id number] FURNACE MECHANIC HELPER: Blane Ramsay M.D. For any questions, please call customer service at FREQUENCY:OTHER Resulting Agency Comment Specimen source: Serum Denys Mueller MD LAB BLOOD BANK TEST ORDERABLE S Final Result Performing Organization Address [facility] Co de Phone Number [facility] See order comments or contact performing lab Unknown, [place] from Last 3 Months or Most Recently Relevant to Health Maintenance Insurance Medicare [facility] Medicare [facility] Care Teams Solution Lead Relationship Specialty Start Date End Date Matias Tan MD [address] [place] [address] PCP - General Family Medicine 10/24/19
--- OUTSIDE RECORDS SUMMARY | 2025-02-10 05:33 | XMS_ITS | Encounter Summary ---
Author Organization [facility] [place], Address [address] [place] [address] Phone Care Team Providers Care Animal Nursery Worker Name Role Phone Matias Tan MD Primary Care Provider +1- [phone] Reason for Visit * Reason Comments Med Refill Encounter Details Date Type Department Care Team (Late st Contact Info) Description 12/28/2024 Refill [facility] [address] [place] [address] Sawyer Davis MD [address] [facility] [place] [address] Social History Tobacco Use Types [...] visit [facility] [place] - V[facility] Access Center [address] [place] [address] documented as of this encounter Procedures Procedure Name Priority Date/Time Associated Diagnosis Comments HEMATOLOGY Routine 12/28/2024 documented in this encounter Results * (ABNORMAL) HEMATOLOGY (12/28/2024) Hemoglobin 11.5(L) 14.0 - 18.0 g/dL [facility] Hemoglobin x 3 34.5(L) 42.0 - 54.0 % [facility] 12/28/2024 12/29/2024 9:1 7 AM EDT Narrative [facility] - 12/29/2024 Unless otherwise specified, test(s) performed at: [facility], [address] [place] [address] NSH TEACHER: Blane Ramsay M.D. For any questions, please call customer service at FREQUENCY:OTHER Resulting Agency Comment Specimen source: Blood us Denys Mueller MD LAB BLOOD ORDERABLES Final Re sult [facility] See order comments or contact performing lab [facility], [place] documented in this encounter Visit Diagnoses Not on filedocumented in this encounter Care Teams Animal Nursery Worker Relationship Specialty Start Date End Date Matias Tan MD [facility] [address] [facility] [place] [address] PCP - General Family Medicine 10/24/19 documented as of this encounter
[2025-02-10 05:53] LABS: Basophils Absolute Auto 0.1 X10*3/uL (0.0-0.2); Basophils Percent Auto 0.6 % (0-2); Eosinophils Absolute Auto 0.7 X10*3/uL (0.0-0.4); Eosinophils Percent Auto 6.4 % (0-4); Hematocrit 26.8 % (42.0-52.0); Hemoglobin 9.2 g/dl (14.0-18.0); Imm Gran Abs Auto 0.16 X10*3/uL (0.00-0.03); Imm Gran Pct Auto 1.5 % (0.0-0.4); Lymphocytes Absolute Auto 1.7 X10*3/uL (1.2-4.9); Lymphocytes Percent Auto 15.4 % (20-40); Mean Corpuscular HGB Conc 34.3 g/dl (31.0-36.0); Mean Corpuscular Hemoglobin 31.3 pg (27.0-33.0); Mean Corpuscular Volume 91.2 fL (80.0-98.0); Mean Platelet Volume 9.7 fL (9.4-12.4); Monocytes Absolute Auto 1.5 X10*3/uL (0.1-1.2); Neutrophils Absolute Auto 6.6 x10*3/uL (2.0-8.3); Neutrophils Percent Auto 62.1 % (45-73); Platelet Count 307 X10*3/uL (160-400); Red Blood Count 2.94 X10*6/uL (4.60-5.80); Red Cell Distribution Width 15.4 % (11.0-16.0); White Blood Count 10.7 X10*3/uL (4.8-10.8)
[2025-02-10 06:14] LABS: Estimated Average Glucose 114 mg/dL; Hemoglobin A1c % 5.6 % (<6.0)
[2025-02-10 06:19] LABS: Alanine Aminotransferase 6 U/L (0-40); Albumin Level 3.2 g/dL (3.5-5.0); Anion Gap 18 (12-20); Aspartate Amino Transferase 24 U/L (5-37); Bilirubin Total 0.5 mg/dL (0.0-1.0); Blood Urea Nitrogen 44 mg/dL (9-16); Calcium 8.5 mg/dL (8.4-10.2); Carbon Dioxide 24 mmol/L (22-29); Chloride 92 mmol/L (96-108); Glucose Random 107 mg/dL (60-115); Potassium 4.6 mmol/L (3.3-5.1); Sodium 129 mmol/L (135-145); Total Protein 6.1 g/dL (6.5-8.0)
[2025-02-10 06:23] LABS: Alkaline Phosphatase 62 U/L (39-117)
[2025-02-10 06:27] LABS: Estimated Glomerular Filt Rate 7
[2025-02-10 06:35] LABS: Thyroid Stimulating Hormone 11.12 uIU/mL (0.32-4.0)
== END 2025-02-10 05:31 | disposition home or self-care (01) ==
LOC: HO.MMNH2L 05:30
PROVIDERS: Visit Provider Student in an Organized Health Care Education/Training Program
DX: Z13.89 Encounter for screening for other disorder (principal)
CPT/HCPCS: 36415; 80053; 83036; 84443; 85025

== ENCOUNTER 2025-02-13 05:56 | Outpatient (REF) | payer MEDICARE, SELFPAY ==
--- OUTSIDE RECORDS SUMMARY | 2025-02-13 06:04 | XMS_ITS | Encounter Summary ---
Author Organization [facility] [place], Address [address] [place] [address] Phone Care Team Providers Care Funder Name Role Phone Matias Tan MD Primary Care Provider +1- [phone] Reason for Visit * Reason Comments Med Refill Encounter Details Date Type Department Care Team (Late st Contact Info) Description 09/25/2023 Refill [facility] [address] [place] [address] Denys Mueller MD [address] [facility] [place] [address] Social History Tobacco Use Types [...] visit [facility] [place] - V[facility] Access Center [address] [place] [address] documented as of this encounter Visit Diagnoses Not on filedocumented in this encounter Care Teams Funder Relationship Specialty Start Date End Date Matias Tan MD [address] [place] [address] PCP - General Family Medicine 10/24/19 documented as of this encounter
--- OUTSIDE RECORDS SUMMARY | 2025-02-13 06:04 | XMS_ITS | Encounter Summary ---
Author Organization [facility] [place], Address [address] [place] [address] Phone Care Team Providers Care Outsole Cutter Machine Name Role Phone Matias Tan MD Primary Care Provider +1- [phone] Encounter Details Date Type Department Care Team (Late st Contact Info) Description 03/11/2023 Documentation Only [facility] [address] [place] [address] Jose Luis Amezcua MD Social History Tobacco [...] visit [facility] Vascular Access Center [address] [place] [address] documented as of this encounter Visit Diagnoses Not on filedocumented in this encounter Care Teams Outsole Cutter Machine Relationship Specialty Start Date End Date Matias Tan MD [address] [place] [address] PCP - General Family Medicine 10/24/19 documented as of this encounter
--- OUTSIDE RECORDS SUMMARY | 2025-02-13 06:04 | XMS_ITS | Encounter Summary ---
Author Organization [facility] [place], Address [address] [place] [address] Phone Care Team Providers Care Connie Scratcher Name Role Phone Matias Tan MD Primary Care Provider +1- [phone] Reason for Visit * Reason Comments Med Refill Encounter Details Date Type Department Care Team (Late st Contact Info) Description 01/26/2023 Refill [facility] [address] [place] [address] Denys Mueller MD [address] [facility] [place] [address] Social History Tobacco Use Types [...] visit [facility] [place] - [facility] Center [address] [place] [phone] documented as of this encounter Visit Diagnoses Not on filedocumented in this encounter Care Teams Connie Scratcher Relationship Specialty Start Date End Date Matias Tan MD [address] [place] [address] PCP - General Family Medicine 10/24/19 documented as of this encounter
--- OUTSIDE RECORDS SUMMARY | 2025-02-13 06:04 | XMS_ITS | Encounter Summary ---
Author Organization [facility], Address [address] [place] [address] Phone Care Team Providers Care Dry Kiln Worker Name Role Phone Matias Tan MD Primary Care Provider +1- [phone] Reason for Visit * Reason Onset Date Comments Med Refill 06/24/2022 Encounter Details Date Type Department Care Team (Late st Contact Info) Description 06/24/2022 Refill [facility], [address] [place] [address] Guanako Mercer MD [address] [facility] [place] [address] Social History Tobacco Use Types Packs/Day Years [...] visit [facility] [place] - V[facility] Access Center [address] [place] [address] documented as of this encounter Visit Diagnoses Not on filedocumented in this encounter Care Teams Dry Kiln Worker Relationship Specialty Start Date End Date Matias Tan MD [address] [place] [address] PCP - General Family Medicine 10/24/19 documented as of this encounter
--- OUTSIDE RECORDS SUMMARY | 2025-02-13 06:04 | XMS_ITS | Encounter Summary ---
Author Organization [facility] Address [address] [place] [address] Phone Care Team Providers Care Evp Strategy Name Role Phone Matias Tan MD Primary Care Provider +1- [phone] Reason for Visit * Reason Comments Med Refill Encounter Details Date Type Department Care Team (Late st Contact Info) Description 06/24/2022 Refill [facility] [place], [address] [place] [address] Guanako Mercer MD [address] [facility] [address] [place] [address] Social History Tobacco Use Types Packs/Day Years [...] visit [facility] [place] - V[facility] Access Center [address] [place] [address] documented as of this encounter Visit Diagnoses Not on filedocumented in this encounter Care Teams Evp Strategy Relationship Specialty Start Date End Date Matias Tan MD [address] [place] [address] PCP - General Family Medicine 10/24/19 documented as of this encounter
--- OUTSIDE RECORDS SUMMARY | 2025-02-13 06:04 | XMS_ITS | Encounter Summary ---
Author Organization [facility] [place], Address [address] [place] [address] Phone Care Team Providers Care Medical Reimbursement Specialist Name Role Phone Matias Tan MD Primary Care Provider +1- [phone] Reason for Visit * Reason Onset Date Comments Med Refill 06/20/2022 Encounter Details Date Type Department Care Team (Late st Contact Info) Description 06/20/2022 Refill [facility], [address] [place] [address] Guanako Mercer MD [address] [facility] [address] [place] [phone] Social History Tobacco Use Types Packs/Day Years [...] visit [facility] [place] - V[facility] Access Center [address] [place] [address] documented as of this encounter Visit Diagnoses Not on filedocumented in this encounter Care Teams Medical Reimbursement Specialist Relationship Specialty Start Date End Date Matias Tan MD [address] [facility] [place] [address] PCP - General Family Medicine 10/24/19 documented as of this encounter
--- OUTSIDE RECORDS SUMMARY | 2025-02-13 06:04 | XMS_ITS | Encounter Summary ---
Author Organization [facility] [place], Address [address] [place] [address] Phone Care Team Providers Care Vice President Research Name Role Phone Matias Tan MD Primary Care Provider +1- [phone] Reason for Visit * Reason Comments Med Refill Encounter Details Date Type Department Care Team (Late st Contact Info) Description 07/17/2022 Refill [facility] - Vascular Access Center [address] [place] [address] Guanako Mercer MD [address] [place] [address] Social History Tobacco Use Types Packs/Day Years [...] visit [facility] [place] - [facility] Center [address] [place] [phone] documented as of this encounter Visit Diagnoses Not on filedocumented in this encounter Care Teams Vice President Research Relationship Specialty Start Date End Date Matias Tan MD [address] [place] [address] PCP - General Family Medicine 10/24/19 documented as of this encounter
--- OUTSIDE RECORDS SUMMARY | 2025-02-13 06:04 | XMS_ITS | Encounter Summary ---
Author Organization [facility], Address [address] [place] [address] Phone Care Team Providers Care Data Modeling Architect Name Role Phone Matias Tan MD Primary Care Provider +1- [phone] Reason for Visit * Reason Comments Med Refill Encounter Details Date Type Department Care Team (Late st Contact Info) Description 01/26/2023 Refill [facility] [address] [place] [address] Gabriela Hernandez [...] visit [facility] [place], - Vascular Access Center [address] [address] documented as of this encounter Visit Diagnoses Not on filedocumented in this encounter Care Teams Data Modeling Architect Relationship Specialty Start Date End Date Matias Tan MD [facility] [address] [place] [address] PCP - General Family Medicine 10/24/19 documented as of this encounter
--- OUTSIDE RECORDS SUMMARY | 2025-02-13 06:04 | XMS_ITS | Encounter Summary ---
Author Organization [facility] [place], Address [address] [place] [address] Phone Care Team Providers Care Taxation Agent Name Role Phone Matias Tan MD Primary Care Provider +1- [phone] Reason for Visit * Reason Comments Med Refill Encounter Details Date Type Department Care Team (Late st Contact Info) Description 09/24/2023 Refill [facility] [address] [place] [phone] Denys Mueller MD [address] [facility] [place] [address] Social History Tobacco Use Types [...] visit [facility] [place] - V[facility] Access Center [address] [place] [address] documented as of this encounter Visit Diagnoses Not on filedocumented in this encounter Care Teams Taxation Agent Relationship Specialty Start Date End Date Matias Tan MD [address] [place] [address] PCP - General Family Medicine 10/24/19 documented as of this encounter
--- OUTSIDE RECORDS SUMMARY | 2025-02-13 06:04 | XMS_ITS | Encounter Summary ---
Author Organization [facility] Address [address] [place] [address] Care Team Providers Care Fly Finisher Name Role Phone Yulia Smart MD Primary Care Provider Encounter Details Date Type Department Care Team (Late st Contact Info) Description 01/13/2025 Lab Requisition [facility] - Main Lab 299 [facility] [place] [address] Yulia Smart MD [address] [place] [address] Encounter for other general examination Social History [...] K/mcL LAB HEMETOLOGY METHOD 01/13/2025 11:17 AM [facility] LAB RBC 3.40(L) 4.50 - 5.50 M/mcL LAB HEMETOLOGY METHOD 01/13/2025 11:17 AM [facility] LAB Hemoglobin 10.6(L) 13.5 - 17.5 g/dL LAB HEMETOLOGY METHOD 01/13/2025 11:17 AM [facility] LAB Hematocrit 30.8(L) 42.0 - 54.0 % LAB HEMETOLOGY METHOD 01/13/2025 11:17 AM [facility] LAB MCV 89.8 79.0 - 98.0 FL LAB HEMETOLOGY METHOD 01/13/2025 11:17 AM [facility] LAB MCH 30.9 27.0 - 32.0 pcg LAB HEMETOLOGY METHOD 01/13/2025 11:17 AM [facility] LAB MCHC 34.4 32.0 - 37.0 g/dL LAB HEMETOLOGY METHOD 01/13/2025 11:17 AM [facility] LAB RDW 14.5 11.0 - 15.0 % LAB HEMETOLOGY METHOD 01/13/2025 11:17 AM [facility] LAB Platelets 105(L) 130 - 400 K/mcL LAB HEMETOLOGY METHOD 01/13/2025 11:17 AM [facility] LAB MPV 11.5(H) 7.0 - 11.0 FL LAB HEMETOLOGY METHOD 01/13/2025 11:17 AM [facility] LAB NRBC 0.0 <1.0 % LAB HEMETOLOGY METHOD 01/13/2025 11:17 AM [facility] LAB NRBC Absolute 0.00 <0.10 K/mcL LAB HEMETOLOGY METHOD 01/13/2025 11:17 AM [facility] LAB Neutrophils Relative 49.1 % LAB HEMETOLOGY METHOD 01/13/2025 11:17 AM [facility] LAB Lymphocytes Relative 31.3 % LAB HEMETOLOGY METHOD 01/13/2025 11:17 AM [facility] LAB Monocytes Relative 13.0 % LAB HEMETOLOGY METHOD 01/13/2025 11:17 AM [facility] LAB Eosinophils Relative 6.0 % LAB HEMETOLOGY METHOD 01/13/2025 11:17 AM [facility] LAB Basophils Relative 0.4 % LAB HEMETOLOGY METHOD 01/13/2025 11:17 AM [facility] LAB Immature Granulocytes Relative 0.2 % LAB HEMETOLOGY METHOD 01/13/2025 11:17 AM [facility] LAB Neutrophils Absolute 2.38 1.50 - 7.00 K/mcL LAB HEMETOLOGY METHOD 01/13/2025 11:17 AM [facility] LAB Lymphocytes Absolute 1.52 1.00 - 5.00 K/mcL LAB HEMETOLOGY METHOD 01/13/2025 11:17 AM [facility] LAB Monocytes Absolute 0.63 0.20 - 1.00 K/mcL LAB HEMETOLOGY METHOD 01/13/2025 11:17 AM [facility] LAB Eosinophils Absolute 0.29 0.00 - 0.50 K/mcL LAB HEMETOLOGY METHOD 01/13/2025 11:17 AM [facility] LAB Basophils Absolute 0.02 0.00 - 0.20 K/mcL LAB HEMETOLOGY METHOD 01/13/2025 11:17 AM [facility] LAB Immature Granulocytes Absolute 0.01 0.00 - 0.03 K/mcL LAB HEMETOLOGY METHOD 01/13/2025 11:17 AM [facility] LAB Blood Venous blood specimen / Unknown Venipuncture / Unknown 01/13/2025 5:26 AM EDT 01/13/2025 10:00 AM EDT us Yulia Smart MD LAB BLOOD ORDERABLES Final Resu lt Performing Organization Address City/[facility]/ZIP Co de Phone Number [facility] LAB [address] [place] [address], [place] [phone] * (ABNORMAL) Magnesium (01/13/2025 5:26 AM EDT) Magnesium 1.8(L) 1.9 - 2.6 mg/dL LAB CHEMISTRY METHOD 01/13/2025 12:11 PM EDT [facility] LAB Blood Venous blood specimen / Unknown Venipuncture / Unknown 01/13/2025 5:26 AM EDT 01/13/2025 10:00 AM EDT us Yulia Smart MD LAB BLOOD ORDERABLES Final Resu lt Performing Organization Address [facility]/ZIP Ct de Phone Number [facility] LAB [address] [place] [address], [place] [phone] * Hemoglobin A1c (01/13/2025 5:26 AM EDT) Hemoglobin A1C 5.6 <6.5 % LAB CHEMISTRY METHOD 01/13/2025 12:43 PM EDT [facility] Mean Bld Glu Estim. 114 mg/dL LAB CHEMISTRY METHOD 01/13/2025 12:43 PM EDT [facility] LAB Blood Venous blood specimen / Unknown Venipuncture / Unknown 01/13/2025 5:26 AM EDT 01/13/2025 10:00 AM EDT us Yulia Smart MD LAB BLOOD ORDERABLES Final Resu lt Performing Organization Address City/[facility]/ZIP Co de Phone Number [facility] [address] [place] [address], [place] [phone] * (ABNORMAL) Comprehensive metabolic panel (01/13/2025 5:26 AM EDT) Sodium 129(L) 133 - 145 mmol/L LAB CHEMISTRY METHOD 01/13/2025 12:12 PM [facility] LAB Potassium 3.6 3.5 - 5.5 mmol/L LAB CHEMISTRY METHOD 01/13/2025 12:12 PM [facility] LAB Chloride 85(L) 96 - 110 mmol/L LAB CHEMISTRY METHOD 01/13/2025 12:12 PM [facility] LAB CO2 28 21 - 32 mmol/L LAB CHEMISTRY METHOD 01/13/2025 12:12 PM [facility] LAB Anion Gap 16(H) 3 - 11 LAB CHEMISTRY METHOD 01/13/2025 12:12 PM [facility] LAB Glucose 90 70 - 100 mg/dL LAB CHEMISTRY METHOD 01/13/2025 12:12 PM [facility] LAB BUN 77(H) 5 - 25 mg/dL LAB CHEMISTRY METHOD 01/13/2025 12:12 PM [facility] LAB Creatinine 10.50(H) 0.70 - 1.30 mg/dL LAB CHEMISTRY METHOD 01/13/2025 12:12 PM [facility] LAB eGFR 5(L) >=60 mL/min/1 .73m2 LAB CHEMISTRY METHOD 01/13/2025 12:12 PM [facility] LAB Comment:Calculation based on the??Chronic Kidney Disease Epidemiology Collaboration (CKD-EPI) equation refit??without adjustment for race. BUN/Creatinine Ratio 7.3 LAB CHEMISTRY METHOD 01/13/2025 12:12 PM [facility] LAB Calcium 7.2(L) 8.5 - 10.5 mg/dL LAB CHEMISTRY METHOD 01/13/2025 12:12 PM [facility] LAB AST (SGOT) 76(H) 10 - 42 unit/L LAB CHEMISTRY METHOD 01/13/2025 12:12 PM EDT [facility] ALT (SGPT) 36 10 - 60 unit/L LAB CHEMISTRY METHOD 01/13/2025 12:12 PM EDT [facility] Alkaline Phosphatase 65 42 - 121 unit/L LAB CHEMISTRY METHOD 01/13/2025 12:12 PM EDT [facility] Total Protein 5.9(L) 6.0 - 8.0 g/dL LAB CHEMISTRY METHOD 01/13/2025 12:12 PM EDT [facility] Albumin 2.9(L) 3.2 - 5.0 g/dL LAB CHEMISTRY METHOD 01/13/2025 12:12 PM [facility] LAB Total Bilirubin 0.4 0.0 - 1.4 mg/dL LAB CHEMISTRY METHOD 01/13/2025 12:12 PM EDT [facility] Blood Venous blood specimen / Unknown Venipuncture / Unknown 01/13/2025 5:26 AM EDT 01/13/2025 10:00 AM EDT us Yulia Smart MD LAB BLOOD ORDERABLES Final Resu lt [facility] [address] [place] [address], [place] [phone] documented in this encounter Visit Diagnoses Diagnosis Encounter for other general examination documented in this encounter Care Teams Fly Finisher Relationship Specialty Start Date End Date Yulia Smart MD [address] [place] [phone] PCP - General Hospitalist Medicine 01/13/25 documented as of this encounter
--- OUTSIDE RECORDS SUMMARY | 2025-02-13 06:04 | XMS_ITS | Encounter Summary ---
Author Organization [facility], Address [address] [place] [address] Phone Care Team Providers Care Benefits Representative Name Role Phone Matias Tan MD Primary Care Provider +1- [phone] Reason for Visit * Reason Comments Med Refill Encounter Details Date Type Department Care Team (Late st Contact Info) Description 09/24/2023 Refill [facility] [address] [place] [address] Gabriela Hernandez PA [...] visit [facility] [place] - V[facility] Access Center [address] [place] [address] documented as of this encounter Visit Diagnoses Not on filedocumented in this encounter Care Teams Benefits Representative Relationship Specialty Start Date End Date Matias Tan MD [facility] [address] [place] [address] PCP - General Family Medicine 10/24/19 documented as of this encounter
--- OUTSIDE RECORDS SUMMARY | 2025-02-13 06:04 | XMS_ITS | Encounter Summary ---
Author Organization [facility] Address [address] [place] [address] Care Team Providers Care Caster Investment Casting Name Role Phone Yulia Smart MD Primary Care Provider Encounter Details Date Type Department Care Team (Late st Contact Info) Description 01/14/2025 Lab Requisition [facility] - Main Lab [address] [place] [address] Yulia Smart MD [address] [place] [phone] Encounter for other general examination Social History [...] LAB CHEMISTRY METHOD 01/14/2025 12:17 PM EDT [facility] ([facility] LAB Blood Venous blood specimen / Unknown Venipuncture / Unknown 01/14/2025 5:58 AM EDT 01/14/2025 9:53 AM EDT us Yulia Smart MD LAB BLOOD ORDERABLES Final Resu lt [facility] [place] ([facility] LAB [address] [place] [address], documented in this encounter Visit Diagnoses Diagnosis Encounter for other general examination documented in this encounter Care Teams Caster Investment Casting Relationship Specialty Start Date End Date Yulia Smart MD [address] [place] [phone] PCP - General Hospitalist Medicine 01/13/25 documented as of this encounter
--- OUTSIDE RECORDS SUMMARY | 2025-02-13 06:04 | XMS_ITS | Encounter Summary ---
Author Organization [facility] [place], Address [address] [place] [address] Phone Care Team Providers Care Outpatient Coordinator Name Role Phone Matias Tan MD Primary Care Provider +1- [phone] Reason for Visit * Reason Onset Date Comments Med Refill 07/19/2022 Encounter Details Date Type Department Care Team (Late st Contact Info) Description 07/19/2022 Refill [facility] - Vascular Access Center [address] [place] [phone] Guanako Mercer MD [address] [place] [place] [phone] Social History Tobacco Use Types Packs/Day Years [...] visit [facility] - [facility] [address] [place] [phone] documented as of this encounter Visit Diagnoses Not on filedocumented in this encounter Care Teams Outpatient Coordinator Relationship Specialty Start Date End Date Matias Tan MD [facility] [address] [facility] [place] [address] PCP - General Family Medicine 10/24/19 documented as of this encounter
--- OUTSIDE RECORDS SUMMARY | 2025-02-13 06:04 | XMS_ITS | Encounter Summary ---
Author Organization [facility] Address [address] [place] [address] Care Team Providers Care Broadcasting Equipment Mechanic Name Role Phone Yulia Smart MD Primary Care Provider Encounter Details Date Type Department Care Team (Late st Contact Info) Description 01/18/2025 Lab Requisition [facility] - Main Lab 299 [facility] [place] [address] Yulia Smart MD [address] [place] [phone] Encounter for other general examination Social History [...] K/mcL LAB HEMETOLOGY METHOD 01/18/2025 7:10 AM [facility] LAB RBC 3.10(L) 4.50 - 5.50 M/mcL LAB HEMETOLOGY METHOD 01/18/2025 7:10 AM [facility] LAB Hemoglobin 9.5(L) 13.5 - 17.5 g/dL LAB HEMETOLOGY METHOD 01/18/2025 7:10 AM [facility] LAB Hematocrit 27.0(L) 42.0 - 54.0 % LAB HEMETOLOGY METHOD 01/18/2025 7:10 AM [facility] LAB MCV 87.1 79.0 - 98.0 FL LAB HEMETOLOGY METHOD 01/18/2025 7:10 AM [facility] LAB MCH 30.6 27.0 - 32.0 pcg LAB HEMETOLOGY METHOD 01/18/2025 7:10 AM [facility] LAB MCHC 35.2 32.0 - 37.0 g/dL LAB HEMETOLOGY METHOD 01/18/2025 7:10 AM [facility] LAB RDW 14.3 11.0 - 15.0 % LAB HEMETOLOGY METHOD 01/18/2025 7:10 AM [facility] LAB Platelets 251 130 - 400 K/mcL LAB HEMETOLOGY METHOD 01/18/2025 7:10 AM [facility] LAB MPV 11.1(H) 7.0 - 11.0 FL LAB HEMETOLOGY METHOD 01/18/2025 7:10 AM [facility] LAB NRBC 0.0 <1.0 % LAB HEMETOLOGY METHOD 01/18/2025 7:10 AM [facility] LAB NRBC Absolute 0.00 <0.10 K/mcL LAB HEMETOLOGY METHOD 01/18/2025 7:10 AM EDT [facility] LAB Neutrophils Relative 77.1 % LAB HEMETOLOGY METHOD 01/18/2025 7:10 AM [facility] LAB Lymphocytes Relative 8.3 % LAB HEMETOLOGY METHOD 01/18/2025 7:10 AM [facility] LAB Monocytes Relative 13.5 % LAB HEMETOLOGY METHOD 01/18/2025 7:10 AM [facility] LAB Eosinophils Relative 0.0 % LAB HEMETOLOGY METHOD 01/18/2025 7:10 AM [facility] LAB Basophils Relative 0.0 % LAB HEMETOLOGY METHOD 01/18/2025 7:10 AM [facility] LAB Immature Granulocytes Relative 1.1 % LAB HEMETOLOGY METHOD 01/18/2025 7:10 AM [facility] LAB Neutrophils Absolute 7.61(H) 1.50 - 7.00 K/mcL LAB HEMETOLOGY METHOD 01/18/2025 7:10 AM [facility] LAB Lymphocytes Absolute 0.82(L) 1.00 - 5.00 K/mcL LAB HEMETOLOGY METHOD 01/18/2025 7:10 AM [facility] LAB Monocytes Absolute 1.33(H) 0.20 - 1.00 K/mcL LAB HEMETOLOGY METHOD 01/18/2025 7:10 AM [facility] LAB Eosinophils Absolute 0.00 0.00 - 0.50 K/mcL LAB HEMETOLOGY METHOD 01/18/2025 7:10 AM [facility] LAB Basophils Absolute 0.00 0.00 - 0.20 K/mcL LAB HEMETOLOGY METHOD 01/18/2025 7:10 AM [facility] LAB Immature Granulocytes Absolute 0.11(H) 0.00 - 0.03 K/mcL LAB HEMETOLOGY METHOD 01/18/2025 7:10 AM EDT [facility] LAB Blood Venous blood specimen / Unknown Venipuncture / Unknown 01/18/2025 5:06 AM EDT 01/18/2025 6:20 AM EDT us Yulia Smart MD LAB BLOOD ORDERABLES Final Resu lt Performing Organization Address City/[facility]/ZIP Co de Phone Number [facility] LAB [address] [place] [address], [place] [phone] * Ammonia (01/18/2025 5:06 AM EDT) Ammonia 28 11 - 35 mcmol/L LAB CHEMISTRY METHOD 01/18/2025 6:53 AM EDT [facility] LAB Blood Venous blood specimen / Unknown Venipuncture / Unknown 01/18/2025 5:06 AM EDT 01/18/2025 6:20 AM EDT us Yulia Smart MD LAB BLOOD ORDERABLES Final Resu lt Performing Organization Address [facility] Co de Phone Number [facility] LAB [address] [place] [address], [place] [phone] * Thyroid stimulating hormone (01/18/2025 5:06 AM EDT) TSH 1.94 0.40 - 4.00 mcIU/mL LAB CHEMISTRY METHOD 01/18/2025 9:08 AM EDT [facility] LAB Blood Venous blood specimen / Unknown Venipuncture / Unknown 01/18/2025 5:06 AM EDT 01/18/2025 6:20 AM EDT us Yulia Smart MD LAB BLOOD ORDERABLES Final Resu lt Performing Organization Address City/[facility]/ZIP Co de Phone Number [facility] LAB [address] [place] [address], [place] [phone] * (ABNORMAL) Vitamin B12 (01/18/2025 5:06 AM EDT) [facility] Vitamin B-12 1,241(H) 250 - 900 pcg/mL LAB CHEMISTRY METHOD 01/18/2025 7:36 AM EDT [facility] LAB Blood Venous blood specimen / Unknown Venipuncture / Unknown 01/18/2025 5:06 AM EDT 01/18/2025 6:20 AM EDT us Yulia Smart MD LAB BLOOD ORDERABLES Final Resu lt [facility] LAB [address] [place] [address], [place] [phone] * (ABNORMAL) Comprehensive metabolic panel (01/18/2025 5:06 AM EDT) [facility] Sodium 123(L) 133 - 145 mmol/L LAB CHEMISTRY METHOD 01/18/2025 7:56 AM [facility] LAB Potassium 5.2 3.5 - 5.5 mmol/L LAB CHEMISTRY METHOD 01/18/2025 7:56 AM [facility] LAB Chloride 89(L) 96 - 110 mmol/L LAB CHEMISTRY METHOD 01/18/2025 7:56 AM [facility] CO2 21 21 - 32 mmol/L LAB CHEMISTRY METHOD 01/18/2025 7:56 AM [facility] LAB Anion Gap 13(H) 3 - 11 LAB CHEMISTRY METHOD 01/18/2025 7:56 AM [facility] LAB Glucose 174(H) 70 - 100 mg/dL LAB CHEMISTRY METHOD 01/18/2025 7:56 AM [facility] BUN 96(H) 5 - 25 mg/dL LAB CHEMISTRY METHOD 01/18/2025 7:56 AM [facility] Creatinine 9.44(H) 0.70 - 1.30 mg/dL LAB CHEMISTRY METHOD 01/18/2025 7:56 AM [facility] LAB eGFR 5(L) >=60 mL/min/1. 73m2 LAB CHEMISTRY METHOD 01/18/2025 7:56 AM [facility] LAB Comment:Calculation based on the??Chronic Kidney Disease Epidemiology Collaboration (CKD-EPI) equation refit??without adjustment for race. BUN/Creatinine Ratio 10.2 LAB CHEMISTRY METHOD 01/18/2025 7:56 AM [facility] LAB Calcium 7.8(L) 8.5 - 10.5 mg/dL LAB CHEMISTRY METHOD 01/18/2025 7:56 AM [facility] AST (SGOT) 13 10 - 42 unit/L LAB CHEMISTRY METHOD 01/18/2025 7:56 AM [facility] LAB Comment:Results verified by repeat testing ALT (SGPT) 21 10 - 60 unit/L LAB CHEMISTRY METHOD 01/18/2025 7:56 AM [facility] Alkaline Phosphatase 52 42 - 121 unit/L LAB CHEMISTRY METHOD 01/18/2025 7:56 AM [facility] Total Protein 5.3(L) 6.0 - 8.0 g/dL LAB CHEMISTRY METHOD 01/18/2025 7:56 AM [facility] Albumin 2.6(L) 3.2 - 5.0 g/dL LAB CHEMISTRY METHOD 01/18/2025 7:56 AM [facility] Total Bilirubin 1.0 0.0 - 1.4 mg/dL LAB CHEMISTRY METHOD 01/18/2025 7:56 AM [facility] LAB Comment:Results verified by repeat testing Blood Venous blood specimen / Unknown Venipuncture / Unknown 01/18/2025 5:06 AM EDT 01/18/2025 6:20 AM EDT us Rami A Ashkar MD LAB BLOOD ORDERABLES Final Resu lt [facility] [address] [place] [address], documented in this encounter Visit Diagnoses Diagnosis Encounter for other general examination documented in this encounter Care Teams Broadcasting Equipment Mechanic Relationship Specialty Start Date End Date Yulia Smart MD [address] [place] [phone] PCP - General Hospitalist Medicine 01/13/25 documented as of this encounter
--- OUTSIDE RECORDS SUMMARY | 2025-02-13 06:04 | XMS_ITS | Clinical Summary ---
Author Organization 299 [facility] Address [address] [place] [address] Phone Care Team Providers Care Vice President For Philanthropy Name Role Phone Yulia Smart MD Primary Care Provider [phone] Encounters Date Type Department Care Team Description 01/18/2025 Lab Requisition [facility] Lab [address] [place] [phone] Yulia Smart MD Encounter for other general examination 01/14/2025 Lab Requisition [facility] Lab [address] [place] [phone] Yulia Smart MD Encounter for other general examination 01/13/2025 Lab Requisition [facility] Lab [address] [place] [phone] Yulia Smart MD Encounter for other general [...] age to complete this topic Meningococcal B Vaccine Aged Out No l onger eligible based on patient's age to complete [...] LAB HEMETOLOGY METHOD 01/18/2025 7:10 AM EDT [facility] RBC 3.10(L) 4.50 - 5.50 M/mcL LAB HEMETOLOGY METHOD 01/18/2025 7:10 AM EDT [facility] Hemoglobin 9.5(L) 13.5 - 17.5 g/dL LAB HEMETOLOGY METHOD 01/18/2025 7:10 AM EDT [facility] Hematocrit 27.0(L) 42.0 - 54.0 % LAB HEMETOLOGY METHOD 01/18/2025 7:10 AM [facility] MCV 87.1 79.0 - 98.0 FL LAB HEMETOLOGY METHOD 01/18/2025 7:10 AM [facility] MCH 30.6 27.0 - 32.0 pcg LAB HEMETOLOGY METHOD 01/18/2025 7:10 AM [facility] MCHC 35.2 32.0 - 37.0 g/dL LAB HEMETOLOGY METHOD 01/18/2025 7:10 AM [facility] RDW 14.3 11.0 - 15.0 % LAB HEMETOLOGY METHOD 01/18/2025 7:10 AM [facility] Platelets 251 130 - 400 K/mcL LAB HEMETOLOGY METHOD 01/18/2025 7:10 AM [facility] MPV 11.1(H) 7.0 - 11.0 FL LAB HEMETOLOGY METHOD 01/18/2025 7:10 AM [facility] NRBC 0.0 <1.0 % LAB HEMETOLOGY METHOD 01/18/2025 7:10 AM [facility] NRBC Absolute 0.00 <0.10 K/mcL LAB HEMETOLOGY METHOD 01/18/2025 7:10 AM [facility] Neutrophils Relative 77.1 % LAB HEMETOLOGY METHOD 01/18/2025 7:10 AM [facility] Lymphocytes Relative 8.3 % LAB HEMETOLOGY METHOD 01/18/2025 7:10 AM [facility] Monocytes Relative 13.5 % LAB HEMETOLOGY METHOD 01/18/2025 7:10 AM [facility] Eosinophils Relative 0.0 % LAB HEMETOLOGY METHOD 01/18/2025 7:10 AM EDT [facility] Basophils Relative 0.0 % LAB HEMETOLOGY METHOD 01/18/2025 7:10 AM EDT [facility] Immature Granulocytes Relative 1.1 % LAB HEMETOLOGY METHOD 01/18/2025 7:10 AM EDT [facility] Neutrophils Absolute 7.61(H) 1.50 - 7.00 K/mcL LAB HEMETOLOGY METHOD 01/18/2025 7:10 AM EDT [facility] Lymphocytes Absolute 0.82(L) 1.00 - 5.00 K/mcL LAB HEMETOLOGY METHOD 01/18/2025 7:10 AM EDT [facility] Monocytes Absolute 1.33(H) 0.20 - 1.00 K/mcL LAB HEMETOLOGY METHOD 01/18/2025 7:10 AM [facility] Eosinophils Absolute 0.00 0.00 - 0.50 K/mcL LAB HEMETOLOGY METHOD 01/18/2025 7:10 AM [facility] Basophils Absolute 0.00 0.00 - 0.20 K/mcL LAB HEMETOLOGY METHOD 01/18/2025 7:10 AM [facility] Immature Granulocytes Absolute 0.11(H) 0.00 - 0.03 K/mcL LAB HEMETOLOGY METHOD 01/18/2025 7:10 AM [facility] Blood Venous blood specimen / Unknown Venipuncture / Unknown 01/18/2025 5:06 AM EDT 01/18/2025 6:20 AM EDT us Yulia Smart MD LAB BLOOD ORDERABLES Final Resu lt [facility] [address] [place] [address], * Thyroid stimulating hormone (01/18/2025 5:06 AM EDT) TSH 1.94 0.40 - 4.00 mcIU/mL LAB CHEMISTRY METHOD 01/18/2025 9:08 AM EDT [facility] Blood Venous blood specimen / Unknown Venipuncture / Unknown 01/18/2025 5:06 AM EDT 01/18/2025 6:20 AM EDT us Yulia Smart MD LAB BLOOD ORDERABLES Final Resu lt Performing Organization Address [facility] de Phone Number [facility] [address] [place] [address], [place] [phone] * (ABNORMAL) Vitamin B12 (01/18/2025 5:06 AM EDT) [facility] Vitamin B-12 1,241(H) 250 - 900 pcg/mL LAB CHEMISTRY METHOD 01/18/2025 7:36 AM EDT [facility] Blood Venous blood specimen / Unknown Venipuncture / Unknown 01/18/2025 5:06 AM EDT 01/18/2025 6:20 AM EDT us Yulia Smart MD LAB BLOOD ORDERABLES Final Resu lt Performing Organization Address [facility] de Phone Number [facility] [address] [place] [address], [place] [phone] * Ammonia (01/18/2025 5:06 AM EDT) [facility] Ammonia 28 11 - 35 mcmol/L LAB CHEMISTRY METHOD 01/18/2025 6:53 AM EDT [facility] Blood Venous blood specimen / Unknown Venipuncture / Unknown 01/18/2025 5:06 AM EDT 01/18/2025 6:20 AM EDT us Yulia Smart MD LAB BLOOD ORDERABLES Final Resu lt Performing Organization Address City/[facility]/ZIP Co de Phone Number [facility] [address] [place] [address], * (ABNORMAL) Comprehensive metabolic panel (01/18/2025 5:06 AM EDT) Only the most recent of2 resultswithin the time period is included. Sodium 123(L) 133 - 145 mmol/L LAB CHEMISTRY METHOD 01/18/2025 7:56 AM EDT [facility] Potassium 5.2 3.5 - 5.5 mmol/L LAB CHEMISTRY METHOD 01/18/2025 7:56 [facility] Chloride 89(L) 96 - 110 mmol/L LAB CHEMISTRY METHOD 01/18/2025 7:56 AM [facility] CO2 21 21 - 32 mmol/L LAB CHEMISTRY METHOD 01/18/2025 7:56 AM [facility] Anion Gap 13(H) 3 - 11 LAB CHEMISTRY METHOD 01/18/2025 7:56 AM [facility] Glucose 174(H) 70 - 100 mg/dL LAB CHEMISTRY METHOD 01/18/2025 7:56 AM [facility] BUN 96(H) 5 - 25 mg/dL LAB CHEMISTRY METHOD 01/18/2025 7:56 AM [facility] Creatinine 9.44(H) 0.70 - 1.30 mg/dL LAB CHEMISTRY METHOD 01/18/2025 7:56 AM [facility] eGFR 5(L) >=60 mL/min/1. 73m2 LAB CHEMISTRY METHOD 01/18/2025 7:56 AM [facility] Comment:Calculation based on the??Chronic Kidney Disease Epidemiology Collaboration (CKD-EPI) equation refit??without adjustment for race. BUN/Creatinine Ratio 10.2 LAB CHEMISTRY METHOD 01/18/2025 7:56 AM [facility] Calcium 7.8(L) 8.5 - 10.5 mg/dL LAB CHEMISTRY METHOD 01/18/2025 7:56 AM EDT [facility] AST (SGOT) 13 10 - 42 unit/L LAB CHEMISTRY METHOD 01/18/2025 7:56 AM [facility] Comment:Results verified by repeat testing ALT (SGPT) 21 10 - 60 unit/L LAB CHEMISTRY METHOD 01/18/2025 7:56 AM EDT [facility] Alkaline Phosphatase 52 42 - 121 unit/L LAB CHEMISTRY METHOD 01/18/2025 7:56 [facility] Total Protein 5.3(L) 6.0 - 8.0 g/dL LAB CHEMISTRY METHOD 01/18/2025 7:56 AM [facility] Albumin 2.6(L) 3.2 - 5.0 g/dL LAB CHEMISTRY METHOD 01/18/2025 7:56 AM [facility] Total Bilirubin 1.0 0.0 - 1.4 mg/dL LAB CHEMISTRY METHOD 01/18/2025 7:56 AM [facility] Comment:Results verified by repeat testing Blood Venous blood specimen / Unknown Venipuncture / Unknown 01/18/2025 5:06 AM EDT 01/18/2025 6:20 AM EDT us Yulia Smart MD LAB BLOOD ORDERABLES Final Resu lt [facility] [address] [place] [address], * (ABNORMAL) Phosphorus (01/14/2025 5:58 AM EDT) Phosphorus 5.6(H) 2.5 - 4.5 mg/dL LAB CHEMISTRY METHOD 01/14/2025 12:17 PM EDT [facility] Blood Venous blood specimen / Unknown Venipuncture / Unknown 01/14/2025 5:58 AM EDT 01/14/2025 9:53 AM EDT us Yulia Smart MD LAB BLOOD ORDERABLES Final Resu lt Performing Organization Address City/[facility]/ZIP Co de Phone Number [facility] [address] [place] [address], [place] [phone] * (ABNORMAL) Magnesium (01/13/2025 5:26 AM EDT) [facility] Magnesium 1.8(L) 1.9 - 2.6 mg/dL LAB CHEMISTRY METHOD 01/13/2025 12:11 PM EDT [facility] Blood Venous blood specimen / Unknown Venipuncture / Unknown 01/13/2025 5:26 AM EDT 01/13/2025 10:00 AM EDT us Yulia Smart MD LAB BLOOD ORDERABLES Final Resu lt Performing Organization Address [facility] Co de Phone Number [facility] [address] [place] [address], [place] [phone] * Hemoglobin A1c (01/13/2025 5:26 AM EDT) [facility] Hemoglobin A1C 5.6 <6.5 % LAB [...] ORDERABLES Final Resu lt Performing Organization Address City/[facility]/ZIP Co de Phone Number [facility] [address] [place] [address], [place] [phone] from Last 3 Months Insurance [facility] [place] [address] MEDICARE Care Teams Vice President For Philanthropy Relationship Specialty Start Date End Date Yulia Smart MD [address] [place] [address] PCP - General Hospitalist Medicine 01/13/25
--- OUTSIDE RECORDS SUMMARY | 2025-02-13 06:04 | XMS_ITS | Encounter Summary ---
Author Organization [facility], Address [address] [place] [address] Phone Care Team Providers Care Workforce Management Consultant Name Role Phone Matias Tan MD Primary Care Provider +1- [phone] Encounter Details Date Type Department Care Team (Late st Contact Info) Description 01/10/2022 Documentation Only [facility], [address] [place] [phone] [address] [place] [address] Social History Tobacco Use Types [...] visit [facility] - V[facility] Access Center [address] [place] [phone] documented as of this encounter Visit Diagnoses Not on filedocumented in this encounter Care Teams Workforce Management Consultant Relationship Specialty Start Date End Date Matias Tan MD [address] [place] [address] PCP - General Family Medicine 10/24/19 documented as of this encounter
--- OUTSIDE RECORDS SUMMARY | 2025-02-13 06:04 | XMS_ITS | Encounter Summary ---
Author Organization [facility], Address [address] [place] [address] Phone Care Team Providers Care Studio Set Up Worker Name Role Phone Matias Tan MD Primary Care Provider +1- [phone] Reason for Visit * Reason Comments Med Refill Encounter Details Date Type Department Care Team (Late st Contact Info) Description 11/28/2022 Refill [facility] [place] [address] [place] [address] Guanako Mercer MD [address] [place] [address] Social History Tobacco Use Types [...] visit [facility] - [facility] [address] [place] [address] documented as of this encounter Visit Diagnoses Not on filedocumented in this encounter Care Teams Studio Set Up Worker Relationship Specialty Start Date End Date Matias Tan MD [address] [facility] [place] [address] PCP - General Family Medicine 10/24/19 documented as of this encounter
--- OUTSIDE RECORDS SUMMARY | 2025-02-13 06:04 | XMS_ITS | Encounter Summary ---
Author Organization [facility], Address [address] [place] [address] Phone Care Team Providers Care Mosaic Tiler Name Role Phone Matias Tan MD Primary Care Provider +1- [phone] Reason for Visit * Reason Onset Date Comments Med Refill 06/08/2022 Encounter Details Date Type Department Care Team (Late st Contact Info) Description 06/08/2022 Refill [facility], [address] [place] [phone] Guanako Mercer MD [address] [facility] [place] [phone] Social History Tobacco Use Types Packs/Day Years [...] visit [facility] - [facility] Center [address] [place] [address] documented as of this encounter Visit Diagnoses Not on filedocumented in this encounter Care Teams Mosaic Tiler Relationship Specialty Start Date End Date Matias Tan MD [address] [facility] [place] [place] [address] PCP - General Family Medicine 10/24/19 documented as of this encounter
--- OUTSIDE RECORDS SUMMARY | 2025-02-13 06:05 | XMS_ITS | Encounter Summary ---
Author Organization [facility], Address [address] [place] [address] Phone Care Team Providers Care Cattle Killer Name Role Phone Matias Tan MD Primary Care Provider +1- [phone] Reason for Visit * Reason Onset Date Comments Med Refill 07/01/2024 Encounter Details Date Type Department Care Team (Late Contact Info) Description 07/01/2024 Refill [facility], - Vascular Access Center [address] [place] [phone] Dale Lema MD [address] [place] [phone] Social History Tobacco Use Types Packs/Day Years [...] visit [facility] - [facility] Center [address] [place] [phone] documented as of this encounter Visit Diagnoses Not on filedocumented in this encounter Care Teams Cattle Killer Relationship Specialty Start Date End Date Matias Tan MD [address] [facility] [place] [phone] PCP - General Family Medicine 10/24/19 documented as of this encounter
--- OUTSIDE RECORDS SUMMARY | 2025-02-13 06:05 | XMS_ITS | Encounter Summary ---
Author Organization [facility], Address [address] [place] [address] Phone Care Team Providers Care Interactive Media Project Manager Name Role Phone Matias Tan MD Primary Care Provider +1- [phone] Reason for Visit * Reason Onset Date Comments Med Refill 12/20/2022 Encounter Details Date Type Department Care Team (Late st Contact Info) Description 12/20/2022 Refill [facility] - Vascular Access Center [address] [place] [address] Kb Sung MD Social History Tobacco Use [...] visit [facility] - V[facility] Access Center [address] [place] [address] documented as of this encounter Visit Diagnoses Not on filedocumented in this encounter Care Teams Interactive Media Project Manager Relationship Specialty Start Date End Date Matias Tan MD [facility] [address] [facility] [place] [address] PCP - General Family Medicine 10/24/19 documented as of this encounter
--- OUTSIDE RECORDS SUMMARY | 2025-02-13 06:05 | XMS_ITS | Encounter Summary ---
Author Organization [facility], Address [address] [place] [address] Phone Care Team Providers Care School Library Media Specialist Name Role Phone Matias Tan MD Primary Care Provider +1- [phone] Encounter Details Date Type Department Care Team (Late st Contact Info) Description 02/02/2024 Documentation Only [facility], [address] [place] [phone] Alexandria Yusuf [address] [place] [address] Social History Tobacco Use Types [...] visit [facility] - V[facility] Access Center [address] [place] [phone] documented as of this encounter Visit Diagnoses Not on filedocumented in this encounter Care Teams School Library Media Specialist Relationship Specialty Start Date End Date Matias Tan MD [address] [place] [address] PCP - General Family Medicine 10/24/19 documented as of this encounter
--- OUTSIDE RECORDS SUMMARY | 2025-02-13 06:05 | XMS_ITS | Encounter Summary ---
Author Organization [facility], Address [address] [place] [address] Phone Care Team Providers Care Hazardous Materials Tanker Driver Name Role Phone Matias Tan MD Primary Care Provider +1- [phone] Reason for Visit * Reason Comments Med Refill Encounter Details Date Type Department Care Team (Late st Contact Info) Description 05/08/2024 Refill [facility] [address] [facility] [place] [address] Gabriela Hernadnez PA Social History Tobacco Use Types Packs/Day [...] visit [facility], - Vascular Access Center [address] [facility] [place] [address] documented as of this encounter Visit Diagnoses Not on filedocumented in this encounter Care Teams Hazardous Materials Tanker Driver Relationship Specialty Start Date End Date Matias Tan MD [facility] [address] [place] [address] PCP - General Family Medicine 10/24/19 documented as of this encounter
--- OUTSIDE RECORDS SUMMARY | 2025-02-13 06:05 | XMS_ITS | Encounter Summary ---
Author Organization [facility], Address [address] [place] [address] Phone Care Team Providers Care Pediatric Neuropsychologist Name Role Phone Matias Tan MD Primary Care Provider +1- [phone] Reason for Visit * Reason Onset Date Comments Med Refill 12/23/2022 Encounter Details Date Type Department Care Team (Late st Contact Info) Description 12/23/2022 Refill [facility] - Vascular Access Center [address] [place] [phone] Ferdinand Monroe MD [address] [place] [phone] Social History Tobacco Use Types Packs/Day Years [...] visit [facility] - Vascular Access Center [address] [place] [address] [place] [phone] documented as of this encounter Visit Diagnoses Not on filedocumented in this encounter Care Teams Pediatric Neuropsychologist Relationship Specialty Start Date End Date Matias Tan MD [address] [facility] [place] [address] PCP - General Family Medicine 10/24/19 documented as of this encounter
--- OUTSIDE RECORDS SUMMARY | 2025-02-13 06:05 | XMS_ITS | Encounter Summary ---
Author Organization [facility] [place], Address [address] [place] [address] Phone Care Team Providers Care Malt House Loader Name Role Phone Matias Tan MD Primary Care Provider +1- [phone] Reason for Visit * Reason Comments Med Refill Encounter Details Date Type Department Care Team (Late st Contact Info) Description 12/28/2024 Refill [facility] [address] [place] [phone] Sawyer Davis MD [address] [facility] [place] [address] Social History Tobacco Use Types [...] visit [facility] - Vascular Access Center [address] [place] [address] documented as of this encounter Procedures Procedure Name Priority Date/Time Associated Diagnosis Comments HEMATOLOGY Routine 12/28/2024 documented in this encounter Results * (ABNORMAL) HEMATOLOGY (12/28/2024) Hemoglobin 11.5(L) 14.0 - 18.0 g/dL [facility] Hemoglobin x 3 34.5(L) 42.0 - 54.0 % [facility] 12/28/2024 12/29/2024 9:1 7 AM EDT Narrative [facility] - 12/29/2024 Unless otherwise specified, test(s) performed at: [facility], [address] [place] [address] STREET SWEEPER OPERATOR: Blane Ramsay M.D. For any questions, please call customer service at FREQUENCY:OTHER Resulting Agency Comment Specimen source: Blood us Denys Mueller MD LAB BLOOD ORDERABLES Final Re sult [employer] See order comments or contact performing lab [facility], [place] documented in this encounter Visit Diagnoses Not on filedocumented in this encounter Care Teams Malt House Loader Relationship Specialty Start Date End Date Matias Tan MD [facility] [address] [facility] [place] [phone] PCP - General Family Medicine 10/24/19 documented as of this encounter
--- OUTSIDE RECORDS SUMMARY | 2025-02-13 06:05 | XMS_ITS | Encounter Summary ---
Author Organization [facility], Address [address] [place] [address] Phone Care Team Providers Care Political Theory Professor Name Role Phone Matias Tan MD Primary Care Provider +1- [phone] Reason for Visit * Reason Onset Date Comments Med Refill 12/20/2022 Encounter Details Date Type Department Care Team (Late st Contact Info) Description 12/20/2022 Refill [facility] - Vascular Access Center [address] [place] [address] Kb Sung MD Social History Tobacco Use [...] visit [facility] - Vascular Access Center [address] [place] [address] documented as of this encounter Visit Diagnoses Not on filedocumented in this encounter Care Teams Political Theory Professor Relationship Specialty Start Date End Date Matias Tan MD [facility] [address] [facility] [place] [address] PCP - General Family Medicine 10/24/19 documented as of this encounter
--- OUTSIDE RECORDS SUMMARY | 2025-02-13 06:05 | XMS_ITS | Encounter Summary ---
Author Organization [facility] [place], Address [address] [place] [address] Phone Care Team Providers Care Healthcare Advisory Services Manager Name Role Phone Matias Tan MD Primary Care Provider +1- [phone] Reason for Visit * Reason Onset Date Comments Med Refill 09/24/2022 Encounter Details Date Type Department Care Team (Late st Contact Info) Description 09/24/2022 Refill [facility] - Vascular Access Center [address] [place] [address] Ferdinand Monroe MD [address] [place] [phone] Social History Tobacco Use Types Packs/Day Years [...] visit [facility] - Vascular Access Center [address] [place] [address] [place] [phone] documented as of this encounter Visit Diagnoses Not on filedocumented in this encounter Care Teams Healthcare Advisory Services Manager Relationship Specialty Start Date End Date Matias Tan MD [address] [facility] [place] [address] PCP - General Family Medicine 10/24/19 documented as of this encounter
--- OUTSIDE RECORDS SUMMARY | 2025-02-13 06:05 | XMS_ITS | Clinical Summary ---
Author Organization [facility], Address [address] [place] [address] Phone Care Team Providers Care Manager It Security Name Role Phone Matias Tan MD Primary Care Provider [phone]- [phone] Allergies Active Allergy Reactions Criticality Noted Date [...] HOURS NEEDED FOR PAIN 2 Active B Gsvljgu-Q-Vrfoa Acid (Dialyvite 800) 0.8 MG tablet Take [...] Only [facility] [address] [address] Denys Mueller MD 01/31/2025 Treatment [facility] [address] [place] [address] Guanako Mercer MD End stage renal disease; Dependence on renal dialysis 01/04/2025 Orders Only [facility] [address] [address] Denys Mueller MD 01/02/2025 Orders Only [facility] [address] [address] Denys Mueller MD 01/02/2025 Treatment [facility] [address] [place] [address] Tiffani Olson FNP-C End stage renal disease; Dependence on renal dialysis 12/28/2024 Treatment [facility] [address] [place] [address] Tiffani Olson FNP-C End stage renal disease; Dependence on renal dialysis 12/28/2024 Refill [facility] [address] [address] Sawyer Davis MD 12/26/2024 Orders Only [facility] [address] [address] Denys Mueller MD 12/23/2024 Treatment [facility] [address] [place] [address] Tiffani Olson FNP-C End stage renal disease; Dependence on renal dialysis 12/21/2024 Orders Only [facility] [address] [address] Denys Mueller MD 12/19/2024 Orders Only [facility] [address] [place] [address] Denys Mueller MD 12/16/2024 Treatment [facility] [address] [place] [address] Sawyer Davis MD End stage renal disease; Dependence on renal dialysis 12/14/2024 Orders Only [facility] [address] [address] Denys Mueller MD 12/14/2024 Treatment [facility] [address] [place] [address] Tiffani Olson FNP-C 12/13/2024 Treatment [facility] [address] [place] [address] Missy Izquierdo APRN 12/12/2024 Orders Only [facility] [address] [address] Denys Mueller MD 12/07/2024 Orders Only [facility] [address] [address] Denys Mueller MD 12/07/2024 Treatment [facility] [address] [place] [address] Tiffani Olson FNP-C 11/30/2024 Orders Only [facility] [address] [address] Denys Mueller MD 11/23/2024 Orders Only [facility] [address] [address] Denys Mueller MD 11/23/2024 Treatment [facility] [address] [place] [address] Tiffani Olson FNP-C 11/16/2024 Treatment [facility] [address] [place] [address] Tiffani Olson FNP-C 11/16/2024 Telephone [facility] [address] [place] [address] [place] [address] Tanya Chi post op call 11/15/2024 9:00 AM EST Procedure visit [facility] [address] [place] [address] [place] [address] Ferdinand Monroe MD End stage renal disease (HCC) (Primary Dx); Stenosis of other vascular prosthetic devices, implants and grafts, initial encounter (HCC) from Last 3 Months Immunizations Immunization Administration [...] visit [facility] - [facility] [address] [place] [address] Health Maintenance Due Date Last [...] MD LAB BLOOD ORDERABLES Final Re sult [facility] See order comments or contact performing lab Unknown, [place] * POST CHEMISTRY (02/03/2025) Only the most recent of3 resultswithin the time period is included. BUN Post Dialysis 8 6 - 19 mg/dL [facility] 02/03/2025 02/07/2025 8:5 8 AM EDT Narrative [facility] - 02/07/2025 Unless otherwise specified, test(s) performed at: [facility], [address] [place] [id number] FOREST EXAMINER: Blane Ramsay M.D. For any questions, please call customer service at FREQUENCY:MONTHLY Resulting Agency Comment Specimen source: Plasma Denys Mueller MD LAB BLOOD ORDERABLES Final Re sult Performing Organization Address [facility] de Phone Number [facility] See order comments or contact performing lab Unknown, [place] * IMMUNO CHEMISTRY (02/03/2025) Only the most recent of3 resultswithin the time period is included. [facility] Hep B Surface Ag Negative Negative [facility] 02/03/2025 02/07/2025 8:4 7 AM EDT Narrative [facility] - 02/07/2025 Unless otherwise specified, test(s) performed at: [facility], [address] [place], [place] [id number] FOREST EXAMINER: Blane Ramsay M.D. For any questions, please call customer service at FREQUENCY:MONTHLY Resulting Agency Comment Specimen source: Serum Denys Mueller MD LAB BLOOD ORDERABLES Final Re sult Performing Organization Address [facility] de Phone Number [facility] [employer] [facility] See order comments or contact performing lab Unknown, [place] * (ABNORMAL) HEMATOLOGY (02/03/2025) Only the most recent of9 resultswithin the time period is included. [facility] Hemoglobin 8.0(L) 14.0 - 18.0 g/dL [facility] Comment: Verified by repeat analysis. Hemoglobin x 3 24(L) 42.0 - 54.0 % [facility] 02/03/2025 02/07/2025 9:4 8 AM EDT Narrative [facility] - 02/07/2025 Unless otherwise specified, test(s) performed at: [facility], [address] [place] [id number] FOREST EXAMINER: Blane Ramsay M.D. For any questions, please call customer service at FREQUENCY:MONTHLY Resulting Agency Comment Specimen source: Blood Denys Mueller MD LAB BLOOD ORDERABLES Final Re sult Performing Organization Address [facility] de Phone Number [facility] See order comments or contact performing lab Unknown, [place] * (ABNORMAL) [facility] Chemistry (02/03/2025) Only the most recent of13 [...] 02/07/2025 Unless otherwise specified, test(s) performed at: [facility], [address] [place] [address] FOREST EXAMINER: Blane Ramsay M.D. For any questions, please call customer service at FREQUENCY:MONTHLY Resulting Agency Comment Specimen source: Serum us Denys Mueller MD LAB BLOOD ORDERABLES Final Re sult Performing Organization Address City/[facility]/ZIP Co de Phone Number [facility] See order comments or contact performing lab Unknown, [place] * [facility] Results (02/03/2025) Only the most recent of3 resultswithin the time period is included. Pathologist [facility] eKt/V ([place]) 1.59 [facility] WSTDKT/V 0.8 [facility] spKt/V (Daugirdas II) 1.82 [facility] 02/03/2025 02/03/2025 [facility] Ordering Provider LAB BLOOD ORDERABLES Final Result Performing Organization Address [facility] de Phone Number [facility] Contact Performing lab Unknown, [place] * SPECIAL CHEMISTRY (11/16/2024) Only the most recent of2 resultswithin the time period is included. [facility] Vitamin D, 25-OH, Total 66.0 30.0 - 100.0 ng/mL [employer] Comment: Please Note:? Effective August 17, 2023, the methodology for this test has changed to the [facility]. 11/16/2024 11/18/2024 7:5 9 AM EST [facility]ative [facility]18[facility]24 Unless otherwise specified, test(s) performed at: [facility], [address] [place] [id number] FOREST EXAMINER: Blane Ramsay M.D. For any questions, please call customer service at FREQUENCY:OTHER Resulting Agency Comment Specimen source: Serum Denys Mueller MD LAB BLOOD BANK TEST ORDERABLE S Final Result Performing Organization Address [facility] Co de Phone Number [facility] [employer] See order comments or contact performing lab Unknown, [place] from Last 3 Months or Most Recently Relevant to Health Maintenance Insurance Medicare [facility] Member Subscriber Plan / Payer (Ef fective 2020-) Name:Emma Wick Relation to Subscriber:Self Name:Emma Wick Payer ID:[id number] (NAIC) Group ID:Not on file Type:Not on file Address: [place] [phone] Medicare [facility] Care Teams Manager It Security Relationship Specialty Start Date End Date Matias Tan MD [address] [place] [address] PCP - General Family Medicine 10/24/19
[2025-02-13 06:07] LABS: Basophils Absolute Auto 0.1 X10*3/uL (0.0-0.2); Basophils Percent Auto 0.4 % (0-2); Eosinophils Absolute Auto 0.4 X10*3/uL (0.0-0.4); Eosinophils Percent Auto 3.5 % (0-4); Hematocrit 23.2 % (42.0-52.0); Hemoglobin 8.2 g/dl (14.0-18.0); Imm Gran Abs Auto 0.42 X10*3/uL (0.00-0.03); Imm Gran Pct Auto 3.5 % (0.0-0.4); Lymphocytes Absolute Auto 1.5 X10*3/uL (1.2-4.9); MANUAL DIFF FLAG SCAN; Mean Corpuscular HGB Conc 35.3 g/dl (31.0-36.0); Mean Corpuscular Hemoglobin 31.5 pg (27.0-33.0); Mean Corpuscular Volume 89.2 fL (80.0-98.0); Monocytes Absolute Auto 1.6 X10*3/uL (0.1-1.2); Monocytes Percent Auto 13.1 % (2-11); Neutrophils Absolute Auto 7.9 x10*3/uL (2.0-8.3); Neutrophils Percent Auto 66.5 % (45-73); Platelet Count 319 X10*3/uL (160-400); Red Cell Distribution Width 15.1 % (11.0-16.0); SCAN SMEAR FLAG 1; White Blood Count 11.9 X10*3/uL (4.8-10.8)
[2025-02-13 06:42] LABS: Anion Gap 22 (12-20); Blood Urea Nitrogen 77 mg/dL (9-16); Calcium 8.1 mg/dL (8.4-10.2); Carbon Dioxide 19 mmol/L (22-29); Chloride 88 mmol/L (96-108); Estimated Glomerular Filt Rate 4; Glucose Random 115 mg/dL (60-115); Potassium 4.6 mmol/L (3.3-5.1); Sodium 124 mmol/L (135-145)
[2025-02-13 06:57] LABS: SLIDE REVIEW VERIFIED
== END 2025-02-13 05:57 | disposition home or self-care (01) ==
LOC: HO.MMNH2L 05:56
PROVIDERS: Visit Provider Student in an Organized Health Care Education/Training Program
DX: Z13.89 Encounter for screening for other disorder (principal)
CPT/HCPCS: 36415; 80048; 85025

== ENCOUNTER 2025-02-13 14:34 | Inpatient (IN) | payer MEDICARE, SELFPAY ==
[2025-02-13 14:47] VITALS: BP 135/66; PULSE 62; O2SAT 95
[2025-02-13 14:57] VITALS: BP 133/56; PULSE 64; RESP 18; TEMP 37; O2SAT 94; BMI 29.6
[2025-02-13 15:51] LABS: Hematocrit 25.6 % (42.0-52.0); Hemoglobin 9.1 g/dl (14.0-18.0); Mean Corpuscular HGB Conc 35.5 g/dl (31.0-36.0); Mean Corpuscular Hemoglobin 31.5 pg (27.0-33.0); Mean Corpuscular Volume 88.6 fL (80.0-98.0); Mean Platelet Volume 10.1 fL (9.4-12.4); Platelet Count 364 X10*3/uL (160-400); Red Blood Count 2.89 X10*6/uL (4.60-5.80); Red Cell Distribution Width 15.5 % (11.0-16.0); White Blood Count 13.7 X10*3/uL (4.8-10.8)
--- NOTE | 2025-02-13 16:15 | ED_ITS ---
HPI - Recheck/Abnormal Lab/Rx General Chief Complaint: Recheck/Abnormal Lab/Rx Stated Complaint: ABN LABS,MISSED 4 DIALYSIS APPTS,FROM SNF PER EMS Time Seen by Provider: 02/13/25 16:15 Source: patient and RN notes reviewed Mode of arrival: ambulatory Limitations: no limitations History of Present Illness ED Provider: Tiffani Verdugo PA-C HPI narrative: This is a 70-year-old male, with a past medical history significant for ESRD on HD followed by [facility], insulin dependent type 2 diabetes, hypothyroidism, hyperlipidemia, normocytic anemia of chronic disease, hypothyroidism, GERD, and mood disorder, who presents emergency department from [facility] via EMS due to abnormal labs. Per EMS he missed 4 dialysis treatments, sodium was low - per EMS was 129. Patient had outpatient labs performed at 4:00 a.m. this morning, patient's sodium 124 - with a creatinine of 12.6, baseline appears to be around 7. Creatinine on 02/08 4.89, 7.79 on February 10 on 12.63. Patient reports that he believes he only missed 2 dialysis treatments, believes they were on Thursday of last week, and Thursday. He states that he has skipped these appointments as the dialysis he had on Thursday wore him out too much?, and wanted a break. He states that he has diffuse chronic body aches, he denies any headache, dizziness, chest pain, shortness for breath, abdominal pain, nausea, vomiting or diarrhea. Does report he produces a small amount of urine. Of note, patient was admitted on February 04 due to acute hypoxic respiratory failure in the setting of recurrent bilateral pneumonia. He was discharged on February 09, 2025 and was advised to continue with dialysis on // which Fridays as Nephrology recommended, continue on Ceftin and doxycycline. He was alert and oriented x4, states that he is slightly confused given [id number] hospitalizations. Per recent hospital admission, patient was followed by Dr. Quinn and Dr. Allen patient had dialysis on Thursday (02/06) and Thursday (02/08) he had had a extra ultrafiltration on for 02/09, therefore he missed dialysis treatment on 02/10 and 02/13. MD complaint: abnormal lab Initial visit (ago): hour(s) Description of abnormal result: Hyponatremia, elevated creatinine Symptoms since prior visit: no new symptoms Context: called for abnormal lab result Associated symptoms: none Related Data Home Medications ?Medication ?Instructions ?Recorded ?Confirmed atenolol 100 mg tablet 1 tab PO DAILY 07/11/21 02/13/25 blood sugar diagnostic (FreeStyle 07/11/21 10/30/24 Lite Strips) levothyroxine 137 mcg tablet 1 tab PO DAILY@0600 07/11/21 02/13/25 pen needle, diabetic 31 gauge x 07/11/21 10/30/2403/03 (BD Ultra-Fine Short Pen Needle) amlodipine 5 mg tablet 5 mg PO BID 09/03/23 02/13/25 atorvastatin 40 mg tablet 40 mg PO BEDTIME 02/22/24 02/13/25 sodium zirconium cyclosilicate 10 10 g PO SUTUTHSA@0900 06/19/24 02/13/25 gram oral powder packet (Lokelma) alprazolam 0.5 mg tablet 0.5 mg PO DAILY PRN anxiety attack 10/30/24 02/13/25 alprazolam 2 mg tablet 2 mg PO BID 10/30/24 02/13/25 insulin lispro 100 unit/mL See Protocol subcut TIDAC PRN 10/30/24 02/13/25 subcutaneous pen (Humalog KwikPen Blood Glucose (U-100) Insulin) losartan 100 mg tablet 100 mg PO DAILY 01/09/25 02/13/25 sevelamer carbonate 800 mg tablet 1,600 mg PO TIDWM 01/09/25 02/13/25 albuterol sulfate 2.5 mg/3 mL 2.5 mg inhalation Q6H PRN Wheezing 01/18/25 02/13/25 (0.083 %) solution for nebulization albuterol sulfate 90 mcg/actuation 2 puff inhalation Q6H PRN 01/18/25 02/13/25 aerosol inhaler (Ventolin HFA) Shortness Of Breath Or Wheezing calcium carbonate (Tums) 200 mg PO Q8H PRN UPSET STOMACH 01/18/25 02/13/25 cholecalciferol (vitamin D3) 125 125 mcg PO SUTUTHSA@0900 01/18/25 02/13/25 mcg (5,000 unit) tablet (Vitamin D3) melatonin 5 mg tablet 5 mg PO BEDTIME PRN Insomnia 01/18/25 02/13/25 quetiapine 25 mg tablet (Seroquel) 25 mg PO Q12H PRN Agitation 01/18/25 02/13/25 vitamin B complex and vitamin C 1 cap PO DAILY 01/18/25 02/13/25 no.20-folic acid 1 mg capsule acetaminophen 325 mg tablet 650 mg PO Q6H PRN Fever Or Pain 02/13/25 02/13/25 bisacodyl 10 mg rectal suppository 10 mg MA DAILY PRN constipation, 02/13/25 02/13/25 MOM not effective after 24 hrs cefuroxime axetil 250 mg tablet 250 mg PO DAILY 02/13/25 02/13/25 esomeprazole magnesium 40 mg 40 mg PO BID@0630,1630 02/13/25 02/13/25 capsule,delayed release folic acid 1 mg tablet 1 mg PO DAILY 02/13/25 02/13/25 Previous Rx's ?Medication ?Instructions ?Recorded hydromorphone 4 mg tablet 4 mg PO Q3H PRN Severe Pain (Scale 01/12/25 Score 7-10) #20 tabs insulin glargine 100 unit/mL 7 unit (0.07 mL) subcut BEDTIME 02/09/25 subcutaneous solution (Lantus #10 mL U-100 Insulin) Allergies Allergy/AdvReac Type Severity Reaction Status Date / Time Penicillins [PENICILLINS] Allergy Unknown RASH Verified 02/13/25 14:58 tramadol [From ULTRAM] Allergy Unknown RASH Verified 02/13/25 14:58 trazodone [TRAZODONE] Allergy Unknown PRIAPISM Verified 02/13/25 14:58 risperidone [RISPERIDONE] AdvReac Severe dizzy, EPS Verified 02/13/25 14:58 Review of Systems 2 Review of Systems: Yes all other systems are reviewed and are negative Constitutional: Constitutional: Reports as per [facility] Past Medical History Medical History End stage renal disease on dialysis End stage kidney disease Occult blood positive stool Anemia Internal jugular vein thrombosis Abnormality of gait ESRD needing dialysis Secondary hyperparathyroidism (of renal origin) Anemia in chronic kidney disease DONIS (acute kidney injury) Diabetes Kidney failure HTN (hypertension) Social History Social History Household Members: Family Housing: House Are you a primary home visit field care manager to a significant other at home: No Do you presently have visiting nurse or other home services: No Alcohol intake: former Comment: sitter in place Patient Tobacco Use Status: Never used Tobacco Cigarette Packs Per Day: 0 Cigarettes Per Day: 0.0 Years Smoked: NA Smoked in Last 30 Days: No e-Cigarette/Vaping Use: Never Used Second Hand Smoke Exposure: No Use of substances other than those prescribed or required for medical reasons: No Advance Directives: Yes Advance Directives on File: Yes Advance Directives Date on File: 09/07/23 Nutrition Risks: No Nutritional Risk service: No Physical Exam 2 Vital Signs: Vital Signs: Last Vital Signs Temp 99.3 F 02/14/25 16:06 Pulse 79 02/14/25 16:06 Resp 14 02/14/25 16:06 BP 126/57 L 02/14/25 16:06 Pulse Ox 100 02/14/25 16:06 O2 Del Method Room Air 02/14/25 16:06 BMI result Body Mass Index 29.6 Const: Other: Eyes closed however alert General: cooperative, comfortable and no acute distress O rientation/consciousness: patient oriented x3 Limitations: no limitations HEENT: Head: Yes normal to inspection, Yes normocephalic and Yes atraumatic Ears: hearing grossly normal bilaterally General nose exam: Normal external nose present Face and sinus: Yes normal facial exam Mouth: Normal oral and palatal mucosa present, oropharynx normal and moist mucous membranes Throat: Yes posterior oropharynx normal Eyes: General: appearance normal, both eyes and all related structures E yelids: Yes eyelids normal Conjunctivae: conjunctivae normal Sclerae: s clerae normal Pupils: Equal, round and reactive pupils present EOM: EOMs intact bilaterally Neck: Neck: Yes normal visual inspection, Yes full ROM and Yes no lymphadenopathy Lymphatic: no lymphadenopathy noted Chest: Chest palpation & inspection: normal inspection of the chest Resp: Effort & Inspection: normal respiratory effort and able to speak in complete sentences Auscultation: clear to auscultation bilaterally, no crackles, no rales, no rhonchi and no wheezes Cardio: Rate: regular rate Rhythm: regular rhythm Heart sounds: S1 normal heart sound present and S2 normal heart sound present GI: Other: Abdomen is soft, nontender, nondistended Inspection: Yes normal to inspection Skin: General skin exam: no rashes or lesions noted Trauma: no lacerations or abrasions Wounds: no wounds Neuro: General: patient oriented x3 and moves all extremities Cranial nerves: Yes Equal, round and reactive pupils present Extrem: Other: No pitting edema, no calf tenderness. General: Yes normal to inspection Right upper extremity: normal to inspection Left upper extremity: normal to inspection Right lower extremity: normal to inspection Left lower extremity: normal to inspection Course Reevaluation(s) Reevaluation #1: Re-attempted for CMP, however labs appear to be clotted again. Attempted redraw will be performed. Time: 17:35 Reevaluation #2: Labs returned, sodium 126, chloride 86, anion gap 23, BUN 78, creatinine 12.87, patient needing dialysis. I discussed case with Dr. Allen, he has no way of arranging outpatient hemodialysis for tomorrow as he was a Thursday schedule. He states that he can be dialyzed tomorrow and then discharge. Dr. Allen states that he does need dialysis tomorrow. Dr. Bobby will admit to the hospitalist service for further management and dialysis for tomorrow morning. Time: 19:10 Medications Administered Generic Name Dose Route Start Last Admin Trade Name Jamq PRN Reason Stop Dose Admin Acetaminophen 650 mg 02/13/25 20:32 02/14/25 13:32 Acetaminophen 325 Mg Tablet PO 650 mg Q6H PRN Administration Pain, Mild 1-3,fever,headache Alprazolam 0.5 mg 02/14/25 12:21 02/14/25 15:33 Alprazolam 0.5 Mg Tablet PO 0.5 mg DAILY PRN Administration anxiety attack Heparin Sodium (Porcine) 5,000 unit 02/13/25 21:00 02/14/25 08:01 Heparin Sodium,Porcine 5,000 Unit/Ml Vial SUBCUT 5,000 unit Q12H FRANCINE Administration Insulin Glargine 5 unit 02/13/25 21:20 02/13/25 21:57 Insulin Glargine,Hum.Rec.Anlog 100 Unit/Ml 10 Ml Vial SUBCUT 5 unit BEDTIME FRANCINE Administration Insulin Human Lispro 0 unit 02/13/25 21:00 02/14/25 11:53 Insulin Lispro 100 Unit/Ml 3 Ml Vial SUBCUT Not Given QIDACHS [facility] Protocol Morphine Sulfate 4 mg 02/13/25 20:32 02/14/25 14:48 Morphine Sulfate 4 Mg/Ml Cartridge IVPUSH 4 mg Q4H PRN Administration Pain, Severe (Pain Scale 7-10) Protocol Omeprazole 20 mg 02/14/25 16:30 02/14/25 16:09 Omeprazole 20 Mg Capsule. PO 20 mg BID@0630,1630 [facility] Administration Sevelamer Carbonate 1,600 mg 02/14/25 17:00 02/14/25 16:09 Sevelamer Carbonate Tablet 800 Mg Tablet PO 1,600 mg TIDWM FRANCINE Administration Sodium Chloride 3 ml 02/14/25 00:00 02/14/25 16:09 0.9 % Sodium Chloride Flush 3 Ml Syringe IVFLUSH 3 ml QSHIFT [facility] Administration Discontinued Medications Generic Name Dose Route Start Last Admin Trade Name Freq PRN Reason Stop Dose Admin Dextrose 25 gm 02/14/25 06:24 02/14/25 06:46 Dextrose 50 % 25 Gm/50 Ml Syringe IVPUSH 02/14/25 06:25 25 gm ONCE ONE Administration Calcium Gluconate 2 gm in 100 mls @ 50 mls/hr 02/14/25 06:24 02/14/25 08:44 Calcium Gluconate IV 02/14/25 08:23 Infused ONCE ONE Infusion Insulin Human Regular 5 unit 02/14/25 06:24 02/14/25 06:46 Insulin Regular, Human 100 Unit/Ml 10 Ml Vial IVPUSH 02/14/25 06:25 5 unit ONCE ONE Administration Morphine Sulfate 4 mg 02/13/25 18:36 02/13/25 18:41 Morphine Sulfate 4 Mg/Ml Cartridge IVPUSH 02/13/25 18:37 4 mg ONCE ONE Administration Protocol Sodium Zirconium Cyclosilicate 10 gm 02/14/25 06:24 02/14/25 06:44 Sodium Zirconium Cyclosilicate 10 Gm Powd.Pack PO 02/14/25 06:25 10 gm ONCE ONE Administration Medical Decision Making Medical Decision Making MDM Narrative: This is a 70-year-old male, with a history of ESRD on HD followed by [facility], insulin dependent type 2 diabetes, hypothyroidism, hyperlipidemia, normocytic anemia of chronic disease, hypothyroidism, GERD, and mood disorder, who presents emergency department with concerns for abnormal labs. Per EMS, patient has missed 4 dialysis appointments. Patient reports that he only missed 2. On arrival, vital signs within normal limits. He is speaking in full sentences appears to be under no acute distress. Patient resting comfortably in bed, alert and oriented x4. He was neurologically intact with no focal deficits. Prior to my evaluation, CBC returned, he has slight leukocytosis at 13.7, with a normocytic anemia with an H&H of 9.1/25.6. Chemistry with still pending, I called down to the lab and the lab clotted and was requesting a redraw. Will redraw and sent for 2nd lab. Denies any chest pain or shortness for breath. He does endorse chronic body pain. Per recent hospital admission, patient was followed by Dr. Quinn and Dr. Allen patient had dialysis on Thursday (02/06) and Thursday (02/08) he had had a extra ultrafiltration on for 02/09, therefore he missed dialysis treatment on 02/10 and 02/13. Differential Diagnosis Differential Diagnoses: The differential diagnosis associated with the presentation includes CKD, acute renal failure, hyponatremia Admission/Observation Consideration of admission/observation: Escalation of care including admission/observation considered Consult Healthcare Provider Management of the patient was discussed with: Power Brake Rebuilder Dr. Allen - nephrology Lab Data MDM Lab Attestation statement: I reviewed the patient's lab results. See course comment 02/14/25 03:51 02/14/25 10:59 Labs: Lab Results 02/13/25 02/13/25 02/13/25 Range/Units 15:44 18:32 19:31 WBC 13.7 H (4.8-10.8) X10*3/uL RBC 2.89 L (4.60-5.80) X10*6/uL Hgb 9.1 L (14.0-18.0) g/dl Hct 25.6 L (42.0-52.0) % MCV 88.6 (80.0-98.0) fL MCH 31.5 (27.0-33.0) pg MCHC 35.5 (31.0-36.0) g/dl RDW 15.5 (11.0-16.0) % Plt Count 364 (160-400) X10*3/uL MPV 10.1 (9.4-12.4) fL Immature Gran % (Auto) Cancelled Neut % (Auto) Cancelled Lymph % (Auto) Cancelled [place] % (Auto) Cancelled Eos % (Auto) Cancelled Baso % (Auto) Cancelled Lymph # (Auto) Cancelled [place] # (Auto) Cancelled Eos # (Auto) Cancelled Baso # (Auto) Cancelled Abs Immat Gran (auto) Cancelled Absolute Neuts (auto) Cancelled Absolute Nucleated RBC 0.000 (0.0-0.012) X10*3/uL Nucleated RBC % (auto) 0.0 (0.0-0.2) /100WBC Neutrophils % (Manual) 70 (45-73) % Band Neutrophils % 0 L (3-5) % Lymphocytes % (Manual) 12 L (20-40) % Atypical Lymphs % (Man) 3 (0-6) % Monocytes % (Manual) 9 (2-11) % Eosinophils % (Manual) 6 H (0-4) % Abs Neuts (Manual) 9.6 H (2.0-8.3) X10*3/uL Lymphocytes # (Manual) 1.6 (1.2-4.9) X10*3/uL Atyp Lymphs # (Manual) 0.4 x10*3/uL Monocytes # (Manual) 1.2 (0.1-1.2) X10*3/uL Eosinophils # (Manual) 0.8 H (0.0-0.4) X10*3/uL Hypersegmented Neuts PRESENT Toxic Vacuolation PRESENT Platelet Estimate NORMAL (NORMAL) Plt Morphology Comment NORMAL RBC Morphology NOTED Microcytosis 1+ (5-14) /OIF Spherocytes 1+ (0-2) /OIF Kelsey Cells 1+ (0-2) /OIF Smear Tech's Comments VERIFIED Sodium 126 L (135-145) mmol/L Potassium 4.9 (3.3-5.1) mmol/L Chloride 86 L (96-108) mmol/L Carbon Dioxide 22 (22-29) mmol/L Anion Gap 23 H (12-20) BUN 78 H (9-16) mg/dL Creatinine 12.87 H* (0.5-1.4) mg/dL Estim Creat Clear Calc 5.3 Estimated GFR 4 Random Glucose 112 (60-115) mg/dL Calcium 8.3 L (8.4-10.2) mg/dL Total Bilirubin 0.5 (0.0-1.0) mg/dL AST 22 (5-37) U/L ALT 6 (0-40) U/L Alkaline Phosphatase 76 (39-117) U/L Total Protein 6.3 L (6.5-8.0) g/dL Albumin 3.3 L (3.5-5.0) g/dL Urine Color Yellow Urine Appearance Clear Urine pH 7.0 (5.0-9.0) Ur Specific [place] 1.010 (1.005-1.025) Urine Protein 100 (2+) H (Neg-Trace) mg/dL Urine Glucose (UA) 100 H (Negative) mg/dL Urine Ketones Negative (Negative) mg/dL Urine Blood Negative (Negative) Urine Nitrite Negative (Negative) Ur Leukocyte Esterase Negative (Negative) Urine RBC 0-2 (0-2) /HPF Urine WBC 0-5 (0-5) /HPF Ur Squamous Epith Cells 0-2 (0-2) /HPF Urine Bacteria None Seen (None Seen) Hyaline Casts 0-2 (0-2) /LPF Independent Interpretation I performed an independent interpretation of an: EKG Interpretation: EKG normal sinus rhythm at a ventricular rate of 67 beats per minute, no ST elevation or depression. No STEMI. External Record Review External record reviewed: Inpatient record Critical Care Time Critical Care Time Critical Care Time: Yes Total Critical Care Time: 35 Attestation: I have personally provided critical care time exclusive of time spent on separately billable procedures. Time includes review of lab data, radiology results, discussion with consultants, and monitoring for potential decompensation. Intervention performed as documented. Discharge Plan Discharge Clinical Impression: End stage renal disease on dialysis Patient Disposition: Admitted As Inpatient
--- NOTE | 2025-02-13 16:57 | ECG_ITS ---
Test Reason : ABN LABS Blood Pressure : */* mmHG Vent. Rate : 67 BPM Atrial Rate : 67 BPM P-R Int : 160 ms QRS Dur : 94 ms QT Int : 450 ms P-R-T Axes : 53 24 39 degrees QTcB Int : 475 ms Normal sinus rhythm Cannot rule out Anterior infarct , age undetermined Abnormal ECG When compared with ECG of 04-Feb-2025 03:42, Non-specific change in ST segment in Inferior leads Nonspecific T wave abnormality no longer evident in Anterior leads Referred By: Tiffani Verdugo Electronically Signed By: Satinder Lyn
[2025-02-13 17:06] LABS: Atypical Lymph Absolute Manual 0.4 x10*3/uL; Atypical Lymphs Percent Manual 3 % (0-6); Eosinophils Absolute Manual 0.8 X10*3/uL (0.0-0.4); Eosinophils Percent Manual 6 % (0-4); Lymphocytes Absolute Manual 1.6 X10*3/uL (1.2-4.9); Lymphocytes Percent Manual 12 % (20-40); Microcytosis 1+ (5-14) /OIF; Monocytes Absolute Manual 1.2 X10*3/uL (0.1-1.2); Monocytes Percent Manual 9 % (2-11); Neutrophils Percent Manual 70 % (45-73); RBC Morphology NOTED
[2025-02-13 17:07] LABS: Burr Cells 1+ (0-2) /OIF; Platelet Estimate NORMAL (NORMAL); Platelet Morphology Comment NORMAL; Spherocytes 1+ (0-2) /OIF
[2025-02-13 17:08] LABS: Hypersegmented Neutrophils PRESENT; Toxic Vacuolation PRESENT
[2025-02-13 17:09] LABS: Band Neutrophils Percent 0 % (3-5); Neutrophils Absolute Manual 9.6 X10*3/uL (2.0-8.3); SLIDE REVIEW VERIFIED
[2025-02-13 17:28] VITALS: BP 137/54; PULSE 65; RESP 11; TEMP 37; O2SAT 98
--- OUTSIDE RECORDS SUMMARY | 2025-02-13 18:35 | XMS_ITS | Encounter Summary ---
Author Organization [facility], Address [address] [place] [address] Phone Care Team Providers Care Vacuum Repairer Name Role Phone Matias Tan MD Primary Care Provider +1- [phone] Reason for Visit * Reason Comments Med Refill Encounter Details Date Type Department Care Team (Late st Contact Info) Description 09/24/2023 Refill [facility] [address] [place] [phone] Denys Mueller MD [address] [place] [address] Social History Tobacco Use Types [...] visit [facility] [address] [place] [phone] documented as of this encounter Visit Diagnoses Not on filedocumented in this encounter Care Teams Vacuum Repairer Relationship Specialty Start Date End Date Matias Tan MD [address] [place] [address] PCP - General Family Medicine 10/24/19 documented as of this encounter
--- OUTSIDE RECORDS SUMMARY | 2025-02-13 18:35 | XMS_ITS | Encounter Summary ---
Author Organization [facility], Address [address] [place] [address] Phone Care Team Providers Care Supervisor Electrolytic Tinning Name Role Phone Matias Tan MD Primary Care Provider +1- [phone] Reason for Visit * Reason Onset Date Comments Med Refill 06/24/2022 Encounter Details Date Type Department Care Team (Late st Contact Info) Description 06/24/2022 Refill [facility], [address] [place] [phone] Guanako Mercer MD [address] [place] [phone] Social History Tobacco Use Types Packs/Day Years [...] [facility] [address] [place] [phone] documented as of this encounter Visit Diagnoses Not on filedocumented in this encounter Care Teams Supervisor Electrolytic Tinning Relationship Specialty Start Date End Date Matias Tan MD [address] [place] [address] PCP - General Family Medicine 10/24/19 documented as of this encounter
--- OUTSIDE RECORDS SUMMARY | 2025-02-13 18:35 | XMS_ITS | Encounter Summary ---
Author Organization [facility], Address [address] [place] [address] Phone Care Team Providers Care Computer Teacher Name Role Phone Matias Tan MD Primary Care Provider +1- [phone] Reason for Visit * Reason Comments Med Refill Encounter Details Date Type Department Care Team (Late st Contact Info) Description 09/24/2023 Refill [facility] [address] [place] [address] Gabriela Hernandez [...] visit [facility] [place] - [facility] [address] [place] [address] documented as of this encounter Visit Diagnoses Not on filedocumented in this encounter Care Teams Computer Teacher Relationship Specialty Start Date End Date Matias Tan MD [facility] [address] [place] [address] PCP - General Family Medicine 10/24/19 documented as of this encounter
--- OUTSIDE RECORDS SUMMARY | 2025-02-13 18:35 | XMS_ITS | Encounter Summary ---
Author Organization [facility], Address [address] [place] [address] Phone Care Team Providers Care Dining Service Worker Name Role Phone Matias Tan MD Primary Care Provider +1- [phone] Encounter Details Date Type Department Care Team (Late st Contact Info) Description 01/10/2022 Documentation Only [facility], [address] [place] [phone] [address] [place] [address] Social History Tobacco Use Types [...] visit [facility] [address] [place] [phone] documented as of this encounter Visit Diagnoses Not on filedocumented in this encounter Care Teams Dining Service Worker Relationship Specialty Start Date End Date Matias Tan MD [address] [place] [address] PCP - General Family Medicine 10/24/19 documented as of this encounter
--- OUTSIDE RECORDS SUMMARY | 2025-02-13 18:35 | XMS_ITS | Clinical Summary ---
Author Organization [address] [facility] Address [address] [place] [address] Phone Care Team Providers Care Associate Editor Name Role Phone Yulia Smart MD Primary Care Provider [phone] Encounters Date Type Department Care Team Description 01/18/2025 Lab Requisition [facility] Lab [address] [place] [phone] Yulia Smart MD Encounter for other general examination 01/14/2025 Lab Requisition [facility] Lab [address] [place] [phone] Yulia Smart MD Encounter for other general examination 01/13/2025 Lab Requisition [facility] Lab [address] [place] [phone] Yulia Smart MD Encounter for other general [...] LAB HEMETOLOGY METHOD 01/18/2025 7:10 AM EDT [facility] RBC 3.10(L) 4.50 - 5.50 M/mcL LAB HEMETOLOGY METHOD 01/18/2025 7:10 AM EDT [facility] Hemoglobin 9.5(L) 13.5 - 17.5 g/dL LAB HEMETOLOGY METHOD 01/18/2025 7:10 AM EDT [facility] LAB Hematocrit 27.0(L) 42.0 - 54.0 % LAB HEMETOLOGY METHOD 01/18/2025 7:10 AM [facility] LAB MCV 87.1 79.0 - 98.0 FL LAB HEMETOLOGY METHOD 01/18/2025 7:10 AM [facility] LAB MCH 30.6 27.0 - 32.0 pcg LAB HEMETOLOGY METHOD 01/18/2025 7:10 AM [facility] LAB MCHC 35.2 32.0 - 37.0 g/dL LAB HEMETOLOGY METHOD 01/18/2025 7:10 AM [facility] LAB RDW 14.3 11.0 - 15.0 % LAB HEMETOLOGY METHOD 01/18/2025 7:10 AM [facility] LAB Platelets 251 130 - 400 K/mcL LAB HEMETOLOGY METHOD 01/18/2025 7:10 AM [facility] LAB MPV 11.1(H) 7.0 - 11.0 FL LAB HEMETOLOGY METHOD 01/18/2025 7:10 AM [facility] LAB NRBC 0.0 <1.0 % LAB HEMETOLOGY METHOD 01/18/2025 7:10 AM [facility] LAB NRBC Absolute 0.00 <0.10 K/mcL LAB HEMETOLOGY METHOD 01/18/2025 7:10 AM [facility] LAB Neutrophils Relative 77.1 % LAB HEMETOLOGY METHOD 01/18/2025 7:10 AM [facility] LAB Lymphocytes Relative 8.3 % LAB HEMETOLOGY METHOD 01/18/2025 7:10 AM [facility] Monocytes Relative 13.5 % LAB HEMETOLOGY METHOD 01/18/2025 7:10 AM [facility] Eosinophils Relative 0.0 % LAB HEMETOLOGY METHOD 01/18/2025 7:10 AM EDT [facility] Basophils Relative 0.0 % LAB HEMETOLOGY METHOD 01/18/2025 7:10 AM EDT [facility] Immature Granulocytes Relative 1.1 % LAB HEMETOLOGY METHOD 01/18/2025 7:10 AM EDT [facility] LAB Neutrophils Absolute 7.61(H) 1.50 - 7.00 K/mcL LAB HEMETOLOGY METHOD 01/18/2025 7:10 AM EDT [facility] Lymphocytes Absolute 0.82(L) 1.00 - 5.00 K/mcL LAB HEMETOLOGY METHOD 01/18/2025 7:10 AM EDT [facility] Monocytes Absolute 1.33(H) 0.20 - 1.00 K/mcL LAB HEMETOLOGY METHOD 01/18/2025 7:10 AM [facility] Eosinophils Absolute 0.00 0.00 - 0.50 K/mcL LAB HEMETOLOGY METHOD 01/18/2025 7:10 AM [facility] Basophils Absolute 0.00 0.00 - 0.20 K/mcL LAB HEMETOLOGY METHOD 01/18/2025 7:10 AM [facility] LAB Immature Granulocytes Absolute 0.11(H) 0.00 - 0.03 K/mcL LAB HEMETOLOGY METHOD 01/18/2025 7:10 AM [facility] LAB Blood Venous blood specimen / Unknown Venipuncture / Unknown 01/18/2025 5:06 AM EDT 01/18/2025 6:20 AM EDT us Yulia Smart MD LAB BLOOD ORDERABLES Final Resu lt [facility] [address] [place] [address], * Thyroid stimulating hormone (01/18/2025 5:06 AM EDT) TSH 1.94 0.40 - 4.00 mcIU/mL LAB CHEMISTRY METHOD 01/18/2025 9:08 AM EDT [facility] Blood Venous blood specimen / Unknown Venipuncture / Unknown 01/18/2025 5:06 AM EDT 01/18/2025 6:20 AM EDT us Yulia Smart MD LAB BLOOD ORDERABLES Final Resu lt Performing Organization Address [facility] de Phone Number [facility] [address] [place] [address], [place] [phone] * (ABNORMAL) Vitamin B12 (01/18/2025 5:06 AM EDT) [facility] Vitamin B-12 1,241(H) 250 - 900 pcg/mL LAB CHEMISTRY METHOD 01/18/2025 7:36 AM EDT [facility] Blood Venous blood specimen / Unknown Venipuncture / Unknown 01/18/2025 5:06 AM EDT 01/18/2025 6:20 AM EDT us Yulia Smart MD LAB BLOOD ORDERABLES Final Resu lt Performing Organization Address [facility] de Phone Number [facility] [address] [place] [address], [place] [phone] * Ammonia (01/18/2025 5:06 AM EDT) [facility] Ammonia 28 11 - 35 mcmol/L LAB CHEMISTRY METHOD 01/18/2025 6:53 AM EDT [facility] Blood Venous blood specimen / Unknown Venipuncture / Unknown 01/18/2025 5:06 AM EDT 01/18/2025 6:20 AM EDT us Yulia Smart MD LAB BLOOD ORDERABLES Final Resu lt Performing Organization Address City/[facility]/ZIP Co de Phone Number [facility] [address] [place] [address], * (ABNORMAL) Comprehensive metabolic panel (01/18/2025 5:06 AM EDT) Only the most recent of2 resultswithin the time period is included. Sodium 123(L) 133 - 145 mmol/L LAB CHEMISTRY METHOD 01/18/2025 7:56 AM EDT [facility] Potassium 5.2 3.5 - 5.5 mmol/L LAB [facility]STRY [facility] Chloride 89(L) 96 - 110 mmol/L LAB CHEMISTRY METHOD 01/18/2025 7:56 AM [facility] CO2 21 21 - 32 mmol/L LAB CHEMISTRY METHOD 01/18/2025 7:56 AM [facility] Anion Gap 13(H) 3 - 11 LAB CHEMISTRY METHOD 01/18/2025 7:56 AM [facility] Glucose 174(H) 70 - 100 mg/dL LAB CHEMISTRY METHOD 01/18/2025 7:56 AM [facility] BUN 96(H) 5 - 25 mg/dL LAB CHEMISTRY METHOD 01/18/2025 7:56 AM [facility] Creatinine 9.44(H) 0.70 - 1.30 mg/dL LAB CHEMISTRY METHOD 01/18/2025 7:56 AM [facility] LAB eGFR 5(L) >=60 mL/min/1. 73m2 LAB CHEMISTRY METHOD 01/18/2025 7:56 AM [facility] LAB Comment:Calculation based on the??Chronic Kidney Disease Epidemiology Collaboration (CKD-EPI) equation refit??without adjustment for race. BUN/Creatinine Ratio 10.2 LAB CHEMISTRY METHOD 01/18/2025 7:56 AM [facility] Calcium 7.8(L) 8.5 - 10.5 mg/dL LAB CHEMISTRY METHOD 01/18/2025 7:56 AM EDT [facility] AST (SGOT) 13 10 - 42 unit/L LAB CHEMISTRY METHOD 01/18/2025 7:56 AM [facility] Comment:Results verified by repeat testing ALT (SGPT) 21 10 - 60 unit/L LAB CHEMISTRY METHOD 01/18/2025 7:56 AM EDT [facility] Alkaline Phosphatase 52 42 - 121 unit/L LAB CHEMISTRY METHOD [facility]2025 [facility] Total Protein 5.3(L) 6.0 - 8.0 g/dL LAB CHEMISTRY METHOD 01/18/2025 7:56 AM [facility] Albumin 2.6(L) 3.2 - 5.0 g/dL LAB CHEMISTRY METHOD 01/18/2025 7:56 AM [facility] Total Bilirubin 1.0 0.0 - 1.4 mg/dL LAB CHEMISTRY METHOD 01/18/2025 7:56 AM [facility] Comment:Results verified by repeat testing Blood Venous blood specimen / Unknown Venipuncture / Unknown 01/18/2025 5:06 AM EDT 01/18/2025 6:20 AM EDT us Yulia Smart MD LAB BLOOD ORDERABLES Final Resu lt [facility] [address] [place] [address], * (ABNORMAL) Phosphorus (01/14/2025 5:58 AM EDT) Phosphorus 5.6(H) 2.5 - 4.5 mg/dL LAB CHEMISTRY METHOD 01/14/2025 12:17 PM EDT [facility] Blood Venous blood specimen / Unknown Venipuncture / Unknown 01/14/2025 5:58 AM EDT 01/14/2025 9:53 AM EDT us Yulia Smart MD LAB BLOOD ORDERABLES Final Resu lt Performing Organization Address City/[facility]/ZIP Co de Phone Number [facility] [address] [place] [address], [place] [phone] * (ABNORMAL) Magnesium (01/13/2025 5:26 AM EDT) [facility] Magnesium 1.8(L) 1.9 - 2.6 mg/dL LAB CHEMISTRY METHOD 01/13/2025 12:11 PM EDT [facility] Blood Venous blood specimen / Unknown Venipuncture / Unknown 01/13/2025 5:26 AM EDT 01/13/2025 10:00 AM EDT us Yulia Smart MD LAB BLOOD ORDERABLES Final Resu lt Performing Organization Address [facility] Co de Phone Number [facility] [address] [place] [address], [place] [phone] * Hemoglobin A1c (01/13/2025 5:26 AM EDT) [facility] Hemoglobin A1C 5.6 <6.5 % LAB CHEMISTRY METHOD 01/13/2025 12:43 PM EDT [facility] Mean Bld Glu Estim. 114 mg/dL LAB CHEMISTRY METHOD 01/13/2025 12:43 PM EDT [facility] Blood Venous blood specimen / Unknown Venipuncture / Unknown 01/13/2025 5:26 AM EDT 01/13/2025 10:00 AM EDT us Yulia Smart MD LAB BLOOD ORDERABLES Final Resu lt Performing Organization Address City/[facility]/ZIP Co de Phone Number [facility] [address] [place] [address], [place] [phone] from Last 3 Months Insurance [facility] [place] [address] MEDICARE Care Teams Associate Editor Relationship Specialty Start Date End Date Yulia Smart MD [address] [id number] PCP - General Hospitalist Medicine 01/13/25
--- OUTSIDE RECORDS SUMMARY | 2025-02-13 18:35 | XMS_ITS | Encounter Summary ---
Author Organization [facility] Address [address] [place] [address] Phone Care Team Providers Care Laser Engineer Name Role Phone Matias Tan MD Primary Care Provider [phone]- [phone] Reason for Visit * Reason Comments Med Refill Encounter Details Date Type Department Care Team (Late st Contact Info) Description 06/24/2022 Refill [facility] [place], [address] [place] [phone] Guanako Mercer MD [address] [address] [place] [phone] Social History Tobacco Use Types Packs/Day Years [...] visit [facility] - [facility] [address] [place] [phone] documented as of this encounter Visit Diagnoses Not on filedocumented in this encounter Care Teams Laser Engineer Relationship Specialty Start Date End Date Matias Tan MD [address] [place] [phone] PCP - General Family Medicine 10/24/19 documented as of this encounter
--- OUTSIDE RECORDS SUMMARY | 2025-02-13 18:35 | XMS_ITS | Encounter Summary ---
Author Organization [facility] [place], Address [address] [place] [address] Phone Care Team Providers Care Hospital Aides And Assistants Teacher Name Role Phone Matias Tan MD Primary Care Provider [phone]- [phone] Reason for Visit * Reason Comments Med Refill Encounter Details Date Type Department Care Team (Late st Contact Info) Description 09/25/2023 Refill [facility] [address] [place] [phone] Denys Mueller MD [address] [facility] [address] [place] [address] Social History Tobacco Use Types [...] visit [facility] [place] - [facility] [address] [place] [phone] documented as of this encounter Visit Diagnoses Not on filedocumented in this encounter Care Teams Hospital Aides And Assistants Teacher Relationship Specialty Start Date End Date Matias Tan MD [address] [place] [address] PCP - General Family Medicine 10/24/19 documented as of this encounter
--- OUTSIDE RECORDS SUMMARY | 2025-02-13 18:36 | XMS_ITS | Encounter Summary ---
Author Organization [facility] [place], Address [address] [place] [address] Phone Care Team Providers Care Program Arranger Name Role Phone Matias Tan MD Primary Care Provider [phone]- [phone] Reason for Visit * Reason Onset Date Comments Med Refill 06/08/2022 Encounter Details Date Type Department Care Team (Late st Contact Info) Description 06/08/2022 Refill [facility], [address] [place] [phone] Guanako Mercer MD [address] [place] [phone] Social History Tobacco Use Types Packs/Day Years [...] visit [facility] [address] [place] [address] documented as of this encounter Visit Diagnoses Not on filedocumented in this encounter Care Teams Program Arranger Relationship Specialty Start Date End Date Matias Tan MD [address] [facility] [place] [address] PCP - General Family Medicine 10/24/19 documented as of this encounter
--- OUTSIDE RECORDS SUMMARY | 2025-02-13 18:36 | XMS_ITS | Encounter Summary ---
Author Organization [facility] [place], Address [address] [place] [address] Phone Care Team Providers Care Drive Man Name Role Phone Matias Tan MD Primary Care Provider [phone]- [phone] Reason for Visit * Reason Onset Date Comments Med Refill 06/20/2022 Encounter Details Date Type Department Care Team (Late st Contact Info) Description 06/20/2022 Refill [facility], [address] [place] [phone] Guanako Mercer MD [address] [place] [phone] Social History Tobacco Use Types Packs/Day Years [...] visit [facility] [place] [address] [place] [address] documented as of this encounter Visit Diagnoses Not on filedocumented in this encounter Care Teams Drive Man Relationship Specialty Start Date End Date Matias Tan MD [address] [facility] [place] [address] PCP - General Family Medicine 10/24/19 documented as of this encounter
--- OUTSIDE RECORDS SUMMARY | 2025-02-13 18:36 | XMS_ITS | Encounter Summary ---
Author Organization [facility], Address [address] [place] [address] Phone Care Team Providers Care Mucker Operator Name Role Phone Matias Tan MD Primary Care Provider +1- [phone] Reason for Visit * Reason Comments Med Refill Encounter Details Date Type Department Care Team (Late st Contact Info) Description 05/08/2024 Refill [facility] [address] [place] [address] Gabriela Hernandez PA Social History Tobacco [...] visit [facility] [place], - [facility] Center [address] [place] [address] documented as of this encounter Visit Diagnoses Not on filedocumented in this encounter Care Teams Mucker Operator Relationship Specialty Start Date End Date Matias Tan MD [facility] [address] [place] [address] PCP - General Family Medicine 10/24/19 documented as of this encounter
--- OUTSIDE RECORDS SUMMARY | 2025-02-13 18:36 | XMS_ITS | Encounter Summary ---
Author Organization [facility] Address [address] [place] [address] Care Team Providers Care Sane Nurse Name Role Phone Yulia Smart MD Primary Care Provider Encounter Details Date Type Department Care Team (Late st Contact Info) Description 01/14/2025 Lab Requisition [facility] - Main Lab [address] [place] [address] Yulia Smart MD [address] [place] [address] Encounter for other general examination Social History [...] LAB CHEMISTRY METHOD 01/14/2025 12:17 PM EDT [facility] Blood Venous blood specimen / Unknown Venipuncture / Unknown 01/14/2025 5:58 AM EDT 01/14/2025 9:53 AM EDT us Yulia Smart MD LAB BLOOD ORDERABLES Final Resu lt [facility] [place] [facility] LAB [address] [place] [address], documented in this encounter Visit Diagnoses Diagnosis Encounter for other general examination documented in this encounter Care Teams Sane Nurse Relationship Specialty Start Date End Date Yulia Smart MD [address] [place] [id number] PCP - General Hospitalist Medicine 01/13/25 documented as of this encounter
--- OUTSIDE RECORDS SUMMARY | 2025-02-13 18:36 | XMS_ITS | Encounter Summary ---
Author Organization [facility] [place], Address [address] [place] [address] Phone Care Team Providers Care Escort Car Driver Name Role Phone Matias Tan MD Primary Care Provider [phone]- [phone] Reason for Visit * Reason Onset Date Comments Med Refill 12/20/2022 Encounter Details Date Type Department Care Team (Late st Contact Info) Description 12/20/2022 Refill [facility] - V[facility] Access Center [address] [place] [address] Kb Sung MD Social History Tobacco Use [...] [facility] [place] - [facility] [address] [place] [address] documented as of this encounter Visit Diagnoses Not on filedocumented in this encounter Care Teams Escort Car Driver Relationship Specialty Start Date End Date Matias Tan MD [facility] [address] [facility] [place] [address] PCP - General Family Medicine 10/24/19 documented as of this encounter
--- OUTSIDE RECORDS SUMMARY | 2025-02-13 18:36 | XMS_ITS | Encounter Summary ---
Author Organization [facility] Address [address] [place] [address] Care Team Providers Care Book Reviewer Name Role Phone Yulia Smart MD Primary Care Provider Encounter Details Date Type Department Care Team (Late st Contact Info) Description 01/13/2025 Lab Requisition [facility] - Main Lab [address] [facility] [place] [address] Yulia Smart MD [address] [place] [phone] Encounter for other general examination Social History [...] K/mcL LAB HEMETOLOGY METHOD 01/13/2025 11:17 AM [facility] RBC 3.40(L) 4.50 - 5.50 M/mcL LAB HEMETOLOGY METHOD 01/13/2025 11:17 AM [facility] Hemoglobin 10.6(L) 13.5 - 17.5 g/dL LAB HEMETOLOGY METHOD 01/13/2025 11:17 AM [facility] Hematocrit 30.8(L) 42.0 - 54.0 % LAB HEMETOLOGY METHOD 01/13/2025 11:17 AM [facility] MCV 89.8 79.0 - 98.0 FL LAB HEMETOLOGY METHOD 01/13/2025 11:17 AM [facility] MCH 30.9 27.0 - 32.0 pcg LAB HEMETOLOGY METHOD 01/13/2025 11:17 AM [facility] MCHC 34.4 32.0 - 37.0 g/dL LAB HEMETOLOGY METHOD 01/13/2025 11:17 AM [facility] RDW 14.5 11.0 - 15.0 % LAB HEMETOLOGY METHOD 01/13/2025 11:17 AM [facility] Platelets 105(L) 130 - 400 K/mcL LAB HEMETOLOGY METHOD 01/13/2025 11:17 AM [facility] MPV 11.5(H) 7.0 - 11.0 FL LAB HEMETOLOGY METHOD 01/13/2025 11:17 AM [facility] NRBC 0.0 <1.0 % LAB HEMETOLOGY METHOD 01/13/2025 11:17 AM [facility] NRBC Absolute 0.00 <0.10 K/mcL LAB HEMETOLOGY METHOD 01/13/2025 11:17 AM [facility] Neutrophils Relative 49.1 % LAB HEMETOLOGY METHOD 01/13/2025 11:17 AM [facility] Lymphocytes Relative 31.3 % LAB HEMETOLOGY METHOD 01/13/2025 11:17 AM [facility] Monocytes Relative 13.0 % LAB HEMETOLOGY METHOD 01/13/2025 11:17 AM [facility] Eosinophils Relative 6.0 % LAB HEMETOLOGY METHOD 01/13/2025 11:17 AM [facility] Basophils Relative 0.4 % LAB HEMETOLOGY METHOD 01/13/2025 11:17 AM [facility] Immature Granulocytes Relative 0.2 % LAB HEMETOLOGY METHOD 01/13/2025 11:17 AM [facility] Neutrophils Absolute 2.38 1.50 - 7.00 K/mcL LAB HEMETOLOGY METHOD 01/13/2025 11:17 AM [facility] Lymphocytes Absolute 1.52 1.00 - 5.00 K/mcL LAB HEMETOLOGY METHOD 01/13/2025 11:17 AM [facility] Monocytes Absolute 0.63 0.20 - 1.00 K/mcL LAB HEMETOLOGY METHOD 01/13/2025 11:17 AM [facility] Eosinophils Absolute 0.29 0.00 - 0.50 K/mcL LAB HEMETOLOGY METHOD 01/13/2025 11:17 AM [facility] Basophils Absolute 0.02 0.00 - 0.20 K/mcL LAB HEMETOLOGY METHOD 01/13/2025 11:17 AM [facility] Immature Granulocytes Absolute 0.01 0.00 - 0.03 K/mcL LAB HEMETOLOGY METHOD 01/13/2025 11:17 AM [facility] Blood Venous blood specimen / Unknown Venipuncture / Unknown 01/13/2025 5:26 AM EDT 01/13/2025 10:00 AM EDT us Yulia Smart MD LAB BLOOD ORDERABLES Final Resu lt Performing Organization Address City/[facility]/ZIP Co de Phone Number [facility] [address] [place] [address], [place] [phone] * (ABNORMAL) Magnesium (01/13/2025 5:26 AM EDT) Magnesium 1.8(L) 1.9 - 2.6 mg/dL LAB CHEMISTRY METHOD 01/13/2025 12:11 PM EDT [facility] Blood Venous blood specimen / Unknown Venipuncture / Unknown 01/13/2025 5:26 AM EDT 01/13/2025 10:00 AM EDT us Yulia Smart MD LAB BLOOD ORDERABLES Final Resu lt Performing Organization Address [facility]/ZIP [place] de Phone Number [facility] [address] [place] [address], [place] [phone] * Hemoglobin A1c (01/13/2025 5:26 AM EDT) [...] Performing Organization Address City/[facility]/ZIP Co de Phone Number [facility] [address] [place] [address], [place] [phone] * (ABNORMAL) Comprehensive metabolic panel (01/13/2025 5:26 AM EDT) Sodium 129(L) 133 - 145 mmol/L LAB CHEMISTRY METHOD 01/13/2025 12:12 PM [facility] Potassium 3.6 3.5 - 5.5 mmol/L LAB CHEMISTRY METHOD 01/13/2025 12:12 PM [facility] Chloride 85(L) 96 - 110 mmol/L LAB CHEMISTRY METHOD 01/13/2025 12:12 PM [facility] CO2 28 21 - 32 mmol/L LAB CHEMISTRY METHOD 01/13/2025 12:12 PM [facility] Anion Gap 16(H) 3 - 11 LAB CHEMISTRY METHOD 01/13/2025 12:12 PM [facility] Glucose 90 70 - 100 mg/dL LAB CHEMISTRY METHOD 01/13/2025 12:12 PM [facility] BUN 77(H) 5 - 25 mg/dL LAB CHEMISTRY METHOD 01/13/2025 12:12 PM [facility] Creatinine 10.50(H) 0.70 - 1.30 mg/dL LAB CHEMISTRY METHOD 01/13/2025 12:12 PM [facility] eGFR 5(L) >=60 mL/min/1 .73m2 LAB CHEMISTRY METHOD 01/13/2025 12:12 PM [facility] Comment:Calculation based on the??Chronic Kidney Disease Epidemiology Collaboration (CKD-EPI) equation refit??without adjustment for race. BUN/Creatinine Ratio 7.3 LAB CHEMISTRY METHOD 01/13/2025 12:12 PM [facility] Calcium 7.2(L) 8.5 - 10.5 mg/dL LAB CHEMISTRY METHOD 01/13/2025 12:12 PM [facility] AST (SGOT) 76(H) 10 - [...] g/dL LAB CHEMISTRY METHOD 01/13/2025 12:12 PM [facility] Total Bilirubin 0.4 0.0 - 1.4 mg/dL LAB CHEMISTRY METHOD 01/13/2025 12:12 PM EDT [facility] Blood Venous blood specimen / Unknown Venipuncture / Unknown 01/13/2025 5:26 AM EDT 01/13/2025 10:00 AM EDT us Yulia Smart MD LAB BLOOD ORDERABLES Final Resu lt [facility] [address] [place] [address], [place] [phone] documented in this encounter Visit Diagnoses Diagnosis Encounter for other general examination documented in this encounter Care Teams Book Reviewer Relationship Specialty Start Date End Date Yulia Smart MD [address] [place] [id number] PCP - General Hospitalist Medicine 01/13/25 documented as of this encounter
--- OUTSIDE RECORDS SUMMARY | 2025-02-13 18:36 | XMS_ITS | Encounter Summary ---
Author Organization [facility], Address [address] [place] [address] Phone Care Team Providers Care Direct Care Professional Name Role Phone Matias Tan MD Primary Care Provider +1- [phone] Reason for Visit * Reason Comments Med Refill Encounter Details Date Type Department Care Team (Late st Contact Info) Description 12/28/2024 Refill [facility] [address] [place] [address] Sawyer Davis MD [address] [place] [address] Social History Tobacco Use Types [...] visit [facility] [place] - [facility] Center [address] [place] [address] documented as of this encounter Procedures Procedure Name Priority Date/Time Associated Diagnosis Comments HEMATOLOGY Routine 12/28/2024 documented in this encounter Results * (ABNORMAL) HEMATOLOGY (12/28/2024) Hemoglobin 11.5(L) 14.0 - 18.0 g/dL [facility] Hemoglobin x 3 34.5(L) 42.0 - 54.0 % [facility] 12/28/2024 12/29/2024 9:1 7 AM EDT Narrative [facility] - 12/29/2024 Unless otherwise specified, test(s) performed at: [facility], [address] [place] [address] PATIENT SAFETY TECH: Blane Ramsay M.D. For any questions, please call customer service at FREQUENCY:OTHER Resulting Agency Comment Specimen source: Blood us Denys Mueller MD LAB BLOOD ORDERABLES Final Re sult [email or web address] See order comments or contact performing lab [facility], [place] documented in this encounter Visit Diagnoses Not on filedocumented in this encounter Care Teams Direct Care Professional Relationship Specialty Start Date End Date Matias Tan MD [facility] [address] [facility] [place] [phone] PCP - General Family Medicine 10/24/19 documented as of this encounter
--- OUTSIDE RECORDS SUMMARY | 2025-02-13 18:36 | XMS_ITS | Encounter Summary ---
Author Organization [facility] Address [address] [place] [address] Care Team Providers Care Brim Edge Trimmer Name Role Phone Yulia Smart MD Primary Care Provider Encounter Details Date Type Department Care Team (Late st Contact Info) Description 01/18/2025 Lab Requisition [facility] - Main Lab [address] [facility] [place] [address] Yulia Smart MD [address] [place] [address] Encounter for other general examination Social History [...] LAB HEMETOLOGY METHOD 01/18/2025 7:10 AM EDT [facility] Neutrophils Relative 77.1 % [...] LAB HEMETOLOGY METHOD 01/18/2025 7:10 AM EDT [facility] Blood Venous blood specimen / Unknown Venipuncture / Unknown 01/18/2025 5:06 AM EDT 01/18/2025 6:20 AM EDT us Yulia Smart MD LAB BLOOD ORDERABLES Final Resu lt Performing Organization Address City/[facility]/ZIP Co de Phone Number [facility] [address] [place] [address], [place] [phone] * Ammonia (01/18/2025 5:06 AM EDT) Am[facility] 28 11 - 35 mcmol/L LAB CHEMISTRY METHOD 01/18/2025 6:53 AM EDT [facility] Blood Venous blood specimen / Unknown Venipuncture / Unknown 01/18/2025 5:06 AM EDT 01/18/2025 6:20 AM EDT us Yulia Smart MD LAB BLOOD ORDERABLES Final Resu lt Performing Organization Address [facility] Co de Phone Number [facility] [address] [place] [address], [place] [phone] * Thyroid stimulating hormone (01/18/2025 5:06 AM EDT) TSH 1.94 0.40 - 4.00 mcIU/mL LAB CHEMISTRY METHOD 01/18/2025 9:08 AM EDT [facility] Blood Venous blood specimen / Unknown Venipuncture / Unknown 01/18/2025 5:06 AM EDT 01/18/2025 6:20 AM EDT us Yulia Smart MD LAB BLOOD ORDERABLES Final Resu lt Performing Organization Address City/[facility]/ZIP Co de Phone Number [facility] [address] [place] [address], [place] [phone] * (ABNORMAL) Vitamin B12 (01/18/2025 5:06 AM EDT) [facility] Vitamin B-12 1,241(H) 250 - 900 pcg/mL LAB CHEMISTRY METHOD 01/18/2025 7:36 AM EDT [facility] Blood Venous blood specimen / Unknown Venipuncture / Unknown 01/18/2025 5:06 AM EDT 01/18/2025 6:20 AM EDT us Yulia Smart MD LAB BLOOD ORDERABLES Final Resu lt [facility] [address] [place] [address], [place] [phone] * (ABNORMAL) Comprehensive metabolic panel (01/18/2025 5:06 AM EDT) [facility] Sodium 123(L) 133 - 145 mmol/L LAB [...] MD LAB BLOOD ORDERABLES Final Resu lt [facility] [address] [place] [address], documented in this encounter Visit Diagnoses Diagnosis Encounter for other general examination documented in this encounter Care Teams Brim Edge Trimmer Relationship Specialty Start Date End Date Yulia Smart MD [address] [place] [address] PCP - General Hospitalist Medicine 01/13/25 documented as of this encounter
--- OUTSIDE RECORDS SUMMARY | 2025-02-13 18:36 | XMS_ITS | Clinical Summary ---
Author Organization [facility], Address [address] [place] [address] Phone Care Team Providers Care Integration Aide Name Role Phone Matias Tan MD Primary Care Provider +1- [phone] Allergies Active Allergy Reactions Criticality Noted Date [...] HOURS NEEDED FOR PAIN 2 Active B Lnobwty-S-Eeqjv Acid (Dialyvite 800) 0.8 MG tablet Take [...] Only [facility] [address] [address] Denys Mueller MD 01/31/2025 Treatment [facility] [place] [address] [place] [address] Guanako Mercer MD End stage renal disease; Dependence on renal dialysis 01/04/2025 Orders Only [facility] [address] [address] Denys Mueller MD 01/02/2025 Orders Only [facility] [address] [address] Denys Mueller MD 01/02/2025 Treatment [facility] [address] [place] [address] Tiffani Olson FNP-C End stage renal disease; Dependence on renal dialysis 12/28/2024 Treatment [facility] [address] [place] [address] Tiffani Olson FNP-C End stage renal disease; Dependence on renal dialysis 12/28/2024 Refill [facility] [address] [address] Sawyer Davis MD 12/26/2024 Orders Only [facility] [address] [address] Denys Mueller MD 12/23/2024 Treatment [facility] [place] [address] [place] [address] Tiffani Olson FNP-C End stage renal disease; Dependence on renal dialysis 12/21/2024 Orders Only [facility] [address] [address] Denys Mueller MD 12/19/2024 Orders Only [facility] [address] [place] [address] Denys Mueller MD 12/16/2024 Treatment [facility] [place] [address] [place] [address] Sawyer Davis MD End stage renal disease; Dependence on renal dialysis 12/14/2024 Orders Only [facility] [address] [address] Denys Mueller MD 12/14/2024 Treatment [facility] [place] [address] [place] [address] Tiffani Olson FNP-C 12/13/2024 Treatment [facility] [address] [place] [address] Missy Izquierdo APRN 12/12/2024 Orders Only [facility] [address] [address] Denys Mueller MD 12/07/2024 Orders Only [facility] [address] [address] Denys Mueller MD 12/07/2024 Treatment [facility] [place] [address] [place] [address] Tiffani Olson FNP-C 11/30/2024 Orders Only [facility] [address] [address] Denys Mueller MD 11/23/2024 Orders Only [facility] [address] [address] Denys Mueller MD 11/23/2024 Treatment [facility] [address] [place] [address] Tiffani Olson FNP-C 11/16/2024 Treatment [facility] [place], [address] [place] [address] Tiffani Olson FNP-C 11/16/2024 Telephone [facility] Vascular Access Center [address] [place] [address] [place] [address] Tanya Chi post op call 11/15/2024 9:00 AM EST Procedure visit [facility] V[facility] Access Center [address] [place] [address] [place] [address] Ferdinand Monroe MD End stage renal disease [...] visit [facility] [place] - [facility] Center [address] [place] [address] Health Maintenance Due Date Last [...] LAB BLOOD ORDERABLES Final Re sult [facility] See order comments or contact performing lab [place], [place] * POST CHEMISTRY (02/03/2025) Only the most recent of3 resultswithin the time period is included. BUN Post Dialysis 8 6 - 19 mg/dL [facility] 02/03/2025 02/07/2025 8:5 8 AM EDT Narrative [facility] - 02/07/2025 Unless otherwise specified, test(s) performed at: [facility], [address] [place] [address] [facility] PT: Blane Ramsay M.D. For any questions, please call customer service at FREQUENCY:MONTHLY Resulting Agency Comment Specimen source: Plasma Denys Mueller MD LAB BLOOD ORDERABLES Final Re sult Performing Organization Address [facility] de Phone Number [facility] See order comments or contact performing lab [place], [place] * IMMUNO CHEMISTRY (02/03/2025) Only the most recent of3 resultswithin the time period is included. [facility] Hep B Surface Ag Negative Negative [facility] 02/03/2025 02/07/2025 8:4 7 AM EDT Narrative [facility] - 02/07/2025 Unless otherwise specified, test(s) performed at: [facility], [address] [place], [place] [id number] [facility] HEALTH [facility] PT: Blane Ramsay M.D. For any questions, please call customer service at FREQUENCY:MONTHLY Resulting Agency Comment Specimen source: Serum Denys Mueller MD LAB BLOOD ORDERABLES Final Re sult Performing Organization Address [facility] de Phone Number [facility] See order comments or contact performing lab [place], [place] * (ABNORMAL) HEMATOLOGY (02/03/2025) Only the most recent of9 resultswithin the time period is included. [facility] Hemoglobin 8.0(L) 14.0 - 18.0 g/dL [facility] Comment: Verified by repeat analysis. Hemoglobin x 3 24(L) 42.0 - 54.0 % [facility] 02/03/2025 02/07/2025 9:4 8 AM EDT Narrative [facility] - 02/07/2025 Unless otherwise specified, test(s) performed at: [facility], [address] [place] [address] [facility] PT: Blane Ramsay M.D. For any questions, please call customer service at FREQUENCY:MONTHLY Resulting Agency Comment Specimen source: Blood Denys Mueller MD LAB BLOOD ORDERABLES Final Re sult Performing Organization Address [facility] de Phone Number [facility] See order comments or contact performing lab [place], [place] * (ABNORMAL) [facility] Chemistry (02/03/2025) Only the most recent of13 [...] 02/07/2025 Unless otherwise specified, test(s) performed at: [facility], [address] [place] [address] [facility] PT: Blane Ramsay M.D. For any questions, please call customer service at FREQUENCY:MONTHLY Resulting Agency Comment Specimen source: Serum us Denys Mueller MD LAB BLOOD ORDERABLES Final Re sult Performing Organization Address City/[facility]/ZIP Co de Phone Number [facility] See order comments or contact performing lab [place], [place] * [facility] Lab Results (02/03/2025) Only the most recent of3 resultswithin the time period is included. Pathologist [facility] eKt/V ([place]all) 1.59 [facility] WSTDKT/V 0.8 [facility] spKt/V (Daugirdas II) 1.82 [facility] 02/03/2025 02/03/2025 [facility] LAB BLOOD ORDERABLES Final Result Performing Organization Address [facility] de Phone Number [facility] Contact Performing lab Unknown, [place] * SPECIAL CHEMISTRY (11/16/2024) Only the most recent of2 resultswithin the time period is included. [facility] Vitamin D, 25-OH, Total 66.0 30.0 - 100.0 ng/mL [facility] Comment: Please Note:? Effective August 17, 2023, the methodology for this test has changed to the [facility]. 11/16/2024 11/18/2024 7:5 9 AM EST Narrative [facility] - 11/18/2024 Unless otherwise specified, test(s) performed at: [facility], [address] [place] [address] [facility] HEALTH [facility]EL PT: Blane Ramsay M.D. For any questions, please call customer service at FREQUENCY:OTHER Resulting Agency Comment Specimen source: Serum Denys Mueller MD LAB BLOOD BANK TEST ORDERABLE S Final Result Performing Organization Address [facility] Co de Phone Number [facility] See order comments or contact performing lab Unknown, [place] from Last 3 Months or Most Recently Relevant to Health Maintenance Insurance Medicare [facility] Member Subscriber Plan / Payer (Ef fective 2020-) Name:Emma Wick Relation to Subscriber:Self Name:Emma Wick Payer ID:[id number] (NAIC) Group ID:Not on file Type:Not on file Address: [place] [phone] Medicare [facility] Care Teams Integration Aide Relationship Specialty Start Date End Date Matias Tan MD [address] [place] [address] PCP - General Family Medicine 10/24/19
--- OUTSIDE RECORDS SUMMARY | 2025-02-13 18:36 | XMS_ITS | Encounter Summary ---
Author Organization [facility], Address [address] [place] [address] Phone Care Team Providers Care Rigging Engineer Name Role Phone Matias Tan MD Primary Care Provider +1- [phone] Reason for Visit * Reason Comments Med Refill Encounter Details Date Type Department Care Team (Late st Contact Info) Description 07/17/2022 Refill [facility] - Vascular Access Center [address] [place] [address] Guanako Mercer MD [address] [place] [address] Social History Tobacco Use Types Packs/Day Years [...] visit [facility] - [facility] Center [address] [place] [phone] documented as of this encounter Visit Diagnoses Not on filedocumented in this encounter Care Teams Rigging Engineer Relationship Specialty Start Date End Date Matias Tan MD [address] [place] [address] PCP - General Family Medicine 10/24/19 documented as of this encounter
--- OUTSIDE RECORDS SUMMARY | 2025-02-13 18:36 | XMS_ITS | Encounter Summary ---
Author Organization [facility] [place], Address [address] [place] [address] Phone Care Team Providers Care Sr. Pricing Analyst Name Role Phone Matias Tan MD Primary Care Provider +1- [phone] Reason for Visit * Reason Onset Date Comments Med Refill 12/20/2022 Encounter Details Date Type Department Care Team (Late st Contact Info) Description 12/20/2022 Refill [facility] - Vascular Access Center [address] [place] [place] [address] Kb Sung MD Social History Tobacco Use [...] visit [facility] - [facility] Access Center [address] [place] [address] documented as of this encounter Visit Diagnoses Not on filedocumented in this encounter Care Teams Sr. Pricing Analyst Relationship Specialty Start Date End Date Matias Tan MD [facility] [address] [facility] [place] [address] PCP - General Family Medicine 10/24/19 documented as of this encounter
--- OUTSIDE RECORDS SUMMARY | 2025-02-13 18:36 | XMS_ITS | Encounter Summary ---
Author Organization [facility], Address [address] [place] [address] Phone Care Team Providers Care Software Engineer Advisor Name Role Phone Matias Tan MD Primary Care Provider +1- [phone] Reason for Visit * Reason Comments Med Refill Encounter Details Date Type Department Care Team (Late st Contact Info) Description 01/26/2023 Refill [facility] [address] [place] [address] Gabriela Hernandez PA Social History Tobacco [...] visit [facility] [place], - Vascular Access Center [address] [place] [address] documented as of this encounter Visit Diagnoses Not on filedocumented in this encounter Care Teams Software Engineer Advisor Relationship Specialty Start Date End Date Matias Tan MD [facility] [address] [place] [address] PCP - General Family Medicine 10/24/19 documented as of this encounter
--- OUTSIDE RECORDS SUMMARY | 2025-02-13 18:36 | XMS_ITS | Encounter Summary ---
Author Organization [facility] [place], Address [address] [place] [address] Phone Care Team Providers Care Eyeletter Name Role Phone Matias Tan MD Primary Care Provider +1- [phone] Reason for Visit * Reason Onset Date Comments Med Refill 07/01/2024 Encounter Details Date Type Department Care Team (Late Contact Info) Description 07/01/2024 Refill [facility], - Vascular Access Center [address] [place] [address] Dale Lema MD [address] [place] [address] Social History Tobacco Use Types Packs/Day Years [...] visit [facility] [place] - Vascular Access Center [address] [place] [address] documented as of this encounter Visit Diagnoses Not on filedocumented in this encounter Care Teams Eyeletter Relationship Specialty Start Date End Date Matias Tan MD [address] [facility] [place] [address] PCP - General Family Medicine 10/24/19 documented as of this encounter
--- OUTSIDE RECORDS SUMMARY | 2025-02-13 18:36 | XMS_ITS | Encounter Summary ---
Author Organization [facility] [place], Address [address] [place] [address] Phone Care Team Providers Care Roller Machine Operator Name Role Phone Matias Tan MD Primary Care Provider +1- [phone] Encounter Details Date Type Department Care Team (Late st Contact Info) Description 03/11/2023 Documentation Only [facility] [address] [place] [address] Jose Luis Amezcua MD Social History Tobacco [...] visit [facility] Vascular Access Center [address] [place] [address] documented as of this encounter Visit Diagnoses Not on filedocumented in this encounter Care Teams Roller Machine Operator Relationship Specialty Start Date End Date Matias Tan MD [address] [place] [address] PCP - General Family Medicine 10/24/19 documented as of this encounter
--- OUTSIDE RECORDS SUMMARY | 2025-02-13 18:36 | XMS_ITS | Encounter Summary ---
Author Organization [facility] [place], Address [address] [place] [address] Phone Care Team Providers Care Engagement Director Name Role Phone Matias Tan MD Primary Care Provider +1- [phone] Reason for Visit * Reason Comments Med Refill Encounter Details Date Type Department Care Team (Late st Contact Info) Description 01/26/2023 Refill [facility] [address] [place] [address] Denys Mueller MD [address] [place] [address] Social History Tobacco Use Types [...] visit [facility] [place] - Vascular Access Center [address] [place] [address] documented as of this encounter Visit Diagnoses Not on filedocumented in this encounter Care Teams Engagement Director Relationship Specialty Start Date End Date Matias Tan MD [address] [place] [address] PCP - General Family Medicine 10/24/19 documented as of this encounter
--- OUTSIDE RECORDS SUMMARY | 2025-02-13 18:36 | XMS_ITS | Encounter Summary ---
Author Organization [facility] [place], Address [address] [place] [address] Phone Care Team Providers Care Data Processing Auditor Name Role Phone Matias Tan MD Primary Care Provider +1- [phone] Encounter Details Date Type Department Care Team (Late st Contact Info) Description 02/02/2024 Documentation Only [facility] [place], [address] [place] [address] Alexandria Yusuf [address] [place] [address] Social History Tobacco Use Types [...] visit [facility] [place] - Vascular Access Center [address] [place] [address] documented as of this encounter Visit Diagnoses Not on filedocumented in this encounter Care Teams Data Processing Auditor Relationship Specialty Start Date End Date Matias Tan MD [address] [place] [address] PCP - General Family Medicine 10/24/19 documented as of this encounter
--- OUTSIDE RECORDS SUMMARY | 2025-02-13 18:36 | XMS_ITS | Encounter Summary ---
Author Organization [facility] [place], Address [address] [place] [address] Phone Care Team Providers Care Large Engine Assembler Name Role Phone Matias Tan MD Primary Care Provider +1- [phone] Reason for Visit * Reason Onset Date Comments Med Refill 07/19/2022 Encounter Details Date Type Department Care Team (Late st Contact Info) Description 07/19/2022 Refill [facility] - Vascular Access Center [address] [place] [address] Guanako Mercer MD [address] [place] [address] Social History Tobacco Use Types Packs/Day Years [...] visit [facility] [place] - V[facility] Access Center [address] [place] [address] documented as of this encounter Visit Diagnoses Not on filedocumented in this encounter Care Teams Large Engine Assembler Relationship Specialty Start Date End Date Matias Tan MD [facility] [address] [facility] [place] [address] PCP - General Family Medicine 10/24/19 documented as of this encounter
--- OUTSIDE RECORDS SUMMARY | 2025-02-13 18:36 | XMS_ITS | Encounter Summary ---
Author Organization [facility], Address [address] [place] [address] Phone Care Team Providers Care Anchor Tacker Name Role Phone Matias Tan MD Primary Care Provider +1- [phone] Reason for Visit * Reason Onset Date Comments Med Refill 09/24/2022 Encounter Details Date Type Department Care Team (Late st Contact Info) Description 09/24/2022 Refill [facility] [address] [place] [address] Ferdinand Monroe MD [address] [place] [phone] Social History Tobacco Use Types Packs/Day Years [...] visit [facility] [address] [place] [address] [place] [phone] documented as of this encounter Visit Diagnoses Not on filedocumented in this encounter Care Teams Anchor Tacker Relationship Specialty Start Date End Date Matias Tan MD [address] [facility] [place] [address] PCP - General Family Medicine 10/24/19 documented as of this encounter
--- OUTSIDE RECORDS SUMMARY | 2025-02-13 18:36 | XMS_ITS | Encounter Summary ---
Author Organization [facility], Address [address] [place] [address] Phone Care Team Providers Care Non Profit Job Titles Name Role Phone Matias Tan MD Primary Care Provider +1- [phone] Reason for Visit * Reason Comments Med Refill Encounter Details Date Type Department Care Team (Late st Contact Info) Description 11/28/2022 Refill [facility] [place] [address] [place] [address] Guanako Mercer MD [address] [place] [address] Social History Tobacco Use [...] visit [facility] [address] [place] [address] documented as of this encounter Visit Diagnoses Not on filedocumented in this encounter Care Teams Non Profit Job Titles Relationship Specialty Start Date End Date Matias Tan MD [address] [facility] [place] [address] PCP - General Family Medicine 10/24/19 documented as of this encounter
--- OUTSIDE RECORDS SUMMARY | 2025-02-13 18:36 | XMS_ITS | Encounter Summary ---
Author Organization [facility], Address [address] [place] [address] Phone Care Team Providers Care Wildlife Control Agent Name Role Phone Matias Tan MD Primary Care Provider +1- [phone] Reason for Visit * Reason Onset Date Comments Med Refill 12/23/2022 Encounter Details Date Type Department Care Team (Late st Contact Info) Description 12/23/2022 Refill [facility] - [facility] [address] [place] [phone] Ferdinand Monroe MD [address] [phone] Social History Tobacco Use Types Packs/Day Years [...] visit [facility] [address] [place] [address] [place] [phone] documented as of this encounter Visit Diagnoses Not on filedocumented in this encounter Care Teams Wildlife Control Agent Relationship Specialty Start Date End Date Matias Tan MD [address] [place] [address] PCP - General Family Medicine 10/24/19 documented as of this encounter
[2025-02-13 18:41] VITALS: RESP 20
[2025-02-13] MEDS: Morphine Sulfate 4 MG/ML CARTRIDGE IVPUSH ×2 (18:41→22:40)
[2025-02-13 18:58] LABS: Alanine Aminotransferase 6 U/L (0-40); Albumin Level 3.3 g/dL (3.5-5.0); Alkaline Phosphatase 76 U/L (39-117); Anion Gap 23 (12-20); Aspartate Amino Transferase 22 U/L (5-37); Bilirubin Total 0.5 mg/dL (0.0-1.0); Blood Urea Nitrogen 78 mg/dL (9-16); Calcium 8.3 mg/dL (8.4-10.2); Carbon Dioxide 22 mmol/L (22-29); Chloride 86 mmol/L (96-108); Creatinine Clr Calc Pharmacy 5.3; Estimated Glomerular Filt Rate 4; Glucose Random 112 mg/dL (60-115); Potassium 4.9 mmol/L (3.3-5.1); Sodium 126 mmol/L (135-145); Total Protein 6.3 g/dL (6.5-8.0)
--- NOTE | 2025-02-13 19:16 | MHC.EDTECH ---
Patient bed pad changed and repositioned
[2025-02-13 19:38] LABS: Appearance Urine Clear; Color Urine Yellow; Glucose Urine UA 100 mg/dL (Negative); Leukocyte Esterase Urine Negative (Negative); Nitrite Urine Negative (Negative); UMIC TRIGGER UACC YES; Urine Blood Negative (Negative); Urine Ketones Negative (Negative); Urine Protein 100 (2+) mg/dL (Neg-Trace)
[2025-02-13 19:43] LABS: Bacteria Urine None Seen (None Seen); Hyaline Casts Urine 0-2 /LPF (0-2); RBC Urine 0-2 /HPF (0-2); Squamous Epithelial Cell Urine 0-2 /HPF (0-2); WBC Urine 0-5 /HPF (0-5)
[2025-02-13 20:00] VITALS: BP 130/55; PULSE 68; RESP 16; TEMP 36.3; O2SAT 97
--- NOTE | 2025-02-13 20:35 | P.HPHOSP_ITS ---
History of Present Illness Date of Service: 02/13/25 Chief Complaint: Missed dialysis, low sodium This is a 70 year old male with pertinent history of ESRD on dialysis, insulin dependent diabetes milletus, hypothyroidism, mixed hyperlipidemia, anemia of chronic kidney disease, GERD, mood disorder who was sent to the emergency department for evaluation of abnormal labs. Patient missed hemodialysis session on 02/10 and 02/13. States we did not go for dialysis as he wanted a break . Patient had blood work done at [facility] which revealed low-sodium and he was sent to the ER for further evaluation. Patient denies dyspnea but does complain of generalized body ache. No specific complaints at the time of my evaluation. No fever or chills, cough, shortness of breath, chest pain or palpitations. Denies changes in urinary or bowel habits. In the emergency department, nephrology was consulted who requested admission to medicine team for dialysis in a.m.. Sodium 126 in the ER with creatinine 12.87 and BUN 78 Review of Systems 2 Constitutional: Constitutional: Reports fatigue, Reports lethargy, Reports malaise and Reports weakness Cardiovascular: Cardiovascular: Reports no additional cardiovascular complaints Respiratory: Respiratory: Reports no additional respiratory complaints Gastrointestinal: Gastrointestinal: Reports no additional gastrointestinal complaints Genitourinary: Genitourinary: Reports no additional male genitourinary complaints Neurologic: Reports weakness Endocrine: Endocrine: Reports fatigue [facility] Medical History End stage renal disease on dialysis End stage kidney disease Occult blood positive stool Anemia Internal jugular vein thrombosis Abnormality of gait ESRD needing dialysis Secondary hyperparathyroidism (of renal origin) Anemia in chronic kidney disease DONIS (acute kidney injury) Diabetes Kidney failure HTN (hypertension) Social History Household Members: Family Housing: House Are you a primary rn progressive care unit to a significant other at home: No Do you presently have visiting nurse or other home services: No Alcohol intake: former Comment: sitter in place Patient Tobacco Use Status: Never used Tobacco Cigarette Packs Per Day: 0 Cigarettes Per Day: 0.0 Years Smoked: NA Smoked in Last 30 Days: No e-Cigarette/Vaping Use: Never Used Second Hand Smoke Exposure: No Use of substances other than those prescribed or required for medical reasons: No Advance Directives: Yes Advance Directives on File: Yes Advance Directives Date on File: 09/07/23 service: No Meds Allergies Allergy/AdvReac Type Severity Reaction Status Date / Time Penicillins [PENICILLINS] Allergy Unknown RASH Verified 02/13/25 14:58 tramadol [From ULTRAM] Allergy Unknown RASH Verified 02/13/25 14:58 trazodone [TRAZODONE] Allergy Unknown PRIAPISM Verified 02/13/25 14:58 risperidone [RISPERIDONE] AdvReac Severe dizzy, EPS Verified 02/13/25 14:58 Active Medications: Current Medications Dextrose (Dextrose 50 % 25 Gm/50 Ml Syringe) 25 gm IVPUSH Q15M PRN; Protocol PRN Reason: per Hypoglycemia Standing Ord. Glucose (Glucose Gel 15 Gm Gel..Gram.) 15 gm PO Q15M PRN; Protocol PRN Reason: per Hypoglycemia Standing Ord. Insulin Human Lispro (Insulin Lispro 100 Unit/Ml 3 Ml Vial) [facility]; Protocol Home Medications ?Medication ?Instructions ?Recorded ?Confirmed ?Last Taken ?Type atenolol 100 mg tablet 1 tab PO DAILY 07/11/21 02/04/25 02/02/25 History blood sugar diagnostic (FreeStyle 07/11/21 10/30/24 10/30/24 09:00 History Lite Strips) dextroamphetamine-amphetamine 20 1 tab PO TID@0800,1400,1800 07/11/21 02/04/25 02/02/25 History mg tablet levothyroxine 137 mcg tablet 1 tab PO DAILY@0600 07/11/21 02/04/25 02/02/25 History pen needle, diabetic 31 gauge x 07/11/21 10/30/24 10/30/24 09:00 History 5/16 (BD Ultra-Fine Short Pen Needle) amlodipine 5 mg tablet 5 mg PO BID 09/03/23 02/04/25 02/02/25 History atorvastatin 40 mg tablet 40 mg PO DAILY 02/22/24 02/04/25 02/02/25 History sodium zirconium cyclosilicate 10 10 g PO SUTUTHSA@0900 06/19/24 02/04/25 02/02/25 History gram oral powder packet (Lokelma) alprazolam 0.5 mg tablet 0.5 mg PO DAILY PRN anxiety attack 10/30/24 02/04/25 02/02/25 History alprazolam 2 mg tablet 2 mg PO BID 10/30/24 02/04/25 02/02/25 History insulin lispro 100 unit/mL See Protocol subcut TIDAC PRN 10/30/24 02/04/25 10/30/24 09:00 History subcutaneous pen (Humalog KwikPen Blood Glucose (U-100) Insulin) vitamin D3 25 mcg (1,000 unit)-vit 1 tab PO SUTUTHSA@0900 11/02/24 02/04/25 02/02/25 History K2 90 mcg disintegrating tablet losartan 100 mg tablet 100 mg PO DAILY 01/09/25 02/04/25 02/02/25 History sevelamer carbonate 800 mg tablet 1,600 mg PO TIDWM 01/09/25 02/04/25 02/02/25 History albuterol sulfate 2.5 mg/3 mL 2.5 mg inhalation Q6H PRN Wheezing 01/18/25 02/04/25 Unknown History (0.083 %) solution for nebulization albuterol sulfate 90 mcg/actuation 2 puff inhalation Q6H PRN 01/18/25 02/04/25 Unknown History aerosol inhaler (Ventolin HFA) Shortness Of Breath Or Wheezing calcium carbonate (Tums) 200 mg PO TID PRN UPSET STOMACH 01/18/25 02/04/25 Unknown History cholecalciferol (vitamin D3) 125 125 mcg PO SUTUTHSA@0900 01/18/25 02/04/25 02/02/25 History mcg (5,000 unit) tablet (Vitamin D3) melatonin 5 mg tablet 5 mg PO BEDTIME PRN Insomnia 01/18/25 02/04/25 Unknown History quetiapine 25 mg tablet (Seroquel) 25 mg PO BID PRN Agitation 01/18/25 02/04/25 Unknown History sevelamer carbonate 800 mg tablet 800 mg PO DAILY PRN SNACKS 01/18/25 02/04/25 02/02/25 History vitamin B complex and vitamin C 1 cap PO SUTUTHSA@0900 01/18/25 02/04/25 Unknown History no.20-folic acid 1 mg capsule omeprazole 40 mg capsule,delayed 40 mg PO BID@0630,1630 02/04/25 02/04/25 Unknown History release Physical Exam 2 Vital Signs and Narrative: Vital Signs: Last Vital Signs Temp 97.3 F 02/13/25 20:00 Pulse 68 02/13/25 20:00 Resp 16 02/13/25 20:00 BP 130/55 L 02/13/25 20:00 Pulse Ox 97 02/13/25 20:00 O2 Del Method Room Air 02/13/25 20:00 BMI result Body Mass Index 29.6 Middle-aged male lying in bed in no distress Neck supple, no JVD Regular rate and rhythm, S1-S2 heard Regular breath sounds bilaterally, no wheezing or crackles appreciated Abdomen soft nontender, no guarding, no rigidity Patient is awake, alert and oriented x3 ; no focal motor deficit Psych: Normal mood No pedal edema Results Labs 02/13/25 15:44 02/13/25 18:32 Labs: Laboratory Results - last 24 hr 02/13/25 02/13/25 02/13/25 15:44 18:32 19:31 MCV 88.6 MCH 31.5 MCHC 35.5 RDW 15.5 Plt Count 364 MPV 10.1 Immature Gran % (Auto) Cancelled Neut % (Auto) Cancelled Lymph % (Auto) Cancelled [place] % (Auto) Cancelled Eos % (Auto) Cancelled Baso % (Auto) Cancelled Lymph # (Auto) Cancelled [place] # (Auto) Cancelled Eos # (Auto) Cancelled Baso # (Auto) Cancelled Abs Immat Gran (auto) Cancelled Absolute Neuts (auto) Cancelled Absolute Nucleated RBC 0.000 Nucleated RBC % (auto) 0.0 Neutrophils % (Manual) 70 Band Neutrophils % 0 L Lymphocytes % (Manual) 12 L Atypical Lymphs % (Man) 3 Monocytes % (Manual) 9 Eosinophils % (Manual) 6 H Abs Neuts (Manual) 9.6 H Lymphocytes # (Manual) 1.6 Atyp Lymphs # (Manual) 0.4 Monocytes # (Manual) 1.2 Eosinophils # (Manual) 0.8 H Hypersegmented Neuts PRESENT Toxic Vacuolation PRESENT Platelet Estimate NORMAL Plt Morphology Comment NORMAL RBC Morphology NOTED Microcytosis 1+ (5-14) Spherocytes 1+ (0-2) Kelsey Cells 1+ (0-2) Smear Tech's Comments VERIFIED Anion Gap 23 H Estim Creat Clear Calc 5.3 Estimated GFR 4 Random Glucose 112 Calcium 8.3 L Total Bilirubin 0.5 AST 22 ALT 6 Alkaline Phosphatase 76 Total Protein 6.3 L Albumin 3.3 L Urine Color Yellow Urine Appearance Clear Urine pH 7.0 Ur Specific [place] 1.010 Urine Protein 100 (2+) H Urine Glucose (UA) 100 H Urine Ketones Negative Urine Blood Negative Urine Nitrite Negative Ur Leukocyte Esterase Negative Urine RBC 0-2 Urine WBC 0-5 Ur Squamous Epith Cells 0-2 Urine Bacteria None Seen Hyaline Casts 0-2 Assessment and Plan (1) ESRD needing dialysis: Status: Acute (2) Hyponatremia: Status: Acute Plan This is a 70 year old male with pertinent history of ESRD on dialysis, insulin dependent diabetes milletus, hypothyroidism, mixed hyperlipidemia, anemia of chronic kidney disease, GERD, mood disorder who was sent to the emergency department for evaluation of abnormal labs. #. Need for emergent dialysis: Patient missed last 2 hemodialysis sessions. Will admit patient with cardiac monitoring. Consulted nephrology. Closely monitor electrolytes #. Hyponatremia, hypervolemic: Monitor sodium with dialysis #. Leukocytosis, reactive #. Hypothyroidism: On synthroid #. Insulin dependent diabetes milletus: Initiating basal plus insulin regimen #. Hypertension: Continue home anti hypertensives #. Mood disorder: Continue home mood stabilizers #. GERD: On PPI Med rec pending DVT Prophylaxis: Heparin Full code Admit as inpatient for need for dialysis (as above), which is not possible in a lesser acute setting. Specialist consult pending Quality Stroke Does the patient have a stroke diagnosis?: No VTE Prior VTE?: No VTE Risk Level:: Medical - moderate - high VTE Device Contraindication: Treatment Not Indicated VTE Drug Contraindication: N/A - Med Ordered
--- NOTE | 2025-02-13 21:45 | PHA.MEDREC ---
Pharmacy Consult ? Medication Reconciliation Pharmacy has completed the medication reconciliation, utilized list from [facility].
--- NOTE | 2025-02-13 21:53 | PC.NURSE ---
lispro insulin held poc 121 per protocol give 0units
[2025-02-13 21:55] LABS: Glucose, Whole Blood 121 mg/dL (60-115)
[2025-02-13] MEDS: Insulin Glargine,Hum.rec.anlog 100 UNIT/ML 10 ML VIAL SUBCUT (21:57)
[2025-02-13] MEDS: Heparin Sodium,Porcine 5,000 UNIT/ML VIAL 5000 UNIT SUBCUT (21:57)
--- NOTE | 2025-02-13 22:02 | PC.NURSE ---
pt awaiting bed assignment pt medicated according to césar pt provided with sandwich and water
--- NOTE | 2025-02-13 22:43 | PC.NURSE ---
pt medicated for bilat lower leg pain prn morphine given per mar
[2025-02-14] VITALS (13 sets, daily range): BP systolic 119–160; BP diastolic 49–75; PULSE 64–79; RESP 12–20; TEMP 36.6–38.1; O2SAT 95–100; BMI 24.9
[2025-02-14] MEDS: 0.9 % Sodium Chloride Flush 3 ML SYRINGE IVFLUSH ×4 (00:54→23:26)
[2025-02-14 04:54] LABS: Hematocrit 24.8 % (42.0-52.0); Hemoglobin 8.8 g/dl (14.0-18.0); Mean Corpuscular HGB Conc 35.5 g/dl (31.0-36.0); Mean Corpuscular Hemoglobin 31.5 pg (27.0-33.0); Mean Corpuscular Volume 88.9 fL (80.0-98.0); Mean Platelet Volume 10.3 fL (9.4-12.4); Platelet Count 358 X10*3/uL (160-400); Red Blood Count 2.79 X10*6/uL (4.60-5.80); Red Cell Distribution Width 15.3 % (11.0-16.0); White Blood Count 16.8 X10*3/uL (4.8-10.8)
[2025-02-14] MEDS: Morphine Sulfate 4 MG/ML CARTRIDGE IVPUSH ×5 (05:01→23:37)
--- NOTE | 2025-02-14 05:05 | PC.NURSE ---
pt assisted with use of bedside urinal pt medicated for pain with prn morphine
[2025-02-14 05:25] LABS: Anion Gap 25 (12-20); Blood Urea Nitrogen 87 mg/dL (9-16); Calcium 8.5 mg/dL (8.4-10.2); Carbon Dioxide 18 mmol/L (22-29); Chloride 89 mmol/L (96-108); Creatinine Clr Calc Pharmacy 4.8; Estimated Glomerular Filt Rate 3; Glucose Random 113 mg/dL (60-115); Potassium 6.3 mmol/L (3.3-5.1); Sodium 126 mmol/L (135-145)
--- NOTE | 2025-02-14 06:25 | PM.EVENT ---
Event Note Date of Service: 02/14/25 Event Note: Lab reported hyperkalemia. Ordered temporizing measures and Lokelma. Time Spent With Patient Time: Total time managing care of this patient today ____ minutes.
[2025-02-14] MEDS: Sodium Zirconium Cyclosilicate 10 GM POWD.PACK PO (06:44)
[2025-02-14] MEDS: Calcium Gluconate/NaCl,Iso-Osm 2 GM/100 ML PLAST..BAG IV (06:44)
[2025-02-14 06:46] LABS: Glucose, Whole Blood 139 mg/dL (60-115)
[2025-02-14] MEDS: Dextrose 50 % 25 GM/50 ML SYRINGE IVPUSH (06:46)
[2025-02-14] MEDS: Insulin Regular, Human 100 UNIT/ML 10 ML VIAL IVPUSH (06:46)
[2025-02-14 07:53] LABS: Glucose, Whole Blood 160 mg/dL (60-115)
[2025-02-14] MEDS: Heparin Sodium,Porcine 5,000 UNIT/ML VIAL 5000 UNIT SUBCUT ×2 (08:01→23:25)
[2025-02-14] MEDS: Insulin Lispro 100 UNIT/ML 3 ML VIAL SUBCUT ×2 (08:01→18:25)
--- NOTE | 2025-02-14 08:31 | PC.NURSE ---
This RN assumed care of patient @ 0700. Patient was taken dialysis.
--- NOTE | 2025-02-14 09:57 | PC.NURSE ---
pt verbalizing increase in LE pain while being dialyzed. prn medication ordered by this RN. effectiveness pending.
--- NOTE | 2025-02-14 10:07 | P.CONNP_ITS ---
History of Present Illness Reason for Consult Consult date: 02/14/25 Chief Complaint Chief complaint: missed dialysis History of Present Illness Narrative: Patient is a 70 y/o male with a medical history of ESRD on HD (M,W,F), DM, hypothyroidism, HLD, anemia of chronic disease, GERD, and mood disorder who presented from [facility] with body aches and low sodium of 126. Patient states he missed last two HD sessions on 02/10 and 02/10 as he needed a break and felt rest was more important than dialysis. Nephrology consulted for management of ESRD. sodium 126, creatinine 12.87, potassium 6.3, TSH 12, CO2 18, Calcium 8.3. H&H 8.8 & 24.8. UA +protein, glucose. patient denies shortness of breath, chest pain. patient states he has chronic pain, pain disorder that no one has figured out for many years. reports widespread pruritus, states this is chronic and not new. denies new tremors, nausea, vomiting, muscle cramping. reports last void was yesterday- reports he generally voids every few days. Review of Systems Constitutional: Reports fatigue Denies dizziness Cardiovascular: Denies chest pain, Denies leg edema, Denies lightheadedness and Denies dyspnea Respiratory: Denies cough and Denies dyspnea Gastrointestinal: Denies constipation, Denies diarrhea, Denies nausea and Denies vomiting Genitourinary: Denies oliguria and Denies dysuria Musculoskeletal: Denies muscle cramps Skin/Breast: Denies rash Denies dizziness and Denies tremor(s) Endocrine: Reports fatigue PMFSH Past Medical History Medical History End stage renal disease on dialysis End stage kidney disease Occult blood positive stool Anemia Internal jugular vein thrombosis Abnormality of gait ESRD needing dialysis Secondary hyperparathyroidism (of renal origin) Anemia in chronic kidney disease DONIS (acute kidney injury) Diabetes Kidney failure HTN (hypertension) Social History Social History Household Members: Family Housing: House Are you a primary home care scheduler to a significant other at home: No Do you presently have visiting nurse or other home services: No Alcohol intake: former Comment: sitter in place Patient Tobacco Use Status: Never used Tobacco Cigarette Packs Per Day: 0 Cigarettes Per Day: 0.0 Years Smoked: NA Smoked in Last 30 Days: No e-Cigarette/Vaping Use: Never Used Second Hand Smoke Exposure: No Use of substances other than those prescribed or required for medical reasons: No Advance Directives: Yes Advance Directives on File: Yes Advance Directives Date on File: 09/07/23 service: No Meds Allergies Allergy/AdvReac Type Severity Reaction Status Date / Time Penicillins [PENICILLINS] Allergy Unknown RASH Verified 02/13/25 14:58 tramadol [From ULTRAM] Allergy Unknown RASH Verified 02/13/25 14:58 trazodone [TRAZODONE] Allergy Unknown PRIAPISM Verified 02/13/25 14:58 risperidone [RISPERIDONE] AdvReac Severe dizzy, EPS Verified 02/13/25 14:58 Active Medications: Current Medications Acetaminophen (Acetaminophen 325 Mg Tablet) 650 mg PO Q6H PRN PRN Reason: Pain, Mild 1-3,fever,headache Calcium Carbonate (Calcium Carbonate 750 Mg Tab.Chew) 750 mg PO Q4H PRN PRN Reason: Heartburn Dextrose (Dextrose 50 % 25 Gm/50 Ml Syringe) 25 gm IVPUSH Q15M PRN; Protocol PRN Reason: per Hypoglycemia Standing Ord. Glucose (Glucose Gel 15 Gm Gel..Gram.) 15 gm PO Q15M PRN; Protocol PRN Reason: per Hypoglycemia Standing Ord. Heparin Sodium (Porcine) (Heparin Sodium,Porcine 5,000 Unit/Ml Vial) 5,000 unit SUBCUT Q12H [facility] Last Admin: 02/14/25 08:01 Dose: 5,000 unit Insulin Glargine (Insulin Glargine,Hum.Rec.Anlog 100 Unit/Ml 10 Ml Vial) 5 unit SUBCUT BEDTIME [facility] Last Admin: 02/13/25 21:57 Dose: 5 unit Insulin Human Lispro (Insulin Lispro 100 Unit/Ml 3 Ml Vial) 0 unit SUBCUT QIDACHS [facility]; Protocol Last Admin: 02/14/25 08:01 Dose: 2 unit Magnesium Hydroxide (Milk Of Magnesia 30 Ml Oral.Susp) 30 ml PO DAILY PRN PRN Reason: Constipation Melatonin (Melatonin 3 Mg Tablet) 6 mg PO BEDTIME PRN PRN Reason: Insomnia Morphine Sulfate (Morphine Sulfate 4 Mg/Ml Cartridge) 4 mg IVPUSH Q4H PRN; Protocol PRN Reason: Pain, Severe (Pain Scale 7-10) Last Admin: 02/14/25 09:57 Dose: 4 mg Ondansetron HCl (Ondansetron Hcl 4 Mg/2 Ml Vial) 4 mg IVPUSH Q8H PRN PRN Reason: Nausea and Vomiting Sodium Chloride (0.9 % Sodium Chloride Flush 3 Ml Syringe) 3 ml IVFLUSH QSHIFT FRANCINE Last Admin: 02/14/25 08:02 Dose: 3 ml Home Medications ?Medication ?Instructions ?Recorded ?Confirmed ?Last Taken ?Type atenolol 100 mg tablet 1 tab PO DAILY 07/11/21 02/13/25 02/02/25 History blood sugar diagnostic (FreeStyle 07/11/21 10/30/24 10/30/24 09:00 History Lite Strips) levothyroxine 137 mcg tablet 1 tab PO DAILY@0600 07/11/21 02/13/25 02/02/25 History pen needle, diabetic 31 gauge x 07/11/21 10/30/24 10/30/24 09:00 History 5/16 (BD Ultra-Fine Short Pen Needle) amlodipine 5 mg tablet 5 mg PO BID 09/03/23 02/13/25 02/02/25 History atorvastatin 40 mg tablet 40 mg PO BEDTIME 02/22/24 02/13/25 02/02/25 History sodium zirconium cyclosilicate 10 10 g PO SUTUTHSA@0900 06/19/24 02/13/25 02/02/25 History gram oral powder packet (Lokelma) alprazolam 0.5 mg tablet 0.5 mg PO DAILY PRN anxiety attack 10/30/24 02/13/25 02/02/25 History alprazolam 2 mg tablet 2 mg PO BID 10/30/24 02/13/25 02/02/25 History insulin lispro 100 unit/mL See Protocol subcut TIDAC PRN 10/30/24 02/13/25 10/30/24 09:00 History subcutaneous pen (Humalog KwikPen Blood Glucose (U-100) Insulin) losartan 100 mg tablet 100 mg PO DAILY 01/09/25 02/13/25 02/02/25 History sevelamer carbonate 800 mg tablet 1,600 mg PO TIDWM 01/09/25 02/13/25 02/02/25 History albuterol sulfate 2.5 mg/3 mL 2.5 mg inhalation Q6H PRN Wheezing 01/18/25 02/13/25 Unknown History (0.083 %) solution for nebulization albuterol sulfate 90 mcg/actuation 2 puff inhalation Q6H PRN 01/18/25 02/13/25 Unknown History aerosol inhaler (Ventolin HFA) Shortness Of Breath Or Wheezing calcium carbonate (Tums) 200 mg PO Q8H PRN UPSET STOMACH 01/18/25 02/13/25 Unknown History cholecalciferol (vitamin D3) 125 125 mcg PO SUTUTHSA@0900 01/18/25 02/13/25 02/02/25 History mcg (5,000 unit) tablet (Vitamin D3) melatonin 5 mg tablet 5 mg PO BEDTIME PRN Insomnia 01/18/25 02/13/25 Unknown History quetiapine 25 mg tablet (Seroquel) 25 mg PO Q12H PRN Agitation 01/18/25 02/13/25 Unknown History vitamin B complex and vitamin C 1 cap PO DAILY 01/18/25 02/13/25 Unknown History no.20-folic acid 1 mg capsule acetaminophen 325 mg tablet 650 mg PO Q6H PRN Fever Or Pain 02/13/25 02/13/25 Unknown History bisacodyl 10 mg rectal suppository 10 mg MD DAILY PRN constipation, 02/13/25 02/13/25 Unknown History MOM not effective after 24 hrs cefuroxime axetil 250 mg tablet 250 mg PO DAILY 02/13/25 02/13/25 Unknown History esomeprazole magnesium 40 mg 40 mg PO BID@0630,1630 02/13/25 02/13/25 Unknown History capsule,delayed release folic acid 1 mg tablet 1 mg PO DAILY 02/13/25 02/13/25 Unknown History Physical Exam Vital Signs: Last Vital Signs Temp 97.3 F 02/13/25 20:00 Pulse 71 02/14/25 04:00 Resp 16 02/14/25 04:00 BP 127/55 L 02/14/25 04:00 Pulse Ox 98 02/14/25 04:00 O2 Del Method Room Air 02/14/25 04:00 BMI result Body Mass Index 29.6 Const General: no acute distress, alert and awake Orientation/consciousness: patient oriented x3 Resp Effort & Inspection: normal respiratory effort and able to speak in complete sentences Auscultation: crackles bilateral in the lower lung rider Cardio Rate: regular rate Rhythm: regular rhythm Heart sounds: S1 normal heart sound present and S2 normal heart sound present GI Palpation (GI): Soft to palpation and nontender General: Yes no CVA tenderness Back/Spine/Pelvis Back: no CVA tenderness Skin Rashes: no rashes Neuro Other: no tremor or asterixis General: patient oriented x3, moves all extremities and no focal motor deficits Extrem General: Yes edema Results Lab Results 02/14/25 03:51 02/14/25 10:59 Lab results: Chemistry 02/13/25 02/14/25 18:32 03:51 Sodium 126 L 126 L Potassium 4.9 6.3 H* D Carbon Dioxide 22 18 L BUN 78 H 87 H Creatinine 12.87 H* 14.06 H* Calcium 8.3 L 8.5 Hematology 02/13/25 02/14/25 15:44 03:51 WBC 13.7 H 16.8 H Hgb 9.1 L 8.8 L Plt Count 364 358 Urinalysis 02/13/25 19:31 Urine Color Yellow Urine Appearance Clear Urine pH 7.0 Ur Specific [place] 1.010 Urine Protein 100 (2+) H Urine Glucose (UA) 100 H Urine Ketones Negative Urine Blood Negative Urine Nitrite Negative Ur Leukocyte Esterase Negative Urine RBC 0-2 Urine WBC 0-5 Ur Squamous Epith Cells 0-2 Hyaline Casts 0-2 Assessment and Plan (1) Hyponatremia: Status: Acute (2) End stage renal disease on dialysis: Status: Acute Plan ESRD on HD, hypervolemic hyponatremia secondary to missed HD sessions x2 Plan for HD today LUE AV fistula without erythema or swelling, +thrill, +bruit H&H stable potassium elevated at 6.3, patient to be dialyzed today + metabolic acidosis calcium normal at 8.5 suspect hyponatremia will improve with removal of fluid, as likely secondary to hypervolemia from missed HD. However, patient also has elevated TSH, which may also be contributing. may consider free water restriction of 1200mL daily if sodium does not normalize post dialysis. Discussed with Dr Quinn. Procedures Date of Service Date of Service: 02/14/25
--- NOTE | 2025-02-14 11:47 | MHC.EDTECH ---
This pct went off unit to dialysis unit to obtain a blood sugar check on this patient, RN Aware
[2025-02-14 11:49] LABS: Glucose, Whole Blood 111 mg/dL (60-115)
--- NOTE | 2025-02-14 11:52 | PC.NURSE ---
Patient remains at dialysis, supervisor unloading went off unit to obtain POC - no insulin coverage needed at this time. Will resume care of patient when returns to ED
--- NOTE | 2025-02-14 12:19 | P.PNIM_ITS ---
Subjective Subjective Date of Service: 02/14/25 Interval History: Follow up for volume overload necessitating dialysis and electrolyte abnormality Review of Systems Review of Systems: Yes all other systems are reviewed and are negative Constitutional Constitutional: Denies chills and Denies fever(s) Cardiovascular Cardiovascular: Denies dyspnea Respiratory Respiratory: Denies cough and Denies dyspnea Physical Exam 2 Vital Signs: Vital Signs: Last Vital Signs Temp 97.3 F 02/13/25 20:00 Pulse 71 02/14/25 04:00 Resp 16 02/14/25 04:00 BP 127/55 L 02/14/25 04:00 Pulse Ox 98 02/14/25 04:00 O2 Del Method Room Air 02/14/25 04:00 BMI result Body Mass Index 29.6 Appearing in no acute distress lung sounds are clear to auscultation heart regular rate rhythm, clear S1, S2 positive bowel sounds, abdomen is soft, nontender neuro patient is alert x3, no focal deficits Objective Data Active Medications Acetaminophen (Acetaminophen 325 Mg Tablet) 650 mg PO Q6H PRN PRN Reason: Pain, Mild 1-3,fever,headache Calcium Carbonate (Calcium Carbonate 750 Mg Tab.Chew) 750 mg PO Q4H PRN PRN Reason: Heartburn Dextrose (Dextrose 50 % 25 Gm/50 Ml Syringe) 25 gm IVPUSH Q15M PRN; Protocol PRN Reason: per Hypoglycemia Standing Ord. Glucose (Glucose Gel 15 Gm Gel..Gram.) 15 gm PO Q15M PRN; Protocol PRN Reason: per Hypoglycemia Standing Ord. Heparin Sodium (Porcine) (Heparin Sodium,Porcine 5,000 Unit/Ml Vial) 5,000 unit SUBCUT Q12H [facility] Last Admin: 02/14/25 08:01 Dose: 5,000 unit Documented By: KORIN Insulin Glargine (Insulin Glargine,Hum.Rec.Anlog 100 Unit/Ml 10 Ml Vial) 5 unit SUBCUT BEDTIME [facility] Last Admin: 02/13/25 21:57 Dose: 5 unit Documented By: CEDRIC Insulin Human Lispro (Insulin Lispro 100 Unit/Ml 3 Ml Vial) 0 unit SUBCUT QIDACHS [facility]; Protocol Last Admin: 02/14/25 11:53 Dose: Not Given Documented By: FRANCISCO Non-Admin Reason: No Insulin Coverage Magnesium Hydroxide (Milk Of Magnesia 30 Ml Oral.Susp) 30 ml PO DAILY PRN PRN Reason: Constipation Melatonin (Melatonin 3 Mg Tablet) 6 mg PO BEDTIME PRN PRN Reason: Insomnia Morphine Sulfate (Morphine Sulfate 4 Mg/Ml Cartridge) 4 mg IVPUSH Q4H PRN; Protocol PRN Reason: Pain, Severe (Pain Scale 7-10) Last Admin: 02/14/25 09:57 Dose: 4 mg Documented By: KORIN Ondansetron HCl (Ondansetron Hcl 4 Mg/2 Ml Vial) 4 mg IVPUSH Q8H PRN PRN Reason: Nausea and Vomiting Sodium Chloride (0.9 % Sodium Chloride Flush 3 Ml Syringe) [facility] Last Admin: 02/14/25 08:02 Dose: 3 ml Documented By: KORIN Labs 02/14/25 03:51 02/14/25 03:51 Labs: Laboratory Results - last 24 hr 02/13/25 02/13/25 02/13/25 15:44 18:32 19:31 MCV 88.6 MCH 31.5 MCHC 35.5 RDW 15.5 Plt Count 364 MPV 10.1 Immature Gran % (Auto) Cancelled Neut % (Auto) Cancelled Lymph % (Auto) Cancelled [place] % (Auto) Cancelled Eos % (Auto) Cancelled Baso % (Auto) Cancelled Lymph # (Auto) Cancelled [place] # (Auto) Cancelled Eos # (Auto) Cancelled Baso # (Auto) Cancelled Abs Immat Gran (auto) Cancelled Absolute Neuts (auto) Cancelled Absolute Nucleated RBC 0.000 Nucleated RBC % (auto) 0.0 Neutrophils % (Manual) 70 Band Neutrophils % 0 L Lymphocytes % (Manual) 12 L Atypical Lymphs % (Man) 3 Monocytes % (Manual) 9 Eosinophils % (Manual) 6 H Abs Neuts (Manual) 9.6 H Lymphocytes # (Manual) 1.6 Atyp Lymphs # (Manual) 0.4 Monocytes # (Manual) 1.2 Eosinophils # (Manual) 0.8 H Hypersegmented Neuts PRESENT Toxic Vacuolation PRESENT Platelet Estimate NORMAL Plt Morphology Comment NORMAL RBC Morphology NOTED Microcytosis 1+ (5-14) Spherocytes 1+ (0-2) Ferguson Cells 1+ (0-2) Smear Tech's Comments VERIFIED Anion Gap 23 H Estim Creat Clear Calc 5.3 Estimated GFR 4 POC Glucose Random Glucose 112 Calcium 8.3 L Total Bilirubin 0.5 AST 22 ALT 6 Alkaline Phosphatase 76 Total Protein 6.3 L Albumin 3.3 L Urine Color Yellow Urine Appearance Clear Urine pH 7.0 Ur Specific [place] 1.010 Urine Protein 100 (2+) H Urine Glucose (UA) 100 H Urine Ketones Negative Urine Blood Negative Urine Nitrite Negative Ur Leukocyte Esterase Negative Urine RBC 0-2 Urine WBC 0-5 Ur Squamous Epith Cells 0-2 Urine Bacteria None Seen Hyaline Casts 0-2 02/13/25 02/14/25 02/14/25 21:52 03:51 06:42 MCV 88.9 MCH 31.5 MCHC 35.5 RDW 15.3 Plt Count 358 MPV 10.3 Immature Gran % (Auto) Neut % (Auto) Lymph % (Auto) [place] % (Auto) Eos % (Auto) Baso % (Auto) Lymph # (Auto) [place] # (Auto) Eos # (Auto) Baso # (Auto) Abs Immat Gran (auto) Absolute Neuts (auto) Absolute Nucleated RBC 0.000 Nucleated RBC % (auto) 0.0 Neutrophils % (Manual) Band Neutrophils % Lymphocytes % (Manual) Atypical Lymphs % (Man) Monocytes % (Manual) Eosinophils % (Manual) Abs Neuts (Manual) Lymphocytes # (Manual) Atyp Lymphs # (Manual) Monocytes # (Manual) Eosinophils # (Manual) Hypersegmented Neuts Toxic Vacuolation Platelet Estimate Plt Morphology Comment RBC Morphology Microcytosis Spherocytes Ferguson Cells Smear Tech's Comments Anion Gap 25 H Estim Creat Clear Calc 4.8 Estimated GFR 3 POC Glucose 121 H 139 H Random Glucose 113 Calcium 8.5 Total Bilirubin AST ALT Alkaline Phosphatase Total Protein Albumin Urine Color Urine Appearance Urine pH Ur Specific [place] Urine Protein Urine Glucose (UA) Urine Ketones Urine Blood Urine Nitrite Ur Leukocyte Esterase Urine RBC Urine WBC Ur Squamous Epith Cells Urine Bacteria Hyaline Casts 02/14/25 02/14/25 07:49 11:43 MCV MCH MCHC RDW Plt Count MPV Immature Gran % (Auto) Neut % (Auto) Lymph % (Auto) [place] % (Auto) Eos % (Auto) Baso % (Auto) Lymph # (Auto) [place] # (Auto) Eos # (Auto) Baso # (Auto) Abs Immat Gran (auto) Absolute Neuts (auto) Absolute Nucleated RBC Nucleated RBC % (auto) Neutrophils % (Manual) Band Neutrophils % Lymphocytes % (Manual) Atypical Lymphs % (Man) Monocytes % (Manual) Eosinophils % (Manual) Abs Neuts (Manual) Lymphocytes # (Manual) Atyp Lymphs # (Manual) Monocytes # (Manual) Eosinophils # (Manual) Hypersegmented Neuts Toxic Vacuolation Platelet Estimate Plt Morphology Comment RBC Morphology Microcytosis Spherocytes Ferguson Cells Smear Tech's Comments Anion Gap Estim Creat Clear Calc Estimated GFR POC Glucose 160 H 111 Random Glucose Calcium Total Bilirubin AST ALT Alkaline Phosphatase Total Protein Albumin Urine Color Urine Appearance Urine pH Ur Specific [place] Urine Protein Urine Glucose (UA) Urine Ketones Urine Blood Urine Nitrite Ur Leukocyte Esterase Urine RBC Urine WBC Ur Squamous Epith Cells Urine Bacteria Hyaline Casts Assessment and Plan (1) End stage renal disease on dialysis: Status: Acute (2) Hyponatremia: Status: Acute Plan 70 year old male with pertinent history of ESRD on dialysis, insulin dependent diabetes milletus, hypothyroidism, mixed hyperlipidemia, anemia of chronic kidney disease, GERD, mood disorder who was sent to the emergency department for evaluation of abnormal labs. Emergent dialysis missed last 2 hemodialysis sessions. Consulted nephrology for dialysis schedule. Closely monitor electrolytes Hyponatremia, hypervolemic Monitor sodium with dialysis Hyperkalemia Lokelma and dialysis follow BMP close Leukocytosis no infection reactive Hypothyroidism On synthroid Insulin dependent diabetes 2 ss, ada diet Hypertension On amlodipine and losartan Mood disorder Continue home mood stabilizers GERD On PPI DVT Prophylaxis: Heparin Full code Quality Stroke Does the patient have a stroke diagnosis?: No VTE Prior VTE?: No VTE Risk Level:: Medical - moderate - high VTE Device Contraindication: Treatment Not Indicated VTE Drug Contraindication: N/A - Med Ordered
--- NOTE | 2025-02-14 12:26 | MHC.CM.PN ---
CM attempted to meet with Patient in HD but he appeared very tired and weak; Patient was agreeable to CM addressing IMM with his /HCP/Kyara(original will be mailed certified letter to Kyara and a copy will be placed on the chart). Patient's goal is to return to [facility] & HD @ [facility]; there is no bed hold but [facility] is following. CM has initiated and will follow for dc planning. Patient will need BLS transport back to [facility].
[2025-02-14 12:30] LABS: Anion Gap 18 (12-20); Blood Urea Nitrogen 29 mg/dL (9-16); Carbon Dioxide 28 mmol/L (22-29); Chloride 92 mmol/L (96-108); Creatinine Clr Calc Pharmacy 12.6; Estimated Glomerular Filt Rate 10; Glucose Random 135 mg/dL (60-115); Sodium 135 mmol/L (135-145)
[2025-02-14] MEDS: Acetaminophen 325 MG TABLET 650 MG PO (13:32)
--- NOTE | 2025-02-14 13:34 | PC.NURSE ---
Patient returned from dialysis, Patient noted to extremely weak but answering questions and following commands appropriately. Patient skin noted to be warm during care, rectal temp performed displayed 101, otherwise VSS. 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 PRN medication utilized. Patient sitting upright enjoying lunch at this time. Call latham in reach
[2025-02-14] MEDS: ALPRAZolam 0.5 MG TABLET PO (15:33)
--- NOTE | 2025-02-14 15:35 | PC.NURSE ---
Patient c/o anxiety. Administered PRN Xanax. Effectiveness pending
[2025-02-14] MEDS: Omeprazole 20 MG CAPSULE.DR PO (16:09)
[2025-02-14] MEDS: Sevelamer Carbonate Tablet 800 MG TABLET 1600 MG PO (16:09)
--- NOTE | 2025-02-14 16:14 | PC.NURSE ---
Reassessed patient vitals, VSS and up to date. PRN anxiety and PRN pain medication somewhat effective. Patient rates pain 9/10, and patient stated I feel less anxious .
[2025-02-14] MEDS: Potassium Chloride ER 20 MEQ TAB.ER.PRT 40 MEQ PO (17:46)
[2025-02-14 18:15] LABS: Glucose, Whole Blood 158 mg/dL (60-115)
[2025-02-14 21:11] LABS: Glucose, Whole Blood 88 mg/dL (60-115)
[2025-02-14 23:22] LABS: Glucose, Whole Blood 125 mg/dL (60-115)
[2025-02-14] MEDS: Atorvastatin Calcium 40 MG TABLET PO (23:24)
[2025-02-14] MEDS: amLODIPine Besylate 5 MG TABLET PO (23:24)
[2025-02-14] MEDS: ALPRAZolam 0.5 MG TABLET 2 MG PO (23:25)
[2025-02-14] MEDS: Insulin Glargine,Hum.rec.anlog 100 UNIT/ML 10 ML VIAL SUBCUT (23:31)
[2025-02-15] VITALS (7 sets, daily range): BP systolic 117–144; BP diastolic 58–65; PULSE 71–77; RESP 16–20; TEMP 36.1–37.1; O2SAT 95–97
[2025-02-15] MEDS: Omeprazole 20 MG CAPSULE.DR PO (04:53)
[2025-02-15] MEDS: Levothyroxine Sodium 112 MCG TABLET PO (04:53)
[2025-02-15] MEDS: Levothyroxine Sodium 25 MCG TABLET PO (04:53)
[2025-02-15] MEDS: Morphine Sulfate 4 MG/ML CARTRIDGE IVPUSH ×2 (04:54→11:26)
[2025-02-15 07:51] LABS: Glucose, Whole Blood 77 mg/dL (60-115)
[2025-02-15] MEDS: ALPRAZolam 0.5 MG TABLET 2 MG PO (08:20)
--- NOTE | 2025-02-15 08:30 | P.PNNPD_ITS ---
Subjective Subjective Date of Service: 02/15/25 This patient was seen during dialysis. 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 Patient missed two HD sessions on 02/10 and 02/13 as he needed a break and felt rest was more important than dialysis. Nephrology consulted for management of ESRD. sodium 126, creatinine 12.87, potassium 6.3, TSH 12, CO2 18, Calcium 8.3. H&H 8.8 & 24.8. patient received dialysis 02/14, sodium level normalized to 135. patient denies shortness of breath, chest pain. patient states he has chronic pain, pain disorder that no one has figured out for many years. reports widespread pruritus, states this is chronic and not new. denies new tremors, nausea, vomiting, muscle cramping. reports last void was today- reports he generally voids every few days. Physical Exam Vital Signs: Vital Signs: Last Vital Signs Temp 98.7 F 02/15/25 03:51 Pulse 75 02/15/25 04:52 Resp 20 02/15/25 05:25 BP 129/62 02/15/25 04:52 Pulse Ox 96 02/15/25 04:52 O2 Del Method Room Air 02/15/25 04:52 BMI result Body Mass Index 24.9 Const: General: no acute distress, alert and awake Orientation/consciousness: patient oriented x3 Resp: Effort & Inspection: normal respiratory effort and able to speak in complete sentences Auscultation: crackles bilateral in the lower lung rider Cardio: Rate: regular rate Rhythm: regular rhythm Heart sounds: S1 normal heart sound present and S2 normal heart sound present GI: Palpation (GI): Soft to palpation and nontender : General: Yes no CVA tenderness Back/Spine/Pelvis: Back: no CVA tenderness Skin: Rashes: no rashes Neuro: Other: no tremor or asterixis General: patient oriented x3, moves all extremities and no focal motor deficits Extrem: General: Yes edema Assessment & Plan Assessment and plan (1) End stage renal disease on dialysis: Status: Acute (2) Hyponatremia: Status: Acute Plan ESRD on HD, hypervolemic hyponatremia secondary to missed HD sessions x2 hyponatremia has resolved with HD yesterday. Pt receiving HD this a.m. to continue regular M, W, F schedule LUE AV fistula without erythema or swelling H&H stable, will administer procrit 20,000units 3x weekly + metabolic acidosis resolved calcium normal at 9.0 phosphorous low, recommend holding phosphorous binders. Discussed with Dr Allen Time Spent With Patient Time: Total time managing care of this patient today ____ minutes. Procedures Date of Service Date of Service: 02/15/25
[2025-02-15 09:28] LABS: Anion Gap 17 (12-20); Blood Urea Nitrogen 20 mg/dL (9-16); Calcium 10.1 mg/dL (8.4-10.2); Carbon Dioxide 26 mmol/L (22-29); Chloride 96 mmol/L (96-108); Creatinine Clr Calc Pharmacy 16.1; Estimated Glomerular Filt Rate 16; Glucose Random 161 mg/dL (60-115); Phosphorus 1.8 mg/dL (2.7-4.5); Sodium 135 mmol/L (135-145)
--- NOTE | 2025-02-15 10:33 | HO.WOUND ---
Wound Consult: Initial 70yr old?male admitted to [facility] on 02/13/25 - See progress notes and H&P for detailed history.? Wound consult placed for Coccyx.? Patient agreeable to assessment and photo documentation.? Patient was in Dialysis at the time of my arrival - skin not assessed but photo reviewed and topical recommendations made below. will assess skin directly at future date and time. Coccyx Etiology: Unstageable Pressure Injury ??Present on Admission Wound Bed: dark purple area - dry brown scab noted obscuring wound bed assessment Drainage / Odor: None dired Edges: ? irregular Katy wound: ? appears to have previous injury to site - will monitor periwound as healing occurs Goals of Treatment: ? Off load pressure and Medihoney and Foam dressing Recommendations: 1. Turn and Reposition every 2 hours and as needed for patient comfort.? Use pillows or wedges to support off loading positions. 2. Off Load all bony prominences with use of pillows and heel boots if needed.? Apply Preventative foams where needed. ? 3. Monitor for incontinence and moisture control, use barrier creams when needed for prevention and treatment. 4. Provide adequate and supplemental nutrition.? 5. Order low air loss mattress. 6. When applicable maintain blood glucose levels per Providers order. Coccyx - Off Load Pressure with Q2 hr turns and use of pillows - Cleanse with PH balance spray or wipes, pat dry. ?Apply layer of Medihoney to wound bed. ?Cover with foam dressing to aid in off loading and protection from friction. Change every 3 days and PRN.? Medihoney available from wound nurse ? tube left at bedside for use. Re-consult wound care Nurse for wound deterioration or wound changes.
[2025-02-15 10:58] LABS: Glucose, Whole Blood 107 mg/dL (60-115)
[2025-02-15] MEDS: Losartan Potassium 50 MG TABLET 100 MG PO (11:15)
[2025-02-15] MEDS: 0.9 % Sodium Chloride Flush 3 ML SYRINGE IVFLUSH (11:15)
[2025-02-15] MEDS: atenoloL 100 MG TABLET PO (11:16)
[2025-02-15] MEDS: amLODIPine Besylate 5 MG TABLET PO (11:16)
[2025-02-15] MEDS: Heparin Sodium,Porcine 5,000 UNIT/ML VIAL 5000 UNIT SUBCUT (11:17)
[2025-02-15] MEDS: Folic Acid 1 MG TABLET PO (11:17)
--- NOTE | 2025-02-15 12:16 | MHC.CM.PN ---
Per LPC,Patient is medically cleared for dc today, to return to [facility]. Patient will return to [facility] @ [facility] today at 4PM, via [facility]. Patient and his /HCP/Kyara @ [phone] are aware of and in agreement with the dc plan. Last IMM was addressed yesterday
--- NOTE | 2025-02-15 12:27 | P.DS_ITS ---
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 DS: Diagnosis Discharge Diagnosis (1) End stage renal disease on dialysis: Status: Acute (2) Hyponatremia: Status: Acute DS: Summary Hospital Course Hospital Course: History and physical as per admitting provider. This is a 70 year old male with pertinent history of ESRD on dialysis, insulin dependent diabetes milletus, hypothyroidism, mixed hyperlipidemia, anemia of chronic kidney disease, GERD, mood disorder who was sent to the emergency department for evaluation of abnormal labs. Patient missed hemodialysis session on 02/10 and 02/13. States we did not go for dialysis as he wanted a break . Patient had blood work done at [facility] which revealed low-sodium and he was sent to the ER for further evaluation. Patient denies dyspnea but does complain of generalized body ache. No specific complaints at the time of my evaluation. No fever or chills, cough, shortness of breath, chest pain or palpitations. Denies changes in urinary or bowel habits. In the emergency department, nephrology was consulted who requested admission to medicine team for dialysis in a.m.. Sodium 126 in the ER with creatinine 12.87 and BUN 78 70-year-old man treated for emergent dialysis. He was at short-term rehab and missed 2 dialysis sessions due to intractable pain. He was noted to be hyponatremic and hypovolemic but resolved after dialysis. Treated with Lokelma for hyperkalemia. Noted to have leukocytosis which was likely reactive, no infectious source. He will be now treated with scheduled Dilaudid for diffuse pain and peripheral neuropathy. Plan is to discharge back to short-term rehab for physical therapy. Hypothyroidism On synthroid Insulin dependent diabetes 2. Continue home medications Hypertension On amlodipine and losartan Mood disorder Continue home mood stabilizers GERD On PPI Time Attestation Discharge Coordination Time (in mins): 40 Quality: Safe Use of Opioids Does Pt have an Active Cancer Diagnosis on the Problem List?: No Quality: Stroke Does the patient have a stroke diagnosis?: No Physical Exam Vital Signs: Vital Signs: Last Vital Signs Temp 97.6 F 02/15/25 10:54 Pulse 77 02/15/25 10:54 Resp 18 02/15/25 10:54 BP 135/63 02/15/25 10:54 Pulse Ox 96 02/15/25 10:54 O2 Del Method Room Air 02/15/25 10:54 BMI result Body Mass Index 24.9 Appearing in no acute distress head is normocephalic atraumatic eyes pupils are PERRLA sclera is anicteric mouth throat mucous membranes are intact and moist neck is supple no lymphadenopathy, no JVD noted lung sounds are clear to auscultation heart regular rate rhythm, clear S1, S2 positive bowel sounds, abdomen is soft, nontender neuro patient is alert x3, no focal deficits DS: Data Data Completed and Pending Completed studies during hospitalization [Text1]: Procedures Assistance with Respiratory Ventilation, Less than 24 Consecutive Hours, Continuous Positive Airway Pressure (02/04/25) Control Bleeding in Gastrointestinal Tract, Via Natural or Artificial Opening Endoscopic (01/22/25) Excision of Esophagogastric Junction, Via Natural or Artificial Opening Endoscopic, Diagnostic (01/22/25) Excision of Stomach, Pylorus, Via Natural or Artificial Opening Endoscopic, Diagnostic (01/22/25) Inspection of Lower Intestinal Tract, Via Natural or Artificial Opening Endoscopic (01/22/25) Performance of Urinary Filtration, Intermittent, Less than 6 Hours Per Day (02/04/25) Transfusion of Nonautologous Red Blood Cells into Peripheral Vein, Percutaneous Approach (02/04/25) Labs on day of discharge: Laboratory Results - last 24 hr 02/14/25 02/14/25 02/14/25 10:59 18:10 21:02 Sodium 135 Potassium 3.0 L D Chloride 92 L Carbon Dioxide 28 Anion Gap 18 BUN 29 H Creatinine 5.41 H* Estim Creat Clear Calc 12.6 Estimated GFR 10 POC Glucose 158 H 88 Random Glucose 135 H Calcium 9.0 Phosphorus 02/14/25 02/15/25 02/15/25 23:17 07:47 09:04 Sodium 135 Potassium 4.0 D Chloride 96 Carbon Dioxide 26 Anion Gap 17 BUN 20 H Creatinine 3.79 H Estim Creat Clear Calc 16.1 Estimated GFR 16 POC Glucose 125 H 77 Random Glucose 161 H Calcium 10.1 D Phosphorus 1.8 L 04/30/25 10:50 Sodium Potassium Chloride Carbon Dioxide Anion Gap BUN Creatinine Estim Creat Clear Calc Estimated GFR POC Glucose 107 Random Glucose Calcium Phosphorus Discharge Plan Discharge Anticipated Discharge Date/Time: 02/15/25 12:21 Patient Disposition: Xfer SNF Discharge Diagnosis: Emergent dialysis Intractable pain Referrals: [facility] [Outside] - 1 Week Matias Tan MD [Primary Care Provider] - 1 Week Discharge Medications: New hydromorphone 4 mg tablet 4 mg PO Q8H Qty: 30 0RF Rx Instructions: Partial Fill upon patient request. Continued levothyroxine 137 mcg tablet 1 tab PO DAILY@0600 atenolol 100 mg tablet 1 tab PO DAILY (DME) FreeStyle Lite Strips Strip MISCELLANEOUS TID (DME) pen needle, diabetic [BD Ultra-Fine Short Pen Needle] 31 gauge x 5/16 needle subcut DAILY Lokelma 10 gram Powder In Packet 10 g PO SUTUTHSA@0900 Rx Instructions: on non dialysis days losartan 100 mg tablet 100 mg PO DAILY sevelamer carbonate 800 mg tablet 1,600 mg PO TIDWM quetiapine [Seroquel] 25 mg Tablet 25 mg PO Q12H PRN (Reason: Agitation) Rx Instructions: Pt does not take at home, something placed on last Admit, new orders not given at home albuterol sulfate 2.5 mg /3 mL (0.083 %) Solution For Nebulization 2.5 mg INHALATION Q6H PRN (Reason: Wheezing) Rx Instructions: hasnt been taking at home calcium carbonate [Tums] 200 mg calcium (500 mg) Tablet,Chewable 200 mg PO Q8H PRN (Reason: UPSET STOMACH) Rx Instructions: Pt not taking B complex with C 20-folic acid 1 mg Capsule 1 cap PO DAILY Rx Instructions: only takes on off HD days albuterol sulfate [Ventolin HFA] 90 mcg/actuation Hfa Aerosol Inhaler 2 puff INHALATION Q6H PRN (Reason: Shortness Of Breath Or Wheezing) Patient Comments: reporting he is not using them melatonin 5 mg Tablet 5 mg PO BEDTIME PRN (Reason: Insomnia) Rx Instructions: Pt does not take at home, something placed on last Admit, new orders not given at home cholecalciferol (vitamin D3) [Vitamin D3] 125 mcg (5,000 unit) Tablet 125 mcg PO SUTUTHSA@0900 Rx Instructions: only takes on nonHD days insulin glargine [Lantus U-100 Insulin] 100 unit/mL Solution 7 unit SUBCUT BEDTIME Qty: 10 0RF Rx Instructions: Pt does not take at home, something placed on last Admit, new orders not given at home bisacodyl 10 mg Suppository 10 mg UT DAILY PRN (Reason: constipation, MOM not effective after 24 hrs) esomeprazole magnesium 40 mg Capsule,Delayed Release(Dr/Ec) 40 mg PO BID@0630,1630 folic acid 1 mg Tablet 1 mg PO DAILY cefuroxime axetil 250 mg tablet 250 mg PO DAILY Rx Instructions: END DATE 02/21/2025 acetaminophen 325 mg Tablet 650 mg PO Q6H PRN (Reason: Fever Or Pain) amlodipine 5 mg tablet 5 mg PO BID atorvastatin 40 mg tablet 40 mg PO BEDTIME alprazolam 0.5 mg tablet 0.5 mg PO DAILY PRN (Reason: anxiety attack) Patient Comments: has been doing twice a day alprazolam 2 mg tablet 2 mg PO BID insulin lispro [Humalog KwikPen Insulin] 100 unit/mL insulin pen See Protocol subcut TIDAC PRN (Reason: Blood Glucose) Protocol: Insulin Correction Scale Less than or equal to 110 ---- Give (units): 0 111 to 150 Give (units): 0 151 to 200 Give (units): 2 201 to 250 Give (units): 4 251 to 300 Give (units): 6 301 to 350 Give (units): 8 Greater than 350 Give (units): 10 Call MD if Blood Glucose > : 350 Rx Instructions: Pt does not take at home, something placed on last Admit, new orders not given at home Discontinued hydromorphone 4 mg tablet 4 mg PO Q3H PRN (Reason: Severe Pain (Scale Score 7-10)) Qty: 20 0RF Patient Comments: Does not normally take sometimes can go 4-5 hours but takes every 3 hours Discharge Orders: Discharge Order (Routine); Ordered 02/15/25 Ordered By: Sara Pizarro Diet: Advance to usual diet Activity on Discharge: As tolerated Stand Alone Forms: Patient Portal Discharge page Print Language: Yi Care Plan Goals: Back to short-term rehab for physical therapy Scheduled Dilaudid for chronic pain and peripheral neuropathy Health Concerns: Emergent dialysis Intractable pain Plan of Treatment: Follow up with primary care provider as needed Take all medications as prescribed Assessment: See discharge summary
[2025-02-15] MEDS: Potassium Phosphate/NS 15 MMOL/250 ML PLAST..BAG 62.5 MMOL IV (12:40)
[2025-02-15] MEDS: Sevelamer Carbonate Tablet 800 MG TABLET 1600 MG PO (12:47)
[2025-02-15] MEDS: Epoetin Alfa-epbx 10,000 UNIT/ML VIAL 20000 UNIT SUBCUT (14:23)
[2025-02-15 15:58] LABS: Glucose, Whole Blood 137 mg/dL (60-115)
--- NOTE | 2025-02-15 16:19 | HO.WOUND ---
Wound Consult: Initial 70yr old?male admitted to [facility] on 02/13/25 - See progress notes and H&P for detailed history.? Wound consult placed for Coccyx.? Patient agreeable to assessment and photo documentation.? Patient was in Dialysis at the time of my arrival - skin not assessed but photo reviewed and topical recommendations made below. will assess skin directly at future date and time. Coccyx Etiology: Deep Tissue Injury??Present on Admission Wound Bed: dark purple area intact - dry brown scab removed with cleansing Drainage / Odor: None Edges: ? irregular Katy wound: ? appears to have previous injury to site - will monitor periwound as healing occurs Goals of Treatment: ? Off load pressure and Foam dressing Recommendations: 1. Turn and Reposition every 2 hours and as needed for patient comfort.? Use pillows or wedges to support off loading positions. 2. Off Load all bony prominences with use of pillows and heel boots if needed.? Apply Preventative foams where needed. ? 3. Monitor for incontinence and moisture control, use barrier creams when needed for prevention and treatment. 4. Provide adequate and supplemental nutrition.? 5. Order low air loss mattress. 6. When applicable maintain blood glucose levels per Providers order. Coccyx - Off Load Pressure with Q2 hr turns and use of pillows - Cleanse with PH balance spray or wipes, pat dry. ?Apply foam dressing to aid in off loading and protection from friction. Change every 3 days and PRN.? Re-consult wound care Nurse for wound deterioration or wound changes.
== END 2025-02-15 16:29 | disposition skilled nursing facility (03) | DRG 640 ==
LOC: HO.ED 19:42 → HO.EDOVER 19:47 → HO.S3 02-14 00:01 → HO.EDOVER 02-14 00:12 → HO.IMC 02-14 16:47
PROVIDERS: Physician Assistant Medical; Admitting Provider Student in an Organized Health Care Education/Training Program; Emergency Provider Emergency Medicine; PCP Family Medicine; Visit Provider Nurse Practitioner Acute Care
DX: E87.70 Fluid overload, unspecified (principal); N18.6 End stage renal disease; I12.0 Hypertensive chronic kidney disease with stage 5 chronic kidney disease or end stage renal disease; E87.1 Hypo-osmolality and hyponatremia; E11.22 Type 2 diabetes mellitus with diabetic chronic kidney disease; Z91.158 Patient's noncompliance with renal dialysis for other reason; E78.2 Mixed hyperlipidemia; D63.1 Anemia in chronic kidney disease; E87.5 Hyperkalemia; Z99.2 Dependence on renal dialysis; E03.9 Hypothyroidism, unspecified; Z79.4 Long term (current) use of insulin; Z79.890 Hormone replacement therapy; Z79.899 Other long term (current) drug therapy
CPT/HCPCS: 36415; 80048; 80053; 81001; 82947; 83036; 84100; 84443; 85007; 85025; 85027; 90999; 93005; 99285; J0613; J1644; J2270; Q5106

== ENCOUNTER → 2025-02-13 16:57 | Outpatient (BNV) | payer MEDICARE, SELFPAY | PROVIDERS: Admitting Provider Student in an Organized Health Care Education/Training Program; Emergency Provider Emergency Medicine; PCP Family Medicine; Visit Provider Internal Medicine Cardiovascular Disease | DX: R94.31 Abnormal electrocardiogram [ECG] [EKG] (principal); R79.9 Abnormal finding of blood chemistry, unspecified | CPT/HCPCS: 93010 ==

== ENCOUNTER → 2025-02-13 19:44 | Outpatient (BNV) | payer MEDICARE, SELFPAY | PROVIDERS: Admitting Provider Student in an Organized Health Care Education/Training Program; Emergency Provider Emergency Medicine; Visit Provider Nurse Practitioner Family | DX: E87.1 Hypo-osmolality and hyponatremia (principal); N18.6 End stage renal disease; Z99.2 Dependence on renal dialysis | CPT/HCPCS: 90935; 99222 ==

== ENCOUNTER → 2025-02-13 19:44 | Outpatient (BNV) | payer MEDICARE, SELFPAY | PROVIDERS: Admitting Provider Student in an Organized Health Care Education/Training Program; Emergency Provider Emergency Medicine; Visit Provider Student in an Organized Health Care Education/Training Program | DX: N18.6 End stage renal disease (principal); Z99.2 Dependence on renal dialysis; E87.1 Hypo-osmolality and hyponatremia | CPT/HCPCS: 99222; 99232; 99499 ==

== ENCOUNTER 2025-02-24 17:59 | Inpatient (IN) | payer MEDICARE, SELFPAY ==
[2025-02-24] VITALS (11 sets, daily range): BP systolic 110–146; BP diastolic 48–86; PULSE 81–93; RESP 14–28; TEMP 36.3–38.3; O2SAT 86–95; BMI 24.2
--- NOTE | ~2025-02-24 | XR_ITS ---
CLINICAL HISTORY: dyspnea 1 view chest x-ray Comparison: CR - XR CHEST 1V - 02/04/25 04:57 EDT Findings: Multiple bilateral airspace opacities, right greater than left. No pneumothorax or large pleural effusion. Stable cardiomediastinal silhouette. No acute fracture. IMPRESSION: Multifocal bilateral pulmonary opacities secondary to infection and/or edema. This document has been electronically signed by: Odalis Gaona DO on 02/24/2025 19:45:21
--- NOTE | 2025-02-24 18:10 | ECG_ITS ---
Test Reason : SOB Blood Pressure : */* mmHG Vent. Rate : 89 BPM Atrial Rate : 89 BPM P-R Int : 166 ms QRS Dur : 90 ms QT Int : 392 ms P-R-T Axes : 61 7 212 degrees QTcB Int : 476 ms Normal sinus rhythm Nonspecific ST and T wave abnormality Prolonged QT Abnormal ECG When compared with ECG of 13-Feb-2025 17:08, Nonspecific T wave abnormality now evident in Lateral leads Referred By: Josie Solorio Electronically Signed By: HOA KLEIN
--- NOTE | 2025-02-24 18:15 | ED.SOB ---
HPI - SOB/Dyspnea General Chief Complaint: Dyspnea Stated Complaint: SOB Time Seen by Provider: 02/24/25 18:09 Source: patient, EMS and old records reviewed Mode of arrival: EMS Limitations: other (poor historian) History of Present Illness ED Provider: ADRIANNA ARAGON Narrative: 70 yo male with PMH of ESRD on HD LUE AVF missed last two sessions, mood disorder, IDDM, hypothyroidism, HLD, anemia, GERD hx of frequent admissions for non compliance and missed HD sessions. Just admitted here and DC on 02/15 to [facility] for same issue missed HD and resp distress. He comes today after leaving AMA from [facility] yesterday. He then started to feel very short of breath and EMS found him hypoxic in the 70s no response to 15L NRB placed on CPAP - back up to 90s. He is upset about all the questions on arrival. No fevers, no chest pain. He is answering questions on arrival - did try to take off Bipap but with his persistent hypoxia to mid 80s and work of breathing he went back on Bipap. He did mention I didn't feel good and passed out family found him in bed labored but he is very vague and then gets upset with questions. MD elicited complaint: shortness of breath Pertinent past history: other (pulm edema) Onset (ago): hour(s) (few) Context: recent illness and other (noncompliance) Timing: progressively worsening Severity: severe Exacerbating factors: lying flat and exertion Relieving factors: oxygen and upright position Known history of: other Associated symptoms: orthopnea and other Treatment prior to arrival: oxygen and NIPPV Related Data Home Medications ?Medication ?Instructions ?Recorded ?Confirmed atenolol 100 mg tablet 1 tab PO DAILY 07/11/21 02/13/25 blood sugar diagnostic (FreeStyle 07/11/21 10/30/24 Lite Strips) levothyroxine 137 mcg tablet 1 tab PO DAILY@0600 07/11/21 02/13/25 pen needle, diabetic 31 gauge x 07/11/21 10/30/2403/03 (BD Ultra-Fine Short Pen Needle) amlodipine 5 mg tablet 5 mg PO BID 09/03/23 02/13/25 atorvastatin 40 mg tablet 40 mg PO BEDTIME 02/22/24 02/13/25 sodium zirconium cyclosilicate 10 10 g PO SUTUTHSA@0900 06/19/24 02/13/25 gram oral powder packet (Lokelma) alprazolam 0.5 mg tablet 0.5 mg PO DAILY PRN anxiety attack 10/30/24 02/13/25 alprazolam 2 mg tablet 2 mg PO BID 10/30/24 02/13/25 insulin lispro 100 unit/mL See Protocol subcut TIDAC PRN 10/30/24 02/13/25 subcutaneous pen (Humalog KwikPen Blood Glucose (U-100) Insulin) losartan 100 mg tablet 100 mg PO DAILY 01/09/25 02/13/25 sevelamer carbonate 800 mg tablet 1,600 mg PO TIDWM 01/09/25 02/13/25 albuterol sulfate 2.5 mg/3 mL 2.5 mg inhalation Q6H PRN Wheezing 01/18/25 02/13/25 (0.083 %) solution for nebulization albuterol sulfate 90 mcg/actuation 2 puff inhalation Q6H PRN 01/18/25 02/13/25 aerosol inhaler (Ventolin HFA) Shortness Of Breath Or Wheezing calcium carbonate (Tums) 200 mg PO Q8H PRN UPSET STOMACH 01/18/25 02/13/25 cholecalciferol (vitamin D3) 125 125 mcg PO SUTUTHSA@0900 01/18/25 02/13/25 mcg (5,000 unit) tablet (Vitamin D3) melatonin 5 mg tablet 5 mg PO BEDTIME PRN Insomnia 01/18/25 02/13/25 quetiapine 25 mg tablet (Seroquel) 25 mg PO Q12H PRN Agitation 01/18/25 02/13/25 vitamin B complex and vitamin C 1 cap PO DAILY 01/18/25 02/13/25 no.20-folic acid 1 mg capsule acetaminophen 325 mg tablet 650 mg PO Q6H PRN Fever Or Pain 02/13/25 02/13/25 bisacodyl 10 mg rectal suppository 10 mg UT DAILY PRN constipation, 02/13/25 02/13/25 MOM not effective after 24 hrs cefuroxime axetil 250 mg tablet 250 mg PO DAILY 02/13/25 02/13/25 esomeprazole magnesium 40 mg 40 mg PO BID@0630,1630 02/13/25 02/13/25 capsule,delayed release folic acid 1 mg tablet 1 mg PO DAILY 02/13/25 02/13/25 Previous Rx's ?Medication ?Instructions ?Recorded insulin glargine 100 unit/mL 7 unit (0.07 mL) subcut BEDTIME 02/09/25 subcutaneous solution (Lantus #10 mL U-100 Insulin) hydromorphone 4 mg tablet 4 mg PO Q8H #30 tabs 02/15/25 Allergies Allergy/AdvReac Type Severity Reaction Status Date / Time Penicillins [PENICILLINS] Allergy Unknown RASH Verified 02/24/25 18:10 tramadol [From ULTRAM] Allergy Unknown RASH Verified 02/13/25 14:58 trazodone [TRAZODONE] Allergy Unknown PRIAPISM Verified 02/13/25 14:58 risperidone [RISPERIDONE] AdvReac Severe dizzy, EPS Verified 02/13/25 14:58 Review of Systems Review of Systems: ROS unable to be obtained due to respiratory distress but also agitation with questions. [facility] Past Medical History Attestation statement: The following information was validated with the patient. Source: old records reviewed Medical History Hypothyroidism Influenza A CHF (congestive heart failure) Acute anemia Multifactorial gait disorder Pneumonia End stage renal disease on dialysis Occult blood positive stool Anemia Internal jugular vein thrombosis Abnormality of gait ESRD needing dialysis Secondary hyperparathyroidism (of renal origin) Anemia in chronic kidney disease DONIS (acute kidney injury) Diabetes Kidney failure HTN (hypertension) Social History Social History Household Members: Spouse Housing: House Are you a primary daycare assistant to a significant other at home: No Do you presently have visiting nurse or other home services: No Alcohol intake: former Comment: sitter in place Patient Tobacco Use Status: Never used Tobacco Cigarette Packs Per Day: 0 Cigarettes Per Day: 0.0 Years Smoked: NA Smoked in Last 30 Days: No e-Cigarette/Vaping Use: Never Used Second Hand Smoke Exposure: No Use of substances other than those prescribed or required for medical reasons: No Advance Directives: Yes Advance Directives on File: Yes Advance Directives Date on File: 09/07/23 service: No Physical Exam Vital Signs: Vital Signs: Last Vital Signs Temp 99.8 F 02/24/25 20:27 Pulse 84 02/24/25 20:26 Resp 14 02/24/25 20:26 BP 137/67 02/24/25 20:26 Pulse Ox 94 02/24/25 20:26 O2 Del Method High Flow Nasal C annula 02/24/25 20:26 O2 Flow Rate 45 02/24/25 20:26 Oxygen Flow Rate 7 02/24/25 18:05 BMI result Body Mass Index 24.2 Appearance: Alert eyes are closed but he is answering questions and has a strong squeeze. Oriented X3. Moderate acute distress. Eyes: Pupils equal, round and reactive to light. ENT: Pharynx normal. + JVD Neck: Normal inspection. Neck supple. CVS: Normal heart rate and rhythm. Pulses normal. Respiratory: Moderate respiratory distress - labored, single words. Breath sounds very diminished with crackles up to mid lung Abdomen: Soft and nontender. Skin: Skin warm and dry. pale skin color. Normal skin turgor. Extremities: trace pitting ankle symmetric lower extremity edema. Neuro: Oriented X 3. No motor deficit. No sensory deficit. CN2-12 intact Course Course Course Narrative: patient has fever infection suspected cefepime ordered 655pm Reevaluation(s) Reevaluation #1: VBG is normal - moved to high flow 741pm looking better Medications Administered Generic Name Dose Route Start Last Admin Trade Name Freq PRN Reason Stop Dose Admin Calcium Gluconate 2 gm in 100 mls @ 50 mls/hr 02/24/25 19:19 02/24/25 19:31 Calcium Gluconate IV 02/24/25 21:18 50 mls/hr ONCE ONE Administration Discontinued Medications Generic Name Dose Route Start Last Admin Trade Name Freq PRN Reason Stop Dose Admin Albuterol Sulfate 5 mg/ 0 mg 02/24/25 18:17 02/24/25 18:28 Albuterol/Ipratropium 3 ml INHALE 02/24/25 18:18 1 each ONCE ONE Administration Cefepime HCl 2 gm in 50 mls @ 100 mls/hr 02/24/25 18:54 02/24/25 19:28 Maxipime IV 02/24/25 19:23 Infused ONCE ONE Infusion Acetaminophen 1,000 mg in 100 mls @ 400 mls/hr 02/24/25 18:54 02/24/25 19:29 Ofirmev IV 02/24/25 19:08 Infused ONCE ONE Infusion Methylprednisolone Sodium Succinate 60 mg 02/24/25 18:09 02/24/25 18:35 Methylprednisolone Sod Succ 125 Mg/2 Ml Vial IVPUSH 02/24/25 18:10 60 mg ONCE ONE Administration Sodium Bicarbonate 50 meq 02/24/25 19:19 02/24/25 19:31 Sodium Bicarbonate 8.4% 50 Meq/50 Ml Syringe IVPUSH 02/24/25 19:20 50 meq ONCE ONE Administration Sodium Zirconium Cyclosilicate 5 gm 02/24/25 19:19 02/24/25 19:31 Sodium Zirconium Cyclosilicate 5 Gm Powd.Pack PO 02/24/25 19:20 5 gm ONCE ONE Administration Medical Decision Making Medical Decision Making [facility] Narrative: 70 yo male with PMH of ESRD on HD LUE AVF missed last two sessions, mood disorder, IDDM, hypothyroidism, HLD, anemia, GERD hx of frequent admissions now here again in respiratory distress after missing HD - he will remain on Bipap, his pressures are fine I am going to obtain labs, EKG, infl markers though infectious source unlikely, he did not mention chest pain. He is a very poor historian. Will involve renal for suspected emergent HD and hypoxia/pulm edema Differential Diagnosis Differential Diagnoses: The differential diagnosis associated with the presentation includes hyperK, pulm edema, volume overload, noncompliance Admission/Observation Consideration of admission/observation: Escalation of care including admission/observation considered admit for further workup, HD in AM Consult Healthcare Provider Management of the patient was discussed with: Hospitalist (hospitalist to admit) and Child Development Instructor Dr. Peraza aware will consult in AM and perform HD in AM Lab Data [facility] Lab Attestation statement: I reviewed the patient's lab results. 02/24/25 18:30 02/24/25 18:31 Labs: Lab Results 02/24/25 02/24/25 02/24/25 Range/Units 18:13 18:30 18:31 WBC 18.8 H (4.8-10.8) X10*3/uL RBC 2.54 L (4.60-5.80) X10*6/uL Hgb 8.1 L (14.0-18.0) g/dl Hct 23.8 L (42.0-52.0) % MCV 93.7 (80.0-98.0) fL MCH 31.9 (27.0-33.0) pg MCHC 34.0 (31.0-36.0) g/dl RDW 15.9 (11.0-16.0) % Plt Count 304 (160-400) X10*3/uL MPV 9.7 (9.4-12.4) fL Immature Gran % (Auto) 0.6 H (0.0-0.4) % Neut % (Auto) 88.6 H (45-73) % Lymph % (Auto) 3.5 L (20-40) % [place] % (Auto) 5.7 (2-11) % Eos % (Auto) 1.0 (0-4) % Baso % (Auto) 0.6 (0-2) % Lymph # (Auto) 0.7 L (1.2-4.9) X10*3/uL [place] # (Auto) 1.1 (0.1-1.2) X10*3/uL Eos # (Auto) 0.2 (0.0-0.4) X10*3/uL Baso # (Auto) 0.1 (0.0-0.2) X10*3/uL Abs Immat Gran (auto) 0.12 H (0.00-0.03) X10*3/uL Absolute Neuts (auto) 16.7 H (2.0-8.3) x10*3/uL Absolute Nucleated RBC 0.000 (0.0-0.012) X10*3/uL Nucleated RBC % (auto) 0.0 (0.0-0.2) /100WBC VBG pH (7.32-7.43) VBG pCO2 mmHg VBG pO2 mmHg VBG HCO3 (22-26) mmol/L VBG O2 Saturation VBG Base Excess mmol/L Sodium 133 L (135-145) mmol/L Potassium 5.8 H D (3.3-5.1) mmol/L Chloride 93 L (96-108) mmol/L Carbon Dioxide 22 (22-29) mmol/L Anion Gap 24 H (12-20) BUN 50 H (9-16) mg/dL Creatinine 10.50 H* (0.5-1.4) mg/dL Estim Creat Clear Calc 5.8 Estimated GFR 5 POC Glucose 81 (60-115) mg/dL Random Glucose 101 (60-115) mg/dL Lactic Acid 1.3 (0.5-2.0) mmol/L Calcium 8.7 (8.4-10.2) mg/dL Magnesium 2.2 (1.6-2.6) mg/dL Total Bilirubin 0.9 (0.0-1.0) mg/dL Direct Bilirubin 0.3 (0.0-0.5) mg/dL AST 23 (5-37) U/L ALT 8 (0-40) U/L Alkaline Phosphatase 80 (39-117) U/L Troponin I High Sens 39.5 H (<3.5-35.0) ng/L C-Reactive Protein 3.69 H (< or = 0.50) mg/dL B-Natriuretic Peptide 3021 H (<100) pg/mL Total Protein 6.7 (6.5-8.0) g/dL Albumin 3.7 (3.5-5.0) g/dL Procalcitonin 0.32 ng/mL Influenza Type A (PCR) (Negative) Influenza Type B (PCR) (Negative) RSV RNA Qual (PCR) (Negative) SARS-CoV-2 RNA (RT-PCR) (Negative) 02/24/25 02/24/25 Range/Units 18:37 18:43 WBC (4.8-10.8) X10*3/uL RBC (4.60-5.80) X10*6/uL Hgb (14.0-18.0) g/dl Hct (42.0-52.0) % MCV (80.0-98.0) fL MCH (27.0-33.0) pg MCHC (31.0-36.0) g/dl RDW (11.0-16.0) % Plt Count (160-400) X10*3/uL MPV (9.4-12.4) fL Immature Gran % (Auto) (0.0-0.4) % Neut % (Auto) (45-73) % Lymph % (Auto) (20-40) % [place] % (Auto) (2-11) % Eos % (Auto) (0-4) % Baso % (Auto) (0-2) % Lymph # (Auto) (1.2-4.9) X10*3/uL [place] # (Auto) (0.1-1.2) X10*3/uL Eos # (Auto) (0.0-0.4) X10*3/uL Baso # (Auto) (0.0-0.2) X10*3/uL Abs Immat Gran (auto) (0.00-0.03) X10*3/uL Absolute Neuts (auto) (2.0-8.3) x10*3/uL Absolute Nucleated RBC (0.0-0.012) X10*3/uL Nucleated RBC % (auto) (0.0-0.2) /100WBC VBG pH 7.40 (7.32-7.43) VBG pCO2 42 mmHg VBG pO2 45 mmHg VBG HCO3 26 (22-26) mmol/L VBG O2 Saturation TNP VBG Base Excess 1.9 mmol/L Sodium (135-145) mmol/L Potassium (3.3-5.1) mmol/L Chloride (96-108) mmol/L Carbon Dioxide (22-29) mmol/L Anion Gap (12-20) BUN (9-16) mg/dL Creatinine (0.5-1.4) mg/dL Estim Creat Clear Calc Estimated GFR POC Glucose (60-115) mg/dL Random Glucose (60-115) mg/dL Lactic Acid (0.5-2.0) mmol/L Calcium (8.4-10.2) mg/dL Magnesium (1.6-2.6) mg/dL Total Bilirubin (0.0-1.0) mg/dL Direct Bilirubin (0.0-0.5) mg/dL AST (5-37) U/L ALT (0-40) U/L Alkaline Phosphatase (39-117) U/L Troponin I High Sens (<3.5-35.0) ng/L C-Reactive Protein (< or = 0.50) mg/dL B-Natriuretic Peptide (<100) pg/mL Total Protein (6.5-8.0) g/dL Albumin (3.5-5.0) g/dL Procalcitonin ng/mL Influenza Type A (PCR) NEGATIVE (Negative) Influenza Type B (PCR) NEGATIVE (Negative) RSV RNA Qual (PCR) NEGATIVE (Negative) SARS-CoV-2 RNA (RT-PCR) NEGATIVE (Negative) Independent Interpretation I performed an independent interpretation of an: EKG and Plain X-Ray (+ opacities) Interpretation: Rate: Rhythm: [place]: Normal P waves. Normal FILEMON. Normal QRS complex. ST T wave : qTC: prior studies: The study has been interpreted contemporaneously by me. . Radiology Impression Discussion of test interpretation with radiology: I have reviewed the radiologist's reading. Independent Historian Clinical information obtained from an independent historian. History obtained from or confirmed by: EMS External Record Review External record reviewed: Inpatient record and Outpatient record Procedures Procedure Narrative Procedure Narrative: Ultrasound-guided IV 18 gauge 1-3/4 inch IV placed in right upper extremity. Adequate blood return flushes well secured with Tegaderm, performed by Rachele Ferrer PA-C Critical Care Time Critical Care Time Critical Care Time: Yes Total Critical Care Time: 60 Attestation: Time is exclusive of separately billable procedures. Time includes: direct patient care, patient reassessment, coordination of patient care, interpretation of data (laboratory data, pulse oximetry, venous blood gases and chest xrays), review of patient's medical records, medical consultation and documentation of patient care. Procedures excluded from critical care time: electrocardiography. I attest to this time spent taking care of the patient Discharge Plan Discharge Clinical Impression: Pneumonia, Acute hyperkalemia, Hypoxia Patient Disposition: Admitted As Inpatient Prescriptions: No Action levothyroxine 137 mcg tablet 1 tab PO DAILY@0600 atenolol 100 mg tablet 1 tab PO DAILY (DME) FreeStyle Lite Strips Strip MISCELLANEOUS TID (DME) pen needle, diabetic [BD Ultra-Fine Short Pen Needle] 31 gauge x 5/16 needle subcut DAILY Lokelma 10 gram Powder In Packet 10 g PO SUTUTHSA@0900 Rx Instructions: on non dialysis days losartan 100 mg tablet 100 mg PO DAILY sevelamer carbonate 800 mg tablet 1,600 mg PO TIDWM quetiapine [Seroquel] 25 mg Tablet 25 mg PO Q12H PRN (Reason: Agitation) Rx Instructions: Pt does not take at home, something placed on last Admit, new orders not given at home albuterol sulfate 2.5 mg /3 mL (0.083 %) Solution For Nebulization 2.5 mg INHALATION Q6H PRN (Reason: Wheezing) Rx Instructions: hasnt been taking at home calcium carbonate [Tums] 200 mg calcium (500 mg) Tablet,Chewable 200 mg PO Q8H PRN (Reason: UPSET STOMACH) Rx Instructions: Pt not taking B complex with C 20-folic acid 1 mg Capsule 1 cap PO DAILY Rx Instructions: only takes on off HD days albuterol sulfate [Ventolin HFA] 90 mcg/actuation Hfa Aerosol Inhaler 2 puff INHALATION Q6H PRN (Reason: Shortness Of Breath Or Wheezing) Patient Comments: reporting he is not using them melatonin 5 mg Tablet 5 mg PO BEDTIME PRN (Reason: Insomnia) Rx Instructions: Pt does not take at home, something placed on last Admit, new orders not given at home cholecalciferol (vitamin D3) [Vitamin D3] 125 mcg (5,000 unit) Tablet 125 mcg PO SUTUTHSA@0900 Rx Instructions: only takes on nonHD days insulin glargine [Lantus U-100 Insulin] 100 unit/mL Solution 7 unit SUBCUT BEDTIME Qty: 10 0RF Rx Instructions: Pt does not take at home, something placed on last Admit, new orders not given at home bisacodyl 10 mg Suppository 10 mg UT DAILY PRN (Reason: constipation, MOM not effective after 24 hrs) esomeprazole magnesium 40 mg Capsule,Delayed Release(Dr/Ec) 40 mg PO BID@0630,1630 folic acid 1 mg Tablet 1 mg PO DAILY cefuroxime axetil 250 mg tablet 250 mg PO DAILY Rx Instructions: END DATE 02/21/2025 acetaminophen 325 mg Tablet 650 mg PO Q6H PRN (Reason: Fever Or Pain) hydromorphone 4 mg tablet 4 mg PO Q8H Qty: 30 0RF Rx Instructions: Partial Fill upon patient request. amlodipine 5 mg tablet 5 mg PO BID atorvastatin 40 mg tablet 40 mg PO BEDTIME alprazolam 0.5 mg tablet 0.5 mg PO DAILY PRN (Reason: anxiety attack) Patient Comments: has been doing twice a day alprazolam 2 mg tablet 2 mg PO BID insulin lispro [Humalog KwikPen Insulin] 100 unit/mL insulin pen See Protocol subcut TIDAC PRN (Reason: Blood Glucose) Protocol: Insulin Correction Scale Less than or equal to 110 ---- Give (units): 0 111 to 150 Give (units): 0 151 to 200 Give (units): 2 201 to 250 Give (units): 4 251 to 300 Give (units): 6 301 to 350 Give (units): 8 Greater than 350 Give (units): 10 Call MD if Blood Glucose > : 350 Rx Instructions: Pt does not take at home, something placed on last Admit, new orders not given at home Print Language: French
[2025-02-24 18:17] LABS: Glucose, Whole Blood 81 mg/dL (60-115)
--- OUTSIDE RECORDS SUMMARY | 2025-02-24 18:22 | XMS_ITS | Encounter Summary ---
Author Organization [facility], Address [address] [place] [address] Phone Care Team Providers Care Commanding Officer Garage Name Role Phone Matias Tan MD Primary Care Provider [phone]- [phone] Reason for Visit * Reason Onset Date Comments Med Refill 06/20/2022 Encounter Details Date Type Department Care Team (Late st Contact Info) Description 06/20/2022 Refill [facility], [address] [place] [phone] Guanako Mercer MD [address] [facility] [place] [phone] Social History Tobacco Use Types Packs/Day Years [...] visit [facility] [address] [place] [address] documented as of this encounter Visit Diagnoses Not on filedocumented in this encounter Care Teams Commanding Officer Garage Relationship Specialty Start Date End Date Matias Tan MD [address] [facility] [place] [address] PCP - General Family Medicine 10/24/19 documented as of this encounter
--- OUTSIDE RECORDS SUMMARY | 2025-02-24 18:22 | XMS_ITS | Encounter Summary ---
Author Organization [facility], Address [address] [place] [address] Phone Care Team Providers Care Vice President Of Software Development Name Role Phone Matias Tan MD Primary Care Provider [phone]- [phone] Reason for Visit * Reason Comments Med Refill Encounter Details Date Type Department Care Team (Late st Contact Info) Description 11/28/2022 Refill [facility] [place] [address] [place] [address] Guanako Mercer MD [address] [place] [address] Social History Tobacco Use Types [...] [facility] [address] [place] [address] documented as of this encounter Visit Diagnoses Not on filedocumented in this encounter Care Teams Vice President Of Software Development Relationship Specialty Start Date End Date Matias Tan MD [address] [facility] [place] [address] PCP - General Family Medicine 10/24/19 documented as of this encounter
--- OUTSIDE RECORDS SUMMARY | 2025-02-24 18:22 | XMS_ITS | Encounter Summary ---
Author Organization [facility], Address [address] [place] [address] Phone Care Team Providers Care Kiln Stoker Name Role Phone Matias Tan MD Primary Care Provider +1- [phone] Reason for Visit * Reason Onset Date Comments Med Refill 06/08/2022 Encounter Details Date Type Department Care Team (Late st Contact Info) Description 06/08/2022 Refill [facility], [address] [place] [phone] Guanako Mercer MD [address] [facility] [place] [phone] Social History Tobacco Use Types Packs/Day Years [...] visit [facility] [address] [place] [address] documented as of this encounter Visit Diagnoses Not on filedocumented in this encounter Care Teams Kiln Stoker Relationship Specialty Start Date End Date Matias Tan MD [address] [facility] [place] [address] PCP - General Family Medicine 10/24/19 documented as of this encounter
--- OUTSIDE RECORDS SUMMARY | 2025-02-24 18:22 | XMS_ITS | Encounter Summary ---
Author Organization [facility], Address [address] [place] [address] Phone Care Team Providers Care Restaurant Cook Name Role Phone Matias Tan MD Primary Care Provider +1- [phone] Reason for Visit * Reason Onset Date Comments Med Refill 12/20/2022 Encounter Details Date Type Department Care Team (Late st Contact Info) Description 12/20/2022 Refill [facility] - [facility] Center [address] [place] [address] Kb Sung MD Social History Tobacco Use [...] visit [facility] [address] [place] [address] documented as of this encounter Visit Diagnoses Not on filedocumented in this encounter Care Teams Restaurant Cook Relationship Specialty Start Date End Date Matias Tan MD [facility] [address] [facility] [place] [address] PCP - General Family Medicine 10/24/19 documented as of this encounter
--- OUTSIDE RECORDS SUMMARY | 2025-02-24 18:22 | XMS_ITS | Encounter Summary ---
Author Organization [facility] Address [address] [place] [address] Care Team Providers Care Braker Passenger Train Name Role Phone Yulia Smart MD Primary Care Provider Encounter Details Date Type Department Care Team (Late st Contact Info) Description 01/18/[address] [facility] - Main Lab [address] [facility] [place] [address] Yulia Smart MD [address] [place] [address] Encounter for other general examination Social History [...] LAB HEMETOLOGY METHOD 01/18/2025 7:10 AM EDT [facility] Neutrophils Relative 77.1 % LAB [...] LAB HEMETOLOGY METHOD 01/18/2025 7:10 AM EDT [facility] Blood Venous blood specimen / Unknown Venipuncture / Unknown 01/18/2025 5:06 AM EDT 01/18/2025 6:20 AM EDT us Yulia Smart MD LAB BLOOD ORDERABLES Final Resu lt Performing Organization Address City/[facility]/ZIP Co de Phone Number [facility] [address] [place] [address], [place] [phone] * Ammonia (01/18/2025 5:06 AM EDT) Ammonia 28 11 - 35 mcmol/L LAB CHEMISTRY METHOD 01/18/2025 6:53 AM EDT [facility] Blood Venous blood specimen / Unknown Venipuncture / Unknown 01/18/2025 5:06 AM EDT 01/18/2025 6:20 AM EDT us Yulia Smart MD LAB BLOOD ORDERABLES Final Resu lt Performing Organization Address [facility] Co de Phone Number [facility] [address] [place] [address], [place] [phone] * Thyroid stimulating hormone (01/18/2025 5:06 AM EDT) TSH 1.94 0.40 - 4.00 mcIU/mL LAB CHEMISTRY METHOD 01/18/2025 9:08 AM EDT [facility] Blood Venous blood specimen / Unknown Venipuncture / Unknown 01/18/2025 5:06 AM EDT 01/18/2025 6:20 AM EDT us Yulia Smart MD LAB BLOOD ORDERABLES Final Resu lt Performing Organization Address City/[facility]/ZIP Co de Phone Number [facility] [address] [place] [address], [place] [phone] * (ABNORMAL) Vitamin B12 (01/18/2025 5:06 AM EDT) [facility] Vitamin B-12 1,241(H) 250 - 900 pcg/mL LAB CHEMISTRY METHOD 01/18/2025 7:36 AM EDT [facility] Blood Venous blood specimen / Unknown Venipuncture / Unknown 01/18/2025 5:06 AM EDT 01/18/2025 6:20 AM EDT us Yulia Smart MD LAB BLOOD ORDERABLES Final Resu lt [facility] [address] [place] [address], [place] [phone] * (ABNORMAL) Comprehensive metabolic panel (01/18/2025 5:06 AM EDT) [facility] Sodium 123(L) 133 - 145 [...] MD LAB BLOOD ORDERABLES Final Resu lt [facility] ([facility] LAB [address] [place] [address], documented in this encounter Visit Diagnoses Diagnosis Encounter for other general examination documented in this encounter Care Teams Braker Passenger Train Relationship Specialty Start Date End Date Yulia Smart MD [address] [place] [address] PCP - General Hospitalist Medicine 01/13/25 documented as of this encounter
--- OUTSIDE RECORDS SUMMARY | 2025-02-24 18:22 | XMS_ITS | Encounter Summary ---
Author Organization [facility] Address [address] [place] [address] Phone Care Team Providers Care Hypo Dipper Name Role Phone Matias Tan MD Primary Care Provider +1- [phone] Reason for Visit * Reason Comments Med Refill Encounter Details Date Type Department Care Team (Late st Contact Info) Description 06/24/2022 Refill [facility] [place], [address] [facility] [place] [phone] Guanako Mercer MD [address] [facility] [address] [place] [phone] Social History Tobacco Use Types Packs/Day Years [...] visit [facility] [place] - [facility] Center [address] [place] [phone] documented as of this encounter Visit Diagnoses Not on filedocumented in this encounter Care Teams Hypo Dipper Relationship Specialty Start Date End Date Matias Tan MD [address] [place] [phone] PCP - General Family Medicine 10/24/19 documented as of this encounter
--- OUTSIDE RECORDS SUMMARY | 2025-02-24 18:22 | XMS_ITS | Encounter Summary ---
Author Organization [facility], Address [address] [place] [address] Phone Care Team Providers Care Lumber Chain Offbearer Name Role Phone Matias Tan MD Primary Care Provider +1- [phone] Reason for Visit * Reason Comments Med Refill Encounter Details Date Type Department Care Team (Late st Contact Info) Description 01/26/2023 Refill [facility] [address] [place] [address] Gabriela Hernandez PA Social History Tobacco [...] visit [facility] [place], - Vascular Access Center [address] [place] [address] documented as of this encounter Visit Diagnoses Not on filedocumented in this encounter Care Teams Lumber Chain Offbearer Relationship Specialty Start Date End Date Matias Tan MD [facility] [address] [place] [address] PCP - General Family Medicine 10/24/19 documented as of this encounter
--- OUTSIDE RECORDS SUMMARY | 2025-02-24 18:22 | XMS_ITS | Encounter Summary ---
Author Organization [facility], Address [address] [place] [address] Phone Care Team Providers Care Water Taxi Boat Mate Name Role Phone Matias Tan MD Primary Care Provider +1- [phone] Reason for Visit * Reason Comments Med Refill Encounter Details Date Type Department Care Team (Late st Contact Info) Description 05/08/2024 Refill [facility] [address] [place] [address] Gabriela Hernandez PA Social History Tobacco [...] visit [facility] [place], - Vascular Access Center [address] [place] [place] [address] documented as of this encounter Visit Diagnoses Not on filedocumented in this encounter Care Teams Water Taxi Boat Mate Relationship Specialty Start Date End Date Matias Tan MD [facility] [address] [place] [address] PCP - General Family Medicine 10/24/19 documented as of this encounter
--- OUTSIDE RECORDS SUMMARY | 2025-02-24 18:22 | XMS_ITS | Encounter Summary ---
Author Organization [facility] [place], Address [address] [place] [address] Phone Care Team Providers Care Mixed Livestock Farm Worker Name Role Phone Matias Tan MD Primary Care Provider +1- [phone] Reason for Visit * Reason Comments Med Refill Encounter Details Date Type Department Care Team (Late st Contact Info) Description 07/17/2022 Refill [facility] - Vascular Access Center [address] [place] [phone] Guanako Mercer MD [address] [place] [address] Social History Tobacco Use Types Packs/Day Years [...] visit [facility] [place] - [facility] Center [address] [place] [phone] documented as of this encounter Visit Diagnoses Not on filedocumented in this encounter Care Teams Mixed Livestock Farm Worker Relationship Specialty Start Date End Date Matias Tan MD [address] [place] [address] PCP - General Family Medicine 10/24/19 documented as of this encounter
--- OUTSIDE RECORDS SUMMARY | 2025-02-24 18:22 | XMS_ITS | Clinical Summary ---
Author Organization [facility], Address [address] [place] [address] Phone Care Team Providers Care Batch Attendant Name Role Phone Matias Tan MD Primary Care Provider +1- [phone] Allergies Active Allergy Reactions Criticality Noted Date [...] HOURS NEEDED FOR PAIN 2 Active B Xzxmsqh-C-Xmhll Acid (Dialyvite 800) 0.8 MG tablet Take [...] Only [facility] [address] [address] Denys Mueller MD 01/31/2025 Treatment [facility] [place] [address] [place] [address] Guanako Mercer MD End stage renal disease; Dependence on renal dialysis 01/04/2025 Orders Only [facility] [address] [address] Denys Mueller MD 01/02/2025 Orders Only [facility] [address] [address] Denys Mueller MD 01/02/2025 Treatment [facility] [place] [address] [place] [address] Tiffani Olson FNP-C End stage renal disease; Dependence on renal dialysis 12/28/2024 Treatment [facility] [address] [place] [address] Tiffani Olson FNP-C End stage renal disease; Dependence on renal dialysis 12/28/2024 Refill [facility] [address] [address] Sawyer Davis MD 12/26/2024 Orders Only [facility] [address] [address] Denys Mueller MD 12/23/2024 Treatment [facility] [place] [address] [place] [address] Tiffani Olson FNP-C End stage renal disease; Dependence on renal dialysis 12/21/2024 Orders Only [facility] [address] [address] Denys Mueller MD 12/19/2024 Orders Only [facility] [address] [address] Denys Mueller MD 12/16/2024 Treatment [facility] [place] [address] [place] [address] Sawyer Davis MD End stage renal disease; Dependence on renal dialysis 12/14/2024 Orders Only [facility] [address] [address] Denys Mueller MD 12/14/2024 Treatment [facility] [place] [address] [place] [address] Tiffani Olson FNP-C 12/13/2024 Treatment [facility] [place] [address] [place] [address] Missy Izquierdo APRN 12/12/2024 Orders Only [facility] [address] [address] Denys Mueller MD 12/07/2024 Orders Only [facility] [address] [address] Denys Mueller MD 12/07/2024 Treatment [facility] [place] [address] [place] [address] Tiffani Olson FNP-C 11/30/2024 Orders Only [facility] [address] [address] Denys Mueller MD from Last 3 Months Immunizations Immunization Administration Dates Next Due Influenza Whole 08/21/2010 Influenza, Unspecified 09/09/2021,2019,10/18/2019,07/02/2017 ,07/01/2017,10/18/2014,11/21/2013, 1 Pneumococcal Conjugate 13-Valent 09/21/2020 Pneumococcal Polysaccharide 09/09/2021,11/03/201 0 Tdap 04/13/2010 Family History Medical History [...] visit [facility] [place] - [facility] Access Center [address] [place] [address] Health Maintenance Due Date Last [...] 12/07/2024 HEMATOLOGY Routine 12/07/2024 HEMATOLOGY Routine 11/30/2024 SPECIAL CHEMISTRY Routine 05/04/2024 from Last 3 Months or Most Recently Relevant to Health Maintenance Results * HD KINETICS (02/03/2025) Only the most recent of2 resultswithin the time period is included. Pathologist [facility] % Urea Reduction 77 65 - 80 % [facility] 02/03/2025 02/07/2025 8:5 8 AM EDT Narrative Resulting Agency Comment Specimen source: Plasma us Denys Mueller MD LAB BLOOD ORDERABLES Final Re sult [facility] [employer] See order comments or contact performing lab Unknown, [place] * POST CHEMISTRY (02/03/2025) Only the most recent of2 resultswithin the time period is included. BUN Post Dialysis 8 6 - 19 mg/dL [facility] 02/03/2025 02/07/2025 8:5 8 AM EDT Narrative [facility] - 02/07/2025 Unless otherwise specified, test(s) performed at: [facility], [address] [place], [place] [id number] FURNITURE ASSOCIATE: Blane Ramsay M.D. For any questions, please call customer service at FREQUENCY:MONTHLY Resulting Agency Comment Specimen source: Plasma Denys Mueller MD LAB BLOOD ORDERABLES Final Re sult Performing Organization Address [facility] de Phone Number [facility] [employer] [facility] See order comments or contact performing lab Unknown, [place] * IMMUNO CHEMISTRY (02/03/2025) Only the most recent of3 resultswithin the time period is included. [facility] Hep B Surface Ag Negative Negative [facility] 02/03/2025 02/07/2025 8:4 7 AM EDT Narrative [facility] - 02/07/2025 Unless otherwise specified, test(s) performed at: [facility], [address] [place] [address] FURNITURE ASSOCIATE: Blane Ramsay M.D. For any questions, please call customer service at FREQUENCY:MONTHLY Resulting Agency Comment Specimen source: Serum Denys Mueller MD LAB BLOOD ORDERABLES Final Re [facility] Performing Organization Address [facility] de Phone Number [facility] [employer] See order comments or contact performing lab Unknown, [place] * (ABNORMAL) HEMATOLOGY (02/03/2025) Only the most recent of7 resultswithin the time period is included. [facility] Hemoglobin 8.0(L) 14.0 - 18.0 g/dL [facility] Comment: Verified by repeat analysis. Hemoglobin x 3 24(L) 42.0 - 54.0 % [facility] 02/03/2025 02/07/2025 9:4 8 AM EDT Narrative [facility] - 02/07/2025 Unless otherwise specified, test(s) performed at: [facility], [address] [place] [address] FURNITURE ASSOCIATE: Blane Ramsay M.D. For any questions, please call customer service at FREQUENCY:MONTHLY Resulting Agency Comment Specimen source: Blood us Denys Mueller MD LAB BLOOD ORDERABLES Final Re sult [facility] See order comments or contact performing lab Unknown, [place] * (ABNORMAL) [facility] (02/03/2025) Only the most recent of11 resultswithin the time period is included. BUN [...] 02/07/2025 Unless otherwise specified, test(s) performed at: [facility], [address] [place] [address] FURNITURE ASSOCIATE: Blane Ramsay M.D. For any questions, please call customer service at FREQUENCY:MONTHLY Resulting Agency Comment Specimen source: Serum Denys Mueller MD LAB BLOOD ORDERABLES Final Re sult Performing Organization Address [facility]/ZIP Co de Phone Number [facility] See order comments or contact performing lab Unknown, [place] * [facility] Results (02/03/2025) Only the most recent of2 resultswithin the time period is included. eKt/V (Tattersall) 1.59 [facility] WSTDKT/V 0.8 Knowledge Center spKt/V (Daugirdas II) 1.82 [facility] 02/03/2025 02/03/2025 Result [facility] Ordering Provider LAB BLOOD ORDERABLES Final Result Performing Organization Address [facility] de Phone Number [facility] Contact Performing lab Unknown, [place] * SPECIAL CHEMISTRY (05/04/2024) Hemoglobin A1C 5.1 4.8 - 5.9 % [facility] 05/04/2024 05/05/2024 9:5 7 AM EDT Narrative [facility] - 05/05/2024 Unless otherwise specified, test(s) performed at: [facility], [address] [place] [address] FURNITURE ASSOCIATE: Blane Ramsay M.D. For any questions, please call customer service at FREQUENCY:MONTHLY Resulting Agency Comment Specimen source: Blood Denys Mueller MD LAB BLOOD BANK TEST ORDERABLE S Final Result Performing Organization Address [facility] Co de Phone Number [facility] See order comments or contact performing lab Unknown, [place] from Last 3 Months or Most Recently Relevant to Health Maintenance Insurance Medicare [facility] Medicare [facility] Care Teams Batch Attendant Relationship Specialty Start Date End Date Matias Tan MD [address] [place] [address] PCP - General Family Medicine 10/24/19
--- OUTSIDE RECORDS SUMMARY | 2025-02-24 18:22 | XMS_ITS | Encounter Summary ---
Author Organization [facility] [place], Address [address] [place] [address] Phone Care Team Providers Care Caddymaster Name Role Phone Matias Tan MD Primary Care Provider +1- [phone] Reason for Visit * Reason Onset Date Comments Med Refill 12/23/2022 Encounter Details Date Type Department Care Team (Late st Contact Info) Description 12/23/2022 Refill [facility] - Vascular Access Center [address] [place] [phone] Ferdinand Monroe MD [address] [place] [phone] Social History Tobacco Use Types Packs/Day Years [...] visit [facility] [place] - V[facility] Access Center [address] [place] [address] [place] [phone] documented as of this encounter Visit Diagnoses Not on filedocumented in this encounter Care Teams Caddymaster Relationship Specialty Start Date End Date Matias Tan MD [address] [facility] [place] [address] PCP - General Family Medicine 10/24/19 documented as of this encounter
--- OUTSIDE RECORDS SUMMARY | 2025-02-24 18:22 | XMS_ITS | Encounter Summary ---
Author Organization [facility] Address [address] [place] [address] Care Team Providers Care Registered Nurse Obstetrics Name Role Phone Yulia Smart MD Primary Care Provider Encounter Details Date Type Department Care Team (Late st Contact Info) Description 01/14/[address] [facility] - Main Lab [address] [place] [address] Yulia Smart MD [address] [place] [address] Encounter for other general examination Social History [...] LAB CHEMISTRY METHOD 01/14/2025 12:17 PM EDT [facility] Blood Venous blood specimen / Unknown Venipuncture / Unknown 01/14/2025 5:58 AM EDT 01/14/2025 9:53 AM EDT us Yulai Smart MD LAB BLOOD ORDERABLES Final Resu lt [facility] [place] ([facility] HOSPITAL LAB [address] [place] [address], documented in this encounter Visit Diagnoses Diagnosis Encounter for other general examination documented in this encounter Care Teams Registered Nurse Obstetrics Relationship Specialty Start Date End Date Yuila Smart MD [address] [place] [address] PCP - General Hospitalist Medicine 01/13/25 documented as of this encounter
--- OUTSIDE RECORDS SUMMARY | 2025-02-24 18:22 | XMS_ITS | Encounter Summary ---
Author Organization [facility] [place], Address [address] [place] [address] Phone Care Team Providers Care Electronic Installer Name Role Phone Matias Tan MD Primary Care Provider +1- [phone] Reason for Visit * Reason Onset Date Comments Med Refill 07/19/2022 Encounter Details Date Type Department Care Team (Late st Contact Info) Description 07/19/2022 Refill [facility] - Vascular Access Center [address] [place] [address] Guanako Mercer MD [address] [place] [address] Social History Tobacco Use Types Packs/Day Years [...] visit [facility] [place] - V[facility] Access Center [address] [place] [phone] documented as of this encounter Visit Diagnoses Not on filedocumented in this encounter Care Teams Electronic Installer Relationship Specialty Start Date End Date Matias Tan MD [facility] [address] [facility] [place] [address] PCP - General Family Medicine 10/24/19 documented as of this encounter
--- OUTSIDE RECORDS SUMMARY | 2025-02-24 18:22 | XMS_ITS | Encounter Summary ---
Author Organization [facility] [place], Address [address] [place] [address] Phone Care Team Providers Care Block Placer Name Role Phone Matias Tan MD Primary Care Provider +1- [phone] Reason for Visit * Reason Comments Med Refill Encounter Details Date Type Department Care Team (Late st Contact Info) Description 12/28/2024 Refill [facility] [address] [place] [phone] Sawyer Davis MD [address] [facility] [place] [address] Social History Tobacco Use Types [...] visit [facility] [place] - V[facility] Access Center [address] [place] [address] documented as of this encounter Procedures Procedure Name Priority Date/Time Associated Diagnosis Comments HEMATOLOGY Routine 12/28/2024 documented in this encounter Results * (ABNORMAL) HEMATOLOGY (12/28/2024) Hemoglobin 11.5(L) 14.0 - 18.0 g/dL [facility] Hemoglobin x 3 34.5(L) 42.0 - 54.0 % [facility] 12/28/2024 12/29/2024 9:1 7 AM EDT Narrative [facility] - 12/29/2024 Unless otherwise specified, test(s) performed at: [facility], [address] [place] [address] MACHINE PLATE STACKER: Blane Ramsay M.D. For any questions, please call customer service at FREQUENCY:OTHER Resulting Agency Comment Specimen source: Blood us Densy Mueller MD LAB BLOOD ORDERABLES Final Re sult [facility] See order comments or contact performing lab [facility], [place] documented in this encounter Visit Diagnoses Not on filedocumented in this encounter Care Teams Block Placer Relationship Specialty Start Date End Date Matias Tan MD [facility] [address] [facility] [place] [phone] PCP - General Family Medicine 10/24/19 documented as of this encounter
--- OUTSIDE RECORDS SUMMARY | 2025-02-24 18:22 | XMS_ITS | Encounter Summary ---
Author Organization [facility] [place], Address [address] [place] [address] Phone Care Team Providers Care Engineering Design Manager Name Role Phone Matias Tan MD Primary Care Provider +1- [phone] Encounter Details Date Type Department Care Team (Late st Contact Info) Description 02/02/2024 Documentation Only [facility] [place], [address] [place] [phone] Alexandria Yusuf [address] [place] [address] Social History Tobacco Use Types [...] visit [facility] [place] - V[facility] Access Center [address] [place] [phone] documented as of this encounter Visit Diagnoses Not on filedocumented in this encounter Care Teams Engineering Design Manager Relationship Specialty Start Date End Date Matias Tan MD [address] [place] [address] PCP - General Family Medicine 10/24/19 documented as of this encounter
--- OUTSIDE RECORDS SUMMARY | 2025-02-24 18:22 | XMS_ITS | Encounter Summary ---
Author Organization [facility], Address [address] [place] [address] Phone Care Team Providers Care Die Holder Name Role Phone Matias Tan MD Primary Care Provider +1- [phone] Reason for Visit * Reason Comments Med Refill Encounter Details Date Type Department Care Team (Late st Contact Info) Description 09/24/2023 Refill [facility] [address] [place] [address] Gabriela Hernandez PA [...] [facility] [place] - [facility] Center [address] [address] documented as of this encounter Visit Diagnoses Not on filedocumented in this encounter Care Teams Die Holder Relationship Specialty Start Date End Date Matias Tan MD [facility] [address] [place] [address] PCP - General Family Medicine 10/24/19 documented as of this encounter
--- OUTSIDE RECORDS SUMMARY | 2025-02-24 18:22 | XMS_ITS | Encounter Summary ---
Author Organization [facility] [place], Address [address] [place] [address] Phone Care Team Providers Care Pin Puller Name Role Phone Matias Tan MD Primary Care Provider +1- [phone] Reason for Visit * Reason Onset Date Comments Med Refill 12/20/2022 Encounter Details Date Type Department Care Team (Late st Contact Info) Description 12/20/2022 Refill [facility] - Vascular Access Center [address] [place] [address] Kb Sung MD Social History Tobacco Use [...] visit [facility] [place] - [facility] [address] [place] [address] documented as of this encounter Visit Diagnoses Not on filedocumented in this encounter Care Teams Pin Puller Relationship Specialty Start Date End Date Matias Tan MD [facility] [address] [facility] [place] [address] PCP - General Family Medicine 10/24/19 documented as of this encounter
--- OUTSIDE RECORDS SUMMARY | 2025-02-24 18:22 | XMS_ITS | Encounter Summary ---
Author Organization [facility] [place], Address [address] [place] [address] Phone Care Team Providers Care Irradiated Fuel Handler Name Role Phone Matias Tan MD Primary Care Provider +1- [phone] Reason for Visit * Reason Comments Med Refill Encounter Details Date Type Department Care Team (Late st Contact Info) Description 01/26/2023 Refill [facility] [address] [place] [phone] Denys Mueller MD [address] [place] [address] Social History Tobacco Use Types [...] visit [facility] [place] - [facility] [address] [place] [phone] documented as of this encounter Visit Diagnoses Not on filedocumented in this encounter Care Teams Irradiated Fuel Handler Relationship Specialty Start Date End Date Matias Tan MD [address] [place] [address] PCP - General Family Medicine 10/24/19 documented as of this encounter
--- OUTSIDE RECORDS SUMMARY | 2025-02-24 18:22 | XMS_ITS | Encounter Summary ---
Author Organization [facility] [place], Address [address] [place] [address] Phone Care Team Providers Care Product Mgmt Dev Manager Name Role Phone Matias Tan MD Primary Care Provider +1- [phone] Reason for Visit * Reason Onset Date Comments Med Refill 06/24/2022 Encounter Details Date Type Department Care Team (Late st Contact Info) Description 06/24/2022 Refill [facility], [address] [place] [phone] Guanako Mercer MD [address] [place] [phone] Social History Tobacco Use Types Packs/Day Years [...] visit [facility] [place] - [facility] [address] [place] [phone] documented as of this encounter Visit Diagnoses Not on filedocumented in this encounter Care Teams Product Mgmt Dev Manager Relationship Specialty Start Date End Date Matias Tan MD [address] [place] [address] PCP - General Family Medicine 10/24/19 documented as of this encounter
--- OUTSIDE RECORDS SUMMARY | 2025-02-24 18:22 | XMS_ITS | Encounter Summary ---
Author Organization [facility] [place], Address [address] [place] [address] Phone Care Team Providers Care Draw Hand Name Role Phone Matias Tan MD Primary Care Provider +1- [phone] Encounter Details Date Type Department Care Team (Late st Contact Info) Description 01/10/2022 Documentation Only [facility] [place], [address] [place] [phone] [address] [place] [address] Social History Tobacco Use Types [...] visit [facility] [place] - [facility] Center [address] [place] [phone] documented as of this encounter Visit Diagnoses Not on filedocumented in this encounter Care Teams Draw Hand Relationship Specialty Start Date End Date Matias Tan MD [address] [place] [address] PCP - General Family Medicine 10/24/19 documented as of this encounter
--- OUTSIDE RECORDS SUMMARY | 2025-02-24 18:22 | XMS_ITS | Encounter Summary ---
Author Organization [facility] [place], Address [address] [place] [address] Phone Care Team Providers Care Travel Rn Name Role Phone Matias Tan MD Primary Care Provider +1- [phone] Encounter Details Date Type Department Care Team (Late st Contact Info) Description 03/11/2023 Documentation Only [facility] [address] [place] [phone] Jose Luis Amezcua MD Social History Tobacco [...] [facility] [address] [place] [phone] documented as of this encounter Visit Diagnoses Not on filedocumented in this encounter Care Teams Travel Rn Relationship Specialty Start Date End Date Matias Tan MD [address] [place] [address] PCP - General Family Medicine 10/24/19 documented as of this encounter
--- OUTSIDE RECORDS SUMMARY | 2025-02-24 18:22 | XMS_ITS | Encounter Summary ---
Author Organization [facility] [place], Address [address] [place] [address] Phone Care Team Providers Care Staple Shear Operator Name Role Phone Matias Tan MD Primary Care Provider +1- [phone] Reason for Visit * Reason Comments Med Refill Encounter Details Date Type Department Care Team (Late st Contact Info) Description 09/24/2023 Refill [facility] [address] [place] [phone] Denys Mueller MD [address] [place] [address] Social History Tobacco Use Types [...] visit [facility] [place] - [facility] [address] [place] [phone] documented as of this encounter Visit Diagnoses Not on filedocumented in this encounter Care Teams Staple Shear Operator Relationship Specialty Start Date End Date Matias Tan MD [address] [place] [address] PCP - General Family Medicine 10/24/19 documented as of this encounter
--- OUTSIDE RECORDS SUMMARY | 2025-02-24 18:23 | XMS_ITS | Encounter Summary ---
Author Organization [facility] Address [address] [place] [address] Care Team Providers Care Furnace Erector Name Role Phone Yulia Smart MD Primary Care Provider Encounter Details Date Type Department Care Team (Late st Contact Info) Description 01/13/[address] [facility] - Main Lab [address] [facility] [place] [address] Yulia Smart MD [address] [place] [address] Encounter for other general examination Social History [...] K/mcL LAB HEMETOLOGY METHOD 01/13/2025 11:17 AM [facility] RBC 3.40(L) 4.50 - 5.50 M/mcL LAB HEMETOLOGY METHOD 01/13/2025 11:17 AM [facility] Hemoglobin 10.6(L) 13.5 - 17.5 g/dL LAB HEMETOLOGY METHOD 01/13/2025 11:17 AM [facility] Hematocrit 30.8(L) 42.0 - 54.0 % LAB HEMETOLOGY METHOD 01/13/2025 11:17 AM [facility] MCV 89.8 79.0 - 98.0 FL LAB HEMETOLOGY METHOD 01/13/2025 11:17 AM [facility] MCH 30.9 27.0 - 32.0 pcg LAB HEMETOLOGY METHOD 01/13/2025 11:17 AM [facility] MCHC 34.4 32.0 - 37.0 g/dL LAB HEMETOLOGY METHOD 01/13/2025 11:17 AM [facility] RDW 14.5 11.0 - 15.0 % LAB HEMETOLOGY METHOD 01/13/2025 11:17 AM [facility] Platelets 105(L) 130 - 400 K/mcL LAB HEMETOLOGY METHOD 01/13/2025 11:17 AM [facility] MPV 11.5(H) 7.0 - 11.0 FL LAB HEMETOLOGY METHOD 01/13/2025 11:17 AM [facility] NRBC 0.0 <1.0 % LAB HEMETOLOGY METHOD 01/13/2025 11:17 AM [facility] NRBC Absolute 0.00 <0.10 K/mcL LAB HEMETOLOGY METHOD 01/13/2025 11:17 AM [facility] Neutrophils Relative 49.1 % LAB HEMETOLOGY METHOD 01/13/2025 11:17 AM [facility] Lymphocytes Relative 31.3 % LAB HEMETOLOGY METHOD 01/13/2025 11:17 AM [facility] Monocytes Relative 13.0 % LAB HEMETOLOGY METHOD 01/13/2025 11:17 AM [facility] Eosinophils Relative 6.0 % LAB HEMETOLOGY METHOD 01/13/2025 11:17 AM [facility] Basophils Relative 0.4 % LAB HEMETOLOGY METHOD 01/13/2025 11:17 AM [facility] Immature Granulocytes Relative 0.2 % LAB HEMETOLOGY METHOD 01/13/2025 11:17 AM [facility] Neutrophils Absolute 2.38 1.50 - 7.00 K/mcL LAB HEMETOLOGY METHOD 01/13/2025 11:17 AM [facility] Lymphocytes Absolute 1.52 1.00 - 5.00 K/mcL LAB HEMETOLOGY METHOD 01/13/2025 11:17 AM [facility] Monocytes Absolute 0.63 0.20 - 1.00 K/mcL LAB HEMETOLOGY METHOD 01/13/2025 11:17 AM [facility] Eosinophils Absolute 0.29 0.00 - 0.50 K/mcL LAB HEMETOLOGY METHOD 01/13/2025 11:17 AM [facility] Basophils Absolute 0.02 0.00 - 0.20 K/mcL LAB HEMETOLOGY METHOD 01/13/2025 11:17 AM [facility] Immature Granulocytes Absolute 0.01 0.00 - 0.03 K/mcL LAB HEMETOLOGY METHOD 01/13/2025 11:17 AM [facility] Blood Venous blood specimen / Unknown Venipuncture / Unknown 01/13/2025 5:26 AM EDT 01/13/2025 10:00 AM EDT us Yulia Smart MD LAB BLOOD ORDERABLES Final Resu lt Performing Organization Address City/[facility]/ZIP Co de Phone Number [facility] [address] [place] [address], [place] [phone] * (ABNORMAL) Magnesium (01/13/2025 5:26 AM EDT) Magnesium 1.8(L) 1.9 - 2.6 mg/dL LAB CHEMISTRY METHOD 01/13/2025 12:11 PM EDT [facility] Blood Venous blood specimen / Unknown Venipuncture / Unknown 01/13/2025 5:26 AM EDT 01/13/2025 10:00 AM EDT us Yulia Smart MD LAB BLOOD ORDERABLES Final Resu lt Performing Organization Address [facility]/ZIP La de Phone Number [facility] [address] [place] [address], [place] [phone] * Hemoglobin A1c (01/13/2025 5:26 AM EDT) Hemoglobin A1C 5.6 <6.5 % LAB CHEMISTRY METHOD 01/13/2025 12:43 PM EDT [facility] Mean Bld Glu Estim. 114 mg/dL LAB CHEMISTRY METHOD 01/13/2025 12:43 PM EDT [facility] Blood Venous blood specimen / Unknown Venipuncture / Unknown 01/13/2025 5:26 AM EDT 01/13/2025 10:00 AM EDT us Yulia Smart MD LAB BLOOD ORDERABLES Final Resu lt Performing Organization Address City/[facility]/ZIP Co de Phone Number [facility] [address] [place] [address], [place] [phone] * (ABNORMAL) Comprehensive metabolic panel (01/13/2025 5:26 AM EDT) Sodium 129(L) 133 - 145 mmol/L LAB CHEMISTRY METHOD 01/13/2025 12:12 PM [facility] Potassium 3.6 3.5 - 5.5 mmol/L LAB CHEMISTRY METHOD 01/13/2025 12:12 PM [facility] Chloride 85(L) 96 - 110 mmol/L LAB CHEMISTRY METHOD 01/13/2025 12:12 PM [facility] CO2 28 21 - 32 mmol/L LAB CHEMISTRY METHOD 01/13/2025 12:12 PM [facility] Anion Gap 16(H) 3 - 11 LAB CHEMISTRY METHOD 01/13/2025 12:12 PM [facility] Glucose 90 70 - 100 mg/dL LAB CHEMISTRY METHOD 01/13/2025 12:12 PM [facility] BUN 77(H) 5 - 25 mg/dL LAB CHEMISTRY METHOD 01/13/2025 12:12 PM [facility] Creatinine 10.50(H) 0.70 - 1.30 mg/dL LAB CHEMISTRY METHOD 01/13/2025 12:12 PM [facility] eGFR 5(L) >=60 mL/min/1 .73m2 LAB CHEMISTRY METHOD 01/13/2025 12:12 PM [facility] Comment:Calculation based on the??Chronic Kidney Disease Epidemiology Collaboration (CKD-EPI) equation refit??without adjustment for race. BUN/Creatinine Ratio 7.3 LAB CHEMISTRY METHOD 01/13/2025 12:12 PM [facility] Calcium 7.2(L) 8.5 - 10.5 mg/dL LAB CHEMISTRY METHOD 01/13/2025 12:12 PM [facility] AST (SGOT) 76(H) 10 - 42 unit/L LAB CHEMISTRY METHOD 01/13/2025 12:12 PM EDT [facility] ALT (SGPT) 36 10 - 60 unit/L LAB CHEMISTRY METHOD 01/13/2025 12:12 PM EDT [facility] Alkaline Phosphatase 65 42 - 121 unit/L LAB CHEMISTRY METHOD 01/13/2025 12:12 PM EDT [facility] Total Protein 5.9(L) 6.0 - 8.0 g/dL LAB CHEMISTRY METHOD 01/13/2025 12:12 PM EDT [facility] Albumin 2.9(L) 3.2 - 5.0 g/dL LAB CHEMISTRY METHOD 01/13/2025 12:12 PM [facility] Total Bilirubin 0.4 0.0 - 1.4 mg/dL LAB CHEMISTRY METHOD 01/13/2025 12:12 PM EDT [facility] Blood Venous blood specimen / Unknown Venipuncture / Unknown 01/13/2025 5:26 AM EDT 01/13/2025 10:00 AM EDT us Yulia Smart MD LAB BLOOD ORDERABLES Final Resu lt [facility] [address] [place] [address], [place] [phone] documented in this encounter Visit Diagnoses Diagnosis Encounter for other general examination documented in this encounter Care Teams Furnace Erector Relationship Specialty Start Date End Date Yulia Smart MD [address] [place] [address] PCP - General Hospitalist Medicine 01/13/25 documented as of this encounter
--- OUTSIDE RECORDS SUMMARY | 2025-02-24 18:23 | XMS_ITS | Clinical Summary ---
Author Organization 299 [facility] Address [address] [place] [address] Phone Care Team Providers Care Slat Basket Top Maker Name Role Phone Yulia Smart MD Primary Care Provider [phone] Encounters Date Type Department Care Team Description 01/18/2025 Lab Requisition [facility] [address] [place] [phone] Yulia Smart MD Encounter for other general examination 01/14/2025 Lab Requisition [facility] [address] [place] [phone] Yulia Smart MD Encounter for other general examination 01/13/2025 Lab Requisition [facility] [address] [place] [phone] Yulia Smart MD Encounter for other general [...] AM EDT [facility] RBC 3.10(L) 4.50 - 5.50 M/mcL LAB HEMETOLOGY METHOD 01/18/2025 7:10 AM EDT [facility] Hemoglobin 9.5(L) 13.5 - 17.5 g/dL LAB HEMETOLOGY METHOD 01/18/2025 7:10 AM EDT [facility] Hematocrit 27.0(L) 42.0 - 54.0 % LAB HEMETOLOGY METHOD 01/18/2025 7:10 AM [facility] MCV 87.1 79.0 - 98.0 FL LAB HEMETOLOGY METHOD 01/18/2025 7:10 AM [facility] MCH 30.6 27.0 - 32.0 pcg LAB HEMETOLOGY METHOD 01/18/2025 7:10 AM [facility] MCHC 35.2 32.0 - 37.0 g/dL LAB HEMETOLOGY METHOD 01/18/2025 7:10 AM [facility] RDW 14.3 11.0 - 15.0 % LAB HEMETOLOGY METHOD 01/18/2025 7:10 AM [facility] Platelets 251 130 - 400 K/mcL LAB HEMETOLOGY METHOD 01/18/2025 7:10 AM [facility] MPV 11.1(H) 7.0 - 11.0 FL LAB HEMETOLOGY METHOD 01/18/2025 7:10 AM [facility] NRBC 0.0 <1.0 % LAB HEMETOLOGY METHOD 01/18/2025 7:10 AM [facility] NRBC Absolute 0.00 <0.10 K/mcL LAB HEMETOLOGY METHOD 01/18/2025 7:10 AM [facility] Neutrophils Relative 77.1 % LAB HEMETOLOGY METHOD 01/18/2025 7:10 AM [facility] Lymphocytes Relative 8.3 % LAB HEMETOLOGY METHOD 01/18/2025 7:10 AM [facility] Monocytes Relative 13.5 % LAB HEMETOLOGY METHOD 01/18/2025 7:10 AM [facility] Eosinophils Relative 0.0 % LAB HEMETOLOGY METHOD 01/18/2025 7:10 AM EDT [facility] Basophils Relative 0.0 % LAB HEMETOLOGY METHOD 01/18/2025 7:10 AM EDT [facility] Immature Granulocytes Relative 1.1 % LAB HEMETOLOGY METHOD 01/18/2025 7:10 AM EDT [facility] Neutrophils Absolute 7.61(H) 1.50 - 7.00 K/mcL LAB HEMETOLOGY METHOD 01/18/2025 7:10 AM EDT [facility] Lymphocytes Absolute 0.82(L) 1.00 - 5.00 K/mcL LAB HEMETOLOGY METHOD 01/18/2025 7:10 AM EDT [facility] Monocytes Absolute 1.33(H) 0.20 - 1.00 K/mcL LAB HEMETOLOGY METHOD 01/18/2025 7:10 AM [facility] Eosinophils Absolute 0.00 0.00 - 0.50 K/mcL LAB HEMETOLOGY METHOD 01/18/2025 7:10 AM [facility] Basophils Absolute 0.00 0.00 - 0.20 K/mcL LAB HEMETOLOGY METHOD 01/18/2025 7:10 AM [facility] Immature Granulocytes Absolute 0.11(H) 0.00 - 0.03 K/mcL LAB HEMETOLOGY METHOD 01/18/2025 7:10 AM [facility] Blood Venous blood specimen / Unknown Venipuncture / Unknown 01/18/2025 5:06 AM EDT 01/18/2025 6:20 AM EDT us Yulia Smart MD LAB BLOOD ORDERABLES Final Resu lt [facility] [address] [place] [address], * Thyroid stimulating hormone (01/18/2025 5:06 AM EDT) TSH 1.94 0.40 - 4.00 mcIU/mL LAB CHEMISTRY METHOD 01/18/2025 9:08 AM EDT [facility] Blood Venous blood specimen / Unknown Venipuncture / Unknown 01/18/2025 5:06 AM EDT 01/18/2025 6:20 AM EDT us Yulia Smart MD LAB BLOOD ORDERABLES Final Resu lt Performing Organization Address [facility] de Phone Number [facility] [address] [place] [address], [place] [phone] * (ABNORMAL) Vitamin B12 (01/18/2025 5:06 AM EDT) [facility] Vitamin B-12 1,241(H) 250 - 900 pcg/mL LAB CHEMISTRY METHOD 01/18/2025 7:36 AM EDT [facility] Blood Venous blood specimen / Unknown Venipuncture / Unknown 01/18/2025 5:06 AM EDT 01/18/2025 6:20 AM EDT us Yulia Smart MD LAB BLOOD ORDERABLES Final Resu lt Performing Organization Address [facility] de Phone Number [facility] [address] [place] [address], [place] [phone] * Ammonia (01/18/2025 5:06 AM EDT) [facility] Ammonia 28 11 - 35 mcmol/L LAB CHEMISTRY METHOD 01/18/2025 6:53 AM EDT [facility] Blood Venous blood specimen / Unknown Venipuncture / Unknown 01/18/2025 5:06 AM EDT 01/18/2025 6:20 AM EDT us Yulia Smart MD LAB BLOOD ORDERABLES Final Resu lt Performing Organization Address City/[facility]/ZIP Co de Phone Number [facility] [address] [place] [address], * (ABNORMAL) Comprehensive metabolic panel (01/18/2025 5:06 AM EDT) Only the most recent of2 resultswithin the time period is included. Sodium 123(L) 133 - 145 mmol/L LAB CHEMISTRY METHOD 01/18/2025 7:56 AM EDT [facility] Potassium 5.2 3.5 - 5.5 mmol/L LAB CHEMISTRY METHOD 01/18[facility]2025 7[facility] Chloride 89(L) 96 - 110 mmol/L LAB CHEMISTRY METHOD 01/18/2025 7:56 AM [facility] CO2 21 21 - 32 mmol/L LAB CHEMISTRY METHOD 01/18/2025 7:56 AM [facility] Anion Gap 13(H) 3 - 11 LAB CHEMISTRY METHOD 01/18/2025 7:56 AM [facility] Glucose 174(H) 70 - 100 mg/dL LAB CHEMISTRY METHOD 01/18/2025 7:56 AM [facility] BUN 96(H) 5 - 25 mg/dL LAB CHEMISTRY METHOD 01/18/2025 7:56 AM [facility] Creatinine 9.44(H) 0.70 - 1.30 mg/dL LAB CHEMISTRY METHOD 01/18/2025 7:56 AM [facility] eGFR 5(L) >=60 mL/min/1. 73m2 LAB CHEMISTRY METHOD 01/18/2025 7:56 AM [facility] Comment:Calculation based on the??Chronic Kidney Disease Epidemiology Collaboration (CKD-EPI) equation refit??without adjustment for race. BUN/Creatinine Ratio 10.2 LAB CHEMISTRY METHOD 01/18/2025 7:56 AM [facility] Calcium 7.8(L) 8.5 - 10.5 mg/dL LAB CHEMISTRY METHOD 01/18/2025 7:56 AM EDT [facility] AST (SGOT) 13 10 - 42 unit/L LAB CHEMISTRY METHOD 01/18/2025 7:56 AM [facility] Comment:Results verified by repeat testing ALT (SGPT) 21 10 - 60 unit/L LAB CHEMISTRY METHOD 01/18/2025 7:56 AM EDT [facility] Alkaline Phosphatase 52 42 - 121 unit/L LAB CHEMISTRY METHOD [facility]/18[facility]2025 7[facility] Total Protein 5.3(L) 6.0 - 8.0 g/dL LAB CHEMISTRY METHOD 01/18/2025 7:56 AM [facility] Albumin 2.6(L) 3.2 - 5.0 g/dL LAB CHEMISTRY METHOD 01/18/2025 7:56 AM [facility] Total Bilirubin 1.0 0.0 - 1.4 mg/dL LAB CHEMISTRY METHOD 01/18/2025 7:56 AM [facility] Comment:Results verified by repeat testing Blood Venous blood specimen / Unknown Venipuncture / Unknown 01/18/2025 5:06 AM EDT 01/18/2025 6:20 AM EDT us Yulia Smart MD LAB BLOOD ORDERABLES Final Resu lt [facility] [address] [place] [address], * (ABNORMAL) Phosphorus (01/14/2025 5:58 AM EDT) Phosphorus 5.6(H) 2.5 - 4.5 mg/dL LAB CHEMISTRY METHOD 01/14/2025 12:17 PM EDT [facility] Blood Venous blood specimen / Unknown Venipuncture / Unknown 01/14/2025 5:58 AM EDT 01/14/2025 9:53 AM EDT us Yulia Smart MD LAB BLOOD ORDERABLES Final Resu lt Performing Organization Address City/[facility]/ZIP Co de Phone Number [facility] [address] [place] [address], [place] [phone] * (ABNORMAL) Magnesium (01/13/2025 5:26 AM EDT) [facility] Magnesium 1.8(L) 1.9 - 2.6 mg/dL LAB CHEMISTRY METHOD 01/13/2025 12:11 PM EDT [facility] Blood Venous blood specimen / Unknown Venipuncture / Unknown 01/13/2025 5:26 AM EDT 01/13/2025 10:00 AM EDT us Yulia Smart MD LAB BLOOD ORDERABLES Final Resu lt Performing Organization Address [facility] Co de Phone Number [facility] [address] [place] [address], [place] [phone] * Hemoglobin A1c (01/13/2025 5:26 AM EDT) [facility] Hemoglobin A1C 5.6 <6.5 % LAB CHEMISTRY [...] ORDERABLES Final Resu lt Performing Organization Address City/[facility]/ZIP Co de Phone Number [facility] [address] [place] [address], [place] [phone] from Last 3 Months Insurance [facility] [address] MEDICARE Care Teams Slat Basket Top Maker Relationship Specialty Start Date End Date Yulia Smart MD [address] [place] [phone] PCP - General Hospitalist Medicine 01/13/25
--- OUTSIDE RECORDS SUMMARY | 2025-02-24 18:23 | XMS_ITS | Encounter Summary ---
Author Organization [facility], Address [address] [place] [address] Phone Care Team Providers Care Medical Records Tech Name Role Phone Matias Tan MD Primary Care Provider [phone]- [phone] Reason for Visit * Reason Onset Date Comments Med Refill 07/01/2024 Encounter Details Date Type Department Care Team (Late Contact Info) Description 07/01/2024 Refill [facility], - Vascular Access Center [address] [place] [id number] Dale Lema MD [address] [place] [phone] Social History Tobacco Use Types Packs/Day Years [...] visit [facility] - [facility] [address] [place] [phone] documented as of this encounter Visit Diagnoses Not on filedocumented in this encounter Care Teams Medical Records Tech Relationship Specialty Start Date End Date Matias Tan MD [address] [facility] [place] [phone] PCP - General Family Medicine 10/24/19 documented as of this encounter
--- OUTSIDE RECORDS SUMMARY | 2025-02-24 18:23 | XMS_ITS | Encounter Summary ---
Author Organization [facility], Address [address] [place] [address] Phone Care Team Providers Care Typist Name Role Phone Matias Tan MD Primary Care Provider [phone]- [phone] Reason for Visit * Reason Onset Date Comments Med Refill 09/24/2022 Encounter Details Date Type Department Care Team (Late st Contact Info) Description 09/24/2022 Refill [facility] - Vascular Access Center [address] [place] [phone] Ferdinand Monroe MD [address] [phone] Social History Tobacco Use Types Packs/Day Years [...] visit [facility] - [facility] Center [address] [place] [address] [place] [phone] documented as of this encounter Visit Diagnoses Not on filedocumented in this encounter Care Teams Typist Relationship Specialty Start Date End Date Matias Tan MD [address] [facility] [place] [address] PCP - General Family Medicine 10/24/19 documented as of this encounter
[2025-02-24] MEDS: Albuterol Sulfate 5 MG, Albuterol/Iprat 2.5/0.5MG 3 ML 3 ML INHALE (18:28)
--- NOTE | 2025-02-24 18:28 | PC.NURSE ---
pt trailed onto nasal cannula O2 on arrival - sats were in the mid 80s, placed on our BiPAP by RT. see RT charting for settings. difficult stick - multiple nurses tried multiple times, only right sided access due to AVF on left side. US guided line in progress by ABA Collins
[2025-02-24] MEDS: methylPREDNISolone Sod Succ 125 MG/2 ML VIAL 60 MG IVPUSH (18:35)
[2025-02-24 18:44] LABS: MANUAL DIFF FLAG NO
[2025-02-24] MEDS: cefEPime HCl/D5W 2 GM/50 ML PIGGYBACK IV (18:58)
[2025-02-24 18:59] LABS: VBG Base Excess 1.9 mmol/L; VBG HCO3 26 mmol/L (22-26); VBG pCO2 42 mmHg; VBG pO2 45 mmHg
[2025-02-24 19:01] LABS: Lactic Acid 1.3 mmol/L (0.5-2.0)
[2025-02-24 19:05] LABS: Venous Blood Gas Refer to POC result
[2025-02-24 19:05] LABS: Basophils Absolute Auto 0.1 X10*3/uL (0.0-0.2); Basophils Percent Auto 0.6 % (0-2); Eosinophils Absolute Auto 0.2 X10*3/uL (0.0-0.4); Hematocrit 23.8 % (42.0-52.0); Hemoglobin 8.1 g/dl (14.0-18.0); Imm Gran Abs Auto 0.12 X10*3/uL (0.00-0.03); Imm Gran Pct Auto 0.6 % (0.0-0.4); Lymphocytes Absolute Auto 0.7 X10*3/uL (1.2-4.9); Lymphocytes Percent Auto 3.5 % (20-40); Mean Corpuscular Hemoglobin 31.9 pg (27.0-33.0); Mean Corpuscular Volume 93.7 fL (80.0-98.0); Mean Platelet Volume 9.7 fL (9.4-12.4); Monocytes Absolute Auto 1.1 X10*3/uL (0.1-1.2); Monocytes Percent Auto 5.7 % (2-11); Neutrophils Absolute Auto 16.7 x10*3/uL (2.0-8.3); Neutrophils Percent Auto 88.6 % (45-73); Platelet Count 304 X10*3/uL (160-400); Red Blood Count 2.54 X10*6/uL (4.60-5.80); Red Cell Distribution Width 15.9 % (11.0-16.0); White Blood Count 18.8 X10*3/uL (4.8-10.8)
[2025-02-24 19:08] LABS: B Type Natriuretic Peptide 3021 pg/mL (<100)
[2025-02-24 19:09] LABS: Troponin-I High Sensitivity 39.5 ng/L (<3.5-35.0)
[2025-02-24] MEDS: Acetaminophen 1,000 MG/100 ML PIGGYBACK 400 MG IV (19:14)
[2025-02-24 19:20] LABS: Alanine Aminotransferase 8 U/L (0-40); Albumin Level 3.7 g/dL (3.5-5.0); Alkaline Phosphatase 80 U/L (39-117); Anion Gap 24 (12-20); Aspartate Amino Transferase 23 U/L (5-37); Bilirubin Direct 0.3 mg/dL (0.0-0.5); Bilirubin Total 0.9 mg/dL (0.0-1.0); Blood Urea Nitrogen 50 mg/dL (9-16); C Reactive Protein 3.69 mg/dL (< or = 0.50); Calcium 8.7 mg/dL (8.4-10.2); Carbon Dioxide 22 mmol/L (22-29); Chloride 93 mmol/L (96-108); Creatinine Clr Calc Pharmacy 5.8; Estimated Glomerular Filt Rate 5; Glucose Random 101 mg/dL (60-115); Magnesium 2.2 mg/dL (1.6-2.6); Potassium 5.8 mmol/L (3.3-5.1); Sodium 133 mmol/L (135-145); Total Protein 6.7 g/dL (6.5-8.0)
[2025-02-24 19:24] LABS: Procalcitonin 0.32 ng/mL
[2025-02-24] MEDS: Calcium Gluconate/NaCl,Iso-Osm 2 GM/100 ML PLAST..BAG IV (19:31)
[2025-02-24] MEDS: Sodium Zirconium Cyclosilicate 5 GM POWD.PACK PO (19:31)
[2025-02-24] MEDS: Sodium Bicarbonate 8.4% 50 MEQ/50 ML SYRINGE IVPUSH (19:31)
[2025-02-24 19:41] LABS: Influenza A PCR NEGATIVE (Negative); Influenza B PCR NEGATIVE (Negative); Resp Syncy Virus RNA Qual PCR NEGATIVE (Negative); SARS COV2 PCR INHOUSE NEGATIVE (Negative)
--- NOTE | 2025-02-24 20:30 | PC.NURSE ---
Pt resting in bed with call latham in reach, medications administered per DEC. Respiratory therapist transitioned pt to high flow at 35% 45L and O2 sat in the upper 90s.
--- NOTE | 2025-02-24 20:39 | PC.NURSE ---
Patient's spouse Kyara updated on patient's status.
[2025-02-24 21:20] LABS: Glucose, Whole Blood 114 mg/dL (60-115)
[2025-02-24] MEDS: vancomycin HCL 1,500 MG in 0.9 % Sodium Chloride 500 ML 333.33 MG IV (21:36)
[2025-02-24] MEDS: HYDROmorphone HCl 2 MG TABLET PO (21:39)
[2025-02-24] MEDS: Heparin Sodium,Porcine 5,000 UNIT/ML VIAL 5000 UNIT SUBCUT (21:40)
--- NOTE | 2025-02-24 21:42 | P.HPHOSP_ITS ---
History of Present Illness Date of Service: 02/24/25 Attending physician on admission: Dagoberto Tejada Chief Complaint: unresponsive Patient is a 70-year-old male with a past medical history significant for ESRD on HD with frequent admissions due to noncompliance with dialysis, mood disorder, stage I COPD, insulin-dependent diabetes, hypothyroid, HLD, chronic anemia, GERD and HTN, who presented to the ED found unresponsive by family member. EMS was called and he was found to be 70% on room air, but on 15 L O2 with improvement 80%, ultimately placed on CPAP. The patient reports shortness of breath and fever. He was recently discharged from here on 02/15 for noncompliance with dialysis and electrolyte abnormalities, discharged to [facility] and left AMA yesterday. The patient does not wish to talk, therefore minimal history was given. He reports that he has skipped his last few sessions of dialysis as he wanted a break. He is complaining of his chronic pain and requesting his pain medications, Dilaudid 4 mg every 8 hours as well as his anxiety medication, Xanax 2 mg b.i.d. and 0.5 mg p.r.n.. Review of Systems 2 Constitutional: Constitutional: Denies body ache(s), Denies fatigue, Reports fever(s) and Denies headache(s) Eyes: Eyes: Denies change in vision and Denies photophobia ENT: Denies headache(s), Denies nasal congestion, Denies nasal discharge and Denies sore throat Cardiovascular: Cardiovascular: Denies chest pain, Denies rapid heart rate, Denies leg edema, Denies lightheadedness and Reports dyspnea Respiratory: Respiratory: Reports cough, Reports dyspnea and Denies wheezing Gastrointestinal: Gastrointestinal: Denies diarrhea, Denies nausea and Denies vomiting Genitourinary: Genitourinary: Denies dysuria Musculoskeletal: Comments: coccygeal pain due to chronic wound Integumentary/Breasts: Skin/Breast: Reports as per HPI Neurologic: Denies confusion and Denies headache(s) Psychiatric: Psychiatric: Denies confusion Endocrine: Endocrine: Denies fatigue Hematologic/Lymphatic: Hematologic/Lymphatic: Denies easy bleeding and Denies easy bruising Allergic/Immunologic: Allergic/Immunologic: Denies wheezing [facility] Medical History Hypothyroidism Influenza A CHF (congestive heart failure) Acute anemia Multifactorial gait disorder Pneumonia End stage renal disease on dialysis Occult blood positive stool Anemia Internal jugular vein thrombosis Abnormality of gait ESRD needing dialysis Secondary hyperparathyroidism (of renal origin) Anemia in chronic kidney disease DONIS (acute kidney injury) Diabetes Kidney failure HTN (hypertension) Social History Household Members: Spouse Housing: House Are you a primary respiratory care instructor to a significant other at home: No Do you presently have visiting nurse or other home services: No Alcohol intake: former Comment: sitter in place Patient Tobacco Use Status: Never used Tobacco Cigarette Packs Per Day: 0 Cigarettes Per Day: 0.0 Years Smoked: NA Smoked in Last 30 Days: No e-Cigarette/Vaping Use: Never Used Second Hand Smoke Exposure: No Use of substances other than those prescribed or required for medical reasons: No Advance Directives: Yes Advance Directives on File: Yes Advance Directives Date on File: 09/07/23 service: No Meds Allergies Allergy/AdvReac Type Severity Reaction Status Date / Time Penicillins [PENICILLINS] Allergy Unknown RASH Verified 02/24/25 18:10 tramadol [From ULTRAM] Allergy Unknown RASH Verified 02/13/25 14:58 trazodone [TRAZODONE] Allergy Unknown PRIAPISM Verified 02/13/25 14:58 risperidone [RISPERIDONE] AdvReac Severe dizzy, EPS Verified 02/13/25 14:58 Active Medications: Current Medications Acetaminophen (Acetaminophen 325 Mg Tablet) 975 mg PO Q6H PRN PRN Reason: Pain, Mild 1-3,fever,headache Alprazolam (Alprazolam 0.5 Mg Tablet) 0.5 mg PO DAILY PRN PRN Reason: Anxiety Alprazolam (Alprazolam 0.5 Mg Tablet) 1 mg PO BID FRANCINE Calcium Carbonate (Calcium Carbonate 750 Mg Tab.Chew) 750 mg PO Q4H PRN PRN Reason: Heartburn Dextrose (Dextrose 50 % 25 Gm/50 Ml Syringe) 25 gm IVPUSH Q15M PRN; Protocol PRN Reason: per Hypoglycemia Standing Ord. Glucose (Glucose Gel 15 Gm Gel..Gram.) 15 gm PO Q15M PRN; Protocol PRN Reason: per Hypoglycemia Standing Ord. Heparin Sodium (Porcine) (Heparin Sodium,Porcine 5,000 Unit/Ml Vial) 5,000 unit SUBCUT Q12H FRANCINE Hydromorphone HCl (Hydromorphone Hcl 2 Mg Tablet) 2 mg PO Q8H FRANCINE Hydromorphone HCl (Hydromorphone Hcl 0.5 Mg/0.5 Ml Syringe) 0.25 mg IVPUSH Q4H PRN; Protocol PRN Reason: Pain, Severe (Pain Scale 7-10) Vancomycin HCl 1,500 mg/ (Sodium Chloride) 500 mls @ 333.333 mls/hr IV ONCE ONE Stop: 02/24/25 22:29 Last Admin: 02/24/25 21:36 Dose: 333.33 mls/hr Cefepime HCl 1 gm/ Sodium (Chloride) 50 mls @ 100 mls/hr IV Q24H [facility] Insulin Glargine (Insulin Glargine,Hum.Rec.Anlog 100 Unit/Ml 10 Ml Vial) 5 unit SUBCUT BEDTIME [facility] Insulin Human Lispro (Insulin Lispro 100 Unit/Ml 3 Ml Vial) 0 unit SUBCUT QIDACHS [facility]; Protocol Magnesium Hydroxide (Milk Of Magnesia 30 Ml Oral.Susp) 30 ml PO DAILY PRN PRN Reason: Constipation Melatonin (Melatonin 3 Mg Tablet) 6 mg PO BEDTIME PRN PRN Reason: Insomnia Ondansetron HCl (Ondansetron Hcl 4 Mg/2 Ml Vial) 4 mg IVPUSH Q8H PRN PRN Reason: Nausea and Vomiting Sodium Chloride (0.9 % Sodium Chloride Flush 3 Ml Syringe) 3 [facility] Medications ?Medication ?Instructions ?Recorded ?Confirmed ?Last Taken ?Type atenolol 100 mg tablet 1 tab PO DAILY 07/11/21 02/13/25 02/02/25 History blood sugar diagnostic (FreeStyle 07/11/21 10/30/24 10/30/24 09:00 History Lite Strips) levothyroxine 137 mcg tablet 1 tab PO DAILY@0600 07/11/21 02/13/25 02/02/25 History pen needle, diabetic 31 gauge x 07/11/21 10/30/24 10/30/24 09:00 History 03/03 (BD Ultra-Fine Short Pen Needle) amlodipine 5 mg tablet 5 mg PO BID 09/03/23 02/13/25 02/02/25 History atorvastatin 40 mg tablet 40 mg PO BEDTIME 02/22/24 02/13/25 02/02/25 History sodium zirconium cyclosilicate 10 10 g PO SUTUTHSA@0900 06/19/24 02/13/25 02/02/25 History gram oral powder packet (Lokelma) alprazolam 0.5 mg tablet 0.5 mg PO DAILY PRN anxiety attack 10/30/24 02/13/25 02/02/25 History alprazolam 2 mg tablet 2 mg PO BID 10/30/24 02/13/25 02/02/25 History insulin lispro 100 unit/mL See Protocol subcut TIDAC PRN 10/30/24 02/13/25 10/30/24 09:00 History subcutaneous pen (Humalog KwikPen Blood Glucose (U-100) Insulin) losartan 100 mg tablet 100 mg PO DAILY 01/09/25 02/13/25 02/02/25 History sevelamer carbonate 800 mg tablet 1,600 mg PO TIDWM 01/09/25 02/13/25 02/02/25 History albuterol sulfate 2.5 mg/3 mL 2.5 mg inhalation Q6H PRN Wheezing 01/18/25 02/13/25 Unknown History (0.083 %) solution for nebulization albuterol sulfate 90 mcg/actuation 2 puff inhalation Q6H PRN 01/18/25 02/13/25 Unknown History aerosol inhaler (Ventolin HFA) Shortness Of Breath Or Wheezing calcium carbonate (Tums) 200 mg PO Q8H PRN UPSET STOMACH 01/18/25 02/13/25 Unknown History cholecalciferol (vitamin D3) 125 125 mcg PO SUTUTHSA@0900 01/18/25 02/13/25 02/02/25 History mcg (5,000 unit) tablet (Vitamin D3) melatonin 5 mg tablet 5 mg PO BEDTIME PRN Insomnia 01/18/25 02/13/25 Unknown History quetiapine 25 mg tablet (Seroquel) 25 mg PO Q12H PRN Agitation 01/18/25 02/13/25 Unknown History vitamin B complex and vitamin C 1 cap PO DAILY 01/18/25 02/13/25 Unknown History no.20-folic acid 1 mg capsule acetaminophen 325 mg tablet 650 mg PO Q6H PRN Fever Or Pain 02/13/25 02/13/25 Unknown History bisacodyl 10 mg rectal suppository 10 mg MI DAILY PRN constipation, 02/13/25 02/13/25 Unknown History MOM not effective after 24 hrs cefuroxime axetil 250 mg tablet 250 mg PO DAILY 02/13/25 02/13/25 Unknown History esomeprazole magnesium 40 mg 40 mg PO BID@0630,1630 02/13/25 02/13/25 Unknown History capsule,delayed release folic acid 1 mg tablet 1 mg PO DAILY 02/13/25 02/13/25 Unknown History Physical Exam 2 Vital Signs and Narrative: Vital Signs: Last Vital Signs Temp 99.8 F 02/24/25 20:27 Pulse 84 02/24/25 20:26 Resp 14 02/24/25 20:26 BP 137/67 02/24/25 20:26 Pulse Ox 94 02/24/25 20:26 O2 Del Method High Flow Nasal C annula 02/24/25 20:26 O2 Flow Rate 45 02/24/25 20:26 Oxygen Flow Rate 7 02/24/25 18:05 BMI result Body Mass Index 24.2 General: AOx3, no acute distress, on high flow O2 Resp: diminished throughout, no wheezing, no crackles, limited exam CVS: S1, S2, RRR GI: +BS, NT, no distention Skin: Warm, dry Neuro: Cranial nerves II-XII grossly intact bilaterally. Motor grossly intact bilaterally Extremities: No LE edema Psych: Appropriate affect Const: General: No confusion Orientation/consciousness: No confusion Eyes: Direct Ophthalmoscopy: No photophobia Neuro: General: No confusion Results Labs 02/24/25 18:30 02/24/25 18:31 Labs: Laboratory Results - last 24 hr 02/24/25 02/24/25 02/24/25 18:13 18:30 18:31 MCV 93.7 MCH 31.9 MCHC 34.0 RDW 15.9 Plt Count 304 MPV 9.7 Immature Gran % (Auto) 0.6 H Neut % (Auto) 88.6 H Lymph % (Auto) 3.5 L Maury % (Auto) 5.7 Eos % (Auto) 1.0 Baso % (Auto) 0.6 Lymph # (Auto) 0.7 L Maury # (Auto) 1.1 Eos # (Auto) 0.2 Baso # (Auto) 0.1 Abs Immat Gran (auto) 0.12 H Absolute Neuts (auto) 16.7 H Absolute Nucleated RBC 0.000 Nucleated RBC % (auto) 0.0 VBG pH VBG pCO2 VBG pO2 VBG HCO3 VBG O2 Saturation VBG Base Excess Anion Gap 24 H Estim Creat Clear Calc 5.8 Estimated GFR 5 POC Glucose 81 Random Glucose 101 Lactic Acid 1.3 Calcium 8.7 Magnesium 2.2 Total Bilirubin 0.9 Direct Bilirubin 0.3 AST 23 ALT 8 Alkaline Phosphatase 80 C-Reactive Protein 3.69 H B-Natriuretic Peptide 3021 H Total Protein 6.7 Albumin 3.7 Procalcitonin 0.32 Influenza Type A (PCR) Influenza Type B (PCR) RSV RNA Qual (PCR) SARS-CoV-2 RNA (RT-PCR) 02/24/25 02/24/25 02/24/25 18:37 18:43 21:15 MCV MCH MCHC RDW Plt Count MPV Immature Gran % (Auto) Neut % (Auto) Lymph % (Auto) Maury % (Auto) Eos % (Auto) Baso % (Auto) Lymph # (Auto) Maury # (Auto) Eos # (Auto) Baso # (Auto) Abs Immat Gran (auto) Absolute Neuts (auto) Absolute Nucleated RBC Nucleated RBC % (auto) VBG pH 7.40 VBG pCO2 42 VBG pO2 45 VBG HCO3 26 VBG O2 Saturation TNP VBG Base Excess 1.9 Anion Gap Estim Creat Clear Calc Estimated GFR POC Glucose 114 Random Glucose Lactic Acid Calcium Magnesium Total Bilirubin Direct Bilirubin AST ALT Alkaline Phosphatase C-Reactive Protein B-Natriuretic Peptide Total Protein Albumin Procalcitonin Influenza Type A (PCR) NEGATIVE Influenza Type B (PCR) NEGATIVE RSV RNA Qual (PCR) NEGATIVE SARS-CoV-2 RNA (RT-PCR) NEGATIVE Assessment and Plan (1) Sepsis: Status: Acute (2) Acute hypoxic respiratory failure: Status: Acute (3) Pneumonia: Qualifiers: Laterality: bilateral Lung location: unspecified part of lung P neumonia type: due to unspecified organism Qualified Code(s): J18.9 - Pneumonia, unspecified organism Status: Acute (4) ESRD needing dialysis: Status: Acute (5) Acute hyperkalemia: Status: Acute Plan Patient is a 70-year-old male with a past medical history significant for ESRD on HD with frequent admissions due to noncompliance with dialysis, mood disorder, stage I COPD, insulin-dependent diabetes, hypothyroid, HLD, chronic anemia, GERD and HTN, who presented to the ED found unresponsive by family member. patient was found to be hypoxic with pneumonia and has skipped dialysis the past few sessions. He was initially placed on BiPAP in the ED but has been able to transitioned to high-flow oxygen. The case was discussed with ICU who did not feel that the patient needed an ICU admission. The case was also discussed with Nephrology who we will arrange dialysis tomorrow. Acute hypoxic respiratory failure and sepsis secondary to pneumonia - WBC 18.8, febrile and tachypneic, lactic acid normal, blood cultures x2 pending, not severe sepsis - chest x-ray with bilateral multifocal pneumonia versus edema. given fever and white count, likely infectious - COVID/flu/ RSV negative - maintaining oxygen saturations on high-flow, titrate as needed - started on cefepime and vancomycin in ED, continue - given DuoNeb and methylprednisone in ED, patient does not report wheezing and lung sounds clear - monitor CBC and BMP ESRD needing dialysis/ hyperkalemia - patient has skipped last few dialysis sessions - electrolyte imbalances secondary to skipped dialysis - given Lokelma, calcium and bicarb - recheck BMP at midnight - follow BMP - monitor on tele - nephrology consult, plan for dialysis tomorrow chronic anemia - hemoglobin 8.1, stable - no need for blood transfusion at this time - monitor CBC insulin-dependent diabetes - sliding scale insulin - diabetic diet - Lantus 5 units q.h.s stage I COPD, no acute exacerbation - patient given DuoNeb and Solu-Medrol in ED - no active wheezing, no acute exacerbation at this time coccygeal wound - follow previous wound care recommendations at this time: Coccyx - Off Load Pressure with Q2 hr turns and use of pillows - Cleanse with PH balance spray or wipes, pat dry. ?Apply foam dressing to aid in off loading and protection from friction. Change every 3 days and PRN.? - wound care consult mood disorder - continue home meds chronic pain - continue home meds HTN - continue home meds full code, discussed with patient VTE prophylaxis: heparin patient with acute hypoxic respiratory failure and sepsis secondary to multifocal pneumonia complicated by ESRD needing dialysis and hyperkalemia, requiring admission for at least 2 midnights stay for IV antibiotics, oxygen supplementation, dialysis and monitoring. Quality Stroke Does the patient have a stroke diagnosis?: No VTE Prior VTE?: No VTE Risk Level:: Medical - moderate - high VTE Device Contraindication: Treatment Not Indicated VTE Drug Contraindication: N/A - Med Ordered
--- NOTE | 2025-02-24 21:53 | PC.NURSE ---
Patient medicated per MAR.
--- NOTE | 2025-02-24 22:27 | PHA.MEDREC ---
Addendum entered by Efren Velazquez 02/24/25 22:41: reviewed Original Note: Pharmacy Consult ? Medication Reconciliation Pharmacy has completed the medication reconciliation. Spoke with patients over the phone, who was able to confirm what the patient takes for medications at home; patient also just recently admitted at our facility 02/13-02/15 and DC'd to [facility] but discharged from their facility yesterday 02/23 per the spouse and wasn't home 24 hours before coming back to our facility. Pt spouse confirmed he is not compliant with taking his Lantus or Humalog Insulin and only takes it when he his sugars are high but has been saying 'their ok' whenever I ask and hasn't been using it . I spoke with the patient and he was loopy but able to answer that he is taking the Lantus at bedtime but did not remember the units he injects and confirmed he uses the Humalog three times a day with meals. Pts spouse nor pt were able to confirm the last time the pt took his medications at home.
[2025-02-25 00:13] VITALS: BMI 27.8
[2025-02-25] MEDS: ALPRAZolam 0.5 MG TABLET PO (01:01)
[2025-02-25 01:02] LABS: Anion Gap 24 (12-20); Blood Urea Nitrogen 56 mg/dL (9-16); Calcium 8.7 mg/dL (8.4-10.2); Carbon Dioxide 21 mmol/L (22-29); Chloride 94 mmol/L (96-108); Creatinine Clr Calc Pharmacy 6.3; Estimated Glomerular Filt Rate 5; Glucose Random 134 mg/dL (60-115); Potassium 6.1 mmol/L (3.3-5.1); Sodium 133 mmol/L (135-145)
[2025-02-25] MEDS: 0.9 % Sodium Chloride Flush 3 ML SYRINGE IVFLUSH ×4 (01:02→20:11)
--- NOTE | 2025-02-25 01:14 | PM.EVENT ---
Event Note Date of Service: 02/25/25 Event Note: repeat K 6.1 from 5.8. pt recieved lokelma 5mg and 2g calcium gluconate in ED ordered another dose of lokelma 5mg, insulin 10U and dextrose 25gm nurse notified BMP to be checked again with morning labs in 4 hours discussed case with Dr Tejada who collaborates with plan Time Spent With Patient Time: Total time managing care of this patient today ____ minutes.
[2025-02-25] MEDS: Sodium Zirconium Cyclosilicate 5 GM POWD.PACK PO (01:28)
[2025-02-25] MEDS: Dextrose 50 % 25 GM/50 ML SYRINGE IVPUSH (01:28)
[2025-02-25] MEDS: Insulin Regular, Human 100 UNIT/ML 10 ML VIAL 10 UNIT IVPUSH (01:28)
[2025-02-25 01:38] VITALS: BP 145/67; PULSE 80; RESP 18; TEMP 36.2; O2SAT 99
[2025-02-25 02:41] LABS: Glucose, Whole Blood 185 mg/dL (60-115)
[2025-02-25 03:09] VITALS: PULSE 77; RESP 18; O2SAT 97
[2025-02-25 03:38] VITALS: BP 134/68; PULSE 76; RESP 18; TEMP 36.1; O2SAT 95
[2025-02-25 06:54] LABS: Basophils Percent Auto 0.2 % (0-2); Hematocrit 21.6 % (42.0-52.0); Hemoglobin 7.3 g/dl (14.0-18.0); Imm Gran Abs Auto 0.03 X10*3/uL (0.00-0.03); Imm Gran Pct Auto 0.4 % (0.0-0.4); Lymphocytes Absolute Auto 0.6 X10*3/uL (1.2-4.9); Lymphocytes Percent Auto 7.1 % (20-40); MANUAL DIFF FLAG SCAN; Mean Corpuscular HGB Conc 33.8 g/dl (31.0-36.0); Mean Corpuscular Hemoglobin 31.5 pg (27.0-33.0); Mean Corpuscular Volume 93.1 fL (80.0-98.0); Mean Platelet Volume 9.9 fL (9.4-12.4); Monocytes Absolute Auto 0.1 X10*3/uL (0.1-1.2); Monocytes Percent Auto 1.3 % (2-11); Neutrophils Absolute Auto 7.7 x10*3/uL (2.0-8.3); Platelet Count 216 X10*3/uL (160-400); Red Blood Count 2.32 X10*6/uL (4.60-5.80); Red Cell Distribution Width 15.5 % (11.0-16.0); SCAN SMEAR FLAG 1; White Blood Count 8.5 X10*3/uL (4.8-10.8)
[2025-02-25 06:57] LABS: Anion Gap 25 (12-20); Blood Urea Nitrogen 61 mg/dL (9-16); Calcium 8.5 mg/dL (8.4-10.2); Carbon Dioxide 20 mmol/L (22-29); Chloride 94 mmol/L (96-108); Creatinine Clr Calc Pharmacy 6.1; Estimated Glomerular Filt Rate 5; Glucose Random 169 mg/dL (60-115); Magnesium 2.3 mg/dL (1.6-2.6); Potassium 5.5 mmol/L (3.3-5.1); Sodium 133 mmol/L (135-145)
[2025-02-25 07:56] LABS: SLIDE REVIEW VERIFIED
[2025-02-25] MEDS: HYDROmorphone HCl 0.5 MG/0.5 ML SYRINGE 0.25 MG IVPUSH ×2 (09:19→16:07)
--- NOTE | 2025-02-25 10:15 | HO.PM.IMPN ---
Subjective Subjective Date of Service: 02/25/25 Interval History: sob Physical Exam Vital Signs: Vital Signs: Last Vital Signs Temp 97.0 F 02/25/25 03:38 Pulse 76 02/25/25 03:38 Resp 18 02/25/25 03:38 BP 134/68 02/25/25 03:38 Pulse Ox 95 02/25/25 03:38 O2 Del Method High Flow Nasal C annula 02/25/25 03:38 O2 Flow Rate 35 02/25/25 03:38 FiO2 45 02/25/25 03:38 Oxygen Flow Rate 7 02/24/25 18:05 BMI result Body Mass Index 27.8 Lethargic, no acute distress Crackles bilateral Abdomen soft nontender Objective Data Active Medications Acetaminophen (Acetaminophen 325 Mg Tablet) 975 mg PO Q6H PRN PRN Reason: Pain, Mild 1-3,fever,headache Alprazolam (Alprazolam 0.5 Mg Tablet) 0.5 mg PO DAILY PRN PRN Reason: Anxiety Last Admin: 02/25/25 01:01 Dose: 0.5 mg Documented By: AJIT Alprazolam (Alprazolam 0.5 Mg Tablet) 1 mg PO BID [facility] Calcium Carbonate (Calcium Carbonate 750 Mg Tab.Chew) 750 mg PO Q4H PRN PRN Reason: Heartburn Dextrose (Dextrose 50 % 25 Gm/50 Ml Syringe) 25 gm IVPUSH Q15M PRN; Protocol PRN Reason: per Hypoglycemia Standing Ord. Glucose (Glucose Gel 15 Gm Gel..Gram.) 15 gm PO Q15M PRN; Protocol PRN Reason: per Hypoglycemia Standing Ord. Heparin Sodium (Porcine) (Heparin Sodium,Porcine 5,000 Unit/Ml Vial) 5,000 unit SUBCUT Q12H [facility] Last Admin: 02/25/25 09:21 Dose: Not Given Documented By: LULU Non-Admin Reason: Off unit: Dialysis Hydromorphone HCl (Hydromorphone Hcl 2 Mg Tablet) 2 mg PO Q8H [facility] Last Admin: 02/25/25 06:22 Dose: Not Given Documented By: AJIT Non-Admin Reason: drowsy Hydromorphone HCl (Hydromorphone Hcl 0.5 Mg/0.5 Ml Syringe) 0.25 mg IVPUSH Q4H PRN; Protocol PRN Reason: Pain, Severe (Pain Scale 7-10) Last Admin: 02/25/25 09:19 Dose: 0.25 mg Documented By: LULU Cefepime HCl 1 gm/ Sodium (Chloride) 50 mls @ 100 mls/hr IV Q24H [facility] Insulin Glargine (Insulin Glargine,Hum.Rec.Anlog 100 Unit/Ml 10 Ml Vial) 5 unit SUBCUT BEDTIME [facility] Insulin Human Lispro (Insulin Lispro 100 Unit/Ml 3 Ml Vial) 0 unit SUBCUT QIDACHS [facility]; Protocol Last Admin: 02/25/25 07:39 Dose: Not Given Documented By: JESÚS Non-Admin Reason: Off unit: Dialysis Magnesium Hydroxide (Milk Of Magnesia 30 Ml Oral.Susp) 30 ml PO DAILY PRN PRN Reason: Constipation Melatonin (Melatonin 3 Mg Tablet) 6 mg PO BEDTIME PRN PRN Reason: Insomnia Ondansetron HCl (Ondansetron Hcl 4 Mg/2 Ml Vial) 4 mg IVPUSH Q8H PRN PRN Reason: Nausea and Vomiting Sodium Chloride (0.9 % Sodium Chloride Flush 3 Ml Syringe) 3 ml IVFLUSH [facility] Last Admin: 02/25/25 09:21 Dose: 3 ml Documented By: LULU Labs 02/25/25 06:12 02/25/25 06:12 Labs: Laboratory Results - last 24 hr 02/24/25 02/24/25 02/24/25 18:13 18:30 18:31 MCV 93.7 MCH 31.9 MCHC 34.0 RDW 15.9 Plt Count 304 MPV 9.7 Immature Gran % (Auto) 0.6 H Neut % (Auto) 88.6 H Lymph % (Auto) 3.5 L [place] % (Auto) 5.7 Eos % (Auto) 1.0 Baso % (Auto) 0.6 Lymph # (Auto) 0.7 L [place] # (Auto) 1.1 Eos # (Auto) 0.2 Baso # (Auto) 0.1 Abs Immat Gran (auto) 0.12 H Absolute Neuts (auto) 16.7 H Absolute Nucleated RBC 0.000 Nucleated RBC % (auto) 0.0 Smear Tech's Comments VBG pH VBG pCO2 VBG pO2 VBG HCO3 VBG O2 Saturation VBG Base Excess Anion Gap 24 H Estim Creat Clear Calc 5.8 Estimated GFR 5 POC Glucose 81 Random Glucose 101 Lactic Acid 1.3 Calcium 8.7 Magnesium 2.2 Total Bilirubin 0.9 Direct Bilirubin 0.3 AST 23 ALT 8 Alkaline Phosphatase 80 C-Reactive Protein 3.69 H B-Natriuretic Peptide 3021 H Total Protein 6.7 Albumin 3.7 Procalcitonin 0.32 Influenza Type A (PCR) Influenza Type B (PCR) RSV RNA Qual (PCR) SARS-CoV-2 RNA (RT-PCR) 02/24/25 02/24/25 02/24/25 18:37 18:43 21:15 MCV MCH MCHC RDW Plt Count MPV Immature Gran % (Auto) Neut % (Auto) Lymph % (Auto) [place] % (Auto) Eos % (Auto) Baso % (Auto) Lymph # (Auto) [place] # (Auto) Eos # (Auto) Baso # (Auto) Abs Immat Gran (auto) Absolute Neuts (auto) Absolute Nucleated RBC Nucleated RBC % (auto) Smear Tech's Comments VBG pH 7.40 VBG pCO2 42 VBG pO2 45 VBG HCO3 26 VBG O2 Saturation TNP VBG Base Excess 1.9 Anion Gap Estim Creat Clear Calc Estimated GFR POC Glucose 114 Random Glucose Lactic Acid Calcium Magnesium Total Bilirubin Direct Bilirubin AST ALT Alkaline Phosphatase C-Reactive Protein B-Natriuretic Peptide Total Protein Albumin Procalcitonin Influenza Type A (PCR) NEGATIVE Influenza Type B (PCR) NEGATIVE RSV RNA Qual (PCR) NEGATIVE SARS-CoV-2 RNA (RT-PCR) NEGATIVE 02/25/25 02/25/25 02/25/25 00:26 02:35 06:12 MCV 93.1 MCH 31.5 MCHC 33.8 RDW 15.5 Plt Count 216 D MPV 9.9 Immature Gran % (Auto) 0.4 Neut % (Auto) 91.0 H Lymph % (Auto) 7.1 L [place] % (Auto) 1.3 L Eos % (Auto) 0.0 Baso % (Auto) 0.2 Lymph # (Auto) 0.6 L [place] # (Auto) 0.1 Eos # (Auto) 0.0 Baso # (Auto) 0.0 Abs Immat Gran (auto) 0.03 Absolute Neuts (auto) 7.7 Absolute Nucleated RBC 0.000 Nucleated RBC % (auto) 0.0 Smear Tech's Comments VERIFIED VBG pH VBG pCO2 VBG pO2 VBG HCO3 VBG O2 Saturation VBG Base Excess Anion Gap 24 H 25 H Estim Creat Clear Calc 6.3 6.1 Estimated GFR 5 5 POC Glucose 185 H Random Glucose 134 H 169 H Lactic Acid Calcium 8.7 8.5 Magnesium 2.3 Total Bilirubin Direct Bilirubin AST ALT Alkaline Phosphatase C-Reactive Protein B-Natriuretic Peptide Total Protein Albumin Procalcitonin Influenza Type A (PCR) Influenza Type B (PCR) RSV RNA Qual (PCR) SARS-CoV-2 RNA (RT-PCR) Assessment and Plan (1) ESRD needing dialysis: Status: Acute Plan 70M PMH end-stage disease on hemodialysis, poor compliance, mood disorder, COPD, diabetes, hypothyroid, hyperlipidemia, hypertension presented with altered mental status found to be hypoxic Sepsis, acute metabolic encephalopathy, acute hypoxic respiratory failure due to pneumonia Continue vancomycin cefepime Follow up cultures, wean O2 as tolerated End-stage renal disease Hemodialysis Chronic hyperkalemia Dialysis, lokelma Diabetes Basal bolus insulin Coccygeal wound Wound care Hypertension Continue atenolol, losartan, amlodipine DVT prophylaxis with heparin subQ Full code reason for continued hospitalization: Hypoxic Quality Stroke Does the patient have a stroke diagnosis?: No VTE Prior VTE?: No VTE Risk Level:: Medical - moderate - high VTE Device Contraindication: Treatment Not Indicated VTE Drug Contraindication: N/A - Med Ordered
[2025-02-25 11:41] VITALS: BP 139/65
[2025-02-25 11:52] LABS: Glucose, Whole Blood 120 mg/dL (60-115)
[2025-02-25] MEDS: Sevelamer Carbonate Tablet 800 MG TABLET 1600 MG PO ×2 (11:55→16:03)
[2025-02-25] MEDS: ALPRAZolam 0.5 MG TABLET 1 MG PO ×2 (11:56→20:08)
--- NOTE | 2025-02-25 12:28 | MHC.CM.PN ---
Addendum entered by Monica Macias 02/25/25 13:05: Per [facility], pt was discharged from their facility on 02/22. Original Note: IMM 02/25. This CM met with pt, pts /HCP Kyara also present at bedside. Pt has been readmitted to [facility] x 4 times in the past month. On this current admission, pt presents from [facility] where he was for STR. Pt states he wishes to return home once he is medically cleared. Pts Kyara states she has concerns with that as she is not able to care for him and his current condition requires more care than she is able to physically provide. Pt goes to HD on Mon/Thu/Fri in [place], and he uses a cane, walker, and a wheelchair. Pts can transport him to HD and home if he is discharged home vs BLS if he goes to STR. PCP: Dr. Matias Tan
[2025-02-25] MEDS: HYDROmorphone HCl 2 MG TABLET PO ×2 (12:58→20:08)
--- NOTE | 2025-02-25 13:42 | P.CONNP_ITS ---
History of Present Illness Reason for Consult Consult date: 02/25/25 Reason for consult: ESRD patient missing dialysis Chief Complaint Chief complaint: SOB History of Present Illness Narrative: 70-year-old male with past medical history of ESRD supposed to be on MWF dialysis schedule but on TTS schedule while in rehab, last dialysis on Thursday missed session on thursday presented to the ED last night with shortness of breath, hyperkalemia and metabolic acidosis. Patient admitted to the floor, hyperkalemia treated, plan for dialysis session this morning. Review of Systems Constitutional: Denies body ache(s) and Denies chills Eyes: Denies exophthalmos and Denies change in vision Denies Normal hearing present and Denies bleeding gums Cardiovascular: Denies Abdominal Cramping after Meds and Denies Abdominal Distension Respiratory: Denies no additional respiratory complaints, Denies change in phlegm color and Denies chest congestion Gastrointestinal: Denies belching and Denies melena Genitourinary: Denies change in libido and Denies hematuria Musculoskeletal: Reports back pain and Reports myalgias Denies Normal hearing present and Denies Neuro-related abnormal movements Psychiatric: Denies change in libido Endocrine: Denies change in libido [facility] Past Medical History Medical History Hypothyroidism Influenza A CHF (congestive heart failure) Acute anemia Multifactorial gait disorder Pneumonia End stage renal disease on dialysis Occult blood positive stool Anemia Internal jugular vein thrombosis Abnormality of gait ESRD needing dialysis Secondary hyperparathyroidism (of renal origin) Anemia in chronic kidney disease DONIS (acute kidney injury) Diabetes Kidney failure HTN (hypertension) Social History Social History Household Members: Spouse Housing: House Are you a primary career developer to a significant other at home: No Do you presently have visiting nurse or other home services: No Alcohol intake: former Comment: sitter in place Patient Tobacco Use Status: Never used Tobacco Cigarette Packs Per Day: 0 Cigarettes Per Day: 0 Years Smoked: NA Smoked in Last 30 Days: No e-Cigarette/Vaping Use: Never Used Second Hand Smoke Exposure: No Use of substances other than those prescribed or required for medical reasons: No Currently Displaying Signs/Symptoms of Drug Intoxication Withdrawal: No Any prior treatment program specific to substance use: No Have you been hit, kicked, punched, or otherwise hurt by someone within the past year? If so, by whom?: No Do you feel safe in your current relationship?: No Is there a partner from a previous relationship who is making you feel unsafe now?: No Are you made to feel afraid or neglected: No Spiritual Healthcare Practices: Muslim Advance Directives: Yes Advance Directives Information Provided: No Advance Directives on File: Yes Advance Directives Date on File: 09/07/23 Do you have a plan to hurt others: No Plan Recently lost weight without trying: No Eating poorly because of decreased appetite: No Nutrition Risks: No Nutritional Risk Poor oral hygiene: No service: No Meds Allergies Allergy/AdvReac Type Severity Reaction Status Date / Time Penicillins [PENICILLINS] Allergy Unknown RASH Verified 02/24/25 18:10 tramadol [From ULTRAM] Allergy Unknown RASH Verified 02/13/25 14:58 trazodone [TRAZODONE] Allergy Unknown PRIAPISM Verified 02/13/25 14:58 risperidone [RISPERIDONE] AdvReac Severe dizzy, EPS Verified 02/13/25 14:58 Active Medications: Current Medications Acetaminophen (Acetaminophen 325 Mg Tablet) 975 mg PO Q6H PRN PRN Reason: Pain, Mild 1-3,fever,headache Alprazolam (Alprazolam 0.5 Mg Tablet) 0.5 mg PO DAILY PRN PRN Reason: Anxiety Last Admin: 02/25/25 01:01 Dose: 0.5 mg Alprazolam (Alprazolam 0.5 Mg Tablet) 1 mg PO BID [facility] Last Admin: 02/25/25 11:56 Dose: 1 mg Amlodipine Besylate (Amlodipine Besylate 5 Mg Tablet) 5 mg PO BID [facility]; Protocol Amphetamine/Dextroamphetamine (Amphetamine Mixed Salts 20 Mg Tablet) 20 mg PO TID [facility] Atenolol (Atenolol 100 Mg Tablet) 100 mg PO DAILY [facility]; Protocol Atorvastatin Calcium (Atorvastatin Calcium 40 Mg Tablet) 40 mg PO BEDTIME [facility] Calcium Carbonate (Calcium Carbonate 750 Mg Tab.Chew) 750 mg PO Q4H PRN PRN Reason: Heartburn Dextrose (Dextrose 50 % 25 Gm/50 Ml Syringe) 25 gm IVPUSH Q15M PRN; Protocol PRN Reason: per Hypoglycemia Standing Ord. Glucose (Glucose Gel 15 Gm Gel..Gram.) 15 gm PO Q15M PRN; Protocol PRN Reason: per Hypoglycemia Standing Ord. Heparin Sodium (Porcine) (Heparin Sodium,Porcine 5,000 Unit/Ml Vial) 5,000 unit SUBCUT Q12H [facility] Last Admin: 02/25/25 09:21 Dose: Not Given Hydromorphone HCl (Hydromorphone Hcl 2 Mg Tablet) 2 mg PO Q8H [facility] Last Admin: 02/25/25 12:58 Dose: 2 mg Hydromorphone HCl (Hydromorphone Hcl 0.5 Mg/0.5 Ml Syringe) 0.25 mg IVPUSH Q4H PRN; Protocol PRN Reason: Pain, Severe (Pain Scale 7-10) Last Admin: 02/25/25 09:19 Dose: 0.25 mg Cefepime HCl 1 gm/ Sodium (Chloride) 50 mls @ 100 mls/hr IV Q24H [facility] Insulin Glargine (Insulin Glargine,Hum.Rec.Anlog 100 Unit/Ml 10 Ml Vial) 5 unit SUBCUT BEDTIME [facility] Insulin Human Lispro (Insulin Lispro 100 Unit/Ml 3 Ml Vial) 0 unit SUBCUT QIDACHS [facility]; Protocol Last Admin: 02/25/25 11:58 Dose: Not Given Levothyroxine Sodium (Levothyroxine Sodium 112 Mcg Tablet) 112 mcg PO DAILY@0600 [facility] Levothyroxine Sodium (Levothyroxine Sodium 25 Mcg Tablet) 25 mcg PO DAILY@0600 [facility] Losartan Potassium (Losartan Potassium 50 Mg Tablet) 100 mg PO DAILY [facility]; Protocol Magnesium Hydroxide (Milk Of Magnesia 30 Ml Oral.Susp) 30 ml PO DAILY PRN PRN Reason: Constipation Melatonin (Melatonin 3 Mg Tablet) 6 mg PO BEDTIME PRN PRN Reason: Insomnia Ondansetron HCl (Ondansetron Hcl 4 Mg/2 Ml Vial) 4 mg IVPUSH Q8H PRN PRN Reason: Nausea and Vomiting Sevelamer Carbonate (Sevelamer Carbonate Tablet 800 Mg Tablet) 1,600 mg PO TIDWM [facility] Last Admin: 02/25/25 11:55 Dose: 1,600 mg Sodium Chloride (0.9 % Sodium Chloride Flush 3 Ml Syringe) 3 ml IVFLUSH QSHIFT [facility] Last Admin: 02/25/25 09:21 Dose: 3 ml Sodium Zirconium Cyclosilicate (Sodium Zirconium Cyclosilicate 10 Gm Powd.Pack) 10 gm PO SUTUTHSA@0900 [facility] Home Medications ?Medication ?Instructions ?Recorded ?Confirmed ?Last Taken ?Type atenolol 100 mg tablet 1 tab PO DAILY 07/11/21 02/24/25 02/02/25 History blood sugar diagnostic (FreeStyle 07/11/21 10/30/24 10/30/24 09:00 History Lite Strips) levothyroxine 137 mcg tablet 1 tab PO DAILY@0600 07/11/21 02/24/25 02/02/25 History pen needle, diabetic 31 gauge x 07/11/21 10/30/24 10/30/24 09:00 History 03/03 (BD Ultra-Fine Short Pen Needle) amlodipine 5 mg tablet 5 mg PO BID 09/03/23 02/24/25 02/02/25 History atorvastatin 40 mg tablet 40 mg PO BEDTIME 02/22/24 02/24/25 02/02/25 History sodium zirconium cyclosilicate 10 10 g PO SUTUTHSA@0900 06/19/24 02/24/25 02/02/25 History gram oral powder packet (Lokelma) alprazolam 0.5 mg tablet 0.5 mg PO DAILY PRN anxiety attack 10/30/24 02/24/25 02/02/25 History alprazolam 2 mg tablet 2 mg PO BID 10/30/24 02/24/25 02/02/25 History insulin lispro 100 unit/mL See Protocol subcut TIDAC PRN 10/30/24 02/24/25 10/30/24 09:00 History subcutaneous pen (Humalog KwikPen Blood Glucose (U-100) Insulin) losartan 100 mg tablet 100 mg PO DAILY 01/09/25 02/24/25 02/02/25 History sevelamer carbonate 800 mg tablet 1,600 mg PO TIDWM 01/09/25 02/24/25 02/02/25 History acetaminophen 325 mg tablet 650 mg PO Q6H PRN Fever Or Pain 02/13/25 02/24/25 Unknown History dextroamphetamine-amphetamine 20 20 mg PO TID 02/24/25 02/24/25 Unknown History mg tablet hydromorphone 4 mg tablet 4 mg PO Q3H PRN Pain 02/24/25 02/24/25 Unknown History vitamin D3 125 mcg (5,000 1 cap PO CHELSEAUTHSA 02/24/25 02/24/25 Unknown History unit)-vitamin K2 100 mcg capsule Physical Exam Vital Signs: Last Vital Signs Temp 97.0 F 02/25/25 03:38 Pulse 76 02/25/25 03:38 Resp 18 02/25/25 03:38 BP 139/65 02/25/25 11:41 Pulse Ox 95 02/25/25 03:38 O2 Del Method High Flow Nasal Cannula 02/25/25 03:38 O2 Flow Rate 35 02/25/25 03:38 FiO2 45 02/25/25 03:38 Oxygen Flow Rate 7 02/24/25 18:05 BMI result Body Mass Index 27.8 General: Elderly male, not in acute acute distress, ill appearing and tired appearing Nutritional Appearance: well nourished and overweight Eyes: appearance normal, both eyes and all related structures; Alignment and Position: alignment normal and position normal Neck: No lymphadenopathy, no thyromegaly Resp: bilateral air entry equal, lung base crackles heard Cardio: Regular rate, regular rhythm; Heart sounds: S1 normal heart sound present and S2 normal heart sound present GI: soft, nontender, no guarding, no hepatosplenomegaly : bladder normal to inspection, bladder normal to palpation, no renal angle tenderness Skin: no rashes or lesions noted and elasticity normal Neuro: oriented to person, oriented to place, oriented to time and moves all extremities Neuro Cranial nerves: No Normal hearing present Results Lab Results 02/25/25 06:12 02/25/25 06:12 Lab results: Chemistry 02/24/25 02/25/25 02/25/25 18:31 00:26 06:12 Sodium 133 L 133 L 133 L Potassium 5.8 H D 6.1 H* 5.5 H Carbon Dioxide 22 21 L 20 L BUN 50 H 56 H 61 H Creatinine 10.50 H* 10.51 H* 10.85 H* Calcium 8.7 8.7 8.5 Hematology 02/24/25 02/25/25 18:30 06:12 WBC 18.8 H 8.5 Hgb 8.1 L 7.3 L Plt Count 304 216 D Assessment and Plan (1) ESRD needing dialysis: Status: Acute (2) Acute hyperkalemia: Status: Acute Plan 1. ESRD on maintenance hemodialysis HD schedule: MWF at his dialysis clinic, but while he is on rehab he is on TTS schedule. His last session was on Thursday, was discharged from the rehab on Thursday so missed his session on Thursday. He was planned for an emergent session this morning, we will continue with his regular schedule starting Thursday. Access: PermCath Volume Status: Euvolemic HD today with goals: 3.5 hours duration/ 4 L UF, 1K bath 2. Electrolyte Management: Hyperkalemia: Medically managed overnight, underwent dialysis this morning Can stop Lokelma Hyperphosphatemia: continue sevelamer dietary phosphate restriction less than 1g/day 3. Anemia of ESRD: Hemoglobin low 7.3, if the hemoglobin drops withhold PRBC transfusion unless he is hemodynamically unstable. We will transfuse with next dialysis session if needed We will restart his home dose of erythropoietin 4. Hypertension: Blood pressure is controlled. continue amlodipine, atenolol, losartan Thanks for your consult, we will continue to follow up this patient along with you. Total time managing care of this patient today: 35 minutes. Procedures Date of Service Date of Service: 02/25/25
[2025-02-25 15:49] VITALS: BP 145/69; PULSE 86; RESP 18; TEMP 37.1; O2SAT 93
[2025-02-25 16:33] LABS: Glucose, Whole Blood 162 mg/dL (60-115)
[2025-02-25] MEDS: Insulin Lispro 100 UNIT/ML 3 ML VIAL SUBCUT ×2 (17:24→21:30)
[2025-02-25] MEDS: cefEPime HCl 1 GM in 0.9 % Sodium Chloride 50 ML IV (18:14)
[2025-02-25 19:27] VITALS: BP 142/66; PULSE 85; RESP 20; TEMP 36.9; O2SAT 93
[2025-02-25] MEDS: Atorvastatin Calcium 40 MG TABLET PO (20:09)
[2025-02-25] MEDS: Heparin Sodium,Porcine 5,000 UNIT/ML VIAL 5000 UNIT SUBCUT (20:09)
[2025-02-25] MEDS: amLODIPine Besylate 5 MG TABLET PO (20:09)
[2025-02-25 21:25] LABS: Glucose, Whole Blood 153 mg/dL (60-115)
[2025-02-25] MEDS: Insulin Glargine,Hum.rec.anlog 100 UNIT/ML 10 ML VIAL SUBCUT (21:33)
[2025-02-26] VITALS (8 sets, daily range): BP systolic 132–161; BP diastolic 59–72; PULSE 70–80; RESP 16–20; TEMP 36.1–37; O2SAT 94–100
[2025-02-26] MEDS: HYDROmorphone HCl 0.5 MG/0.5 ML SYRINGE 0.25 MG IVPUSH ×3 (02:49→13:14)
[2025-02-26] MEDS: Levothyroxine Sodium 25 MCG TABLET PO (04:21)
[2025-02-26] MEDS: HYDROmorphone HCl 2 MG TABLET PO ×3 (04:22→20:34)
[2025-02-26] MEDS: Levothyroxine Sodium 112 MCG TABLET PO (04:22)
[2025-02-26 07:41] LABS: Glucose, Whole Blood 89 mg/dL (60-115)
[2025-02-26 07:59] LABS: Basophils Percent Auto 0.4 % (0-2); Eosinophils Absolute Auto 0.1 X10*3/uL (0.0-0.4); Eosinophils Percent Auto 0.5 % (0-4); Hematocrit 21.3 % (42.0-52.0); Hemoglobin 7.5 g/dl (14.0-18.0); Imm Gran Abs Auto 0.04 X10*3/uL (0.00-0.03); Imm Gran Pct Auto 0.4 % (0.0-0.4); Lymphocytes Absolute Auto 1.3 X10*3/uL (1.2-4.9); Lymphocytes Percent Auto 11.4 % (20-40); MANUAL DIFF FLAG SCAN; Mean Corpuscular HGB Conc 35.2 g/dl (31.0-36.0); Mean Corpuscular Hemoglobin 31.4 pg (27.0-33.0); Mean Corpuscular Volume 89.1 fL (80.0-98.0); Mean Platelet Volume 10.1 fL (9.4-12.4); Monocytes Absolute Auto 1.2 X10*3/uL (0.1-1.2); Monocytes Percent Auto 10.7 % (2-11); Neutrophils Absolute Auto 8.7 x10*3/uL (2.0-8.3); Neutrophils Percent Auto 76.6 % (45-73); PLT CLUMP 1; Red Blood Count 2.39 X10*6/uL (4.60-5.80); Red Cell Distribution Width 15.8 % (11.0-16.0); SCAN SMEAR FLAG 1
[2025-02-26 08:02] LABS: Platelet Count 243 X10*3/uL (160-400); White Blood Count 11.3 X10*3/uL (4.8-10.8)
[2025-02-26 08:21] LABS: Anion Gap 22 (12-20); Blood Urea Nitrogen 47 mg/dL (9-16); Calcium 8.4 mg/dL (8.4-10.2); Carbon Dioxide 24 mmol/L (22-29); Chloride 97 mmol/L (96-108); Creatinine Clr Calc Pharmacy 9.3; Estimated Glomerular Filt Rate 8; Glucose Random 96 mg/dL (60-115); Magnesium 2.2 mg/dL (1.6-2.6); Potassium 5.9 mmol/L (3.3-5.1); Sodium 137 mmol/L (135-145)
[2025-02-26 08:32] LABS: SLIDE REVIEW VERIFIED
--- NOTE | 2025-02-26 08:55 | P.PNIM_ITS ---
Subjective Subjective Date of Service: 02/26/25 Interval History: sob, diffuse body aches Physical Exam 2 Vital Signs: Vital Signs: Last Vital Signs Temp 98.1 F 02/26/25 07:11 Pulse 70 02/26/25 07:11 Resp 18 02/26/25 07:11 BP 133/65 02/26/25 07:11 Pulse Ox 94 02/26/25 07:11 O2 Del Method Nasal Cannula 02/26/25 07:11 O2 Flow Rate 2 02/26/25 07:11 FiO2 45 02/25/25 03:38 Oxygen Flow Rate 7 02/24/25 18:05 BMI result Body Mass Index 27.8 Lethargic, no acute distress Crackles bilateral Abdomen soft nontender Objective Data Active Medications Acetaminophen (Acetaminophen 325 Mg Tablet) 975 mg PO Q6H PRN PRN Reason: Pain, Mild 1-3,fever,headache Alprazolam (Alprazolam 0.5 Mg Tablet) 0.5 mg PO DAILY PRN PRN Reason: Anxiety Last Admin: 02/25/25 01:01 Dose: 0.5 mg Documented By: AJIT Alprazolam (Alprazolam 0.5 Mg Tablet) 1 mg PO BID [facility] Last Admin: 02/25/25 20:08 Dose: 1 mg Documented By: AJIT Amlodipine Besylate (Amlodipine Besylate 5 Mg Tablet) 5 mg PO BID [facility]; Protocol Last Admin: 02/25/25 20:09 Dose: 5 mg Documented By: AJIT Amphetamine/Dextroamphetamine (Amphetamine Mixed Salts 20 Mg Tablet) 20 mg PO TID [facility] Last Admin: 02/25/25 20:13 Dose: Not Given Documented By: AJIT Non-Admin Reason: Patient Refused Atenolol (Atenolol 100 Mg Tablet) 100 mg PO DAILY [facility]; Protocol Atorvastatin Calcium (Atorvastatin Calcium 40 Mg Tablet) 40 mg PO BEDTIME [facility] Last Admin: 02/25/25 20:09 Dose: 40 mg Documented By: AJIT Calcium Carbonate (Calcium Carbonate 750 Mg Tab.Chew) 750 mg PO Q4H PRN PRN Reason: Heartburn Dextrose (Dextrose 50 % 25 Gm/50 Ml Syringe) 25 gm IVPUSH Q15M PRN; Protocol PRN Reason: per Hypoglycemia Standing Ord. Glucose (Glucose Gel 15 Gm Gel..Gram.) 15 gm PO Q15M PRN; Protocol PRN Reason: per Hypoglycemia Standing Ord. Heparin Sodium (Porcine) (Heparin Sodium,Porcine 5,000 Unit/Ml Vial) 5,000 unit SUBCUT Q12H [facility] Last Admin: 02/25/25 20:09 Dose: 5,000 unit Documented By: AJIT Hydromorphone HCl (Hydromorphone Hcl 2 Mg Tablet) 2 mg PO Q8H [facility] Last Admin: 02/26/25 04:22 Dose: 2 mg Documented By: AJIT Hydromorphone HCl (Hydromorphone Hcl 0.5 Mg/0.5 Ml Syringe) 0.25 mg IVPUSH Q4H PRN; Protocol PRN Reason: Pain, Severe (Pain Scale 7-10) Last Admin: 02/26/25 02:49 Dose: 0.25 mg Documented By: AJIT Cefepime HCl 1 gm/ Sodium (Chloride) 50 mls @ 100 mls/hr IV Q24H [facility] Last Infusion: 02/25/25 20:20 Dose: Infused Documented By: AJIT Insulin Glargine (Insulin Glargine,Hum.Rec.Anlog 100 Unit/Ml 10 Ml Vial) 5 unit SUBCUT BEDTIME [facility] Last Admin: 02/25/25 21:33 Dose: 5 unit Documented By: AJIT Insulin Human Lispro (Insulin Lispro 100 Unit/Ml 3 Ml Vial) 0 unit SUBCUT QIDACHS [facility]; Protocol Last Admin: 02/25/25 21:30 Dose: 2 unit Documented By: AJIT Levothyroxine Sodium (Levothyroxine Sodium 112 Mcg Tablet) 112 mcg PO DAILY@0600 [facility] Last Admin: 02/26/25 04:22 Dose: 112 mcg Documented By: AJIT Levothyroxine Sodium (Levothyroxine Sodium 25 Mcg Tablet) 25 mcg PO DAILY@0600 [facility] Last Admin: 02/26/25 04:21 Dose: 25 mcg Documented By: AJIT Losartan Potassium (Losartan Potassium 50 Mg Tablet) 100 mg PO DAILY [facility]; Protocol Magnesium Hydroxide (Milk Of Magnesia 30 Ml Oral.Susp) 30 ml PO DAILY PRN PRN Reason: Constipation Melatonin (Melatonin 3 Mg Tablet) 6 mg PO BEDTIME PRN PRN Reason: Insomnia Ondansetron HCl (Ondansetron Hcl 4 Mg/2 Ml Vial) 4 mg IVPUSH Q8H PRN PRN Reason: Nausea and Vomiting Sevelamer Carbonate (Sevelamer Carbonate Tablet 800 Mg Tablet) 1,600 mg PO TIDWM [facility] Last Admin: 02/25/25 16:03 Dose: 1,600 mg Documented By: JESÚS Sodium Chloride (0.9 % Sodium Chloride Flush 3 Ml Syringe) 3 ml IVFLUSH QSHIFT [facility] Last Admin: 02/25/25 20:11 Dose: 3 ml Documented By: AJIT Sodium Zirconium Cyclosilicate (Sodium Zirconium Cyclosilicate 10 Gm Powd.Pack) 10 gm PO SUTUTHSA@0900 [facility] Labs 02/26/25 07:29 02/26/25 07:29 Labs: Laboratory Results - last 24 hr 02/25/25 02/25/25 02/25/25 11:48 16:29 21:08 MCV MCH MCHC RDW Plt Count MPV Immature Gran % (Auto) Neut % (Auto) Lymph % (Auto) [place] % (Auto) Eos % (Auto) Baso % (Auto) Lymph # (Auto) [place] # (Auto) Eos # (Auto) Baso # (Auto) Abs Immat Gran (auto) Absolute Neuts (auto) Absolute Nucleated RBC Nucleated RBC % (auto) Smear Tech's Comments Anion Gap Estim Creat Clear Calc Estimated GFR POC Glucose 120 H 162 H 153 H Random Glucose Calcium Magnesium 02/26/25 02/26/25 07:29 07:36 MCV 89.1 MCH 31.4 MCHC 35.2 RDW 15.8 Plt Count 243 MPV 10.1 Immature Gran % (Auto) 0.4 Neut % (Auto) 76.6 H Lymph % (Auto) 11.4 L [place] % (Auto) 10.7 Eos % (Auto) 0.5 Baso % (Auto) 0.4 Lymph # (Auto) 1.3 [place] # (Auto) 1.2 Eos # (Auto) 0.1 Baso # (Auto) 0.0 Abs Immat Gran (auto) 0.04 H Absolute Neuts (auto) 8.7 H Absolute Nucleated RBC 0.000 Nucleated RBC % (auto) 0.0 Smear Tech's Comments VERIFIED Anion Gap 22 H Estim Creat Clear Calc 9.3 Estimated GFR 8 POC Glucose 89 Random Glucose 96 Calcium 8.4 Magnesium 2.2 Microbiology Microbiology Results: Microbiology 02/24/25 18:30 Blood Culture - Preliminary Blood - Venous No growth after 24 hours. 02/24/25 18:37 Blood Culture - Preliminary Blood - Venous No growth after 24 hours. Assessment and Plan (1) ESRD needing dialysis: Status: Acute Plan 70M PMH end-stage disease on hemodialysis, poor compliance, mood disorder, COPD, diabetes, hypothyroid, hyperlipidemia, hypertension presented with altered mental status found to be hypoxic Sepsis, acute metabolic encephalopathy, acute hypoxic respiratory failure due to pneumonia Continue cefepime cultures negative so far, will dc vanc End-stage renal disease Hemodialysis Chronic hyperkalemia Dialysis, lokelma Diabetes Basal bolus insulin Coccygeal wound Wound care Hypertension Continue atenolol, losartan, amlodipine DVT prophylaxis with heparin subQ Full code reason for continued hospitalization: Hypoxic Quality Stroke Does the patient have a stroke diagnosis?: No VTE Prior VTE?: No VTE Risk Level:: Medical - moderate - high VTE Device Contraindication: Treatment Not Indicated VTE Drug Contraindication: N/A - Med Ordered
[2025-02-26] MEDS: Sevelamer Carbonate Tablet 800 MG TABLET 1600 MG PO ×2 (09:03→15:03)
[2025-02-26] MEDS: ALPRAZolam 0.5 MG TABLET 1 MG PO ×2 (09:03→20:33)
[2025-02-26] MEDS: Heparin Sodium,Porcine 5,000 UNIT/ML VIAL 5000 UNIT SUBCUT ×2 (09:04→20:35)
[2025-02-26] MEDS: Losartan Potassium 50 MG TABLET 100 MG PO (09:04)
[2025-02-26] MEDS: Amphetamine Mixed Salts 20 MG TABLET PO ×3 (09:04→20:34)
[2025-02-26] MEDS: amLODIPine Besylate 5 MG TABLET PO ×2 (09:04→20:34)
[2025-02-26] MEDS: 0.9 % Sodium Chloride Flush 3 ML SYRINGE IVFLUSH ×3 (09:06→20:35)
[2025-02-26] MEDS: atenoloL 100 MG TABLET PO (09:16)
[2025-02-26] MEDS: Sodium Zirconium Cyclosilicate 10 GM POWD.PACK PO (11:12)
[2025-02-26 11:15] LABS: Appearance Urine Clear; Color Urine Yellow; Glucose Urine UA 100 mg/dL (Negative); Leukocyte Esterase Urine Negative (Negative); Nitrite Urine Negative (Negative); PH >= 9.0 (5.0-9.0); UMIC TRIGGER UACC YES; Urine Blood Negative (Negative); Urine Ketones Negative (Negative); Urine Protein 100 (2+) mg/dL (Neg-Trace)
[2025-02-26 11:23] LABS: Bacteria Urine None Seen (None Seen); Hyaline Casts Urine 0-2 /LPF (0-2); RBC Urine 0-2 /HPF (0-2); Squamous Epithelial Cell Urine 0-2 /HPF (0-2); WBC Urine 0-5 /HPF (0-5)
[2025-02-26 11:58] LABS: Glucose, Whole Blood 158 mg/dL (60-115)
[2025-02-26] MEDS: Insulin Lispro 100 UNIT/ML 3 ML VIAL SUBCUT ×2 (12:41→20:45)
[2025-02-26] MEDS: ALPRAZolam 0.5 MG TABLET PO (15:14)
--- NOTE | 2025-02-26 16:34 | PC.NURSE ---
This RN spoke with patient at bedside regarding his future plans after discharge. He informed me that he would be compliant with staying at his rehab until properly discharged by the facility. Has concerns regarding his and her inability to care for him at home.
[2025-02-26 16:49] LABS: Glucose, Whole Blood 118 mg/dL (60-115)
[2025-02-26] MEDS: Atorvastatin Calcium 40 MG TABLET PO (20:34)
[2025-02-26] MEDS: Insulin Glargine,Hum.rec.anlog 100 UNIT/ML 10 ML VIAL SUBCUT (20:45)
[2025-02-26 20:53] LABS: Glucose, Whole Blood 167 mg/dL (60-115)
[2025-02-27] MEDS: HYDROmorphone HCl 0.5 MG/0.5 ML SYRINGE 0.25 MG IVPUSH ×2 (02:25→14:27)
[2025-02-27 03:17] VITALS: BP 131/65; PULSE 67; RESP 16; TEMP 37.1; O2SAT 97
[2025-02-27] MEDS: HYDROmorphone HCl 2 MG TABLET PO ×2 (06:16→13:17)
[2025-02-27] MEDS: Levothyroxine Sodium 112 MCG TABLET PO (06:16)
[2025-02-27] MEDS: Levothyroxine Sodium 25 MCG TABLET PO (06:16)
[2025-02-27 06:59] VITALS: BP 131/65; PULSE 72; RESP 20; TEMP 36.5; O2SAT 92
[2025-02-27 07:00] LABS: Glucose, Whole Blood 98 mg/dL (60-115)
[2025-02-27] MEDS: ALPRAZolam 0.5 MG TABLET 1 MG PO (08:25)
[2025-02-27] MEDS: Sevelamer Carbonate Tablet 800 MG TABLET 1600 MG PO ×2 (08:25→13:17)
[2025-02-27] MEDS: atenoloL 100 MG TABLET PO (08:25)
[2025-02-27] MEDS: 0.9 % Sodium Chloride Flush 3 ML SYRINGE IVFLUSH ×2 (08:26→14:27)
[2025-02-27] MEDS: Amphetamine Mixed Salts 20 MG TABLET PO (08:26)
[2025-02-27] MEDS: Losartan Potassium 50 MG TABLET 100 MG PO (08:26)
[2025-02-27] MEDS: amLODIPine Besylate 5 MG TABLET PO (08:26)
[2025-02-27] MEDS: Heparin Sodium,Porcine 5,000 UNIT/ML VIAL 5000 UNIT SUBCUT (08:26)
--- NOTE | 2025-02-27 09:12 | HO.PM.IMPN ---
Subjective Subjective Date of Service: 02/27/25 Interval History: feeling better Physical Exam Vital Signs: Vital Signs: Last Vital Signs Temp 97.7 F 02/27/25 06:59 Pulse 72 02/27/25 06:59 Resp 20 02/27/25 06:59 BP 131/65 02/27/25 06:59 Pulse Ox 92 02/27/25 06:59 O2 Del Method Room Air 02/27/25 06:59 O2 Flow Rate 1 02/27/25 03:17 FiO2 45 02/25/25 03:38 Oxygen Flow Rate 7 02/24/25 18:05 BMI result Body Mass Index 27.8 more alert, lungs clear Objective Data Active Medications Acetaminophen (Acetaminophen 325 Mg Tablet) 975 mg PO Q6H PRN PRN Reason: Pain, Mild 1-3,fever,headache Alprazolam (Alprazolam 0.5 Mg Tablet) 0.5 mg PO DAILY PRN PRN Reason: Anxiety Last Admin: 02/26/25 15:14 Dose: 0.5 mg Documented By: MARCELINA Alprazolam (Alprazolam 0.5 Mg Tablet) 1 mg PO BID REPLACED BY [facility] Last Admin: 02/27/25 08:25 Dose: 1 mg Documented By: DONALD Amlodipine Besylate (Amlodipine Besylate 5 Mg Tablet) 5 mg PO BID REPLACED BY [facility]; Protocol Last Admin: 02/27/25 08:26 Dose: 5 mg Documented By: DONALD Amphetamine/Dextroamphetamine (Amphetamine Mixed Salts 20 Mg Tablet) 20 mg PO TID REPLACED BY [facility] Last Admin: 02/27/25 08:26 Dose: 20 mg Documented By: DONALD Atenolol (Atenolol 100 Mg Tablet) 100 mg PO DAILY REPLACED BY [facility]; Protocol Last Admin: 02/27/25 08:25 Dose: 100 mg Documented By: DONALD Atorvastatin Calcium (Atorvastatin Calcium 40 Mg Tablet) 40 mg PO BEDTIME REPLACED BY [facility] Last Admin: 02/26/25 20:34 Dose: 40 mg Documented By: EDA Calcium Carbonate (Calcium Carbonate 750 Mg Tab.Chew) 750 mg PO Q4H PRN PRN Reason: Heartburn Dextrose (Dextrose 50 % 25 Gm/50 Ml Syringe) 25 gm IVPUSH Q15M PRN; Protocol PRN Reason: per Hypoglycemia Standing Ord. Glucose (Glucose Gel 15 Gm Gel..Gram.) 15 gm PO Q15M PRN; Protocol PRN Reason: per Hypoglycemia Standing Ord. Heparin Sodium (Porcine) (Heparin Sodium,Porcine 5,000 Unit/Ml Vial) 5,000 unit SUBCUT Q12H REPLACED BY [facility] Last Admin: 02/27/25 08:26 Dose: 5,000 unit Documented By: DONALD Heparin Sodium (Porcine) (Heparin Sodium,Porcine Flush 500 Unit/5 Ml Syringe) 500 unit IVFLUSH MOWEFR@1645 REPLACED BY [facility] Heparin Sodium (Porcine) (Heparin Sodium,Porcine 5,000 Unit/Ml Vial) 5,000 unit INTRACATH MOWEFR@1645 REPLACED BY [facility] Hydromorphone HCl (Hydromorphone Hcl 2 Mg Tablet) 2 mg PO Q8H REPLACED BY [facility] Last Admin: 02/27/25 06:16 Dose: 2 mg Documented By: EDA Hydromorphone HCl (Hydromorphone Hcl 0.5 Mg/0.5 Ml Syringe) 0.25 mg IVPUSH Q4H PRN; Protocol PRN Reason: Pain, Severe (Pain Scale 7-10) Last Admin: 02/27/25 02:25 Dose: 0.25 mg Documented By: EDA Cefepime HCl 1 gm/ Sodium (Chloride) 50 mls @ 100 mls/hr IV Q24H REPLACED BY [facility] Last Admin: 02/26/25 20:33 Dose: Not Given Documented By: EDA Non-Admin Reason: no dialysis today Albumin Human (Kedbumin 25 %) 50 mls @ 100 mls/hr IV MOWEFR@1645,1715 REPLACED BY [facility] Insulin Glargine (Insulin Glargine,Hum.Rec.Anlog 100 Unit/Ml 10 Ml Vial) 5 unit SUBCUT BEDTIME REPLACED BY [facility] Last Admin: 02/26/25 20:45 Dose: 5 unit Documented By: EDA Insulin Human Lispro (Insulin Lispro 100 Unit/Ml 3 Ml Vial) 0 unit SUBCUT QIDACHS REPLACED BY [facility]; Protocol Last Admin: 02/27/25 08:27 Dose: Not Given Documented By: DONALD Non-Admin Reason: No Insulin Coverage Levothyroxine Sodium (Levothyroxine Sodium 112 Mcg Tablet) 112 mcg PO DAILY@0600 REPLACED BY [facility] Last Admin: 02/27/25 06:16 Dose: 112 mcg Documented By: EDA Levothyroxine Sodium (Levothyroxine Sodium 25 Mcg Tablet) 25 mcg PO DAILY@0600 REPLACED BY [facility] Last Admin: 02/27/25 06:16 Dose: 25 mcg Documented By: EDA Losartan Potassium (Losartan Potassium 50 Mg Tablet) 100 mg PO DAILY REPLACED BY [facility]; Protocol Last Admin: 02/27/25 08:26 Dose: 100 mg Documented By: DONALD Magnesium Hydroxide (Milk Of Magnesia 30 Ml Oral.Susp) 30 ml PO DAILY PRN PRN Reason: Constipation Melatonin (Melatonin 3 Mg Tablet) 6 mg PO BEDTIME PRN PRN Reason: Insomnia Midodrine (Midodrine Hcl 10 Mg Tablet) 10 mg PO MOWEFR@1645 PRN PRN Reason: Dialysis hypotension Ondansetron HCl (Ondansetron Hcl 4 Mg/2 Ml Vial) 4 mg IVPUSH Q8H PRN PRN Reason: Nausea and Vomiting Sevelamer Carbonate (Sevelamer Carbonate Tablet 800 Mg Tablet) 1,600 mg PO TIDWM REPLACED BY [facility] Last Admin: 02/27/25 08:25 Dose: 1,600 mg Documented By: DONALD Sodium Chloride (0.9 % Sodium Chloride Flush 3 Ml Syringe) 3 ml IVFLUSH QSHIFT REPLACED BY [facility] Last Admin: 02/27/25 08:26 Dose: 3 ml Documented By: DONALD Sodium Zirconium Cyclosilicate (Sodium Zirconium Cyclosilicate 10 Gm Powd.Pack) 10 gm PO SUTUTHSA@0900 REPLACED BY [facility] Last Admin: 02/26/25 11:12 Dose: 10 gm Documented By: MARCELINA Labs 02/26/25 07:29 02/26/25 07:29 Labs: Laboratory Results - last 24 hr 02/26/25 02/26/25 02/26/25 11:04 11:32 16:41 POC Glucose 158 H 118 H Urine Color Yellow Urine Appearance Clear Urine pH >= 9.0 Ur Specific Dix 1.010 Urine Protein 100 (2+) H Urine Glucose (UA) 100 H Urine Ketones Negative Urine Blood Negative Urine Nitrite Negative Ur Leukocyte Esterase Negative Urine RBC 0-2 Urine WBC 0-5 Ur Squamous Epith Cells 0-2 Urine Bacteria None Seen Hyaline Casts 0-2 02/26/25 02/27/25 20:41 06:52 POC Glucose 167 H 98 Urine Color Urine Appearance Urine pH Ur Specific Dix Urine Protein Urine Glucose (UA) Urine Ketones Urine Blood Urine Nitrite Ur Leukocyte Esterase Urine RBC Urine WBC Ur Squamous Epith Cells Urine Bacteria Hyaline Casts Microbiology Microbiology Results: Microbiology 02/24/25 18:30 Blood Culture - Preliminary Blood - Venous No growth after 48 hours. 02/24/25 18:37 Blood Culture - Preliminary Blood - Venous No growth after 48 hours. Assessment and Plan (1) ESRD needing dialysis: Status: Acute Plan 70M PMH end-stage disease on hemodialysis, poor compliance, mood disorder, COPD, diabetes, hypothyroid, hyperlipidemia, hypertension presented with altered mental status found to be hypoxic Sepsis, acute metabolic encephalopathy, acute hypoxic respiratory failure due to pneumonia Continue cefepime cultures negative so far, dced vanc End-stage renal disease Hemodialysis Chronic hyperkalemia Dialysis, lokelma, hold losartan Diabetes Basal bolus insulin Coccygeal wound Wound care Hypertension Continue atenolol, amlodipine DVT prophylaxis with heparin subQ Full code reason for continued hospitalization: dispo planning Quality Stroke Does the patient have a stroke diagnosis?: No VTE Prior VTE?: No VTE Risk Level:: Medical - moderate - high VTE Device Contraindication: Treatment Not Indicated VTE Drug Contraindication: N/A - Med Ordered
--- NOTE | 2025-02-27 10:30 | W.PM.DNNEP ---
Subjective Subjective Date of Service: 02/27/25 This patient was seen during dialysis. Interval history: 70 y/o male with ESRD on HD M,W,F, missed HD, last session Wednesday 02/21; presented 02/25 with shortness of breath, confusion. Patient receiving HD today- at bedside reports he is feeling fatigued, denies other concerns. states breathing is comfortable denies chest pain, abdominal pain denies nausea, vomiting denies new tremors oliguric at baseline, voids every 2 days or so Physical Exam Vital Signs: Vital Signs: Last Vital Signs Temp 97.7 F 02/27/25 06:59 Pulse 72 02/27/25 06:59 Resp 20 02/27/25 06:59 BP 131/65 02/27/25 06:59 Pulse Ox 92 02/27/25 06:59 O2 Del Method Room Air 02/27/25 06:59 O2 Flow Rate 1 02/27/25 03:17 FiO2 45 02/25/25 03:38 Oxygen Flow Rate 7 02/24/25 18:05 BMI result Body Mass Index 27.8 Const: General: no acute distress, alert and awake Resp: Effort & Inspection: normal respiratory effort Auscultation: clear to auscultation bilaterally Cardio: Rate: regular rate Rhythm: regular rhythm Heart sounds: S1 normal heart sound present and S2 normal heart sound present GI: Palpation (GI): Soft to palpation and nontender Skin: Rashes: no rashes Extrem: General: No edema Assessment & Plan Assessment and plan (1) ESRD needing dialysis: Status: Acute Plan ESRD on HD MWF access: LUE AV fistula appears euvolemic continue sevelamer, low phos diet H&H stable, procrit 20,000 units 3x weekly potassium low today- recommend discontinue scheduled PO lokelma, continue with HD MWF continue to monitor electrolytes renal function studies daily regular blood pressure checks will continue to follow Discussed with Dr Quinn. Time Spent With Patient Time: Total time managing care of this patient today ____ minutes. Procedures Date of Service Date of Service: 02/27/25
[2025-02-27 10:32] LABS: MANUAL DIFF FLAG NO
[2025-02-27 10:35] LABS: Basophils Absolute Auto 0.1 X10*3/uL (0.0-0.2); Basophils Percent Auto 0.5 % (0-2); Eosinophils Absolute Auto 0.6 X10*3/uL (0.0-0.4); Eosinophils Percent Auto 4.2 % (0-4); Hematocrit 24.4 % (42.0-52.0); Hemoglobin 8.4 g/dl (14.0-18.0); Imm Gran Abs Auto 0.06 X10*3/uL (0.00-0.03); Imm Gran Pct Auto 0.5 % (0.0-0.4); Lymphocytes Absolute Auto 1.1 X10*3/uL (1.2-4.9); Lymphocytes Percent Auto 8.5 % (20-40); Mean Corpuscular HGB Conc 34.4 g/dl (31.0-36.0); Mean Corpuscular Hemoglobin 31.7 pg (27.0-33.0); Mean Corpuscular Volume 92.1 fL (80.0-98.0); Mean Platelet Volume 9.3 fL (9.4-12.4); Monocytes Absolute Auto 1.3 X10*3/uL (0.1-1.2); Monocytes Percent Auto 9.5 % (2-11); Neutrophils Absolute Auto 10.2 x10*3/uL (2.0-8.3); Neutrophils Percent Auto 76.8 % (45-73); Platelet Count 291 X10*3/uL (160-400); Red Blood Count 2.65 X10*6/uL (4.60-5.80); Red Cell Distribution Width 15.7 % (11.0-16.0); White Blood Count 13.2 X10*3/uL (4.8-10.8)
[2025-02-27 11:07] LABS: Blood Urea Nitrogen 28 mg/dL (9-16); Calcium 8.6 mg/dL (8.4-10.2); Creatinine Clr Calc Pharmacy 15.9; Estimated Glomerular Filt Rate 14; Glucose Random 151 mg/dL (60-115); Magnesium 1.9 mg/dL (1.6-2.6)
[2025-02-27 11:16] LABS: Anion Gap 15 (12-20); Carbon Dioxide 28 mmol/L (22-29); Chloride 95 mmol/L (96-108); Potassium 3.1 mmol/L (3.3-5.1); Sodium 135 mmol/L (135-145)
--- NOTE | 2025-02-27 12:00 | HO.WOUND ---
Wound Consult: Attempted Arrival to bedside patient was off unit - will attempt skin assessment at future date and or time.
--- NOTE | 2025-02-27 12:28 | P.DS_ITS ---
DS: Providers Provider Date of Service: 02/27/25 Date of admission: 02/24/25 21:03 Date of discharge: 02/27/25 Primary care physician: Unknown Physician Consults: 02/24/25 21:13 Consult to Nephrology Routine Consulting Provider: [facility] Reason for consultation: ESRD on HD, needs dialysis Has provider been notified: No 02/24/25 21:38 Consult to Wound Care Routine Reason for consultation: coccygeal wound DS: Diagnosis Discharge Diagnosis (1) ESRD needing dialysis: Status: Acute DS: Summary Hospital Course Hospital Course: from initial hpi: 70-year-old male with a past medical history significant for ESRD on HD with frequent admissions due to noncompliance with dialysis, mood disorder, stage I COPD, insulin-dependent diabetes, hypothyroid, HLD, chronic anemia, GERD and HTN, who presented to the ED found unresponsive by family member. EMS was called and he was found to be 70% on room air, but on 15 L O2 with improvement 80%, ultimately placed on CPAP. The patient reports shortness of breath and fever. He was recently discharged from here on 02/15 for noncompliance with dialysis and electrolyte abnormalities, discharged to [facility] and left [facility] yesterday. The patient does not wish to talk, therefore minimal history was given. He reports that he has skipped his last few sessions of dialysis as he wanted a break. He is complaining of his chronic pain and requesting his pain medications, Dilaudid 4 mg every 8 hours as well as his anxiety medication, Xanax 2 mg b.i.d. and 0.5 mg p.r.n.. hospital course: Patient was admitted for sepsis and acute metabolic encephalopathy and acute hypoxic respiratory failure due to pneumonia. Was treated with cefepime and sepsis, hypoxia and encephalopathy resolved. He is now on room air, cultures were negative, will be discharged on 5 more days of Ceftin. For end-stage renal disease complicated by acute on chronic hyperkalemia was treated with hemodialysis and low,, losartan has been discontinued. For diabetes was continued on basal bolus insulin. For coccygeal wound was continued with wound care. For hypertension was continued on atenolol and amlodipine. Patient is feeling better [facility]. He is expected require less than 30 days. Time Attestation Discharge Coordination Time (in mins): 37 Quality: Safe Use of Opioids Does Pt have an Active Cancer Diagnosis on the Problem List?: No Quality: Stroke Does the patient have a stroke diagnosis?: No Physical Exam Vital Signs: Vital Signs: Last Vital Signs Temp 97.7 F 02/27/25 06:59 Pulse 72 02/27/25 06:59 Resp 20 02/27/25 06:59 BP 131/65 02/27/25 06:59 Pulse Ox 92 02/27/25 06:59 O2 Del Method Room Air 02/27/25 06:59 O2 Flow Rate 1 02/27/25 03:17 FiO2 45 02/25/25 03:38 Oxygen Flow Rate 7 02/24/25 18:05 BMI result Body Mass Index 27.8 more alert, lungs clear DS: Data Data Completed and Pending Completed studies during hospitalization [Text1]: Procedures Assistance with Respiratory Ventilation, Less than 24 Consecutive Hours, Continuous Positive Airway Pressure (02/04/25) Control Bleeding in Gastrointestinal Tract, Via Natural or Artificial Opening Endoscopic (01/22/25) Excision of Esophagogastric Junction, Via Natural or Artificial Opening Endoscopic, Diagnostic (01/22/25) Excision of Stomach, Pylorus, Via Natural or Artificial Opening Endoscopic, Diagnostic (01/22/25) Inspection of Lower Intestinal Tract, Via Natural or Artificial Opening Endoscopic (01/22/25) Performance of Urinary Filtration, Intermittent, Less than 6 Hours Per Day (02/13/25) Transfusion of Nonautologous Red Blood Cells into Peripheral Vein, Percutaneous Approach (02/04/25) Labs on day of discharge: Laboratory Results - last 24 hr 02/26/25 02/26/25 02/27/25 16:41 20:41 06:52 WBC RBC Hgb Hct MCV MCH MCHC RDW Plt Count MPV Immature Gran % (Auto) Neut % (Auto) Lymph % (Auto) [place] % (Auto) Eos % (Auto) Baso % (Auto) Lymph # (Auto) [place] # (Auto) Eos # (Auto) Baso # (Auto) Abs Immat Gran (auto) Absolute Neuts (auto) Absolute Nucleated RBC Nucleated RBC % (auto) Sodium Potassium Chloride Carbon Dioxide Anion Gap BUN Creatinine Estim Creat Clear Calc Estimated GFR POC Glucose 118 H 167 H 98 Random Glucose Calcium Magnesium 02/27/25 10:26 WBC 13.2 H RBC 2.65 L Hgb 8.4 L Hct 24.4 L MCV 92.1 MCH 31.7 MCHC 34.4 RDW 15.7 Plt Count 291 MPV 9.3 L Immature Gran % (Auto) 0.5 H Neut % (Auto) 76.8 H Lymph % (Auto) 8.5 L [place] % (Auto) 9.5 Eos % (Auto) 4.2 H Baso % (Auto) 0.5 Lymph # (Auto) 1.1 L [place] # (Auto) 1.3 H Eos # (Auto) 0.6 H Baso # (Auto) 0.1 Abs Immat Gran (auto) 0.06 H Absolute Neuts (auto) 10.2 H Absolute Nucleated RBC 0.000 Nucleated RBC % (auto) 0.0 Sodium 135 Potassium 3.1 L D Chloride 95 L Carbon Dioxide 28 Anion Gap 15 BUN 28 H Creatinine 4.17 H* Estim Creat Clear Calc 15.9 Estimated GFR 14 POC Glucose Random Glucose 151 H Calcium 8.6 Magnesium 1.9 Preliminary micro results at discharge 02/24/25 18:30 Blood Culture - Preliminary Blood - Venous No growth after 48 hours. 02/24/25 18:37 Blood Culture - Preliminary Blood - Venous No growth after 48 hours. Discharge Plan Discharge Anticipated Discharge Date/Time: 02/27/25 12:25 Patient Disposition: Xfer SNF Discharge Diagnosis: pna Referrals: Physician,Unknown J [Primary Care Provider] - 1 Week Discharge Medications: New midodrine 10 mg Tablet 10 mg PO MOWEFR@1645 PRN (Reason: Dialysis Hypotension) Qty: 0 0RF cefuroxime axetil 500 mg tablet 500 mg PO BID Qty: 10 0RF Continued levothyroxine 137 mcg tablet 1 tab PO DAILY@0600 atenolol 100 mg tablet 1 tab PO DAILY (DME) FreeStyle Lite Strips Strip MISCELLANEOUS TID (DME) pen needle, diabetic [BD Ultra-Fine Short Pen Needle] 31 gauge x 5/16 needle subcut DAILY Lokelma 10 gram Powder In Packet 10 g PO SUTUTHSA@0900 Rx Instructions: on non dialysis days sevelamer carbonate 800 mg tablet 1,600 mg PO TIDWM insulin glargine [Lantus U-100 Insulin] 100 unit/mL Solution 7 unit SUBCUT BEDTIME Qty: 10 0RF Rx Instructions: Pt does not take at home, something placed on last Admit, new orders not given at home acetaminophen 325 mg Tablet 650 mg PO Q6H PRN (Reason: Fever Or Pain) amlodipine 5 mg tablet 5 mg PO BID atorvastatin 40 mg tablet 40 mg PO BEDTIME alprazolam 0.5 mg tablet 0.5 mg PO DAILY PRN (Reason: anxiety attack) alprazolam 2 mg tablet 2 mg PO BID insulin lispro [Humalog KwikPen Insulin] 100 unit/mL insulin pen See Protocol subcut TIDAC PRN (Reason: Blood Glucose) Protocol: Insulin Correction Scale Less than or equal to 110 ---- Give (units): 0 111 to 150 Give (units): 0 151 to 200 Give (units): 2 201 to 250 Give (units): 4 251 to 300 Give (units): 6 301 to 350 Give (units): 8 Greater than 350 Give (units): 10 Call MD if Blood Glucose > : 350 Rx Instructions: Pt does not take at home, something placed on last Admit, new orders not given at home dextroamphetamine-amphetamine 20 mg tablet 20 mg PO TID vitamin D3-vitamin K2 125 mcg (5,000 unit)-100 mcg Capsule 1 cap PO SUTUTHSA hydromorphone 4 mg tablet 4 mg PO Q3H PRN (Reason: Pain) Rx Instructions: Partial Fill upon patient request. Discontinued losartan 100 mg tablet 100 mg PO DAILY Discharge Orders: Discharge Order (Routine); Ordered 02/27/25 Ordered By: Denzel Villanueva Diet: Advance to usual diet Activity on Discharge: As tolerated Stand Alone Forms: Patient Portal Discharge page Print Language: Polish Care Plan Goals: recovery Health Concerns: pna, hyperkalemia Plan of Treatment: ceftin 5 days, stop losartan Assessment: see above
[2025-02-27 13:35] VITALS: BP 148/67; PULSE 74; RESP 16; TEMP 36.7; O2SAT 93
--- NOTE | 2025-02-27 13:36 | MHC.CLN ---
CONSULT PO INTAKE 100% X4 MEALS DIET RX: 2000DM -RECOMEND INCREASING DIET TO 2200DM TO PROMOTE WOUND HEALING PT WITH UNSTAGEABLE TO COCCYX WHICH INCREASES NUTRITION NEEDS RECOMMEND ADDING ENSURE MAX BID TO PROMOTE WOUND HEALING SUPP TO PROVIDE 300KCALS, 60G PROTEIN MONITOR PO INTAKE AND ENCOURAGE SUPPLEMENTS NURSING REPORTED PT HAS BEEN D/C TO FACILITY THIS AFTERNOON
--- NOTE | 2025-02-27 14:10 | MHC.CM.PN ---
Addendum entered by Diamond Flores 02/27/25 14:12: Patient's , Kyara, was involved in creating the discharge plan. 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 A bed offer from [facility] has been accepted. Patient will discharge to [facility] via BLS @ 4:30 pm.
[2025-02-27 14:54] LABS: Glucose, Whole Blood 131 mg/dL (60-115)
[2025-02-27 15:03] VITALS: BP 141/66; PULSE 78; RESP 16; TEMP 37.9; O2SAT 99
[2025-02-27 16:18] LABS: Glucose, Whole Blood 167 mg/dL (60-115)
--- NOTE | 2025-02-27 17:01 | PC.NURSE ---
this nurse telephoned calista mauricio to give report. office coordinator receptionist answered phone transfered call to nurses station. no answer from nurse station.this nurse will make second attempt.
== END 2025-02-27 16:30 | disposition skilled nursing facility (03) | DRG 871 ==
LOC: HO.ED 20:51 → HO.EDOVER 21:04 → HO.IMC 22:53
PROVIDERS: Admitting Provider Physician Assistant; Emergency Provider Emergency Medicine; PCP Family Medicine; Visit Provider Internal Medicine
DX: A41.9 Sepsis, unspecified organism (principal); G93.41 Metabolic encephalopathy; J18.9 Pneumonia, unspecified organism; J96.01 Acute respiratory failure with hypoxia; N18.6 End stage renal disease; I12.0 Hypertensive chronic kidney disease with stage 5 chronic kidney disease or end stage renal disease; J44.0 Chronic obstructive pulmonary disease with (acute) lower respiratory infection; G89.29 Other chronic pain; D63.1 Anemia in chronic kidney disease; E87.5 Hyperkalemia; E83.39 Other disorders of phosphorus metabolism; F39 Unspecified mood [affective] disorder; E03.9 Hypothyroidism, unspecified; E11.22 Type 2 diabetes mellitus with diabetic chronic kidney disease; Z99.2 Dependence on renal dialysis; Z91.158 Patient's noncompliance with renal dialysis for other reason; Z20.822 Contact with and (suspected) exposure to COVID-19; Z79.4 Long term (current) use of insulin; Z79.890 Hormone replacement therapy; Z79.899 Other long term (current) drug therapy
CPT/HCPCS: 0241U; 36415; 71045; 80048; 80076; 81001; 82803; 82947; 83605; 83735; 83880; 84145; 84484; 85025; 86140; 87040; 90999; 93005; 94640; 97162; 99285; J0131; J0613; J0692; J1171; J1644; J2919; J3371

== ENCOUNTER → 2025-02-24 18:10 | Outpatient (BNV) | payer MEDICARE, SELFPAY | PROVIDERS: Emergency Provider Emergency Medicine; Visit Provider Radiology Diagnostic Radiology | DX: R91.8 Other nonspecific abnormal finding of lung field (principal) | CPT/HCPCS: 71045 ==

== ENCOUNTER → 2025-02-24 18:10 | Outpatient (BNV) | payer MEDICARE, SELFPAY | PROVIDERS: Admitting Provider Physician Assistant; Emergency Provider Emergency Medicine; Visit Provider Internal Medicine | DX: R94.31 Abnormal electrocardiogram [ECG] [EKG] (principal); R06.02 Shortness of breath | CPT/HCPCS: 93010 ==

== ENCOUNTER → 2025-02-24 21:03 | Outpatient (BNV) | payer MEDICARE, SELFPAY | PROVIDERS: Admitting Provider Physician Assistant; Emergency Provider Emergency Medicine; Visit Provider Nurse Practitioner Family | DX: N18.6 End stage renal disease (principal); Z99.2 Dependence on renal dialysis | CPT/HCPCS: 90935 ==

== ENCOUNTER → 2025-02-24 21:03 | Outpatient (BNV) | payer MEDICARE, SELFPAY | PROVIDERS: Admitting Provider Physician Assistant; Emergency Provider Emergency Medicine; Visit Provider Internal Medicine | DX: A41.9 Sepsis, unspecified organism (principal); J96.01 Acute respiratory failure with hypoxia; J18.9 Pneumonia, unspecified organism; N18.6 End stage renal disease; Z99.2 Dependence on renal dialysis; E87.5 Hyperkalemia | CPT/HCPCS: 99223; 99232; 99233; 99499 ==

== ENCOUNTER → 2025-02-24 21:03 | Outpatient (BNV) | payer MEDICARE, SELFPAY | PROVIDERS: Admitting Provider Physician Assistant; Emergency Provider Emergency Medicine; Visit Provider Internal Medicine Critical Care Medicine | DX: N18.6 End stage renal disease (principal); Z99.2 Dependence on renal dialysis; E87.5 Hyperkalemia | CPT/HCPCS: 99223 ==

== ENCOUNTER 2025-02-27 06:32 | Outpatient (REF) | payer MEDICARE, SELFPAY | END 2025-02-27 06:33 | disposition home or self-care (01) | LOC: HO.MMNH1L 06:32 | PROVIDERS: Visit Provider Student in an Organized Health Care Education/Training Program | DX: Z13.89 Encounter for screening for other disorder (principal) ==

== ENCOUNTER 2025-02-28 05:10 | Outpatient (REF) | payer MEDICARE, SELFPAY ==
[2025-02-28 05:14] LABS: MANUAL DIFF FLAG NO
[2025-02-28 05:19] LABS: Basophils Absolute Auto 0.1 X10*3/uL (0.0-0.2); Basophils Percent Auto 0.8 % (0-2); Eosinophils Absolute Auto 0.9 X10*3/uL (0.0-0.4); Eosinophils Percent Auto 8.2 % (0-4); Hematocrit 25.9 % (42.0-52.0); Hemoglobin 8.9 g/dl (14.0-18.0); Imm Gran Abs Auto 0.04 X10*3/uL (0.00-0.03); Imm Gran Pct Auto 0.4 % (0.0-0.4); Lymphocytes Absolute Auto 2.2 X10*3/uL (1.2-4.9); Lymphocytes Percent Auto 19.2 % (20-40); Mean Corpuscular HGB Conc 34.4 g/dl (31.0-36.0); Mean Corpuscular Hemoglobin 31.8 pg (27.0-33.0); Mean Corpuscular Volume 92.5 fL (80.0-98.0); Mean Platelet Volume 9.6 fL (9.4-12.4); Monocytes Absolute Auto 1.4 X10*3/uL (0.1-1.2); Monocytes Percent Auto 11.9 % (2-11); Neutrophils Absolute Auto 6.8 x10*3/uL (2.0-8.3); Neutrophils Percent Auto 59.5 % (45-73); Platelet Count 336 X10*3/uL (160-400); Red Cell Distribution Width 15.6 % (11.0-16.0); White Blood Count 11.4 X10*3/uL (4.8-10.8)
[2025-02-28 05:51] LABS: Alanine Aminotransferase 6 U/L (0-40); Albumin Level 3.7 g/dL (3.5-5.0); Alkaline Phosphatase 69 U/L (39-117); Anion Gap 19 (12-20); Aspartate Amino Transferase 16 U/L (5-37); Bilirubin Total 0.6 mg/dL (0.0-1.0); Blood Urea Nitrogen 38 mg/dL (9-16); Calcium 8.8 mg/dL (8.4-10.2); Carbon Dioxide 26 mmol/L (22-29); Chloride 97 mmol/L (96-108); Estimated Glomerular Filt Rate 8; Glucose Random 100 mg/dL (60-115); Potassium 4.3 mmol/L (3.3-5.1); Sodium 138 mmol/L (135-145); Total Protein 6.6 g/dL (6.5-8.0)
== END 2025-02-28 05:11 | disposition home or self-care (01) ==
LOC: HO.MMNH1L 05:10
PROVIDERS: Visit Provider Nurse Practitioner Family
DX: E11.9 Type 2 diabetes mellitus without complications (principal)
CPT/HCPCS: 36415; 80053; 85025

== ENCOUNTER 2025-03-06 05:40 | Outpatient (REF) | payer MEDICARE, SELFPAY ==
--- OUTSIDE RECORDS SUMMARY | 2025-03-06 05:47 | XMS_ITS | Encounter Summary ---
Author Organization [facility], Address [address] [place] [address] Phone Care Team Providers Care Hood Maker Name Role Phone Matias Tan MD Primary Care Provider +1- [phone] Reason for Visit * Reason Comments Med Refill Encounter Details Date Type Department Care Team (Late st Contact Info) Description 12/28/2024 [facility]ill [facility] [address] [place] [phone] Sawyer Davis MD [address] [place] [address] Social History Tobacco Use Types [...] visit [facility] - [facility] [address] [place] [address] documented as of this encounter Procedures Procedure Name Priority Date/Time Associated Diagnosis Comments HEMATOLOGY Routine 12/28/2024 documented in this encounter Results * (ABNORMAL) HEMATOLOGY (12/28/2024) Hemoglobin 11.5(L) 14.0 - 18.0 g/dL [facility] Hemoglobin x 3 34.5(L) 42.0 - 54.0 % [facility] 12/28/2024 12/29/2024 9:1 7 AM EDT Narrative [facility] - 12/29/2024 Unless otherwise specified, test(s) performed at: [facility], [address] [place] [address] SURVEYOR INSTRUMENT ASSISTANT: Blane Ramsay M.D. For any questions, please call customer service at FREQUENCY:OTHER Resulting Agency Comment Specimen source: Blood us Denys Mueller MD LAB BLOOD ORDERABLES Final Re sult Fwd: Power See order comments or contact performing lab [facility] [place] documented in this encounter Visit Diagnoses Not on filedocumented in this encounter Care Teams Hood Maker Relationship Specialty Start Date End Date Matias Tan MD [facility] [address] [facility] [facility] [place] [phone] PCP - General Family Medicine 10/24/19 documented as of this encounter
--- OUTSIDE RECORDS SUMMARY | 2025-03-06 05:47 | XMS_ITS | Encounter Summary ---
Author Organization [facility] [place], Address [address] [place] [address] Phone Care Team Providers Care Ip Technology Transactions Attorney Name Role Phone Matias Tan MD Primary Care Provider +1- [phone] Reason for Visit * Reason Comments Med Refill Encounter Details Date Type Department Care Team (Late st Contact Info) Description 11/28/2022 Refill [facility] [place] [address] [place] [address] Guanako Mercer MD [address] [place] [address] Social History Tobacco Use Types [...] visit [facility] [place] - [facility] [address] [place] [address] documented as of this encounter Visit Diagnoses Not on filedocumented in this encounter Care Teams Ip Technology Transactions Attorney Relationship Specialty Start Date End Date Matias Tan MD [address] [facility] [email or web address]1 [place] [address] PCP - General Family Medicine 10/24/19 documented as of this encounter
--- OUTSIDE RECORDS SUMMARY | 2025-03-06 05:47 | XMS_ITS | Encounter Summary ---
Author Organization [facility] Address [address] [place] [address] Care Team Providers Care Residency Program Coordinator Name Role Phone Yulia Smart MD Primary Care Provider Encounter Details Date Type Department Care Team (Late st Contact Info) Description 01/13/2025 Lab Requisition [facility] - Main Lab [address] [facility] [place] [address] Yulia Smart MD [address] [place] [address] Encounter for other general examination Social History [...] K/mcL LAB HEMETOLOGY METHOD 01/13/2025 11:17 AM [facility] RBC 3.40(L) 4.50 - 5.50 M/mcL LAB HEMETOLOGY METHOD 01/13/2025 11:17 AM [facility] Hemoglobin 10.6(L) 13.5 - 17.5 g/dL LAB HEMETOLOGY METHOD 01/13/2025 11:17 AM [facility] Hematocrit 30.8(L) 42.0 - 54.0 % LAB HEMETOLOGY METHOD 01/13/2025 11:17 AM [facility] MCV 89.8 79.0 - 98.0 FL LAB HEMETOLOGY METHOD 01/13/2025 11:17 AM [facility] MCH 30.9 27.0 - 32.0 pcg LAB HEMETOLOGY METHOD 01/13/2025 11:17 AM [facility] MCHC 34.4 32.0 - 37.0 g/dL LAB HEMETOLOGY METHOD 01/13/2025 11:17 AM [facility] RDW 14.5 11.0 - 15.0 % LAB HEMETOLOGY METHOD 01/13/2025 11:17 AM [facility] Platelets 105(L) 130 - 400 K/mcL LAB HEMETOLOGY METHOD 01/13/2025 11:17 AM [facility] MPV 11.5(H) 7.0 - 11.0 FL LAB HEMETOLOGY METHOD 01/13/2025 11:17 AM [facility] NRBC 0.0 <1.0 % LAB HEMETOLOGY METHOD 01/13/2025 11:17 AM [facility] NRBC Absolute 0.00 <0.10 K/mcL LAB HEMETOLOGY METHOD 01/13/2025 11:17 AM [facility] Neutrophils Relative 49.1 % LAB HEMETOLOGY METHOD 01/13/2025 11:17 AM [facility] Lymphocytes Relative 31.3 % LAB HEMETOLOGY METHOD 01/13/2025 11:17 AM [facility] Monocytes Relative 13.0 % LAB HEMETOLOGY METHOD 01/13/2025 11:17 AM [facility] Eosinophils Relative 6.0 % LAB HEMETOLOGY METHOD 01/13/2025 11:17 AM [facility] Basophils Relative 0.4 % LAB HEMETOLOGY METHOD 01/13/2025 11:17 AM [facility] Immature Granulocytes Relative 0.2 % LAB HEMETOLOGY METHOD 01/13/2025 11:17 AM [facility] Neutrophils Absolute 2.38 1.50 - 7.00 K/mcL LAB HEMETOLOGY METHOD 01/13/2025 11:17 AM [facility] Lymphocytes Absolute 1.52 1.00 - 5.00 K/mcL LAB HEMETOLOGY METHOD 01/13/2025 11:17 AM [facility] Monocytes Absolute 0.63 0.20 - 1.00 K/mcL LAB HEMETOLOGY METHOD 01/13/2025 11:17 AM [facility] Eosinophils Absolute 0.29 0.00 - 0.50 K/mcL LAB HEMETOLOGY METHOD 01/13/2025 11:17 AM [facility] Basophils Absolute 0.02 0.00 - 0.20 K/mcL LAB HEMETOLOGY METHOD 01/13/2025 11:17 AM [facility] Immature Granulocytes Absolute 0.01 0.00 - 0.03 K/mcL LAB HEMETOLOGY METHOD 01/13/2025 11:17 AM [facility] Blood Venous blood specimen / Unknown Venipuncture / Unknown 01/13/2025 5:26 AM EDT 01/13/2025 10:00 AM EDT us Yulia Smart MD LAB BLOOD ORDERABLES Final Resu lt Performing Organization Address City/[facility]/ZIP Co de Phone Number [facility] [address] [place] [address], [place] [phone] * (ABNORMAL) Magnesium (01/13/2025 5:26 AM EDT) Magnesium 1.8(L) 1.9 - 2.6 mg/dL LAB CHEMISTRY METHOD 01/13/2025 12:11 PM EDT [facility] Blood Venous blood specimen / Unknown Venipuncture / Unknown 01/13/2025 5:26 AM EDT 01/13/2025 10:00 AM EDT us Yulia Smart MD LAB BLOOD ORDERABLES Final Resu lt Performing Organization Address [facility]/ZIP Ca de Phone Number [facility] [address] [place] [address], [place] [phone] * Hemoglobin A1c (01/13/2025 5:26 AM EDT) Hemoglobin A1C 5.6 <6.5 % LAB CHEMISTRY METHOD 01/13/2025 12:43 PM EDT [facility] Mean Bld Glu Estim. 114 mg/dL LAB CHEMISTRY METHOD 01/13/2025 12:43 PM EDT [facility] Blood Venous blood specimen / Unknown Venipuncture / Unknown 01/13/2025 5:26 AM EDT 01/13/2025 10:00 AM EDT us Yulia Smart MD LAB BLOOD ORDERABLES Final Resu lt Performing Organization Address City/[facility]/ZIP Co de Phone Number [facility] [address] [place] [address], [place] [phone] * (ABNORMAL) Comprehensive metabolic panel (01/13/2025 5:26 AM EDT) Sodium 129(L) 133 - 145 mmol/L LAB CHEMISTRY METHOD 01/13/2025 12:12 PM [facility] Potassium 3.6 3.5 - 5.5 mmol/L LAB CHEMISTRY METHOD 01/13/2025 12:12 PM [facility] Chloride 85(L) 96 - 110 mmol/L LAB CHEMISTRY METHOD 01/13/2025 12:12 PM [facility] CO2 28 21 - 32 mmol/L LAB CHEMISTRY METHOD 01/13/2025 12:12 PM [facility] Anion Gap 16(H) 3 - 11 LAB CHEMISTRY METHOD 01/13/2025 12:12 PM [facility] Glucose 90 70 - 100 mg/dL LAB CHEMISTRY METHOD 01/13/2025 12:12 PM [facility] BUN 77(H) 5 - 25 mg/dL LAB CHEMISTRY METHOD 01/13/2025 12:12 PM [facility] Creatinine 10.50(H) 0.70 - 1.30 mg/dL LAB CHEMISTRY METHOD 01/13/2025 12:12 PM [facility] eGFR 5(L) >=60 mL/min/1 .73m2 LAB CHEMISTRY METHOD 01/13/2025 12:12 PM [facility] Comment:Calculation based on the??Chronic Kidney Disease Epidemiology Collaboration (CKD-EPI) equation refit??without adjustment for race. BUN/Creatinine Ratio 7.3 LAB CHEMISTRY METHOD 01/13/2025 12:12 PM [facility] Calcium 7.2(L) 8.5 - 10.5 mg/dL LAB CHEMISTRY METHOD 01/13/2025 12:12 PM [facility] AST (SGOT) 76(H) 10 - 42 unit/L LAB CHEMISTRY METHOD 01/13/2025 12:12 PM EDT [facility] ALT (SGPT) 36 10 - 60 unit/L LAB CHEMISTRY METHOD 01/13/2025 12:12 PM EDT [facility] Alkaline Phosphatase 65 42 - 121 unit/L LAB CHEMISTRY METHOD 01/13/2025 12:12 PM EDT [facility] Total Protein 5.9(L) 6.0 - 8.0 g/dL LAB CHEMISTRY METHOD 01/13/2025 12:12 PM EDT [facility] Albumin 2.9(L) 3.2 - 5.0 g/dL LAB CHEMISTRY METHOD 01/13/2025 12:12 PM [facility] Total Bilirubin 0.4 0.0 - 1.4 mg/dL LAB CHEMISTRY METHOD 01/13/2025 12:12 PM EDT [facility] Blood Venous blood specimen / Unknown Venipuncture / Unknown 01/13/2025 5:26 AM EDT 01/13/2025 10:00 AM EDT us Yulia Smart MD LAB BLOOD ORDERABLES Final Resu lt [facility] [address] [place] [address], [place] [phone] documented in this encounter Visit Diagnoses Diagnosis Encounter for other general examination documented in this encounter Care Teams Residency Program Coordinator Relationship Specialty Start Date End Date Yulia Smart MD [address] [place] [address] PCP - General Hospitalist Medicine 01/13/25 documented as of this encounter
--- OUTSIDE RECORDS SUMMARY | 2025-03-06 05:47 | XMS_ITS | Encounter Summary ---
Author Organization [facility], Address [address] [place] [address] Phone Care Team Providers Care Director Content Marketing Name Role Phone Matias Tan MD Primary Care Provider +1- [phone] Reason for Visit * Reason Onset Date Comments Med Refill 07/01/2024 Encounter Details Date Type Department Care Team (Late Contact Info) Description 07/01/2024 Refill [facility], - Vascular Access Center [address] [place] [address] Dale Lema MD [address] [place] [address] Social History Tobacco Use Types Packs/Day Years [...] visit [facility] - [facility] [address] [place] [phone] documented as of this encounter Visit Diagnoses Not on filedocumented in this encounter Care Teams Director Content Marketing Relationship Specialty Start Date End Date Matias Tan MD [address] [facility] [place] [phone] PCP - General Family Medicine 10/24/19 documented as of this encounter
--- OUTSIDE RECORDS SUMMARY | 2025-03-06 05:47 | XMS_ITS | Encounter Summary ---
Author Organization [facility], Address [address] [place] [address] Phone Care Team Providers Care Fender Finisher Name Role Phone Matias Tan MD Primary Care Provider +1- [phone] Reason for Visit * Reason Comments Med Refill Encounter Details Date Type Department Care Team (Late st Contact Info) Description 05/08/2024 Refill [facility] [address] [place] [address] Gabriela Hernandez PA [...] visit [facility] [place], - Vascular Access Center [address] [place] [address] documented as of this encounter Visit Diagnoses Not on filedocumented in this encounter Care Teams Fender Finisher Relationship Specialty Start Date End Date Matias Tan MD [facility] [address] [place] [address] PCP - General Family Medicine 10/24/19 documented as of this encounter
--- OUTSIDE RECORDS SUMMARY | 2025-03-06 05:47 | XMS_ITS | Encounter Summary ---
Author Organization [facility] [place], Address [address] [place] [address] Phone Care Team Providers Care Decating Machine Operator Name Role Phone Matias Tan MD Primary Care Provider +1- [phone] Reason for Visit * Reason Onset Date Comments Med Refill 07/19/2022 Encounter Details Date Type Department Care Team (Late st Contact Info) Description 07/19/2022 Refill [facility] - Vascular Access Center [address] [place] [phone] Guanako Mercer MD [address] [place] [address] Social History Tobacco Use Types Packs/Day Years [...] visit [facility] - [facility] [address] [place] [phone] documented as of this encounter Visit Diagnoses Not on filedocumented in this encounter Care Teams Decating Machine Operator Relationship Specialty Start Date End Date Matias Tan MD [facility] [address] [facility] [place] [address] PCP - General Family Medicine 10/24/19 documented as of this encounter
--- OUTSIDE RECORDS SUMMARY | 2025-03-06 05:47 | XMS_ITS | Clinical Summary ---
Author Organization [facility], Address [address] [place] [address] Phone Care Team Providers Care Kick Press Setter Name Role Phone Matias Tan MD Primary Care Provider +1- [phone] Allergies Active Allergy Reactions Criticality Noted Date [...] HOURS NEEDED FOR PAIN 2 Active B Gpatqlv-C-Pqrqi Acid (Dialyvite 800) 0.8 MG tablet Take [...] Only [facility] [address] [address] Denys Mueller MD 01/31/2025 Treatment [facility] [place] [address] [place] [address] Guanako Mercer MD End stage renal disease; Dependence on renal dialysis 01/04/2025 Orders Only [facility] [address] [address] Denys Mueller MD 01/02/2025 Orders Only [facility] [address] [address] Denys Mueller MD 01/02/2025 Treatment [facility] [address] [place] [address] Tiffani Olson FNP-C End stage renal disease; Dependence on renal dialysis 12/28/2024 Treatment [facility] [address] [place] [address] Tiffani Olson FNP-C End stage renal disease; Dependence on renal dialysis 12/28/2024 Refill [facility] [address] [address] Sawyer Davis MD 12/26/2024 Orders Only [facility] [address] [address] Denys Mueller MD 12/23/2024 Treatment [facility] [place] [address] [place] [address] Tiffani Olson FNP-C End stage renal disease; Dependence on renal dialysis 12/21/2024 Orders Only [facility] [address] [address] Denys Mueller MD 12/19/2024 Orders Only [facility] [address] [address] Denys Mueller MD 12/16/2024 Treatment [facility] [address] [place] [address] Sawyer Davis MD End stage renal disease; Dependence on renal dialysis 12/14/2024 Orders Only [facility] [address] [address] Denys Mueller MD 12/14/2024 Treatment [facility] [address] [place] [address] Tiffani Olson FNP-C 12/13/2024 Treatment [facility] [address] [place] [address] Missy Izquierdo APRN 12/12/2024 Orders Only [facility] [address] [address] Denys Mueller MD 12/07/2024 Orders Only [facility] [address] [address] Denys Mueller MD 12/07/2024 Treatment [facility] [place] [address] [place] [address] Tiffani Olson FNP-C from Last 3 Months Immunizations Immunization Administration [...] visit [facility] [place], - V[facility] Access Center [address] [place] [address] Health Maintenance Due Date Last Done Comments Hepatitis B Vaccine (1 of 5 - Risk Dialysis 4-dose series) 1974 Colorectal Cancer Screening: Annual FOBT 2003 Colorectal Cancer Screening: Colonoscopy 2003 Colorectal Cancer Screening: Sigmoidoscopy 2003 Diabetes: Ophthalmology Exam 12/01/2019 Diabetes: Pedal Pulse Checked 12/01/2019 Diabetes: Sensory Foot Exam 12/01/2019 Diabetes: Visual Foot Exam 12/01/2019 Diabetes: Hemoglobin A1C 04/15/2025 025, 05/04/2024, 02/03/2024, Additional history exists Influenza Vaccine (Season Ended) [...] 12/07/2024 CHEMISTRY Routine 12/07/2024 HEMATOLOGY Routine 12/07/2024 SPECIAL CHEMISTRY Routine 05/04/2024 from Last 3 Months or Most Recently Relevant to Health Maintenance Results * HD KINETICS (02/03/2025) Only the most recent of2 resultswithin the time period is included. % Urea Reduction 77 65 - 80 % [facility] 02/03/2025 02/07/2025 8:5 8 AM EDT Narrative Resulting Agency Comment Specimen source: Plasma us Denys Mueller MD LAB BLOOD ORDERABLES Final Re sult [facility] See order comments or contact performing lab Unknown, [place] * POST CHEMISTRY (02/03/2025) Only the most recent of2 resultswithin the time period is included. BUN Post Dialysis 8 6 - 19 mg/dL [facility] 02/03/2025 02/07/2025 8:5 8 AM EDT Narrative [facility] - 02/07/2025 Unless otherwise specified, test(s) performed at: [facility], [address] [place] [id number] ANIMAL CAREGIVER: Blane Ramsay M.D. For any questions, please call customer service at FREQUENCY:MONTHLY Resulting Agency Comment Specimen source: Plasma Denys Mueller MD LAB BLOOD ORDERABLES Final Re sult Performing Organization Address [facility] de Phone Number [facility] See order comments or contact performing lab Unknown, [place] * IMMUNO CHEMISTRY (02/03/2025) Only the most recent of3 resultswithin the time period is included. Pathologist [facility] Hep B Surface Ag Negative Negative [facility] 02/03/2025 02/07/2025 8:4 7 AM EDT Narrative [facility] - 02/07/2025 Unless otherwise specified, test(s) performed at: [facility], [address] [place], [place] [id number] ANIMAL CAREGIVER: Blane Ramsay M.D. For any questions, please call customer service at FREQUENCY:MONTHLY Resulting Agency Comment Specimen source: Serum Denys Mueller MD LAB BLOOD ORDERABLES Final Re sult Performing Organization Address [facility] de Phone Number [facility] See order comments or contact performing lab Unknown, [place] * (ABNORMAL) HEMATOLOGY (02/03/2025) Only the most recent of6 resultswithin the time period is included. [facility] Hemoglobin 8.0(L) 14.0 - 18.0 g/dL [facility] Comment: Verified by repeat analysis. Hemoglobin x 3 24(L) 42.0 - 54.0 % [facility] 02/03/2025 02/07/2025 9:4 8 AM EDT Narrative [facility] - 02/07/2025 Unless otherwise specified, test(s) performed at: [facility], [address] [place] [address] ANIMAL CAREGIVER: Blane Ramsay M.D. For any questions, please call customer service at FREQUENCY:MONTHLY Resulting Agency Comment Specimen source: Blood Denys Mueller MD LAB BLOOD ORDERABLES Final Re sult Performing Organization Address [facility]/State/ZIP Co de Phone Number [facility] See order comments or contact performing lab Unknown, [place] * (ABNORMAL) [facility] Chemistry (02/03/2025) Only the most recent of11 [...] 02/07/2025 Unless otherwise specified, test(s) performed at: [facility], [address] [place] [id number] ANIMAL CAREGIVER: Blane Ramsay M.D. For any questions, please call customer service at FREQUENCY:MONTHLY Resulting Agency Comment Specimen source: Serum Denys Mueller MD LAB BLOOD ORDERABLES Final Re sult Performing Organization Address [facility]/ZIP Co de Phone Number [facility] See order comments or contact performing lab Unknown, [place] * [facility] Results (02/03/2025) Only the most recent of2 resultswithin the time period is included. eKt/V (Tattersall) 1.59 [facility] WSTDKT/V 0.8 Knowledge Center spKt/V (Daugirdas II) 1.82 [facility] 02/03/2025 02/03/2025 [facility] Ordering Provider LAB BLOOD ORDERABLES Final Result Performing Organization Address [facility] Co de Phone Number [facility] Contact Performing lab Unknown, [place] * SPECIAL CHEMISTRY (05/04/2024) Hemoglobin A1C 5.1 4.8 - 5.9 % [facility] 05/04/2024 05/05/2024 9:5 7 AM EDT Narrative APS [facility] - 05/05/2024 Unless otherwise specified, test(s) performed at: [facility], [address] [place] [address] ANIMAL CAREGIVER: Blane Ramsay M.D. For any questions, please call customer service at FREQUENCY:MONTHLY Resulting Agency Comment Specimen source: Blood Denys Mueller MD LAB BLOOD BANK TEST ORDERABLE S Final Result Performing Organization Address City/[facility]/ZIP Co de Phone Number [facility] See order comments or contact performing lab Unknown, [place] from Last 3 Months or Most Recently Relevant to Health Maintenance Insurance Medicare [facility] [place] [address] Medicare [facility] Care Teams Kick Press Setter Relationship Specialty Start Date End Date Matias Tan MD [facility] [address] [place] [address] PCP - General Family Medicine 10/24/19
--- OUTSIDE RECORDS SUMMARY | 2025-03-06 05:47 | XMS_ITS | Encounter Summary ---
Author Organization [facility] [place], Address [address] [place] [address] Phone Care Team Providers Care Java Web Services Developer Name Role Phone Matias Tan MD Primary Care Provider +1- [phone] Reason for Visit * Reason Comments Med Refill Encounter Details Date Type Department Care Team (Late st Contact Info) Description 09/25/2023 Refill [facility] [address] [place] [phone] Denys Mueller MD [address] [place] [address] Social History Tobacco Use Types [...] visit [facility] [place] [facility] - [facility] [address] [place] [address] documented as of this encounter Visit Diagnoses Not on filedocumented in this encounter Care Teams Java Web Services Developer Relationship Specialty Start Date End Date Matias Tan MD [address] [place] [address] PCP - General Family Medicine 10/24/19 documented as of this encounter
--- OUTSIDE RECORDS SUMMARY | 2025-03-06 05:47 | XMS_ITS | Encounter Summary ---
Author Organization [facility] Address [address] [place] [address] Care Team Providers Care Furnace Charging Machine Operator Name Role Phone Yulia Smart MD Primary Care Provider Encounter Details Date Type Department Care Team (Late st Contact Info) Description 01/14/2025 Lab Requisition [facility] - Main Lab [address] [place] [address] Yulia Smart MD [address] [place] [address] Encounter for other general examination Social History [...] LAB CHEMISTRY METHOD 01/14/2025 12:17 PM EDT [facility] ([facility] Blood Venous blood specimen / Unknown Venipuncture / Unknown 01/14/2025 5:58 AM EDT 01/14/2025 9:53 AM EDT us Yulia Smart MD LAB BLOOD ORDERABLES Final Resu lt [facility] ([facility] LAB [address] [place] [address], documented in this encounter Visit Diagnoses Diagnosis Encounter for other general examination documented in this encounter Care Teams Furnace Charging Machine Operator Relationship Specialty Start Date End Date Yulia Smart MD [address] [place] [address] PCP - General Hospitalist Medicine 01/13/25 documented as of this encounter
--- OUTSIDE RECORDS SUMMARY | 2025-03-06 05:47 | XMS_ITS | Encounter Summary ---
Author Organization [facility] [place], Address [address] [place] [address] Phone Care Team Providers Care Stopperer Assembler Name Role Phone Matias Tan MD Primary Care Provider +1- [phone] Reason for Visit * Reason Onset Date Comments Med Refill 12/20/2022 Encounter Details Date Type Department Care Team (Late st Contact Info) Description 12/20/2022 Refill [facility] - [facility] Center [address] [place] [address] Kb Sung MD Social History Tobacco Use [...] visit [facility] [place] - [facility] [address] [place] [address] documented as of this encounter Visit Diagnoses Not on filedocumented in this encounter Care Teams Stopperer Assembler Relationship Specialty Start Date End Date Matias Tan MD [facility] [address] [facility] [place] [address] PCP - General Family Medicine 10/24/19 documented as of this encounter
--- OUTSIDE RECORDS SUMMARY | 2025-03-06 05:47 | XMS_ITS | Encounter Summary ---
Author Organization [facility] [place], Address [address] [place] [address] Phone Care Team Providers Care Scale Model Maker Name Role Phone Matias Tan MD Primary Care Provider +1- [phone] Reason for Visit * Reason Comments Med Refill Encounter Details Date Type Department Care Team (Late st Contact Info) Description 09/24/2023 Refill [facility] [address] [place] [address] Denys Mueller MD [address] [facility] [place] [address] Social History Tobacco Use Types [...] visit [facility] [place] - [facility] [address] [place] [phone] documented as of this encounter Visit Diagnoses Not on filedocumented in this encounter Care Teams Scale Model Maker Relationship Specialty Start Date End Date Matias Tan MD [address] [place] [address] PCP - General Family Medicine 10/24/19 documented as of this encounter
--- OUTSIDE RECORDS SUMMARY | 2025-03-06 05:47 | XMS_ITS | Encounter Summary ---
Author Organization [facility] [place], Address [address] [place] [address] Phone Care Team Providers Care Baseball Club Manager Name Role Phone Matias Tan MD Primary Care Provider +1- [phone] Encounter Details Date Type Department Care Team (Late st Contact Info) Description 03/11/2023 Documentation Only [facility] [address] [place] [phone] Jose Luis Amezcua MD Social History Tobacco [...] visit [facility] Vascular Access Center [address] [place] [place] [address] documented as of this encounter Visit Diagnoses Not on filedocumented in this encounter Care Teams Baseball Club Manager Relationship Specialty Start Date End Date Matias Tan MD [address] [place] [address] PCP - General Family Medicine 10/24/19 documented as of this encounter
--- OUTSIDE RECORDS SUMMARY | 2025-03-06 05:47 | XMS_ITS | Encounter Summary ---
Author Organization [facility] [place], Address [address] [place] [address] Phone Care Team Providers Care Corporate Buyer Name Role Phone Matias Tan MD Primary Care Provider +1- [phone] Encounter Details Date Type Department Care Team (Late st Contact Info) Description 01/10/2022 Documentation Only [facility] [place], [address] [place] [address] [address] [place] [address] Social History Tobacco Use Types [...] visit [facility] [place] - [facility] Access Center [address] [place] [address] documented as of this encounter Visit Diagnoses Not on filedocumented in this encounter Care Teams Corporate Buyer Relationship Specialty Start Date End Date Matias Tan MD [address] [place] [address] PCP - General Family Medicine 10/24/19 documented as of this encounter
--- OUTSIDE RECORDS SUMMARY | 2025-03-06 05:47 | XMS_ITS | Encounter Summary ---
Author Organization [facility] [place], Address [address] [place] [address] Phone Care Team Providers Care Solid Glass Rod Dowel Machine Operator Name Role Phone Matias Tan MD Primary Care Provider +1- [phone] Reason for Visit * Reason Comments Med Refill Encounter Details Date Type Department Care Team (Late st Contact Info) Description 01/26/2023 Refill [facility] [address] [place] [phone] Denys Mueller MD [address] [place] [address] Social History Tobacco Use Types [...] visit [facility] [place] - [facility] Center [address] [place] [phone] documented as of this encounter Visit Diagnoses Not on filedocumented in this encounter Care Teams Solid Glass Rod Dowel Machine Operator Relationship Specialty Start Date End Date Matias Tan MD [address] [place] [address] PCP - General Family Medicine 10/24/19 documented as of this encounter
--- OUTSIDE RECORDS SUMMARY | 2025-03-06 05:47 | XMS_ITS | Encounter Summary ---
Author Organization [facility] [place], Address [address] [place] [address] Phone Care Team Providers Care Steward/Stewardess Bath Name Role Phone Matias Tan MD Primary Care Provider +1- [phone] Reason for Visit * Reason Onset Date Comments Med Refill 09/24/2022 Encounter Details Date Type Department Care Team (Late st Contact Info) Description 09/24/2022 Refill [facility] - Vascular Access Center [address] [place] [address] Ferdinand Monroe MD [address] [place] [phone] Social History Tobacco Use Types Packs/Day Years [...] visit [facility] [place] - [facility] Center [address] [place] [address] [place] [address] documented as of this encounter Visit Diagnoses Not on filedocumented in this encounter Care Teams Steward/Stewardess Bath Relationship Specialty Start Date End Date Matias Tan MD [address] [facility] [place] [address] PCP - General Family Medicine 10/24/19 documented as of this encounter
--- OUTSIDE RECORDS SUMMARY | 2025-03-06 05:47 | XMS_ITS | Encounter Summary ---
Author Organization [facility], Address [address] [place] [address] Phone Care Team Providers Care Methods Study Analyst Name Role Phone Matias Tan MD Primary Care Provider +1- [phone] Reason for Visit * Reason Comments Med Refill Encounter Details Date Type Department Care Team (Late st Contact Info) Description 09/24/2023 Refill [facility] [address] [facility] [place] [address] Gabriela Hernandez PA Social History Tobacco [...] visit [facility] [place], - Vascular Access Center [address] [place] [address] documented as of this encounter Visit Diagnoses Not on filedocumented in this encounter Care Teams Methods Study Analyst Relationship Specialty Start Date End Date Matias Tan MD [facility] [address] [place] [address] PCP - General Family Medicine 10/24/19 documented as of this encounter
--- OUTSIDE RECORDS SUMMARY | 2025-03-06 05:47 | XMS_ITS | Encounter Summary ---
Author Organization [facility] [place], Address [address] [place] [address] Phone Care Team Providers Care Electronic Technologist Name Role Phone Matias Tan MD Primary Care Provider +1- [phone] Reason for Visit * Reason Onset Date Comments Med Refill 06/24/2022 Encounter Details Date Type Department Care Team (Late st Contact Info) Description 06/24/2022 Refill [facility], [address] [place] [address] Guanako Mercer MD [address] [facility] [address] [place] [address] Social History Tobacco Use Types Packs/Day Years [...] visit [facility] [place] - [facility] Access Center [address] [place] [address] documented as of this encounter Visit Diagnoses Not on filedocumented in this encounter Care Teams Electronic Technologist Relationship Specialty Start Date End Date Matias Tan MD [address] [place] [address] PCP - General Family Medicine 10/24/19 documented as of this encounter
--- OUTSIDE RECORDS SUMMARY | 2025-03-06 05:47 | XMS_ITS | Encounter Summary ---
Author Organization [facility], Address [address] [place] [address] Phone Care Team Providers Care Oil Plant Operator Name Role Phone Matias Tan MD Primary Care Provider +1- [phone] Reason for Visit * Reason Comments Med Refill Encounter Details Date Type Department Care Team (Late st Contact Info) Description 01/26/2023 Refill [facility] [address] [place] [address] Gabriela Hernandez PA Social History Tobacco [...] [facility] [place], - V[facility] Access Center [address] [place] [address] documented as of this encounter Visit Diagnoses Not on filedocumented in this encounter Care Teams Oil Plant Operator Relationship Specialty Start Date End Date Matias Tan MD [facility] [address] [place] [address] PCP - General Family Medicine 10/24/19 documented as of this encounter
--- OUTSIDE RECORDS SUMMARY | 2025-03-06 05:47 | XMS_ITS | Encounter Summary ---
Author Organization [facility] [place], Address [address] [place] [address] Phone Care Team Providers Care Physician Advisor Name Role Phone Matias Tan MD Primary Care Provider +1- [phone] Reason for Visit * Reason Onset Date Comments Med Refill 12/23/2022 Encounter Details Date Type Department Care Team (Late st Contact Info) Description 12/23/2022 Refill [facility] - Vascular Access Center [address] [place] [address] Ferdinand Monroe MD [address] [place] [address] Social History Tobacco Use Types Packs/Day Years [...] visit [facility] [place] - V[facility] Access Center [address] [place] [address] [place] [address] documented as of this encounter Visit Diagnoses Not on filedocumented in this encounter Care Teams Physician Advisor Relationship Specialty Start Date End Date Matias Tan MD [address] [facility] [place] [address] PCP - General Family Medicine 10/24/19 documented as of this encounter
--- OUTSIDE RECORDS SUMMARY | 2025-03-06 05:47 | XMS_ITS | Clinical Summary ---
Author Organization [address] [facility] Address [address] [place] [address] Phone Care Team Providers Care Tractor Distributor Name Role Phone Yulia Smart MD Primary Care Provider [phone] Encounters Date Type Department Care Team Description 01/18/2025 Lab Requisition [facility] Lab [address] [place] [phone] Yulia Smart MD Encounter for other general examination 01/14/2025 Lab Requisition [facility] Lab [address] [place] [address] Yulia Smart MD Encounter for other general examination 01/13/2025 Lab Requisition [facility] Lab [address] [place] [phone] Yulia Smart MD Encounter for other general [...] LAB HEMETOLOGY METHOD 01/18/2025 7:10 AM EDT [facility] RBC 3.10(L) 4.50 - 5.50 M/mcL LAB HEMETOLOGY METHOD 01/18/2025 7:10 AM EDT [facility] Hemoglobin 9.5(L) 13.5 - 17.5 g/dL LAB HEMETOLOGY METHOD 01/18/2025 7:10 AM EDT [facility] Hematocrit 27.0(L) 42.0 - 54.0 % LAB HEMETOLOGY METHOD 01/18/2025 7:10 AM [facility] MCV 87.1 79.0 - 98.0 FL LAB HEMETOLOGY METHOD 01/18/2025 7:10 AM [facility] MCH 30.6 27.0 - 32.0 pcg LAB HEMETOLOGY METHOD 01/18/2025 7:10 AM [facility] MCHC 35.2 32.0 - 37.0 g/dL LAB HEMETOLOGY METHOD 01/18/2025 7:10 AM [facility] RDW 14.3 11.0 - 15.0 % LAB HEMETOLOGY METHOD 01/18/2025 7:10 AM [facility] Platelets 251 130 - 400 K/mcL LAB HEMETOLOGY METHOD 01/18/2025 7:10 AM [facility] MPV 11.1(H) 7.0 - 11.0 FL LAB HEMETOLOGY METHOD 01/18/2025 7:10 AM [facility] NRBC 0.0 <1.0 % LAB HEMETOLOGY METHOD 01/18/2025 7:10 AM [facility] NRBC Absolute 0.00 <0.10 K/mcL LAB HEMETOLOGY METHOD 01/18/2025 7:10 AM [facility] Neutrophils Relative 77.1 % LAB HEMETOLOGY METHOD 01/18/2025 7:10 AM [facility] Lymphocytes Relative 8.3 % LAB HEMETOLOGY METHOD 01/18/2025 7:10 AM [facility] Monocytes Relative 13.5 % LAB HEMETOLOGY METHOD 01/18/2025 7:10 AM [facility] Eosinophils Relative 0.0 % LAB HEMETOLOGY METHOD 01/18/2025 7:10 AM EDT [facility] Basophils Relative 0.0 % LAB HEMETOLOGY METHOD 01/18/2025 7:10 AM EDT [facility] Immature Granulocytes Relative 1.1 % LAB HEMETOLOGY METHOD 01/18/2025 7:10 AM EDT [facility] Neutrophils Absolute 7.61(H) 1.50 - 7.00 K/mcL LAB HEMETOLOGY METHOD 01/18/2025 7:10 AM EDT [facility] Lymphocytes Absolute 0.82(L) 1.00 - 5.00 K/mcL LAB HEMETOLOGY METHOD 01/18/2025 7:10 AM EDT [facility] Monocytes Absolute 1.33(H) 0.20 - 1.00 K/mcL LAB HEMETOLOGY METHOD 01/18/2025 7:10 AM [facility] Eosinophils Absolute 0.00 0.00 - 0.50 K/mcL LAB HEMETOLOGY METHOD 01/18/2025 7:10 AM [facility] Basophils Absolute 0.00 0.00 - 0.20 K/mcL LAB HEMETOLOGY METHOD 01/18/2025 7:10 AM [facility] Immature Granulocytes Absolute 0.11(H) 0.00 - 0.03 K/mcL LAB HEMETOLOGY METHOD 01/18/2025 7:10 AM [facility] Blood Venous blood specimen / Unknown Venipuncture / Unknown 01/18/2025 5:06 AM EDT 01/18/2025 6:20 AM EDT us Yulia Smart MD LAB BLOOD ORDERABLES Final Resu lt [facility] [address] [place] [address], * Thyroid stimulating hormone (01/18/2025 5:06 AM EDT) TSH 1.94 0.40 - 4.00 mcIU/mL LAB CHEMISTRY METHOD 01/18/2025 9:08 AM EDT [facility] Blood Venous blood specimen / Unknown Venipuncture / Unknown 01/18/2025 5:06 AM EDT 01/18/2025 6:20 AM EDT us Yulia Smart MD LAB BLOOD ORDERABLES Final Resu lt Performing Organization Address [facility] de Phone Number [facility] [address] [place] [address], [place] [phone] * (ABNORMAL) Vitamin B12 (01/18/2025 5:06 AM EDT) [facility] Vitamin B-12 1,241(H) 250 - 900 pcg/mL LAB CHEMISTRY METHOD 01/18/2025 7:36 AM EDT [facility] Blood Venous blood specimen / Unknown Venipuncture / Unknown 01/18/2025 5:06 AM EDT 01/18/2025 6:20 AM EDT us Yulia Smart MD LAB BLOOD ORDERABLES Final Resu lt Performing Organization Address [facility] de Phone Number [facility] [address] [place] [address], [place] [phone] * Ammonia (01/18/2025 5:06 AM EDT) [facility] Ammonia 28 11 - 35 mcmol/L LAB CHEMISTRY METHOD 01/18/2025 6:53 AM EDT [facility] Blood Venous blood specimen / Unknown Venipuncture / Unknown 01/18/2025 5:06 AM EDT 01/18/2025 6:20 AM EDT us Yulia Smart MD LAB BLOOD ORDERABLES Final Resu lt Performing Organization Address City/[facility]/ZIP Co de Phone Number [facility] [address] [place] [address], * (ABNORMAL) Comprehensive metabolic panel (01/18/2025 5:06 AM EDT) Only the most recent of2 resultswithin the time period is included. Sodium 123(L) 133 - 145 mmol/L LAB CHEMISTRY METHOD 01/18/2025 7:56 AM EDT [facility] Potassium 5.2 3.5 - 5.5 mmol/L LAB CHEMISTRY [facility] Chloride 89(L) 96 - 110 mmol/L LAB CHEMISTRY METHOD 01/18/2025 7:56 AM [facility] CO2 21 21 - 32 mmol/L LAB CHEMISTRY METHOD 01/18/2025 7:56 AM [facility] Anion Gap 13(H) 3 - 11 LAB CHEMISTRY METHOD 01/18/2025 7:56 AM [facility] Glucose 174(H) 70 - 100 mg/dL LAB CHEMISTRY METHOD 01/18/2025 7:56 AM [facility] BUN 96(H) 5 - 25 mg/dL LAB CHEMISTRY METHOD 01/18/2025 7:56 AM [facility] Creatinine 9.44(H) 0.70 - 1.30 mg/dL LAB CHEMISTRY METHOD 01/18/2025 7:56 AM [facility] eGFR 5(L) >=60 mL/min/1. 73m2 LAB CHEMISTRY METHOD 01/18/2025 7:56 AM [facility] Comment:Calculation based on the??Chronic Kidney Disease Epidemiology Collaboration (CKD-EPI) equation refit??without adjustment for race. BUN/Creatinine Ratio 10.2 LAB CHEMISTRY METHOD 01/18/2025 7:56 AM [facility] Calcium 7.8(L) 8.5 - 10.5 mg/dL LAB CHEMISTRY METHOD 01/18/2025 7:56 AM EDT [facility] AST (SGOT) 13 10 - 42 unit/L LAB CHEMISTRY METHOD 01/18/2025 7:56 AM [facility] Comment:Results verified by repeat testing ALT (SGPT) 21 10 - 60 unit/L LAB CHEMISTRY METHOD 01/18/2025 7:56 AM EDT [facility] Alkaline Phosphatase 52 42 - 121 unit/L LAB CHEMISTRY [facility]25 7[facility] Total Protein 5.3(L) 6.0 - 8.0 g/dL LAB CHEMISTRY METHOD 01/18/2025 7:56 AM [facility] Albumin 2.6(L) 3.2 - 5.0 g/dL LAB CHEMISTRY METHOD 01/18/2025 7:56 AM [facility] Total Bilirubin 1.0 0.0 - 1.4 mg/dL LAB CHEMISTRY METHOD 01/18/2025 7:56 AM [facility] Comment:Results verified by repeat testing Blood Venous blood specimen / Unknown Venipuncture / Unknown 01/18/2025 5:06 AM EDT 01/18/2025 6:20 AM EDT us Yulia Smart MD LAB BLOOD ORDERABLES Final Resu lt [facility] [address] [place] [address], * (ABNORMAL) Phosphorus (01/14/2025 5:58 AM EDT) Phosphorus 5.6(H) 2.5 - 4.5 mg/dL LAB CHEMISTRY METHOD 01/14/2025 12:17 PM EDT [facility] Blood Venous blood specimen / Unknown Venipuncture / Unknown 01/14/2025 5:58 AM EDT 01/14/2025 9:53 AM EDT us Yulia Smart MD LAB BLOOD ORDERABLES Final Resu lt Performing Organization Address City/[facility]/ZIP Co de Phone Number [facility] [address] [place] [address], [place] [phone] * (ABNORMAL) Magnesium (01/13/2025 5:26 AM EDT) [facility] Magnesium 1.8(L) 1.9 - 2.6 mg/dL LAB CHEMISTRY METHOD 01/13/2025 12:11 PM EDT [facility] Blood Venous blood specimen / Unknown Venipuncture / Unknown 01/13/2025 5:26 AM EDT 01/13/2025 10:00 AM EDT us Yulia Smart MD LAB BLOOD ORDERABLES Final Resu lt Performing Organization Address [facility] Co de Phone Number [facility] [address] [place] [address], [place] [phone] * Hemoglobin A1c (01/13/2025 5:26 AM EDT) [facility] Hemoglobin A1C 5.6 <6.5 % LAB CHEMISTRY METHOD 01/13/2025 12:43 PM EDT [facility] Mean Bld Glu Estim. 114 mg/dL LAB CHEMISTRY METHOD 01/13/2025 12:43 PM EDT [facility] Blood Venous blood specimen / Unknown Venipuncture / Unknown 01/13/2025 5:26 AM EDT 01/13/2025 10:00 AM EDT us Yulia Smart MD LAB BLOOD ORDERABLES Final Resu lt Performing Organization Address City/[facility]/ZIP Co de Phone Number [facility] [address] [place] [address], [place] [phone] from Last 3 Months Insurance [facility] [place] [address] MEDICARE Care Teams Tractor Distributor Relationship Specialty Start Date End Date Yulia Smart MD [address] [place] [address] PCP - General Hospitalist Medicine 01/13/25
--- OUTSIDE RECORDS SUMMARY | 2025-03-06 05:47 | XMS_ITS | Encounter Summary ---
Author Organization [facility] [place], Address [address] [place] [address] Phone Care Team Providers Care Laundry Marker Supervisor Name Role Phone Matias Tan MD Primary Care Provider +1- [phone] Encounter Details Date Type Department Care Team (Late st Contact Info) Description 02/02/2024 Documentation Only [facility] [place], [address] [place] [phone] [place] Yus[address] [place] [address] Social History Tobacco Use Types [...] visit [facility] [place] - V[facility] Access Center [address] [place] [phone] documented as of this encounter Visit Diagnoses Not on filedocumented in this encounter Care Teams Laundry Marker Supervisor Relationship Specialty Start Date End Date Matias Tan MD [address] [place] [address] PCP - General Family Medicine 10/24/19 documented as of this encounter
--- OUTSIDE RECORDS SUMMARY | 2025-03-06 05:47 | XMS_ITS | Encounter Summary ---
Author Organization [facility] [place], Address [address] [place] [address] Phone Care Team Providers Care Marketing Programs Manager Name Role Phone Matias Tan MD Primary Care Provider +1- [phone] Reason for Visit * Reason Onset Date Comments Med Refill 12/20/2022 Encounter Details Date Type Department Care Team (Late st Contact Info) Description 12/20/2022 Refill [facility] - [facility] [address] [place] [address] Kb Sung MD Social History Tobacco Use [...] visit [facility] - [facility] [address] [place] [address] documented as of this encounter Visit Diagnoses Not on filedocumented in this encounter Care Teams Marketing Programs Manager Relationship Specialty Start Date End Date Matias Tan MD [facility] [address] [facility] [place] [address] PCP - General Family Medicine 10/24/19 documented as of this encounter
--- OUTSIDE RECORDS SUMMARY | 2025-03-06 05:47 | XMS_ITS | Encounter Summary ---
Author Organization [facility] [place], Address [address] [place] [address] Phone Care Team Providers Care Crackling Press Operator Name Role Phone Matias Tan MD Primary Care Provider +1- [phone] Reason for Visit * Reason Onset Date Comments Med Refill 06/20/2022 Encounter Details Date Type Department Care Team (Late st Contact Info) Description 06/20/2022 Refill [facility], [address] [place] [phone] Guanako Mercer MD [address] [facility] [place] [phone] Social History Tobacco Use Types Packs/Day Years [...] [facility] [place] - [facility] [address] [place] [address] documented as of this encounter Visit Diagnoses Not on filedocumented in this encounter Care Teams Crackling Press Operator Relationship Specialty Start Date End Date Matias Tan MD [address] [facility] [place] [address] PCP - General Family Medicine 10/24/19 documented as of this encounter
--- OUTSIDE RECORDS SUMMARY | 2025-03-06 05:47 | XMS_ITS | Encounter Summary ---
Author Organization [facility] Address [address] [place] [address] Phone Care Team Providers Care Bottoming Room Inspector Name Role Phone Matias Tan MD Primary Care Provider +1- [phone] Reason for Visit * Reason Comments Med Refill Encounter Details Date Type Department Care Team (Late st Contact Info) Description 06/24/2022 Refill [facility] [place], [address] [facility] [place] [phone] Guanako Mercer MD [address] [facility] [place] [phone] Social History Tobacco Use Types Packs/Day Years [...] [facility] [place] - [facility] [address] [place] [phone] documented as of this encounter Visit Diagnoses Not on filedocumented in this encounter Care Teams Bottoming Room Inspector Relationship Specialty Start Date End Date Matias Tan MD [address] [place] [phone] PCP - General Family Medicine 10/24/19 documented as of this encounter
--- OUTSIDE RECORDS SUMMARY | 2025-03-06 05:47 | XMS_ITS | Encounter Summary ---
Author Organization [facility] [place], Address [address] [place] [address] Phone Care Team Providers Care Disc Inspector Name Role Phone Matias Tan MD Primary Care Provider +1- [phone] Reason for Visit * Reason Comments Med Refill Encounter Details Date Type Department Care Team (Late st Contact Info) Description 07/17/2022 Refill [facility] - Vascular Access Center [address] [place] [phone] Guanako Mercer MD [address] [place] [phone] Social History Tobacco Use Types Packs/Day Years [...] visit [facility] [place] [address] [place] [phone] documented as of this encounter Visit Diagnoses Not on filedocumented in this encounter Care Teams Disc Inspector Relationship Specialty Start Date End Date Matias Tan MD [address] [place] [address] PCP - General Family Medicine 10/24/19 documented as of this encounter
--- OUTSIDE RECORDS SUMMARY | 2025-03-06 05:47 | XMS_ITS | Encounter Summary ---
Author Organization [facility] Address [address] [place] [address] Care Team Providers Care Computer Support Technician Name Role Phone Yulia Smart MD Primary Care Provider Encounter Details Date Type Department Care Team (Late st Contact Info) Description 01/18/2025 Lab Requisition [facility] - Main Lab [address] [facility] [place] [address] Yulia Smart MD [address] [place] [address] Encounter for other general examination Social History [...] K/mcL LAB HEMETOLOGY METHOD 01/18/2025 7:10 AM [facility] RBC 3.10(L) 4.50 - 5.50 M/mcL LAB HEMETOLOGY METHOD 01/18/2025 7:10 AM [facility] Hemoglobin 9.5(L) 13.5 - 17.5 g/dL LAB HEMETOLOGY METHOD 01/18/2025 7:10 AM [facility] Hematocrit 27.0(L) 42.0 - 54.0 % LAB HEMETOLOGY METHOD 01/18/2025 7:10 AM [facility] MCV 87.1 79.0 - 98.0 FL LAB HEMETOLOGY METHOD 01/18/2025 7:10 AM [facility] MCH 30.6 27.0 - 32.0 pcg LAB HEMETOLOGY METHOD 01/18/2025 7:10 AM [facility] MCHC 35.2 32.0 - 37.0 g/dL LAB HEMETOLOGY METHOD 01/18/2025 7:10 AM [facility] RDW 14.3 11.0 - 15.0 % LAB HEMETOLOGY METHOD 01/18/2025 7:10 AM [facility] Platelets 251 130 - 400 K/mcL LAB HEMETOLOGY METHOD 01/18/2025 7:10 AM [facility] MPV 11.1(H) 7.0 - 11.0 FL LAB HEMETOLOGY METHOD 01/18/2025 7:10 AM [facility] NRBC 0.0 <1.0 % LAB HEMETOLOGY METHOD 01/18/2025 7:10 AM [facility] NRBC Absolute 0.00 <0.10 K/mcL LAB HEMETOLOGY METHOD 01/18/2025 7:10 AM EDT [facility] Neutrophils Relative 77.1 % LAB HEMETOLOGY METHOD 01/18/2025 7:10 AM [facility] Lymphocytes Relative 8.3 % LAB HEMETOLOGY METHOD 01/18/2025 7:10 AM [facility] Monocytes Relative 13.5 % LAB HEMETOLOGY METHOD 01/18/2025 7:10 AM [facility] Eosinophils Relative 0.0 % LAB HEMETOLOGY METHOD 01/18/2025 7:10 AM [facility] Basophils Relative 0.0 % LAB HEMETOLOGY METHOD 01/18/2025 7:10 AM [facility] Immature Granulocytes Relative 1.1 % LAB HEMETOLOGY METHOD 01/18/2025 7:10 AM [facility] Neutrophils Absolute 7.61(H) 1.50 - 7.00 K/mcL LAB HEMETOLOGY METHOD 01/18/2025 7:10 AM [facility] Lymphocytes Absolute 0.82(L) 1.00 - 5.00 K/mcL LAB HEMETOLOGY METHOD 01/18/2025 7:10 AM [facility] Monocytes Absolute 1.33(H) 0.20 - 1.00 K/mcL LAB HEMETOLOGY METHOD 01/18/2025 7:10 AM [facility] Eosinophils Absolute 0.00 0.00 - 0.50 K/mcL LAB HEMETOLOGY METHOD 01/18/2025 7:10 AM [facility] Basophils Absolute 0.00 0.00 - 0.20 K/mcL LAB HEMETOLOGY METHOD 01/18/2025 7:10 AM [facility] Immature Granulocytes Absolute 0.11(H) 0.00 - 0.03 K/mcL LAB HEMETOLOGY METHOD 01/18/2025 7:10 AM EDT [facility] Blood Venous blood specimen / Unknown Venipuncture / Unknown 01/18/2025 5:06 AM EDT 01/18/2025 6:20 AM EDT us Yulia Smart MD LAB BLOOD ORDERABLES Final Resu lt Performing Organization Address City/[facility]/ZIP Co de Phone Number [facility] [address] [place] [address], [place] [phone] * Ammonia (01/18/2025 5:06 AM EDT) Ammonia 28 11 - 35 mcmol/L LAB CHEMISTRY METHOD 01/18/2025 6:53 AM EDT [facility] Blood Venous blood specimen / Unknown Venipuncture / Unknown 01/18/2025 5:06 AM EDT 01/18/2025 6:20 AM EDT us Yulia Smart MD LAB BLOOD ORDERABLES Final Resu lt Performing Organization Address [facility] Co de Phone Number [facility] [address] [place] [address], [place] [phone] * Thyroid stimulating hormone (01/18/2025 5:06 AM EDT) TSH 1.94 0.40 - 4.00 mcIU/mL LAB CHEMISTRY METHOD 01/18/2025 9:08 AM EDT [facility] Blood Venous blood specimen / Unknown Venipuncture / Unknown 01/18/2025 5:06 AM EDT 01/18/2025 6:20 AM EDT us Yulia Smart MD LAB BLOOD ORDERABLES Final Resu lt Performing Organization Address City/[facility]/ZIP Co de Phone Number [facility] [address] [place] [address], [place] [phone] * (ABNORMAL) Vitamin B12 (01/18/2025 5:06 AM EDT) [facility] Vitamin B-12 1,241(H) 250 - 900 pcg/mL LAB CHEMISTRY METHOD 01/18/2025 7:36 AM EDT [facility] Blood Venous blood specimen / Unknown Venipuncture / Unknown 01/18/2025 5:06 AM EDT 01/18/2025 6:20 AM EDT us Yulia Smart MD LAB BLOOD ORDERABLES Final Resu lt [facility] [address] [place] [address], [place] [phone] * (ABNORMAL) Comprehensive metabolic panel (01/18/2025 5:06 AM EDT) [facility] Sodium 123(L) 133 - 145 mmol/L LAB CHEMISTRY METHOD 01/18/2025 7:56 AM [facility] Potassium 5.2 3.5 - 5.5 mmol/L LAB CHEMISTRY METHOD 01/18/2025 7:56 AM [facility] Chloride 89(L) 96 - 110 mmol/L LAB CHEMISTRY METHOD 01/18/2025 7:56 AM [facility] CO2 21 21 - 32 mmol/L LAB CHEMISTRY METHOD 01/18/2025 7:56 AM [facility] Anion Gap 13(H) 3 - 11 LAB CHEMISTRY METHOD 01/18/2025 7:56 AM [facility] Glucose 174(H) 70 - 100 mg/dL LAB CHEMISTRY METHOD 01/18/2025 7:56 AM [facility] BUN 96(H) 5 - 25 mg/dL LAB CHEMISTRY METHOD 01/18/2025 7:56 AM [facility] Creatinine 9.44(H) 0.70 - 1.30 mg/dL LAB CHEMISTRY METHOD 01/18/2025 7:56 AM [facility] eGFR 5(L) >=60 mL/min/1. 73m2 LAB CHEMISTRY METHOD 01/18/2025 7:56 AM [facility] Comment:Calculation based on the??Chronic Kidney Disease Epidemiology Collaboration (CKD-EPI) equation refit??without adjustment for race. BUN/Creatinine Ratio 10.2 LAB CHEMISTRY METHOD 01/18/2025 7:56 AM [facility] Calcium 7.8(L) 8.5 - 10.5 mg/dL LAB CHEMISTRY METHOD 01/18/2025 7:56 AM [facility] AST (SGOT) 13 10 - 42 unit/L LAB CHEMISTRY METHOD 01/18/2025 7:56 AM [facility] Comment:Results verified by repeat testing ALT (SGPT) 21 10 - 60 unit/L LAB CHEMISTRY METHOD 01/18/2025 7:56 AM [facility] Alkaline Phosphatase 52 42 - 121 unit/L LAB CHEMISTRY METHOD 01/18/2025 7:56 AM [facility] Total Protein 5.3(L) 6.0 - 8.0 g/dL LAB CHEMISTRY METHOD 01/18/2025 7:56 AM [facility] Albumin 2.6(L) 3.2 - 5.0 g/dL LAB CHEMISTRY METHOD 01/18/2025 7:56 AM [facility] Total Bilirubin 1.0 0.0 - 1.4 mg/dL LAB CHEMISTRY METHOD 01/18/2025 7:56 AM [facility] Comment:Results verified by repeat testing Blood Venous blood specimen / Unknown Venipuncture / Unknown 01/18/2025 5:06 AM EDT 01/18/2025 6:20 AM EDT us Rami A Ashkar MD LAB BLOOD ORDERABLES Final Resu lt [facility] [address] [place] [address], documented in this encounter Visit Diagnoses Diagnosis Encounter for other general examination documented in this encounter Care Teams Computer Support Technician Relationship Specialty Start Date End Date Yulia Smart MD [address] [place] [id number] PCP - General Hospitalist Medicine 01/13/25 documented as of this encounter
--- OUTSIDE RECORDS SUMMARY | 2025-03-06 05:47 | XMS_ITS | Encounter Summary ---
Author Organization [facility] [place], Address [address] [place] [address] Phone Care Team Providers Care Chief Lifestyle Officer Name Role Phone Matias Tan MD Primary Care Provider +1- [phone] Reason for Visit * Reason Onset Date Comments Med Refill 06/08/2022 Encounter Details Date Type Department Care Team (Late st Contact Info) Description 06/08/2022 Refill [facility], [address] [place] [phone] Guanako Mercer MD [address] [facility] [place] [phone] Social History Tobacco Use Types Packs/Day Years [...] visit [facility] [address] [place] [address] documented as of this encounter Visit Diagnoses Not on filedocumented in this encounter Care Teams Chief Lifestyle Officer Relationship Specialty Start Date End Date Matias Tan MD [address] [facility] [place] [address] PCP - General Family Medicine 10/24/19 documented as of this encounter
[2025-03-06 06:15] LABS: Basophils Absolute Auto 0.1 X10*3/uL (0.0-0.2); Basophils Percent Auto 0.6 % (0-2); Eosinophils Absolute Auto 0.3 X10*3/uL (0.0-0.4); Eosinophils Percent Auto 1.9 % (0-4); Hematocrit 25.8 % (42.0-52.0); Hemoglobin 8.6 g/dl (14.0-18.0); Imm Gran Abs Auto 0.09 X10*3/uL (0.00-0.03); Imm Gran Pct Auto 0.5 % (0.0-0.4); Lymphocytes Absolute Auto 1.1 X10*3/uL (1.2-4.9); Lymphocytes Percent Auto 6.6 % (20-40); MANUAL DIFF FLAG SCAN; Mean Corpuscular HGB Conc 33.3 g/dl (31.0-36.0); Mean Corpuscular Hemoglobin 31.7 pg (27.0-33.0); Mean Corpuscular Volume 95.2 fL (80.0-98.0); Mean Platelet Volume 10.3 fL (9.4-12.4); Monocytes Absolute Auto 1.8 X10*3/uL (0.1-1.2); Monocytes Percent Auto 10.9 % (2-11); Neutrophils Absolute Auto 13.4 x10*3/uL (2.0-8.3); Neutrophils Percent Auto 79.5 % (45-73); Platelet Count 259 X10*3/uL (160-400); Red Blood Count 2.71 X10*6/uL (4.60-5.80); Red Cell Distribution Width 15.4 % (11.0-16.0); SCAN SMEAR FLAG 1; White Blood Count 16.9 X10*3/uL (4.8-10.8)
[2025-03-06 06:45] LABS: Anion Gap 19 (12-20); Blood Urea Nitrogen 39 mg/dL (9-16); Calcium 8.6 mg/dL (8.4-10.2); Carbon Dioxide 24 mmol/L (22-29); Chloride 96 mmol/L (96-108); Estimated Glomerular Filt Rate 6; Glucose Random 78 mg/dL (60-115); Potassium 4.6 mmol/L (3.3-5.1); Sodium 134 mmol/L (135-145)
[2025-03-06 07:35] LABS: SLIDE REVIEW VERIFIED
== END 2025-03-06 05:41 | disposition home or self-care (01) ==
LOC: HO.MMNH1L 05:40
PROVIDERS: Visit Provider Nurse Practitioner Family
DX: Z13.89 Encounter for screening for other disorder (principal)
CPT/HCPCS: 36415; 80048; 85025

== ENCOUNTER 2025-03-07 16:55 | Inpatient (IN) | payer MEDICARE, SELFPAY ==
[2025-03-07] VITALS (12 sets, daily range): BP systolic 111–161; BP diastolic 60–82; PULSE 72–119; RESP 17–35; TEMP 33–37.7; O2SAT 83–100; BMI 26.0
--- NOTE | 2025-03-07 | ECG_ITS ---
Test Reason : ROSC Blood Pressure : */* mmHG Vent. Rate : 163 BPM Atrial Rate : * BPM P-R Int : * ms QRS Dur : 162 ms QT Int : 294 ms P-R-T Axes : * 62 39 degrees QTcB Int : 484 ms Wide QRS tachycardia Right bundle branch block Abnormal ECG When compared with ECG of 07-Mar-2025 17:14, Wide QRS tachycardia has replaced Sinus rhythm Vent. rate has increased by 82 bpm Referred By: James Bobby Electronically Signed By: Satinder Lyn
--- NOTE | ~2025-03-07 | XR_ITS ---
CLINICAL HISTORY: tube placement 1 view chest x-ray Comparison: CR - XR CHEST 1V - 03/07/25 17:39 EDT Findings: Worsening bilateral airspace opacities. No large effusion or pneumothorax. Defibrillator pad over the left chest. Endotracheal tube tip is 3.7 cm above the halley. Cardiomediastinal silhouette is stable. No acute fracture. IMPRESSION: 1. Worsening bilateral airspace opacities. 2. Endotracheal tube tip 3.7 cm above the halley. This document has been electronically signed by: Cyn Sanderson MD on 03/07/2025 22:14:40
--- NOTE | ~2025-03-07 | CT_ITS ---
CLINICAL HISTORY: code ? aspiration pna CT chest without contrast Comparison: CR - XR CHEST 1V - 03/07/25 21:[address]/SR - CT CHEST WO IV CON - 02/04/25 06:07 EDT Findings: Aortic and coronary atherosclerosis. No aneurysm. Thyroid gland is atrophic. Multiple prominent mediastinal lymph nodes, favored to be reactive. Endotracheal tube tip is above the halley. Moderate bilateral pleural effusions. Bilateral lower lobe consolidations concerning for pneumonia. Ground-glass opacities and interlobular septal thickening likely superimposed pulmonary edema. Atrophic pancreas. Surgical clip at the gastroesophageal junction. Gallbladder wall edema without distension, favored to be related to volume overload. No acute fractures. IMPRESSION: 1. Bilateral lower lobe consolidations concerning for pneumonia 2. Moderate bilateral pleural effusions 3. Pulmonary edema 4. Mediastinal lymphadenopathy, likely reactive This document has been electronically signed by: Cyn Sanderson MD on 03/07/2025 22:39:50
--- NOTE | ~2025-03-07 | XR_ITS ---
CLINICAL HISTORY: dyspnea 1 view chest x-ray Comparison: CR - XR CHEST 1V - 02/24/25 18:57 EDT Findings: Multiple bilateral pulmonary opacities. No pleural effusion or pneumothorax. Stable cardiomediastinal silhouette. No acute fracture. IMPRESSION: Multifocal bilateral pulmonary opacities secondary to infection and/or edema. This document has been electronically signed by: Odalis Gaoan DO on 03/07/2025 18:24:48
--- NOTE | 2025-03-07 17:11 | ECG_ITS ---
Test Reason : DYSPNEA Blood Pressure : */* mmHG Vent. Rate : 81 BPM Atrial Rate : 81 BPM P-R Int : 142 ms QRS Dur : 90 ms QT Int : 432 ms P-R-T Axes : 52 19 -88 degrees QTcB Int : 501 ms Normal sinus rhythm ST & T wave abnormality, consider inferolateral ischemia Prolonged QT Abnormal ECG When compared with ECG of 24-Feb-2025 18:42, Inverted T waves have replaced nonspecific T wave abnormality in Inferior leads T wave inversion now evident in Lateral leads Referred By: Eric Gotti Electronically Signed By: Satinder Lyn
--- NOTE | 2025-03-07 17:12 | ED.GENADULT ---
HPI - General Adult General Chief complaint: Dyspnea Stated complaint: Difficulty Breathing Time Seen by Provider: 03/07/25 17:01 Source: patient Mode of arrival: ambulatory Limitations: no limitations History of Present Illness HPI narrative: This is a 70-year-old man with a past medical history of ESRD on dialysis M/W/F, insulin-dependent diabetes mellitus, hypertension, hyperlipidemia, anemia, GERD, anxiety, mood disorder who is brought in by EMS for evaluation of hypoxia. EMS states that they were initially called to SNF initially for a cardiac arrest. EMS states however that patient was not in cardiac arrest, but was diaphoretic and was having difficulty breathing. EMS states that they found the patient to be hypoxic on room air in the 80s. EMS states that patient has been tachypneic and did improve with 6 L per minute supplemental oxygen via nasal cannula with SpO2 of 90-93% in route to the hospital. EMS states no other interventions. The patient is a poor historian. Patient states starting to feel short of breath this morning. He states that he did complete his dialysis 1 day prior to presentation. He states no chest pain. He states associated cough. He states no hemoptysis. He states no abdominal pain, nausea or vomiting. He states no urinary symptoms or changes to bowel habits. Related Data Home Medications ?Medication ?Instructions ?Recorded ?Confirmed atenolol 100 mg tablet 1 tab PO DAILY 07/11/21 02/24/25 blood sugar diagnostic (FreeStyle 07/11/21 10/30/24 Lite Strips) levothyroxine 137 mcg tablet 1 tab PO DAILY@0600 07/11/21 02/24/25 pen needle, diabetic 31 gauge x 07/11/21 10/30/24 5/16 (BD Ultra-Fine Short Pen Needle) amlodipine 5 mg tablet 5 mg PO BID 09/03/23 02/24/25 atorvastatin 40 mg tablet 40 mg PO BEDTIME 02/22/24 02/24/25 sodium zirconium cyclosilicate 10 10 g PO SUTUTHSA@89906/19/24 02/24/25 gram oral powder packet (Lokelma) alprazolam 0.5 mg tablet 0.5 mg PO DAILY PRN anxiety attack 10/30/24 02/24/25 alprazolam 2 mg tablet 2 mg PO BID 10/30/24 02/24/25 insulin lispro 100 unit/mL See Protocol subcut TIDAC PRN 10/30/24 02/24/25 subcutaneous pen (Humalog KwikPen Blood Glucose (U-100) Insulin) sevelamer carbonate 800 mg tablet 1,600 mg PO TIDWM 01/09/25 02/24/25 acetaminophen 325 mg tablet 650 mg PO Q6H PRN Fever Or Pain 02/13/25 02/24/25 dextroamphetamine-amphetamine 20 20 mg PO TID 02/24/25 02/24/25 mg tablet hydromorphone 4 mg tablet 4 mg PO Q3H PRN Pain 02/24/25 02/24/25 vitamin D3 125 mcg (5,000 1 cap PO SUTUTHSA 02/24/25 02/24/25 unit)-vitamin K2 100 mcg capsule Previous Rx's ?Medication ?Instructions ?Recorded insulin glargine 100 unit/mL 7 unit (0.07 mL) subcut BEDTIME 02/09/25 subcutaneous solution (Lantus #10 mL U-100 Insulin) cefuroxime axetil 500 mg tablet 500 mg PO BID #10 tabs 02/27/25 midodrine 10 mg tablet 10 mg PO MOWEFR@1645 PRN Dialysis 02/27/25 Hypotension #0 tabs Allergies Allergy/AdvReac Type Severity Reaction Status Date / Time Penicillins [PENICILLINS] Allergy Unknown RASH Verified 03/07/25 17:27 tramadol [From ULTRAM] Allergy Unknown RASH Verified 03/07/25 17:27 trazodone [TRAZODONE] Allergy Unknown PRIAPISM Verified 03/07/25 17:27 risperidone [RISPERIDONE] AdvReac Severe dizzy, EPS Verified 03/07/25 17:27 [facility] Past Medical History Medical History Hypothyroidism Influenza A CHF (congestive heart failure) Acute anemia Multifactorial gait disorder Pneumonia End stage renal disease on dialysis Occult blood positive stool Anemia Internal jugular vein thrombosis Abnormality of gait ESRD needing dialysis Secondary hyperparathyroidism (of renal origin) Anemia in chronic kidney disease DONIS (acute kidney injury) Diabetes Kidney failure HTN (hypertension) Social History Social History Household Members: Spouse Housing: House Are you a primary resident care manager to a significant other at home: No Do you presently have visiting nurse or other home services: No Alcohol intake: former Comment: sitter in place Patient Tobacco Use Status: Never used Tobacco Cigarette Packs Per Day: 0 Cigarettes Per Day: 0 Years Smoked: NA e-Cigarette/Vaping Use: Never Used Second Hand Smoke Exposure: No Advance Directives: Yes Advance Directives on File: Yes Advance Directives Date on File: 09/07/23 Do you have a plan to hurt others: No Plan service: No Physical Exam ED Vital Signs: Vital Signs - 24 hr 03/07/25 17:14 03/07/25 17:17 03/07/25 17:32 Temperature 99.5 F 99.5 F Pulse Rate 81 82 82 Respiratory Rate 31 H 19 22 H Blood Pressure 157/73 H 157/73 H Pulse Oximetry 95 83 L Oxygen Delivery Method Oxymizer Nasal Cannula Oxygen Flow Rate 03/07/25 18:01 03/07/25 18:13 Temperature 99.0 F Pulse Rate 85 86 Respiratory Rate 27 H 17 Blood Pressure 158/74 H 161/76 H Pulse Oximetry 84 L 93 Oxygen Delivery Method Oxymask Oxymizer Oxygen Flow Rate 8 4 BMI result Body Mass Index 26.0 Gen: NAD HEENT: NCAT, EOMI, normal conjunctiva CV: RRR, no murmurs appreciated Pulm: Tachypneic, coarse breath sounds, no wheezes/rhonchi/stridor GI: Soft, NTND, no rebound, guarding or rigidity MSK: Moving all extremities spontaneously Neuro: CN 2-12 grossly intact, awake, alert Medications Administered Discontinued Medications Generic Name Dose Route Start Last Admin Trade Name Freq PRN Reason Stop Dose Admin Albuterol Sulfate 2.5 mg/ 0 mg 03/07/25 17:26 03/07/25 17:29 Albuterol/Ipratropium 3 ml INHALE 03/07/25 17:27 5 dose ONCE ONE Administration Piperacillin Sod/Tazobactam 100 mls @ 200 mls/hr 03/07/25 17:35 03/07/25 18:54 Sod 4.5 gm/ Sodium Chloride IV 03/07/25 18:04 Infused ONCE ONE Infusion Vancomycin HCl 1,500 mg/ 500 mls @ 333.333 mls/hr 03/07/25 17:37 03/07/25 18:51 Sodium Chloride IV 05/20/25 19:06 333.33 mls/hr ONCE ONE Administration Medical Decision Making Medical Decision Making [facility] Narrative: Differential diagnosis includes, but is not limited to pneumonia, viral URI, sepsis, electrolyte derangement. 1536 - patient presents with dyspnea and hypoxia. He is somewhat of a poor historian. Given recent pneumonia, frequent visit to healthcare facilities, lives at a SNF, here with tachypnea and hypoxia. We will initiate treatment for sepsis. Oral temp 99.8F per RN. Have requested rectal temp. Patient provided broad spectrum antibiotics with vancomycin and zosyn. Will not provided 30cc/kg IV fluids bolus given MAP >65mmHg and concern for fluid overload in the setting of known ESRD. Patient with T-max of 99.5? F here in the emergency room, otherwise hemodynamically stable found to have new oxygen requirement. He is initially on a non-rebreather on arrival at 11 L/min with SpO2 of 88%. This improves following nebulized bronchodilators. The patient weaned to 4 L/min Oxymizer. Patient remains on ED bronchodilator protocol. The patient provided broad-spectrum antibiotics as above. Given chest x-ray findings as below with concerning findings for pneumonia he is provided additional coverage for atypicals with doxycycline. I reviewed the patient's labs, EKG and chest x-ray as below. Blood cultures are pending. I discussed the patient's case and management with hospitalist as below the patient is admitted for further workup and management. Critical Care Time: A total of 45 minutes spent in direct patient care with coordinating critical resuscitation, procedures, reviewing records, discussing with consultants, reviewing labs, and/or managing patient. Admission/Observation Consideration of admission/observation: Escalation of care including admission/observation considered Consult Healthcare Provider Management of the patient was discussed with: Hospitalist I discussed the patient's case and management with the hospitalist Harper Hines and Dr. Bobby Lab Data [facility] Lab Attestation statement: I reviewed the patient's lab results. Labs are notable for leukocytosis with a white blood cell count of 28.9 with neutrophilia of 88.8%, stable chronic anemia with hemoglobin 8.9 (previous 8.6), creatinine 7.65 consistent with known ESRD, lactic acid 2.2, BNP 61896, viral panel negative 03/07/25 17:54 03/07/25 17:54 Labs: Lab Results 03/07/25 03/07/25 Range/Units 17:54 18:01 WBC 28.9 H (4.8-10.8) X10*3/uL RBC 2.78 L (4.60-5.80) X10*6/uL Hgb 8.9 L (14.0-18.0) g/dl Hct 26.4 L (42.0-52.0) % MCV 95.0 (80.0-98.0) fL MCH 32.0 (27.0-33.0) pg MCHC 33.7 (31.0-36.0) g/dl RDW 15.6 (11.0-16.0) % Plt Count 295 (160-400) X10*3/uL MPV 10.3 (9.4-12.4) fL Immature Gran % (Auto) 0.9 H (0.0-0.4) % Neut % (Auto) 88.8 H (45-73) % Lymph % (Auto) 3.9 L (20-40) % [place] % (Auto) 5.7 (2-11) % Eos % (Auto) 0.3 (0-4) % Baso % (Auto) 0.4 (0-2) % Lymph # (Auto) 1.1 L (1.2-4.9) X10*3/uL [place] # (Auto) 1.7 H (0.1-1.2) X10*3/uL Eos # (Auto) 0.1 (0.0-0.4) X10*3/uL Baso # (Auto) 0.1 (0.0-0.2) X10*3/uL Abs Immat Gran (auto) 0.27 H (0.00-0.03) X10*3/uL Absolute Neuts (auto) 25.6 H (2.0-8.3) x10*3/uL Absolute Nucleated RBC 0.000 (0.0-0.012) X10*3/uL Nucleated RBC % (auto) 0.0 (0.0-0.2) /100WBC Smear Tech's Comments VERIFIED PT 12.6 H (10.9-12.4) SEC INR 1.1 (0.9-1.1) APTT 27.6 (26.0-36.8) SEC VBG pH 7.48 H (7.32-7.43) VBG pCO2 42 mmHg VBG pO2 34 mmHg VBG HCO3 32 H (22-26) mmol/L VBG O2 Saturation 48.0 % VBG Base Excess 8.2 mmol/L Sodium 135 (135-145) mmol/L Potassium 4.1 (3.3-5.1) mmol/L Chloride 92 L (96-108) mmol/L Carbon Dioxide 27 (22-29) mmol/L Anion Gap 20 (12-20) BUN 39 H (9-16) mg/dL Creatinine 7.65 H* (0.5-1.4) mg/dL Estim Creat Clear Calc 7.9 Estimated GFR 7 Random Glucose 170 H (60-115) mg/dL Lactic Acid 2.2 H* (0.5-2.0) mmol/L Calcium 8.8 (8.4-10.2) mg/dL Total Bilirubin 0.9 (0.0-1.0) mg/dL AST 33 (5-37) U/L ALT 19 (0-40) U/L Alkaline Phosphatase 112 (39-117) U/L B-Natriuretic Peptide 96171 H (<100) pg/mL Total Protein 7.5 (6.5-8.0) g/dL Albumin 4.2 (3.5-5.0) g/dL Influenza Type A (PCR) NEGATIVE (Negative) Influenza Type B (PCR) NEGATIVE (Negative) RSV RNA Qual (PCR) NEGATIVE (Negative) SARS-CoV-2 RNA (RT-PCR) NEGATIVE (Negative) Independent Interpretation I performed an independent interpretation of an: EKG and Plain X-Ray Interpretation: EKG shows normal sinus rhythm at 81 beats per minute, MN 142, QRS 90, QTC 501, no STEMI. Chest x-ray demonstrates no pleural effusions, pneumothorax, positive bilateral multifocal opacities Radiology Impression Discussion of test interpretation with radiology: I have reviewed the radiologist's reading. Radiologist Impression: IMPRESSION: Multifocal bilateral pulmonary opacities secondary to infection and/or edema. This document has been electronically signed by: Odalis Gaona DO on 03/07/2025 18:24:48 Dictated By: Odalis Gaona MD Signed By: <Electronically signed by Odalis Gaona MD in OV> 03/07/25 4007 Discharge Plan Discharge Clinical Impression: Sepsis, Acute hypoxic respiratory failure, Multifocal pneumonia Patient Disposition: Admitted As Inpatient Prescriptions: No Action levothyroxine 137 mcg tablet 1 tab PO DAILY@0600 atenolol 100 mg tablet 1 tab PO DAILY (DME) FreeStyle Lite Strips Strip MISCELLANEOUS TID (DME) pen needle, diabetic [BD Ultra-Fine Short Pen Needle] 31 gauge x 5/16 needle subcut DAILY Lokelma 10 gram Powder In Packet 10 g PO SUTUTHSA@0900 Rx Instructions: on non dialysis days sevelamer carbonate 800 mg tablet 1,600 mg PO TIDWM insulin glargine [Lantus U-100 Insulin] 100 unit/mL Solution 7 unit SUBCUT BEDTIME Qty: 10 0RF Rx Instructions: Pt does not take at home, something placed on last Admit, new orders not given at home acetaminophen 325 mg Tablet 650 mg PO Q6H PRN (Reason: Fever Or Pain) amlodipine 5 mg tablet 5 mg PO BID atorvastatin 40 mg tablet 40 mg PO BEDTIME alprazolam 0.5 mg tablet 0.5 mg PO DAILY PRN (Reason: anxiety attack) alprazolam 2 mg tablet 2 mg PO BID insulin lispro [Humalog KwikPen Insulin] 100 unit/mL insulin pen See Protocol subcut TIDAC PRN (Reason: Blood Glucose) Protocol: Insulin Correction Scale Less than or equal to 110 ---- Give (units): 0 111 to 150 Give (units): 0 151 to 200 Give (units): 2 201 to 250 Give (units): 4 251 to 300 Give (units): 6 301 to 350 Give (units): 8 Greater than 350 Give (units): 10 Call if Blood Glucose > : 350 Rx Instructions: Pt does not take at home, something placed on last Admit, new orders not given at home dextroamphetamine-amphetamine 20 mg tablet 20 mg PO TID vitamin D3-vitamin K2 125 mcg (5,000 unit)-100 mcg Capsule 1 cap PO SUTUTHSA hydromorphone 4 mg tablet 4 mg PO Q3H PRN (Reason: Pain) Rx Instructions: Partial Fill upon patient request. midodrine 10 mg Tablet 10 mg PO MOWEFR@1645 PRN (Reason: Dialysis Hypotension) Qty: 0 0RF cefuroxime axetil 500 mg tablet 500 mg PO BID Qty: 10 0RF Print Language: Arabic
--- NOTE | 2025-03-07 17:26 | PC.NURSE ---
patient brought in by EMS to ED, patient from [facility] ems called for cardiac arrest, [facility] crew on scene first, patient was tachypneic, diaphoretic with pulses. placed on cpap. medica arrived on scene, dc/d cpap, placed patient on 6lNC and got patient sat to 92%. patient is alert and oriented, recent admit for pneumonia. patient goes to dialysis- unknown what days, states he was dialysised yesterday. patient constantly clearing his throat, states he feels like something is there and its dry. upon arrival to ED patient satting 82% on 6lNC. patient placed on oxymask 11L, sat now 96%. patient difficult IV stick, 22 placed in right wrist. patient left arm restricted for dialysis fistula. patient appears pale, cool and diaphoretic, bp stable. tech attempting labs at this point. RT and ED provider at bedside for intervention
[2025-03-07] MEDS: Albuterol Sulfate 2.5 MG, Albuterol/Iprat 2.5/0.5MG 3 ML 3 ML INHALE (17:29)
[2025-03-07 18:03] LABS: Venous Blood Gas Refer to POC result
[2025-03-07 18:04] LABS: VBG Base Excess 8.2 mmol/L; VBG HCO3 32 mmol/L (22-26); VBG pCO2 42 mmHg; VBG pH 7.48 (7.32-7.43); VBG pO2 34 mmHg
[2025-03-07 18:11] LABS: INTERNATIONAL NORM RATIO 1.1 (0.9-1.1); Prothrombin Time 12.6 SEC (10.9-12.4)
[2025-03-07 18:13] LABS: Basophils Absolute Auto 0.1 X10*3/uL (0.0-0.2); Basophils Percent Auto 0.4 % (0-2); Eosinophils Absolute Auto 0.1 X10*3/uL (0.0-0.4); Eosinophils Percent Auto 0.3 % (0-4); Hematocrit 26.4 % (42.0-52.0); Hemoglobin 8.9 g/dl (14.0-18.0); Imm Gran Abs Auto 0.27 X10*3/uL (0.00-0.03); Imm Gran Pct Auto 0.9 % (0.0-0.4); Lymphocytes Absolute Auto 1.1 X10*3/uL (1.2-4.9); Lymphocytes Percent Auto 3.9 % (20-40); MANUAL DIFF FLAG SCAN; Mean Corpuscular HGB Conc 33.7 g/dl (31.0-36.0); Mean Platelet Volume 10.3 fL (9.4-12.4); Monocytes Absolute Auto 1.7 X10*3/uL (0.1-1.2); Monocytes Percent Auto 5.7 % (2-11); Neutrophils Absolute Auto 25.6 x10*3/uL (2.0-8.3); Neutrophils Percent Auto 88.8 % (45-73); Partial Thromboplastin Time 27.6 SEC (26.0-36.8); Platelet Count 295 X10*3/uL (160-400); Red Blood Count 2.78 X10*6/uL (4.60-5.80); Red Cell Distribution Width 15.6 % (11.0-16.0); SCAN SMEAR FLAG 1; White Blood Count 28.9 X10*3/uL (4.8-10.8)
[2025-03-07] MEDS: Piperacillin Sodium/Tazobactam 4.5 GM in 0.9 % Sodium Chloride 100 ML IV (18:18)
[2025-03-07 18:19] LABS: Lactic Acid 2.2 mmol/L (0.5-2.0)
--- NOTE | 2025-03-07 18:23 | PC.NURSE ---
patient yelled out to staff, LUI , this RN went into room, patient had tele cords in hand, states that an email came thru and he needs it to be read to him. patient redirected that he is in the ER, and the beeping he may have thought was an email was likely the monitor. patient calm now, tv turned on, patient watching movie
[2025-03-07 18:31] LABS: Alanine Aminotransferase 19 U/L (0-40); Albumin Level 4.2 g/dL (3.5-5.0); Alkaline Phosphatase 112 U/L (39-117); Anion Gap 20 (12-20); Aspartate Amino Transferase 33 U/L (5-37); Bilirubin Total 0.9 mg/dL (0.0-1.0); Blood Urea Nitrogen 39 mg/dL (9-16); Calcium 8.8 mg/dL (8.4-10.2); Carbon Dioxide 27 mmol/L (22-29); Chloride 92 mmol/L (96-108); Creatinine Clr Calc Pharmacy 7.9; Estimated Glomerular Filt Rate 7; Glucose Random 170 mg/dL (60-115); Potassium 4.1 mmol/L (3.3-5.1); Sodium 135 mmol/L (135-145); Total Protein 7.5 g/dL (6.5-8.0)
[2025-03-07 18:32] LABS: SLIDE REVIEW VERIFIED
[2025-03-07 18:40] LABS: Influenza A PCR NEGATIVE (Negative); Influenza B PCR NEGATIVE (Negative); Resp Syncy Virus RNA Qual PCR NEGATIVE (Negative); SARS COV2 PCR INHOUSE NEGATIVE (Negative)
[2025-03-07 18:44] LABS: B Type Natriuretic Peptide 10774 pg/mL (<100)
[2025-03-07] MEDS: vancomycin HCL 1,500 MG in 0.9 % Sodium Chloride 500 ML 333.33 MG IV (18:51)
--- OUTSIDE RECORDS SUMMARY | 2025-03-07 18:54 | XMS_ITS | Encounter Summary ---
Author Organization [facility], Address [address] [place] [address] Phone Care Team Providers Care Communications And Signals Supervisor Name Role Phone Matias Tan MD Primary Care Provider +1- [phone] Reason for Visit * Reason Comments Med Refill Encounter Details Date Type Department Care Team (Late st Contact Info) Description 09/25/2023 Refill [facility] [address] [place] [phone] Denys Mueller MD [address] [place] [address] Social History Tobacco Use Types [...] on file documented as of this encounter Visit Diagnoses Not on filedocumented in this encounter Care Teams Communications And Signals Supervisor Relationship Specialty Start Date End Date Matias Tan MD [address] [place] [address] PCP - General Family Medicine 10/24/19 documented as of this encounter
--- OUTSIDE RECORDS SUMMARY | 2025-03-07 18:54 | XMS_ITS | Encounter Summary ---
Author Organization [facility], Address [address] [place] [address] Phone Care Team Providers Care Legal Summer Intern Name Role Phone Matias Tan MD Primary Care Provider +1- [phone] Reason for Visit * Reason Comments Med Refill Encounter Details Date Type Department Care Team (Late st Contact Info) Description 07/17/2022 Refill [facility] [address] [place] [phone] Guanako Mercer MD [address] [place] [phone] Social History Tobacco Use Types Packs/Day Years [...] on filedocumented in this encounter Care Teams Legal Summer Intern Relationship Specialty Start Date End Date Matias Tan MD [address] [place] [address] PCP - General Family Medicine 10/24/19 documented as of this encounter
--- OUTSIDE RECORDS SUMMARY | 2025-03-07 18:54 | XMS_ITS | Encounter Summary ---
Author Organization [facility], Address [address] [place] [address] Phone Care Team Providers Care Tax Adjuster Name Role Phone Matias Tan MD Primary Care Provider +1- [phone] Reason for Visit * Reason Comments Med Refill Encounter Details Date Type Department Care Team (Late st Contact Info) Description 06/24/2022 Refill [facility], [address] [place] [phone] Guanako Mercer MD [address] [place] [phone] Social History Tobacco Use Types Packs/Day Years [...] on filedocumented in this encounter Care Teams Tax Adjuster Relationship Specialty Start Date End Date Matias Tan MD [address] [place] [address] PCP - General Family Medicine 10/24/19 documented as of this encounter
--- OUTSIDE RECORDS SUMMARY | 2025-03-07 18:54 | XMS_ITS | Encounter Summary ---
Author Organization [facility] [place], Address [address] [place] [address] Phone Care Team Providers Care Typing Secretary Name Role Phone Matias Tan MD Primary Care Provider +1- [phone] Reason for Visit * Reason Onset Date Comments Med Refill 06/24/2022 Encounter Details Date Type Department Care Team (Late st Contact Info) Description 06/24/2022 Refill [facility], [address] [place] [phone] Guanako Mercer MD [address] [place] [phone] Social History Tobacco Use Types Packs/Day Years [...] on filedocumented in this encounter Care Teams Typing Secretary Relationship Specialty Start Date End Date Matias Tan MD [address] [facility] [place] [address] PCP - General Family Medicine 10/24/19 documented as of this encounter
--- OUTSIDE RECORDS SUMMARY | 2025-03-07 18:54 | XMS_ITS | Encounter Summary ---
Author Organization [facility] [place], Address [address] [place] [address] Phone Care Team Providers Care Import/Export Specialist Name Role Phone Matias Tan MD Primary Care Provider +1- [phone] Reason for Visit * Reason Onset Date Comments Med Refill 06/20/2022 Encounter Details Date Type Department Care Team (Late st Contact Info) Description 06/20/2022 Refill [facility], [address] [place] [phone] Guanako Mercer MD [address] [facility] [address] [place] [phone] Social History Tobacco Use Types Packs/Day Years [...] on filedocumented in this encounter Care Teams Import/Export Specialist Relationship Specialty Start Date End Date Matias Tan MD [address] [place] [address] PCP - General Family Medicine 10/24/19 documented as of this encounter
--- OUTSIDE RECORDS SUMMARY | 2025-03-07 18:54 | XMS_ITS | Encounter Summary ---
Author Organization [facility] [place], Address [address] [place] [address] Phone Care Team Providers Care Department Operations Manager Name Role Phone Matias Tan MD Primary Care Provider +1- [phone] Reason for Visit * Reason Comments Med Refill Encounter Details Date Type Department Care Team (Late st Contact Info) Description 01/26/2023 Refill [facility] [address] [place] [address] Gabriela Hernandez PA Social History Tobacco Use [...] on filedocumented in this encounter Care Teams Department Operations Manager Relationship Specialty Start Date End Date Matias Tan MD [facility] [address] [facility] [address] PCP - General Family Medicine 10/24/19 documented as of this encounter
--- OUTSIDE RECORDS SUMMARY | 2025-03-07 18:54 | XMS_ITS | Encounter Summary ---
Author Organization [facility] [place] [facility], Address [address] [place] [address] Phone Care Team Providers Care Hydrologic Engineer Name Role Phone Matias Tan MD Primary Care Provider +1- [phone] Encounter Details Date Type Department Care Team (Late st Contact Info) Description 03/11/2023 Documentation Only [facility], [address] [place] [phone] Jose Luis Amezcua MD Social History Tobacco [...] on filedocumented in this encounter Care Teams Hydrologic Engineer Relationship Specialty Start Date End Date Matias Tan MD [facility] [address] [facility] [place] [id number] PCP - General Family Medicine 10/24/19 documented as of this encounter
--- OUTSIDE RECORDS SUMMARY | 2025-03-07 18:54 | XMS_ITS | Encounter Summary ---
Author Organization [facility] [place], Address [address] [place] [address] Phone Care Team Providers Care Apartment Groundskeeper Name Role Phone Matias Tan MD Primary Care Provider +1- [phone] Encounter Details Date Type Department Care Team (Late st Contact Info) Description 01/10/2022 Documentation Only [facility], [address] [place] [phone] [address] [place] [address] Social History Tobacco Use Types [...] on filedocumented in this encounter Care Teams Apartment Groundskeeper Relationship Specialty Start Date End Date Matias Tan MD [address] [place] [address] PCP - General Family Medicine 10/24/19 documented as of this encounter
--- OUTSIDE RECORDS SUMMARY | 2025-03-07 18:54 | XMS_ITS | Encounter Summary ---
Author Organization [facility] [place], Address [address] [place] [address] Phone Care Team Providers Care Line Repairer Tower Name Role Phone Matias Tan MD Primary Care Provider +1- [phone] Reason for Visit * Reason Onset Date Comments Med Refill 06/08/2022 Encounter Details Date Type Department Care Team (Late st Contact Info) Description 06/08/2022 Refill [facility], [address] [place] [phone] Guanako Mercer MD [address] [facility] [address] [place] [phone] Social History Tobacco Use Types Packs/Day Years [...] on filedocumented in this encounter Care Teams Line Repairer Tower Relationship Specialty Start Date End Date Matias Tan MD [address] [place] [address] PCP - General Family Medicine 10/24/19 documented as of this encounter
--- OUTSIDE RECORDS SUMMARY | 2025-03-07 18:54 | XMS_ITS | Encounter Summary ---
Author Organization [facility] [place], Address [address] [place] [address] Phone Care Team Providers Care Hot Stamp Operator Name Role Phone Matias Tan MD Primary Care Provider +1- [phone] Reason for Visit * Reason Comments Med Refill Encounter Details Date Type Department Care Team (Late st Contact Info) Description 01/26/2023 Refill [facility] [address] [place] [phone] Denys Mueller MD [address] [place] [address] Social History Tobacco Use Types [...] on filedocumented in this encounter Care Teams Hot Stamp Operator Relationship Specialty Start Date End Date Matias Tan MD [address] [place] [address] PCP - General Family Medicine 10/24/19 documented as of this encounter
--- OUTSIDE RECORDS SUMMARY | 2025-03-07 18:54 | XMS_ITS | Encounter Summary ---
Author Organization [facility] [place], Address [address] [place] [address] Phone Care Team Providers Care Kettle Cook Name Role Phone Matias Tan MD Primary Care Provider +1- [phone] Reason for Visit * Reason Onset Date Comments Med Refill 07/19/2022 Encounter Details Date Type Department Care Team (Late st Contact Info) Description 07/19/2022 Refill [facility] - [facility] [address] [place] [phone] Guanako Mercer MD [address] [place] [phone] Social History Tobacco Use Types Packs/Day Years [...] on filedocumented in this encounter Care Teams Kettle Cook Relationship Specialty Start Date End Date Matias Tan MD [address] [place] [address] PCP - General Family Medicine 10/24/19 documented as of this encounter
--- OUTSIDE RECORDS SUMMARY | 2025-03-07 18:54 | XMS_ITS | Encounter Summary ---
Author Organization [facility] [place], Address [address] [place] [address] Phone Care Team Providers Care Electric Brain Wave Equipment Mechanic Name Role Phone Matias Tan MD Primary Care Provider +1- [phone] Reason for Visit * Reason Onset Date Comments Med Refill 07/01/2024 Encounter Details Date Type Department Care Team (Late st Contact Info) Description 07/01/2024 Refill [facility], - [facility] Access Center [address] [place] [phone] Dale Lema MD [address] [place] [phone] Social History Tobacco Use Types Packs/Day Years [...] on filedocumented in this encounter Care Teams Electric Brain Wave Equipment Mechanic Relationship Specialty Start Date End Date Matias Tan MD [address] [place] [phone] PCP - General Family Medicine 10/24/19 documented as of this encounter
--- OUTSIDE RECORDS SUMMARY | 2025-03-07 18:55 | XMS_ITS | Encounter Summary ---
Author Organization [facility] [place], Address [address] [place] [address] Phone Care Team Providers Care Computer Forensics Examiner Name Role Phone Matias Tan MD Primary Care Provider +1- [phone] Reason for Visit * Reason Onset Date Comments Med Refill 12/20/2022 Encounter Details Date Type Department Care Team (Late st Contact Info) Description 12/20/2022 Refill [facility] - Vascular Access Center [address] [place] [address] Kb Sung MD Social History Tobacco Use [...] filedocumented in this encounter Care Teams Computer Forensics Examiner Relationship Specialty Start Date End Date Matias Tan MD [address] [place] [address] PCP - General Family Medicine 10/24/19 documented as of this encounter
--- OUTSIDE RECORDS SUMMARY | 2025-03-07 18:55 | XMS_ITS | Encounter Summary ---
Author Organization [facility] [place], Address [address] [place] [address] Phone Care Team Providers Care Mental Health Program Specialist Name Role Phone Matias Tan MD Primary Care Provider +1- [phone] Reason for Visit * Reason Onset Date Comments Med Refill 12/23/2022 Encounter Details Date Type Department Care Team (Late st Contact Info) Description 12/23/2022 Refill [facility] [address] [phone] Ferdinand Monroe MD [address] [place] [phone] Social History Tobacco Use Types Packs/Day Years [...] on filedocumented in this encounter Care Teams Mental Health Program Specialist Relationship Specialty Start Date End Date Matias Tan MD [address] [place] [phone] PCP - General Family Medicine 10/24/19 documented as of this encounter
--- OUTSIDE RECORDS SUMMARY | 2025-03-07 18:55 | XMS_ITS | Encounter Summary ---
Author Organization [facility] [place], Address [address] [place] [address] Phone Care Team Providers Care Pharmacy Retail Support Specialist Name Role Phone Matias Tan MD Primary Care Provider +1- [phone] Reason for Visit * Reason Comments Med Refill Encounter Details Date Type Department Care Team (Late st Contact Info) Description 09/24/2023 Refill [facility] [address] [place] [address] Gabriela Hernandez PA Social History Tobacco Use [...] on filedocumented in this encounter Care Teams Pharmacy Retail Support Specialist Relationship Specialty Start Date End Date Matias Tan MD [facility] [address] [facility] [place] [address] PCP - General Family Medicine 10/24/19 documented as of this encounter
--- OUTSIDE RECORDS SUMMARY | 2025-03-07 18:55 | XMS_ITS | Encounter Summary ---
Author Organization [facility] Address [address] [place] [address] Care Team Providers Care Concrete Inspector Name Role Phone Yulia Smart MD Primary Care Provider Encounter Details Date Type Department Care Team (Late st Contact Info) Description 01/18/2025 Lab Requisition [facility] - Main Lab [address] [facility] [place] [address] Yulia Smart MD [address] [place] [address] Encounter for other general examination Social History [...] K/mcL LAB HEMETOLOGY METHOD 01/18/2025 7:[address] [facility] RBC 3.10(L) 4.50 - 5.50 M/mcL LAB HEMETOLOGY METHOD 01/18/2025 7:[address] [facility] Hemoglobin 9.5(L) 13.5 - 17.5 g/dL LAB HEMETOLOGY METHOD 01/18/2025 7:[address] [facility] Hematocrit 27.0(L) 42.0 - 54.0 % LAB HEMETOLOGY METHOD 01/18/2025 7:[address] [facility] MCV 87.1 79.0 - 98.0 FL LAB HEMETOLOGY METHOD 01/18/2025 7:[address] [facility] MCH 30.6 27.0 - 32.0 pcg LAB HEMETOLOGY METHOD 01/18/2025 7:[address] [facility] MCHC 35.2 32.0 - 37.0 g/dL LAB HEMETOLOGY METHOD 01/18/2025 7:[address] [facility] RDW 14.3 11.0 - 15.0 % LAB HEMETOLOGY METHOD 01/18/2025 7:[address] [facility] Platelets 251 130 - 400 K/mcL LAB HEMETOLOGY METHOD 01/18/2025 7:[address] [facility] MPV 11.1(H) 7.0 - 11.0 FL LAB HEMETOLOGY METHOD 01/18/2025 7:[address] [facility] NRBC 0.0 <1.0 % LAB HEMETOLOGY METHOD 01/18/2025 7:[address] [facility] NRBC Absolute 0.00 <0.10 K/mcL LAB HEMETOLOGY METHOD 01/18/2025 7:10 AM EDT [facility] Neutrophils Relative 77.1 % LAB HEMETOLOGY METHOD 01/18/2025 7:[address] [facility] Lymphocytes Relative 8.3 % LAB HEMETOLOGY METHOD 01/18/2025 7:[address] [facility] Monocytes Relative 13.5 % LAB HEMETOLOGY METHOD 01/18/2025 7:[address] [facility] Eosinophils Relative 0.0 % LAB HEMETOLOGY METHOD 01/18/2025 7:[address] [facility] Basophils Relative 0.0 % LAB HEMETOLOGY METHOD 01/18/2025 7:[address] [facility] Immature Granulocytes Relative 1.1 % LAB HEMETOLOGY METHOD 01/18/2025 7:[address] [facility] Neutrophils Absolute 7.61(H) 1.50 - 7.00 K/mcL LAB HEMETOLOGY METHOD 01/18/2025 7:[address] [facility] Lymphocytes Absolute 0.82(L) 1.00 - 5.00 K/mcL LAB HEMETOLOGY METHOD 01/18/2025 7:[address] [facility] Monocytes Absolute 1.33(H) 0.20 - 1.00 K/mcL LAB HEMETOLOGY METHOD 01/18/2025 7:[address] [facility] Eosinophils Absolute 0.00 0.00 - 0.50 K/mcL LAB HEMETOLOGY METHOD 01/18/2025 7:[address] [facility] Basophils Absolute 0.00 0.00 - 0.20 K/mcL LAB HEMETOLOGY METHOD 01/18/2025 7:[address] [facility] Immature Granulocytes Absolute 0.11(H) 0.00 - 0.03 K/mcL LAB HEMETOLOGY METHOD 01/18/2025 7:10 AM EDT [facility] Blood Venous blood specimen / Unknown Venipuncture / Unknown 01/18/2025 5:06 AM EDT 01/18/2025 6:20 AM EDT us Yulia Smart MD LAB BLOOD ORDERABLES Final Resu lt Performing Organization Address City/[facility]/ZIP Co de Phone Number [facility] [address] [place] [address], [place] [phone] * Ammonia (01/18/2025 5:06 AM EDT) Ammonia 28 11 - 35 mcmol/L LAB CHEMISTRY METHOD 01/18/2025 6:53 AM EDT [facility] Blood Venous blood specimen / Unknown Venipuncture / Unknown 01/18/2025 5:06 AM EDT 01/18/2025 6:20 AM EDT us Yulia Smart MD LAB BLOOD ORDERABLES Final Resu lt Performing Organization Address [facility] Co de Phone Number [facility] [address] [place] [address], [place] [phone] * Thyroid stimulating hormone (01/18/2025 5:06 AM EDT) TSH 1.94 0.40 - 4.00 mcIU/mL LAB CHEMISTRY METHOD 01/18/2025 9:08 AM EDT [facility] Blood Venous blood specimen / Unknown Venipuncture / Unknown 01/18/2025 5:06 AM EDT 01/18/2025 6:20 AM EDT us Yulia Smart MD LAB BLOOD ORDERABLES Final Resu lt Performing Organization Address City/[facility]/ZIP Co de Phone Number [facility] [address] [place] [address], [place] [phone] * (ABNORMAL) Vitamin B12 (01/18/2025 5:06 AM EDT) [facility] Vitamin B-12 1,241(H) 250 - 900 pcg/mL LAB CHEMISTRY METHOD 01/18/2025 7:36 AM EDT [facility] Blood Venous blood specimen / Unknown Venipuncture / Unknown 01/18/2025 5:06 AM EDT 01/18/2025 6:20 AM EDT us Yulia Smart MD LAB BLOOD ORDERABLES Final Resu lt [facility] [address] [place] [address], [place] [phone] * (ABNORMAL) Comprehensive metabolic panel (01/18/2025 5:06 AM EDT) [facility] Sodium 123(L) 133 - 145 mmol/L LAB CHEMISTRY METHOD 01/18/2025 7:[address] [facility] Potassium 5.2 3.5 - 5.5 mmol/L LAB CHEMISTRY METHOD 01/18/2025 7:[address] [facility] Chloride 89(L) 96 - 110 mmol/L LAB CHEMISTRY METHOD 01/18/2025 7:[address] [facility] CO2 21 21 - 32 mmol/L LAB CHEMISTRY METHOD 01/18/2025 7:[address] [facility] Anion Gap 13(H) 3 - 11 LAB CHEMISTRY METHOD 01/18/2025 7:[address] [facility] Glucose 174(H) 70 - 100 mg/dL LAB CHEMISTRY METHOD 01/18/2025 7:[address] [facility] BUN 96(H) 5 - 25 mg/dL LAB CHEMISTRY METHOD 01/18/2025 7:[address] [facility] Creatinine 9.44(H) 0.70 - 1.30 mg/dL LAB CHEMISTRY METHOD 01/18/2025 7:[address] [facility] eGFR 5(L) >=60 mL/min/1. 73m2 LAB CHEMISTRY METHOD 01/18/2025 7:[address] [facility] Comment:Calculation based on the??Chronic Kidney Disease Epidemiology Collaboration (CKD-EPI) equation refit??without adjustment for race. BUN/Creatinine Ratio 10.2 LAB CHEMISTRY METHOD 01/18/2025 7:[address] [facility] Calcium 7.8(L) 8.5 - 10.5 mg/dL LAB CHEMISTRY METHOD 01/18/2025 7:[address] [facility] AST (SGOT) 13 10 - 42 unit/L LAB CHEMISTRY METHOD 01/18/2025 7:[address] [facility] Comment:Results verified by repeat testing ALT (SGPT) 21 10 - 60 unit/L LAB CHEMISTRY METHOD 01/18/2025 7:[address] [facility] Alkaline Phosphatase 52 42 - 121 unit/L LAB CHEMISTRY METHOD 01/18/2025 7:[address] [facility] Total Protein 5.3(L) 6.0 - 8.0 g/dL LAB CHEMISTRY METHOD 01/18/2025 7:[address] [facility] Albumin 2.6(L) 3.2 - 5.0 g/dL LAB CHEMISTRY METHOD 01/18/2025 7:[address] [facility] Total Bilirubin 1.0 0.0 - 1.4 mg/dL LAB CHEMISTRY METHOD 01/18/2025 7:[address] [facility] Comment:Results verified by repeat testing Blood Venous blood specimen / Unknown Venipuncture / Unknown 01/18/2025 5:06 AM EDT 01/18/2025 6:20 AM EDT us Rami A Ashkar MD LAB BLOOD ORDERABLES Final Resu lt [facility] [address] [place] [address], documented in this encounter Visit Diagnoses Diagnosis Encounter for other general examination documented in this encounter Care Teams Concrete Inspector Relationship Specialty Start Date End Date Yulia Smart MD [address] [place] [address] PCP - General Hospitalist Medicine 01/13/25 documented as of this encounter
--- OUTSIDE RECORDS SUMMARY | 2025-03-07 18:55 | XMS_ITS | Encounter Summary ---
Author Organization [facility] [place], Address [address] [place] [address] Phone Care Team Providers Care Swing Grinder Name Role Phone Matias Tan MD Primary Care Provider +1- [phone] Reason for Visit * Reason Comments Med Refill Encounter Details Date Type Department Care Team (Late st Contact Info) Description 09/24/2023 Refill [facility] [address] [place] [phone] Denys Mueller MD [address] [place] [address] Social History Tobacco Use Types [...] on filedocumented in this encounter Care Teams Swing Grinder Relationship Specialty Start Date End Date Matias Tan MD [address] [place] [address] PCP - General Family Medicine 10/24/19 documented as of this encounter
--- OUTSIDE RECORDS SUMMARY | 2025-03-07 18:55 | XMS_ITS | Encounter Summary ---
Author Organization [facility] [place], Address [address] [place] [address] Phone Care Team Providers Care Technical Mgr Name Role Phone Matias Tan MD Primary Care Provider +1- [phone] Encounter Details Date Type Department Care Team (Late st Contact Info) Description 03/01/2025 Treatment [facility], [address] [place] [phone] Guanako Tan MD [address] [place] [place] [phone] End stage renal disease; Dependence on renal [...] Dialysis Note - Guanako Tan MD - 03/01/2025 12:00 AM EDT Patient: Emma Wick : 1955 [facility]: [facility] Note Type: Dialysis Rounds-Comp Service Date: 03/01/2025 This patient was personally seen for a complete visit as part of routine monthly dialysis care for end stage renal disease. Attending Hoop Machine Operator: JACQUELIN HONG Dialysis Location: [facility] Schedule: Shift: 2 OVERVIEW Patient is stable. [facility] albuterol sulfate 90 mcg/actuation HFA [...] tablet by mouth once a day. Current [facility] Allergies Allergen: PENICILLINS Reaction: Unknown Severity: Moderate Allergen: tramadol Reaction: Skin Rash Allergen: trazodone Reaction: Unknown Severity: Moderate Allergen: Ultram Reaction: Skin Rash DIALYSIS PRESCRIPTION Treatment Data Treatment Date: 02/03/2025 started at: 11:05 AM Dialysate / Machine Temp (prescribed): 36.0*C Dialysate / Machine Temp (actual): 36.0*C BFR (prescribed): 450 BFR (average delivered): 450 DFR (prescribed): Manual 800 DFR (average delivered): 800 Prescribed Time: 04:00 Actual Time: 04:03 EDW (kg): 73.5 Dialyzer: 160NRe Optiflux Dialysate: 2.0 K, 2.50 Ca, 1.0 Mg, 100 Dextrose (RC2688) Sodium: 138 Bicarb: 36 Pre Dialysis Vitals Pre BP Sit: 139/73 Pre Wt (kg): 79.6 EDW Deviation (kg): 6.1 Temp: 98.5*F Post Dialysis Vitals Post BP Sit: 149/70 Post Wt (kg): 75.8 TREATMENT MEDICATIONS ORDERS Heparin Sodium (Porcine) 1,000 Units/mL Systemic 1000 units IVP Every Treatment 09/23/2024 - 09/22/2025 Mircera 100 mcg IVP Every 2 weeks 02/22/2025 - 02/21/2026 Vitamin D (Calcitriol) Oral 0.5 mcg ORAL Every Treatment During Dialysis 07/11/2024 - 07/10/2025 BP AND FLUID ASSESSMENT Post BP Sit 149/70 - 02/03/2025 169/79 - 01/06/2025 Post Wt (kg) 75.8 - 02/03/2025 73.1 - 01/06/2025 EDW (kg) 73.5 - 02/03/2025 70.5 - 01/06/2025 Deviation (kg) 2.3 - 02/03/2025 2.6 - 01/06/2025 ADEQUACY ASSESSMENT spKt/V (Daugirdas II) 1.82 (02/03/25) 1.94 (12/21/24) 1.70 (11/23/24) eKdrt/V 1.77 (12/21/24) 1.54 (11/23/24) 1.68 (10/21/24) % Urea Reduction 77 (02/03/25) 79 (12/21/24) 75 (11/23/24) BUN 35 (02/03/25) 61 (12/21/24) 32 (11/23/24) BUN Post Dialysis 8 (02/03/25) 13 (12/21/24) 8 (11/23/24) Creatinine 10.93 (02/03/25) 9.17 (01/04/25) 9.44 (12/07/24) Bicarbonate (CO2) 23 (02/03/25) 25 (01/04/25) 25 (12/07/24) Sodium 128 (02/03/25) 136 (01/04/25) 137 (12/07/24) Missed Treatments 13 - Last 30 days 24 - Last 60 days Most recently missed on 03/06/2025 ACCESS ASSESSMENT AVGraft Synthetic - Standard (PTFE) Left Upper Arm Active (In Use) - 05/22/2022 Placed - 05/07/2022 Access Flow 1328 (12/19/24) 1129 (11/21/24) 1152 (10/24/24) ANEMIA ASSESSMENT Hemoglobin 8.0 (02/03/25) 11.2 (01/04/25) 11.5 (12/28/24) Iron Saturation (TSat) 50 (02/03/25) 56 (01/04/25) 19 (12/07/24) Ferritin 1,453 (02/03/25) 892 (01/04/25) 691 (12/07/24) Iron 100 (02/03/25) 104 (01/04/25) 44 (12/07/24) TIBC 201 (02/03/25) 187 (01/04/25) 228 (12/07/24) Reticulocyte Hemoglobin 35.3 (05/04/24) MCV 95 (05/04/24) BMM ASSESSMENT Calcium 8.2 02/03/25 8.4 01/04/25 8.5 12/07/24 Corrected Calcium 8.7 02/03/25 8.6 01/04/25 8.4 12/07/24 Phosphorus 3.6 02/03/25 9.5 01/04/25 5.9 12/07/24 Calcium Phosphorus Product 30 02/03/25 80 01/04/25 50 12/07/24 PTH 275 02/03/25 358 01/04/25 351 12/07/24 Vitamin D, 25-OH, Total 66.0 11/16/24 48.2 05/04/24 Magnesium 2.0 02/03/25 2.0 01/04/25 1.8 12/07/24 Alkaline Phosphatase 65 02/03/25 65 01/04/25 63 12/07/24 NUTRITION ASSESSMENT Albumin 3.4 02/03/25 3.7 01/04/25 4.1 12/07/24 Potassium 5.1 02/03/25 5.2 01/04/25 6.2 01/02/25 eNPCR 1.20 12/21/24 0.66 11/23/24 1.10 10/21/24 Hemoglobin A1C 5.1 05/04/24 ADDITIONAL LABS WBC 11.52 (05/04/24) Hepatitis B Surface Ab >1,000 (11/07/24) >1,000 (05/04/24) ADDITIONAL COMMENT COMMENTS: 03/07/25 Patient is stable at rehab facility currently at [facility] despite neuropathy doing OK recovery from muscle [...] reviewed. Dietary adjustments made in conjunction with cashiers supervisor. 7.Transplant: patient is evaluated for kidney transplant. 01/31/2015 Patient is stable at rehab facility currently at [facility] despite neuropathy doing OK recovery from muscle [...] reviewed. Dietary adjustments made in conjunction with cashiers supervisor. 7.Transplant: The patient is being evaluated for [...] reviewed. Dietary adjustments made in conjunction with cashiers supervisor. 7.Transplant: The patient is being evaluated for a kidney transplant. Signed by: GUANAKO TAN MD on 03/07/2025 at 05:06:44 PM Transcribed by: GUANAKO TAN MD on 03/07/2025 at 05:06:44 PM documented in this encounter Plan of Treatment Not on file documented as of this encounter Visit Diagnoses Diagnosis End stage renal disease Dependence on renal dialysis documented in this encounter Care Teams Technical Mgr Relationship Specialty Start Date End Date Matias Tan MD [address] [place] [address] PCP - General Family Medicine 10/24/19 documented as of this encounter
--- OUTSIDE RECORDS SUMMARY | 2025-03-07 18:55 | XMS_ITS | Encounter Summary ---
Author Organization [facility] [place], Address [address] [place] [address] Phone Care Team Providers Care Aquaculture Farmer Name Role Phone Matias Tan MD Primary Care Provider +1- [phone] Encounter Details Date Type Department Care Team (Late st Contact Info) Description 02/02/2024 Documentation Only [facility], [address] [place] [phone] [address] [place] [address] Social History Tobacco Use Types [...] on filedocumented in this encounter Care Teams Aquaculture Farmer Relationship Specialty Start Date End Date Matias Tan MD [address] [place] [address] PCP - General Family Medicine 10/24/19 documented as of this encounter
--- OUTSIDE RECORDS SUMMARY | 2025-03-07 18:55 | XMS_ITS | Encounter Summary ---
Author Organization [facility] Address [address] [place] [address] Care Team Providers Care Insurance Underwriter Sales Name Role Phone Yulia Smart MD Primary Care Provider Encounter Details Date Type Department Care Team (Late st Contact Info) Description 01/13/2025 Lab Requisition [facility] - Main Lab [address] [facility]ly [facility], [facility] [place] [address] Yulia Smart MD [address] [place] [address] Encounter for other general examination Social History [...] K/mcL LAB HEMETOLOGY METHOD 01/13/2025 11:17 AM [facility] RBC 3.40(L) 4.50 - 5.50 M/mcL LAB HEMETOLOGY METHOD 01/13/2025 11:17 AM [facility] Hemoglobin 10.6(L) 13.5 - 17.5 g/dL LAB HEMETOLOGY METHOD 01/13/2025 11:17 AM [facility] Hematocrit 30.8(L) 42.0 - 54.0 % LAB HEMETOLOGY METHOD 01/13/2025 11:17 AM [facility] MCV 89.8 79.0 - 98.0 FL LAB HEMETOLOGY METHOD 01/13/2025 11:17 AM [facility] MCH 30.9 27.0 - 32.0 pcg LAB HEMETOLOGY METHOD 01/13/2025 11:17 AM [facility] MCHC 34.4 32.0 - 37.0 g/dL LAB HEMETOLOGY METHOD 01/13/2025 11:17 AM [facility] RDW 14.5 11.0 - 15.0 % LAB HEMETOLOGY METHOD 01/13/2025 11:17 AM [facility] Platelets 105(L) 130 - 400 K/mcL LAB HEMETOLOGY METHOD 01/13/2025 11:17 AM [facility] MPV 11.5(H) 7.0 - 11.0 FL LAB HEMETOLOGY METHOD 01/13/2025 11:17 AM [facility] NRBC 0.0 <1.0 % LAB HEMETOLOGY METHOD 01/13/2025 11:17 AM [facility] NRBC Absolute 0.00 <0.10 K/mcL LAB HEMETOLOGY METHOD 01/13/2025 11:17 AM [facility] Neutrophils Relative 49.1 % LAB HEMETOLOGY METHOD 01/13/2025 11:17 AM [facility] Lymphocytes Relative 31.3 % LAB HEMETOLOGY METHOD 01/13/2025 11:17 AM [facility] Monocytes Relative 13.0 % LAB HEMETOLOGY METHOD 01/13/2025 11:17 AM [facility] Eosinophils Relative 6.0 % LAB HEMETOLOGY METHOD 01/13/2025 11:17 AM [facility] Basophils Relative 0.4 % LAB HEMETOLOGY METHOD 01/13/2025 11:17 AM [facility] Immature Granulocytes Relative 0.2 % LAB HEMETOLOGY METHOD 01/13/2025 11:17 AM [facility] Neutrophils Absolute 2.38 1.50 - 7.00 K/mcL LAB HEMETOLOGY METHOD 01/13/2025 11:17 AM [facility] Lymphocytes Absolute 1.52 1.00 - 5.00 K/mcL LAB HEMETOLOGY METHOD 01/13/2025 11:17 AM [facility] Monocytes Absolute 0.63 0.20 - 1.00 K/mcL LAB HEMETOLOGY METHOD 01/13/2025 11:17 AM [facility] Eosinophils Absolute 0.29 0.00 - 0.50 K/mcL LAB HEMETOLOGY METHOD 01/13/2025 11:17 AM [facility] Basophils Absolute 0.02 0.00 - 0.20 K/mcL LAB HEMETOLOGY METHOD 01/13/2025 11:17 AM [facility] Immature Granulocytes Absolute 0.01 0.00 - 0.03 K/mcL LAB HEMETOLOGY METHOD 01/13/2025 11:17 AM [facility] Blood Venous blood specimen / Unknown Venipuncture / Unknown 01/13/2025 5:26 AM EDT 01/13/2025 10:00 AM EDT us Yulia Smart MD LAB BLOOD ORDERABLES Final Resu lt Performing Organization Address City/[facility]/ZIP Co de Phone Number [facility] [address] [place] [address], [place] [phone] * (ABNORMAL) Magnesium (01/13/2025 5:26 AM EDT) Magnesium 1.8(L) 1.9 - 2.6 mg/dL LAB CHEMISTRY METHOD 01/13/2025 12:11 PM EDT [facility] Blood Venous blood specimen / Unknown Venipuncture / Unknown 01/13/2025 5:26 AM EDT 01/13/2025 10:00 AM EDT us Yulia Smart MD LAB BLOOD ORDERABLES Final Resu lt Performing Organization Address [facility]/ZIP Nc de Phone Number [facility] [address] [place] [address], [place] [phone] * Hemoglobin A1c (01/13/2025 5:26 AM EDT) Hemoglobin A1C 5.6 <6.5 % LAB CHEMISTRY METHOD 01/13/2025 12:43 PM EDT [facility] Mean Bld Glu Estim. 114 mg/dL LAB CHEMISTRY METHOD 01/13/2025 12:43 PM EDT [facility] Blood Venous blood specimen / Unknown Venipuncture / Unknown 01/13/2025 5:26 AM EDT 01/13/2025 10:00 AM EDT us Yulia Smart MD LAB BLOOD ORDERABLES Final Resu lt Performing Organization Address City/[facility]/ZIP Co de Phone Number [facility] [address] [place] [address], [place] [phone] * (ABNORMAL) Comprehensive metabolic panel (01/13/2025 5:26 AM EDT) Sodium 129(L) 133 - 145 mmol/L LAB CHEMISTRY METHOD 01/13/2025 12:12 PM [facility] Potassium 3.6 3.5 - 5.5 mmol/L LAB CHEMISTRY METHOD 01/13/2025 12:12 PM [facility] Chloride 85(L) 96 - 110 mmol/L LAB CHEMISTRY METHOD 01/13/2025 12:12 PM [facility] CO2 28 21 - 32 mmol/L LAB CHEMISTRY METHOD 01/13/2025 12:12 PM [facility] Anion Gap 16(H) 3 - 11 LAB CHEMISTRY METHOD 01/13/2025 12:12 PM [facility] Glucose 90 70 - 100 mg/dL LAB CHEMISTRY METHOD 01/13/2025 12:12 PM [facility] BUN 77(H) 5 - 25 mg/dL LAB CHEMISTRY METHOD 01/13/2025 12:12 PM [facility] Creatinine 10.50(H) 0.70 - 1.30 mg/dL LAB CHEMISTRY METHOD 01/13/2025 12:12 PM [facility] eGFR 5(L) >=60 mL/min/1 .73m2 LAB CHEMISTRY METHOD 01/13/2025 12:12 PM [facility] Comment:Calculation based on the??Chronic Kidney Disease Epidemiology Collaboration (CKD-EPI) equation refit??without adjustment for race. BUN/Creatinine Ratio 7.3 LAB CHEMISTRY METHOD 01/13/2025 12:12 PM [facility] Calcium 7.2(L) 8.5 - 10.5 mg/dL LAB CHEMISTRY METHOD 01/13/2025 12:12 PM [facility] AST (SGOT) 76(H) 10 - 42 unit/L LAB CHEMISTRY METHOD 01/13/2025 12:12 PM EDT [facility] ALT (SGPT) 36 10 - 60 unit/L LAB CHEMISTRY METHOD 01/13/2025 12:12 PM EDT [facility] Alkaline Phosphatase 65 42 - 121 unit/L LAB CHEMISTRY METHOD 01/13/2025 12:12 PM EDT [facility] Total Protein 5.9(L) 6.0 - 8.0 g/dL LAB CHEMISTRY METHOD 01/13/2025 12:12 PM EDT [facility] Albumin 2.9(L) 3.2 - 5.0 g/dL LAB CHEMISTRY METHOD 01/13/2025 12:12 PM [facility] Total Bilirubin 0.4 0.0 - 1.4 mg/dL LAB CHEMISTRY METHOD 01/13/2025 12:12 PM EDT [facility] Blood Venous blood specimen / Unknown Venipuncture / Unknown 01/13/2025 5:26 AM EDT 01/13/2025 10:00 AM EDT us uYlia Smart MD LAB BLOOD ORDERABLES Final Resu lt [facility] [address] [place] [address], [place] [phone] documented in this encounter Visit Diagnoses Diagnosis Encounter for other general examination documented in this encounter Care Teams Insurance Underwriter Sales Relationship Specialty Start Date End Date Yulia Smart MD [address] [place] [address] PCP - General Hospitalist Medicine 01/13/25 documented as of this encounter
--- OUTSIDE RECORDS SUMMARY | 2025-03-07 18:55 | XMS_ITS | Encounter Summary ---
Author Organization [facility], Address [address] [place] [address] Phone Care Team Providers Care Tilting Saw Operator Name Role Phone Matias Tan MD Primary Care Provider [phone]- [phone] Reason for Visit * Reason Comments Med Refill Encounter Details Date Type Department Care Team (Late st Contact Info) Description 05/08/2024 Refill [facility] [address] [place] [address] Gabriela Hernandez PA Social History Tobacco Use [...] on filedocumented in this encounter Care Teams Tilting Saw Operator Relationship Specialty Start Date End Date Matias Tan MD [facility] [address] [facility] [place] [address] PCP - General Family Medicine 10/24/19 documented as of this encounter
--- OUTSIDE RECORDS SUMMARY | 2025-03-07 18:55 | XMS_ITS | Clinical Summary ---
Author Organization [address] [facility] Address [address] [place] [address] Phone Care Team Providers Care Gold Nib Grinder Name Role Phone Yulia Smart MD Primary Care Provider [phone] Encounters Date Type Department Care Team Description 01/18/2025 Lab Requisition [facility] [address] [place] [phone] Yulia Smart MD Encounter for other general examination 01/14/2025 Lab Requisition [facility] [address] [place] [phone] Yulia Smart MD Encounter for other general examination 01/13/2025 Lab Requisition [facility] [address] [place] [phone] Yulia Smart MD Encounter for other general [...] LAB HEMETOLOGY METHOD 01/18/2025 7:10 AM [facility] MCV 87.1 79.0 - 98.0 FL LAB HEMETOLOGY METHOD 01/18/2025 7:10 AM [facility] MCH 30.6 27.0 - 32.0 pcg LAB HEMETOLOGY METHOD 01/18/2025 7:10 AM [facility] MCHC 35.2 32.0 - 37.0 g/dL LAB HEMETOLOGY METHOD 01/18/2025 7:10 AM [facility] RDW 14.3 11.0 - 15.0 % LAB HEMETOLOGY METHOD 01/18/2025 7:10 AM [facility] Platelets 251 130 - 400 K/mcL LAB HEMETOLOGY METHOD 01/18/2025 7:10 AM [facility] MPV 11.1(H) 7.0 - 11.0 FL LAB HEMETOLOGY METHOD 01/18/2025 7:10 AM [facility] NRBC 0.0 <1.0 % LAB HEMETOLOGY METHOD 01/18/2025 7:10 AM [facility] NRBC Absolute 0.00 <0.10 K/mcL LAB HEMETOLOGY METHOD 01/18/2025 7:10 AM [facility] Neutrophils Relative 77.1 % LAB HEMETOLOGY METHOD 01/18/2025 7:10 AM [facility] Lymphocytes Relative 8.3 % LAB HEMETOLOGY METHOD 01/18/2025 7:10 AM [facility] Monocytes Relative 13.5 % LAB HEMETOLOGY METHOD 01/18/2025 7:10 AM [facility] Eosinophils Relative 0.0 % LAB [...] LAB HEMETOLOGY METHOD 01/18/2025 7:10 AM [facility] Eosinophils Absolute 0.00 0.00 - 0.50 K/mcL LAB HEMETOLOGY METHOD 01/18/2025 7:10 AM [facility] Basophils Absolute 0.00 0.00 - 0.20 K/mcL LAB HEMETOLOGY METHOD 01/18/2025 7:10 AM [facility] Immature Granulocytes Absolute 0.11(H) 0.00 - 0.03 K/mcL LAB HEMETOLOGY METHOD 01/18/2025 7:10 AM [facility] Blood Venous blood specimen / Unknown Venipuncture / Unknown 01/18/2025 5:06 AM EDT 01/18/2025 6:20 AM EDT us Yulia Smart MD LAB BLOOD ORDERABLES Final Resu lt [facility] [address] [place] [address], * Thyroid stimulating hormone (01/18/2025 5:06 AM EDT) TSH 1.94 0.40 - 4.00 mcIU/mL LAB CHEMISTRY METHOD 01/18/2025 9:08 AM EDT [facility] Blood Venous blood specimen / Unknown Venipuncture / Unknown 01/18/2025 5:06 AM EDT 01/18/2025 6:20 AM EDT us Yulia Smart MD LAB BLOOD ORDERABLES Final Resu lt Performing Organization Address [facility] de Phone Number [facility] [address] [place] [address], [place] [phone] * (ABNORMAL) Vitamin B12 (01/18/2025 5:06 AM EDT) [facility] Vitamin B-12 1,241(H) 250 - 900 pcg/mL LAB CHEMISTRY METHOD 01/18/2025 7:36 AM EDT [facility] Blood Venous blood specimen / Unknown Venipuncture / Unknown 01/18/2025 5:06 AM EDT 01/18/2025 6:20 AM EDT us Yulia Smart MD LAB BLOOD ORDERABLES Final Resu lt Performing Organization Address [facility] de Phone Number [facility] [address] [place] [address], [place] [phone] * Ammonia (01/18/2025 5:06 AM EDT) [facility] Ammonia 28 11 - 35 mcmol/L LAB CHEMISTRY METHOD 01/18/2025 6:53 AM EDT [facility] Blood Venous blood specimen / Unknown Venipuncture / Unknown 01/18/2025 5:06 AM EDT 01/18/2025 6:20 AM EDT us Yulia Smart MD LAB BLOOD ORDERABLES Final Resu lt Performing Organization Address City/[facility]/ZIP Co de Phone Number [facility] [address] [place] [address], * (ABNORMAL) Comprehensive metabolic panel (01/18/2025 5:06 AM EDT) Only the most recent of2 resultswithin the time period is included. Sodium 123(L) 133 - 145 mmol/L LAB CHEMISTRY METHOD 01/18/2025 7:56 AM EDT [facility] Potassium 5.2 3.5 - 5.5 mmol/L LAB CHEMISTRY METHOD 01/18/2025 7[facility] Chloride 89(L) 96 - 110 mmol/L LAB CHEMISTRY METHOD 01/18/2025 7:56 AM [facility] CO2 21 21 - 32 mmol/L LAB CHEMISTRY METHOD 01/18/2025 7:56 AM [facility] Anion Gap 13(H) 3 - 11 LAB CHEMISTRY METHOD 01/18/2025 7:56 AM [facility] Glucose 174(H) 70 - 100 mg/dL LAB CHEMISTRY METHOD 01/18/2025 7:56 AM [facility] BUN 96(H) 5 - 25 mg/dL LAB CHEMISTRY METHOD 01/18/2025 7:56 AM [facility] Creatinine 9.44(H) 0.70 - 1.30 mg/dL LAB CHEMISTRY METHOD 01/18/2025 7:56 AM [facility] eGFR 5(L) >=60 mL/min/1. 73m2 LAB CHEMISTRY METHOD 01/18/2025 7:56 AM [facility] Comment:Calculation based on the??Chronic Kidney Disease Epidemiology Collaboration (CKD-EPI) equation refit??without adjustment for race. BUN/Creatinine Ratio 10.2 LAB CHEMISTRY METHOD 01/18/2025 7:56 AM [facility] Calcium 7.8(L) 8.5 - 10.5 mg/dL LAB CHEMISTRY METHOD 01/18/2025 7:56 AM EDT [facility] AST (SGOT) 13 10 - 42 unit/L LAB CHEMISTRY METHOD 01/18/2025 7:56 AM [facility] Comment:Results verified by repeat testing ALT (SGPT) 21 10 - 60 unit/L LAB CHEMISTRY METHOD 01/18/2025 7:56 AM EDT [facility] Alkaline Phosphatase 52 42 - 121 unit/L LAB CHEMISTRY METHOD 01/18/2025 7[facility] Total Protein 5.3(L) 6.0 - 8.0 g/dL LAB CHEMISTRY METHOD 01/18/2025 7:56 AM [facility] Albumin 2.6(L) 3.2 - 5.0 g/dL LAB CHEMISTRY METHOD 01/18/2025 7:56 AM [facility] Total Bilirubin 1.0 0.0 - 1.4 mg/dL LAB CHEMISTRY METHOD 01/18/2025 7:56 AM [facility] Comment:Results verified by repeat testing Blood Venous blood specimen / Unknown Venipuncture / Unknown 01/18/2025 5:06 AM EDT 01/18/2025 6:20 AM EDT us Yulia Smart MD LAB BLOOD ORDERABLES Final Resu lt [facility] [address] [place] [address], * (ABNORMAL) Phosphorus (01/14/2025 5:58 AM EDT) Phosphorus 5.6(H) 2.5 - 4.5 mg/dL LAB CHEMISTRY METHOD 01/14/2025 12:17 PM EDT [facility] Blood Venous blood specimen / Unknown Venipuncture / Unknown 01/14/2025 5:58 AM EDT 01/14/2025 9:53 AM EDT us Yulia Smart MD LAB BLOOD ORDERABLES Final Resu lt Performing Organization Address City/[facility]/ZIP Co de Phone Number [facility] [address] [place] [address], [place] [phone] * (ABNORMAL) Magnesium (01/13/2025 5:26 AM EDT) [facility] Magnesium 1.8(L) 1.9 - 2.6 mg/dL LAB CHEMISTRY METHOD 01/13/2025 12:11 PM EDT [facility] Blood Venous blood specimen / Unknown Venipuncture / Unknown 01/13/2025 5:26 AM EDT 01/13/2025 10:00 AM EDT us Yulia Smart MD LAB BLOOD ORDERABLES Final Resu lt Performing Organization Address [facility] Co de Phone Number [facility] [address] [place] [address], [place] [phone] * Hemoglobin A1c (01/13/2025 5:26 AM EDT) [facility] Hemoglobin A1C 5.6 <6.5 % LAB CHEMISTRY [...] ORDERABLES Final Resu lt Performing Organization Address City/[facility]/ZIP Co de Phone Number [facility] [address] [place] [address], [place] [phone] from Last 3 Months Insurance [facility] [address] MEDICARE Care Teams Gold Nib Grinder Relationship Specialty Start Date End Date Yulia Smart MD [address] [place] [address] PCP - General Hospitalist Medicine 01/13/25
--- OUTSIDE RECORDS SUMMARY | 2025-03-07 18:55 | XMS_ITS | Encounter Summary ---
Author Organization [facility], Address [address] [place] [address] Phone Care Team Providers Care Offset Press Operator Name Role Phone Matias Tan MD Primary Care Provider [phone]- [phone] Reason for Visit * Reason Comments Med Refill Encounter Details Date Type Department Care Team (Late st Contact Info) Description 12/28/2024 Refill [facility] [address] [place] [phone] Sawyer Davis MD [address] [place] [address] Social History Tobacco Use Types [...] x 3 34.5(L) 42.0 - 54.0 % [facility] 12/28/2024 12/29/2024 9:1 7 AM EDT Narrative [facility] - 12/29/2024 Unless otherwise specified, test(s) performed at: [facility], [address] [place] [address] PARTS IDENTIFIER: Blane Ramsay M.D. For any questions, please call customer service at FREQUENCY:OTHER Resulting Agency Comment Specimen source: Blood us Denys Mueller MD LAB BLOOD ORDERABLES Final Re sult [facility] See order comments or contact performing lab Unknown, [place] documented in this encounter Visit Diagnoses Not on filedocumented in this encounter Care Teams Offset Press Operator Relationship Specialty Start Date End Date Matias Tan MD [address] [place] [address] PCP - General Family Medicine 10/24/19 documented as of this encounter
--- OUTSIDE RECORDS SUMMARY | 2025-03-07 18:55 | XMS_ITS | Encounter Summary ---
Author Organization [facility] Address [address] [place] [address] Care Team Providers Care Contour Grinder Name Role Phone Yulia Smart MD Primary Care Provider Encounter Details Date Type Department Care Team (Late st Contact Info) Description 01/14/2025 Lab Requisition [facility] - Main Lab [address] [place] [address] Yulia Smart MD [address] [place] [address] Encounter for other general examination Social History [...] LAB CHEMISTRY METHOD 01/14/2025 12:17 PM EDT [facility] ([facility]) [facility] Blood Venous blood specimen / Unknown Venipuncture / Unknown 01/14/2025 5:58 AM EDT 01/14/2025 9:53 AM EDT us Yulia Smart MD LAB BLOOD ORDERABLES Final Resu lt [facility] [place] ([facility] LAB [address] [place] [address], documented in this encounter Visit Diagnoses Diagnosis Encounter for other general examination documented in this encounter Care Teams Contour Grinder Relationship Specialty Start Date End Date Yulia Smart MD [address] [place] [phone] PCP - General Hospitalist Medicine 01/13/25 documented as of this encounter
--- OUTSIDE RECORDS SUMMARY | 2025-03-07 18:55 | XMS_ITS | Encounter Summary ---
Author Organization [facility] [place], Address [address] [place] [address] Phone Care Team Providers Care Angiography Nurse Name Role Phone Matias Tan MD Primary Care Provider +1- [phone] Reason for Visit * Reason Comments Med Refill Encounter Details Date Type Department Care Team (Late st Contact Info) Description 11/28/2022 Refill [facility] [place] [address] [place] [address] Guanako Mercer MD [address] [place] [address] Social History Tobacco Use Types [...] on filedocumented in this encounter Care Teams Angiography Nurse Relationship Specialty Start Date End Date Matias Tan MD [address] [place] [address] PCP - General Family Medicine 10/24/19 documented as of this encounter
--- OUTSIDE RECORDS SUMMARY | 2025-03-07 18:55 | XMS_ITS | Encounter Summary ---
Author Organization [facility] [place], Address [address] [place] [address] Phone Care Team Providers Care Wind Turbine Installer Name Role Phone Matias Tan MD Primary Care Provider +1- [phone] Reason for Visit * Reason Onset Date Comments Med Refill 12/20/2022 Encounter Details Date Type Department Care Team (Late st Contact Info) Description 12/20/2022 Refill [facility] [address] [place] [address] Kb Sung MD Social History Tobacco Use [...] on filedocumented in this encounter Care Teams Wind Turbine Installer Relationship Specialty Start Date End Date Matias Tan MD [address] [place] [address] PCP - General Family Medicine 10/24/19 documented as of this encounter
--- OUTSIDE RECORDS SUMMARY | 2025-03-07 18:55 | XMS_ITS | Clinical Summary ---
Author Organization [facility], Address [address] [place] [address] Phone Care Team Providers Care Destination Sign Repairer Name Role Phone Matias Tan MD Primary Care Provider [phone]- [phone] Allergies Active Allergy Reactions Criticality Noted Date [...] HOURS NEEDED FOR PAIN 2 Active B Cbwkxuo-F-Xcwue Acid (Dialyvite 800) 0.8 MG tablet Take [...] Encounters Date Type Department Care Team Description 03/01/2025 Treatment [facility] [address] [place] [address] Guanako Mercer MD End stage renal disease; Dependence on renal dialysis 02/03/2025 Orders Only [facility] [address] [address] Denys Mueller MD 01/31/2025 Treatment [facility] [address] [place] [address] Guanako Mercer MD End stage renal disease; Dependence on renal dialysis 01/04/2025 Orders Only [facility] [address] [address] Denys Mueller MD 01/02/2025 Orders Only [facility] [address] [address] Denys Mueller MD 01/02/2025 Treatment [facility] [address] [place] [address] Tiffani Olson FNP-C End stage renal disease; Dependence on renal dialysis 12/28/2024 Treatment [facility] [address] [place] [address] Tiffani Olson FNP-C End stage renal disease; Dependence on renal dialysis 12/28/2024 Refill [facility] [address] [address] Sawyer Davis MD 12/26/2024 Orders Only [facility] [address] [address] Denys Mueller MD 12/23/2024 Treatment [facility] [address] [place] [address] Tiffani Olson FNP-C End stage renal disease; Dependence on renal dialysis 12/21/2024 Orders Only [facility] [address] [address] Denys Mueller MD 12/19/2024 Orders Only [facility] [address] [address] Denys Mueller MD 12/16/2024 Treatment [facility] [address] [place] [address] Sawyer Davis MD End stage renal disease; Dependence on renal dialysis 12/14/2024 Orders Only [facility] [address] [address] Denys Mueller MD 12/14/2024 Treatment [facility], [address] [place] [address] Tiffani Olson FNP-C 12/13/2024 Treatment [facility] [address] [place] [address] Missy Izquierdo APRN 12/12/2024 Orders Only [facility] [address] [address] Denys Mueller MD from Last 3 Months [...] 11/15/2024 8:10 AM EST Plan of Treatment Health Maintenance Due Date [...] 12/19/2024 HEMATOLOGY Routine 12/14/2024 CHEMISTRY Routine 12/12/2024 SPECIAL CHEMISTRY Routine 05/04/2024 from Last 3 Months or Most Recently Relevant to Health Maintenance Results * HD KINETICS (02/03/2025) Only the most recent of2 resultswithin the time period is included. % Urea Reduction 77 65 - 80 % [facility] 02/03/2025 02/07/2025 8:5 8 AM EDT Narrative Resulting Agency Comment Specimen source: Plasma Denys Mueller MD LAB BLOOD ORDERABLES Final Re sult Performing Organization Address City/[facility] Co de Phone Number Heap See order comments or contact performing lab Unknown, [place] * POST CHEMISTRY (02/03/2025) Only the most recent of2 resultswithin the time period is included. BUN Post Dialysis 8 6 - 19 mg/dL [facility] 02/03/2025 02/07/2025 8:5 8 AM EDT Narrative [facility] - 02/07/2025 Unless otherwise specified, test(s) performed at: [facility], [address] [place], [place] [id number] OUTREACH DIRECTOR: Blane Ramsay M.D. For any questions, please call customer service at FREQUENCY:MONTHLY Resulting Agency Comment Specimen source: Plasma Denys Mueller MD LAB BLOOD ORDERABLES Final Re sult Performing Organization Address [facility] Co de Phone Number Heap See order comments or contact performing lab Unknown, [place] * IMMUNO CHEMISTRY (02/03/2025) Only the most recent of2 resultswithin the time period is included. Hep B Surface Ag Negative Negative [facility] 02/03/2025 02/07/2025 8:4 7 AM EDT Narrative [facility] - 02/07/2025 Unless otherwise specified, test(s) performed at: [facility], [address] [place] [id number] OUTREACH DIRECTOR: Blane Ramsay M.D. For any questions, please call customer service at FREQUENCY:MONTHLY Resulting Agency Comment Specimen source: Serum Denys Mueller MD LAB BLOOD ORDERABLES Final Re sult [facility] See order comments or contact performing lab Unknown, [place] * (ABNORMAL) HEMATOLOGY (02/03/2025) Only the most recent of5 resultswithin the time period is included. Pathologist [facility] Hemoglobin 8.0(L) 14.0 - 18.0 g/dL [facility] Comment: Verified by repeat analysis. Hemoglobin x 3 24(L) 42.0 - 54.0 % [facility] 02/03/2025 02/07/2025 9:4 8 AM EDT Narrative [facility] - 02/07/2025 Unless otherwise specified, test(s) performed at: [facility], [address] [place] [id number] OUTREACH DIRECTOR: Blane Ramsay M.D. For any questions, please call customer service at FREQUENCY:MONTHLY Resulting Agency Comment Specimen source: Blood Denys Mueller MD LAB BLOOD ORDERABLES Final Re sult Performing Organization Address [facility]/ZIP Co de Phone Number [facility] See order comments or contact performing lab Unknown, [place] * (ABNORMAL) [facility] Chemistry (02/03/2025) Only the most recent of9 resultswithin the time period is included. BUN [...] 02/03/2025 02/07/2025 8:4 7 AM EDT Narrative [facility] - 02/07/2025 Unless otherwise specified, test(s) performed at: [facility], [address] [place] [address] OUTREACH DIRECTOR: Blane Ramsay M.D. For any questions, please call customer service at FREQUENCY:MONTHLY Resulting Agency Comment Specimen source: Serum Denys Mueller MD LAB BLOOD ORDERABLES Final Re sult [facility] behaview [facility] See order comments or contact performing lab Unknown, [place] * [facility] Lab Results (02/03/2025) Only the most recent of2 resultswithin the time period is included. eKt/V ([place]all) 1.59 [facility] WSTDKT/V 0.8 [facility] spKt/V (Daugirdas II) 1.82 [facility] 02/03/2025 02/03/2025 [facility] Ordering Provider LAB BLOOD ORDERABLES Final Result [facility] Contact Performing lab Unknown, [place] * SPECIAL CHEMISTRY (05/04/2024) Hemoglobin A1C 5.1 4.8 - 5.9 % [facility] 05/04/2024 05/05/2024 9:5 7 AM EDT Narrative [facility] - 05/05/2024 Unless otherwise specified, test(s) performed at: [facility], [address] [place] [address] OUTREACH DIRECTOR: Blane Ramsay M.D. For any questions, please call customer service at FREQUENCY:MONTHLY Resulting Agency Comment Specimen source: Blood Denys Mueller MD LAB BLOOD BANK TEST ORDERABLE S Final Result [facility] See order comments or contact performing lab Unknown, [place] from Last 3 Months or Most Recently Relevant to Health Maintenance Insurance Medicare [facility] Medicare [facility] Care Teams Destination Sign Repairer Relationship Specialty Start Date End Date Matias Tan MD [facility] [address] [place] [address] PCP - General Family Medicine 10/24/19
[2025-03-07 20:00] LABS: Reflex Lactate? Lactic Acid Added
[2025-03-07] MEDS: Doxycycline Hyclate 100 MG in 0.9 % Sodium Chloride 250 ML 166.67 MG IV (20:31)
[2025-03-07 20:34] LABS: ~Lactic Acid-LAB USE ONLY 3.7 mmol/L (0.5-2.0)
--- NOTE | 2025-03-07 20:39 | PC.NURSE ---
Addendum entered by Doug White RN 03/08/25 03:52: approximately a few minutes after 2100, while this nurse was in next room, notified of patient sitting at end of bed having removed his HFNC with HR sinus in the 30s-40s. following events occurred in rapid succession. HFNC with NRB applied and patient sat back in bed with assist, still awake but stuporous. BOAT DOCK OPERATOR called. unable to get an O2 sat read on patient, very quickly became apneic. Dr Solorio provided CPR, BVM ventilations provided by RT Escobar. see code sheet. Original Note: found to be 84$ on 7L oxymask. no wheezing. pt calm appearing sitting upright in bed but states he feels mildly SOB. R at bedside initiated HFNC 80% 50L with SpO2 improvement to 98%.
--- NOTE | 2025-03-07 21:02 | PM.IMHP ---
History of Present Illness Date of Service: 03/07/25 <ISIDRO Solo Last Filed: 03/07/25 21:41> Attending physician on admission: James Bobby <ISIDRO Solo Last Filed: 03/07/25 21:41> Chief Complaint: Respiratory distress <ISIDRO Solo Last Filed: 03/07/25 21:41> Patient is a 70-year-old male with a past medical history significant for ESRD on HD with frequent admissions due to noncompliance with dialysis, mood disorder, stage I COPD, insulin-dependent diabetes, hypothyroid, HLD, chronic anemia, GERD and HTN, who presented to the ED via EMS for ?cardiac arrest ?however the patient was found with a pulse and was in respiratory distress, hypoxic and diaphoretic. He was found to be 80% on room air, improved to 88% via non-rebreather, given a nebulizer and was maintaining at 4 L via NC in the ED, now recently on high-flow. He denies any chest pain or shortness of breath this morning. He has had a productive cough but no hemoptysis. He did go for a hemodialysis yesterday and was feeling okay at that time. He reports that he produces minimal urine, no urinary symptoms. The patient is a poor historian and also was having conversational dyspnea, therefore a full history was unable to be obtained. <ISIDRO Solo Last Filed: 03/07/25 21:41> Review of Systems Constitutional: Constitutional: Denies chills and Denies fever(s) <ISIDRO Solo Last Filed: 03/07/25 21:41> Eyes: Eyes: Denies change in vision and Denies photophobia <ISIDRO Solo Last Filed: 03/07/25 21:41> ENT: Denies nasal congestion, Denies nasal discharge and Denies sore throat <ISIDRO Solo Last Filed: 03/07/25 21:41> Cardiovascular: Cardiovascular: Denies chest pain, Denies rapid heart rate, Denies leg edema, Denies lightheadedness and Reports dyspnea <Nina Nowak PA-C - Last Filed: 03/07/25 21:41> Respiratory: Respiratory: Reports chest congestion, Reports cough, Reports dyspnea and Denies wheezing <Nina Nowak PA-C - Last Filed: 03/07/25 21:41> Integumentary/Breasts: Skin/Breast: Denies rash <Nina Nowak PA-C - Last Filed: 03/07/25 21:41> Neurologic: Denies confusion <Nina Nowak PA-C - Last Filed: 03/07/25 21:41> Psychiatric: Psychiatric: Denies confusion <Nina Nowak PA-C - Last Filed: 03/07/25 21:41> Allergic/Immunologic: Allergic/Immunologic: Denies wheezing <Nina Nowak PA-C - Last Filed: 03/07/25 21:41> [facility] Medical History: Medical History Hypothyroidism Influenza A CHF (congestive heart failure) Acute anemia Multifactorial gait disorder Pneumonia End stage renal disease on dialysis Occult blood positive stool Anemia Internal jugular vein thrombosis Abnormality of gait ESRD needing dialysis Secondary hyperparathyroidism (of renal origin) Anemia in chronic kidney disease DONIS (acute kidney injury) Diabetes Kidney failure HTN (hypertension) <Nina Nowak PA-C - Last Filed: 03/07/25 21:41> Social History: Social History Household Members: Spouse Housing: House Are you a primary multi care technician to a significant other at home: No Do you presently have visiting nurse or other home services: No Alcohol intake: former Comment: sitter in place Patient Tobacco Use Status: Never used Tobacco Cigarette Packs Per Day: 0 Cigarettes Per Day: 0 Years Smoked: NA e-Cigarette/Vaping Use: Never Used Second Hand Smoke Exposure: No Advance Directives: Yes Advance Directives on File: Yes Advance Directives Date on File: 09/07/23 Do you have a plan to hurt others: No Plan service: No <Nina Nowak PA-C - Last Filed: 03/07/25 21:41> Meds Allergies/Adverse reactions: Allergies Allergy/AdvReac Type Severity Reaction Status Date / Time Penicillins [PENICILLINS] Allergy Unknown RASH Verified 03/07/25 17:27 tramadol [From ULTRAM] Allergy Unknown RASH Verified 03/07/25 17:27 trazodone [TRAZODONE] Allergy Unknown PRIAPISM Verified 03/07/25 17:27 risperidone [RISPERIDONE] AdvReac Severe dizzy, EPS Verified 03/07/25 17:27 <Nina Nowak PA-C - Last Filed: 03/07/25 21:41> Active Medications: Current Medications Acetaminophen (Acetaminophen 325 Mg Tablet) 975 mg PO Q6H PRN PRN Reason: Pain, Mild 1-3,fever,headache Albuterol/Ipratropium (Albuterol/Iprat 2.5/0.5mg 3 Ml Ampul.Neb) 3 ml INHALE Q4H PRN PRN Reason: Shortness of Breath/Wheezing Alprazolam (Alprazolam 0.5 Mg Tablet) 1 mg PO BID FRANCINE Alprazolam (Alprazolam 0.5 Mg Tablet) 0.5 mg PO DAILY PRN PRN Reason: Anxiety Calcium Carbonate (Calcium Carbonate 750 Mg Tab.Chew) 750 mg PO Q4H PRN PRN Reason: Heartburn Dextrose (Dextrose 50 % 25 Gm/50 Ml Syringe) 25 gm IVPUSH Q15M PRN; Protocol PRN Reason: per Hypoglycemia Standing Ord. Glucose (Glucose Gel 15 Gm Gel..Gram.) 15 gm PO Q15M PRN; Protocol PRN Reason: per Hypoglycemia Standing Ord. Heparin Sodium (Porcine) (Heparin Sodium,Porcine 5,000 Unit/Ml Vial) 5,000 unit SUBCUT Q8H FRANCINE Hydromorphone HCl (Hydromorphone Hcl 2 Mg Tablet) 2 mg PO Q8H [facility] Insulin Glargine (Insulin Glargine,Hum.Rec.Anlog 100 Unit/Ml 10 Ml Vial) 5 unit SUBCUT BEDTIME FRANCINE Insulin Human Lispro (Insulin Lispro 100 Unit/Ml 3 Ml Vial) 0 unit SUBCUT QIDACHS [facility]; Protocol Magnesium Hydroxide (Milk Of Magnesia 30 Ml Oral.Susp) 30 ml PO DAILY PRN PRN Reason: Constipation Melatonin (Melatonin 3 Mg Tablet) 6 mg PO BEDTIME PRN PRN Reason: Insomnia Sodium Chloride (0.9 % Sodium Chloride Flush 3 Ml Syringe) 3 ml IVFLUSH QSHIFT [facility] <Nina Nowak PA-C - Last Filed: 03/07/25 21:41> Home medications: Home Medications ?Medication ?Instructions ?Recorded ?Confirmed ?Last Taken ?Type atenolol 100 mg tablet 1 tab PO DAILY 07/11/21 03/07/25 02/02/25 History blood sugar diagnostic (FreeStyle 07/11/21 10/30/24 10/30/24 09:00 History Lite Strips) levothyroxine 137 mcg tablet 1 tab PO DAILY@0600 07/11/21 03/07/25 02/02/25 History pen needle, diabetic 31 gauge x 07/11/21 10/30/24 10/30/24 09:00 History 5/16 (BD Ultra-Fine Short Pen Needle) atorvastatin 40 mg tablet 40 mg PO BEDTIME 02/22/24 03/07/25 02/02/25 History sodium zirconium cyclosilicate 10 10 g PO SUTUTHSA@0906/19/24 03/07/25 02/02/25 History gram oral powder packet (Lokelma) insulin lispro 100 unit/mL See Protocol subcut TIDAC PRN 10/30/24 03/07/25 10/30/24 09:00 History subcutaneous pen (Humalog KwikPen Blood Glucose (U-100) Insulin) sevelamer carbonate 800 mg tablet 1,600 mg PO TIDWM 01/09/25 03/07/25 02/02/25 History acetaminophen 325 mg tablet 650 mg PO Q6H PRN Fever Or Pain 02/13/25 03/07/25 Unknown History dextroamphetamine-amphetamine 20 20 mg PO BID 02/24/25 03/07/25 Unknown History mg tablet hydromorphone 4 mg tablet 4 mg PO Q3H PRN Pain 02/24/25 03/07/25 Unknown History ascorbic acid (vitamin C) 250 mg 250 mg PO DAILY 03/07/25 03/07/25 Unknown History tablet benztropine 0.5 mg tablet 0.5 mg PO BID 03/07/25 03/07/25 Unknown History cholecalciferol (vitamin D3) 125 125 mcg PO SUTUTHSA 03/07/25 03/07/25 Unknown History mcg (5,000 unit) tablet clonazepam 1 mg tablet 1 mg PO BID 03/07/25 03/07/25 Unknown History vitamin B complex-vitamin C-folic 1 tab PO DAILY 03/07/25 03/07/25 Unknown History acid 0.8 mg tablet (Nephro-Fernanda) zinc sulfate 220 mg capsule 220 mg PO DAILY 03/07/25 03/07/25 Unknown History <ISIDRO Solo Last Filed: 03/07/25 21:41> Physical Exam Vital Signs and Narrative: Vital Signs: Last Vital Signs Temp 97.8 F 03/07/25 19:56 Pulse 88 03/07/25 19:56 Resp 35 H 03/07/25 20:36 BP 153/79 H 03/07/25 19:56 Pulse Ox 87 L 03/07/25 20:21 O2 Del Method Oxymask 03/07/25 20:21 O2 Flow Rate 10 03/07/25 20:21 Oxygen Flow Rate 6 03/07/25 17:17 BMI result Body Mass Index 26.0 <ISIDRO Solo Last Filed: 03/07/25 21:41> General: AOx3, conversational dyspnea Resp: diminished throughout, bilateral crackles, no wheezing CVS: S1, S2, RRR GI: +BS, NT, no distention Skin: Warm, dry Neuro: Cranial nerves II-XII grossly intact bilaterally. Motor grossly intact bilaterally Extremities: No LE pitting edema Psych: Appropriate affect <ISIDRO Solo Last Filed: 03/07/25 21:41> Const: General: No confusion <ISIDRO Solo Last Filed: 03/07/25 21:41> Orientation/consciousness: No confusion <ISIDRO Solo Last Filed: 03/07/25 21:41> Eyes: Direct Ophthalmoscopy: No photophobia <ISIDRO Solo Last Filed: 03/07/25 21:41> Neuro: General: No confusion <ISIDRO Solo Last Filed: 03/07/25 21:41> Results Labs CBC and Chem 7: 03/07/25 17:54 03/07/25 21:40 <ISIDRO Solo Filed: 03/07/25 21:41> Labs: Laboratory Results - last 24 hr 03/07/25 03/07/25 03/07/25 17:54 18:01 20:12 MCV 95.0 MCH 32.0 MCHC 33.7 RDW 15.6 Plt Count 295 MPV 10.3 Immature Gran % (Auto) 0.9 H Neut % (Auto) 88.8 H Lymph % (Auto) 3.9 L [place] % (Auto) 5.7 Eos % (Auto) 0.3 Baso % (Auto) 0.4 Lymph # (Auto) 1.1 L [place] # (Auto) 1.7 H Eos # (Auto) 0.1 Baso # (Auto) 0.1 Abs Immat Gran (auto) 0.27 H Absolute Neuts (auto) 25.6 H Absolute Nucleated RBC 0.000 Nucleated RBC % (auto) 0.0 Smear Tech's Comments VERIFIED PT 12.6 H INR 1.1 APTT 27.6 VBG pH 7.48 H VBG pCO2 42 VBG pO2 34 VBG HCO3 32 H VBG O2 Saturation 48.0 VBG Base Excess 8.2 Anion Gap 20 Estim Creat Clear Calc 7.9 Estimated GFR 7 Random Glucose 170 H Lactic Acid 2.2 H* Lactic Acid F/U @ 2Hr 3.7 H* Calcium 8.8 Total Bilirubin 0.9 AST 33 ALT 19 Alkaline Phosphatase 112 B-Natriuretic Peptide 64097 H Total Protein 7.5 Albumin 4.2 Influenza Type A (PCR) NEGATIVE Influenza Type B (PCR) NEGATIVE RSV RNA Qual (PCR) NEGATIVE SARS-CoV-2 RNA (RT-PCR) NEGATIVE <Nina Nowak PA-C - Last Filed: 03/07/25 21:41> Assessment and Plan (1) Sepsis: Status: Acute <ISIDRO Solo Last Filed: 03/07/25 21:41> (2) Acute hypoxic respiratory failure: Status: Acute <ISIDRO Solo Last Filed: 03/07/25 21:41> (3) Acute exacerbation of CHF (congestive heart failure): Status: Acute <ISIDRO Solo Last Filed: 03/07/25 21:41> (4) Multifocal pneumonia: Status: Acute <Nina Nowak PA-C - Last Filed: 03/07/25 21:41> Patient is a 70-year-old male with a past medical history significant for ESRD on HD with frequent admissions due to noncompliance with dialysis, mood disorder, stage I COPD, insulin-dependent diabetes, hypothyroid, HLD, chronic anemia, GERD and HTN, who presented to the ED via EMS for ?cardiac arrest ?however the patient was found with a pulse and was in respiratory distress, hypoxic and diaphoretic. sepsis and acute hypoxic respiratory failure secondary to acute decompensated CHF exacerbation with superimposed multifocal pneumonia, no shock - WBC 28.9, lactic acid 2.2, 3.7 on repeat, blood cultures x2 pending - chest x-ray with multifocal bilateral pulmonary opacities secondary to infection and/or edema - started on vancomycin, Zosyn and doxycycline in ED, switch to vancomycin and cefepime - BNP 89338 - Lasix 120 mg x 1 - currently being put on high flow O2, titrate as appropriate - echo - monitor CBC and BMP ESRD on HD MWF - nephro consult IDDM - diabetic diet - sliding scale insulin - lantus 5 U QHS chronic anemia secondary to ESRD - hgb 8.9, stable - no need for blood transfusion at this time - monitor CBC stage I COPD, no acute exacerbation - no active wheezing, no acute exacerbation at this time mood disorder - continue home meds chronic pain - continue home meds HTN - continue home meds HLD - continue home meds Full code VTE prophylaxis: Heparin Patient with acute hypoxic respiratory failure secondary to acute decompensated CHF exacerbation with superimposed multifocal pneumonia, requiring admission for at least 2 midnight stay for IV antibiotics, diuresis and monitoring. <Nina Nowak PA-C - Last Filed: 03/07/25 21:41> Patient is a 70-year-old male with a past medical history significant for ESRD on HD with frequent admissions due to noncompliance with dialysis, mood disorder, stage I COPD, insulin-dependent diabetes, hypothyroid, HLD, chronic anemia, GERD and HTN, who presented to the ED via EMS for ?cardiac arrest ?however the patient was found with a pulse and was in respiratory distress, hypoxic and diaphoretic. sepsis and acute hypoxic respiratory failure secondary to acute decompensated CHF exacerbation with superimposed multifocal pneumonia, no shock - WBC 28.9, lactic acid 2.2, 3.7 on repeat, blood cultures x2 pending - chest x-ray with multifocal bilateral pulmonary opacities secondary to infection and/or edema - started on vancomycin, Zosyn and doxycycline in ED, switch to vancomycin and cefepime - BNP 61003 - Lasix 120 mg x 1 - currently being put on high flow O2, titrate as appropriate -Cpap prn -no shock - echo - monitor CBC and BMP ESRD on HD MWF - nephro consult IDDM - diabetic diet - sliding scale insulin - lantus 5 U QHS chronic anemia secondary to ESRD - hgb 8.9, stable - no need for blood transfusion at this time - monitor CBC stage I COPD, no acute exacerbation - no active wheezing, no acute exacerbation at this time mood disorder - continue home meds chronic pain - continue home meds HTN - continue home meds HLD - continue home meds Full code VTE prophylaxis: Heparin Patient with acute hypoxic respiratory failure secondary to acute decompensated CHF exacerbation with superimposed multifocal pneumonia, requiring admission for at least 2 midnight stay for IV antibiotics, diuresis and monitoring. <James Bobby MD - Last Filed: 03/07/25 22:08> Quality Stroke Does the patient have a stroke diagnosis?: No <Nina Nowak PA-C - Last Filed: 03/07/25 21:41> VTE Prior VTE?: No <Nina Nowak PA-C - Last Filed: 03/07/25 21:41> VTE Risk Level:: Medical - moderate - high <Nina Nowak PA-C - Last Filed: 03/07/25 21:41> VTE Device Contraindication: Treatment Not Indicated <Nina Nowak PA-C - Last Filed: 03/07/25 21:41> VTE Drug Contraindication: N/A - Med Ordered <Nina Nowak PA-C - Last Filed: 03/07/25 21:41>
--- NOTE | 2025-03-07 21:13 | PHA.MEDREC ---
Addendum entered by Kristina Huog [facility] 03/07/25 21:33: reviewed, patients sliding scale lispro ranges from 0 units to 10 units. Original Note: Pharmacy Consult ? Medication Reconciliation Pharmacy has completed the medication reconciliation. Utilized list from [facility] to confirm med list.
--- NOTE | 2025-03-07 21:31 | PM.EVENT ---
Event Note Date of Service: 03/07/25 Event Note: Rapid response was called for bradycardia. Upon arrival no pulse on examination and resuscitation began as per ACLS protocol. Please refer to the code sheet for details. Patient was intubated by ER physician Dr. Solorio. ROSC achieved and patient to be transferred to intensive care unit. Discussed with Dr Boss. Family was updated by Anamika Nowak. Time Spent With Patient Time: Total time managing care of this patient today ____ minutes.
[2025-03-07 21:47] LABS: ABG Base Excess -13.8 mmol/L; ABG HCO3 15 mmol/L (22-26); ABG pCO2 48 mmHg (32-45); ABG pH 7.09 (7.35-7.45); ABG pO2 111 mmHg (83-108)
[2025-03-07 21:51] LABS: VBG Base Excess -11.3 mmol/L; VBG HCO3 18 mmol/L (22-26); VBG pCO2 61 mmHg; VBG pH 7.08 (7.32-7.43); VBG pO2 71 mmHg
[2025-03-07 21:58] LABS: Venous Blood Gas Refer to POC result
[2025-03-07] MEDS: propofoL 1,000 MG/100 ML VIAL 13.16 MG IVCONT (22:00)
[2025-03-07 22:03] LABS: Anion Gap 32 (12-20); Blood Urea Nitrogen 39 mg/dL (9-16); Calcium 10.3 mg/dL (8.4-10.2); Carbon Dioxide 17 mmol/L (22-29); Chloride 94 mmol/L (96-108); Creatinine Clr Calc Pharmacy 7.8; Estimated Glomerular Filt Rate 7; Glucose Fasting 224 mg/dL (60-99); Potassium 3.6 mmol/L (3.3-5.1); Sodium 139 mmol/L (135-145)
[2025-03-07 22:14] LABS: Troponin-I High Sensitivity 74.2 ng/L (<3.5-35.0)
[2025-03-07 22:15] LABS: Reflex Lactate? 2 Y
[2025-03-07 22:50] LABS: Glucose, Whole Blood 148 mg/dL (60-115)
[2025-03-07 23:14] LABS: B Type Natriuretic Peptide 14405 pg/mL (<100)
--- NOTE | 2025-03-07 23:40 | PM.SEPBOLA4 ---
Sepsis Bolus Exclusion Sepsis Bolus Exclusion CHF/Renal Failure Date of Occurrence: 03/07/25 Time of Occurrence:: 21:30 This patient met severe sepsis criteria due to the following condition(s):: Lactate>=4mmol/L In my clinical judgement the administration of 30 ml/kg of crystalloid would be detrimental to this patient due to the patient's following conditions:: Stage III or IV Chronic Kidney Disease (GFR<30) and Concern for fluid overload Replace the 30 mls/kg with (Zero amount not acceptable and all fluids for severe sepsis must be given at GREATER than 125 mls/hr) *Note: One of the rider must be documented Crystalloids amount given in mls: (rate must be at least 150cc/hr): 0 Colloids amount given in mls:: 200 At a rate of (must be > 125 cchr):: 133
--- NOTE | 2025-03-07 23:41 | PM.CCN ---
Critical Care Event Note Summary Date of Service: 03/07/25 Code activated: No Narrative: This case had a high probability of a clinically significant, sudden, or life threatening deterioration of this patient's condition which required my full and direct attention, intervention and personal management. Critical Care Time (minutes): 75 Comment: Clinical Precedent to this event: Please see H and P by Dr Bobby. Patient who was just admitted to internal medicine service due to respiratory distress who had been found by EMS at a local facility where they were called due to severe respiratory distress, upon their arrival, the patient did have a pulse however, had been diaphoretic and hypoxic with an O2 sat of 80% on room air with improvement to 88% via non-rebreather, he had received some nebulizers and was transferred to the emergency room. While in the ED and waiting for bed placement, the respiratory therapist noted the patient had some hypoxia and work of breathing, the patient was placed on high-flow oxygen for approximately 20 minutes doing extremely well.? Suddenly they noticed that the patient's O2 sat dropped quite quickly, upon going to the room they noticed that the patient's high-flow O2 device was on the floor and the patient had agonal breathing, became bradycardic and went into cardiac arrest. ?Immediately ACLS protocol was started and RSV side was performed by ER physician, ROSC was obtained?10 min after CPR was started. Please see code sheet for details, pt received atropin, epinephrine x 2 among others. Subjective:? During my evaluation in the emergency room, the patient was noticeably awake as he had only been paralyzed. ?100 mg of IV push propofol was given followed by a drip.? We will obtain a CT of the chest and transfer him to the ICU for further treatment.? An ABG obtained at bedside reveals pH of 7.09 and bicarb of 14.8, pCO2 40, PO2 110. The patient has an underlying history of end-stage renal disease noncompliant with dialysis, COPD, insulin-dependent diabetes, hyperlipidemia, anemia of chronic disease, hypertension, GERD, hypothyroid, mood disorder among others. Review of systems: unobtainable Sepsis exam dine at 2200 VS: ?127/78, 119, 16, 99.8. on a Vent AC 25 / 380/ 10/ 100% General:? Intubated and sedated. Skin: ?Left upper arm AV fistula with positive thrill. ?Intact, no lesions or rash HEENT:? Normocephalic, atraumatic, pupils fixed at 4 mm bilaterally. Cardiac: ?Tachycardic 120 beats per minute.? S3 gallop at the left lower sternal border. 1+JVD Pulmonary:? Diminished lung sounds bilaterally with coarse crackles bilaterally and throughout, with superimposed anterior rhonchi bilaterally. Abdomen:? Protuberant, positive bowel sounds in all 4 quadrants.? Soft Musculoskeletal:? Passive range of motion of upper and lower extremities at the major joints showed no cogwheeling, no crepitus. No edema of the legs, but has 2+ pitting on the presacral area. Neurologic:? As above, unable to further assess. Vascular:? 2+ pulses upper and lower extremities distally.? Less than 2nd capillary refill of the finger and toes bilaterally upper and lower extremities. SIGNIFICANT LABORATORY DATA: ?White count 28.9, hemoglobin 8.9, hematocrit 26.4, platelets 295. Sodium 139, potassium 3.6, chloride 94, carbon dioxide 17, anion gap 32, BUN 39, creatinine 7.8, random glucose 170, lactic acid 3.7 but it may be equivocal as there is adult up to 13.? Calcium 10.3.? LFTs normal and respiratory panel negative. REVIEW OF IMAGES: Chest x-ray shows multifocal bilateral pulmonary opacities secondary to infections and/or edema. EKG REVIEW: ?To my view this is sinus rhythm 80 beats per minute.? There is minimal ST depressions in the inferolateral leads.? No present on prior EKG.? QT 432. ASSESSMENT: 1. Status post Respiratory arrest leading to cardiac arrest 2. Acute pulmonary edema with superimposed bilateral infiltrates 3. Acute hypoxic Respiratory Failure 4. Acute sepsis likely due to pneumonia 5. Severe lactic and metabolic acidosis due to all the above 6. Reactive versus infectious leukocytosis 7. Anemia of chronic disease 8.End-stage renal disease noncompliant with hemodialysis PLAN OF CARE: The patient will be transferred to the ICU, continue with respiratory support through the ventilator, bronchodilators as needed, the patient would likely need dialysis due to significant fluid overload and pulmonary congestion.? We will start him on bicarb drip.? We will also start him on broad-spectrum antibiotics renally adjusted doses to be given after dialysis ?Nephrology consult as the patient may need HD due to acidosis and risk of more fluid overload while giving him sodium bicarb via gtt; fluid overloaded.? He has not had dialysis the past 4 days.? Levophed for BP support as BP is coming down with sedation. Discussed with Dr Yadav who agrees with HD tonight. ?Even though the patient could be experiencing early sepsis, he is not a candidate for 30 mL/kilos the patient is already fluid overloaded has risk of worsening respiratory failure. CODE STATUS: ?I had a lengthy discussion with the patient's who states his quality of life has been declining very rapidly.? At this point she would like to make him DNR, she does not want any additional measures of procedures including no central line.? She would like to try dialysis today and see how he does tomorrow, if he was to decompensate further, she would like to discuss comfort measures.? The above-mentioned conversation was witnessed by the nurse Jaycee. GI PROPHYLAXIS: IV PPI? DVT PROPHYLAXIS: Heparin Sub Q F/up sepsis focused exam 03:50 on 03/08/2025 VS: 129/35, 76, 16. on a Vent AC 25 / 380/ 5/ 50% General:? Intubated and sedated. Cardiac: ?Clear s1,S2 no m/r/g 1+JVD Pulmonary:? Diminished lung sounds bilaterally with coarse crackles bilaterally and throughout, with superimposed anterior rhonchi bilaterally; has 2+ pitting edema on the presacral area. Neurologic:? As above, unable to further assess. Vascular:? 2+ pulses upper and lower extremities distally.? Less than 2nd capillary refill of the finger and toes bilaterally upper and lower extremities. Administer Vanco in the last hour of HD, then Cefepime to be given post HD on HD days. Sputum cx and GS. Critical care time used for critical evaluation of this patient, diagnosis, treatment and coordination of care, review her records and documentation TOTAL CRITICAL CARE TIME? 75? MIN . discussion and coordination with consultants, completely separate from any procedures performed. Patient's care was discussed in detail with Dr. Boss who is aware of all the above as well as the plan of care for this patient.
[2025-03-07] MEDS: Sodium Bicarbonate 8.4% 50 MEQ/50 ML SYRINGE IVPUSH (23:42)
[2025-03-07] MEDS: Sodium Bicarbonate 8.4% 150 MEQ in Dextrose 5 % 850 ML 100 MEQ IV (23:42)
[2025-03-07] MEDS: 0.9 % Sodium Chloride Flush 3 ML SYRINGE IVFLUSH (23:42)
[2025-03-08] VITALS (46 sets, daily range): BP systolic 92–158; BP diastolic 29–71; PULSE 59–83; RESP 11–25; TEMP 33–37.6; O2SAT 69–100; BMI 25.5
[2025-03-08] MEDS: Albumin Human 25 % 100 ML 133.33 ML IV ×2 (00:12→01:14)
--- NOTE | 2025-03-08 00:15 | HO.HCP_ITS ---
Health Care Proxy Invocation Health Care Proxy Declaration: [facility], PAC, on the date cited below, have determined that, Delano Carter, lacks the capacity to make or communicate, informed health care decision. This determination is made in accordance with accepted standards of medical judgment and pursuant to [place]. 201[place], the [place] Health Care Proxy Law. The cause, nature, extent and probable duration of the patient's inapacity are described below: Cause: intubated Nature:post cardiorespiratory arrest Extent:unknown Probable Duration of Patient's Incapacity:Undetermined Health Care Proxy Directions: Pt has a listed HCP his Kyara Wick who has asked to make the patient DNR and no further escalation of care, no central line, await to see if he improves if not will talk to us about [employer]
[2025-03-08] MEDS: Norepinephrine Bitartrate/D5W 8 MG/250 ML PLAST..BAG 6.85 MG IVCONT (00:43)
[2025-03-08] MEDS: propofoL 1,000 MG/100 ML VIAL 21.93 MG IVCONT ×2 (00:45→04:51)
[2025-03-08] MEDS: vancomycin HCL 1,000 MG in 0.9 % Sodium Chloride 250 ML 270 MG IV (03:28)
--- NOTE | 2025-03-08 03:29 | PC.NURSE ---
Addendum entered by Landon Dyson RN 03/08/25 06:19: Assumed care at 2300. Upon initial assessment- patient remains intubated and sedated, propofol gtt running per MAR, RASS -2. Patient grimaces to pain, moves all extremities weakly but does not follow commands or track. SR on tele, HR 60s-70s. Levophed gtt ordered for BP support, see MAR. Patient has 7.5 ETT, 23cm at the lip, see vent assessment for setting changes. Lung sounds clear, diminished in the bases. Abdomen soft and round, bowel sounds x4 auscultated. NPO. OGT unable to be placed d/t coiling, PA aware. Unknown last BM. [place] catheter in place, no UOP this shift , bladder scan with no measurable?amount. Nephrology?consulted, urgent HD session completed by dialysis nurse-- see I&O. Skin overall cool, dry and intact. Patient appears to have old pressure injury to coccyx that is nearly healed with scabbing and right heel is boggy but blanchable, pink foam applied and foot elevated-- see skin photos. Patient /HCP updated at bedside by this RN on plan of care. Bed locked in lowest position, soft wrist restraints in? place for safety, bed alarm on. See EMR/flowsheet for further details. Original Note: [employer] called from ED for inpatient boarder that subsequently deteriorated to code blue- see paper documentation. Brought to CT scan at 2200 without incident and transferred to ICU. Pt at bedside and updated on pt status/plan of care. Code status changed to DNR/DNI. Report given to oncoming RN at approx 2300.
[2025-03-08] MEDS: cefEPime HCl 1 GM in 0.9 % Sodium Chloride 50 ML IV (03:37)
[2025-03-08 04:31] LABS: VBG Base Excess 18.5 mmol/L; VBG HCO3 41 mmol/L (22-26); VBG pCO2 42 mmHg; VBG pO2 135 mmHg
[2025-03-08 04:34] LABS: Basophils Percent Auto 0.2 % (0-2); Hemoglobin 7.3 g/dl (14.0-18.0); Imm Gran Abs Auto 0.17 X10*3/uL (0.00-0.03); Imm Gran Pct Auto 0.8 % (0.0-0.4); Lymphocytes Absolute Auto 1.1 X10*3/uL (1.2-4.9); Lymphocytes Percent Auto 5.3 % (20-40); MANUAL DIFF FLAG SCAN; Mean Corpuscular HGB Conc 35.3 g/dl (31.0-36.0); Mean Corpuscular Hemoglobin 32.4 pg (27.0-33.0); Mean Platelet Volume 10.1 fL (9.4-12.4); Monocytes Absolute Auto 1.5 X10*3/uL (0.1-1.2); Monocytes Percent Auto 7.3 % (2-11); Neutrophils Absolute Auto 18.1 x10*3/uL (2.0-8.3); Neutrophils Percent Auto 86.4 % (45-73); Platelet Count 228 X10*3/uL (160-400); Red Blood Count 2.25 X10*6/uL (4.60-5.80); Red Cell Distribution Width 15.5 % (11.0-16.0); SCAN SMEAR FLAG 1; White Blood Count 20.9 X10*3/uL (4.8-10.8)
[2025-03-08 04:45] LABS: Hematocrit 20.7 % (42.0-52.0)
[2025-03-08 04:53] LABS: SLIDE REVIEW VERIFIED
[2025-03-08 04:59] LABS: Alanine Aminotransferase 76 U/L (0-40); Albumin Level 4.6 g/dL (3.5-5.0); Anion Gap 19 (12-20); Aspartate Amino Transferase 109 U/L (5-37); Bilirubin Total 1.2 mg/dL (0.0-1.0); Blood Urea Nitrogen 14 mg/dL (9-16); Calcium 9.2 mg/dL (8.4-10.2); Carbon Dioxide 32 mmol/L (22-29); Chloride 93 mmol/L (96-108); Creatinine Clr Calc Pharmacy 22.8; Estimated Glomerular Filt Rate 24; Glucose Random 120 mg/dL (60-115); Magnesium 2.1 mg/dL (1.6-2.6); Potassium 3.1 mmol/L (3.3-5.1); Sodium 141 mmol/L (135-145); Total Protein 7.1 g/dL (6.5-8.0)
[2025-03-08 05:01] LABS: Venous Blood Gas Refer to POC result
[2025-03-08 05:03] LABS: Alkaline Phosphatase 88 U/L (39-117)
[2025-03-08] MEDS: Pantoprazole Sodium 40 MG/10 ML VIAL IVPUSH (05:44)
--- NOTE | 2025-03-08 06:28 | HO.SKINPHOTO ---
Location: Right heel Location: Coccyx
--- NOTE | 2025-03-08 07:00 | CA_ITS ---
Transthoracic Echocardiogram Patient (Last, First, Middle): Emma Wick, Gender: Male Date of : 1955 Age: 70 Procedure Date: 03/08/2025 Procedure Type: Transthoracic Echocardiogram Location: ICU Height: 167.64 cm Weight: 71.67 kg BSA: 1.81 m2 Heart Rate: bpm BP: 120 / 50 mmHg Shot Tube Machine Tender: Referring MD: Nina Nowak PA-C Symptoms: CHF exacerbation Study Quality: Fair, contrast Conclusions: - Normal left ventricular size, thickness, systolic function, and wall motion. The visually estimated ejection fraction is between 55-60%. - E/E prime ratio is between 8 and 15 consistent with indeterminate filling pressures. Findings Procedure Information Contrast agent, definity, is being given per protocol without apparent complications. Left Ventricle Normal left ventricular size, thickness, systolic function, and wall motion. The visually estimated ejection fraction is between 55-60%. There is abnormal septal motion with excessive respiratory change. Abnormal diastolic function is noted. Spectral Doppler is indicative of an impaired relaxation filling pattern. E/E prime ratio is between 8 and 15 consistent with indeterminate filling pressures. Right Ventricle Moderately increased right ventricular cavity size. There is moderately decreased right ventricular systolic function. Right ventricular free wall function is depressed with normal apical segment can not rule out Blake sign. If concern for pulmonary embolism then please consider scanning the patient. Atria The left atrium is normal in size. The right atrium was not well visualized. Aortic Valve The aortic valve was not well visualized. There is no aortic valve stenosis. There is no aortic valve regurgitation. Mitral Valve Likely normal mitral valve structure and function. There is no mitral valve regurgitation. There is no mitral valve stenosis. Pulmonic Valve The pulmonic valve was not well visualized. Tricuspid Valve Likely normal tricuspid valve structure and function. Indeterminate right atrial pressure. PA pressures = 30 + right atrial pressure. Great Vessels All visible segments of the aorta are normal in size. Venous The inferior vena cava is dilated and does not collapse with inspiration. The patient is intubated. Pericardium/Pleural There is no evidence of pericardial effusion. Prior Study Comparison Changes noted compared to prior study dated: 11/05/2023. Moderate RV dilation and dysfunction. Measurements 2D Linear Measurements IVSd: 1.00 0.6-0.9/0.6-1.0 cm LVIDd: 4.17 3.9-5.3/4.2-5.9 cm LVIDd Index: 2.30 2.4-3.2/2.2-3.1 cm/m2 LVIDs: 3.11 2.0-3.6 cm LVPWd: 1.04 0.7-1.1 cm LA Diam: 3.50 2.7-3.8/3.0-4.0 cm LAIDs Index: 1.93 1.5-2.3 cm/m2 LV Mass: 173.65 67-162/88-224 g LV Mass Index: 95.94 43-95/49-115 g/m2 LVOT Diam: 2.00 3.0+(-)1.3 cm Mitral Valve MV Pk E: 0.65 MV PK A: 0.75 MV Decel Time: 145.00 E/A: 0.90 E'Lateral: 8.05 E'Medial: 5.77 E/E' Med: 11.30 E/E' Lat: 8.10 PHT: 43.00 MVA PHT: 5.12 Decel Alcorn: 4.48 Aortic Valve AoV Pk Jhon: 0.98 AoV Mn Jhon: 0.64 AoV VTI: 0.18 AoV Pk Grad: 4.00 Aov Mn Grad: 2.00 MAURILIO Cont.VTI: 2.08 LVOT LVOT Pk Jhon: 0.65 LVOT Mn Jhon: 0.39 LVOT VTI: 0.12 LVOT Pk Grad: 2.00 LVOT Mn Grad: 1.00 LVOT Diam: 2.00 LVOT Area: 3.14 Diastolic Function MV Pk E: 0.65 MV Pk A: 0.75 E/A: 0.90 E'Medial: 5.77 E/E' Med: 11.30 E' Laterial: 8.05 E/E' Lat: 8.10 Right Ventricle TAPSE (mm): 13.00 TVS' Jhon: 7.40 Tricuspid Valve TR Pk Jhon: 2.74 TR Pk Grad: 30.00 Great Vessels Aorta Sinus of Valsalva: 3.40 2.0-3.5 cm Pulmonary Valve PV Pk Jhon: 0.78 Peak PV Grad: 2.00 Updated in Other Vendor System with Status of Final Satinder Lyn MD electronically signed on 03/08/2025 1:59:28 PM with status of Final
[2025-03-08 07:23] LABS: Glucose, Whole Blood 127 mg/dL (60-115)
[2025-03-08] MEDS: 0.9 % Sodium Chloride Flush 3 ML SYRINGE IVFLUSH ×2 (07:28→16:39)
--- NOTE | 2025-03-08 08:00 | PM.CNNEP ---
History of Present Illness Reason for Consult Consult date: 03/08/25 Chief Complaint Chief complaint: dyspnea History of Present Illness Narrative: Patient is a 70 y/o male with a medical history of ESRD on HD (M,W,F), DM, hypothyroidism, HLD, anemia of chronic disease, GERD, and mood disorder. Presented 03/07 with shortness of breath, had apparently missed x3 HD sessions due to chronic pain. cardiac arrest 03/07 evening, ROSC acheived and pt intubated and admitted to ICU, requiring vasopressor support. Nephrology consulted for ESRD, s/p cardio respiratory arrest management. patient was dialyzed last evening, potassium low at 3.1, serum CO2 32 this a.m. (17 last evening, now on bicarb drip). Lactic acid 8.0 03/07 evening. creatinine 7.8 proir to HD, is now 2.[address] 03/07 with bilateral lobe consolidations concerning for pneumonia, bilateral pleural effusions (moderate), pulmonary edema and reactive lymphadenopathy. white count is 28.9 03/07 evening. patient is intubated and sedated at bedside and unable to provide history. Review of Systems Review of Systems Yes unobtainable due to endotracheal tube and Unobtainable due to mental status PMFSH Past Medical History Medical History Hypothyroidism Influenza A CHF (congestive heart failure) Acute anemia Multifactorial gait disorder Pneumonia End stage renal disease on dialysis Occult blood positive stool Anemia Internal jugular vein thrombosis Abnormality of gait ESRD needing dialysis Secondary hyperparathyroidism (of renal origin) Anemia in chronic kidney disease DONIS (acute kidney injury) Diabetes Kidney failure HTN (hypertension) Social History Social History Household Members: Spouse Housing: Unknown / Unable to assess Are you a primary long term acute care registered nurse to a significant other at home: No Do you presently have visiting nurse or other home services: No Alcohol intake: former Comment: sitter in place Patient Tobacco Use Status: Never used Tobacco Cigarette Packs Per Day: 0 Cigarettes Per Day: 0 Years Smoked: NA e-Cigarette/Vaping Use: Never Used Second Hand Smoke Exposure: No Advance Directives Date on File: 09/07/23 service: No Meds Allergies Allergy/AdvReac Type Severity Reaction Status Date / Time Penicillins [PENICILLINS] Allergy Unknown RASH Verified 03/07/25 17:27 tramadol [From ULTRAM] Allergy Unknown RASH Verified 03/07/25 17:27 trazodone [TRAZODONE] Allergy Unknown PRIAPISM Verified 03/07/25 17:27 risperidone [RISPERIDONE] AdvReac Severe dizzy, EPS Verified 03/07/25 17:27 Active Medications: Current Medications Acetaminophen (Acetaminophen 325 Mg Tablet) 975 mg PO Q6H PRN PRN Reason: Pain, Mild 1-3,fever,headache Albuterol/Ipratropium (Albuterol/Iprat 2.5/0.5mg 3 Ml Ampul.Neb) 3 ml INHALE Q4H PRN PRN Reason: Shortness of Breath/Wheezing Alprazolam (Alprazolam 0.5 Mg Tablet) 1 mg PO BID [facility] Last Admin: 03/08/25 07:04 Dose: Not Given Alprazolam (Alprazolam 0.5 Mg Tablet) 0.5 mg PO DAILY PRN PRN Reason: Anxiety Calcium Carbonate (Calcium Carbonate 750 Mg Tab.Chew) 750 mg PO Q4H PRN PRN Reason: Heartburn Chlorhexidine Gluconate (Chlorhexidine Gluc Oral Rinse 15 Ml Mouthwash) 15 ml BUCCAL TID [facility] Dextrose (Dextrose 50 % 25 Gm/50 Ml Syringe) 25 gm IVPUSH Q15M PRN; Protocol PRN Reason: per Hypoglycemia Standing Ord. Glucose (Glucose Gel 15 Gm Gel..Gram.) 15 gm PO Q15M PRN; Protocol PRN Reason: per Hypoglycemia Standing Ord. Heparin Sodium (Porcine) (Heparin Sodium,Porcine 5,000 Unit/Ml Vial) 5,000 unit SUBCUT Q8H [facility] Last Admin: 03/08/25 05:19 Dose: Not Given Hydromorphone HCl (Hydromorphone Hcl 2 Mg Tablet) 2 mg PO Q8H [facility] Last Admin: 03/08/25 04:19 Dose: Not Given Sodium Bicarbonate 150 meq/ (Dextrose) 1,000 mls @ 100 mls/hr IV .Q10H [facility] Last Admin: 03/08/25 08:22 Dose: Not Given Propofol (Diprivan) 1,000 mg in 100 mls @ 0 mls/hr IVCONT .Q0M [facility]; Protocol Last Admin: 03/08/25 04:51 Dose: 50 mcg/kg/min, 21.93 mls/hr Norepinephrine Bitartrate (Levophed) 8 mg in 250 mls @ 0 mls/hr IVCONT .Q0M [facility]; Protocol Last Titration: 03/08/25 06:02 Dose: 0.03 mcg/kg/min, 4.11 mls/hr Cefepime HCl 0.5 gm/ Sodium (Chloride) 50 mls @ 100 mls/hr IV Q24H [facility] Vancomycin HCl 500 mg/ Sodium (Chloride) 110 mls @ 110 mls/hr IV ONCE ONE Stop: 03/08/25 07:59 Insulin Glargine (Insulin Glargine,Hum.Rec.Anlog 100 Unit/Ml 10 Ml Vial) 5 unit SUBCUT BEDTIME [facility] Last Admin: 03/07/25 22:40 Dose: Not Given Insulin Human Lispro (Insulin Lispro 100 Unit/Ml 3 Ml Vial) 0 unit SUBCUT QIDACHS [facility]; Protocol Last Admin: 03/07/25 22:41 Dose: Not Given Magnesium Hydroxide (Milk Of Magnesia 30 Ml Oral.Susp) 30 ml PO DAILY PRN PRN Reason: Constipation Melatonin (Melatonin 3 Mg Tablet) 6 mg PO BEDTIME PRN PRN Reason: Insomnia Pantoprazole Sodium (Pantoprazole Sodium 40 Mg/10 Ml Vial) 40 mg IVPUSH DAILY@0630 [facility] Last Admin: 03/08/25 05:44 Dose: 40 mg Pharmacy Consult (Consult Rx Vancomycin Dosing) 1 each MISCELLANE DAILY PRN PRN Reason: Consult order Sevelamer Carbonate (Sevelamer Carbonate Tablet 800 Mg Tablet) 1,600 mg PO TIDWM [facility] Last Admin: 03/08/25 07:04 Dose: Not Given Sodium Chloride (0.9 % Sodium Chloride Flush 3 Ml Syringe) 3 ml IVFLUSH QSHIFT [facility] Last Admin: 03/08/25 07:28 Dose: 3 ml Home Medications ?Medication ?Instructions ?Recorded ?Confirmed ?Last Taken ?Type atenolol 100 mg tablet 1 tab PO DAILY 07/11/21 03/07/25 02/02/25 History blood sugar diagnostic (FreeStyle 07/11/21 10/30/24 10/30/24 09:00 History Lite Strips) levothyroxine 137 mcg tablet 1 tab PO DAILY@0600 07/11/21 03/07/25 02/02/25 History pen needle, diabetic 31 gauge x 07/11/21 10/30/24 10/30/24 09:00 History 5/16 (BD Ultra-Fine Short Pen Needle) atorvastatin 40 mg tablet 40 mg PO BEDTIME 02/22/24 03/07/25 02/02/25 History sodium zirconium cyclosilicate 10 10 g PO SUTUTHSA@0900 06/19/24 03/07/25 02/02/25 History gram oral powder packet (Lokelma) insulin lispro 100 unit/mL See Protocol subcut TIDAC PRN 10/30/24 03/07/25 10/30/24 09:00 History subcutaneous pen (Humalog KwikPen Blood Glucose (U-100) Insulin) sevelamer carbonate 800 mg tablet 1,600 mg PO TIDWM 01/09/25 03/07/25 02/02/25 History acetaminophen 325 mg tablet 650 mg PO Q6H PRN Fever Or Pain 02/13/25 03/07/25 Unknown History dextroamphetamine-amphetamine 20 20 mg PO BID 02/24/25 03/07/25 Unknown History mg tablet hydromorphone 4 mg tablet 4 mg PO Q3H PRN Pain 02/24/25 03/07/25 Unknown History ascorbic acid (vitamin C) 250 mg 250 mg PO DAILY 03/07/25 03/07/25 Unknown History tablet benztropine 0.5 mg tablet 0.5 mg PO BID 03/07/25 03/07/25 Unknown History cholecalciferol (vitamin D3) 125 125 mcg PO SUTUTHSA 03/07/25 03/07/25 Unknown History mcg (5,000 unit) tablet clonazepam 1 mg tablet 1 mg PO BID 03/07/25 03/07/25 Unknown History vitamin B complex-vitamin C-folic 1 tab PO DAILY 03/07/25 03/07/25 Unknown History acid 0.8 mg tablet (Nephro-Fernanda) zinc sulfate 220 mg capsule 220 mg PO DAILY 03/07/25 03/07/25 Unknown History Physical Exam Vital Signs: Last Vital Signs Temp 98.1 F 03/08/25 08:00 Pulse 77 03/08/25 08:00 Resp 18 03/08/25 08:00 BP 108/44 L 03/08/25 08:00 Pulse Ox 92 03/08/25 08:00 O2 Del Method Mechanical Ventilation 03/08/25 08:00 O2 Flow Rate 10 03/07/25 20:21 FiO2 50 03/08/25 08:00 Oxygen Flow Rate 6 03/07/25 17:17 BMI result Body Mass Index 25.5 Const General: other (intubated/sedated.) Resp Effort & Inspection: other (intubated on VC, 40% fiO2) Auscultation: crackles Cardio Rate: regular rate Rhythm: regular rhythm Heart sounds: S1 normal heart sound present, S2 normal heart sound present and Murmur heart sound present GI Palpation (GI): Soft to palpation and nontender Skin Rashes: no rashes Neuro Other: sedated. Extrem General: No edema and No pedal edema Results Lab Results 03/08/25 04:13 03/08/25 04:13 Lab results: Chemistry 03/07/25 03/07/25 03/08/25 17:54 21:40 04:13 Sodium 135 139 141 Potassium 4.1 3.6 3.1 L Carbon Dioxide 27 17 L 32 H BUN 39 H 39 H 14 Creatinine 7.65 H* 7.80 H* 2.67 H Calcium 8.8 10.3 H D 9.2 D Phosphorus 2.0 L Hematology 03/07/25 03/08/25 17:54 04:13 WBC 28.9 H 20.9 H Hgb 8.9 L 7.3 L Plt Count 295 228 Assessment and Plan (1) ESRD needing dialysis: Status: Acute (2) Fluid overload: Qualifiers: Hypervolemia type: unspecified Qualified Code(s): E87.70 - Fluid overload, unspecified Status: Resolved (3) Sepsis: Qualifiers: Sepsis acute organ dysfunction status: unspecified Sepsis type: sepsis due to unspecified organism Qualified Code(s): A41.9 - Sepsis, unspecified organism Status: Acute Plan ESRD on HD with fluid overload after x3 missed HD sessions ESRD on HD MWF - received HD early this a.m. access: LUE AV fistula appears hypervolemic blood pressures requiring vasopressor support (septic) metabolic alkalosis likely from bicarb after acidosis correction from HD, recommend discontinue bicarb drip H&H 7.3 & 20/7, procrit 20,000 units 3x weekly calcium 9.2, phosphorous low at 2.0 (liberalize diet when extubated) potassium 3.1 today- recommend avoid oral/IV potassium replacement and manage with HD continue to monitor electrolytes renal function studies daily regular blood pressure checks continue supportive care, will continue to follow Discussed with Dr Allen Procedures Date of Service Date of Service: 03/08/25
[2025-03-08] MEDS: Chlorhexidine Gluc Oral Rinse 15 ML MOUTHWASH BUCCAL (09:24)
[2025-03-08] MEDS: HYDROmorphone HCl 1 MG/ML SYRINGE IVPUSH ×4 (10:09→21:01)
--- NOTE | 2025-03-08 10:12 | MHC.CLN ---
PT IS INTUBATED AND SEDATED CURRENTLY NPO DISCUSSED AT ROUNDS WITH MD IF TF NEEDED; RECOMMEND NEPRO AT MAX GOAL RATE 35ML/HR TO PROVIDE 1512KCALS (2091KCALS TOTAL WITH SEDATION; 29KCALS/KG), 68G PROTEIN (.9G/KG), 611ML FREE WATER FROM FORMULA MONITOR TOLERANCE AND LYTES FOLLOWING FOR DIET ADVANCEMENT SEE FULL NUTRITION ASSESSMENT
--- NOTE | 2025-03-08 10:21 | PM.CCPN ---
Subjective Subjective Date of Service: 03/08/25 Interval History: 70-year-old gentleman with underlying diabetes mellitus, ESRD on hemodialysis with suboptimal compliance, COPD, hypotension admitted on 03/07/2025 with dyspnea secondary to noncompliance with hemodialysis. Hospital course significant for what appears to be hypoxia/bradycardic cardiac arrest status post return of spontaneous circulation after approximately 5 rounds of CPR, intubated during CPR and transferred to intensive care unit. Post CPR patient with significant metabolic acidosis and hypoxia requiring emergent hemodialysis. Overnight events as above. Critical Care Time (minutes): 60 Physical Exam Vital Signs: Vital Signs: Last Vital Signs Temp 98.1 F 03/08/25 08:00 Pulse 79 03/08/25 10:00 Resp 22 H 03/08/25 10:00 BP 122/44 L 03/08/25 10:00 Pulse Ox 90 L 03/08/25 10:00 O2 Del Method Nasal Cannula 03/08/25 10:00 O2 Flow Rate 2 03/08/25 10:00 FiO2 40 03/08/25 10:11 Oxygen Flow Rate 6 03/07/25 17:17 BMI result Body Mass Index 25.5 Const: General: no acute distress and other (Sedated on ventilatory support) Eyes: Sclerae: sclerae normal EOM: EOMs intact bilaterally Neck: Neck: Yes no lymphadenopathy, Yes trachea midline and Yes supple Resp: Auscultation: crackles (Mild bilateral) Cardio: Rate: regular rate Rhythm: regular rhythm Heart sounds: no gallops, no murmurs and no rubs GI: Palpation (GI): Soft to palpation and Other GI palpation findings present ( Nontender) Auscultation: normal bowel sounds Extrem: General: Yes no pedal edema, No clubbing and No cyanosis Objective Data Labs 03/08/25 04:13 03/08/25 04:13 Labs: Laboratory Results - last 24 hr 03/07/25 03/07/25 03/07/25 17:54 18:01 20:12 WBC 28.9 H RBC 2.78 L Hgb 8.9 L Hct 26.4 L MCV 95.0 MCH 32.0 MCHC 33.7 RDW 15.6 Plt Count 295 MPV 10.3 Immature Gran % (Auto) 0.9 H Neut % (Auto) 88.8 H Lymph % (Auto) 3.9 L [place] % (Auto) 5.7 Eos % (Auto) 0.3 Baso % (Auto) 0.4 Lymph # (Auto) 1.1 L [place] # (Auto) 1.7 H Eos # (Auto) 0.1 Baso # (Auto) 0.1 Abs Immat Gran (auto) 0.27 H Absolute Neuts (auto) 25.6 H Absolute Nucleated RBC 0.000 Nucleated RBC % (auto) 0.0 Smear Tech's Comments VERIFIED PT 12.6 H INR 1.1 APTT 27.6 O2 Saturation ABG pH at Pt Temp ABG pCO2 at Pt Temp ABG pO2 at Pt Temp ABG HCO3 ABG Base Excess (Actual) VBG pH 7.48 H VBG pCO2 42 VBG pO2 34 VBG HCO3 32 H VBG O2 Saturation 48.0 VBG Base Excess 8.2 Sodium 135 Potassium 4.1 Chloride 92 L Carbon Dioxide 27 Anion Gap 20 BUN 39 H Creatinine 7.65 H* Estim Creat Clear Calc 7.9 Estimated GFR 7 POC Glucose Random Glucose 170 H Fasting Glucose Lactic Acid 2.2 H* Lactic Acid F/U @ 2Hr 3.7 H* Lactic Acid F/U @ 4Hr Calcium 8.8 Phosphorus Magnesium Total Bilirubin 0.9 AST 33 ALT 19 Alkaline Phosphatase 112 Troponin I High Sens B-Natriuretic Peptide 18652 H Total Protein 7.5 Albumin 4.2 Influenza Type A (PCR) NEGATIVE Influenza Type B (PCR) NEGATIVE RSV RNA Qual (PCR) NEGATIVE SARS-CoV-2 RNA (RT-PCR) NEGATIVE 03/07/25 03/07/25 03/07/25 21:07 21:39 21:40 WBC RBC Hgb Hct MCV MCH MCHC RDW Plt Count MPV Immature Gran % (Auto) Neut % (Auto) Lymph % (Auto) [place] % (Auto) Eos % (Auto) Baso % (Auto) Lymph # (Auto) [place] # (Auto) Eos # (Auto) Baso # (Auto) Abs Immat Gran (auto) Absolute Neuts (auto) Absolute Nucleated RBC Nucleated RBC % (auto) Smear Tech's Comments PT INR APTT O2 Saturation ABG pH at Pt Temp ABG pCO2 at Pt Temp ABG pO2 at Pt Temp ABG HCO3 ABG Base Excess (Actual) VBG pH VBG pCO2 VBG pO2 VBG HCO3 VBG O2 Saturation VBG Base Excess Sodium 139 Potassium 3.6 Chloride 94 L Carbon Dioxide 17 L Anion Gap 32 H BUN 39 H Creatinine 7.80 H* Estim Creat Clear Calc 7.8 Estimated GFR 7 POC Glucose 148 H Random Glucose Fasting Glucose 224 H Lactic Acid Lactic Acid F/U @ 2Hr Lactic Acid F/U @ 4Hr Calcium 10.3 H D Phosphorus Magnesium Total Bilirubin AST ALT Alkaline Phosphatase Troponin I High Sens 74.2 H D B-Natriuretic Peptide 53266 H Total Protein Albumin Influenza Type A (PCR) Influenza Type B (PCR) RSV RNA Qual (PCR) SARS-CoV-2 RNA (RT-PCR) 03/07/25 03/07/25 03/07/25 21:41 21:43 21:46 WBC RBC Hgb Hct MCV MCH MCHC RDW Plt Count MPV Immature Gran % (Auto) Neut % (Auto) Lymph % (Auto) [place] % (Auto) Eos % (Auto) Baso % (Auto) Lymph # (Auto) [place] # (Auto) Eos # (Auto) Baso # (Auto) Abs Immat Gran (auto) Absolute Neuts (auto) Absolute Nucleated RBC Nucleated RBC % (auto) Smear Tech's Comments PT INR APTT O2 Saturation 95.0 ABG pH at Pt Temp 7.09 L* ABG pCO2 at Pt Temp 48 H ABG pO2 at Pt Temp 111 H ABG HCO3 15 L ABG Base Excess (Actual) -13.8 VBG pH 7.08 L* VBG pCO2 61 VBG pO2 71 VBG HCO3 18 L VBG O2 Saturation 80.0 VBG Base Excess -11.3 Sodium Potassium Chloride Carbon Dioxide Anion Gap BUN Creatinine Estim Creat Clear Calc Estimated GFR POC Glucose Random Glucose Fasting Glucose Lactic Acid Cancelled Lactic Acid F/U @ 2Hr Lactic Acid F/U @ 4Hr Calcium Phosphorus Magnesium Total Bilirubin AST ALT Alkaline Phosphatase Troponin I High Sens B-Natriuretic Peptide Total Protein Albumin Influenza Type A (PCR) Influenza Type B (PCR) RSV RNA Qual (PCR) SARS-CoV-2 RNA (RT-PCR) 03/07/25 03/08/25 03/08/25 22:55 04:13 04:27 WBC 20.9 H RBC 2.25 L Hgb 7.3 L Hct 20.7 L* D MCV 92.0 MCH 32.4 MCHC 35.3 RDW 15.5 Plt Count 228 MPV 10.1 Immature Gran % (Auto) 0.8 H Neut % (Auto) 86.4 H Lymph % (Auto) 5.3 L [place] % (Auto) 7.3 Eos % (Auto) 0.0 Baso % (Auto) 0.2 Lymph # (Auto) 1.1 L [place] # (Auto) 1.5 H Eos # (Auto) 0.0 Baso # (Auto) 0.0 Abs Immat Gran (auto) 0.17 H Absolute Neuts (auto) 18.1 H Absolute Nucleated RBC 0.000 Nucleated RBC % (auto) 0.0 Smear Tech's Comments VERIFIED PT INR APTT O2 Saturation ABG pH at Pt Temp ABG pCO2 at Pt Temp ABG pO2 at Pt Temp ABG HCO3 ABG Base Excess (Actual) VBG pH 7.60 H* VBG pCO2 42 VBG pO2 135 VBG HCO3 41 H VBG O2 Saturation Not Reportable VBG Base Excess 18.5 Sodium 141 Potassium 3.1 L Chloride 93 L Carbon Dioxide 32 H Anion Gap 19 BUN 14 Creatinine 2.67 H Estim Creat Clear Calc 22.8 Estimated GFR 24 POC Glucose Random Glucose 120 H Fasting Glucose Lactic Acid Lactic Acid F/U @ 2Hr Lactic Acid F/U @ 4Hr 8.0 H* Calcium 9.2 D Phosphorus 2.0 L Magnesium 2.1 Total Bilirubin 1.2 H AST 109 H ALT 76 H Alkaline Phosphatase 88 Troponin I High Sens B-Natriuretic Peptide Total Protein 7.1 Albumin 4.6 Influenza Type A (PCR) Influenza Type B (PCR) RSV RNA Qual (PCR) SARS-CoV-2 RNA (RT-PCR) 03/08/25 07:20 WBC RBC Hgb Hct MCV MCH MCHC RDW Plt Count MPV Immature Gran % (Auto) Neut % (Auto) Lymph % (Auto) [place] % (Auto) Eos % (Auto) Baso % (Auto) Lymph # (Auto) [place] # (Auto) Eos # (Auto) Baso # (Auto) Abs Immat Gran (auto) Absolute Neuts (auto) Absolute Nucleated RBC Nucleated RBC % (auto) Smear Tech's Comments PT INR APTT O2 Saturation ABG pH at Pt Temp ABG pCO2 at Pt Temp ABG pO2 at Pt Temp ABG HCO3 ABG Base Excess (Actual) VBG pH VBG pCO2 VBG pO2 VBG HCO3 VBG O2 Saturation VBG Base Excess Sodium Potassium Chloride Carbon Dioxide Anion Gap BUN Creatinine Estim Creat Clear Calc Estimated GFR POC Glucose 127 H Random Glucose Fasting Glucose Lactic Acid Lactic Acid F/U @ 2Hr Lactic Acid F/U @ 4Hr Calcium Phosphorus Magnesium Total Bilirubin AST ALT Alkaline Phosphatase Troponin I High Sens B-Natriuretic Peptide Total Protein Albumin Influenza Type A (PCR) Influenza Type B (PCR) RSV RNA Qual (PCR) SARS-CoV-2 RNA (RT-PCR) Microbiology Microbiology Results: Microbiology 03/08/25 02:10 Aspirate - Endotracheal Tube Aspirate Gram Stain - Final Progress Note: A&P Assessment and plan (1) Cardiac arrest: Status: Acute (2) ESRD needing dialysis: Status: Acute (3) Acute hypoxic respiratory failure: Status: Acute (4) Acute exacerbation of CHF (congestive heart failure): Status: Acute Plan Assessment: 70-year-old gentleman with underlying ESRD on hemodialysis with poor compliance admitted with acute hypoxic respiratory failure further complicated by hypoxia/bradycardia cardiac arrest, now status post return of spontaneous circulation after 5 rounds of CPR Plan: Neuro: No acute issues. Cardiac: Cardiac arrest status post resuscitation, 2D echo is pending. Pulmonary: Intubated during CPR, also acute hypoxic respiratory failure secondary to poor compliance with hemodialysis. Now status post urgent hemodialysis, continue to titrate off ventilatory support as tolerated. Renal: ESRD on hemodialysis. Nephrology service care appreciated. Endo: No acute issues. Underlying diabetes mellitus. GI: No acute issues. ID: No acute issues Heme/Onc: No acute issues. Psych: No acute issues. Miscellaneous: No acute issues. Prophylaxis: Lovenox, famotidine Diet: NPO Critical care time spent: 60 minutes Quality Stroke Does the patient have a stroke diagnosis?: No VTE Prior VTE?: No VTE Risk Level:: Medical - moderate - high VTE Device Contraindication: Treatment Not Indicated VTE Drug Contraindication: N/A - Med Ordered
--- NOTE | 2025-03-08 10:37 | MHC.CM.PN ---
IMM 03/08/25 DELIVERED TO PT'S /HCP [facility] [phone] HCP WAS INVOKED D/T INTUBATION, PT FROM [facility], PT EXTUBATED JUST PRIOR TO THIS NOTE. PT HAS BEEN IN AND OUT OF STR AT [facility] AND THE [facility] SINCE JANUARY, AND WAS AT [facility] IN DECEMBER AND DID NOT DO WELL AT HOME. [facility] REPORTS PT HAS SPOKEN ABOUT WANTING TO STOP HD AND HAS BEEN REFUSING PT/TX. PT DOES HAVE CANE/WALKER/WC AT HOME, NO CURRENT HOME SERVICES AND [facility] IS NOT LIKELY ABLE TO CARE FOR PT AT HOME, IF PT CONT'S TO IMPROVE [facility] WILL WANT SNF PLACEMENT. DISPO PENDING HOSPITAL COURSE.
--- NOTE | 2025-03-08 11:12 | P.CDIM_ITS ---
PROVIDER RESPONSE TEXT: To clarify, the appropriate diagnosis supported by the clinical indicators: Acute QUERY TEXT: PHYSICIAN'S DOCUMENTATION REQUEST Date of Query: 03/08/2025 10:57 AM EDT Patient Name: PRIYA BO Admit Date: 03/07/2025 Dear Alessandro Boss MD, A review of the medical record indicates additional documentation may be needed. Please review below and update the documentation accordingly. Clinical Indicators: ICU progress notes 03/07/25 - Severe lactic and metabolic acidosis due to all of the above. ICU progress note 03/08/25 - Post CPR patient with significant metabolic acidosis and hypoxia requirin g emergent hemodialysis. Clarify which of the following accurately represents the acuity of the Metabolic acidosis: Possible options might include: Acute Chronic Other specified Other (explain) Clinically unable to determine (explain) Thank you, Tesha Velasquez, CCS, CDIS Use of terms such as suspected, likely, concern for, or probable (associated with a specific diagnosi s that is being evaluated, monitored, or treated as if it exists) are acceptable and can be coded in the inpatient se tting, when documented at the time of discharge. Please use your independent medical judgment in providing your response. THIS QUERY IS PART OF THE PERMANENT MEDICAL RECORD
[2025-03-08 11:53] LABS: Glucose, Whole Blood 135 mg/dL (60-115)
[2025-03-08] MEDS: ALPRAZolam 0.5 MG TABLET 1 MG PO ×2 (12:27→19:33)
[2025-03-08] MEDS: Heparin Sodium,Porcine 5,000 UNIT/ML VIAL 5000 UNIT SUBCUT ×2 (12:28→20:58)
[2025-03-08 16:14] LABS: Glucose, Whole Blood 134 mg/dL (60-115)
--- NOTE | 2025-03-08 18:25 | PC.NURSE ---
Assumed care at 0700. At start of shift pt remains intubated with propofol and levophed drips running. Upon initial assessment, pt ORTEGA, grimaces; does not follow commands or open eyes. Echocardiogram performed at approx 0800. Per MD, sedation vacation started at approx 0913. Pt restless/agitated in bed at approx 0930. Pt switched to PSV of 6/5 with fio2 of 40% at 0934. Pt shakes his head ?no? when asked to follow commands. Pt reaching for ET tube. MD made aware. MD placed order for extubation. Pt extubated at 0950. Oral suction provided. Pt able to cough and speak. Pt placed on 2L o2 via NC. Pt?s speech is at times nonsensical, stating among other things that ?[employer] poisoned me.? According to spouse, this is not unusual for pt. Spouse states that pt has had a noticeable neurological decline over the past six months. Pt passed bedside swallow eval at approx 1230. MD added diabetic diet. See MAR and assessments for further details. Pt repositioned q2hr as tolerated. Bed in lowest position and locked.
[2025-03-08] MEDS: Epoetin Alfa-epbx 10,000 UNIT/ML VIAL 20000 UNIT SUBCUT (19:36)
[2025-03-08 20:51] LABS: Glucose, Whole Blood 182 mg/dL (60-115)
[2025-03-08] MEDS: Insulin Lispro 100 UNIT/ML 3 ML VIAL SUBCUT (20:59)
[2025-03-09] VITALS (22 sets, daily range): BP systolic 122–158; BP diastolic 54–79; PULSE 63–74; RESP 16–30; TEMP 36.1–36.7; O2SAT 90–100; BMI 22.6; BMI 21.8
[2025-03-09] MEDS: HYDROmorphone HCl 1 MG/ML SYRINGE IVPUSH ×7 (02:01→20:06)
[2025-03-09 04:39] LABS: VBG Base Excess 14.7 mmol/L; VBG HCO3 35 mmol/L (22-26); VBG pCO2 31 mmHg; VBG pH 7.67 (7.32-7.43); VBG pO2 57 mmHg
[2025-03-09 04:52] LABS: MANUAL DIFF FLAG NO
[2025-03-09 04:54] LABS: Basophils Absolute Auto 0.1 X10*3/uL (0.0-0.2); Basophils Percent Auto 0.4 % (0-2); Eosinophils Absolute Auto 0.1 X10*3/uL (0.0-0.4); Eosinophils Percent Auto 0.5 % (0-4); Imm Gran Abs Auto 0.05 X10*3/uL (0.00-0.03); Imm Gran Pct Auto 0.4 % (0.0-0.4); Lymphocytes Absolute Auto 1.4 X10*3/uL (1.2-4.9); Lymphocytes Percent Auto 11.5 % (20-40); Mean Corpuscular HGB Conc 32.2 g/dl (31.0-36.0); Mean Corpuscular Hemoglobin 31.6 pg (27.0-33.0); Mean Corpuscular Volume 98.1 fL (80.0-98.0); Mean Platelet Volume 11.2 fL (9.4-12.4); Monocytes Absolute Auto 1.2 X10*3/uL (0.1-1.2); NRBC Pct Auto 0.3 /100WBC (0.0-0.2); Neutrophils Absolute Auto 9.1 x10*3/uL (2.0-8.3); Neutrophils Percent Auto 77.2 % (45-73); Platelet Count 157 X10*3/uL (160-400); Red Blood Count 2.06 X10*6/uL (4.60-5.80); Red Cell Distribution Width 16.2 % (11.0-16.0); White Blood Count 11.8 X10*3/uL (4.8-10.8)
[2025-03-09 05:03] LABS: Hematocrit 20.2 % (42.0-52.0)
[2025-03-09 05:18] LABS: Alanine Aminotransferase 405 U/L (0-40); Albumin Level 3.9 g/dL (3.5-5.0); Alkaline Phosphatase 76 U/L (39-117); Anion Gap 21 (12-20); Aspartate Amino Transferase 398 U/L (5-37); Bilirubin Total 0.8 mg/dL (0.0-1.0); Blood Urea Nitrogen 41 mg/dL (9-16); Calcium 8.3 mg/dL (8.4-10.2); Carbon Dioxide 27 mmol/L (22-29); Chloride 95 mmol/L (96-108); Creatinine Clr Calc Pharmacy 8.5; Estimated Glomerular Filt Rate 8; Glucose Random 129 mg/dL (60-115); Magnesium 2.4 mg/dL (1.6-2.6); Potassium 4.1 mmol/L (3.3-5.1); Sodium 139 mmol/L (135-145)
[2025-03-09 05:26] LABS: Venous Blood Gas Refer to POC result
[2025-03-09 07:19] LABS: Glucose, Whole Blood 135 mg/dL (60-115)
[2025-03-09] MEDS: ALPRAZolam 0.5 MG TABLET 1 MG PO ×2 (07:31→20:06)
[2025-03-09] MEDS: 0.9 % Sodium Chloride Flush 3 ML SYRINGE IVFLUSH ×4 (07:31→20:09)
[2025-03-09] MEDS: Sevelamer Carbonate Tablet 800 MG TABLET 1600 MG PO ×3 (07:31→17:06)
[2025-03-09 09:07] LABS: Hemoglobin 6.5 g/dl (14.0-18.0)
--- NOTE | 2025-03-09 09:50 | P.PNCC_ITS ---
Subjective Subjective Date of Service: 03/09/25 Interval History: 70-year-old gentleman with underlying diabetes mellitus, ESRD on hemodialysis with suboptimal compliance, COPD, hypotension admitted on 03/07/2025 with dyspnea secondary to noncompliance with hemodialysis. Hospital course significant for what appears to be hypoxia/bradycardic cardiac arrest status post return of spontaneous circulation after approximately 5 rounds of CPR, intubated during CPR and transferred to intensive care unit. Post CPR patient with significant metabolic acidosis and hypoxia requiring emergent hemodialysis. Extubated uneventfully on 03/08/2025. Overnight with drop in hemoglobin, appears to be dilutional. Patient to receive 1 unit of packed red blood cells. Critical Care Time (minutes): 0 Physical Exam 2 Vital Signs: Vital Signs: Last Vital Signs Temp 97.1 F 03/09/25 08:00 Pulse 67 03/09/25 09:00 Resp 26 H 03/09/25 09:00 BP 151/77 H 03/09/25 09:00 Pulse Ox 91 L 03/09/25 09:00 O2 Del Method Nasal Cannula 03/09/25 09:00 O2 Flow Rate 1 03/09/25 09:00 FiO2 40 03/08/25 10:11 Oxygen Flow Rate 6 03/07/25 17:17 BMI result Body Mass Index 22.6 Const: General: no acute distress, alert and awake Eyes: Sclerae: sclerae normal EOM: EOMs intact bilaterally Neck: Neck: Yes no lymphadenopathy, Yes trachea midline and Yes supple Resp: Effort & Inspection: normal respiratory effort and no respiratory distress Auscultation: clear to auscultation bilaterally Cardio: Rate: regular rate Rhythm: regular rhythm Heart sounds: no gallops, no murmurs and no rubs GI: Palpation (GI): Soft to palpation and Other GI palpation findings present ( Nontender) Auscultation: normal bowel sounds Extrem: General: Yes no pedal edema, No clubbing and No cyanosis Objective Data Labs 03/09/25 04:31 03/09/25 04:31 Labs: Laboratory Results - last 24 hr 03/08/25 03/08/25 03/08/25 11:45 16:10 20:48 WBC RBC Hgb Hct MCV MCH MCHC RDW Plt Count MPV Immature Gran % (Auto) Neut % (Auto) Lymph % (Auto) [place] % (Auto) Eos % (Auto) Baso % (Auto) Lymph # (Auto) [place] # (Auto) Eos # (Auto) Baso # (Auto) Abs Immat Gran (auto) Absolute Neuts (auto) Absolute Nucleated RBC Nucleated RBC % (auto) VBG pH VBG pCO2 VBG pO2 VBG HCO3 VBG O2 Saturation VBG Base Excess Sodium Potassium Chloride Carbon Dioxide Anion Gap BUN Creatinine Estim Creat Clear Calc Estimated GFR POC Glucose 135 H 134 H 182 H Random Glucose Calcium Phosphorus Magnesium Total Bilirubin AST ALT Alkaline Phosphatase Total Protein Albumin Blood Type Antibody Screen Crossmatch 03/09/25 03/09/25 03/09/25 04:31 04:36 06:01 WBC 11.8 H RBC 2.06 L Hgb 6.5 L* Hct 20.2 L* MCV 98.1 H D MCH 31.6 MCHC 32.2 RDW 16.2 H Plt Count 157 L D MPV 11.2 Immature Gran % (Auto) 0.4 Neut % (Auto) 77.2 H Lymph % (Auto) 11.5 L [place] % (Auto) 10.0 Eos % (Auto) 0.5 Baso % (Auto) 0.4 Lymph # (Auto) 1.4 [place] # (Auto) 1.2 Eos # (Auto) 0.1 Baso # (Auto) 0.1 Abs Immat Gran (auto) 0.05 H Absolute Neuts (auto) 9.1 H Absolute Nucleated RBC 0.030 H Nucleated RBC % (auto) 0.3 H VBG pH 7.67 H* VBG pCO2 31 VBG pO2 57 VBG HCO3 35 H VBG O2 Saturation Not Reportable VBG Base Excess 14.7 Sodium 139 Potassium 4.1 D Chloride 95 L Carbon Dioxide 27 Anion Gap 21 H BUN 41 H Creatinine 7.16 H* Estim Creat Clear Calc 8.5 Estimated GFR 8 POC Glucose Random Glucose 129 H Calcium 8.3 L D Phosphorus 4.0 Magnesium 2.4 Total Bilirubin 0.8 AST 398 H ALT 405 H Alkaline Phosphatase 76 Total Protein 6.0 L Albumin 3.9 Blood Type A Positive Antibody Screen NEGATIVE Crossmatch See Detail 03/09/25 07:16 WBC RBC Hgb Hct MCV MCH MCHC RDW Plt Count MPV Immature Gran % (Auto) Neut % (Auto) Lymph % (Auto) [place] % (Auto) Eos % (Auto) Baso % (Auto) Lymph # (Auto) [place] # (Auto) Eos # (Auto) Baso # (Auto) Abs Immat Gran (auto) Absolute Neuts (auto) Absolute Nucleated RBC Nucleated RBC % (auto) VBG pH VBG pCO2 VBG pO2 VBG HCO3 VBG O2 Saturation VBG Base Excess Sodium Potassium Chloride Carbon Dioxide Anion Gap BUN Creatinine Estim Creat Clear Calc Estimated GFR POC Glucose 135 H Random Glucose Calcium Phosphorus Magnesium Total Bilirubin AST ALT Alkaline Phosphatase Total Protein Albumin Blood Type Antibody Screen Crossmatch Microbiology Microbiology Results: Microbiology 03/08/25 02:10 Aspirate - Endotracheal Tube Aspirate Gram Stain - Final 03/08/25 02:10 Aspirate - Endotracheal Tube Aspirate Sputum Culture - Preliminary Culture in progress. 03/07/25 18:01 Blood - Venous Blood Culture - Preliminary No growth after 24 hours. 03/07/25 17:54 Blood - Venous Blood Culture - Preliminary No growth after 24 hours. Progress Note: A&P Assessment and plan (1) Acute exacerbation of CHF (congestive heart failure): Status: Acute (2) Cardiac arrest: Status: Acute (3) ESRD needing dialysis: Status: Acute (4) Diabetes: Status: Acute Plan Assessment: 70-year-old gentleman with underlying ESRD on hemodialysis with poor compliance admitted with acute hypoxic respiratory failure further complicated by hypoxia/bradycardia cardiac arrest, now status post return of spontaneous circulation after 5 rounds of CPR Plan: Neuro: No acute issues. Cardiac: Cardiac arrest status post resuscitation, 2D echo with no acute findings. Pulmonary: Intubated during CPR, also acute hypoxic respiratory failure secondary to poor compliance with hemodialysis. Now status post urgent hemodialysis, extubated uneventfully on 03/08/2025. Renal: ESRD on hemodialysis. Nephrology service care appreciated. Endo: No acute issues. Underlying diabetes mellitus. GI: No acute issues. ID: No acute issues Heme/Onc: Dilutional anemia, patient to receive 1 unit of packed red blood cells. Psych: No acute issues. Miscellaneous: No acute issues. Prophylaxis: Lovenox Diet: Regular Quality Stroke Does the patient have a stroke diagnosis?: No VTE Prior VTE?: No VTE Risk Level:: Medical - moderate - high VTE Device Contraindication: Treatment Not Indicated VTE Drug Contraindication: N/A - Med Ordered
[2025-03-09 11:13] LABS: Glucose, Whole Blood 124 mg/dL (60-115)
--- NOTE | 2025-03-09 12:15 | P.CDIM_ITS ---
PROVIDER RESPONSE TEXT: To clarify, the appropriate diagnosis supported by the clinical indicators: Diastolic: Chronic QUERY TEXT: PHYSICIAN'S DOCUMENTATION REQUEST Date of Query: 03/09/2025 11:16 AM EDT Patient Name: PRIYA BO Admit Date: 03/07/2025 Dear Alessandro Boss MD, A review of the medical record indicates additional documentation may be needed. Please review below and update the documentation accordingly. Clinical Indicators: H&P & ED 03/07/25 - Past medical history: Congestive heart failure BNP 63012 H [id number] H Sepsis bolus exclusion: CHF/Renal failure ESRD, noncompliant with dialysis. No pedal edema. ICU Progress note 03/09/25 - Assessment and Plan - Acute exacerbation of CHF (congestive heart failure ) Please provide further specificity regarding the most likely type and acuity of CHF you are evaluatin g, treating, or monitoring. Systolic Please specify if Acute, Chronic, or Acute on chronic, or Unable to determine Diastolic Please specify if Acute, Chronic, or Acute on chronic, or Unable to determine Combined Systolic/Diastolic Please specify if Acute, Chronic, or Acute on chronic, or Unable to determine Other (explain) Clinically unable to determine (explain) Thank you, Tesha Velasquez, CCS, CDIS Use of terms such as suspected, likely, concern for, or probable (associated with a specific diagnosi s that is being evaluated, monitored, or treated as if it exists) are acceptable and can be coded in the inpatient se tting, when documented at the time of discharge. Please use your independent medical judgment in providing your response. THIS QUERY IS PART OF THE PERMANENT MEDICAL RECORD
--- NOTE | 2025-03-09 12:41 | P.PNNP_ITS ---
Subjective Subjective Date of Service: 03/09/25 Interval history: Patient is a 70 y/o male with a medical history of ESRD on HD (M,W,F), DM, hypothyroidism, HLD, anemia of chronic disease, GERD, and mood disorder. Presented 03/07 with shortness of breath, had apparently missed x3 HD sessions due to chronic pain. cardiac arrest 03/07 evening, ROSC acheived and pt intubated and admitted to ICU, requiring vasopressor support. Nephrology consulted for ESRD, s/p cardio respiratory arrest management. patient was dialyzed last evening, potassium low at 3.1, serum CO2 32 this a.m. (17 last evening, now on bicarb drip). Lactic acid 8.0 03/07 evening. creatinine 7.8 proir to HD, is now 2.[address] 03/07 with bilateral lobe consolidations concerning for pneumonia, bilateral pleural effusions (moderate), pulmonary edema and reactive lymphadenopathy. white count is 28.9 03/07 evening. patient is intubated and sedated at bedside and unable to provide history. Physical Exam 2 Vital Signs: Vital Signs: Last Vital Signs Temp 97.5 F 03/09/25 11:16 Pulse 68 03/09/25 11:16 Resp 17 03/09/25 11:16 BP 140/65 H 03/09/25 11:16 Pulse Ox 93 03/09/25 10:00 O2 Del Method Nasal Cannula 03/09/25 10:00 O2 Flow Rate 1 03/09/25 10:00 FiO2 40 03/08/25 10:11 Oxygen Flow Rate 6 03/07/25 17:17 BMI result Body Mass Index 22.6 Const: General: other (intubated/sedated.) Resp: Effort & Inspection: normal respiratory effort Auscultation: clear to auscultation bilaterally Cardio: Rate: regular rate Rhythm: regular rhythm Heart sounds: S1 normal heart sound present, S2 normal heart sound present and Murmur heart sound present GI: Palpation (GI): Soft to palpation and nontender Skin: Rashes: no rashes Extrem: General: No edema and No pedal edema Objective Data Labs 03/09/25 04:31 03/09/25 04:31 Labs: Laboratory Results - last 24 hr 03/08/25 03/08/25 03/09/25 16:10 20:48 04:31 WBC 11.8 H RBC 2.06 L Hgb 6.5 L* Hct 20.2 L* MCV 98.1 H D MCH 31.6 MCHC 32.2 RDW 16.2 H Plt Count 157 L D MPV 11.2 Immature Gran % (Auto) 0.4 Neut % (Auto) 77.2 H Lymph % (Auto) 11.5 L [place] % (Auto) 10.0 Eos % (Auto) 0.5 Baso % (Auto) 0.4 Lymph # (Auto) 1.4 [place] # (Auto) 1.2 Eos # (Auto) 0.1 Baso # (Auto) 0.1 Abs Immat Gran (auto) 0.05 H Absolute Neuts (auto) 9.1 H Absolute Nucleated RBC 0.030 H Nucleated RBC % (auto) 0.3 H VBG pH VBG pCO2 VBG pO2 VBG HCO3 VBG O2 Saturation VBG Base Excess Sodium 139 Potassium 4.1 D Chloride 95 L Carbon Dioxide 27 Anion Gap 21 H BUN 41 H Creatinine 7.16 H* Estim Creat Clear Calc 8.5 Estimated GFR 8 POC Glucose 134 H 182 H Random Glucose 129 H Calcium 8.3 L D Phosphorus 4.0 Magnesium 2.4 Total Bilirubin 0.8 AST 398 H ALT 405 H Alkaline Phosphatase 76 Total Protein 6.0 L Albumin 3.9 Blood Type Antibody Screen Crossmatch 03/09/25 03/09/25 03/09/25 04:36 06:01 07:16 WBC RBC Hgb Hct MCV MCH MCHC RDW Plt Count MPV Immature Gran % (Auto) Neut % (Auto) Lymph % (Auto) [place] % (Auto) Eos % (Auto) Baso % (Auto) Lymph # (Auto) [place] # (Auto) Eos # (Auto) Baso # (Auto) Abs Immat Gran (auto) Absolute Neuts (auto) Absolute Nucleated RBC Nucleated RBC % (auto) VBG pH 7.67 H* VBG pCO2 31 VBG pO2 57 VBG HCO3 35 H VBG O2 Saturation Not Reportable VBG Base Excess 14.7 Sodium Potassium Chloride Carbon Dioxide Anion Gap BUN Creatinine Estim Creat Clear Calc Estimated GFR POC Glucose 135 H Random Glucose Calcium Phosphorus Magnesium Total Bilirubin AST ALT Alkaline Phosphatase Total Protein Albumin Blood Type A Positive Antibody Screen NEGATIVE Crossmatch See Detail 03/09/25 11:09 WBC RBC Hgb Hct MCV MCH MCHC RDW Plt Count MPV Immature Gran % (Auto) Neut % (Auto) Lymph % (Auto) [place] % (Auto) Eos % (Auto) Baso % (Auto) Lymph # (Auto) [place] # (Auto) Eos # (Auto) Baso # (Auto) Abs Immat Gran (auto) Absolute Neuts (auto) Absolute Nucleated RBC Nucleated RBC % (auto) VBG pH VBG pCO2 VBG pO2 VBG HCO3 VBG O2 Saturation VBG Base Excess Sodium Potassium Chloride Carbon Dioxide Anion Gap BUN Creatinine Estim Creat Clear Calc Estimated GFR POC Glucose 124 H Random Glucose Calcium Phosphorus Magnesium Total Bilirubin AST ALT Alkaline Phosphatase Total Protein Albumin Blood Type Antibody Screen Crossmatch Microbiology Microbiology Results: Microbiology 03/08/25 02:10 Aspirate - Endotracheal Tube Aspirate Gram Stain - Final 03/08/25 02:10 Aspirate - Endotracheal Tube Aspirate Sputum Culture - Preliminary Culture in progress. 03/07/25 18:01 Blood - Venous Blood Culture - Preliminary No growth after 24 hours. 03/07/25 17:54 Blood - Venous Blood Culture - Preliminary No growth after 24 hours. Procedures Date of Service Date of Service: 03/09/25 Assessment & Plan Assessment and plan (1) ESRD needing dialysis: Status: Acute (2) Acute hypoxic respiratory failure: Status: Acute Plan ESRD on HD- though patient is MWF in clinic, in rehab where he is consistently discharged he is TTS, so will get HD today to get him on TTS schedule access: LUE AV fistula appears euvolemic continue sevelamer, low phos diet H&H dropped to 6.5/20.2, patient receiving procrit 20,000 units 3x weekly; recommend workup for acute blood loss anemia low potassium, phosphorous, and sodium diet fluid restriction 1.5L continue to monitor electrolytes renal function studies daily regular blood pressure checks will continue to follow Discussed with Dr Peraza Time Spent With Patient Time: Total time managing care of this patient today ____ minutes. Progress Note: Quality Stroke Does the patient have a stroke diagnosis?: No
[2025-03-09 16:42] LABS: Glucose, Whole Blood 119 mg/dL (60-115)
[2025-03-09] MEDS: Insulin Lispro 100 UNIT/ML 3 ML VIAL SUBCUT (20:09)
[2025-03-09 20:10] LABS: Glucose, Whole Blood 179 mg/dL (60-115)
[2025-03-09] MEDS: oxyCODONE HCl Immed Release 5 MG TABLET PO (21:59)
[2025-03-10] MEDS: HYDROmorphone HCl 1 MG/ML SYRINGE IVPUSH ×7 (00:29→22:25)
[2025-03-10 04:00] VITALS: BP 143/67; PULSE 69; RESP 16; TEMP 36.2; O2SAT 95
[2025-03-10] MEDS: oxyCODONE HCl Immed Release 5 MG TABLET PO ×4 (04:20→21:53)
[2025-03-10 07:16] LABS: Glucose, Whole Blood 137 mg/dL (60-115)
[2025-03-10 07:21] VITALS: BP 144/70; PULSE 66; RESP 16; TEMP 36.3; O2SAT 98
[2025-03-10] MEDS: ALPRAZolam 0.5 MG TABLET 1 MG PO ×2 (07:38→19:21)
[2025-03-10] MEDS: Sevelamer Carbonate Tablet 800 MG TABLET 1600 MG PO ×3 (07:38→16:42)
[2025-03-10] MEDS: 0.9 % Sodium Chloride Flush 3 ML SYRINGE IVFLUSH ×3 (07:38→19:22)
--- NOTE | 2025-03-10 08:54 | P.PNNP_ITS ---
Subjective Subjective Date of Service: 03/10/25 Interval history: Patient is a 70 y/o male with a medical history of ESRD on HD (M,W,F), DM, hypothyroidism, HLD, anemia of chronic disease, GERD, and mood disorder. Presented 03/07 with shortness of breath, had apparently missed x3 HD sessions due to chronic pain. cardiac arrest 03/07 evening, ROSC acheived and pt intubated and admitted to ICU, requiring vasopressor support. following for ESRD on HD. patient awake and alert at bedside, reports ongoing chronic pain, widespread. denies shortness of breath or other new symptoms. received HD yesterday 03/09 Physical Exam 2 Vital Signs: Vital Signs: Last Vital Signs Temp 97.4 F 03/10/25 07:21 Pulse 66 03/10/25 07:21 Resp 16 03/10/25 07:21 BP 144/70 H 03/10/25 07:21 Pulse Ox 98 03/10/25 07:21 O2 Del Method Room Air 03/10/25 07:21 O2 Flow Rate 1 03/09/25 11:00 FiO2 40 03/08/25 10:11 Oxygen Flow Rate 6 03/07/25 17:17 BMI result Body Mass Index 21.8 Const: General: no acute distress, alert and awake Resp: Effort & Inspection: normal respiratory effort and able to speak in complete sentences Auscultation: clear to auscultation bilaterally Cardio: Rate: regular rate Rhythm: regular rhythm Heart sounds: S1 normal heart sound present, S2 normal heart sound present and Murmur heart sound present GI: Palpation (GI): Soft to palpation and nontender Skin: Rashes: no rashes Extrem: General: No edema and No pedal edema Objective Data Labs 03/09/25 04:31 03/09/25 04:31 Labs: Laboratory Results - last 24 hr 03/09/25 03/09/25 03/09/25 04:31 06:01 11:09 Hgb 6.5 L* POC Glucose 124 H Blood Type A Positive Antibody Screen NEGATIVE Crossmatch See Detail 03/09/25 03/09/25 03/10/25 16:39 20:07 07:04 Hgb POC Glucose 119 H 179 H 137 H Blood Type Antibody Screen Crossmatch Microbiology Microbiology Results: Microbiology 03/08/25 02:10 Aspirate - Endotracheal Tube Aspirate Gram Stain - Final 03/08/25 02:10 Aspirate - Endotracheal Tube Aspirate Sputum Culture - Preliminary Culture in progress. 03/07/25 18:01 Blood - Venous Blood Culture - Preliminary No growth after 48 hours. 03/07/25 17:54 Blood - Venous Blood Culture - Preliminary No growth after 48 hours. Procedures Date of Service Date of Service: 03/10/25 Assessment & Plan Assessment and plan (1) ESRD needing dialysis: Status: Acute (2) Acute hypoxic respiratory failure: Status: Acute Plan ESRD on HD- though patient is MWF in clinic, in rehab where he is consistently discharged he is TTS, HD yesterday to stay on TTS schedule for rehab access: LUE AV fistula appears euvolemic continue sevelamer, low phos diet H&H dropped to 6.5/20.2 on 03/09, patient receiving procrit 20,000 units 3x weekly; recommend workup for acute blood loss anemia low potassium, phosphorous, and sodium diet fluid restriction 1.5L continue to monitor electrolytes renal function studies daily regular blood pressure checks will continue to follow Discussed with Dr Peraza Time Spent With Patient Time: Total time managing care of this patient today ____ minutes. Progress Note: Quality Stroke Does the patient have a stroke diagnosis?: No
--- NOTE | 2025-03-10 09:21 | HO.PM.IMPN ---
Subjective Subjective Date of Service: 03/10/25 Interval History: rib pain Physical Exam Vital Signs: Vital Signs: Last Vital Signs Temp 97.4 F 03/10/25 07:21 Pulse 66 03/10/25 07:21 Resp 16 03/10/25 07:21 BP 144/70 H 03/10/25 07:21 Pulse Ox 98 03/10/25 07:21 O2 Del Method Room Air 03/10/25 07:21 O2 Flow Rate 1 03/09/25 11:00 FiO2 40 03/08/25 10:11 Oxygen Flow Rate 6 03/07/25 17:17 BMI result Body Mass Index 21.8 General: AO X 3, no acute distress Resp: CTA bilateral, no accessory muscles used CVS: S1,S2,RRR GI: soft, non tender, non distended Neuro: motor grossly intact, alert Psych: appropriate affect, appropriate insight chest sore Objective Data Active Medications Acetaminophen (Acetaminophen 325 Mg Tablet) 975 mg PO Q6H PRN PRN Reason: Pain, Mild 1-3,fever,headache Albuterol/Ipratropium (Albuterol/Iprat 2.5/0.5mg 3 Ml Ampul.Neb) 3 ml INHALE Q4H PRN PRN Reason: Shortness of Breath/Wheezing Alprazolam (Alprazolam 0.5 Mg Tablet) 1 mg PO BID [facility] Last Admin: 03/10/25 07:38 Dose: 1 mg Documented By: KARRIE Alprazolam (Alprazolam 0.5 Mg Tablet) 0.5 mg PO DAILY PRN PRN Reason: Anxiety Calcium Carbonate (Calcium Carbonate 750 Mg Tab.Chew) 750 mg PO Q4H PRN PRN Reason: Heartburn Dextrose (Dextrose 50 % 25 Gm/50 Ml Syringe) 25 gm IVPUSH Q15M PRN; Protocol PRN Reason: per Hypoglycemia Standing Ord. Epoetin Lebron-epbx (Epoetin Lebron-Epbx 10,000 Unit/Ml Vial) 20,000 unit SUBCUT [id number] [facility] Last Admin: 03/08/25 19:36 Dose: 20,000 unit Documented By: JONELLE Comments: Delayed administration due to waiting for med from pharmacy Glucose (Glucose Gel 15 Gm Gel..Gram.) 15 gm PO Q15M PRN; Protocol PRN Reason: per Hypoglycemia Standing Ord. Hydromorphone HCl (Hydromorphone Hcl 1 Mg/Ml Syringe) 1 mg IVPUSH Q3H PRN; Protocol PRN Reason: Pain, Severe (Pain Scale 7-10) Last Admin: 03/10/25 07:38 Dose: 1 mg Documented By: KARRIE Insulin Human Lispro (Insulin Lispro 100 Unit/Ml 3 Ml Vial) 0 unit SUBCUT QIDACHS [facility]; Protocol Last Admin: 03/10/25 07:34 Dose: Not Given Documented By: KARRIE Non-Admin Reason: No Insulin Coverage Oxycodone HCl (Oxycodone Hcl Immed Release 5 Mg Tablet) 5 mg PO Q6H [facility] Last Admin: 03/10/25 04:20 Dose: 5 mg Documented By: TAMMY Sevelamer Carbonate (Sevelamer Carbonate Tablet 800 Mg Tablet) 1,600 mg PO TIDWM [facility] Last Admin: 03/10/25 07:38 Dose: 1,600 mg Documented By: KARRIE Sodium Chloride (0.9 % Sodium Chloride Flush 3 Ml Syringe) [facility] Last Admin: 03/10/25 07:38 Dose: 3 ml Documented By: KARRIE Labs 03/09/25 04:31 03/09/25 04:31 Labs: Laboratory Results - last 24 hr 03/09/25 03/09/25 03/09/25 06:01 11:09 16:39 POC Glucose 124 H 119 H Blood Type A Positive Antibody Screen NEGATIVE Crossmatch See Detail 03/09/25 03/10/25 20:07 07:04 POC Glucose 179 H 137 H Blood Type Antibody Screen Crossmatch Microbiology Microbiology Results: Microbiology 03/08/25 02:10 Gram Stain - Final Aspirate - Endotracheal Tube Aspirate Sputum Culture - Preliminary Culture in progress. 03/07/25 18:01 Blood Culture - Preliminary Blood - Venous No growth after 48 hours. 03/07/25 17:54 Blood Culture - Preliminary Blood - Venous No growth after 48 hours. Assessment and Plan (1) Cardiac arrest: Status: Acute Plan 70M PMH diabetes mellitus, ESRD on hemodialysis with suboptimal compliance, COPD, hypotension admitted on 03/07/2025 with dyspnea secondary to noncompliance with hemodialysis. course complicated by cardiac arrest with ROSC after 5 rounds, extubated 03/08/25, downgraded 03/09/25 Acute hypoxic respiratory failure secondary to acute pulmonary edema due to end-stage renal disease with poor compliance complicated by cardiac arrest Now on room air Continue hemodialysis Pain control for pain related to resuscitation efforts Diabetes Insulin sliding scale Anemia Acute on chronic likely related to end-stage renal disease Transfused 1 unit, monitor DVT prophylaxis- hep sq DNR/DNI reason for continued hospitalization: dispo planning Quality Stroke Does the patient have a stroke diagnosis?: No VTE Prior VTE?: No VTE Risk Level:: Medical - moderate - high VTE Device Contraindication: Treatment Not Indicated VTE Drug Contraindication: N/A - Med Ordered
[2025-03-10 10:13] LABS: Hematocrit 22.5 % (42.0-52.0); Hemoglobin 7.5 g/dl (14.0-18.0); Mean Corpuscular HGB Conc 33.3 g/dl (31.0-36.0); Mean Corpuscular Hemoglobin 32.3 pg (27.0-33.0); Mean Platelet Volume 11.2 fL (9.4-12.4); NRBC Pct Auto 0.4 /100WBC (0.0-0.2); Platelet Count 193 X10*3/uL (160-400); Red Blood Count 2.32 X10*6/uL (4.60-5.80); Red Cell Distribution Width 16.2 % (11.0-16.0); White Blood Count 14.5 X10*3/uL (4.8-10.8)
[2025-03-10 10:22] LABS: Anion Gap 19 (12-20); Blood Urea Nitrogen 36 mg/dL (9-16); Calcium 8.6 mg/dL (8.4-10.2); Carbon Dioxide 29 mmol/L (22-29); Chloride 92 mmol/L (96-108); Creatinine Clr Calc Pharmacy 9.8; Estimated Glomerular Filt Rate 9; Glucose Random 183 mg/dL (60-115); Phosphorus 2.4 mg/dL (2.7-4.5); Potassium 3.5 mmol/L (3.3-5.1); Sodium 136 mmol/L (135-145)
--- NOTE | 2025-03-10 10:33 | MHC.CLN ---
F/U PT EXTUBATED AND TRANSFERRED TO MEDICAL FLOOR DIET RX: 2000DM 2GM NA LOW K+-APPROPRIATE PO INTAKE 25% X1 MEAL FRAGILE SKIN; [address] TO FOLLOW WEEKLY
[2025-03-10 11:05] LABS: Glucose, Whole Blood 163 mg/dL (60-115)
[2025-03-10] MEDS: Insulin Lispro 100 UNIT/ML 3 ML VIAL SUBCUT ×3 (11:09→21:53)
[2025-03-10] MEDS: Heparin Sodium,Porcine 5,000 UNIT/ML VIAL 5000 UNIT SUBCUT ×2 (11:09→21:58)
[2025-03-10] MEDS: polyethylene glycoL 3350 17 GM POWD.PACK PO (11:10)
[2025-03-10 11:32] VITALS: BP 154/67; PULSE 68; RESP 18; TEMP 36.3
[2025-03-10 11:40] VITALS: BP 154/67; PULSE 68
[2025-03-10] MEDS: ALPRAZolam 0.5 MG TABLET PO (12:14)
--- NOTE | 2025-03-10 12:32 | MHC.CM.PN ---
PT is recommending STR; CM will follow.
[2025-03-10 15:26] VITALS: BP 172/81; PULSE 65; RESP 16; TEMP 36.2; O2SAT 96
--- NOTE | 2025-03-10 16:00 | MHC.CM.PN ---
Patient is medically cleared for dc to SNF/STR today. Patient will return to [facility] today at 5:30 PM, via [facility]. CM spoke with /HCP/Kyara @ [phone] and informed her of the dc plan. Last IMM was addressed on 03/08/2025.
--- NOTE | 2025-03-10 16:04 | PM.DS ---
DS: Providers Provider Date of Service: 03/10/25 Date of admission: 03/07/25 19:25 Date of discharge: 03/10/25 Primary care physician: Matias Tan MD Consults: 03/07/25 21:01 Consult to Nephrology Routine Consulting Provider: [facility] [place] Meyers Reason for consultation: HD MWF Has provider been notified: No 03/07/25 22:37 Consult to Nephrology Stat Consulting Provider: [facility] Reason for consultation: ESRD HD cardio resp arrest Has provider been notified: Yes DS: Diagnosis Discharge Diagnosis (1) Cardiac arrest: Status: Acute DS: Summary Hospital Course Hospital Course: from initial hpi: 70-year-old male with a past medical history significant for ESRD on HD with frequent admissions due to noncompliance with dialysis, mood disorder, stage I COPD, insulin-dependent diabetes, hypothyroid, HLD, chronic anemia, GERD and HTN, who presented to the ED via EMS for ?cardiac arrest ?however the patient was found with a pulse and was in respiratory distress, hypoxic and diaphoretic. He was found to be 80% on room air, improved to 88% via non-rebreather, given a nebulizer and was maintaining at 4 L via NC in the ED, now recently on high-flow. He denies any chest pain or shortness of breath this morning. He has had a productive cough but no hemoptysis. He did go for a hemodialysis yesterday and was feeling okay at that time. He reports that he produces minimal urine, no urinary symptoms. The patient is a poor historian and also was having conversational dyspnea, therefore a full history was unable to be obtained hospital course: Patient was admitted for acute hypoxic respiratory failure secondary to acute pulmonary edema due to end-stage renal disease with poor compliance. This was further complicated by cardiac arrest. Patient achieved [place] after 5 rounds of CPR. Was given hemodialysis and quickly extubated next day. Patient then weaned down to room air. Other than pain from CPR much improved. Compliance with hemodialysis is strongly encouraged. Imaging did have question of pneumonia and will continue 7 days of Ceftin for possible pneumonia. For diabetes was continued on insulin. For anemia due to end-stage renal disease transfused 1 unit. Patient is feeling better will be discharged to fdc facility. He is expected require less than 30 days. Time Attestation Discharge Coordination Time (in mins): 37 Quality: Safe Use of Opioids Does Pt have an Active Cancer Diagnosis on the Problem List?: No Quality: Stroke Does the patient have a stroke diagnosis?: No Physical Exam Vital Signs: Vital Signs: Last Vital Signs Temp 97.2 F 03/10/25 15:26 Pulse 65 03/10/25 15:26 Resp 16 03/10/25 15:26 BP 172/81 H 03/10/25 15:26 Pulse Ox 96 03/10/25 15:26 O2 Del Method Room Air 03/10/25 15:26 O2 Flow Rate 1 03/09/25 11:00 FiO2 40 03/08/25 10:11 Oxygen Flow Rate 6 03/07/25 17:17 BMI result Body Mass Index 21.8 General: AO X 3, no acute distress Resp: CTA bilateral, no accessory muscles used CVS: S1,S2,RRR GI: soft, non tender, non distended Neuro: motor grossly intact, alert Psych: appropriate affect, appropriate insight chest sore DS: Data Data Completed and Pending Completed studies during hospitalization [Text1]: Procedures Assistance with Respiratory Ventilation, Less than 24 Consecutive Hours, Continuous Positive Airway Pressure (02/04/25) Control Bleeding in Gastrointestinal Tract, Via Natural or Artificial Opening Endoscopic (01/22/25) Excision of Esophagogastric Junction, Via Natural or Artificial Opening Endoscopic, Diagnostic (01/22/25) Excision of Stomach, Pylorus, Via Natural or Artificial Opening Endoscopic, Diagnostic (01/22/25) Insertion of Infusion Device into Upper Vein, Percutaneous Approach (02/24/25) Inspection of Lower Intestinal Tract, Via Natural or Artificial Opening Endoscopic (01/22/25) Performance of Urinary Filtration, Intermittent, Less than 6 Hours Per Day (02/24/25) Transfusion of Nonautologous Red Blood Cells into Peripheral Vein, Percutaneous Approach (02/04/25) Labs on day of discharge: Laboratory Results - last 24 hr 03/09/25 03/09/25 03/10/25 16:39 20:07 07:04 WBC RBC Hgb Hct MCV MCH MCHC RDW Plt Count MPV Absolute Nucleated RBC Nucleated RBC % (auto) Sodium Potassium Chloride Carbon Dioxide Anion Gap BUN Creatinine Estim Creat Clear Calc Estimated GFR POC Glucose 119 H 179 H 137 H Random Glucose Calcium Phosphorus 03/10/25 03/10/25 09:28 10:54 WBC 14.5 H RBC 2.32 L Hgb 7.5 L Hct 22.5 L MCV 97.0 MCH 32.3 MCHC 33.3 RDW 16.2 H Plt Count 193 MPV 11.2 Absolute Nucleated RBC 0.060 H Nucleated RBC % (auto) 0.4 H Sodium 136 Potassium 3.5 Chloride 92 L Carbon Dioxide 29 Anion Gap 19 BUN 36 H Creatinine 5.93 H* Estim Creat Clear Calc 9.8 Estimated GFR 9 POC Glucose 163 H Random Glucose 183 H Calcium 8.6 Phosphorus 2.4 L Preliminary micro results at discharge 03/07/25 18:01 Blood Culture - Preliminary Blood - Venous No growth after 48 hours. 03/07/25 17:54 Blood Culture - Preliminary Blood - Venous No growth after 48 hours. Discharge Plan Discharge Anticipated Discharge Date/Time: 03/10/25 15:59 Patient Disposition: Xfer [facility] Discharge Diagnosis: cardiac arrest Referrals: Vern Sherwood [Outside] - 1 Week Matias Tan MD [Primary Care Provider] - 1 Week Discharge Medications: New cefuroxime axetil 500 mg tablet 500 mg PO DAILY Qty: 7 0RF Continued levothyroxine 137 mcg tablet 1 tab PO DAILY@0600 atenolol 100 mg tablet 1 tab PO DAILY (DME) FreeStyle Lite Strips Strip MISCELLANEOUS TID (DME) pen needle, diabetic [BD Ultra-Fine Short Pen Needle] 31 gauge x 5/16 needle subcut DAILY Lokelma 10 gram Powder In Packet 10 g PO SUTUTHSA@0900 Rx Instructions: on non dialysis days sevelamer carbonate 800 mg tablet 1,600 mg PO TIDWM insulin glargine [Lantus U-100 Insulin] 100 unit/mL Solution 7 unit SUBCUT BEDTIME Qty: 10 0RF Rx Instructions: Pt does not take at home, something placed on last Admit, new orders not given at home acetaminophen 325 mg Tablet 650 mg PO Q6H PRN (Reason: Fever Or Pain) benztropine 0.5 mg Tablet 0.5 mg PO BID ascorbic acid (vitamin C) 250 mg Tablet 250 mg PO DAILY Nephro-Fernanda 0.8 mg Tablet 1 tab PO DAILY zinc sulfate 220 mg Capsule 220 mg PO DAILY Rx Instructions: end date 03/17/25 cholecalciferol (vitamin D3) 125 mcg (5,000 unit) Tablet 125 mcg PO SUTUTHSA clonazepam 1 mg Tablet 1 mg PO BID Qty: 10 0RF hydromorphone 4 mg tablet 4 mg PO Q3H PRN (Reason: Pain) Qty: 10 0RF Rx Instructions: Partial Fill upon patient request. atorvastatin 40 mg tablet 40 mg PO BEDTIME insulin lispro [Humalog KwikPen Insulin] 100 unit/mL insulin pen See Protocol subcut TIDAC PRN (Reason: Blood Glucose) Protocol: Insulin Correction Scale Less than or equal to 110 ---- Give (units): 0 111 to 150 Give (units): 0 151 to 200 Give (units): 2 201 to 250 Give (units): 4 251 to 300 Give (units): 6 301 to 350 Give (units): 8 Greater than 350 Give (units): 10 Call MD if Blood Glucose > : 350 Rx Instructions: Pt does not take at home, something placed on last Admit, new orders not given at home dextroamphetamine-amphetamine 20 mg tablet 20 mg PO BID midodrine 10 mg Tablet 10 mg PO MOWEFR@1645 PRN (Reason: Dialysis Hypotension) Qty: 0 0RF Discharge Orders: Discharge Order (Routine); Ordered 03/10/25 Ordered By: Denzel Villanueva Diet: Advance to usual diet Activity on Discharge: As tolerated Stand Alone Forms: Patient Portal Discharge page Print Language: Ecuadorean Care Plan Goals: recovery Health Concerns: cardiac arrest Plan of Treatment: complaince with hd, will give empiric ceftin for 7 days Assessment: see above
--- NOTE | 2025-03-10 16:22 | MHC.CM.PN ---
Per Vern Sherwood, pt will need HD today prior to him being able to discharge, they can accept him tomorrow 03/10. Tiffany/BLS cancelled, pts called and updated. Hospitalist notified.
[2025-03-10 16:28] LABS: Glucose, Whole Blood 191 mg/dL (60-115)
[2025-03-10 19:12] VITALS: BP 136/63; PULSE 67; RESP 18; TEMP 36.7; O2SAT 94
[2025-03-10 20:33] LABS: Glucose, Whole Blood 199 mg/dL (60-115)
[2025-03-11] VITALS: BP 138/67; PULSE 67; RESP 20; TEMP 36.5; O2SAT 98
[2025-03-11] MEDS: HYDROmorphone HCl 1 MG/ML SYRINGE IVPUSH ×2 (02:19→05:28)
[2025-03-11 03:17] VITALS: BP 151/70; PULSE 68; RESP 20; TEMP 36.7; O2SAT 96
[2025-03-11] MEDS: oxyCODONE HCl Immed Release 5 MG TABLET PO ×2 (03:45→10:09)
[2025-03-11 07:15] LABS: Hematocrit 22.9 % (42.0-52.0); Hemoglobin 7.7 g/dl (14.0-18.0); Mean Corpuscular HGB Conc 33.6 g/dl (31.0-36.0); Mean Corpuscular Hemoglobin 32.4 pg (27.0-33.0); Mean Corpuscular Volume 96.2 fL (80.0-98.0); Mean Platelet Volume 10.9 fL (9.4-12.4); NRBC Pct Auto 0.6 /100WBC (0.0-0.2); Platelet Count 204 X10*3/uL (160-400); Red Blood Count 2.38 X10*6/uL (4.60-5.80); Red Cell Distribution Width 15.8 % (11.0-16.0); White Blood Count 13.3 X10*3/uL (4.8-10.8)
[2025-03-11 07:44] VITALS: BP 170/74; PULSE 59; RESP 18; TEMP 36.3; O2SAT 94
[2025-03-11 07:52] LABS: Anion Gap 16 (12-20); Blood Urea Nitrogen 36 mg/dL (9-16); Calcium 8.9 mg/dL (8.4-10.2); Carbon Dioxide 28 mmol/L (22-29); Chloride 96 mmol/L (96-108); Creatinine Clr Calc Pharmacy 11.7; Estimated Glomerular Filt Rate 11; Glucose Random 140 mg/dL (60-115); Potassium 3.5 mmol/L (3.3-5.1); Sodium 136 mmol/L (135-145)
[2025-03-11 08:02] LABS: Glucose, Whole Blood 112 mg/dL (60-115)
--- NOTE | 2025-03-11 09:09 | MHC.CM.PN ---
Per MD patient medically cleared for dc, HD this morning. BLS transport booked for 11am to [facility]. HCP/ Kyara called and updated. IMM delivered. RN aware.
[2025-03-11 10:05] VITALS: BP 176/85; PULSE 65; RESP 18; TEMP 36.6; O2SAT 100
[2025-03-11] MEDS: Sevelamer Carbonate Tablet 800 MG TABLET 1600 MG PO (10:08)
[2025-03-11] MEDS: Heparin Sodium,Porcine 5,000 UNIT/ML VIAL 5000 UNIT SUBCUT (10:09)
[2025-03-11] MEDS: 0.9 % Sodium Chloride Flush 3 ML SYRINGE IVFLUSH (10:09)
[2025-03-11] MEDS: ALPRAZolam 0.5 MG TABLET 1 MG PO (10:09)
== END 2025-03-11 11:33 | disposition skilled nursing facility (03) | DRG 871 ==
LOC: HO.ED 19:17 → HO.EDOVER 19:34 → HO.ICU 22:20 → HO.IMC 03-09 10:36
PROVIDERS: Internal Medicine Pulmonary Disease; Nurse Practitioner Family; Physician Assistant Medical; Admitting Provider Student in an Organized Health Care Education/Training Program; Emergency Provider Emergency Medicine; PCP Family Medicine; Visit Provider Internal Medicine
DX: A41.9 Sepsis, unspecified organism (principal); I46.9 Cardiac arrest, cause unspecified; I50.33 Acute on chronic diastolic (congestive) heart failure; N18.6 End stage renal disease; J18.9 Pneumonia, unspecified organism; I13.2 Hypertensive heart and chronic kidney disease with heart failure and with stage 5 chronic kidney disease, or end stage renal disease; J44.0 Chronic obstructive pulmonary disease with (acute) lower respiratory infection; Z99.2 Dependence on renal dialysis; Z66 Do not resuscitate; D63.1 Anemia in chronic kidney disease; E78.5 Hyperlipidemia, unspecified; E11.22 Type 2 diabetes mellitus with diabetic chronic kidney disease; G89.29 Other chronic pain; Z20.822 Contact with and (suspected) exposure to COVID-19; Z91.158 Patient's noncompliance with renal dialysis for other reason; Z79.4 Long term (current) use of insulin; Z79.890 Hormone replacement therapy; Z79.899 Other long term (current) drug therapy
CPT/HCPCS: 0241U; 36415; 71045; 71250; 80048; 80053; 82803; 82947; 83605; 83735; 83880; 84100; 84484; 85025; 85027; 85610; 85730; 86850; 86900; 86901; 86923; 87040; 87070; 87205; 90999; 93005; 93306; 94002; 94003; 94640; 94799; 97162; 99285; J0171; J0461; J0692; J1171; J1271; J1644; J2470; J2543; J2704; J3370; J3371; J3475; P9016; P9047; Q5106

== ENCOUNTER → 2025-03-07 17:10 | Outpatient (BNV) | payer MEDICARE, SELFPAY | PROVIDERS: Emergency Provider Emergency Medicine; PCP Student in an Organized Health Care Education/Training Program; Visit Provider Radiology Diagnostic Radiology | DX: R91.8 Other nonspecific abnormal finding of lung field (principal) | CPT/HCPCS: 71045 ==

== ENCOUNTER → 2025-03-07 17:11 | Outpatient (BNV) | payer MEDICARE, SELFPAY | PROVIDERS: Admitting Provider Student in an Organized Health Care Education/Training Program; Emergency Provider Emergency Medicine; PCP Student in an Organized Health Care Education/Training Program; Visit Provider Internal Medicine Cardiovascular Disease | DX: I45.10 Unspecified right bundle-branch block (principal); R00.0 Tachycardia, unspecified; R94.31 Abnormal electrocardiogram [ECG] [EKG]; R06.00 Dyspnea, unspecified | CPT/HCPCS: 93010 ==

== ENCOUNTER 2025-03-07 19:25 | Outpatient (BNV) | payer MEDICARE, SELFPAY | END 2025-03-08 07:00 | PROVIDERS: Admitting Provider Student in an Organized Health Care Education/Training Program; Emergency Provider Emergency Medicine; PCP Student in an Organized Health Care Education/Training Program; Visit Provider Internal Medicine Cardiovascular Disease | DX: I50.9 Heart failure, unspecified (principal); I42.8 Other cardiomyopathies | CPT/HCPCS: 93306 ==

== ENCOUNTER → 2025-03-07 19:25 | Outpatient (BNV) | payer MEDICARE, SELFPAY | PROVIDERS: Admitting Provider Student in an Organized Health Care Education/Training Program; Emergency Provider Emergency Medicine; PCP Student in an Organized Health Care Education/Training Program; Visit Provider Physician Assistant Medical | DX: I46.9 Cardiac arrest, cause unspecified (principal); J96.01 Acute respiratory failure with hypoxia; N18.6 End stage renal disease; Z99.2 Dependence on renal dialysis | CPT/HCPCS: 99291 ==

== ENCOUNTER → 2025-03-07 19:25 | Outpatient (BNV) | payer MEDICARE, SELFPAY | PROVIDERS: Admitting Provider Student in an Organized Health Care Education/Training Program; Emergency Provider Emergency Medicine; PCP Student in an Organized Health Care Education/Training Program; Visit Provider Nurse Practitioner Family | DX: N18.6 End stage renal disease (principal); Z99.2 Dependence on renal dialysis; J96.01 Acute respiratory failure with hypoxia | CPT/HCPCS: 99222; 99232 ==

== ENCOUNTER → 2025-03-07 19:25 | Outpatient (BNV) | payer MEDICARE, SELFPAY | PROVIDERS: Admitting Provider Student in an Organized Health Care Education/Training Program; Emergency Provider Emergency Medicine; PCP Student in an Organized Health Care Education/Training Program; Visit Provider Student in an Organized Health Care Education/Training Program | DX: I46.9 Cardiac arrest, cause unspecified (principal) | CPT/HCPCS: 92950; 99223; 99232; 99239 ==

== ENCOUNTER → 2025-03-07 19:25 | Outpatient (BNV) | payer MEDICARE, SELFPAY | PROVIDERS: Admitting Provider Student in an Organized Health Care Education/Training Program; Emergency Provider Emergency Medicine; PCP Student in an Organized Health Care Education/Training Program; Visit Provider Internal Medicine Pulmonary Disease | DX: N18.6 End stage renal disease (principal); Z99.2 Dependence on renal dialysis; I46.9 Cardiac arrest, cause unspecified; J96.01 Acute respiratory failure with hypoxia; I50.9 Heart failure, unspecified | CPT/HCPCS: 99291 ==

== ENCOUNTER 2025-03-14 06:32 | Outpatient (REF) | payer MEDICARE, SELFPAY ==
[2025-03-14 05:59] LABS: MANUAL DIFF FLAG NO
[2025-03-14 06:29] LABS: Basophils Absolute Auto 0.1 X10*3/uL (0.0-0.2); Basophils Percent Auto 0.7 % (0-2); Eosinophils Absolute Auto 0.8 X10*3/uL (0.0-0.4); Eosinophils Percent Auto 6.4 % (0-4); Hematocrit 26.6 % (42.0-52.0); Hemoglobin 8.7 g/dl (14.0-18.0); Imm Gran Abs Auto 0.09 X10*3/uL (0.00-0.03); Imm Gran Pct Auto 0.7 % (0.0-0.4); Lymphocytes Absolute Auto 1.7 X10*3/uL (1.2-4.9); Lymphocytes Percent Auto 13.1 % (20-40); Mean Corpuscular HGB Conc 32.7 g/dl (31.0-36.0); Mean Corpuscular Hemoglobin 32.5 pg (27.0-33.0); Mean Corpuscular Volume 99.3 fL (80.0-98.0); Mean Platelet Volume 10.5 fL (9.4-12.4); Monocytes Absolute Auto 1.4 X10*3/uL (0.1-1.2); Monocytes Percent Auto 10.8 % (2-11); Neutrophils Absolute Auto 8.6 x10*3/uL (2.0-8.3); Neutrophils Percent Auto 68.3 % (45-73); Platelet Count 217 X10*3/uL (160-400); Red Blood Count 2.68 X10*6/uL (4.60-5.80); Red Cell Distribution Width 17.9 % (11.0-16.0); White Blood Count 12.6 X10*3/uL (4.8-10.8)
--- OUTSIDE RECORDS SUMMARY | 2025-03-14 06:34 | XMS_ITS | Encounter Summary ---
Author Organization [facility], Address [address] [place] [address] Phone Care Team Providers Care Security Software Engineer Name Role Phone Matias Tan MD Primary Care Provider [phone]- [phone] Reason for Visit * Reason Onset Date Comments Med Refill 09/24/2022 Encounter Details Date Type Department Care Team (Late st Contact Info) Description 09/24/2022 Refill [facility] - [facility] [address] [phone] Ferdinand Monroe MD [address] [place] [phone] Social History Tobacco Use Types Packs/Day Years [...] filedocumented in this encounter Care Teams Security Software Engineer Relationship Specialty Start Date End Date Matias Tan MD [address] [place] [id number] PCP - General Family Medicine 10/24/19 documented as of this encounter
[2025-03-14 06:49] LABS: Anion Gap 17 (12-20); Blood Urea Nitrogen 30 mg/dL (9-16); Calcium 8.7 mg/dL (8.4-10.2); Carbon Dioxide 27 mmol/L (22-29); Chloride 97 mmol/L (96-108); Estimated Glomerular Filt Rate 10; Glucose Random 86 mg/dL (60-115); Potassium 3.8 mmol/L (3.3-5.1); Sodium 137 mmol/L (135-145)
== END 2025-03-14 06:33 | disposition home or self-care (01) ==
LOC: HO.MMNH1L 06:32
PROVIDERS: Visit Provider Nurse Practitioner Family
DX: E11.9 Type 2 diabetes mellitus without complications (principal)
CPT/HCPCS: 36415; 80048; 85025; 90999

== ENCOUNTER 2025-03-20 05:51 | Outpatient (REF) | payer MEDICARE, SELFPAY ==
[2025-03-20 05:49] LABS: MANUAL DIFF FLAG NO
--- OUTSIDE RECORDS SUMMARY | 2025-03-20 05:54 | XMS_ITS | Encounter Summary ---
Author Organization [facility], Address [address] [place] [address] Phone Care Team Providers Care Port Drier Name Role Phone Matias Tan MD Primary Care Provider +1- [phone] Reason for Visit * Reason Onset Date Comments Med Refill 09/24/2022 Encounter Details Date Type Department Care Team (Late st Contact Info) Description 09/24/2022 Refill [facility] - [facility] Center [address] [place] [phone] Ferdinand Monroe MD [address] [place] [phone] Social History Tobacco Use Types Packs/Day Years [...] on filedocumented in this encounter Care Teams Port Drier Relationship Specialty Start Date End Date Matias Tan MD [address] [place] [id number] PCP - General Family Medicine 10/24/19 documented as of this encounter
[2025-03-20 06:55] LABS: Basophils Absolute Auto 0.1 X10*3/uL (0.0-0.2); Basophils Percent Auto 0.7 % (0-2); Eosinophils Absolute Auto 0.6 X10*3/uL (0.0-0.4); Eosinophils Percent Auto 6.7 % (0-4); Hematocrit 26.1 % (42.0-52.0); Hemoglobin 8.6 g/dl (14.0-18.0); Imm Gran Abs Auto 0.03 X10*3/uL (0.00-0.03); Imm Gran Pct Auto 0.3 % (0.0-0.4); Lymphocytes Absolute Auto 1.1 X10*3/uL (1.2-4.9); Lymphocytes Percent Auto 12.4 % (20-40); Mean Corpuscular Hemoglobin 32.6 pg (27.0-33.0); Mean Corpuscular Volume 98.9 fL (80.0-98.0); Mean Platelet Volume 9.8 fL (9.4-12.4); Monocytes Absolute Auto 0.8 X10*3/uL (0.1-1.2); Monocytes Percent Auto 9.5 % (2-11); Neutrophils Absolute Auto 6.1 x10*3/uL (2.0-8.3); Neutrophils Percent Auto 70.4 % (45-73); Platelet Count 205 X10*3/uL (160-400); Red Blood Count 2.64 X10*6/uL (4.60-5.80); Red Cell Distribution Width 16.9 % (11.0-16.0); White Blood Count 8.7 X10*3/uL (4.8-10.8)
[2025-03-20 07:13] LABS: Anion Gap 17 (12-20); Blood Urea Nitrogen 52 mg/dL (9-16); Calcium 8.6 mg/dL (8.4-10.2); Carbon Dioxide 24 mmol/L (22-29); Chloride 98 mmol/L (96-108); Glucose Random 86 mg/dL (60-115); Potassium 5.2 mmol/L (3.3-5.1); Sodium 134 mmol/L (135-145)
[2025-03-20 07:17] LABS: Estimated Glomerular Filt Rate 7
== END 2025-03-20 05:52 | disposition home or self-care (01) ==
LOC: HO.MMNH1L 05:51
PROVIDERS: Visit Provider Nurse Practitioner Family
DX: E11.9 Type 2 diabetes mellitus without complications (principal)
CPT/HCPCS: 36415; 80048; 85025

== ENCOUNTER 2025-03-27 05:45 | Outpatient (REF) | payer MEDICARE, SELFPAY ==
[2025-03-27 05:34] LABS: MANUAL DIFF FLAG NO
--- OUTSIDE RECORDS SUMMARY | 2025-03-27 05:47 | XMS_ITS | Encounter Summary ---
Author Organization [facility], Address [address] [place] [address] Phone Care Team Providers Care Software Test Analyst Name Role Phone Matias Tan MD Primary Care Provider +1- [phone] Reason for Visit * Reason Onset Date Comments Med Refill 09/24/2022 Encounter Details Date Type Department Care Team (Late st Contact Info) Description 09/24/2022 Refill [facility] - [facility] [address] [phone] Ferdinand Monroe MD [address] [place] [phone] Social History Tobacco Use Types Packs/Day Years [...] filedocumented in this encounter Care Teams Software Test Analyst Relationship Specialty Start Date End Date Matias Tan MD [address] [place] [id number] PCP - General Family Medicine 10/24/19 documented as of this encounter
[2025-03-27 06:20] LABS: Basophils Percent Auto 0.4 % (0-2); Eosinophils Absolute Auto 0.3 X10*3/uL (0.0-0.4); Eosinophils Percent Auto 2.9 % (0-4); Hematocrit 27.2 % (42.0-52.0); Hemoglobin 8.9 g/dl (14.0-18.0); Imm Gran Abs Auto 0.03 X10*3/uL (0.00-0.03); Imm Gran Pct Auto 0.3 % (0.0-0.4); Lymphocytes Percent Auto 9.9 % (20-40); Mean Corpuscular HGB Conc 32.7 g/dl (31.0-36.0); Mean Corpuscular Volume 100.7 fL (80.0-98.0); Mean Platelet Volume 10.3 fL (9.4-12.4); Monocytes Absolute Auto 0.9 X10*3/uL (0.1-1.2); Monocytes Percent Auto 9.4 % (2-11); Neutrophils Absolute Auto 7.4 x10*3/uL (2.0-8.3); Neutrophils Percent Auto 77.1 % (45-73); Platelet Count 143 X10*3/uL (160-400); Red Cell Distribution Width 15.5 % (11.0-16.0); White Blood Count 9.6 X10*3/uL (4.8-10.8)
[2025-03-27 06:45] LABS: Anion Gap 20 (12-20); Blood Urea Nitrogen 52 mg/dL (9-16); Calcium 8.2 mg/dL (8.4-10.2); Carbon Dioxide 23 mmol/L (22-29); Chloride 97 mmol/L (96-108); Estimated Glomerular Filt Rate 6; Glucose Random 71 mg/dL (60-115); Potassium 5.7 mmol/L (3.3-5.1); Sodium 134 mmol/L (135-145)
== END 2025-03-27 05:46 | disposition home or self-care (01) ==
LOC: HO.MMNH1L 05:45
PROVIDERS: Visit Provider Nurse Practitioner Family
DX: E11.9 Type 2 diabetes mellitus without complications (principal)
CPT/HCPCS: 36415; 80048; 85025

== ENCOUNTER 2025-04-07 02:04 | Inpatient (IN) | payer MEDICARE, SELFPAY ==
[2025-04-07] VITALS (13 sets, daily range): BP systolic 149–185; BP diastolic 65–81; PULSE 65–79; RESP 16–24; TEMP 36.2–36.7; O2SAT 91–98; BMI 23.7; BMI 24.9
--- NOTE | ~2025-04-07 | XR_ITS ---
CLINICAL HISTORY: shortness of breath 1 view chest x-ray Comparison: CR - XR CHEST 1V - 03/07/25 21:39 EDT Findings: There is central vascular and interstitial prominence patchy ground-glass density noted. No effusion. Cardiac and mediastinal contours are stable No acute fracture. IMPRESSION: There is interstitial and central vascular prominence ground-glass density edema versus viral infectious process. This document has been electronically signed by: Booker Rodriguez MD on 04/07/2025 05:09:31
--- NOTE | 2025-04-07 02:22 | ECG_ITS ---
Test Reason : SOB Blood Pressure : */* mmHG Vent. Rate : 71 BPM Atrial Rate : 71 BPM P-R Int : 142 ms QRS Dur : 90 ms QT Int : 480 ms P-R-T Axes : 41 5 -57 degrees QTcB Int : 521 ms Normal sinus rhythm T wave abnormality, consider inferolateral ischemia Prolonged QT Abnormal ECG When compared with ECG of 07-Mar-2025 21:20, Sinus rhythm has replaced Wide QRS tachycardia Vent. rate has decreased by 92 bpm Referred By: Generic ED Physician Electronically Signed By: Satinder Lyn
--- NOTE | 2025-04-07 02:51 | ED_ITS ---
HPI - General Adult General Chief complaint: General Medical Stated complaint: end stage renal diff breathing Time Seen by Provider: 04/07/25 02:39 Source: patient and EMS Mode of arrival: EMS Limitations: no limitations History of Present Illness ED Provider: Dr. Gardenia Flores HPI narrative: Patient comes to the emergency room complaining of shortness of breath that started approximately 3 hours ago. Patient states that he has history of end- stage renal disease, goes to dialysis Thursday and Thursday. Patient states that he has not missed any sessions of dialysis. Patient denies any URI symptoms including cough, runny nose. Denies any chest pain. Patient states that he recently was discharged from [facility] after being in the hospital admitted for CHF and cardiac arrest. Patient states that he still has residual rib pain from the chest compressions from the last time that he was here. Related Data Home Medications ?Medication ?Instructions ?Recorded ?Confirmed atenolol 100 mg tablet 1 tab PO DAILY 07/11/2102/17 blood sugar diagnostic (FreeStyle 07/11/21 10/30/24 Lite Strips) levothyroxine 137 mcg tablet 1 tab PO DAILY@0600 07/1103/07/25 pen needle, diabetic 31 gauge x 07/11/21 10/30/24 5/16 (BD Ultra-Fine Short Pen Needle) atorvastatin 40 mg tablet 40 mg PO BEDTIME 02/22/24 sodium zirconium cyclosilicate 10 10 g PO SUTUTHSA@090 0 06/19/24 03/07/25 gram oral powder packet (Lokelma) insulin lispro 100 unit/mL See Protocol subcut TIDAC P RN 10/30/24 03/07/25 subcutaneous pen (Humalog KwikPen Blood Glucose (U-100) Insulin) sevelamer carbonate 800 mg tablet 1,600 mg PO TIDWM 03/07/25 acetaminophen 325 mg tablet 650 mg PO Q6H PRN Fever Or Pain 02/13/25 03/07/25 dextroamphetamine-amphetamine 20 20 mg PO BID 02/24/25 03/07/25 mg tablet ascorbic acid (vitamin C) 250 mg 250 mg PO DAILY 03/0703/07/25 tablet benztropine 0.5 mg tablet 0.5 mg PO BID 03/07/2503/07 cholecalciferol (vitamin D3) 125 125 mcg PO SUTUTHSA 0 03/07/25 03/07/25 mcg (5,000 unit) tablet vitamin B complex-vitamin C-folic 1 tab PO DAILY 03/0703/07/25 acid 0.8 mg tablet (Nephro-Fernanda) zinc sulfate 220 mg capsule 220 mg PO DAILY 03/07/25 0 03/07/25 Previous Rx's ?Medication ?Instructions ?Recorded insulin glargine 100 unit/mL 7 unit (0.07 mL) subcut B EDTIME 02/09/25 subcutaneous solution (Lantus #10 mL U-100 Insulin) midodrine 10 mg tablet 10 mg PO MOWEFR@1645 PRN Alycia lysis 02/27/25 Hypotension #0 tabs cefuroxime axetil 500 mg tablet 500 mg PO DAILY #7 tab s 03/10/25 clonazepam 1 mg tablet 1 mg PO BID #10 tabs 5 hydromorphone 4 mg tablet 4 mg PO Q3H PRN Pain #10 tab s 03/10/25 Allergies Allergy/AdvReac Type Severity Reaction Status Date / Time Penicillins (PENICILLINS) Allergy Unknown RASH Verified 04/07/25 02:17 tramadol (From ULTRAM) Allergy Unknown RASH Verified 04/07/25 02:17 trazodone (TRAZODONE) Allergy Unknown PRIAPISM Verified 04/07/25 02:17 risperidone (RISPERIDONE) AdvReac Severe dizzy, EPS Verified 04/07/25 02:17 Review of Systems 2 Review of Systems: Constitutional : No Weight loss, No Fever, No Chills, No Night Sweats, No Fatigue, No Malaise ENT/Mouth : No Hearing loss, No Ear Pain, No Nasal Congestion, No Sinus Pain, No Hoarseness, No sore throat, No Rhinorrhea, No Swallowing Difficulty Eyes: No Eye Pain, No Swelling, No Redness, No Foreign Body, No Discharge, No Vision Changes Cardiovascular : No Chest Pain, complaining of orthopnea, no lower extremity edema, no palpitations Respiratory : Denies cough, complaining of shortness of breath, worse with exertion. Gastrointestinal : No Nausea, No Vomiting, No Diarrhea, No Constipation, No abdominal Pain, No Hematochezia, No Melena Genitourinary : no irregular bleeding, No Dysuria, No Urinary Frequency, No Hematuria, No Urinary Incontinence, No Urgency, No Flank Pain, No Urinary Flow Changes, No Hesitancy Musculoskeletal : No joint pain, No Myalgias, No Joint Swelling Skin : No Skin Lesions, No rash Neuro : No Weakness, No Numbness, No Paresthesias, No Loss of Consciousness, No Dizziness, No Headache Psych : No Anxiety/Panic, No Depression, No SI/HI/AH/VH, No Social Issues, Heme/Lymph: No Bruising, No Bleeding,No Lymphadenopathy Endocrine : No Polyuria, No Polydipsia, No Temperature Intolerance [facility] Past Medical History Medical History Hypothyroidism Influenza A CHF (congestive heart failure) Acute anemia Multifactorial gait disorder Pneumonia End stage renal disease on dialysis Occult blood positive stool Anemia Internal jugular vein thrombosis Abnormality of gait ESRD needing dialysis Secondary hyperparathyroidism (of renal origin) Anemia in chronic kidney disease DONIS (acute kidney injury) Diabetes Kidney failure HTN (hypertension) Social History Social History Household Members: Spouse Housing: Unknown / Unable to assess Are you a primary nurse care manager to a significant other at home: No Do you presently have visiting nurse or other home services: No Alcohol intake: former Comment: sitter in place Patient Tobacco Use Status: Never used Tobacco Cigarette Packs Per Day: 0 Cigarettes Per Day: 0 Years Smoked: NA Smoked in Last 30 Days: No e-Cigarette/Vaping Use: Never Used Second Hand Smoke Exposure: No Use of substances other than those prescribed or required for medical reasons: No Advance Directives: Yes Advance Directives on File: Yes Advance Directives Date on File: 09/07/23 service: No Physical Exam ED Vital Signs: Vital Signs - 24 hr 04/07/25 02:12 04/07/25 03:40 04/07/25 04:28 Pulse Rate 73 68 Respiratory Rate 24 H 19 20 Blood Pressure 160/65 H 162/76 H Pulse Oximetry 91 L 94 Oxygen Delivery Method Room Air CPAP 04/07/25 05:18 04/07/25 05:22 04/07/25 06:51 Pulse Rate 67 Respiratory Rate 20 Blood Pressure 163/73 H 163/73 H 155/78 H Pulse Oximetry 96 Oxygen Delivery Method BMI result Body Mass Index 23.7 Const Other: Appearance: Alert. Oriented X3. No acute distress. Anxious Eyes: Pupils equal, round and reactive to light. ENT: Pharynx normal. Neck: Normal inspection. Neck supple. No lymph nodes noted. No crepitus CVS: Normal heart rate and rhythm. Pulses normal. Normal S1 and S2 Respiratory: No respiratory distress. Breath sounds normal. No Wheezing. No rales Abdomen: Soft and nontender. No rigidity. No distention. Skin: Skin warm and dry. Normal skin color. Normal skin turgor. Extremities: No lower extremity edema, few small eschars in the distal lower extremities Neuro: Oriented X 3. No motor deficit. No sensory deficit. Moving all extremities. No slurred speech. CN 2 through 12 grossly intact Psych: calm, cooperative, anxious Course Course Course Narrative: Patient comes to the emergency room reporting shortness of breath that started a few hours prior to arrival. Patient known to have end-stage renal disease, CHF, patient is due for dialysis today According to the patient he goes to [place] for dialysis. Patient states he is compliant with his dialysis sessions. All of patient's labs and imaging pending. Of note, when patient arrived to the emergency room, the patient and his asked to get a MOLST form filled out. The last time that the patient was here, it was documented in the patient's chart that patient is DNR DNI. However, patient and his are requesting to make the patient full code. I reviewed the MOLST form with the patient and his . Patient has signed his form, patient's agreeable. Bottom line, they do not want any limitation in patient's resuscitation. Code status: Full code ordered Medications Administered Discontinued Medications Generic Name Dose Route Start Last Admin Trade Name Freq PRN Reason Stop Dose Admin Bumetanide 0.5 mg 04/07/25 06:46 04/07/25 06:51 Bumetanide 1 Mg/4 Ml Vial IVPUSH 04/07/25 06:47 0.5 mg ONCE ONE Administration Protocol Ceftriaxone Sodium 1 gm 04/07/25 03:55 04/07/25 05:08 Ceftriaxone Sodium 1 Gm Vial IVPUSH 04/07/25 03:56 1 gm ONCE ONE Administration Hydralazine HCl 5 mg 04/07/25 05:15 04/07/25 05:22 Hydralazine Hcl 20 Mg/Ml Vial IVPUSH 04/07/25 05:16 5 mg ONCE ONE Administration Protocol Azithromycin 500 mg/ Sodium 250 mls @ 125 mls/hr 04/07/25 03:55 04/07/25 05:08 Chloride IV 04/07/25 05:54 125 mls/hr ONCE ONE Administration Sodium Chloride 200 mls @ 999 mls/hr 04/07/25 04:02 04/07/25 05:22 Ns IVCONT 04/07/25 04:14 Infused .Q13M ONE Infusion Medical Decision Making Medical Decision Making [facility] Narrative: At this time, 03:55, the chest x-ray was done. There is no a large amount of pulmonary edema. Patient likely has infiltrates. Radiology report pending. Patient is prophylactically being treated with IV antibiotics, ceftriaxone azithromycin. 1 month ago, patient was diagnosed with new onset CHF. Sepsis bolus exclusion has been filled, patient receiving 200 mL of IV fluids at a rate of 999 Patient's oxygen saturation dropped to 80% on 3 L of oxygen. Patient was started on CPAP. My interpretation of labs: Patient's white blood cell count within normal limits, 9.6, hemoglobin hematocrit and platelets are at baseline. Patient's venous blood gases at baseline, pH 7.51, pCO2 47, bicarb 30, chemistries within normal limits other than a creatinine of 5.96, which is at patient's baseline. Patient is due for dialysis today. LFTs within normal limits, troponin 985.9, BNP 4845. Patient has had previously elevated BNP. However, even after the cardiac arrest, patient's troponin was not this elevated. No significant EKG changes. Patient has mild chest pain, states that this is secondary to CPR which he received over a month ago. I discussed the above-mentioned with Dr. Lyn from Cardiology, at this time, heparinization is not indicated. BP control Patient getting IV hydralazine. Patient's vitals: Blood pressure 162/76, pulse 68, oxygen saturation 94% on CPAP. Patient breathing comfortably. Patient has been off CPAP for over an hour, patient's vitals remained stable, patient is on room air at this time, saturating 92%. Sleeping comfortably, breathing comfortably. Patient will need dialysis today Patient has been weaned off CPAP, patient is on 1 L of oxygen, saturating 92% Patient received Bumex. Patient states that he urinates 3 days in a row on and 2-3 days does not produce any urine, no clear pattern. I discussed the patient with our hospitalist team, patient to be admitted. We tried getting in touch with patient's nephrology Center, [facility] in [place], but no one picked up the phone Pt has been seen prevously by MIKE Mac, Dr. Quinn and Dr. Allen. Per trying to get in touch with their office to make sure that they noted that the patient is here and will need dialysis today. Our executive secretary social welfare was able to get in touch with their office, left a message to let him know that the patient needs dialysis today. At this time, patient is stable, breathing comfortably, patient does need dialysis, nonemergent at this time, but definitely needs to be done today I discussed the patient with Dr. Medina from the Medicine team, patient being admitted. Differential Diagnosis Differential Diagnoses: The differential diagnosis associated with the presentation includes (Fluid overload, pulmonary edema, CHF, pneumonia) Admission/Observation Consideration of admission/observation: Escalation of care including admission/observation considered Consult Healthcare Provider Management of the patient was discussed with: Hospitalist and Solutions Architect Lab Data MDM Lab Attestation statement: I reviewed the patient's lab results. 04/07/25 03:05 04/07/25 03:05 Labs: Lab Results 04/07/25 04/07/25 04/07/25 Range/Units 03:05 03:11 04:58 WBC 9.6 (4.8-10.8) X10*3/uL RBC 2.85 L (4.60-5.80) X10*6/uL Hgb 9.2 L (14.0-18.0) g/dl Hct 27.0 L (42.0-52.0) % MCV 94.7 (80.0-98.0) fL MCH 32.3 (27.0-33.0) pg MCHC 34.1 (31.0-36.0) g/dl RDW 15.5 (11.0-16.0) % Plt Count 216 D (160-400) X10*3/uL MPV 9.0 L (9.4-12.4) fL Immature Gran % (Auto) 0.4 (0.0-0.4) % Neut % (Auto) 73.5 H (45-73) % Lymph % (Auto) 12.7 L (20-40) % [place] % (Auto) 9.4 (2-11) % Eos % (Auto) 3.5 (0-4) % Baso % (Auto) 0.5 (0-2) % Lymph # (Auto) 1.2 (1.2-4.9) X10*3/uL [place] # (Auto) 0.9 (0.1-1.2) X10*3/uL Eos # (Auto) 0.3 (0.0-0.4) X10*3/uL Baso # (Auto) 0.1 (0.0-0.2) X10*3/uL Abs Immat Gran (auto) 0.04 H (0.00-0.03) X10*3/uL Absolute Neuts (auto) 7.1 (2.0-8.3) x10*3/uL Absolute Nucleated RBC 0.000 (0.0-0.012) X10*3/uL Nucleated RBC % (auto) 0.0 (0.0-0.2) /100WBC VBG pH 7.51 H (7.32-7.43) VBG pCO2 37 mmHg VBG pO2 44 mmHg VBG HCO3 30 H (22-26) mmol/L VBG O2 Saturation 70.0 % VBG Base Excess 7.1 mmol/L Sodium 138 (135-145) mmol/L Potassium 3.5 D (3.3-5.1) mmol/L Chloride 96 (96-108) mmol/L Carbon Dioxide 27 (22-29) mmol/L Anion Gap 19 (12-20) BUN 21 H (9-16) mg/dL Creatinine 5.96 H* (0.5-1.4) mg/dL Estim Creat Clear Calc 10.2 Estimated GFR 9 Random Glucose 130 H (60-115) mg/dL Lactic Acid 0.8 (0.5-2.0) mmol/L Calcium 9.0 D (8.4-10.2) mg/dL Magnesium 1.7 (1.6-2.6) mg/dL Total Bilirubin 0.9 (0.0-1.0) mg/dL Direct Bilirubin 0.3 (0.0-0.5) mg/dL AST 24 (5-37) U/L ALT 10 (0-40) U/L Alkaline Phosphatase 95 (39-117) U/L Troponin I High Sens 985.9 H* D (<3.5-35.0) ng/L B-Natriuretic Peptide 4845 H (<100) pg/mL Total Protein 6.5 (6.5-8.0) g/dL Albumin 4.1 (3.5-5.0) g/dL Influenza Type A (PCR) NEGATIVE (Negative) Influenza Type B (PCR) NEGATIVE (Negative) RSV RNA Qual (PCR) NEGATIVE (Negative) SARS-CoV-2 RNA (RT-PCR) NEGATIVE (Negative) 04/07/25 Range/Units 05:00 WBC (4.8-10.8) X10*3/uL RBC (4.60-5.80) X10*6/uL Hgb (14.0-18.0) g/dl Hct (42.0-52.0) % MCV (80.0-98.0) fL MCH (27.0-33.0) pg MCHC (31.0-36.0) g/dl RDW (11.0-16.0) % Plt Count (160-400) X10*3/uL MPV (9.4-12.4) fL Immature Gran % (Auto) (0.0-0.4) % Neut % (Auto) (45-73) % Lymph % (Auto) (20-40) % [place] % (Auto) (2-11) % Eos % (Auto) (0-4) % Baso % (Auto) (0-2) % Lymph # (Auto) (1.2-4.9) X10*3/uL [place] # (Auto) (0.1-1.2) X10*3/uL Eos # (Auto) (0.0-0.4) X10*3/uL Baso # (Auto) (0.0-0.2) X10*3/uL Abs Immat Gran (auto) (0.00-0.03) X10*3/uL Absolute Neuts (auto) (2.0-8.3) x10*3/uL Absolute Nucleated RBC (0.0-0.012) X10*3/uL Nucleated RBC % (auto) (0.0-0.2) /100WBC VBG pH (7.32-7.43) VBG pCO2 mmHg VBG pO2 mmHg VBG HCO3 (22-26) mmol/L VBG O2 Saturation % VBG Base Excess mmol/L Sodium (135-145) mmol/L Potassium (3.3-5.1) mmol/L Chloride (96-108) mmol/L Carbon Dioxide (22-29) mmol/L Anion Gap (12-20) BUN (9-16) mg/dL Creatinine (0.5-1.4) mg/dL Estim Creat Clear Calc Estimated GFR Random Glucose (60-115) mg/dL Lactic Acid (0.5-2.0) mmol/L Calcium (8.4-10.2) mg/dL Magnesium (1.6-2.6) mg/dL Total Bilirubin (0.0-1.0) mg/dL Direct Bilirubin (0.0-0.5) mg/dL AST (5-37) U/L ALT (0-40) U/L Alkaline Phosphatase (39-117) U/L Troponin I High Sens 922.9 H* (<3.5-35.0) ng/L B-Natriuretic Peptide (<100) pg/mL Total Protein (6.5-8.0) g/dL Albumin (3.5-5.0) g/dL Influenza Type A (PCR) (Negative) Influenza Type B (PCR) (Negative) RSV RNA Qual (PCR) (Negative) SARS-CoV-2 RNA (RT-PCR) (Negative) Independent Interpretation I performed an independent interpretation of an: Plain X-Ray Radiology Impression Discussion of test interpretation with radiology: I have reviewed the radiologist's reading. Critical Care Time Critical Care Time Critical Care Time: Yes Total Critical Care Time: 75 Attestation: I have personally provided critical care time. Time includes review of lab data, radiology results, discussion with consultants, and monitoring for potential decompensation. Intervention performed as documented. Discharge Plan Discharge Clinical Impression: Pulmonary edema Patient Disposition: Admitted As Inpatient Print Language: Kosovan Sepsis Bolus Exclusion Sepsis Bolus Exclusion CHF/Renal Failure Date of Occurrence: 04/07/25 Time of Occurrence:: 04:10 This patient met severe sepsis criteria due to the following condition(s):: D ocumentation of septic shock (CHF versus septic shock? Patient is on rescue CPAP) In my clinical judgement the administration of 30 ml/kg of crystalloid would be detrimental to this patient due to the patient's following conditions:: NYHA class III or IV Heart Failure(symptoms with low exertion or rest) and Concern for fluid overload Other (must be specific):: Dialysis patient, fluid overload, new onset chf s/p cardiac arrest Replace the 30 mls/kg with (Zero amount not acceptable and all fluids for severe sepsis must be given at GREATER than 125 mls/hr) *Note: One of the rider must be documented Crystalloids amount given in mls: (rate must be at least 150cc/hr): 200 Colloids amount given in mls:: 0 At a rate of (must be > 125 cchr):: 0
[2025-04-07 03:11] LABS: MANUAL DIFF FLAG NO
[2025-04-07 03:12] LABS: Basophils Absolute Auto 0.1 X10*3/uL (0.0-0.2); Basophils Percent Auto 0.5 % (0-2); Eosinophils Absolute Auto 0.3 X10*3/uL (0.0-0.4); Eosinophils Percent Auto 3.5 % (0-4); Hemoglobin 9.2 g/dl (14.0-18.0); Imm Gran Abs Auto 0.04 X10*3/uL (0.00-0.03); Imm Gran Pct Auto 0.4 % (0.0-0.4); Lymphocytes Absolute Auto 1.2 X10*3/uL (1.2-4.9); Lymphocytes Percent Auto 12.7 % (20-40); Mean Corpuscular HGB Conc 34.1 g/dl (31.0-36.0); Mean Corpuscular Hemoglobin 32.3 pg (27.0-33.0); Mean Corpuscular Volume 94.7 fL (80.0-98.0); Monocytes Absolute Auto 0.9 X10*3/uL (0.1-1.2); Monocytes Percent Auto 9.4 % (2-11); Neutrophils Absolute Auto 7.1 x10*3/uL (2.0-8.3); Neutrophils Percent Auto 73.5 % (45-73); Platelet Count 216 X10*3/uL (160-400); Red Blood Count 2.85 X10*6/uL (4.60-5.80); Red Cell Distribution Width 15.5 % (11.0-16.0); White Blood Count 9.6 X10*3/uL (4.8-10.8)
[2025-04-07 03:16] LABS: VBG Base Excess 7.1 mmol/L; VBG HCO3 30 mmol/L (22-26); VBG pCO2 37 mmHg; VBG pH 7.51 (7.32-7.43); VBG pO2 44 mmHg
[2025-04-07 03:17] LABS: Venous Blood Gas Refer to POC result
--- NOTE | 2025-04-07 03:30 | PC.NURSE ---
Pt O2 saturation going down into low 80s. Pt placed on 6L via oxymask per Dr. Flores and O2 saturation improved to upper 90s to 100%. Respiratory therapy to bedside.
[2025-04-07 03:33] LABS: Alanine Aminotransferase 10 U/L (0-40); Albumin Level 4.1 g/dL (3.5-5.0); Alkaline Phosphatase 95 U/L (39-117); Anion Gap 19 (12-20); Aspartate Amino Transferase 24 U/L (5-37); Bilirubin Direct 0.3 mg/dL (0.0-0.5); Bilirubin Total 0.9 mg/dL (0.0-1.0); Blood Urea Nitrogen 21 mg/dL (9-16); Carbon Dioxide 27 mmol/L (22-29); Chloride 96 mmol/L (96-108); Creatinine Clr Calc Pharmacy 10.2; Estimated Glomerular Filt Rate 9; Glucose Random 130 mg/dL (60-115); Magnesium 1.7 mg/dL (1.6-2.6); Potassium 3.5 mmol/L (3.3-5.1); Sodium 138 mmol/L (135-145); Total Protein 6.5 g/dL (6.5-8.0)
[2025-04-07 03:36] LABS: B Type Natriuretic Peptide 4845 pg/mL (<100)
[2025-04-07 03:53] LABS: Influenza A PCR NEGATIVE (Negative); Influenza B PCR NEGATIVE (Negative); Resp Syncy Virus RNA Qual PCR NEGATIVE (Negative); SARS COV2 PCR INHOUSE NEGATIVE (Negative)
--- NOTE | 2025-04-07 04:20 | PC.NURSE ---
Attempted to gain IV access on patient on right arm, left arm unable to be used secondary to dialysis fistula. Unable to obtain access. Notified Dr. Flores and charge nurse and seeing if an employee can place one ultrasound guided.
[2025-04-07] MEDS: cefTRIAXone sodium 1 GM VIAL IVPUSH (05:08)
[2025-04-07] MEDS: Azithromycin 500 MG in 0.9 % Sodium Chloride 250 ML 125 MG IV (05:08)
[2025-04-07 05:19] LABS: Lactic Acid 0.8 mmol/L (0.5-2.0)
[2025-04-07] MEDS: hydrALAZINE HCl 20 MG/ML VIAL 5 MG IVPUSH (05:22)
[2025-04-07 05:28] LABS: Troponin-I High Sensitivity 922.9 ng/L (<3.5-35.0)
--- NOTE | 2025-04-07 05:37 | PC.NURSE ---
Dr. Flores able to obtain IV access with ultrasound guided #18 peripheral IV placed at 0500.
[2025-04-07] MEDS: Bumetanide 1 MG/4 ML VIAL 0.5 MG IVPUSH (06:51)
--- NOTE | 2025-04-07 07:18 | PM.IMHP ---
History of Present Illness Date of Service: 04/07/25 Attending physician on admission: [facility] Chief Complaint: SOB Patient is a 70-year-old male with a past medical history significant for ESRD on HD MWF with frequent admissions due to noncompliance with dialysis, mood disorder, stage I COPD, insulin-dependent diabetes, hypothyroid, HLD, chronic anemia, GERD and hypertension with recent cardiac arrest due to hypoxia, who presented to the ED due to shortness of breath starting last night. He denies any sore throat, fever, chills, nausea, vomiting, nasal congestion or rhinorrhea. He denies a cough, abdominal pain or urinary symptoms. He does report he urinates sometimes 3 days in a row and then will go 2 days without. He has some chest discomfort which is with deep palpation after having chest compressions 4 weeks ago. This pain has not increased and has been chronic since that episode. The patient reports that he went for dialysis on Thursday and is due again this morning. He does receive Lasix prior to his dialysis. In the ED the patient was saturating 80% on 3 L therefore transitioned to CPAP with improvement. The patient has been off of CPAP for 2 hours now and has been maintaining oxygenation in the low 90s. His chest x-ray was consistent with pulmonary edema but suspected pneumonia initially therefore was given a small fluid bolus of 200 mL and started on ceftriaxone and azithromycin. After x-ray results came back the patient was given 0.5 mg of Bumex. Review of Systems Constitutional: Constitutional: Denies body ache(s), Denies chills, Denies fatigue, Denies fever(s) and Denies headache(s) Eyes: Eyes: Denies change in vision and Denies loss of vision ENT: Denies headache(s), Denies nasal congestion and Denies nasal discharge Cardiovascular: Cardiovascular: Denies chest pain, Denies rapid heart rate, Denies leg edema, Denies lightheadedness and Reports dyspnea Respiratory: Respiratory: Denies chest congestion, Denies cough, Reports dyspnea and Reports wheezing Gastrointestinal: Gastrointestinal: Denies abdominal pain, Denies melena, Denies nausea and Denies vomiting Genitourinary: Genitourinary: Denies dysuria, Denies flank pain and Denies urinary urgency Musculoskeletal: Musculoskeletal: Denies myalgias Integumentary/Breasts: Skin/Breast: Denies rash Neurologic: Denies confusion, Denies headache(s) and Denies loss of vision Psychiatric: Psychiatric: Denies confusion Endocrine: Endocrine: Denies fatigue Hematologic/Lymphatic: Hematologic/Lymphatic: Denies easy bleeding and Denies easy bruising Allergic/Immunologic: Allergic/Immunologic: Reports wheezing [facility] Medical History Hypothyroidism Influenza A CHF (congestive heart failure) Acute anemia Multifactorial gait disorder Pneumonia End stage renal disease on dialysis Occult blood positive stool Anemia Internal jugular vein thrombosis Abnormality of gait ESRD needing dialysis Secondary hyperparathyroidism (of renal origin) Anemia in chronic kidney disease DONIS (acute kidney injury) Diabetes Kidney failure HTN (hypertension) Social History Household Members: Spouse Housing: Unknown / Unable to assess Are you a primary interior plant caretaker to a significant other at home: No Do you presently have visiting nurse or other home services: No Alcohol intake: former Comment: sitter in place Patient Tobacco Use Status: Never used Tobacco Cigarette Packs Per Day: 0 Cigarettes Per Day: 0 Years Smoked: NA e-Cigarette/Vaping Use: Never Used Second Hand Smoke Exposure: No Advance Directives Date on File: 09/07/23 service: No Narrative: No smoking, alcohol or drug use Meds Allergies Allergy/AdvReac Type Severity Reaction Status Date / Time Penicillins (PENICILLINS) Allergy Unknown RASH Verified 04/07/25 02:17 tramadol (From ULTRAM) Allergy Unknown RASH Verified 04/07/25 02:17 trazodone (TRAZODONE) Allergy Unknown PRIAPISM Verified 04/07/25 02:17 risperidone (RISPERIDONE) AdvReac Severe dizzy, EPS Verified 04/07/25 02:17 Home Medications ?Medication ?Instructions ?Recorded ?Confirmed ?Last Taken ?Type atenolol 100 mg tablet 1 tab PO DAILY 07/11/21 04/07/25 04/06/25 History blood sugar diagnostic (FreeStyle 07/11/21 10/30/24 10/30/24 09:00 History Lite Strips) levothyroxine 137 mcg tablet 1 tab PO DAILY@0600 07/11/21 04/07/25 04/06/25 History pen needle, diabetic 31 gauge x 09/10/30/24 10/30/24 09:00 History 5/16 (BD Ultra-Fine Short Pen Needle) atorvastatin 40 mg tablet 40 mg PO BEDTIME 02/22/24 04/07/25 04/06/25 History sodium zirconium cyclosilicate 10 10 g PO SUTUTHSA@0900 06/19/24 04/07/25 04/06/25 History gram oral powder packet (Lokelma) insulin lispro 100 unit/mL See Protocol subcut TIDAC PRN 10/30/24 04/07/25 04/06/25 History subcutaneous pen (Humalog KwikPen Blood Glucose (U-100) Insulin) dextroamphetamine-amphetamine 20 20 mg PO BID 02/24/25 04/07/25 04/06/25 History mg tablet albuterol sulfate 90 mcg/actuation 2 puff inhalation QID PRN wheezing 04/07/25 04/07/25 04/06/25 History aerosol inhaler (Ventolin HFA) alprazolam 0.5 mg tablet 0.5 - 1 mg PO DAILY anxiety attack 04/07/25 04/07/25 04/06/25 History alprazolam 2 mg tablet 2 mg PO BID 04/07/25 04/07/25 04/06/25 History amlodipine 5 mg tablet 5 mg PO BID 04/07/25 04/07/25 04/06/25 History losartan 100 mg tablet 100 mg PO DAILY 04/07/25 04/07/25 04/06/25 History Physical Exam Vital Signs and Narrative: Vital Signs: Last Vital Signs Pulse 67 04/07/25 05:18 Resp 20 04/07/25 05:18 BP 155/78 H 04/07/25 06:51 Pulse Ox 96 04/07/25 05:18 O2 Del Method CPAP 04/07/25 04:28 BMI result Body Mass Index 23.7 General: AOx3, no acute distress, oxygenating at 92% on NC Resp: crackles throughout, no wheezing CVS: RRR, +murmur GI: +BS, NT, no distention Skin: Warm, dry Neuro: Cranial nerves II-XII grossly intact bilaterally. Motor grossly intact bilaterally Extremities: No LE edema Psych: Appropriate affect Const: General: No confusion Orientation/consciousness: No confusion Neuro: General: No confusion Results Labs 04/08/25 06:57 04/08/25 06:57 Labs: Laboratory Results - last 24 hr 04/07/25 04/07/25 04/07/25 03:05 03:11 04:58 MCV 94.7 MCH 32.3 MCHC 34.1 RDW 15.5 Plt Count 216 D MPV 9.0 L Immature Gran % (Auto) 0.4 Neut % (Auto) 73.5 H Lymph % (Auto) 12.7 L Ocean % (Auto) 9.4 Eos % (Auto) 3.5 Baso % (Auto) 0.5 Lymph # (Auto) 1.2 Ocean # (Auto) 0.9 Eos # (Auto) 0.3 Baso # (Auto) 0.1 Abs Immat Gran (auto) 0.04 H Absolute Neuts (auto) 7.1 Absolute Nucleated RBC 0.000 Nucleated RBC % (auto) 0.0 VBG pH 7.51 H VBG pCO2 37 VBG pO2 44 VBG HCO3 30 H VBG O2 Saturation 70.0 VBG Base Excess 7.1 Anion Gap 19 Estim Creat Clear Calc 10.2 Estimated GFR 9 Random Glucose 130 H Lactic Acid 0.8 Calcium 9.0 D Magnesium 1.7 Total Bilirubin 0.9 Direct Bilirubin 0.3 AST 24 ALT 10 Alkaline Phosphatase 95 Troponin I High Sens 985.9 H* D B-Natriuretic Peptide 4845 H Total Protein 6.5 Albumin 4.1 Influenza Type A (PCR) NEGATIVE Influenza Type B (PCR) NEGATIVE RSV RNA Qual (PCR) NEGATIVE SARS-CoV-2 RNA (RT-PCR) NEGATIVE 04/07/25 05:00 MCV MCH MCHC RDW Plt Count MPV Immature Gran % (Auto) Neut % (Auto) Lymph % (Auto) Ocean % (Auto) Eos % (Auto) Baso % (Auto) Lymph # (Auto) Ocean # (Auto) Eos # (Auto) Baso # (Auto) Abs Immat Gran (auto) Absolute Neuts (auto) Absolute Nucleated RBC Nucleated RBC % (auto) VBG pH VBG pCO2 VBG pO2 VBG HCO3 VBG O2 Saturation VBG Base Excess Anion Gap Estim Creat Clear Calc Estimated GFR Random Glucose Lactic Acid Calcium Magnesium Total Bilirubin Direct Bilirubin AST ALT Alkaline Phosphatase Troponin I High Sens 922.9 H* B-Natriuretic Peptide Total Protein Albumin Influenza Type A (PCR) Influenza Type B (PCR) RSV RNA Qual (PCR) SARS-CoV-2 RNA (RT-PCR) Assessment and Plan (1) Acute hypoxic respiratory failure: Status: Acute (2) Acute exacerbation of CHF (congestive heart failure): Status: Acute (3) Elevated troponin: Status: Acute (4) ESRD needing dialysis: Status: Acute Plan Patient is a 70-year-old male with a past medical history significant for ESRD on HD MWF with frequent admissions due to noncompliance with dialysis, mood disorder, stage I COPD, insulin-dependent diabetes, hypothyroid, HLD, chronic anemia, HFpEF, GERD and hypertension with recent cardiac arrest due to hypoxia, who presented to the ED due to shortness of breath starting last night. He denies any sore throat, fever, chills, nausea, vomiting, nasal congestion or rhinorrhea. Acute hypoxic respiratory failure secondary to acute decompensated CHF - WBC normal, afebrile, lactic acid normal, no sepsis - chest x-ray with interstitial and central vascular prominence ground-glass density edema versus viral infectious process - COVID/flu/RSV negative - started on ceftriaxone and azithromycin in ED for presumed pneumonia, chest x-ray without pneumonia or any obvious infectious etiology at this time. No need for further antibiotics - BNP 4845 - Bumex 0.5 mg x1 - titrate oxygen as appropriate, currently maintaining on 1 L via NC - recent echo with EF of 55-60% - cardiology consult - monitor CBC and BMP Elevated troponin - trop 985, 922 on repeat, secondary to hypoxia - EKG without changes ESRD on HD MWF - nephrology consult IDDM - diabetic diet - sliding scale insulin - Lantus 5 units q.h.s. Chronic anemia secondary to ESRD - hemoglobin stable - no need for blood transfusion at this time - monitor CBC Stage I COPD, no acute exacerbation - no active wheezing at this time - continue home meds Mood disorder - continue home meds chronic pain - continue home meds HTN - continue home meds HLD - continue home meds Full code VTE prophylaxis: Heparin Patient with acute hypoxic respiratory failure secondary to acute decompensated CHF exacerbation, requiring admission for at least 2 midnight stay for IV diuresis and monitoring. Quality Stroke Does the patient have a stroke diagnosis?: No VTE Prior VTE?: No VTE Risk Level:: Medical - moderate - high VTE Device Contraindication: Treatment Not Indicated VTE Drug Contraindication: N/A - Med Ordered
[2025-04-07] MEDS: 0.9 % Sodium Chloride Flush 3 ML SYRINGE IVFLUSH ×2 (07:34→16:30)
[2025-04-07] MEDS: Heparin Sodium,Porcine 5,000 UNIT/ML VIAL 5000 UNIT SUBCUT ×3 (07:34→23:59)
--- NOTE | 2025-04-07 07:42 | PC.NURSE ---
patient a&ox3, rr equal/non labored, lungs crackles with mild wheezing- pt requesting breathing treatment, rt av fistula + bruit/thrill, cardiac specialist intact nsr on monitor vitals stable, 1+ edema BLE, pt states he does urinate at times. call [facility] within reach, plan of care ongoing
--- NOTE | 2025-04-07 08:23 | PC.NURSE ---
called respiratory for [facility]
--- NOTE | 2025-04-07 08:34 | PHA.MEDREC ---
Pharmacy Consult ? Medication Reconciliation Pharmacy has completed the medication reconciliation. Spoke to patient who knew medications. Has been prescribed 7 units of lantus but currently only taking sliding scale. Prescribed midodrine prn dialysis hypotension but says he has never taken it
[2025-04-07] MEDS: Albuterol/Iprat 2.5/0.5MG 3 ML AMPUL.NEB INHALE (08:43)
[2025-04-07] MEDS: HYDROmorphone HCl 0.5 MG/0.5 ML SYRINGE 0.25 MG IVPUSH ×2 (08:54→13:46)
--- NOTE | 2025-04-07 08:55 | PC.NURSE ---
pt medicated for 8 generalized pain
--- NOTE | 2025-04-07 09:07 | PC.NURSE ---
pt went to dialysis
--- NOTE | 2025-04-07 11:43 | PM.CNNEP ---
History of Present Illness Reason for Consult Consult date: 04/07/25 Chief Complaint Chief complaint: Fluid overload History of Present Illness Narrative: Patient is a 70 y/o male with a medical history of ESRD on HD (M,W,F), DM, hypothyroidism, HLD, anemia of chronic disease, GERD, and mood disorder who presented 04/07 presented with shortness of breath for a few hours prior to presentation, pt reports he was wheezing. Nephrology consulted for management of dialysis while inpatient. Pt reports he has not missed any HD sessions. patient denies shortness of breath, chest pain- reports breathing feels better now. patient denies new pain (reports chronic pain syndrome ongoing). reports widespread pruritus, states this is chronic and not new. denies new tremors, nausea, vomiting, muscle cramping. Reports he voids every few days. Review of Systems Constitutional: Reports fatigue Cardiovascular: Denies chest pain, Denies leg edema, Denies lightheadedness and Denies dyspnea Respiratory: Denies dyspnea Gastrointestinal: Denies abdominal pain, Denies diarrhea, Denies nausea and Denies vomiting Genitourinary: Denies hematuria, Denies oliguria, Denies dysuria and Denies flank pain Musculoskeletal: Reports arthralgias (reports chronic. ) Skin/Breast: Denies rash Denies tremor(s) Endocrine: Reports fatigue PMFSH Past Medical History Medical History Hypothyroidism Influenza A CHF (congestive heart failure) Acute anemia Multifactorial gait disorder Pneumonia End stage renal disease on dialysis Occult blood positive stool Anemia Internal jugular vein thrombosis Abnormality of gait ESRD needing dialysis Secondary hyperparathyroidism (of renal origin) Anemia in chronic kidney disease DONIS (acute kidney injury) Diabetes Kidney failure HTN (hypertension) Social History Social History Household Members: Spouse Housing: Unknown / Unable to assess Are you a primary manager care to a significant other at home: No Do you presently have visiting nurse or other home services: No Alcohol intake: former Comment: sitter in place Patient Tobacco Use Status: Never used Tobacco Cigarette Packs Per Day: 0 Cigarettes Per Day: 0 Years Smoked: NA Smoked in Last 30 Days: No e-Cigarette/Vaping Use: Never Used Second Hand Smoke Exposure: No Use of substances other than those prescribed or required for medical reasons: No Advance Directives: Yes Advance Directives on File: Yes Advance Directives Date on File: 09/07/23 Nutrition Risks: No Nutritional Risk service: No Meds Allergies Allergy/AdvReac Type Severity Reaction Status Date / Time Penicillins (PENICILLINS) Allergy Unknown RASH Verified 04/07/25 02:17 tramadol (From ULTRAM) Allergy Unknown RASH Verified 04/07/25 02:17 trazodone (TRAZODONE) Allergy Unknown PRIAPISM Verified 04/07/25 02:17 risperidone (RISPERIDONE) AdvReac Severe dizzy, EPS Verified 04/07/25 02:17 Active Medications: Current Medications Acetaminophen (Acetaminophen 325 Mg Tablet) 975 mg PO Q6H PRN PRN Reason: Pain, Mild 1-3,fever,headache Albuterol/Ipratropium (Albuterol/Iprat 2.5/0.5mg 3 Ml Ampul.Neb) 3 ml INHALE RQ4H PRN PRN Reason: Shortness of Breath/Wheezing Last Admin: 04/07/25 08:43 Dose: 3 ml Calcium Carbonate (Calcium Carbonate 750 Mg Tab.Chew) 750 mg PO Q4H PRN PRN Reason: Heartburn Dextrose (Dextrose 50 % 25 Gm/50 Ml Syringe) 25 gm IVPUSH Q15M PRN; Protocol PRN Reason: per Hypoglycemia Standing Ord. Glucose (Glucose Gel 15 Gm Gel..Gram.) 15 gm PO Q15M PRN; Protocol PRN Reason: per Hypoglycemia Standing Ord. Heparin Sodium (Porcine) (Heparin Sodium,Porcine 5,000 Unit/Ml Vial) 5,000 unit SUBCUT Q8H FRANCINE Last Admin: 04/07/25 07:34 Dose: 5,000 unit Hydromorphone HCl (Hydromorphone Hcl 0.5 Mg/0.5 Ml Syringe) 0.25 mg IVPUSH Q4H PRN; Protocol PRN Reason: Pain, Severe (Pain Scale 7-10) Last Admin: 04/07/25 08:54 Dose: 0.25 mg Insulin Glargine (Insulin Glargine,Hum.Rec.Anlog 100 Unit/Ml 10 Ml Vial) 5 unit SUBCUT BEDTIME FRANCINE Insulin Human Lispro (Insulin Lispro 100 Unit/Ml 3 Ml Vial) 0 unit SUBCUT QIDACHS [facility]; Protocol Magnesium Hydroxide (Milk Of Magnesia 30 Ml Oral.Susp) 30 ml PO DAILY PRN PRN Reason: Constipation Melatonin (Melatonin 3 Mg Tablet) 6 mg PO BEDTIME PRN PRN Reason: Insomnia Oxycodone HCl (Oxycodone Hcl Immed Release 5 Mg Tablet) 5 mg PO Q6H PRN PRN Reason: Pain, Moderate(Pain Scale 4-6) Sodium Chloride (0.9 % Sodium Chloride Flush 3 Ml Syringe) 3 ml IVFLUSH [facility] Last Admin: 04/07/25 07:34 Dose: 3 ml Home Medications ?Medication ?Instructions ?Recorded ?Confirmed ?Last Taken ?Type atenolol 100 mg tablet 1 tab PO DAILY 07/11/21 04/07/25 04/06/25 History blood sugar diagnostic (FreeStyle 07/11/21 10/30/24 10/30/24 09:00 History Lite Strips) levothyroxine 137 mcg tablet 1 tab PO DAILY@0600 07/11/21 04/07/25 04/06/25 History pen needle, diabetic 31 gauge x 07/11/21 10/30/24 10/30/24 09:00 History 5/16 (BD Ultra-Fine Short Pen Needle) atorvastatin 40 mg tablet 40 mg PO BEDTIME 02/22/24 04/07/25 04/06/25 History sodium zirconium cyclosilicate 10 10 g PO SUTUTHSA@0900 06/19/24 04/07/25 04/06/25 History gram oral powder packet (Lokelma) insulin lispro 100 unit/mL See Protocol subcut TIDAC PRN 10/30/24 04/07/25 04/06/25 History subcutaneous pen (Humalog KwikPen Blood Glucose (U-100) Insulin) dextroamphetamine-amphetamine 20 20 mg PO BID 02/24/25 04/07/25 04/06/25 History mg tablet albuterol sulfate 90 mcg/actuation 2 puff inhalation QID PRN wheezing 04/07/25 04/07/25 04/06/25 History aerosol inhaler (Ventolin HFA) alprazolam 0.5 mg tablet 0.5 - 1 mg PO DAILY anxiety attack 04/07/25 04/07/25 04/06/25 History alprazolam 2 mg tablet 2 mg PO BID 0604/07/25 04/06/25 History amlodipine 5 mg tablet 5 mg PO BID 04/07/25 04/07/25 04/06/25 History losartan 100 mg tablet 100 mg PO DAILY 04/07/25 04/07/25 04/06/25 History Physical Exam Vital Signs: Last Vital Signs Temp 97.8 F 04/07/25 08:00 Pulse 75 04/07/25 08:45 Resp 19 04/07/25 08:45 BP 152/75 H 04/07/25 08:00 Pulse Ox 94 04/07/25 08:00 O2 Del Method Nasal Cannula 04/07/25 08:00 O2 Flow Rate 2 04/07/25 08:00 BMI result Body Mass Index 23.7 Const General: alert and awake Resp Effort & Inspection: normal respiratory effort and able to speak in complete sentences Auscultation: clear to auscultation bilaterally Cardio Rate: regular rate Rhythm: regular rhythm Heart sounds: S1 normal heart sound present and S2 normal heart sound present GI Palpation (GI): Soft to palpation and nontender Skin Rashes: no rashes Extrem General: No edema and No pedal edema Results Lab Results 04/07/25 03:05 04/07/25 03:05 Lab results: Chemistry 04/07/25 03:05 Sodium 138 Potassium 3.5 D Carbon Dioxide 27 BUN 21 H Creatinine 5.96 H* Calcium 9.0 D Hematology 04/07/25 03:05 WBC 9.6 Hgb 9.2 L Plt Count 216 D Assessment and Plan (1) ESRD needing dialysis: Status: Acute Plan ESRD on HD, HD today per outpatient MWF schedule access: LUE AV fistula appears euvolemic continue sevelamer, low phos diet H&H dropped to 9.2/27.0, patient receives procrit 20,000 units 3x weekly low potassium, phosphorous, and sodium diet fluid restriction 1.5L continue to monitor electrolytes renal function studies daily regular blood pressure checks will continue to follow Discussed with Dr Peraza Procedures Date of Service Date of Service: 04/07/25
--- NOTE | 2025-04-07 12:47 | PM.CNCAR ---
History of Present Illness History of Present Illness Date of Service: 04/07/25 Chief complaint: Fluid overload Narrative: [age] year gentleman who is presenting with pulmonary edema. He has background history of end-stage renal disease on hemodialysis Thursday and Thursday. Hypertension and he has background of diabetes. He we will be following with a maple sugar maker at [facility]. He is presenting to us with sudden onset of shortness of breath and was noticed to be in pulmonary edema. He is hypertensive and was treated with dialysis today. He continues to have some crackles on examination and JVD. Blood pressure is significantly elevated. He is on some stimulants including dextroamphetamine-amphetamine 20 mg twice a day. He is on losartan 100 mg, atenolol 100 mg and amlodipine 5 mg twice a day. He is denying any chest discomfort. He is also denying any significant symptoms preceding this event. His troponins are mildly elevated at 900 but they are flat. EKGs showing inferior and lateral T-wave inversions with prolonged QTC of 521 milliseconds. [facility] Past Medical History Medical History Hypothyroidism Influenza A CHF (congestive heart failure) Acute anemia Multifactorial gait disorder Pneumonia End stage renal disease on dialysis Occult blood positive stool Anemia Internal jugular vein thrombosis Abnormality of gait ESRD needing dialysis Secondary hyperparathyroidism (of renal origin) Anemia in chronic kidney disease DONIS (acute kidney injury) Diabetes Kidney failure HTN (hypertension) Social History Social History Household Members: Spouse Housing: Unknown / Unable to assess Are you a primary healthcare marketer to a significant other at home: No Do you presently have visiting nurse or other home services: No Alcohol intake: former Comment: sitter in place Patient Tobacco Use Status: Never used Tobacco Cigarette Packs Per Day: 0 Cigarettes Per Day: 0 Years Smoked: NA e-Cigarette/Vaping Use: Never Used Second Hand Smoke Exposure: No Advance Directives Date on File: 09/07/23 service: No Meds Allergies Allergy/AdvReac Type Severity Reaction Status Date / Time Penicillins (PENICILLINS) Allergy Unknown RASH Verified 04/07/25 02:17 tramadol (From ULTRAM) Allergy Unknown RASH Verified 04/07/25 02:17 trazodone (TRAZODONE) Allergy Unknown PRIAPISM Verified 04/07/25 02:17 risperidone (RISPERIDONE) AdvReac Severe dizzy, EPS Verified 04/07/25 02:17 Active Medications: Current Medications Acetaminophen (Acetaminophen 325 Mg Tablet) 975 mg PO Q6H PRN PRN Reason: Pain, Mild 1-3,fever,headache Albuterol/Ipratropium (Albuterol/Iprat 2.5/0.5mg 3 Ml Ampul.Neb) 3 ml INHALE RQ4H PRN PRN Reason: Shortness of Breath/Wheezing Last Admin: 04/07/25 08:43 Dose: 3 ml Calcium Carbonate (Calcium Carbonate 750 Mg Tab.Chew) 750 mg PO Q4H PRN PRN Reason: Heartburn Dextrose (Dextrose 50 % 25 Gm/50 Ml Syringe) 25 gm IVPUSH Q15M PRN; Protocol PRN Reason: per Hypoglycemia Standing Ord. Epoetin Lebron-epbx (Epoetin Lebron-Epbx 10,000 Unit/Ml Vial) 10,000 unit SUBCUT MoWeFr@1645 [facility] Glucose (Glucose Gel 15 Gm Gel..Gram.) 15 gm PO Q15M PRN; Protocol PRN Reason: per Hypoglycemia Standing Ord. Heparin Sodium (Porcine) (Heparin Sodium,Porcine 5,000 Unit/Ml Vial) 5,000 unit SUBCUT Q8H [facility] Last Admin: 04/07/25 07:34 Dose: 5,000 unit Hydromorphone HCl (Hydromorphone Hcl 0.5 Mg/0.5 Ml Syringe) 0.25 mg IVPUSH Q4H PRN; Protocol PRN Reason: Pain, Severe (Pain Scale 7-10) Last Admin: 04/07/25 08:54 Dose: 0.25 mg Insulin Glargine (Insulin Glargine,Hum.Rec.Anlog 100 Unit/Ml 10 Ml Vial) 5 unit SUBCUT BEDTIME [facility] Insulin Human Lispro (Insulin Lispro 100 Unit/Ml 3 Ml Vial) 0 unit SUBCUT QIDACHS [facility]; Protocol Magnesium Hydroxide (Milk Of Magnesia 30 Ml Oral.Susp) 30 ml PO DAILY PRN PRN Reason: Constipation Melatonin (Melatonin 3 Mg Tablet) 6 mg PO BEDTIME PRN PRN Reason: Insomnia Oxycodone HCl (Oxycodone Hcl Immed Release 5 Mg Tablet) 5 mg PO Q6H PRN PRN Reason: Pain, Moderate(Pain Scale 4-6) Sodium Chloride (0.9 % Sodium Chloride Flush 3 Ml Syringe) 3 ml IVFLUSH QSHIFT [facility] Last Admin: 04/07/25 07:34 Dose: 3 ml Home Medications ?Medication ?Instructions ?Recorded ?Confirmed ?Last Taken ?Type atenolol 100 mg tablet 1 tab PO DAILY 07/11/21 04/07/25 04/06/25 History blood sugar diagnostic (FreeStyle 07/11/21 10/30/24 10/30/24 09:00 History Lite Strips) levothyroxine 137 mcg tablet 1 tab PO DAILY@0607/11/21 04/07/25 04/06/25 History pen needle, diabetic 31 gauge x 07/11/21 10/30/24 10/30/24 09:00 History 03/03 (BD Ultra-Fine Short Pen Needle) atorvastatin 40 mg tablet 40 mg PO BEDTIME 02/22/24 04/07/25 04/06/25 History sodium zirconium cyclosilicate 10 10 g PO SUTUTHSA@0906/19/24 04/07/25 04/06/25 History gram oral powder packet (Lokelma) insulin lispro 100 unit/mL See Protocol subcut TIDAC PRN 10/30/24 04/07/25 04/06/25 History subcutaneous pen (Humalog KwikPen Blood Glucose (U-100) Insulin) dextroamphetamine-amphetamine 20 20 mg PO BID 02/24/25 04/07/25 04/06/25 History mg tablet albuterol sulfate 90 mcg/actuation 2 puff inhalation QID PRN wheezing 04/07/25 04/07/25 04/06/25 History aerosol inhaler (Ventolin HFA) alprazolam 0.5 mg tablet 0.5 - 1 mg PO DAILY anxiety attack 04/07/25 04/07/25 04/06/25 History alprazolam 2 mg tablet 2 mg PO BID 04/07/25 04/07/25 04/06/25 History amlodipine 5 mg tablet 5 mg PO BID 04/07/25 04/07/25 04/06/25 History losartan 100 mg tablet 100 mg PO DAILY 04/07/25 04/07/25 04/06/25 History Physical Exam Vital Signs: Vital Signs: Last Vital Signs Temp 97.8 F 04/07/25 08:00 Pulse 75 04/07/25 08:45 Resp 19 04/07/25 08:45 BP 152/75 H 04/07/25 08:00 Pulse Ox 94 04/07/25 08:00 O2 Del Method Nasal Cannula 04/07/25 08:00 O2 Flow Rate 2 04/07/25 08:00 BMI result Body Mass Index 23.7 GENERAL APPEARANCE: in no acute distress, pleasant. NECK: no carotid bruit, + jugular venous distention. SKIN: no suspicious lesions, warm and dry. HEART: no murmurs, regular rate and rhythm. LUNGS: Crackles both bases. ABDOMEN: soft, nontender. EXTREMITIES: no edema. Left upper extremity fistula. PERIPHERAL PULSES: equal. NEUROLOGIC: No gross deficits, AAO X 3 Objective Labs and Meds 04/07/25 03:05 04/07/25 03:05 Lab results: Laboratory Results - last 24 hr 04/07/25 04/07/25 04/07/25 03:05 03:11 04:58 WBC 9.6 RBC 2.85 L Hgb 9.2 L Hct 27.0 L MCV 94.7 MCH 32.3 MCHC 34.1 RDW 15.5 Plt Count 216 D MPV 9.0 L Immature Gran % (Auto) 0.4 Neut % (Auto) 73.5 H Lymph % (Auto) 12.7 L Zapata % (Auto) 9.4 Eos % (Auto) 3.5 Baso % (Auto) 0.5 Lymph # (Auto) 1.2 Zapata # (Auto) 0.9 Eos # (Auto) 0.3 Baso # (Auto) 0.1 Abs Immat Gran (auto) 0.04 H Absolute Neuts (auto) 7.1 Absolute Nucleated RBC 0.000 Nucleated RBC % (auto) 0.0 VBG pH 7.51 H VBG pCO2 37 VBG pO2 44 VBG HCO3 30 H VBG O2 Saturation 70.0 VBG Base Excess 7.1 Sodium 138 Potassium 3.5 D Chloride 96 Carbon Dioxide 27 Anion Gap 19 BUN 21 H Creatinine 5.96 H* Estim Creat Clear Calc 10.2 Estimated GFR 9 Random Glucose 130 H Lactic Acid 0.8 Calcium 9.0 D Magnesium 1.7 Total Bilirubin 0.9 Direct Bilirubin 0.3 AST 24 ALT 10 Alkaline Phosphatase 95 Troponin I High Sens 985.9 H* D B-Natriuretic Peptide 4845 H Total Protein 6.5 Albumin 4.1 Influenza Type A (PCR) NEGATIVE Influenza Type B (PCR) NEGATIVE RSV RNA Qual (PCR) NEGATIVE SARS-CoV-2 RNA (RT-PCR) NEGATIVE 04/07/25 05:00 WBC RBC Hgb Hct MCV MCH MCHC RDW Plt Count MPV Immature Gran % (Auto) Neut % (Auto) Lymph % (Auto) Zapata % (Auto) Eos % (Auto) Baso % (Auto) Lymph # (Auto) Zapata # (Auto) Eos # (Auto) Baso # (Auto) Abs Immat Gran (auto) Absolute Neuts (auto) Absolute Nucleated RBC Nucleated RBC % (auto) VBG pH VBG pCO2 VBG pO2 VBG HCO3 VBG O2 Saturation VBG Base Excess Sodium Potassium Chloride Carbon Dioxide Anion Gap BUN Creatinine Estim Creat Clear Calc Estimated GFR Random Glucose Lactic Acid Calcium Magnesium Total Bilirubin Direct Bilirubin AST ALT Alkaline Phosphatase Troponin I High Sens 922.9 H* B-Natriuretic Peptide Total Protein Albumin Influenza Type A (PCR) Influenza Type B (PCR) RSV RNA Qual (PCR) SARS-CoV-2 RNA (RT-PCR) Assessment and Plan (1) Acute exacerbation of CHF (congestive heart failure): Status: Acute Plan 70-year-old gentleman presenting with significantly elevated blood pressure and acute heart failure. He had pulmonary edema on admission. Blood pressure is quite elevated at this stage. He is status post dialysis and has improved significantly. I think he will benefit from a 2nd session tomorrow. He is still has JVD and crackles on examination. Blood pressure is elevated and I think we should titrate medications. Advise starting hydralazine 25 mg 3 times a day and titrating it to 50 in the next day. Also he is on stimulants which can lead to elevated blood pressure and there he be reconsidered. He had mildly elevated troponin level in the setting of heart failure elevated blood pressures along with hypoxia. This is a type 2 event. He can through his maple sugar [facility]. He has QT prolongation on his EKG and medications should be selectively carefully after checking for interactions. Thank you for allowing me to participate in the care of your patient. Please feel free to contact me if you have any questions. Procedures Date of Service Date of Service: 04/07/25
--- NOTE | 2025-04-07 14:16 | PC.NURSE ---
this nurse noticed the patient was assigned a bed, was not sent a tiger text by bed placement or nursing supervisor detasseling crew, this nurse put in report into [facility] and called dialysis to let them know of the bed number, dialysis nurse stated the patient had already been transported to the bed from dialysis. this nurse asked charge-juan if she had gotten a tiger text regarding the patient and she hadnt. additionally this nurse notified our director just to ensure the loop was closed and that the patient indeed was not coming back to the ed. respiratory was also notified to bring the patients bipap to the floor and tech brought the patient chart contents to the floor as well.
[2025-04-07 15:36] LABS: Glucose, Whole Blood 136 mg/dL (60-115)
[2025-04-07] MEDS: hydrALAZINE HCl 25 MG TABLET PO ×2 (16:30→19:49)
[2025-04-07] MEDS: Epoetin Alfa-epbx 10,000 UNIT/ML VIAL 10000 UNIT SUBCUT (16:30)
[2025-04-07 19:48] LABS: Glucose, Whole Blood 164 mg/dL (60-115)
[2025-04-07] MEDS: amLODIPine Besylate 5 MG TABLET PO (19:49)
[2025-04-07] MEDS: ALPRAZolam 0.5 MG TABLET 2 MG PO (19:49)
[2025-04-07] MEDS: HYDROmorphone HCl 2 MG TABLET 4 MG PO ×2 (19:49→23:58)
[2025-04-07] MEDS: Atorvastatin Calcium 40 MG TABLET PO (19:50)
[2025-04-07] MEDS: Insulin Glargine,Hum.rec.anlog 100 UNIT/ML 10 ML VIAL SUBCUT (19:50)
[2025-04-07] MEDS: Insulin Lispro 100 UNIT/ML 3 ML VIAL SUBCUT (19:51)
[2025-04-08] MEDS: 0.9 % Sodium Chloride Flush 3 ML SYRINGE IVFLUSH ×2 (00:01→09:09)
[2025-04-08 03:35] VITALS: BP 165/74; PULSE 64; RESP 16; TEMP 36.3; O2SAT 95
[2025-04-08] MEDS: HYDROmorphone HCl 2 MG TABLET 4 MG PO (05:04)
[2025-04-08] MEDS: Levothyroxine Sodium 112 MCG, Levothyroxine Sodium 25 MCG 137 MCG PO (05:04)
[2025-04-08 07:09] LABS: Glucose, Whole Blood 88 mg/dL (60-115)
[2025-04-08 07:25] LABS: Hematocrit 30.7 % (42.0-52.0); Hemoglobin 10.4 g/dl (14.0-18.0); Mean Corpuscular HGB Conc 33.9 g/dl (31.0-36.0); Mean Corpuscular Hemoglobin 31.9 pg (27.0-33.0); Mean Corpuscular Volume 94.2 fL (80.0-98.0); Mean Platelet Volume 9.7 fL (9.4-12.4); Platelet Count 235 X10*3/uL (160-400); Red Blood Count 3.26 X10*6/uL (4.60-5.80); Red Cell Distribution Width 15.5 % (11.0-16.0); White Blood Count 7.3 X10*3/uL (4.8-10.8)
[2025-04-08 07:28] VITALS: BP 150/64; PULSE 67; RESP 18; TEMP 36.4; O2SAT 99
[2025-04-08 07:42] LABS: Anion Gap 16 (12-20); Blood Urea Nitrogen 22 mg/dL (9-16); Calcium 8.8 mg/dL (8.4-10.2); Carbon Dioxide 27 mmol/L (22-29); Chloride 98 mmol/L (96-108); Creatinine Clr Calc Pharmacy 10.8; Estimated Glomerular Filt Rate 10; Glucose Random 89 mg/dL (60-115); Magnesium 1.9 mg/dL (1.6-2.6); Potassium 3.5 mmol/L (3.3-5.1); Sodium 137 mmol/L (135-145)
[2025-04-08] MEDS: Heparin Sodium,Porcine 5,000 UNIT/ML VIAL 5000 UNIT SUBCUT ×2 (08:08→14:42)
[2025-04-08] MEDS: Losartan Potassium 50 MG TABLET 100 MG PO (09:08)
[2025-04-08] MEDS: Amphetamine Mixed Salts 20 MG TABLET PO (09:08)
[2025-04-08] MEDS: HYDROmorphone HCl 0.5 MG/0.5 ML SYRINGE 0.25 MG IVPUSH (09:08)
[2025-04-08] MEDS: hydrALAZINE HCl 25 MG TABLET PO ×2 (09:08→14:42)
[2025-04-08] MEDS: Sodium Zirconium Cyclosilicate 10 GM POWD.PACK PO (09:09)
[2025-04-08] MEDS: atenoloL 100 MG TABLET PO (09:09)
[2025-04-08] MEDS: amLODIPine Besylate 5 MG TABLET PO (09:09)
[2025-04-08] MEDS: ALPRAZolam 0.5 MG TABLET 2 MG PO (09:23)
[2025-04-08 10:54] LABS: Glucose, Whole Blood 262 mg/dL (60-115)
--- NOTE | 2025-04-08 11:14 | MHC.CM.PN ---
Addendum entered by Olivia Camacho 04/08/25 12:49: Pt is active with [facility] Original Note: IMM 04/08/25, Pt. came to [facility] from home, he had recently been at [facility] for STR and went home with VNA services, he cannot recall which VNA. PCP confirmed: Dr. Tan, HCP on file and confirmed: his [facility]. Pt. goes to [facility] for HD. For DME, he has: walker, and w/c. He was signed up for SN, PT and OT with [facility]NA that had just started. to transport home at DC, DCP: home, resume VNA services. CM to follow for DC needs.
--- NOTE | 2025-04-08 11:21 | HO.PM.IMPN ---
Subjective Subjective Date of Service: 04/08/25 Interval History: f/u on heart failure d/t fluid overload required urgent dialysis on 04/07 feels better, has some chest wall pain from cpr last week Physical Exam Vital Signs: Vital Signs: Last Vital Signs Temp 97.6 F 04/08/25 07:28 Pulse 67 04/08/25 07:28 Resp 18 04/08/25 07:28 BP 150/64 H 04/08/25 07:28 Pulse Ox 99 04/08/25 07:28 O2 Del Method Nasal Cannula 04/08/25 07:28 O2 Flow Rate 2 04/08/25 03:35 BMI result Body Mass Index 24.9 Const: Other: General: AO X 3, no acute distress Resp: CTA bilateral CVS: S1,S2,RRR GI: +BS, NT, no distention Skin: No rash Neuro: motor grossly intact Psych: appropriate affect Objective Data Active Medications Acetaminophen (Acetaminophen 325 Mg Tablet) 975 mg PO Q6H PRN PRN Reason: Pain, Mild 1-3,fever,headache Albuterol Sulfate (Albuterol Sulfate 90 Mcg 8 Gm Inhaler) 2 puff INHALE RQID PRN PRN Reason: Wheezing Albuterol/Ipratropium (Albuterol/Iprat 2.5/0.5mg 3 Ml Ampul.Neb) 3 ml INHALE RQ4H PRN PRN Reason: Shortness of Breath/Wheezing Last Admin: 04/07/25 08:43 Dose: 3 ml Documented By: IVY Alprazolam (Alprazolam 0.5 Mg Tablet) 0.5 - 1 mg PO DAILY ON LICENSE OF [facility] Last Admin: 04/08/25 09:23 Dose: Not Given Documented By: ÁNGELA Non-Admin Reason: Physician Approved Alprazolam (Alprazolam 0.5 Mg Tablet) 2 mg PO BID ON LICENSE OF [facility] Last Admin: 04/08/25 09:23 Dose: 2 mg Documented By: ÁNGELA Amlodipine Besylate (Amlodipine Besylate 5 Mg Tablet) 5 mg PO BID ON LICENSE OF [facility]; Protocol Last Admin: 04/08/25 09:09 Dose: 5 mg Documented By: ÁNGELA Amphetamine/Dextroamphetamine (Amphetamine Mixed Salts 20 Mg Tablet) 20 mg PO BID ON LICENSE OF [facility] Last Admin: 04/08/25 09:08 Dose: 20 mg Documented By: ÁNGELA Atenolol (Atenolol 100 Mg Tablet) 100 mg PO DAILY ON LICENSE OF [facility]; Protocol Last Admin: 04/08/25 09:09 Dose: 100 mg Documented By: ÁNGELA Atorvastatin Calcium (Atorvastatin Calcium 40 Mg Tablet) 40 mg PO BEDTIME ON LICENSE OF [facility] Last Admin: 04/07/25 19:50 Dose: 40 mg Documented By: AJIT Calcium Carbonate (Calcium Carbonate 750 Mg Tab.Chew) 750 mg PO Q4H PRN PRN Reason: Heartburn Dextrose (Dextrose 50 % 25 Gm/50 Ml Syringe) 25 gm IVPUSH Q15M PRN; Protocol PRN Reason: per Hypoglycemia Standing Ord. Epoetin Lebron-epbx (Epoetin Lebron-Epbx 10,000 Unit/Ml Vial) 10,000 unit SUBCUT MoWeFr@1645 ON LICENSE OF [facility] Last Admin: 04/07/25 16:30 Dose: 10,000 unit Documented By: MARCO Glucose (Glucose Gel 15 Gm Gel..Gram.) 15 gm PO Q15M PRN; Protocol PRN Reason: per Hypoglycemia Standing Ord. Heparin Sodium (Porcine) (Heparin Sodium,Porcine 5,000 Unit/Ml Vial) 5,000 unit SUBCUT Q8H ON LICENSE OF [facility] Last Admin: 04/08/25 08:08 Dose: 5,000 unit Documented By: ÁNGELA Hydralazine HCl (Hydralazine Hcl 25 Mg Tablet) 25 mg PO TID ON LICENSE OF [facility]; Protocol Last Admin: 04/08/25 09:08 Dose: 25 mg Documented By: ÁNGELA Hydromorphone HCl (Hydromorphone Hcl 0.5 Mg/0.5 Ml Syringe) 0.25 mg IVPUSH Q4H PRN; Protocol PRN Reason: Pain, Severe (Pain Scale 7-10) Last Admin: 04/08/25 09:08 Dose: 0.25 mg Documented By: ÁNGELA Hydromorphone HCl (Hydromorphone Hcl 2 Mg Tablet) 4 mg PO Q3H PRN PRN Reason: Pain Last Admin: 04/08/25 05:04 Dose: 4 mg Documented By: AJIT Insulin Glargine (Insulin Glargine,Hum.Rec.Anlog 100 Unit/Ml 10 Ml Vial) 5 unit SUBCUT BEDTIME ON LICENSE OF [facility] Last Admin: 04/07/25 19:50 Dose: 5 unit Documented By: AJIT Insulin Human Lispro (Insulin Lispro 100 Unit/Ml 3 Ml Vial) 0 unit SUBCUT QIDACHS ON LICENSE OF [facility]; Protocol Last Admin: 04/08/25 08:05 Dose: Not Given Documented By: ÁNGELA Non-Admin Reason: No Insulin Coverage Insulin Human Lispro (Insulin Lispro 100 Unit/Ml 3 Ml Vial) 0 unit SUBCUT TIDAC PRN; Protocol PRN Reason: Blood Glucose Levothyroxine Sodium 112 mcg/ (Levothyroxine Sodium 25 mcg) 137 mcg PO DAILY@0600 ON LICENSE OF [facility] Last Admin: 04/08/25 05:04 Dose: 137 mcg Documented By: AJIT Losartan Potassium (Losartan Potassium 50 Mg Tablet) 100 mg PO DAILY ON LICENSE OF [facility]; Protocol Last Admin: 04/08/25 09:08 Dose: 100 mg Documented By: ÁNGELA Magnesium Hydroxide (Milk Of Magnesia 30 Ml Oral.Susp) 30 ml PO DAILY PRN PRN Reason: Constipation Melatonin (Melatonin 3 Mg Tablet) 6 mg PO BEDTIME PRN PRN Reason: Insomnia Midodrine (Midodrine Hcl 10 Mg Tablet) 10 mg PO MOWEFR@1645 PRN PRN Reason: Dialysis hypotension Oxycodone HCl (Oxycodone Hcl Immed Release 5 Mg Tablet) 5 mg PO Q6H PRN PRN Reason: Pain, Moderate(Pain Scale 4-6) Sodium Chloride (0.9 % Sodium Chloride Flush 3 Ml Syringe) 3 ml IVFLUSH QSHIFT ON LICENSE OF [facility] Last Admin: 04/08/25 09:09 Dose: 3 ml Documented By: ÁNGELA Sodium Zirconium Cyclosilicate (Sodium Zirconium Cyclosilicate 10 Gm Powd.Pack) 10 gm PO SUTUTHSA@0900 ON LICENSE OF [facility] Last Admin: 04/08/25 09:09 Dose: 10 gm Documented By: ÁNGELA Labs 04/08/25 06:57 04/08/25 06:57 Labs: Laboratory Results - last 24 hr 04/07/25 04/07/25 04/08/25 15:22 19:28 06:57 MCV 94.2 MCH 31.9 MCHC 33.9 RDW 15.5 Plt Count 235 MPV 9.7 Absolute Nucleated RBC 0.000 Nucleated RBC % (auto) 0.0 Anion Gap 16 Estim Creat Clear Calc 10.8 Estimated GFR 10 POC Glucose 136 H 164 H Random Glucose 89 Calcium 8.8 Magnesium 1.9 04/08/25 04/08/25 07:05 10:49 MCV MCH MCHC RDW Plt Count MPV Absolute Nucleated RBC Nucleated RBC % (auto) Anion Gap Estim Creat Clear Calc Estimated GFR POC Glucose 88 262 H Random Glucose Calcium Magnesium Microbiology Microbiology Results: Microbiology 04/07/25 05:00 Blood Culture - Preliminary Blood - Venous No growth after 24 hours. 04/07/25 04:58 Blood Culture - Preliminary Blood - Venous No growth after 24 hours. Assessment and Plan (1) Acute exacerbation of CHF (congestive heart failure): Status: Acute (2) Elevated troponin: Status: Acute Plan Patient is a 70-year-old male with a past medical history significant for ESRD on HD MWF with frequent admissions due to noncompliance with dialysis, mood disorder, stage I COPD, insulin-dependent diabetes, hypothyroid, HLD, chronic anemia, HFpEF, GERD and hypertension with recent cardiac arrest due to hypoxia, who presented to the ED due to shortness of breath starting last night. He denies any sore throat, fever, chills, nausea, vomiting, nasal congestion or rhinorrhea. Acute hypoxic respiratory failure secondary to acute decompensated CHF Urgent dialysis for fluid removal yesterday and to have another dialysis session today cardiology and nephrology following, limit salt and water intake Elevated troponin trop 985, 922 on repeat, secondary to hypoxia EKG without changes no further testing at this time ESRD on HD MWF nephrology consult IDDM continue lantus, ssi and diabetic diet Chronic anemia secondary to ESRD stable no indication for transfusion Stage I COPD, no acute exacerbation Mood disorder continue home meds chronic pain continue home meds HTN Losartan, atenolol and amlodipine HLD statin Full code VTE prophylaxis: Heparin Quality Stroke Does the patient have a stroke diagnosis?: No VTE Prior VTE?: No VTE Risk Level:: Medical - moderate - high VTE Device Contraindication: Treatment Not Indicated VTE Drug Contraindication: N/A - Med Ordered
[2025-04-08] MEDS: Insulin Lispro 100 UNIT/ML 3 ML VIAL SUBCUT (11:59)
[2025-04-08 12:00] VITALS: BP 142/74; PULSE 70; RESP 20; TEMP 36.2; O2SAT 96
[2025-04-08] MEDS: Aspirin 81 MG TAB.CHEW PO (12:00)
--- NOTE | 2025-04-08 12:38 | PM.PNCARD ---
Subjective Subjective Date of Service: 04/08/25 Interval history: Seen examined at bedside. Feeling better after extra session of hemodialysis. Physical Exam Vital Signs: Last Vital Signs Temp 97.1 F 04/08/25 12:00 Pulse 70 04/08/25 12:00 Resp 20 04/08/25 12:00 BP 142/74 H 04/08/25 12:00 Pulse Ox 96 04/08/25 12:00 O2 Del Method Room Air 04/08/25 12:00 O2 Flow Rate 2 04/08/25 03:35 BMI result Body Mass Index 24.9 GENERAL APPEARANCE: in no acute distress, pleasant. NECK: no carotid bruit, no jugular venous distention. SKIN: no suspicious lesions, warm and dry. HEART: no murmurs, regular rate and rhythm. LUNGS: Clear to auscultation. ABDOMEN: soft, nontender. EXTREMITIES: no edema. Left upper extremity fistula. PERIPHERAL PULSES: equal. NEUROLOGIC: No gross deficits, AAO X 3 Objective Labs and Meds 04/08/25 06:57 04/08/25 06:57 Lab results: Laboratory Results - last 24 hr 04/07/25 04/07/25 04/08/25 15:22 19:28 06:57 WBC 7.3 RBC 3.26 L Hgb 10.4 L Hct 30.7 L MCV 94.2 MCH 31.9 MCHC 33.9 RDW 15.5 Plt Count 235 MPV 9.7 Absolute Nucleated RBC 0.000 Nucleated RBC % (auto) 0.0 Sodium 137 Potassium 3.5 Chloride 98 Carbon Dioxide 27 Anion Gap 16 BUN 22 H Creatinine 5.66 H* Estim Creat Clear Calc 10.8 Estimated GFR 10 POC Glucose 136 H 164 H Random Glucose 89 Calcium 8.8 Magnesium 1.9 04/08/25 04/08/25 07:05 10:49 WBC RBC Hgb Hct MCV MCH MCHC RDW Plt Count MPV Absolute Nucleated RBC Nucleated RBC % (auto) Sodium Potassium Chloride Carbon Dioxide Anion Gap BUN Creatinine Estim Creat Clear Calc Estimated GFR POC Glucose 88 262 H Random Glucose Calcium Magnesium Progress Note: A&P Assessment and plan (1) Acute exacerbation of CHF (congestive heart failure): Status: Acute (2) Elevated troponin: Status: Acute Plan 70-year-old gentleman with end-stage renal disease on hemodialysis, hypertension, diabetes who is presenting with acute decompensated heart failure. He underwent dialysis yesterday and today. Volume status has improved significantly. He was significantly hypertensive and blood pressure is improving at this stage. We added hydralazine 25 mg 3 times a day. This can be titrated further as outpatient. He will follow up with Dr. Mahoney at [facility]. Signing off. Thank you for allowing me to participate in the care of your patient. Please feel free to contact me if you have any questions. Time Spent With Patient Time: Total time managing care of this patient today ____ minutes. Progress Note: Quality Stroke Does the patient have a stroke diagnosis?: No Procedures Date of Service Date of Service: 04/08/25
--- NOTE | 2025-04-08 14:35 | P.DS_ITS ---
DS: Providers Provider Date of Service: 04/08/25 Date of admission: 04/07/25 06:49 Date of discharge: 04/08/25 Primary care physician: Matias Tan MD Consults: 04/07/25 07:18 Consult to Nephrology Routine Consulting Provider: [facility] Reason for consultation: ESRD on HD MWF, due today 04/07/25 07:32 Consult to Cardiology Routine Consulting Provider: [facility] Reason for consultation: NSTEMI Has provider been notified: Yes DS: Diagnosis Discharge Diagnosis (1) Acute exacerbation of CHF (congestive heart failure): Status: Acute (2) Elevated troponin: Status: Acute DS: Summary Hospital Course Hospital Course: admission hpi Chief Complaint: SOB Patient is a 70-year-old male with a past medical history significant for ESRD on HD MWF with frequent admissions due to noncompliance with dialysis, mood disorder, stage I COPD, insulin-dependent diabetes, hypothyroid, HLD, chronic anemia, GERD and hypertension with recent cardiac arrest due to hypoxia, who presented to the ED due to shortness of breath starting last night. He denies any sore throat, fever, chills, nausea, vomiting, nasal congestion or rhinorrhea. He denies a cough, abdominal pain or urinary symptoms. He does report he urinates sometimes 3 days in a row and then will go 2 days without. He has some chest discomfort which is with deep palpation after having chest compressions 4 weeks ago. This pain has not increased and has been chronic since that episode. The patient reports that he went for dialysis on Thursday and is due again this morning. He does receive Lasix prior to his dialysis. In the ED the patient was saturating 80% on 3 L therefore transitioned to CPAP with improvement. The patient has been off of CPAP for 2 hours now and has been maintaining oxygenation in the low 90s. His chest x-ray was consistent with pulmonary edema but suspected pneumonia initially therefore was given a small fluid bolus of 200 mL and started on ceftriaxone and azithromycin. After x-ray results came back the patient was given 0.5 mg of Bumex. hospital course: The patient was admitted for acute hypoxic respiratory failure caused by fluid overload in the context of end-stage renal disease (ESRD). In the emergency department, he received IV Bumex, but ultimately required hemodialysis with hemofiltration and fluid removal, followed by an additional dialysis session with fluid removal the next day. He is now improving and reports no shortness of breath. Medication adjustments include the addition of hydralazine 25 mg three times daily, as recommended by [facility] cardiology. He is advised to follow up with his primary formula mixer, Dr. Mahoney. Time Attestation Discharge Coordination Time (in mins): 45 Quality: Safe Use of Opioids Does Pt have an Active Cancer Diagnosis on the Problem List?: No Quality: Stroke Does the patient have a stroke diagnosis?: No Physical Exam Vital Signs: Vital Signs: Last Vital Signs Temp 97.1 F 04/08/25 12:00 Pulse 70 04/08/25 12:00 Resp 20 04/08/25 12:00 BP 142/74 H 04/08/25 12:00 Pulse Ox 96 04/08/25 12:00 O2 Del Method Room Air 04/08/25 12:00 O2 Flow Rate 2 04/08/25 03:35 BMI result Body Mass Index 24.9 GENERAL APPEARANCE: in no acute distress, pleasant. NECK: no carotid bruit, no jugular venous distention. SKIN: no suspicious lesions, warm and dry. HEART: no murmurs, regular rate and rhythm. LUNGS: Clear to auscultation. ABDOMEN: soft, nontender. EXTREMITIES: no edema. Left upper extremity fistula. PERIPHERAL PULSES: equal. NEUROLOGIC: No gross deficits, AAO X 3 DS: Data Data Completed and Pending Labs on day of discharge: Laboratory Results - last 24 hr 04/07/25 04/07/25 04/08/25 15:22 19:28 06:57 WBC 7.3 RBC 3.26 L Hgb 10.4 L Hct 30.7 L MCV 94.2 MCH 31.9 MCHC 33.9 RDW 15.5 Plt Count 235 MPV 9.7 Absolute Nucleated RBC 0.000 Nucleated RBC % (auto) 0.0 Sodium 137 Potassium 3.5 Chloride 98 Carbon Dioxide 27 Anion Gap 16 BUN 22 H Creatinine 5.66 H* Estim Creat Clear Calc 10.8 Estimated GFR 10 POC Glucose 136 H 164 H Random Glucose 89 Calcium 8.8 Magnesium 1.9 04/08/25 04/08/25 07:05 10:49 WBC RBC Hgb Hct MCV MCH MCHC RDW Plt Count MPV Absolute Nucleated RBC Nucleated RBC % (auto) Sodium Potassium Chloride Carbon Dioxide Anion Gap BUN Creatinine Estim Creat Clear Calc Estimated GFR POC Glucose 88 262 H Random Glucose Calcium Magnesium Preliminary micro results at discharge 04/07/25 05:00 Blood Culture - Preliminary Blood - Venous No growth after 24 hours. 04/07/25 04:58 Blood Culture - Preliminary Blood - Venous No growth after 24 hours. Discharge Plan Discharge Anticipated Discharge Date/Time: 04/08/25 14:25 Patient Disposition: Home, Self-Care Discharge Diagnosis: Acute pulmonary Edema Referrals: Matias Tan MD [Primary Care Provider, Internal Medicine] - 1 Week Discharge Medications: New hydralazine 25 mg Tablet 25 mg PO TID Qty: 270 0RF Protocol: Hold for SBP< HOLD for SBP < : 90 Continued levothyroxine 137 mcg tablet 1 tab PO DAILY@0600 atenolol 100 mg tablet 1 tab PO DAILY (DME) FreeStyle Lite Strips Strip MISCELLANEOUS TID (DME) pen needle, diabetic [BD Ultra-Fine Short Pen Needle] 31 gauge x 5/16 needle subcut DAILY Lokelma 10 gram Powder In Packet 10 g PO SUTUTHSA@0900 Rx Instructions: on non dialysis days hydromorphone 4 mg tablet 4 mg PO Q3H PRN (Reason: Pain) Qty: 10 0RF Rx Instructions: Partial Fill upon patient request. atorvastatin 40 mg tablet 40 mg PO BEDTIME insulin lispro [Humalog KwikPen Insulin] 100 unit/mL insulin pen See Protocol subcut TIDAC PRN (Reason: Blood Glucose) Protocol: Insulin Correction Scale Less than or equal to 110 ---- Give (units): 0 111 to 150 Give (units): 0 151 to 200 Give (units): 2 201 to 250 Give (units): 4 251 to 300 Give (units): 6 301 to 350 Give (units): 8 Greater than 350 Give (units): 10 Call MD if Blood Glucose > : 350 Rx Instructions: Pt does not take at home, something placed on last Admit, new orders not given at home dextroamphetamine-amphetamine 20 mg tablet 20 mg PO BID midodrine 10 mg Tablet 10 mg PO MOWEFR@1645 PRN (Reason: Dialysis Hypotension) Qty: 0 0RF amlodipine 5 mg tablet 5 mg PO BID alprazolam 0.5 mg tablet 0.5 - 1 mg PO DAILY alprazolam 2 mg tablet 2 mg PO BID albuterol sulfate [Ventolin HFA] 90 mcg/actuation HFA aerosol inhaler 2 puff inhalation QID PRN (Reason: wheezing) losartan 100 mg tablet 100 mg PO DAILY Discharge Orders: Discharge Order (Routine); Ordered 04/08/25 Ordered By: Reyes Reyes Diet: Advance to usual diet Activity on Discharge: As tolerated Stand Alone Forms: Patient Portal Discharge page Print Language: Haitian Care Plan Goals: Recovery from heart failure Health Concerns: pulmonary edema due hypervolemia in setting of ESRD Plan of Treatment: Follow up with dialysis as usual continue all your usual medications follow up with your primary care doctor in a week follow up with your heart Doctor Dr. Mahoney in a week, call for appointment Assessment: see above
[2025-04-08 15:52] LABS: Glucose, Whole Blood 87 mg/dL (60-115)
== END 2025-04-08 16:00 | disposition home or self-care (01) | DRG 291 ==
LOC: HO.ED 07:00 → HO.EDOVER 07:07 → HO.IMC 13:21
PROVIDERS: Physician Assistant; Admitting Provider Internal Medicine; Emergency Provider Emergency Medicine; PCP Family Medicine; Visit Provider Internal Medicine
DX: I13.2 Hypertensive heart and chronic kidney disease with heart failure and with stage 5 chronic kidney disease, or end stage renal disease (principal); I50.33 Acute on chronic diastolic (congestive) heart failure; N18.6 End stage renal disease; J96.01 Acute respiratory failure with hypoxia; E11.22 Type 2 diabetes mellitus with diabetic chronic kidney disease; E03.9 Hypothyroidism, unspecified; E78.5 Hyperlipidemia, unspecified; D63.1 Anemia in chronic kidney disease; F39 Unspecified mood [affective] disorder; J44.9 Chronic obstructive pulmonary disease, unspecified; Z20.822 Contact with and (suspected) exposure to COVID-19; Z99.2 Dependence on renal dialysis; Z79.4 Long term (current) use of insulin; Z79.890 Hormone replacement therapy; Z79.899 Other long term (current) drug therapy
CPT/HCPCS: 0241U; 36415; 71045; 80048; 80076; 82803; 82947; 83605; 83735; 83880; 84484; 85025; 85027; 87040; 90999; 93005; 94640; 99285; J0360; J0456; J0696; J1171; J1644; J1939; Q5106

== ENCOUNTER → 2025-04-07 02:48 | Outpatient (BNV) | payer MEDICARE, SELFPAY | PROVIDERS: Emergency Provider Emergency Medicine; PCP Family Medicine; Visit Provider Radiology Vascular & Interventional Radiology | DX: R06.02 Shortness of breath (principal); R68.89 Other general symptoms and signs | CPT/HCPCS: 71045 ==

== ENCOUNTER → 2025-04-07 06:49 | Outpatient (BNV) | payer MEDICARE, SELFPAY | PROVIDERS: Admitting Provider Internal Medicine; Emergency Provider Emergency Medicine; PCP Family Medicine; Visit Provider Nurse Practitioner Family | DX: N18.6 End stage renal disease (principal); Z99.2 Dependence on renal dialysis | CPT/HCPCS: 99221 ==

== ENCOUNTER → 2025-04-07 06:49 | Outpatient (BNV) | payer MEDICARE, SELFPAY | PROVIDERS: Admitting Provider Internal Medicine; Emergency Provider Emergency Medicine; PCP Family Medicine; Visit Provider Internal Medicine Cardiovascular Disease | DX: I50.9 Heart failure, unspecified (principal); R79.89 Other specified abnormal findings of blood chemistry | CPT/HCPCS: 93010; 99223; 99232 ==

== ENCOUNTER → 2025-04-07 06:49 | Outpatient (BNV) | payer MEDICARE, SELFPAY | PROVIDERS: Admitting Provider Internal Medicine; Emergency Provider Emergency Medicine; PCP Family Medicine; Visit Provider Physician Assistant | DX: I50.9 Heart failure, unspecified (principal); R79.89 Other specified abnormal findings of blood chemistry | CPT/HCPCS: 99239 ==

== ENCOUNTER 2025-05-28 19:39 | Inpatient (IN) | payer MEDICARE, SELFPAY ==
--- NOTE | ~2025-05-28 | XR_ITS ---
CLINICAL HISTORY: SOB 1 view chest x-ray Comparison: 04/07/2025, 02/2025 Findings: Lungs are clear without acute infiltrates. Stable chronic interstitial disease. No pneumothorax. Heart size normal. No acute bony abnormalities. Impression: No acute processes This document has been electronically signed by: Nic Garcia MD on 05/28/2025 20:32:33
--- NOTE | 2025-05-28 19:45 | ED.GENADULT ---
HPI - General Adult General Chief complaint: Dyspnea Stated complaint: SOB, end stage renal disease Time Seen by Provider: 05/28/25 22:31 Source: patient Mode of arrival: ambulatory Limitations: no limitations History of Present Illness ED Provider: Dr. Kerry Morrissey HPI narrative: 70-year-old male with extensive past medical history including ESRD on dialysis Thursday, CHF, hypertension, insulin-dependent diabetes, hypothyroidism presenting with shortness of breath that began today while he was laying down taking a nap. Patient admits that the shortness of breath woke him from sleep. Describes a ?tightness in his chest? where he felt he could not get a deep breath. Denies associated fever, sputum production, chest pain, abdominal pain, nausea, bowel changes, urinary complaints (he does still make a small amount of urine every few days), known sick contacts or travel. Related Data Home Medications ?Medication ?Instructions ?Recorded ?Confirmed atenolol 100 mg tablet 1 tab PO DAILY 07/11/21 05/29/25 blood sugar diagnostic (FreeStyle 07/11/21 10/30/24 Lite Strips) levothyroxine 137 mcg tablet 137 mcg PO DAILY@0600 07/11/21 05/29/25 pen needle, diabetic 31 gauge x 07/11/21 10/30/24 5/16 (BD Ultra-Fine Short Pen Needle) atorvastatin 40 mg tablet 40 mg PO BEDTIME 02/22/24 05/29/25 sodium zirconium cyclosilicate 10 10 g PO SUTUTHSA@0900 06/19/24 05/29/25 gram oral powder packet (Lokelma) insulin lispro 100 unit/mL See Protocol subcut TIDAC PRN 10/30/24 05/29/25 subcutaneous pen (Humalog KwikPen Blood Glucose (U-100) Insulin) dextroamphetamine-amphetamine 20 20 mg PO DAILY PRN Mood 02/24/25 05/29/25 mg tablet (Adderall) alprazolam 0.5 mg tablet 0.5 - 1 mg PO DAILY PRN anxiety 04/07/25 05/29/25 attack alprazolam 2 mg tablet 2 mg PO BID 04/07/25 05/29/25 amlodipine 5 mg tablet 5 mg PO BID 04/07/25 05/29/25 losartan 100 mg tablet 100 mg PO DAILY 04/07/25 05/29/25 Previous Rx's ?Medication ?Instructions ?Recorded midodrine 10 mg tablet 10 mg PO MOWEFR@1645 PRN Dialysis 02/27/25 Hypotension #0 tabs hydromorphone 4 mg tablet 4 mg PO Q3H PRN Pain #10 tabs 03/10/25 hydralazine 25 mg tablet 25 mg PO TID #270 tabs 04/08/25 Allergies Allergy/AdvReac Type Severity Reaction Status Date / Time Penicillins (PENICILLINS) Allergy Unknown RASH Verified 05/28/25 19:48 tramadol (From ULTRAM) Allergy Unknown RASH Verified 05/28/25 19:48 trazodone (TRAZODONE) Allergy Unknown PRIAPISM Verified 05/28/25 19:48 risperidone (RISPERIDONE) AdvReac Severe dizzy, EPS Verified 05/28/25 19:48 Review of Systems Review of Systems: As per HPI, full review of systems performed and negative but for the above mentioned pertinent positives and negatives. [facility] Past Medical History Attestation statement: The following information was validated with the patient. [facility] Narrative: ESRD on dialysis Thursday, CHF, hypertension, insulin-dependent diabetes, hypothyroidism Source: old records reviewed and nursing notes reviewed Medical History ESRD needing dialysis Hypothyroidism Influenza A CHF (congestive heart failure) Acute anemia Multifactorial gait disorder Pneumonia End stage renal disease on dialysis Occult blood positive stool Anemia Internal jugular vein thrombosis Abnormality of gait ESRD needing dialysis Secondary hyperparathyroidism (of renal origin) Anemia in chronic kidney disease DONIS (acute kidney injury) Diabetes Kidney failure HTN (hypertension) Social History Social History Household Members: Spouse Housing: Unknown / Unable to assess Are you a primary manager respiratory care to a significant other at home: No Do you presently have visiting nurse or other home services: No Alcohol intake: former Comment: sitter in place Patient Tobacco Use Status: Never used Tobacco Cigarette Packs Per Day: 0 Cigarettes Per Day: 0 Years Smoked: NA Smoked in Last 30 Days: No e-Cigarette/Vaping Use: Never Used Second Hand Smoke Exposure: No Use of substances other than those prescribed or required for medical reasons: No Advance Directives: Yes Advance Directives on File: Yes Advance Directives Date on File: 09/07/23 Do you have a plan to hurt others: No Plan service: No Physical Exam ED Exam Exam: GENERAL: Chronically ill-appearing, conversant, no acute distress. SKIN: Pale, warm, dry, no rashes noted. HEENT: Normocephalic, atraumatic, no stridor, posterior oropharynx nonerythematous, EOMI. NECK: Soft, supple, full ROM, midline structures nontender, no step-offs, no deformities, no lymphadenopathy. CHEST: Heart regular rate and rhythm, no murmurs, symmetric chest rise and fall. PULMONARY: Clear to auscultation bilaterally, no labored breathing, no wheezes/rhales/ rhonchi. ABDOMINAL: Soft, nondistended, nontender, positive bowel sounds in all quadrants. : Deferred. MUSCULOSKELETAL: Normal tone, full range of motion, no deformities, no peripheral edema. NEURO: Alert and oriented to person, CN II through XII intact, no focal neurologic deficits. PSYCHIATRIC: Flat affect, fluid speech, appropriate demeanor. Vital Signs: Vital Signs - 24 hr 05/28/25 19:46 05/28/25 20:23 05/28/25 22:06 Temperature 97.5 F 98.7 F 98.1 F Pulse Rate 73 71 66 Respiratory Rate 22 H 17 15 Blood Pressure 196/84 H 147/65 H 164/74 H Pulse Oximetry 94 98 94 Oxygen Delivery Method Room Air Room Air Room Air 05/28/25 23:46 05/28/25 23:47 Temperature 97.9 F Pulse Rate 71 Respiratory Rate 15 Blood Pressure 168/72 H 175/79 H Pulse Oximetry 96 Oxygen Delivery Method Room Air BMI result Body Mass Index 24.2 Course Course Course Narrative: Rapid medical examination performed in triage by Marifer Johnson PA-C. Patient is a 70 year old assigned male at presenting to the emergency department with shortness of breath. Patient states that he has ESRD for which he dialyzes MWF, director script is Dr. Sawyer Davis. Detailed physical exam and review of systems are deferred to the immigration services officer. EKG, labs, imaging, swabs ordered. Patient placed back in the waiting room pending room availability and results. Medications Administered Generic Name Dose Route Start Last Admin Trade Name Freq PRN Reason Stop Dose Admin Alprazolam 2 mg 05/29/25 09:00 05/29/25 07:53 Alprazolam 0.5 Mg Tablet PO 2 mg BID [facility] Administration Diphenhydramine HCl 25 mg 05/29/25 09:34 05/29/25 09:56 Diphenhydramine Hcl 25 Mg Capsule PO 25 mg Q4H PRN Administration itching/rash Heparin Sodium (Porcine) 5,000 unit 05/29/25 09:00 05/29/25 07:55 Heparin Sodium,Porcine 5,000 Unit/Ml Vial SUBCUT 5,000 unit Q12H [facility] Administration Hydromorphone HCl 4 mg 05/29/25 05:36 05/29/25 07:47 Hydromorphone Hcl 2 Mg Tablet PO 4 mg Q3H PRN Administration Pain, Severe (Pain Scale 7-10) Insulin Human Lispro 0 unit 05/29/25 07:30 05/29/25 07:45 Insulin Lispro 100 Unit/Ml 3 Ml Vial SUBCUT Not Given QIDAS [facility] Protocol Levothyroxine Sodium 112 mcg/ 137 mcg 05/29/25 06:00 05/29/25 06:07 Levothyroxine Sodium 25 mcg PO 137 mcg DAILY@0600 [facility] Administration Sodium Chloride 3 ml 05/29/25 08:00 05/29/25 07:48 0.9 % Sodium Chloride Flush 3 Ml Syringe IVFLUSH 3 ml QSHIFT [facility] Administration Discontinued Medications Generic Name Dose Route Start Last Admin Trade Name Flakito ZELAYAN Reason Stop Dose Admin Bumetanide 2 mg 05/29/25 04:56 05/29/25 06:35 Bumetanide 1 Mg/4 Ml Vial IVPUSH 05/29/25 04:57 2 mg ONCE ONE Administration Protocol Diphenhydramine HCl 50 mg 05/29/25 01:06 05/29/25 01:15 Diphenhydramine Hcl 25 Mg Capsule PO 05/29/25 01:07 50 mg ONCE ONE Administration Furosemide 40 mg 05/28/25 23:41 05/28/25 23:46 Furosemide 40 Mg Tablet PO 05/28/25 23:42 40 mg ONCE ONE Administration Protocol Hydromorphone HCl 2 mg 05/29/25 01:02 05/29/25 01:15 Hydromorphone Hcl 2 Mg Tablet PO 05/29/25 01:03 2 mg ONCE ONE Administration Medical Decision Making Medical Decision Making [facility] Narrative: Patient presents today with chief complaint of shortness of breath. Differential diagnosis includes, but is not limited to, upper respiratory infection, pneumonia, COPD exacerbation, asthma exacerbation, CHF, pneumothorax, pleural effusion, pulmonary embolism, ACS. Broad-based work-up will be initiated to evaluate for etiology of patient's symptoms. Patient initially resistant to being hospitalized for shortness of breath. States that he feels significantly improved with supplemental oxygen. However, his oxygen level drops into the mid 80s and only improves above about 94% on 4 L nasal cannula. Discuss this with him at length. He is due for dialysis today. Unfortunately, his already canceled his appointment with his dialysis treatment due to his trip to the emergency department today. Plan for admission to hospitalist for further care and evaluation. Patient admitted in guarded condition. Differential Diagnosis Differential Diagnoses: The differential diagnosis associated with the presentation includes (As above) Admission/Observation Consideration of admission/observation: Escalation of care including admission/observation considered Consult Healthcare Provider Management of the patient was discussed with: Hospitalist Lab Data [facility] Lab Attestation statement: I reviewed the patient's lab results. BNP elevated, similar to previous hospitalization, anemia is close to baseline, renal failure is known, no significant electrolyte abnormality (potassium only slightly out of range) 05/28/25 20:02 05/29/25 04:19 Labs: Lab Results 05/28/25 05/28/25 Range/Units 20:02 20:10 WBC 9.6 (4.8-10.8) X10*3/uL RBC 3.44 L (4.60-5.80) X10*6/uL Hgb 10.7 L (14.0-18.0) g/dl Hct 31.1 L (42.0-52.0) % MCV 90.4 (80.0-98.0) fL MCH 31.1 (27.0-33.0) pg MCHC 34.4 (31.0-36.0) g/dl RDW 15.3 (11.0-16.0) % Plt Count 206 (160-400) X10*3/uL MPV 9.9 (9.4-12.4) fL Immature Gran % (Auto) 0.3 (0.0-0.4) % Neut % (Auto) 65.8 (45-73) % Lymph % (Auto) 14.7 L (20-40) % Banks % (Auto) 8.2 (2-11) % Eos % (Auto) 10.1 H (0-4) % Baso % (Auto) 0.9 (0-2) % Lymph # (Auto) 1.4 (1.2-4.9) X10*3/uL Banks # (Auto) 0.8 (0.1-1.2) X10*3/uL Eos # (Auto) 1.0 H (0.0-0.4) X10*3/uL Baso # (Auto) 0.1 (0.0-0.2) X10*3/uL Abs Immat Gran (auto) 0.03 (0.00-0.03) X10*3/uL Absolute Neuts (auto) 6.3 (2.0-8.3) x10*3/uL Absolute Nucleated RBC 0.000 (0.0-0.012) X10*3/uL Nucleated RBC % (auto) 0.0 (0.0-0.2) /100WBC VBG pH 7.52 H (7.32-7.43) VBG pCO2 35 mmHg VBG pO2 58 mmHg VBG HCO3 29 H (22-26) mmol/L VBG O2 Saturation 89.0 % VBG Base Excess 6.5 mmol/L Sodium 136 (135-145) mmol/L Potassium 5.1 D (3.3-5.1) mmol/L Chloride 92 L (96-108) mmol/L Carbon Dioxide 25 (22-29) mmol/L Anion Gap 24 H (12-20) BUN 57 H (9-16) mg/dL Creatinine 7.78 H* (0.5-1.4) mg/dL Estim Creat Clear Calc 7.8 Estimated GFR 7 Random Glucose 136 H (60-115) mg/dL Calcium 9.1 (8.4-10.2) mg/dL Magnesium 1.9 (1.6-2.6) mg/dL Total Bilirubin 0.9 (0.0-1.0) mg/dL AST 26 (5-37) U/L ALT 14 (0-40) U/L Alkaline Phosphatase 93 (39-117) U/L Troponin I High Sens 11.6 D (<3.5-35.0) ng/L B-Natriuretic Peptide 4346 H (<100) pg/mL Total Protein 7.3 (6.5-8.0) g/dL Albumin 4.5 (3.5-5.0) g/dL Influenza Type A (PCR) NEGATIVE (Negative) Influenza Type B (PCR) NEGATIVE (Negative) RSV RNA Qual (PCR) NEGATIVE (Negative) SARS-CoV-2 RNA (RT-PCR) NEGATIVE (Negative) Independent Interpretation I performed an independent interpretation of an: EKG Interpretation: Sinus rhythm with a rate of 72, inferior T-wave inversions are unchanged from previous on 04/07/25 Radiology Impression Discussion of test interpretation with radiology: I have reviewed the radiologist's reading. Radiologist Impression: 1 view chest x-ray Comparison: 04/07/2025, 02/2025 Findings: Lungs are clear without acute infiltrates. Stable chronic interstitial disease. No pneumothorax. Heart size normal. No acute bony abnormalities. Impression: No acute processes This document has been electronically signed by: Nic Garcia MD on 05/28/2025 20:32:33 External Record Review External record reviewed: Inpatient record Chronic Conditions Patient?s care impacted by: Diabetes, Hypertension and Other (ESRD on dialysis) Discharge Plan Discharge Clinical Impression: Acute exacerbation of CHF (congestive heart failure), ESRD on dialysis, Acute dyspnea Patient Disposition: Admitted As Inpatient
[2025-05-28 19:46] VITALS: BP 196/84; PULSE 73; RESP 22; TEMP 36.4; O2SAT 94; BMI 24.2
--- NOTE | 2025-05-28 19:48 | ECG_ITS ---
Test Reason : SOB Blood Pressure : */* mmHG Vent. Rate : 72 BPM Atrial Rate : 72 BPM P-R Int : 150 ms QRS Dur : 84 ms QT Int : 428 ms P-R-T Axes : 40 14 -18 degrees QTcB Int : 468 ms Normal sinus rhythm T wave abnormality, consider inferior ischemia Abnormal ECG When compared with ECG of 07-Apr-2025 02:30, T wave inversion no longer evident in Anterior leads QT has shortened Referred By: Marifer Johnson Electronically Signed By: Satinder Lyn
[2025-05-28 20:09] LABS: MANUAL DIFF FLAG NO
[2025-05-28 20:10] LABS: Hematocrit 31.1 % (42.0-52.0); Hemoglobin 10.7 g/dl (14.0-18.0); Imm Gran Abs Auto 0.03 X10*3/uL (0.00-0.03); Imm Gran Pct Auto 0.3 % (0.0-0.4); Lymphocytes Absolute Auto 1.4 X10*3/uL (1.2-4.9); Mean Corpuscular HGB Conc 34.4 g/dl (31.0-36.0); Mean Corpuscular Hemoglobin 31.1 pg (27.0-33.0); Mean Corpuscular Volume 90.4 fL (80.0-98.0); NRBC Abs Auto 0.000 X10*3/uL (0.0-0.012); NRBC Pct Auto 0.0 /100WBC (0.0-0.2); Platelet Count 206 X10*3/uL (160-400); Red Blood Count 3.44 X10*6/uL (4.60-5.80); White Blood Count 9.6 X10*3/uL (4.8-10.8)
[2025-05-28 20:14] LABS: VBG HCO3 29 mmol/L (22-26); VBG O2 % Saturation 89.0 %
[2025-05-28 20:15] LABS: Venous Blood Gas Refer to POC result
[2025-05-28 20:23] VITALS: BP 147/65; PULSE 71; RESP 17; TEMP 37.1; O2SAT 98
[2025-05-28 20:30] LABS: Alanine Aminotransferase 14 U/L (0-40); Albumin Level 4.5 g/dL (3.5-5.0); Alkaline Phosphatase 93 U/L (39-117); Anion Gap 24 (12-20); Aspartate Amino Transferase 26 U/L (5-37); Blood Urea Nitrogen 57 mg/dL (9-16); Calcium 9.1 mg/dL (8.4-10.2); Carbon Dioxide 25 mmol/L (22-29); Chloride 92 mmol/L (96-108); Creatinine Clr Calc Pharmacy 7.8; Estimated Glomerular Filt Rate 7; Magnesium 1.9 mg/dL (1.6-2.6); Potassium 5.1 mmol/L (3.3-5.1); Sodium 136 mmol/L (135-145); Total Protein 7.3 g/dL (6.5-8.0)
[2025-05-28 20:32] LABS: B Type Natriuretic Peptide 4346 pg/mL (<100)
[2025-05-28 20:49] LABS: Resp Syncy Virus RNA Qual PCR NEGATIVE (Negative); SARS COV2 PCR INHOUSE NEGATIVE (Negative)
[2025-05-28 22:06] VITALS: BP 164/74; PULSE 66; RESP 15; TEMP 36.7; O2SAT 94
[2025-05-28 23:46] VITALS: BP 168/72
[2025-05-28 23:47] VITALS: BP 175/79; PULSE 71; RESP 15; TEMP 36.6; O2SAT 96
[2025-05-29] VITALS (10 sets, daily range): BP systolic 153–173; BP diastolic 69–80; PULSE 64–70; RESP 12–20; TEMP 36.4–37.1; O2SAT 93–99
--- NOTE | 2025-05-29 01:08 | PC.NURSE ---
Addendum entered by Waleska Connolly RN 05/29/25 06:08: pt is a difficult stick and can only use right arm due to left arm being used for dialysis. warming up arm in blankets and a hot pack will have another RN reattempt. Original Note: pt noted to desat to 85% on RA, placed pt on 4L with improvement to 95%.
[2025-05-29 01:38] LABS: Troponin-I High Sensitivity 11.6 ng/L (<3.5-35.0)
--- NOTE | 2025-05-29 01:50 | PC.RT ---
PT DOES NOT WANT CPAP. ALSO RR 16 BS: FINE CRACKLES SUSANNAH SATS 92% ON 2. NO RESP DISTRESS ALTHOUGH BNP IS ELEVATED
--- NOTE | 2025-05-29 05:05 | PM.IMHP ---
History of Present Illness Date of Service: 05/29/25 Attending physician on admission: James Bobby Chief Complaint: orthopnea Patient is a 70-year-old male with a past medical history significant for ESRD on HD MWF with frequent admissions due to noncompliance with dialysis, mood disorder, stage I COPD, insulin-dependent diabetes, hypothyroid, HLD, chronic anemia, GERD and hypertension with recent cardiac arrest (03/07/25) due to hypoxia, who presented to the ED due to shortness of breath and orthopnea. He reports compliance with dialysis, last went Thursday. On arrival he complained of chest pain, however, he now states that he was never having chest pain, just his chronic back pain. He denies any sore throat, fever, chills, nausea, vomiting, nasal congestion or rhinorrhea. He denies a cough, abdominal pain or urinary symptoms. He reports small amounts of urination daily, no urination since taking the IV Lasix. Chest x-ray was negative for pulmonary edema, BNP is at baseline, 4346. He was given 40 mg IV Lasix in the ED without any urine output. Labs with hypochloremia and creatinine more elevated than baseline at 7.78. No leukocytosis or sign of infection. Chronic anemia stable. Patient to be admitted for mild acute CHF exacerbation and need for dialysis. Review of Systems Constitutional: Constitutional: Denies body ache(s), Denies chills, Reports fatigue, Denies fever(s) and Denies headache(s) Eyes: Eyes: Denies change in vision ENT: Denies headache(s), Denies nasal congestion and Denies sore throat Cardiovascular: Cardiovascular: Denies chest pain, Denies rapid heart rate, Denies lightheadedness and Reports dyspnea Respiratory: Respiratory: Denies chest congestion, Denies cough, Reports dyspnea and Denies wheezing Gastrointestinal: Gastrointestinal: Denies abdominal pain, Denies diarrhea, Denies nausea and Denies vomiting Genitourinary: Genitourinary: Denies dysuria, Denies urinary frequency and Denies urinary urgency Musculoskeletal: Musculoskeletal: Denies myalgias Integumentary/Breasts: Skin/Breast: Denies rash Neurologic: Denies confusion and Denies headache(s) Psychiatric: Psychiatric: Denies confusion Endocrine: Endocrine: Reports fatigue Hematologic/Lymphatic: Hematologic/Lymphatic: Denies easy bleeding and Denies easy bruising Allergic/Immunologic: Allergic/Immunologic: Denies wheezing [facility] Medical History ESRD needing dialysis Hypothyroidism Influenza A CHF (congestive heart failure) Acute anemia Multifactorial gait disorder Pneumonia End stage renal disease on dialysis Occult blood positive stool Anemia Internal jugular vein thrombosis Abnormality of gait ESRD needing dialysis Secondary hyperparathyroidism (of renal origin) Anemia in chronic kidney disease DONIS (acute kidney injury) Diabetes Kidney failure HTN (hypertension) Social History Household Members: Spouse Housing: Unknown / Unable to assess Are you a primary care attendant to a significant other at home: No Do you presently have visiting nurse or other home services: No Alcohol intake: former Comment: sitter in place Patient Tobacco Use Status: Never used Tobacco Cigarette Packs Per Day: 0 Cigarettes Per Day: 0 Years Smoked: NA Smoked in Last 30 Days: No e-Cigarette/Vaping Use: Never Used Second Hand Smoke Exposure: No Use of substances other than those prescribed or required for medical reasons: No Advance Directives: Yes Advance Directives on File: Yes Advance Directives Date on File: 09/07/23 Do you have a plan to hurt others: No Plan service: No Meds Allergies Allergy/AdvReac Type Severity Reaction Status Date / Time Penicillins (PENICILLINS) Allergy Unknown RASH Verified 05/28/25 19:48 tramadol (From ULTRAM) Allergy Unknown RASH Verified 05/28/25 19:48 trazodone (TRAZODONE) Allergy Unknown PRIAPISM Verified 05/28/25 19:48 risperidone (RISPERIDONE) AdvReac Severe dizzy, EPS Verified 05/28/25 19:48 Active Medications: Current Medications Acetaminophen (Acetaminophen 325 Mg Tablet) 650 mg PO Q6H PRN PRN Reason: Pain, Mild 1-3,fever,headache Calcium Carbonate (Calcium Carbonate 750 Mg Tab.Chew) 750 mg PO Q4H PRN PRN Reason: Heartburn Heparin Sodium (Porcine) (Heparin Sodium,Porcine 5,000 Unit/Ml Vial) 5,000 unit SUBCUT Q12H FRANCINE Magnesium Hydroxide (Milk Of Magnesia 30 Ml Oral.Susp) 30 ml PO DAILY PRN PRN Reason: Constipation Magnesium Hydroxide (Milk Of Magnesia 30 Ml Oral.Susp) 30 ml PO DAILY PRN PRN Reason: Constipation Melatonin (Melatonin 3 Mg Tablet) 6 mg PO BEDTIME PRN PRN Reason: Insomnia Sodium Chloride (0.9 % Sodium Chloride Flush 3 Ml Syringe) 3 ml IVFLUSH QSHIFT FRANCINE Sodium Chloride (0.9 % Sodium Chloride Flush 3 Ml Syringe) 3 ml IVFLUSH QSHIFT FRANCINE Home Medications ?Medication ?Instructions ?Recorded ?Confirmed ?Last Taken ?Type atenolol 100 mg tablet 1 tab PO DAILY 07/11/21 04/07/25 04/06/25 History blood sugar diagnostic (FreeStyle 07/11/21 10/30/24 10/30/24 09:00 History Lite Strips) levothyroxine 137 mcg tablet 1 tab PO DAILY@0607/11/21 04/07/25 04/06/25 History pen needle, diabetic 31 gauge x 07/11/21 10/30/24 10/30/24 09:00 History 5/16 (BD Ultra-Fine Short Pen Needle) atorvastatin 40 mg tablet 40 mg PO BEDTIME 02/22/24 04/07/25 04/06/25 History sodium zirconium cyclosilicate 10 10 g PO SUTUTHSA@0900 06/19/24 04/07/25 04/06/25 History gram oral powder packet (Lokelma) insulin lispro 100 unit/mL See Protocol subcut TIDAC PRN 10/30/24 04/07/25 04/06/25 History subcutaneous pen (Humalog KwikPen Blood Glucose (U-100) Insulin) dextroamphetamine-amphetamine 20 20 mg PO BID 02/24/25 04/07/25 04/06/25 History mg tablet albuterol sulfate 90 mcg/actuation 2 puff inhalation QID PRN wheezing 04/07/25 04/07/25 04/06/25 History aerosol inhaler (Ventolin HFA) alprazolam 0.5 mg tablet 0.5 - 1 mg PO DAILY anxiety attack 04/07/25 04/07/25 04/06/25 History alprazolam 2 mg tablet 2 mg PO BID 04/07/25 04/07/25 04/06/25 History amlodipine 5 mg tablet 5 mg PO BID 04/07/25 04/07/25 04/06/25 History losartan 100 mg tablet 100 mg PO DAILY 04/07/25 04/07/25 04/06/25 History Physical Exam Vital Signs and Narrative: Vital Signs: Last Vital Signs Temp 98.7 F 05/29/25 01:14 Pulse 70 05/29/25 01:14 Resp 15 05/29/25 01:14 BP 167/73 H 05/29/25 01:14 Pulse Ox 94 05/29/25 01:14 O2 Del Method Nasal Cannula 05/29/25 01:14 O2 Flow Rate 4 05/29/25 01:14 BMI result Body Mass Index 24.2 General: AOx3, no acute distress Resp: Crackles bilateral lung bases, no wheezing or respiratory distress CVS: RRR GI: +BS, NT, no distention Skin: Warm, dry Neuro: Cranial nerves II-XII grossly intact bilaterally. Motor grossly intact bilaterally Extremities: No pitting edema Psych: Appropriate affect Const: General: No confusion Orientation/consciousness: No confusion Neuro: General: No confusion Results Labs 05/28/25 20:02 05/29/25 04:19 Labs: Laboratory Results - last 24 hr 05/28/25 05/28/25 20:02 20:10 MCV 90.4 MCH 31.1 MCHC 34.4 RDW 15.3 Plt Count 206 MPV 9.9 Immature Gran % (Auto) 0.3 Neut % (Auto) 65.8 Lymph % (Auto) 14.7 L [place] % (Auto) 8.2 Eos % (Auto) 10.1 H Baso % (Auto) 0.9 Lymph # (Auto) 1.4 [place] # (Auto) 0.8 Eos # (Auto) 1.0 H Baso # (Auto) 0.1 Abs Immat Gran (auto) 0.03 Absolute Neuts (auto) 6.3 Absolute Nucleated RBC 0.000 Nucleated RBC % (auto) 0.0 VBG pH 7.52 H VBG pCO2 35 VBG pO2 58 VBG HCO3 29 H VBG O2 Saturation 89.0 VBG Base Excess 6.5 Anion Gap 24 H Estim Creat Clear Calc 7.8 Estimated GFR 7 Random Glucose 136 H Calcium 9.1 Magnesium 1.9 Total Bilirubin 0.9 AST 26 ALT 14 Alkaline Phosphatase 93 B-Natriuretic Peptide 4346 H Total Protein 7.3 Albumin 4.5 Influenza Type A (PCR) NEGATIVE Influenza Type B (PCR) NEGATIVE RSV RNA Qual (PCR) NEGATIVE SARS-CoV-2 RNA (RT-PCR) NEGATIVE Assessment and Plan (1) Acute hypoxic respiratory failure: Status: Acute (2) Acute exacerbation of CHF (congestive heart failure): Status: Acute (3) ESRD on dialysis: Status: Acute Plan Patient is a 70-year-old male with a past medical history significant for ESRD on HD MWF with frequent admissions due to noncompliance with dialysis, mood disorder, stage I COPD, insulin-dependent diabetes, hypothyroid, HLD, chronic anemia, GERD and hypertension with recent cardiac arrest (03/07/25) due to hypoxia, who presented to the ED due to shortness of breath and orthopnea. Chest x-ray was negative for pulmonary edema, BNP is at baseline, 4346. He was given 40 mg IV Lasix in the ED without any urine output. Labs with hypochloremia and creatinine more elevated than baseline at 7.78. No leukocytosis or sign of infection. Chronic anemia stable. Patient to be admitted for mild acute CHF exacerbation and need for dialysis. acute hypoxic respiratory failure secondary to acute CHF exacerbation - no leukocytosis or fever, vitals stable, no sign of infection - CXR negative - crackles in lung bases and pt symptomatic with orthopnea - COVID/flu/RSV negative - BNP near baseline 4346 - recent echo with EF of 55-60% - given 40mg IV lasix in ED without any urine output, add 2mg IV bumex - monitor Is and Os - titrate O2 PRN - monitor CBC and BMP ESRD on HD MWF - nephrology consult [facility] per pt IDDM - diabetic diet, low salt, low phosphorus, low potassium - sliding scale insulin - ?lantus pending med rec Chronic anemia secondary to ESRD - hemoglobin stable, 10.7 - no need for blood transfusion at this time - monitor CBC Stage I COPD, no acute exacerbation - no active wheezing at this time - continue home meds Mood disorder - continue home meds chronic pain - continue home meds HTN - continue home meds HLD - continue home meds med rec pending Full code VTE prophylaxis: Heparin Patient with acute hypoxic respiratory failure secondary to acute decompensated CHF exacerbation, requiring admission for at least 2 midnight stay for IV diuresis and monitoring with dialysis. Quality Stroke Does the patient have a stroke diagnosis?: No VTE Prior VTE?: No VTE Risk Level:: Medical - moderate - high VTE Device Contraindication: Treatment Not Indicated VTE Drug Contraindication: N/A - Med Ordered
[2025-05-29 05:22] LABS: Anion Gap 22 (12-20); Blood Urea Nitrogen 59 mg/dL (9-16); Calcium 8.6 mg/dL (8.4-10.2); Carbon Dioxide 24 mmol/L (22-29); Chloride 95 mmol/L (96-108); Creatinine Clr Calc Pharmacy 7.6; Estimated Glomerular Filt Rate 7; Potassium 5.0 mmol/L (3.3-5.1); Sodium 136 mmol/L (135-145)
[2025-05-29] MEDS: Levothyroxine Sodium 112 MCG, Levothyroxine Sodium 25 MCG 137 MCG PO (06:07)
[2025-05-29] MEDS: Bumetanide 1 MG/4 ML VIAL 2 MG IVPUSH (06:35)
[2025-05-29 07:34] LABS: Glucose, Whole Blood 84 mg/dL (60-115)
[2025-05-29] MEDS: 0.9 % Sodium Chloride Flush 3 ML SYRINGE IVFLUSH (07:48)
--- NOTE | 2025-05-29 08:53 | PHA.MEDREC ---
Addendum entered by Imani Walker formerly [facility] 05/29/25 10:15: MED REC REVIEWED BY [facility] Addendum entered by Zuleyma Rosenberg 05/29/25 10:06: Spoke again with pt about Dextroamphetamine-Amphetamine (Adderall); claims shows he just got it filled 04/03 QTY 90 for 90 days; pt originally confirmed 1 BID with me, after speaking with him again pt confirmed he is now taking 1 20mg tab daily as needed for his mood. Original Note: Pharmacy Consult ? Medication Reconciliation Pharmacy has completed the medication reconciliation. Spoke with pt and he confirmed his medications. Per pt: he has not taken the Albuterol inhaler in over a year; I took that off the med rec, he is taking Adderall 20mg 1 BID but states he does not want to take it while impatient, pt confirmed he uses Humalog as needed is his blood sugars get too high, he uses Lokemla on non dialysis days (SUTUTHSA) and Midrodine as needed on dialysis days for dialysis hypotension (MOWEFR).
[2025-05-29 12:17] LABS: Glucose, Whole Blood 138 mg/dL (60-115)
--- NOTE | 2025-05-29 12:46 | PM.DS ---
DS: Providers Provider Date of Service: 05/29/25 Date of admission: 05/29/25 01:13 Date of discharge: 05/29/25 Primary care physician: Matias Tan MD Consults: 05/29/25 04:57 Consult to Nephrology Routine Consulting Provider: [facility] Reason for consultation: needs dialysis, HD MWF, fluid overload, last went Thursday Has provider been notified: No DS: Diagnosis Discharge Diagnosis (1) Acute hypoxic respiratory failure: Status: Acute (2) Acute exacerbation of CHF (congestive heart failure): Status: Acute (3) ESRD on dialysis: Status: Acute (4) Acute on chronic heart failure with preserved ejection fraction (HFpEF): Status: Acute DS: Summary Hospital Course Hospital Course: From the history and physical by the admitting hospitalist, Nina TRONCOSO, 05/29/25: Patient is a 70-year-old male with a past medical history significant for ESRD on HD MWF with frequent admissions due to noncompliance with dialysis, mood disorder, stage I COPD, insulin-dependent diabetes, hypothyroid, HLD, chronic anemia, GERD and hypertension with recent cardiac arrest (03/07/25) due to hypoxia, who presented to the ED due to shortness of breath and orthopnea. He reports compliance with dialysis, last went Thursday. On arrival he complained of chest pain, however, he now states that he was never having chest pain, just his chronic back pain. He denies any sore throat, fever, chills, nausea, vomiting, nasal congestion or rhinorrhea. He denies a cough, abdominal pain or urinary symptoms. He reports small amounts of urination daily, no urination since taking the IV Lasix. Chest x-ray was negative for pulmonary edema, BNP is at baseline, 4346. He was given 40 mg IV Lasix in the ED without any urine output. Labs with hypochloremia and creatinine more elevated than baseline at 7.78. No leukocytosis or sign of infection. Chronic anemia stable. Patient to be admitted for mild acute CHF exacerbation and need for dialysis. He was admitted to the hospitalist service with Nephrology consultation and underwent hemodialysis on 05/29/25 with normalization of respiratory and volume status. He was discharged home and will continue hemodialysis per his home schedule. Time Attestation Discharge Coordination Time (in mins): 35 Quality: Safe Use of Opioids Does Pt have an Active Cancer Diagnosis on the Problem List?: No Quality: Stroke Does the patient have a stroke diagnosis?: No Physical Exam Vital Signs: Vital Signs: Last Vital Signs Temp 98.7 F 05/29/25 01:14 Pulse 65 05/29/25 12:43 Resp 16 05/29/25 12:43 BP 157/76 H 05/29/25 12:43 Pulse Ox 99 05/29/25 07:43 O2 Del Method Nasal Cannula 05/29/25 07:43 O2 Flow Rate 3 05/29/25 07:43 BMI result Body Mass Index 24.2 Gen: in no acute distress HEENT: sclera anicteric, moist mucus membranes Neck: supple Lungs: clear to auscultation bilaterally Heart: regular rate and rhythm, no murmurs Abd: soft, non-tender, non-distended Ext: no edema, LUE fistula with palpable thrill Skin: warm/well-perfused Neuro: alert and oriented x3, no focal findings Psych: appropriate affect DS: Data Data Completed and Pending Completed studies during hospitalization [Text1]: Laboratory Results WBC 9.6 X10*3/uL (4.8-10.8) 05/28/25 20:02 RBC 3.44 X10*6/uL (4.60-5.80) L 05/28/25 20:02 Hgb 10.7 g/dl (14.0-18.0) L 05/28/25 20:02 Hct 31.1 % (42.0-52.0) L 05/28/25 20:02 MCV 90.4 fL (80.0-98.0) 05/28/25 20:02 MCH 31.1 pg (27.0-33.0) 05/28/25 20:02 MCHC 34.4 g/dl (31.0-36.0) 05/28/25 20: RDW 15.3 % (11.0-16.0) 05/28/25 20:02 Plt Count 206 X10*3/uL (160-400) 05/28/25 20:02 MPV 9.9 fL (9.4-12.4) 05/28/25 20:02 Immature Gran % (Auto) 0.3 % (0.0-0.4) 05/28/25 20:02 Neut % (Auto) 65.8 % (45-73) 05/28/25 20:02 Lymph % (Auto) 14.7 % (20-40) L 05/28/25 20:02 [place] % (Auto) 8.2 % (2-11) 05/28/25 20:02 Eos % (Auto) 10.1 % (0-4) H 05/28/25 20:02 Baso % (Auto) 0.9 % (0-2) 05/28/25 20:02 Lymph # (Auto) 1.4 X10*3/uL (1.2-4.9) 05/28/25 20:02 [place] # (Auto) 0.8 X10*3/uL (0.1-1.2) 05/28/25 20:02 Eos # (Auto) 1.0 X10*3/uL (0.0-0.4) H 05/28/25 20:02 Baso # (Auto) 0.1 X10*3/uL (0.0-0.2) 05/28/25 20:02 Abs Immat Gran (auto) 0.03 X10*3/uL (0.00-0.03) 05/28/25 20:02 Absolute Neuts (auto) 6.3 x10*3/uL (2.0-8.3) 05/28/25 20:02 Absolute Nucleated RBC 0.000 X10*3/uL (0.0-0.012) 05/28/25 20: Nucleated RBC % (auto) 0.0 /100WBC (0.0-0.2) 05/28/25 20:02 VBG pH 7.52 (7.32-7.43) H 05/28/25 20:10 VBG pCO2 35 mmHg 05/28/25 20:10 VBG pO2 58 mmHg 05/28/25 20:10 VBG HCO3 29 mmol/L (22-26) H 05/28/25 20:10 VBG O2 Saturation 89.0 % 05/28/25 20:10 VBG Base Excess 6.5 mmol/L 05/28/25 20:10 Sodium 136 mmol/L (135-145) 05/29/25 04:19 Potassium 5.0 mmol/L (3.3-5.1) 05/29/25 04:19 Chloride 95 mmol/L (96-108) L 05/29/25 04:19 Carbon Dioxide 24 mmol/L (22-29) 05/29/25 04:19 Anion Gap 22 (12-20) H 05/29/25 04:19 BUN 59 mg/dL (9-16) H 05/29/25 04:19 Creatinine 8.03 mg/dL (0.5-1.4) H* 05/29/25 04:19 Estim Creat Clear Calc 7.6 05/29/25 04:19 Estimated GFR 7 05/29/25 04:19 POC Glucose 138 mg/dL (60-115) H 05/29/25 12:13 Random Glucose 94 mg/dL (60-115) 05/29/25 04:19 Calcium 8.6 mg/dL (8.4-10.2) 05/29/25 04:19 Magnesium 1.9 mg/dL (1.6-2.6) 05/28/25 20:02 Total Bilirubin 0.9 mg/dL (0.0-1.0) 05/28/25 20:02 AST 26 U/L (5-37) 05/28/25 20:02 ALT 14 U/L (0-40) 05/28/25 20:02 Alkaline Phosphatase 93 U/L (39-117) 05/28/25 20:02 Troponin I High Sens 11.6 ng/L (<3.5-35.0) D 05/28/25 20:02 B-Natriuretic Peptide 4346 pg/mL (<100) H 05/28/25 20:02 Total Protein 7.3 g/dL (6.5-8.0) 05/28/25 20:02 Albumin 4.5 g/dL (3.5-5.0) 05/28/25 20:02 Influenza Type A (PCR) NEGATIVE (Negative) 05/28/25 20:02 Influenza Type B (PCR) NEGATIVE (Negative) 05/28/25 20:02 RSV RNA Qual (PCR) NEGATIVE (Negative) 05/28/25 20:02 SARS-CoV-2 RNA (RT-PCR) NEGATIVE (Negative) 05/28/25 20:02 Discharge Plan Discharge Anticipated Discharge Date/Time: 05/29/25 12:45 Patient Disposition: Home, Self-Care Discharge Diagnosis: volume overload ESRD on HD MWF Referrals: Matias Tan MD [Primary Care Provider, Internal Medicine] - 1 Week Discharge Medications: Continued levothyroxine 137 mcg tablet 137 mcg PO DAILY@0600 atenolol 100 mg tablet 1 tab PO DAILY (DME) FreeStyle Lite Strips Strip MISCELLANEOUS TID (DME) pen needle, diabetic [BD Ultra-Fine Short Pen Needle] 31 gauge x 5/16 needle subcut DAILY Lokelma 10 gram Powder In Packet 10 g PO SUTUTHSA@0900 Rx Instructions: on non dialysis days hydromorphone 4 mg tablet 4 mg PO Q3H PRN (Reason: Pain) Qty: 10 0RF Rx Instructions: Partial Fill upon patient request. atorvastatin 40 mg tablet 40 mg PO BEDTIME insulin lispro [Humalog KwikPen Insulin] 100 unit/mL insulin pen See Protocol subcut TIDAC PRN (Reason: Blood Glucose) Protocol: Insulin Correction Scale Less than or equal to 110 ---- Give (units): 0 111 to 150 Give (units): 0 151 to 200 Give (units): 2 201 to 250 Give (units): 4 251 to 300 Give (units): 6 301 to 350 Give (units): 8 Greater than 350 Give (units): 10 Call MD if Blood Glucose > : 350 Rx Instructions: Pt does not take at home, something placed on last Admit, new orders not given at home dextroamphetamine-amphetamine [Adderall] 20 mg tablet 20 mg PO DAILY PRN (Reason: Mood) midodrine 10 mg Tablet 10 mg PO MOWEFR@1645 PRN (Reason: Dialysis Hypotension) Qty: 0 0RF amlodipine 5 mg tablet 5 mg PO BID alprazolam 0.5 mg tablet 0.5 - 1 mg PO DAILY PRN (Reason: anxiety attack) alprazolam 2 mg tablet 2 mg PO BID losartan 100 mg tablet 100 mg PO DAILY hydralazine 25 mg Tablet 25 mg PO TID Qty: 270 0RF Protocol: Hold for SBP< HOLD for SBP < : 90 Discharge Orders: Discharge Order (Routine); Ordered 05/29/25 Ordered By: Roni Correa Diet: Diabetic diet Activity on Discharge: As tolerated Stand Alone Forms: Patient Portal Discharge page Print Language: Amharic Care Plan Goals: normal volume status Health Concerns: volume overload ESRD on HD MWF Plan of Treatment: continue dialysis MWF Low-sodium diet: less than 2000 mg of sodium daily. Weigh yourself daily and call your doctor if your weight goes up by more than 3 lb/day or 5 lb/week. Please follow up with your primary care doctor within 1 week. Return to the hospital if you experience recurrent or worsening symptoms. Assessment: See Discharge Summary.
--- NOTE | 2025-05-29 12:48 | P.CONNP_ITS ---
History of Present Illness Reason for Consult Consult date: 05/29/25 Chief Complaint Chief complaint: dyspnea History of Present Illness Narrative: Patient is a 70 y/o male with a medical history of ESRD on HD (M,W,F at 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 Nephrology consulted for management of dialysis. patient denies shortness of breath, chest pain- reports breathing feels better now. patient denies new pain (reports chronic pain syndrome ongoing). reports widespread pruritus, states this is chronic and not new. denies new tremors, nausea, vomiting, muscle cramping. Reports he voids every few days. Review of Systems Constitutional: Reports fatigue Cardiovascular: Denies chest pain, Denies leg edema, Denies lightheadedness and Denies dyspnea Respiratory: Denies dyspnea Gastrointestinal: Denies abdominal pain, Denies diarrhea, Denies nausea and Denies vomiting Genitourinary: Denies hematuria, Denies oliguria, Denies dysuria and Denies flank pain Musculoskeletal: Reports arthralgias (reports chronic. ) Skin/Breast: Denies rash Denies tremor(s) Endocrine: Reports fatigue PMFSH Past Medical History Medical History ESRD needing dialysis Hypothyroidism Influenza A CHF (congestive heart failure) Acute anemia Multifactorial gait disorder Pneumonia End stage renal disease on dialysis Occult blood positive stool Anemia Internal jugular vein thrombosis Abnormality of gait ESRD needing dialysis Secondary hyperparathyroidism (of renal origin) Anemia in chronic kidney disease DONIS (acute kidney injury) Diabetes Kidney failure HTN (hypertension) Social History Social History Household Members: Spouse Housing: Unknown / Unable to assess Are you a primary manager respiratory care to a significant other at home: No Do you presently have visiting nurse or other home services: No Alcohol intake: former Comment: sitter in place Patient Tobacco Use Status: Never used Tobacco Cigarette Packs Per Day: 0 Cigarettes Per Day: 0 Years Smoked: NA Smoked in Last 30 Days: No e-Cigarette/Vaping Use: Never Used Second Hand Smoke Exposure: No Use of substances other than those prescribed or required for medical reasons: No Advance Directives: Yes Advance Directives on File: Yes Advance Directives Date on File: 09/07/23 Do you have a plan to hurt others: No Plan service: No Meds Allergies Allergy/AdvReac Type Severity Reaction Status Date / Time Penicillins (PENICILLINS) Allergy Unknown RASH Verified 05/28/25 19:48 tramadol (From ULTRAM) Allergy Unknown RASH Verified 05/28/25 19:48 trazodone (TRAZODONE) Allergy Unknown PRIAPISM Verified 05/28/25 19:48 risperidone (RISPERIDONE) AdvReac Severe dizzy, EPS Verified 05/28/25 19:48 Active Medications: Current Medications Acetaminophen (Acetaminophen 325 Mg Tablet) 650 mg PO Q6H PRN PRN Reason: Pain, Mild 1-3,fever,headache Alprazolam (Alprazolam 0.5 Mg Tablet) 2 mg PO BID [facility] Last Admin: 05/29/25 07:53 Dose: 2 mg Alprazolam (Alprazolam 0.5 Mg Tablet) 0.5 mg PO DAILY PRN PRN Reason: anxiety Amlodipine Besylate (Amlodipine Besylate 5 Mg Tablet) 5 mg PO BID [facility]; Protocol Last Admin: 05/29/25 11:23 Dose: 5 mg Atenolol (Atenolol 100 Mg Tablet) 100 mg PO DAILY [facility]; Protocol Last Admin: 05/29/25 12:43 Dose: 100 mg Atorvastatin Calcium (Atorvastatin Calcium 40 Mg Tablet) 40 mg PO BEDTIME [facility] Calcium Carbonate (Calcium Carbonate 750 Mg Tab.Chew) 750 mg PO Q4H PRN PRN Reason: Heartburn Dextrose (Dextrose 50 % 25 Gm/50 Ml Syringe) 25 gm IVPUSH Q15M PRN; Protocol PRN Reason: per Hypoglycemia Standing Ord. Diphenhydramine HCl (Diphenhydramine Hcl 25 Mg Capsule) 25 mg PO Q4H PRN PRN Reason: itching/rash Last Admin: 05/29/25 09:56 Dose: 25 mg Glucose (Glucose Gel 15 Gm Gel..Gram.) 15 gm PO Q15M PRN; Protocol PRN Reason: per Hypoglycemia Standing Ord. Heparin Sodium (Porcine) (Heparin Sodium,Porcine 5,000 Unit/Ml Vial) 5,000 unit SUBCUT Q12H [facility] Last Admin: 05/29/25 07:55 Dose: 5,000 unit Hydralazine HCl (Hydralazine Hcl 25 Mg Tablet) 25 mg PO TID [facility]; Protocol Last Admin: 05/29/25 11:23 Dose: 25 mg Hydromorphone HCl (Hydromorphone Hcl 2 Mg Tablet) 4 mg PO Q3H PRN PRN Reason: Pain, Severe (Pain Scale 7-10) Last Admin: 05/29/25 07:47 Dose: 4 mg Insulin Human Lispro (Insulin Lispro 100 Unit/Ml 3 Ml Vial) 0 unit SUBCUT QIDACHS [facility]; Protocol Last Admin: 05/29/25 12:19 Dose: Not Given Levothyroxine Sodium 112 mcg/ (Levothyroxine Sodium 25 mcg) 137 mcg PO DAILY@0600 [facility] Last Admin: 05/29/25 06:07 Dose: 137 mcg Losartan Potassium (Losartan Potassium 50 Mg Tablet) 100 mg PO DAILY [facility]; Protocol Last Admin: 05/29/25 11:23 Dose: 100 mg Magnesium Hydroxide (Milk Of Magnesia 30 Ml Oral.Susp) 30 ml PO DAILY PRN PRN Reason: Constipation Melatonin (Melatonin 3 Mg Tablet) 6 mg PO BEDTIME PRN PRN Reason: Insomnia Midodrine (Midodrine Hcl 10 Mg Tablet) 10 mg PO MOWEFR@1645 PRN PRN Reason: Dialysis hypotension Sodium Chloride (0.9 % Sodium Chloride Flush 3 Ml Syringe) [facility] Last Admin: 05/29/25 07:48 Dose: 3 ml Sodium Zirconium Cyclosilicate (Sodium Zirconium Cyclosilicate 10 Gm Powd.Pack) 10 gm PO SUTUTHSA@0900 [facility] Home Medications ?Medication ?Instructions ?Recorded ?Confirmed ?Last Taken ?Type atenolol 100 mg tablet 1 tab PO DAILY 07/11/2105/1905/28/25 History blood sugar diagnostic (FreeStyle 07/11/21 10/30/24 0 10/30/24 09:00 History Lite Strips) levothyroxine 137 mcg tablet 137 mcg PO DAILY@0600 05/29/25 05/28/25 History pen needle, diabetic 31 gauge x 07/11/21 10/30/2410/12 09:00 History 5/16 (BD Ultra-Fine Short Pen Needle) atorvastatin 40 mg tablet 40 mg PO BEDTIME 02/22/2405/27/25 History sodium zirconium cyclosilicate 10 10 g PO SUTUTHSA@090 0 06/19/24 05/29/25 05/28/25 History gram oral powder packet (Lokelma) insulin lispro 100 unit/mL See Protocol subcut TIDAC P RN 10/30/24 05/29/25 04/06/25 History subcutaneous pen (Humalog KwikPen Blood Glucose (U-100) Insulin) dextroamphetamine-amphetamine 20 20 mg PO DAILY PRN Mo od 02/24/25 05/29/25 04/06/25 History mg tablet (Adderall) alprazolam 0.5 mg tablet 0.5 - 1 mg PO DAILY PRN anxi ety 04/07/25 05/29/25 05/28/25 History attack alprazolam 2 mg tablet 2 mg PO BID 04/07/25 5 05/28/25 History amlodipine 5 mg tablet 5 mg PO BID 04/07/25 5 05/28/25 History losartan 100 mg tablet 100 mg PO DAILY 04/07/2509/1205/28/25 History Physical Exam Vital Signs: Last Vital Signs Temp 98.7 F 05/29/25 01:14 Pulse 65 05/29/25 12:43 Resp 16 05/29/25 12:43 BP 157/76 H 05/29/25 12:43 Pulse Ox 99 05/29/25 07:43 O2 Del Method Nasal Cannula 05/29/25 07:43 O2 Flow Rate 3 05/29/25 07:43 BMI result Body Mass Index 24.2 Const General: alert and awake Resp Effort & Inspection: normal respiratory effort and able to speak in complete sentences Auscultation: clear to auscultation bilaterally Cardio Rate: regular rate Rhythm: regular rhythm Heart sounds: S1 normal heart sound present and S2 normal heart sound present GI Palpation (GI): Soft to palpation and nontender Skin Rashes: no rashes Extrem General: No edema and No pedal edema Results Lab Results 05/28/25 20:02 05/29/25 04:19 Lab results: Chemistry 05/28/25 05/29/25 20:02 04:19 Sodium 136 136 Potassium 5.1 D 5.0 Carbon Dioxide 25 24 BUN 57 H 59 H Creatinine 7.78 H* 8.03 H* Calcium 9.1 8.6 Hematology 05/28/25 20:02 WBC 9.6 Hgb 10.7 L Plt Count 206 Assessment and Plan (1) ESRD needing dialysis: Status: Inactive Plan ESRD on HD, HD today per outpatient MWF schedule access: LUE AV fistula appears euvolemic continue sevelamer, low phos diet H&H dropped to 10.7 & 31.1, no indication for procrit at this time low potassium, phosphorous, and sodium diet fluid restriction 1.5L patient is ok for discharge from a renal standpoint post HD today- he should continue with his regular outpatient HD schedule upon discharge. Discussed with Dr Quinn. Procedures Date of Service Date of Service: 05/29/25
--- NOTE | 2025-05-29 13:18 | MHC.CM.PN ---
IMM 05/29/25, Pt. lives with his , he is active with [facility], and goes to HD at [facility] in [facility]. PCP confirmed: Dr. Tan. Family to transport home at DC, DCP: home, resume services. CM to follow for DC needs.
[2025-05-29] MEDS: Amphetamine Mixed Salts 20 MG TABLET PO (14:44)
== END 2025-05-29 18:34 | disposition home health service (06) | DRG 640 ==
LOC: HO.ED 05-29 01:19 → HO.EDOVER 05-29 01:21 → HO.IMC 05-29 14:25
PROVIDERS: Physician Assistant Medical; Admitting Provider Student in an Organized Health Care Education/Training Program; Emergency Provider Emergency Medicine; PCP Family Medicine; Visit Provider Family Medicine
DX: E87.70 Fluid overload, unspecified (principal); I50.33 Acute on chronic diastolic (congestive) heart failure; N18.6 End stage renal disease; I13.2 Hypertensive heart and chronic kidney disease with heart failure and with stage 5 chronic kidney disease, or end stage renal disease; E11.22 Type 2 diabetes mellitus with diabetic chronic kidney disease; D63.1 Anemia in chronic kidney disease; J44.9 Chronic obstructive pulmonary disease, unspecified; F39 Unspecified mood [affective] disorder; E78.5 Hyperlipidemia, unspecified; E03.9 Hypothyroidism, unspecified; Z91.158 Patient's noncompliance with renal dialysis for other reason; Z86.74 Personal history of sudden cardiac arrest; Z79.4 Long term (current) use of insulin; Z79.890 Hormone replacement therapy; Z79.899 Other long term (current) drug therapy
CPT/HCPCS: 36415; 71045; 80048; 80053; 82803; 82947; 83735; 83880; 84484; 85025; 87637; 90999; 93005; 99285; J1644; J1939

== ENCOUNTER → 2025-05-28 19:47 | Outpatient (BNV) | payer MEDICARE, SELFPAY | PROVIDERS: PCP Family Medicine; Visit Provider Radiology Diagnostic Radiology | DX: R06.02 Shortness of breath (principal) | CPT/HCPCS: 71045 ==

== ENCOUNTER → 2025-05-28 19:48 | Outpatient (BNV) | payer MEDICARE, SELFPAY | PROVIDERS: Admitting Provider Student in an Organized Health Care Education/Training Program; Emergency Provider Emergency Medicine; PCP Family Medicine; Visit Provider Internal Medicine Cardiovascular Disease | DX: R94.31 Abnormal electrocardiogram [ECG] [EKG] (principal); R06.02 Shortness of breath | CPT/HCPCS: 93010 ==

== ENCOUNTER → 2025-05-29 01:13 | Outpatient (BNV) | payer MEDICARE, SELFPAY | PROVIDERS: Admitting Provider Student in an Organized Health Care Education/Training Program; Emergency Provider Emergency Medicine; PCP Family Medicine; Visit Provider Physician Assistant | DX: J96.01 Acute respiratory failure with hypoxia (principal); I50.9 Heart failure, unspecified; N18.6 End stage renal disease; Z99.2 Dependence on renal dialysis; I50.33 Acute on chronic diastolic (congestive) heart failure | CPT/HCPCS: 99223; 99499 ==

== ENCOUNTER → 2025-05-29 01:13 | Outpatient (BNV) | payer MEDICARE, SELFPAY | PROVIDERS: Admitting Provider Student in an Organized Health Care Education/Training Program; Emergency Provider Emergency Medicine; PCP Family Medicine; Visit Provider Nurse Practitioner Family | DX: N18.6 End stage renal disease (principal); Z99.2 Dependence on renal dialysis | CPT/HCPCS: 99222 ==

== ENCOUNTER 2025-07-02 17:57 | Inpatient (IN) | payer MEDICARE, SELFPAY ==
--- OUTSIDE RECORDS SUMMARY | 2010-09-24 01:00 | XMS_ITS | Encounter Summary ---
Author Organization [facility] Address [address] [place] [id number] Phone Care Team Providers Care Genetics Nurse Name Role Phone Unavailable Primary Care Provider Unavailabl e Encounter Details Date Type Department Care Team (Late st Contact Info) Description 09/24/2010 Hospital Encounter [facility],Outside Imaging [address] [place] [address] System, Provider Not In, PhD [address] [address] Social History Tobacco Use Types Packs/Day Years Used Date Smoking Tobacco: Never Smokeless Tobacco: Never Education Answer Date Recorded Are you interested in more education? Not on jeremías e 02/13/2023 Are you concerned about learning? Not on file 02/13/2023 No 02/13/2023 No 02/13/2023 Digital Access Answer Date Recorded No 03/15/2023 No 03/15/2023 No 03/15/2023 Reliable internet access at home? Not on file 03/15/2023 Device with a working camera? Not on file Sex and Gender Information Value Date Recorded Sex Assigned at Male 06/27/2021 11:54 AM EDT Legal Sex Male 3:55 PM EDT Gender Identity Male 06/27/2021 11:54 AM EDT Sexual Orientation Straight 10/25/2021 4: 26 PM EST documented as of this encounter Plan of Treatment Not on file documented as of this encounter Procedures Procedure Name Priority Date/Time Associated Diagnosis Comments MRI SPINE MUSCULOSKELETAL FOCUS OUTSIDE (NO INTERPRETATION) Routine 09/24/2010 12:00 AM EST documented in this encounter Results * MRI Spine (Bone) Outside (No Interpretation) (09/24/2010 12:00 AM EST) Narrative SYSTEMGENERATED, DOCUMENTATION - 01/28/2022 2:35 PM EDT This study is for PACS storage only and not for interpretation. us Provider Not In System PhD IMG OUTSIDE IMAGING W /OUT INTERPRETATION Final Result documented in this encounter Visit Diagnoses Not on filedocumented in this encounter Additional Source Comments The information contained in this document represents components of the legal health record. It is not the complete legal health record.[facility]
--- OUTSIDE RECORDS SUMMARY | 2011-03-28 14:00 | XMS_ITS | Continuity of Care Document ---
Author Organization [facility] cine Address [address] [place] [phone] Phone Care Team Providers Care Can Sterilizer Name Role Phone No Information Unavailable Unavailable Advance Directives Directive Yes / No Effective Date File Name No Information Encounters Encounter Description Practice Location Reason(s) For Visit Diagnoses Date Provider [facility] [place], [address] [place] [address], [place], [place], [id number], tel:[phone] [facility] [place] No Information 0201 1 No Information [facility] [place], [address] [place] [address], [id number], tel:[phone] [facility] [place] Migraine, unspecified without mention of intractable migraineIron deficiency anemia, unspecifiedDiabetes mellitus without mention of complicationUnspecified acquired hypothyroidismUnspecified arthropathyBenign essential hypertension Sep-2 3200 9 Silk Shahab. [address] [place] [address], [place], [place], [id number], . tel:[phone] Family History Family Member Type Diagnosis Age At Onset No Information Payers Payer name Insurance type Covered green party ID Authoriza tion(s) No Information Social History Type Description Quantity Date Captured Comments Sex Male Smoking Status No Information Chief Complaint And Reason For Visit No Information History Of Present Illness Encounter Date Complaint History Of Prese nt Illness No Information Instructions Date Instruction Additional Infor mation No Information Assessments Type Assessment Date No Information
--- NOTE | ~2025-07-02 | CT_ITS ---
CLINICAL HISTORY: SOB; Hypoxia; Elevated D-Dimer --- Additional Notes or Special Instructions: Patient on Dialysis, will receive dialysis tomorrow CT angiography chest with contrast. 3D Postprocessing. Comparison: CT/SR - CT CHEST WO IV CON - 03/07/25 22:04 EDT Findings: There is no pulmonary embolism. There is mild cardiomegaly. There is no pericardial effusion. There is severe coronary artery calcification. Thoracic aorta is upper limits of normal in diameter. There are mildly enlarged subcarinal lymph nodes and a few additional borderline enlarged mediastinal lymph nodes similar to the prior CT likely reactive. There is bilateral gynecomastia. There are small bilateral pleural effusions. There is mild compressive atelectasis. There is bilateral interlobular septal line thickening greatest in the lower lungs and consistent with interstitial edema. Trachea and central bronchi are widely patent. There is a healed or nearly healed mid sternal fracture. There is no acute fracture or suspicious lytic or sclerotic lesion. Limited images of the upper abdomen demonstrate no acute findings. There are partially visualized mildly atrophic kidneys. IMPRESSION: 1. No pulmonary embolism. 2. Bilateral interlobular septal line thickening consistent with interstitial edema. 3. Small bilateral pleural effusions. 4. Chronic findings as above. This document has been electronically signed by: Devante Ramos MD on 07/03/2025 03:18:32
--- NOTE | ~2025-07-02 | XR_ITS ---
CLINICAL HISTORY: SOB 1 view chest x-ray Comparison: CR - XR CHEST 1V - 05/28/25 20:19 EDT Findings: The lungs are clear. Heart size is normal. No acute fracture. IMPRESSION: 1. No acute findings. This document has been electronically signed by: Gennaro Francois MD on 07/02/2025 18:31:55
--- NOTE | 2025-07-02 18:00 | ED.GENADULT ---
HPI - General Adult General Chief complaint: Dyspnea Stated complaint: end stage renal can't breathe Time Seen by Provider: 07/02/25 20:18 Source: patient Mode of arrival: ambulatory Limitations: no limitations History of Present Illness ED Provider: Kiran TRONCOSO HPI narrative: The patient is a 70-year-old male with a history of CHF, Diabetes, and ESRD with dialysis Thursday and Thursday, presenting to the ED for evaluation of shortness of breath which began today. Patient last received dialysis on Thursday, reports he was at home at rest when he developed shortness of breath. Patient denies associated chest pain, pleurisy, abdominal pain, diaphoresis, nausea, vomiting. The patient denies any recent sick contacts or recent trauma. The patient was last admitted on 05/28/2025 for a similar presentation. Related Data Home Medications ?Medication ?Instructions ?Recorded ?Confirmed blood sugar diagnostic (FreeStyle 07/11/21 10/30/24 Lite Strips) levothyroxine 137 mcg tablet 137 mcg PO DAILY@0600 07/11/21 07/03/25 pen needle, diabetic 31 gauge x 07/11/21 10/30/24 5/16 (BD Ultra-Fine Short Pen Needle) atorvastatin 40 mg tablet 40 mg PO BEDTIME 02/22/24 07/03/25 alprazolam 0.5 mg tablet 0.5 - 1 mg PO DAILY PRN anxiety 04/07/25 07/03/25 attack alprazolam 2 mg tablet 2 mg PO BID 04/07/25 07/03/25 amlodipine 5 mg tablet 5 mg PO BID 04/07/25 07/03/25 losartan 100 mg tablet 100 mg PO DAILY 04/07/25 07/03/25 hydralazine 50 mg tablet 50 mg PO TID 07/03/25 07/03/25 metoprolol succinate 100 mg 100 mg PO DAILY 07/03/25 07/03/25 tablet,extended release 24 hr sevelamer carbonate 800 mg tablet 1,600 mg PO TID 07/03/25 07/03/25 Previous Rx's ?Medication ?Instructions ?Recorded hydromorphone 4 mg tablet 4 mg PO Q3H PRN Pain #10 tabs 03/10/25 Allergies Allergy/AdvReac Type Severity Reaction Status Date / Time Penicillins (PENICILLINS) Allergy Unknown RASH Verified 07/02/25 18:02 tramadol (From ULTRAM) Allergy Unknown RASH Verified 07/02/25 18:02 trazodone (TRAZODONE) Allergy Unknown PRIAPISM Verified 07/02/25 18:02 risperidone (RISPERIDONE) AdvReac Severe dizzy, EPS Verified 07/02/25 18:02 Review of Systems Review of Systems: Yes all other systems are reviewed and are negative [facility] Past Medical History Medical History ESRD needing dialysis Hypothyroidism Influenza A CHF (congestive heart failure) Acute anemia Multifactorial gait disorder Pneumonia End stage renal disease on dialysis Occult blood positive stool Anemia Internal jugular vein thrombosis Abnormality of gait ESRD needing dialysis Secondary hyperparathyroidism (of renal origin) Anemia in chronic kidney disease DONIS (acute kidney injury) Diabetes Kidney failure HTN (hypertension) Social History Social History Household Members: Significant Other Housing: House Are you a primary healthcare translator to a significant other at home: No Do you presently have visiting nurse or other home services: No Alcohol intake: former Comment: sitter in place Patient Tobacco Use Status: Never used Tobacco Cigarette Packs Per Day: 0 Cigarettes Per Day: 0 Years Smoked: NA e-Cigarette/Vaping Use: Never Used Second Hand Smoke Exposure: No Advance Directives Date on File: 09/07/23 service: No Physical Exam ED Vital Signs: Vital Signs - 24 hr 07/02/25 18:01 07/02/25 20:35 07/02/25 21:50 Temperature 96.9 F Pulse Rate 75 76 Respiratory Rate 18 20 Blood Pressure 179/82 H 166/84 H Pulse Oximetry 97 92 85 L Oxygen Delivery Method Room Air Room Air Room Air Oxygen Flow Rate 07/02/25 22:03 07/03/25 00:06 07/03/25 00:07 Temperature 98.5 F 98.9 F Pulse Rate 74 79 Respiratory Rate 20 18 Blood Pressure 174/87 H 157/75 H 157/75 H Pulse Oximetry 92 93 Oxygen Delivery Method Nasal Cannula Nasal Cannula Oxygen Flow Rate 3 07/03/25 02:21 Temperature Pulse Rate 78 Respiratory Rate 21 H Blood Pressure 176/87 H Pulse Oximetry 92 Oxygen Delivery Method Nasal Cannula Oxygen Flow Rate 3 BMI result Body Mass Index 24.2 CONSTITUTIONAL: The patient appears chronically ill but otherwise non-toxic, well nourished and in no acute distress. Vital signs as documented. HEAD: Atraumatic, normocephalic. EYES: EOMs grossly intact, pupils equal, conjunctiva clear, no exudate. ENT: Nares patent, no discharge. Airway patent, no audible stridor, visible mucosa is pink and moist without noted lesions. NECK: Trachea is midline, no obvious masses or gross abnormalities. CHEST: Symmetric movement, normal appearance. LUNGS: LS present and CTAB, no w/r/r. Non-labored work of breathing. CARDIAC: Regular Rhythm, S1/S2 appreciated, no murmurs, rubs or gallops. ABDOMEN: Abdomen soft and non-tender x4 quadrants, no palpable masses or organomegaly. : Deferred. EXTREMITIES: Normal tone, moves all extremities spontaneously without reported pain. No obvious acute injury or deformity noted. No pedal edema. NEURO: Alert and oriented x3, CN II-XII appear grossly intact. Cerebellar Functioning grossly intact. No obvious sensory or motor deficits. Speech clear and appropriate. PSYCH: normal affect, appropriate eye contact, fluid speech, with appropriate response to questioning. No reported suicidality or homicidality. SKIN: Warm, dry, color appropriate, normal turgor. No rashes noted. Course Course Course Narrative: Rapid medical examination performed in triage by Marifer Johnson PA-C. Patient is a 70 year old assigned male at presenting to the emergency department with increased shortness of breath in ESRD. Detailed physical exam and review of systems are deferred to the industrial technician. EKG, labs, imaging and swabs ordered. Patient placed back in the waiting room pending room availability and results. Medications Administered Generic Name Dose Route Start Last Admin Trade Name Freq PRN Reason Stop Dose Admin Acetaminophen 650 mg 07/03/25 04:19 07/03/25 06:18 Acetaminophen 325 Mg Tablet PO 650 mg Q6H PRN Administration Pain, Mild 1-3,fever,headache Alprazolam 2 mg 07/03/25 09:00 07/03/25 22:09 Alprazolam 0.5 Mg Tablet PO 2 mg BID FRANCINE Administration Amlodipine Besylate 5 mg 07/03/25 09:00 07/03/25 21:24 Amlodipine Besylate 5 Mg Tablet PO 5 mg BID FRANCINE Administration Protocol Atorvastatin Calcium 40 mg 07/03/25 21:00 07/03/25 21:24 Atorvastatin Calcium 40 Mg Tablet PO 40 mg BEDTIME FRANCINE Administration Heparin Sodium (Porcine) 5,000 unit 07/03/25 09:00 07/03/25 21:20 Heparin Sodium,Porcine 5,000 Unit/Ml Vial SUBCUT 5,000 unit Q12H FRANCINE Administration Hydralazine HCl 50 mg 07/03/25 09:00 07/03/25 21:24 Hydralazine Hcl 50 Mg Tablet PO 50 mg TID FRANCINE Administration Protocol Hydromorphone HCl 4 mg 07/03/25 05:25 07/04/25 05:47 Hydromorphone Hcl 2 Mg Tablet PO 4 mg Q3H PRN Administration Pain, Severe (Pain Scale 7-10) Insulin Human Lispro 0 unit 07/03/25 07:30 07/04/25 07:28 Insulin Lispro 100 Unit/Ml 3 Ml Vial SUBCUT Not Given QIDACHS [facility] Protocol Levothyroxine Sodium 112 mcg 07/03/25 06:30 07/04/25 05:47 Levothyroxine Sodium 112 Mcg Tablet PO 112 mcg DAILY@0630 FRANCINE Administration Levothyroxine Sodium 25 mcg 07/03/25 06:30 07/04/25 05:47 Levothyroxine Sodium 25 Mcg Tablet PO 25 mcg DAILY@0630 FRANCINE Administration Losartan Potassium 100 mg 07/03/25 09:00 07/03/25 07:58 Losartan Potassium 50 Mg Tablet PO 100 mg DAILY FRANCINE Administration Protocol Senna 17.2 mg 07/03/25 21:00 07/03/25 21:24 Sennosides 8.6 Mg Tablet PO 17.2 mg BEDTIME FRANCINE Administration Sevelamer Carbonate 1,600 mg 07/03/25 08:00 07/03/25 21:13 Sevelamer Carbonate Tablet 800 Mg Tablet PO Not Given TIDWM [facility] Sodium Chloride 3 ml 07/03/25 08:00 07/03/25 21:25 0.9 % Sodium Chloride Flush 3 Ml Syringe IVFLUSH 3 ml QSHIFT [facility] Administration Discontinued Medications Generic Name Dose Route Start Last Admin Trade Name Freq PRN Reason Stop Dose Admin Furosemide 20 mg 07/02/25 23:05 07/03/25 00:06 Furosemide 20 Mg/2 Ml Vial IVPUSH 07/02/25 23:06 20 mg ONCE ONE Administration Protocol Hydralazine HCl 10 mg 07/03/25 05:09 07/03/25 06:18 Hydralazine Hcl 20 Mg/Ml Vial IVPUSH 07/03/25 05:10 10 mg ONCE ONE Administration Protocol Iohexol 65 ml 07/03/25 01:55 07/03/25 01:56 Iohexol 350 Mg/Ml 100 Ml Infus..Btl IV 07/03/25 01:56 65 ml ONCE ONE Administration Medical Decision Making Medical Decision Making MDM Narrative: 10:56 PM 07/02/2025 (Zara TRONCOSO): The patient is a 70-year-old male with a history of CHF, Diabetes, and ESRD with dialysis Thursday and Thursday, presenting to the ED for evaluation of shortness of breath which began today. Patient last received dialysis on Thursday, reports he was at home at rest when he developed shortness of breath. Patient denies associated chest pain, pleurisy, abdominal pain, diaphoresis, nausea, vomiting. The patient denies any recent sick contacts or recent trauma. The patient was last admitted on 05/28/2025 for a similar presentation. In the ED patient is chronically ill but otherwise nontoxic appearing. Laboratory evaluation shows no leukocytosis, there is mild anemia consistent with the patient's baseline secondary to chronic disease, does not meet threshold for transfusion. The patient's VBG shows pH 7.49 with HC03 of 27. Potassium is mildly elevated at 5.6, no T-wave changes on EKG. The patient's BUN and creatinine are consistent with his baseline. The patient's BNP is improved compared to previous visits at 2600. The patient is negative for COVID and influenza. Chest x-ray shows no focal consolidation. The patient initially was saturating well on room air, however while awaiting remainder of workup the patient's oxygenation dropped into the 80s, patient is now on 3 L nasal cannula and maintaining oxygen level of 92. Patient likely suffering from fluid overload requiring dialysis, patient is scheduled for dialysis tomorrow morning, however due to his increased oxygen requirement patient will require admission for FiO2 while awaiting inpatient dialysis. We will administer Lasix and obtain D-Dimer to rule out PE. Patient is [facility] 2:16 AM 07/03/2025 (Zara TRONCOSO): The patient's D-dimer was positive. Patient sent for CTA of the chest, results pending. Pending no evidence of PE, the patient will be admitted for shortness of breath with increased oxygen requirement and need for dialysis. Admission/Observation Consideration of admission/observation: Escalation of care including admission/observation considered Lab Data MDM Lab Attestation statement: I reviewed the patient's lab results. 07/03/25 05:04 07/03/25 05:04 Labs: Lab Results 07/02/25 07/02/25 07/02/25 Range/Units 18:22 18:23 18:26 WBC 10.1 (4.8-10.8) X10*3/uL RBC 3.55 L (4.60-5.80) X10*6/uL Hgb 11.1 L (14.0-18.0) g/dl Hct 32.9 L (42.0-52.0) % MCV 92.7 (80.0-98.0) fL MCH 31.3 (27.0-33.0) pg MCHC 33.7 (31.0-36.0) g/dl RDW 16.7 H (11.0-16.0) % Plt Count 191 (160-400) X10*3/uL MPV 9.6 (9.4-12.4) fL Immature Gran % (Auto) 0.4 (0.0-0.4) % Neut % (Auto) 72.4 (45-73) % Lymph % (Auto) 10.1 L (20-40) % [facility] % (Auto) 9.2 (2-11) % Eos % (Auto) 7.2 H (0-4) % Baso % (Auto) 0.7 (0-2) % Lymph # (Auto) 1.0 L (1.2-4.9) X10*3/uL [facility] # (Auto) 0.9 (0.1-1.2) X10*3/uL Eos # (Auto) 0.7 H (0.0-0.4) X10*3/uL Baso # (Auto) 0.1 (0.0-0.2) X10*3/uL Abs Immat Gran (auto) 0.04 H (0.00-0.03) X10*3/uL Absolute Neuts (auto) 7.3 (2.0-8.3) x10*3/uL Absolute Nucleated RBC 0.000 (0.0-0.012) X10*3/uL Nucleated RBC % (auto) 0.0 (0.0-0.2) /100WBC D-Dimer High Sensitivty NG/ML VBG pH 7.49 H (7.32-7.43) VBG pCO2 36 mmHg VBG pO2 85 mmHg VBG HCO3 27 H (22-26) mmol/L VBG O2 Saturation 97.0 % VBG Base Excess 4.4 mmol/L Sodium 136 (135-145) mmol/L Potassium 5.6 H (3.3-5.1) mmol/L Chloride 96 (96-108) mmol/L Carbon Dioxide 24 (22-29) mmol/L Anion Gap 22 H (12-20) BUN 53 H (9-16) mg/dL Creatinine 7.87 H* (0.5-1.4) mg/dL Estim Creat Clear Calc 7.7 Estimated GFR 7 Random Glucose 123 H (60-115) mg/dL Calcium 8.7 (8.4-10.2) mg/dL Magnesium 2.0 (1.6-2.6) mg/dL Total Bilirubin 0.7 (0.0-1.0) mg/dL AST 20 (5-37) U/L ALT 10 (0-40) U/L Alkaline Phosphatase 96 (39-117) U/L Troponin I High Sens (<3.5-35.0) ng/L B-Natriuretic Peptide (<100) pg/mL Total Protein 6.8 (6.5-8.0) g/dL Albumin 4.2 (3.5-5.0) g/dL COVID-19 (SUNITHA) Negative (Negative) COVID-19 Clin Com See Note Influenza Type A (SEBLE) Negative (Negative) Influenza Type B (SEBLE) Negative (Negative) Influenza A & B Note See Note 07/02/25 07/03/25 Range/Units 21:17 00:02 WBC (4.8-10.8) X10*3/uL RBC (4.60-5.80) X10*6/uL Hgb (14.0-18.0) g/dl Hct (42.0-52.0) % MCV (80.0-98.0) fL MCH (27.0-33.0) pg MCHC (31.0-36.0) g/dl RDW (11.0-16.0) % Plt Count (160-400) X10*3/uL MPV (9.4-12.4) fL Immature Gran % (Auto) (0.0-0.4) % Neut % (Auto) (45-73) % Lymph % (Auto) (20-40) % [facility] % (Auto) (2-11) % Eos % (Auto) (0-4) % Baso % (Auto) (0-2) % Lymph # (Auto) (1.2-4.9) X10*3/uL [facility] # (Auto) (0.1-1.2) X10*3/uL Eos # (Auto) (0.0-0.4) X10*3/uL Baso # (Auto) (0.0-0.2) X10*3/uL Abs Immat Gran (auto) (0.00-0.03) X10*3/uL Absolute Neuts (auto) (2.0-8.3) x10*3/uL Absolute Nucleated RBC (0.0-0.012) X10*3/uL Nucleated RBC % (auto) (0.0-0.2) /100WBC D-Dimer High Sensitivty 687 NG/ML VBG pH (7.32-7.43) VBG pCO2 mmHg VBG pO2 mmHg VBG HCO3 (22-26) mmol/L VBG O2 Saturation % VBG Base Excess mmol/L Sodium (135-145) mmol/L Potassium (3.3-5.1) mmol/L Chloride (96-108) mmol/L Carbon Dioxide (22-29) mmol/L Anion Gap (12-20) BUN (9-16) mg/dL Creatinine (0.5-1.4) mg/dL Estim Creat Clear Calc Estimated GFR Random Glucose (60-115) mg/dL Calcium (8.4-10.2) mg/dL Magnesium (1.6-2.6) mg/dL Total Bilirubin (0.0-1.0) mg/dL AST (5-37) U/L ALT (0-40) U/L Alkaline Phosphatase (39-117) U/L Troponin I High Sens 7.5 (<3.5-35.0) ng/L B-Natriuretic Peptide 2626 H (<100) pg/mL Total Protein (6.5-8.0) g/dL Albumin (3.5-5.0) g/dL COVID-19 (SUNITHA) (Negative) COVID-19 Clin Com Influenza Type A (SEBLE) (Negative) Influenza Type B (SEBLE) (Negative) Influenza A & B Note Independent Interpretation I performed an independent interpretation of an: EKG (EKG shows sinus rhythm with a rate of 76, no evidence of acute ischemia, no ST elevation, no ectopy. QTC 477. When compared to previous on 05/28/2025 lateral nonspecific T-wave abnormalities have resolved, no other significant morphology changes. ) Radiology Impression Discussion of test interpretation with radiology: I have reviewed the radiologist's reading. Radiologist Impression: CLINICAL HISTORY: SOB 1 view chest x-ray Comparison: CR - XR CHEST 1V - 05/28/25 20:19 EDT Findings: The lungs are clear. Heart size is normal. No acute fracture. IMPRESSION: 1. No acute findings. This document has been electronically signed by: Gennaro Francois MD on 07/02/2025 18:31:55 Discharge Plan Discharge Clinical Impression: Increasing shortness of breath, Oxygen desaturation, ESRD on dialysis, Acute on chronic heart failure with preserved ejection fraction (HFpEF) Patient Disposition: Admitted As Inpatient Interventions: Admission Worksheet (ED) Last Done: 07/03/25 15:34 Discharge Date/Time: 07/03/25 16:28
[2025-07-02 18:01] VITALS: BP 179/82; PULSE 75; RESP 18; TEMP 36.1; O2SAT 97; BMI 24.2
[2025-07-02 18:26] LABS: MANUAL DIFF FLAG NO
[2025-07-02 18:27] LABS: Hematocrit 32.9 % (42.0-52.0); Hemoglobin 11.1 g/dl (14.0-18.0); Imm Gran Abs Auto 0.04 X10*3/uL (0.00-0.03); Imm Gran Pct Auto 0.4 % (0.0-0.4); Lymphocytes Absolute Auto 1.0 X10*3/uL (1.2-4.9); Mean Corpuscular HGB Conc 33.7 g/dl (31.0-36.0); Mean Corpuscular Hemoglobin 31.3 pg (27.0-33.0); Mean Corpuscular Volume 92.7 fL (80.0-98.0); NRBC Abs Auto 0.000 X10*3/uL (0.0-0.012); NRBC Pct Auto 0.0 /100WBC (0.0-0.2); Platelet Count 191 X10*3/uL (160-400); Red Blood Count 3.55 X10*6/uL (4.60-5.80); White Blood Count 10.1 X10*3/uL (4.8-10.8)
[2025-07-02 18:29] LABS: Venous Blood Gas Refer to POC result
[2025-07-02 18:31] LABS: VBG HCO3 27 mmol/L (22-26); VBG O2 % Saturation 97.0 %
--- OUTSIDE RECORDS SUMMARY | 2025-07-02 18:32 | XMS_ITS | Encounter Summary ---
Author Organization [facility], Address [address] [place] [address] Phone Care Team Providers Care Autopsy Pathologist Name Role Phone Matias Tan MD Primary Care Provider +1- [phone] Encounter Details Date Type Department Care Team (Late st Contact Info) Description 01/10/2022 Documentation Only [facility], [address] [place] [address] [address] [place] [address] Social History Tobacco Use Types [...] Care Team (Late st Contact Info) Description 08/01/2025 11:00 AM EDT Procedure visit [facility] [address] [place] [phone] documented as of this encounter Visit Diagnoses Not on filedocumented in this encounter Care Teams Autopsy Pathologist Relationship Specialty Start Date End Date Matias Tan MD [address] [place] [address] PCP - General Family Medicine 10/24/19 documented as of this encounter
--- OUTSIDE RECORDS SUMMARY | 2025-07-02 18:32 | XMS_ITS | Encounter Summary ---
Author Organization [facility], Address [address] [place] [address] Phone Care Team Providers Care Serials Librarian Name Role Phone Matias Tan MD Primary Care Provider +1- [phone] Reason for Visit * Reason Comments Med Refill Encounter Details Date Type Department Care Team (Late st Contact Info) Description 07/17/2022 Refill [facility] - Vascular Access Center [address] [place] [address] Guanako Mercer MD [address] [place] [phone] Social History Tobacco Use Types Packs/Day Years [...] visit [facility] [address] [place] [address] documented as of this encounter Visit Diagnoses Not on filedocumented in this encounter Care Teams Serials Librarian Relationship Specialty Start Date End Date Matias Tan MD [address] [place] [address] PCP - General Family Medicine 10/24/19 documented as of this encounter
--- OUTSIDE RECORDS SUMMARY | 2025-07-02 18:32 | XMS_ITS | Encounter Summary ---
Author Organization [facility], Address [address] [place] [address] Phone Care Team Providers Care Field Consultant Name Role Phone Matias Tan MD Primary Care Provider +1- [phone] Reason for Visit * Reason Onset Date Comments Med Refill 09/24/2022 Encounter Details Date Type Department Care Team (Late st Contact Info) Description 09/24/2022 Refill [facility] - Vascular Access Center [address] [place] [address] Ferdinand Monroe MD [address] [address] Social History Tobacco Use Types Packs/Day Years [...] visit [facility] - [facility] [address] [place] [phone] documented as of this encounter Visit Diagnoses Not on filedocumented in this encounter Care Teams Field Consultant Relationship Specialty Start Date End Date Matias Tan MD [address] [facility] [place] [address] PCP - General Family Medicine 10/24/19 documented as of this encounter
--- OUTSIDE RECORDS SUMMARY | 2025-07-02 18:32 | XMS_ITS | Encounter Summary ---
Author Organization [facility], Address [address] [place] [address] Phone Care Team Providers Care Retail Warehouse Supervisor Name Role Phone Matias Tan MD Primary Care Provider +1- [phone] Reason for Visit * Reason Onset Date Comments Med Refill 06/20/2022 Encounter Details Date Type Department Care Team (Late st Contact Info) Description 06/20/2022 Refill [facility], [address] [place] [phone] Guanako Mercer MD [address] [facility] [place] [phone] Social History Tobacco Use Types Packs/Day Years [...] visit [facility] - [facility] [address] [place] [address] documented as of this encounter Visit Diagnoses Not on filedocumented in this encounter Care Teams Retail Warehouse Supervisor Relationship Specialty Start Date End Date Matias Tan MD [address] [facility] [place] [address] PCP - General Family Medicine 10/24/19 documented as of this encounter
--- OUTSIDE RECORDS SUMMARY | 2025-07-02 18:32 | XMS_ITS | Encounter Summary ---
Author Organization [facility] [place], Address [address] [place] [address] Phone Care Team Providers Care Mixing Roll Operator Name Role Phone Matias Tan MD Primary Care Provider +1- [phone] Reason for Visit * Reason Onset Date Comments Med Refill 06/24/2022 Encounter Details Date Type Department Care Team (Late st Contact Info) Description 06/24/2022 Refill [facility], [address] [place] [phone] Guanako Mercer MD [address] [facility] [address] [place] [phone] Social History Tobacco Use Types Packs/Day Years [...] [facility] - [facility] [address] [place] [phone] documented as of this encounter Visit Diagnoses Not on filedocumented in this encounter Care Teams Mixing Roll Operator Relationship Specialty Start Date End Date Matias Tan MD [address] [place] [address] PCP - General Family Medicine 10/24/19 documented as of this encounter
--- OUTSIDE RECORDS SUMMARY | 2025-07-02 18:32 | XMS_ITS | Encounter Summary ---
Author Organization [facility] Address [address] [place] [address] Phone Care Team Providers Care Wind Turbine Controls Engineer Name Role Phone Matias Tan MD Primary Care Provider +1- [phone] Reason for Visit * Reason Comments Med Refill Encounter Details Date Type Department Care Team (Late st Contact Info) Description 06/24/2022 Refill [facility], [address] [place] [phone] Guanako Mercer MD [address] [facility] [place] [phone] Social History Tobacco Use Types Packs/Day Years [...] visit [facility] [place] - [facility] Center [address] [place] [address] documented as of this encounter Visit Diagnoses Not on filedocumented in this encounter Care Teams Wind Turbine Controls Engineer Relationship Specialty Start Date End Date Matias Tan MD [address] [place] [address] PCP - General Family Medicine 10/24/19 documented as of this encounter
--- OUTSIDE RECORDS SUMMARY | 2025-07-02 18:32 | XMS_ITS | Encounter Summary ---
Author Organization [facility], Address [address] [place] [address] Phone Care Team Providers Care Geophysics Scientist Name Role Phone Matias Tan MD Primary Care Provider +1- [phone] Encounter Details Date Type Department Care Team (Late st Contact Info) Description 03/11/2023 Documentation Only [facility] [address] [place] [phone] Jose Luis Amezcua MD Social History Tobacco [...] visit [facility] V[facility] Access Center [address] [place] [address] documented as of this encounter Visit Diagnoses Not on filedocumented in this encounter Care Teams Geophysics Scientist Relationship Specialty Start Date End Date Matias Tan MD [address] [place] [address] PCP - General Family Medicine 10/24/19 documented as of this encounter
--- OUTSIDE RECORDS SUMMARY | 2025-07-02 18:32 | XMS_ITS | Encounter Summary ---
Author Organization [facility] [place], Address [address] [place] [address] Phone Care Team Providers Care Cash Grain Farmer Name Role Phone Matias Tan MD Primary Care Provider +1- [phone] Reason for Visit * Reason Onset Date Comments Med Refill 07/19/2022 Encounter Details Date Type Department Care Team (Late st Contact Info) Description 07/19/2022 Refill [facility] - Vascular Access Center [address] [place] [phone] Guanako Mercer MD [address] [place] [place] [phone] Social History Tobacco Use Types Packs/Day Years [...] visit [facility] - [facility] Center [address] [place] [address] documented as of this encounter Visit Diagnoses Not on filedocumented in this encounter Care Teams Cash Grain Farmer Relationship Specialty Start Date End Date Matias Tan MD [facility] [address] [facility] [place] [address] PCP - General Family Medicine 10/24/19 documented as of this encounter
--- OUTSIDE RECORDS SUMMARY | 2025-07-02 18:33 | XMS_ITS | Encounter Summary ---
Author Organization [facility], Address [address] [place] [address] Phone Care Team Providers Care Lacer And Tier Name Role Phone Matias Tan MD Primary Care Provider +1- [phone] Encounter Details Date Type Department Care Team (Late st Contact Info) Description 06/30/2025 Treatment [facility], [address] [place] [phone] Tiffani Olson FNP-C [address] [place] [phone] End stage renal disease; Dependence on renal [...] encounter Miscellaneous Notes * Dialysis Note - Tiffani Olson FNP-C - 06/30/2025 12:00 AM EDT Patient: Emma Wick, 1955, 70y, M Dialysis Location: [facility] Attending Ad Terminal Makeup Operator: Denys Mueller Service Date: 06/30/2025 Service Provider: Tiffani Olson NP I met face to face with the patient today. OVERVIEW The patient presented with ESRD on dialysis Primary cause of renal failure: Type 2 diabetes mellitus with diabetic chronic kidney disease LAST HOSPITALIZATION Discharge Diagnosis: R06.02 Shortness of breath M62.81 Muscle weakness (generalized) Admission Date 05/27/25 Discharge Date 05/30/25 DIALYSIS PRESCRIPTION IHD 3x Week Start date: 06/23/25 Dialyzer: FX CorAL 60 BFR: 450 DFR: Manual 800 Potassium: 2.0 Sodium: 138 EDW: 67 Duration: 4:00 Calcium: 2.50 Bicarb: 36 Rx updated on: 06/22/2025 TREATMENT ASSESSMENT BP Sit Pre 06/30/2025: 155/77 06/28/2025: 152/73 06/26/2025: 143/73 BP Sit Post 06/30/2025: 145/73 06/28/2025: 142/73 06/26/2025: 154/81 Tx Duration 06/30/2025: 4:05 06/28/2025: 2:38 06/26/2025: 4:02 Missed Treatments 0 - last 30 days 0 - last 60 days FLUID ASSESSMENT EDW (kg) 06/30/2025: 67.0 06/28/2025: 67.0 06/26/2025: 67.0 Weight Pre (kg) 06/30/2025: 71.6 06/28/2025: 72.8 06/26/2025: 73.6 Weight Post (kg) 06/30/2025: 68.4 06/28/2025: 69.6 06/26/2025: 69.9 PWV (kg) 06/30/2025: 1.4 06/28/2025: 2.6 06/26/2025: 2.9 UF Rate (mL/kg/hr) 06/30/2025: 11.5 06/28/2025: 17.5 06/26/2025: 13.1 ADEQUACY ASSESSMENT spKt/V, URR 06/21/2025: 1.58, 73.0 05/24/2025: 1.77, 76.0 04/19/2025: 1.72, 76.0 ACCESS ASSESSMENT Access Type: AVGraft Access SubType: Synthetic - Standard (PTFE) Access Status: Active (In Use) - 05/22/2022 Access Location: Left Upper Arm Created: 05/07/2022 Flow 06/19/2025: 1140 05/19/2025: 1375 05/12/2025: 1439 ANEMIA ASSESSMENT HGB 06/28/2025: 10.4 06/21/2025: 9.9 06/14/2025: 10.0 Ferritin 06/07/2025: 1162.0 05/03/2025: 744.0 04/05/2025: 950.0 Mircera, IVP (mcg) 06/21/2025: 75 06/07/2025: 75 04/19/2025: 100 Iron Sucrose (Venofer) (mg) 06/28/2025: 50 06/21/2025: 50 06/14/2025: 50 BMM ASSESSMENT PTH, Intact 06/07/2025: 367.0 05/03/2025: 394.0 04/05/2025: 444.0 Calcium, Phosphorus 06/07/2025: 8.4, 7.1 05/03/2025: 8.7, 5.1 04/05/2025: 8.1, 4.8 Vitamin D (Calcitriol) Oral (mcg) 06/28/2025: 0.75 06/26/2025: 0.75 06/23/2025: 0.75 NUTRITION ASSESSMENT Potassium 06/26/2025: 5.1 06/19/2025: 5.2 06/12/2025: 4.8 eNPCR 06/21/2025: 0.87 05/24/2025: 0.81 04/19/2025: 0.65 DIAGNOSIS Chief Complaint: N18.6 End stage renal disease Comments: Patient seen and examined. VSS with no complaints to offer. S1, S2, RRR. LS CTA bilaterally. Access patent. Patient is stable. Patient data updated 06/30/2025 at 4:22 PM Signed By: Tiffani Olson NP on 06/30/2025 4:22:12 PM documented in this encounter Plan of Treatment Upcoming Encounters Date Type Department Care Team (Late st Contact Info) Description 08/01/2025 11:00 AM EDT Procedure visit [facility] - [facility] [address] [place] [address] documented as of this encounter Visit Diagnoses Diagnosis End stage renal disease Dependence on renal dialysis documented in this encounter Care Teams Lacer And Tier Relationship Specialty Start Date End Date Matias Tan MD [facility] [address] [place] [address] PCP - General Family Medicine 10/24/19 documented as of this encounter
--- OUTSIDE RECORDS SUMMARY | 2025-07-02 18:33 | XMS_ITS | Encounter Summary ---
Author Organization [facility], Address [address] [place] [address] Phone Care Team Providers Care Info Print Press Operator Name Role Phone Matias Tan MD Primary Care Provider +1- [phone] Reason for Visit * Reason Comments Med Refill Encounter Details Date Type Department Care Team (Late st Contact Info) Description 09/25/2023 Refill [facility] [address] [place] [phone] Denys Mueller MD [address] [place] [address] Social History Tobacco Use Types [...] visit [facility] - V[facility] Access Center [address] [place] [address] documented as of this encounter Visit Diagnoses Not on filedocumented in this encounter Care Teams Info Print Press Operator Relationship Specialty Start Date End Date Matias Tan MD [address] [place] [address] PCP - General Family Medicine 10/24/19 documented as of this encounter
--- OUTSIDE RECORDS SUMMARY | 2025-07-02 18:33 | XMS_ITS | Encounter Summary ---
Author Organization [facility], Address [address] [place] [address] Phone Care Team Providers Care Passenger Vessel Chef Name Role Phone Matias Tan MD Primary Care Provider +1- [phone] Reason for Visit * Reason Comments Med Refill Encounter Details Date Type Department Care Team (Late st Contact Info) Description 12/28/2024 Refill [facility] [address] [place] [phone] Sawyer Davis MD [address] [facility] [place] [address] Social History Tobacco Use Types [...] visit [facility] - [facility] Access Center [address] [place] [address] documented as of this encounter Procedures Procedure Name Priority Date/Time Associated Diagnosis Comments HEMATOLOGY Routine 12/28/2024 documented in this encounter Results * (ABNORMAL) HEMATOLOGY (12/28/2024) Hemoglobin 11.5(L) 14.0 - 18.0 g/dL [facility] Hemoglobin x 3 34.5(L) 42.0 - 54.0 % [facility] 12/28/2024 12/29/2024 9:1 7 AM EDT Narrative [facility] - 12/29/2024 Unless otherwise specified, test(s) performed at: [facility], [address] [place] [address] [place] CONSULTANT: Blane Ramsay M.D. For any questions, please call customer service at FREQUENCY:OTHER Resulting Agency Comment Specimen source: Blood us Denys Mueller MD LAB BLOOD ORDERABLES Final Re sult [facility] See order comments or contact performing lab [facility], [place] documented in this encounter Visit Diagnoses Not on filedocumented in this encounter Care Teams Passenger Vessel Chef Relationship Specialty Start Date End Date Matias Tan MD [facility] [address] [place] [address] PCP - General Family Medicine 10/24/19 documented as of this encounter
--- OUTSIDE RECORDS SUMMARY | 2025-07-02 18:33 | XMS_ITS | Encounter Summary ---
Author Organization [facility] [place], Address [address] [place] [address] Phone Care Team Providers Care Ethylbenzene Cracking Supervisor Name Role Phone Matais Tan MD Primary Care Provider +1- [phone] Reason for Visit * Reason Comments Med Refill Encounter Details Date Type Department Care Team (Late st Contact Info) Description 01/26/2023 Refill [facility] [address] [place] [address] Denys Mueller MD [address] [facility] [place] [address] Social History Tobacco Use Types [...] visit [facility] - V[facility] Access Center [address] [place] [address] documented as of this encounter Visit Diagnoses Not on filedocumented in this encounter Care Teams Ethylbenzene Cracking Supervisor Relationship Specialty Start Date End Date Matias Tan MD [address] [place] [address] PCP - General Family Medicine 10/24/19 documented as of this encounter
--- OUTSIDE RECORDS SUMMARY | 2025-07-02 18:33 | XMS_ITS | Encounter Summary ---
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 System, Provider Not In, [facility] [address] [address] Referral ID Status Reason Start Date Expiration Date Visits Re quested Visits Authorized [id number] Closed 08/06/2020 08/06/2021 99 99 Encounter Details Date Type Department Care Team (Late st Contact Info) Description 02/01/2020 Transcribe Orders [facility] Department of Neurology [address] [place] [address], [address] Floor, [address] [place] [address] System, Provider Not In, [facility] [address] [address] Psychogenic movement disorder (Primary Dx); Adult onset focal torsion dystonia Social History Tobacco Use Types Packs/Day Years Used Date Smoking Tobacco: Never Sex and Gender Information Value Date Recorded Sex Assigned at Male 06/27/2021 11:54 AM EDT Legal Sex Male 3:55 PM EDT Gender Identity Male 06/27/2021 11:54 AM EDT Sexual Orientation Straight 10/25/2021 4: 26 PM EST documented as of this encounter Plan of Treatment Scheduled Referrals Name Type Priority Associated Diagnoses Order Schedule Ambulatory referral to [facility] Neurology Outpatient Referral Routine 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 Consult[employer] Provider Psychiatry 07/11/21 documented as of this encounter Additional Source Comments The information contained in this document represents components of the legal health record. It is not the complete legal health record.[facility]
--- OUTSIDE RECORDS SUMMARY | 2025-07-02 18:33 | XMS_ITS | Clinical Summary ---
Author Organization [address] Address [address] [place] [address] Phone Care Team Providers Care Glove Maker Name Role Phone Yulia Smart MD Primary Care Provider [phone] Social History Tobacco Use Types Packs/Day Years [...] Panel) 09/21/2022 Colorectal Cancer Screening: Colonoscopy 09/21/2022 Falls Risk Assessment 09/21/2022 Hepatitis C Screening 09/21/2022 Medicare Annual Wellness Visit 09/21/2022 Social Influencers of Health Screening 09/21/2022 Depression Screening 10/19/2024 Diabetes: Annual Urine Albumin-Creatinine Ratio (uACR) 01/13/2025 COVID-19 Vaccine ( season) 2025 08/01/2022, 09/16/2021, 02/13/2021 Influenza Vaccine (#1) 2025 , 08/01/2022, 09/09/2021, Additional history exists Diabetes: Blood Sugar Control Test (HGBA1C) 07/16/2025 01/13/2025 Diabetes: Annual GFR (Glomerular Filtration Rate) 01/18/2026 01/18/2025, 01/13/2025 Hypertension/CHF/CAD Annual BMP Blood Test 01/18/2026 01/18/2025, 01/13/2025 Pneumococcal Vaccine: 50+ Years Completed 09/09/2021, 09/21/2020, 08/21/2010 HIB Vaccines Aged Out No longer eligi [...] Procedure Name Priority Date/Time Associated Diagnosis Comments COMPREHENSIVE METABOLIC PANEL Routine 01/18/2025 5:06 AM EDT Encounter for other general examination HEMOGLOBIN A1C Routine 01/13/2025 5:26 AM EDT Encounter for other general examination from Last 3 Months or Most Recently Relevant to Health Maintenance Results * (ABNORMAL) Comprehensive metabolic panel (01/18/2025 5:06 AM EDT) [facility] Signature Sodium 123(L) 133 - 145 mmol/L LAB CHEMISTRY METHOD 01/18/2025 7:[address] [facility] Potassium 5.2 3.5 - 5.5 mmol/L LAB CHEMISTRY METHOD 01/18/2025 7:[address] [facility] Chloride 89(L) 96 [...] [facility] Comment:Calculation based on the Chronic Kidney Disease Epidemiology Collaboration (CKD-EPI) equation refit without adjustment for race. BUN/Creatinine Ratio 10.2 LAB [...] g/dL LAB CHEMISTRY METHOD 01/18/2025 7:[address] [facility] Total Bilirubin 1.0 0.0 - 1.4 mg/dL LAB CHEMISTRY METHOD 01/18/2025 7:[address] [facility] Comment:Results verified by repeat testing Blood Venous blood specimen / Unknown Venipuncture / Unknown 01/18/2025 5:06 AM EDT 01/18/2025 6:20 AM EDT Yulia Smart MD LAB BLOOD ORDERABLES Final Resu lt Performing Organization Address City/[facility]/ZIP Co de Phone Number [facility] [address] [place] [address], [place] [phone] * Hemoglobin A1c (01/13/2025 5:26 AM EDT) Hemoglobin A1C 5.6 <6.5 % LAB CHEMISTRY METHOD 01/13/2025 12:[address] [facility] Mean Bld Glu Estim. 114 mg/dL LAB CHEMISTRY METHOD 01/13/2025 12:[address] [facility] Blood Venous blood specimen / Unknown Venipuncture / Unknown 01/13/2025 5:26 AM EDT 01/13/2025 10:00 AM EDT Yulia Smart MD LAB BLOOD ORDERABLES Final Resu lt [facility] [address] [place] [address], [place] [phone] from Last 3 Months or Most Recently Relevant to Health Maintenance Insurance MEDICARE Care Teams Glove Maker Relationship Specialty Start Date End Date Yulia Smart MD [address] [place] [address] PCP - General Hospitalist Medicine 01/13/25
--- OUTSIDE RECORDS SUMMARY | 2025-07-02 18:33 | XMS_ITS | Encounter Summary ---
Author Organization [facility], Address [address] [place] [address] Phone Care Team Providers Care Director Product Management Name Role Phone Matias Tan MD Primary Care Provider +1- [phone] Reason for Visit * Reason Onset Date Comments Med Refill 07/01/2024 Encounter Details Date Type Department Care Team (Late Contact Info) Description 07/01/2024 Refill [facility], - Vascular Access Center [address] [place] [phone] Dale Lema MD [address] [place] [phone] Social History Tobacco Use Types Packs/Day Years [...] Vascular Access Center [address] [place] [address] documented as of this encounter Visit Diagnoses Not on filedocumented in this encounter Care Teams Director Product Management Relationship Specialty Start Date End Date Matias Tan MD [address] [facility] [place] [address] PCP - General Family Medicine 10/24/19 documented as of this encounter
--- OUTSIDE RECORDS SUMMARY | 2025-07-02 18:33 | XMS_ITS | Encounter Summary ---
Author Organization [facility], Address [address] [place] [address] Phone Care Team Providers Care Conference Service Coordinator Name Role Phone Matias Tan MD Primary Care Provider +1- [phone] Encounter Details Date Type Department Care Team (Late st Contact Info) Description 06/26/2025 Orders Only [facility] [address] [place] [phone] Denys Mueller MD [address] [place] [address] Social History Tobacco Use Types Packs/Day Years [...] Procedure visit [facility] [place] - V[facility] Access Center [address] [place] [address] documented as of this encounter Procedures Procedure Name Priority Date/Time Associated Diagnosis Comments CHEMISTRY Routine 06/26/2025 documented in this encounter Results * [facility] (06/26/2025) Potassium 5.1 3.5 - 5.1 mEq/L [facility] 06/26/2025 06/27/2025 8:3 1 AM EDT Narrative [facility] - 06/27/2025 Unless otherwise specified, test(s) performed at: [facility], [address] [place] [address] CORRECTIONAL CLASSIFICATION COUNSELOR: Blane Ramsay M.D. For any questions, please call customer service at FREQUENCY:OTHER Resulting Agency Comment Specimen source: Serum us Denys Mueller MD LAB BLOOD ORDERABLES Final Re sult [facility] See order comments or contact performing lab Unknown, [place] documented in this encounter Visit Diagnoses Not on filedocumented in this encounter Care Teams Conference Service Coordinator Relationship Specialty Start Date End Date Matias Tan MD [address] [facility] [place] [address] PCP - General Family Medicine 10/24/19 documented as of this encounter
--- OUTSIDE RECORDS SUMMARY | 2025-07-02 18:33 | XMS_ITS | Encounter Summary ---
Author Organization [facility], Address [address] [place] [address] Phone Care Team Providers Care Setter Juice Packaging Machines Name Role Phone Matias Tan MD Primary Care Provider +1- [phone] Reason for Visit * Reason Onset Date Comments Med Refill 12/23/2022 Encounter Details Date Type Department Care Team (Late st Contact Info) Description 12/23/2022 Refill [facility] - Vascular Access Center [address] [place] [address] Ferdinand Monroe MD [address] [place] [address] Social History Tobacco Use Types Packs/Day Years [...] visit [facility] - V[facility] Access Center [address] [place] [address] [place] [address] documented as of this encounter Visit Diagnoses Not on filedocumented in this encounter Care Teams Setter Juice Packaging Machines Relationship Specialty Start Date End Date Matias Tan MD [address] [facility] [place] [address] PCP - General Family Medicine 10/24/19 documented as of this encounter
--- OUTSIDE RECORDS SUMMARY | 2025-07-02 18:33 | XMS_ITS | Encounter Summary ---
Author Organization [facility] Address [address] [place] [address] Phone Care Team Providers Care Electrical Prospecting Operator Name Role Phone Matias Tan MD Primary Care Provider + Maren Simon MD Unavailable +1- [phone] Encounter Details Date Type Department Care Team (Late st Contact Info) Description 08/06/2020 Procedure Pass [facility] MRI, [place] [address] [place] [address], 2nd [place] [address] Social History Tobacco Use Types Packs/Day Years [...] on filedocumented in this encounter Care Teams Electrical Prospecting Operator Relationship Specialty Start Date End Date Matias Tan MD [address] [place] [address] PCP - General Family Medicine 10/07/19 [place] [address] [email or web address] Consulting Provider Psychiatry 07/11/21 documented as of this encounter Additional Source Comments The information contained in this document represents components of the legal health record. It is not the complete legal health record.[facility]"
--- OUTSIDE RECORDS SUMMARY | 2025-07-02 18:33 | XMS_ITS | Encounter Summary ---
Author Organization [facility], Address [address] [place] [address] Phone Care Team Providers Care Flagger Name Role Phone Matias Tan MD Primary Care Provider +1- [phone] Reason for Visit * Reason Onset Date Comments Med Refill 12/20/2022 Encounter Details Date Type Department Care Team (Late st Contact Info) Description 12/20/2022 Refill [facility] - Vascular Access Center [address] [place] [address] Kb Sung MD Social History Tobacco Use [...] visit [facility] - [facility] Center [address] [place] [address] documented as of this encounter Visit Diagnoses Not on filedocumented in this encounter Care Teams Flagger Relationship Specialty Start Date End Date Matias Tan MD [facility] [address] [facility] [place] [address] PCP - General Family Medicine 10/24/19 documented as of this encounter
--- OUTSIDE RECORDS SUMMARY | 2025-07-02 18:33 | XMS_ITS | Encounter Summary ---
Author Organization [facility] [place], Address [address] [place] [address] Phone Care Team Providers Care Sports Photographer Name Role Phone Matias Tan MD Primary Care Provider +1- [phone] Reason for Visit * Reason Comments Med Refill Encounter Details Date Type Department Care Team (Late st Contact Info) Description 11/28/2022 Refill [facility] [place] [address] [place] [address] Guanako Mercer MD [address] [place] [address] Social History Tobacco Use [...] visit [facility] - Vascular Access Center [address] [place] [address] documented as of this encounter Visit Diagnoses Not on filedocumented in this encounter Care Teams Sports Photographer Relationship Specialty Start Date End Date Matias Tan MD [address] [facility] [place] [address] PCP - General Family Medicine 10/24/19 documented as of this encounter
--- OUTSIDE RECORDS SUMMARY | 2025-07-02 18:33 | XMS_ITS | Encounter Summary ---
Author Organization [facility] [place], Address [address] [place] [address] Phone Care Team Providers Care Correction Officer Reformatory Name Role Phone Matias Tan MD Primary Care Provider +1- [phone] Reason for Visit * Reason Onset Date Comments Med Refill 12/20/2022 Encounter Details Date Type Department Care Team (Late st Contact Info) Description 12/20/2022 Refill [facility] - Vascular Access Center [address] [place] [address] Kb Sung MD Social History Tobacco Use [...] visit [facility] - V[facility] Access Center [address] [place] [address] documented as of this encounter Visit Diagnoses Not on filedocumented in this encounter Care Teams Correction Officer Reformatory Relationship Specialty Start Date End Date Matias Tan MD [facility] [address] [facility] [place] [address] PCP - General Family Medicine 10/24/19 documented as of this encounter
--- OUTSIDE RECORDS SUMMARY | 2025-07-02 18:33 | XMS_ITS | Encounter Summary ---
Author Organization [facility] Address [address] [place] [address] Phone Care Team Providers Care Water Reclamation Systems Operator Name Role Phone Matias Tan MD Primary Care Provider + Maren Simon MD Unavailable +1- [phone] Encounter Details Date Type Department Care Team (Late st Contact Info) Description 12/29/2022 Procedure Pass [facility] - MRI [address] [facility], 6th [place] [address] Social History Tobacco Use Types Packs/Day Years Used Date Smoking Tobacco: Never Smokeless Tobacco: Never Sex and Gender Information Value [...] filedocumented in this encounter Care Teams Water Reclamation Systems Operator Relationship Specialty Start Date End Date Matias Tan MD [address] [place] [address] PCP - General Family Medicine 10/07/19 Maren Simon MD [address] [facility] [place] [address] [email or web address] Consulting Provider Psychiatry 07/11/21 documented as of this encounter Additional Source Comments The information contained in this document represents components of the legal health record. It is not the complete legal health record.[facility]
--- OUTSIDE RECORDS SUMMARY | 2025-07-02 18:33 | XMS_ITS | Encounter Summary ---
Author Organization [facility], Address [address] [place] [address] Phone Care Team Providers Care Certified Medical Asst Name Role Phone Matias Tan MD Primary Care Provider +1- [phone] Reason for Visit * Reason Comments Med Refill Encounter Details Date Type Department Care Team (Late st Contact Info) Description 09/24/2023 Refill [facility] [address] [facility] [place] [address] Gabriela Hernandez PA [address] [place] [address] Social History Tobacco Use Types Packs/Day Years [...] Vascular Access Center [address] [place] [address] documented as of this encounter Visit Diagnoses Not on filedocumented in this encounter Care Teams Certified Medical Asst Relationship Specialty Start Date End Date Matias Tan MD [address] [place] [address] PCP - General Family Medicine 10/24/19 documented as of this encounter
--- OUTSIDE RECORDS SUMMARY | 2025-07-02 18:33 | XMS_ITS | Encounter Summary ---
Author Organization [facility], Address [address] [place] [address] Phone Care Team Providers Care Delivery Clerk Name Role Phone Matias Tan MD Primary Care Provider +1- [phone] Encounter Details Date Type Department Care Team (Late st Contact Info) Description 02/02/2024 Documentation Only [facility], [address] [place] [address] Alexandria Yusuf [address] [place] [address] Social History Tobacco Use Types [...] visit [facility] - Vascular Access Center [address] [place] [address] documented as of this encounter Visit Diagnoses Not on filedocumented in this encounter Care Teams Delivery Clerk Relationship Specialty Start Date End Date Matias Tan MD [address] [place] [address] PCP - General Family Medicine 10/24/19 documented as of this encounter
--- OUTSIDE RECORDS SUMMARY | 2025-07-02 18:33 | XMS_ITS | Encounter Summary ---
Author Organization [facility] Address [address] [place] [address] Care Team Providers Care Gasoline Tester Name Role Phone Yulia Smart MD Primary Care Provider Encounter Details Date Type Department Care Team (Late st Contact Info) Description 01/18/[address] [facility] - Main Lab [address] [facility] [place] [address] Yulia Smart MD [address] [place] [address] Encounter for other general examination Social History [...] METHOD 01/18/2025 7:10 AM [facility] RBC 3.10(L) 4.50 - 5.50 M/mcL LAB HEMETOLOGY METHOD 01/18/2025 7:10 AM [facility] Hemoglobin 9.5(L) 13.5 - 17.5 g/dL LAB HEMETOLOGY METHOD 01/18/2025 7:10 AM [facility] Hematocrit 27.0(L) 42.0 - 54.0 [...] 01/18/2025 7:10 AM [facility] Basophils Relative 0.0 % LAB HEMETOLOGY METHOD 01/18/2025 7:10 AM [facility] Immature Granulocytes Relative 1.1 % LAB HEMETOLOGY METHOD 01/18/2025 7:10 AM [facility] Neutrophils Absolute 7.61(H) 1.50 - 7.00 K/mcL LAB HEMETOLOGY METHOD 01/18/2025 7:10 AM [facility] Lymphocytes Absolute 0.82(L) 1.00 - 5.00 K/mcL LAB HEMETOLOGY METHOD 01/18/2025 7:10 AM [facility] Monocytes Absolute 1.33(H) 0.20 - [...] ORDERABLES Final Resu lt Performing Organization Address City/[facility]/ZIP Co de Phone Number [facility] [address] [place] [address], [place] [phone] * Ammonia (01/18/2025 5:06 AM EDT) Ammonia 28 11 - 35 mcmol/L LAB CHEMISTRY METHOD 01/18/2025 6:53 AM EDT [facility] Blood Venous blood specimen / Unknown Venipuncture / Unknown 01/18/2025 5:06 AM EDT 01/18/2025 6:20 AM EDT us Yulia Smart MD LAB BLOOD ORDERABLES Final Resu lt Performing Organization Address [facility] Co de Phone Number [facility] [address] [place] [address], [place] [phone] * Thyroid stimulating hormone (01/18/2025 5:06 AM EDT) TSH 1.94 0.40 - 4.00 mcIU/mL LAB CHEMISTRY METHOD 01/18/2025 9:08 AM EDT [facility] Blood Venous blood specimen / Unknown Venipuncture / Unknown 01/18/2025 5:06 AM EDT 01/18/2025 6:20 AM EDT us Yulia Smart MD LAB BLOOD ORDERABLES Final Resu lt Performing Organization Address City/[facility]/ZIP Co de Phone Number [facility] [address] [place] [address], [place] [phone] * (ABNORMAL) Vitamin B12 (01/18/2025 5:06 AM EDT) [facility] Vitamin B-12 1,241(H) 250 - 900 pcg/mL LAB CHEMISTRY METHOD 01/18/2025 7:36 AM EDT [facility] Blood Venous blood specimen / Unknown Venipuncture / Unknown 01/18/2025 5:06 AM EDT 01/18/2025 6:20 AM EDT us Yulia Smart MD LAB BLOOD ORDERABLES Final Resu lt [facility] [address] [place] [address], [place] [phone] * (ABNORMAL) Comprehensive metabolic panel (01/18/2025 5:06 AM EDT) [facility] Sodium 123(L) 133 - 145 mmol/L LAB CHEMISTRY METHOD 01/18/2025 7:56 AM [facility] Potassium 5.2 3.5 - 5.5 mmol/L LAB CHEMISTRY METHOD 01/18/2025 7:56 AM [facility] Chloride 89(L) 96 - 110 [...] AM [facility] Comment:Calculation based on the Chronic Kidney Disease Epidemiology Collaboration (CKD-EPI) equation refit without adjustment for race. BUN/Creatinine Ratio 10.2 LAB CHEMISTRY METHOD 01/18/2025 7:56 AM [facility] Calcium 7.8(L) 8.5 - 10.5 mg/dL LAB CHEMISTRY METHOD 01/18/2025 7:56 AM [facility] AST (SGOT) 13 10 - 42 unit/L LAB CHEMISTRY METHOD 01/18/2025 7:56 AM [facility] Comment:Results verified by repeat testing ALT (SGPT) 21 10 - 60 unit/L LAB CHEMISTRY METHOD 01/18/2025 7:56 AM [facility] Alkaline Phosphatase 52 42 - 121 unit/L LAB CHEMISTRY METHOD 01/18/2025 7:56 AM [facility] Total Protein 5.3(L) 6.0 - [...] LAB BLOOD ORDERABLES Final Resu lt [facility] [address] [place] [address], documented in this encounter Visit Diagnoses Diagnosis Encounter for other general examination documented in this encounter Care Teams Gasoline Tester Relationship Specialty Start Date End Date Yulia Smart MD [address] [place] [address] PCP - General Hospitalist Medicine 01/13/25 documented as of this encounter
--- OUTSIDE RECORDS SUMMARY | 2025-07-02 18:33 | XMS_ITS | Encounter Summary ---
Author Organization [facility] Address [address] [place] [address] Care Team Providers Care Boiler Operator Name Role Phone Yulia Smart MD Primary Care Provider Encounter Details Date Type Department Care Team (Late st Contact Info) Description 01/14/2025 Lab Requisition [facility] - Main Lab [address] [place] [address] Yuila Smart MD [address] [place] [address] Encounter for other general examination Social History [...] LAB CHEMISTRY METHOD 01/14/2025 12:17 PM EDT [facility] Blood Venous blood specimen / Unknown Venipuncture / Unknown 01/14/2025 5:58 AM EDT 01/14/2025 9:53 AM EDT us Yulia Smart MD LAB BLOOD ORDERABLES Final Resu lt [facility] [place] ([facility] [address] [place] [address], documented in this encounter Visit Diagnoses Diagnosis Encounter for other general examination documented in this encounter Care Teams Boiler Operator Relationship Specialty Start Date End Date Yulia Smart MD [address] [place] [address] PCP - General Hospitalist Medicine 01/13/25 documented as of this encounter
--- OUTSIDE RECORDS SUMMARY | 2025-07-02 18:33 | XMS_ITS | Encounter Summary ---
Author Organization [facility], Address [address] [place] [address] Phone Care Team Providers Care Dental Technician Name Role Phone Matias Tan MD Primary Care Provider +1- [phone] Reason for Visit * Reason Onset Date Comments Med Refill 06/08/2022 Encounter Details Date Type Department Care Team (Late st Contact Info) Description 06/08/2022 Refill [facility], [address] [place] [address] Guanako Mercer MD [address] [facility] [place] [address] Social History Tobacco Use Types Packs/Day Years [...] visit [facility] - Vascular Access Center [address] [place] [address] documented as of this encounter Visit Diagnoses Not on filedocumented in this encounter Care Teams Dental Technician Relationship Specialty Start Date End Date Matias Tan MD [address] [facility] [place] [address] PCP - General Family Medicine 10/24/19 documented as of this encounter
--- OUTSIDE RECORDS SUMMARY | 2025-07-02 18:33 | XMS_ITS | Encounter Summary ---
Author Organization [facility] [place], Address [address] [place] [address] Phone Care Team Providers Care Charging Crane Operator Name Role Phone Matias Tan MD Primary Care Provider +1- [phone] Encounter Details Date Type Department Care Team (Late st Contact Info) Description 06/28/2025 Orders Only [facility] [place] [address] [place] [address] Denys Mueller MD [address] [place] [address] Social History Tobacco Use Types Packs/Day Years [...] Procedure visit [facility] [place] - Vascular Access Center [address] [place] [address] documented as of this encounter Procedures Procedure Name Priority Date/Time Associated Diagnosis Comments HEMATOLOGY Routine 06/28/2025 documented in this encounter Results * (ABNORMAL) HEMATOLOGY (06/28/2025) Hemoglobin 10.4(L) 14.0 - 18.0 g/dL [facility] Hemoglobin x 3 31.2(L) 42.0 - 54.0 % [facility] 06/28/2025 06/29/2025 9:2 3 AM EDT Narrative [facility] - 06/29/2025 Unless otherwise specified, test(s) performed at: [facility], [address] [place] [address] ELECTRIC BLANKET WIRER: Blane Ramsay M.D. For any questions, please call customer service at FREQUENCY:OTHER Resulting Agency Comment Specimen source: Blood us Denys Mueller MD LAB BLOOD ORDERABLES Final Re sult [facility] See order comments or contact performing lab Unknown, [place] documented in this encounter Visit Diagnoses Not on filedocumented in this encounter Care Teams Charging Crane Operator Relationship Specialty Start Date End Date Matias Tan MD [facility] [address] [facility] [place] [address] PCP - General Family Medicine 10/24/19 documented as of this encounter
--- OUTSIDE RECORDS SUMMARY | 2025-07-02 18:33 | XMS_ITS | Encounter Summary ---
Author Organization [facility] [place], Address [address] [place] [address] Phone Care Team Providers Care Color Room Attendant Name Role Phone Matias Tan MD Primary Care Provider +1- [phone] Reason for Visit * Reason Comments Med Refill Encounter Details Date Type Department Care Team (Late st Contact Info) Description 01/26/2023 Refill [facility] [address] [facility] [place] [address] Gabriela Hernandez PA [address] [place] [address] Social History Tobacco Use Types Packs/Day Years [...] visit [facility] - V[facility] Access Center [address] [place] [address] documented as of this encounter Visit Diagnoses Not on filedocumented in this encounter Care Teams Color Room Attendant Relationship Specialty Start Date End Date Matias Tan MD [address] [place] [address] PCP - General Family Medicine 10/24/19 documented as of this encounter
--- OUTSIDE RECORDS SUMMARY | 2025-07-02 18:33 | XMS_ITS | Encounter Summary ---
Author Organization [facility] Address [address] [place] [address] Phone Care Team Providers Care Baker Bread Name Role Phone Matias Tan MD Primary Care Provider + Maren Simon MD Unavailable +1- [phone] Encounter Details Date Type Department Care Team (Late st Contact Info) Description 01/27/2022 Ancillary Orders [facility],Outside Imaging [address] [place], [place] [id number] System, Provider [place] In, [place] [address] Social History Tobacco Use Types Packs/Day Years [...] on file documented as of this encounter Results * MRI Pelvis (Soft Tissue) Outside (No Interpretation) (12/14/2019 12:00 AM EST) Narrative SYSTEMGENERATED, DOCUMENTATION - 01/27/2022 11:45 AM EDT This study is for PACS storage only and not for interpretation. us Provider Not In System PhD IMG OUTSIDE IMAGING W /OUT INTERPRETATION Final Result documented in this encounter Visit Diagnoses Not on filedocumented in this encounter Care Teams Baker Bread Relationship Specialty Start Date End Date Matias Tan MD [address] [place] [address] PCP - General Family Medicine 10/07/19 [place] [address] [email or web address] Consulting Provider Psychiatry 07/11/21 documented as of this encounter Additional Source Comments The information contained in this document represents components of the legal health record. It is not the complete legal health record.[facility]
--- OUTSIDE RECORDS SUMMARY | 2025-07-02 18:33 | XMS_ITS | Clinical Summary ---
Author Organization [facility], Address [address] [place] [address] Phone Care Team Providers Care Transportation Planning Engineer Name Role Phone Matias Tan MD Primary Care Provider [phone]- [phone] Allergies Active Allergy Reactions Criticality Noted Date Comments Penicillin G Other (see comments),Nausea Medium 2019 Nausea, dizzy Risperidone 01/27/2025 Does not recall Trazodone Other (see comments) High 11/30/2019 Priapism [...] HOURS NEEDED FOR PAIN 2 Active B Xhuugsq-S-Ekcvd Acid (Dialyvite 800) 0.8 MG tablet Take [...] evening and 650 mg before bedtime. Active sucralfate (CARAFATE) 1 g tablet Take 1 g by mouth in the morning and 1 g in the evening. 5 Active sevelamer (RENAGEL) 800 MG tablet Take 800 mg by mouth in the morning and 800 mg at noon and 800 mg in the evening. Take with meals. 5 Active midodrine (PROAMATINE) 10 MG tablet Take 10 mg by mouth 1 (one) time each day if needed (hypotension SBP < 100) 5 Active lidocaine (Lidoderm) 5 % patch Apply 1 patch topically 1 (one) time each day at the same time 5 Active Insulin Lispro, 1 Unit Dial, (HumaLOG KWIKPEN) 100 UNIT/ML solution pen-injector Inject under the skin 4 Active hydrALAZINE 25 MG tablet Take 25 mg by mouth in the morning and 25 mg in the evening and 25 mg before bedtime. 5 Active diphenhydrAMINE (Benadryl Allergy) 25 MG tablet Take 25 mg by mouth every 6 (six) hours if needed for itching 5 Active dextrose (GLUTOSE) 40 % gel Take by mouth if needed for low blood sugar 5 Active cetirizine (ZyrTEC) 10 MG tablet Take 10 mg by mouth 1 (one) time each day at the same time 5 Active ascorbic acid (VITAMIN C) 250 MG tablet Take 250 mg by mouth 1 (one) time each day at the same time 5 Active ALPRAZolam (XANAX) 2 MG tablet Take 2 mg by mouth in the morning and 2 mg in the evening. Active ALPRAZolam (XANAX) 0.5 MG tablet Take 0.5 mg by mouth if needed for anxiety Active cefuroxime (CEFTIN) 500 MG tablet Take 500 mg by mouth in the morning and 500 mg in the evening. Active Active Problems Problem Noted Date Diagnosed [...] Encounters Date Type Department Care Team Description 06/30/2025 Treatment [facility], [address] [place] [address] Tiffani Olson FNP-C End stage renal disease; Dependence on renal dialysis 06/28/2025 Orders Only [facility] [address] [address] Denys Mueller MD 06/26/2025 Orders Only [facility] [address] [address] Denys Mueller MD 06/21/2025 Orders Only [facility] [address] [address] Denys Mueller MD 06/21/2025 Treatment [facility] [address] [place] [address] Tiffani Olson FNP-C End stage renal disease; Dependence on renal dialysis 06/19/2025 Orders Only [facility] [address] [address] Denys Mueller MD 06/16/2025 Treatment [facility] [address] [place] [address] Sawyer Davis MD End stage renal disease; Dependence on renal dialysis 06/14/2025 Orders Only [facility] [address] [address] Denys Mueller MD 06/12/2025 Orders Only [facility] [address] [address] Denys Mueller MD 06/07/2025 Orders Only [facility] [address] [address] Denys Mueller MD 06/07/2025 Treatment [facility] [address] [place] [address] Tiffani Olson FNP-C End stage renal disease; Dependence on renal dialysis 06/05/2025 Orders Only [facility] [address] [address] Denys Mueller MD 05/31/2025 Orders Only [facility] [address] [address] Denys Mueller MD 05/26/2025 Treatment [facility] [address] [place] [address] Tiffani Olson FNP-C End stage renal disease; Dependence on renal dialysis 05/24/2025 Orders Only [facility] [address] [address] Denys Mueller MD 05/22/2025 Orders Only [facility] [address] [address] Denys Mueller MD 05/19/2025 Treatment [facility] [address] [place] [address] Tiffani Olson FNP-C End stage renal disease; Dependence on renal dialysis 05/17/2025 Orders Only [facility] [address] [address] Denys Mueller MD 05/15/2025 Orders Only [facility] [address] [address] Denys Mueller MD 05/10/2025 Orders Only [facility] [address] [address] Denys Mueller MD 05/10/2025 Treatment [facility] [address] [place] [address] Tiffani Olson FNP-C End stage renal disease; Dependence on renal dialysis 05/08/2025 Orders Only [facility] [address] [address] Denys Mueller MD 05/05/2025 Treatment [facility], [address] [place] [address] Tiffani Olson FNP-C End stage renal disease; Dependence on renal dialysis 05/03/2025 Telephone [facility] [address] [place] [address] [place] [address] Tanya Chi 05/02/2025 10:00 AM EDT Procedure visit [facility] [address] [place] [address] [place] [address] Ferdinand Monroe MD End stage renal disease (HCC) (Primary Dx); 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, subsequent encounter 05/01/2025 Telephone [facility] [address] [place] [address] [place] [address] Amy English 04/26/2025 Orders Only [facility] [address] [address] Denys Mueller MD 04/26/2025 Treatment [facility], [address] [place] [address] Tiffani Olson FNP-Taniya End stage renal disease; Dependence on renal dialysis 04/24/2025 Orders Only [facility] [address] [address] Denys Mueller MD 04/19/2025 Orders Only [facility] [address] [address] Denys Mueller MD 04/17/2025 Treatment [facility], [address] [place] [address] Sawyer Davis MD End stage renal disease; Dependence on renal dialysis 04/17/2025 Orders Only [facility] [address] [address] Denys Mueller MD 04/12/2025 Orders Only [facility] [address] [address] Denys Mueller MD 04/10/2025 Orders Only [facility] [address] [address] Denys Mueller MD 04/05/2025 Orders Only [facility] [address] [address] Denys Mueller MD 04/03/2025 Orders Only [facility] [address] [address] Denys Mueller MD from Last 3 Months [...] Sign Reading Time Taken Comments Blood Pressure 163/66 05/02/2025 9:46 AM EDT Pulse 66 05/02/2025 9:46 AM EDT Temperature 36.2 C (97.2 F) 05/02/2025 9:46 AM EDT Respiratory Rate 16 05/02/2025 9:46 AM EDT Oxygen Saturation 98% 05/02/2025 9:46 AM EDT Inhaled Oxygen Concentration - - Weight 76.2 kg (168 lb) 05/02/2025 9:46 AM EDT Height 167.6 cm (5' 6 ) 05/02/2025 9:46 AM EDT Body Mass Index 27.12 05/02/2025 9:46 AM EDT Plan of Treatment Upcoming Encounters Date Type Department Care Team (Late st Contact Info) Description 08/01/2025 11:00 AM EDT Procedure visit [facility] - [facility] Center [address] [place] [address] [place] [address] Health Maintenance Due Date Last [...] 05/04/2024, 02/03/2024, Additional history exists Influenza Vaccine (#1) 2025 4, 08/05/2023, 09/09/2021, Additional history exists Pneumococcal Vaccine: 50+ Years Completed 09/09/2021, 09/21/2020, 08/21/2010 Pneumococcal Vaccine: Peds ( 0 to 5 Years) and At-Risk Patients (6 to 49 Years) Discontinued 09/09/2021, 09/21/2020, 08/21/2010 Procedures Procedure Name Priority Date/Time Associated Diagnosis Comments HEMATOLOGY Routine 06/28/2025 CHEMISTRY Routine 06/26/2025 [facility] RESULTS Routine 06/21/2025 HD KINETICS Routine 06/21/2025 POST CHEMISTRY Routine 06/21/2025 CHEMISTRY Routine 06/21/2025 HEMATOLOGY Routine 06/21/2025 CHEMISTRY Routine 06/19/2025 HEMATOLOGY Routine 06/14/2025 CHEMISTRY Routine 06/12/2025 HEMATOLOGY Routine 06/07/2025 CHEMISTRY Routine 06/07/2025 IMMUNO CHEMISTRY Routine 06/07/2025 CHEMISTRY Routine 06/07/2025 CHEMISTRY Routine 06/05/2025 CHEMISTRY Routine 05/31/2025 HEMATOLOGY Routine 05/31/2025 [facility] LAB RESULTS Routine 05/24/2025 HD KINETICS Routine 05/24/2025 POST CHEMISTRY Routine 05/24/2025 CHEMISTRY Routine 05/24/2025 HEMATOLOGY Routine 05/24/2025 CHEMISTRY Routine 05/22/2025 HEMATOLOGY Routine 05/17/2025 CHEMISTRY Routine 05/15/2025 HEMATOLOGY Routine 05/10/2025 CHEMISTRY Routine 05/08/2025 CHEMISTRY Routine 05/03/2025 IMMUNO CHEMISTRY Routine 05/03/2025 HEMATOLOGY Routine 05/03/2025 CHEMISTRY Routine 05/03/2025 CHEMISTRY Routine 05/01/2025 HEMATOLOGY Routine 04/26/2025 CHEMISTRY Routine 04/24/2025 [facility] LAB RESULTS Routine 04/19/2025 HD KINETICS Routine 04/19/2025 POST CHEMISTRY Routine 04/19/2025 CHEMISTRY Routine 04/19/2025 HEMATOLOGY Routine 04/19/2025 CHEMISTRY Routine 04/17/2025 HEMATOLOGY Routine 04/12/2025 CHEMISTRY Routine 04/10/2025 HEMATOLOGY Routine 04/05/2025 IMMUNO CHEMISTRY Routine 04/05/2025 CHEMISTRY Routine 04/05/2025 CHEMISTRY Routine 04/05/2025 CHEMISTRY Routine 04/03/2025 SPECIAL CHEMISTRY Routine 05/04/2024 from Last 3 Months or Most Recently Relevant to Health Maintenance Results * (ABNORMAL) HEMATOLOGY (06/28/2025) Only the most recent of13 resultswithin the time period is included. Hemoglobin 10.4(L) 14.0 - 18.0 g/dL [facility] Hemoglobin x 3 31.2(L) 42.0 - 54.0 % [facility] 06/28/2025 06/29/2025 9:2 3 AM EDT Narrative [facility] - 06/29/2025 Unless otherwise specified, test(s) performed at: [facility], [address] [place], [place] [id number] BOWLING BALL WEIGHER AND PACKER: Blane Ramsay M.D. For any questions, please call customer service at FREQUENCY:OTHER Resulting Agency Comment Specimen source: Blood Denys Mueller MD LAB BLOOD ORDERABLES Final Re sult Performing Organization Address [facility]/ZIP Co de Phone Number [employer] See order comments or contact performing lab Unknown, [place] * [facility] (06/26/2025) Only the most recent of22 resultswithin the time period is included. Potassium 5.1 3.5 - 5.1 mEq/L [facility] 06/26/2025 06/27/2025 8:3 1 AM EDT Narrative [facility] - 06/27/2025 Unless otherwise specified, test(s) performed at: [facility], [address] [place] [id number] BOWLING BALL WEIGHER [employer] PACKER: Blane Ramsay M.D. For any questions, please call customer service at FREQUENCY:OTHER Resulting Agency Comment Specimen source: Serum Denys Mueller MD LAB BLOOD ORDERABLES Final Re sult Performing Organization Address City/[facility]/ZIP Co de Phone Number [employer] [facility] See order comments or contact performing lab Unknown, [place] * HD KINETICS (06/21/2025) Only the most recent of3 resultswithin the time period is included. % Urea Reduction 73 65 - 80 % [facility] 06/21/2025 06/23/2025 11: 58 AM EDT Narrative Resulting Agency Comment Specimen source: Plasma Denys Mueller MD LAB BLOOD ORDERABLES Final Re sult [employer] [facility] See order comments or contact performing lab Unknown, [place] * POST CHEMISTRY (06/21/2025) Only the most recent of3 resultswithin the time period is included. BUN Post Dialysis 14 6 - 19 mg/dL [facility] 06/21/2025 06/23/2025 11: 58 AM EDT Narrative [facility] - 06/23/2025 Unless otherwise specified, test(s) performed at: [facility], [address] [place], [place] [phone] BOWLING BALL WEIGHER AND PACKER: Blane Ramsay M.D. For any questions, please call customer service at FREQUENCY:OTHER Resulting Agency Comment Specimen source: Plasma Denys Mueller MD LAB BLOOD ORDERABLES Final Re sult Performing Organization Address [facility]/RUST Co de Phone Number [employer] See order comments or contact performing lab Unknown, [place] * [facility] Lab Results (06/21/2025) Only the most recent of3 resultswithin the time period is included. Pathologist [facility] spKt/V Gotch 1.56 [facility] WSTDKT/V 2.5 [facility] PCR 62.50 [facility] eKt/V Gotch 1.36 [facility] e Center nPCR_HD 0.96 [facility] spKt/V (Daugirdas II) 1.58 [facility] eKdrt/V 1.36 [facility] eKt/V (Tattersall) 1.38 [facility] eNPCR 0.87 [facility] 06/21/2025 06/21/2025 [facility] Ordering Provider LAB BLOOD ORDERABLES Final Result [facility] Contact Performing lab Unknown, [place] * IMMUNO CHEMISTRY (06/07/2025) Only the most recent of3 resultswithin the time period is included. Hep B Surface Ag Negative Negative [facility] 06/07/2025 06/08/2025 9:0 8 AM EDT Narrative Resulting Agency Comment Specimen source: Serum Denys Mueller MD LAB BLOOD ORDERABLES Final Re sult Performing Organization Address City/[facility]/ZIP Co de Phone Number [facility] See order comments or contact performing lab Unknown, [place] * SPECIAL CHEMISTRY (05/04/2024) Hemoglobin A1C 5.1 4.8 - 5.9 % [facility] 05/04/2024 05/05/2024 9:5 7 AM EDT Narrative [facility] - 05/05/2024 Unless otherwise specified, test(s) performed at: [facility], [address] [place], [place] [phone] BOWLING BALL WEIGHER AND PACKER: Blane Ramsay M.D. For any questions, please call customer service at FREQUENCY:MONTHLY Resulting Agency Comment Specimen source: Blood Denys Mueller MD LAB BLOOD BANK TEST ORDERABLE S Final Result Performing Organization Address City/[facility]/[place]UST Co de Phone Number [facility] See order comments or contact performing lab Unknown, [place] from Last 3 Months or Most Recently Relevant to Health Maintenance Insurance Medicare [facility] Medicare [facility] Care Teams Transportation Planning Engineer Relationship Specialty Start Date End Date Matias Tan MD [facility] [address] [place] [address] PCP - General Family Medicine 10/24/19
--- OUTSIDE RECORDS SUMMARY | 2025-07-02 18:33 | XMS_ITS | Encounter Summary ---
Author Organization [facility] Address [address] [place] [address] Care Team Providers Care Hand Painter Name Role Phone Yulia Smart MD Primary Care Provider Encounter Details Date Type Department Care Team (Late st Contact Info) Description 01/13/2025 Lab Requisition [facility] - Main Lab [address] [facility] [place] [address] Yulia Smart MD [address] [place] [address] Encounter for other general examination Social History [...] LAB HEMETOLOGY METHOD 01/13/2025 11:17 AM [facility] RBC 3.40(L) 4.50 - 5.50 M/mcL LAB HEMETOLOGY METHOD 01/13/2025 11:17 AM [facility] Hemoglobin 10.6(L) 13.5 - 17.5 g/dL LAB HEMETOLOGY METHOD 01/13/2025 11:17 AM [facility] Hematocrit 30.8(L) 42.0 - 54.0 % LAB HEMETOLOGY METHOD 01/13/2025 11:17 AM [facility] MCV 89.8 79.0 - 98.0 FL LAB HEMETOLOGY METHOD 01/13/2025 11:17 AM [facility] MCH 30.9 27.0 - 32.0 pcg LAB HEMETOLOGY METHOD 01/13/2025 11:17 AM [facility] MCHC 34.4 32.0 - 37.0 g/dL LAB HEMETOLOGY METHOD 01/13/2025 11:17 AM [facility] RDW 14.5 11.0 - 15.0 % LAB HEMETOLOGY METHOD 01/13/2025 11:17 AM [facility] Platelets 105(L) 130 - 400 K/mcL LAB HEMETOLOGY METHOD 01/13/2025 11:17 AM [facility] MPV 11.5(H) 7.0 - 11.0 FL LAB HEMETOLOGY METHOD 01/13/2025 11:17 AM [facility] NRBC 0.0 <1.0 % LAB HEMETOLOGY METHOD 01/13/2025 11:17 AM [facility] NRBC Absolute 0.00 <0.10 K/mcL LAB HEMETOLOGY METHOD 01/13/2025 11:17 AM [facility] Neutrophils Relative 49.1 % LAB HEMETOLOGY METHOD 01/13/2025 11:17 AM [facility] Lymphocytes Relative 31.3 % LAB HEMETOLOGY METHOD 01/13/2025 11:17 AM [facility] Monocytes Relative 13.0 % LAB HEMETOLOGY METHOD 01/13/2025 11:17 AM [facility] Eosinophils Relative 6.0 % LAB HEMETOLOGY METHOD 01/13/2025 11:17 AM [facility] Basophils Relative 0.4 % LAB HEMETOLOGY METHOD 01/13/2025 11:17 AM [facility] Immature Granulocytes Relative 0.2 % LAB HEMETOLOGY METHOD 01/13/2025 11:17 AM [facility] Neutrophils Absolute 2.38 1.50 - 7.00 K/mcL LAB HEMETOLOGY METHOD 01/13/2025 11:17 AM [facility] Lymphocytes Absolute 1.52 1.00 - 5.00 K/mcL LAB HEMETOLOGY METHOD 01/13/2025 11:17 AM [facility] Monocytes Absolute 0.63 0.20 - 1.00 K/mcL LAB HEMETOLOGY METHOD 01/13/2025 11:17 AM [facility] Eosinophils Absolute 0.29 0.00 - 0.50 K/mcL LAB HEMETOLOGY METHOD 01/13/2025 11:17 AM [facility] Basophils Absolute 0.02 0.00 - 0.20 K/mcL LAB HEMETOLOGY METHOD 01/13/2025 11:17 AM [facility] Immature Granulocytes Absolute 0.01 0.00 - 0.03 K/mcL LAB HEMETOLOGY METHOD 01/13/2025 11:17 AM [facility] Blood Venous blood specimen / Unknown Venipuncture / Unknown 01/13/2025 5:26 AM EDT 01/13/2025 10:00 AM EDT us Yulia Smart MD LAB BLOOD ORDERABLES Final Resu lt Performing Organization Address City/[facility]/ZIP Co de Phone Number [facility] [address] [place] [address], [place] [phone] * (ABNORMAL) Magnesium (01/13/2025 5:26 AM EDT) Magnesium 1.8(L) 1.9 - 2.6 mg/dL LAB CHEMISTRY METHOD 01/13/2025 12:11 PM EDT [facility] Blood Venous blood specimen / Unknown Venipuncture / Unknown 01/13/2025 5:26 AM EDT 01/13/2025 10:00 AM EDT us Yulia Smart MD LAB BLOOD ORDERABLES Final Resu lt Performing Organization Address [facility]/ZIP Mo de Phone Number [facility] [address] [place] [address], [place] [phone] * Hemoglobin A1c (01/13/2025 5:26 AM EDT) Hemoglobin A1C 5.6 <6.5 % LAB CHEMISTRY METHOD 01/13/2025 12:43 PM EDT [facility] Mean Bld Glu Estim. 114 mg/dL LAB CHEMISTRY METHOD 01/13/2025 12:43 PM EDT [facility] Blood Venous blood specimen / Unknown Venipuncture / Unknown 01/13/2025 5:26 AM EDT 01/13/2025 10:00 AM EDT us Yulia Smart MD LAB BLOOD ORDERABLES Final Resu lt Performing Organization Address City/[facility]/ZIP Co de Phone Number [facility] [address] [place] [address], [place] [phone] * (ABNORMAL) Comprehensive metabolic panel (01/13/2025 5:26 AM EDT) Sodium 129(L) 133 - 145 mmol/L LAB CHEMISTRY METHOD 01/13/2025 12:12 PM [facility] Potassium 3.6 3.5 - 5.5 mmol/L LAB CHEMISTRY METHOD 01/13/2025 12:12 PM [facility] Chloride 85(L) 96 - 110 mmol/L LAB CHEMISTRY METHOD 01/13/2025 12:12 PM [facility] CO2 28 21 - 32 mmol/L LAB CHEMISTRY METHOD 01/13/2025 12:12 PM [facility] Anion Gap 16(H) 3 - 11 LAB CHEMISTRY METHOD 01/13/2025 12:12 PM [facility] Glucose 90 70 - 100 mg/dL LAB CHEMISTRY METHOD 01/13/2025 12:12 PM [facility] BUN 77(H) 5 - 25 mg/dL LAB CHEMISTRY METHOD 01/13/2025 12:12 PM [facility] Creatinine 10.50(H) 0.70 - 1.30 mg/dL LAB CHEMISTRY METHOD 01/13/2025 12:12 PM [facility] eGFR 5(L) >=60 mL/min/1 .73m2 LAB CHEMISTRY METHOD 01/13/2025 12:12 PM [facility] Comment:Calculation based on the Chronic Kidney Disease Epidemiology Collaboration (CKD-EPI) equation refit without adjustment for race. BUN/Creatinine Ratio 7.3 LAB CHEMISTRY METHOD 01/13/2025 12:12 PM [facility] Calcium 7.2(L) 8.5 - 10.5 mg/dL LAB CHEMISTRY METHOD 01/13/2025 12:12 PM [facility] AST (SGOT) 76(H) 10 - 42 unit/L LAB CHEMISTRY METHOD 01/13/2025 12:12 PM EDT [facility] ALT (SGPT) 36 10 - 60 unit/L LAB CHEMISTRY METHOD 01/13/2025 12:12 PM EDT [facility] Alkaline Phosphatase 65 42 - 121 unit/L LAB CHEMISTRY METHOD 01/13/2025 12:12 PM EDT [facility] Total Protein 5.9(L) 6.0 - 8.0 g/dL LAB CHEMISTRY METHOD 01/13/2025 12:12 PM EDT [facility] Albumin 2.9(L) 3.2 - 5.0 g/dL LAB CHEMISTRY METHOD 01/13/2025 12:12 PM [facility] Total Bilirubin 0.4 0.0 - 1.4 mg/dL LAB CHEMISTRY METHOD 01/13/2025 12:12 PM T [facility] Blood Venous blood specimen / Unknown Venipuncture / Unknown 01/13/2025 5:26 AM EDT 01/13/2025 10:00 AM EDT us Yulia Smart MD LAB BLOOD ORDERABLES Final Resu lt [facility] [address] [place] [address], [place] [phone] documented in this encounter Visit Diagnoses Diagnosis Encounter for other general examination documented in this encounter Care Teams Hand Painter Relationship Specialty Start Date End Date Yulia Smart MD [address] [place] [id number] PCP - General Hospitalist Medicine 01/13/25 documented as of this encounter
--- OUTSIDE RECORDS SUMMARY | 2025-07-02 18:33 | XMS_ITS | Encounter Summary ---
Author Organization [facility], Address [address] [place] [address] Phone Care Team Providers Care Maintenance And Engineering Manager Name Role Phone Matias Tan MD Primary Care Provider [phone]- [phone] Reason for Visit * Reason Comments Med Refill Encounter Details Date Type Department Care Team (Late st Contact Info) Description 05/08/2024 Refill [facility] [address] [place] [address] Gabriela Hernandez PA [address] [place] [address] Social History Tobacco Use Types Packs/Day Years [...] visit [facility] [address] [place] [place] [address] documented as of this encounter Visit Diagnoses Not on filedocumented in this encounter Care Teams Maintenance And Engineering Manager Relationship Specialty Start Date End Date Matias Tan MD [address] [place] [address] PCP - General Family Medicine 10/24/19 documented as of this encounter
--- OUTSIDE RECORDS SUMMARY | 2025-07-02 18:33 | XMS_ITS | Clinical Summary ---
Author Organization [facility] Address [address] [place] [address] Phone Care Team Providers Care Job Hand Name Role Phone Matias Tan MD Primary Care Provider + Maren Simon MD Unavailable [phone]- [phone] Allergies Active Allergy Reactions Criticality Noted Date Comments Penicillin G 11/30/2019 Tramadol 11/30/2019 Trazodone 11/30/2019 Medications insulin glargine (LANTUS) 100 unit/mL injection vial Inject 30 Units under the skin nightly at bedtime. Active levothyroxine (SYNTHROID, LEVOTHROID) 137 MCG tablet Take 137 mcg by mouth every morning. Active lisinopril (PRINIVIL,ZESTR IL) 20 MG tablet Take 20 mg by mouth daily. Active atenolol (TENORMIN) 100 MG tablet Take 100 mg by mouth daily. Active amLODIPine (NORVASC) 2.5 MG tablet Take 2.5 mg by mouth daily. Active dextroamphetami ne-amphetamine (ADDERALL) 20 mg Tab tablet Take 40 mg by mouth daily. Active calcitriol (ROCALTROL) 0.5 MCG capsule 1 Active DULoxetine (CYMBALTA) 60 MG capsule Take 60 mg by mouth 2 (two) times a day. Active lamoTRIgine (LAMICTAL) 25 MG IMMEDIATE release tablet Wk 1: 25mg qAM. Wk 2: 25mg BID. Wk 3: 50mg qAM, 25mg qPM. Wk 4: 50mg BID. Wk 5: 75mg BID. Wk 6+: 100mg BID 248 tablet 1 Active clonazePAM (KLONOPIN) 1 MG tablet Take 1 mg by mouth 2 (two) times a day. 2 Active LOKELMA 10 gram 3 Active betamethasone, augmented, (DIPROLENE AF) 0.05 % cream APPLY TOPICALLY TO THE AFFECTED AREA TWICE DAILY NEEDED FOR RASH 3 Active cholecalciferol (VITAMIN D3) 5,000 unit tablet Take 1 tablet by mouth. 2 Active B complex-vitamin C-folic acid (DIALYVITE 800) 0.8 mg Tab Take 1 tablet by mouth. 2 Active lanthanum (FOSRENOL) 750 mg chewable tablet Take 1 tablet by mouth. 2 Active OXcarbazepine (TRILEPTAL) 150 MG tablet Take 1 tablet (150 mg total) by mouth 3 (three) times a week. 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 08/27/2021 Chronic kidney disease, stage 4 (severe) 021 Immunizations Immunization Administration Dates Next Due COVID-19 (Pre-08/10) Pfizer Vaccine, mRNA, PF 09/16/2021,02/13/2021 INFLUENZA, SPLIT VIRUS, TRIV ALENT W/ PRESERVATIVE IM 09/09/2021,08/22/2020,10/18/2019,07/02,07/01/2017,10/18/2014,11/21/2013 ,09/19/2011 Influenza, whole 08/21/2010 Pneumococcal conjugate PCV13 09/21/2020 Pneumococcal polysaccharide PPSV23 09/09/2021, Tdap 04/13/2010 Social History Tobacco Use Types Packs/Day Years Used Date Smoking Tobacco: Never Smokeless Tobacco: Never Tobacco Cessation:Counseling Given: Not Answered Education Answer Date Recorded Are you interested [...] Orientation Straight 10/25/2021 4: 26 PM EST Last Filed Vital Signs Vital Sign Reading Time Taken Comments Blood Pressure 163/78 12/29/2022 10:52 AM EDT Pulse 83 12/29/2022 10:52 AM EDT Temperature 37 C (98.6 F) 03/30/2023 11:25 AM EDT Respiratory Rate - - Oxygen Saturation 99% 12/29/2022 10:52 AM EDT Inhaled Oxygen Concentration - - Weight 84.1 kg (185 lb 6.5 oz) 12/29/2022 10:52 AM EDT Height 170.2 cm (5' 7 ) 01/24/2022 5:36 PM EDT Body Mass Index 29.04 01/24/2022 5:36 PM EDT Plan of Treatment Health Maintenance Due Date Last Done Comments DEPRESSION SCREENING 1966 HEPATITIS C SCREENING 01/04/1972 LIPID PANEL 01/04/1972 COLOGUARD 1999 COLONOSCOPY 1999 COLORECTAL CANCER SCREENING 1999 FIT TEST 1999 FOBT 1999 SIGMOIDOSCOPY 1999 VIRTUAL COLONOSCOPY 1999 ZOSTER VACCINES (1 of 2) 01/04/2004 RSV VACCINE (1 - Risk 60-74 years 1-dose series) 2014 Adult Td,Tdap Booster 04/13/2020 04/13/2010 DIABETIC EYE EXAM 12/19/2021 HEMOGLOBIN A1C 07/17/2022 04/16/2022, 12/17, 08/06/2020, Additional history exists CREATININE LEVEL 09/23/2022 09/23/2021, 12/08/2019 POTASSIUM LEVEL 09/23/2022 09/23/2021 TSH LEVEL 09/23/2022 09/23/2021 BLOOD PRESSURE 07/01/2023 12/29/2022 INFLUENZA VACCINE (#1) 2025 , 09/09/2021, 08/22/2020, Additional history exists COVID-19 VACCINE (2024- season) 2025 08/01/2022, 08/01/2022, 09/16/2021, Additional history exists PNEUMOCOCCAL VACCINES (50+ years) Completed 09/09/2021, 09/21/2020, 08/21/2010 SMOKING STATUS SCREENING (Once After 26 Yrs) Completed 12/29/2022 HEPATITIS A VACCINES Aged Out No long er eligible based on patient's age to complete this topic HIB VACCINES Aged Out No longer eligi ble based on patient's age to complete this topic MENINGOCOCCAL VACCINES (ACWY) Aged Out No longer eligible based on patient's age to complete this topic MENINGOCOCCAL VACCINES (B) Aged Out N o longer eligible based on patient's age to complete this topic Medical Devices Not on file Procedures Procedure Name Priority Date/Time Associated Diagnosis Comments TSH WITH REFLEX Routine 09/23/2021 1:09 PM EST Sensory disorder BASIC METABOLIC PANEL Routine 09/23/2021 1:09 PM EST Sensory disorder HEMOGLOBIN A1C Routine 08/06/2020 3:11 PM EDT Type 2 diabetes mellitus with diabetic neuropathy, with long-term current use of insulin from Last 3 Months or Most Recently Relevant to Health Maintenance Results * (ABNORMAL) TSH with reflex (09/23/2021 1:09 PM EST) SCREENING PANEL: TSH 9.56(H) 0.40 - 5.00 uIU/mL [facility] 09/23/2021 1:09 PM EST 09/23/2021 2:16 PM EST Gallo Biswas MD LAB BLOOD ORDERABLES Leilani l Result Performing Organization Address [facility] Co de Phone Number [address] [address] * (ABNORMAL) Basic metabolic panel (09/23/2021 1:09 PM EST) SODIUM 136 135 - 145 mmol/L [facility] POTASSIUM 4.4 3.4 - 5.0 mmol/L [facility] CHLORIDE 104 98 - 108 mmol/L [facility] CO2 17(L) 23 - 32 mmol/L [facility] BUN 60(H) 8 - 25 mg/dL [facility] CREATININE 4.08(H) 0.60 - 1.50 mg/dL [facility] GLUCOSE 41(L) 70 - 110 mg/dL [facility] CALCIUM 8.6 8.5 - 10.5 mg/dL [facility] EGFR 14(L) >59 mL/min/1. 73m2 [facility] Comment:Estimated glomerular filtration rate calculated using the CKD-EPI equation. ANION GAP 15 3 - 17 mmol/L [facility] 09/23/2021 1:09 PM EST 09/23/2021 2:15 PM EST Gallo Biswas MD LAB BLOOD ORDERABLES Leilani l Result Performing Organization Address [facility] Co de Phone Number [address] [address] * (ABNORMAL) Hemoglobin A1c (08/06/2020 3:11 PM EDT) HEMOGLOBIN A1C 9.0(H) 4.3 - 6.4 % [facility] CALC MEAN BLD GLUC 212 mg/dL [facility] Comment: There is no established normal range for the CMBG (Calculated Mean Blood Glucose). A hemoglobin A1c < 7% is the recommended target for most people with diabetes. The CMBG for an A1c of 7% is 154 mg/dL. The diagnostic hemoglobin A1c level for diabetes is greater than or equal to 6.5% which is a CMBG greater than or equal to 140 mg/dL. 08/06/2020 3:11 PM EDT 08/06/2020 4:25 PM EDT us Ildefonso Trejo MD, MSc LAB BLOOD ORDERABLES Final Result [facility] [address] [place] [address] from Last 3 Months or Most Recently Relevant to Health Maintenance Insurance MEDICARE PART A & B [facility] MEDICARE SUPPLEMENT MEDICARE PART A & [place] [address] [place] [address] MEDICARE SUPPLEMENT MEDICARE PART A & B [facility] MEDICARE SUPPLEMENT MEDICARE PART A & B [facility] MEDICARE SUPPLEMENT MEDICARE PART A & B [facility] MEDICARE SUPPLEMENT MEDICARE PART A & B MEDICARE SUPPLEMENT MEDICARE PART A & B MEDICARE SUPPLEMENT MEDICARE PART A & B [facility] MEDICARE SUPPLEMENT MEDICARE PART A & B [facility] MEDICARE SUPPLEMENT Care Teams Job Hand Relationship Specialty Start Date End Date Matias Tan MD [address] [place] [id number] PCP - General Family Medicine 10/07/19 [place] [address] [email or web address] Consulting Provider Psychiatry 07/11/21 Additional Source Comments The information contained in this document represents components of the legal health record. It is not the complete legal health record.[facility]
--- OUTSIDE RECORDS SUMMARY | 2025-07-02 18:33 | XMS_ITS | Encounter Summary ---
Author Organization [facility], Address [address] [place] [address] Phone Care Team Providers Care Mold Mover Name Role Phone Matias Tan MD Primary Care Provider [phone]- [phone] Reason for Visit * Reason Comments Med Refill Encounter Details Date Type Department Care Team (Late st Contact Info) Description 09/24/2023 Refill [facility] [address] [place] [phone] Denys Mueller MD [address] [place] [address] Social History Tobacco Use Types [...] visit [facility] [address] [place] [address] documented as of this encounter Visit Diagnoses Not on filedocumented in this encounter Care Teams Mold Mover Relationship Specialty Start Date End Date Matias Tan MD [address] [place] [address] PCP - General Family Medicine 10/24/19 documented as of this encounter
--- OUTSIDE RECORDS SUMMARY | 2025-07-02 18:33 | XMS_ITS | Encounter Summary ---
Author Organization [facility] Address [address] [place] [address] Phone Care Team Providers Care Rn Clinical Review Name Role Phone Matias Tan MD Primary Care Provider + Maren Simon MD Unavailable +1- [phone] Encounter Details Date Type Department Care Team (Late st Contact Info) Description 09/23/2021 Procedure Pass [address] [place] [address] Social History Tobacco Use Types Packs/Day Years [...] filedocumented in this encounter Care Teams Rn Clinical Review Relationship Specialty Start Date End Date Matias Tan MD [address] [place] [id number] PCP - General Family Medicine 10/07/19 Maren Simon MD [address] [place] [address] [email or web address] Consulting Provider Psychiatry 07/11/21 documented as of this encounter Additional Source Comments The information contained in this document represents components of the legal health record. It is not the complete legal health record.[facility]
--- OUTSIDE RECORDS SUMMARY | 2025-07-02 18:33 | XMS_ITS | Encounter Summary ---
Author Organization [facility] Address [address] [place] [address] Phone Care Team Providers Care Welder Explosion Name Role Phone Matias Tan MD Primary Care Provider + Maren Simon MD Unavailable [phone]- [phone] Encounter Details Date Type Department Care Team (Late st Contact Info) Description 01/28/2022 Ancillary Orders [facility]Outside Imaging [address] [place], [place] [id number] System, Provider Not In, [place] [address] Social History Tobacco Use Types Packs/Day Years [...] as of this encounter Results * MRI Spine (Bone) Outside (No Interpretation) (09/24/2010 12:00 AM EST) Narrative SYSTEMGENERATED, DOCUMENTATION - 01/28/2022 2:35 PM EDT This study is for PACS storage only and not for interpretation. us Provider Not In System PhD IMG OUTSIDE IMAGING W /OUT INTERPRETATION Final Result documented in this encounter Visit Diagnoses Not on filedocumented in this encounter Care Teams Welder Explosion Relationship Specialty Start Date End Date Matias Tan MD [address] [place] [address] PCP - General Family Medicine 10/07/19 [place] [address] [email or web address] Consulting Provider Psychiatry 07/11/21 documented as of this encounter Additional Source Comments The information contained in this document represents components of the legal health record. It is not the complete legal health record.[facility]
[2025-07-02 18:42] LABS: COVID-19 Test Negative (Negative); IDNOW Serial# 55D5AD1C
[2025-07-02 18:44] LABS: Alanine Aminotransferase 10 U/L (0-40); Albumin Level 4.2 g/dL (3.5-5.0); Alkaline Phosphatase 96 U/L (39-117); Anion Gap 22 (12-20); Aspartate Amino Transferase 20 U/L (5-37); Blood Urea Nitrogen 53 mg/dL (9-16); Calcium 8.7 mg/dL (8.4-10.2); Carbon Dioxide 24 mmol/L (22-29); Chloride 96 mmol/L (96-108); Creatinine Clr Calc Pharmacy 7.7; Estimated Glomerular Filt Rate 7; Magnesium 2.0 mg/dL (1.6-2.6); Potassium 5.6 mmol/L (3.3-5.1); Sodium 136 mmol/L (135-145); Total Protein 6.8 g/dL (6.5-8.0)
[2025-07-02 18:44] LABS: IDNOW Serial# 58CA691E; Influenza B2 Negative (Negative)
--- NOTE | 2025-07-02 20:21 | ECG_ITS ---
Test Reason : SOB Blood Pressure : */* mmHG Vent. Rate : 76 BPM Atrial Rate : 76 BPM P-R Int : 158 ms QRS Dur : 84 ms QT Int : 424 ms P-R-T Axes : 57 18 3 degrees QTcB Int : 477 ms Normal sinus rhythm Normal ECG When compared with ECG of 28-May-2025 19:48, Nonspecific T wave abnormality no longer evident in Lateral leads Referred By: Kiran Oconnell Electronically Signed By: HOA KLEIN
[2025-07-02 20:35] VITALS: BP 166/84; PULSE 76; RESP 20; O2SAT 92
[2025-07-02 21:44] LABS: B Type Natriuretic Peptide 2626 pg/mL (<100)
--- NOTE | 2025-07-02 21:44 | PC.NURSE ---
Patient awake and alert. skin pale, warm, moist, resp even and non labored, speaking in full, clear sentences. patient reports acute onset of SOB starting at home with evening. denies SOB at this time. lungs CTA throughout. 92-95 on room air while awake, decreased to 85% on room air while sleeping, supplemental O2 applied. dialysis patient, reports dialysis MWF, urinates approximately every 3 days, positive bruit and thrill to left AV fistula. NSR tele.
[2025-07-02 21:45] LABS: Troponin-I High Sensitivity 7.5 ng/L (<3.5-35.0)
[2025-07-02 21:50] VITALS: O2SAT 85
[2025-07-02 22:03] VITALS: BP 174/87; PULSE 74; RESP 20; TEMP 36.9; O2SAT 92
[2025-07-03] VITALS (14 sets, daily range): BP systolic 153–180; BP diastolic 75–91; PULSE 78–106; RESP 16–21; TEMP 36.4–37.2; O2SAT 88–97; BMI 26.1; BMI 24.1
[2025-07-03] MEDS: Furosemide 20 MG/2 ML VIAL IVPUSH (00:06)
[2025-07-03 00:19] LABS: D Dimer High Sensitivity 687 NG/ML
[2025-07-03] MEDS: iohexoL 350 MG/ML 100 ML INFUS..BTL 65 ML IV (01:56)
--- NOTE | 2025-07-03 04:02 | PC.NURSE ---
Resumed care of patient at 0300, he requests PO intake at this time from [facility], this RN okay'd ice chips until CT returned. Pt remains on 3L NC, he is laying flat in bed per request, remains on monitors, O2 remains 93-94% on O2. Pt reporting pain head to toe, needing to be redirected in orientation, asking repeat questions at this time. Awaiting dispo and CT results at this time. Call [place]atham within reach.
--- NOTE | 2025-07-03 04:25 | PM.IMHP ---
History of Present Illness Date of Service: 07/03/25 Attending physician on admission: Dagoberto Tejada Chief Complaint: Dyspnea Pt is a 70 yo male with PMH ESRD on dialysis M,W,F, HTN, IDDM, Hypothyrpoidism, Cardiac Arrest with ROSC 02/2025, HFpEF, HLD, anxiety presents to ED with worsening dyspnea since early AM hours per triage note. Pt's last dialysis was this past Thursday completed the treatment. Patient states his dry weight is estimated at 68.4. Patient has not missed any dialysis treatments in some time. Patient states he is here because he is in chronic pain constantly. Patient is on Dilaudid orally q.3 hours p.r.n. for pain. Medication reconciliation was reviewed with patient's spouse by nursing over the phone. Pharmacy has yet to complete the med rec. Patient denies any current chest pain or shortness of breath at rest. Patient is currently wearing oxygen 3 L and is not normally on oxygen at home. When reviewing patient's past medical history in correlation with clinical findings, patient denies that he has heart failure or evidence of fluid volume overload. Patient states he makes minimal amount of urine. Work up in the ED included Ddimer which was elevated, 687 and CTA negative for PE. COVID and Flu testing negative. CT noted for interstitial edema and small B pleural effusions, negative for PNA. Pt received 1 dose of IV Lasix in the ED. Potassium 5.6. EKG negative for peaked T-waves. QTC 477. MG 2.0. BNP 2626. ED provider did message nephrology but did not think that patient required acute dialysis at this time. Patient lives with chronic pain and is on Dilaudid 4 mg q.3 hours PRN for pain. Patient states he is prescribed this from his PCP and has seen a brush painter in the past. This could explain patient's generalized body aches reported by ED provider on presentation to the ED. Review of Systems Review of Systems: Patient currently denies any chest pain, shortness of breath at rest but is reporting upper and lower extremity chronic pain issues. Patient has expressed to nursing that he was wanting to leave AMA to go home and be with his . Patient states he makes minimal amount of urine. Patient appeared to be cognitive and have his dry weight which is 68.4. Patient came in with a weight of 68.039. Patient denies any recent falls or injury. Yes all other systems are reviewed and are negative [facility] Medical History ESRD needing dialysis Hypothyroidism Influenza A CHF (congestive heart failure) Acute anemia Multifactorial gait disorder Pneumonia End stage renal disease on dialysis Occult blood positive stool Anemia Internal jugular vein thrombosis Abnormality of gait ESRD needing dialysis Secondary hyperparathyroidism (of renal origin) Anemia in chronic kidney disease DONIS (acute kidney injury) Diabetes Kidney failure HTN (hypertension) Cognitive capacity: Alert and orientated x3 Functional capacity: wheelchair bound Social History Household Members: Spouse Housing: Unknown / Unable to assess Are you a primary rental boats caretaker to a significant other at home: No Do you presently have visiting nurse or other home services: No Alcohol intake: former Comment: sitter in place Patient Tobacco Use Status: Never used Tobacco Cigarette Packs Per Day: 0 Cigarettes Per Day: 0 Years Smoked: NA e-Cigarette/Vaping Use: Never Used Second Hand Smoke Exposure: No Advance Directives: Yes Advance Directives on File: Yes Advance Directives Date on File: 09/07/23 Nutrition Risks: No Nutritional Risk service: No Ebola Risk: Travel/Contact With Anyone From Affected Area/s: No Has Patient Experienced Ebola Symptoms: No Meds Allergies Allergy/AdvReac Type Severity Reaction Status Date / Time Penicillins (PENICILLINS) Allergy Unknown RASH Verified 07/02/25 18:02 tramadol (From ULTRAM) Allergy Unknown RASH Verified 07/02/25 18:02 trazodone (TRAZODONE) Allergy Unknown PRIAPISM Verified 07/02/25 18:02 risperidone (RISPERIDONE) AdvReac Severe dizzy, EPS Verified 07/02/25 18:02 Active Medications: Current Medications Acetaminophen (Acetaminophen 325 Mg Tablet) 650 mg PO Q6H PRN PRN Reason: Pain, Mild 1-3,fever,headache Albuterol/Ipratropium (Albuterol/Iprat 2.5/0.5mg 3 Ml Ampul.Neb) 3 ml INHALE Q4H PRN PRN Reason: Shortness of Breath/Wheezing Calcium Carbonate (Calcium Carbonate 750 Mg Tab.Chew) 750 mg PO Q4H PRN PRN Reason: Heartburn Heparin Sodium (Porcine) (Heparin Sodium,Porcine 5,000 Unit/Ml Vial) 5,000 unit SUBCUT Q12H FRANCINE Magnesium Hydroxide (Milk Of Magnesia 30 Ml Oral.Susp) 30 ml PO DAILY PRN PRN Reason: Constipation Melatonin (Melatonin 3 Mg Tablet) 6 mg PO BEDTIME PRN PRN Reason: Insomnia Ondansetron HCl (Ondansetron Hcl 4 Mg/2 Ml Vial) 4 mg IVPUSH Q8H PRN PRN Reason: Nausea and Vomiting Polyethylene Glycol (Polyethylene Glycol 3350 17 Gm Powd.Pack) 17 gm PO DAILY PRN PRN Reason: Constipation Senna (Sennosides 8.6 Mg Tablet) 17.2 mg PO BEDTIME FRANCINE Sodium Chloride (0.9 % Sodium Chloride Flush 3 Ml Syringe) 3 ml IVFLUSH [facility] Home Medications ?Medication ?Instructions ?Recorded ?Confirmed ?Last Taken ?Type blood sugar diagnostic (FreeStyle 07/11/21 10/30/24 10/30/24 09:00 History Lite Strips) levothyroxine 137 mcg tablet 137 mcg PO DAILY@0607/11/21 07/03/25 07/03/25 History pen needle, diabetic 31 gauge x 07/11/21 10/30/24 10/30/24 09:00 History 5/16 (BD Ultra-Fine Short Pen Needle) atorvastatin 40 mg tablet 40 mg PO BEDTIME 02/22/24 07/03/25 07/02/25 History sodium zirconium cyclosilicate 10 10 g PO SUTUTHSA@0900 06/19/24 07/03/25 07/03/25 History gram oral powder packet (Lokelma) insulin lispro 100 unit/mL See Protocol subcut TIDAC PRN 10/30/24 05/29/25 04/06/25 History subcutaneous pen (Humalog KwikPen Blood Glucose (U-100) Insulin) dextroamphetamine-amphetamine 20 20 mg PO BID PRN Mood 02/24/25 07/03/25 07/03/25 History mg tablet (Adderall) alprazolam 0.5 mg tablet 0.5 - 1 mg PO DAILY PRN anxiety 04/07/25 07/03/25 05/28/25 History attack alprazolam 2 mg tablet 2 mg PO BID 04/07/25 07/03/25 07/03/25 History amlodipine 5 mg tablet 5 mg PO BID 04/07/25 07/03/25 07/03/25 History losartan 100 mg tablet 100 mg PO DAILY 04/07/25 07/03/25 07/03/25 History K2-D3 Max 1 tab PO SUTUTHSA 07/03/25 07/03/25 07/03/25 History hydralazine 50 mg tablet 50 mg PO TID 07/03/25 07/03/25 07/03/25 History sevelamer carbonate 800 mg tablet 1,600 mg PO TID 07/03/25 07/03/25 Unknown History Physical Exam Vital Signs and Narrative: Vital Signs: Last Vital Signs Temp 98.9 F 07/03/25 00:07 Pulse 78 07/03/25 02:21 Resp 21 H 07/03/25 02:21 BP 176/87 H 07/03/25 02:21 Pulse Ox 92 07/03/25 02:21 O2 Del Method Nasal Cannula 07/03/25 02:21 O2 Flow Rate 3 07/03/25 02:21 BMI result Body Mass Index 24.2 Alert and orientated X3, verbal, able to follow commands Neuro: CN II-X11 intact, no deficits, visual acuity intact EYES: PERRLA, EOM intact, sclera nonicteric ENT: hearing intact, no issues with swallowing, uvula midline, lips moist, nares patent no epistaxis Cardiac: S1 S2 RRR, no murmur, no JVD, no edema in Lower ext Pulmonary: lungs diminished b Abdominal: BS active in all 4 quadrants, no guarding, tenderness, rebounding MSK: strength 3/5 upper and lower extremities : no CVA tenderness no bladder distension Extremities: no edema in lower extremities, PT and DP pulses palpable +2 Psych: mood stable, judgement and insight fair skin: no new rashes or lesions Results Labs 07/02/25 18:23 07/02/25 18:23 Labs: Laboratory Results - last 24 hr 07/02/25 07/02/25 07/02/25 18:22 18:23 18:26 MCV 92.7 MCH 31.3 MCHC 33.7 RDW 16.7 H Plt Count 191 MPV 9.6 Immature Gran % (Auto) 0.4 Neut % (Auto) 72.4 Lymph % (Auto) 10.1 L [place] % (Auto) 9.2 Eos % (Auto) 7.2 H Baso % (Auto) 0.7 Lymph # (Auto) 1.0 L [place] # (Auto) 0.9 Eos # (Auto) 0.7 H Baso # (Auto) 0.1 Abs Immat Gran (auto) 0.04 H Absolute Neuts (auto) 7.3 Absolute Nucleated RBC 0.000 Nucleated RBC % (auto) 0.0 D-Dimer High Sensitivty VBG pH 7.49 H VBG pCO2 36 VBG pO2 85 VBG HCO3 27 H VBG O2 Saturation 97.0 VBG Base Excess 4.4 Anion Gap 22 H Estim Creat Clear Calc 7.7 Estimated GFR 7 Random Glucose 123 H Calcium 8.7 Magnesium 2.0 Total Bilirubin 0.7 AST 20 ALT 10 Alkaline Phosphatase 96 B-Natriuretic Peptide Total Protein 6.8 Albumin 4.2 COVID-19 (SUNITHA) Negative COVID-19 Clin Com See Note Influenza Type A (SEBLE) Negative Influenza Type B (SEBLE) Negative Influenza A & B Note See Note 07/02/25 07/03/25 21:17 00:02 MCV MCH MCHC RDW Plt Count MPV Immature Gran % (Auto) Neut % (Auto) Lymph % (Auto) [place] % (Auto) Eos % (Auto) Baso % (Auto) Lymph # (Auto) [place] # (Auto) Eos # (Auto) Baso # (Auto) Abs Immat Gran (auto) Absolute Neuts (auto) Absolute Nucleated RBC Nucleated RBC % (auto) D-Dimer High Sensitivty 687 VBG pH VBG pCO2 VBG pO2 VBG HCO3 VBG O2 Saturation VBG Base Excess Anion Gap Estim Creat Clear Calc Estimated GFR Random Glucose Calcium Magnesium Total Bilirubin AST ALT Alkaline Phosphatase B-Natriuretic Peptide 2626 H Total Protein Albumin COVID-19 (SUNITHA) COVID-19 Clin Com Influenza Type A (SEBLE) Influenza Type B (SEBLE) Influenza A & B Note ECG Attestation: I personally reviewed and interpreted this ECG as follows: (NSR< [id number]) Prior ECG tracings: available for review Imaging Radiologist's Impressions: CTA IMPRESSION: 1. No pulmonary embolism. 2. Bilateral interlobular septal line thickening consistent with interstitial edema. 3. Small bilateral pleural effusions. 4. Chronic findings as above. Assessment and Plan (1) Acute hypoxic respiratory failure: Status: Acute (2) Acute on chronic heart failure with preserved ejection fraction (HFpEF): Status: Acute (3) ESRD on dialysis: Status: Acute Plan Pt is a 70 yo male with PMH ESRD on dialysis M,W,F, HTN, IDDM, Hypothyrpoidism, Cardiac Arrest with ROSC 02/2025, HFpEF, HLD, anxiety presents to ED with worsening dyspnea since early AM hours per triage note. Pt's last dialysis was this past Thursday completed the treatment. Patient states his dry weight is estimated at 68.4. Patient has not missed any dialysis treatments in some time. Patient states he is here because he is in chronic pain constantly. Patient is on Dilaudid orally q.3 hours p.r.n. for pain. Acute Hypoxic Respiratory Failure No evidence of PNA or PE via CT scan Likely fluid volume overload with ESRD and HFpEF (no valvular disease last echo ) Oxygen, wean as tolerated, as below may need Home O2 Study Supportive care Likely pt will not respond to diuretics due to ESRD with low urine output Incentive spirometer ordered Acute on Chronic HFpEF/ Unclear if patient is compliant with fluid allowance with ESRD noting patient makes minimal amount of urine Interstitial edema with small bilateral pleural effusions noted via CTA BNP 2626 Patient has required oxygen via nasal cannula this admission, does not use oxygen at home - may need to consider home O2 study VBG somewhat reassuring 7.49, 36, 85, 27, compared to previous admissions Daily weights ordered Measure I's and O's, bladder scan ordered noting Lasix administration in the ED with minimal output Continue losartan and hydralazine Low-salt diet Insight into CHF for pt appears limited, denied having hx of HF ESRD on dialysis Plan is for dialysis in the a.m. Nephrology consulted Patient normally dialyzes at [facility] Low K diet, continue binders with meals once med rec completed Hyperkalemia [facility], and Saturdays Telemetry BMP in AM Dialysis planned for Thursday a.m. Chronic pain Dilaudid PRN Pt states he has seen pain operations and maintenance specialist in the past PT eval ordered as patient appears to have decreased mobility overall IDDM Sliding scale insulin Diabetic diet HTN Continue losartan and hydralazine Low Na diet HLD Continue statin LFTs are stable Hypothyroidism Continue levothyroxine Will check TSH to ensure compliance DVT Prophylaxis: heparin SC MED REC PENDING FULL CODE Quality Stroke Does the patient have a stroke diagnosis?: No Reason for No Anti-thrombotic by Day Two: N/A - Med Ordered VTE Prior VTE?: No VTE Risk Level:: Medical - moderate - high VTE Device Contraindication: N/A - Device Ordered VTE Drug Contraindication: N/A - Med Ordered
[2025-07-03 06:11] LABS: MANUAL DIFF FLAG NO
[2025-07-03 06:14] LABS: Hematocrit 36.1 % (42.0-52.0); Hemoglobin 12.0 g/dl (14.0-18.0); Imm Gran Abs Auto 0.05 X10*3/uL (0.00-0.03); Imm Gran Pct Auto 0.4 % (0.0-0.4); Lymphocytes Absolute Auto 1.0 X10*3/uL (1.2-4.9); Mean Corpuscular HGB Conc 33.2 g/dl (31.0-36.0); Mean Corpuscular Hemoglobin 30.8 pg (27.0-33.0); Mean Corpuscular Volume 92.8 fL (80.0-98.0); NRBC Abs Auto 0.000 X10*3/uL (0.0-0.012); NRBC Pct Auto 0.0 /100WBC (0.0-0.2); Platelet Count 183 X10*3/uL (160-400); Red Blood Count 3.89 X10*6/uL (4.60-5.80); White Blood Count 12.4 X10*3/uL (4.8-10.8)
[2025-07-03] MEDS: 0.9 % Sodium Chloride Flush 3 ML SYRINGE IVFLUSH ×2 (06:20→21:25)
[2025-07-03 06:40] LABS: Anion Gap 24 (12-20); Blood Urea Nitrogen 57 mg/dL (9-16); Calcium 8.6 mg/dL (8.4-10.2); Carbon Dioxide 21 mmol/L (22-29); Chloride 96 mmol/L (96-108); Creatinine Clr Calc Pharmacy 7.3; Estimated Glomerular Filt Rate 6; Potassium 5.5 mmol/L (3.3-5.1); Sodium 135 mmol/L (135-145)
[2025-07-03 06:56] LABS: Free T4 (Free Thyroxine) 1.11 ng/dL (0.71-1.85); Thyroid Stimulating Hormone 4.33 uIU/mL (0.32-4.0)
[2025-07-03] MEDS: Sevelamer Carbonate Tablet 800 MG TABLET 1600 MG PO ×2 (07:58→12:19)
[2025-07-03 08:07] LABS: Glucose, Whole Blood 124 mg/dL (60-115)
[2025-07-03 08:42] LABS: Appearance Urine Clear; Glucose Urine UA 100 mg/dL (Negative); PH >= 9.0 (5.0-9.0); Specific Gravity - Urine <= 1.005 (1.005-1.025); UMIC TRIGGER UACC YES
--- NOTE | 2025-07-03 09:20 | P.CONNP_ITS ---
History of Present Illness Reason for Consult Consult date: 07/03/25 Chief Complaint Chief complaint: ESRD fluid overload History of Present Illness Narrative: Patient is a 70 y/o male with a medical history of ESRD on HD (M,W,F), DM, hypothyroidism, HLD, anemia of chronic disease, GERD, and mood disorder who presented this a.m. with shortness of breath to the ED. Nephrology consulted for management of dialysis while inpatient. Pt reports he has not missed any HD sessions. patient denies shortness of breath, chest pain- reports breathing feels better now than it did when he came in reports he did not miss any dialysis sessions, nor did he drink more fluid than usual patient denies new pain (reports chronic pain syndrome ongoing). denies new tremors, nausea, vomiting, muscle cramping. Reports he continues to void every few days. Review of Systems Review of Systems Yes all other systems are reviewed and are negative PMFSH Past Medical History Medical History ESRD needing dialysis Hypothyroidism Influenza A CHF (congestive heart failure) Acute anemia Multifactorial gait disorder Pneumonia End stage renal disease on dialysis Occult blood positive stool Anemia Internal jugular vein thrombosis Abnormality of gait ESRD needing dialysis Secondary hyperparathyroidism (of renal origin) Anemia in chronic kidney disease DONIS (acute kidney injury) Diabetes Kidney failure HTN (hypertension) Social History Social History Household Members: Spouse Housing: Unknown / Unable to assess Are you a primary career counselor to a significant other at home: No Do you presently have visiting nurse or other home services: No Alcohol intake: former Comment: sitter in place Patient Tobacco Use Status: Never used Tobacco Cigarette Packs Per Day: 0 Cigarettes Per Day: 0 Years Smoked: NA e-Cigarette/Vaping Use: Never Used Second Hand Smoke Exposure: No Advance Directives: Yes Advance Directives on File: Yes Advance Directives Date on File: 09/07/23 Nutrition Risks: No Nutritional Risk service: No Travel History Ebola Risk: Travel/Contact With Anyone From Affected Area/s: No Has Patient Experienced Ebola Symptoms: No Meds Allergies Allergy/AdvReac Type Severity Reaction Status Date / Time Penicillins (PENICILLINS) Allergy Unknown RASH Verified 07/02/25 18:02 tramadol (From ULTRAM) Allergy Unknown RASH Verified 07/02/25 18:02 trazodone (TRAZODONE) Allergy Unknown PRIAPISM Verified 07/02/25 18:02 risperidone (RISPERIDONE) AdvReac Severe dizzy, EPS Verified 07/02/25 18:02 Active Medications: Current Medications Acetaminophen (Acetaminophen 325 Mg Tablet) 650 mg PO Q6H PRN PRN Reason: Pain, Mild 1-3,fever,headache Last Admin: 07/03/25 06:18 Dose: 650 mg Albuterol/Ipratropium (Albuterol/Iprat 2.5/0.5mg 3 Ml Ampul.Neb) 3 ml INHALE Q4H PRN PRN Reason: Shortness of Breath/Wheezing Alprazolam (Alprazolam 0.5 Mg Tablet) 2 mg PO BID [facility] Last Admin: 07/03/25 07:59 Dose: 2 mg Amlodipine Besylate (Amlodipine Besylate 5 Mg Tablet) 5 mg PO BID [facility]; Protocol Last Admin: 07/03/25 07:59 Dose: 5 mg Amphetamine/Dextroamphetamine (Amphetamine Mixed Salts 20 Mg Tablet) 20 mg PO BID PRN PRN Reason: Mood Atorvastatin Calcium (Atorvastatin Calcium 40 Mg Tablet) 40 mg PO BEDTIME FRANCINE Calcium Carbonate (Calcium Carbonate 750 Mg Tab.Chew) 750 mg PO Q4H PRN PRN Reason: Heartburn Dextrose (Dextrose 50 % 25 Gm/50 Ml Syringe) 25 gm IVPUSH Q15M PRN; Protocol PRN Reason: per Hypoglycemia Standing Ord. Glucose (Glucose Gel 15 Gm Gel..Gram.) 15 gm PO Q15M PRN; Protocol PRN Reason: per Hypoglycemia Standing Ord. Heparin Sodium (Porcine) (Heparin Sodium,Porcine 5,000 Unit/Ml Vial) 5,000 unit SUBCUT Q12H [facility] Last Admin: 07/03/25 08:00 Dose: 5,000 unit Hydralazine HCl (Hydralazine Hcl 50 Mg Tablet) 50 mg PO TID [facility]; Protocol Last Admin: 07/03/25 07:58 Dose: 50 mg Hydromorphone HCl (Hydromorphone Hcl 2 Mg Tablet) 4 mg PO Q3H PRN PRN Reason: Pain, Severe (Pain Scale 7-10) Last Admin: 07/03/25 13:29 Dose: 4 mg Insulin Human Lispro (Insulin Lispro 100 Unit/Ml 3 Ml Vial) 0 unit SUBCUT QIDACHS [facility]; Protocol Last Admin: 07/03/25 12:19 Dose: Not Given Levothyroxine Sodium (Levothyroxine Sodium 112 Mcg Tablet) 112 mcg PO DAILY@06 [facility] Last Admin: 07/03/25 07:56 Dose: 112 mcg Levothyroxine Sodium (Levothyroxine Sodium 25 Mcg Tablet) 25 mcg PO DAILY@0630 [facility] Last Admin: 07/03/25 07:57 Dose: 25 mcg Losartan Potassium (Losartan Potassium 50 Mg Tablet) 100 mg PO DAILY [facility]; Protocol Last Admin: 07/03/25 07:58 Dose: 100 mg Magnesium Hydroxide (Milk Of Magnesia 30 Ml Oral.Susp) 30 ml PO DAILY PRN PRN Reason: Constipation Melatonin (Melatonin 3 Mg Tablet) 6 mg PO BEDTIME PRN PRN Reason: Insomnia Ondansetron HCl (Ondansetron Hcl 4 Mg/2 Ml Vial) 4 mg IVPUSH Q8H PRN PRN Reason: Nausea and Vomiting Polyethylene Glycol (Polyethylene Glycol 3350 17 Gm Powd.Pack) 17 gm PO DAILY PRN PRN Reason: Constipation Senna (Sennosides 8.6 Mg Tablet) 17.2 mg PO BEDTIME [facility] Sevelamer Carbonate (Sevelamer Carbonate Tablet 800 Mg Tablet) 1,600 mg PO TIDWM [facility] Last Admin: 07/03/25 12:19 Dose: 1,600 mg Sodium Chloride (0.9 % Sodium Chloride Flush 3 Ml Syringe) [facility] Last Admin: 07/03/25 06:20 Dose: 3 ml Sodium Zirconium Cyclosilicate (Sodium Zirconium Cyclosilicate 10 Gm Powd.Pack) 10 gm PO SUTUTHSA@0900 [facility] Home Medications ?Medication ?Instructions ?Recorded ?Confirmed ?Last Taken ?Type blood sugar diagnostic (FreeStyle 07/11/21 10/30/24 0 10/30/24 09:00 History Lite Strips) levothyroxine 137 mcg tablet 137 mcg PO DAILY@0600 07/03/25 07/03/25 History pen needle, diabetic 31 gauge x 07/11/21 10/30/2410/12 09:00 History 5/16 (BD Ultra-Fine Short Pen Needle) atorvastatin 40 mg tablet 40 mg PO BEDTIME 02/22/2407/02/25 History alprazolam 0.5 mg tablet 0.5 - 1 mg PO DAILY PRN anxi ety 04/07/25 07/03/25 05/28/25 History attack alprazolam 2 mg tablet 2 mg PO BID 04/07/25 5 07/03/25 History amlodipine 5 mg tablet 5 mg PO BID 04/07/25 5 07/03/25 History losartan 100 mg tablet 100 mg PO DAILY 04/07/2507/03/25 History hydralazine 50 mg tablet 50 mg PO TID 07/03/2507/03/25 History metoprolol succinate 100 mg 100 mg PO DAILY 07/03/25 0 07/03/25 Unknown History tablet,extended release 24 hr sevelamer carbonate 800 mg tablet 1,600 mg PO TID 06/1907/03/25 Unknown History Physical Exam Vital Signs: Last Vital Signs Temp 98.0 F 07/03/25 09:50 Pulse 79 07/03/25 09:50 Resp 20 07/03/25 09:50 BP 168/84 H 07/03/25 09:50 Pulse Ox 97 07/03/25 09:35 O2 Del Method Room Air 07/03/25 09:35 O2 Flow Rate 4 07/03/25 08:06 BMI result Body Mass Index 26.1 Const General: no acute distress and awake Resp Effort & Inspection: normal respiratory effort and able to speak in complete sentences Auscultation: clear to auscultation bilaterally Cardio Rate: regular rate Rhythm: regular rhythm Heart sounds: S1 normal heart sound present and S2 normal heart sound present GI Palpation (GI): Soft to palpation and nontender Skin Rashes: no rashes Extrem General: No edema Results Lab Results 07/03/25 05:04 07/03/25 05:04 Lab results: Chemistry 07/02/25 07/03/25 18:23 05:04 Sodium 136 135 Potassium 5.6 H 5.5 H Carbon Dioxide 24 21 L BUN 53 H 57 H Creatinine 7.87 H* 8.34 H* Calcium 8.7 8.6 Hematology 07/02/25 07/03/25 18:23 05:04 WBC 10.1 12.4 H Hgb 11.1 L 12.0 L Plt Count 191 183 Urinalysis 07/03/25 08:35 Urine Color Yellow Urine Appearance Clear Urine pH >= 9.0 Ur Specific [place] <= 1.005 Urine Protein 100 (2+) H Urine Glucose (UA) 100 H Urine Ketones Negative Urine Blood Negative Urine Nitrite Negative Ur Leukocyte Esterase Negative Urine RBC 0-2 Urine WBC 0-5 Ur Squamous Epith Cells 0-2 Hyaline Casts 0-2 Assessment and Plan (1) ESRD on dialysis: Status: Acute Plan Patient with ESRD on HD MWF here with shortness of breath shortness of breath has improved, no dialysis yet today Will get HD today as per his outpatient schedule H&H 12 &36, no indication for procrit at this time potassium 5.5, otherwise electrolytes unremarkable - no need for lokelma, will have HD today no metabolic acidosis at this time recommend 1.5L/24hr fluid restriction, low sodium, low potassium, low phosphorus diet Discussed with Dr Quinn. Procedures Date of Service Date of Service: 07/03/25
--- NOTE | 2025-07-03 11:03 | PHA.MEDREC ---
Addendum entered by Efren Velazquez PharmD 07/03/25 11:06: reviewed Original Note: Pharmacy Consult ? Medication Reconciliation Pharmacy has reviewed the medication reconciliation done by nursing. Patient states he is not taking Atenolol 100 mg, Adderall 20 mg, Vitamin D3, Lokelma 10 g, and Midodrine 10 mg. Patient had all his medications yesterday.
[2025-07-03 12:23] LABS: Glucose, Whole Blood 120 mg/dL (60-115)
--- NOTE | 2025-07-03 14:28 | MHC.CM.PN ---
pt lives with is active with [facility] and goes to dialysis [facility] pt has own transport home
[2025-07-03 16:07] LABS: Glucose, Whole Blood 123 mg/dL (60-115)
--- NOTE | 2025-07-03 17:39 | PM.EVENT ---
Event Note Date of Service: 07/03/25 Event Note: Pt admitted to the hospital for acute hypoxia thought secondary to volume overload from ESRD HD. Agree with HPI assessment and plan. Pt seen and evaluated this morning where he is noted to be walking around his ED bed looking for his ?coin folder?. Pt is otherwise alert and oriented to self, place, time, and situation. Thinks he was perhaps dreaming that he brought his coin collection to the hospital. Pt has no acute medical complaints. Of note though, pt appears unsteady on his feet. We will get PT evaluation prior to discharge. Pt denies any SOB or difficulty breathing. Currently not on oxygen. Time Spent With Patient Time: Total time managing care of this patient today ____ minutes.
[2025-07-03 21:16] LABS: Glucose, Whole Blood 134 mg/dL (60-115)
[2025-07-04 03:05] VITALS: BP 158/71; PULSE 84; RESP 19; TEMP 36.2; O2SAT 98
[2025-07-04 06:00] VITALS: BMI 24.1
[2025-07-04 07:07] LABS: Glucose, Whole Blood 105 mg/dL (60-115)
[2025-07-04 07:39] VITALS: BP 160/70; PULSE 78; RESP 17; TEMP 36.8; O2SAT 99
[2025-07-04] MEDS: Metoprolol Succinate ER 100 MG TAB.ER.24H PO (08:36)
[2025-07-04] MEDS: Sevelamer Carbonate Tablet 800 MG TABLET 1600 MG PO ×3 (08:36→16:50)
[2025-07-04 11:08] LABS: Glucose, Whole Blood 125 mg/dL (60-115)
[2025-07-04 11:24] VITALS: BP 138/68; PULSE 73; RESP 18; TEMP 36.3; O2SAT 97
--- NOTE | 2025-07-04 12:30 | PC.NURSE ---
Patient reported rash/itchiness to whole body, especially to upper and lower extremities. Dry skin with scratch parry noted upon assessment. Patient does not take any medication for itchiness but states it does get worse after dialysis. Provider notified, medication ordered and administered.
[2025-07-04 15:16] VITALS: BP 143/74; PULSE 75; RESP 18; TEMP 36.4
--- NOTE | 2025-07-04 16:19 | HO.PM.IMPN ---
Subjective Subjective Date of Service: 07/04/25 Interval History: No acute issues overnight Review of Systems Denies chest pain Denies shortness of breath Denies nausea vomiting diarrhea Denies fever and chill Physical Exam Vital Signs: Vital Signs: Last Vital Signs Temp 97.5 F 07/04/25 15:16 Pulse 75 07/04/25 15:16 Resp 18 07/04/25 15:16 BP 143/74 H 07/04/25 15:16 Pulse Ox 97 07/04/25 11:24 O2 Del Method Nasal Cannula 07/04/25 15:16 O2 Flow Rate 3 07/04/25 15:16 BMI result Body Mass Index 24.1 Const: Other: Awake alert no acute distress Resp: Other: Clear to auscultation bilaterally no rales rhonchi or wheezes Cardio: Other: No S4; positive S1-S2; no S3 murmurs rubs or gallops GI: Other: Soft nontender nondistended normoactive bowel sounds Extrem: Other: No edema bilaterally Objective Data Active Medications Acetaminophen (Acetaminophen 325 Mg Tablet) 650 mg PO Q6H PRN PRN Reason: Pain, Mild 1-3,fever,headache Last Admin: 07/03/25 06:18 Dose: 650 mg Documented By: CHARLIE Albuterol/Ipratropium (Albuterol/Iprat 2.5/0.5mg 3 Ml Ampul.Neb) 3 ml INHALE Q4H PRN PRN Reason: Shortness of Breath/Wheezing Alprazolam (Alprazolam 0.5 Mg Tablet) 2 mg PO BID [facility] Last Admin: 07/04/25 08:35 Dose: 2 mg Documented By: FREDY Amlodipine Besylate (Amlodipine Besylate 5 Mg Tablet) 5 mg PO BID [facility]; Protocol Last Admin: 07/04/25 08:36 Dose: 5 mg Documented By: FREDY Amphetamine/Dextroamphetamine (Amphetamine Mixed Salts 20 Mg Tablet) 20 mg PO BID PRN PRN Reason: Mood Atorvastatin Calcium (Atorvastatin Calcium 40 Mg Tablet) 40 mg PO BEDTIME [facility] Last Admin: 07/03/25 21:24 Dose: 40 mg Documented By: JHON Calcium Carbonate (Calcium Carbonate 750 Mg Tab.Chew) 750 mg PO Q4H PRN PRN Reason: Heartburn Dextrose (Dextrose 50 % 25 Gm/50 Ml Syringe) 25 gm IVPUSH Q15M PRN; Protocol PRN Reason: per Hypoglycemia Standing Ord. Glucose (Glucose Gel 15 Gm Gel..Gram.) 15 gm PO Q15M PRN; Protocol PRN Reason: per Hypoglycemia Standing Ord. Heparin Sodium (Porcine) (Heparin Sodium,Porcine 5,000 Unit/Ml Vial) 5,000 unit SUBCUT Q12H [facility] Last Admin: 07/04/25 08:36 Dose: 5,000 unit Documented By: FREDY Hydralazine HCl (Hydralazine Hcl 50 Mg Tablet) 50 mg PO TID [facility]; Protocol Last Admin: 07/04/25 08:35 Dose: 50 mg Documented By: FREDY Hydromorphone HCl (Hydromorphone Hcl 2 Mg Tablet) 4 mg PO Q3H PRN PRN Reason: Pain, Severe (Pain Scale 7-10) Last Admin: 07/04/25 11:01 Dose: 4 mg Documented By: FREDY Insulin Human Lispro (Insulin Lispro 100 Unit/Ml 3 Ml Vial) 0 unit SUBCUT QIDACHS [facility]; Protocol Last Admin: 07/04/25 11:22 Dose: Not Given Documented By: FREDY Non-Admin Reason: No Insulin Coverage Levothyroxine Sodium (Levothyroxine Sodium 112 Mcg Tablet) 112 mcg PO DAILY@0630 [facility] Last Admin: 07/04/25 05:47 Dose: 112 mcg Documented By: JHON Levothyroxine Sodium (Levothyroxine Sodium 25 Mcg Tablet) 25 mcg PO DAILY@0630 [facility] Last Admin: 07/04/25 05:47 Dose: 25 mcg Documented By: JHON Losartan Potassium (Losartan Potassium 50 Mg Tablet) 100 mg PO DAILY [facility]; Protocol Last Admin: 07/04/25 08:35 Dose: 100 mg Documented By: FREDY Magnesium Hydroxide (Milk Of Magnesia 30 Ml Oral.Susp) 30 ml PO DAILY PRN PRN Reason: Constipation Melatonin (Melatonin 3 Mg Tablet) 6 mg PO BEDTIME PRN PRN Reason: Insomnia Metoprolol Succinate (Metoprolol Succinate Er 100 Mg Tab.Er.24h) 100 mg PO DAILY [facility]; Protocol Last Admin: 07/04/25 08:36 Dose: 100 mg Documented By: FREDY Ondansetron HCl (Ondansetron Hcl 4 Mg/2 Ml Vial) 4 mg IVPUSH Q8H PRN PRN Reason: Nausea and Vomiting Polyethylene Glycol (Polyethylene Glycol 3350 17 Gm Powd.Pack) 17 gm PO DAILY PRN PRN Reason: Constipation Senna (Sennosides 8.6 Mg Tablet) 17.2 mg PO BEDTIME [facility] Last Admin: 07/03/25 21:24 Dose: 17.2 mg Documented By: JHON Sevelamer Carbonate (Sevelamer Carbonate Tablet 800 Mg Tablet) 1,600 mg PO TIDWM [facility] Last Admin: 07/04/25 12:26 Dose: 1,600 mg Documented By: FREDY Sodium Chloride (0.9 % Sodium Chloride Flush 3 Ml Syringe) 3 ml IVFLUSH QSHIFT [facility] Last Admin: 07/04/25 08:36 Dose: Not Given Documented By: FREDY Non-Admin Reason: Previously Administered Sodium Zirconium Cyclosilicate (Sodium Zirconium Cyclosilicate 10 Gm Powd.Pack) 10 gm PO SUTUTHSA@0900 [facility] Last Admin: 07/04/25 08:37 Dose: 10 gm Documented By: FREDY Labs 07/03/25 05:04 07/03/25 05:04 Labs: Laboratory Results - last 24 hr 07/03/25 07/04/25 07/04/25 21:13 07:04 11:00 POC Glucose 134 H 105 125 H Assessment and Plan (1) Acute hypoxic respiratory failure: Status: Acute (2) ESRD on dialysis: Status: Acute (3) Acute on chronic heart failure with preserved ejection fraction (HFpEF): Status: Acute Plan Pt is a 70 yo male with PMH ESRD on dialysis M,W,F, HTN, IDDM, Hypothyrpoidism, Cardiac Arrest with ROSC 02/2025, HFpEF, HLD, anxiety presents to ED with worsening dyspnea since early AM hours per triage note. Pt's last dialysis was this past Thursday completed the treatment. Patient states his dry weight is estimated at 68.4. Patient has not missed any dialysis treatments in some time. Patient states he is here because he is in chronic pain constantly. Patient is on Dilaudid orally q.3 hours p.r.n. for pain. 1.Acute Hypoxic Respiratory Failure -resolved with hemodialysis -follow up clinically 2.Acute on Chronic HFpEF -markedly improved after hemodialysis -titrate O2 ; if unable to remove we will get respiratory to do a home O2 eval in a.m. 3.ESRD on dialysis -messaged renal -arrange hemodialysis before discharge in a.m. 4.Chronic pain -schedule Dilaudid 5.IDDM Sliding scale insulin Diabetic diet heparin SC FULL CODE Quality Stroke Does the patient have a stroke diagnosis?: No Reason for No Anti-thrombotic by Day Two: N/A - Med Ordered VTE Prior VTE?: No VTE Risk Level:: Medical - moderate - high VTE Device Contraindication: N/A - Device Ordered VTE Drug Contraindication: N/A - Med Ordered
[2025-07-04 16:22] LABS: Glucose, Whole Blood 103 mg/dL (60-115)
[2025-07-04 19:59] VITALS: BP 153/73; PULSE 76; RESP 20; TEMP 36.7; O2SAT 96
[2025-07-04] MEDS: 0.9 % Sodium Chloride Flush 3 ML SYRINGE IVFLUSH (20:33)
[2025-07-04 21:31] LABS: Glucose, Whole Blood 119 mg/dL (60-115)
[2025-07-05] VITALS (9 sets, daily range): BP systolic 96–154; BP diastolic 57–76; PULSE 72–96; RESP 16–20; TEMP 36.1–36.9; O2SAT 92–98
--- NOTE | 2025-07-05 08:47 | W.PM.DNNEP ---
Subjective Subjective Date of Service: 07/05/25 This patient was seen during dialysis. Interval history: Patient here with shortness of breath, which has resolved. Following for management of ESRD on HD. Patient is MWF with plan for discharge after dialysis today. No new events noted. Patient denies complaints/concerns. Physical Exam Vital Signs: Vital Signs: Last Vital Signs Temp 97.8 F 07/05/25 04:00 Pulse 72 07/05/25 04:00 Resp 20 07/05/25 04:00 BP 154/76 H 07/05/25 04:00 Pulse Ox 96 07/05/25 04:00 O2 Del Method Nasal Cannula 07/05/25 04:00 O2 Flow Rate 3 07/05/25 04:00 BMI result Body Mass Index 24.1 Const: General: no acute distress and awake Resp: Effort & Inspection: normal respiratory effort and able to speak in complete sentences Auscultation: clear to auscultation bilaterally Cardio: Rate: regular rate Rhythm: regular rhythm Heart sounds: S1 normal heart sound present and S2 normal heart sound present GI: Palpation (GI): Soft to palpation and nontender Skin: Rashes: no rashes Extrem: General: No edema Assessment & Plan Assessment and plan (1) ESRD on dialysis: Status: Acute Plan Patient with ESRD on HD MWF here with shortness of breath shortness of breath has improved, no dialysis yet today Will get HD today as per his outpatient schedule H&H 12 &36, no indication for procrit at this time patient has received HD x2 since elevated potassium level, no need for lokelma no metabolic acidosis at this time recommend 1.5L/24hr fluid restriction, low sodium, low potassium, low phosphorus diet Discussed with Dr Quinn. Time Spent With Patient Time: Total time managing care of this patient today ____ minutes. Procedures Date of Service Date of Service: 07/05/25
[2025-07-05] MEDS: 0.9 % Sodium Chloride Flush 3 ML SYRINGE IVFLUSH ×2 (09:11→17:22)
[2025-07-05 09:31] LABS: Glucose, Whole Blood 109 mg/dL (60-115)
--- NOTE | 2025-07-05 11:05 | MHC.CM.PN ---
Addendum entered by Diamond Flores 07/05/25 14:37: Patient's community HD center is [facility]. The [place] center has closed. The plan was to discharge after HD today. The patient states that he is not feeling well after HD. Per RN the discharge is cancelled today. Original Note: Per MD rounds Plan is to discharge to home later today. He will receive HD prior to discharge. A Home O2 eval and a PT eval have been ordered. DP home resume HD @ [facility]. Patients will provide transportation home.
[2025-07-05 11:47] LABS: Glucose, Whole Blood 102 mg/dL (60-115)
--- NOTE | 2025-07-05 15:11 | HO.PM.IMPN ---
Subjective Subjective Date of Service: 07/05/25 Interval History: Did not tolerate dialysis well however completed course. States extremely fatigued Review of Systems Denies chest pain Denies shortness of breath Denies nausea vomiting diarrhea Denies fever and chill Physical Exam Vital Signs: Vital Signs: Last Vital Signs Temp 98.4 F 07/05/25 12:00 Pulse 96 07/05/25 12:00 Resp 18 07/05/25 12:00 BP 144/75 H 07/05/25 12:00 Pulse Ox 98 07/05/25 12:00 O2 Del Method Room Air 07/05/25 12:00 O2 Flow Rate 2 07/05/25 09:10 BMI result Body Mass Index 24.1 Const: Other: Awake alert no acute distress Resp: Other: Clear to auscultation bilaterally no rales rhonchi or wheezes Cardio: Other: No S4; positive S1-S2; no S3 murmurs rubs or gallops GI: Other: Soft nontender nondistended normoactive bowel sounds Extrem: Other: No edema bilaterally Objective Data Active Medications Acetaminophen (Acetaminophen 325 Mg Tablet) 650 mg PO Q6H PRN PRN Reason: Pain, Mild 1-3,fever,headache Last Admin: 07/03/25 06:18 Dose: 650 mg Documented By: CHARLIE Albuterol/Ipratropium (Albuterol/Iprat 2.5/0.5mg 3 Ml Ampul.Neb) 3 ml INHALE Q4H PRN PRN Reason: Shortness of Breath/Wheezing Alprazolam (Alprazolam 0.5 Mg Tablet) 2 mg PO BID [facility] Last Admin: 07/05/25 13:39 Dose: Not Given Documented By: FREDY Non-Admin Reason: Patient Condition Contraindication Amlodipine Besylate (Amlodipine Besylate 5 Mg Tablet) 5 mg PO BID [facility]; Protocol Last Admin: 07/05/25 13:39 Dose: Not Given Documented By: FREDY Non-Admin Reason: Patient Condition Contraindication Amphetamine/Dextroamphetamine (Amphetamine Mixed Salts 20 Mg Tablet) 20 mg PO BID PRN PRN Reason: Mood Atorvastatin Calcium (Atorvastatin Calcium 40 Mg Tablet) 40 mg PO BEDTIME [facility] Last Admin: 07/04/25 20:34 Dose: 40 mg Documented By: RUFUS Calcium Carbonate (Calcium Carbonate 750 Mg Tab.Chew) 750 mg PO Q4H PRN PRN Reason: Heartburn Dextrose (Dextrose 50 % 25 Gm/50 Ml Syringe) 25 gm IVPUSH Q15M PRN; Protocol PRN Reason: per Hypoglycemia Standing Ord. Glucose (Glucose Gel 15 Gm Gel..Gram.) 15 gm PO Q15M PRN; Protocol PRN Reason: per Hypoglycemia Standing Ord. Heparin Sodium (Porcine) (Heparin Sodium,Porcine 5,000 Unit/Ml Vial) 5,000 unit SUBCUT Q12H [facility] Last Admin: 07/05/25 10:19 Dose: Not Given Documented By: FREDY Non-Admin Reason: Off unit: Dialysis Hydralazine HCl (Hydralazine Hcl 50 Mg Tablet) 50 mg PO TID [facility]; Protocol Last Admin: 07/05/25 13:39 Dose: Not Given Documented By: FREDY Non-Admin Reason: Patient Condition Contraindication Hydromorphone HCl (Hydromorphone Hcl 2 Mg Tablet) 4 mg PO Q3H [facility] Last Admin: 07/05/25 14:01 Dose: 4 mg Documented By: FREDY Insulin Human Lispro (Insulin Lispro 100 Unit/Ml 3 Ml Vial) 0 unit SUBCUT QIDACHS [facility]; Protocol Last Admin: 07/05/25 13:40 Dose: Not Given Documented By: FREDY Non-Admin Reason: No Insulin Coverage Levothyroxine Sodium (Levothyroxine Sodium 112 Mcg Tablet) 112 mcg PO DAILY@0630 [facility] Last Admin: 07/05/25 05:26 Dose: 112 mcg Documented By: RUFUS Levothyroxine Sodium (Levothyroxine Sodium 25 Mcg Tablet) 25 mcg PO DAILY@0630 [facility] Last Admin: 07/05/25 05:26 Dose: 25 mcg Documented By: RUFUS Losartan Potassium (Losartan Potassium 50 Mg Tablet) 100 mg PO DAILY [facility]; Protocol Last Admin: 07/05/25 13:39 Dose: Not Given Documented By: FREDY Non-Admin Reason: Patient Condition Contraindication Magnesium Hydroxide (Milk Of Magnesia 30 Ml Oral.Susp) 30 ml PO DAILY PRN PRN Reason: Constipation Melatonin (Melatonin 3 Mg Tablet) 6 mg PO BEDTIME PRN PRN Reason: Insomnia Last Admin: 07/04/25 20:34 Dose: 6 mg Documented By: RUFUS Metoprolol Succinate (Metoprolol Succinate Er 100 Mg Tab.Er.24h) 100 mg PO DAILY [facility]; Protocol Last Admin: 07/05/25 13:39 Dose: Not Given Documented By: FREDY Non-Admin Reason: Patient Condition Contraindication Ondansetron HCl (Ondansetron Hcl 4 Mg/2 Ml Vial) 4 mg IVPUSH Q8H PRN PRN Reason: Nausea and Vomiting Polyethylene Glycol (Polyethylene Glycol 3350 17 Gm Powd.Pack) 17 gm PO DAILY PRN PRN Reason: Constipation Senna (Sennosides 8.6 Mg Tablet) 17.2 mg PO BEDTIME [facility] Last Admin: 07/04/25 20:33 Dose: 17.2 mg Documented By: RUFUS Sevelamer Carbonate (Sevelamer Carbonate Tablet 800 Mg Tablet) 1,600 mg PO TIDWM [facility] Last Admin: 07/05/25 13:40 Dose: Not Given Documented By: FREDY Non-Admin Reason: Patient Condition Contraindication Sodium Chloride (0.9 % Sodium Chloride Flush 3 Ml Syringe) 3 ml IVFLUSH QSHIFT [facility] Last Admin: 07/05/25 09:11 Dose: 3 ml Documented By: FREDY Sodium Zirconium Cyclosilicate (Sodium Zirconium Cyclosilicate 10 Gm Powd.Pack) 10 gm PO SUTUTHSA@0900 [facility] Last Admin: 07/04/25 08:37 Dose: 10 gm Documented By: FREDY Labs 07/03/25 05:04 07/03/25 05:04 Labs: Laboratory Results - last 24 hr 07/04/25 07/04/25 07/05/25 16:14 21:27 09:28 POC Glucose 103 119 H 109 07/05/25 11:41 POC Glucose 102 Assessment and Plan (1) Acute hypoxic respiratory failure: Status: Acute (2) Acute on chronic heart failure with preserved ejection fraction (HFpEF): Status: Acute Plan Pt is a 70 yo male with PMH ESRD on dialysis M,W,F, HTN, IDDM, Hypothyrpoidism, Cardiac Arrest with ROSC 02/2025, HFpEF, HLD, anxiety presents to ED with worsening dyspnea since early AM hours per triage note. Pt's last dialysis was this past Thursday completed the treatment. Patient states his dry weight is estimated at 68.4. Patient has not missed any dialysis treatments in some time. Patient states he is here because he is in chronic pain constantly. Patient is on Dilaudid orally q.3 hours p.r.n. for pain. 1.Acute Hypoxic Respiratory Failure -resolved with hemodialysis -follow up clinically 2.Acute on Chronic HFpEF -markedly improved after hemodialysis -titrate O2 ; if unable to remove we will get respiratory to do a home O2 eval in a.m. 3.ESRD on dialysis -extremely fatigued after dialysis -plan discharge for a.m.. updated 4.Chronic pain -schedule Dilaudid 5.IDDM Sliding scale insulin Diabetic diet heparin SC FULL CODE Quality Stroke Does the patient have a stroke diagnosis?: No Reason for No Anti-thrombotic by Day Two: N/A - Med Ordered VTE Prior VTE?: No VTE Risk Level:: Medical - moderate - high VTE Device Contraindication: N/A - Device Ordered VTE Drug Contraindication: N/A - Med Ordered
[2025-07-05 15:44] LABS: Glucose, Whole Blood 278 mg/dL (60-115)
[2025-07-05] MEDS: Sevelamer Carbonate Tablet 800 MG TABLET 1600 MG PO (17:18)
[2025-07-05 21:14] LABS: Glucose, Whole Blood 67 mg/dL (60-115)
[2025-07-05 21:29] LABS: Glucose, Whole Blood 100 mg/dL (60-115)
[2025-07-06] MEDS: 0.9 % Sodium Chloride Flush 3 ML SYRINGE IVFLUSH ×2 (00:20→08:34)
[2025-07-06 03:18] VITALS: BP 147/66; PULSE 81; RESP 18; TEMP 36.6; O2SAT 92
[2025-07-06 06:00] VITALS: BMI 24.2
[2025-07-06 07:08] VITALS: BP 141/69; PULSE 86; RESP 16; TEMP 36.9; O2SAT 93
[2025-07-06 07:25] LABS: Glucose, Whole Blood 95 mg/dL (60-115)
[2025-07-06] MEDS: Sevelamer Carbonate Tablet 800 MG TABLET 1600 MG PO ×2 (08:22→11:25)
[2025-07-06] MEDS: Metoprolol Succinate ER 100 MG TAB.ER.24H PO (08:24)
[2025-07-06 08:35] LABS: Glucose, Whole Blood 100 mg/dL (60-115)
[2025-07-06 11:15] LABS: Glucose, Whole Blood 183 mg/dL (60-115)
[2025-07-06] MEDS: Amphetamine Mixed Salts 20 MG TABLET PO (11:26)
--- NOTE | 2025-07-06 12:24 | P.DS_ITS ---
DS: Providers Provider Date of Service: 07/06/25 Date of admission: 07/03/25 04:19 Date of discharge: 07/06/25 Primary care physician: Matias Tan MD Consults: 07/03/25 04:25 Consult to Nephrology Routine Consulting Provider: [facility] [place] Reason for consultation: ESRD needs dialysis in AM, fluid volume overload Has provider been notified: No DS: Diagnosis Discharge Diagnosis (1) Acute hypoxic respiratory failure: Status: Acute (2) Acute on chronic heart failure with preserved ejection fraction (HFpEF): Status: Acute DS: Summary Status at Discharge Cognitive/behavioral status at discharge: 70 yo male with PMH ESRD on dialysis M,W,F, HTN, IDDM, Hypothyrpoidism, Cardiac Arrest with ROSC 02/2025, HFpEF, HLD, anxiety presents to ED with worsening dyspnea since early AM hours per triage note. Pt's last dialysis was this past Thursday completed the treatment. Patient states his dry weight is estimated at 68.4. Patient has not missed any dialysis treatments in some time. Patient states he is here because he is in chronic pain constantly. Patient is on Dilaudid orally q.3 hours p.r.n. for pain. Medication reconciliation was reviewed with patient's spouse by nursing over the phone. Pharmacy has yet to complete the med rec. Patient denies any current chest pain or shortness of breath at rest. Patient is currently wearing oxygen 3 L and is not normally on oxygen at home. When reviewing patient's past medical history in correlation with clinical findings, patient denies that he has heart failure or evidence of fluid volume overload. Patient states he makes minimal amount of urine. Work up in the ED included Ddimer which was elevated, 687 and CTA negative for PE. COVID and Flu testing negative. CT noted for interstitial edema and small B pleural effusions, negative for PNA. Pt received 1 dose of IV Lasix in the ED. Potassium 5.6. EKG negative for peaked T-waves. QTC 477. MG 2.0. BNP 2626. ED provider did message nephrology but did not think that patient required acute dialysis at this time. Patient lives with chronic pain and is on Dilaudid 4 mg q.3 hours PRN for pain. Patient states he is prescribed this from his PCP and has seen a barrel painter in the past. This could explain patient's generalized body aches reported by ED provider on presentation to the ED. Hospital Course Patient admitted to telemetry. He was dialyzed the day after admission and breathing improved dramatically. He was seen in consultation by Physical therbeth russell who felt patient would benefit from short-term rehab. Discharge was planned for the next day and dialysis was arranged prior to discharge 07/05 as this was his regular dialysis day. After dialysis patient was extremely fatigued and was unable to be discharge. On the day of discharge he is back at his baseline; no shortness a breath and ambulating in room. At this point he is medically accept able for discharge. He denied short-term rehab. Discussed with who agrees. We will arrange home physical therapy Time Attestation Discharge Coordination Time (in mins): 35 Quality: Safe Use of Opioids Does Pt have an Active Cancer Diagnosis on the Problem List?: No Quality: Stroke Does the patient have a stroke diagnosis?: No Physical Exam Vital Signs: Vital Signs: Last Vital Signs Temp 98.5 F 07/06/25 07:08 Pulse 86 07/06/25 07:08 Resp 16 07/06/25 07:08 BP 141/69 H 07/06/25 07:08 Pulse Ox 93 07/06/25 07:08 O2 Del Method Room Air 07/06/25 07:08 O2 Flow Rate 2 07/05/25 09:10 BMI result Body Mass Index 24.2 Const: Other: Awake alert no acute distress Resp: Other: Clear to auscultation bilaterally no rales rhonchi or wheezes Cardio: Other: No S4; positive S1-S2; no S3 murmurs rubs or gallops GI: Other: Soft nontender nondistended normoactive bowel sounds Extrem: Other: No edema bilaterally DS: Data Data Completed and Pending Completed studies during hospitalization [Text1]: Procedures Assistance with Respiratory Ventilation, Less than 24 Consecutive Hours, Continuous Positive Airway Pressure (04/07/25) Control Bleeding in Gastrointestinal Tract, Via Natural or Artificial Opening Endoscopic (01/22/25) Excision of Esophagogastric Junction, Via Natural or Artificial Opening Endoscopic, Diagnostic (01/22/25) Excision of Stomach, Pylorus, Via Natural or Artificial Opening Endoscopic, Diagnostic (01/22/25) Insertion of Endotracheal Airway into Trachea, Via Natural or Artificial Opening (03/07/25) Insertion of Infusion Device into Upper Vein, Percutaneous Approach (02/24/25) Inspection of Lower Intestinal Tract, Via Natural or Artificial Opening Endoscopic (01/22/25) Introduction of Vasopressor into Peripheral Vein, Percutaneous Approach (0 03/07/25) Performance of Cardiac Output, Single, Manual (03/07/25) Performance of Urinary Filtration, Intermittent, Less than 6 Hours Per Day (05/29/25) Respiratory Ventilation, Less than 24 Consecutive Hours (03/07/25) Transfusion of Nonautologous Red Blood Cells into Peripheral Vein, Percutaneous Approach (03/07/25) Labs on day of discharge: Laboratory Results - last 24 hr 07/05/25 07/05/25 07/05/25 15:33 20:48 21:25 POC Glucose 278 H 67 100 07/06/25 07/06/25 07/06/25 07:11 08:31 11:12 POC Glucose 95 100 183 H Discharge Plan Discharge Anticipated Discharge Date/Time: 07/06/25 12:13 Patient Disposition: Home Health Service Discharge Diagnosis: Acute hypoxic respiratory failure Referrals: [facility] [Outside] - 1 Week Matias Tan MD [Primary Care Provider, Internal Medicine] - 1 Week Discharge Medications: Continued levothyroxine 137 mcg tablet 137 mcg PO DAILY@0600 (DME) FreeStyle Lite Strips Strip MISCELLANEOUS TID (DME) pen needle, diabetic [BD Ultra-Fine Short Pen Needle] 31 gauge x 5/16 needle subcut DAILY hydromorphone 4 mg tablet 4 mg PO Q3H PRN (Reason: Pain) Qty: 10 0RF Rx Instructions: Partial Fill upon patient request. hydralazine 50 mg tablet 50 mg PO TID sevelamer carbonate 800 mg tablet 1,600 mg PO TID metoprolol succinate 100 mg tablet extended release 24 hr 100 mg PO DAILY atorvastatin 40 mg tablet 40 mg PO BEDTIME amlodipine 5 mg tablet 5 mg PO BID alprazolam 0.5 mg tablet 0.5 - 1 mg PO DAILY PRN (Reason: anxiety attack) alprazolam 2 mg tablet 2 mg PO BID losartan 100 mg tablet 100 mg PO DAILY Discharge Orders: Discharge Order (Routine); Ordered 07/06/25 Ordered By: Miah Perez Diet: Advance to usual diet Activity on Discharge: As tolerated Stand Alone Forms: Patient Portal Discharge page Print Language: Polish Care Plan Goals: Resume all medicines as taken prior to hospitalization Health Concerns: Resume your scheduled dialysis dates Plan of Treatment: Follow up with PCP renal as scheduled Assessment: See discharge summary
--- NOTE | 2025-07-06 12:45 | MHC.CM.PN ---
IMM 07/06/25 Patient is discharged to home today. [facility] will resume home services. They have been notified of the discharge today. HD will resume tomorrow 07/07/[address] [facility]. They were notified and have been faxed all dc info Patients has been notified that the patient is discharged. She will pick him up at 1pm in the front lobby.
== END 2025-07-06 13:26 | disposition home health service (06) | DRG 291 ==
LOC: HO.ED 07-03 04:10 → HO.EDOVER 07-03 04:25 → HO.IMC 07-03 15:44
PROVIDERS: Physician Assistant; Physician Assistant Medical; Student in an Organized Health Care Education/Training Program; Admitting Provider Nurse Practitioner Family; Emergency Provider Emergency Medicine; PCP Family Medicine; Visit Provider Hospitalist
DX: I13.2 Hypertensive heart and chronic kidney disease with heart failure and with stage 5 chronic kidney disease, or end stage renal disease (principal); I50.33 Acute on chronic diastolic (congestive) heart failure; N18.6 End stage renal disease; J96.01 Acute respiratory failure with hypoxia; D63.1 Anemia in chronic kidney disease; E11.22 Type 2 diabetes mellitus with diabetic chronic kidney disease; Z99.2 Dependence on renal dialysis; E78.5 Hyperlipidemia, unspecified; G89.29 Other chronic pain; E03.9 Hypothyroidism, unspecified; E87.6 Hypokalemia; Z86.74 Personal history of sudden cardiac arrest; Z20.822 Contact with and (suspected) exposure to COVID-19; Z79.890 Hormone replacement therapy; Z79.899 Other long term (current) drug therapy
CPT/HCPCS: 36415; 71045; 71275; 80048; 80053; 81001; 82803; 82947; 83735; 83880; 84439; 84443; 84484; 85025; 85379; 87502; 87635; 90999; 93005; 97161; 97530; 99285; J0360; J1200; J1644; J1938; Q9967

== ENCOUNTER → 2025-07-02 18:01 | Outpatient (BNV) | payer MEDICARE, SELFPAY | PROVIDERS: PCP Family Medicine; Visit Provider Radiology Diagnostic Radiology | DX: R06.02 Shortness of breath (principal) | CPT/HCPCS: 71045 ==

== ENCOUNTER → 2025-07-02 20:21 | Outpatient (BNV) | payer MEDICARE, SELFPAY | PROVIDERS: Admitting Provider Nurse Practitioner Family; Emergency Provider Emergency Medicine; PCP Family Medicine; Visit Provider Internal Medicine | DX: R06.02 Shortness of breath (principal) | CPT/HCPCS: 93010 ==

== ENCOUNTER → 2025-07-03 00:49 | Outpatient (BNV) | payer MEDICARE, SELFPAY | PROVIDERS: Emergency Provider Emergency Medicine Emergency Medical Services; PCP Family Medicine; Visit Provider Radiology Diagnostic Radiology | DX: J90 Pleural effusion, not elsewhere classified (principal); J84.89 Other specified interstitial pulmonary diseases | CPT/HCPCS: 71275 ==

== ENCOUNTER → 2025-07-03 04:19 | Outpatient (BNV) | payer MEDICARE, SELFPAY | PROVIDERS: Admitting Provider Nurse Practitioner Family; Emergency Provider Emergency Medicine; PCP Family Medicine; Visit Provider Nurse Practitioner Family | DX: N18.6 End stage renal disease (principal); Z99.2 Dependence on renal dialysis | CPT/HCPCS: 90935 ==

== ENCOUNTER → 2025-07-03 04:19 | Outpatient (BNV) | payer MEDICARE, SELFPAY | PROVIDERS: Admitting Provider Nurse Practitioner Family; Emergency Provider Emergency Medicine; PCP Family Medicine; Visit Provider Student in an Organized Health Care Education/Training Program | DX: J96.01 Acute respiratory failure with hypoxia (principal); I50.33 Acute on chronic diastolic (congestive) heart failure; N18.6 End stage renal disease; Z99.2 Dependence on renal dialysis | CPT/HCPCS: 99223; 99232; 99239; 99499 ==

== ENCOUNTER 2025-09-17 01:13 | Inpatient (IN) | payer MEDICARE, SELFPAY ==
--- OUTSIDE RECORDS SUMMARY | 2011-03-28 13:00 | XMS_ITS | Continuity of Care Document ---
Author Organization [facility] cine Address [address] [place] [id number] Phone Care Team Providers Care Director Of Search Engine Marketing Name Role Phone No Information Unavailable Unavailable Advance Directives Directive Yes / No Effective Date File Name No Information Encounters Encounter Description Practice Location Reason(s) For Visit Diagnoses Date Provider [facility], [address] [place] [address], [place], [place], [id number], tel:[phone] [facility] No Information 0201 1 No Information [facility], [address] [place] [address], [id number], tel:[phone] [facility] Migraine, unspecified without mention of intractable migraineIron deficiency anemia, unspecifiedDiabetes mellitus without mention of complicationUnspecified acquired hypothyroidismUnspecified arthropathyBenign essential hypertension Sep-2 3200 9 Silk Shahab. [address] [place] [address], [place], [place], [id number], . tel:[phone] Family History Family Member Type Diagnosis Age At Onset No Information Payers Payer name Insurance type Covered democrat ID Authoriza tion(s) No Information Social History Type Description Quantity Date Captured Comments Sex Male Smoking Status No Information Chief Complaint And Reason For Visit No Information History Of Present Illness Encounter Date Complaint History Of Prese nt Illness No Information Instructions Date Instruction Additional Infor mation No Information Assessments Type Assessment Date No Information
--- OUTSIDE RECORDS SUMMARY | 2025-09-16 23:59 | XMS_ITS | Continuity of Care Document ---
Author Organization [facility] Vince Sonny lt Address [address] [place] [address]- Care Team Providers Care Form Setter Steel Forms Name Role Phone Britney RUIZ, Matias Sim Primary Care Physician Encounter [facility] Date(s): 08/17/25 - 09/16/25 [facility] Adult [address] [place] [address]- Encounter Type: Triage Allergies, Adverse Reactions, Alerts Substance Criticality Severity Reaction Reaction Severity Status penicillin 1 Active traZODONE Active Ultram Rash Active 1naesea and dizziness along with headaches. Pt states feels very sick. Immunizations Given and Recorded Vaccine Date Status Refusal Reason influenza virus vaccine, inactivated 06/20/24 Obaz rded influenza virus vaccine, inactivated 08/01/22 Boaz rded influenza virus vaccine, inactivated 09/09/21 Give n influenza virus vaccine, inactivated 08/22/20 Give n influenza virus vaccine, inactivated 1 10/18/19 Gi kimberlee influenza virus vaccine, inactivated 07/02/17 Boaz rded influenza virus vaccine, inactivated 2 07/01/17 Re corded influenza virus vaccine, inactivated 10/18/14 Give n influenza virus vaccine, inactivated 11/21/13 Give n influenza virus vaccine, inactivated 3 09/19/11 Gi kimberlee SARS-CoV-2 (COVID-19) mRNA-1273 vaccine 08/01/22 R ecorded SARS-CoV-2 (COVID-19) mRNA BNT-162b2 vac 09/16/21 Recorded SARS-CoV-2 (COVID-19) mRNA BNT-162b2 vac 02/13/21 Recorded pneumococcal 23-valent vaccine 09/09/21 Given pneumococcal 13-valent vaccine 09/21/20 Given Pneumococcal Vaccine (oldterm) 08/21/10 Given FluLaval (oldterm) 08/21/10 Given tetanus/diphtheria/pertussis, acel(Tdap) 04/13/10 Given 1Result Comment: HIGH DOSE 2Location History: [facility] 3Admin Note: Declines Medications ALPRAZolam 0.5 mg oral tablet, extended release 1 tablet = 0.5 mg, By Mouth, 2 times a day, 0 Refills, Maintenance, 01/05/25 10:38:00 AM EDT, ER Tablet, Partial fill upon patient request if the prescription is for a schedule II opioid drug. Start Date: 01/05/25 Status: Ordered Medication Dispense Status: Completed Total Allowed Fills: 1 Fills Dispensed: 0 ALPRAZolam 2 mg oral tablet, extended release 1 tablet = 2 mg, By Mouth, 2 times a day, 0 Refills, Maintenance, 01/05/25 10:38:00 AM EDT, ER Tablet, Partial fill upon patient request if the prescription is for a schedule II opioid drug. Start Date: 01/05/25 Status: Ordered Medication Dispense Status: Completed Total Allowed Fills: 1 Fills Dispensed: 0 amLODIPine 5 mg oral tablet 5 mg, 1, tablet, By Mouth, 2 times a day, # 180 tablet, Refills 1, Tot. Refills 1, Maintenance, 07/29/25 10:26:00 AM EDT, Route to Pharmacy Electronically, [facility]/pharmacy #[id number], Partial fill upon patient request if the prescription is for a schedule II opioid drug., 167, cm, 06/21/25 8:16:00 EDT, Height, 63.63, kg, 05/28/24 14:21:00 EDT, Dry Weight Start Date: 07/29/25 Stop Date: 01/25/26 Status: Ordered Medication Dispense Status: Completed Quantity: 180.0 Unit: tablet Total Allowed Fills: 2 Fills Dispensed: 0 amphetamine-dextroamphetamine 20 mg oral tablet 1 tablet = 20 mg, 2 times a day, TAKE 1 TABLET BY MOUTH TWICE A DAY Start Date: 06/21/25 Status: Ordered Medication Dispense Status: Completed Total Allowed Fills: 1 Fills Dispensed: 0 atorvastatin 40 mg oral tablet 1 tablet, By Mouth, Daily, # 90 tablet, 2 Refills, Maintenance, 08/16/25 7:15:00 AM EDT, [id number], 167, cm, 06/21/25 8:16:00 EDT, Height, 63.63, kg, 05/28/24 14:21:00 EDT, Dry Weight Start Date: 08/16/25 Status: Ordered Medication Dispense Status: Completed Quantity: 90.0 Unit: tablet Total Allowed Fills: 1 Fills Dispensed: 0 calcitriol 0.5 mcg oral capsule 1 capsule = 0.5 mcg, By Mouth, Every Thursday, Thursday and Thursday, 0 Refills, Maintenance, 05/05/22 5:55:00 PM EDT, Capsule, Partial fill upon patient request if the prescription is for a schedule II opioid drug. Start Date: 05/05/22 Status: Ordered Medication Dispense Status: Completed Total Allowed Fills: 1 Fills Dispensed: 0 Freestyle Yanni 3 Plus reader Freestyle Yanni 3 Plus reader, See Instructions, # 1 each, Refills 0, Tot. Refills 0, Maintenance, This goes with Freestly Yanni 3 Plus sensors. Pt does not have a smart phone. DX E11.9 T2DM, 05/19/25 11:33:00 AM EDT, Supply, 167, cm, 04/06/25 15:23:00 EDT, Height, 63.63, kg, 05/28/24 14:21:00 EDT, Dry Weight Start Date: 05/19/25 Status: Ordered Medication Dispense Status: Completed Quantity: 1.0 Unit: each Total Allowed Fills: 1 Fills Dispensed: 0 Freestyle Yanni 3 Plus [place] Freestyle Yanni 3 Plus [place], See Instructions, # 1 Unknown, Refills 0, Tot. Refills 0, Maintenance, Use for continuous glucose monitoring, Dx: T2DM E11.9, 05/19/25 4:48:00 PM EDT, Supply, 167, cm, 04/06/25 15:23:00 EDT, Height, 63.63, kg, 05/28/24 14:21:00 EDT, Dry Weight Start Date: 05/19/25 Status: Ordered Medication Dispense Status: Completed Quantity: 1.0 Unit: Unknown Total Allowed Fills: 1 Fills Dispensed: 0 FreeStyle Yanni 3 Plus Sensors See Instructions, # 1 kit, Maintenance, Continuous glucose monitor for T2DM, E11.9, 05/19/25 6:55:00 AM EDT, Supply, 167, cm, 04/06/25 15:23:00 EDT, Height, 63.63, kg, 05/28/24 14:21:00 EDT, Dry Weight Start Date: 05/19/25 Status: Ordered Medication Dispense Status: Completed Quantity: 1.0 Unit: kit Total Allowed Fills: 1 Fills Dispensed: 0 Humalog Kwik Pen 100 units/mL subcutaneous injection See Instructions, 3 times a day with meals subcutaneous injection per sliding sale 150-200:2 units 201-250:4 units 251-300: 6units 301-350: 8 units over 400 call MD, # 15 mL, 3 Refills, Maintenance, 06/01/25 12:49:00 PM EDT, [facility] #[id number], Partial fill upon patient request if the prescription is for a schedule II opioid drug., 167, cm, 04/06/25 15:23:00 EDT, Height, 63.63, kg, 05/28/24 14:21:00 EDT, Dry Weight Start Date: 06/01/25 Status: Ordered Medication Dispense Status: Completed Quantity: 15.0 Unit: mL Total Allowed Fills: 4 Fills Dispensed: 0 hydrALAZINE 25 mg oral tablet 25 mg, 1, tablet, 3 times a day, TAKE 1 TABLET BY MOUTH THREE TIMES A DAY Start Date: 06/21/25 Status: Ordered Medication Dispense Status: Completed Total Allowed Fills: 1 Fills Dispensed: 0 hydrALAZINE 50 mg oral tablet 1 tablet = 50 mg, By Mouth, 3 times a day, # 90 tablet, 11 Refills, Maintenance, 06/21/25 8:59:00 AM EDT, Tablet, [facility]/pharmacy #[id number], Partial fill upon patient request if the prescription is for a schedule II opioid drug., 167, cm, 06/21/25 8:16:00 EDT, Height, 63.63, kg, 05/28/24 14:21:00 EDT, Dry Weight Start Date: 06/21/25 Status: Ordered Medication Dispense Status: Completed Quantity: 90.0 Unit: tablet Total Allowed Fills: 12 Fills Dispensed: 0 HYDROmorphone 4 mg oral tablet 1 tablet = 4 mg, By Mouth, Every 3 hours, PRN Pain , Severe, for 14 days, # 112 tablet, 0 Refills, Acute 09/26/25 12:36:00 PM EST, 09/12/25 12:36:00 PM EST, [id number], Partial fill upon patient request if the prescription is for a schedule II opioid drug., 09/13/25, 167, cm, 06/21/25 8:16:00 EDT, Height, 63.63, kg, 05/28/24 14:21:00 EDT, Dry Weight Start Date: 09/12/25 Stop Date: 09/26/25 Status: Ordered Medication Dispense Status: Completed Quantity: 112.0 Unit: tablet Total Allowed Fills: 1 Fills Dispensed: 0 levothyroxine 0.137 mg oral tablet 1 tablet, By Mouth, Daily, # 90 tablet, 1 Refills, Maintenance, 08/17/25 7:14:00 AM EDT, [id number], 167, cm, 06/21/25 8:16:00 EDT, Height, 63.63, kg, 05/28/24 14:21:00 EDT, Dry Weight Start Date: 08/17/25 Status: Ordered Medication Dispense Status: Completed Quantity: 90.0 Unit: tablet Total Allowed Fills: 1 Fills Dispensed: 0 Lokelma 10 g oral powder for reconstitution 1 pack/packet, By Mouth, Every Thursday, Thursday and Thursday, do not take within 2 hours of other medications, # 6 each, 0 Refills, Maintenance, 05/05/22 5:54:00 PM EDT, [facility] Powder, Partial fill upon patient request if the prescription is for a schedule II opioid drug. Start Date: 05/05/22 Stop Date: 05/07/22 Status: Ordered Medication Dispense Status: Completed Quantity: 6.0 Unit: each Total Allowed Fills: 1 Fills Dispensed: 0 LORazepam 1 mg oral tablet TAKE 1 TABLET BY MOUTH THREE TIMES A DAY NEEDED Start Date: 05/25/24 Status: Ordered Medication Dispense Status: Completed Total Allowed Fills: 1 Fills Dispensed: 0 losartan 100 mg oral tablet 1 tablet = 100 mg, By Mouth, Daily, # 90 tablet, 1 Refills, Maintenance, 07/29/25 10:25:00 AM EDT, Tablet, [facility]/pharmacy #[id number], Partial fill upon patient request if the prescription is for a schedule II opioid drug., 167, cm, 06/21/25 8:16:00 EDT, Height, 63.63, kg, 05/28/24 14:21:00 EDT, Dry Weight Start Date: 07/29/25 Stop Date: 01/25/26 Status: Ordered Medication Dispense Status: Completed Quantity: 90.0 Unit: tablet Total Allowed Fills: 2 Fills Dispensed: 0 metoprolol 100 mg oral tablet, extended release 100 mg, 1, tablet, By Mouth, Daily, # 30 tablet, Refills 11, Tot. Refills 11, Maintenance, 06/21/25 8:59:00 AM EDT, Route to Pharmacy Electronically, [facility]/pharmacy #[id number], Partial fill upon patient request if the prescription is for a schedule II opioid drug., 167, cm, 06/21/25 8:16:00 EDT, Height, 63.63, kg, 05/28/24 14:21:00 EDT, Dry Weight Start Date: 06/21/25 Stop Date: 06/16/26 Status: Ordered Medication Dispense Status: Completed Quantity: 30.0 Unit: tablet Total Allowed Fills: 12 Fills Dispensed: 0 One Touch Delica Lancets See Instructions, # 200 each, Refills 6, Tot. Refills 6, Maintenance, Test three times daily for T2DM on insulin. DX: E11.649, Z79.4, 06/01/25 12:33:00 PM EDT, Supply, 167, cm, 04/06/25 15:23:00 EDT, Height, 63.63, kg, 05/28/24 14:21:00 EDT, Dry Weight Start Date: 06/01/25 Status: Ordered Medication Dispense Status: Completed Quantity: 200.0 Unit: each Total Allowed Fills: 7 Fills Dispensed: 0 OneTouch Verio Glucose Meter See Instructions, # 1 each, Refills 0, Tot. Refills 0, Maintenance, Check once a day T2DM DX: E11.9, 05/19/25 11:17:00 AM EDT, Supply, 167, cm, 04/06/25 15:23:00 EDT, Height, 63.63, kg, 05/28/24 14:21:00 EDT, Dry Weight Start Date: 05/19/25 Status: Ordered Medication Dispense Status: Completed Quantity: 1.0 Unit: each Total Allowed Fills: 1 Fills Dispensed: 0 OneTouch Verio Lancets See Instructions, # 200 each, Refills 3, Tot. Refills 3, Maintenance, Test three times daily for T2DM on insulin. DX: E11.649, Z79.4, 05/17/25 2:55:00 PM EDT, Supply, 167, cm, 04/06/25 15:23:00 EDT, Height, 63.63, kg, 05/28/24 14:21:00 EDT, Dry Weight Start Date: 05/17/25 Status: Ordered Medication Dispense Status: Completed Quantity: 200.0 Unit: each Total Allowed Fills: 4 Fills Dispensed: 0 OneTouch Verio Test Strips See Instructions, # 200 each, Refills 3, Tot. Refills 3, Maintenance, Test three times daily for T2DM on insulin. DX: E11.649, Z79.4, 05/17/25 2:55:00 PM EDT, Supply, 167, cm, 04/06/25 15:23:00 EDT, Height, 63.63, kg, 05/28/24 14:21:00 EDT, Dry Weight Start Date: 05/17/25 Status: Ordered Medication Dispense Status: Completed Quantity: 200.0 Unit: each Total Allowed Fills: 4 Fills Dispensed: 0 sevelamer carbonate 800 mg oral tablet 1 tablet = 800 mg, By Mouth, 3 times a day, Maintenance, 12/09/22 3:02:00 PM EST, Tablet, Partial fill upon patient request if the prescription is for a schedule II opioid drug. Start Date: 12/09/22 Status: Ordered Medication Dispense Status: Completed Total Allowed Fills: 1 Fills Dispensed: 0 Problem List Condition Confirmation Course Effective Dates Status Health Status Informant Anemia Confirmed Active Colitis Confirmed Active End-stage renal disease on hemodialysis Confirmed Active Diabetes mellitus with renal manifestations, controlled(HCC) Confirmed Active Diverticulitis Confirmed Active OSCAR (generalized anxiety disorder) Confirmed Active Gout Confirmed Active Hypercholesterolemia Confirmed Active Hypertension Confirmed Active Hypothyroid Confirmed Active Neck pain Confirmed Active Psychogenic movement disorder Confirmed Active Elevated PSA Confirmed Active Testosterone deficiency Confirmed Active Immunizations reviewed and up to date Confirmed Active Social History Social History Type Response Smoking Status Never smoker; Tobacc o user in household: Yes entered on: 12/14/14 Sex Sex Representation Male (finding) Patient Care team information Care Team Personnel Name: Luis Chang [facility] RN Member Role: Primary Care Nurse Name: Eleanor Shah RN [facility] RN Member Role: Primary Care Nurse Name: Maldonado Lipscomb RN [facility] RN Member Role: Primary Care Nurse Name: Sabra Rod Position: [facility] Outreach Member Role: Lifetime Consulting Physician Name: Carin Mariee RN Position[facility] RN Member Role: Primary Care Nurse Name: Megha Isaacs RN [facility] Hospital Production Control Pegboard Clerk Member Role: Primary Care Nurse Name: Ansley Mckeon RN Position: [facility] RN Member Role: Primary Care Nurse Name: Rachel Lester RN Position[facility] RN Member Role: Primary Care Nurse Name: Landon Siddiqi RN Position[facility] RN Member Role: Primary Care Nurse Name: Missy Izquierdo NP Position: [facility] Associate Professional Member Role: Lifetime Consulting Provider Address: [facility] [address] [facility] [address] Telecom: Name: Sawyer Davis MD Position: [facility] Renal MD Member Role: Lifetime Consulting Physician Address: [facility] [address] [facility] [address] Telecom: Name: Valery Naik RN Position: [facility] RN Member Role: Primary Care Nurse Name: Olivia Erickson [place] Position: [facility] [place] Member Role: Lifetime Consulting Physician Name: Alejandro Morgan DO Position: [facility] Renal MD Member Role: Lifetime Consulting Physician Address: [address] [facility] [address] Telecom: Name: Matias Tan MD Position: [facility] Physician - Primary Care Member Role: PCP Address: [address] [place] [phone]- Telecom: Name: Vaishali Frank RN Position: [facility] RN Member Role: Primary Care Nurse Name: Kathia Myrick RN Position: [facility] AMB Nurse Member Role: Primary Care Nurse Name: Sujey Flores RN Position: [facility] RN Member Role: Primary Care Nurse Name: Rinku Quinones RN Position: [facility] RN Member Role: Primary Care Nurse Name: Geetha Muñiz Position: [facility] [place] Medical Administrative Assistant Member Role: Heel Top Lift Splitter Name: Mary Olivier RN Position[facility] RN Member Role: Primary Care Nurse Name: Nina Haines LPN Position: [facility] RN Member Role: Primary Care Nurse Name: Chance Arevalo RN Position: [facility] RN Member Role: Primary Care Nurse Care Team Related Persons Name: PIETRO BO Insurance Providers Guarantor name: PRIYA BO [facility] Plan Information #: 1 Payer: MEDICARE B Payer Identifier: SOLANGE Member Number: [id number] Group Number: Subscriber Identifier: NA Relationship to Subscriber: self Coverage Type: NA Coverage Verification Date: NA Telecom: NA Address: Health Plan Information #: 2 Payer: AARP SECONDARY ONLY Payer Identifier: SOLANGE Member Number: [id number] Group Number: SOLANGE Subscriber Identifier: NA Relationship to Subscriber: self Coverage Type: MEDICARE Coverage Verification Date: Telecom: Address:
--- OUTSIDE RECORDS SUMMARY | 2025-09-16 23:59 | XMS_ITS | Continuity of Care Document ---
Author Organization [facility] Vince Sonny lt Address [address] [place] [address]- Care Team Providers Care Pick Remover Name Role Phone Britney RUIZ, Matias Sim Primary Care Physician [phone] Encounter [facility] Date(s): 08/17/25 - 09/16/25 [facility] Adult [address] [place] [address]- Encounter Type: Triage Allergies, Adverse Reactions, Alerts Substance Criticality Severity Reaction Reaction Severity Status penicillin 1 Active traZODONE Active Ultram Rash Active 1naesea and dizziness along with headaches. Pt states feels very sick. Immunizations Given and Recorded Vaccine Date Status Refusal Reason influenza virus vaccine, inactivated 06/20/24 Boaz rded influenza virus vaccine, inactivated 08/01/22 Boaz [...] Given 1Result Comment: HIGH DOSE 2Location History: [facility] 3Admin Note: Declines Medications ALPRAZolam 0.5 [...] 10:26:00 AM EDT, Route to Pharmacy Electronically, [facility]/pharmacy #[id number], Partial fill upon patient request if the [...] Maintenance, 08/16/25 7:15:00 AM EDT, [id number], 167, cm, 06/21/25 8:16:00 EDT, Height, 63.63, [...] Fills Dispensed: 0 Freestyle Yanni 3 Plus [place] Freestyle Yanni 3 Plus [place], See Instructions, # 1 Unknown, Refills 0, [...] 3 Refills, Maintenance, 06/01/25 12:49:00 PM EDT, [email or web address] #[id number], Partial fill upon patient request if the [...] Refills, Maintenance, 06/21/25 8:59:00 AM EDT, Tablet, [facility]/pharmacy #[id number], Partial fill upon patient request if the [...] 12:36:00 PM EST, 09/12/25 12:36:00 PM EST, [facility] #[id number], Partial fill upon patient request if the [...] Maintenance, 08/17/25 7:14:00 AM EDT, [id number], 167, cm, 06/21/25 8:16:00 EDT, Height, 63.63, [...] Refills, Maintenance, 07/29/25 10:25:00 AM EDT, Tablet, [facility]/pharmacy #[id number], Partial fill upon patient request if [...] 8:59:00 AM EDT, Route to Pharmacy Electronically, [facility]/pharmacy #[id number], Partial fill upon patient request if [...] Team Personnel Name: Luis Chang RN Position: [facility] RN Member Role: Primary Care Nurse Name: Eleanor Shah RN Position: [facility] RN Member Role: Primary Care Nurse Name: Maldonado Lipscomb RN Position: [facility] RN Member Role: Primary Care Nurse Name: Sabra Rod Position: [facility] Outreach Member Role: Lifetime Consulting Physician Name: Carin Mariee RN Position: [facility] RN Member Role: Primary Care Nurse Name: Megha Isaacs RN Position: [facility] Hospital Tool Smith Member Role: Primary Care Nurse Name: Ansley Mckeon RN Position: [facility] RN Member Role: Primary Care Nurse Name: Rachel Lester RN Position: [facility] RN Member Role: Primary Care Nurse Name: Landon Siddiqi RN Position: [facility] RN Member Role: Primary Care Nurse Name: Missy Izquierdo NP Position: [facility] Associate Professional Member Role: Lifetime Consulting Provider Address: [facility] [address] [facility] [address] Telecom: Name: Sawyer Davis MD Position: [facility] Renal MD Member Role: Lifetime Consulting Physician Address: [facility] [address] [facility] [address] Telecom: Name: Valery Naik RN Position: [facility] RN Member Role: Primary Care Nurse Name: Olivia Erickson MA Position: [facility] [place] Member Role: Lifetime Consulting Physician Name: Alejandro Morgan DO Position: [facility] Renal MD Member Role: Lifetime Consulting Physician Address: [address] [facility] [address] Telecom: Name: Matias Tan MD Position: [facility] Physician - Primary Care Member Role: PCP Address: [address] [place] [address]- Telecom: Name: Vaishali Frank RN Position: [facility] RN Member Role: Primary Care Nurse Name: Kathia Myrick RN Position: [facility] AMB Nurse Member Role: Primary Care Nurse Name: Sujey Flores RN Position: [facility] RN Member Role: Primary Care Nurse Name: Rinku Quinones RN Position: [facility] RN Member Role: Primary Care Nurse Name: Geetha Muñiz Position: [facility] [place] Coating Machine Operator Member Role: Integration Engineer Name: Mary Olivier RN Position: [facility] RN Member Role: Primary Care Nurse Name: Nina Haines LPN Position: [facility] RN Member Role: Primary Care Nurse Name: Chance Arevalo RN Position: [facility] RN Member Role: Primary Care Nurse Care Team Related Persons Name: PIETRO BO Insurance Providers Guarantor name: PRIYA BO [facility] Plan Information #: 1 Payer: MEDICARE B Payer Identifier: SOLANGE Member Number: [id number] Group Number: Subscriber Identifier: NA Relationship to Subscriber: self Coverage Type: NA Coverage Verification Date: NA Telecom: NA Address: Health Plan Information #: 2 Payer: AARP SECONDARY ONLY Payer Identifier: [place] Member Number: [id number] Group Number: SOLANGE Subscriber Identifier: NA Relationship to Subscriber: self Coverage Type: MEDICARE Coverage Verification Date: Telecom: Address:
[2025-09-17] VITALS (38 sets, daily range): BP systolic 98–193; BP diastolic 64–98; PULSE 80–103; RESP 9–31; TEMP 36.4–38.4; O2SAT 91–99; BMI 24.5
--- NOTE | ~2025-09-17 | XR_ITS ---
CLINICAL HISTORY: shortness of breath Chest X-ray, 1 View COMPARISON: CR - XR CHEST 1V - 07/02/25 18:12 EDT FINDINGS: Bilateral mid to lower lung airspace disease. No pleural effusion. No pneumothorax. Similar mild cardiomegaly. No acute fracture. Vascular stent grafts project over the left upper extremity. IMPRESSION: Bilateral airspace disease, which could be due to pulmonary edema or atypical/viral pneumonia. This document has been electronically signed by: Cristiano Cevallos MD on 09/17/2025 01:59:39
--- NOTE | 2025-09-17 01:28 | ED.GENADULT ---
HPI - General Adult General Chief complaint: Dyspnea Stated complaint: ? Time Seen by Provider: 09/17/25 01:28 History of Present Illness ED Provider: Saloni ARAGON narrative: The patient is a 70-year-old male who was a dialysis patient. He received dialysis on Mondays, Wednesdays, and Fridays. He is here with his . She says that he went to his regular dialysis this week. He developed shortness of breath tonight and she drove him to the hospital. While driving to the hospital his shortness of breath worsened so that he was in severe shortness of breath and was very diaphoretic and pale when he arrived here. The patient's says that he has had similar events in the past. There has been no fever, sweats, chills. The patient was well earlier this afternoon. Related Data Home Medications ?Medication ?Instructions ?Recorded ?Confirmed blood sugar diagnostic (FreeStyle 07/11/21 10/30/24 Lite Strips) levothyroxine 137 mcg tablet 137 mcg PO DAILY@0600 07/11/21 07/03/25 pen needle, diabetic 31 gauge x 07/11/21 10/30/24 5/16 (BD Ultra-Fine Short Pen Needle) atorvastatin 40 mg tablet 40 mg PO BEDTIME 02/22/24 07/03/25 alprazolam 0.5 mg tablet 0.5 - 1 mg PO DAILY PRN anxiety 04/07/25 07/03/25 attack alprazolam 2 mg tablet 2 mg PO BID 04/07/25 07/03/25 amlodipine 5 mg tablet 5 mg PO BID 04/07/25 07/03/25 losartan 100 mg tablet 100 mg PO DAILY 04/07/25 07/03/25 hydralazine 50 mg tablet 50 mg PO TID 07/03/25 07/03/25 metoprolol succinate 100 mg 100 mg PO DAILY 07/03/25 07/03/25 tablet,extended release 24 hr sevelamer carbonate 800 mg tablet 1,600 mg PO TID 07/03/25 07/03/25 Previous Rx's ?Medication ?Instructions ?Recorded hydromorphone 4 mg tablet 4 mg PO Q3H PRN Pain #10 tabs 03/10/25 Allergies Allergy/AdvReac Type Severity Reaction Status Date / Time Penicillins (PENICILLINS) Allergy Unknown RASH Verified 09/17/25 01:46 tramadol (From ULTRAM) Allergy Unknown RASH Verified 09/17/25 01:46 trazodone (TRAZODONE) Allergy Unknown PRIAPISM Verified 09/17/25 01:46 risperidone (RISPERIDONE) AdvReac Severe dizzy, EPS Verified 09/17/25 01:46 Review of Systems Review of Systems: Yes all other systems are reviewed and are negative [facility] Past Medical History Medical History ESRD needing dialysis Hypothyroidism Influenza A CHF (congestive heart failure) Acute anemia Multifactorial gait disorder Pneumonia End stage renal disease on dialysis Occult blood positive stool Anemia Internal jugular vein thrombosis Abnormality of gait ESRD needing dialysis Secondary hyperparathyroidism (of renal origin) Anemia in chronic kidney disease DONIS (acute kidney injury) Diabetes Kidney failure HTN (hypertension) Social History Social History Household Members: Significant Other Housing: House Are you a primary assisted living care manager to a significant other at home: No Do you presently have visiting nurse or other home services: No Alcohol intake: former Comment: sitter in place Patient Tobacco Use Status: Never used Tobacco Cigarette Packs Per Day: 0 Cigarettes Per Day: 0 Years Smoked: NA Smoked in Last 30 Days: No e-Cigarette/Vaping Use: Never Used Second Hand Smoke Exposure: No Use of substances other than those prescribed or required for medical reasons: No Advance Directives: Yes Advance Directives on File: Yes Advance Directives Date on File: 09/07/23 service: No Physical Exam ED Vital Signs: Vital Signs - 24 hr 09/17/25 01:33 09/17/25 01:43 09/17/25 01:47 Temperature Pulse Rate 100 Respiratory Rate 30 H 31 H Blood Pressure 183/97 H 188/98 H Pulse Oximetry 94 Oxygen Delivery Method BiPAP 09/17/25 02:00 09/17/25 02:44 09/17/25 02:59 Temperature Pulse Rate 95 84 81 Respiratory Rate 28 H Blood Pressure 190/90 H 176/82 H 167/80 H Pulse Oximetry 94 Oxygen Delivery Method BiPAP 09/17/25 03:15 09/17/25 03:30 09/17/25 03:45 Temperature Pulse Rate 80 87 87 Respiratory Rate Blood Pressure 164/81 H 178/84 H 193/84 H Pulse Oximetry Oxygen Delivery Method 09/17/25 03:48 09/17/25 03:55 09/17/25 04:00 Temperature 100.4 F Pulse Rate 87 82 Respiratory Rate 21 H 28 H Blood Pressure 193/84 H 170/78 H Pulse Oximetry 99 Oxygen Delivery Method BiPAP 09/17/25 04:07 09/17/25 04:15 09/17/25 04:30 Temperature 100.6 F H Pulse Rate 82 81 81 Respiratory Rate 20 Blood Pressure 158/77 H 164/82 H 156/78 H Pulse Oximetry 93 Oxygen Delivery Method BiPAP 09/17/25 04:45 09/17/25 05:01 09/17/25 05:15 Temperature Pulse Rate 84 83 83 Respiratory Rate Blood Pressure 171/84 H 165/86 H 161/79 H Pulse Oximetry Oxygen Delivery Method 09/17/25 05:30 09/17/25 05:45 09/17/25 05:57 Temperature Pulse Rate 88 87 85 Respiratory Rate Blood Pressure 154/79 H 155/85 H 157/80 H Pulse Oximetry Oxygen Delivery Method 09/17/25 06:00 09/17/25 06:15 Temperature Pulse Rate 87 87 Respiratory Rate Blood Pressure 156/78 H 159/81 H Pulse Oximetry Oxygen Delivery Method BMI result Body Mass Index 24.5 Const Other: The patient was wheeled into the main emergency department in a wheelchair. He was profoundly diaphoretic and pale and extremely short of breath and barely conscious. HENMT Other: The skin of the face was extremely diaphoretic. Airway was clear. Eyes Other: Pupils are round equal, conjunctivae are clear, extraocular movements intact Neck Other: Neck veins looked full. No adenopathy. Resp Effort & Inspection: normal respiratory effort Auscultation: clear to auscultation bilaterally Cardio Rate: regular rate Rhythm: regular rhythm Heart sounds: S1 normal heart sound present and S2 normal heart sound present GI Other: Abdomen is soft and nontender Skin Other: Skin was ashen and diaphoretic Neuro Other: The patient was awake but profoundly weak. Face was symmetrical, speech was very quiet, extremities were weak but symmetrically so, tone was symmetrical. No focal findings. Extrem Other: There is no calf swelling or tenderness. No asymmetry. No peripheral edema. There was a dialysis shunt in the left arm. Medications Administered Generic Name Dose Route Start Last Admin Trade Name Freq PRN Reason Stop Dose Admin Nitroglycerin 100 mg in 250 mls @ 0 mls/hr 09/17/25 02:15 09/17/25 06:15 Nitroglycerin/D5w IVCONT 300 mcg/min .Q0M FRANCINE 45 mls/hr Protocol Titration Per Protocol Discontinued Medications Generic Name Dose Route Start Last Admin Trade Name Jamq PRN Reason Stop Dose Admin Furosemide 80 mg 09/17/25 01:30 09/17/25 01:33 Furosemide 100 Mg/10 Ml Vial IVPUSH 09/17/25 01:31 80 mg ONCE ONE Administration Protocol Hydromorphone HCl 1 mg 09/17/25 04:10 09/17/25 04:36 Hydromorphone Hcl 1 Mg/Ml Syringe IVPUSH 09/17/25 04:11 1 mg ONCE ONE Administration Protocol Ceftriaxone Sodium 2 gm/ 50 mls @ 100 mls/hr 09/17/25 02:03 09/17/25 03:08 Sodium Chloride IV 09/17/25 02:32 Infused ONCE ONE Infusion Nitroglycerin 1 inch 09/17/25 01:29 09/17/25 01:30 Nitroglycerin 2 % Oint 1 Gm Packet TRANSDERMA 09/17/25 01:30 1 inch ONCE ONE Administration Nitroglycerin 1 inch 09/17/25 01:47 09/17/25 01:57 Nitroglycerin 2 % Oint 1 Gm Packet TRANSDERMA 09/17/25 01:48 1 inch ONCE ONE Administration Medical Decision Making Medical Decision Making [facility] Narrative: The patient is a 70-year-old dialysis patient who became abruptly short of breath just prior to being driven to the hospital by his . In the short trip to the hospital the patient became profoundly diaphoretic and severely short of breath to the point fairly being conscious. The patient looked severely ill and had to be lifted onto a stretcher out of a wheelchair. The patient was placed on maximum oxygen with the an OxyMask and nasal cannula. Despite this the patient's oxygen saturation was 66. As soon as respiratory therapy was available the patient was placed on BiPAP. Additionally the patient was given nitroglycerin paste, 1st 1 inch, then a 2nd inch as well. The patient remained somewhat hypertensive with nitroglycerin paste. Ultimately we stopped the nitroglycerin paste and initiated nitroglycerin IV instead. [place] [address] which is probably a stress response but there was also some degree of a fever with a rectal temperature of 100.4 degrees. Therefore blood cultures and a lactate were obtained and the patient was started on IV ceftriaxone. Overall my impression is that the patient is probably not significantly ill from a bacterial infection. My overall impression is that the patient has fluid overload, , possibly from eating too much over the holiday week. The patient was maintained on BiPAP and nitroglycerin IV. The patient was also given IV furosemide. The patient was also given IV ceftriaxone. An initial lactate came back quite elevated at 4.6. My suspicion for sepsis or septic shock is not very high. The patient was persistently hypertensive. I think the lactate elevation is more related to the patient has acute shortness of breath and near collapse rather than sepsis. Nevertheless the patient was given IV ceftriaxone. A repeat lactate was much improved at 1.3. The patient seemed to stabilize well on BiPAP and IV nitroglycerin. The patient was admitted to the ICU. Lab Data 09/17/25 01:35 09/17/25 01:35 Labs: Lab Results 09/17/25 09/17/25 09/17/25 Range/Units 01:35 01:44 02:06 WBC 19.6 H (4.8-10.8) X10*3/uL RBC 4.14 L (4.60-5.80) X10*6/uL Hgb 12.5 L (14.0-18.0) g/dl Hct 40.8 L (42.0-52.0) % MCV 98.6 H (80.0-98.0) fL MCH 30.2 (27.0-33.0) pg MCHC 30.6 L (31.0-36.0) g/dl RDW 16.1 H (11.0-16.0) % Plt Count 246 D (160-400) X10*3/uL MPV 9.5 (9.4-12.4) fL Immature Gran % (Auto) 0.4 (0.0-0.4) % Neut % (Auto) 60.7 (45-73) % Lymph % (Auto) 25.1 (20-40) % [place] % (Auto) 7.3 (2-11) % Eos % (Auto) 5.6 H (0-4) % Baso % (Auto) 0.9 (0-2) % Lymph # (Auto) 4.9 (1.2-4.9) X10*3/uL [place] # (Auto) 1.4 H (0.1-1.2) X10*3/uL Eos # (Auto) 1.1 H (0.0-0.4) X10*3/uL Baso # (Auto) 0.2 (0.0-0.2) X10*3/uL Abs Immat Gran (auto) 0.08 H (0.00-0.03) X10*3/uL Absolute Neuts (auto) 11.9 H (2.0-8.3) x10*3/uL Absolute Nucleated RBC 0.000 (0.0-0.012) X10*3/uL Nucleated RBC % (auto) 0.0 (0.0-0.2) /100WBC PT 12.0 (11.2-13.5) SEC INR 1.0 (0.9-1.1) VBG pH 7.30 L (7.32-7.43) VBG pCO2 67 mmHg VBG pO2 58 mmHg VBG HCO3 34 H (22-26) mmol/L VBG O2 Saturation 79.0 % VBG Base Excess 5.6 mmol/L Sodium 146 H (135-145) mmol/L Potassium 4.6 (3.3-5.1) mmol/L Chloride 92 L (96-108) mmol/L Carbon Dioxide 29 (22-29) mmol/L Anion Gap 30 H (12-20) BUN 40 H (9-16) mg/dL Creatinine 8.68 H* (0.5-1.4) mg/dL Estim Creat Clear Calc 7.2 Estimated GFR 6 Random Glucose 217 H (60-115) mg/dL Lactic Acid 4.6 H* (0.5-2.0) mmol/L Lactic Acid F/U @ 2Hr (0.5-2.0) mmol/L Calcium 9.2 D (8.4-10.2) mg/dL Magnesium 2.1 (1.6-2.6) mg/dL Total Bilirubin 0.9 (0.0-1.0) mg/dL Direct Bilirubin 0.3 (0.0-0.5) mg/dL AST 27 (5-37) U/L ALT 15 (0-40) U/L Alkaline Phosphatase 114 (39-117) U/L Troponin I High Sens 11.5 D (<3.5-35.0) ng/L C-Reactive Protein 1.41 H (< or = 0.50) mg/dL Total Protein 7.9 (6.5-8.0) g/dL Albumin 5.0 (3.5-5.0) g/dL Ethyl Alcohol < 10 mg/dL Influenza Type A (PCR) NEGATIVE (Negative) Influenza Type B (PCR) NEGATIVE (Negative) RSV RNA Qual (PCR) NEGATIVE (Negative) SARS-CoV-2 RNA (RT-PCR) NEGATIVE (Negative) 09/17/25 Range/Units 04:50 WBC (4.8-10.8) X10*3/uL RBC (4.60-5.80) X10*6/uL Hgb (14.0-18.0) g/dl Hct (42.0-52.0) % MCV (80.0-98.0) fL MCH (27.0-33.0) pg MCHC (31.0-36.0) g/dl RDW (11.0-16.0) % Plt Count (160-400) X10*3/uL MPV (9.4-12.4) fL Immature Gran % (Auto) (0.0-0.4) % Neut % (Auto) (45-73) % Lymph % (Auto) (20-40) % [place] % (Auto) (2-11) % Eos % (Auto) (0-4) % Baso % (Auto) (0-2) % Lymph # (Auto) (1.2-4.9) X10*3/uL [place] # (Auto) (0.1-1.2) X10*3/uL Eos # (Auto) (0.0-0.4) X10*3/uL Baso # (Auto) (0.0-0.2) X10*3/uL Abs Immat Gran (auto) (0.00-0.03) X10*3/uL Absolute Neuts (auto) (2.0-8.3) x10*3/uL Absolute Nucleated RBC (0.0-0.012) X10*3/uL Nucleated RBC % (auto) (0.0-0.2) /100WBC PT (11.2-13.5) SEC INR (0.9-1.1) VBG pH (7.32-7.43) VBG pCO2 mmHg VBG pO2 mmHg VBG HCO3 (22-26) mmol/L VBG O2 Saturation % VBG Base Excess mmol/L Sodium (135-145) mmol/L Potassium (3.3-5.1) mmol/L Chloride (96-108) mmol/L Carbon Dioxide (22-29) mmol/L Anion Gap (12-20) BUN (9-16) mg/dL Creatinine (0.5-1.4) mg/dL Estim Creat Clear Calc Estimated GFR Random Glucose (60-115) mg/dL Lactic Acid (0.5-2.0) mmol/L Lactic Acid F/U @ 2Hr 1.3 (0.5-2.0) mmol/L Calcium (8.4-10.2) mg/dL Magnesium (1.6-2.6) mg/dL Total Bilirubin (0.0-1.0) mg/dL Direct Bilirubin (0.0-0.5) mg/dL AST (5-37) U/L ALT (0-40) U/L Alkaline Phosphatase (39-117) U/L Troponin I High Sens (<3.5-35.0) ng/L C-Reactive Protein (< or = 0.50) mg/dL Total Protein (6.5-8.0) g/dL Albumin (3.5-5.0) g/dL Ethyl Alcohol mg/dL Influenza Type A (PCR) (Negative) Influenza Type B (PCR) (Negative) RSV RNA Qual (PCR) (Negative) SARS-CoV-2 RNA (RT-PCR) (Negative) Critical Care Time Critical Care Time Critical Care Time: Yes Total Critical Care Time: 35 Attestation: The patient was critically ill with a high probability of imminent or life-threatening deterioration. ?I spent greater than 30 minutes of discontinuous time evaluating the patient, delivering critical care at the bedside, discussing evaluating data with consultants. ?Critical care time does not include time spent performing separately billable procedures or teaching. ?Time spent performing critical care with 35 minutes. Discharge Plan Discharge Clinical Impression: Acute respiratory distress, Pulmonary edema, Chronic renal failure Patient Disposition: Admitted As Inpatient Discharge Date/Time: 09/17/25 07:18
--- NOTE | 2025-09-17 01:29 | ECG_ITS ---
Test Reason : DYSPNEA Blood Pressure : */* mmHG Vent. Rate : 111 BPM Atrial Rate : 111 BPM P-R Int : 136 ms QRS Dur : 84 ms QT Int : 360 ms P-R-T Axes : 75 1 18 degrees QTcB Int : 489 ms Artifact in tracing Sinus tachycardia Nonspecific ST and T wave abnormality Abnormal ECG When compared with ECG of 02-Jul-2025 20:33, ST now depressed in Lateral leads Referred By: Ryland Guallpa Electronically Signed By: HOA KLEIN
[2025-09-17] MEDS: Nitroglycerin 2 % Oint 1 GM Packet 1 INCH TRANSDERMA ×2 (01:30→01:57)
[2025-09-17] MEDS: Furosemide 100 MG/10 ML VIAL 80 MG IVPUSH (01:33)
[2025-09-17 01:45] LABS: MANUAL DIFF FLAG NO
[2025-09-17 01:46] LABS: Venous Blood Gas Refer to POC result
[2025-09-17 01:48] LABS: Hematocrit 40.8 % (42.0-52.0); Hemoglobin 12.5 g/dl (14.0-18.0); Imm Gran Abs Auto 0.08 X10*3/uL (0.00-0.03); Imm Gran Pct Auto 0.4 % (0.0-0.4); Lymphocytes Absolute Auto 4.9 X10*3/uL (1.2-4.9); Mean Corpuscular HGB Conc 30.6 g/dl (31.0-36.0); Mean Corpuscular Hemoglobin 30.2 pg (27.0-33.0); Mean Corpuscular Volume 98.6 fL (80.0-98.0); NRBC Abs Auto 0.000 X10*3/uL (0.0-0.012); NRBC Pct Auto 0.0 /100WBC (0.0-0.2); Platelet Count 246 X10*3/uL (160-400); Red Blood Count 4.14 X10*6/uL (4.60-5.80); White Blood Count 19.6 X10*3/uL (4.8-10.8)
[2025-09-17 01:48] LABS: VBG HCO3 34 mmol/L (22-26); VBG O2 % Saturation 79.0 %
[2025-09-17 01:55] LABS: INTERNATIONAL NORM RATIO 1.0 (0.9-1.1); Prothrombin Time 12.0 SEC (11.2-13.5)
[2025-09-17 02:10] LABS: Alanine Aminotransferase 15 U/L (0-40); Albumin Level 5.0 g/dL (3.5-5.0); Alkaline Phosphatase 114 U/L (39-117); Anion Gap 30 (12-20); Aspartate Amino Transferase 27 U/L (5-37); Blood Urea Nitrogen 40 mg/dL (9-16); Calcium 9.2 mg/dL (8.4-10.2); Carbon Dioxide 29 mmol/L (22-29); Chloride 92 mmol/L (96-108); Creatinine Clr Calc Pharmacy 7.2; Estimated Glomerular Filt Rate 6; Magnesium 2.1 mg/dL (1.6-2.6); Potassium 4.6 mmol/L (3.3-5.1); Sodium 146 mmol/L (135-145); Total Protein 7.9 g/dL (6.5-8.0)
[2025-09-17 02:13] LABS: Troponin-I High Sensitivity 11.5 ng/L (<3.5-35.0)
[2025-09-17 02:31] LABS: Resp Syncy Virus RNA Qual PCR NEGATIVE (Negative); SARS COV2 PCR INHOUSE NEGATIVE (Negative)
[2025-09-17] MEDS: Nitroglycerin/D5W 100 MG/250 ML INFUS..BTL IVCONT (02:44)
[2025-09-17 04:12] LABS: Reflex Lactate? Lactic Acid Added
[2025-09-17 05:10] LABS: ~Lactic Acid-LAB USE ONLY 1.3 mmol/L (0.5-2.0)
--- NOTE | 2025-09-17 06:04 | PC.NURSE ---
pt from home brought in by with complaint of sob. Upon arrival pt was noted to be diaphoretic, O2 sat of 60s on room air, hypertensive 183/97, moaning and not responding appropriately. Per pt awoke her around 0100 complaining of sudden onset of severe sob. Per pt has been fine, no recent sick contacts, fever/chills, n/v/d, abd pain, or any other symptoms of concern. Pt is on dialysis MWF, went to dialysis on Thursday, no complications or issues reported. No bp or venipuncture to left arm. While in the ED pt placed on bipap, 20G ultrasound guided IV placed by PA in [place] pt tolerated well. Labs collected. Pt placed on monitor and changed into hospital gown. Pt reports during transfer from wheelchair to bed pt had a bowel movement. Pt received 80mg of IV lasix, IV ceftriaxone, and currently on a nitro drip for bp. Per ICU provider nitrodrip to remain at 300 mcg/min and not to titrate unless systolic pressure goes up to 180. Pt is now caoX3 able to make his needs known. Pt has 20G ultrasound guided IV in [place].
--- OUTSIDE RECORDS SUMMARY | 2025-09-17 06:29 | XMS_ITS | Encounter Summary ---
Author Organization [facility], Address [address] [place] [address] Phone Care Team Providers Care Filter Press Pumper Name Role Phone Matias Tan MD Primary Care Provider +1- [phone] Reason for Visit * Reason Onset Date Comments Med Refill 07/19/2022 Encounter Details Date Type Department Care Team (Late Contact Info) Description 07/19/2022 Refill [facility] - Vascular Access Center [address] [place] [phone] Guanako Mercer MD [address] [place] [phone] Social History Tobacco Use Types Packs/Day Years [...] Care Team (Late st Contact Info) Description 10/31/2025 10:00 AM EST Procedure visit [facility] - [facility] [address] [place] [address] documented as of this encounter Visit Diagnoses Not on filedocumented in this encounter Care Teams Filter Press Pumper Relationship Specialty Start Date End Date Matias Tan MD [address] [facility] [place] [address] PCP - General Family Medicine 10/24/19 documented as of this encounter
--- OUTSIDE RECORDS SUMMARY | 2025-09-17 06:29 | XMS_ITS | Encounter Summary ---
Author Organization [facility], Address [address] [place] [address] Phone Care Team Providers Care Benefit Specialist Name Role Phone Matais Tan MD Primary Care Provider +1- [phone] Reason for Visit * Reason Onset Date Comments Med Refill 06/20/2022 Encounter Details Date Type Department Care Team (Late st Contact Info) Description 06/20/2022 Refill [facility], [address] [place] [phone] Guanako Mercer MD [address] [place] [phone] Social History Tobacco Use Types Packs/Day Years [...] visit [facility] [address] [place] [address] documented as of this encounter Visit Diagnoses Not on filedocumented in this encounter Care Teams Benefit Specialist Relationship Specialty Start Date End Date Matias aTn MD [address] [address] PCP - General Family Medicine 10/24/19 documented as of this encounter
--- OUTSIDE RECORDS SUMMARY | 2025-09-17 06:29 | XMS_ITS | Encounter Summary ---
Author Organization [facility], Address [address] [place] [address] Phone Care Team Providers Care Clamp Truck Driver Name Role Phone Matias Tan MD Primary Care Provider +1- [phone] Reason for Visit * Reason Comments Med Refill Encounter Details Date Type Department Care Team (Late st Contact Info) Description 06/24/2022 Refill [facility], [address] [place] [phone] Guanako Mercer MD [address] [facility] [place] [phone] Social History Tobacco Use Types Packs/Day Years [...] visit [facility] [address] [place] [address] documented as of this encounter Visit Diagnoses Not on filedocumented in this encounter Care Teams Clamp Truck Driver Relationship Specialty Start Date End Date Matias Tan MD [address] [place] [address] PCP - General Family Medicine 10/24/19 documented as of this encounter
--- OUTSIDE RECORDS SUMMARY | 2025-09-17 06:29 | XMS_ITS | Encounter Summary ---
Author Organization [facility], Address [address] [place] [address] Phone Care Team Providers Care Radiology Administrator Name Role Phone Matias Tan MD Primary Care Provider +1- [phone] Reason for Visit * Reason Onset Date Comments Med Refill 06/24/2022 Encounter Details Date Type Department Care Team (Late st Contact Info) Description 06/24/2022 Refill [facility], [address] [place] [phone] Guanako Mercer MD [address] [place] [phone] Social History Tobacco Use Types Packs/Day Years [...] visit [facility] - [facility] [address] [place] [address] documented as of this encounter Visit Diagnoses Not on filedocumented in this encounter Care Teams Radiology Administrator Relationship Specialty Start Date End Date Matias Tan MD [address] [facility] [place] [address] PCP - General Family Medicine 10/24/19 documented as of this encounter
--- OUTSIDE RECORDS SUMMARY | 2025-09-17 06:29 | XMS_ITS | Encounter Summary ---
Author Organization [facility], Address [address] [place] [address] Phone Care Team Providers Care Resource Manager Forester Name Role Phone Matias Tan MD Primary Care Provider +1- [phone] Reason for Visit * Reason Comments Med Refill Encounter Details Date Type Department Care Team (Late st Contact Info) Description 07/17/2022 Refill [facility] - Vascular Access Center [address] [place] [phone] Guanako Mercer MD [address] [place] [phone] Social History Tobacco Use Types Packs/Day Years [...] visit [facility] - [facility] [address] [place] [address] documented as of this encounter Visit Diagnoses Not on filedocumented in this encounter Care Teams Resource Manager Forester Relationship Specialty Start Date End Date Matias Tan MD [address] [place] [address] PCP - General Family Medicine 10/24/19 documented as of this encounter
--- OUTSIDE RECORDS SUMMARY | 2025-09-17 06:29 | XMS_ITS | Encounter Summary ---
Author Organization [facility], Address [address] [place] [address] Phone Care Team Providers Care Third Rail Installer Name Role Phone Matias Tan MD Primary Care Provider +1- [phone] Reason for Visit * Reason Comments Med Refill Encounter Details Date Type Department Care Team (Late st Contact Info) Description 09/24/2023 Refill [facility] [address] [place] [address] Gabriela Hernandez PA [address] [place] [phone] Social History Tobacco Use Types Packs/Day Years [...] visit [facility] - [facility] [address] [place] [phone] documented as of this encounter Visit Diagnoses Not on filedocumented in this encounter Care Teams Third Rail Installer Relationship Specialty Start Date End Date Matias Tan MD [address] [place] [address] PCP - General Family Medicine 10/24/19 documented as of this encounter
--- OUTSIDE RECORDS SUMMARY | 2025-09-17 06:29 | XMS_ITS | Encounter Summary ---
Author Organization [facility] [place], Address [address] [place] [address] Phone Care Team Providers Care Net Lead Developer Name Role Phone Matias Tan MD Primary Care Provider +1- [phone] Reason for Visit * Reason Onset Date Comments Med Refill 06/08/2022 Encounter Details Date Type Department Care Team (Late st Contact Info) Description 06/08/2022 Refill [facility], [address] [place] [phone] Guanako Mercer MD [address] [place] [phone] Social History Tobacco Use Types Packs/Day Years [...] visit [facility] - [facility] [address] [place] [address] documented as of this encounter Visit Diagnoses Not on filedocumented in this encounter Care Teams Net Lead Developer Relationship Specialty Start Date End Date Matias Tan MD [address] [address] PCP - General Family Medicine 10/24/19 documented as of this encounter
--- OUTSIDE RECORDS SUMMARY | 2025-09-17 06:29 | XMS_ITS | Encounter Summary ---
Author Organization [facility], Address [address] [place] [address] Phone Care Team Providers Care Pie Cutter Name Role Phone Matias Tan MD Primary Care Provider +1- [phone] Reason for Visit * Reason Comments Med Refill Encounter Details Date Type Department Care Team (Late st Contact Info) Description 09/25/2023 Refill [facility] [address] [place] [address] Denys Mueller MD [address] [place] [address] Social History Tobacco Use Types [...] visit [facility] [address] [place] [address] documented as of this encounter Visit Diagnoses Not on filedocumented in this encounter Care Teams Pie Cutter Relationship Specialty Start Date End Date Matias Tan MD [address] [place] [address] PCP - General Family Medicine 10/24/19 documented as of this encounter
--- OUTSIDE RECORDS SUMMARY | 2025-09-17 06:29 | XMS_ITS | Encounter Summary ---
Author Organization [facility], Address [address] [place] [address] Phone Care Team Providers Care Lamp Replacer Name Role Phone Matias Tan MD Primary Care Provider +1- [phone] Reason for Visit * Reason Comments Med Refill Encounter Details Date Type Department Care Team (Late st Contact Info) Description 09/24/2023 Refill [facility] [address] [place] [address] Denys Mueller MD [address] [place] [address] Social History Tobacco Use Types [...] visit [facility] [address] [place] [address] documented as of this encounter Visit Diagnoses Not on filedocumented in this encounter Care Teams Lamp Replacer Relationship Specialty Start Date End Date Matias Tan MD [address] [place] [address] PCP - General Family Medicine 10/24/19 documented as of this encounter
--- OUTSIDE RECORDS SUMMARY | 2025-09-17 06:29 | XMS_ITS | Encounter Summary ---
Author Organization [facility] [place], Address [address] [place] [address] Phone Care Team Providers Care Fusing Machine Tender Name Role Phone Matias Tan MD Primary Care Provider +1- [phone] Reason for Visit * Reason Onset Date Comments Med Refill 09/24/2022 Encounter Details Date Type Department Care Team (Late st Contact Info) Description 09/24/2022 Refill [facility] - V[facility] Access Center [address] [place] [id number] Ferdinand Monroe MD [address] [place] [id number] Social History Tobacco Use Types Packs/Day Years [...] visit [facility] - [facility] [place] [id number] documented as of this encounter Visit Diagnoses Not on filedocumented in this encounter Care Teams Fusing Machine Tender Relationship Specialty Start Date End Date Matias Tan MD [address] [facility] [place] [address] PCP - General Family Medicine 10/24/19 documented as of this encounter
--- OUTSIDE RECORDS SUMMARY | 2025-09-17 06:30 | XMS_ITS | Encounter Summary ---
Author Organization [facility], Address [address] [place] [address] Phone Care Team Providers Care Production Shift Supervisor Name Role Phone Matias Tan MD Primary Care Provider +1- [phone] Reason for Visit * Reason Comments Med Refill Encounter Details Date Type Department Care Team (Late st Contact Info) Description 05/08/2024 Refill [facility] [address] [place] [address] Gabriela Hernandez PA [address] [place] [phone] Social History Tobacco Use Types Packs/Day Years [...] visit [facility] - [facility] [address] [place] [phone] documented as of this encounter Visit Diagnoses Not on filedocumented in this encounter Care Teams Production Shift Supervisor Relationship Specialty Start Date End Date Matias Tan MD [address] [place] [address] PCP - General Family Medicine 10/24/19 documented as of this encounter
--- OUTSIDE RECORDS SUMMARY | 2025-09-17 06:30 | XMS_ITS | Encounter Summary ---
Author Organization [facility], Address [address] [place] [address] Phone Care Team Providers Care Naval Aircrewman Operator Name Role Phone Matias Tan MD Primary Care Provider +1- [phone] Encounter Details Date Type Department Care Team (Late st Contact Info) Description 09/12/2025 Orders Only [facility] [address] [place] [phone] Denys Mueller MD [address] [facility] [place] [address] Social History Tobacco Use [...] visit [facility] - [facility] [address] [place] [address] documented as of this encounter Procedures Procedure Name Priority Date/Time Associated Diagnosis Comments HEMATOLOGY Routine 09/12/2025 documented in this encounter Results * (ABNORMAL) HEMATOLOGY (09/12/2025) Hemoglobin 10.5(L) 14.0 - 18.0 g/dL [facility] Hemoglobin x 3 31.5(L) 42.0 - 54.0 % [facility] 09/12/2025 09/13/2025 7:5 5 AM EST Narrative [facility] - 09/13/2025 Unless otherwise specified, test(s) performed at: [facility], [address] [place] [address] BOAT ASSEMBLER: Blane Ramsay M.D. For any questions, please call customer service at FREQUENCY:OTHER Resulting Agency Comment Specimen source: Blood us Denys Mueller MD LAB BLOOD ORDERABLES Final Re sult [facility] ([facility]) See order comments or contact performing lab Unknown, [place] documented in this encounter Visit Diagnoses Not on filedocumented in this encounter Care Teams Naval Aircrewman Operator Relationship Specialty Start Date End Date Matias Tan MD [facility] [address] [facility] [place] [address] PCP - General Family Medicine 10/24/19 documented as of this encounter
--- OUTSIDE RECORDS SUMMARY | 2025-09-17 06:30 | XMS_ITS | Encounter Summary ---
Author Organization [facility], Address [address] [place] [address] Phone Care Team Providers Care Rn Pool Name Role Phone Matias Tan MD Primary Care Provider +1- [phone] Reason for Visit * Reason Onset Date Comments Med Refill 12/20/2022 Encounter Details Date Type Department Care Team (Late st Contact Info) Description 12/20/2022 Refill [facility] - Vascular Access Center [address] [place] [address] Kb Sung MD Social History Tobacco Use [...] AM EST documented as of this encounter Functional Status * Question Answer Date of Assessment Author BP 156/71 12/22/2022 9:21 AM EST [facility] [place] Temp 97.4 12/22/2022 9:21 AM EST [facility] [place] Pulse 77 12/22/2022 9:21 AM EST [facility] [place] SpO2 100 12/22/2022 9:21 AM EST [facility] [place] Height 66 12/22/2022 9:21 AM EST [facility] [place] Weight 2751.34 12/22/2022 9:21 AM EST [facility] [place] * BMI (Calculated) Answer Date of Assessment Author 27.8 12/22/2022 9:21 AM EST [facility], [place] * Question Answer Date of Assessment Author BP 156/71 12/22/2022 9:21 AM EST [facility] [place] Height 66 12/22/2022 9:21 AM EST [facility] [place] Weight 2751.34 12/22/2022 9:21 AM EST [facility] [place] * BMI (Calculated) Answer Date of Assessment Author 27.8 12/22/2022 9:21 AM EST [facility], Lucita documented as of this encounter Plan of Treatment Upcoming Encounters Date Type Department Care Team (Late st Contact Info) Description 10/31/2025 10:00 AM EST Procedure visit [facility] - [facility] [address] [place] [address] documented as of this encounter Visit Diagnoses Not on filedocumented in this encounter Care Teams Rn Pool Relationship Specialty Start Date End Date Matias Tan MD [facility] [address] [place] [address] PCP - General Family Medicine 10/24/19 documented as of this encounter
--- OUTSIDE RECORDS SUMMARY | 2025-09-17 06:30 | XMS_ITS | Encounter Summary ---
Author Organization [facility] [place], Address [address] [place] [address] Phone Care Team Providers Care Supervisor Beehive Kiln Name Role Phone Matias Tan MD Primary Care Provider +1- [phone] Reason for Visit * Reason Onset Date Comments Med Refill 07/01/2024 Encounter Details Date Type Department Care Team (Late st Contact Info) Description 07/01/2024 Refill [facility], - Vascular Access Center [address] [place] [phone] Dale Lema MD [address] [place] [address] Social History Tobacco Use Types Packs/Day Years [...] visit [facility] - [facility] [address] [place] [phone] documented as of this encounter Visit Diagnoses Not on filedocumented in this encounter Care Teams Supervisor Beehive Kiln Relationship Specialty Start Date End Date Matias Tan MD [address] [place] [phone] PCP - General Family Medicine 10/24/19 documented as of this encounter
--- OUTSIDE RECORDS SUMMARY | 2025-09-17 06:30 | XMS_ITS | Encounter Summary ---
Author Organization [facility], Address [address] [place] [address] Phone Care Team Providers Care Bundle Breaker Name Role Phone Matias Tan MD Primary Care Provider +1- [phone] Reason for Visit * Reason Comments Med Refill Encounter Details Date Type Department Care Team (Late st Contact Info) Description 01/26/2023 Refill [facility] [address] [place] [address] Denys Mueller MD [address] [place] [address] Social History Tobacco Use Types [...] visit [facility] - [facility] Center [address] [place] [address] documented as of this encounter Visit Diagnoses Not on filedocumented in this encounter Care Teams Bundle Breaker Relationship Specialty Start Date End Date Matias Tan MD [address] [place] [address] PCP - General Family Medicine 10/24/19 documented as of this encounter
--- OUTSIDE RECORDS SUMMARY | 2025-09-17 06:30 | XMS_ITS | Encounter Summary ---
Author Organization [facility] [place], Address [address] [place] [address] Phone Care Team Providers Care Lining Stitcher Name Role Phone Matias Tan MD Primary Care Provider +1- [phone] Reason for Visit * Reason Comments Med Refill Encounter Details Date Type Department Care Team (Late st Contact Info) Description 11/28/2022 Refill [facility] [address] [place] [address] Guanako Mercer MD [address] [place] [address] Social History Tobacco Use Types [...] visit [facility] - [facility] [address] [place] [address] documented as of this encounter Visit Diagnoses Not on filedocumented in this encounter Care Teams Lining Stitcher Relationship Specialty Start Date End Date Matias Tan MD [address] [facility] [place] [address] PCP - General Family Medicine 10/24/19 documented as of this encounter
--- OUTSIDE RECORDS SUMMARY | 2025-09-17 06:30 | XMS_ITS | Clinical Summary ---
Author Organization [facility], Address [address] [place] [address] Phone Care Team Providers Care Negotiator Sales Name Role Phone Matias Tan MD Primary Care Provider +1- [phone] Allergies Active Allergy Reactions Criticality Noted Date Comments Penicillin G Other (see comments),Nausea Medium 2019 Nausea, dizzy Risperidone 01/27/2025 Does not recall Trazodone Other (see comments) High 11/30/2019 Priapism Tramadol Rash Medium 11/30/2019 Medications Lantus SoloStar 100 UNIT/ML injection Inject 70 Units under the skin in the morning. 1 Active Lokelma 10 g pack Take 1 Package by mouth every other day On non HD days 2 Active amLODIPine (NORVASC) 10 MG tablet Take 1 tablet by mouth in the morning. 2 Active acetaminophen (TYLENOL) 325 MG tablet TAKE 2 TABLETS BY MOUTH EVERY 4 HOURS NEEDED FOR PAIN 2 Active Cholecalciferol 125 MCG (5000 UT) tablet Take 1 tablet by mouth daily 2 Active albuterol HFA (PROVENTIL HFA;VENTOLIN HFA) 108 (90 Base) MCG/ACT inhaler Inhale 2 puffs 3 Active calcitriol (ROCALTROL) 0.5 MCG capsule Take 0.5 mcg by mouth 2 Active levothyroxine (SYNTHROID, LEVOTHROID) 137 MCG tablet [...] (PROTONIX) 40 MG EC tablet 4 Active insulin lispro protamine-insuli n lispro (HumaLOG 50-50) (50-50) 100 UNIT/ML inj pen Inject under the skin 2 (two) times a day before meals Active sevelamer carbonate (RENVELA) 800 MG tablet [...] evening and 650 mg before bedtime. Active lidocaine (Lidoderm) 5 % patch Apply 1 patch topically 1 (one) time each day at the same time 5 Active hydrALAZINE 25 MG tablet Take 25 mg by mouth in the morning and 25 mg in the evening and 25 mg before bedtime. 5 Active ALPRAZolam (XANAX) 2 MG tablet Take 2 mg by mouth in the morning and 2 mg in the evening. Active ALPRAZolam (XANAX) 0.5 MG tablet Take 0.5 mg by mouth if needed for anxiety 5 Active Active Problems Problem Noted Date Diagnosed [...] Encounters Date Type Department Care Team Description 09/12/2025 Orders Only [facility] [address] [address] Denys Mueller MD 09/06/2025 Orders Only [facility] [address] [address] Denys Mueller MD 09/06/2025 Treatment [facility], [address] [place] [address] Tiffani Olson FNP-C End stage renal disease; Dependence on renal dialysis 08/30/2025 Orders Only [facility] [address] [address] Denys Mueller MD 08/30/2025 Treatment [facility] [place] [address] [place] [address] Madamas, Tiffani, FABRICATION TECHNICIAN-C End stage renal disease; Dependence on renal dialysis 08/23/2025 Orders Only [facility] [address] [address] Denys Mueller MD 08/23/2025 Treatment [facility], [address] [place] [address] GamaTiffani harden, FABRICATION TECHNICIAN-C End stage renal disease; Dependence on renal dialysis 08/18/2025 Treatment [facility], [address] [place] [address] Sawyer Davis MD End stage renal disease; Dependence on renal dialysis 08/16/2025 Orders Only [facility] [address] [address] Denys Mueller MD 08/16/2025 Treatment [facility], [address] [place] [address] Tiffani Olson, FABRICATION TECHNICIAN-C End stage renal disease; Dependence on renal dialysis 08/09/2025 Orders Only [facility] [address] [address] Denys Mueller MD 08/09/2025 Treatment [facility], [address] [place] [address] RamosTiffani naylor, FABRICATION TECHNICIAN-C End stage renal disease; Dependence on renal dialysis 08/02/2025 Telephone [facility] [address] [place] [address] [place] [address] Tanya Chi 08/01/2025 11:00 AM EDT Procedure visit [facility] [address] [place] [address] [place] [address] Dale Lema MD 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) 07/31/2025 Telephone [facility] [place] [facility] [address] [place] [address] Eleni Malinda 07/26/2025 Orders Only [facility] [address] [address] Denys Mueller MD 07/24/2025 Orders Only [facility] [address] [address] Denys Mueller MD 07/19/2025 Orders Only [facility] [address] [address] Denys Mueller MD 07/19/2025 Treatment [facility] [place] [address] [place] [address] Tiffani Olson FNP-C End stage renal disease; Dependence on renal dialysis 07/17/2025 Treatment [facility] [place] [address] [place] [address] Sawyer Davis MD End stage renal disease; Dependence on renal dialysis 07/17/2025 Orders Only [facility] [address] [address] Denys Mueller MD 07/14/2025 Treatment [facility] [place] [address] [place] [address] Tiffani Olson FNP-C End stage renal disease; Dependence on renal dialysis 07/12/2025 Orders Only [facility] [address] [address] Denys Mueller MD 07/10/2025 Orders Only [facility] [address] [address] Denys Mueller MD 07/07/2025 Orders Only [facility] [address] [address] Denys Mueller MD 06/30/2025 Treatment [facility], [address] [place] [address] Tiffani Olson FNP-C End stage renal disease; Dependence on renal dialysis 06/28/2025 Orders Only [facility] [address] [address] Denys Mueller MD 06/26/2025 Orders Only [facility] [address] [address] Denys Mueller MD 06/21/2025 Orders Only [facility] [address] [address] Denys Mueller MD 06/21/2025 Treatment [facility], [address] [place] [address] Tiffani Olson FNP-C End stage renal disease; Dependence on renal dialysis 06/19/2025 Orders Only [facility] [address] [address] Denys Mueller MD from Last 3 Months [...] Sign Reading Time Taken Comments Blood Pressure 140/69 08/01/2025 10:21 AM EDT Pulse 69 08/01/2025 10:21 AM EDT Temperature 36.2 C (97.2 F) 08/01/2025 10:21 AM EDT Respiratory Rate 16 08/01/2025 10:21 AM EDT Oxygen Saturation 100% 08/01/2025 10:21 AM EDT Inhaled Oxygen Concentration - - Weight 76.2 kg (168 lb) 08/01/2025 10:21 AM EDT Height 167.6 cm (5' 6 ) 08/01/2025 10:21 AM EDT Body Mass Index 27.12 08/01/2025 10:21 AM EDT Plan of Treatment Upcoming Encounters Date Type Department Care Team (Late st Contact Info) Description 10/31/2025 10:00 AM EST Procedure visit [facility] [place] [address] [place] [address] Health Maintenance Due Date Last Done Comments Hepatitis B Vaccine (1 of 5 - Risk Dialysis 4-dose series) 1974 Colorectal Cancer Screening: Annual FOBT 2003 Colorectal Cancer Screening: Colonoscopy 2003 Colorectal Cancer Screening: Sigmoidoscopy 2003 Diabetes: Ophthalmology Exam 12/01/2019 Diabetes: Pedal Pulse Checked 12/01/2019 Diabetes: Sensory Foot Exam 12/01/2019 Diabetes: Visual Foot Exam 12/01/2019 Diabetes: Hemoglobin A1C 04/15/2025 025, 01/13/2025, 05/04/2024, Additional history exists Influenza Vaccine (#1) 2025 , 08/22/2020, 10/18/2019, Additional history exists Pneumococcal Vaccine: 50+ Years Completed 09/09/2021, 09/21/2020, 08/21/2010 Pneumococcal Vaccine: Peds ( 0 to 5 Years) and At-Risk Patients (6 to 49 Years) Discontinued 09/09/2021, 09/21/2020, 08/21/2010 Procedures Procedure Name Priority Date/Time Associated Diagnosis Comments HEMATOLOGY Routine 09/12/2025 IMMUNO CHEMISTRY Routine 09/06/2025 CHEMISTRY Routine 09/06/2025 CHEMISTRY Routine 09/06/2025 HEMATOLOGY Routine 09/06/2025 HEMATOLOGY Routine 08/30/2025 [facility] RESULTS Routine 08/23/2025 HD KINETICS Routine 08/23/2025 POST CHEMISTRY Routine 08/23/2025 HEMATOLOGY Routine 08/23/2025 CHEMISTRY Routine 08/23/2025 HEMATOLOGY Routine 08/16/2025 HEMATOLOGY Routine 08/09/2025 IMMUNO CHEMISTRY Routine 08/02/2025 CHEMISTRY Routine 08/02/2025 CHEMISTRY Routine 08/02/2025 HEMATOLOGY Routine 08/02/2025 CHEMISTRY Routine 07/31/2025 HEMATOLOGY Routine 07/26/2025 CHEMISTRY Routine 07/24/2025 [facility] LAB RESULTS Routine 07/19/2025 HD KINETICS Routine 07/19/2025 CHEMISTRY Routine 07/19/2025 POST CHEMISTRY Routine 07/19/2025 HEMATOLOGY Routine 07/19/2025 CHEMISTRY Routine 07/17/2025 HEMATOLOGY Routine 07/12/2025 CHEMISTRY Routine 07/12/2025 CHEMISTRY Routine 07/10/2025 IMMUNO CHEMISTRY Routine 07/07/2025 CHEMISTRY Routine 07/07/2025 HEMATOLOGY Routine 07/07/2025 CHEMISTRY Routine 07/07/2025 HEMATOLOGY Routine 06/28/2025 CHEMISTRY Routine 06/26/2025 [facility] LAB RESULTS Routine 06/21/2025 HD KINETICS Routine 06/21/2025 POST CHEMISTRY Routine 06/21/2025 CHEMISTRY Routine 06/21/2025 HEMATOLOGY Routine 06/21/2025 CHEMISTRY Routine 06/19/2025 SPECIAL CHEMISTRY Routine 05/04/2024 from Last 3 Months or Most Recently Relevant to Health Maintenance Results * (ABNORMAL) HEMATOLOGY (09/12/2025) Only the most recent of13 resultswithin the time period is included. Hemoglobin 10.5(L) 14.0 - 18.0 g/dL [facility] Hemoglobin x 3 31.5(L) 42.0 - 54.0 % [facility] 09/12/2025 09/13/2025 7:5 5 AM EST Narrative [facility] - 09/13/2025 Unless otherwise specified, test(s) performed at: [facility], [address] [place], [place] [id number] LEGAL WRITING PROFESSOR: Blane Ramsay M.D. For any questions, please call customer service at FREQUENCY:OTHER Resulting Agency Comment Specimen source: Blood Denys Mueller MD LAB BLOOD ORDERABLES Final Re sult Performing Organization Address [facility]/ZIP Co de Phone Number [facility] See order comments or contact performing lab Unknown, [place] * IMMUNO CHEMISTRY (09/06/2025) Only the most recent of3 resultswithin the time period is included. Pathologist [facility] Hep B Surface Ag Negative Negative [facility] 09/06/2025 09/08/2025 8:0 8 AM EST Narrative [facility] - 09/08/2025 Unless otherwise specified, test(s) performed at: [facility], [address] [place] [id number] LEGAL WRITING PROFESSOR: Blane Ramsay M.D. For any questions, please call customer service at FREQUENCY:MONTHLY Resulting Agency Comment Specimen source: Serum Denys Mueller MD LAB BLOOD ORDERABLES Final Re sult [facility] See order comments or contact performing lab Unknown, [place] * (ABNORMAL) [facility] (09/06/2025) Only the most recent of16 resultswithin the time period is included. Pathologist [facility] PTH 271(H) 16 - 80 pg/mL [facility] 09/06/2025 09/08/2025 7:3 2 AM EST Narrative [facility] - 09/08/2025 Unless otherwise specified, test(s) performed at: [facility], [address] [place] [id number] LEGAL WRITING PROFESSOR: Blane Ramsay M.D. For any questions, please call customer service at FREQUENCY:MONTHLY Resulting Agency Comment Specimen source: Plasma Denys Mueller MD LAB BLOOD ORDERABLES Final Re sult Performing Organization Address [facility] de Phone Number [facility] See order comments or contact performing lab Unknown, [place] * HD KINETICS (08/23/2025) Only the most recent of3 resultswithin the time period is included. % Urea Reduction 78 65 - 80 % [facility] 08/23/2025 08/25/2025 1:5 5 PM EST Narrative Resulting Agency Comment Specimen source: Plasma Denys Mueller MD LAB BLOOD ORDERABLES Final Re sult Performing Organization Address [facility] de Phone Number [email or web address] See order comments or contact performing lab Unknown, [place] * POST CHEMISTRY (08/23/2025) Only the most recent of3 resultswithin the time period is included. BUN Post Dialysis 11 6 - 19 mg/dL [facility] 08/23/2025 08/25/2025 1:5 5 PM EST Narrative [facility] - 08/25/2025 Unless otherwise specified, test(s) performed at: [facility], [address] [place] [id number] LEGAL WRITING PROFESSOR: Blane Ramsay M.D. For any questions, please call customer service at FREQUENCY:OTHER Resulting Agency Comment Specimen source: Plasma Denys Mueller MD LAB BLOOD ORDERABLES Final Re sult Performing Organization Address [facility] de Phone Number [facility] See order comments or contact performing lab Unknown, [place] * [facility] Results (08/23/2025) Only the most recent of3 resultswithin the time period is included. PCR 65.21 [facility] spKt/V (Daugirdas II) 1.90 [facility] nPCR_HD 1.07 [facility] WSTDKT/V 2.7 [facility] spKt/V Gotch 2.03 [facility] eKdrt/V 1.76 [facility] eNPCR 1.01 [facility] eKt/V ([place]) 1.66 [facility] eKt/V Gotch 1.76 [facility] e Center 08/23/2025 08/23/2025 [facility] Ordering Provider LAB BLOOD ORDERABLES Final Result [facility] Contact Performing lab ABDOULAYE [place] * SPECIAL CHEMISTRY (05/04/2024) Pathologist [facility] Hemoglobin A1C 5.1 4.8 - 5.9 % [facility] 05/04/2024 05/05/2024 9:5 7 AM EDT Narrative [facility] - 05/05/2024 Unless otherwise specified, test(s) performed at: [facility], [address] [place] [address] LEGAL WRITING PROFESSOR: Blane Ramsay M.D. For any questions, please call customer service at FREQUENCY:MONTHLY Resulting Agency Comment Specimen source: Blood Denys Mueller MD LAB BLOOD BANK TEST ORDERABLE S Final Result [facility] [email or web address] [facility] See order comments or contact performing lab Unknown, [place] from Last 3 Months or Most Recently Relevant to Health Maintenance Insurance Medicare [facility] Medicare [facility] Care Teams Negotiator Sales Relationship Specialty Start Date End Date Matias Tan MD [address] [place] [address] PCP - General Family Medicine 10/24/19
--- OUTSIDE RECORDS SUMMARY | 2025-09-17 06:30 | XMS_ITS | Encounter Summary ---
Author Organization [facility], Address [address] [place] [address] Phone Care Team Providers Care Gusset Ripper Name Role Phone Matias Tan MD Primary Care Provider +1- [phone] Reason for Visit * Reason Onset Date Comments Med Refill 12/23/2022 Encounter Details Date Type Department Care Team (Late st Contact Info) Description 12/23/2022 Refill [facility] [address] [place] [phone] Ferdinand Monroe MD [address] [place] [address] Social History Tobacco Use Types Packs/Day Years [...] visit [facility] [address] [place] [address] [place] [address] documented as of this encounter Visit Diagnoses Not on filedocumented in this encounter Care Teams Gusset Ripper Relationship Specialty Start Date End Date Matias Tan MD [address] [facility] [place] [address] PCP - General Family Medicine 10/24/19 documented as of this encounter
--- OUTSIDE RECORDS SUMMARY | 2025-09-17 06:30 | XMS_ITS | Encounter Summary ---
Author Organization [facility], Address [address] [place] [address] Phone Care Team Providers Care Labeling Specialist Name Role Phone Matias Tan MD Primary Care Provider +1- [phone] Reason for Visit * Reason Comments Med Refill Encounter Details Date Type Department Care Team (Late st Contact Info) Description 12/28/2024 Refill [facility] [address] [place] [address] Sawyer Davis MD [address] [place] [address] Social History Tobacco Use Types [...] visit [facility] [address] [place] [address] documented as of this encounter Procedures Procedure Name Priority Date/Time Associated Diagnosis Comments HEMATOLOGY Routine 12/28/2024 documented in this encounter Results * (ABNORMAL) HEMATOLOGY (12/28/2024) Hemoglobin 11.5(L) 14.0 - 18.0 g/dL [facility] Hemoglobin x 3 34.5(L) 42.0 - 54.0 % [facility] 12/28/2024 12/29/2024 9:1 7 AM EDT Narrative [facility] - 12/29/2024 Unless otherwise specified, test(s) performed at: [facility], [address] [place] [address] GENERAL PRODUCTION LABORER: Blane Ramsay M.D. For any questions, please call customer service at FREQUENCY:OTHER Resulting Agency Comment Specimen source: Blood us Denys Mueller MD LAB BLOOD ORDERABLES Final Re sult [facility] See order comments or contact performing lab [facility], [place] documented in this encounter Visit Diagnoses Not on filedocumented in this encounter Care Teams Labeling Specialist Relationship Specialty Start Date End Date Matias Tan MD [facility] [address] [place] [id number] PCP - General Family Medicine 10/24/19 documented as of this encounter
--- OUTSIDE RECORDS SUMMARY | 2025-09-17 06:30 | XMS_ITS | Encounter Summary ---
Author Organization [facility] [place], Address [address] [place] [address] Phone Care Team Providers Care Business And Financial Counsel Name Role Phone Matias Tan MD Primary Care Provider +1- [phone] Encounter Details Date Type Department Care Team (Late st Contact Info) Description 01/10/2022 Documentation Only [facility] [place], [address] [place] [address] [facility] [address] [place] [address] Social History Tobacco Use Types [...] visit [facility] [address] [place] [address] documented as of this encounter Visit Diagnoses Not on filedocumented in this encounter Care Teams Business And Financial Counsel Relationship Specialty Start Date End Date Matias Tan MD [address] [place] [address] PCP - General Family Medicine 10/24/19 documented as of this encounter
--- OUTSIDE RECORDS SUMMARY | 2025-09-17 06:30 | XMS_ITS | Encounter Summary ---
Author Organization [facility] [place], Address [address] [place] [address] Phone Care Team Providers Care Radiology Ct Technologist Name Role Phone Matias Tan MD Primary Care Provider +1- [phone] Reason for Visit * Reason Comments Med Refill Encounter Details Date Type Department Care Team (Late st Contact Info) Description 01/26/2023 Refill [facility] [address] [place] [address] Gabriela Hernandez PA [address] [place] [address] Social History Tobacco Use Types Packs/Day Years [...] visit [facility] [address] [place] [address] documented as of this encounter Visit Diagnoses Not on filedocumented in this encounter Care Teams Radiology Ct Technologist Relationship Specialty Start Date End Date Matias Tan MD [address] [place] [address] PCP - General Family Medicine 10/24/19 documented as of this encounter
--- OUTSIDE RECORDS SUMMARY | 2025-09-17 06:30 | XMS_ITS | Encounter Summary ---
Author Organization [facility] [place], Address [address] [place] [address] Phone Care Team Providers Care Customer Marketing Intern Name Role Phone Matias Tan MD Primary Care Provider +1- [phone] Encounter Details Date Type Department Care Team (Late st Contact Info) Description 02/02/2024 Documentation Only [facility] [place], [address] [place] [phone] Alexandria Yusuf [address] [place] [address] Social History Tobacco Use Types [...] visit [facility] [address] [place] [address] documented as of this encounter Visit Diagnoses Not on filedocumented in this encounter Care Teams Customer Marketing Intern Relationship Specialty Start Date End Date Matias Tan MD [address] [place] [address] PCP - General Family Medicine 10/24/19 documented as of this encounter
--- OUTSIDE RECORDS SUMMARY | 2025-09-17 06:30 | XMS_ITS | Encounter Summary ---
Author Organization [facility] [place], Address [address] [place] [address] Phone Care Team Providers Care Farm Equipment Maintenance Supervisor Name Role Phone Matias Tan MD Primary Care Provider +1- [phone] Encounter Details Date Type Department Care Team (Late st Contact Info) Description 03/11/2023 Documentation Only [facility] [address] [phone] Jose Luis Amezcua MD Social History Tobacco [...] visit [facility] [address] [address] documented as of this encounter Visit Diagnoses Not on filedocumented in this encounter Care Teams Farm Equipment Maintenance Supervisor Relationship Specialty Start Date End Date Matias Tan MD [facility] [address] [place] [address] PCP - General Family Medicine 10/24/19 documented as of this encounter
--- OUTSIDE RECORDS SUMMARY | 2025-09-17 06:30 | XMS_ITS | Encounter Summary ---
Author Organization [facility] [place], Address [address] [place] [address] Phone Care Team Providers Care Mine Superintendent Name Role Phone Matias Tan MD Primary Care Provider +1- [phone] Reason for Visit * Reason Onset Date Comments Med Refill 12/20/2022 Encounter Details Date Type Department Care Team (Late st Contact Info) Description 12/20/2022 Refill [facility] - [facility] [address] [place] [address] Kb Sung MD Social History Tobacco Use [...] visit [facility] [address] [place] [address] documented as of this encounter Visit Diagnoses Not on filedocumented in this encounter Care Teams Mine Superintendent Relationship Specialty Start Date End Date Matias Tan MD [facility] [address] [place] [address] PCP - General Family Medicine 10/24/19 documented as of this encounter
--- NOTE | 2025-09-17 06:56 | PM.CCHP ---
History of Present Illness Date of Service: 09/17/25 Attending physician on admission: Alessandro Boss Chief Complaint: Dyspnea The patient is a 70-year-old male with a past medical history of end-stage renal disease (on HD M,W,F), congestive heart failure with preserved EF, diabetes mellitus, hypothyroidism and previous cardiac Arrest (02/2025), who presented with worsening dyspnea.? Patient's stated the patient developed shortness of breath tonight, and while driving to the hospital he was in respiratory distress, diaphoretic and using accessory muscle. ? reported patient had normal dialysis sessions last week ? On arrival to the emergency department patient's O2 saturation in the 60s, tachypneic to 30s, blood pressure elevated to 190/90.? Patient was quickly placed on BiPAP with improvement in oxygenation. Laboratory data was significant for WBC 19.6, chloride 92, BUN 40, an 8.68, lactic acid 4.6 Venous gas:? 7./58/34 IMAGING: CHEST X-RAY:? Consistent with pulmonary edema ED COURSE: He received 80 mg IV push Lasix, ceftriaxone 2 g, nitroglycerin transdermal.? Patient continued to be profoundly hypertensive requiring initiation of nitroglycerin drip Review of Systems Review of Systems: Yes all other systems are reviewed and are negative [facility] Past Medical History Medical History ESRD needing dialysis Hypothyroidism Influenza A CHF (congestive heart failure) Acute anemia Multifactorial gait disorder Pneumonia End stage renal disease on dialysis Occult blood positive stool Anemia Internal jugular vein thrombosis Abnormality of gait ESRD needing dialysis Secondary hyperparathyroidism (of renal origin) Anemia in chronic kidney disease DONIS (acute kidney injury) Diabetes Kidney failure HTN (hypertension) Social History Social History Household Members: Spouse Household Members Other:: 2 Housing: House Are you a primary point of care technician to a significant other at home: No Do you presently have visiting nurse or other home services: Yes Alcohol intake: former Comment: sitter in place Patient Tobacco Use Status: Never used Tobacco Cigarette Packs Per Day: 0 Cigarettes Per Day: 0 Years Smoked: NA Smoked in Last 30 Days: No e-Cigarette/Vaping Use: Never Used Second Hand Smoke Exposure: No Use of substances other than those prescribed or required for medical reasons: No Currently Displaying Signs/Symptoms of Drug Intoxication Withdrawal: No Have you been hit, kicked, punched, or otherwise hurt by someone within the past year? If so, by whom?: No Do you feel safe in your current relationship?: No Is there a partner from a previous relationship who is making you feel unsafe now?: No Are you made to feel afraid or neglected: No Advance Directives: Yes Advance Directives on File: Yes Advance Directives Date on File: 09/07/23 Recently lost weight without trying: No Nutrition Risks: No Nutritional Risk Poor oral hygiene: No service: No Meds Allergies Allergy/AdvReac Type Severity Reaction Status Date / Time Penicillins (PENICILLINS) Allergy Unknown RASH Verified 09/17/25 01:46 tramadol (From ULTRAM) Allergy Unknown RASH Verified 09/17/25 01:46 trazodone (TRAZODONE) Allergy Unknown PRIAPISM Verified 09/17/25 01:46 risperidone (RISPERIDONE) AdvReac Severe dizzy, EPS Verified 09/17/25 01:46 Active Medications: Current Medications Heparin Sodium (Porcine) (Heparin Sodium,Porcine 5,000 Unit/Ml Vial) 5,000 unit SUBCUT Q8H FRANCINE Nitroglycerin (Nitroglycerin/D5w) 100 mg in 250 mls @ 0 mls/hr IVCONT .Q0M FRANCINE; Protocol Last Titration: 09/17/25 06:15 Dose: 300 mcg/min, 45 mls/hr Cefepime HCl (Maxipime) 2 gm in 50 mls @ 100 mls/hr IV Q24H [facility] Home Medications ?Medication ?Instructions ?Recorded ?Confirmed ?Last Taken ?Type blood sugar diagnostic (FreeStyle 07/11/21 10/30/24 10/30/24 09:00 History Lite Strips) levothyroxine 137 mcg tablet 137 mcg PO DAILY@0600 07/11/21 09/17/25 07/03/25 History pen needle, diabetic 31 gauge x 07/11/21 10/30/24 10/30/24 09:00 History 03/03 (BD Ultra-Fine Short Pen Needle) atorvastatin 40 mg tablet 40 mg PO BEDTIME 02/22/24 09/17/25 07/02/25 History alprazolam 0.5 mg tablet 0.5 mg PO BID anxiety attack 04/07/25 09/17/25 05/28/25 History alprazolam 2 mg tablet 2 mg PO BID 04/07/25 09/17/25 07/03/25 History amlodipine 5 mg tablet 5 mg PO BID 04/07/25 09/17/25 07/03/25 History losartan 100 mg tablet 100 mg PO DAILY 04/07/25 09/17/25 07/03/25 History hydralazine 50 mg tablet 50 mg PO TID 07/03/25 09/17/25 07/03/25 History metoprolol succinate 100 mg 100 mg PO DAILY 07/03/25 09/17/25 Unknown History tablet,extended release 24 hr sevelamer carbonate 800 mg tablet 1,600 mg PO TIDWM 07/03/25 09/17/25 Unknown History cholecalciferol (vitamin D3) 50 50 mcg PO DAILY 09/17/25 09/17/25 Unknown History mcg (2,000 unit) tablet (Vitamin D3) dextroamphetamine-amphetamine 20 1 tab PO BID 09/17/25 09/17/25 Unknown History mg tablet sodium zirconium cyclosilicate 10 10 g PO SUTUTHSA 09/17/25 09/17/25 Unknown History gram oral powder packet (Lokelma) Physical Exam Exam: Exam: ?General:? Alert oriented x3 ?HEENT:? Head is normocephalic, atraumatic, pupils equal round reactive to light accommodation bilaterally.? Extraocular movements appear intact.? Buccal mucosa is dry, Neck is supple without lymphadenopathy. ?Cardiac:? Sinus on tele. Clear S1-S2, no murmurs rubs or gallops. +JVD ?Pulmonary: Diffuse rhonchi. no wheezes ?Abdomen:? ?Abdomen soft, non-tender, non-distended. Normal bowel sounds. No pulsatile mass. No hepatosplenomegaly. ?Musculoskeletal:? Moving all 4 extremities upon request a major joints, there is no crepitus or tenderness.? The strength is 5/5 bilaterally and throughout all 4 extremities.? Gait not assessed at this point. ?Neurologic:? cranial nerves 2-12 are grossly intact.? No focal deficits noted.Motor strength as above.?? ?Skin:? Bilateral lower extremity edema. No ulcer Vascular:? 2+ pulses upper and lower extremities distally.? Vital Signs: Vital Signs: Last Vital Signs Temp 100.6 F H 09/17/25 04:07 Pulse 87 09/17/25 06:15 Resp 20 09/17/25 04:07 BP 159/81 H 09/17/25 06:15 Pulse Ox 93 09/17/25 04:07 O2 Del Method BiPAP 09/17/25 04:07 BMI result Body Mass Index 24.5 Results Labs 09/17/25 01:35 09/17/25 01:35 Labs: Laboratory Results - last 24 hr 09/17/25 09/17/25 09/17/25 01:35 01:44 02:06 MCV 98.6 H MCH 30.2 MCHC 30.6 L RDW 16.1 H Plt Count 246 D MPV 9.5 Immature Gran % (Auto) 0.4 Neut % (Auto) 60.7 Lymph % (Auto) 25.1 Schleicher % (Auto) 7.3 Eos % (Auto) 5.6 H Baso % (Auto) 0.9 Lymph # (Auto) 4.9 Schleicher # (Auto) 1.4 H Eos # (Auto) 1.1 H Baso # (Auto) 0.2 Abs Immat Gran (auto) 0.08 H Absolute Neuts (auto) 11.9 H Absolute Nucleated RBC 0.000 Nucleated RBC % (auto) 0.0 PT 12.0 INR 1.0 VBG pH 7.30 L VBG pCO2 67 VBG pO2 58 VBG HCO3 34 H VBG O2 Saturation 79.0 VBG Base Excess 5.6 Anion Gap 30 H Estim Creat Clear Calc 7.2 Estimated GFR 6 Random Glucose 217 H Lactic Acid 4.6 H* Lactic Acid F/U @ 2Hr Calcium 9.2 D Magnesium 2.1 Total Bilirubin 0.9 Direct Bilirubin 0.3 AST 27 ALT 15 Alkaline Phosphatase 114 Troponin I High Sens 11.5 D C-Reactive Protein 1.41 H Total Protein 7.9 Albumin 5.0 Ethyl Alcohol < 10 Influenza Type A (PCR) NEGATIVE Influenza Type B (PCR) NEGATIVE RSV RNA Qual (PCR) NEGATIVE SARS-CoV-2 RNA (RT-PCR) NEGATIVE 09/17/25 04:50 MCV MCH MCHC RDW Plt Count MPV Immature Gran % (Auto) Neut % (Auto) Lymph % (Auto) Schleicher % (Auto) Eos % (Auto) Baso % (Auto) Lymph # (Auto) Schleicher # (Auto) Eos # (Auto) Baso # (Auto) Abs Immat Gran (auto) Absolute Neuts (auto) Absolute Nucleated RBC Nucleated RBC % (auto) PT INR VBG pH VBG pCO2 VBG pO2 VBG HCO3 VBG O2 Saturation VBG Base Excess Anion Gap Estim Creat Clear Calc Estimated GFR Random Glucose Lactic Acid Lactic Acid F/U @ 2Hr 1.3 Calcium Magnesium Total Bilirubin Direct Bilirubin AST ALT Alkaline Phosphatase Troponin I High Sens C-Reactive Protein Total Protein Albumin Ethyl Alcohol Influenza Type A (PCR) Influenza Type B (PCR) RSV RNA Qual (PCR) SARS-CoV-2 RNA (RT-PCR) Assessment and Plan (1) Acute hypoxic respiratory failure: Status: Resolved (2) Acute exacerbation of CHF (congestive heart failure): Status: Resolved (3) Pulmonary edema: Status: Acute (4) Hypertensive emergency: Status: Acute Plan 70-year-old male with a past medical history of end-stage renal disease (on HD M,W,F), congestive heart failure, diabetes mellitus, hypothyroidism and previous cardiac Arrest (02/2025) admitted to ICU for management of acute hypoxic respiratory failure due to pulmonary edema in the setting of ESRD Plan: Neuro: No acute issues. Cardiac: Congestive heart failure exacerbation: ?Patient has underlying ESRD, chest x-ray consistent with pulmonary edema. ?Did not respond well with Lasix in the emergency department. ?We will consult Nephrology for dialysis session. Hypertensive emergency: ?Patient is hypertensive with blood pressure consistently staying about 200s. ?Requiring initiation of nitroglycerin drip. ?Likely related to Congestive heart failure exacerbation. ?Should improve after dialysis. ?Wean off nitroglycerin drip as tolerated. Elevated lactic: ?Elevated lactate likely related to Congestive heart failure exacerbation, no evidence of acute infection. ?Lactic improved after initiation of nitroglycerin drip. Pulmonary Acute hypoxic respiratory failure due to pulmonary edema/Congestive heart failure exacerbation: ?Patient requiring BiPAP support. ?No evidence of respiratory infection at this time. Renal: ESRD on hemodialysis (M,W,F): ?Patient and not sure who renal doctor is, it appears patient has seen Nephrology tends to follow the patient with he is inpatient. Contacted, Dr Allen, agrees with dialysis. Nephrology service care appreciated. Endo: Underlying diabetes mellitus. ?Patient is NPO while on BiPAP. ?Continue q.6 hour POCs GI: No acute issues. ID: No acute issues Heme/Onc: No acute issues. Psych: No acute issues. Miscellaneous: No acute issues. Prophylaxis: ?Subcu heparin Diet: NPO while on BiPAP Critical care time spent: 60 minutes
[2025-09-17 07:16] LABS: Glucose, Whole Blood 110 mg/dL (60-115)
--- NOTE | 2025-09-17 08:21 | PHA.MEDREC ---
Pharmacy Consult ? Medication Reconciliation Pharmacy has completed the medication reconciliation. Spoke with pt's to confirm medications.
[2025-09-17 08:29] LABS: VBG HCO3 38 mmol/L (22-26); VBG O2 % Saturation 100.0 %
--- NOTE | 2025-09-17 11:27 | PM.EVENT ---
Event Note Date of Service: 09/18/25 Event Note: Patient seen and examined and downgraded by ICU team. Seen and examined again Physical exam and assessment and plan as per ICU note. blood pressure slowly introduce htn meds for today-intially blood pressure on admission boderline , continue to moniter Time Spent With Patient Time: Total time managing care of this patient today ____ minutes.
--- NOTE | 2025-09-17 11:53 | PHA.PROG ---
Admission Date/Time: September 17, 2025 06:26 Indication: Weight in k.1 kg Adjusted body weight in Kg: [place] body weight in Kg: Obesity Dosing Indication % IBW: Serum Creatinine - Last 168 Hours 09/17/25 01:35 Creatinine 8.68 H* Estimated CrCl and GFR - Last 168 Hours 09/17/25 01:35 Estim Creat Clear Calc 7.2 Estimated GFR 6 Vancomycin Loading Dose: 1750 MG Current Vancomycin Dosing Regimen: Vancomycin Monitoring using AUC goal of 400 - 600 range with trough as surrogate marker: Date and Time for next Vancomycin Level to be drawn:09/18/25 10 AM Pharmacist Comments on Vancomycin Plan:WILL DOSE BY LEVEL BASED ON CRCL OF 7.2 Vancomycin dosing will take advantage of [employer] as a clinical decision support tool that uses Bayesian modeling to calculate individual patient's pharmacokinetic parameters and forecast the patient's drug concentration time course with the target goal AUC 24 range of 400 - 600 mg/L/hr.
[2025-09-17 11:54] LABS: Venous Blood Gas Refer to POC result
[2025-09-17 11:55] LABS: Glucose, Whole Blood 126 mg/dL (60-115)
--- NOTE | 2025-09-17 12:37 | MHC.CM.PN ---
Addendum entered by Yessi Koo RN 09/17/25 18:28: Transferring to [facility] tele. No longer requiring ICU level of care. Original Note: IMM DELIVERED TO HCP/ [facility] PT IS CURRENTLY LETHARGIC AND RECEIVING BEDSIDE HD IN ICU. PT LIVES WITH SPOUSE AND USES CANE/WALKER/W/C DEPENDING ON THE DAY. PT ATTENDS HD AT [facility] M-- , TRANSPORTS. + HCP ON FILE. PCP DR. ALLEN DP: HOME WITH RESUMPTION OF [facility] SERVICES IS THE GOAL. RETURN REFERRAL SENT TO [facility]. PT MAY BENFIT FROM A P.T. EVAL BEFORE DC. WILL TRANSPORT HOME. CM WILL CONTINUE TO FOLLOW FOR ANY CHANGE TO DC PLAN/NEEDS.
[2025-09-17] MEDS: Sevelamer Carbonate Tablet 800 MG TABLET 1600 MG PO (12:45)
[2025-09-17] MEDS: vancomycin HCL 1,000 MG, vancomycin HCL 750 MG in 0.9 % Sodium Chloride 500 ML 267.5 MG IV (13:28)
[2025-09-17 15:42] LABS: Glucose, Whole Blood 135 mg/dL (60-115)
--- NOTE | 2025-09-17 17:32 | PC.NURSE ---
The patient arrived at the ICU approx. 0715 from ED.? Upon initial assessment Pt Drowsy, following simple commands, on BiPAP, Crackles BL Lower. Now on RA Sp02 90s. Sinus rhythm on tele.?Nitroglycerin gtt off per DEC. Poor po intake, oliguric. HD performed, 7L removed.? Scattered scratches.Peripheral IV.? AV fistula to right arm.
[2025-09-17 18:05] LABS: Glucose, Whole Blood 117 mg/dL (60-115)
[2025-09-17] MEDS: Amphetamine Mixed Salts 20 MG TABLET PO (19:54)
[2025-09-18 03:38] VITALS: BP 143/68; PULSE 95; RESP 20; TEMP 37; O2SAT 95
[2025-09-18 05:08] VITALS: BMI 22.0
[2025-09-18 05:13] LABS: Glucose, Whole Blood 112 mg/dL (60-115)
[2025-09-18] MEDS: Levothyroxine Sodium 112 MCG, Levothyroxine Sodium 25 MCG 137 MCG PO (06:13)
[2025-09-18 07:31] VITALS: BP 161/78; PULSE 89; RESP 20; TEMP 36.8; O2SAT 96
[2025-09-18 07:36] LABS: Hematocrit 32.6 % (42.0-52.0); Hemoglobin 10.6 g/dl (14.0-18.0); Imm Gran Abs Auto 0.03 X10*3/uL (0.00-0.03); Imm Gran Pct Auto 0.4 % (0.0-0.4); Lymphocytes Absolute Auto 1.2 X10*3/uL (1.2-4.9); Mean Corpuscular HGB Conc 32.5 g/dl (31.0-36.0); Mean Corpuscular Hemoglobin 30.5 pg (27.0-33.0); Mean Corpuscular Volume 93.7 fL (80.0-98.0); NRBC Abs Auto 0.000 X10*3/uL (0.0-0.012); NRBC Pct Auto 0.0 /100WBC (0.0-0.2); Red Blood Count 3.48 X10*6/uL (4.60-5.80); White Blood Count 7.3 X10*3/uL (4.8-10.8)
[2025-09-18 07:38] LABS: VBG HCO3 38 mmol/L (22-26); VBG O2 % Saturation 75.0 %
[2025-09-18 07:39] LABS: Venous Blood Gas Refer to POC result
[2025-09-18 08:02] LABS: Albumin Level 3.9 g/dL (3.5-5.0); Anion Gap 17 (12-20); Blood Urea Nitrogen 35 mg/dL (9-16); Calcium 9.3 mg/dL (8.4-10.2); Carbon Dioxide 31 mmol/L (22-29); Chloride 97 mmol/L (96-108); Creatinine Clr Calc Pharmacy 8.1; Estimated Glomerular Filt Rate 7; Magnesium 2.1 mg/dL (1.6-2.6); Potassium 5.1 mmol/L (3.3-5.1); Sodium 140 mmol/L (135-145)
[2025-09-18] MEDS: Sevelamer Carbonate Tablet 800 MG TABLET 1600 MG PO ×3 (08:21→17:09)
[2025-09-18] MEDS: Metoprolol Succinate ER 100 MG TAB.ER.24H PO (08:22)
[2025-09-18] MEDS: Amphetamine Mixed Salts 20 MG TABLET PO ×2 (08:22→20:41)
--- NOTE | 2025-09-18 08:29 | HE.PHANOTE ---
Re Vanc Random came back high, expected due to poor renal. Will continue to hold dose and get a level 09/20/25 @0900 when it should be ~16 mg/dL. If dialysis ordered will change to post-dialysis levels.
[2025-09-18 10:16] LABS: Platelet Count 116 X10*3/uL (160-400)
[2025-09-18 10:17] LABS: MANUAL DIFF FLAG SCAN
[2025-09-18 11:49] LABS: Glucose, Whole Blood 133 mg/dL (60-115)
[2025-09-18 11:50] VITALS: BP 170/80; PULSE 87; RESP 16; TEMP 36.8; O2SAT 100
[2025-09-18 16:51] VITALS: BP 145/83; PULSE 90; RESP 16; TEMP 36.2; O2SAT 99
--- NOTE | 2025-09-18 16:52 | P.PNIM_ITS ---
Subjective Subjective Date of Service: 09/18/25 Interval History: esrd, fluid overload Review of Systems sob somewhat improving, Hypotension fluctuating BP. Physical Exam 2 Exam: Exam: Appearance: Alert.? Oriented X3.? cvs: rrr, [id number]. res: air enrty dimished at bases ,has few rales. abd: no rebound or guarding ,nt, bs present. ext pulses present , no cyanosis. neuro: axo3 , nonfocal. Vital Signs: Vital Signs: Last Vital Signs Temp 97.1 F 09/18/25 16:51 Pulse 90 09/18/25 16:51 Resp 16 09/18/25 16:51 BP 145/83 H 09/18/25 16:51 Pulse Ox 99 09/18/25 16:51 O2 Del Method Room Air 09/18/25 16:51 FiO2 21 09/17/25 10:00 BMI result Body Mass Index 22.0 Objective Data Active Medications Alprazolam (Alprazolam 0.5 Mg Tablet) 2 mg PO BID [facility] Last Admin: 09/18/25 08:22 Dose: 2 mg Documented By: GENESIS Alprazolam (Alprazolam 0.5 Mg Tablet) 0.5 mg PO BID PRN PRN Reason: anxiety/restlessness Last Admin: 09/17/25 17:07 Dose: 0.5 mg Documented By: SKYLER Amlodipine Besylate (Amlodipine Besylate 5 Mg Tablet) 5 mg PO BID [facility]; Protocol Last Admin: 09/18/25 08:22 Dose: 5 mg Documented By: GENESIS Amphetamine/Dextroamphetamine (Amphetamine Mixed Salts 20 Mg Tablet) 20 mg PO BID [facility] Last Admin: 09/18/25 08:22 Dose: 20 mg Documented By: GENESIS Atorvastatin Calcium (Atorvastatin Calcium 40 Mg Tablet) 40 mg PO BEDTIME [facility] Last Admin: 09/17/25 19:54 Dose: 40 mg Documented By: RUFUS Cefuroxime Axetil (Cefuroxime Axetil 250 Mg Tablet) 250 mg PO Q24H [facility] Doxycycline Monohydrate (Doxycycline Monohydrate 100 Mg Capsule) 100 mg PO Q12H [facility] Last Admin: 09/18/25 11:53 Dose: 100 mg Documented By: GENESIS Heparin Sodium (Porcine) (Heparin Sodium,Porcine 5,000 Unit/Ml Vial) 5,000 unit SUBCUT Q8H [facility] Last Admin: 09/18/25 08:22 Dose: 5,000 unit Documented By: GENESIS Hydralazine HCl (Hydralazine Hcl 50 Mg Tablet) 50 mg PO TID [facility]; Protocol Last Admin: 09/18/25 08:22 Dose: 50 mg Documented By: GENESIS Hydromorphone HCl (Hydromorphone Hcl 1 Mg/Ml Syringe) 1 mg IVPUSH Q4H PRN; Protocol PRN Reason: Pain, Severe (Pain Scale 7-10) Last Admin: 09/17/25 09:28 Dose: 1 mg Documented By: SKYLER Hydromorphone HCl (Hydromorphone Hcl 2 Mg Tablet) 4 mg PO Q3H PRN PRN Reason: Pain, Moderate(Pain Scale 4-6) Last Admin: 09/18/25 11:52 Dose: 4 mg Documented By: GENESIS Levothyroxine Sodium 112 mcg/ (Levothyroxine Sodium 25 mcg) 137 mcg PO DAILY@0600 [facility] Last Admin: 09/18/25 06:13 Dose: 137 mcg Documented By: RUFUS Losartan Potassium (Losartan Potassium 50 Mg Tablet) 100 mg PO DAILY [facility]; Protocol Last Admin: 09/18/25 11:53 Dose: 100 mg Documented By: GENESIS Metoprolol Succinate (Metoprolol Succinate Er 100 Mg Tab.Er.24h) 100 mg PO DAILY [facility]; Protocol Last Admin: 09/18/25 08:22 Dose: 100 mg Documented By: GENESIS Pharmacy Consult (Consult Rx Vancomycin Dosing) 1 each MISCELLANE DAILY PRN PRN Reason: Consult order Sevelamer Carbonate (Sevelamer Carbonate Tablet 800 Mg Tablet) 1,600 mg PO TIDWM [facility] Last Admin: 09/18/25 11:29 Dose: 1,600 mg Documented By: GENESIS Sodium Zirconium Cyclosilicate (Sodium Zirconium Cyclosilicate 10 Gm Powd.Pack) 10 gm PO SuTuThSa@0900 [facility] Last Admin: 09/17/25 12:45 Dose: Not Given Documented By: SKYLER Non-Admin Reason: Physician Held Med Vitamin D (Cholecalciferol (Vitamin D3) 25 Mcg Tablet) 50 mcg PO DAILY [facility] Last Admin: 09/18/25 08:22 Dose: 50 mcg Documented By: GENESIS Labs 09/18/25 07:27 09/18/25 07:27 Labs: Laboratory Results - last 24 hr 09/17/25 09/18/25 09/18/25 18:01 05:09 07:27 MCV 93.7 MCH 30.5 MCHC 32.5 RDW 15.5 Plt Count 116 L D MPV 9.4 Immature Gran % (Auto) 0.4 Neut % (Auto) 64.2 Lymph % (Auto) 17.0 L Bonner % (Auto) 9.6 Eos % (Auto) 8.0 H Baso % (Auto) 0.8 Lymph # (Auto) 1.2 Bonner # (Auto) 0.7 Eos # (Auto) 0.6 H Baso # (Auto) 0.1 Abs Immat Gran (auto) 0.03 Absolute Neuts (auto) 4.7 Absolute Nucleated RBC 0.000 Nucleated RBC % (auto) 0.0 Smear Tech's Comments VERIFIED VBG pH VBG pCO2 VBG pO2 VBG HCO3 VBG O2 Saturation VBG Base Excess Anion Gap 17 Estim Creat Clear Calc 8.1 Estimated GFR 7 POC Glucose 117 H 112 Random Glucose 104 Calcium 9.3 Phosphorus 4.5 Magnesium 2.1 Albumin 3.9 Random Vancomycin 28.5 H* 09/18/25 09/18/25 07:33 11:36 MCV MCH MCHC RDW Plt Count MPV Immature Gran % (Auto) Neut % (Auto) Lymph % (Auto) Bonner % (Auto) Eos % (Auto) Baso % (Auto) Lymph # (Auto) Bonner # (Auto) Eos # (Auto) Baso # (Auto) Abs Immat Gran (auto) Absolute Neuts (auto) Absolute Nucleated RBC Nucleated RBC % (auto) Smear Tech's Comments VBG pH 7.55 H VBG pCO2 43 VBG pO2 45 VBG HCO3 38 H VBG O2 Saturation 75.0 VBG Base Excess 14.7 Anion Gap Estim Creat Clear Calc Estimated GFR POC Glucose 133 H Random Glucose Calcium Phosphorus Magnesium Albumin Random Vancomycin Microbiology Microbiology Results: Microbiology 09/17/25 02:06 Blood Culture - Preliminary Blood - Venous No growth after 24 hours. 09/17/25 02:05 Blood Culture - Preliminary Blood - Venous No growth after 24 hours. Assessment and Plan (1) Hypertensive emergency: Status: Acute (2) ESRD (end stage renal disease): Status: Acute Plan 70-year-old male with a past medical history of end-stage renal disease (on HD M,W,F), congestive heart failure, diabetes mellitus, hypothyroidism and previous cardiac Arrest (02/2025) admitted to ICU for management of acute hypoxic respiratory failure due to pulmonary edema in the setting of ESRD Acute hypoxemic respiratory failure secondary to Congestive heart failure exacerbation: ?Patient has underlying ESRD, chest x-ray consistent with pulmonary edema. ?Did not respond well with Lasix in the emergency department. ? s/p hd yesterday- shortness of breaths seems to be improving , also received BiPAP ,still seems sob improving possible need hd also ? pneumonia vs fluid overload -on iv antibiotics -patient blood culture negative at 24 hours, we will switch to p.o. antibiotics, taper oxygen Hypotension uncontrolled: ?Off nitro drip yesterday. Started hold her blood pressure medications, monitor blood pressure closely. ESRD on hemodialysis (M,W,F): Nephrology following -possible dialysis today IDDM Sliding scale insulin Diabetic diet Prophylaxis: ?Subcu heparin Ongoing need: Hypoxemic respiratory failure secondary to fluid overload-need dialysis, renal function electrolyte monitoring, monitor respiratory status closely, taper oxygen. Quality Stroke Does the patient have a stroke diagnosis?: No VTE Prior VTE?: No VTE Risk Level:: Medical - moderate - high VTE Device Contraindication: N/A - Device Ordered VTE Drug Contraindication: N/A - Med Ordered
--- NOTE | 2025-09-18 16:56 | PM.CNNEP ---
History of Present Illness Reason for Consult Consult date: 09/18/25 Chief Complaint Chief complaint: Acute Respiratory Failure History of Present Illness Narrative: 70-year-old gentleman with PMH of ESRD on maintenance hemodialysis MWF, last dialysis on Thursday, diabetes mellitus, hypothyroidism, GERD admitted to the hospital yesterday with worsening shortness of breath and hypertension. His chest x-ray showed pulmonary edema, patient was tachypneic and was placed on BiPAP support. So he was emergently initiated on hemodialysis for ultrafiltration with which respiratory status improved and he was transferred out of ICU yesterday. He received his 2nd session of dialysis this morning which he tolerated well without any issues. Review of Systems Review of Systems Const : no body aches, no chills, no excessive sweating and no fatigue Eyes: no blurry vision and no change in vision ENT: no bleeding gums and no change in voice, no dizziness Card: no chest pain, no shortness of breath, no orthopnea, no PND Resp: no cough, no excessive phlegm production, no SOB GI: no abdominal pain and no nausea, no vomiting : no hematuria, no urinary frequency and no difficulty voiding Musc: no abnormal gait, no bone pain Neuro: no abnormal movements, no weakness, no dizziness, no abnormal gait and no behavioral changes Psych: no behavioral changes and no change in appetite Endo: no change in body appearance, no cold intolerance, no excessive sweating and no fatigue PMFSH Past Medical History Medical History ESRD needing dialysis Hypothyroidism Influenza A CHF (congestive heart failure) Acute anemia Multifactorial gait disorder Pneumonia End stage renal disease on dialysis Occult blood positive stool Anemia Internal jugular vein thrombosis Abnormality of gait ESRD needing dialysis Secondary hyperparathyroidism (of renal origin) Anemia in chronic kidney disease DONIS (acute kidney injury) Diabetes Kidney failure HTN (hypertension) Social History Social History Household Members: Spouse Household Members Other:: 2 Housing: House Are you a primary manager career to a significant other at home: No Do you presently have visiting nurse or other home services: Yes Alcohol intake: former Comment: sitter in place Patient Tobacco Use Status: Never used Tobacco Cigarette Packs Per Day: 0 Cigarettes Per Day: 0 Years Smoked: NA Smoked in Last 30 Days: No e-Cigarette/Vaping Use: Never Used Second Hand Smoke Exposure: No Use of substances other than those prescribed or required for medical reasons: No Currently Displaying Signs/Symptoms of Drug Intoxication Withdrawal: No Have you been hit, kicked, punched, or otherwise hurt by someone within the past year? If so, by whom?: No Do you feel safe in your current relationship?: No Is there a partner from a previous relationship who is making you feel unsafe now?: No Are you made to feel afraid or neglected: No Advance Directives: Yes Advance Directives on File: Yes Advance Directives Date on File: 09/07/23 Recently lost weight without trying: No Nutrition Risks: No Nutritional Risk Poor oral hygiene: No service: No Meds Allergies Allergy/AdvReac Type Severity Reaction Status Date / Time Penicillins (PENICILLINS) Allergy Unknown RASH Verified 09/17/25 01:46 tramadol (From ULTRAM) Allergy Unknown RASH Verified 09/17/25 01:46 trazodone (TRAZODONE) Allergy Unknown PRIAPISM Verified 09/17/25 01:46 risperidone (RISPERIDONE) AdvReac Severe dizzy, EPS Verified 09/17/25 01:46 Active Medications: Current Medications Alprazolam (Alprazolam 0.5 Mg Tablet) 2 mg PO BID [facility] Last Admin: 09/18/25 08:22 Dose: 2 mg Alprazolam (Alprazolam 0.5 Mg Tablet) 0.5 mg PO BID PRN PRN Reason: anxiety/restlessness Last Admin: 09/17/25 17:07 Dose: 0.5 mg Amlodipine Besylate (Amlodipine Besylate 5 Mg Tablet) 5 mg PO BID [facility]; Protocol Last Admin: 09/18/25 08:22 Dose: 5 mg Amphetamine/Dextroamphetamine (Amphetamine Mixed Salts 20 Mg Tablet) 20 mg PO BID [facility] Last Admin: 09/18/25 08:22 Dose: 20 mg Atorvastatin Calcium (Atorvastatin Calcium 40 Mg Tablet) 40 mg PO BEDTIME [facility] Last Admin: 09/17/25 19:54 Dose: 40 mg Cefuroxime Axetil (Cefuroxime Axetil 250 Mg Tablet) 250 mg PO Q24H [facility] Doxycycline Monohydrate (Doxycycline Monohydrate 100 Mg Capsule) 100 mg PO Q12H [facility] Last Admin: 09/18/25 11:53 Dose: 100 mg Heparin Sodium (Porcine) (Heparin Sodium,Porcine 5,000 Unit/Ml Vial) 5,000 unit SUBCUT Q8H [facility] Last Admin: 09/18/25 08:22 Dose: 5,000 unit Hydralazine HCl (Hydralazine Hcl 50 Mg Tablet) 50 mg PO TID [facility]; Protocol Last Admin: 09/18/25 08:22 Dose: 50 mg Hydromorphone HCl (Hydromorphone Hcl 1 Mg/Ml Syringe) 1 mg IVPUSH Q4H PRN; Protocol PRN Reason: Pain, Severe (Pain Scale 7-10) Last Admin: 09/17/25 09:28 Dose: 1 mg Hydromorphone HCl (Hydromorphone Hcl 2 Mg Tablet) 4 mg PO Q3H PRN PRN Reason: Pain, Moderate(Pain Scale 4-6) Last Admin: 09/18/25 11:52 Dose: 4 mg Levothyroxine Sodium 112 mcg/ (Levothyroxine Sodium 25 mcg) 137 mcg PO DAILY@0600 [facility] Last Admin: 09/18/25 06:13 Dose: 137 mcg Losartan Potassium (Losartan Potassium 50 Mg Tablet) 100 mg PO DAILY [facility]; Protocol Last Admin: 09/18/25 11:53 Dose: 100 mg Metoprolol Succinate (Metoprolol Succinate Er 100 Mg Tab.Er.24h) 100 mg PO DAILY [facility]; Protocol Last Admin: 09/18/25 08:22 Dose: 100 mg Pharmacy Consult (Consult Rx Vancomycin Dosing) 1 each MISCELLANE DAILY PRN PRN Reason: Consult order Sevelamer Carbonate (Sevelamer Carbonate Tablet 800 Mg Tablet) 1,600 mg PO TIDWM [facility] Last Admin: 09/18/25 11:29 Dose: 1,600 mg Sodium Zirconium Cyclosilicate (Sodium Zirconium Cyclosilicate 10 Gm Powd.Pack) 10 gm PO SuTuThSa@0900 [facility] Last Admin: 09/17/25 12:45 Dose: Not Given Vitamin D (Cholecalciferol (Vitamin D3) 25 Mcg Tablet) 50 mcg PO DAILY [facility] Last Admin: 09/18/25 08:22 Dose: 50 mcg Home Medications ?Medication ?Instructions ?Recorded ?Confirmed ?Last Taken ?Type blood sugar diagnostic (FreeStyle 07/11/21 10/30/24 10/30/24 09:00 History Lite Strips) levothyroxine 137 mcg tablet 137 mcg PO DAILY@0600 07/11/21 09/17/25 07/03/25 History pen needle, diabetic 31 gauge x 07/11/21 10/30/24 10/30/24 09:00 History 03/03 (BD Ultra-Fine Short Pen Needle) atorvastatin 40 mg tablet 40 mg PO BEDTIME 02/22/24 09/17/25 07/02/25 History alprazolam 0.5 mg tablet 0.5 mg PO BID anxiety attack 04/07/25 09/17/25 05/28/25 History alprazolam 2 mg tablet 2 mg PO BID 04/07/25 09/17/25 07/03/25 History amlodipine 5 mg tablet 5 mg PO BID 04/07/25 09/17/25 07/03/25 History losartan 100 mg tablet 100 mg PO DAILY 04/07/25 09/17/25 07/03/25 History hydralazine 50 mg tablet 50 mg PO TID 07/03/25 09/17/25 07/03/25 History metoprolol succinate 100 mg 100 mg PO DAILY 07/03/25 09/17/25 Unknown History tablet,extended release 24 hr sevelamer carbonate 800 mg tablet 1,600 mg PO TIDWM 07/03/25 09/17/25 Unknown History cholecalciferol (vitamin D3) 50 50 mcg PO DAILY 09/17/25 09/17/25 Unknown History mcg (2,000 unit) tablet (Vitamin D3) dextroamphetamine-amphetamine 20 1 tab PO BID 09/17/25 09/17/25 Unknown History mg tablet sodium zirconium cyclosilicate 10 10 g PO SUTUTHSA 09/17/25 09/17/25 Unknown History gram oral powder packet (Lokelma) Physical Exam Vital Signs: Last Vital Signs Temp 97.1 F 09/18/25 16:51 Pulse 90 09/18/25 16:51 Resp 16 09/18/25 16:51 BP 145/83 H 09/18/25 16:51 Pulse Ox 99 09/18/25 16:51 O2 Del Method Room Air 09/18/25 16:51 FiO2 21 09/17/25 10:00 BMI result Body Mass Index 22.0 General: not in any acute distress, ill appearing Nutritional Appearance: well nourished and overweight Eyes: appearance normal, both eyes and all related structures; Alignment and Position: alignment normal and position normal Neck: No lymphadenopathy, no thyromegaly Resp: bilateral air entry equal, no added sounds present Cardio: Regular rate, regular rhythm; Heart sounds: S1 normal heart sound present and S2 normal heart sound present GI: soft, nontender, no guarding, no hepatosplenomegaly : bladder normal to inspection, bladder normal to palpation, no renal angle tenderness Skin: no rashes or lesions noted and elasticity normal Neuro: alert, oriented x 3, moves all extremities Results Lab Results 09/18/25 07:27 09/18/25 07:27 Lab results: Chemistry 09/17/25 09/18/25 01:35 07:27 Sodium 146 H 140 Potassium 4.6 5.1 Carbon Dioxide 29 31 H BUN 40 H 35 H Creatinine 8.68 H* 7.49 H* Calcium 9.2 D 9.3 Phosphorus 4.5 Hematology 09/17/25 09/18/25 01:35 07:27 WBC 19.6 H 7.3 Hgb 12.5 L 10.6 L Plt Count 246 D 116 L D Assessment and Plan (1) Hypertensive emergency: Status: Acute (2) ESRD (end stage renal disease): Status: Acute Plan 1. ESRD on HD HD schedule: [facility], last session: Yesterday due to pulmonary edema needing emergent dialysis, received his regular session of dialysis this morning. Possibly had high salt diet during the festival, as patient states he did not miss any sessions of dialysis. Access: Volume Status: Euvolemic this morning, hypervolemic yesterday HD today with goals: duration 3.5 hours UF: 7 L yesterday, 2.5 L today 2. Hyperkalemia: Continue local mass needed Hyperphosphatemia: continue sevelamer 1600 mg with meals dietary phosphate restriction less than 1g/day 3. Anemia of ESRD: Hb 10.6, no need for SELVIN 4. Hypertension: Hold antihypertensives prior to HD continue losartan 100 mg, hydralazine 50 t.i.d., metoprolol 100 mg Can switch amlodipine 5 mg b.i.d. to 10 mg daily. Thanks for your consult, we will continue to follow up this patient along with you. Procedures Date of Service Date of Service: 09/18/25
[2025-09-18 18:26] LABS: Glucose, Whole Blood 239 mg/dL (60-115)
[2025-09-18 18:58] VITALS: BP 117/57; PULSE 89; RESP 16; TEMP 37; O2SAT 94
[2025-09-18 23:26] VITALS: BP 136/67; PULSE 80; RESP 16; TEMP 36.9; O2SAT 98
[2025-09-19 03:17] VITALS: BP 150/72; PULSE 79; RESP 16; TEMP 36.6; O2SAT 97
[2025-09-19] MEDS: Levothyroxine Sodium 112 MCG, Levothyroxine Sodium 25 MCG 137 MCG PO (05:30)
[2025-09-19 05:35] LABS: Glucose, Whole Blood 113 mg/dL (60-115)
[2025-09-19 05:53] VITALS: BMI 21.2
[2025-09-19 07:09] LABS: Creatinine Clr Calc Pharmacy 9.2; Estimated Glomerular Filt Rate 9
[2025-09-19 07:33] VITALS: BP 145/77; PULSE 92; RESP 18; TEMP 36.8; O2SAT 97
[2025-09-19 09:15] LABS: Anion Gap 18 (12-20); Blood Urea Nitrogen 33 mg/dL (9-16); Calcium 9.7 mg/dL (8.4-10.2); Carbon Dioxide 31 mmol/L (22-29); Chloride 94 mmol/L (96-108); Potassium 4.9 mmol/L (3.3-5.1); Sodium 138 mmol/L (135-145)
[2025-09-19] MEDS: Amphetamine Mixed Salts 20 MG TABLET PO (09:21)
[2025-09-19] MEDS: Metoprolol Succinate ER 100 MG TAB.ER.24H PO (09:22)
[2025-09-19] MEDS: Sevelamer Carbonate Tablet 800 MG TABLET 1600 MG PO ×2 (09:22→11:43)
[2025-09-19 09:50] LABS: Hematocrit 37.0 % (42.0-52.0); Hemoglobin 12.3 g/dl (14.0-18.0)
[2025-09-19 11:18] VITALS: BP 149/88; PULSE 87; RESP 18; TEMP 37; O2SAT 99
[2025-09-19 11:33] LABS: Glucose, Whole Blood 132 mg/dL (60-115)
--- NOTE | 2025-09-19 13:51 | MHC.CM.PN ---
Medically cleared for dc to home today. [facility] notified of dc.
--- NOTE | 2025-09-19 13:53 | PM.DS ---
DS: Providers Provider Date of Service: 09/19/25 Date of admission: 09/17/25 06:26 Date of discharge: 09/19/25 Primary care physician: Matias Tan MD Consults: 09/17/25 06:29 Consult to Nephrology Stat Consulting Provider: [facility] Cameron Meyers Reason for consultation: Acute respiratory failure, pulm edema. requires emergent dialysis 09/17/25 13:04 Consult to Nephrology Routine Consulting Provider: [facility] Cameron Meyers Reason for consultation: esrd on hd Has provider been notified: No Attending physician on discharge: Chandler Garcia Discharging clinician: Chandler Garcia DS: Diagnosis Discharge Diagnosis (1) Hypertensive emergency: Status: Acute (2) ESRD (end stage renal disease): Status: Acute DS: Summary Hospital Course Hospital Course: HPI:70-year-old male with a past medical history of end-stage renal disease (on HD M,W,F), congestive heart failure with preserved EF, diabetes mellitus, hypothyroidism and previous cardiac Arrest (02/2025), who presented with worsening dyspnea.? Patient's stated the patient developed shortness of breath tonight, and while driving to the hospital he was in respiratory distress, diaphoretic and using accessory muscle. ? reported patient had normal dialysis sessions last week ? On arrival to the emergency department patient's O2 saturation in the 60s, tachypneic to 30s, blood pressure elevated to 190/90.? Patient was quickly placed on BiPAP with improvement in oxygenation. Laboratory data was significant for WBC 19.6, chloride 92, BUN 40, an 8.68, lactic acid 4.6 Venous gas:? 7.30/67/58/34 IMAGING: CHEST X-RAY:? Consistent with pulmonary edema ED COURSE: He received 80 mg IV push Lasix, ceftriaxone 2 g, nitroglycerin transdermal.? Patient continued to be profoundly hypertensive requiring initiation of nitroglycerin drip Hospital course: 70-year-old male with a past medical history of end-stage renal disease (on HD M,W,F), congestive heart failure, diabetes mellitus, hypothyroidism and previous cardiac Arrest (02/2025) admitted to ICU for management of acute hypoxic respiratory failure due to pulmonary edema in the setting of ESRD. Acute hypoxemic respiratory failure secondary to Congestive heart failure exacerbation: ?Patient has underlying ESRD, chest x-ray consistent with pulmonary edema. ?Did not respond well with Lasix in the emergency department. ? Patient received hemodialysis x2, also received BiPAP initially. With the above management patient seems to be improved significantly, also patient was started on IV antibiotics question of possible mild pneumonia in the ICU. Respiratory viral panel negative, blood culture negative at 48 hours. also ? pneumonia vs fluid overload -on iv antibiotics -patient blood culture negative at 24 hours, we will switch to p.o. antibiotics, off oxygen, asymptomatic. Hypotension uncontrolled: Initially received?Off nitro drip yesterday. Started hold her blood pressure medications, monitor blood pressure closely. Strongly advised compliance with blood pressure medication, monitor blood pressures closely home. Further management outpatient ESRD on hemodialysis (M,W,F): Nephrology following -possible dialysis today Plan: continue hd complete antibiotics , repeatt chest imaging in 3-4 weeks moniter bp closely Rest as above. Patient is to follow-up outpatient PCP,, Nephro. Above management discussed with the patient and his in detail length they both understand and in agreement with the above plan, time spent 50 minute. Time Attestation Total time managing care of this patient today: 50 mintues. Discharge Coordination Time (in mins): 50 Quality: Safe Use of Opioids Does Pt have an Active Cancer Diagnosis on the Problem List?: No Quality: Stroke Does the patient have a stroke diagnosis?: No Physical Exam Exam: Exam: Appearance: Alert.? Oriented X3.? cvs: rrr, [id number]. res: air enrty dimished at bases ,has few rales. abd: no rebound or guarding ,nt, bs present. ext pulses present , no cyanosis. neuro: axo3 , nonfocal. Vital Signs: Vital Signs: Last Vital Signs Temp 98.6 F 09/19/25 11:18 Pulse 87 09/19/25 11:18 Resp 18 09/19/25 11:18 BP 149/88 H 09/19/25 11:18 Pulse Ox 99 09/19/25 11:18 O2 Del Method Room Air 09/19/25 11:18 FiO2 21 09/17/25 10:00 BMI result Body Mass Index 21.2 DS: Data Data Completed and Pending Completed studies during hospitalization [Text1]: Procedures Assistance with Respiratory Ventilation, Less than 24 Consecutive Hours, Continuous Positive Airway Pressure (04/07/25) Control Bleeding in Gastrointestinal Tract, Via Natural or Artificial Opening Endoscopic (01/22/25) Excision of Esophagogastric Junction, Via Natural or Artificial Opening Endoscopic, Diagnostic (01/22/25) Excision of Stomach, Pylorus, Via Natural or Artificial Opening Endoscopic, Diagnostic (01/22/25) Insertion of Endotracheal Airway into Trachea, Via Natural or Artificial Opening (03/07/25) Insertion of Infusion Device into Upper Vein, Percutaneous Approach (02/24/25) Inspection of Lower Intestinal Tract, Via Natural or Artificial Opening Endoscopic (01/22/25) Introduction of Vasopressor into Peripheral Vein, Percutaneous Approach (03/07/25) Performance of Cardiac Output, Single, Manual (03/07/25) Performance of Urinary Filtration, Intermittent, Less than 6 Hours Per Day (07/03/25) Respiratory Ventilation, Less than 24 Consecutive Hours (03/07/25) Transfusion of Nonautologous Red Blood Cells into Peripheral Vein, Percutaneous Approach (03/07/25) Labs on day of discharge: Laboratory Results - last 24 hr 09/18/25 09/18/25 09/19/25 17:50 18:22 05:29 Hgb Hct Hold Purple Top Sodium Potassium Chloride Carbon Dioxide Anion Gap BUN Creatinine Estim Creat Clear Calc Estimated GFR POC Glucose 239 H 113 Random Glucose Calcium Random Vancomycin 22.0 H 09/19/25 09/19/25 09/19/25 06:07 09:09 11:12 Hgb 12.3 L Hct 37.0 L Hold Purple Top SEE NOTE Cancelled Sodium 138 Potassium 4.9 Chloride 94 L Carbon Dioxide 31 H Anion Gap 18 BUN 33 H Creatinine 6.38 H* Estim Creat Clear Calc 9.2 Estimated GFR 9 POC Glucose 132 H Random Glucose 95 Calcium 9.7 Random Vancomycin Preliminary micro results at discharge 09/17/25 02:06 Blood Culture - Preliminary Blood - Venous No growth after 48 hours. 09/17/25 02:05 Blood Culture - Preliminary Blood - Venous No growth after 48 hours. Imaging Chest x-ray: My impression: cxr: Bilateral airspace disease, which could be due to pulmonary edema or atypical/viral pneumonia. Discharge Plan Discharge Anticipated Discharge Date/Time: 09/19/25 12:58 Patient Disposition: Home Health Service Discharge Diagnosis: esrd ,fluid overload ,? mild pneumonia Referrals: [facility] [Outside] - 1 Week Matias Tan MD [Primary Care Provider, Internal Medicine] - 1 Week Discharge Medications: New cefuroxime axetil 250 mg Tablet 250 mg PO Q24H Qty: 12 0RF doxycycline monohydrate 100 mg Capsule 100 mg PO Q12H Qty: 12 0RF Continued levothyroxine 137 mcg tablet 137 mcg PO DAILY@0600 (DME) FreeStyle Lite Strips Strip MISCELLANEOUS TID (DME) pen needle, diabetic [BD Ultra-Fine Short Pen Needle] 31 gauge x 5/16 needle subcut DAILY hydromorphone 4 mg tablet 4 mg PO Q3H PRN (Reason: Pain) Qty: 10 0RF Rx Instructions: Partial Fill upon patient request. hydralazine 50 mg tablet 50 mg PO TID sevelamer carbonate 800 mg tablet 1,600 mg PO TIDWM metoprolol succinate 100 mg tablet extended release 24 hr 100 mg PO DAILY atorvastatin 40 mg tablet 40 mg PO BEDTIME amlodipine 5 mg tablet 5 mg PO BID alprazolam 0.5 mg tablet 0.5 mg PO BID alprazolam 2 mg tablet 2 mg PO BID losartan 100 mg tablet 100 mg PO DAILY dextroamphetamine-amphetamine 20 mg tablet 1 tab PO BID cholecalciferol (vitamin D3) [Vitamin D3] 50 mcg (2,000 unit) Tablet 50 mcg PO DAILY Lokelma 10 gram Powder In Packet 10 g PO SUTUTHSA Rx Instructions: on non-dialysis days Discharge Orders: Discharge Order (Routine); Ordered 09/19/25 Ordered By: Chandler Garcia Diet: Advance to usual diet Activity on Discharge: As tolerated Stand Alone Forms: Patient Portal Discharge page Print Language: Bolivian Care Plan Goals: continue hd complete antibiotics , repeatt chest imaging in 3-4 weeks moniter bp closely Health Concerns: as above. Plan of Treatment: as above Assessment: as above Patient Instructions: Pneumonia (DC) Discharge Date/Time: 09/19/25 14:51
[2025-09-19 14:13] LABS: Chlamydia pneumoniae PCR Not Detected (Not Detect.); Coronavirus 229E PCR Not Detected (Not Detect.); Coronavirus HKU1 PCR Not Detected (Not Detect.); Coronavirus NL63 PCR Not Detected (Not Detect.); Coronavirus OC43 PCR Not Detected (Not Detect.); RSV PCR Not Detected (Not Detect.); Rhino/Enterovirus PCR Not Detected (Not Detect.)
[2025-09-19 14:14] LABS: Influenza A H1 PCR Not Detected (Not Detect.); Influenza A H1-2009 PCR Not Detected (Not Detect.); Influenza A H3 PCR Not Detected (Not Detect.); SARS-CoV-2 PCR Not Detected (Not Detect.)
--- NOTE | 2025-09-21 19:55 | PC.NURSE ---
delayed entry: correction: hydromorphone 4mg was administered for pt on 09/18/2025 @ 0350 per pt request. Pt preffer po than IV medicaion.
== END 2025-09-19 14:51 | disposition home health service (06) | DRG 291 ==
LOC: HO.ED 06:26 → HO.EDOVER 06:27 → HO.ICU 06:32 → HO.IMC 18:01
PROVIDERS: Internal Medicine Hypertension Specialist; Internal Medicine Pulmonary Disease; Admitting Provider Registered Nurse Community Health; Emergency Provider Emergency Medicine; PCP Family Medicine; Visit Provider Internal Medicine
DX: I13.2 Hypertensive heart and chronic kidney disease with heart failure and with stage 5 chronic kidney disease, or end stage renal disease (principal); I50.33 Acute on chronic diastolic (congestive) heart failure; N18.6 End stage renal disease; J96.01 Acute respiratory failure with hypoxia; J18.9 Pneumonia, unspecified organism; N25.81 Secondary hyperparathyroidism of renal origin; I16.1 Hypertensive emergency; D63.1 Anemia in chronic kidney disease; E03.9 Hypothyroidism, unspecified; E11.22 Type 2 diabetes mellitus with diabetic chronic kidney disease; Z20.822 Contact with and (suspected) exposure to COVID-19; Z86.74 Personal history of sudden cardiac arrest; Z79.890 Hormone replacement therapy; Z79.899 Other long term (current) drug therapy
CPT/HCPCS: 36415; 71045; 80048; 80076; 80202; 80307; 82040; 82565; 82803; 82947; 83605; 83735; 83880; 84100; 84484; 85014; 85018; 85025; 85610; 86140; 87040; 87633; 87637; 90999; 93005; 99285; J0131; J0692; J0696; J1171; J1644; J1938; J2305; J3374

== ENCOUNTER → 2025-09-17 01:29 | Outpatient (BNV) | payer MEDICARE, SELFPAY | PROVIDERS: Emergency Provider Emergency Medicine; PCP Family Medicine; Visit Provider Radiology Diagnostic Radiology | DX: R06.02 Shortness of breath (principal) | CPT/HCPCS: 71045 ==

== ENCOUNTER → 2025-09-17 01:29 | Outpatient (BNV) | payer MEDICARE, SELFPAY | PROVIDERS: Admitting Provider Registered Nurse Community Health; Emergency Provider Emergency Medicine; PCP Family Medicine; Visit Provider Internal Medicine | DX: R00.0 Tachycardia, unspecified (principal) | CPT/HCPCS: 93010 ==

== ENCOUNTER → 2025-09-17 06:26 | Outpatient (BNV) | payer MEDICARE, SELFPAY | PROVIDERS: Admitting Provider Registered Nurse Community Health; Emergency Provider Emergency Medicine; PCP Family Medicine; Visit Provider Registered Nurse Community Health | DX: I50.9 Heart failure, unspecified (principal); J96.01 Acute respiratory failure with hypoxia; J81.1 Chronic pulmonary edema; I16.1 Hypertensive emergency | CPT/HCPCS: 99291 ==

== ENCOUNTER → 2025-09-17 06:26 | Outpatient (BNV) | payer MEDICARE, SELFPAY | PROVIDERS: Admitting Provider Registered Nurse Community Health; Emergency Provider Emergency Medicine; PCP Family Medicine; Visit Provider Internal Medicine | DX: J96.01 Acute respiratory failure with hypoxia (principal); I16.1 Hypertensive emergency; N18.6 End stage renal disease; Z99.2 Dependence on renal dialysis | CPT/HCPCS: 99232; 99239; 99499 ==

== ENCOUNTER 2025-10-01 08:56 | Emergency (ER) | payer MEDICARE, SELFPAY ==
--- OUTSIDE RECORDS SUMMARY | 2011-03-28 13:00 | XMS_ITS | Continuity of Care Document ---
Author Organization [facility] cine Address [address] [place] [phone] Phone Care Team Providers Care Human Intelligence Name Role Phone No Information Unavailable Unavailable Advance Directives Directive Yes / No Effective Date File Name No Information Encounters Encounter Description Practice Location Reason(s) For Visit Diagnoses Date Provider [facility], [address] [place] [address], [place], [place], [id number], tel:[phone] [facility] No Information 0201 1 No Information [facility], [address] [place] [address], [id number], tel:[phone] [facility] Migraine, unspecified without mention of intractable migraineIron deficiency anemia, unspecifiedDiabetes mellitus without mention of complicationUnspecified acquired hypothyroidismUnspecified arthropathyBenign essential hypertension Sep-2 3200 9 Silk Shahab. [address] [place] [address], [place], [place], [id number], . tel:[phone] Family History Family Member Type Diagnosis Age At Onset No Information Payers Payer name Insurance type Covered alliance party ID Authoriza tion(s) No Information Social History Type Description Quantity Date Captured Comments Sex Male Smoking Status No Information Chief Complaint And Reason For Visit No Information History Of Present Illness Encounter Date Complaint History Of Prese nt Illness No Information Instructions Date Instruction Additional Infor mation No Information Assessments Type Assessment Date No Information
--- NOTE | ~2025-10-01 | XR_ITS ---
CLINICAL HISTORY: sob 2 view chest x-ray Comparison: 01/23/2020 Findings: Small subsegmental right midlung atelectasis/infiltrate. Heart size is normal. No acute fracture. New blunting of left posterior costophrenic recess. Effusion cannot be excluded. IMPRESSION: Small subsegmental right midlung atelectasis/infiltrate. New blunting of left posterior costophrenic recess. Effusion cannot be excluded. This document has been electronically signed by: Maria Isabel Meneses MD on 10/01/2025 10:16:52
[2025-10-01 09:11] VITALS: BP 156/72; PULSE 94; RESP 20; TEMP 36.9; O2SAT 97; BMI 24.9
--- NOTE | 2025-10-01 09:15 | ECG_ITS ---
Test Reason : sob Blood Pressure : */* mmHG Vent. Rate : 87 BPM Atrial Rate : 87 BPM P-R Int : 146 ms QRS Dur : 80 ms QT Int : 384 ms P-R-T Axes : 76 14 34 degrees QTcB Int : 462 ms Normal sinus rhythm Nonspecific T wave abnormality Abnormal ECG When compared with ECG of 17-Sep-2025 01:34, ST no longer depressed in Lateral leads Nonspecific T wave abnormality, improved in Lateral leads Referred By: Generic ED Physician Electronically Signed By: LEVI EVANS MD
[2025-10-01 10:12] LABS: COVID-19 Test Negative (Negative); IDNOW Serial# 58CA691E; Influenza B2 Negative (Negative)
--- OUTSIDE RECORDS SUMMARY | 2025-10-01 11:15 | XMS_ITS | Encounter Summary ---
Author Organization [facility], Address [address] [place] [address] Phone Care Team Providers Care Cold Work Operator Name Role Phone Matias Tan MD Primary Care Provider +1- [phone] Reason for Visit * Reason Onset Date Comments Med Refill 07/19/2022 Encounter Details Date Type Department Care Team (Late Contact Info) Description 07/19/2022 Refill [facility] - [facility] [address] [place] [phone] Guanako Mercer MD [address] [place] [phone] Social History Tobacco Use Types Packs/Day Years [...] visit [facility] - [facility] [address] [place] [address] documented as of this encounter Visit Diagnoses Not on filedocumented in this encounter Care Teams Cold Work Operator Relationship Specialty Start Date End Date Matias Tan MD [address] [facility] [place] [address] PCP - General Family Medicine 10/24/19 documented as of this encounter
--- OUTSIDE RECORDS SUMMARY | 2025-10-01 11:15 | XMS_ITS | Encounter Summary ---
Author Organization [facility], Address [address] [place] [address] Phone Care Team Providers Care Director Child Abuse Therapy Name Role Phone Matias Tan MD Primary Care Provider +1- [phone] Reason for Visit * Reason Onset Date Comments Med Refill 06/24/2022 Encounter Details Date Type Department Care Team (Late st Contact Info) Description 06/24/2022 Refill [facility], [address] [place] [phone] Guanako Mercer MD [address] [place] [phone] Social History Tobacco Use Types Packs/Day Years [...] visit [facility] [address] [place] [address] documented as of this encounter Visit Diagnoses Not on filedocumented in this encounter Care Teams Director Child Abuse Therapy Relationship Specialty Start Date End Date Matias Tan MD [address] [facility] [place] [address] PCP - General Family Medicine 10/24/19 documented as of this encounter
--- OUTSIDE RECORDS SUMMARY | 2025-10-01 11:15 | XMS_ITS | Encounter Summary ---
Author Organization [facility], Address [address] [place] [address] Phone Care Team Providers Care Welt Stitch Cleaner Name Role Phone Matias Tan MD Primary Care Provider +1- [phone] Encounter Details Date Type Department Care Team (Late st Contact Info) Description 01/10/2022 Documentation Only [facility], [address] [place] [phone] [address] [place] [address] Social History Tobacco Use Types [...] visit [facility] - [facility] [address] [place] [address] documented as of this encounter Visit Diagnoses Not on filedocumented in this encounter Care Teams Welt Stitch Cleaner Relationship Specialty Start Date End Date Matias Tan MD [address] [place] [address] PCP - General Family Medicine 10/24/19 documented as of this encounter
--- OUTSIDE RECORDS SUMMARY | 2025-10-01 11:15 | XMS_ITS | Encounter Summary ---
Author Organization [facility], Address [address] [place] [address] Phone Care Team Providers Care Metal Furniture Repairer Name Role Phone Matias Tan MD Primary Care Provider +1- [phone] Reason for Visit * Reason Comments Med Refill Encounter Details Date Type Department Care Team (Late st Contact Info) Description 01/26/2023 Refill [facility] [address] [place] [address] Gabriela Hernandez PA [address] [place] [phone] Social History Tobacco Use Types Packs/Day Years [...] visit [facility] - [facility] [address] [place] [phone] documented as of this encounter Visit Diagnoses Not on filedocumented in this encounter Care Teams Metal Furniture Repairer Relationship Specialty Start Date End Date Matias Tan MD [address] [place] [address] PCP - General Family Medicine 10/24/19 documented as of this encounter
--- OUTSIDE RECORDS SUMMARY | 2025-10-01 11:15 | XMS_ITS | Encounter Summary ---
Author Organization [facility], Address [address] [place] [address] Phone Care Team Providers Care Seal Extrusion Operator Name Role Phone Matias Tan MD Primary Care Provider +1- [phone] Reason for Visit * Reason Comments Med Refill Encounter Details Date Type Department Care Team (Late st Contact Info) Description 09/24/2023 Refill [facility] [address] [place] [address] Denys Mueller MD [address] [place] [address] Social History Tobacco Use Types [...] visit [facility] [place] - [facility] [address] [place] [address] documented as of this encounter Visit Diagnoses Not on filedocumented in this encounter Care Teams Seal Extrusion Operator Relationship Specialty Start Date End Date Matias Tan MD [address] [place] [address] PCP - General Family Medicine 10/24/19 documented as of this encounter
--- OUTSIDE RECORDS SUMMARY | 2025-10-01 11:15 | XMS_ITS | Encounter Summary ---
Author Organization [facility] [place], Address [address] [place] [address] Phone Care Team Providers Care Hay Buckler Name Role Phone Matias Tan MD Primary Care Provider +1- [phone] Reason for Visit * Reason Comments Med Refill Encounter Details Date Type Department Care Team (Late st Contact Info) Description 07/17/2022 Refill [facility] - V[facility] Access Center [address] [place] [phone] Guanako Mercer MD [address] [place] [address] Social History Tobacco Use Types Packs/Day Years [...] visit [facility] [place] - [facility] [address] [place] [address] documented as of this encounter Visit Diagnoses Not on filedocumented in this encounter Care Teams Hay Buckler Relationship Specialty Start Date End Date Matias Tan MD [address] [place] [address] PCP - General Family Medicine 10/24/19 documented as of this encounter
--- OUTSIDE RECORDS SUMMARY | 2025-10-01 11:15 | XMS_ITS | Encounter Summary ---
Author Organization [facility] [place], Address [address] [place] [address] Phone Care Team Providers Care Duplicating Machine Mechanic Name Role Phone Matias Tan MD Primary Care Provider +1- [phone] Reason for Visit * Reason Onset Date Comments Med Refill 06/08/2022 Encounter Details Date Type Department Care Team (Late st Contact Info) Description 06/08/2022 Refill [facility], [address] [place] [phone] Guanako Mercer MD [address] [place] [address] Social History Tobacco Use Types Packs/Day Years [...] visit [facility] - [facility] [address] [place] [address] documented as of this encounter Visit Diagnoses Not on filedocumented in this encounter Care Teams Duplicating Machine Mechanic Relationship Specialty Start Date End Date Matias Tan MD [address] [address] PCP - General Family Medicine 10/24/19 documented as of this encounter
--- OUTSIDE RECORDS SUMMARY | 2025-10-01 11:15 | XMS_ITS | Encounter Summary ---
Author Organization [facility], Address [address] [place] [address] Phone Care Team Providers Care Cash Processing Specialist Name Role Phone Matias Tan MD Primary Care Provider +1- [phone] Reason for Visit * Reason Comments Med Refill Encounter Details Date Type Department Care Team (Late st Contact Info) Description 01/26/2023 Refill [facility] [address] [place] [address] Denys Mueller MD [address] [place] [address] Social History Tobacco Use [...] visit [facility] [place] - [facility] [address] [place] [address] documented as of this encounter Visit Diagnoses Not on filedocumented in this encounter Care Teams Cash Processing Specialist Relationship Specialty Start Date End Date Matias Tan MD [address] [place] [address] PCP - General Family Medicine 10/24/19 documented as of this encounter
--- OUTSIDE RECORDS SUMMARY | 2025-10-01 11:15 | XMS_ITS | Encounter Summary ---
Author Organization [facility] [place], Address [address] [place] [address] Phone Care Team Providers Care Lube Worker Name Role Phone Matias Tan MD Primary Care Provider +1- [phone] Reason for Visit * Reason Comments Med Refill Encounter Details Date Type Department Care Team (Late st Contact Info) Description 09/24/2023 Refill [facility] [place] [address] [place] [address] Gabriela Hernandez PA [address] [place] [address] Social History Tobacco Use Types Packs/Day Years [...] visit [facility] - [facility] [address] [place] [address] documented as of this encounter Visit Diagnoses Not on filedocumented in this encounter Care Teams Lube Worker Relationship Specialty Start Date End Date Matias Tan MD [address] [place] [address] PCP - General Family Medicine 10/24/19 documented as of this encounter
--- OUTSIDE RECORDS SUMMARY | 2025-10-01 11:15 | XMS_ITS | Encounter Summary ---
Author Organization [facility] [place], Address [address] [place] [address] Phone Care Team Providers Care Seam Taper Machine Name Role Phone Matias Tan MD Primary Care Provider +1- [phone] Reason for Visit * Reason Onset Date Comments Med Refill 06/20/2022 Encounter Details Date Type Department Care Team (Late st Contact Info) Description 06/20/2022 Refill [facility], [address] [place] [address] Guanako Mercer MD [address] [place] [address] Social History Tobacco Use Types Packs/Day Years [...] visit [facility] [place] - [facility] [address] [place] [address] documented as of this encounter Visit Diagnoses Not on filedocumented in this encounter Care Teams Seam Taper Machine Relationship Specialty Start Date End Date Matias Tan MD [address] [address] PCP - General Family Medicine 10/24/19 documented as of this encounter
--- OUTSIDE RECORDS SUMMARY | 2025-10-01 11:15 | XMS_ITS | Encounter Summary ---
Author Organization [facility] [place], Address [address] [place] [address] Phone Care Team Providers Care Remote Sensing Specialist Name Role Phone Matias Tan MD Primary Care Provider +1- [phone] Reason for Visit * Reason Comments Med Refill Encounter Details Date Type Department Care Team (Late st Contact Info) Description 06/24/2022 Refill [facility] [place], [address] [place] [address] Guanako Mercer MD [address] [facility] [address] [place] [address] Social History Tobacco Use Types Packs/Day Years [...] Vascular Access Center [address] [place] [address] documented as of this encounter Visit Diagnoses Not on filedocumented in this encounter Care Teams Remote Sensing Specialist Relationship Specialty Start Date End Date Matias Tan MD [address] [place] [address] PCP - General Family Medicine 10/24/19 documented as of this encounter
--- OUTSIDE RECORDS SUMMARY | 2025-10-01 11:15 | XMS_ITS | Encounter Summary ---
Author Organization [facility], Address [address] [place] [address] Phone Care Team Providers Care Elevator Mechanic Apprentice Name Role Phone Matias Tan MD Primary Care Provider +1- [phone] Reason for Visit * Reason Onset Date Comments Med Refill 09/24/2022 Encounter Details Date Type Department Care Team (Late st Contact Info) Description 09/24/2022 Refill [facility] - Vascular Access Center [address] [place] [address] Ferdinand Monroe MD [address] [place] [address] Social History Tobacco Use Types Packs/Day Years [...] visit [facility] - [facility] [place] [address] documented as of this encounter Visit Diagnoses Not on filedocumented in this encounter Care Teams Elevator Mechanic Apprentice Relationship Specialty Start Date End Date Matias Tan MD [address] [facility] [place] [address] PCP - General Family Medicine 10/24/19 documented as of this encounter
--- OUTSIDE RECORDS SUMMARY | 2025-10-01 11:15 | XMS_ITS | Encounter Summary ---
Author Organization [facility] [place], Address [address] [place] [address] Phone Care Team Providers Care Community Facilitator Name Role Phone Matias Tan MD Primary Care Provider +1- [phone] Reason for Visit * Reason Comments Med Refill Encounter Details Date Type Department Care Team (Late st Contact Info) Description 05/08/2024 Refill [facility] [place] [address] [place] [address] Gabriela Hernandez PA [address] [place] [address] Social History Tobacco Use Types Packs/Day Years [...] visit [facility] [place] - [facility] Center [address] [place] [phone] documented as of this encounter Visit Diagnoses Not on filedocumented in this encounter Care Teams Community Facilitator Relationship Specialty Start Date End Date Matias Tan MD [address] [place] [address] PCP - General Family Medicine 10/24/19 documented as of this encounter
--- OUTSIDE RECORDS SUMMARY | 2025-10-01 11:15 | XMS_ITS | Encounter Summary ---
Author Organization [facility] [place], Address [address] [place] [address] Phone Care Team Providers Care Senior Compensation Consultant Name Role Phone Matias Tan MD Primary Care Provider +1- [phone] Encounter Details Date Type Department Care Team (Late st Contact Info) Description 03/11/2023 Documentation Only [facility] [address] [place] [phone] Jose Luis Amezcua MD Social History Tobacco [...] visit [facility] Vascular Access Center [address] [place] [address] documented as of this encounter Visit Diagnoses Not on filedocumented in this encounter Care Teams Senior Compensation Consultant Relationship Specialty Start Date End Date Matias Tan MD [facility] [address] [place] [address] PCP - General Family Medicine 10/24/19 documented as of this encounter
--- OUTSIDE RECORDS SUMMARY | 2025-10-01 11:15 | XMS_ITS | Encounter Summary ---
Author Organization [facility], Address [address] [place] [address] Phone Care Team Providers Care Quality Specialist Name Role Phone Matias Tan MD Primary Care Provider +1- [phone] Reason for Visit * Reason Comments Med Refill Encounter Details Date Type Department Care Team (Late st Contact Info) Description 09/25/2023 Refill [facility] [address] [place] [address] Denys Mueller MD [address] [place] [address] Social History Tobacco Use Types [...] visit [facility] [place] - [facility] Center [address] [place] [address] documented as of this encounter Visit Diagnoses Not on filedocumented in this encounter Care Teams Quality Specialist Relationship Specialty Start Date End Date Matias Tan MD [address] [place] [address] PCP - General Family Medicine 10/24/19 documented as of this encounter
--- OUTSIDE RECORDS SUMMARY | 2025-10-01 11:15 | XMS_ITS | Encounter Summary ---
Author Organization [facility] [place], Address [address] [place] [address] Phone Care Team Providers Care Methods Examiner Name Role Phone Matias Tan MD Primary Care Provider +1- [phone] Reason for Visit * Reason Onset Date Comments Med Refill 12/23/2022 Encounter Details Date Type Department Care Team (Late st Contact Info) Description 12/23/2022 Refill [facility] - Vascular Access Center [address] [place] [address] Ferdinand Monroe MD [address] [place] [address] Social History Tobacco Use Types Packs/Day Years [...] visit [facility] [place] - [facility] Center [address] [place] [address] [place] [address] documented as of this encounter Visit Diagnoses Not on filedocumented in this encounter Care Teams Methods Examiner Relationship Specialty Start Date End Date Matias Tan MD [address] [facility] [place] [address] PCP - General Family Medicine 10/24/19 documented as of this encounter
--- OUTSIDE RECORDS SUMMARY | 2025-10-01 11:15 | XMS_ITS | Encounter Summary ---
Author Organization [facility] [place], Address [address] [place] [address] Phone Care Team Providers Care Warp Tension Tester Name Role Phone Matias Tan MD Primary Care Provider +1- [phone] Reason for Visit * Reason Onset Date Comments Med Refill 07/01/2024 Encounter Details Date Type Department Care Team (Late st Contact Info) Description 07/01/2024 Refill [facility], - Vascular Access Center [address] [place] [address] Dale Lema MD [address] [place] [address] Social History Tobacco Use Types Packs/Day Years [...] visit [facility] [place] - [facility] Center [address] [place] [address] documented as of this encounter Visit Diagnoses Not on filedocumented in this encounter Care Teams Warp Tension Tester Relationship Specialty Start Date End Date Matias Tan MD [address] [place] [address] PCP - General Family Medicine 10/24/19 documented as of this encounter
--- OUTSIDE RECORDS SUMMARY | 2025-10-01 11:16 | XMS_ITS | Clinical Summary ---
Author Organization [facility], Address [address] [place] [address] Phone Care Team Providers Care Oil Laboratory Analyst Name Role Phone Matias Tan MD Primary Care Provider +1- [phone] Allergies Active Allergy Reactions Criticality Noted Date [...] Encounters Date Type Department Care Team Description 09/27/2025 Orders Only [facility] [place], [address] [place] [address] Denys Mueller MD 09/27/2025 Treatment [facility] [place], [address] [place] [address] Tiffani Olson FNP-C End stage renal disease; Dependence on renal dialysis 09/20/2025 Orders Only [facility] [place] [address] [place] [address] Denys Mueller MD 09/20/2025 Treatment [facility] [place], [address] [place] [address] Tiffani Olson FNP-C End stage renal disease; Dependence on renal dialysis 09/12/2025 Orders Only [facility] [place] [address] [place] [address] Denys Mueller MD 09/06/2025 Orders Only [facility] [address] [address] Denys Mueller MD 09/06/2025 Treatment [facility] [place] [address] [place] [address] Tiffani Olson, MECHANICAL INTEGRITY SPECIALIST-C End stage renal disease; Dependence on renal dialysis 08/30/2025 Orders Only [facility] [address] [address] Denys Mueller MD 08/30/2025 Treatment [facility] [place] [address] [place] [address] Tiffani Olson, MECHANICAL INTEGRITY SPECIALIST-C End stage renal disease; Dependence on renal dialysis 08/23/2025 Orders Only [facility] [address] [address] Denys Mueller MD 08/23/2025 Treatment [facility] [place] [address] [place] [address] Tiffani Olson, MECHANICAL INTEGRITY SPECIALIST-C End stage renal disease; Dependence on renal dialysis 08/18/2025 Treatment [facility] [place] [address] [place] [address] Sawyer Davis MD End stage renal disease; Dependence on renal dialysis 08/16/2025 Orders Only [facility] [address] [address] Denys Mueller MD 08/16/2025 Treatment [facility] [place] [address] [place] [address] Tiffani Olson, MECHANICAL INTEGRITY SPECIALIST-C End stage renal disease; Dependence on renal dialysis 08/09/2025 Orders Only [facility] [address] [address] Denys Mueller MD 08/09/2025 Treatment [facility] [place] [address] [place] [address] Tiffani Olson FNP-C End stage renal disease; Dependence on renal dialysis 08/02/2025 Telephone [facility] [place], - [facility] Center [address] [place] [address] Tanya Chi 08/01/2025 11:00 AM EDT Procedure visit [facility] [place], - [facility] Center [address] [place] [address] Dale Lema MD 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) 07/31/2025 Telephone [facility] [place] - [facility] Center [address] [facility] [place] [phone] Malinda Knowles 07/26/2025 Orders Only [facility] [address] [address] Denys Mueller MD 07/24/2025 Orders Only [facility] [address] [address] Denys Mueller MD 07/19/2025 Orders Only [facility] [address] [address] Denys Mueller MD 07/19/2025 Treatment [facility] [place] [address] [place] [address] Tiffani Olson FNP-Taniya End stage renal disease; Dependence on renal dialysis 07/17/2025 Treatment [facility] [place] [address] [place] [address] Sawyer Davis MD End stage renal disease; Dependence on renal dialysis 07/17/2025 Orders Only [facility] [address] [address] Denys Mueller MD 07/14/2025 Treatment [facility] [place] [address] [place] [address] Tiffani Olson, MECHANICAL INTEGRITY SPECIALIST-Taniya End stage renal disease; Dependence on renal dialysis 07/12/2025 Orders Only [facility] [address] [address] Denys Mueller MD 07/10/2025 Orders Only [facility] [address] [address] Denys Mueller MD 07/07/2025 Orders Only [facility] [address] [address] Denys Mueller MD from Last 3 Months [...] visit [facility] Vascular Access Center [address] [place] [address] [place] [address] Health Maintenance Due Date Last Done Comments [...] history exists Influenza Vaccine (#1) 2025 4, 08/01/2022, 09/09/2021, Additional history exists Pneumococcal Vaccine: 50+ Years Completed 09/09/2021, 09/21/2020, 08/21/2010 Pneumococcal Vaccine: Peds ( 0 to 5 Years) and At-Risk Patients (6 to 49 Years) Discontinued 09/09/2021, 09/21/2020, 08/21/2010 Procedures Procedure Name Priority Date/Time Associated Diagnosis Comments HEMOGLOBIN Routine 09/27/2025 [facility] RESULTS Routine 09/20/2025 HEMOGLOBIN Routine 09/20/2025 POST DIALYSIS BUN Routine 09/20/2025 BUN Routine 09/20/2025 HEMATOLOGY Routine 09/12/2025 IMMUNO CHEMISTRY Routine 09/06/2025 [...] 07/07/2025 HEMATOLOGY Routine 07/07/2025 CHEMISTRY Routine 07/07/2025 SPECIAL CHEMISTRY Routine 05/04/2024 from Last 3 Months or Most Recently Relevant to Health Maintenance Results * (ABNORMAL) Hemoglobin (09/27/2025) Only the most recent of2 resultswithin the time period is included. Hemoglobin 10.6(L) 13.2 - 14.0 g/dL [facility] 09/27/2025 09/26/2025 8:4 2 AM EST Narrative Resulting Agency Comment Performing Organization Information: Site ID: [id number] Name: [facility] Address: [address] [place] [id number] Director: Az Ospina Denys Mueller MD LAB BLOOD ORDERABLES Final Re sult [facility] [address] [place] [address] * [facility] Lab Results (09/20/2025) Only the most recent of3 resultswithin the time period is included. spKt/V (Daugirdas II) 1.99 [facility] nPCR_HD 1.20 Knowledge Center spKt/V Gotch 2.02 Knowled ge Center eKt/V (Tattersall) 1.74 Knowledge Center WSTDKT/V 1.8 Knowledge Center PCR 70.99 Knowledge Center eKdrt/V 1.75 [facility] eNPCR 1.13 [facility] eKt/V [facility]ch 1.[facility] 09/20/2025 09/20/2025 [facility] [place]ing Provider LAB BLOOD ORDERABLES Final Result Performing Organization Address City/[facility]/ZIP Co de Phone Number [facility] Center Contact Performing lab Unknown, [place] * Post Dialysis BUN (09/20/2025) BUN Post Dialysis 12 7 - 25 mg/dL [facility] 09/20/2025 09/19/2025 12: 55 PM EST Narrative Resulting Agency Comment Performing Organization Information: Site ID: [id number] Name: [facility] Address: [address] [place] [address] Director: Az Ospina Denys Mueller MD LAB BLOOD ORDERABLES Final Re sult [facility] [address] [place] [address] * (ABNORMAL) BUN (09/20/2025) BUN 62(H) 7 - 25 mg/dL [facility] 09/20/2025 09/19/2025 12: 55 PM EST Narrative Resulting Agency Comment Performing Organization Information: Site ID: [id number] Name: [facility] Address: [address] [place] [phone] Director: Az Ospina Denys Mueller MD LAB BLOOD ORDERABLES Final Re sult Performing Organization Address City/[facility] Co de Phone Number [facility] [address] [place] [address] * (ABNORMAL) HEMATOLOGY (09/12/2025) Only the most recent of11 resultswithin the time period is included. Hemoglobin 10.5(L) 14.0 - 18.0 g/dL [facility] Hemoglobin x 3 31.5(L) 42.0 - 54.0 % [facility] 09/12/2025 09/13/2025 7:5 5 AM EST Narrative [facility] - 09/13/2025 Unless otherwise specified, test(s) performed at: [facility], [address] [place] [address] DRAFTER MECHANICAL: Blane Ramsay M.D. For any questions, please call customer service at FREQUENCY:OTHER Resulting Agency Comment Specimen source: Blood Denys Mueller MD LAB BLOOD ORDERABLES Final Re sult Performing Organization Address City/[facility]/ZIP Co de Phone Number [facility] See order comments or contact performing lab Unknown, [place] * IMMUNO CHEMISTRY (09/06/2025) Only the most recent of3 resultswithin the time period is included. Pathologist [facility] Hep B Surface Ag Negative Negative [facility] 09/06/2025 09/08/2025 8:0 8 AM EST Narrative [facility] - 09/08/2025 Unless otherwise specified, test(s) performed at: [facility], [address] [place] [id number] DRAFTER MECHANICAL: Blane Ramsay M.D. For any questions, please call customer service at FREQUENCY:MONTHLY Resulting Agency Comment Specimen source: Serum Denys Mueller MD LAB BLOOD ORDERABLES Final Re sult Performing Organization Address [facility] de Phone Number [facility] See order comments or contact performing lab Unknown, [place] * (ABNORMAL) [facility] Chemistry (09/06/2025) Only the most recent of13 resultswithin the time period is included. PTH 271(H) 16 - 80 pg/mL [facility] 09/06/2025 09/08/2025 7:3 2 AM EST Narrative [facility] - 09/08/2025 Unless otherwise specified, test(s) performed at: [facility], [address] [place] [id number] DRAFTER MECHANICAL: Blane Ramsay M.D. For any questions, please call customer service at FREQUENCY:MONTHLY Resulting Agency Comment Specimen source: Plasma Denys Mueller MD LAB BLOOD ORDERABLES Final Re sult Performing Organization Address [facility] de Phone Number [facility] See order comments or contact performing lab Unknown, [place] * HD KINETICS (08/23/2025) Only the most recent of2 resultswithin the time period is included. % Urea Reduction 78 65 - 80 % [facility] 08/23/2025 08/25/2025 1:5 5 PM EST Narrative Resulting Agency Comment Specimen source: Plasma Denys Mueller MD LAB BLOOD ORDERABLES Final Re sult Performing Organization Address [facility] de Phone Number [facility] See order comments or contact performing lab Unknown, [place] * POST CHEMISTRY (08/23/2025) Only the most recent of2 resultswithin the time period is included. BUN Post Dialysis 11 6 - 19 mg/dL [facility] 08/23/2025 08/25/2025 1:5 5 PM EST Narrative [facility] - 08/25/2025 Unless otherwise specified, test(s) performed at: [facility], [address] [place] [id number] DRAFTER MECHANICAL: Blane Ramsay M.D. For any questions, please call customer service at FREQUENCY:OTHER Resulting Agency Comment Specimen source: Plasma Denys Mueller MD LAB BLOOD ORDERABLES Final Re sult Performing Organization Address [facility] Co de Phone Number [facility] See order comments or contact performing lab Unknown, [place] * SPECIAL CHEMISTRY (05/04/2024) Hemoglobin A1C 5.1 4.8 - 5.9 % [facility] 05/04/2024 05/05/2024 9:5 7 AM EDT Narrative [facility] - 05/05/2024 Unless otherwise specified, test(s) performed at: [facility], [address] [place] [id number] DRAFTER MECHANICAL: Blane Ramsay M.D. For any questions, please call customer service at FREQUENCY:MONTHLY Resulting Agency Comment Specimen source: Blood Denys Mueller MD LAB BLOOD BANK TEST ORDERABLE S Final Result Performing Organization Address [facility] de Phone Number [facility] See order comments or contact performing lab Unknown, [place] from Last 3 Months or Most Recently Relevant to Health Maintenance Insurance Medicare [facility] Medicare [facility] Care Teams Oil Laboratory Analyst Relationship Specialty Start Date End Date Matias Tan MD [address] [place] [address] PCP - General Family Medicine 10/24/19
--- OUTSIDE RECORDS SUMMARY | 2025-10-01 11:16 | XMS_ITS | Encounter Summary ---
Author Organization [facility] [place], Address [address] [place] [address] Phone Care Team Providers Care Charge Poster Name Role Phone Matias Tan MD Primary Care Provider +1- [phone] Encounter Details Date Type Department Care Team (Late st Contact Info) Description 09/27/2025 Treatment [facility] [place], [address] [place] [phone] Tiffani Olson FNP-C [address] [place] [address] End stage renal disease; Dependence on renal [...] Dialysis Note - Tiffani Olson FNP-C - 09/27/2025 12:00 AM EST Patient: Emma Wick, 1955, 70y, M Dialysis Location: [facility] Attending Associate Vice President: Denys Mueller Service Date: 09/27/2025 Service Provider: Tiffani Olson NP I met face to face with the patient today. OVERVIEW The patient presented with ESRD on dialysis Primary cause of renal failure: Type 2 diabetes mellitus with diabetic chronic kidney disease LAST HOSPITALIZATION Discharge Diagnosis: J96.01 Acute respiratory failure with hypoxia Admission Date 09/17/25 Discharge Date 09/19/25 DIALYSIS PRESCRIPTION IHD 3x Week Start date: 09/29/25 Dialyzer: FX CorAL 60 BFR: 450 DFR: Manual 800 Potassium: 2.0 Sodium: 138 EDW: 66 Duration: 4:00 Calcium: 2.50 Bicarb: 36 Rx updated on: 09/27/2025 TREATMENT ASSESSMENT BP Sit Pre 09/27/2025: 147/81 09/25/2025: 119/64 09/22/2025: 133/51 BP Sit Post 09/27/2025: 132/66 09/25/2025: 100/56 09/22/2025: 101/50 Prescribed Tx time 09/27/2025: 4:00 09/25/2025: 4:00 09/22/2025: 4:00 Tx Duration 09/27/2025: 4:07 09/25/2025: 4:05 09/22/2025: 3:56 Missed Treatments 0 - last 30 days 0 - last 60 days FLUID ASSESSMENT EDW (kg) 09/27/2025: 65.5 09/25/2025: 65.5 09/22/2025: 65.5 Weight Pre (kg) 09/27/2025: 71.2 09/25/2025: 72.8 09/22/2025: 69.4 Weight Post (kg) 09/27/2025: 67.4 09/25/2025: 68.9 09/22/2025: 65.7 PWV (kg) 09/27/2025: 1.9 09/25/2025: 3.4 09/22/2025: 0.2 UF Rate (mL/kg/hr) 09/27/2025: 13.7 09/25/2025: 13.9 09/22/2025: 14.3 ADEQUACY ASSESSMENT spKt/V, URR 09/20/2025: 1.99, 80.6 08/23/2025: 1.9, 78.0 07/19/2025: 1.86, 79.0 ACCESS ASSESSMENT Access Type: AVGraft Access SubType: Synthetic - Standard (PTFE) Access Status: Active (In Use) - 05/22/2022 Access Location: Left Upper Arm Created: 05/07/2022 Flow 08/04/2025: 1511 07/21/2025: 822 06/19/2025: 1140 ANEMIA ASSESSMENT HGB, TSAT 09/20/2025: 10.6, - 09/12/2025: 10.5, - 09/06/2025: 10.8, 44.0 Ferritin 09/06/2025: 676.0 08/02/2025: 774.0 07/07/2025: 1016.0 Mircera, IVP (mcg) 09/20/2025: 50 09/06/2025: 60 08/23/2025: 60 Iron Sucrose (Venofer) (mg) 07/21/2025: 100 07/19/2025: 100 07/17/2025: 100 BMM ASSESSMENT PTH, Intact 09/06/2025: 271.0 08/02/2025: 222.0 07/07/2025: 336.0 Calcium, Phosphorus 09/06/2025: 9.5, 4.8 08/02/2025: 8.8, 4.2 07/12/2025: -, 4.1 Vitamin D (Calcitriol) Oral (mcg) 09/27/2025: 0.75 09/25/2025: 0.75 09/22/2025: 0.75 NUTRITION ASSESSMENT Potassium, Albumin 09/06/2025: 5.6, 4.4 08/02/2025: 4.7, 4.0 07/31/2025: 4.7, - eNPCR 09/20/2025: 1.13 08/23/2025: 1.01 07/19/2025: 0.83 DIAGNOSIS Chief Complaint: N18.6 End stage renal disease Comments: Patient seen and examined. VSS with no complaints to offer. S1, S2, RRR. LS CTA bilaterally. Access patent. Patient is stable. Patient data updated 09/28/2025 at 9:03 AM Signed By: Tiffani Olson NP on 09/28/2025 9:03:47 AM documented in this encounter Plan of Treatment Upcoming Encounters Date Type Department Care Team (Late st Contact Info) Description 10/31/2025 10:00 AM EST Procedure visit [facility] [place] - [facility] [address] [place] [phone] documented as of this encounter Visit Diagnoses Diagnosis End stage renal disease Dependence on renal dialysis documented in this encounter Care Teams Charge Poster Relationship Specialty Start Date End Date Matias Tan MD [address] [place] [phone] PCP - General Family Medicine 10/24/19 documented as of this encounter
--- OUTSIDE RECORDS SUMMARY | 2025-10-01 11:16 | XMS_ITS | Encounter Summary ---
Author Organization [facility] [place], Address [address] [place] [address] Phone Care Team Providers Care Job Trainer Name Role Phone Matias Tan MD Primary Care Provider +1- [phone] Reason for Visit * Reason Onset Date Comments Med Refill 12/20/2022 Encounter Details Date Type Department Care Team (Late st Contact Info) Description 12/20/2022 Refill [facility] - Vascular Access Center [address] [place] [address] Kb Sung MD Social History Tobacco Use [...] documented as of this encounter Functional Status documented as of this encounter Plan of Treatment Upcoming Encounters Date Type Department Care Team (Late st Contact Info) Description 10/31/2025 10:00 AM EST Procedure visit [facility] [place] - [facility] Center [address] [place] [phone] documented as of this encounter Visit Diagnoses Not on filedocumented in this encounter Care Teams Job Trainer Relationship Specialty Start Date End Date Matias Tan MD [address] [facility] [place] [phone] PCP - General Family Medicine 10/24/19 documented as of this encounter
--- OUTSIDE RECORDS SUMMARY | 2025-10-01 11:16 | XMS_ITS | Encounter Summary ---
Author Organization [facility] [place], Address [address] [place] [address] Phone Care Team Providers Care Hoop Punch Operator Helper Name Role Phone Matias Tan MD Primary Care Provider +1- [phone] Reason for Visit * Reason Onset Date Comments Med Refill 12/20/2022 Encounter Details Date Type Department Care Team (Late st Contact Info) Description 12/20/2022 Refill [facility] - Vascular Access Center [address] [place] [address] Kb Sung MD Social History Tobacco Use [...] [facility] [place] - [facility] Center [address] [place] [phone] documented as of this encounter Visit Diagnoses Not on filedocumented in this encounter Care Teams Hoop Punch Operator Helper Relationship Specialty Start Date End Date Matias Tan MD [address] [facility] [place] [phone] PCP - General Family Medicine 10/24/19 documented as of this encounter
--- OUTSIDE RECORDS SUMMARY | 2025-10-01 11:16 | XMS_ITS | Encounter Summary ---
Author Organization [facility] [place], Address [address] [place] [address] Phone Care Team Providers Care It Trainee Name Role Phone Matias Tan MD Primary Care Provider +1- [phone] Reason for Visit * Reason Comments Med Refill Encounter Details Date Type Department Care Team (Late st Contact Info) Description 11/28/2022 Refill [facility] [address] [place] [address] Guanako Mercer MD [address] [place] [address] Social History Tobacco Use Types [...] visit [facility] [place] - [facility] Center [address] [place] [address] documented as of this encounter Visit Diagnoses Not on filedocumented in this encounter Care Teams It Trainee Relationship Specialty Start Date End Date Matias Tan MD [address] [facility] [place] [address] PCP - General Family Medicine 10/24/19 documented as of this encounter
--- OUTSIDE RECORDS SUMMARY | 2025-10-01 11:16 | XMS_ITS | Encounter Summary ---
Author Organization [facility] [place], Address [address] [place] [address] Phone Care Team Providers Care Fifth Grade Teacher Name Role Phone Matias Tan MD Primary Care Provider +1- [phone] Encounter Details Date Type Department Care Team (Late st Contact Info) Description 09/27/2025 Orders Only [facility] [place], [address] [place] [address] Denys Mueller MD [address] [place] [address] [place] [address] Social History Tobacco Use Types [...] visit [facility] [place] - V[facility] Access Center [address] [place] [address] documented as of this encounter Procedures Procedure Name Priority Date/Time Associated Diagnosis Comments HEMOGLOBIN Routine 09/27/2025 documented in this encounter Results * (ABNORMAL) Hemoglobin (09/27/2025) Hemoglobin 10.6(L) 13.2 - 14.0 g/dL [facility] 09/27/2025 09/26/2025 8:4 2 AM EST Narrative Resulting Agency Comment Performing Organization Information: Site ID: [id number] Name: [facility] Address: [address] [place] [phone] Director: Az Ospina us Denys Mueller MD LAB BLOOD ORDERABLES Final Re sult [facility] [address] [place] [address] documented in this encounter Visit Diagnoses Not on filedocumented in this encounter Care Teams Fifth Grade Teacher Relationship Specialty Start Date End Date Matias Tan MD [address] [facility] [place] [address] PCP - General Family Medicine 10/24/19 documented as of this encounter
--- OUTSIDE RECORDS SUMMARY | 2025-10-01 11:16 | XMS_ITS | Encounter Summary ---
Author Organization [facility] [place], Address [address] [place] [address] Phone Care Team Providers Care Manager Of Financial Reporting Name Role Phone Matias Tan MD Primary Care Provider +1- [phone] Encounter Details Date Type Department Care Team (Late st Contact Info) Description 02/02/2024 Documentation Only [facility] [place], [address] [place] [phone] [address] [place] [address] Social History Tobacco Use Types [...] visit [facility] [place] - V[facility] Access Center [address] [place] [address] documented as of this encounter Visit Diagnoses Not on filedocumented in this encounter Care Teams Manager Of Financial Reporting Relationship Specialty Start Date End Date Matias Tan MD [address] [place] [address] PCP - General Family Medicine 10/24/19 documented as of this encounter
--- OUTSIDE RECORDS SUMMARY | 2025-10-01 11:16 | XMS_ITS | Encounter Summary ---
Author Organization [facility], Address [address] [place] [address] Phone Care Team Providers Care Inspector Balance Wheel Motion Name Role Phone Matias Tan MD Primary Care Provider [phone]- [phone] Reason for Visit * Reason Comments Med Refill Encounter Details Date Type Department Care Team (Late st Contact Info) Description 12/28/2024 Refill [facility] [address] [place] [address] Sawyer Davis MD [address] [place] [address] Social History Tobacco Use Types [...] visit [facility] [address] [place] [address] documented as of this encounter Procedures Procedure Name Priority Date/Time Associated Diagnosis Comments HEMATOLOGY Routine 12/28/2024 documented in this encounter Results * (ABNORMAL) HEMATOLOGY (12/28/2024) Hemoglobin 11.5(L) 14.0 - 18.0 g/dL [facility] Hemoglobin x 3 34.5(L) 42.0 - 54.0 % Liquid [facility] 12/28/2024 12/29/2024 9:1 7 AM EDT Narrative [facility] - 12/29/2024 Unless otherwise specified, test(s) performed at: [facility], [address] [place] [address] CUSTOM BOOKBINDER: Blane Ramsay M.D. For any questions, please call customer service at FREQUENCY:OTHER Resulting Agency Comment Specimen source: Blood us Denys Mueller MD LAB BLOOD ORDERABLES Final Re sult [facility] See order comments or contact performing lab [facility], [place] documented in this encounter Visit Diagnoses Not on filedocumented in this encounter Care Teams Inspector Balance Wheel Motion Relationship Specialty Start Date End Date Matias Tan MD [facility] [address] [place] [id number] PCP - General Family Medicine 10/24/19 documented as of this encounter
--- NOTE | 2025-10-01 11:18 | ED.SOB ---
HPI - SOB/Dyspnea General Chief Complaint: Dyspnea Stated Complaint: SOB Time Seen by Provider: 10/01/25 11:12 Source: patient Mode of arrival: ambulatory Limitations: no limitations History of Present Illness ED Provider: DR. Rutledge HPI Narrative: 70-year-old male PMHx hypothyroidism, CHF, anemia, pneumonia, DM, HTN, ESRD on HD last dialysis was on time on Thursday came in today for evaluation of shortness of breath that is started this morning, no coughing, no fever, no chills, patient had multiple episodes of similar symptoms and presentation and usually patient and up to need dialysis. No fever, no chills, no cough. Related Data Home Medications ?Medication ?Instructions ?Recorded ?Confirmed blood sugar diagnostic (FreeStyle 07/11/21 10/30/24 Lite Strips) levothyroxine 137 mcg tablet 137 mcg PO DAILY@0600 07/11/21 09/17/25 pen needle, diabetic 31 gauge x 07/11/21 10/30/2416 (BD Ultra-Fine Short Pen Needle) atorvastatin 40 mg tablet 40 mg PO BEDTIME 02/22/24 09/17/25 alprazolam 0.5 mg tablet 0.5 mg PO BID anxiety attack 04/07/25 09/17/25 alprazolam 2 mg tablet 2 mg PO BID 04/07/25 09/17/25 amlodipine 5 mg tablet 5 mg PO BID 04/07/25 10/01/25 losartan 100 mg tablet 100 mg PO DAILY 04/07/25 10/01/25 hydralazine 50 mg tablet 50 mg PO TID 07/03/25 10/01/25 metoprolol succinate 100 mg 100 mg PO DAILY 07/03/25 10/01/25 tablet,extended release 24 hr sevelamer carbonate 800 mg tablet 1,600 mg PO TIDWM 07/03/25 09/17/25 cholecalciferol (vitamin D3) 50 50 mcg PO DAILY 09/17/25 09/17/25 mcg (2,000 unit) tablet (Vitamin D3) dextroamphetamine-amphetamine 20 1 tab PO BID 09/17/25 09/17/25 mg tablet sodium zirconium cyclosilicate 10 10 g PO SUTUTHSA 09/17/25 09/17/25 gram oral powder packet (Lokelma) Previous Rx's ?Medication ?Instructions ?Recorded hydromorphone 4 mg tablet 4 mg PO Q3H PRN Pain #10 tabs 03/10/25 cefuroxime axetil 250 mg tablet 250 mg PO Q24H #12 tabs 09/19/25 doxycycline monohydrate 100 mg 100 mg PO Q12H #12 caps 09/19/25 capsule Allergies Allergy/AdvReac Type Severity Reaction Status Date / Time Penicillins (PENICILLINS) Allergy Unknown RASH Verified 10/01/25 09:14 tramadol (From ULTRAM) Allergy Unknown RASH Verified 10/01/25 09:14 trazodone (TRAZODONE) Allergy Unknown PRIAPISM Verified 10/01/25 09:14 risperidone (RISPERIDONE) AdvReac Severe dizzy, EPS Verified 10/01/25 09:14 Review of Systems Review of Systems: all other systems are reviewed and are negative Constitutional: Reports as per HPI and Reports no additional constitutional complaints Eyes: Reports as per HPI and Reports no additional eye complaints Reports system reviewed and no additional complaints, except as documented Cardiovascular: Reports as per HPI and Reports no additional cardiovascular complaints Respiratory: Reports as per HPI and Reports no additional respiratory complaints Gastrointestinal: Reports as per HPI and Reports no additional gastrointestinal complaints Genitourinary: Reports no additional female genitourinary complaints Musculoskeletal: Reports no additional musculoskeletal complaints Skin/Breast: Reports system reviewed and no additional complaints, except as docu Psychiatric: Reports no additional psychiatric complaints Endocrine: Reports no additional endocrine complaints Hematologic/Lymphatic: Reports no additional hematologic/lymphatic complaints Allergic/Immunologic: Reports no additional allergic/immunologic complaints Reports system reviewed and no additional complaints, except as documented and Reports Abnormal speech present [facility] Past Medical History Medical History ESRD on dialysis ESRD needing dialysis Hypothyroidism Influenza A CHF (congestive heart failure) Acute anemia Multifactorial gait disorder Pneumonia End stage renal disease on dialysis Occult blood positive stool Anemia Internal jugular vein thrombosis Abnormality of gait ESRD needing dialysis Secondary hyperparathyroidism (of renal origin) Anemia in chronic kidney disease DONIS (acute kidney injury) Diabetes Kidney failure HTN (hypertension) Social History Social History Household Members: Spouse Household Members Other:: 2 Housing: House Are you a primary manager intensive care to a significant other at home: No Do you presently have visiting nurse or other home services: Yes Alcohol intake: former Comment: sitter in place Patient Tobacco Use Status: Never used Tobacco Cigarette Packs Per Day: 0 Cigarettes Per Day: 0 Years Smoked: NA Smoked in Last 30 Days: No e-Cigarette/Vaping Use: Never Used Second Hand Smoke Exposure: No Use of substances other than those prescribed or required for medical reasons: No Advance Directives: Yes Advance Directives on File: Yes Advance Directives Date on File: 09/07/23 service: No Physical Exam Vital Signs: Vital Signs: Last Vital Signs Temp 98.5 F 10/01/25 09:11 Pulse 93 10/01/25 11:30 Resp 18 10/01/25 11:30 BP 172/85 H 10/01/25 11:30 Pulse Ox 98 10/01/25 11:30 O2 Del Method Room Air 10/01/25 11:30 BMI result Body Mass Index 24.9 Vital signs have been reviewed and appear to be correct. Blood pressure elevated. Heart rate normal. Respiratory rate normal. Temperature normal. Oxygen saturation normal. Appearance: Alert. Oriented X3. No acute distress. Head: Normal external exam. Normocephalic. Atraumatic. No Castellano signs noted. No raccoon eyes noted Eyes: PERRLA. EOMI. Conjunctiva and sclera normal. Eyelids normal. ENT: TM's Normal. Pharynx normal. Uvula midline. Moist mucous membranes. No trismus noted. No drooling noted. No muffled voice noted. Neck: Normal inspection. Neck supple. FROM. No adenopathy. Thyroid Normal. No meningeal signs. No neck mass noted. CVS: Normal heart rate and rhythm. Heart sound normal. No murmurs noted. Pulses normal throughout. Respiratory: No respiratory distress. Painless inspiration. Breath sounds normal. No wheezes/rales/rhonchi noted. Chest nontender. No accessory muscle usage noted or decreased air movement noted. Abdomen: Soft and nontender. Bowel sounds normal in all 4 quadrants. No distention noted. No organomegaly noted. No visible injury noted. Back: No CVA tenderness. Full range of motion noted. Skin: Skin warm and dry. Normal skin color. Normal skin turgor. No rashes/lesions/lacerations noted. Extremities: No lower extremity edema. Extremities exhibit normal range of motion. Extremities nontender. Neuro: Oriented X 3. Cranial nerve exam: II-XII are grossly intact No motor deficit. No sensory deficit. Reflexes normal. Course Reevaluation(s) Reevaluation #1: 70-year-old male ESRD on HD last dialysis was yesterday he is due for tomorrow came in with shortness of breath, patient with fluid overload, case discussed with Dr. Quinn from Nephrology who recommended to admit the patient and get him dialyzed tomorrow morning. Lokelma orally for hyperkalemia. Time: 13:27 Medical Decision Making Differential Diagnosis Differential Diagnoses: The differential diagnosis associated with the presentation includes ( Congestive heart failure, volume overload, electrolyte derangement, severe anemia, EKG changes, hyperkalemia) Admission/Observation Consideration of admission/observation: Escalation of care including admission/observation considered Lab Data MDM Lab Attestation statement: I reviewed the patient's lab results. 10/01/25 12:14 10/01/25 12:14 Labs: Lab Results 10/01/25 10/01/25 Range/Units 09:54 12:14 WBC 12.8 H (4.8-10.8) X10*3/uL RBC 3.57 L (4.60-5.80) X10*6/uL Hgb 10.8 L (14.0-18.0) g/dl Hct 32.7 L (42.0-52.0) % MCV 91.6 (80.0-98.0) fL MCH 30.3 (27.0-33.0) pg MCHC 33.0 (31.0-36.0) g/dl RDW 15.7 (11.0-16.0) % Plt Count 192 D (160-400) X10*3/uL MPV 9.5 (9.4-12.4) fL Immature Gran % (Auto) 0.4 (0.0-0.4) % Neut % (Auto) 78.1 H (45-73) % Lymph % (Auto) 7.7 L (20-40) % Dickey % (Auto) 8.3 (2-11) % Eos % (Auto) 5.0 H (0-4) % Baso % (Auto) 0.5 (0-2) % Lymph # (Auto) 1.0 L (1.2-4.9) X10*3/uL Dickey # (Auto) 1.1 (0.1-1.2) X10*3/uL Eos # (Auto) 0.6 H (0.0-0.4) X10*3/uL Baso # (Auto) 0.1 (0.0-0.2) X10*3/uL Abs Immat Gran (auto) 0.05 H (0.00-0.03) X10*3/uL Absolute Neuts (auto) 10.0 H (2.0-8.3) x10*3/uL Absolute Nucleated RBC 0.000 (0.0-0.012) X10*3/uL Nucleated RBC % (auto) 0.0 (0.0-0.2) /100WBC Sodium 136 (135-145) mmol/L Potassium 5.6 H (3.3-5.1) mmol/L Chloride 95 L (96-108) mmol/L Carbon Dioxide 27 (22-29) mmol/L Anion Gap 20 (12-20) BUN 40 H (9-16) mg/dL Creatinine 8.62 H* (0.5-1.4) mg/dL Estim Creat Clear Calc 7.0 Estimated GFR 6 Random Glucose 101 (60-115) mg/dL Calcium 9.3 (8.4-10.2) mg/dL Total Bilirubin 0.7 (0.0-1.0) mg/dL AST 19 (5-37) U/L ALT < 6 (0-40) U/L Alkaline Phosphatase 77 (39-117) U/L Troponin I High Sens 5.1 D (<3.5-35.0) ng/L NT-Pro-B Natriuret Pep 49725.9 H (<300) pg/mL Total Protein 6.7 (6.5-8.0) g/dL Albumin 4.0 (3.5-5.0) g/dL COVID-19 (SUNITHA) Negative (Negative) COVID-19 Clin Com See Note Influenza Type A (SEBLE) Negative (Negative) Influenza Type B (SEBLE) Negative (Negative) Influenza A & B Note See Note Independent Interpretation I performed an independent interpretation of an: EKG ( normal sinus rhythm at 87 beats per minutes, normal axis deviation, normal intervals, no ST-T changes,) Radiology Impression Discussion of test interpretation with radiology: I have reviewed the radiologist's reading. Discharge Plan Discharge Clinical Impression: Congestive heart failure, Acute hyperkalemia Patient Disposition: Admitted As Inpatient Print Language: Greek
[2025-10-01 11:30] VITALS: BP 172/85; PULSE 93; RESP 18; O2SAT 98
--- NOTE | 2025-10-01 11:57 | PC.NURSE ---
Pt very hard stick, awaiting US guided
[2025-10-01 12:19] LABS: MANUAL DIFF FLAG NO
[2025-10-01 12:27] LABS: Hematocrit 32.7 % (42.0-52.0); Hemoglobin 10.8 g/dl (14.0-18.0); Imm Gran Abs Auto 0.05 X10*3/uL (0.00-0.03); Imm Gran Pct Auto 0.4 % (0.0-0.4); Lymphocytes Absolute Auto 1.0 X10*3/uL (1.2-4.9); Mean Corpuscular HGB Conc 33.0 g/dl (31.0-36.0); Mean Corpuscular Hemoglobin 30.3 pg (27.0-33.0); Mean Corpuscular Volume 91.6 fL (80.0-98.0); NRBC Abs Auto 0.000 X10*3/uL (0.0-0.012); NRBC Pct Auto 0.0 /100WBC (0.0-0.2); Platelet Count 192 X10*3/uL (160-400); Red Blood Count 3.57 X10*6/uL (4.60-5.80); White Blood Count 12.8 X10*3/uL (4.8-10.8)
[2025-10-01 12:39] LABS: Alanine Aminotransferase < 6 U/L (0-40); Albumin Level 4.0 g/dL (3.5-5.0); Alkaline Phosphatase 77 U/L (39-117); Anion Gap 20 (12-20); Aspartate Amino Transferase 19 U/L (5-37); Blood Urea Nitrogen 40 mg/dL (9-16); Calcium 9.3 mg/dL (8.4-10.2); Carbon Dioxide 27 mmol/L (22-29); Chloride 95 mmol/L (96-108); Potassium 5.6 mmol/L (3.3-5.1); Sodium 136 mmol/L (135-145); Total Protein 6.7 g/dL (6.5-8.0)
[2025-10-01 12:46] LABS: Troponin-I High Sensitivity 5.1 ng/L (<3.5-35.0)
[2025-10-01 12:50] LABS: Creatinine Clr Calc Pharmacy 7.0; Estimated Glomerular Filt Rate 6
[2025-10-01 15:25] VITALS: BP 170/88; PULSE 75; RESP 18; TEMP 37; O2SAT 96
== END 2025-10-01 15:28 | disposition home or self-care (01) ==
PROVIDERS: Emergency Provider Emergency Medicine; PCP Family Medicine
DX: I13.2 Hypertensive heart and chronic kidney disease with heart failure and with stage 5 chronic kidney disease, or end stage renal disease (principal); E11.22 Type 2 diabetes mellitus with diabetic chronic kidney disease; N18.6 End stage renal disease; E87.5 Hyperkalemia; R06.02 Shortness of breath; Z03.818 Encounter for observation for suspected exposure to other biological agents ruled out; R94.31 Abnormal electrocardiogram [ECG] [EKG]; Z99.2 Dependence on renal dialysis; Z79.899 Other long term (current) drug therapy
CPT/HCPCS: 36415; 71046; 80053; 83880; 84484; 85025; 87502; 87635; 93005; 99283; 99285

== ENCOUNTER → 2025-10-01 09:15 | Outpatient (BNV) | payer MEDICARE, SELFPAY | PROVIDERS: Emergency Provider Emergency Medicine; PCP Family Medicine; Visit Provider Internal Medicine Cardiovascular Disease | DX: R94.31 Abnormal electrocardiogram [ECG] [EKG] (principal); R06.02 Shortness of breath | CPT/HCPCS: 93010 ==